=== PATIENT | female | born 1945 | race Caucasian/White ===

== ENCOUNTER 2020-03-05 11:44 | Outpatient (CLI) | payer MEDICARE, SELFPAY ==
--- NOTE | ~2020-03-05 | MMUS_ITS ---
EXAMINATION: MM diagnostic eda BI w tanja, US breast BI limited HISTORY: Follow-up bilateral breast masses TECHNIQUE: Additional 3-D tomosynthesis images of the breasts were performed and synthetic 2-D images were generated. CAD analysis was submitted and interpreted. High resolution bilateral breast ultraso und was performed. COMPARISON: Comparison to multiple prior studies sequentially, with oldest reviewed study dated 09/2014. FINDINGS: MAMMOGRAPHIC FINDINGS: Breast composed of scattered areas of fibroglandular density. There are no suspicious masses, calcifi cations or architectural distortion in either breast to suggest malignancy. ULTRASOUND: Right breast ultrasound: At 6:00 near the nipple there is a 3 mm cyst. Left breast ultrasound: At 1:00 near the nipple there is a 2 mm cyst. 3:00, 3 cm from the nipple, there is a hypoechoic mass which is slightly irregular, likely due to its superficial location. No significant internal vascular ity. This mass measures 4 x 4 x 3 mm. IMPRESSION: 1. Probable benign left breast mass at 3:00, 3 cm from the nipple. 2. Recommend 6 month follow-up left breast ultrasound BI-RADS category 3, probably benign findings. Reviewed, dictated and finalized at location A. IMPRESSION: 1. Probable benign left breast mass at 3:00, 3 cm from the nipple. 2. Recommend 6 month follow-up left breast ultrasound BI-RADS category 3, probably benign findings.
== END 2020-03-05 11:45 | disposition home or self-care (01) ==
PROVIDERS: PCP Family Medicine; Visit Provider Family Medicine
DX: R92.8 Other abnormal and inconclusive findings on diagnostic imaging of breast (principal)
CPT/HCPCS: 76642; 77062; 77066; G0279

== ENCOUNTER 2020-06-25 08:33 | Outpatient (NON) | payer MEDICARE, SELFPAY ==
[2020-06-25 21:43] LABS: SARS-CoV-2 RNA PCR Negative
== END 2020-06-25 08:34 ==
LOC: ANHCOVIDDT 08:35
PROVIDERS: PCP Family Medicine; Visit Provider Family Medicine
DX: R50.9 Fever, unspecified (principal); Z20.828 Contact with and (suspected) exposure to other viral communicable diseases
CPT/HCPCS: 87635; C9803; U0003

== ENCOUNTER 2020-09-10 12:37 | Outpatient (CLI) | payer MEDICARE, SELFPAY ==
--- NOTE | ~2020-09-10 | US_ITS ---
EXAMINATION: US breast LT limited HISTORY: Six-month follow-up for probably benign left breast mass TECHNIQUE: Limited left breast ultrasound is performed. COMPARISON: 03/05/2020, 02/13/2019 FINDINGS: There is a stable 3 mm round, circumscribed, hypoechoic mass with no posterior features or internal vascularity at the 3:00 location 3 cm from the nipple. There has been no suspicious interval change. IMPRESSION: Probably benign left breast mass. Recommend follow-up targeted left breast ultrasound in six months t o document two years of stability. BI-RADS category 3, probably benign findings. Reviewed, dictated and finalized at location A. OLOGIST IMPRESSION: Probably benign left breast mass. Recommend follow-up targeted left breast ultr asound in six months to document two years of stability. BI-RADS category 3, probably benign findings.
== END 2020-09-10 12:38 | disposition home or self-care (01) ==
PROVIDERS: PCP Family Medicine; Visit Provider Family Medicine
DX: R92.8 Other abnormal and inconclusive findings on diagnostic imaging of breast (principal)
CPT/HCPCS: 76642

== ENCOUNTER 2021-03-22 14:06 | Inpatient (IN) | payer MEDICARE, SELFPAY ==
[2021-03-22] VITALS (20 sets, daily range): BP systolic 84–176; BP diastolic 56–124; PULSE 65–140; RESP 18–41; TEMP 36.5–36.7; O2SAT 96–100; BMI 26.2
--- NOTE | ~2021-03-22 | CT_ITS ---
EXAMINATION: CTA chest PE protocol DATE: 03/23/2021 16:00 INDICATION: Shortness of breath TECHNIQUE: Computed tomography angiography (CTA) of the chest was performed with 100 mL Omnipaque-350 intravenous contrast timed to evaluate the pulmonary arteries. Coronal maximum intensity projection 3D-reconstructions were created by the technologist. The dose-length product (DLP) was 212.61 mGy-cm. Automated exposure control and iterative reconstruction technique were employed. COMPARISON: 08/18/2005 FINDINGS: The pulmonary arteries are well-opacified. No pulmonary embolism is identified. There are s cattered nodules in the lungs measuring 2 to 3 mm. Dependent atelectasis is noted in the lower lung z ones. There is no pleural effusion or pneumothorax. Cardiomegaly is noted. No pathologically enlarged thoracic lymph nodes are identified. There is calcified coronary artery atherosclerosis. There is mi ld thoracic spondylosis. IMPRESSION: 1. No pulmonary embolus identified. 2. Scattered 2 to 3 mm nodules, likely infectious or inflammatory. Reviewed, dictated and finalized at location B.
--- NOTE | ~2021-03-22 | XR_ITS ---
XR chest 1V portable DATE: 03/22/2021 14:57 INDICATION: Respiratory failure TECHNIQUE: Portable upright AP chest on 03/22/2021 at 1453 hours COMPARISON: 08/19/2019 PA and lateral chest FINDINGS: Cardiomegaly. There is pulmonary vascular congestion and redistribution. Jabari B-lines con sistent with pulmonary interstitial edema. Mild prominence of the minor fissure consistent with subpl eural edema. There are bilateral perihilar and lower lung zone infiltrates suggesting pulmonary edema . Pneumonia is not excluded. There is minimal if any pleural effusion. No pneumothorax. Diffuse osteopenia. Bilateral chronic rotator cuff atrophy. IMPRESSION: Congestive heart failure and pulmonary edema Reviewed, dictated and finalized at location A.
--- NOTE | ~2021-03-22 | US_ITS ---
EXAMINATION: US venous doppler [facility] EXAM DATE: 03/23/2021 17:39 INDICATION: History of DVT. TECHNIQUE: Multiple grayscale, color flow and Doppler images of the lower extremity deep venous syste ms bilaterally were obtained and reviewed. Comparison is made to prior examination from 01/22/2018. FINDINGS: Right side: The right common femoral, femoral and profunda veins demonstrate normal color flow, respi ratory variation, augmentation and compressibility. Compressibility, color flow confirmed within the right popliteal, posterior tibial, peroneal, and greater saphenous veins. Left side: The left common femoral, femoral and profunda veins demonstrate normal color flow, respira tory variation, augmentation and compressibility. Compressibility, color flow confirmed within the l eft popliteal, posterior tibial, peroneal, and greater saphenous veins. Resolution of previously seen left soleus thrombus. IMPRESSION: 1. No lower extremity deep venous thrombosis bilaterally. Reviewed, dictated and finalized at location A.
[2021-03-22] MEDS: NITROGLYCERIN OINTMENT 1 INCH DOSE TRANSDERM (14:09)
--- NOTE | 2021-03-22 14:14 | ECG_ITS ---
Measurements Intervals [place] Rate: 90 P: 49 VT: 132 QRS: -20 QRSD: 162 T: 136 QT: 442 QTc: 544 Interpretive Statements SINUS RHYTHM POSSIBLE LEFT ATRIAL ENLARGEMENT LEFT BUNDLE BRANCH BLOCK BASELINE ARTIFACT- II, III, AVR, AVF, V2-V6 ABNORMAL ECG Electronically Signed On 03-22-2021 15:18:42 CDT by Tevin Wong D.O.
--- NOTE | 2021-03-22 14:16 | ED.SOB ---
HPI - SOB/Dyspnea General Chief Complaint: Shortness of Breath/Dyspnea Stated Complaint: SOB Time Seen by Provider: 03/22/21 14:13 History of Present Illness HPI Narrative: History limited by medical condition. Sudden onset of shortness of breath this afternoon. Reportedly found to unresponsive with agonal breathing per EMS. Initial EKG at that time read as V-tach. She had electrical cardioversion resulting in sinus tach. On arrival here she denies any pain. She continues to be in respiratory distress on cpap. Related Data Home Medications Medication Instructions Recorded Confirmed atorvastatin 03/22/21 carvedilol 12.5 mg PO BID 03/22/21 levothyroxine 03/22/21 ramipril 2.5 mg PO DAILY 03/22/21 trazodone 03/22/21 warfarin 03/22/21 warfarin 03/22/21 Allergies Allergy/AdvReac Type Severity Reaction Status Date / Time codeine Allergy Unknown Verified 04/03/17 09:43 hydroxyzine Allergy Unknown SEVERE Verified 03/29/17 09:18 HEADACHE lorazepam Allergy Unknown Verified 04/03/17 09:43 NSAIDS (Non-Steroidal Allergy Unknown Verified 04/03/17 09:42 Anti-Inflamma sumatriptan Allergy Unknown FELT Verified 03/29/17 09:18 HORRIBLE tramadol Allergy Unknown Verified 04/03/17 09:42 Review of Systems Review of Systems: ROS unobtainable: Yes unobtainable due to medical condition Constitutional: Constitutional: Denies fever(s) Cardiovascular: Cardiovascular: Denies chest pain PMFSH Past Medical History Medical History Bipolar disorder Surgical History Surgical History History of orthopedic surgery Family History Family History Father Cerebrovascular accident Hypertension Mother Family history of lung disease Family history of diabetes mellitus in first degree relative Family history of coronary artery disease Sibling Family history of diabetes mellitus in first degree relative Other Family history of alcoholism Family history of arthritis Family history of gout Family history of mental disorder Social History Social History Smoking status: Never smoker Alcohol intake: never Gender identity (if verbalized by the patient): Female Exam Const: General: alert Nutritional Appearance: well nourished Other: Severe respiratory distress HENMT: Other: CPAP in place Eyes: Pupils: Equal, round and reactive pupils present Resp: Effort & Inspection: labored and tachypneic Auscultation: rales bilateral Cardio: Rate: tachycardic GI: GI Palp: Yes Soft to palpation and No Tenderness to palpation present (GI) Skin: General skin exam: normal color Neuro: General: moves all extremities and no focal motor deficits Other: responds appropriately Extrem: General: no edema Course Vital Signs Vital signs: Vital Signs Temperature 36.7 C 03/22/21 13:58 Pulse Rate 140 H 03/22/21 13:58 Respiratory Rate 39 H 03/22/21 13:58 Blood Pressure 176/124 H 03/22/21 13:58 Pulse Oximetry 96 03/22/21 13:58 Temperature 36.7 C 03/22/21 13:58 Pulse Rate 75 03/22/21 16:21 Respiratory Rate 25 H 03/22/21 16:21 Blood Pressure 109/80 03/22/21 16:21 Pulse Oximetry 100 03/22/21 16:21 MDM - SOB/Dyspnea MDM Narrative Medical decision making narrative: She appears to have developed acute respiratory failure due to CHF and possibly reported V-tach. Much improved with BIPAP, Nitro, and rate control. Differential Diagnosis Differential diagnosis: Likely congestive heart failure and community acquired pneumonia Medical Records Attestation: I reviewed the patient's medical records. Lab Data Attestation: I reviewed the patient's lab results. Result diagrams: 03/22/21 14:18 03/22/21 14:18 Labs: Lab Results
[2021-03-22] MEDS: dilTIAZem HCl INJ 25 MG/5 ML VIAL 10 MG IV PUSH (14:21)
[2021-03-22] MEDS: ONDANSETRON INJ 4 MG/2 ML VIAL IV PUSH (14:24)
[2021-03-22 14:25] LABS: Basophils Percent Auto 0.3 % (0.2-1.2); Eosinophils Absolute Auto 0.1 K/mm3 (0-0.3); Eosinophils Percent Auto 1.1 % (0-4.4); Hematocrit 46.2 % (37.0-47.0); Hemoglobin 14.5 g/dL (12.0-15.0); Immature Granulocyte Absolute 0.03 K/mm3 (0.00-0.031); Immature Granulocyte Percent A 0.3 % (0-0.5); Lymphocytes Absolute Auto 3.05 K/mm3 (0.9-3.2); Lymphocytes Percent Auto 29.5 % (18.3-44.2); Mean Corpuscular HGB Conc 31.4 g/dl (32-36); Mean Corpuscular Hemoglobin 32.6 pg (26-34); Mean Corpuscular Volume 103.8 fl (80-100); Mean Platelet Volume 9.5 fl (7.4-10.4); Monocytes Absolute Auto 0.8 K/mm3 (0.1-0.6); Monocytes Percent Auto 8.1 % (2.6-8.5); Neutrophils Absolute Auto 6.3 K/mm3 (1.3-6.7); Neutrophils Percent Auto 60.7 % (45.5-73.1); Platelet Count Result 223 k/mm3 (150-375); Red Blood Count 4.45 M/mm3 (4.2-5.4); Red Cell Distribution Width 12.5 % (11.5-14.5); White Blood Count 10.3 K/mm3 (4.5-10.0)
--- NOTE | 2021-03-22 14:28 | ECG_ITS ---
Measurements Intervals [place] Rate: 138 P: 29 RI: 106 QRS: -10 QRSD: 157 T: 129 QT: 310 QTc: 471 Interpretive Statements ATRIAL FLUTTER/TACHYCARDIA WITH RAPID VENTRICULAR RESPONSE LEFT BUNDLE BRANCH BLOCK BASELINE ARTIFACT- II, III, AVF, V1 ABNORMAL ECG Electronically Signed On 03-24-2021 11:40:25 CDT by Tevin Wong D.O.
[2021-03-22 14:31] LABS: Base Excess ABG -5.3 mEq/l (+/-2.0); Fractional Inspired Oxygen 80 %; HCO3 ABG 23.1 mEq/l (22.0-26.0); Modified Allen's Test Pass; Oxyhemoglobin 97.7 % THb (90.0-100.0); PCO2 ABG 56.5 mmHg (35.0-45.0); PO2 ABG 189.1 mmHg (80.0-100.0); PO2 FiO2 Ratio Arterial Blood 2.36 %; Site Drawn RIGHT RADIAL; pH ABG 7.229 (7.350-7.450)
[2021-03-22 14:32] LABS: Device NON-INVASIVE VENT; Non-Invasive Expiratory Pressure 6 CMH2O; Non-Invasive Inspiratory Pressure 12 CMH2O; Non-Invasive Vent Rate 4 /MIN
[2021-03-22 14:34] LABS: INR 1.1; Partial Thromboplastin Time 21.8 SECONDS (22.3-36.8); Prothrombin Time 13.8 Seconds (11.1-14.7)
[2021-03-22 14:35] LABS: Alanine Aminotransferase 33 U/L (4-35); Albumin Level 4.5 g/dL (3.5-5.1); Alkaline Phosphatase 82 U/L (38-126); Anion Gap 12 mmol/L (8-16); Aspartate Amino Transferase 40 U/L (14-36); Bilirubin,Total 0.6 mg/dL (0.2-1.3); Blood Urea Nitrogen 12 mg/dL (7-17); Calcium 9.3 mg/dL (8.4-10.2); Carbon Dioxide 23 mmol/L (22-30); Chloride 103 mmol/L (98-107); Estimated CRCL calculation 34 ml/min; Estimated Glomerular Filt Rate 44; Glucose 262 mg/dL (65-110); Potassium 4.3 mmol/L (3.4-5.0); Sodium 138 mmol/L (137-145)
[2021-03-22] MEDS: FUROSEMIDE INJ 40 MG/4 ML VIAL IV PUSH (14:40)
[2021-03-22 14:49] LABS: NT Pro B Type Natriuretic Pept 3230 pg/mL (5-100); Troponin I 0.048 ng/mL (0.000-0.034)
--- NOTE | 2021-03-22 15:19 | PC.NURSE ---
Nitro paste removed per EDP verbal order due to hypotension
[2021-03-22] MEDS: ACETAMINOPHEN 500 MG TABLET 1000 MG PO (15:29)
[2021-03-22 18:16] LABS: Troponin I 0.306 ng/mL (0.000-0.034)
--- NOTE | 2021-03-22 20:26 | PM.IMHP ---
H&P: HPI History of Present Illness Date/Time: 03/22/21 20:26Thichio is a 75-year-old female patient who has a past medical history of cardiomyopathy with congestive heart failure. The patient had a sudden onset of shortness of breath this afternoon. Patient was reportedly unresponsive with agonal breathing per EMS. Initially the EKG was read as V-tach. The patient had electrical cardioversion resulting in sinus tachycardia. On arrival to the emergency room she did have any complaints of pain she complained of being short of breath. The patient was placed on a CPAP machine. Her chest x-ray was read as congestive heart failure and pulmonary edema. The patient was given nitroglycerin, diltiazem, Zofran, Lasix, Tylenol and Zofran. Arterial blood gases pH 7.2-9 PO2 was 189 and pCO2 was 56.5. Her blood sugar was 262 and her creatinine 1.2. The patient is being admitted to IMU as observation status on the date of service this is 03/22/2021. Chief Complaint: Respiratory distress Review of Systems Review of Systems: All systems reviewed & are unremarkable except as noted in HPI and below Constitutional: Constitutional: Reports as per HPI and Reports no additional constitutional complaints Eyes: Eyes: Reports as per HPI and Reports no additional eye complaints ENT: Reports system reviewed and no additional complaints, except as documented and Reports Normal hearing present Cardiovascular: Cardiovascular: Reports no additional cardiovascular complaints Respiratory: Respiratory: Reports no additional respiratory complaints and Reports no additional respiratory complaints Gastrointestinal: Gastrointestinal: Reports as per HPI and Reports no additional gastrointestinal complaints Musculoskeletal: Musculoskeletal: Reports no additional musculoskeletal complaints Integumentary/Breasts: Skin/Breast: Reports system reviewed and no additional complaints, except as docu and Reports as per HPI Neurologic: Reports system reviewed and no additional complaints, except as documented, Reports as per HPI and Reports Normal hearing present Psychiatric: Psychiatric: Reports no additional psychiatric complaints and Reports as per HPI Endocrine: Endocrine: Reports no additional endocrine complaints Hematologic/Lymphatic: Hematologic/Lymphatic: Reports no additional hematologic/lymphatic complaints Allergic/Immunologic: Allergic/Immunologic: Reports no additional allergic/immunologic complaints [facility] Past Medical History Medical History (Updated 03/22/21 @ 20:49 by Beulah Go NP) Bipolar disorder Cardiomyopathy History of DVT (deep vein thrombosis) Hyperlipidemia Hypertension Hypothyroidism TIA (transient ischemic attack) Surgical History Surgical History (Updated 03/22/21 @ 20:34 by Beulah Go NP) H/O cardiac catheterization History of knee replacement bilaterally History of orthopedic surgery History of partial hysterectomy S/P colon resection S/P rotator cuff repair left shoulder Family History Family History Father Cerebrovascular accident Hypertension Mother Family history of lung disease Family history of diabetes mellitus in first degree relative Family history of coronary artery disease Sibling Family history of diabetes mellitus in first degree relative Other Family history of alcoholism Family history of arthritis Family history of gout Family history of mental disorder Social History Social History (Updated 03/22/21 @ 20:35 by Beulah Go NP) Social History: the patient is . The patient has 1 child. She is retired from the [employer]. The patient is listed as a full code and her child is a durable power health care attorney for healthcare. The patient's lifelong nonsmoker. She does not use any alcohol marijuana or illicit drugs. Smoking status: Never smoker Alcohol intake: never Gender identity (if verbalized by the patient):
[2021-03-22 21:07] LABS: INR 1.1; Prothrombin Time 14.3 Seconds (11.1-14.7)
[2021-03-22 21:27] LABS: Hemoglobin A1C 5.2 % (<5.7)
[2021-03-22] MEDS: ACETAMINOPHEN 325 MG TABLET 650 MG PO (22:13)
[2021-03-22] MEDS: traZODone HCL 50 MG TABLET 150 MG PO (22:14)
[2021-03-22] MEDS: clonazePAM (*CRX) 0.5 MG TABLET 1 MG PO (22:14)
[2021-03-22] MEDS: carvediloL 12.5 MG TABLET PO (22:14)
[2021-03-22] MEDS: WARFARIN (*PBKC) 3 MG TABLET PO (22:14)
[2021-03-22] MEDS: ATORVASTATIN 40 MG TABLET PO (22:14)
[2021-03-22] MEDS: ENOXAPARIN 80 MG/0.8 ML SYRINGE 71 MG SUB-Q (22:15)
[2021-03-22 23:17] LABS: Troponin I 0.223 ng/mL (0.000-0.034)
[2021-03-23] VITALS (17 sets, daily range): BP systolic 102–140; BP diastolic 51–68; PULSE 50–80; RESP 13–18; TEMP 36.2–36.9; O2SAT 93–100
--- NOTE | 2021-03-23 | ECHO_ITS ---
Patient Info Name: Yi Martino Age: 75 years : 1945 Gender: Female Ht: 65 in Wt: 157 lbs BSA: 1.82 m2 HR: 54 bpm BP: 102 / 51 mmHg Technical Quality: Good Exam Date: 03/23/2021 8:28 AM Exam Location: [facility] Patient Status: Inpatient Admit Date: 03/22/2021 Staff Ordering Physician: Beulah Go NP Asphalt Surface Heater Operator: García De La Rosa RDCS, RT Attending Provider: Vinny Santamaria MD Referring Physician: Abbi BARKER; Exam Type: CA echo doppler color flow Study Info Indications I50.9 - Heart failure, unspecified Complete two-dimensional, color flow and Doppler transthoracic echocardiogram is performed. Strain analysis performed. Summary 1. Complete two-dimensional, color flow and Doppler transthoracic echocardiogram is performed. 2. Mild LV enlargement, moderate LVH; severe global LV systolic dysfunction, ejection fraction about 20-25%; grade 1 diastolic dysfunction with elevated filling pressures. Mild left atrial enlargement. Mild mitral annular calcification, [id number] mitral regurgitation. Aortic valve not well visualized, mild aortic stenosis, calculated valve area 1.8 cm2. Mild TR, mild pulmonary hypertension, RVSP 36 mmHg. Left Ventricle Left ventricular chamber dimension is mildly enlarged. Left ventricular systolic function is severely reduced, estimated at 20-25%. There is moderately increased left ventricular wall thickness. The left ventricular diastolic function is grade I diastolic dysfunction. E/e' 19.0 is elevated. Right Ventricle Right ventricular chamber dimension is normal. Right ventricular systolic function is normal. Left Atria Left atrial chamber dimension is mildly enlarged. Right Atria Right atrial chamber dimension is normal. Aortic Valve The aortic valve is not well visualized. There is mild aortic valve stenosis with a peak velocity of 150 cm/s, mean gradient of 4 mmHg, and aortic valve area of 1.8 cm2. Pulmonic Valve The pulmonic valve is not well visualized. Mitral Valve The mitral valve has normal leaflets. There is mild to moderate mitral valve regurgitation. The mitral valve annulus is mildly calcified. Tricuspid Valve The tricuspid valve leaflets are normal. There is mild tricuspid valve regurgitation. Mild pulmonary hypertension, estimated pulmonary arterial systolic pressure is 36 mmHg. Pericardium/Pleural The pericardium appears epicardial fat pad. Inferior Vena Cava Dilated inferior vena cava with <50% collapse upon inspiration consistent with elevated right atrial pressure, 10 mmHg. Left Ventricular Outflow Tract Name Value Normal LVOT 2D LVOT Diameter 2.0 cm LVOT Doppler LVOT Peak Gradient 3 mmHg LVOT Mean Gradient 2 mmHg LVOT VTI 18 cm LVOT VTI/AV VTI Ratio 0.6 LVOT Stroke Volume 58 ml LVOT CO 3.4 l/min LVOT CI 1.9 l/min/m2 Mitral Valve
[2021-03-23 04:29] LABS: Basophils Percent Auto 0.1 % (0.2-1.2); Eosinophils Absolute Auto 0.1 K/mm3 (0-0.3); Eosinophils Percent Auto 1.1 % (0-4.4); Hematocrit 38.8 % (37.0-47.0); Hemoglobin 12.7 g/dL (12.0-15.0); Immature Granulocyte Absolute 0.01 K/mm3 (0.00-0.031); Immature Granulocyte Percent A 0.1 % (0-0.5); Lymphocytes Percent Auto 34.2 % (18.3-44.2); Mean Corpuscular HGB Conc 32.7 g/dl (32-36); Mean Corpuscular Hemoglobin 33.2 pg (26-34); Mean Corpuscular Volume 101.3 fl (80-100); Mean Platelet Volume 9.2 fl (7.4-10.4); Monocytes Absolute Auto 0.9 K/mm3 (0.1-0.6); Monocytes Percent Auto 11.6 % (2.6-8.5); Neutrophils Absolute Auto 3.9 K/mm3 (1.3-6.7); Neutrophils Percent Auto 52.9 % (45.5-73.1); Platelet Count Result 174 k/mm3 (150-375); Red Blood Count 3.83 M/mm3 (4.2-5.4); Red Cell Distribution Width 12.6 % (11.5-14.5); White Blood Count 7.3 K/mm3 (4.5-10.0)
[2021-03-23 04:40] LABS: Alanine Aminotransferase 28 U/L (4-35); Albumin Level 3.7 g/dL (3.5-5.1); Alkaline Phosphatase 60 U/L (38-126); Anion Gap 8 mmol/L (8-16); Aspartate Amino Transferase 29 U/L (14-36); Bilirubin,Total 0.6 mg/dL (0.2-1.3); Blood Urea Nitrogen 14 mg/dL (7-17); Calcium 9.2 mg/dL (8.4-10.2); Carbon Dioxide 30 mmol/L (22-30); Chloride 100 mmol/L (98-107); Estimated CRCL calculation 33 ml/min; Estimated Glomerular Filt Rate 44; Glucose 90 mg/dL (65-110); Lactate Dehydrogenase 333 U/L (313-618); Potassium 3.5 mmol/L (3.4-5.0); Sodium 138 mmol/L (137-145)
[2021-03-23 04:41] LABS: Lactic Acid Reflex 0.8 mmol/L (0.7-2.1)
[2021-03-23 04:55] LABS: INR 1.2; Prothrombin Time 15.3 Seconds (11.1-14.7)
[2021-03-23] MEDS: LEVOTHYROXINE SODIUM 112 MCG TABLET PO (06:42)
[2021-03-23] MEDS: FUROSEMIDE INJ 40 MG/4 ML VIAL IV PUSH (09:48)
[2021-03-23] MEDS: clonazePAM (*CRX) 0.5 MG TABLET 1 MG PO ×2 (09:48→20:48)
[2021-03-23] MEDS: carvediloL 12.5 MG TABLET PO ×2 (09:48→20:49)
[2021-03-23] MEDS: ENOXAPARIN 80 MG/0.8 ML SYRINGE 71 MG SUB-Q ×2 (14:38→20:44)
[2021-03-23] MEDS: ACETAMINOPHEN 325 MG TABLET 650 MG PO (14:38)
--- NOTE | 2021-03-23 14:49 | PM.IMPN ---
Progress Note: A&P Assessment and Plan (1) Cardiac arrest: Code(s): I46.9 - Cardiac arrest, cause unspecified Status: Acute Assessment and Plan: Patient states she has been having episodes of SOB but felt related to the weather/humidity. On the day of admission, patient developed pre-syncope symptoms, diaphoresis and SOB. She tried to call EMS but that is the last she remembers. She awoke lying on her bed. Her son called EMS at 1319 and they arrived at 1328. Patietn was unresponsive with agonal respirations and cyanotic. No pulse and monitor showing VTach. She underwent cardioversion with 200J. She became alert and responsive and GCS improved from 6 to 11. Given this history, her LBBB and that she has NICMP, suspect she did have a malignant rhythm resulting in her symptoms. Echo showing EF 20-25%, Grade I diastolic dysfunction. Cardiology consulted. Probably would benefit from implantable defibrillator. Continue telemetry. CTA negative for PE. (2) Elevated troponin: Code(s): R77.8 - Other specified abnormalities of plasma proteins Status: Acute Assessment and Plan: Patient's troponin was elevated and peaked at 0.306. No complaints of chest pain. She is known to have clean coronaries by [facility]. Elevated Trop related to the VTach and shock. Check for PE. Continue Lovenox (3) Acute respiratory failure with hypoxia and hypercapnia: Code(s): J96.01 - Acute respiratory failure with hypoxia; J96.02 - Acute respiratory failure with hypercapnia Status: Acute Assessment and Plan: Patietn with SOB but felt related to the VTach. ABG on admission 7./189 NIV. CXR showing CHF and pulmonary edema. Improved. Will wean off BiPAP. (4) CHF (congestive heart failure): Qualifiers: Heart failure chronicity: acute on chronic Heart failure type: combined systolic and diastolic Qualified Code(s): I50.43 - Acute on chronic combined systolic (congestive) and diastolic (congestive) heart failure Code(s): I50.9 - Heart failure, unspecified Status: Acute Assessment and Plan: CXR showing CHF and pulmonary edema. BNP 3230. Unclear if she was in CHF resulting in the respiratory failure and extremis or if the VTach caused the pulmonary edema. Lasix IV started and lung exam improved. Continue to monitor. (5) Hypertension: Qualifiers: Hypertension type: primary hypertension Qualified Code(s): I10 - Essential (primary) hypertension Code(s): I10 - Essential (primary) hypertension Status: Chronic Assessment and Plan: BP 176/124 on admission related to the recent VTach and shock. BP did drop to 84/64 but since, BP has been stable. Ramipril and Coreg have been resumed. Monitor closely (6) Bipolar disorder: Code(s): F31.9 - Bipolar disorder, unspecified Status: Chronic Assessment and Plan: Mood stable. Continue with home Viibryd and clonazepam (7) Hypothyroidism: Qualifiers: Hypothyroidism type: acquired Qualified Code(s): E03.9 - Hypothyroidism, unspecified Code(s): E03.9 - Hypothyroidism, unspecified Status: Chronic Assessment and Plan: TSH normal. Continue with levothyroxine (8) Hyperlipidemia: Code(s): E78.5 - Hyperlipidemia, unspecified Status: Chronic Assessment and Plan: LFTs okay. Continue with atorvastatin (9) Elevated blood sugar: Code(s): R73.9 - Hyperglycemia, unspecified Status: Acute Assessment and Plan: Glucose 212 felt related to the VTach arrest. A1c 5.2. (10) Cardiomyopathy: Code(s): I42.9 - Cardiomyopathy, unspecified Status: Chronic Assessment and Plan: As above. Cardiology has been consulted. (11) History of DVT (deep vein thrombosis): Code(s): Z86.718 - Personal history of other venous thrombosis and embolism Status: Inactive Assessment and Plan
--- NOTE | 2021-03-23 15:06 | PM.CNCAR ---
Assessment and Plan Assessment and plan (1) Cardiac arrest: Code(s): I46.9 - Cardiac arrest, cause unspecified Status: Acute Assessment and Plan: status post cardiac arrest by EMS description ventricular tachycardia with responsiveness promptly status post defibrillation and return of sinus tachycardia. I do not have documented rhythm strip confirmation of ventricular tachycardia nor associated heart rate yet her response to defibrillation and her severe LV dysfunction by echo EF 20-25% strongly corroborates ventricular arrhythmia. Therefore, given severe LV dysfunction consistent with known nonischemic cardiomyopathy and aborted sudden cardiac event presumably secondary to ventricular tachycardia I feel patient will be best served with ICD implantation. Discussed options and anticipated transfer to outside hospital such as [facility] with electrophysiology which would be my preference as she declines transferred to [facility]. We discussed alternatives such as life vest with outpatient referral for ICD, however, I recommend she transfer on an inpatient basis. I would hold warfarin in anticipation for this with continuation of subcutaneous enoxaparin as bridging 1 milligram/kilogram subcutaneous q.12 hours. Pt is in agreement with plan of care. Magnesium 2.0, potassium 4.3 presentation, 3.5 today. Supplement to keep potassium around 4.0. TSH within normal limits. Continue BB, BARBARA-I. If recurrent ventricular arrhythmia, Amiodarone. Discuss with Dr. Ceja as this is his personal patient plan of care. (2) Cardiomyopathy: Code(s): I42.9 - Cardiomyopathy, unspecified Status: Chronic Assessment and Plan: Continue carvedilol 12.5 mg twice daily, Ramipril 2.5 mg daily. Pt was on Lasix 40mg po daily per office note 02/2020. (3) Elevated troponin: Code(s): R77.8 - Other specified abnormalities of plasma proteins Status: Acute Assessment and Plan: Type 2 infarction, normal coronary anatomy by left heart catheterization 2018. Troponin elevation secondary to presumed VT arrest, defibrillation and respiratory distress at presentation Not acute coronary syndrome. Patient hypertensive post defibrillation. (4) Left bundle branch block: Code(s): I44.7 - Left bundle-branch block, unspecified Status: Acute Assessment and Plan: Chronic LBBB, wide QRS. may consider biventricular ICD. (5) Acute respiratory failure with hypoxia and hypercapnia: Code(s): J96.01 - Acute respiratory failure with hypoxia; J96.02 - Acute respiratory failure with hypercapnia Status: Acute Assessment and Plan: CPAP support as warranted. Managed by primary service. Clinically, she does not appear to be in acute decompensated heart failure and I suspect will be able to wean BiPAP fairly promptly. Continue close observation. May transition back to po LAsix in AM depending upon clinical status. (6) Subtherapeutic international normalized ratio (INR): Code(s): R79.1 - Abnormal coagulation profile Status: Acute Assessment and Plan: Subtherapeutic INR 1.2 at presentation, history of DVT. Evaluation for pulmonary embolism with CT angiogram of the chest pending. Although less likely to cause VT arrest prudent to exclude pulmonary embolism. (7) Hypertension: Qualifiers: Hypertension type: primary hypertension Qualified Code(s): I10 - Essential (primary) hypertension Code(s): I10 - Essential (primary) hypertension Status: Chronic Assessment and Plan: Elevated presentation, currently reasonable control overall. Continue medical therapy. (8) Hyperlipidemia: Code(s): E78.5 - Hyperlipidemia, unspecified Status: Chronic Assessment and Plan: Remains on atorvastatin 40 mg at bedtime. History of Present Illness History of Present Illness Consult date/time: date of service:
[2021-03-23] MEDS: POTASSIUM CHLORIDE 20 MEQ TABLET 40 MEQ PO (17:40)
--- NOTE | 2021-03-23 18:30 | PHAR ---
The patient's home meds of Vraylar (cariprazine) 3mg and Viibryd (vilazodone) 20mg (peach tab) have been verified.
[2021-03-23] MEDS: ATORVASTATIN 40 MG TABLET PO (20:48)
[2021-03-23] MEDS: traZODone HCL 50 MG TABLET 150 MG PO (20:48)
[2021-03-23] MEDS: FAMOTIDINE 20 MG TABLET PO (22:43)
[2021-03-24] VITALS (14 sets, daily range): BP systolic 122–131; BP diastolic 45–65; PULSE 51–78; RESP 18–19; TEMP 36.8–37.1; O2SAT 93–100
[2021-03-24 04:51] LABS: Hematocrit 41.3 % (37.0-47.0); Mean Corpuscular HGB Conc 31.5 g/dl (32-36); Mean Corpuscular Hemoglobin 32.3 pg (26-34); Mean Corpuscular Volume 102.5 fl (80-100); Mean Platelet Volume 9.3 fl (7.4-10.4); Platelet Count Result 174 k/mm3 (150-375); Red Blood Count 4.03 M/mm3 (4.2-5.4); Red Cell Distribution Width 12.5 % (11.5-14.5); White Blood Count 7.5 K/mm3 (4.5-10.0)
[2021-03-24 05:03] LABS: INR 1.3; Prothrombin Time 16.1 Seconds (11.1-14.7)
[2021-03-24 05:06] LABS: Albumin Level 3.9 g/dL (3.5-5.1); Anion Gap 4 mmol/L (8-16); Blood Urea Nitrogen 15 mg/dL (7-17); Calcium 9.4 mg/dL (8.4-10.2); Carbon Dioxide 30 mmol/L (22-30); Chloride 105 mmol/L (98-107); Estimated CRCL calculation 35 ml/min; Estimated Glomerular Filt Rate 48; Glucose 92 mg/dL (65-110); Phosphorus 3.6 mg/dL (2.5-4.5); Potassium 4.4 mmol/L (3.4-5.0); Sodium 139 mmol/L (137-145)
[2021-03-24] MEDS: LEVOTHYROXINE SODIUM 112 MCG TABLET PO (06:10)
[2021-03-24] MEDS: carvediloL 12.5 MG TABLET PO ×2 (08:27→20:35)
[2021-03-24] MEDS: clonazePAM (*CRX) 0.5 MG TABLET 1 MG PO ×2 (08:28→20:29)
[2021-03-24] MEDS: ENOXAPARIN 80 MG/0.8 ML SYRINGE 71 MG SUB-Q ×2 (08:29→20:30)
[2021-03-24] MEDS: FUROSEMIDE INJ 40 MG/4 ML VIAL IV PUSH (08:30)
--- NOTE | 2021-03-24 13:28 | PM.PNCARD ---
Progress Note: A&P Assessment and Plan (1) Cardiac arrest: Code(s): I46.9 - Cardiac arrest, cause unspecified Status: Acute Assessment and Plan: status post cardiac arrest by EMS description ventricular tachycardia with responsiveness promptly status post defibrillation and return of sinus tachycardia. I do not have documented rhythm strip confirmation of ventricular tachycardia nor associated heart rate yet her response to defibrillation and her severe LV dysfunction by echo EF 20-25% strongly corroborates ventricular arrhythmia. Therefore, given severe LV dysfunction consistent with known nonischemic cardiomyopathy and aborted sudden cardiac event presumably secondary to ventricular tachycardia I feel patient will be best served with ICD implantation. Discussed options and anticipated transfer to outside hospital such as [facility] with electrophysiology which would be my preference as she declines transferred to [facility]. We discussed alternatives such as life vest with outpatient referral for ICD, however, I recommend she transfer on an inpatient basis. I would hold warfarin in anticipation for this with continuation of subcutaneous enoxaparin as bridging 1 milligram/kilogram subcutaneous q.12 hours. Pt is in agreement with plan of care. Discussed plan of care with patient again today. She continues to be in agreement with transfer to [facility] for EP service/ICD implantation. However, she is concerned she will not have anyone to bring her home from the hospital as the only person available to pick her up is going out of town. She is going to check with another family member for a ride. In the meantime, will send order for LifeVest in case we pursue outpatient EP referral Continue BB, BARBARA-I. If recurrent ventricular arrhythmia, Amiodarone. Monitor electrolytes, daily BMP, magnesium Discuss with Dr. Ceja as this is his personal patient plan of care. (2) Cardiomyopathy: Code(s): I42.9 - Cardiomyopathy, unspecified Status: Chronic Assessment and Plan: Continue carvedilol 12.5 mg twice daily, Ramipril 2.5 mg daily. Pt was on Lasix 40mg po daily per office note 02/2020. (3) Elevated troponin: Code(s): R77.8 - Other specified abnormalities of plasma proteins Status: Acute Assessment and Plan: Type 2 infarction, normal coronary anatomy by left heart catheterization 2017. Troponin elevation secondary to presumed VT arrest, defibrillation and respiratory distress at presentation Not acute coronary syndrome. Patient hypertensive post defibrillation. (4) Left bundle branch block: Code(s): I44.7 - Left bundle-branch block, unspecified Status: Acute Assessment and Plan: Chronic LBBB, wide QRS. may consider biventricular ICD. (5) Acute respiratory failure with hypoxia and hypercapnia: Code(s): J96.01 - Acute respiratory failure with hypoxia; J96.02 - Acute respiratory failure with hypercapnia Status: Acute Assessment and Plan: CPAP support as warranted. Managed by primary service. Clinically, she does not appear to be in acute decompensated heart failure and I suspect will be able to wean BiPAP fairly promptly. Continue close observation. May transition back to po LAsix in AM depending upon clinical status. (6) Subtherapeutic international normalized ratio (INR): Code(s): R79.1 - Abnormal coagulation profile Status: Acute Assessment and Plan: Subtherapeutic INR 1.2 at presentation, history of DVT. Evaluation for pulmonary embolism with CT angiogram of the chest pending. Although less likely to cause VT arrest prudent to exclude pulmonary embolism. (7) Hypertension: Qualifiers: Hypertension type: primary hypertension Qualified Code(s): I10 - Essential (primary) hypertension Code(s): I10 - Essential (primary) hypertension Status: Chronic Assessment and Plan:
--- NOTE | 2021-03-24 16:18 | PM.IMPN ---
Progress Note: A&P Assessment and Plan (1) Cardiac arrest: Code(s): I46.9 - Cardiac arrest, cause unspecified Status: Acute Assessment and Plan: Patient states she has been having episodes of SOB but felt related to the weather/humidity. On the day of admission, patient developed pre-syncope symptoms, diaphoresis and SOB. She tried to call EMS but that is the last she remembers. She awoke lying on her bed. Her son called EMS at 1319 and they arrived at 1328. Patient was unresponsive with agonal respirations and cyanotic. No pulse and monitor showing VTach. She underwent cardioversion with 200J. She became alert and responsive and GCS improved from 6 to 11. Given this history, her LBBB and that she has NICMP, suspect she did have a malignant rhythm resulting in her symptoms. Echo showing EF 20-25%, Grade I diastolic dysfunction. Cardiology consulted and plan for implantable defibrillator. Continue telemetry. (2) Acute respiratory failure with hypoxia and hypercapnia: Code(s): J96.01 - Acute respiratory failure with hypoxia; J96.02 - Acute respiratory failure with hypercapnia Status: Acute Assessment and Plan: Patient with resp failure felt related to the VTach. ABG on admission 7.23/56/189 NIV. CXR showing CHF and pulmonary edema. Improved. Able to wean off BiPAP. (3) Elevated troponin: Code(s): R77.8 - Other specified abnormalities of plasma proteins Status: Acute Assessment and Plan: Patient's troponin was elevated and peaked at 0.306. No complaints of chest pain. She is known to have clean coronaries by [facility]. Elevated Trop related to the VTach and shock c/w nonischemic myocardial injury. CTA negative for PE. LE venous doppler negative for DVT. Continue Lovenox. (4) CHF (congestive heart failure): Qualifiers: Heart failure chronicity: acute on chronic Heart failure type: combined systolic and diastolic Qualified Code(s): I50.43 - Acute on chronic combined systolic (congestive) and diastolic (congestive) heart failure Code(s): I50.9 - Heart failure, unspecified Status: Acute Assessment and Plan: CXR showing CHF and pulmonary edema. BNP 3230. Unclear if she was in CHF resulting in the respiratory failure and extremis or if the VTach caused the pulmonary edema. Lasix IV started with clinical improvement. Continue to monitor. (5) Hypertension: Qualifiers: Hypertension type: primary hypertension Qualified Code(s): I10 - Essential (primary) hypertension Code(s): I10 - Essential (primary) hypertension Status: Chronic Assessment and Plan: BP 176/124 on admission related to the recent VTach and shock. BP did drop to 84/64 but since, BP has been stable. Continue Ramipril and Coreg. Monitor closely (6) Bipolar disorder: Code(s): F31.9 - Bipolar disorder, unspecified Status: Chronic Assessment and Plan: Mood stable. Continue with home Viibryd and clonazepam (7) Hypothyroidism: Qualifiers: Hypothyroidism type: acquired Qualified Code(s): E03.9 - Hypothyroidism, unspecified Code(s): E03.9 - Hypothyroidism, unspecified Status: Chronic Assessment and Plan: TSH normal. Continue with levothyroxine (8) Hyperlipidemia: Code(s): E78.5 - Hyperlipidemia, unspecified Status: Chronic Assessment and Plan: LFTs okay. Continue with atorvastatin (9) Elevated blood sugar: Code(s): R73.9 - Hyperglycemia, unspecified Status: Acute Assessment and Plan: Glucose 212 felt related to the VTach arrest. A1c 5.2. (10) History of DVT (deep vein thrombosis): Code(s): Z86.718 - Personal history of other venous thrombosis and embolism Status: Inactive Assessment and Plan: She patient has a hx of DVT and also with CMP. INR is subtherapeutic therefore patient being bridged with subcu Lovenox. Coumadi
[2021-03-24] MEDS: traZODone HCL 50 MG TABLET 150 MG PO (20:29)
[2021-03-24] MEDS: ATORVASTATIN 40 MG TABLET PO (20:30)
[2021-03-25] VITALS (8 sets, daily range): BP systolic 126–128; BP diastolic 57–68; PULSE 49–68; RESP 17–20; TEMP 36.4–36.9; O2SAT 94–99
[2021-03-25] MEDS: ACETAMINOPHEN 325 MG TABLET 650 MG PO (01:32)
[2021-03-25 05:47] LABS: Anion Gap 9 mmol/L (8-16); Blood Urea Nitrogen 18 mg/dL (7-17); Calcium 9.6 mg/dL (8.4-10.2); Carbon Dioxide 31 mmol/L (22-30); Chloride 97 mmol/L (98-107); Estimated CRCL calculation 33 ml/min; Estimated Glomerular Filt Rate 44; Glucose 94 mg/dL (65-110); Phosphorus 4.4 mg/dL (2.5-4.5); Potassium 3.6 mmol/L (3.4-5.0); Sodium 137 mmol/L (137-145)
[2021-03-25] MEDS: LEVOTHYROXINE SODIUM 112 MCG TABLET PO (05:49)
[2021-03-25] MEDS: ENOXAPARIN 80 MG/0.8 ML SYRINGE 71 MG SUB-Q (08:36)
[2021-03-25] MEDS: FUROSEMIDE INJ 40 MG/4 ML VIAL IV PUSH (08:36)
[2021-03-25] MEDS: carvediloL 12.5 MG TABLET PO (08:37)
[2021-03-25] MEDS: clonazePAM (*CRX) 0.5 MG TABLET 1 MG PO (08:40)
--- NOTE | 2021-03-25 08:46 | P.CDI_ITS ---
CDI Query Clarification Request -Troponin levels 0.048, 0.306, 0.223 -Type 2 infarction, Troponin elevation secondary to presumed VT arrest, defibrillation and respiratory distress at presentation Not acute coronary syndrome and patient denied chest pain.documented by cardiology -You have documented, elevated troponin and Patient's troponin was elevated and peaked at 0.306. No complaints of chest pain. She is known to have clean coronaries by [facility]. Elevated Trop related to the VTach and shock. Please clarify diagnosis: * Type 2 infarction * Non-ischemic myocardial injury * Unable to determine <Paris Garcia RN - Last Filed: 03/25/21 08:52>
--- NOTE | 2021-03-25 08:56 | PM.PNCARD ---
Progress Note: A&P Assessment and Plan (1) Cardiac arrest: Code(s): I46.9 - Cardiac arrest, cause unspecified Status: Acute Assessment and Plan: Status post cardiac arrest by EMS description ventricular tachycardia with responsiveness promptly status post defibrillation and return of sinus tachycardia. I do not have documented rhythm strip confirmation of ventricular tachycardia nor associated heart rate yet her response to defibrillation and her severe LV dysfunction by echo EF 20-25% strongly corroborates ventricular arrhythmia. Therefore, given severe LV dysfunction consistent with known nonischemic cardiomyopathy and aborted sudden cardiac event presumably secondary to ventricular tachycardia I feel patient will be best served with ICD implantation. She has been fitted for LifeVest and referral to EP at [facility] has been sent. Discussed plan with patient again this morning. Answered all questions to patient's satisfaction No further ventricular arrhythmias noted on telemetry. Continue BB, BARBARA-I. KCL 20 mEq x1 for K+ 3.6. Goal to keep K+ close to 4.0. BMP, magnesium Monday (2) Cardiomyopathy: Code(s): I42.9 - Cardiomyopathy, unspecified Status: Chronic Assessment and Plan: Continue carvedilol 12.5 mg twice daily, Ramipril 2.5 mg daily. Pt was on Lasix 40mg po daily per office note 02/2020. (3) Elevated troponin: Code(s): R77.8 - Other specified abnormalities of plasma proteins Status: Acute Assessment and Plan: Type 2 infarction, normal coronary anatomy by left heart catheterization 2017. Troponin elevation secondary to presumed VT arrest, defibrillation and respiratory distress at presentation Not acute coronary syndrome. Patient hypertensive post defibrillation. (4) Left bundle branch block: Code(s): I44.7 - Left bundle-branch block, unspecified Status: Acute Assessment and Plan: Chronic LBBB, wide QRS. may consider biventricular ICD - OP referral to EP has been placed. (5) Acute respiratory failure with hypoxia and hypercapnia: Code(s): J96.01 - Acute respiratory failure with hypoxia; J96.02 - Acute respiratory failure with hypercapnia Status: Acute Assessment and Plan: CPAP support as warranted. Managed by primary service. Clinically, she does not appear to be in acute decompensated heart failure and I suspect will be able to wean BiPAP fairly promptly. Continue close observation. Shifted to oral lasix (6) Subtherapeutic international normalized ratio (INR): Code(s): R79.1 - Abnormal coagulation profile Status: Acute Assessment and Plan: Subtherapeutic INR 1.2 at presentation, history of DVT. CT negative for PE. Warfarin should be resumed upon discharge. INR Monday. (7) Hypertension: Qualifiers: Hypertension type: primary hypertension Qualified Code(s): I10 - Essential (primary) hypertension Code(s): I10 - Essential (primary) hypertension Status: Chronic Assessment and Plan: At goal. (8) Hyperlipidemia: Code(s): E78.5 - Hyperlipidemia, unspecified Status: Chronic Assessment and Plan: Remains on atorvastatin 40 mg at bedtime. Subjective Date/time seen: 03/25/21 08:56 Cardiology follow-up for CHF, VT arrest Date of service 03/25/2021: She is feeling well today. She says that she is tired although she slept well last night. She denies any palpitations, chest pain, shortness of breath. She has been fitted for her life vest and is currently wearing it. Plan is for discharge home today with outpatient referral to electrophysiology at [facility]. Review of Systems Review of Systems: All systems reviewed & are unremarkable except as noted in HPI and below Constitutional: Constitutional: Reports as per HPI, Reports no additional constitutional complaints, Reports fatigue and Reports headache(s) Eyes: Eyes: Reports
--- NOTE | 2021-03-25 10:43 | PM.DS ---
DS: Admitting Diagnosis Admitting Diagnosis Admitting Diagnosis: VTach Arrest DS: Discharge Diagnosis Discharge Diagnosis (1) Cardiac arrest: Code(s): I46.9 - Cardiac arrest, cause unspecified Status: Acute Assessment and Plan: Patient states she has been having episodes of SOB that she felt related to the weather/humidity. On the day of admission, patient developed pre-syncope symptoms, diaphoresis and SOB. She tried to call EMS but that is the last she remembers. She awoke lying on her bed. Her son called EMS at 1319 and they arrived at 1328. Patient was unresponsive with agonal respirations and cyanotic. No pulse and monitor showing VTach. She underwent cardioversion with 200J. She became alert and responsive and GCS improved from 6 to 11. Given this history, her LBBB and that she has NICMP, suspect she did have a malignant rhythm resulting in her symptoms. Echo showing EF 20-25%, Grade I diastolic dysfunction. No further episodes by tele. Cardiology consulted with plan for her to be evaluated for an implantable defibrillator. Home with [facility] today with EP evaluation within the week. (2) Elevated troponin: Code(s): R77.8 - Other specified abnormalities of plasma proteins Status: Acute Assessment and Plan: Patient's troponin was elevated and peaked at 0.306. No complaints of chest pain. She is known to have clean coronaries by [facility]. CTA negative for PE. LE venous doppler negative for DVT. Elevated Trop related to the VTach and shock c/w nonischemic myocardial injury. (3) Acute respiratory failure with hypoxia and hypercapnia: Code(s): J96.01 - Acute respiratory failure with hypoxia; J96.02 - Acute respiratory failure with hypercapnia Status: Acute Assessment and Plan: Patient with resp failure felt related to the VTach. ABG on admission 7./189 NIV. CXR showing CHF and pulmonary edema. Improved with lasix. Able to wean off BiPAP to O2 nasal cannula and ultmately to room air. (4) CHF (congestive heart failure): Qualifiers: Heart failure chronicity: acute on chronic Heart failure type: combined systolic and diastolic Qualified Code(s): I50.43 - Acute on chronic combined systolic (congestive) and diastolic (congestive) heart failure Code(s): I50.9 - Heart failure, unspecified Status: Acute Assessment and Plan: CXR showing CHF and pulmonary edema. BNP 3230. Unclear if she was in CHF resulting in the respiratory failure and extremis or if the VTach caused the pulmonary edema. Lasix IV started with clinical improvement. (5) Hypertension: Qualifiers: Hypertension type: primary hypertension Qualified Code(s): I10 - Essential (primary) hypertension Code(s): I10 - Essential (primary) hypertension Status: Chronic Assessment and Plan: BP 176/124 on admission related to the recent VTach and shock. BP did drop to 84/64 but since, BP has been stable. We continued Ramipril and Coreg. (6) Bipolar disorder: Code(s): F31.9 - Bipolar disorder, unspecified Status: Chronic Assessment and Plan: Mood remianed stable. We continued with home Viibryd and clonazepam (7) Hypothyroidism: Qualifiers: Hypothyroidism type: acquired Qualified Code(s): E03.9 - Hypothyroidism, unspecified Code(s): E03.9 - Hypothyroidism, unspecified Status: Chronic Assessment and Plan: TSH normal. We continued with levothyroxine (8) Hyperlipidemia: Code(s): E78.5 - Hyperlipidemia, unspecified Status: Chronic Assessment and Plan: LFTs okay. We continued with atorvastatin (9) Elevated blood sugar: Code(s): R73.9 - Hyperglycemia, unspecified Status: Acute Assessment and Plan: Glucose 212 felt related to the VTach arrest. A1c 5.2. (10) Cardiomyopathy: Code(s): I42.9 - Cardiomyopathy, unspecified Status:
== END 2021-03-25 12:05 | disposition home or self-care (01) | DRG 308 ==
LOC: ANHED 16:48 → ANHIMU 22:30
PROVIDERS: Nurse Practitioner; Admitting Provider Internal Medicine; Emergency Provider Emergency Medicine; PCP Family Medicine; Visit Provider Internal Medicine
DX: I47.2 Ventricular tachycardia (principal); J96.01 Acute respiratory failure with hypoxia; J96.02 Acute respiratory failure with hypercapnia; I50.43 Acute on chronic combined systolic (congestive) and diastolic (congestive) heart failure; I42.8 Other cardiomyopathies; I51.89 Other ill-defined heart diseases; I44.7 Left bundle-branch block, unspecified; R73.9 Hyperglycemia, unspecified; I11.0 Hypertensive heart disease with heart failure; F31.9 Bipolar disorder, unspecified; E03.9 Hypothyroidism, unspecified; R79.1 Abnormal coagulation profile; E78.5 Hyperlipidemia, unspecified; Z96.653 Presence of artificial knee joint, bilateral; Z86.718 Personal history of other venous thrombosis and embolism; Z86.73 Personal history of transient ischemic attack (TIA), and cerebral infarction without residual deficits; Z90.711 Acquired absence of uterus with remaining cervical stump
CPT/HCPCS: 36415; 36600; 71045; 71275; 80053; 80069; 82805; 83036; 83605; 83615; 83735; 83880; 84443; 84484; 85025; 85027; 85610; 85730; 93005; 93306; 93970; 94002; 94003; 94660; 96374; 96375; 99285; A9270; J1650; J1940; J2405; Q9967

== ENCOUNTER 2021-06-17 10:29 | Outpatient (CLI) | payer MEDICARE, SELFPAY ==
--- NOTE | ~2021-06-17 | DEXA_ITS ---
Bone Density Report Name: Yi Martino Age: 75 Sex: Female Ethnicity: White Date of : 1945 Indication: osteopenia; height loss; hysterectomy; post menopausal Referring Provider: KYLE, JULIANNE Gonsales Study: Bone densitometry was performed. Exam Date: June 17, 2021 Accession number: [id number] Bone Density: Region BMD T-score Z-score Classification AP Spine (L1-L4) 1.038 -0.1 2.3 Normal Femoral Neck (Left) 0.576 -2.5 -0.4 Osteoporosis Total Hip (Left) 0.668 -2.2 -0.4 Osteopenia Total Hip Bilateral Avg 0.653 -2.4 -0.6 Osteopenia Femoral Neck (Right) 0.564 -2.6 -0.5 Osteoporosis Total Hip (Right) 0.637 -2.5 -0.7 Osteoporosis World Health Organization criteria for BMD impression classify patients as: Normal (T-score at or above -1.0), Osteopenia (T-score between -1.0 and -2.5), or Osteoporosis (T-score at or below -2.5). 10-year Fracture Risk: FRAX not reported because: Some T-score for Spine Total or Hip Total or Femoral Neck at or below -2.5 Previous Exams: Region Exam Age BMD T-score BMD Change BMD Change Date g/cm2 vs Baseline vs Previous AP Spine(L1-L4) 06/17/2021 75 1.038 -0.1 0.027(2.7%)* 0.027(2.7%)* 03/22/2016 70 1.011 -0.3 Total Hip(Left) 06/17/2021 75 0.668 -2.2 -0.069(-9.4%)* -0.024(-3.5%) 01/24/2019 73 0.692 -2.1 -0.045(-6.1%)* -0.045(-6.1%)* 03/22/2016 70 0.737 -1.7 Total Hip(Right) 06/17/2021 75 0.637 -2.5 -0.052(-7.5%)* -0.053(-7.7%)* 01/24/2019 73 0.690 -2.1 0.001(0.1%) 0.001(0.1%) 03/22/2016 70 0.689 -2.1 *Denotes significance at 95% confidence level, LSC for AP Spine = 0.022 g/cm2, LSC for Total Hip = 0.027 g/cm2 Clinical Information Provided by Patient: Has used the following medications: Calcium Has the following medical conditions: Hysterectomy Patient maximum height was 66 Menopause Age: 50 No regular weight bearing exercise Does not regularly consume dairy products Drinks caffeinated beverages Onset of menses at age 16 Number of children 1 Impression: The patient has osteoporosis, based on the Right Femoral Neck T-score. The BMD for the Total Hip(Right) decreased, changing by -7.7% since the last DXA exam. Discussion: INCREASED RISK OF FRACTURE. BONE DENSITY IS UNDESIRABLY LOW AT ONE OR MORE SKELETAL SITES, CONSISTENT WITH POSTMENOPAUSAL OSTEOPOROSIS. This patient's lowest T-score meets the World Health Organization's (WHO) criteria for osteoporosis at one or more sites (T-sc
--- NOTE | ~2021-06-17 | MM_ITS ---
EXAMINATION: MM screening [facility] BI w tanja HISTORY: Screening TECHNIQUE: Craniocaudal and mediolateral oblique 3-D tomosynthesis images were obtained and synthetic 2-D images were generated. CAD analysis was submitted and interpreted. COMPARISON: Comparison to multiple prior studies sequentially, with oldest reviewed study dated 09/2014. BREAST PARENCHYMAL COMPOSITION: Breast composed of scattered areas of fibroglandular density. FINDINGS: There is no evidence of suspicious mass, calcification, or architectural distortion to sugg est malignancy in either breast. There has been no suspicious interval change. IMPRESSION: 1. No mammographic evidence of malignancy. 2. Recommend routine screening mammography in one year. BI-RADS Category 1: Negative Reviewed, dictated and finalized at location A.
== END 2021-06-17 10:30 | disposition home or self-care (01) ==
LOC: ANHIMG 10:35
PROVIDERS: PCP Family Medicine; Visit Provider Family Medicine
DX: Z12.31 Encounter for screening mammogram for malignant neoplasm of breast (principal); M85.89 Other specified disorders of bone density and structure, multiple sites; M81.0 Age-related osteoporosis without current pathological fracture
CPT/HCPCS: 77063; 77067; 77080

== ENCOUNTER 2021-07-21 13:30 | Outpatient (RCR) | payer MEDICARE, SELFPAY ==
[2021-07-02 11:45] VITALS: PULSE 70
--- NOTE | 2021-07-26 11:51 | PCCPR ---
Early theresa Chan spoke with our java programmer analyst today states there is too much stress at home to continue rehab. Discharged as requested. Benefits of program reinforced.
== END 2021-07-26 11:52 | disposition home or self-care (01) ==
LOC: ANHCPREHAB 13:30
PROVIDERS: PCP Family Medicine; Visit Provider Specialist
DX: I50.89 Other heart failure (principal)
CPT/HCPCS: 93798

== ENCOUNTER 2022-10-31 14:01 | Outpatient (CLI) | payer MEDICARE, SELFPAY ==
--- NOTE | ~2022-10-31 | CT_ITS ---
CT of the Abdomen and Pelvis: Indication: Fecal incontinence Technique: 2.5 mm axial scans were obtained through the abdomen and pelvis following intravenous adm inistration of 100 cc of Omnipaque 350. Dose reduction technique was used on this scan by utilizing a utomated exposure control and iterative reconstruction technique. The dose-length product (DLP) was 6 66.67 mGy-cm. COMPARISON: 10/29/2014 Findings: Scans through the lung bases are unremarkable. Small hiatal hernia noted. The liver, spleen, gallbladder, and adrenal glands are within normal limits. There is a 1.1 cm hypode nse, noncystic mass in the left kidney (axial image 34), indeterminate. Large right renal cyst presen t. Marked fatty atrophy of the pancreatic head and neck is present. No evidence of aortic aneurysm. No lymphadenopathy. No bowel obstruction or bowel wall thickening. Sigmoid diverticulosis noted. No acute inflammatory pr ocess evident.. Images through the pelvis were performed. Urinary bladder unremarkable. Patient is post hysterectomy. No adnexal mass seen. No ascites. Impression: 1.1 cm hypodense, noncystic mass in the left kidney is indeterminate. Small renal cell carcinoma is n ot excluded. Pre and postcontrast MR recommended to assess for solid lesion. Small hiatal hernia. Marked fatty atrophy/infiltration of pancreatic head and neck, similar to prior exam. Reviewed, dictated and finalized at location . [facility] Impression: 1.1 cm hypodense, noncystic mass in the left kidney is indeterminate. Small laura al cell carcinoma is not excluded. Pre and postcontrast MR recommended to asses s for solid lesion. Small hiatal hernia. Marked fatty atrophy/infiltration of pancreatic head and neck, similar to prior exam.
[2022-10-31 14:26] LABS: Estimated Glomerular Filt Rate 48
== END 2022-10-31 14:02 ==
LOC: MICIMG 14:03
PROVIDERS: PCP Family Medicine; Visit Provider Family Medicine
DX: R15.9 Full incontinence of feces (principal); K44.9 Diaphragmatic hernia without obstruction or gangrene; N28.89 Other specified disorders of kidney and ureter; K86.89 Other specified diseases of pancreas
CPT/HCPCS: 74177; Q9967

== ENCOUNTER 2023-05-25 12:38 | Outpatient (CLI) | payer MEDICARE, SELFPAY ==
--- NOTE | 2023-05-26 07:18 | WPDPFTINT ---
PFT Procedure Performed PFT Procedure Performed Plethysmography (Lung Vol) Diffusing Cap (DLCO) Flow Vol Loop Spirometry w/o Bronchodil PFT Interpretation This is a pulmonary function test with spirometry, plethysmography and diffusing capacity. The test was performed and results interpreted in accordance with the 2019 and 2005 ATS/ERS Task Force guidelines respectively using the Global Lung Function Initiative-2012 reference equations. Patient demonstrated good effort and cooperation. Reproducibility criteria were met. The quality of the spirometry maneuver was Grade A. Findings: Spirometry: There is decreased maximal expiratory airflow at low lung volumes. The contour the inspiratory flow tracing is normal. The FVC is 2.22 L, 82% predicted. The FEV1 is 1.52 L, 73% predicted. The FEV1: FVC ratio 68%. Plethysmography: The total lung capacity is 5.26 L, 101% predicted. The functional residual capacity is 3.47 L, 116% predicted. The residual volume is 3.04 L, 128% predicted. Diffusing capacity: The diffusing capacity unadjusted for hemoglobin and carboxyhemoglobin is 10.9, 54% predicted. The diffusing capacity adjusted for alveolar volume is 3.05, 74% predicted. Impression: The spirometry is normal without evidence of an obstructive abnormality. The lung volumes are normal. The diffusing capacity unadjusted for hemoglobin and carboxyhemoglobin is moderately decreased and normalizes when adjusted for alveolar volume. Impression: There is a moderately severe restrictive ventilatory abnormality. The spirometry is normal without evidence of an obstructive abnormality. The diffusing capacity unadjusted for hemoglobin and carboxyhemoglobin is moderately decreased and normalizes when adjusted for alveolar volume. There are no prior studies for comparison
== END 2023-05-25 12:39 | disposition home or self-care (01) ==
PROVIDERS: PCP Family Medicine; Visit Provider Nurse Practitioner Adult Health
DX: Z79.899 Other long term (current) drug therapy (principal); R94.2 Abnormal results of pulmonary function studies
CPT/HCPCS: 94375; 94726; 94729

== ENCOUNTER 2023-12-08 13:58 | Emergency (ER) | payer MEDICARE, SELFPAY ==
--- NOTE | ~2023-12-08 | CT_ITS ---
EXAMINATION: CTA brain carotid DATE: 12/08/2023 18:27 INDICATION: Dizziness x3 weeks, numbness L mouth and hand TECHNIQUE: Computed tomographic angiography (CTA) of the head was performed without and with 100 mL O mnipaque-350 intravenous contrast. CTA of the neck was performed with intravenous contrast. Automated exposure control and iterative reconstruction technique were employed. The dose-length product was 1 514.99 mGy-cm. Maximum intensity projection and volume rendered 3D-reconstructions were created by rona monroe technologist on a separate workstation. COMPARISON: CT brain 01/16/2018. FINDINGS: CT BRAIN: No acute large vessel infarct, intracranial hemorrhage, mass, or hydrocephalus. Moderate atrophy and chronic white matter change. Atherosclerotic intracranial calcification. CTA HEAD: No large vessel occlusion, aneurysm, high flow vascular malformation, nidus or extravasation. Symmetr ic parenchymal enhancement. Patent cerebral veins. CTA NECK: Aortic arch and proximal great vessels: Normal arch anatomy. Minimal atherosclerotic calcification.. Right common carotid, carotid bifurcation, and internal carotid artery: Mild calcified plaque at the bifurcation.There is 0% stenosis of the proximal right internal carotid artery relative to normal dis jose artery lumen diameter (NASCET criteria). Left common carotid, carotid bifurcation, and internal carotid artery: Mild calcified and noncalcifie d plaque at the bifurcation.There is 7% stenosis of the proximal left internal carotid artery relativ e to normal distal artery lumen diameter (NASCET criteria). Vertebral arteries: No significant plaque or stenosis. Other findings: Biapical pleural scarring. Multiple sub-6 mm solid-appearing pulmonary nodules. 6 mm groundglass nodule in the right upper lobe (image 10/201). IMPRESSION: No large vessel intracranial occlusion, high-grade intracranial stenosis, or aneurysm. No carotid or vertebral artery occlusion, dissection, or significant stenosis. Multiple pulmonary nodules including sub-6 mm solid-appearing nodules and a 6 cm groundglass nodule i n the right upper lobe. Consider low-dose noncontrast CT of the chest in 3-6 months to evaluate persi stence of the groundglass nodule. Reviewed, dictated and finalized at location K. IMPRESSION: No large vessel intracranial occlusion, high-grade intracranial stenosis, or an eurysm. No carotid or vertebral artery occlusion, dissection, or significant stenosis. Multiple pulmonary nodules including sub-6 mm solid-appearing nodules and a 6 c m groundglass nodule in the right upper lobe. Consider low-dose noncontrast CT of the chest in 3-6 months to evaluate persistence of the groundglass nodule.
--- NOTE | ~2023-12-08 | XR_ITS ---
EXAMINATION: XR chest 1V portable DATE: 12/08/2023 17:08 INDICATION: Left neck mass TECHNIQUE: frontal view of the chest was obtained. COMPARISON: None FINDINGS: The lungs are clear with no focal airspace opacities, pulmonary edema, pleural effusion or pneumothor ax. The cardiomediastinal silhouette is normal. Three lead pacemaker/AICD seen with leads projecting over the expected locations of the right atrial appendage, apex of the right ventricle and overlying the left ventricle likely having traversed the coronary sinus. Likely prior distal left clavicle rese ction. IMPRESSION: 1. No acute cardiopulmonary disease. Reviewed, dictated and finalized at location A.
[2023-12-08 14:00] VITALS: BP 168/94; PULSE 68; RESP 18; TEMP 36.6; O2SAT 99
--- NOTE | 2023-12-08 14:16 | ED.GENADULT ---
HPI - General Adult General Chief complaint: Unspecified Stated complaint: LOPEZ, eye hurts, knot on neck and knee, nausea Time Seen by Provider: 12/08/23 14:17 Focused HPI: Yi is a 78-year-old female patient presenting to the ER today complaints of headache,eye hurt, knot on her neck and knee, and nausea times. She reports. History of TIA, hypertension, DVT, bipolar disorder, hyperlipidemia, and hypothyroid GENERAL: Well-appearing, well-nourished, and in no acute distress. HEAD: Normocephalic, atraumatic. CHEST: Clear to auscultation. No respiratory distress. HEART: Regular rate and rhythm. NEURO: Alert and oriented x3. Patient screened in triage and initial orders placed. Additional care and disposition to be based upon diagnostic testing and treatment. Related Data Home Medications Medication Instructions Recorded Confirmed cariprazine 3 mg capsule (Vraylar) 3 mg PO HS 03/22/21 08/22/22 carvedilol 12.5 mg tablet 12.5 mg PO Q12H 03/22/21 08/22/22 clonazepam 1 mg tablet 1 mg PO BID 03/22/21 08/22/22 levothyroxine 112 mcg tablet 112 mcg PO DAILY 03/22/21 08/22/22 (Euthyrox) trazodone 150 mg tablet 150 mg PO HS 03/22/21 08/22/22 ondansetron 8 mg disintegrating 8 mg PO Q8H PRN Nausea 07/02/21 08/22/22 tablet warfarin 4 mg tablet 4 mg PO DAILY 07/02/21 08/22/22 alendronate 70 mg tablet 70 mg PO WEEKLY 08/22/22 08/22/22 cyclobenzaprine 10 mg tablet 10 mg PO TID 08/22/22 08/22/22 mecobalamin (vitamin B12) 10,000 mcg IM 08/22/22 08/22/22 mcg solution for injection omeprazole 40 mg capsule,delayed 40 mg PO DAILY 08/22/22 08/22/22 release sacubitril 49 mg-valsartan 51 mg 1 tablet PO BID 08/22/22 08/22/22 tablet (Entresto) spironolactone 25 mg tablet 25 mg PO DAILY 08/22/22 08/22/22 venlafaxine 37.5 mg 37.5 mg PO DAILY 08/22/22 08/22/22 capsule,extended release 24 hr (Effexor XR) Allergies Allergy/AdvReac Type Severity Reaction Status Date / Time codeine Allergy Unknown Unknown Verified 08/22/22 13:19 lorazepam Allergy Unknown Unknown Verified 08/22/22 13:19 NSAIDS (Non-Steroidal Allergy Unknown Nausea Verified 08/22/22 13:19 Anti-Inflamma sumatriptan Allergy Unknown FELT Verified 08/22/22 13:19 HORRIBLE tramadol Allergy Unknown Unknown Verified 08/22/22 13:19 [facility] Past Medical History Medical History (Updated 08/24/22 @ 13:35 by HAWK Swan) Bipolar disorder Cardiomyopathy Diarrhea Encounter for screening colonoscopy History of DVT (deep vein thrombosis) Hyperlipidemia Hypertension Hypothyroidism TIA (transient ischemic attack) Surgical History Surgical History H/O cardiac catheterization History of knee replacement bilaterally History of orthopedic surgery History of partial hysterectomy S/P colon resection S/P rotator cuff repair left shoulder Family History Family History Father Hypertension Cerebrovascular accident Mother Family history of diabetes mellitus in first degree relative Family history of lung disease Family history of coronary artery disease Sibling Family history of diabetes mellitus in first degree relative Cardiomyopathy Son Family history of mental disorder Other Family history of alcoholism Family history of arthritis Family history of gout Social History Social History Social History: the patient is . The patient has 1 child. She is retired from the [employer]. The patient is listed as a full code and her child is a durable power credit assistant for healthcare. The patient's lifelong nonsmoker. She does not use any alcohol marijuana or illicit drugs. Smoking status: Never smoker Alcohol intake: never Substance use: never Gender identity (if verbalized by the patient): Female Spiritual care concerns: No Course Vital Signs Vital signs: Vital
--- NOTE | 2023-12-08 14:58 | PC.NURSE ---
pt states they had left hand tingling this morning briefly that has now resolved.
--- NOTE | 2023-12-08 17:23 | ED.GENADULT ---
HPI - General Adult General Chief complaint: Unspecified Stated complaint: LOPEZ, Lump on neck Time Seen by Provider: 12/08/23 14:17 History of Present Illness HPI narrative: This is a 78-year-old female presenting ED with a chief complaint of headache, lump on her neck, and tingling of her left mouth/left fingertips. Shes says she woke up this morning with symptoms @ 0600. patient denies fever chills nausea vomiting diarrheachest pain difficulty breathing, abdominal pain or weakness. Related Data Home Medications Medication Instructions Recorded Confirmed cariprazine 3 mg capsule (Vraylar) 3 mg PO HS 03/22/21 08/22/22 carvedilol 12.5 mg tablet 12.5 mg PO Q12H 03/22/21 08/22/22 clonazepam 1 mg tablet 1 mg PO BID 03/22/21 08/22/22 levothyroxine 112 mcg tablet 112 mcg PO DAILY 03/22/21 08/22/22 (Euthyrox) trazodone 150 mg tablet 150 mg PO HS 03/22/21 08/22/22 ondansetron 8 mg disintegrating 8 mg PO Q8H PRN Nausea 07/02/21 08/22/22 tablet warfarin 4 mg tablet 4 mg PO DAILY 07/02/21 08/22/22 alendronate 70 mg tablet 70 mg PO WEEKLY 08/22/22 08/22/22 cyclobenzaprine 10 mg tablet 10 mg PO TID 08/22/22 08/22/22 mecobalamin (vitamin B12) 10,000 mcg IM 08/22/22 08/22/22 mcg solution for injection omeprazole 40 mg capsule,delayed 40 mg PO DAILY 08/22/22 08/22/22 release sacubitril 49 mg-valsartan 51 mg 1 tablet PO BID 08/22/22 08/22/22 tablet (Entresto) spironolactone 25 mg tablet 25 mg PO DAILY 08/22/22 08/22/22 venlafaxine 37.5 mg 37.5 mg PO DAILY 08/22/22 08/22/22 capsule,extended release 24 hr (Effexor XR) Allergies Allergy/AdvReac Type Severity Reaction Status Date / Time codeine Allergy Unknown Unknown Verified 08/22/22 13:19 lorazepam Allergy Unknown Unknown Verified 08/22/22 13:19 NSAIDS (Non-Steroidal Allergy Unknown Nausea Verified 08/22/22 13:19 Anti-Inflamma sumatriptan Allergy Unknown FELT Verified 08/22/22 13:19 HORRIBLE tramadol Allergy Unknown Unknown Verified 08/22/22 13:19 [facility] Past Medical History Medical History Bipolar disorder Cardiomyopathy Diarrhea Encounter for screening colonoscopy History of DVT (deep vein thrombosis) Hyperlipidemia Hypertension Hypothyroidism TIA (transient ischemic attack) Surgical History Surgical History H/O cardiac catheterization History of knee replacement bilaterally History of orthopedic surgery History of partial hysterectomy S/P colon resection S/P rotator cuff repair left shoulder Family History Family History Father Hypertension Cerebrovascular accident Mother Family history of diabetes mellitus in first degree relative Family history of lung disease Family history of coronary artery disease Sibling Family history of diabetes mellitus in first degree relative Cardiomyopathy Son Family history of mental disorder Other Family history of alcoholism Family history of arthritis Family history of gout Social History Social History Social History: the patient is . The patient has 1 child. She is retired from the [employer]. The patient is listed as a full code and her child is a durable power line crewman for healthcare. The patient's lifelong nonsmoker. She does not use any alcohol marijuana or illicit drugs. Smoking status: Never smoker Alcohol intake: never Substance use: never Gender identity (if verbalized by the patient): Female Spiritual care concerns: No Exam Narrative: APPEARANCE: No apparent distress. Head: atraumatic. EYES: EOMI, NOSE: Atraumatic NECK: Trachea midline, Patient has a mild supraclavicular fat pads bilaterally. RESPIRATORY: No increased rate of breathing CTAB CARDIOVASCULAR: RRR, ABDOMINAL: Non-distended MUSCULOSKELETAl: No obvious deformities
[2023-12-08 17:38] LABS: Basophils Percent Auto 0.3 % (0.2-1.2); Eosinophils Absolute Auto 0.1 K/mm3 (0-0.3); Eosinophils Percent Auto 1.3 % (0-4.4); Hematocrit 40.5 % (37.0-47.0); Hemoglobin 12.9 g/dL (12.0-15.0); Immature Granulocyte Absolute 0.02 K/mm3 (0.00-0.031); Immature Granulocyte Percent A 0.3 % (0-0.5); Lymphocytes Absolute Auto 1.75 K/mm3 (0.9-3.2); Lymphocytes Percent Auto 25.7 % (18.3-44.2); Mean Corpuscular HGB Conc 31.9 g/dl (32-36); Mean Corpuscular Hemoglobin 32.8 pg (26-34); Mean Corpuscular Volume 103.1 fl (80-100); Mean Platelet Volume 9.1 fl (7.4-10.4); Monocytes Absolute Auto 0.7 K/mm3 (0.1-0.6); Monocytes Percent Auto 10.3 % (2.6-8.5); Neutrophils Absolute Auto 4.2 K/mm3 (1.3-6.7); Neutrophils Percent Auto 62.1 % (45.5-73.1); Platelet Count Result 218 k/mm3 (150-375); Red Blood Count 3.93 M/mm3 (4.2-5.4); Red Cell Distribution Width 13.3 % (11.5-14.5); White Blood Count 6.8 K/mm3 (4.5-10.0)
--- NOTE | 2023-12-08 17:47 | ECG_ITS ---
Measurements Intervals [place] Rate: 63 P: 49 AL: 146 QRS: -14 QRSD: 145 T: 89 QT: 471 Avg RR: 947 QTc: 478 QTcB: 484 QTcF: 479 Interpretive Statements ELECTRONIC VENTRICULAR PACEMAKER ABNORMAL RHYTHM ECG SEE SCANNED COPY FOR SIGNATURE MTDD
[2023-12-08 17:49] LABS: Alanine Aminotransferase 13 U/L (6-35); Albumin Level 4.5 g/dL (3.5-5.1); Alkaline Phosphatase 54 U/L (38-126); Anion Gap 5 mmol/L (4-12); Aspartate Amino Transferase 18 U/L (14-36); Bilirubin,Total 0.5 mg/dL (0.2-1.3); Blood Urea Nitrogen 11 mg/dL (7-17); Calcium 9.3 mg/dL (8.4-10.2); Carbon Dioxide 26 mmol/L (22-30); Chloride 107 mmol/L (98-107); Estimated CRCL calculation 36 ml/min; Estimated Glomerular Filt Rate 43; Glucose 100 mg/dL (65-110); Potassium 4.1 mmol/L (3.4-5.0); Sodium 138 mmol/L (137-145)
[2023-12-08] MEDS: ACETAMINOPHEN 500 MG TABLET 1000 MG PO (17:51)
[2023-12-08] MEDS: ONDANSETRON INJ 4 MG/2 ML VIAL IV PUSH (17:52)
[2023-12-08 17:53] LABS: INR 2.3; Prothrombin Time 27.5 Seconds (11.1-14.7)
[2023-12-08 17:56] VITALS: BP 182/92; PULSE 65; RESP 18; O2SAT 98
[2023-12-08 18:21] LABS: Influenza A QL RT-PCR Negative (Negative); Influenza B QL RT-PCR Negative (Negative); RSV RNA, RT-PCR Negative (Negative); SARS-CoV-2 RNA PCR Negative (Negative)
[2023-12-08 18:24] VITALS: BP 167/98; PULSE 71; RESP 18; O2SAT 96
[2023-12-08 20:20] VITALS: BP 183/91; PULSE 60; RESP 17; TEMP 36.9; O2SAT 97
== END 2023-12-08 20:20 | disposition home or self-care (01) ==
PROVIDERS: Emergency Provider Emergency Medicine; PCP Internal Medicine
DX: R20.2 Paresthesia of skin (principal); F31.9 Bipolar disorder, unspecified; Z86.718 Personal history of other venous thrombosis and embolism; Z79.01 Long term (current) use of anticoagulants; E78.5 Hyperlipidemia, unspecified; I10 Essential (primary) hypertension; E03.9 Hypothyroidism, unspecified; Z86.73 Personal history of transient ischemic attack (TIA), and cerebral infarction without residual deficits; Z96.653 Presence of artificial knee joint, bilateral; Z20.822 Contact with and (suspected) exposure to COVID-19
CPT/HCPCS: 36415; 70496; 70498; 71045; 80053; 85025; 85610; 85730; 87637; 93005; 96374; 99284; A9270; J2405; Q9967

== ENCOUNTER 2024-01-02 11:18 | Observation (INO) | payer MEDICARE, SELFPAY ==
[2024-01-02] VITALS (17 sets, daily range): BP systolic 128–147; BP diastolic 59–78; PULSE 61–94; RESP 18–31; TEMP 35.9–36.7; O2SAT 90–100; BMI 30.3
--- NOTE | ~2024-01-02 | XR_ITS ---
EXAMINATION: XR chest 1V portable DATE: 01/02/2024 11:56 INDICATION: Shortness of breath. TECHNIQUE: A single frontal view of the chest was obtained. COMPARISON: Chest single view 12/08/2023 FINDINGS: There is a diffuse interstitial pattern in the lungs, consistent with mild pulmonary edema. No pleural effusion or pneumothorax. The heart size is normal. There is a left chest pacer/defibrill ator with leads in right atrium, right ventricle, and coronary sinus. IMPRESSION: 1. Mild pulmonary edema. Reviewed, dictated and finalized at location A. IMPRESSION: 1. Mild pulmonary edema.
[2024-01-02 11:34] LABS: Alveolar/Arterial O2 Gradient 587.1 mmHg; Base Excess ABG -3.2 mEq/l (+/-2.0); Carboxyhemoglobin 0.5 % THb (0-2.0); Fractional Inspired Oxygen 100 %; HCO3 ABG 24.3 mEq/l (22.0-26.0); Methemoglobin ABG 0.3 %THb (0-1.5); Oxygen Content ABG 17.4 %vol (16.0-22.0); Oxygen Saturation ABG 92.3 % (95.0-100.0); Oxyhemoglobin 90.8 % THb (90.0-100.0); PCO2 ABG 53.7 mmHg (35.0-45.0); PO2 ABG 72.2 mmHg (80.0-100.0); PO2 FiO2 Ratio Arterial Blood 0.72 %; Reduced Hemoglobin 8.4 %THb (0-5.0); Total Hemoglobin 13.6 g/dL (12.0-18.0)
--- NOTE | 2024-01-02 11:34 | ECG_ITS ---
SEE SCANNED COPY FOR CONFIRMED REPORT. MTDD
[2024-01-02 11:35] LABS: Device NON-REBREATHER MASK; Modified Allen's Test Pass; Site Drawn LEFT RADIAL; pH ABG 7.273 (7.350-7.450)
[2024-01-02 12:00] LABS: Basophils Absolute Auto 0.1 K/mm3 (0.0-0.1); Basophils Percent Auto 0.4 % (0.2-1.2); Eosinophils Percent Auto 0.2 % (0-4.4); Hematocrit 41.2 % (37.0-47.0); Immature Granulocyte Absolute 0.07 K/mm3 (0.00-0.031); Immature Granulocyte Percent A 0.4 % (0-0.5); Lymphocytes Absolute Auto 1.02 K/mm3 (0.9-3.2); Lymphocytes Percent Auto 6.2 % (18.3-44.2); Mean Corpuscular HGB Conc 31.6 g/dl (32-36); Mean Corpuscular Hemoglobin 33.1 pg (26-34); Mean Corpuscular Volume 104.8 fl (80-100); Mean Platelet Volume 9.4 fl (7.4-10.4); Monocytes Absolute Auto 0.8 K/mm3 (0.1-0.6); Monocytes Percent Auto 5.1 % (2.6-8.5); Neutrophils Absolute Auto 14.4 K/mm3 (1.3-6.7); Neutrophils Percent Auto 87.7 % (45.5-73.1); Platelet Count Result 202 k/mm3 (150-375); Red Blood Count 3.93 M/mm3 (4.2-5.4); Red Cell Distribution Width 13.3 % (11.5-14.5); White Blood Count 16.5 K/mm3 (4.5-10.0)
[2024-01-02 12:11] LABS: Lactic Acid Reflex 3.3 mmol/L (0.7-2.0)
[2024-01-02 12:14] LABS: Alanine Aminotransferase 16 U/L (6-35); Albumin Level 4.5 g/dL (3.5-5.1); Alkaline Phosphatase 49 U/L (38-126); Anion Gap 10 mmol/L (4-12); Aspartate Amino Transferase 28 U/L (14-36); Bilirubin,Total 0.7 mg/dL (0.2-1.3); Blood Urea Nitrogen 15 mg/dL (7-17); Calcium 8.8 mg/dL (8.4-10.2); Carbon Dioxide 25 mmol/L (22-30); Chloride 106 mmol/L (98-107); Estimated CRCL calculation 41 ml/min; Estimated Glomerular Filt Rate 48; Glucose 218 mg/dL (65-110); INR 2.6; Partial Thromboplastin Time 28.3 Seconds (22.3-36.8); Potassium 3.6 mmol/L (3.4-5.0); Prothrombin Time 29.6 Seconds (11.1-14.7); Sodium 141 mmol/L (137-145)
--- NOTE | 2024-01-02 12:22 | ED.GENADULT ---
HPI - General Adult General Chief complaint: Shortness of Breath/Dyspnea Stated complaint: resp. distress Time Seen by Provider: 01/02/24 12:03 History of Present Illness HPI narrative: 70-year-old female history of CHF presenting emergency department for evaluation of worsening shortness of breath that started this morning. patient states that she felt fine yesterday but when she woke up this morning everything fell apart . Patient arrived by EMS on 15 L by non-rebreather and was transitioned to BiPAP due to her increased work of breathing. Patient did feel improved on the BiPAP. Patient denies any chest pain but does report increased shortness of breath. Patient states she has had some increased lower extremity swelling over the last few days. Related Data Home Medications Medication Instructions Recorded Confirmed carvedilol 12.5 mg tablet 12.5 mg PO Q12H 03/22/21 01/02/24 trazodone 150 mg tablet 150 mg PO HS 03/22/21 01/02/24 venlafaxine 37.5 mg 37.5 mg PO DAILY 08/22/22 01/02/24 capsule,extended release 24 hr (Effexor XR) rosuvastatin 40 mg tablet 40 mg PO DAILY 12/27/23 01/02/24 Vitamin D3 50,000 units PO DAILY 01/02/24 01/02/24 amiodarone 200 mg tablet 400 mg PO DAILY 01/02/24 01/02/24 cariprazine 1.5 mg capsule 1.5 mg PO DAILY 01/02/24 01/02/24 (Vraylar) clonazepam 0.5 mg tablet 0.5 mg PO TID 01/02/24 01/02/24 levothyroxine 150 mcg tablet 150 mcg PO DAILY 01/02/24 01/02/24 ropinirole 0.5 mg tablet 0.5 mg PO QHS 01/02/24 01/02/24 warfarin 3 mg tablet 3 mg PO DAILY 01/02/24 01/02/24 Allergies Allergy/AdvReac Type Severity Reaction Status Date / Time codeine Allergy Unknown Unknown Verified 01/02/24 11:39 lorazepam Allergy Unknown Unknown Verified 01/02/24 11:39 NSAIDS (Non-Steroidal Allergy Unknown Nausea Verified 01/02/24 11:39 Anti-Inflamma sumatriptan Allergy Unknown FELT Verified 01/02/24 11:39 HORRIBLE tramadol Allergy Unknown Unknown Verified 01/02/24 11:39 Review of Systems Review of Systems: All systems reviewed & are unremarkable except as noted in HPI and below PMFSH Past Medical History Medical History Bipolar disorder Cardiomyopathy Chronic anticoagulation Chronic kidney disease Deep venous thrombosis Depression with anxiety Gastroesophageal reflux disease Heart failure with reduced ejection fraction EF was 20 to 25% in March 2021. Hyperlipidemia Hypertension Hypothyroidism Left bundle branch block Transient ischemic attack Surgical History Surgical History History of bilateral knee arthroplasty History of bladder suspension procedure History of cardiac catheterization History of colon resection History of orthopedic surgery History of partial hysterectomy History of repair of left rotator cuff History of tonsillectomy Family History Family History Father Hypertension Cerebrovascular accident Mother Family history of diabetes mellitus in first degree relative Family history of lung disease Family history of coronary artery disease Sibling Family history of diabetes mellitus in first degree relative Cardiomyopathy Son Family history of mental disorder Other Family history of alcoholism Family history of arthritis Family history of gout Social History Social History (Updated 01/02/24 @ 21:13 by Ana Rosa Srivastava PA-C) Social History: Surrogate medical decision maker: Man Linton, sibling. Code status: Full code. Smoking status: Never smoker Alcohol intake: never Substance use: never Substance use type: does not use Do You Feel Safe in your Home?: Yes Lack of Transportation: No Lack of Food: Never True Current Housing: I Have Housing Concerned About Future Housing: No Difficulty Paying Gas/Electric Bills: No Difficulty Paying for Meds: No Cu
[2024-01-02 12:26] LABS: Alveolar/Arterial O2 Gradient 286.9 mmHg; Base Excess ABG -0.3 mEq/l (+/-2.0); Carboxyhemoglobin 0.7 % THb (0-2.0); Fractional Inspired Oxygen 60 %; Methemoglobin ABG 0.3 %THb (0-1.5); Oxygen Content ABG 17.7 %vol (16.0-22.0); Oxygen Saturation ABG 96.1 % (95.0-100.0); Oxyhemoglobin 94.5 % THb (90.0-100.0); PCO2 ABG 48.9 mmHg (35.0-45.0); PO2 ABG 87.1 mmHg (80.0-100.0); PO2 FiO2 Ratio Arterial Blood 1.45 %; Reduced Hemoglobin 4.5 %THb (0-5.0); Total Hemoglobin 13.3 g/dL (12.0-18.0); pH ABG 7.343 (7.350-7.450)
[2024-01-02 12:27] LABS: Device NON-INVASIVE VENT; Site Drawn LEFT BRACHIAL
[2024-01-02 12:27] LABS: NT Pro B Type Natriuretic Pept 3660 pg/mL (19.9-100); Troponin I 0.059 ng/mL (0.000-0.034)
[2024-01-02 12:28] LABS: Non-Invasive Expiratory Pressure 7 CMH2O; Non-Invasive Inspiratory Pressure 14 CMH2O; Non-Invasive Vent Rate 20 /MIN
[2024-01-02 12:37] LABS: Influenza A QL RT-PCR Negative (Negative); Influenza B QL RT-PCR Negative (Negative); RSV RNA, RT-PCR Negative (Negative); SARS-CoV-2 RNA PCR Negative (Negative)
[2024-01-02] MEDS: FUROSEMIDE INJ 40 MG/4 ML VIAL IV PUSH ×2 (12:40→20:01)
--- NOTE | 2024-01-02 13:40 | PM.IMHP ---
H&P: HPI History of Present Illness Date/Time: 01/02/24 14:30 Chief Complaint: Shortness of breath. Narrative: This is a 78-year-old female with heart failure with reduced ejection fraction, nonischemic cardiomyopathy status post ICD insertion, deep venous thrombosis on anticoagulation, chronic kidney disease, hypothyroidism, gastroesophageal reflux disease, depression, anxiety, and other comorbidities who presented to the emergency department via EMS for evaluation of shortness of breath. She was in her usual state of health when she went to bed last night and shortly after waking this morning she developed pretty sudden-onset shortness of breath which quickly progressed to respiratory distress. With further questioning she does report increasing swelling in her legs the last few days. She has an occasional dry cough which is unchanged. She did not try using nebulizers at home. She denies fever, chills, sweats, chest pain, palpitations, pleuritic pain, paroxysmal nocturnal dyspnea, orthopnea, nausea, vomiting, and calf pain. In the ED: She arrived to ER on a non-rebreather mask with an SpO2 of 95%. She was in respiratory distress with an initial blood gas showing a pH of 7.273, pCO2 73.7, and bicarb 24.3. She was placed on BiPAP with improvement her work of breathing and her blood gas labs were significant for WBC of 16.5, hemoglobin 13.0, MCV 104.3 INR 2.6, creatinine 1.10, lactic acid 3.3, glucose 218, proBNP 3660, troponin 0.059. She tested negative for influenza, RSV, and COVID. Chest x-ray showed mild pulmonary edema. She received 40 mg IV furosemide and is being admitted to the IMU in this setting for further treatment. Review of Systems Review of Systems: 12 systems were reviewed and are negative except for as per HPI. [facility] Past Medical History Medical History Bipolar disorder Cardiomyopathy Chronic anticoagulation Chronic kidney disease Deep venous thrombosis Depression with anxiety Gastroesophageal reflux disease Heart failure with reduced ejection fraction EF was 20 to 25% in March 2021. Hyperlipidemia Hypertension Hypothyroidism Left bundle branch block Transient ischemic attack Surgical History Surgical History History of bilateral knee arthroplasty History of bladder suspension procedure History of cardiac catheterization History of colon resection History of orthopedic surgery History of partial hysterectomy History of repair of left rotator cuff History of tonsillectomy Family History Family History Father Hypertension Cerebrovascular accident Mother Family history of diabetes mellitus in first degree relative Family history of lung disease Family history of coronary artery disease Sibling Family history of diabetes mellitus in first degree relative Cardiomyopathy Son Family history of mental disorder Other Family history of alcoholism Family history of arthritis Family history of gout Social History Social History (Updated 01/02/24 @ 21:13 by Ana Rosa Srivastava PA-C) Social History: Surrogate medical decision maker: Man Linton, bill. Code status: Full code. Smoking status: Never smoker Alcohol intake: never Substance use: never Substance use type: does not use Do You Feel Safe in your Home?: Yes Lack of Transportation: No Lack of Food: Never True Current Housing: I Have Housing Concerned About Future Housing: No Difficulty Paying Gas/Electric Bills: No Difficulty Paying for Meds: No Currently Unemployed: No Education: High School Diploma/GED Difficulty w/ Childcare or Family Care: No Living arrangements: with roommate(s) Additional living arrangements comments: . Has 1 child. Additional occupation/education comments: Retired from the [employer]. Spiritual care con
--- NOTE | 2024-01-02 14:04 | PC.NURSE ---
Report attempt. No answer. Unable to give report.
--- NOTE | 2024-01-02 14:05 | PC.NURSE ---
Report given to CLARITZA Guevara. All questions and concerns answered. RN accepts patient.
[2024-01-02 14:58] LABS: Reflex Lactic Acid Yes or No Add Lactic
--- NOTE | 2024-01-02 15:16 | ADMGEN ---
This patient, Yi Martino, was admitted to IMU Room 214-01. Patient/family oriented to hospital policies and general routines including ID bracelet, bed and alarms, visiting hours, pain management, procedures, bathroom and other care routines, personal items, smoking policy, room service/diet, and visiting hours. Information on how to activate the Rapid Response Team has been discussed. Patient/Family are encouraged to report perceived risks to care and to ask questions if they do not understand what they are told or what they should do.
[2024-01-02] MEDS: ACETAMINOPHEN 325 MG TABLET 650 MG PO (15:49)
[2024-01-02 16:11] LABS: Lactic Acid 1.5 mmol/L (0.7-2.0)
[2024-01-02 16:33] LABS: Procalcitonin 0.6 ng/mL
[2024-01-02] MEDS: carvediloL 12.5 MG TABLET PO (22:04)
[2024-01-02] MEDS: traZODone HCL 50 MG TABLET 150 MG PO (22:04)
[2024-01-02] MEDS: WARFARIN (*PBKC) 3 MG TABLET PO (22:05)
[2024-01-02] MEDS: clonazePAM (*CRX) 0.5 MG TABLET PO (22:05)
--- NOTE | 2024-01-02 22:19 | PHAR ---
Cariprazine [Vraylar] 1.5 mg Capsule- VERIFIED IN PHARMACY AND SENT BACK TO IMU FOR PT USE. (PHYSICIAN SAMPLE PACK) ONLY #2 REMAINING. Give on dose now per hospitalist.
[2024-01-02 22:22] LABS: Troponin I 0.118 ng/mL (0.000-0.034)
[2024-01-03] VITALS (16 sets, daily range): BP systolic 125–148; BP diastolic 44–67; PULSE 60–68; RESP 18–24; TEMP 36.3–36.6; O2SAT 92–99
[2024-01-03 04:17] LABS: Hematocrit 35.4 % (37.0-47.0); Hemoglobin 11.2 g/dL (12.0-15.0); Mean Corpuscular HGB Conc 31.6 g/dl (32-36); Mean Corpuscular Hemoglobin 32.9 pg (26-34); Mean Corpuscular Volume 104.1 fl (80-100); Mean Platelet Volume 9.1 fl (7.4-10.4); Platelet Count Result 175 k/mm3 (150-375); Red Cell Distribution Width 13.5 % (11.5-14.5); White Blood Count 7.9 K/mm3 (4.5-10.0)
[2024-01-03 04:27] LABS: Anion Gap 6 mmol/L (4-12); Blood Urea Nitrogen 15 mg/dL (7-17); Calcium 8.6 mg/dL (8.4-10.2); Carbon Dioxide 31 mmol/L (22-30); Chloride 104 mmol/L (98-107); Estimated CRCL calculation 34 ml/min; Estimated Glomerular Filt Rate 40; Glucose 100 mg/dL (65-110); Magnesium 2.1 mg/dL (1.6-2.3); Potassium 3.3 mmol/L (3.4-5.0); Sodium 141 mmol/L (137-145)
[2024-01-03 07:15] LABS: Alveolar/Arterial O2 Gradient 43.5 mmHg; Base Excess ABG 7.9 mEq/l (+/-2.0); Carboxyhemoglobin 0.3 % THb (0-2.0); Fractional Inspired Oxygen 25 %; Methemoglobin ABG 0.1 %THb (0-1.5); Oxygen Content ABG 15.7 %vol (16.0-22.0); Oxygen Saturation ABG 95.8 % (95.0-100.0); Oxyhemoglobin 94.3 % THb (90.0-100.0); PCO2 ABG 48.3 mmHg (35.0-45.0); PO2 ABG 77.4 mmHg (80.0-100.0); Reduced Hemoglobin 5.3 %THb (0-5.0); Total Hemoglobin 11.8 g/dL (12.0-18.0); pH ABG 7.452 (7.350-7.450)
[2024-01-03 07:16] LABS: Device NON-INVASIVE VENT; Non-Invasive Inspiratory Pressure 14 CMH2O; Non-Invasive Vent Rate 20 /MIN; Site Drawn LEFT BRACHIAL
[2024-01-03 07:17] LABS: Non-Invasive Expiratory Pressure 7 CMH2O
[2024-01-03] MEDS: AMIODARONE HCL 200 MG TABLET 400 MG PO (07:17)
[2024-01-03] MEDS: LEVOTHYROXINE SODIUM 150 MCG TABLET PO (07:18)
[2024-01-03] MEDS: VENLAFAXINE HCL XR 37.5 MG CAP PO (07:19)
[2024-01-03] MEDS: carvediloL 12.5 MG TABLET PO (08:51)
[2024-01-03] MEDS: clonazePAM (*CRX) 0.5 MG TABLET PO ×2 (08:51→14:00)
[2024-01-03] MEDS: FUROSEMIDE INJ 40 MG/4 ML VIAL IV PUSH (08:52)
[2024-01-03] MEDS: ROSUVASTATIN 10 MG TABLET 40 MG PO (08:52)
[2024-01-03] MEDS: POTASSIUM CHLORIDE 20 MEQ ER TABLET PO ×2 (08:52→11:50)
[2024-01-03 14:06] LABS: Anion Gap 3 mmol/L (4-12); Blood Urea Nitrogen 15 mg/dL (7-17); Calcium 8.5 mg/dL (8.4-10.2); Carbon Dioxide 35 mmol/L (22-30); Chloride 102 mmol/L (98-107); Estimated CRCL calculation 37 ml/min; Estimated Glomerular Filt Rate 43; Glucose 130 mg/dL (65-110); Magnesium 2.1 mg/dL (1.6-2.3); Potassium 3.5 mmol/L (3.4-5.0); Sodium 140 mmol/L (137-145)
[2024-01-03 14:19] LABS: Troponin I 0.051 ng/mL (0.000-0.034)
--- NOTE | 2024-01-03 14:43 | PM.DS ---
DS: Admitting Diagnosis Discharge Date January 03, 2024 Admitting Diagnosis Acutely decompensated heart failure DS: Discharge Diagnosis Discharge Diagnosis (1) Heart failure with reduced ejection fraction: Code(s): I50.20 - Unspecified systolic (congestive) heart failure Status: Acute DS: Summary Hospital Course Hospital Course: This is a 78-year-old female with a history of heart failure reduced ejection fraction, nonischemic cardiomyopathy status post ICD insertion, venous thrombosis on anticoagulation, chronic kidney disease, hypothyroidism, GERD, depression, anxiety and other comorbidities who presented with rapidly progressive worsening shortness of breath. She reports she has not been taking her diuretic as she went on a road trip and did not want to frequently to urinate. On arrival to the ER she was on a non-rebreather mask. Initial blood gas showing hypercapnia and after BiPAP use this was improved. After 1 day she is on room air and breathing at her normal. She has been heavily counseled on the importance of taking her medications as prescribed. She preferred to have any medication adjustments done with her PCP to which she was advised to see within 1 week. All of her questions were answered to satisfaction. The patient is stable for discharge to home on January 03, 2024. The patient was full code during her admission. Time Spent with Patient Time attestation: Total time spent providing and/or coordinating discharge services: Exam Const: General: cooperative and no acute distress Resp: Effort & Inspection: normal respiratory effort Auscultation: clear to auscultation bilaterally Cardio: Rate: regular rate Rhythm: regular rhythm Heart sounds: S1 normal heart sound present and S2 normal heart sound present GI: GI Palp: No abdominal tenderness Auscultation: normal bowel sounds DS: Data Data Completed and Pending Labs on day of discharge: Labs from last 24 hours 01/03/24 01/03/24 01/03/24 13:45 06:59 04:02 WBC 7.9 RBC 3.40 L Hgb 11.2 L Hct 35.4 L MCV 104.1 H MCH 32.9 MCHC 31.6 L RDW 13.5 Plt Count 175 MPV 9.1 Puncture Site Left brachial ABG pH 7.452 H ABG pCO2 48.3 H ABG pO2 77.4 L ABG PO2/FiO2 Ratio 3.10 ABG HCO3 33.0 H ABG O2 Saturation 95.8 ABG O2 Content 15.7 L ABG Base Excess 7.9 A-a Gradient 43.5 Oxyhemoglobin 94.3 Carboxyhemoglobin 0.3 Methemoglobin 0.1 Reduced Hemoglobin 5.3 H Total Hemoglobin 11.8 L O2 Delivery Device Non-invasive vent O2 Liters/Min Not Reportable Vent Rate 20 FiO2 25 Expiratory Pressure 7 Inspiratory Pressure 14 Sodium 140 141 Potassium 3.5 3.3 L Chloride 102 104 Carbon Dioxide 35 H 31 H Anion Gap 3 L 6 BUN 15 15 Creatinine 1.20 H 1.30 H Estim Creat Clear Calc 37 34 Estimated GFR 43 L 40 L Glucose 130 H 100 Lactic Acid Calcium 8.5 8.6 Magnesium 2.1 2.1 Troponin I 0.051 H* C-Reactive Protein Procalcitonin 01/02/24 01/02/24 21:40 15:35 WBC RBC Hgb Hct MCV MCH MCHC RDW Plt Count MPV Puncture Site ABG pH ABG pCO2 ABG pO2 ABG PO2/FiO2 Ratio ABG HCO3 ABG O2 Saturation ABG O2 Content ABG Base Excess A-a Gradient Oxyhemoglobin Carboxyhemoglobin Methemoglobin Reduced Hemoglobin Total Hemoglobin O2 Delivery Device O2 Liters/Min Vent Rate FiO2 Expiratory Pressure Inspiratory Pressure Sodium Potassium Chloride Carbon Dioxide Anion Gap BUN Creatinine Estim Creat Clear Calc Estimated GFR Glucose Lactic Acid 1.5 Calcium Magnesium Troponin I 0.118 H* C-Reactive Protein 1.0 Procalcitonin 0.6 Discharge Plan Discharge Attending physician on discharge: Opal Saravia Discharging Clinician: Opal Saravia Patient Disposition: Home, Self-Care Activity: may shower Diet: heart h
== END 2024-01-03 15:51 | disposition home or self-care (01) ==
LOC: ANHED 13:27 → ANHIMU 16:02
PROVIDERS: Physician Assistant; Student in an Organized Health Care Education/Training Program; Admitting Provider Family Medicine; Emergency Provider Emergency Medicine; PCP Internal Medicine; Visit Provider General Practice
DX: I50.20 Unspecified systolic (congestive) heart failure (principal); J96.01 Acute respiratory failure with hypoxia; J96.02 Acute respiratory failure with hypercapnia; N18.9 Chronic kidney disease, unspecified; R77.8 Other specified abnormalities of plasma proteins; R79.89 Other specified abnormal findings of blood chemistry; Z79.01 Long term (current) use of anticoagulants; F41.8 Other specified anxiety disorders; E78.5 Hyperlipidemia, unspecified; K21.9 Gastro-esophageal reflux disease without esophagitis; E03.9 Hypothyroidism, unspecified; I13.0 Hypertensive heart and chronic kidney disease with heart failure and stage 1 through stage 4 chronic kidney disease, or unspecified chronic kidney disease; Z86.73 Personal history of transient ischemic attack (TIA), and cerebral infarction without residual deficits; Z96.653 Presence of artificial knee joint, bilateral; Z20.822 Contact with and (suspected) exposure to COVID-19
CPT/HCPCS: 36415; 36600; 71045; 80048; 80053; 82375; 82805; 83050; 83605; 83735; 83880; 84145; 84484; 85025; 85027; 85610; 85730; 86140; 87040; 87637; 93005; 96374; 96376; 99285; A9270; G0378; J1940

== ENCOUNTER 2024-01-10 00:57 | Day surgery (SDC) | payer MEDICARE, SELFPAY ==
[2023-12-27 09:38] VITALS: BMI 29.9
[2024-01-10 12:59] VITALS: BP 152/73; PULSE 65; RESP 19; TEMP 36.6; O2SAT 96
--- NOTE | 2024-01-10 13:13 | WPDANESEPPF ---
Anes - Initial Pre Proc Eval Procedure: Operation Date: 01/10/24 14:00 Proposed Procedures p Esophagogastroduodenoscopy - Cameron Loco MD Date/Time: 01/10/24 13:13 Surgeon: Cameron Loco MD Pre Op Diagnosis: Nausea, Dysphagia Patient Data Age: 78 Gender: F Height: 1.63 m Weight: 78.8 kg Last Vital Signs Temp 97.9 F 01/10/24 12:59 Pulse 65 01/10/24 12:59 Resp 19 01/10/24 12:59 BP 152/73 H 01/10/24 12:59 Pulse Ox 96 01/10/24 12:59 O2 Del Method Room Air 01/10/24 12:59 Allergies Allergy/AdvReac Type Severity Reaction Status Date / Time codeine Allergy Unknown Unknown Verified 01/10/24 12:57 lorazepam Allergy Unknown Unknown Verified 01/10/24 12:57 tramadol Allergy Unknown Unknown Verified 01/10/24 12:57 NSAIDS (Non-Steroidal AdvReac Unknown Nausea Verified 01/10/24 12:57 Anti-Inflamma sumatriptan AdvReac Unknown FELT Verified 01/10/24 12:57 HORRIBLE Home Medications Medication Instructions Recorded Confirmed Type carvedilol 12.5 mg tablet 12.5 mg PO Q12H 03/22/21 01/02/24 History trazodone 150 mg tablet 150 mg PO HS 03/22/21 01/02/24 History furosemide 40 mg tablet 40 mg PO DAILY #30 tabs 03/25/21 01/02/24 Rx venlafaxine 37.5 mg 37.5 mg PO DAILY 08/22/22 01/02/24 History capsule,extended release 24 hr (Effexor XR) ondansetron 4 mg disintegrating 4 mg PO Q8H PRN nausea and 12/08/23 01/02/24 Rx tablet vomiting #14 tabs rosuvastatin 40 mg tablet 40 mg PO DAILY 12/27/23 01/02/24 History Vitamin D3 50,000 units PO DAILY 01/02/24 01/02/24 History amiodarone 200 mg tablet 400 mg PO DAILY 01/02/24 01/02/24 History cariprazine 1.5 mg capsule 1.5 mg PO DAILY 01/02/24 01/02/24 History (Vraylar) clonazepam 0.5 mg tablet 0.5 mg PO TID 01/02/24 01/02/24 History levothyroxine 150 mcg tablet 150 mcg PO DAILY 01/02/24 01/02/24 History ropinirole 0.5 mg tablet 0.5 mg PO QHS 01/02/24 01/02/24 History warfarin 3 mg tablet 3 mg PO DAILY 01/02/24 01/02/24 History Patient hx anesthesia problems: none Family hx anesthesia problems: none Results Review: All pre-operative results and documents have been reviewed as part of the pre-operative evaluation. [facility] Past Medical History Medical History Bipolar disorder Cardiomyopathy Chronic anticoagulation Chronic kidney disease Deep venous thrombosis Depression with anxiety Gastroesophageal reflux disease Heart failure with reduced ejection fraction EF was 20 to 25% in March 2021. Hyperlipidemia Hypertension Hypothyroidism Left bundle branch block Transient ischemic attack Surgical History Surgical History History of bilateral knee arthroplasty History of bladder suspension procedure History of cardiac catheterization History of colon resection History of orthopedic surgery History of partial hysterectomy History of repair of left rotator cuff History of tonsillectomy Family History Family History Father Hypertension Cerebrovascular accident Mother Family history of diabetes mellitus in first degree relative Family history of lung disease Family history of coronary artery disease Sibling Family history of diabetes mellitus in first degree relative Cardiomyopathy Son Family history of mental disorder Other Family history of alcoholism Family history of arthritis Family history of gout Social History Social History (Updated 01/02/24 @ 21:13 by Ana Rosa Srivastava PA-C) Social History: Surrogate medical decision maker: Man Linton, sibling. Code status: Full code. Smoking status: Never smoker Alcohol intake: never Substance use: never Substance use type: does not use Do You Feel Safe in your Home?: Yes Lack of Transportation: No Lack of Food: Never True Current Housing: [facility]
[2024-01-10] MEDS: LACTATED RINGERS 1,000 ML 150 ML IV CONT (13:14)
--- NOTE | 2024-01-10 14:01 | WPDHPUPDATE1 ---
History and Physical Update Update Date/Time: 01/10/24 14:01 History and Physical has been reviewed, including an updated exam of the patient. There are NO changes in the patient's condition. Risks, benefits, and alternatives have been discussed and questions answered. Patient agrees to proceed with procedure.
[2024-01-10 14:22] VITALS: BP 151/71; PULSE 60; RESP 21; O2SAT 93
[2024-01-10 14:32] VITALS: BP 155/78; PULSE 61; RESP 16; O2SAT 96
[2024-01-10 14:42] VITALS: BP 156/83; PULSE 60; RESP 19; O2SAT 98
== END 2024-01-10 14:47 | disposition home or self-care (01) ==
PROVIDERS: PCP Internal Medicine; Visit Provider Internal Medicine Gastroenterology
PROC: 0DJ08ZZ Inspection of Upper Intestinal Tract, Via Natural or Artificial Opening Endoscopic (ICD-10-PCS; CPT 43235; principal; 2024-01-10 14:00)
DX: K44.9 Diaphragmatic hernia without obstruction or gangrene (principal); K29.50 Unspecified chronic gastritis without bleeding; I42.9 Cardiomyopathy, unspecified; I13.0 Hypertensive heart and chronic kidney disease with heart failure and stage 1 through stage 4 chronic kidney disease, or unspecified chronic kidney disease; I50.9 Heart failure, unspecified; N18.9 Chronic kidney disease, unspecified; E78.5 Hyperlipidemia, unspecified; E03.9 Hypothyroidism, unspecified; F31.9 Bipolar disorder, unspecified; F41.8 Other specified anxiety disorders; Z86.73 Personal history of transient ischemic attack (TIA), and cerebral infarction without residual deficits; Z86.718 Personal history of other venous thrombosis and embolism; Z79.01 Long term (current) use of anticoagulants; Z90.49 Acquired absence of other specified parts of digestive tract; Z95.810 Presence of automatic (implantable) cardiac defibrillator
CPT/HCPCS: 43239; 88305; J2405; J2704; J3010; J7120

== ENCOUNTER 2024-09-16 13:56 | Outpatient (CLI) | payer MEDICARE, SELFPAY ==
--- NOTE | ~2024-09-16 | XR_ITS ---
XR hip RT 2V w AP pelvis Ordering provider: Masoud Reddy, History: . Pain in rt hip, NKI X AUGUST 2024 . Comparison: None. FINDINGS: BONES: No acute fracture or dislocation. HIP JOINT SPACES: Mild to moderate osteoarthritic changes. SACROILIAC JOINT SPACES/LUMBAR SPINE: The sacroiliac joint spaces are normal. Mild degenerative butt es of the visualized lower lumbar spine. PUBIC SYMPHYSIS: Normal. SOFT TISSUES: Normal. IMPRESSION: No acute osseous abnormality pelvis and right hip. Reviewed, dictated and finalized at location A. ANALYSIS TECHNICIAN
[2024-09-16 15:45] LABS: Basophils Absolute Auto 0.1 K/mm3 (0.0-0.1); Basophils Percent Auto 0.7 % (0.2-1.2); Eosinophils Absolute Auto 0.1 K/mm3 (0-0.3); Eosinophils Percent Auto 1.3 % (0-4.4); Hematocrit 41.4 % (37.0-47.0); Hemoglobin 13.1 g/dL (12.0-15.0); Immature Granulocyte Absolute 0.06 K/mm3 (0.00-0.031); Immature Granulocyte Percent A 0.7 % (0-0.5); Lymphocytes Absolute Auto 2.14 K/mm3 (0.9-3.2); Lymphocytes Percent Auto 26.1 % (18.3-44.2); Mean Corpuscular HGB Conc 31.6 g/dl (32-36); Mean Corpuscular Hemoglobin 33.3 pg (26-34); Mean Corpuscular Volume 105.3 fl (80-100); Mean Platelet Volume 9.3 fl (7.4-10.4); Monocytes Absolute Auto 0.8 K/mm3 (0.1-0.6); Monocytes Percent Auto 9.5 % (2.6-8.5); Neutrophils Percent Auto 61.7 % (45.5-73.1); Platelet Count Result 212 k/mm3 (150-375); Red Blood Count 3.93 M/mm3 (4.2-5.4); White Blood Count 8.2 K/mm3 (4.5-10.0)
[2024-09-16 16:04] LABS: Alanine Aminotransferase 40 U/L (6-35); Albumin Level 4.5 g/dL (3.5-5.1); Alkaline Phosphatase 57 U/L (38-126); Anion Gap 6 mmol/L (4-12); Aspartate Amino Transferase 33 U/L (14-36); Bilirubin,Total 0.4 mg/dL (0.2-1.3); Blood Urea Nitrogen 27 mg/dL (7-17); Calcium 9.6 mg/dL (8.4-10.2); Carbon Dioxide 30 mmol/L (22-30); Chloride 99 mmol/L (98-107); Cholesterol 161 mg/dL (0-200); Estimated Glomerular Filt Rate 33; Glucose 93 mg/dL (65-110); HDL Direct 55 mg/dL; Potassium 5.4 mmol/L (3.4-5.0); Sodium 135 mmol/L (137-145); Triglycerides 231 mg/dL (<150)
[2024-09-16 16:15] LABS: LDL Cholesterol Direct 56 mg/dL
[2024-09-16 16:34] LABS: Thyroid Stimulating Hormone Reflex 0.595 uIU/mL (0.465-4.68)
[2024-09-16 17:01] LABS: Macrocytosis 1+ (NORMAL); Platelet Estimate Adequate (Adequate); Schistocytes None Seen
[2024-09-16 17:06] LABS: Folic Acid 6.9 ng/mL (2.76->20)
== END 2024-09-16 13:57 | disposition home or self-care (01) ==
PROVIDERS: PCP Internal Medicine; Visit Provider Internal Medicine
DX: E03.9 Hypothyroidism, unspecified (principal); I10 Essential (primary) hypertension; R79.89 Other specified abnormal findings of blood chemistry; M25.551 Pain in right hip
CPT/HCPCS: 36415; 73502; 80053; 80061; 82607; 82746; 84443; 85025

== ENCOUNTER 2024-11-08 12:27 | Outpatient (CLI) | payer MEDICARE, SELFPAY ==
--- OUTSIDE RECORDS SUMMARY | 2024-11-08 12:48 | XMS_ITS | Encounter Summary ---
Author Organization [facility] Healthcare Address [address] [place] [address] Care Team Providers Care Svp Research & Ebusiness Operations Name Role Phone Bandar Gaffney MD Unavailable [phone] Dillan Reddy MD Primary Care Provide r Reason for Visit * Reason Onset Date Comments samples 10/23/2024 Encounter Details Date Type Department Care Team (Late st Contact Info) Description 10/23/2024 Telephone [facility] Medical [facility] Cardiology [address] [facility] [address] [facility] [address] [place] [address] Samy Ceja MD [address] [place] [address] samples Social History Tobacco Use Types Packs/Day Years Used Date Smoking Tobacco: Never Smokeless Tobacco: Never Alcohol Use Standard Drinks/Week Comments No 0 (1 standard drink = 0.6 oz pur e alcohol) Social Connection and Isolat ion Panel [NHANES] Answer Date Recorded In a typical week, how many times do you talk on the phone with family, friends, or neighbors? More than three times a week 04/13/2021 How often do you get togethe r with friends or relatives? More than three times a week 04/13/2021 How often do you attend chur ch or judaism services? Never 04/13/2021 Do you belong to any clubs o r organizations such as buddhism groups, unions, fraternal or athletic groups, or school groups? No 04/13/2021 How often do you attend meet ings of the clubs or organizations you belong to? Never 04/13/2021 Are you , , di vorced, , never , or living with a partner? 04/13/2021 AUDIT-C Answer Date Recorded Q1: How often do you have a drink containing alc ohol? Never 04/12/2021 Average Number of Drinks Not on file 021 Frequency of Binge Drinking Not on file 05/2021 Overall Financial Resource Strain (CARDIA) Answe r Date Recorded How hard is it for you to pa y for the very basics like food, housing, medical care, and heating? Not hard at all 04/13/2021 PRAPARE - Transportation Answer Date Re corded In the past 12 months, has l ack of transportation kept you from medical appointments or from getting medications? No 04/04 In the past 12 months, has l ack of transportation kept you from meetings, work, or from getting things needed for daily living? No 04/13/2021 Personal Safety Answer Date Recorded Have you ever been in or are you currently in a harmful physical or emotional relationship or is someone making you feel afraid or unsafe? Denies 03/22/2023 Comments Unknown Sex and Gender Information Value Date Recorded Sex Assigned at Not on file Legal Sex Female 2:33 AM NETWORK SERVICES PROJECT MANAGER Gender Identity Not on file Sexual Orientation Not on file documented as of this encounter Miscellaneous Notes * Telephone Encounter - Kayla Aguilera MA - 10/23/2024 2:33 PM CST Pt aware we have samples ready for pharmacy picking tech at [address] [employer] SERVICES PROJECT MANAGER * Telephone Encounter - Freya Asencio - 10/23/2024 1:35 PM CST Patient requesting samples of sacubitriL-valsartan (Entresto) 24-26 mg. Contact [phone] [employer] SERVICES PROJECT MANAGER documented in this encounter Plan of Treatment Not on file documented as of this encounter Visit Diagnoses Not on filedocumented in this encounter Care Teams Svp Research & Ebusiness Operations Relationship Specialty Start Date End Date Dillan Reddy MD [address] [address] PCP - General Internal Medicine 11/09/23 Bandar Gaffney MD Consulting Physician Cardiology 04/13/21 documented as of this encounter
--- OUTSIDE RECORDS SUMMARY | 2024-11-08 12:48 | XMS_ITS | Clinical Summary ---
Author Organization [facility] Address [address] [place] [address] Phone Care Team Providers Care Survey Research Associate Name Role Phone Lana Tovar MD Primary Care Provider + Allergies Active Allergy Reactions Criticality Noted Date Comments Lorazepam Other (see Comments) 01/13/2017 EMOTIONAL Nsaids Other (see Comments) 01/13/2017 STOMACH UPSET Other Rash 01/13/2017 A MEDICINE FOR BIPOLAR DISORDER Tramadol Nausea,Vomiting 01/13/2017 Medications polyethylene glycol (MIRALAX) Powder Mix the entire bottle with 64 oz of a clear liquid. Use as directed by the office for colonoscopy prep. 255 g 0 7 Active carvedilol (COREG) 12.5 MG Tablet Take 12.5 mg by mouth 2 times daily. 7 Active clonazePAM (KLONOPIN) 1 MG Tablet Take 1.5 mg by mouth nightly. 7 Active desoximetasone (TOPICORT) 0.25 % Cream 7 Active enalapril (VASOTEC) 5 MG Tablet Take 5 mg by mouth daily. 7 Active furosemide (LASIX) 40 MG Tablet Take 40 mg by mouth daily. 7 Active HYDROcodone-antonette taminophen (NORCO) 5-325 MG Tablet 7 Active levothyroxine (SYNTHROID) 125 MCG Tablet Take 125 mcg by mouth daily. 7 Active mirtazapine (REMERON) 15 MG Tablet 7 Active simvastatin (ZOCOR) 20 MG Tablet Take 20 mg by mouth nightly. 7 Active traZODone (DESYREL) 150 MG Tablet Take 150 mg by mouth nightly. 7 Active Potassium Chloride Mae CR (K-DUR PO) Take 20 mEq by mouth 2 times daily. 2 TABS Active Cariprazine HCl (VRAYLAR) 3 MG Capsule Take 1 Cap by mouth nightly. BIPOLAR Active other by Other route once a week. 1000MG SQ ON Monday Active raNITIdine (ZANTAC) 150 MG Tablet Take 150 mg by mouth 2 times daily as needed for Heartburn. Active ondansetron (ZOFRAN) 8 MG Tablet Take 8 mg by mouth every 8 hours as needed for Nausea. Active Cholecalciferol (VITAMIN D PO) Take 1 Tab by mouth daily. Active VITAMIN E BLEND PO Take 1 Tab by mouth daily. Active Calcium Citrate-Vitamin D (CALCIUM + D PO) Take 1 Tab by mouth daily. 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 Not on file Not on nithya e Last Filed Vital Signs Vital Sign Reading Time Taken Comments Blood Pressure 127/53 01/18/2017 8:32 AM CDT Pulse - - Temperature 36 C (96.8 F) 01/18/2017 8:32 AM CDT Respiratory Rate 17 01/18/2017 8:32 AM CDT Oxygen Saturation 99% 01/18/2017 8:32 AM CDT Inhaled Oxygen Concentration - - Weight 75.8 kg (167 lb) 01/13/2017 3:00 PM CDT Height 165.1 cm (5' 5 ) 01/13/2017 3:00 PM CDT Body Mass Index 27.79 01/13/2017 3:00 PM CDT Plan of Treatment Health Maintenance Due Date Last Done Comments DEXA Bone Density 1945 Hepatitis C Virus (HCV) Screening 1945 TdaP Immunization 1945 Respiratory Syncytial Virus (RSV) Immunization (Adult) (1 - 1-dose 75+ series) 2020 Influenza Immunization (#1) 2024 092 10/2021, 06/12/2021, 05/12/2020, Additional history exists SARS-COV-2 Immunization ( season) 2024 05/26/2022, 02/22/2022, 06/30/2021, Additional history exists Colonoscopy High Risk Discontinued 01/18/2017 Colonoscopy Discontinued 01/18/2017 Colorectal Cancer Screening Discontinued Zoster Immunization Completed 05/01/2018, 8 Pneumococcal Immunization (50+ years) Completed 05/15/2018, 04/06/2016 Pneumococcal Immunization Combined Discontinued 05/15/2018, 04/06/2016 Cologuard Discontinued Hepatitis B Immunization Aged Out No longer eligible based on patient's age to complete this topic Immunochemical Fecal Occult Blood Discontinued Meningococcal Immunization (ACWY) Aged Out No longer eligible based on patient's age to complete this topic Rotavirus Immunization Aged Out No lo nger eligible based on patient's age to complete this topic Insurance MEDICARE C [facility] Care Teams Survey Research Associate Relationship Specialty Start Date End Date Lana Tovar MD [address] [place] [id number] PCP - General Family Medicine 12/23/16
--- OUTSIDE RECORDS SUMMARY | 2024-11-08 12:48 | XMS_ITS | Referral Summary ---
Author Organization [place] [address] [place] [address] Care Team Providers Care Marine Animal Trainer Name Role Phone Bandar Gaffney MD Unavailable [phone] Dillan Reddy MD Primary Care Provide r Encounters Date Type Department Care Team Description 10/23/2024 Telephone [facility] Cardiology [address] [place] [address] [address] [place] [phone] Samy Ceja MD [facility] 10/17/2024 Telephone [place] [address] [place] [phone] Samy Ceja MD 10/07/2024 7:00 AM CLOTH MEASURER Ancillary Procedure [facility] Cardiology [address] [place] [address] [place] [phone] Dilated cardiomyopathy (HCC) (Primary Dx); ICD (implantable cardioverter-defibrill ator), biventricular, in situ; VT (ventricular tachycardia) (HCC) 10/07/2024 Telephone [facility] Cardiology [address] [place] [address] [place] [phone] Samy Ceja MD Med Refill 10/02/2024 Telephone [facility] Cardiology [address] [place] [address] [place] [phone] Samy Ceja MD 09/17/2024 10:15 AM CLOTH MEASURER Office Visit [facility] Cardiology [address] [place] [address] Samy Ceja MD Dilated cardiomyopathy (HCC) (Primary Dx); VT (ventricular tachycardia) (HCC); ICD (implantable cardioverter-defibrill ator), biventricular, in situ from Last 3 Months Allergies Active Allergy Reactions Criticality Noted Date Comments Amoxicillin Diarrhea Low 08/10/2023 Codeine Vomiting,Nausea only Low Hydroxyzine Lorazepam Other (See comments) Low 01/13/2017 EMOTIONAL Naproxen Nsaids (Non-Steroidal Anti-Inflammatory Drug) Rash,Other (See comments) Medium Reaction: Other Other Rash Medium 01/13/2017 A MEDICINE FOR BIPOLAR DISORDER Sumatriptan Unknown Tolmetin Other (See comments) Low 01/13/2017 STOMACH UPSET Tramadol Nausea Only,Nausea only Low 01/13/2017 Medications traZODone (DESYREL) 150 mg tablet take 1 tablet (150MG) by oral route every day at bedtime 0 02/09/20 13 Active ondansetron ODT (ZOFRAN-ODT) 8 mg disintegrating tablet take 1 tablet (8MG) by oral route every 8 hours 0 02/09/20 13 Active clonazePAM (KlonoPIN) 1 mg tablet Take 0.5 tablets (0.5 mg total) by mouth 3 (three) times a day Active levothyroxine sodium (LEVOTHYROXINE ORAL) Take 150 mcg by mouth nightly Active acetaminophen (TYLENOL) 325 mg tablet Take 2 tablets (650 mg total) by mouth every 6 (six) hours as needed for pain 04/13/20 21 Active famotidine (PEPCID) 20 mg tablet Take 1 tablet (20 mg total) by mouth 2 (two) times a day Active warfarin (COUMADIN) 2 mg tablet Take 1 tablet (2 mg total) by mouth daily Take as directed per After Visit Summary. 30 tablet 03/26/20 23 Active spironolactone (ALDACTONE) 25 mg tablet Take 1 tablet by mouth once daily 90 tablet 2 05/07/20 24 Active sacubitriL-valsart an (Entresto) 24-26 mg tabletIndications: chronic heart failure Take 1 tablet by mouth 2 (two) times a day 180 tablet 3 06/07/20 24 Active Additional Information Patient taking differently:1 tablet oralDaily, Indications: chronic heart failure, Reported on 09/17/2024 amiodarone (PACERONE) 200 mg tablet Take 1 tablet (200 mg total) by mouth daily 60 tablet 3 10/02/19 25 025 Active carvediloL (COREG) 25 mg tablet Take 1 tablet (25 mg total) by mouth daily 90 tablet 3 10/07/19 25 Active Active Problems Problem Noted Date Diagnosed Date ICD (implantable cardioverter-defibrillator) dis charge 03/23/2023 ICD (implantable cardioverte r-defibrillator), biventricular, in situ 04/13/2021 Overview (04/21/2023): Dodge DDD Otis BI-V ICD imp on 04/12/21 for DCM, VT, Afib. Yeimy. Nora. Jose De Jesus remote. Bluetooth [employer] Component Advisory--risk for loss of bluetooth communication, higher current consumption, and reduced device longevity. VT (ventricular tachycardia) 04/12/2021 Other abnormal cytological findings on specimens from anus 04/09/2021 Allergic rhinitis 04/09/2021 Chronic pharyngitis 04/09/2021 Cobalamin deficiency 04/09/2021 Conjunctivitis 04/09/2021 Derangement of knee 04/09/2021 Osteoarthritis of knee 04/09/2021 Diarrhea 04/09/2021 Disorder of bursae of shoulder region 04/09/2021 Dizziness 04/09/2021 Fatigue 04/09/2021 Gastroesophageal reflux disease 04/09/2021 Hallucinations 04/09/2021 Abdominal pain 04/09/2021 Dysuria 04/09/2021 Hand joint pain 04/09/2021 Hip pain 04/09/2021 Knee pain 04/09/2021 Hypothyroidism 04/09/2021 Macrocytic anemia 04/09/2021 Muscle pain 04/09/2021 Noncompliance with treatment 04/09/2021 Pain in limb 04/09/2021 Neck pain 04/09/2021 Pain in elbow 04/09/2021 Osteopenia 04/09/2021 Vitamin D deficiency 04/09/2021 Upper respiratory infection 04/09/2021 Somatization disorder 04/09/2021 Serum creatinine raised 04/09/2021 Recurrent urinary tract infection 04/09/2021 Dilated cardiomyopathy 11/01/2017 Diplopia 11/06/2013 Immunizations Immunization Administration Dates Next Due Influenza, Quadrivalent, Hig h Dose, Preservative Free, Intrr 05/12/2020 Influenza, Quadrivalent, Spl it, Intramuscular 06/04/2019,05/15/2018 Influenza, Trivalent, High D ose, Split, Preservative Free, Intramuscular 05/30/2019,05/01/2018,06/08/2017,05/01 Influenza, Trivalent, IM (MDV) 05/28/2014 Influenza, Trivalent, Preser vative Free, Intramuscular 05/25/2015 Moderna SARS-CoV-2 Monovalen t Vaccination (12+ YRS) 11/18/2020,10/21/2020 Pneumococcal Conjugate PCV 13 05/15/2018 Pneumococcal Polysaccharide PPV23 04/06/2016 ZOSTER Recombinant 05/01/2018,01/04/2018 Social History Tobacco Use Types Packs/Day Years Used Date Smoking Tobacco: Never Smokeless Tobacco: Never Tobacco Cessation:Counseling Given: Not Answered Alcohol Use Standard Drinks/Week Comments No 0 [...] week 04/13/2021 How often do you attend [facility] health system or gnosticism services? Never 04/13/2021 Do you belong to any clubs o r organizations such as mandaeism groups, unions, fraternal or athletic groups, or [...] on file Legal Sex Female 2:33 AM CLOTH MEASURER Gender Identity Not on file Sexual Orientation Not on file Last Filed Vital Signs Vital Sign Reading Time Taken Comments Blood Pressure 90/60 09/17/2024 10:09 AM CLOTH MEASURER Pulse 68 09/17/2024 10:09 AM CLOTH MEASURER Temperature 36.6 C (97.9 F) 03/26/2023 8:20 AM CDT Respiratory Rate 16 03/26/2023 8:20 AM CDT Oxygen Saturation 97% 09/17/2024 10:09 AM CLOTH MEASURER Inhaled Oxygen Concentration - - Weight 81.3 kg (179 lb 3.2 oz) 09/17/2024 10:09 AM CLOTH MEASURER Height 162.6 cm (5' 4 ) 09/17/2024 10:09 AM CLOTH MEASURER Body Mass Index 30.76 09/17/2024 10:09 AM CLOTH MEASURER Plan of Treatment Not on file Medical Devices Implanted Type Area Barmaid Device Identifier Shelf Expiration Date Model / Serial / Lot Dodge Vascular [id number] Defib Cardiac [id number] Otis Hf Df4 Is-4 Is-1 [facility] - [id number] - [id number] Implanted:Qty: 1 on 04/12/2021 by Bandar Gaffney MD at [facility] ICD Dodge Vascular [id number] 02/01/2023 C [id number] / [id number] / [employer] 7120q/65 Durata 7fr 65cm 2 Coil Df-4 True Bipolar Active Fixation - [id number] - [id number] Implanted:Qty: 1 on 04/12/2021 by Bandar Gaffney MD at [facility] Lead [employer] [id number] 02/01/2022 7120Q/65 / [id number] / [employer] 2088tc/52 Tendril Sts 6fr 52cm Is-1 Connector Active Fixation Bipolar Soft - [id number] - [id number] Implanted:Qty: 1 on 04/12/2021 by Bandar Gaffney MD at [facility] Lead [employer] [id number] 03/03/2024 2088TC/52 / [id number] / [employer] 1458q/86 Quartet 5fr [id number] 4 Electrode Is-4 Connector Steerable Tip - [id number] - [id number] Implanted:Qty: 1 on 04/12/2021 by Bandar Gaffney MD at [facility] Lead [employer] [id number] 02/02/2024 1458Q/86 / [id number] / Procedures Procedure Name Priority Date/Time Associated Diagnosis Comments DEVICE CHECK - REMOTE Routine 10/08/2024 4:30 PM CLOTH MEASURER Dilated cardiomyopathy (HCC) ICD (implantable cardioverter-defibrill ator), biventricular, in situ VT (ventricular tachycardia) (HCC) from Last 3 Months Results * DEVICE CHECK - REMOTE (10/08/2024 4:30 PM CLOTH MEASURER) Anatomical Region Laterality Modality Other Narrative 11/05/2024 10:29 AM CLOTH MEASURER Dodge DDD Otis BI-V ICD imp on 04/12/21 for DCM, VT, Afib. Yeimy. Radha Dela Cruz remote. Bluetooth [employer] Component Advisory--risk for loss of bluetooth communication, higher current consumption, and reduced device longevity. Routine DDD ICD Remote. Transmission attached. Battery status 59%, 4.4 years remaining battery life to LEANDRA. Stable Charge time and Shock impedance. Stable lead impedances, pacing, and sensing threshold. Presenting rhythm: -AP/BP AP-72 %, Bi-V P-98 %. (0) AT/AF episodes noted. (0) Ventricular tachy arrhythmias detected. Medication: Warfarin, amiodarone 200 mg, carvedilol 25 mg, Entresto Follow up: Office Pacemaker/ICD scheduled 02/19/25 Jose De Jesus remote 7 months Chadd Martínez RN Samy Ceja MD [facility] PROC EDURES Final Result from Last 3 Months Insurance MEDICARE SOLUTIONS [place] [address] MEDICARE SOLUTIONS Advance Directives For more information, please contact: [phone] * Full Code (Latest Code Status on File) Date Activated Date Inactivated Comments 03/23/2023 7:04 AM 03/26/2023 7:27 PM Care Teams Marine Animal Trainer Relationship Specialty Start Date End Date Dillan Reddy MD [address] [address] PCP - General Internal Medicine 11/09/23 Bandar Gaffney MD Consulting Physician Cardiology 04/13/21
--- OUTSIDE RECORDS SUMMARY | 2024-11-08 12:48 | XMS_ITS | Clinical Summary ---
Author Organization [facility] [place] [address] Address [address] [place] [address] Care Team Providers Care Sharepoint Architect Name Role Phone Bandar Gaffney MD Unavailable [phone] Dillan Reddy MD Primary Care Provide r Allergies Active Allergy Reactions Criticality Noted Date [...] in situ 04/13/2021 Overview (04/21/2023): Dodge DDD [place] BI-V ICD imp on 04/12/21 for DCM, VT, Afib. Yeimy. Nora. Jose De Jesus [facility]. Bluetooth Circuit Component Advisory--risk for loss of [...] infection 04/09/2021 Dilated cardiomyopathy 11/01/2017 Diplopia 11/06/2013 Encounters Date Type Department Care Team Description 10/23/2024 Telephone [facility] Cardiology [address] [place] [address] [place] [phone] Samy Ceja MD [facility] 10/17/2024 Telephone [place] [address] [place] [phone] Samy Ceja MD 10/07/2024 7:00 AM SEWING MACHINE ATTACHMENT TESTER Ancillary Procedure [facility] Cardiology [address] [place] [address] [place] [phone] Dilated cardiomyopathy (HCC) (Primary Dx); ICD (implantable cardioverter-defibrill ator), biventricular, in situ; VT (ventricular tachycardia) (HCC) 10/07/2024 Telephone [facility] Cardiology [address] [place] [address] [place] [phone] Samy Ceja MD Med Refill 10/02/[address] [phone] Samy Ceja MD 09/17/2024 10:15 AM SEWING MACHINE ATTACHMENT TESTER Office Visit [facility] Cardiology [address] [place] [address] [place] [phone] Samy Ceja MD Dilated cardiomyopathy (HCC) (Primary Dx); VT (ventricular tachycardia) (HCC); ICD (implantable cardioverter-defibrill ator), biventricular, in situ from Last 3 Months Immunizations Immunization Administration Dates Next Due Influenza, Quadrivalent, Hig h Dose, Preservative Free, Intrr 05/12/2020 Influenza, Quadrivalent, Spl it, Intramuscular 06/04/2019,05/15/2018 Influenza, Trivalent, High D ose, Split, Preservative Free, Intramuscular 05/30/2019,05/01/2018,06/08/2017,05/01 Influenza, Trivalent, IM (MDV) 05/28/2014 Influenza, Trivalent, Preser vative Free, Intramuscular 05/25/2015 Moderna SARS-CoV-2 Monovalen t Vaccination (12+ YRS) 11/18/2020,10/21/2020 Pneumococcal Conjugate PCV 13 05/15/2018 Pneumococcal Polysaccharide PPV23 04/06/2016 ZOSTER Recombinant 05/01/2018,01/04/2018 Surgical History Surgery Date Site/Laterality Comments ROTATOR CUFF REPAIR Left Rotator Cuff Repair TOTAL KNEE ARTHROPLASTY Left Total Knee Replacement OTHER SURGICAL HISTORY Hysterectomy partial Medical History Medical History Date Comments Hypothyroidism Hypothyroidism Hx Other Medical Cardiomyopathy - NICM Osteoarthritis Osteoarthritis Hx Other Medical Bipolar Disorde r CHF (congestive heart failure) (HCC) Hypertension Family History Medical History Relation Name Comments Heart failure Mother 2 Congestive Hea rt Failure; Relation Name Status Comments Mother 1 Alive Mother 2 Social History Tobacco Use Types Packs/Day Years [...] 04/13/2021 How often do you attend [employer] or hoahaoism services? Never 04/13/2021 Do you belong to any clubs o r organizations such as hoahaoism groups, unions, fraternal or athletic groups, or [...] on file Legal Sex Female 2:33 AM SEWING MACHINE ATTACHMENT TESTER Gender Identity Not on file Sexual Orientation Not on file Obstetrics History Last Filed Vital Signs Vital Sign Reading Time Taken Comments Blood Pressure 90/60 09/17/2024 10:09 AM SEWING MACHINE ATTACHMENT TESTER Pulse 68 09/17/2024 10:09 AM SEWING MACHINE ATTACHMENT TESTER Temperature 36.6 C (97.9 F) 03/26/2023 8:20 AM CDT Respiratory Rate 16 03/26/2023 8:20 AM CDT Oxygen Saturation 97% 09/17/2024 10:09 AM SEWING MACHINE ATTACHMENT TESTER Inhaled Oxygen Concentration - - Weight 81.3 kg (179 lb 3.2 oz) 09/17/2024 10:09 AM SEWING MACHINE ATTACHMENT TESTER Height 162.6 cm (5' 4 ) 09/17/2024 10:09 AM SEWING MACHINE ATTACHMENT TESTER Body Mass Index 30.76 09/17/2024 10:09 AM SEWING MACHINE ATTACHMENT TESTER Plan of Treatment Health Maintenance Due Date Last Done Comments Depression Screening 1945 Hepatitis C Screening 1945 Osteoporosis Screening-Bone Density Scan 1945 DTaP/Tdap/Td Vaccine (1 - Tdap) 1956 Hepatitis B Screening 12/02/1963 Well Visit 65+ 2010 Fall Risk Assessment 03/26/2024 03/26/2023 Covid-19 Vaccine (5 - 2023-2 5 season) 2024 02/22/2022, 06/30/2021, 11/18/2020, Additional history exists Influenza Vaccine (#1) 2024 , 06/04/2019, 05/30/2019, Additional history exists Zoster Vaccine Completed 05/01/2018, 01/04/2018 Pneumococcal vaccine 65+ Completed 05/15/2018, 11/2015 Medical Devices Implanted Type Area Relief Master Device Identifier Shelf Expiration Date Model / Serial / Lot Dodge Vascular [id number] Defib Cardiac [id number] [place] Hf Df4 Is-4 Is-1 [facility] - [id number] - [id number] Implanted:Qty: 1 on 04/12/2021 by Bandar Gaffney MD at [facility] ICD Dodge Vascular [id number] 02/01/2023 C [id number] / [id number] / [employer] 7120q/65 Durata 7fr 65cm 2 Coil Df-4 True Bipolar Active Fixation - [id number] - [id number] Implanted:Qty: 1 on 04/12/2021 by Bandar Gaffney MD at [facility] Lead [employer] [id number] 02/01/2022 7120Q/65 / [id number] / [employer] 2088tc/52 Tendril Sts 6fr 52cm Is-1 Connector Active Fixation Bipolar Soft - [id number] - [id number] Implanted:Qty: 1 on 04/12/2021 by Bandar Gaffney MD at [facility] Lead [employer] [id number] 03/03/2024 2088TC/52 / [id number] / [employer] 1458q/86 Quartet 5fr [id number] Electrode Is-4 Connector Steerable Tip - [id number] - [id number] Implanted:Qty: 1 on 04/12/2021 by Bandar Gaffney MD at [facility] Lead [employer] [id number] 02/02/2024 1458Q/86 / [id number] / Procedures Procedure Name Priority Date/Time Associated Diagnosis Comments DEVICE CHECK - REMOTE Routine 10/08/2024 4:30 PM SEWING MACHINE ATTACHMENT TESTER Dilated cardiomyopathy (HCC) ICD (implantable cardioverter-defibrill ator), biventricular, in situ VT (ventricular tachycardia) (HCC) from Last 3 Months Results * DEVICE CHECK - REMOTE (10/08/2024 4:30 PM SEWING MACHINE ATTACHMENT TESTER) Anatomical Region Laterality Modality Other Narrative 11/05/2024 10:29 AM SEWING MACHINE ATTACHMENT TESTER Dodge DDD [place] BI-V ICD imp on 04/12/21 for DCM, [...] Final Result from Last [address] [place] [address] MEDICARE SOLUTIONS [facility] [place] [id number] MEDICARE SOLUTIONS Advance Directives For more information, please contact: [phone] * Full Code (Latest Code Status on File) Date Activated Date Inactivated Comments 03/23/2023 7:04 AM 03/26/2023 7:27 PM Care Teams Sharepoint Architect Relationship Specialty Start Date End Date Dillan Reddy MD [address] [address] PCP - General Internal Medicine 11/09/23 Bandar Gaffney MD Consulting Physician Cardiology 04/13/21
--- OUTSIDE RECORDS SUMMARY | 2024-11-08 12:49 | XMS_ITS ---
Author Organization [facility] [employer] Address [address] [facility] [address] [place] [address] Care Team Providers Care District Customs Director Name Role Phone Maureen URBINA, Masoud Primary Care Provider Un available Patric Amaya Unavailable [phone] REASON FOR VISIT Refill Medications Medication SIG (Take, Route, Fr equency, Duration) Notes Start Date End Date Status traZODone HCl 150 MG 1.5 tablet at bedti me Oral Once a day for 30 days 09/13/2024 Active clonazePAM 0.5 MG 1 tablet Oral three times a day for 30 days 09/13/2024 Active Social History Sex Assigned At : Social History Observation Description Sex Assigned At Female Encounters Encounter Location Date Provider Diagnosis [facility] [address] [facility] [address] [facility] [address] [place] [address] 09/13/2024 Patric Amaya Generalized anxiety disorder F41.1 and Primary insomnia F51.01 Assessments Encounter Date Diagnosis (ICD Code) Assessment Notes Treatment Notes Treatment Clinical Notes Section Notes 09/13/2024 Generalized anxiety disorder (ICD-10 - F41.1) 09/13/2024 Primary insomnia (ICD-10 - F51.01) Plan Of Treatment Medication Medication Name Sig Start Date Stop Date Notes traZODone HCl 150 MG 1.5 tablet at bedti me Oral Once a day for 30 days 09/13/2024 clonazePAM 0.5 MG 1 tablet Oral three times a day for 30 days 09/13/2024 Next Appt Details Provider Name:Patric Amaya , 11/14/2024 01:30:00 PM, [address], [facility] [address], [place], [address], Provider Name:Patric Amaya , 12/12/2024 01:00:00 PM, [address], [facility] [address], [place], [address], Progress Notes * JAILENE CHOPRA KDOB:[birth year] (78 yo F)Acc No.[id number]:09/13/2024 Patient: JAILENE BELTRAN :1945 A ge:78 Y S ex:Female Address:[address] [place] [address] , [facility] [address] * Refills Start clonazePAM Tablet, 0.5 MG, Oral, 90 Tablet, 1 tablet, three times a day, 30 days, Refills=0 Start traZODone HCl Tablet, 150 MG, Oral, 45 Tablet, 1.5 tablet at bedtime, Once a day, 30 days, Refills=0 Subjective: * Chief Complaints: * R efill * Medical History: * Surgical History: * Hospitalization/Major Diagno stic Procedure: * Medications: Objective: * Vitals: * Physical Examination: Assessment: * Assessment: 1. G eneralized anxiety disorder - F41.1 (Primary) 2 . P rimary insomnia - F51.01 Plan: * Treatment: 2. P rimary insomnia Start traZODone HCl Tablet, 150 MG, 1.5 tablet at bedtime, Oral, Once a day, 30 days, 45 Tablet, Refills 0. * Procedure Codes: * true * Date: Generated for [place] donnelly/Danny/eTransmitting on: 0 11/08/2024 12:48 PM SOLAR DESIGNER/INSTALLER
--- OUTSIDE RECORDS SUMMARY | 2024-11-08 12:49 | XMS_ITS | Encounter Summary ---
Author Organization [facility] Address [address] [facility] [address] [place] [address] Care Team Providers Care Paint Preparer Name Role Phone Lana Tovar MD Primary Care Provider + Lana Tovar MD Primary Care Provider + Bandar Gaffney MD Unavailable [phone] Dillan Reddy MD Primary Care Provide r Encounter Details Date Type Department Care Team (Late st Contact Info) Description 2016 Orders Only [facility] ProviderSaurabh MD [address] [place] [address] Social History Tobacco Use Types Packs/Day Years Used Date Smoking Tobacco: Never Alcohol Use Standard Drinks/Week Comments No 0 (1 standard drink = 0.6 oz pur e alcohol) Comments Unknown Sex and Gender Information Value Date Recorded Sex Assigned at Not on file Legal Sex Female 2:33 AM CARBON SETTER Gender Identity Not on file Sexual Orientation Not on file documented as of this encounter Plan of Treatment Not on file documented as of this encounter Procedures Procedure Name Priority Date/Time Associated Diagnosis Comments CARDIOLOGY REPORT 2016 documented in this encounter Results * CARDIOLOGY REPORT (2016) Anatomical Region Laterality Modality Other Narrative 2016 Ordered by an unspecified provider. Historical Provider [facility] Final Result documented in this encounter Visit Diagnoses Not on filedocumented in this encounter Care Teams Paint Preparer Relationship Specialty Start Date End Date Lana Tovar MD PCP - General 12/02/16 11/08/23 Lana Tovar MD PCP - General 02/11/13 12/01/16 Dillan Reddy MD [address] [address] PCP - General Internal Medicine 11/09/23 Bandar Gaffney MD Consulting Physician Cardiology 04/13/21 documented as of this encounter
--- OUTSIDE RECORDS SUMMARY | 2024-11-08 12:49 | XMS_ITS ---
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 Name Role Phone Maureen URBINA, Masoud Primary Care Provider Un available Jose Luis Patric Unavailable [phone] Allergies Allergen (clinical drug ingredient) Drug/Non Drug Allergy documented on EMR Reaction Allergy Type Onset Date Status Non-steroidal anti-inflammatory agent (FN) NSAIDS (NON-STEROIDAL ANTI-INFLAMMATORY DRUG) (uncoded) Unknown Allergy 01/12/2024 Active lorazepam Ativan Unknown Drug Allergy 01/12/2024 Active Lactose Unknown Drug Allergy 01/12/2024 Active lamotrigine LaMICtal Unknown Drug Allergy 01/12/2024 Acti ve Vicodin Unknown Drug Allergy 01/12/2024 Active tramadol Tramadol Unknown Drug Allergy 01/12/2024 Active REASON FOR VISIT Follow up, phq less than 5, MIPS BP NORMAL, Functional status reviewed, MIPS Slums testing Medications Medication SIG (Take, Route, Frequency, Duration) Notes Start Date End Date Status traZODone HCl 150 MG 1.5 tablet at bedti me Oral Once a day for 30 days 09/13/2024 Active clonazePAM 0.5 MG 1 tablet Oral three times a day for 30 days 09/13/2024 Active clonazePAM 0.5 MG 1 tablet Oral three times a day for 30 days 09/19/2024 Active Donepezil HCl 10 MG TAKE 1 TABLET BY JEREMIAS TH EVERY DAY AT BEDTIME FOR 30 DAYS for 30 Active clonazePAM 0.5 MG 1 tablet Oral three times a day for 30 days 08/16/2024 Active Carvedilol 25 MG TAKE 1/2 (ONE-HALF) TABLET BY MOUTH TWICE DAILY WITH MEALS Oral for 30 Days Active Cyanocobalamin 1000 MCG/ML INJECT 1ML INTRAMUSCULARLY ONCE EVERY MONTH Injection for 90 Days Active rOPINIRole HCl 0.5 MG TAKE 1 TABLET BY M OUTH ONCE DAILY AT BEDTIME FOR 90 DAYS for 90 Active Warfarin Sodium 3 MG Oral 01/12/2024 Active Spironolactone 25 MG Oral for 30 Days Active Donepezil HCl 10 MG 1 tablet at bedtime Orally Once a day for 30 days Active Vraylar 1.5 MG 1 capsule at bedtime Oral Once a day for 30 days Samples Active Venlafaxine HCl ER 37.5 MG 1 capsule with food Orally Once a day for 30 days Active traZODone HCl 150 MG 1.5 tablet at bedti me Oral Once a day for 30 days Active Social History Sex Assigned At : Social History Observation Description Sex Assigned At Female Vital Signs Blood pressure systolic 139 mm Hg 09/19/19 25 Blood pressure diastolic 81 mm Hg 025 Heart Rate 82 /min 09/19/2024 Height 65.00 in 09/19/2024 Weight 178 lbs 09/19/2024 BMI 29.62 kg/m2 09/19/2024 Height-cm 165.10 cm 09/19/2024 Weight-kg 80.74 kg 09/19/2024 Encounters Encounter Location Date Provider Diagnosis [facility] [employer] [facility] [address] [place] [id number] 09/19/2024 Patric De Jesus Bipolar disorder, current episode depressed, mild F31.31 ; Cardiomyopathy, unspecified I42.9 ; Primary insomnia F51.01 ; Alzheimer's disease with late onset G30.1 ; CAMDEN (generalized anxiety disorder) F41.1 ; Hyperlipidemia E78.5 ; Left bundle branch block (LBBB) I44.7 and Hypothyroidism E03.9 Assessments Encounter Date Diagnosis (ICD Code) Assessment Notes Treatment Notes Treatment Clinical Notes Section Notes 09/19/2024 Bipolar disorder, current episode depressed, mild (ICD-10 - F31.31) Bipolar Disorder: Care Instructions material was published Sciatica Pain - Assessment: Patient reports increased pain in the leg, starting from the hip and going to the ankle. The pain has been managed with a recent injection and a steroid pack prescribed by Doctor B. Patient mentions using a heating pad at home for relief. - Plan: - Complete the steroid pack as prescribed. - Report any changes in pain levels. - Contact Doctor B if pain persists or worsens for further evaluation and management. Dental Issues - Assessment: Patient mentioned the cost of dental work but did not report any current dental problems. - Plan: No intervention needed at this time. Shortness of Breath - Assessment: Dr. Ceja increased the dose of Entresto to 2 tablets per day due to a weak heart. - Plan: - Continue taking the increased dose of Entresto as prescribed. - Report any changes in shortness of breath or other symptoms. Bipolar Depression - Assessment: Patient is currently stable on venlafaxine 37.5 mg daily. Patient reports not feeling depressed. - Plan: - Continue current medication regimen. - Monitor mood and report any changes. Insomnia - Assessment: Patient is taking trazodone 50 mg, 1.5 tablets at night for sleep. Patient mentions cat waking them up early, causing some sleep disturbances. - Plan: - Continue current medication regimen. - Monitor sleep quality and report any changes. Memory Issues - Assessment: Patient is taking donepezil 10 mg at night for memory. - Plan: - Continue current medication regimen. - Monitor memory and report any changes. Anxiety - Assessment: Patient is taking clonazepam 0.5 mg, one tablet during the day and two tablets at night. - Plan: - Continue current medication regimen. - Monitor anxiety levels and report any changes. Follow-up - Plan: - Attend scheduled 3-month follow-up appointment. - Encourage the patient to report any changes in symptoms or concerns during this time. 09/19/2024 Cardiomyopathy, unspecified (ICD-10 - I42.9) Sciatica Pain - Assessment: Patient reports increased pain in the leg, starting from the hip and going to the ankle. The pain has been managed with a recent injection and a steroid pack prescribed by Doctor B. Patient mentions using a heating pad at home for relief. - Plan: - Complete the steroid pack as prescribed. - Report any changes in pain levels. - Contact Doctor B if pain persists or worsens for further evaluation and management. Dental Issues - Assessment: Patient mentioned the cost of dental work but did not report any current dental problems. - Plan: No intervention needed at this time. Shortness of Breath - Assessment: Dr. Ceja increased the dose of Entresto to 2 tablets per day due to a weak heart. - Plan: - Continue taking the increased dose of Entresto as prescribed. - Report any changes in shortness of breath or other symptoms. Bipolar Depression - Assessment: Patient is currently stable on venlafaxine 37.5 mg daily. Patient reports not feeling depressed. - Plan: - Continue current medication regimen. - Monitor mood and report any changes. Insomnia - Assessment: Patient is taking trazodone 50 mg, 1.5 tablets at night for sleep. Patient mentions cat waking them up early, causing some sleep disturbances. - Plan: - Continue current medication regimen. - Monitor sleep quality and report any changes. Memory Issues - Assessment: Patient is taking donepezil 10 mg at night for memory. - Plan: - Continue current medication regimen. - Monitor memory and report any changes. Anxiety - Assessment: Patient is taking clonazepam 0.5 mg, one tablet during the day and two tablets at night. - Plan: - Continue current medication regimen. - Monitor anxiety levels and report any changes. Follow-up - Plan: - Attend scheduled 3-month follow-up appointment. - Encourage the patient to report any changes in symptoms or concerns during this time. 09/19/2024 Primary insomnia (ICD-10 - F51.01) Sciatica Pain - Assessment: Patient reports increased pain in the leg, starting from the hip and going to the ankle. The pain has been managed with a recent injection and a steroid pack prescribed by Doctor B. Patient mentions using a heating pad at home for relief. - Plan: - Complete the steroid pack as prescribed. - Report any changes in pain levels. - Contact Doctor B if pain persists or worsens for further evaluation and management. Dental Issues - Assessment: Patient mentioned the cost of dental work but did not report any current dental problems. - Plan: No intervention needed at this time. Shortness of Breath - Assessment: Dr. Ceja increased the dose of Entresto to 2 tablets per day due to a weak heart. - Plan: - Continue taking the increased dose of Entresto as prescribed. - Report any changes in shortness of breath or other symptoms. Bipolar Depression - Assessment: Patient is currently stable on venlafaxine 37.5 mg daily. Patient reports not feeling depressed. - Plan: - Continue current medication regimen. - Monitor mood and report any changes. Insomnia - Assessment: Patient is taking trazodone 50 mg, 1.5 tablets at night for sleep. Patient mentions cat waking them up early, causing some sleep disturbances. - Plan: - Continue current medication regimen. - Monitor sleep quality and report any changes. Memory Issues - Assessment: Patient is taking donepezil 10 mg at night for memory. - Plan: - Continue current medication regimen. - Monitor memory and report any changes. Anxiety - Assessment: Patient is taking clonazepam 0.5 mg, one tablet during the day and two tablets at night. - Plan: - Continue current medication regimen. - Monitor anxiety levels and report any changes. Follow-up - Plan: - Attend scheduled 3-month follow-up appointment. - Encourage the patient to report any changes in symptoms or concerns during this time. 09/19/2024 Alzheimer's disease with late onset (ICD-10 - G30.1) Sciatica Pain - Assessment: Patient reports increased pain in the leg, starting from the hip and going to the ankle. The pain has been managed with a recent injection and a steroid pack prescribed by Doctor B. Patient mentions using a heating pad at home for relief. - Plan: - Complete the steroid pack as prescribed. - Report any changes in pain levels. - Contact Doctor B if pain persists or worsens for further evaluation and management. Dental Issues - Assessment: Patient mentioned the cost of dental work but did not report any current dental problems. - Plan: No intervention needed at this time. Shortness of Breath - Assessment: Dr. Ceja increased the dose of Entresto to 2 tablets per day due to a weak heart. - Plan: - Continue taking the increased dose of Entresto as prescribed. - Report any changes in shortness of breath or other symptoms. Bipolar Depression - Assessment: Patient is currently stable on venlafaxine 37.5 mg daily. Patient reports not feeling depressed. - Plan: - Continue current medication regimen. - Monitor mood and report any changes. Insomnia - Assessment: Patient is taking trazodone 50 mg, 1.5 tablets at night for sleep. Patient mentions cat waking them up early, causing some sleep disturbances. - Plan: - Continue current medication regimen. - Monitor sleep quality and report any changes. Memory Issues - Assessment: Patient is taking donepezil 10 mg at night for memory. - Plan: - Continue current medication regimen. - Monitor memory and report any changes. Anxiety - Assessment: Patient is taking clonazepam 0.5 mg, one tablet during the day and two tablets at night. - Plan: - Continue current medication regimen. - Monitor anxiety levels and report any changes. Follow-up - Plan: - Attend scheduled 3-month follow-up appointment. - Encourage the patient to report any changes in symptoms or concerns during this time. 09/19/2024 CAMDEN (generalized anxiety disorder) (ICD-10 - F41.1) Sciatica Pain - Assessment: Patient reports increased pain in the leg, starting from the hip and going to the ankle. The pain has been managed with a recent injection and a steroid pack prescribed by Doctor B. Patient mentions using a heating pad at home for relief. - Plan: - Complete the steroid pack as prescribed. - Report any changes in pain levels. - Contact Doctor B if pain persists or worsens for further evaluation and management. Dental Issues - Assessment: Patient mentioned the cost of dental work but did not report any current dental problems. - Plan: No intervention needed at this time. Shortness of Breath - Assessment: Dr. Ceja increased the dose of Entresto to 2 tablets per day due to a weak heart. - Plan: - Continue taking the increased dose of Entresto as prescribed. - Report any changes in shortness of breath or other symptoms. Bipolar Depression - Assessment: Patient is currently stable on venlafaxine 37.5 mg daily. Patient reports not feeling depressed. - Plan: - Continue current medication regimen. - Monitor mood and report any changes. Insomnia - Assessment: Patient is taking trazodone 50 mg, 1.5 tablets at night for sleep. Patient mentions cat waking them up early, causing some sleep disturbances. - Plan: - Continue current medication regimen. - Monitor sleep quality and report any changes. Memory Issues - Assessment: Patient is taking donepezil 10 mg at night for memory. - Plan: - Continue current medication regimen. - Monitor memory and report any changes. Anxiety - Assessment: Patient is taking clonazepam 0.5 mg, one tablet during the day and two tablets at night. - Plan: - Continue current medication regimen. - Monitor anxiety levels and report any changes. Follow-up - Plan: - Attend scheduled 3-month follow-up appointment. - Encourage the patient to report any changes in symptoms or concerns during this time. 09/19/2024 Hyperlipidemia (ICD-10 - E78.5) Sciatica Pain - Assessment: Patient reports increased pain in the leg, starting from the hip and going to the ankle. The pain has been managed with a recent injection and a steroid pack prescribed by Doctor B. Patient mentions using a heating pad at home for relief. - Plan: - Complete the steroid pack as prescribed. - Report any changes in pain levels. - Contact Doctor B if pain persists or worsens for further evaluation and management. Dental Issues - Assessment: Patient mentioned the cost of dental work but did not report any current dental problems. - Plan: No intervention needed at this time. Shortness of Breath - Assessment: Dr. Ceja increased the dose of Entresto to 2 tablets per day due to a weak heart. - Plan: - Continue taking the increased dose of Entresto as prescribed. - Report any changes in shortness of breath or other symptoms. Bipolar Depression - Assessment: Patient is currently stable on venlafaxine 37.5 mg daily. Patient reports not feeling depressed. - Plan: - Continue current medication regimen. - Monitor mood and report any changes. Insomnia - Assessment: Patient is taking trazodone 50 mg, 1.5 tablets at night for sleep. Patient mentions cat waking them up early, causing some sleep disturbances. - Plan: - Continue current medication regimen. - Monitor sleep quality and report any changes. Memory Issues - Assessment: Patient is taking donepezil 10 mg at night for memory. - Plan: - Continue current medication regimen. - Monitor memory and report any changes. Anxiety - Assessment: Patient is taking clonazepam 0.5 mg, one tablet during the day and two tablets at night. - Plan: - Continue current medication regimen. - Monitor anxiety levels and report any changes. Follow-up - Plan: - Attend scheduled 3-month follow-up appointment. - Encourage the patient to report any changes in symptoms or concerns during this time. 09/19/2024 Left bundle branch block (LBBB) (ICD-10 - I44.7) Sciatica Pain - Assessment: Patient reports increased pain in the leg, starting from the hip and going to the ankle. The pain has been managed with a recent injection and a steroid pack prescribed by Doctor B. Patient mentions using a heating pad at home for relief. - Plan: - Complete the steroid pack as prescribed. - Report any changes in pain levels. - Contact Doctor B if pain persists or worsens for further evaluation and management. Dental Issues - Assessment: Patient mentioned the cost of dental work but did not report any current dental problems. - Plan: No intervention needed at this time. Shortness of Breath - Assessment: Dr. Ceja increased the dose of Entresto to 2 tablets per day due to a weak heart. - Plan: - Continue taking the increased dose of Entresto as prescribed. - Report any changes in shortness of breath or other symptoms. Bipolar Depression - Assessment: Patient is currently stable on venlafaxine 37.5 mg daily. Patient reports not feeling depressed. - Plan: - Continue current medication regimen. - Monitor mood and report any changes. Insomnia - Assessment: Patient is taking trazodone 50 mg, 1.5 tablets at night for sleep. Patient mentions cat waking them up early, causing some sleep disturbances. - Plan: - Continue current medication regimen. - Monitor sleep quality and report any changes. Memory Issues - Assessment: Patient is taking donepezil 10 mg at night for memory. - Plan: - Continue current medication regimen. - Monitor memory and report any changes. Anxiety - Assessment: Patient is taking clonazepam 0.5 mg, one tablet during the day and two tablets at night. - Plan: - Continue current medication regimen. - Monitor anxiety levels and report any changes. Follow-up - Plan: - Attend scheduled 3-month follow-up appointment. - Encourage the patient to report any changes in symptoms or concerns during this time. 09/19/2024 Hypothyroidism (ICD-10 - E03.9) Sciatica Pain - Assessment: Patient reports increased pain in the leg, starting from the hip and going to the ankle. The pain has been managed with a recent injection and a steroid pack prescribed by Doctor B. Patient mentions using a heating pad at home for relief. - Plan: - Complete the steroid pack as prescribed. - Report any changes in pain levels. - Contact Doctor B if pain persists or worsens for further evaluation and management. Dental Issues - Assessment: Patient mentioned the cost of dental work but did not report any current dental problems. - Plan: No intervention needed at this time. Shortness of Breath - Assessment: Dr. Ceja increased the dose of Entresto to 2 tablets per day due to a weak heart. - Plan: - Continue taking the increased dose of Entresto as prescribed. - Report any changes in shortness of breath or other symptoms. Bipolar Depression - Assessment: Patient is currently stable on venlafaxine 37.5 mg daily. Patient reports not feeling depressed. - Plan: - Continue current medication regimen. - Monitor mood and report any changes. Insomnia - Assessment: Patient is taking trazodone 50 mg, 1.5 tablets at night for sleep. Patient mentions cat waking them up early, causing some sleep disturbances. - Plan: - Continue current medication regimen. - Monitor sleep quality and report any changes. Memory Issues - Assessment: Patient is taking donepezil 10 mg at night for memory. - Plan: - Continue current medication regimen. - Monitor memory and report any changes. Anxiety - Assessment: Patient is taking clonazepam 0.5 mg, one tablet during the day and two tablets at night. - Plan: - Continue current medication regimen. - Monitor anxiety levels and report any changes. Follow-up - Plan: - Attend scheduled 3-month follow-up appointment. - Encourage the patient to report any changes in symptoms or concerns during this time. 09/19/2024 Other referral to the local chapter or national office of the Alzheimer's Association ( ; http://www.alz. org), the Alzheimer's Disease Education and Referral Center (ADEAR) ( ; http://www.jorge. nih.gov/Alzheim ers/), Sciatica Pain - Assessment: Patient reports increased pain in the leg, starting from the hip and going to the ankle. The pain has been managed with a recent injection and a steroid pack prescribed by Doctor B. Patient mentions using a heating pad at home for relief. - Plan: - Complete the steroid pack as prescribed. - Report any changes in pain levels. - Contact Doctor B if pain persists or worsens for further evaluation and management. Dental Issues - Assessment: Patient mentioned the cost of dental work but did not report any current dental problems. - Plan: No intervention needed at this time. Shortness of Breath - Assessment: Dr. Ceja increased the dose of Entresto to 2 tablets per day due to a weak heart. - Plan: - Continue taking the increased dose of Entresto as prescribed. - Report any changes in shortness of breath or other symptoms. Bipolar Depression - Assessment: Patient is currently stable on venlafaxine 37.5 mg daily. Patient reports not feeling depressed. - Plan: - Continue current medication regimen. - Monitor mood and report any changes. Insomnia - Assessment: Patient is taking trazodone 50 mg, 1.5 tablets at night for sleep. Patient mentions cat waking them up early, causing some sleep disturbances. - Plan: - Continue current medication regimen. - Monitor sleep quality and report any changes. Memory Issues - Assessment: Patient is taking donepezil 10 mg at night for memory. - Plan: - Continue current medication regimen. - Monitor memory and report any changes. Anxiety - Assessment: Patient is taking clonazepam 0.5 mg, one tablet during the day and two tablets at night. - Plan: - Continue current medication regimen. - Monitor anxiety levels and report any changes. Follow-up - Plan: - Attend scheduled 3-month follow-up appointment. - Encourage the patient to report any changes in symptoms or concerns during this time. Plan Of Treatment Medication Medication Name Sig Start Date Stop Date Notes clonazePAM 0.5 MG 1 tablet Oral three times a day for 30 days 09/19/2024 Donepezil HCl 10 MG 1 tablet at bedtime Orally Once a day for 30 days Vraylar 1.5 MG 1 capsule at bedtime Oral Once a day for 30 days Samples Venlafaxine HCl ER 37.5 MG 1 capsule wit h food Orally Once a day for 30 days traZODone HCl 150 MG 1.5 tablet at bedti me Oral Once a day for 30 days Treatment Notes Assessment Notes Bipolar disorder, current ep isode depressed, mild Bipolar Disorder: Care Instructions material was published Other referral to the local chapter or national office of the Alzheimer's Association ( ; http://www.alz.org), the Alzheimer's Disease Education and Referral Center (ADEAR) ( ; http://www.jorge.nih.gov/Alzheimers/), Next Appt Details Follow Up: 4 Weeks, Reason: Provider Name:Patric De Jesus , 11/14/2024 01:30:00 PM, [address], [place] [address], [place], [address], Provider Name:Patric De Jesus , 12/12/2024 01:00:00 PM, [address], [address], [place], [address], Progress Notes * JAILENE CHOPRA KDOB:[birth year] (78 yo F)Acc No.[id number]:09/19/2024 Patient: JAILENE BELTRAN Provider: Beck DE JESUS MD :1945 A ge:78 Y S ex:Female Date:09/19/2024 Address:[address] [place] [address] , [id number] Pcp:Masoud Reddy MD Subjective: * Chief Complaints: * F ollow upPhq less than 5MIPS BP NORMALFunctional status reviewedMIPS Slums testing * HPI: D epression Screening: The note is transcribed using speech recognition software. It is a reflection of a visit with the patient. It might have some inaccuracy, including medication names and transcribing errors, though efforts have been made to correct them. Chief Complaint: Sciatica pain The patient presents with sciatica pain, starting from her hip and extending to her ankle. She recently received an injection providing relief for 3-6 hours, followed by a steroid pack prescribed by Dr. Mcclelland. The patient is currently on day 3 of the steroid treatment. She reports ongoing pain, stating It's hurting today. It's been alright but today it's hurting. The patient intends to use a heating pad at home for relief. Medical History: - Bipolar depression - Heart condition (weak heart) - Sciatica - Memory issues - History of shortness of breath Current and Past Medications and Supplements: - Entresto (increased to 2 a day) - Venlafaxine 37.5mg - Trazodone 50mg (1.5 tablets) - Donepezil 10mg at night - Clonazepam 0.5mg (1 during the day, 2 at night) - Steroid pack (currently on day 3) Social History: - Living situation: Lives with Jerardo, who provides care and support - Social support: Jerardo helps with feeding and care, but has a short temper - Pets: Has a cat named Jelani Review of Systems: - Musculoskeletal: Pain in hip, leg, and ankle; sciatica pain - Cardiovascular: Previous shortness of breath (resolved) - Psychiatric: No depression; no anxiety - Sleep: Some difficulty falling back asleep after waking early, often due to cat waking her at 6 AM Additional Notes: The patient mentions Dr. Ceja recently increased her Entresto dosage to twice daily, citing a very weak heart as the reason for her persistent shortness of breath complaints throughout the year. The patient reports no current depression or anxiety but mentions some interpersonal issues with Jerardo, who provides care for her but has a short temper. She states that Jerardo is generally good to her, feeding her and helping out, despite occasional outbursts. CAMDEN-7 (2018 Edition) F eeling nervous, anxious, or on edge?More than half the days, N ot being able to stop or control worrying N ot at all, W orrying too much about different things N ot at all, T rouble relaxing N ot at all, Being so restless that it is hard to sit still N ot at all, B ecoming easily annoyed or irritable S everal days, F eeling afraid as if something awful might happen N ot at all, Total CAMDEN-7 Score 3 , I f you checked any problems, how difficult have they made it for you to do your work, take care of things at home, or get along with other people? S omewhat difficult, I nterpretation of Total ( 0 to 4) No Anxiety. D epression screening: PHQ-9 L ittle interest or pleasure in doing things N ot at all, F eeling down, depressed, or hopeless N ot at all, T rouble falling or staying asleep, or sleeping too much N ot at all, F eeling tired or having little energy S everal days, P oor appetite or overeating S everal days, F eeling bad about yourself or that you are a failure, or have let yourself or your family down N ot at all, T rouble concentrating on things, such as reading the newspaper or watching television N ot at all, M oving or speaking so slowly that other people could have noticed; or the opposite, being so fidgety or restless that you have been moving around a lot more than usual N ot at all, T houghts that you would be better off or of hurting yourself in some way N ot at all, T otal Score 2 , Interpretation M inimal Depression. I ntervention D epression Screening Findings?Negative, S uicide Risk Assessment Performed . * ROS: P erformance Met: N ormal blood pressure reading documented, follow-up not required ( [id number]). * Medical History: * Surgical History: * Hospitalization/Major Diagno stic Procedure: * Social History: M igrated Social History: M igrated Social History: Alcohol Intake: None 08/16/2018,Tobacco Years: Never smoker 08/16/2018,Smoking Status: 0 08/11/2023. * Medications: T akingCyanocobalamin 1000 MCG/ML Solution INJECT 1ML INTRAMUSCULARLY ONCE EVERY MONTH Injection Carvedilol 25 MG Tablet TAKE 1/2 (ONE-HALF) TABLET BY MOUTH TWICE DAILY WITH MEALS Oral Spironolactone 25 MG Tablet Oral Warfarin Sodium 3 MG Tablet Oral rOPINIRole HCl 0.5 MG Tablet TAKE 1 TABLET BY MOUTH ONCE DAILY AT BEDTIME FOR 90 DAYS clonazePAM 0.5 MG Tablet 1 tablet Oral three times a day traZODone HCl 150 MG Tablet 1.5 tablet at bedtime Oral Once a day Venlafaxine HCl ER 37.5 MG Capsule Extended Release 24 Hour 1 capsule with food Orally Once a day Vraylar 1.5 mg Capsule Oral , Notes to Pharmacist: SamplesclonazePAM 0.5 MG Tablet 1 tablet Oral three times a day Donepezil HCl 10 MG Tablet TAKE 1 TABLET BY MOUTH EVERY DAY AT BEDTIME FOR 30 DAYS clonazePAM 0.5 MG Tablet 1 tablet Oral three times a day traZODone HCl 150 MG Tablet 1.5 tablet at bedtime Oral Once a day Medication List reviewed and reconciled with the patientTaking Cyanocobalamin 1000 MCG/ML Solution INJECT 1ML INTRAMUSCULARLY ONCE EVERY MONTH Injection Taking Carvedilol 25 MG Tablet TAKE 1/2 (ONE-HALF) TABLET BY MOUTH TWICE DAILY WITH MEALS Oral Taking Spironolactone 25 MG Tablet Oral Taking Warfarin Sodium 3 MG Tablet Oral Taking rOPINIRole HCl 0.5 MG Tablet TAKE 1 TABLET BY MOUTH ONCE DAILY AT BEDTIME FOR 90 DAYS Taking clonazePAM 0.5 MG Tablet 1 tablet Oral three times a day Taking traZODone HCl 150 MG Tablet 1.5 tablet at bedtime Oral Once a day Taking Venlafaxine HCl ER 37.5 MG Capsule Extended Release 24 Hour 1 capsule with food Orally Once a day Taking Vraylar 1.5 mg Capsule Oral , Notes to Pharmacist: SamplesTaking clonazePAM 0.5 MG Tablet 1 tablet Oral three times a day Taking Donepezil HCl 10 MG Tablet TAKE 1 TABLET BY MOUTH EVERY DAY AT BEDTIME FOR 30 DAYS Taking clonazePAM 0.5 MG Tablet 1 tablet Oral three times a day Taking traZODone HCl 150 MG Tablet 1.5 tablet at bedtime Oral Once a day Medication List reviewed and reconciled with the patient * Allergies: N SAIDS (NON-STEROIDAL ANTI-INFLAMMATORY DRUG): Allergy - Onset Date 01/12/2024tivan: Allergy - Onset Date 01/12/2024Lactose: Allergy - Onset Date 01/12/2024LaMICtal: Allergy - Onset Date 01/12/2024Vicodin: Allergy - Onset Date 01/12/2024Tramadol: Allergy - Onset Date 01/12/2024no[Allergies Verified] Objective: * Vitals: B P:139/81mm Hg, HR:82/min, Wt:178lbs, Wt-k.74 kg, Ht: 65.00 in, Ht-cm: 165.10 cm, BMI:29.62Index, Body Surface Area: 1.92. * Examination: F unctional Assessment: Vela Index of ADL S core: 6 1 point for independence, 0 for help. Physical Functioning P ersonal hygiene: including combing hair, brushing teeth, shaving, applying makeup, washing/drying face and hands (exclude baths and showers) I ndependentBathing: how client takes full-body bath/shower or sponge bath (exclude washing of back and hair). Includes how each part of body is bathed: arms, upper and lower legs, chest, abdomen, perineal area. (code for most dependent episode in last 7 days) I ndependentDressing upper body: how client dresses and undresses (street clothes, underwear) above the waist, includes prostheses, orthotics, fasteners, pullovers, etc. I ndependentEating - Including taking in food by any method, including tube feedings I ndependentToilet use: including using the toilet room or commode, bedpan, urinal, transferring on/off toilet, cleaning self after toilet use or incontinent episode, changing pad, managing any special devices required (ostomy or catheter), and adjusting clothes. I ndependentTransfer: including moving to and between surfaces--to/from bed, chair, wheelchair, standing position (excludes to/from bath/toilet) I ndependentContinence: I ndependent (1). 1 point for independence, 0 for help. P sychiatry: Dementia S afety concern screening for dangerousness to self and environment risks provided: Y esWhat action was taken to mitigate the risk? E ducation providedTopics discussed for environmental risks: H ome safety risks that could arise from cooking or smoking, Access to firearms or other weapons, Access to potentially dangerous chemicals and other materialsTopics discussed for dangerousness to self: M edication misuse, Financial mismanagementSafety concern mitigation recommendation provided: N ot requiredScreening Result: N egativeCaregiver education and support provided Y es. N eurology: Cognition Assessment Tools Used T otal score SLUMS 06/2024. G eneral Examination: M ental Status Examination: Patient is alert and oriented. No signs of depression or anxiety reported. Experiences difficulty recalling specific terms but is able to engage in conversation and express her needs clearly. Patient reports no trouble sleeping or changes in appetite, except for being woken up by her cat. Vital Signs: review the notes for vitals Physical Examination: Patient reports pain radiating from hip to ankle, consistent with sciatica. No physical aggression or agitation observed during the interaction. Patient mentions shortness of breath as a symptom related to a cardiac condition. Patient describes the pain as severe, stating I hurt so bad and It hurts. Diagnostic Test Results and Labs: Chest x-ray and unspecified additional test previously performed showed normal results (specific dates N/A). Patient is currently on the third day of a steroid treatment regimen prescribed by another physician for pain management (specific start date N/A). Patient reports receiving a vitamin B injection recently. Patient mentions having an injection that helped for 3-6 hours. Assessment: * Assessment: 1. B ipolar disorder, current episode depressed, mild - F31.31 (Primary) 2 .?Cardiomyopathy, unspecified - I42.9 3 . P rimary insomnia - F51.01 4 . A lzheimer's disease with late onset - G30.1 5 . G AD (generalized anxiety disorder) - F41.1 6 . H yperlipidemia - E78.5 7 . L eft bundle branch block (LBBB) - I44.7 8 . H ypothyroidism - E03.9 ? Sciatica Pain - Assessment: Patient reports increased pain in the leg, starting from the hip and going to the ankle. The pain has been managed with a recent injection and a steroid pack prescribed by Doctor B. Patient mentions using a heating pad at home for relief. - Plan: - Complete the steroid pack as prescribed. - Report any changes in pain levels. - Contact Doctor B if pain persists or worsens for further evaluation and management. Dental Issues - Assessment: Patient mentioned the cost of dental work but did not report any current dental problems. - Plan: No intervention needed at this time. Shortness of Breath - Assessment: Dr. Ceja increased the dose of Entresto to 2 tablets per day due to a weak heart. - Plan: - Continue taking the increased dose of Entresto as prescribed. - Report any changes in shortness of breath or other symptoms. Bipolar Depression - Assessment: Patient is currently stable on venlafaxine 37.5 mg daily. Patient reports not feeling depressed. - Plan: - Continue current medication regimen. - Monitor mood and report any changes. Insomnia - Assessment: Patient is taking trazodone 50 mg, 1.5 tablets at night for sleep. Patient mentions cat waking them up early, causing some sleep disturbances. - Plan: - Continue current medication regimen. - Monitor sleep quality and report any changes. Memory Issues - Assessment: Patient is taking donepezil 10 mg at night for memory. - Plan: - Continue current medication regimen. - Monitor memory and report any changes. Anxiety - Assessment: Patient is taking clonazepam 0.5 mg, one tablet during the day and two tablets at night. - Plan: - Continue current medication regimen. - Monitor anxiety levels and report any changes. Follow-up - Plan: - Attend scheduled 3-month follow-up appointment. - Encourage the patient to report any changes in symptoms or concerns during this time. Plan: * Treatment: 2. P rimary insomnia Refill traZODone HCl Tablet, 150 MG, 1.5 tablet at bedtime, Oral, Once a day, 30 days, 45 Tablet, Refills 1. 3. A lzheimer's disease with late onset Start Donepezil HCl Tablet, 10 MG, 1 tablet at bedtime, Orally, Once a day, 30 days, 30 Tablet, Refills 0. 4. G AD (generalized anxiety disorder) Refill clonazePAM Tablet, 0.5 MG, 1 tablet, Oral, three times a day, 30 days, 90 Tablet, Refills 0.? 5. O thers Notes: referral to the [facility] of the Alzheimer's Association ( ;http://www.alz.org), the [facility]'sDisease Education [facility] Referral [facility] ([facility]) ( ;http://www.jorge.nih.gov/Alz lupillo/), * Procedure Codes: 9 6127 BEHAV ASSMT W/SCORE & DOCD/STAND [id number] NORMAL BP READING DOC F/U NOT RQR * Follow Up: 4 Weeks * Billing Information: * Visit Code: 97279 OFFICE OUTPATIENT VISIT 25 MINUTES DETAILED HISTORY AND EXAM/MODERATE MEDICAL DECISION MAKING. * Procedure Codes: 09237 BEHAV ASSMT W/SCORE & DOCD/STAND INSTRUMENT. G8783 NORMAL BP READING DOC F/U NOT RQR. * DULER Sign off status: Completed true * Provider: Beck DE JESUS MD Date: 0 09/19/2024 Generated for [place] donnelly/Danny/Dannasmitting on: 0 11/08/2024 12:49 PM SCHEDULER History and Physical Notes * HPI (History of Present Illness) Category Sub-Category Detail Notes Category Not es Depression screening PHQ-9 Little inte rest or pleasure in doing things: Not at all Feeling down, depressed, or hopeless: No t at all Trouble falling or staying asleep, or sl eeping too much: Not at all Feeling tired or having little energy: S everal days Poor appetite or overeating: Several day s Feeling bad about yourself o r that you are a failure, or have let yourself or your family down: Not at all Trouble concentrating on thi ngs, such as reading the newspaper or watching television: Not at all Moving or speaking so slowly that other people could have noticed; or the opposite, being so fidgety or restless that you have been moving around a lot more than usual: Not at all Thoughts that you would be b robert off or of hurting yourself in some way: Not at all Total Score: 2 Interpretation: Minimal Depression Intervention Depression Screening Findings: N egative Suicide Risk Assessment Performed: ____ Depression Screening CAMDEN-7 (2018 Edition) Feelin g nervous, anxious, or on edge: More than half the days Not being able to stop or control worryi ng: Not at all Worrying too much about different things : Not at all Trouble relaxing: Not at all Being so restless that it is hard to sit still: Not at all Becoming easily annoyed or irritable: days Feeling afraid as if something awful alexsander ht happen: Not at all Total CAMDEN-7 Score: 3 If you checked any problems, how difficult have they made it for you to do your work, take care of things at home, or get along with other people?: Somewhat difficult Interpretation of Total: (0 to 4) No Anx iety Examination Category Sub-Category Detail Notes Category Not es Neurology Cognition Assessment Tools Used Total score SLUMS: 06/2024 Psychiatry Dementia Safety concern s creening for dangerousness to self and environment risks provided:: Yes What action was taken to mitigate the risk?: Education provided Topics discussed for environmental risks:: Home safety risks that could arise from cooking or smoking, Access to firearms or other weapons, Access to potentially dangerous chemicals and other materials Topics discussed for dangerousness to self:: Medication misuse, Financial mismanagement Safety concern mitigation recommendation provided:: Not required Screening Result:: Negative Caregiver education and support provided : Yes General Examination Mental Status Examination: Patient is alert and oriented. No signs of depression or anxiety reported. Experiences difficulty recalling specific terms but is able to engage in conversation and express her needs clearly. Patient reports no trouble sleeping or changes in appetite, except for being woken up by her cat. Vital Signs: review the notes for vitals Physical Examination: Patient reports pain radiating from hip to ankle, consistent with sciatica. No physical aggression or agitation observed during the interaction. Patient mentions shortness of breath as a symptom related to a cardiac condition. Patient describes the pain as severe, stating I hurt so bad and It hurts. Diagnostic Test Results and Labs: Chest x-ray and unspecified additional test previously performed showed normal results (specific dates N/A). Patient is currently on the third day of a steroid treatment regimen prescribed by another physician for pain management (specific start date N/A). Patient reports receiving a vitamin B injection recently. Patient mentions having an injection that helped for 3-6 hours. Functional Assessment Vela Index of ADL Score:: 6 1 point for independence, 0 for help 1 point for independence, 0 for help Physical Functioning Personal hygiene: i ncluding combing hair, brushing teeth, shaving, applying makeup, washing/drying face and hands (exclude baths and showers): Independent Bathing: how client takes fu ll-body bath/shower or sponge bath (exclude washing of back and hair). Includes how each part of body is bathed: arms, upper and lower legs, chest, abdomen, perineal area. (code for most dependent episode in last 7 days): Independent Dressing upper body: how cli ent dresses and undresses (street clothes, underwear) above the waist, includes prostheses, orthotics, fasteners, pullovers, etc.: Independent Eating - Including taking in food by any method, including tube feedings: Independent Toilet use: including using the toilet room or commode, bedpan, urinal, transferring on/off toilet, cleaning self after toilet use or incontinent episode, changing pad, managing any special devices required (ostomy or catheter), and adjusting clothes.: Independent Transfer: including moving t o and between surfaces--to/from bed, chair, wheelchair, standing position (excludes to/from bath/toilet): Independent Continence:: Independent (1)
--- OUTSIDE RECORDS SUMMARY | 2024-11-08 12:49 | XMS_ITS ---
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 Name Role Phone Maureen URBINA, Masoud Primary Care Provider Un available Patric De Jesus Unavailable [phone] Allergies Allergen (clinical drug ingredient) Drug/Non Drug [...] Drug Allergy 01/12/2024 Active REASON FOR VISIT f/u, Depression screening negative, advance care planning, Functional status reviewed Medications Medication SIG (Take, Route, Frequency, Duration) Notes Start Date End Date Status Venlafaxine HCl ER 37.5 MG 1 capsule with food Orally Once a day for 30 days Active Vraylar 1.5 MG 1 capsule at bedtime Oral every other day for 30 days Samples Active Donepezil HCl 10 MG 1 tablet at bedtime Orally Once a day for 30 days Active Amiodarone HCl 200 MG Oral for 60 Days Active clonazePAM 0.5 MG 1 tablet Oral three times a day for 30 days 10/17/2024 Active traZODone HCl 150 MG 1.5 tablet at bedti me Oral Once a day for 30 days Active Famotidine 20 MG TAKE 1 TABLET BY JEREMIAS TH TWICE DAILY NEEDED Oral for 90 Days Active Warfarin Sodium 3 MG Oral 01/12/2024 Active rOPINIRole HCl 0.5 MG TAKE 1 TABLET BY M OUTH ONCE DAILY AT BEDTIME FOR 90 DAYS for 90 Active clonazePAM 0.5 MG 1 tablet Oral three times a day for 30 days 09/13/2024 Active traZODone HCl 150 MG 1.5 tablet at bedti me Oral Once a day for 30 days 09/13/2024 Active Cyanocobalamin 1000 MCG/ML INJECT 1ML INTRAMUSCULARLY ONCE EVERY MONTH Injection for 90 Days Active Carvedilol 25 MG TAKE 1/2 (ONE-HALF) TABLET BY MOUTH TWICE DAILY WITH MEALS Oral for 30 Days Active Spironolactone 25 MG Oral for 30 Days Active Social History Tobacco Use: Social History Observation Description Date Details (start date - stop date) Never Smoker NA - NA Sex Assigned At : Social History Observation Description Sex Assigned At Female Tobacco Control (Standard) Question Answer Notes Tobacco use: Nonsmoker Vital Signs Blood pressure systolic 131 mm Hg 10/17/19 25 Blood pressure diastolic 81 mm Hg 025 Heart Rate 84 /min 10/17/2024 Height 65.00 in 10/17/2024 Weight 176 lbs 10/17/2024 BMI 29.28 kg/m2 10/17/2024 Height-cm 165.10 cm 10/17/2024 Weight-kg 79.83 kg 10/17/2024 Encounters Encounter Location Date Provider Diagnosis [facility] [address] [place] [id number] 10/17/2024 Patric De Jesus Bipolar disorder, current episode depressed, mild F31.31 ; Primary insomnia F51.01 ; Alzheimer's disease with late onset G30.1 ; CAMDEN (generalized anxiety disorder) F41.1 ; Hyperlipidemia E78.5 and Hypothyroidism E03.9 Assessments Encounter Date Diagnosis (ICD Code) Assessment Notes Treatment Notes Treatment Clinical Notes Section Notes 10/17/2024 Bipolar disorder, current episode depressed, mild (ICD-10 - F31.31) Bipolar Disorder: Care Instructions material was published 10/17/2024 Primary insomnia (ICD-10 - F51.01) 10/17/2024 Alzheimer's disease with late onset (ICD-10 - G30.1) 10/17/2024 CAMDEN (generalized anxiety disorder) (ICD-10 - F41.1) 10/17/2024 Hyperlipidemia (ICD-10 - E78.5) 10/17/2024 Hypothyroidism (ICD-10 - E03.9) 10/17/2024 Other referral to the local chapter or national office of the Alzheimer's Association ( ; http://www.alz. org), the Alzheimer's Disease Education and Referral Center (ADEAR) ( ; http://www.jorge. nih.gov/Alzheim ers/), Anxiety - Assessment: Patient reports increased anxiety with elevated heart rate (84, usually 65). - Plan: - Continue current medications. - Monitor for changes in anxiety levels. Kidney Function - Assessment: Patient has a history of hospitalization due to Furosemide (Lasix) issue. Upcoming appointment with binder layer on the . - Plan: - Monitor serum creatinine levels and kidney function. - Encourage patient to adhere to a kidney-friendly diet. - Address patient's confusion about kidney function and upcoming tests. Memory Issues - Assessment: Patient reports occasional memory lapses and using incorrect words. - Plan: - No changes in medication at this time. - Encourage patient to engage in cognitive exercises and seek support from family members. Dental Health - Assessment: Patient recently had a dental procedure with ongoing swelling and bone fragments. - Plan: - Follow up with dentist to address these issues. Financial Stress - Assessment: Patient reports pressure from family member for money and food. Power of energy attorney is with brother Mauricio Pacheco. - Plan: - Encourage patient to discuss financial concerns with power of energy attorney and establish boundaries with family members. Bipolar Depression - Assessment: Patient is currently taking venlafaxine 37.5 mg for bipolar depression. Reports not feeling emotions strongly. - Plan: - Adjust Vraylar dosage to one tablet every other day to assess impact on emotional experience. Medication Adjustments - Assessment: Various medication changes needed. - Plan: - Reduce Clonazepam to 0.5 mg three times a day due to fall risk; plan to taper to twice a day. - Adjust Vraylar dosage as mentioned above. - Continue Trazodone 150 mg for sleep; monitor for side effects and effectiveness. - Send prescription for Seroquel as discussed during the visit. Follow-up - Plan: - Schedule a follow-up appointment in 4-6 weeks to assess the patient's response to medication adjustments and overall well-being. - Encourage the patient to contact the office if any concerns or side effects arise before the next appointment. Plan Of Treatment Medication Medication Name Sig Start Date Stop Date Notes Venlafaxine HCl ER 37.5 MG 1 capsule wit h food Orally Once a day for 30 days Vraylar 1.5 MG 1 capsule at bedtime Oral every other day for 30 days Samples Donepezil HCl 10 MG 1 tablet at bedtime Orally Once a day for 30 days clonazePAM 0.5 MG 1 tablet Oral three times a day for 30 days 10/17/2024 traZODone HCl 150 MG 1.5 tablet at bedti me Oral Once a day for 30 days Treatment Notes Assessment Notes Bipolar disorder, current ep isode depressed, mild Bipolar Disorder: Care Instructions material was published Other referral to the local chapter or national office of the Alzheimer's Association ( ; http://www.alz.org), the Alzheimer's Disease Education and Referral Center (ADEKS) ( ; http://www.jorge.nih.gov/Alzheimers/), Next Appt Details Follow Up: 4 Weeks, Reason: Provider Name:Patric De Jesus , 11/14/2024 01:30:00 PM, [address] [facility], [address], [phone], Provider Name:Patric De Jesus , 12/12/2024 01:00:00 PM, [address], [address], [phone], Progress Notes * JAILENE CHOPRA KDOB:[birth year] (78 yo F)Acc No.[id number]:10/17/2024 Patient: Stas DELCIDJAILENE Provider: Beck DE JESUS MD :1945 A ge:78 Y S ex:Female Date:10/17/2024 Address:[address] [place] [address] , [id number] Pcp:Masoud Reddy MD Subjective: * Chief Complaints: * F /uDepression screening negativeAdvance care planningFunctional status reviewed * HPI: D epression Screening: The note is transcribed using speech recognition software. It is a reflection of a visit with the patient. It might have some inaccuracy, including medication names and transcribing errors, though efforts have been made to correct them. Chief Complaint: Sudden onset of nervousness and anxiety Patient reports experiencing sudden onset of nervousness and anxiety despite sleeping well and waking up fine, which confuses her. She notes her mood is stable, but her heart rate was elevated at 84 today, compared to her usual 65. She denies any cardiac pain and states her heart is fine. The patient is unsure of the cause of her anxiety. Recent Medical Issues: The patient recently had all her teeth pulled and is experiencing swelling and bone fragments. She also mentions a history of kidney issues, including improper drainage, which led to a recent hospitalization due to a problem with her furosemide (Lasix) medication. Her serum creatinine is elevated, and she has been advised to monitor her diet. Mental Health: The patient expresses concern about not having strong feelings despite loving her family and pets. She plans to go to [place], which she finds relaxing. Patient reports memory issues, occasionally using incorrect words. Medication Management: The patient is currently taking: - Venlafaxine 37.5 mg for bipolar depression - Vraylar, which has been adjusted to every other day to see if it helps with emotional response - Clonazepam, recently reduced to 0.5 mg due to fall risk concerns The patient notes she is not experiencing strong emotions with her current medication regimen. CAMDEN-7 (2018 Edition) F eeling nervous, anxious, or on edge S everal days N ot being able to stop or control worrying?Not at all W orrying too much about different things N ot at all T rouble relaxing N ot at all B eing so restless that it is hard to sit still N ot at all B ecoming easily annoyed or irritable N ot at all F eeling afraid as if something awful might happen N ot at all T otal CAMDEN-7 Score 1 I f you checked any problems, how difficult have they made it for you to do your work, take care of things at home, or get along with other people? S omewhat difficult I nterpretation of Total ( 0 to 4) No Anxiety D epression screening: PHQ-9 L ittle interest or pleasure in doing things?Not at all F eeling down, depressed, or hopeless N ot at all T rouble falling or staying asleep, or sleeping too much N ot at all F eeling tired or having little energy S everal days P oor appetite or overeating N ot at all F eeling bad about yourself or that you are a failure, or have let yourself or your family down N ot at all T rouble concentrating on things, such as reading the newspaper or watching television N ot at all M oving or speaking so slowly that other people could have noticed; or the opposite, being so fidgety or restless that you have been moving around a lot more than usual N ot at all T houghts that you would be better off or of hurting yourself in some way N ot at all T otal Score 1 I nterpretation M inimal Depression Intervention D epression Screening Findings N egative S uicide Risk Assessment Performed 0 10/17/2024 * ROS: P erformance Met: N ormal blood pressure reading documented, follow-up not required ( G8783). * Medical History: * Surgical History: * Hospitalization/Major Diagno stic Procedure: * Social History: T obacco Use: T obacco Control (Standard) T obacco use: N onsmoker M igrated Social History: M igrated Social History: Alcohol Intake: None 08/16/2018,Tobacco Years: Never smoker 08/16/2018,Smoking Status: 0 08/11/2023. M iscellaneous: A dvance Care Planning A re you your own decision-maker Y es D o you have Power of Digital Marketing Specialist for Health or Medical? N o * Medications: T akingVenlafaxine HCl ER 37.5 MG Capsule Extended Release 24 Hour 1 capsule with food Orally Once a day Vraylar 1.5 MG Capsule 1 capsule at bedtime Oral Once a day , Notes to Pharmacist: SamplesDonepezil HCl 10 MG Tablet 1 tablet at bedtime Orally Once a day Cyanocobalamin 1000 MCG/ML Solution INJECT 1ML INTRAMUSCULARLY [...] tablet at bedtime Oral Once a day Famotidine 20 MG Tablet TAKE 1 TABLET BY MOUTH TWICE DAILY NEEDED Oral Amiodarone HCl 200 MG Tablet Oral Taking Venlafaxine HCl ER 37.5 MG Capsule Extended Release 24 Hour 1 capsule with food Orally Once a day Taking Vraylar 1.5 MG Capsule 1 capsule at bedtime Oral Once a day , Notes to Pharmacist: SamplesTaking Donepezil HCl 10 MG Tablet 1 tablet at bedtime Orally Once a day Taking Cyanocobalamin 1000 MCG/ML Solution INJECT 1ML INTRAMUSCULARLY [...] at bedtime Oral Once a day Taking Famotidine 20 MG Tablet TAKE 1 TABLET BY MOUTH TWICE DAILY NEEDED Oral Taking Amiodarone HCl 200 MG Tablet Oral DiscontinuedclonazePAM 0.5 MG Tablet 1 tablet Oral three times a day traZODone HCl 150 MG Tablet 1.5 tablet at bedtime Oral Once a day clonazePAM 0.5 MG Tablet 1 tablet Oral three times a day Donepezil HCl 10 MG Tablet TAKE 1 TABLET BY MOUTH EVERY DAY AT BEDTIME FOR 30 DAYS Medication List reviewed and reconciled with the patientDiscontinued clonazePAM 0.5 MG Tablet 1 tablet Oral three times a day Discontinued traZODone HCl 150 MG Tablet 1.5 tablet at bedtime Oral Once a day Discontinued clonazePAM 0.5 MG Tablet 1 tablet Oral three times a day Discontinued Donepezil HCl 10 MG Tablet TAKE 1 TABLET BY MOUTH EVERY DAY AT BEDTIME FOR 30 DAYS Medication List reviewed and reconciled with the patient * Allergies: N SAIDS (NON-STEROIDAL ANTI-INFLAMMATORY DRUG): Allergy - Onset Date 01/12/2024tivan: Allergy - Onset Date 01/12/2024Lactose: Allergy - Onset Date 01/12/2024LaMICtal: Allergy - Onset Date 01/12/2024Vicodin: Allergy - Onset Date 01/12/2024Tramadol: Allergy - Onset Date 01/12/2024no[Allergies Verified] Objective: * Vitals: B P:131/81mm Hg, HR:84/min, Wt:176lbs, Wt-k.83 kg, Ht: 65.00 in, Ht-cm: 165.10 cm, BMI:29.28Index, Body Surface Area: 1.91. * Examination: N eurology: Cognition Assessment Tools Used T otal score SLUMS 2 7 06/2024 F unctional Assessment: Vela Index of ADL S core: 6 1 point for independence, 0 for help Physical Functioning P ersonal hygiene: including combing hair, brushing teeth, shaving, applying makeup, washing/drying face and hands (exclude baths and showers)?Independent B athing: how client takes full-body bath/shower or sponge bath (exclude washing of back and hair). Includes how each part of body is bathed: arms, upper and lower legs, chest, abdomen, perineal area. (code for most dependent episode in last 7 days) I ndependent D ressing upper body: how client dresses and undresses (street clothes, underwear) above the waist, includes prostheses, orthotics, fasteners, pullovers, etc. I ndependent E ating - Including taking in food by any method, including tube feedings I ndependent T oilet use: including using the toilet room or commode, bedpan, urinal, transferring on/off toilet, cleaning self after toilet use or incontinent episode, changing pad, managing any special devices required (ostomy or catheter), and adjusting clothes. I ndependent T ransfer: including moving to and between surfaces--to/from bed, chair, wheelchair, standing position (excludes to/from bath/toilet) I ndependent C ontinence: I ndependent (1) 1 point for independence, 0 for help. P sychiatry: Dementia S afety concern screening for dangerousness to self and environment risks provided: [place] Mercedes eurological: Dementia C aregiver education and support provided Houston Lewis eneral Examination: M ental Status Examination: Patient reports high anxiety levels with no identifiable trigger. Mood described as fine. Experiencing memory issues, occasionally using incorrect words. Emotional response appears blunted, as patient reports not feeling emotions strongly. Vital Signs: Heart rate documented at 84 bpm, noted increase from usual rate of 65 bpm. Physical Examination: No cardiac pain reported. Recent dental procedure with all teeth pulled, experiencing swelling and bone fragments. Diagnostic Test Results and Labs: Serum creatinine levels reported as elevated, specific values and dates not documented. No other lab results or diagnostic tests mentioned. Medication trials and adjustments: Patient is on furosemide, Vraylar, venlafaxine, clonazepam, trazodone, and Seroquel. Assessment: * Assessment: 1. B ipolar disorder, current episode depressed, mild - F31.31 (Primary) 2 .?Primary insomnia - F51.01 3 . A lzheimer's disease with late onset - G30.1? 4. G AD (generalized anxiety disorder) - F41.1 5 . H yperlipidemia - E78.5 6 . H ypothyroidism - E03.9 Plan: * Treatment: 2. P rimary insomnia Refill traZODone HCl Tablet, 150 MG, 1.5 tablet at bedtime, Oral, Once a day, 30 days, 45 Tablet, Refills 0. 3. A lzheimer's disease with late onset Start Donepezil HCl Tablet, 10 MG, 1 tablet at bedtime, Orally, Once a day, 30 days, 30 Tablet, Refills 0. 4. G AD (generalized anxiety disorder) Refill clonazePAM Tablet, 0.5 MG, 1 tablet, Oral, three times a day, 30 days, 90 Tablet, Refills 0.? 5. O thers Notes: referral to the local [facility] ornational office of the Alzheimer's Association ( ;http://www.alz.org), the [facility] Education and Referral Center (ADEKS) ( ;http://www.jorge.nih.gov/Alzhe brittaers/), Clinical Notes: Anxiety - Assessment: Patient reports increased anxiety with elevated heart rate (84, usually 65). - Plan: - Continue current medications. - Monitor for changes in anxiety levels. Kidney Function - Assessment: Patient has a history of hospitalization due to Furosemide (Lasix) issue. Upcoming appointment with binder layer on the . - Plan: - Monitor serum creatinine levels and kidney function. - Encourage patient to adhere to a kidney-friendly diet. - Address patient's confusion about kidney function and upcoming tests. Memory Issues - Assessment: Patient reports occasional memory lapses and using incorrect words. - Plan: - No changes in medication at this time. - Encourage patient to engage in cognitive exercises and seek support from family members. Dental Health - Assessment: Patient recently had a dental procedure with ongoing swelling and bone fragments. - Plan: - Follow up with dentist to address these issues. Financial Stress - Assessment: Patient reports pressure from family member for money and food. Power of energy attorney is with brother Mauricio Pacheco. - Plan: - Encourage patient to discuss financial concerns with power of energy attorney and establish boundaries with family members. Bipolar Depression - Assessment: Patient is currently taking venlafaxine 37.5 mg for bipolar depression. Reports not feeling emotions strongly. - Plan: - Adjust Vraylar dosage to one tablet every other day to assess impact on emotional experience. Medication Adjustments - Assessment: Various medication changes needed. - Plan: - Reduce Clonazepam to 0.5 mg three times a day due to fall risk; plan to taper to twice a day. - Adjust Vraylar dosage as mentioned above. - Continue Trazodone 150 mg for sleep; monitor for side effects and effectiveness. - Send prescription for Seroquel as discussed during the visit. Follow-up - Plan: - Schedule a follow-up appointment in 4-6 weeks to assess the patient's response to medication adjustments and overall well-being. - Encourage the patient to contact the office if any concerns or side effects arise before the next appointment. * Procedure Codes: 9 6127 BEHAV ASSMT W/SCORE & DOCD/STAND [id number] NORMAL BP READING DOC F/U NOT [id number] Funct status past 12 [id number] VISIT COMPLEXITY INHERENT TO ONGOING CARE RELATED TO A PATIENT'S SINGLE, SERIOUS CONDITION OR A COMPLEX [id number] ASSESSMENT OF AND CARE PLANNING FOR A PATIENT WITH COGNITIVE [id number] MOST RECENT SYSTOLIC BP < 140MM [id number] MOST RECENT DIASTOLIC BP < 90MM HG * Preventive Medicine: Counseling: A dvance Care Planning Date of last Advance Care Planning:?10/17/2024 ____ MIPS * Follow Up: 4 Weeks * Billing Information: * Visit Code: 12865 OFFICE OUTPATIENT VISIT 25 MINUTES DETAILED HISTORY AND EXAM/MODERATE MEDICAL DECISION MAKING. * Procedure Codes: 63932 BEHAV ASSMT W/SCORE & DOCD/STAND INSTRUMENT. G8783 NORMAL BP READING DOC F/U NOT RQR. G9916 Funct status past 12 months. G2211 VISIT COMPLEXITY INHERENT TO ONGOING CARE RELATED TO A PATIENT'S SINGLE, SERIOUS CONDITION OR A COMPLEX CONDITION. 77207 ASSESSMENT OF AND CARE PLANNING FOR A PATIENT WITH COGNITIVE IMPAIRMENT. G8752 MOST RECENT SYSTOLIC BP < 140MM HG. G8754 MOST RECENT DIASTOLIC BP < 90MM HG. * SAFETY MANAGER Sign off status: Completed true * Provider: Beck DE JESUS MD Date: 0 10/17/2024 Generated for [place] donnelly/Danny/Carolinaransmitting on: 0 11/08/2024 12:48 PM FOOD SAFETY MANAGER History and Physical Notes * HPI (History [...] S everal days Poor appetite or overeating: Not at all Feeling bad about yourself o r that [...] some way: Not at all Total Score: 1 Interpretation: Minimal Depression Intervention Depression Screening Findings: N egative Suicide Risk Assessment Performed: 10/17 Depression Screening CAMDEN-7 (2018 Edition) Feelin g nervous, anxious, or on edge: Several days Not being able to stop or control worryi ng: Not at all Worrying too much about different things : Not at all Trouble relaxing: Not at all Being so restless that it is hard to sit still: Not at all Becoming easily annoyed or irritable: No t at all Feeling afraid as if something awful alexsander ht happen: Not at all Total CAMDEN-7 Score: 1 If you checked any problems, how difficult have they made it for you to do your work, take care of things at home, or get along with other people?: Somewhat difficult Interpretation of Total: (0 to 4) No Anx iety Examination Category Sub-Category Detail Notes Category Notes Neurology Cognition Assessment Tools Used Total score SLUMS: 27 06/2024 Psychiatry Dementia Safety concern screening for dangerousness to self and environment risks provided:: Yes General Examination Mental Status Examination: Patient reports high anxiety levels with no identifiable trigger. Mood described as fine. Experiencing memory issues, occasionally using incorrect words. Emotional response appears blunted, as patient reports not feeling emotions strongly. Vital Signs: Heart rate documented at 84 bpm, noted increase from usual rate of 65 bpm. Physical Examination: No cardiac pain reported. Recent dental procedure with all teeth pulled, experiencing swelling and bone fragments. Diagnostic Test Results and Labs: Serum creatinine levels reported as elevated, specific values and dates not documented. No other lab results or diagnostic tests mentioned. Medication trials and adjustments: Patient is on furosemide, Vraylar, venlafaxine, clonazepam, trazodone, and Seroquel. Neurological Dementia Caregiver educat ion and support provided: Yes Functional Assessment Vela Index of ADL Score:: [...]
--- OUTSIDE RECORDS SUMMARY | 2024-11-08 12:49 | XMS_ITS | Clinical Summary ---
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 Name Role Phone Unavailable Primary Care Provider Unavailabl e Social History Tobacco Use Types Packs/Day Years Used Date Smoking Tobacco: Never Assessed Comments Unknown Sex and Gender Information Value Date Recorded Sex Assigned at Not on file Legal Sex Female 4:35 PM CDT Gender Identity Not on file Sexual Orientation Not on file Plan of Treatment Health Maintenance Due Date Last Done Comments Hepatitis C 12/02/1963 DTaP, Tdap and Td Vaccines ( 1 - Tdap) 1964 Zoster Vaccines (1 of 2) 12/02/1995 Dexa Scan (General) 2010 Pneumococcal Vaccine: 65+ Ye ars (1 of 1 - PCV) 2010 RSV Immunization or 60+ Years (1 - 1-dose 75+ series) 2020 COVID-19 Vaccine ( - 2023-2 5 season) 2024 Influenza Adult (#1) 2024 Meningococcal B Vaccine Aged Out No l onger eligible based on patient's age to complete this topic Meningococcal Vaccine Aged Out No graciela yovana eligible based on patient's age to complete this topic RSV Immunizations Under 20 Months Aged Out No longer eligible based on patient's age to complete this topic Advance Directives Documents on File Type Date Recorded 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
== END 2024-11-08 12:28 | disposition home or self-care (01) ==
PROVIDERS: PCP Internal Medicine; Visit Provider Internal Medicine Pulmonary Disease
DX: R05.9 Cough, unspecified (principal); T78.40XA Allergy, unspecified, initial encounter; D89.9 Disorder involving the immune mechanism, unspecified
CPT/HCPCS: 94060; 94726; 94729

== ENCOUNTER 2025-02-17 14:03 | Outpatient (CLI) | payer MEDICARE, SELFPAY ==
--- OUTSIDE RECORDS SUMMARY | 2025-02-17 15:14 | XMS_ITS | Clinical Summary ---
Author Organization [facility] Address [address] [place] [address] Phone Care Team Providers Care Employment Program Representative Name Role Phone Lana Tovar MD Primary [...] 3:00 PM CDT Height 165.1 cm (5' 5) 01/13/2017 3:00 PM CDT Body Mass Index 27.79 01/13/2017 3:00 PM CDT Plan of Treatment Health Maintenance Due Date Last Done Comments DEXA Bone Density 1945 Hepatitis C Virus (HCV) Screening 1945 TdaP Immunization 1945 Respiratory Syncytial Virus (RSV) Immunization (Adult) (1 - 1-dose 75+ series) 2020 SARS-COV-2 Immunization (2023- season) 2024 05/26/2022, 02/22/2022, 06/30/2021, Additional history exists Influenza Immunization (Season Ended) 2025 05/26/2022, 06/12/2021, 05/12/2020, Additional history exists Colonoscopy Discontinued 01/18/2017 Colorectal Cancer Screening Discontinued Zoster Immunization Completed 05/01/2018, 8 Pneumococcal Immunization (50+ years) Completed 05/15/2018, 04/06/2016 Pneumococcal Immunization Combined Discontinued 05/15/2018, 04/06/2016 Cologuard Discontinued Hepatitis B Immunization Aged Out No longer eligible based on patient's age to complete this topic Human Papillomavirus (HPV) Immunization Aged Out No longer eligible based on patient's age to complete this topic Immunochemical Fecal Occult Blood Discontinued Meningococcal Immunization (ACWY) Aged Out No longer eligible based on patient's age to complete this topic Rotavirus Immunization Aged Out No lo nger eligible based on patient's age to complete this topic Insurance MEDICARE C [facility] Care Teams Employment Program Representative Relationship Specialty Start Date End Date Lana Tovar MD [address] [place] [id number] PCP - General Family Medicine 12/23/16
--- OUTSIDE RECORDS SUMMARY | 2025-02-17 15:14 | XMS_ITS | Encounter Summary ---
Author Organization [facility] Address [address] [facility] [address] [place] [id number] Care Team Providers Care Ged Tutor Name Role Phone Lana Tovar MD Primary Care Provider + Lana Tovar MD Primary Care Provider + Bandar Gaffney MD Unavailable [phone] Dillan Reddy MD Primary Care Provide r Encounter Details Date Type Department Care Team (Late st Contact Info) Description 2016 Orders Only [facility] ProviderSaurabh MD [address] [place] [id number] Social History Tobacco Use Types Packs/Day Years Used Date Smoking Tobacco: Never Alcohol Use Standard Drinks/Week Comments No 0 (1 standard drink = 0.6 oz pur e alcohol) Comments Unknown Sex and Gender Information Value Date Recorded Sex Assigned at Not on file Legal Sex Female 2:33 AM [employer] Gender Identity Not on file Sexual Orientation [...] on filedocumented in this encounter Care Teams Ged Tutor Relationship Specialty Start Date End Date Lana Tovar MD PCP - General 12/02/16 11/08/23 Lana Tovar MD PCP - General 02/11/13 12/01/16 Dillan Reddy MD [id number] [address] PCP - General Internal Medicine 11/09/23 Bandar Gaffney MD Consulting Physician Cardiology 04/13/21 documented as of this encounter
--- OUTSIDE RECORDS SUMMARY | 2025-02-17 15:14 | XMS_ITS | Patient Health Record ---
Author Organization [facility] Address [address] [place] [address] Care Team Providers Care Explosive Man Name Role Phone Maureen URBINA, Masoud Primary Care Provider Un available Patric Amaya Unavailable [phone] Allergies Allergen (clinical drug ingredient) Drug/Non Drug [...] tramadol Tramadol Unknown Drug Allergy 01/12/2024 Active Reason For Referral No Information Medications Medication SIG (Take, Route, Frequency, Duration) Notes Start Date End Date Status Donepezil HCl 10 MG 1 tablet at bedtime Orally Once a day for 90 days Last Ordered: 11/14/2024 Active Furosemide 40 MG TAKE 1 TABLET BY JEREMIAS TH THREE TIMES A WEEK Oral for 84 Days Active Venlafaxine HCl ER 37.5 MG 1 capsule with food Orally Once a day for 90 days Last Ordered: 11/14/2024 Active Spironolactone 25 MG Oral for 30 Days Active traZODone HCl 150 MG 1.5 tablet at bedti me Oral Once a day for 90 days Last Ordered: 11/14/2024 Active Carvedilol 25 MG TAKE 1/2 (ONE-HALF) TABLET BY MOUTH TWICE DAILY WITH MEALS Oral for 30 Days Active clonazePAM 0.5 MG 1 tablet Oral three times a day for 30 days 02/13/2025 Active Cyanocobalamin 1000 MCG/ML INJECT 1ML INTRAMUSCULARLY ONCE EVERY MONTH Injection for 90 Days Active Ondansetron HCl 4 MG TAKE 1 TABLET BY [facility] TWICE DAILY NEEDED Oral for 5 Days Active Vraylar 1.5 MG 1 capsule at bedtime Oral every other day for 30 days Samples Active Amiodarone HCl 200 MG Oral for 60 Days Active Famotidine 20 MG TAKE 1 TABLET BY JEREMIAS TWICE DAILY NEEDED Oral for 90 Days Active traZODone HCl 150 MG 1.5 tablet at bedti nv Oral Once a day for 30 days 09/13/2024 Active rOPINIRole HCl 0.5 MG TAKE 1 TABLET BY [facility] ONCE DAILY AT BEDTIME FOR 90 DAYS for 90 Active Warfarin Sodium 3 MG Oral 01/12/2024 Active Immunizations Vaccine Route Administration Date Status Comme nts Influenza virus vaccine, quadrivalent (IIV4), split virus, 0.25 mL dosage Unknown 05/25/2015 Administered Influenza virus vaccine, quadrivalent (IIV4), split virus, 0.25 mL dosage Unknown 05/15/2018 Administered Influenza virus vaccine, quadrivalent (IIV4), split virus, 0.25 mL dosage Unknown 05/30/2019 Administered Influenza virus vaccine, quadrivalent (IIV4), split virus, 0.25 mL dosage Unknown 06/04/2019 Administered Influenza, high dose seasonal Unknown 05/01/2016 Admini stered Influenza, high dose seasonal Unknown 06/08/2017 Admini stered Influenza, high dose seasonal Unknown 05/30/2019 Admini stered Influenza, high-dose seasona l, quadrivalent, preservative free >65 yrs Unknown 05/12/2020 Administered Influenza, seasonal, injecta ble, preservative free, 3 yrs and above Unknown 05/28/2014 Administered Moderna Covid-19 Vaccine 1st dose Unknown 10/21/2020 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 Moderna Covid-19 Vaccine 1st dose Unknown 11/18/2020 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 Moderna Covid-19 Vaccine 1st dose Unknown 06/30/2021 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 Moderna Covid-19 Vaccine 1st dose Unknown 02/22/2022 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 RuffaloCODY Covid-19 Vac cine 2nd dose Unknown 05/26/2022 Administered Pneumococcal conjugate PCV 13 Unknown 05/15/2018 Admini stered Pneumococcal polysaccharide PPV23 Unknown 04/06/2016 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 Zoster Unknown 01/04/2018 Administered Social History Tobacco Use: Social History Observation Description Date Details (start date - stop date) Never Smoker NA - NA Sex Assigned At : Social History Observation Description Sex Assigned At Female Tobacco Control (Standard) Question Answer Notes Tobacco use: Nonsmoker AUDIT-C (Standard) Question Answer Notes Did you have a drink containing alcohol in the p ast year? No Points 0 Interpretation Negative Section Notes: Diet: Avoids Red Meat Due To Nausea Living situation: Has A Caregiver Who Assists With Household Tasks Problems Problem Type SNOMED Code ICD Code Onset Dates Problem Status W/U Status Risk Notes Problem Bipolar affective disorder, currently depressed, mild (476144005) Bipolar disorder, current episode depressed, mild (F31.31) Active confirmed Problem Generalized anxiety disorder (76418521) Generalized anxiety disorder (F41.1) Active confirmed Problem Primary insomnia (8861806) Primary insomnia (F51.01) Active confirmed Problem 72734141 Alzheimer's disease with late onset (G30.1) Active confirmed Problem Cardiomyopathy (22301811) Cardiomyopathy, unspecified (I42.9) Active confirmed Problem Generalized anxiety disorder (79996578) [place] (generalized anxiety disorder) (F41.1) Active confirmed Problem Hyperlipidemia (08916949) Hyperlipidemia (E78.5) 03/22/20 21 Active confirmed Problem Hypothyroidism (77433544) Hypothyroidism (E03.9) 03/22/20 21 Active confirmed Problem Cardiomyopathy (23828427) Cardiomyopathy (I42.9) 03/22/20 21 Active confirmed Problem Left bundle branch block (93822342) Left bundle branch block (LBBB) (I44.7) 03/23/20 21 Active confirmed Problem Ventricular tachycardia (disorder) (95464853) VT (ventricular tachycardia) (I47.20) 04/12/20 21 Active confirmed Problem Automatic implantable cardiac defibrillator in situ (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) ICD (implantable cardioverter-defi brillator), biventricular, in situ (Z95.810) 04/21/20 23 Active confirmed Vital Signs Heart Rate 69 /min 02/13/2025 Height-cm 165.10 cm 02/13/2025 Blood pressure diastolic 83 mm Hg 02/13/2025 Weight-kg 81.65 kg 02/13/2025 Height 65.00 in 02/13/2025 Blood pressure systolic 140 mm Hg 02/13/2025 Weight 180, 180.0 lbs 02/13/2025 BMI 29.95 kg/m2 02/13/2025 Encounters Encounter Location Date Provider Diagnosis [facility] [employer] [address] [address] 03/13/2024 Patric Jose Luis Bipolar disorder, current episode depressed, mild F31.31 ; Cardiomyopathy, unspecified I42.9 and Primary insomnia F51.01 [facility] [employer] [address] 04/12/2024 Patric Jose Luis Bipolar disorder, current episode depressed, mild F31.31 ; Cardiomyopathy, unspecified I42.9 ; Primary insomnia F51.01 ; Alzheimer's disease with late onset G30.1 and CAM[place] (generalized anxiety disorder) F41.1 [facility] [employer] [address] 05/13/2024 Patric Jose Luis Bipolar disorder, current episode depressed, mild F31.31 ; Cardiomyopathy, unspecified I42.9 ; Primary insomnia F51.01 ; Alzheimer's disease with late onset G30.1 and [place] (generalized anxiety disorder) F41.1 [facility] [employer] [address] 06/14/2024 Patric Jose Luis Bipolar disorder, current episode depressed, mild F31.31 ; Cardiomyopathy, unspecified I42.9 ; Primary insomnia F51.01 ; Alzheimer's disease with late onset G30.1 ; CAMDEN (generalized anxiety disorder) F41.1 ; Hyperlipidemia E78.5 ; Left bundle branch block (LBBB) I44.7 and Hypothyroidism E03.9 [facility] [employer] [place] [place] [id number] [facility] [address] [address] 07/15/2024 Patric Jose Luis Bipolar disorder, current episode depressed, mild F31.31 ; Cardiomyopathy, unspecified I42.9 ; Primary insomnia F51.01 ; Alzheimer's disease with late onset G30.1 ; CAMDEN (generalized anxiety disorder) F41.1 ; Hyperlipidemia E78.5 ; Left bundle branch block (LBBB) I44.7 and Hypothyroidism E03.9 [facility] [employer] [address] [facility] [address] [place] [address] 09/19/2024 Patricyashira Contrerasam Bipolar disorder, current episode depressed, mild F31.31 ; Cardiomyopathy, unspecified I42.9 ; Primary insomnia F51.01 ; Alzheimer's disease with late onset G30.1 ; CAMDEN (generalized anxiety disorder) F41.1 ; Hyperlipidemia E78.5 ; Left bundle branch block (LBBB) I44.7 and Hypothyroidism E03.9 [facility] [employer] [address] [facility] [address] [place] [address] 10/17/2024 Patric Jose Luis Bipolar disorder, current episode depressed, mild F31.31 ; Primary insomnia F51.01 ; Alzheimer's disease with late onset G30.1 ; CAMDEN (generalized anxiety disorder) F41.1 ; Hyperlipidemia E78.5 and Hypothyroidism E03.9 [facility] [employer] [address] [address] 11/14/2024 Patric Jose Luis Encounter for screen ing for depression Z13.31 ; Encounter for screening for cardiovascular disorders Z13.6 ; Bipolar disorder, current episode depressed, mild F31.31 ; Primary insomnia F51.01 ; Alzheimer's disease with late onset G30.1 ; CAMDEN (generalized anxiety disorder) F41.1 ; Hyperlipidemia E78.5 and Hypothyroidism E03.9 [facility] [employer] [address] [facility] [address] [place] [address] 12/12/2024 Patric Jose Luis Encounter for screen ing for cardiovascular disorders Z13.6 ; Encounter for screening for depression Z13.31 ; Bipolar disorder, current episode depressed, mild F31.31 ; Primary insomnia F51.01 ; Alzheimer's disease with late onset G30.1 ; CAM[place] (generalized anxiety disorder) F41.1 ; Hyperlipidemia E78.5 and Hypothyroidism E03.9 [facility] [employer] [address] [facility] [address] [place] [address] 01/09/2025 Patric Jose Luis Bipolar disorder, current episode depressed, mild F31.31 ; Primary insomnia F51.01 ; Alzheimer's disease with late onset G30.1 ; CAM[place] (generalized anxiety disorder) F41.1 ; Negative depression screening Z13.31 and Encounter for screening for cardiovascular disorders Z13.6 [facility] [address] [place] [address] 02/13/2025 Patric Jose Luis Bipolar disorder, current episode depressed, mild F31.31 ; Primary insomnia F51.01 ; Alzheimer's disease with late onset G30.1 ; Dietary counseling and surveillance Z71.3 ; CAMDNE (generalized anxiety disorder) F41.1 ; Encounter for screening for cardiovascular disorders Z13.6 and Encounter for screening for depression Z13.31 [place] [address] [facility] [address] [place] [address] 03/04/2024 Patric Jose Luis Generalized anxiety disorder F41.1 [place] [id number] [facility] [address] [place] [address] 03/05/2024 Patric Jose Luis [place] [address] [address] 08/16/2024 Patric Jose Luis Generalized anxiety disorder F41.1 [place] [address] [facility] [address] [place] [address] 09/13/2024 Patric Jose Luis Generalized anxiety disorder F41.1 and Primary insomnia F51.01 [place] [address] [address] 11/26/2024 Patric Jose Luis Assessments Encounter Date Diagnosis (ICD Code) Assessment Notes Treatment Notes Treatment Clinical Notes Section Notes 03/04/2024 Generalized anxiety disorder (ICD-10 - F41.1) 08/16/2024 Generalized anxiety disorder (ICD-10 - F41.1) 09/13/2024 Generalized anxiety disorder (ICD-10 - F41.1) 09/13/2024 Primary insomnia (ICD-10 - F51.01) 09/19/2024 Bipolar disorder, current episode depressed, mild (ICD-10 - F31.31) Bipolar Disorder: Care Instructions material was published Sciatica Pain - Assessment: Patient reports increased pain in the leg, starting from the hip and going to the ankle. The pain has been managed with a recent injection and a steroid pack prescribed by Doctor Stas. Patient mentions using a heating pad at [...] in symptoms or concerns during this time. 07/15/2024 Bipolar disorder, current episode depressed, mild (ICD-10 - F31.31) Bipolar Disorder: Care Instructions material was published Shortness of Breath - Assessment: The patient reports experiencing shortness of breath. The etiology is unclear, and it could be related to heart, lung, or kidney issues. Further evaluation is needed to determine the cause and appropriate treatment. The patient mentions that others have suggested an inhaler, but this may not be appropriate depending on the underlying cause. - Plan: - Order a chest X-ray to assess for any lung abnormalities or fluid accumulation. - Obtain an echocardiogram to evaluate the patient's ejection fraction and heart function. Patient reports an ejection fraction of 65, which should be confirmed. - Consider referral to a transit clerk or system auditor for further evaluation and management. Bipolar Disorder - Assessment: The patient's bipolar disorder appears to be stable on the current medication regimen, including Vraylar 1.5. - Plan: - Continue the current medication regimen. - Provide additional samples of Vraylar 1.5 if available, as requested by the patient. - Schedule a follow-up appointment in one month to monitor the patient's mental health status. Memory Impairment - Assessment: The patient reports poor memory and is currently on donepezil for memory enhancement. - Plan: - Optimize donepezil dosage to 10 mg daily. - Monitor the patient's memory function during follow-up appointments. - Consider referral to a neurologist if memory issues persist or worsen. Social Situation - Assessment: The patient reports being on speaking terms with her son and having a better home situation. She mentions buying her son a turkey for Thanksgiving and preferring phone conversations over in-person visits. - Plan: - Encourage the patient to maintain open communication with her family members. - Offer support and resources as needed for any social or emotional concerns. Insurance and Healthcare Access - Assessment: The patient has [employer] insurance and is concerned about potential changes in network coverage, specifically mentioning [place] potentially going out of network. - Plan: - Advise the patient to contact her insurance company for updates on network coverage and any potential changes. - Assist the patient in finding alternative healthcare providers if necessary. General Health and Well-being - Assessment: The patient reports not feeling well overall and mentions difficulty walking without a cart. - Plan: - Encourage the patient to maintain a healthy lifestyle, including a balanced diet, regular exercise, and adequate sleep. - Monitor the patient's overall health during follow-up appointments and address any new concerns as they arise. - Consider evaluating the patient's mobility issues and recommending appropriate assistive devices or physical therapy if needed. 03/13/2024 Bipolar disorder, current episode depressed, mild (ICD-10 - F31.31) Bipolar Disorder: Care Instructions material was published Shortness of Breath and Anxiety - Assessment: The patient reports experiencing shortness of breath and increased anxiety without any identifiable triggers. The patient is currently on clonazepam 0.5 mg three times a day for anxiety management. - Plan: - Continue clonazepam 0.5 mg three times a day - Monitor the patient's anxiety levels and shortness of breath during follow-up visits - Encourage the patient to report any worsening of symptoms or new triggers Mood Instability - Assessment: The patient describes episodes of unprovoked anger lasting for two days. - Plan: - Monitor the patient's mood during follow-up visits - Encourage the patient to report any new episodes of mood instability or potential triggers - Consider adjusting the patient's medication regimen if mood instability persists or worsens Medication Refill Issues - Assessment: The patient has experienced difficulty obtaining a sufficient supply of clonazepam from their preferred pharmacy ([facility]) and has had to use an alternative pharmacy ([facility]) to obtain the medication. - Plan: - Send prescriptions for clonazepam 0.5 mg three times a day, trazodone 150 mg, and venlafaxine 37.5 mg to [facility] in [place] - Instruct the patient to inform the clinic if they continue to experience difficulties obtaining their medications - Coordinate with the patient's preferred pharmacy to ensure a consistent supply of medications Concern for Family Member's Health - Assessment: The patient expresses concern about a family member (Madhu) who has COPD and continues to smoke cigarettes but refuses to seek medical attention. - Plan: - Provide the patient with resources and information on COPD and smoking cessation to share with their family member - Encourage the patient to discuss their concerns with Madhu and suggest seeking medical attention - Offer support and guidance to the patient in navigating this challenging situation Insurance and Financial Concerns - Assessment: The patient is exploring alternative insurance options due to increasing premiums. - Plan: - Encourage the patient to continue researching and comparing insurance options to find the best coverage for their needs - Offer assistance in navigating insurance-related issues if needed Follow-up - Plan: - Schedule a follow-up appointment in one month to monitor the patient's anxiety, shortness of breath, mood instability, and medication refill issues - Encourage the patient to contact the clinic if they experience any worsening of symptoms or new concerns before their next appointment 04/12/2024 Bipolar disorder, current episode depressed, mild (ICD-10 - F31.31) Bipolar Disorder: Care Instructions material was published Schizoaffective Disorder, Bipolar Type (in remission) - Assessment: Patient continues to take Vraylar for mood stabilization and prevention of psychotic symptoms. Patient reports Vraylar works better than other medications. - Plan: Continue Vraylar and monitor for any signs of relapse or worsening of symptoms. Anxiety - Assessment: Patient is taking clonazepam 0.5 mg three times a day for anxiety management. - Plan: Continue clonazepam 0.5 mg three times a day for anxiety management. Assess the effectiveness of the medication and adjust the dosage if necessary. Encourage the patient to engage in relaxation techniques and coping strategies. Depression - Assessment: Patient is taking venlafaxine 37.5 mg for depression and anxiety management. Patient reports not feeling depressed currently. - Plan: Continue venlafaxine 37.5 mg for depression and anxiety management. Monitor the patient's mood and adjust the dosage if necessary. Encourage the patient to engage in activities that promote mental well-being. Primary Insomnia - Assessment: Patient is taking trazodone 150 mg, one and a half tablets for sleep management. Patient reports staying in bed all day on a recent Monday. - Plan: Continue trazodone 150 mg, one and a half tablets for sleep management. Assess the effectiveness of the medication and adjust the dosage if necessary. Encourage the patient to practice good sleep hygiene and establish a regular sleep schedule. Memory Concerns - Assessment: Patient has requested memory pills and reports previous memory pills made her feel tired. - Plan: Discuss the patient's request for memory pills and weigh the benefits and side effects. Consider alternative options for cognitive enhancement if appropriate. Encourage the patient to engage in activities that promote cognitive health. Dental Health - Assessment: Patient has a scheduled teeth extraction in June. - Plan: Encourage the patient to follow through with the scheduled teeth extraction in June. Provide support and resources for managing dental anxiety if needed. Cardiovascular Health - Assessment: Patient is taking Entresto for heart management and reports low blood pressure, which is good. - Plan: Continue Entresto for heart management. Monitor blood pressure and adjust medication if necessary. Encourage the patient to maintain a heart-healthy lifestyle, including regular exercise and a balanced diet. Relationship Issues - Assessment: Patient expresses feeling trapped and lacking freedom due to car ownership and driving restrictions imposed by partner. - Plan: Encourage the patient to discuss her concerns with her partner and seek resolution. Consider referral to couples therapy or support groups if appropriate. Monitor the patient's emotional well-being and provide support as needed. 04/12/2024 Cardiomyopathy, unspecified (ICD-10 - I42.9) Schizoaffective Disorder, Bipolar Type (in remission) - Assessment: Patient continues to take Vraylar for mood stabilization and prevention of psychotic symptoms. Patient reports Vraylar works better than other medications. - Plan: Continue Vraylar and monitor for any signs of relapse or worsening of symptoms. Anxiety - Assessment: Patient is taking clonazepam 0.5 mg three times a day for anxiety management. - Plan: Continue clonazepam 0.5 mg three times a day for anxiety management. Assess the effectiveness of the medication and adjust the dosage if necessary. Encourage the patient to engage in relaxation techniques and coping strategies. Depression - Assessment: Patient is taking venlafaxine 37.5 mg for depression and anxiety management. Patient reports not feeling depressed currently. - Plan: Continue venlafaxine 37.5 mg for depression and anxiety management. Monitor the patient's mood and adjust the dosage if necessary. Encourage the patient to engage in activities that promote mental well-being. Primary Insomnia - Assessment: Patient is taking trazodone 150 mg, one and a half tablets for sleep management. Patient reports staying in bed all day on a recent Monday. - Plan: Continue trazodone 150 mg, one and a half tablets for sleep management. Assess the effectiveness of the medication and adjust the dosage if necessary. Encourage the patient to practice good sleep hygiene and establish a regular sleep schedule. Memory Concerns - Assessment: Patient has requested memory pills and reports previous memory pills made her feel tired. - Plan: Discuss the patient's request for memory pills and weigh the benefits and side effects. Consider alternative options for cognitive enhancement if appropriate. Encourage the patient to engage in activities that promote cognitive health. Dental Health - Assessment: Patient has a scheduled teeth extraction in June. - Plan: Encourage the patient to follow through with the scheduled teeth extraction in June. Provide support and resources for managing dental anxiety if needed. Cardiovascular Health - Assessment: Patient is taking Entresto for heart management and reports low blood pressure, which is good. - Plan: Continue Entresto for heart management. Monitor blood pressure and adjust medication if necessary. Encourage the patient to maintain a heart-healthy lifestyle, including regular exercise and a balanced diet. Relationship Issues - Assessment: Patient expresses feeling trapped and lacking freedom due to car ownership and driving restrictions imposed by partner. - Plan: Encourage the patient to discuss her concerns with her partner and seek resolution. Consider referral to couples therapy or support groups if appropriate. Monitor the patient's emotional well-being and provide support as needed. 05/13/2024 Bipolar disorder, current episode depressed, mild (ICD-10 - F31.31) Bipolar Disorder: Care Instructions material was published Mood and Depression - Assessment: Patient reports feeling fine overall in terms of mood and depression. Patient states: I'm doing fine mentally. - Plan: Continue current medications for bipolar disorder: venlafaxine 37.5 mg and clonazepam 0.5 mg three times a day. Follow up in one month. Shortness of Breath - Assessment: Patient reports increasing shortness of breath, but no clear cause identified. Recent CT chest was negative, and ejection fraction has improved from 25% to 31%. Patient mentions previous hospitalization for fluid overload due to not taking Lasix. - Plan: Encourage patient to follow up with transit clerk and primary care physician for further evaluation of shortness of breath, including potential fluid overload and pulmonary edema. Continue monitoring symptoms. Memory Impairment - Assessment: Patient is currently on donepezil for memory impairment. - Plan: Continue donepezil and monitor for any changes in memory function. Follow up in one month. Insomnia - Assessment: Patient is currently on trazodone 1.5 tablets for insomnia. - Plan: Continue trazodone as prescribed and monitor sleep quality. Follow up in one month. Anxiety - Assessment: Patient is currently on alprazolam 1.5 mg for anxiety. - Plan: Continue alprazolam as prescribed and monitor anxiety levels. Follow up in one month. Fall Risk - Assessment: Patient reports poor balance and a recent near-fall incident. Patient states: I don't have good balance at all. Because I guess I was getting dressed and I went backwards and Jerardo caught me. - Plan: Encourage patient to discuss fall risk and potential interventions with primary care physician. Monitor for any further falls or balance issues. Follow-up - Plan: Schedule a follow-up appointment in one month to monitor patient's progress and reassess medications as needed. Patient expresses desire to continue regular appointments: Yeah, I want to see your smiling face. 06/14/2024 Bipolar disorder, current episode depressed, mild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 provider. 01/09/2025 Other Medication Management and Access - Assessment: Patient reports discontinuation of Entresto due to loss of sample access and high [id number]-[id number] costs (approximately $600/month). This has led to worsening shortness of breath. Patient mentions issues with diuretics, stating Lasix was ineffective, and spironolactone or Bumex did not produce adequate diuresis. Concerns about medication adherence due to financial constraints and forgetfulness, as evidenced by missed blood work. - Plan: - Evaluate alternative medication options for cardiac management that are more affordable for the patient. - Consider reassessing diuretic regimen to address reported ineffectiveness. - Encourage patient to complete pending blood work and CAT scan. - Discuss potential eligibility for patient assistance programs or reduced-cost medications. - Follow up with transit clerk (Dr. Rodriguez) regarding medication changes and current cardiac status. Shortness of Breath - Assessment: Patient reports increased shortness of breath, likely related to the discontinuation of Entresto and ineffective diuretic therapy. Recent addition of albuterol appears to provide some symptomatic relief. - Plan: - Continue albuterol as needed for symptomatic relief of shortness of breath. - Monitor effectiveness of albuterol and adjust as necessary. - Encourage patient to report any worsening of symptoms. Dermatological Issues - Assessment: Patient reports recurrent rash between thighs, previously managed with 2.5% hydrocortisone. Current 1% hydrocortisone prescription is reported as ineffective. - Plan: - Consider increasing hydrocortisone strength to 2.5% as previously effective. - Educate patient on proper application and use of topical corticosteroids. - Follow up on effectiveness of treatment at next visit. Care Coordination and Home Support - Assessment: Patient reports lack of caregiver support for the past 3 months, with a pending evaluation for potential 12 hours/week of care. This gap in support may be impacting medication adherence and overall health management. - Plan: - Follow up on results of home care evaluation. - Assess impact of lack of caregiver support on medication adherence and daily functioning. - Consider referral to social and political studies professor for additional support if needed. Mood and Anxiety - Assessment: Patient denies current symptoms of depression or anxiety. No reported changes in sleep or appetite. Denies suicidal ideation. Recent discontinuation of Trazodone and Vraylar without apparent negative impact on mood or behavior. - Plan: - Continue to monitor mood and anxiety symptoms at follow-up appointments. - Maintain current psychiatric medication regimen. - Encourage patient to report any changes in mood or anxiety levels. 02/13/2025 Other Patient has a history of long-term use of psychotropic medications. Patient has discontinued Vraylar and other medications. - Monitor for changes in symptoms without psychotropic medications. - Assess progress in one month. Plan Of Treatment Next Appt Details Provider Name:Patric Amaya , 03/13/2025 01:15:00 PM, [address], [facility] [address], [place], [address], Insurance Providers Payer Name Payer Address Payer Phone Subscriber Number Group Number Insured Name Patient Relationship to Insured Coverage Start Date Coverage End Date [employer] Medicare Replacement/ Advantage - Ppo [address] [address] [place] [address] [id number] JAILENE MARTINO Self - patient is the insured Medical (General) History Medical History History ICD Code Problems: Abdominal pain Allergic rhinitis Bipolar affective disorder, current epis ode depression Cardiomyopathy Chronic pharyngitis Chronic urinary tract infection Cobalamin deficiency Conjunctivitis Derangement of knee Diarrhea Dietary management surveillance Dilated cardiomyopathy Disorder of bursa of shoulder region Dizziness Dysuria Fatigue Gastroesophageal reflux disease Generalized anxiety disorder Hallucinations Hand joint pain Hip pain Hyperkeratotic eczema of palms Hypothyroidism Implantation of joint prosthesis Knee pain Long-term current use of anticoagulant Macrocytic anemia Mild neurocognitive disorder Muscle pain Neck pain Noncompliance with treatment Osteoarthritis of knee Osteopenia Pain in elbow Pain in limb Primary insomnia Procedure on joint Recurrent urinary tract infection Restless legs Serum creatinine above reference range Serum creatinine outside reference range Somatization disorder Specialized medical examination Upper respiratory infection Vitamin B deficiency Vitamin D deficiency , Surgical History Surgery Date(Month/Year) Implantation of cardiac defibrillator libby cook ([id number]) 04/12/2021
--- OUTSIDE RECORDS SUMMARY | 2025-02-17 15:14 | XMS_ITS | Encounter Summary ---
Author Organization [facility] Healthcare Address [address] [place] [address] Care Team Providers Care English Division Chair Name Role Phone Bandar Gaffney MD Unavailable [phone] Dillan Reddy MD Primary Care Provide r Encounter Details Date Type Department Care Team (Late st Contact Info) Description 12/04/2024 Telephone [facility] Medical Group Cardiology [address] [facility] 162 [facility] [address] [place] [phone] Samy Ceja MD [address] [facility] [address] [place] [address] Social History Tobacco Use Types Packs/Day Years [...] often do you attend chur ch or restorationist services? 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
--- OUTSIDE RECORDS SUMMARY | 2025-02-17 15:14 | XMS_ITS | Clinical Summary ---
Author Organization [facility] Address [address] [place] [address] Care Team Providers Care Admissions Assistant Name Role Phone Unavailable Primary Care Provider [...] Td Vaccines ( 1 - Tdap) 1964 Pneumococcal Vaccine: 50+ Ye ars (1 of 1 - PCV) 12/02/1995 Zoster Vaccines (1 of 2) 12/02/1995 Dexa Scan (General) 2010 RSV Immunization or 60+ Years (1 - 1-dose 75+ series) 2020 COVID-19 Vaccine ( - 2023-2 5 season) 2024 Meningococcal B Vaccine Aged Out No l onger eligible based on patient's age to complete this topic Meningococcal Vaccine Aged Out No graciela yovana eligible based on patient's age to complete this topic RSV Immunizations Under 20 Months Aged Out No longer eligible based on patient's age to complete this topic Advance Directives Documents on File Type Date Recorded 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
--- OUTSIDE RECORDS SUMMARY | 2025-02-17 15:14 | XMS_ITS | Referral Summary ---
Author Organization [place] [address] [address] [place] [phone] Care Team Providers Care Stab Setter And Driller Name Role Phone Bandar Gaffney MD Unavailable [phone] Dillan Reddy MD Primary Care Provide r Encounters Date Type Department Care Team Description 02/10/2025 Telephone [facility] Medical Group Cardiology [address] [place] [address] [address] [place] [phone] Samy Ceja MD 01/13/2025 Telephone [facility] Medical [facility] Cardiology [address] [place] [address] [address] [place] [address] Samy Ceja MD 01/06/2025 10:00 AM CDT Office Visit [facility] Medical Group Cardiology at [address] [place] [phone] Samy Ceja MD Dilated cardiomyopathy (HCC) (Primary Dx) 01/02/2025 Telephone [facility] Medical [facility] Cardiology [address] [place] [address] [address] [place] [address] Samy Ceja MD 01/01/2025 Telephone [facility] Cardiology [address] [place] [address] [address] [place] [address] Samy Ceja MD 12/04/2024 Telephone [facility] Cardiology [address] [place] [address] [address] [place] [address] Samy Ceja MD from Last 3 Months Allergies Active Allergy [...] After Visit Summary. 30 tablet 03/26/20 23 026 Active amiodarone (PACERONE) 200 mg tablet Take 1 tablet (200 mg total) by mouth daily 60 tablet 3 10/02/19 25 025 Active carvediloL (COREG) 25 mg tablet Take 1 tablet (25 mg total) by mouth daily 90 tablet 3 10/07/19 25 Active furosemide (LASIX) 40 mg tablet Take 1 tablet (40 mg total) by mouth 3 (three) times a week 60 tablet 2 01/07/20 25 Active losartan (COZAAR) 50 mg tablet Take 1 tablet (50 mg total) by mouth daily 90 tablet 2 01/07/20 25 026 Active spironolactone (ALDACTONE) 25 mg tablet Take 1 tablet by mouth once daily 90 tablet 3 02/11/20 25 Active spironolactone (ALDACTONE) 25 mg tablet Take 1 tablet by mouth once daily 90 tablet 2 05/07/20 24 025 Discontinued Active Problems Problem Noted Date Diagnosed Date ICD (implantable cardioverter-defibrillator) dis charge 03/23/2023 ICD (implantable cardioverte r-defibrillator), biventricular, in situ 04/13/2021 Overview (04/21/2023): Dodge DDD [place] BI-V ICD imp on 04/12/21 for DCM, [...] often do you attend chur ch or sikh services? 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 Gender Identity Not on file Sexual Orientation Not on file Last Filed Vital Signs Vital Sign Reading Time Taken Comments Blood Pressure 112/72 01/06/2025 9:56 AM CDT Pulse 60 01/06/2025 9:56 AM CDT Temperature 36.6 C (97.9 F) 03/26/2023 8:20 AM CDT Respiratory Rate 16 03/26/2023 8:20 AM CDT Oxygen Saturation 92% 01/06/2025 9:56 AM CDT Inhaled Oxygen Concentration - - Weight 84.4 kg (186 lb) 01/06/2025 9:56 AM CDT Height 162.6 cm (5' 4) 01/06/2025 9:56 AM CDT Body Mass Index 31.93 01/06/2025 9:56 AM CDT Plan of Treatment Not on file Medical Devices Implanted Type Area Salesperson Recreational Vehicles Device Identifier Shelf Expiration Date Model / Serial / Lot Dodge Vascular [id number] Defib Cardiac [id number] [place] Hf Df4 Is-4 Is-1 [facility] - [id number] - [id number] Implanted:Qty: 1 on 04/12/2021 by Bandar Gaffney MD at [facility] ICD [employer] V[employer] [id number] 02/01/2023 C [id number] / [id number] / [employer] 7120q/65 Durata 7fr 65cm 2 Coil Df-4 True Bipolar Active Fixation - [id number] - [id number] Implanted:Qty: 1 on 04/12/2021 by Bandar Gaffney MD at [facility] Lead [employer] [id number] 02/01/2022 7120Q/65 / [id number] / [employer] 2088tc/52 Tendril Sts 6fr 52cm Is-1 Connector Active Fixation Bipolar Soft - [id number] - [id number] Implanted:Qty: 1 on 04/12/2021 by Bandar Gaffney MD at [facility] Lead [employer] [id number] 03/03/2024 2088TC/52 / [id number] / [employer] 1458q/86 Quartet 5fr [id number] 4 Electrode Is-4 Connector Steerable Tip - [id number] - [id number] Implanted:Qty: 1 on 04/12/2021 by Bandar Gaffney MD at [facility] Lead [employer] [id number] 02/02/2024 1458Q/86 / [id number] / Insurance [place] [address] [facility] MEDIC[facility] ADVANTAGE Member Subscriber Plan / Payer (Ef fective 2016-Present) Name:YI MARTINO Relation to Subscriber:Self Name:Yi Martino Payer ID:[id number] (NAIC) Type:UHC MEDICARE Address: [place] [id number] UHC MEDICARE ADVANTAGE Advance Directives For more information, please contact: [phone] * Full Code (Latest Code Status on File) Date Activated Date Inactivated Comments 03/23/2023 7:04 AM 03/26/2023 7:27 PM Care Teams Stab Setter And Driller Relationship Specialty Start Date End Date Dillan Reddy MD [address] [facility] [address] [place] [address] PCP - General Internal Medicine 11/09/23 Bandar Gaffney MD Consulting Physician Cardiology 04/13/21
--- OUTSIDE RECORDS SUMMARY | 2025-02-17 15:14 | XMS_ITS | Clinical Summary ---
Author Organization [facility] [address] Address [address] [place] [address] Care Team Providers Care Hazardous Substances Engineer Name Role Phone Bandar Gaffney MD Unavailable [phone] Dillan Reddy MD Primary Care Provide r [...] in situ 04/13/2021 Overview (04/21/2023): Dodge DDD [place] BI-V ICD imp on 04/12/21 for DCM, [...] Type Department Care Team Description 02/10/2025 Telephone [facility] Medical [facility] Cardiology [address] [place] [address] [address] [place] [phone] Samy Ceja MD 01/13/2025 Telephone [facility] Cardiology [address] [place] [address] [address] [place] [phone] Samy Ceja MD 01/06/2025 10:00 AM CDT Office Visit [facility] Cardiology at [address] [place] [address] Samy Ceja MD Dilated cardiomyopathy (HCC) (Primary Dx) 01/02/2025 Telephone [facility] Cardiology [address] [place] [address] [address] [place] [address] Samy Ceja MD 01/01/2025 Telephone [facility] Cardiology [address] [facility] [address] [place] [phone] Samy Ceja MD 12/04/2024 Telephone [facility] Cardiology [address] [place] [address] [address] [place] [phone] Samy Ceja MD from Last 3 Months Immunizations Immunization Administration [...] often do you attend chur ch or restoration services? 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 Gender Identity Not on file Sexual Orientation [...] 01/06/2025 9:56 AM CDT Plan of Treatment Health Maintenance Due Date Last Done Comments Depression Screening 1945 Hepatitis C Screening 1945 Osteoporosis Screening-Bone Density Scan 1945 DTaP/Tdap/Td Vaccine (1 - Tdap) 1956 Hepatitis B Screening 12/02/1963 Well Visit 65+ 2010 Fall Risk Assessment 03/26/2024 03/26/2023 Covid-19 Vaccine (2023-10 5 season) 2024 05/26/2022, 02/22/2022, 06/30/2021, Additional history exists Influenza Vaccine (Season Ended) 2025 05/12/2020, 06/04/2019, 05/30/2019, Additional history exists Zoster Vaccine Completed 05/01/2018, 01/04/2018 Pneumococcal vaccine 65+ Completed 05/15/2018, 11/2015 Medical Devices Implanted Type Area Conference Assistant Device Identifier Shelf Expiration Date Model / Serial / Lot Dodge Vascular [id number] Defib Cardiac [id number] [place] Hf Df4 Is-4 Is-1 Cnctr - [id number] - [id number] Implanted:Qty: 1 on 04/12/2021 by Bandar Gaffney MD at [facility] ICD [employer] V[employer] [id number] 02/01/2023 C [id number] / [id number] / [employer] 7120q/65 Durata 7fr 65cm 2 Coil Df-4 True Bipolar Active Fixation - [id number] - [id number] Implanted:Qty: 1 on 04/12/2021 by Bandar Gaffney MD at [facility] Lead [employer] [id number] 02/01/2022 7120Q/65 / [id number] / [employer] 2088tc/52 Tendril Sts 6fr 52cm Is-1 Connector Active Fixation Bipolar Soft - [id number] - [id number] Implanted:Qty: 1 on 04/12/2021 by Bandar Gaffney MD at [facility] Lead [employer] [id number] 03/03/2024 2088TC/52 / [id number] / [employer] 1458q/86 Quartet 5fr [id number] 4 Electrode Is-4 Connector Steerable Tip - [id number] - [id number] Implanted:Qty: 1 on 04/12/2021 by Bandar Gaffney MD at [facility] Lead [facility] [id number] 02/02/2024 1458Q/86 / [id number] / Insurance [facility] MEDIC[facility] ADVANTAGE [facility] [place] Address: [address] [address] [place] [address] [facility] MEDIC[facility] AD[facility]ANTAGE [facility] [place] [facility] Address: [address] [address] [place] [address] UHC MEDICARE ADVANTAGE Advance Directives For more information, please contact: [phone] * Full Code (Latest Code Status on File) Date Activated Date Inactivated Comments 03/23/2023 7:04 AM 03/26/2023 7:27 PM Care Teams Hazardous Substances Engineer Relationship Specialty Start Date End Date Dillan Reddy MD [address] [address] PCP - General Internal Medicine 11/09/23 Bandar Gaffney MD Consulting Physician Cardiology 04/13/21
--- OUTSIDE RECORDS SUMMARY | 2025-02-17 15:15 | XMS_ITS | Data Portability ---
Author Organization [place] [facility], Main Office Address [address] [place] [address] Care Team Providers Care Automotive Airconditioning Mechanic Name Role Phone ELIAZARMANDYROQUE Primary Care Provider [phone] LANA TOVAR Referring Provider PEDRO AMAYA Psychiatrist LORETA HAQUE Sulfuric Acid Plant Supervisor JENNIFFER ROJAS Steel Chipper EVON CEJA Cardiac Surgeon Assessment Encounter Date Assessment Date Assessment LastModified by Organization Details LastModified Time 09/16/2024 09/16/2024 01/02/2024: ER labs WBC 16.5H Cr 1.10, Gluc 218 Trop 0.059H Xr chest mild pulm edema 06/12/2024: TG 192 K 3.4, gluc 62, BUN 22, Cr 1.83, GFR 27, AST 63 MCV 105.0 45 minutes spent with the patient and her CG Pippa, chart updated and referrals provided courtney Not available 09/16/2024 14:18:54 10/14/2024 10/14/2024 01/02/2024: ER labs WBC 16.5H Cr 1.10, Gluc 218 Trop 0.059H Xr chest mild pulm edema 06/12/2024: TG 192 K 3.4, gluc 62, BUN 22, Cr 1.83, GFR 27, AST 63 MCV 105.0 09/16/2024: K 5,4, BUN 27, Cr 1.51, GFR 33, ALT 40 TG 231 MCV 105 courtney Not available 10/14/2024 16:11:30 11/18/2024 11/18/2024 01/02/2024: ER labs WBC 16.5H Cr 1.10, Gluc 218 Trop 0.059H Xr chest mild pulm edema 06/12/2024: TG 192 K 3.4, gluc 62, BUN 22, Cr 1.83, GFR 27, AST 63 MCV 105.0 09/16/2024: K 5,4, BUN 27, Cr 1.51, GFR 33, ALT 40 TG 231 MCV 105 [email or web address] Not available 11/18/2024 11:37:17 01/01/2025 01/01/2025 Assessment: Never smoker (2nd hand smoking) Mild COPD Plan: The following were reviewed and explained to the patient: Chest CT 03/23/21 no P.E., up to [address] 12/13/23 up to 6 mm RUL nodules and GGO Chest CT 04/22/24 no nodules [place] PFT 05/25/23 decreased FEV1/FVC, FEV1 1.52 L (73%), TLC 5.26 L (101%), RV 3.04 L (128%), DLCO 54%, DLCO/VA 74% Oneill PFT 11/08/24 decreased FEV1/FVC, FEV1 1.28 L (73%), TLC 4.91 L (107%), RV 3.08 L (138%), DLCO 46%, DLCO/VA 84% Cough/Dyspnea workup will be done as follows: Respiratory allergen panel for [facility] Serum IgE Serum total IgG, IgG1, IgG2, IgG3, IgG4 Nbfpk-2-gsrrqlikro n phenotype and level TB stimulated gamma interferon B-type natriuretic peptide (BNP) Eosinophil count Advised to continue not to smoke. Start albuterol HFA 1 puff every 4 hours as needed. The patient does not know how to accurately administer the inhaler. Today, the patient was shown how to take this medication. The proper technique for delivering this medication was instructed. The patient expressed a clear understanding and demonstrated back how to use this medication. Without the proper technique, the patient will not reap the benefits of the treatment as the contents of the inhaler will not reach the lower airways as intended to be. Adherence to therapy is advocated. Nonadherence may lead to treatment failure, further progression of the condition, and other complications. Hospitals admissions are often the result of individuals not taking prescription medications accurately. Alternatively, greater adherence to medication regimens have shown to lower rates of hospitalization and decrease total medical costs in patients with chronic medical conditions. Advocated influenza vaccination annually and pneumonia vaccination NAIN. Advocated weight loss through diet and exercise. Patient's ideal body weight according to height and gender is up to 140 lbs. Encouraged patient to adjust caloric intake to maintain/achieve ideal body weight, emphasizing on fruits, vegetables, whole grains, and fat-free or low-fat products. These include lean meats, poultry, fish, beans, eggs, and nuts and foods that are low in saturated fats, trans-fats, cholesterol, salt (sodium), and glycemic index. Stressed the importance of regular exercise up to the patient's capacity limits. In this case, we recommend 20 min daily walking, 2 days a week of resistance training. Patient to monitor BP daily and bring records to PCP for further management. Follow-up: 3 weeks [email or web address] Not available 01/01/2025 15:13:24 01/13/2025 01/13/2025 01/02/2024: ER labs WBC 16.5H Cr 1.10, Gluc 218 Trop 0.059H Xr chest mild pulm edema 06/12/2024: TG 192 K 3.4, gluc 62, BUN 22, Cr 1.83, GFR 27, AST 63 MCV 105.0 09/16/2024: K 5,4, BUN 27, Cr 1.51, GFR 33, ALT 40 TG 231 MCV 105 Not available 01/13/2025 16:18:49 Plan of Treatment Reminders Order Date Submit Date Provider Last Modified By Organization Details Last Modified Time Details Appointments Any 15 2024 01:15P Isabel [email or web address] MD Not available Not available Not available Lab CMP, serum or plasma 2024 025 [email or web address] [facility] (Lab), [address] [place], [address], 01/13/2025 15:45:34 lipid panel, serum 2024 025 [email or web address] [facility] (Lab), [address] [place], [address], 01/13/2025 15:45:35 CBC w/ auto diff [address] [place] [address] (Lab), [address] [place], [address], 01/13/2025 15:45:35 TSH, serum or plasma [address] [place] [address] (Lab), [address] [place], [address], 01/13/2025 15:45:36 T4, free, serum [address] [place] [address] (Lab), [address] [place], [address], 01/13/2025 15:45:36 vitamin B12 + folate, serum or blood [address] [place] [address] (Lab), [address] [place], [address], 01/13/2025 15:45:36 alpha-1-a ntitrypsi n (aat) phenotype , serum [address] [place] [address] - Outpatient Lab, [address] [place], [address], 01/01/2025 15:18:12 BNP (B-type natriuret ic peptide), serum or plasma [address] [place] [address] - Outpatient Lab, [address] [place], [address], 01/01/2025 15:18:12 ige, total, serum [address] [place] [address] Outpatient Lab, [address] [place], [address], 01/01/2025 15:18:12 tb (M tuberculo sis), ifn-gamma giovanni, blood [address] - Outpatient Lab, [address] [place], [address], 01/01/2025 15:18:11 eosinophi l count, manual, blood (OBS) [address] Outpatient Lab, [address] [place], [address], 01/01/2025 15:18:[address] s 1+2+3+4, serum [address] Outpatient Lab, [address] [place], [address], 01/01/2025 15:18:11 respirato ry allergen panel - [facility] b [address] Outpatient Lab, [address] [place], [address], 01/01/2025 15:18:11 CMP, serum or plasma 2024 025 [facility] (Lab), [address] [place], [address], 11/18/2024 12:40:38 lipid panel, serum 2024 025 [facility] (Lab), [address] [place], [address], 11/18/2024 12:40:38 CBC w/ auto diff 2024 025 [facility] (Lab), [address] [place], [address], 11/18/2024 12:40:38 TSH, serum or plasma 2024 025 [facility] (Lab), [address] [place], [address], 11/18/2024 12:40:38 T4, free, serum 2024 025 [facility] (Lab), [address] [place], [address], 11/18/2024 12:40:38 vitamin B12 + folate, serum or blood 2024 025 [facility] (Lab), [address] [place], [address], 11/18/2024 12:40:38 potassium , serum 2024 025 [facility], [address], [place], [address], 11/13/2024 10:56:50 CMP, serum or plasma [address] (Lab), [address] [place], [address], 10/16/2024 10:04:23 lipid panel, serum [address] (Lab), [address] [place], [address], 10/16/2024 10:04:23 CBC w/ auto diff [address] (Lab), [address] [place], [address], 10/16/2024 10:04:24 TSH, serum or plasma [address] (Lab), [address] [place], [address], 10/16/2024 10:04:24 T4, free, serum [address] (Lab), [address] [place], [address], 10/16/2024 10:04:24 vitamin B12 + folate, serum or blood 2024 025 [email or web address] (Lab), [address] [place], [address], 10/16/2024 10:04:24 CMP, serum or plasma 2024 025 [facility] (Lab), [address] [place], [address], 09/16/2024 23:49:33 lipid panel, serum 2024 025 [facility] (Lab), [address] [place], [address], 09/16/2024 23:49:33 CBC w/ auto diff 2024 025 [facility] (Lab), [address] [place], [address], 09/17/2024 02:21:46 TSH, serum or plasma [address] (Lab), [address] [place], [address], 09/16/2024 14:41:19 T4, free, serum [address] (Lab), [address] [place], [address], 09/16/2024 14:41:19 vitamin B12 + folate, serum or blood [address] (Lab), [address] [place], [address], 09/16/2024 14:41:19 Referral gynecolog ist referral - Please call patient to schedule an appointme nt. Thank you. 2024 025 BROWN Conway MD, [address] [facility] [address], [place], [address], 01/16/2025 12:47:49 pulmonolo gist referral - Please call patient to schedule an appointme nt. Thank you. 2024 025 hrushingWallace Haque MD, [address], [place], [address], 01/20/2025 08:59:55 gynecolog ist referral - Please call patient to schedule an appointme nt. Thank you. 2024 025 BROWN Conway MD, [address] [facility] [address], [place], [address], 11/27/2024 10:40:36 gastroent erologist referral - Please call patient to schedule an appointme nt. Thank you. 2024 025 MARION De La Cruz MD, [address], [place], [address], 11/27/2024 10:46:48 nephrolog ist referral - Please call patient to schedule an appointme nt. Thank you. 2024 025 BROWN Causey MD, [address], [place], [address], 11/27/2024 11:40:35 pulmonolo gist referral - Please call patient to schedule an appointme nt. Thank you. 2024 025 hrushingWallace Haque MD, [address] [place], [address], 11/27/2024 10:17:15 gynecolog ist referral - Please call patient to schedule an appointme nt. Thank you. 2024 025 rupal Conway MD, [address], [place], [address], 02/10/2025 12:40:57 nephrolog ist referral - Please call patient to schedule an appointme nt. Thank you. 2024 025 rupal Causey MD, [address], [place], [address], 02/10/2025 12:40:58 pulmonolo gist referral - Please call patient to schedule an appointme nt. Thank you. 2024 025 rupal Haque MD, [address] [place], [address], 02/10/2025 12:40:57 gynecolog ist referral - Please call patient to schedule an appointme nt. Thank you. 2024 025 [email or web address] Johanne Conway MD, [address], [place], [address], 11/12/2024 10:36:12 orthopedi c surgeon referral - Please call patient to schedule an appointme nt. Thank you. 2024 025 [email or web address] Enrique Prince, [address], [place], [address], 11/12/2024 10:35:31 cardiolog ist referral 2024 025 [email or web address] Evon Ceja MD, [address], [place], [address], 09/17/2024 15:56:35 pulmonolo gist referral 2024 025 trever Haque MD, [address] [place], [address], 09/17/2024 15:56:35 Procedures None recorded. Surgeries None recorded. Imaging MAMMO, screening , bilateral - Please call patient to schedule. 2024 025 [facility] (Imaging), [address] [facility] [address], [place], [address], 01/13/2025 16:58:44 XR, hip + pelvis, unilatera l, 2 or 3 view 2024 025 [facility] (Imaging), [address], [place], [address], 09/16/2024 17:41:12 Medication Orders nystatin- triamcino lone 100,000 unit/g-0. 1 % topical cream 2024 025 [facility] [place], [address], 01/13/2025 15:43:11 albuterol sulfate HFA 90 mcg/actua tion aerosol inhaler 2024 025 [facility], [address] [place], [address], 01/01/2025 15:14:27 amoxicill in 500 mg capsule [address] [facility] [address], [address] [place], [address], 12/27/2024 14:45:13 warfarin 1 mg tablet [address] [facility] [address], [address] [place], [address], 12/02/2024 09:18:18 warfarin 3 mg tablet [address] [facility] [address], [address] [place], [address], 12/02/2024 09:18:18 Medrol ([place]) 4 mg tablets in a dose pack 2024 025 [email or web address] [facility], [address] [place], [address], 10/14/2024 15:18:56 Patient TargetsNo targets recorded. Patient InstructionsNo instructions recorded. Reason for Referral Aviation Project Engineer Referral for Gy necologic examination Please call patient to schedule an appointment. Thank you. Referring Physician: Roque Reddy Internal Medicine, Encounter Date: 09/16/2024 Sulfuric Acid Plant Supervisor Referral for M ultiple nodules of lung Referring Physician: Roque Reddy Internal Medicine, Encounter Date: 09/16/2024 Liquified Natural Gas Technician Referral for No nischemic congestive cardiomyopathy Referring Physician: Roque Reddy Internal Medicine, Encounter Date: 09/16/2024 Orthopedic Surgeon Referral for Pain of right hip joint Please call patient to schedule an appointment. Thank you. Referring Physician: Roque Reddy Internal Medicine, Encounter Date: 09/16/2024 Aviation Project Engineer Referral for Gy necologic examination Please call patient to schedule an appointment. Thank you. Referring Physician: Roque Reddy Internal Medicine, Encounter Date: 10/14/2024 Sulfuric Acid Plant Supervisor Referral for M ultiple nodules of lung Please call patient to schedule an appointment. Thank you. Referring Physician: Roque Reddy Internal Medicine, Encounter Date: 10/14/2024 Media Production Manager Referral for Ch ronic kidney disease Please call patient to schedule an appointment. Thank you. Referring Physician: Roque Reddy Internal Medicine, Encounter Date: 10/14/2024 Aviation Project Engineer Referral for Gy necologic examination Please call patient to schedule an appointment. Thank you. Referring Physician: Roque Reddy Internal Medicine, Encounter Date: 11/18/2024 Sulfuric Acid Plant Supervisor Referral for M ultiple nodules of lung Please call patient to schedule an appointment. Thank you. Referring Physician: Roque Reddy Internal Medicine, Encounter Date: 11/18/2024 Media Production Manager Referral for Ch ronic kidney disease Please call patient to schedule an appointment. Thank you. Referring Physician: Roque Reddy Internal Medicine, Encounter Date: 11/18/2024 Steel Chipper Referral for Nausea Please call patient to schedule an appointment. Thank you. Referring Physician: Roque Reddy Internal Medicine, Encounter Date: 11/18/2024 Aviation Project Engineer Referral for Gy necologic examination Please call patient to schedule an appointment. Thank you. Referring Physician: Roque Reddy Internal Medicine, Encounter Date: 01/13/2025 Sulfuric Acid Plant Supervisor Referral for M ultiple nodules of lung Please call patient to schedule an appointment. Thank you. Referring Physician: Roque Reddy Internal Medicine, Encounter Date: 01/13/2025 Results Created Date Observation Date Name Description Value Unit Range Abnormal Flag Note LastModifiedBy Organization Detail LastModifiedTime 01/17/20 25 01/16/2025 PT/IN R PT 80.3 Not Available [facility] Internal Med [facility] [address] [facility] [address], [place], [address], 01/16/2025 14:26:29 01/17/20 25 01/16/2025 PT/IN R INR 6.7 Not Available [facility] Internal Med [facility] [address], [place], [address], 01/16/2025 14:26:29 09/16/19 25 09/16/2024 XR, hip + pelvi s, unila teral , 2 or 3 view No observ ation record ed. [facility] [address], [place], [address], 09/16/2024 17:41:12 11/28/19 25 11/08/2024 compl ete PFT w/ [facility] hodil ator norberto metry * No observ ation record ed. [address] (Pulmonary) [address], [place], [address], 12/08/2024 15:13:19 Result Notes None recorded. Problems Name Problem SNOMED Code Status Onset Date Resolution Date Notes Provider Name and Address Organization Details Recorded Time Gastroesop hageal reflux disease 802061039 Active Not Available [facility] 09:29:51 Vitamin D deficiency 72064387 Active Not Available [facility] 3 09:29:52 Hypothyroi dism 85336097 Active Not Available [facility] 3 09:29:52 Osteoporos is 87795214 Active 2020 DEXA Not Available [facility] 3 09:29:53 Long-term current use of anticoagul ant 042040406 Active 2020 Not Available [facility] 3 09:29:53 Essential hypertensi on 21964469 Active 2022 Lana Tovar MD [address], [place], [address] , [facility] 3 15:26:22 Moderate recurrent major depression 27523431 Active 2023 Roque holden MD [address], [place], [address] , [facility] 4 12:14:22 Nonischemi c congestive cardiomyop athy 409157490677 Active 2023 Roque holden MD [address], [place], [address] , [facility] 4 12:15:17 Hiatal hernia 60228510 Active 2023 Roque holden MD [address], [place], [address] , [facility] 4 14:48:45 Hyperlipid emia 51254350 Active 2023 Rula Recio MA null, [place] [facility] 4 12:42:42 Liver enzymes level above reference range 522204165 Active 2023 Rula Recio MA null, [place] [facility] 4 12:08:58 Atrial fibrillati on 10556135 Active 2023 Rula Recio MA null, [place] [facility] 4 10:50:09 Chronic kidney disease 907220274 Active 2024 Roque holden MD [address], [place], [address] , [facility] 5 15:42:06 Mild chronic obstructiv e pulmonary disease 708854114 Active 2024 Loreta Haque MD [address], [place], [address] , [facility] 5 15:13:17 Dental caries 58478454 Active 2024 Roque holden MD [address], [place], [address] , [facility] 5 12:23:26 Multiple nodules of lung 430537463 Active 2024 Roque holden MD [address], [place], [address] , [facility] 5 14:34:08 Nausea 670446457 Active 2024 PEREZ Hills null, [place] [facility] 5 12:11:14 Eruption 559531773 Active 2024 Roque holden MD [address], [place], [address] , [facility] 5 15:41:40 Notes:Medical History: Cereb ral atrophy Depression/Anxiety Rhinitis with postnasal drip Mild COPD Hypothyroidism Mixed hyperlipidemia Hypertension with mild LVH Severe LVE Mild LAE CHF 32% Atrial fibrillation Hiatal hernia with HUGO Sigmoid diverticulosis Bilateral renal cysts CKD RLS Vit B12 deficiency Vit D deficiency Femoral osteoporosis Thoracic spondylosis Lumbar DDD Lumbar levoscoliosis Procedure History: T&A 1954 OFELIA 1977 Left knee replacement 2007 Right knee replacement 2012 Exploratory laparotomy for SBO 2014 AICD placement 2021 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 Procedures Surgical History Date Name Laterality Status Provider Name and Address Organization Details Recorded Time 04/17/20 Chronic care management services completed Jaclyn Huizar [place] [email or web address] [facility] 06/03/2024 19:11:19 02/26/20 Chronic care management services completed Ara Ozuna [facility] 02/26/2024 14:23:59 01/16/20 Chronic care management services completed Ara Ozuna RN [facility] 01/16/2024 18:07:23 12/06/19 Medicare Wellness CPT Code, subsequent completed PEREZ [place] [email or web address] [facility] 12/06/2023 14:03:15 04/10/20 Transitional_Care _Management completed THI Gatica [address], [address], [employer] [facility] 04/11/2023 08:40:38 Rotator cuff surgery completed Lorraine Morris MA [facility] 01/08/2024 11:34:43 operation on intestine completed Lorraine Morris MA [facility] [employer] 01/08/2024 11:35:04 Tonsillectomy completed Lorraine Morris MA [facility] 01/08/2024 11:35:14 Tubal Ligation completed Lorraine Morris MA [facility] 01/08/2024 11:37:01 Imaging Results None recorded. Procedure Notes None recorded. Medical Equipment None Reported. Allergies Allergen ID Allergen Name Allergen Category Reaction Reaction Severity Criticality Documentation Date Start Date Code Code System Note Provider Name and Address Organization Details Recorded Time 59811 tramadol medicatio n Not available Not available Not available 11/02/2022 36812 RxNorm Vomit ing Not Available [facility] 3 09:34:02 27383 Non-stero idal anti-infl ammatory agent (product) medicatio n hives moderate Not available 11/02/2022 58434 005 SNOMED Also CKD Not Available [facility] 3 09:34:02 23256 Lamictal medicatio n rash Not available Not available 11/02/2022 75240 2 RxNorm Not Available [facility] 3 09:34:02 99746 codeine medicatio n nausea Not available Not available 11/18/2022 2670 RxNorm MIKE Linder [address] [facility], [facility] [address], [place], [address] , [facility] 3 10:59:48 Medications Name Sig Start Date Stop Date Status Note LastModified by Organization Details LastModified Time losartan 50 mg tablet TAKE 1 TABLET BY MOUTH ONCE DAILY active Not Available Not Available No t Available quetiapin e 25 mg tablet 05/07 completed Not Available Not Available Not Available cyclobenz aprine 10 mg tablet Take 1 tablet 3 times a day by oral route as needed. 09/16 completed Not Available Not Available Not Available amoxicill in 500 mg capsule Take 1 capsule 3 times a day by oral route for 7 days. 12/27 completed Not Available Not Available Not Available furosemid e 40 mg tablet TAKE 1 TABLET BY MOUTH THREE TIMES A WEEK active Not Available Not Available No t Available atorvasta tin 40 mg tablet TAKE 1 TABLET BY MOUTH ONCE DAILY AT BEDTIME 11/05 completed Not Available Not Available Not Available buspirone 5 mg tablet active Not Available Not Available Not Available carvedilo l 25 mg tablet TAKE 1 TABLET BY MOUTH ONCE DAILY active Not Available Not Available No t Available nystatin 100,000 unit/mL oral suspensio n 05/07 completed Not Available Not Available Not Available venlafaxi ne ER 37.5 mg capsule,e xtended release 24 hr TAKE 1 CAPSULE BY MOUTH ONCE DAILY WITH FOOD active Not Available Not Available No t Available prednison e 10 mg tablet 09/06 completed Not Available Not Available Not Available venlafaxi ne ER 75 mg capsule,e xtended release 24 hr 11/05 completed Not Available Not Available Not Available nitrofura ntoin macrocrys jose 50 mg capsule 03/16 completed Not Available Not Available Not Available doxycycli ne hyclate 100 mg capsule TAKE 1 CAPSULE BY MOUTH TWICE DAILY FOR 7 DAYS 11/05 completed Not Available Not Available Not Available carvedilo l 12.5 mg tablet TAKE 1 TABLET BY MOUTH TWICE DAILY WITH FOOD 02/17 completed Not Available Not Available Not Available ropinirol e 1 mg tablet 03/22 completed Not Available Not Available Not Available desoximet asone 0.25 % topical cream APPLY A THIN LAYER TO THE AFFECTED AREA(S) BY TOPICAL ROUTE 2 TIMES PER DAY ; RUB IN GENTLY AND COMPLETE LY 02/11 completed Not Available Not Available Not Available donepezil 5 mg tablet TAKE 1 TABLET BY MOUTH AT BEDTIME ONCE DAILY 09/16 completed Not Available Not Available Not Available quetiapin e 300 mg tablet 03/16 completed Not Available Not Available Not Available enalapril maleate 10 mg tablet 02/11 completed Not Available Not Available Not Available clindamyc in HCl 300 mg capsule TAKE 1 CAPSULE BY MOUTH 4 TIMES DAILY FOR 10 DAYS 01/05 completed Not Available Not Available Not Available BD Insulin Syringe 1 mL 25 x 1 USE TO INJECT B12 DIRECTED 02/17 completed Not Available Not Available Not Available enalapril maleate 5 mg tablet 1 po bid 02/11 completed Not Available Not Available Not Available azithromy brennon 250 mg tablet TAKE 2 TABLETS (500 MG) BY ORAL ROUTE ONCE DAILY FOR 1 DAY THEN 1 TABLET (250 MG) BY ORAL ROUTE ONCE DAILY FOR 4 DAYS active Not Available Not Available No t Available Retin-A 0.025 % topical cream APPLY TO THE AFFECTED AREA(S) BY TOPICAL ROUTE ONCE DAILY AT BEDTIME active Not Available Not Available No t Available alprazola m 1 mg tablet active Not Available Not Available Not Available Lidocaine Viscous 2 % mucosal solution 03/22 completed Not Available Not Available Not Available ofloxacin 0.3 % eye drops INSTILL 1 DROP INTO AFFECTED EYE(S) BY OPHTHALM IC ROUTE 4 TIMES PER DAY x 7 days active Not Available Not Available No t Available amiodaron e 200 mg tablet TAKE 1 TABLET BY MOUTH ONCE DAILY active Not Available Not Available No t Available benzonata te 200 mg capsule TAKE 1 CAPSULE BY MOUTH THREE TIMES DAILY NEEDED FOR COUGH 11/05 completed Not Available Not Available Not Available hydrocodo ne 5 mg-acetam inophen 325 mg tablet TAKE 1 TABLET BY MOUTH EVERY 4 TO 6 HOURS NEEDED FOR PAIN active Not Available Not Available No t Available prochlorp erazine maleate 5 mg tablet active Not Available Not Available No t Available ondansetr on HCl 8 mg tablet TAKE ONE TABLET BY MOUTH EVERY 8 HOURS NEEDED 05/12 completed Not Available Not Available Not Available donepezil 10 mg tablet TAKE 1 TABLET BY MOUTH ONCE DAILY AT BEDTIME active Not Available Not Available No t Available ondansetr on HCl 4 mg tablet TAKE 1 TABLET BY MOUTH TWICE DAILY NEEDED 12/27 completed Not Available Not Available Not Available prednison e 20 mg tablet TAKE 2 TABLETS BY MOUTH ONCE DAILY FOR 5 DAYS 11/05 completed Not Available Not Available Not Available alendrona te 70 mg tablet TAKE 1 TABLET BY MOUTH WEEKLY 01/13 completed Not Available Not Available Not Available clonazepa m 0.5 mg tablet TAKE 1 TABLET BY MOUTH THREE TIMES DAILY active Not Available Not Available No t Available sertralin e 100 mg tablet 2 tabs po qday 03/16 completed Not Available Not Available Not Available quetiapin e 200 mg tablet 05/07 completed Not Available Not Available Not Available olanzapin e 5 mg tablet active Not Available Not Available Not Available clonazepa m 1 mg tablet TAKE 1 TABLET BY MOUTH TWICE DAILY 11/05 completed Not Available Not Available Not Available methylpre dnisolone 4 mg tablet 09/06 completed Not Available Not Available Not Available Diflucan 150 mg tablet take one tab by mouth for one day. 12/27 completed Not Available Not Available Not Available penicilli n V potassium 500 mg tablet 01/05 completed Not Available Not Available Not Available Nexium 40 mg capsule,d elayed release active Not Available Not Available Not Available meclizine 12.5 mg tablet TAKE 2 TABLETS BY MOUTH TWICE DAILY NEEDED 11/05 completed Not Available Not Available Not Available ciproflox acin 250 mg tablet TAKE 1 TABLET BY MOUTH EVERY 12 HOURS FOR 7 DAYS active Not Available Not Available No t Available ciproflox acin 500 mg tablet TAKE 1 TABLET BY MOUTH TWICE DAILY FOR 7 DAYS 12/27 completed Not Available Not Available Not Available Tamiflu 75 mg capsule Take 1 capsule twice a day by oral route for 5 days. 03/16 completed Not Available Not Available Not Available folic acid 400 mcg tablet Take 1 tablet every day by oral route. 11/05 completed Not Available Not Available Not Available sulfameth oxazole 800 mg-trimet hoprim 160 mg tablet TAKE 1 TABLET BY MOUTH TWICE DAILY FOR 10 DAYS 01/05 completed Not Available Not Available Not Available olanzapin e 2.5 mg tablet active Not Available Not Available Not Available omeprazol e 40 mg capsule,d elayed release Take 1 capsule every day by oral route. 11/05 completed Not Available Not Available Not Available tramadol 50 mg tablet active Not Available Not Available Not Available spironola ctone 25 mg tablet TAKE 1 TABLET BY MOUTH ONCE DAILY active Not Available Not Available No t Available amoxicill in 500 mg tablet Take 1 tablet every 12 hours by oral route for 10 days. 01/05 completed Not Available Not Available Not Available ondansetr on 8 mg disintegr ating tablet DISSOLVE 1 TABLET IN MOUTH TWICE DAILY NEEDED 12/27 completed Not Available Not Available Not Available warfarin 4 mg tablet TAKE 1 TABLET BY MOUTH DAILY DIRECTED active Not Available Not Available No t Available lamotrigi ne 25 mg tablet active Not Available Not Available Not Available warfarin 3 mg tablet TAKE 1 TABLET BY MOUTH ONCE DAILY IN THE EVENING active Not Available Not Available No t Available oxycodone -acetamin ophen 5 mg-325 mg tablet active Not Available Not Available Not Available amoxicill in 875 mg tablet TAKE 1 TABLET BY MOUTH EVERY 12 HOURS FOR 7 DAYS active Not Available Not Available No t Available potassium chloride ER 20 mEq tablet,ex tended release(p art/cryst ) 2 tabs po bid 12/26 completed Not Available Not Available Not Available famotidin e 20 mg tablet TAKE 1 TABLET BY MOUTH TWICE DAILY NEEDED active Not Available Not Available No t Available Euthyrox 125 mcg tablet Take 1 tablet every day by oral route. 04/26 completed Not Available Not Available Not Available triamcino lone acetonide 0.1 % dental paste APPLY THIN LAYER ON AFFECTED AREA(S) ONCE DAILY AT BEDTIME active Not Available Not Available No t Available Euthyrox 112 mcg tablet TAKE 1 TABLET BY MOUTH ONCE DAILY 04/26 completed Not Available Not Available Not Available hydrocort isone 1 % topical cream APPLY A THIN LAYER TO THE AFFECTED AREA(S) BY TOPICAL ROUTE 2 TIMES PER DAYDO NOT PUT IN VAGINA 12/27 completed Not Available Not Available Not Available hydrocodo ne 7.5 mg-acetam inophen 325 mg tablet Take 1 tablet every 6 hours by oral route as needed. 02/11 completed Not Available Not Available Not Available cephalexi n 500 mg capsule 09/06 completed Not Available Not Available Not Available pantopraz ole 40 mg tablet,de layed release 05/07 completed Not Available Not Available Not Available simvastat in 20 mg tablet 1 po qhs 03/03 completed Not Available Not Available Not Available erythromy brennon 5 mg/gram (0.5 %) eye ointment active Not Available Not Available Not Available cyanocoba lenora (vit B-12) 1,000 mcg/mL injection solution INJECT 1 ML INTRAMUS CULARLY ONCE EVERY MONTH active Not Available Not Available No t Available mirtazapi ne 30 mg tablet active Not Available Not Available Not Available trazodone 150 mg tablet TAKE 1 & 1/2 (ONE & ONE-HALF ) TABLETS BY MOUTH ONCE DAILY AT BEDTIME active Not Available Not Available No t Available nitrofura ntoin macrocrys jose 100 mg capsule Take 1 capsule twice a day by oral route for 10 days. active Not Available Not Available No t Available triamcino lone acetonide 0.1 % topical ointment APPLY A THIN LAYER OF OINTMENT TOPICALL Y TO AFFECTED AREA TWICE DAILY NEEDED 02/17 completed Not Available Not Available Not Available ropinirol e 0.5 mg tablet TAKE 1 TABLET BY MOUTH ONCE DAILY AT BEDTIME FOR 90 DAYS active Not Available Not Available No t Available ranitidin e 150 mg tablet Take 1 tablet twice a day by oral route. 02/11 completed Not Available Not Available Not Available buspirone 10 mg tablet 05/07 completed Not Available Not Available Not Available ramipril 2.5 mg capsule TAKE 1 CAPSULE BY MOUTH ONCE DAILY 09/[address] stop this med Not Available Not Available Not Available lisinopri l 10 mg tablet 1 po qday 03/16 completed Not Available Not Available Not Available warfarin 2 mg tablet TAKE 1 TABLET BY MOUTH TWICE DAILY, FOR ON MONDAY AND 10/14 completed Not Available Not Available Not Available warfarin 5 mg tablet Take one tablet daily 04/24 completed Not Available Not Available Not Available levothyro xine 150 mcg tablet TAKE 1 TABLET BY MOUTH ONCE DAILY active Not Available Not Available No t Available nystatin- triamcino lone 100,000 unit/g-0. 1 % topical cream APPLY TO THE AFFECTED AREA TWICE DAILY. ONCE IN THE MORNING AND ONCE IN THE EVENING active Not Available Not Available No t Available omeprazol e 20 mg capsule,d elayed release 05/07 completed Not Available Not Available Not Available cephalexi n 500 mg tablet Take 1 tablet twice a day by oral route for 7 days. 09/06 completed Not Available Not Available Not Available monteluka st 10 mg tablet 02/11 completed Not Available Not Available Not Available hydroxyzi ne HCl 25 mg tablet 02/11 completed Not Available Not Available Not Available hydrocodo ne 5 mg-acetam inophen 500 mg tablet active Not Available Not Available Not Available digoxin 125 mcg (0.125 mg) tablet 05/07 completed Not Available Not Available Not Available mirtazapi ne 15 mg tablet 03/22 completed Not Available Not Available Not Available gabapenti n 100 mg capsule 11/18 completed Not Available Not Available Not Available Aspir-81 mg tablet,de layed release Take 1 tablet every day by oral route. 02/01 completed Not Available Not Available Not Available warfarin 1 mg tablet TAKE 1 TABLET BY MOUTH ONCE DAILY ON Monday AND SUNDAYS active Not Available Not Available No t Available polyethyl nata glycol 3350 17 gram/dose oral powder 03/22 completed Not Available Not Available Not Available methylpre dnisolone 4 mg tablets in a dose pack TAKE BY MOUTH DIRECTED ON INSIDE OF PACKAGE 10/14 completed Not Available Not Available Not Available albuterol sulfate HFA 90 mcg/actua tion aerosol inhaler INHALE 1 PUFF BY MOUTH EVERY 4 HOURS NEEDED active Not Available Not Available No t Available hydroxyzi ne HCl 10 mg tablet TAKE 1 TABLET BY MOUTH TWICE DAILY NEEDED 11/05 completed Not Available Not Available Not Available brompheni ramine-ps eudoephed rine-DM 2 mg-30 mg-10 mg/5 mL oral syrup Take 10 mL every 4 hours by oral route as needed for 5 days. 12/26 completed Not Available Not Available Not Available ondansetr on 4 mg disintegr ating tablet DISSOLVE 2 TABLETS IN MOUTH TWICE DAILY FOR 7 DAYS active Not Available Not Available No t Available fluticaso ne propionat e 50 mcg/actua tion nasal spray,kamari pension [place] 1 spray every day by intranas al route for 30 days. 11/05 completed Not Available Not Available Not Available doxycycli ne hyclate 100 mg tablet Take 1 tablet twice a day by oral route for 7 days. active Not Available Not Available No t Available amoxicill in 875 mg-potass ium clavulana te 125 mg tablet TAKE 1 TABLET BY MOUTH EVERY 12 HOURS FOR 7 DAYS 09/16 completed Not Available Not Available Not Available buspirone 15 mg tablet 1 po tid 03/16 completed Not Available Not Available Not Available neomycin 3.5 mg/g-poly myxin B 10,000 unit/g-de xameth 0.1 % eye oint active Not Available Not Available Not Available Pneumovax -23 25 mcg/0.5 mL injection syringe 09/06 completed Not Available Not Available Not Available escitalop marion 10 mg tablet 02/11 completed Not Available Not Available Not Available escitalop marion 20 mg tablet 07/17 completed Not Available Not Available Not Available Restasis 0.05 % eye drops in a dropperet te 03/22 completed Not Available Not Available Not Available aripipraz ole 5 mg tablet TAKE 1 TABLET BY MOUTH ONCE DAILY IN THE EVENING FOR 90 DAYS 11/05 completed Not Available Not Available Not Available rosuvasta tin 40 mg tablet TAKE 1 TABLET BY MOUTH ONCE DAILY active Not Available Not Available No t Available memantine 10 mg tablet TAKE 1 TABLET BY MOUTH TWICE DAILY 11/05 completed pt stopped on her own Not Available Not Available Not Available memantine 5 mg tablet TAKE 1 TABLET BY MOUTH TWICE DAILY 11/05 completed pt stopped on her own Not Available Not Available Not Available escitalop marion 5 mg tablet 02/11 completed Not Available Not Available Not Available Tuberculi n Syringe 1 mL 25 gauge x 1 USE WITH B12 INJECTIO NS DIRECTED 02/17 completed Not Available Not Available Not Available mirtazapi ne 7.5 mg tablet TAKE 1 TABLET BY MOUTH ONCE DAILY AT BEDTIME FOR 30 DAYS 11/05 completed Not Available Not Available Not Available nitrofura ntoin monohydra te/macroc rystals 100 mg capsule Take 1 capsule every 12 hours by oral route for 7 days. 11/18 completed Not Available Not Available Not Available duloxetin e 60 mg capsule,d elayed release 03/22 completed Not Available Not Available Not Available chlorhexi dine gluconate 0.12 % mouthwash RINSE MOUTH FOR 30 SECONDS WITH 15 ML AND THEN EXPECTOR ATE TWICE DAILY FOR 1 WEEK. DO NOT SWALLOW 11/05 completed Not Available Not Available Not Available Tylenol Extra Strength 07/11 completed Not Available Not Available Not Available cholecalc iferol (vitamin D3) 1,250 mcg (50,000 unit) capsule Take 1 capsule by mouth once a week 09/16 completed Not Available Not Available Not Available Seroquel XR 200 mg tablet,ex tended release active Not Available Not Available Not Available Seroquel XR 150 mg tablet,ex tended release active Not Available Not Available Not Available Prevnar 13 (PF) 0.5 mL intramusc ular syringe 09/06 completed Not Available Not Available Not Available Latuda 40 mg tablet Take 1 tablet every day by oral route. 03/22 completed Not Available Not Available Not Available Viibryd 20 mg tablet Take 1 tablet every day by oral route. 05/12 completed Not Available Not Available Not Available Xarelto 10 mg tablet TK ONE T PO D FOR 7 DAYS active Not Available Not Available No t Available lurasidon e 20 mg tablet 11/05 completed Not Available Not Available Not Available Neupro 1 mg/24 hour transderm al 24 hour patch active Not Available Not Available Not Available Fluzone High-Dose (PF) 180 mcg/0.5 mL intramusc ular syringe active Not Available Not Available Not Available potassium chloride ER 20 mEq tablet,ex tended release Take 2 tablets every day by oral route for 5 days. 01/13 completed Not Available Not Available Not Available Fluvirin 2126-2392 45 mcg (15 mcg x 3)/0.5 mL intramusc ular suspensio n INJECT 0.5 ML INTRAMUS CULARLY DIRECTED . active Not Available Not Available No t Available Anti-Diar rheal 07/11 completed Not Available Not Available Not Available Afluria 8255-3739 (PF) 45 mcg (15 mcg x 3)/0.5 mL IM syringe active Not Available Not Available Not Available Entresto 49 mg-51 mg tablet Take 1 tablet twice a day by oral route for 90 days. 06/12 completed Not Available Not Available Not Available Entresto 24 mg-26 mg tablet Take 1 tablet twice a day by oral route. 01/[address] Cary lujan 06/07/20 Not Available Not Available Not Available Vraylar 1.5 mg capsule Take 1 capsule every day by oral route. active Not Available Not Available No t Available Fluzone High-Dose 4950-6591 (PF) 180 mcg/0.5 mL intramusc ular syringe 09/06 completed Not Available Not Available Not Available Fluzone High-Dose 6709-4708 (PF) 180 mcg/0.5 mL intramusc ular syringe 05/12 completed Not Available Not Available Not Available Shingrix (PF) 50 mcg/0.5 mL intramusc ular suspensio n, kit 05/12 completed Not Available Not Available Not Available Fluzone High-Dose 2086-7015 (PF) 180 mcg/0.5 mL intramusc ular syringe 05/12 completed Not Available Not Available Not Available Fluzone High-Dose (PF) 180 mcg/0.5 mL intramusc ular syringe active Not Available Not Available Not Available Fluzone High-Dose Quad (PF) 240 mcg/0.7 mL IM syringe ADM 0.7ML IM UTD active Not Available Not Available No t Available Vitals Date Recorded Body height Body mass index (BMI) Body weight Body temperature Heart rate Systolic blood pressure Diastolic blood pressure Provider Name and Address Organization Details Last Updated DateTime 5 167.64 cm 29.1 kg/m2 12175.6 3 g 97.2 [degF] 72 /min 114 mm[Hg] 68 mm[Hg] PEREZ Hills [facility] 14:12:09 Date Recorded Body height Body weight Body temperature Heart rate Oxygen saturation Oxygen saturation in Arterial blood by Pulse oximetry Systolic blood pressure Diastolic blood pressure Provider Name and Address Organization Details Last Updated DateTime 5 167.64 cm 15919.6 3 g 97.8 [degF] 64 /min 97 % 97 % 122 mm[Hg] 82 mm[Hg] Yana Kelley [facility] [employer] 5 15:22:27 Date Recorded Body height Body mass index (BMI) Body weight Body temperature Heart rate Systolic blood pressure Diastolic blood pressure Provider Name and Address Organization Details Last Updated DateTime 5 167.64 cm 29.5 kg/m2 39597.4 g 98.3 [degF] 72 /min 132 mm[Hg] 80 mm[Hg] Susana Kaylan Zurdo [facility] [employer] [facility] 5 10:50:14 Date Recorded Heart rate Oxygen saturation Oxygen saturation in Arterial blood by Pulse oximetry Heart rate Respiratory rate Provider Name and Address Organization Details Last Updated DateTime 5 91 /min 97 % 97 % 91 /min 15 /min Loreta Haque MD [address] [place] [address], [id number], [place] [email or web address] [facility] [employer] 5 15:15:58 Date Recorded Body height Body mass index (BMI) Body weight Body temperature Systolic blood pressure Diastolic blood pressure Provider Name and Address Organization Details Last Updated DateTime 5 167.64 cm 28.7 kg/m2 41415.4 4 g 98.3 [degF] 124 mm[Hg] 76 mm[Hg] Lauryn Raines MA [facility] [employer] 5 14:56:19 Date Recorded Body height Body mass index (BMI) Body weight Body temperature Heart rate Oxygen saturation Oxygen saturation in Arterial blood by Pulse oximetry Systolic blood pressure Diastolic blood pressure Provider Name and Address Organization Details Last Updated DateTime 5 167.64 cm 28.6 kg/m2 44883.8 5 g 98.5 [degF] 68 /min 97 % 97 % 154 mm[Hg] 84 mm[Hg] Lorraine Morris MA [place] [facility] [employer] 14:50:37 Social History Question Answer Notes LastModified by Organization Details LastModified Time Tobacco Smoking Status Never Smoker Not Available [facility] 11/02/2022 09:26:39 Do You Have An Advance Directive? Yes Information not available 04/17/2024 Are You Blind Or Do You Have Difficulty Seeing? No [email or web address] Information not available 12/06/2023 Is Blood Transfusion Acceptable In An Emergency? Yes [email or web address] Information not available 01/16/2024 What Is Your Level Of Caffeine Consumption? Heavy 3 Coca Cola's Per Day [email or web address] Information not available 01/16/2024 In The 14 Days Before Symptom Onset, Have You Had Close Contact With A Laboratory-confi rmed COVID-19 While That Case Was Ill? No [id number] Information not available 11/02/2022 In The 14 Days Before Symptom Onset, Have You Had Close Contact With A Person Who Is Under Investigation For COVID-19 While That Person Was Ill? No [id number] Information not available 11/02/2022 Are You Deaf Or Do You Have Serious Difficulty Hearing? No Information not available 11/06/2023 What Type Of Diet Are You Following? REGULAR [id number] Information not available 11/02/2022 What Is The Highest Grade Or Level Of School You Have Completed Or The Highest Degree You Have Received? [id number] Information not available 11/02/2022 Do You Have An Electrostatic Air Filter? No Information not available 01/01/2025 Have There Been Any Changes To Your Family Or Social Situation? Yes Lives With Roomate [email or web address] Information not available 01/16/2024 What Is The Fluoride Status Of Your Home? Unknown Information not available 11/06/2023 Are There Any Guns Present In Your Home? No [id number] Information not available 11/02/2022 Do You Have A Humidifier? No Information not available 01/01/2025 Do You Use Insect Repellent Routinely? No [id number] Information not available 11/02/2022 Where Do You Live? SingleLevelHouse [email or web address] Information not available 12/06/2023 Are You Able To Care For Yourself? No [email or web address] Information not available 12/06/2023 Are You Blind Or Do Yo Have Difficulty Seeing? No [email or web address] Information not available 12/06/2023 Are You Deaf Or Do You Have Serious Difficulty Hearing? No [email or web address] Information not available 12/06/2023 Live Alone Of With Others? With Others [email or web address] Information not available 12/06/2023 Do You Have A Medical Power Of Physician Neonatology? Yes Brother-Jone Moore [email or web address] Information not available 01/16/2024 Do You Have Moisture Problems In Your Home? No Information not available 01/01/2025 What Was The Date Of Your Most Recent Tobacco Screening? 01/13/2025 [email or web address] Information not available 01/13/2025 How Many Children Do You Have? 1 [email or web address] Information not available 01/16/2024 Do You Have Any Pets? Yes 2 Cats [email or web address] Information not available 01/16/2024 What Is Your Relationship Status? [id number] Information not available 11/02/2022 Do You Use Your Seat Belt Or Car Seat Routinely? Yes [id number] Information not available 11/02/2022 Are You Sexually Active? No [email or web address] Information not available 01/16/2024 Do You Have Smoke And Carbon Monoxide Detectors In Your Home? Yes [id number] Information not available 11/02/2022 Are You Passively Exposed To Smoke? Yes Information not available 11/06/2023 Are There Any Smokers In Your House? Yes Information not available 11/06/2023 Do You Participate In Social Media? No [id number] [id number] Information not available 11/02/2022 Do You Use Sunscreen Routinely? No [id number] [id number] Information not available 11/02/2022 Has Tobacco Cessation Counseling Been Provided? No N/a Information not available 11/06/2023 Have You Recently Traveled Abroad? No [id number] Information not available 11/02/2022 Do You Have Difficulty Walking Or Climbing Stairs? Yes Uses A Walker [email or web address] Information not available 01/16/2024 Are You Currently In School? No [id number] Information not available 11/02/2022 Do You Have Any Dietary Restrictions? No [id number] [id number] Information not available 11/02/2022 Sex: Unknown Functional Status Question Answer Note LastModified by Organizat ion Details LastModified Time Do you use any illicit or recreational drugs? No [id number] Information not available 11/02/2022 Do you or have you ever used any other forms of tobacco or nicotine? No [id number] Information not available 11/02/2022 What is your level of alcohol consumption? None [id number] Information not available 11/02/2022 Are you currently employed? No [email or web address] Information not available 01/16/2024 Have you been exposed to chemicals or toxins? not that aware of Information not available 01/01/2025 Do you have transportation difficulties? No [email or web address] Information not available 12/06/2023 Are you able to walk? YESASSIST wheeled walker Information not available 11/06/2023 Do you have difficulty doing errands alone? Yes [email or web address] Information not available 12/06/2023 Are you able to care for yourself? No has caregiver that comes 9 hours/week [email or web address] Information not available 01/16/2024 Do you have difficulty dressing or bathing? No Information not available 11/06/2023 What is your exercise level? Occasional started doing exercises in chair 1 week ago & walks around house [email or web address] Information not available 01/16/2024 Mental Status Question Answer Note LastModified by Organizat ion Details LastModified Time Do you feel stressed (tense, restless, nervous, or anxious, or unable to sleep at night)? [id number] pt's s.o has chronic health problems and is reluctant to going to get care. This is making pt nervous. [email or web address] Information not available 02/26/2024 Do you have difficulty concentrating, remembering or making decisions? No [email or web address] Information not available 01/16/2024 Family History Relationship Description Onset Age of this Age Resolved Age Notes LastModified by Organization Details LastModified Time Mother Diabetes mellitus [id number] Not available 11/02/2022 09:27:03 Mother Heart disease [id number] Not available 11/02/2022 09:27:03 Father Hypertensive disorder [id number] Not available 11/02/2022 09:27:03 Father Cerebrovascu lar accident [email or web address] Not available 16:07:31 Paternal Uncle Heart disease [email or web address] Not available 2023 16:07:52 Brother Heart disease [email or web address] Not available 2023 16:07:56 Maternal Aunt Malignant neoplasm of lung [email or web address] Not available 2023 16:08:20 Son Bipolar disorder [email or web address] Not available 2023 16:08:56 Medical History Condition Response ARTHRITIS Y ADDICTION CONCERNS N BLINDNESS N BLADDER PROBLEMS N APPENDICITIS N CHICKENPOX Y ALLERGIES/HAYFEVER N BACK INJECTIONS N BAD TEETH Y HISTORY OF DRUG ABUSE N GI Y BLOOD DISEASES N BLOOD CLOTS N EDEMA Y AUTISM SPECTRUM DISORDER (ASD) N EAR OR HEARING PROBLEMS N ASTHMA N Abdominal Pain N ALZHEIMER'S DISEASE N DEPRESSION (INCLUDING POST ) Y BOWEL PROBLEMS Y BACK / NECK PROBLEMS N HAVE YOU BEEN HOSPITALIZED OR SEEN IN [facility] IN THE PAST YEAR ? Y Brain Problems N ARTERIAL INSUFFICIENCY N ATHEROSCLEROSIS N HEADACHES/MIGRAINES Y BREAST PROBLEMS N AIDS/HIV N CARDIAC ARRHYTHMIA Y CANCER: SPECIFY N ANXIETY DISORDER Y BLOOD TRANSFUSION Y ANEMIA/BLOOD DISORDER Y ATRIAL FIBRILLATION Y ANEURYSM N AUTOIMMUNE DISEASE N Do you have Advance directive? N Gynecological History Statement/Question Response How many live births 1 If Post Menopausal, Age at Menopause Date of Last Colonoscopy Date of Last Mammogram Date of LMP Sexually Active? N Date of Last Pap Current Control Method Tubal Ligat ion Obstetrics History GPAL:G 1 P 1 0 0 1 Type Value Multiple Births 0 Full Term 1 Induced 0 Spontaneous 0 Premature 0 Living 1 Ectopics 0 Total 1 Immunizations Vaccine Type Date Status Note Provider Will monroe and Address Organization Details Recorded Time Influenza, split virus, quadrivalent, preservative 8 completed [place] [facility] [place] [employer] 02/28/2023 16:18:39 Influenza, split virus, quadrivalent, preservative 9 completed Jaclynher Huizar [facility] 02/28/2023 16:18:39 zoster recombinant 8 completed [facility] 02/28/2023 16:18:39 Influenza, high-dose, quadrivalent, PF 0 completed [facility] 02/28/2023 16:18:39 Influenza, high-dose, quadrivalent, PF 2 completed [facility] 02/28/2023 16:18:39 Influenza, high-dose, quadrivalent, PF 1 completed [facility] 02/28/2023 16:18:39 COVID-19, mRNA, LNP-S, PF, 100 mcg/0.5mL dose or 50 mcg/0.25mL dose 1 completed Jaclyn Bhupendra [facility] 02/28/2023 16:18:39 COVID-19, mRNA, LNP-S, PF, 100 mcg/0.5mL dose or 50 mcg/0.25mL dose 1 completed [facility] 02/28/2023 16:18:39 COVID-19, mRNA, LNP-S, PF, 100 mcg/0.5mL dose or 50 mcg/0.25mL dose 2 completed Jaclyn Bhupendra [facility] 02/28/2023 16:18:39 COVID-19, mRNA, LNP-S, PF, 100 mcg/0.5mL dose or 50 mcg/0.25mL dose 1 completed [facility] 02/28/2023 16:18:39 COVID-19, mRNA, LNP-S, bivalent, PF, 30 mcg/0.3 mL dose 2 completed [facility] 02/28/2023 16:18:39 pneumococcal polysaccharide PPV23 6 completed [facility] 02/28/2023 16:18:39 Pneumococcal conjugate PCV 13 8 completed [place] [facility] 02/28/2023 16:18:39 Influenza, high-dose, trivalent, PF 6 completed [facility] [facility] 02/28/2023 16:18:39 Influenza, high-dose, trivalent, PF 9 completed [facility] [place] [facility] 02/28/2023 16:18:39 Influenza, high-dose, trivalent, PF 7 completed [facility] 02/28/2023 16:18:39 Influenza, split virus, trivalent, preservative 4 completed [facility] 02/28/2023 16:18:39 Influenza, split virus, trivalent, PF 5 completed [facility] 02/28/2023 16:18:39 Influenza, high-dose, quadrivalent, PF 3 completed [facility] Kimbrough [facility] 09/16/2024 14:07:35 COVID-19, mRNA, LNP-S, PF, 50 mcg/0.5 mL 4 completed Susana Kimbrough RMA null, [facility] 09/16/2024 14:07:35 COVID-19, mRNA, LNP-S, PF, 50 mcg/0.5 mL 3 completed Susana Kimbrough RMA null, [facility] 09/16/2024 14:07:35 Influenza, high-dose, trivalent, PF 4 completed [facility] 09/16/2024 14:07:35 Past Encounters Encounter ID Performer Location Encounter Start Date Encounter Closed Date Diagnosis/Indication Diagnosis SNOMED-CT Code Diagnosis ICD10 Code Diagnosis Note [id number] Lana Tovar MD [facility] Primary [facility] [place] [address] [place] [address] 01/11/2021 00:00:00 01/20/2021 09:33:59 [id number] Lana Tovar MD [facility] Primary [facility] [place] [address] [place] [address] 01/26/2021 00:00:00 01/26/2021 10:59:18 [id number] Lana Tovar MD [facility] Primary [facility] [place] [address] [place] [address] 02/10/2021 00:00:00 03/03/2021 09:55:56 [id number] Lana Tovar MD [facility] Primary Care [place] [address] [place] [address] 02/17/2021 00:00:00 02/17/2021 13:19:19 [id number] Lana Tovar MD [facility] Primary Care [place] [address] [place] [address] 02/24/2021 00:00:00 03/02/2021 13:52:08 [id number] Lana Tovar MD [facility] Primary Care [place] [address] [place] [address] 04/20/2021 00:00:00 05/03/2021 19:35:15 [id number] Lana Tovar MD [facility] Primary Care [place] [address] [place] [address] 05/06/2021 00:00:00 05/06/2021 21:08:51 [id number] Lana Tovar MD [facility] Primary Care [place] [address] [place] [address] 06/09/2021 00:00:00 06/09/2021 10:51:15 [id number] Lana Tovar MD [facility] Primary Care [place] [address] [place] [address] 09/29/2021 00:00:00 09/29/2021 13:17:41 [id number] Lana Tovar MD [facility] Primary Care [place] [address] [place] [address] 01/05/2022 00:00:00 01/28/2022 13:08:49 [id number] Lana Tovar MD [facility] Primary Care [place] [address] [place] [address] 01/19/2022 00:00:00 02/01/2022 08:13:46 [id number] Lana Tovar MD [facility] Primary Care [place] [address] [place] [address] 02/02/2022 00:00:00 03/01/2022 14:05:51 [id number] [facility] [place] [address] [facility] [address] [place] [address] 02/14/2022 00:00:00 02/15/2022 11:15:58 [id number] Lana Tovar MD [facility] Primary Care [place] [address] [place] [address] 03/15/2022 00:00:00 04/01/2022 13:22:41 [id number] Lana Tovar MD [facility] Primary Care [place] [address] [place] [address] 04/25/2022 00:00:00 04/25/2022 09:40:17 [id number] MIKE Linder [facility] Primary Care [place] [address] [place] [address] 05/30/2022 00:00:00 05/30/2022 12:27:10 [id number] Lana Tovar MD [facility] Primary Care [place] [address] [place] [address] 08/10/2022 00:00:00 09/01/2022 11:27:36 [id number] MIKE Linder [facility] Primary Care [address] [place] [address] 11/18/2022 10:40:48 11/18/2022 11:55:25 Cough 80704111 R05.9 Pt. very congested with a wheezing cough. Covid negative.A dvised to take medication s as directed. Can continue otc medication s as needed.If no improvemen t over next 1-2 weeks will evaluate with CXR. [id number] MIKE Linder [facility] Primary Care [address] [place] [address] 12/28/2022 11:41:11 12/28/2022 12:36:50 Long-term current use of anticoagulant 497461025 Z79.01 Currently on Warfarin 3mg daily. Bilateral cramp of muscle of lower limbs [id number] 8145871 R25.2 She states she has had symptoms for the last 1-2 weeks. No swelling/r edness. No pain during visit.Most likely benign muscle cramps.Esa l check labs today. Hypothyroidism 62277333 E03.9 Vitamin D deficiency 347 96240 E55.9 Renal mass 776741550 N28 .89 MRI scheduled for February. Cobalamin deficiency 190 527228 E53.8 [id number] Lana Tovar MD [facility] Primary Care [address] [place] [address] 02/20/2023 15:13:05 02/20/2023 15:49:01 Essential hypertension 19871223 I10 Long-term current use of anticoagulant 846640081 Z79.01 Vitamin D deficiency 347 64317 E55.9 Hypothyroidism 49398113 E03.9 Cobalamin deficiency 190 349186 E53.8 [id number] Lana Tovar MD [facility] Primary Care [address] [place] [address] 02/23/2023 15:44:37 02/23/2023 16:52:15 Long-term current use of anticoagulant 128869208 Z79.01 [id number] Lana Tovar MD [facility] Primary Care [facility] [address] [facility] [address] [place] [address] 03/28/2023 15:59:26 03/28/2023 16:16:31 [id number] JUAN LUIS [facility] [address] [facility] [address] [place] [address] 04/10/2023 16:00:52 04/10/2023 17:07:19 Dizziness 485395826 R42 Has been an issue as long as she has been taking the carvedilol (not as prescribed )Will give trial meclizine Malaise and fatigue 2717 63585 R53.81 Pt was taking carvedilol 25mg BID when she was supposed to be taking 12.5mg BIDNotes no swelling in her ankles-BP seems to be stable currentlyW ill hold off on starting lasix at this time.Educa misti to take 1/2 tab of carvedilol in the morning and 1/2 tab in the evening [id number] Roque holden MD [facility] Internal Med [facility] [address] [facility] [place] [address] 11/06/2023 11:49:23 11/06/2023 12:47:14 Screening - NAD 974037812 Z13.9 C-scope: Get this if not done, denies any complaints , states that she does not want any more tests, understand s the risks for CRC Mammogram: Get thisDEXA: On alendronat e, get thisWWE: Get this done Get yearly fluGet tdap if not doneUTD on PCVGet shingrixGe t RSV vaccineGet COVID 19 vaccine and its boosters RTC in 3 months, do labs, ER if worse, she did verbalize her understand ing of the above Essential hypertension 51068804 I10 On coreg 12.5mg bidOn entresto 49-51mg bidOn spironolac tone 25mg daily Hypothyroidism 45216925 E03.9 On levothyrox ine 150mcgs dailyGet labs Persistent insomnia 1919 00148 G47.[address] traz[address]oneG iven [address] Dr Amaya Moderate r ecurrent major depression 80057859 F33.1 On clonazepam 0.5mg tidOn venlafaxin e ER 37.5mg dailyOn vralar 1.5m daily Nonischemi c congestive cardiomyopathy 5609894359 [address] Ceja cardiology , last OV 08/10/2023 , f/u in 3 monthsS/p life vest /p ICD in [place] BapStarted on entresto, amiodarone On amiodarone 200mg 2 tabs daily, should be taking 200mg daily as per Dr Ceja cardiologi st note 08/10/2023 , MA did call Dr Ceja' s office and confirmed she should be on one tablet, this was conveyed to Jessica coreg 12.5mg bidOn entresto 49-51mg bidOn spironolac tone 25mg dailyOn coumadin 1mg dailly, INR is 1.0 11/06/2023 , will increase the coumadin to 2mg daily and RTC in one week for INr Screening mammography 24 618272 Z12.31 Screening for osteoporosis 009200727 Z13.820 Gynecologi c examination 36608578 Z01.419 Serum betty min B12 below reference range 767427192 R79.89 On b12, get labs [id number] Roque holden MD [facility] Internal Med [place] [address] [facility] , [place] [address] 12/06/2023 13:58:41 12/06/2023 14:47:31 Adult health examination 277354422 Z00.00 Screening for disorder 095108063 Z13.9 Anticoagulant therapy 18 4135068 Z79.01 Screening - NAD 94310881 3 Z13.9 C-scope: Get this if not done, denies any complaints , states that she does not want any more tests, understand s the risks for CRC Mammogram: Get thisDEXA: On alendronat e, get thisWWE: Get this done Get yearly fluGet tdap if not doneUTD on PCVGet shingrixGe t RSV vaccineGet COVID 19 vaccine and its boosters RTC in 1 months, do labs, ER if worse, she did verbalize her understand ing of the above Essential hypertension 27311889 I10 On amiodarone 200mg dailyOn coreg 12.5mg bidOn entresto 49-51mg bidOn spironolac tone 25mg daily Hypothyroidism 67277136 E03.9 On levothyrox ine 150mcgs dailyGet labs Persistent insomnia 1919 46707 G47.09 On trazodoneG iven by Dr Amaya Moderate r ecurrent major depression 56229348 F33.1 On clonazepam 0.5mg tidOn venlafaxin e ER 37.5mg dailyOn vralar 1.5m daily Nonischemi c congestive cardiomyopathy 4031972776 [address] Ceja cardiology , last OV 08/10/2023 , f/u in 3 monthsS/p life vest /p ICD in [place] BapStarted on entresto, amiodarone On amiodarone 200mg 2 tabs daily, should be taking 200mg daily as per Dr Ceja cardiologi st note 08/10/2023 , MA did call Dr Ceja' s office and confirmed she should be on one tablet, this was conveyed to Jessica coreg 12.5mg bidOn entresto 49-51mg bidOn spironolac tone 25mg dailyOn coumadin 1mg dailly, INR is 1.0 11/06/2023 , will increase the coumadin to 2mg daily and RTC in one week for INr Screening mammography 24 102677 Z12.31 Screening for osteoporosis 708810844 Z13.820 Gynecologi c examination 54557391 Z01.419 Serum betty min B12 below reference range 597860950 R79.89 On b12, get labs Abdominal pain 43568036 R10.[address] abd donePrior hx of surgery to the abdomen, she is not very sure why she had to have surgeryMay need to see GI [id number] Roque holden MD [facility] Internal [facility] [place] [facility] [address] , [place] [address] 12/13/2023 14:10:26 12/13/2023 15:22:58 Screening - NAD 509565389 Z13.9 C-scope: Get this if not done, denies any complaints , states that she does not want any more tests, understand s the risks for CRC Mammogram: 12/13/2023 : NegDEXA: 12/13/2023 : OP: On alendronat e, get thisWWE: Get this done Get yearly fluGet tdap if not doneUTD on PCVGet shingrixGe t RSV vaccineGet COVID 19 vaccine and its boosters RTC in 1 month, do labs, ER if worse, she and Pippa did verbalize her understand ing of the above Essential hypertension 16516197 I10 On amiodarone 200mg dailyOn coreg 12.5mg bidOn entresto 49-51mg bid, renewed 12/13/2023 On spironolac tone 25mg daily Hypothyroidism 28223034 E03.9 On levothyrox ine 150mcgs dailyGet labs Persistent insomnia 1919 54774 G47.09 On trazodoneG iven by Dr Amaya Moderate r ecurrent major depression 18031973 F33.1 On clonazepam 0.5mg tidOn venlafaxin e ER 37.5mg dailyOn vralar 1.5m daily Nonischemi c congestive cardiomyopathy 1735607426 [address] Ceja cardiology , last OV 08/10/2023 , f/u in 3 monthsS/p life vest 1S/p ICD in [place] BapStarted on entresto, amiodarone On amiodarone 200mg 2 tabs daily, should be taking 200mg daily as per Dr Ceja cardiologi st note 08/10/2023 , MA did call Dr Ceja' s office and confirmed she should be on one tablet, this was conveyed to Jessica coreg 12.5mg bidOn entresto 49-51mg bidOn spironolac tone 25mg dailyOn coumadin Gynecologi c examination 50292420 Z01.419 Serum betty min B12 below reference range 429052567 R79.89 On b12, get labs Abdominal pain 46212320 R10.[address] abd donePrior hx of surgery to the abdomen, she is not very sure why she had to have surgeryMay need to see GI CT A/P: 12/13/2023 : Hiatal hernia, needs to see GI Hiatal hernia 69797589 K 44.9 CT A/P: 12/13/2023 : Hiatal hernia, needs to see GI Dizziness 372066699 R42 [facility] ERXR Chest 12/08/2023 S/p CTA 12/08/2023 Lung nodules noted Multiple n odules of lung 310139031 R91.8 CTA 12[facility] [facility] [facility] [address] [facility] and see pulmonary Mass of neck 659535083 R 22.1 Fullness noted in the yordy supraclavi cular areaS/P CTA done 12/08/2023 Get US neck and she now will see Dr Gannon her cardiologi st [id number] Roque holden MD [facility] Internal Med [place] [address] [facility] [place] [address] 01/08/2024 11:22:08 01/08/2024 12:06:29 Screening - NAD 902033298 Z13.9 C-scope: Get this if not done, denies any complaints , states that she does not want any more tests, understand s the risks for CRCDid see GI Dr Fairchild 12/18/2023 , no need for C-scope till her 10 year helena, needs to do EGD Mammogram: 12/13/2023 : NegDEXA: 12/13/2023 : OP: On alendronat e, knows how to take this medicineWW E: Get this done Get yearly fluGet tdap if not doneUTD on PCVGet shingrixGe t RSV vaccineGet COVID 19 vaccine and its boosters RTC in 1 month, do labs, ER if worse, she and Claudette did verbalize her understand ing of the above Essential hypertension 44538908 I10 On amiodarone 200mg dailyOn coreg 12.5mg bid, advised to not take the 25mg 1/2 tab bid dose 01/08/2024 On entresto 49-51mg bid, renewed 12/13/2023 On spironolac tone 25mg daily Hypothyroidism 97478902 E03.9 On levothyrox ine 150mcgs dailyGet labs Persistent insomnia 1919 12884 G47.09 On trazodoneG iven by Dr Jose Luis Moderate r ecurrent major depression 19758240 F33.1 On clonazepam 0.5mg tidOn venlafaxin e ER 37.5mg dailyOn vralar 1.5m dailySees Dr Amaya, not suicidal or homicidal Nonischemi c congestive cardiomyopathy 8505905158 [address] Ceja cardiology , last OV 08/10/2023 , f/u in 3 monthsS/p life vest /p ICD in [place] BapStarted on entresto, amiodarone On amiodarone 200mg 2 tabs daily, should be taking 200mg daily as per Dr Ceja cardiologi st note 08/10/2023 , MA did call Dr Ceja' s office and confirmed she should be on one tablet, this was conveyed to Jessica coreg 12.5mg bidOn entresto 49-51mg bidOn spironolac tone 25mg dailyOn coumadin D/c from [facility] 01/03/2024 for SOB, acute respirator y failure with hypercapni a, d/t not taking her diuretic as she was gone on a road trip, d/c as next day was on RA, did see cardiology 01/02/[address] note her BNP was 3660, Rx with IV lasixShe does need 24 hour care or more nursing care, she is here with her CG Claudette Gynecologi c examination 46337678 Z01.419 Serum betty min B12 below reference range 209206360 R79.89 On b12, get labs Abdominal pain 66358435 R10.[address] abd donePrior hx of surgery to the abdomen, she is not very sure why she had to have surgeryMay need to see GI CT A/P: 12/13/2023 : Hiatal hernia, needs to see Timothy Fairchild GI: To get EGD, take PPI an dfamotidin e, take OTC [id number] mg PRN for bloating, may need a course of xifaxan Hiatal hernia 46768177 K 44.9 CT A/P: 12/13/2023 : Hiatal hernia, needs to see GIToday 01/08/2024 , states that she is to get the EGD this Monday Dizziness 075269433 R42 [facility] ERXR Chest 12/08/2023 S/p CTA 12/08/2023 Lung nodules noted Multiple n odules of lung 517567340 R91.8 CTA 12/08/2023 at [facility] get CT chest and see pulmonary Mass of neck 737271626 R 22.1 Fullness noted in the yordy supraclavi cular areaS/P CTA done 12/08/2023 Get US neck and she now will see Dr Gannon her cardiologi st [id number] Roque holden MD [facility] Internal Med [place] [address] [place] [address] [place] [address] 01/16/2024 17:11:21 05/09/2024 11:39:35 Nonischemic congestive cardiomyopathy 2734149948 04 I42.0 Moderate r ecurrent major depression 91873694 F33.1 Osteoarthr itis of knee 614021314 M17.9 [id number] Roque holden MD [facility] Internal Med [address] [place] [address] 02/26/2024 13:42:40 05/22/2024 11:15:01 Nonischemic congestive cardiomyopathy 7466533436 04 I42.0 Essential hypertension 17784154 I10 [id number] Loreta Haque MD [facility] Pulmonolo gy [address] [place] [address] 03/20/2024 15:22:21 03/21/2024 08:27:20 Dyspnea on exertion 52673869 R06.09 R05.9 T78.40XA D89.9 Multiple n odules of lung 347725766 R91.8 [id number] Roque holden MD [facility] Internal [facility] [address] [place] [address] [place] [address] 04/17/2024 18:28:30 06/03/2024 19:29:01 Dyspnea on exertion 58247752 R06.09 R05.9 T78.40XA D89.9 Moderate r ecurrent major depression 82641857 F33.1 Essential hypertension 97144299 I10 [id number] Roque holden MD [facility] Internal Med [place] [address] [facility] [place] [address] 06/12/2024 14:13:38 06/12/2024 15:19:26 Screening - NAD 533400171 Z13.9 C-scope: Get this if not done, denies any complaints , states that she does not want any more tests, understand s the risks for CRCDid see GI Dr Fairchild 12/18/2023 , no need for C-scope till her 10 year markEGD 01/10/[address] Fairchild Mammogram: 12/13/2023 : Neg DEXA: 12/13/2023 : OP: On alendronat e, knows how to take this medicine WWE: Get this done Get yearly fluGet tdap if not doneUTD on PCVGet shingrixGe t RSV vaccineGet COVID 19 vaccine and its boosters RTC in 3 months, do labs, ER if worse, she and Claudette did verbalize her understand ing of the above Essential hypertension 10747239 I10 On amiodarone 200mg dailyOn coreg 25mg bid, advised to not take the 25mg 1/2 tab bid dose 01/08/2024 On entresto 49-51mg bid, now should be on 24/[address] Ceja 06/07/2024 On spironolac tone 25mg daily Hypothyroidism 65864696 E03.9 On levothyrox ine 150mcgs daily,misael wedGet labs Persistent insomnia 1919 44060 G47.09 On trazodoneG iven by Dr Amaya Moderate r ecurrent major depression 08482728 F33.1 On clonazepam 0.5mg tidOn venlafaxin e ER 37.5mg dailyOn vraylar 1.5m dailySees Dr Amaya, not suicidal or homicidal Nonischemi c congestive cardiomyopathy 8405172982 [address] Ceja cardiology , last OV 08/10/2023 , f/u in 3 monthsS/p life vest /p ICD in [place] BapStarted on entresto, amiodarone On amiodarone 200mg 2 tabs daily, should be taking 200mg daily as per Dr Ceja cardiologi st note 08/10/2023 , MA did call Dr Ceja' s office and confirmed she should be on one tablet, this was conveyed to Jessica coreg 12.5mg bidOn entresto 49-51mg bidOn spironolac tone 25mg dailyOn coumadin D/c from [facility] 01/03/2024 for SOB, acute respirator y failure with hypercapni a, d/t not taking her diuretic as she was gone on a road trip, d/c as next day was on RA, did see cardiology 01/02/[address] note her BNP was 3660, Rx with IV lasixShe does need 24 hour care or more nursing care, she is here with her CG Claudette OV 06/12/2024 :Hx of ventricula r tachycardi a, on coumadin as per cardiology noteINR: 8.0Advised to not take coumadin and repeat the INR on MondayDr Ceja 06/07/2024 cardiology , entresto decreased, f/u in 3 months Gynecologi c examination 90216296 Z01.419 Serum betty min B12 below reference range 722397028 R79.89 On b12, get labs Abdominal pain 15118448 R10.[address] abd donePrior hx of surgery to the abdomen, she is not very sure why she had to have surgeryMay need to see GI CT A/P: 12/13/2023 : Hiatal hernia, needs to see Timothy Fairchild GI: To get EGD, take PPI an dfamotidin e, take OTC [id number] mg PRN for bloating, may need a course of xifaxan EGD 01/10/2024 : Dr Fairchild Hiatal hernia 06941665 K 44.9 CT A/P: 12/13/2023 : Hiatal hernia, needs to see GI S/p EGD 01/10/2024 Dizziness 301461700 R42 [facility] ERXR Chest 12/08/2023 S/p CTA 12/08/2023 Lung nodules noted Multiple n odules of lung 827433976 R91.8 CTA 12/08[facility] 04/22/[facility] : NegDr Shabnam 03/20/2024 Mass of neck 131525334 R 22.1 Fullness noted in the yordy supraclavi cular areaS/P CTA done 12/08/2023 Get US neck and she now will see Dr Gannon her cardiologi st US neck 04/22/2024 : Benign Dental caries 46114127 K 02.9 Dental caries noted on the upper teethDo not take the fosamax 2 weeks prior to dental procedures !Get on augmentin as per requestRef er to dental surgeon as per her requestWil l have to discuss with her cardiologi st regarding use of coumadin [id number] Roque holden MD [facility] [address] [facility] [address] [place] [address] 09/16/2024 13:57:07 09/16/2024 14:42:29 Screening - NAD [id number] Z13.9 C-scope: Get this if not done, denies any complaints , states that she does not want any more tests, understand s the risks for CRCDid see GI Dr Fairchild 12/18/2023 , no need for C-scope till her 10 year markEGD 01/10/[address] Fairchild Mammogram: 12/13/2023 : Neg DEXA: 12/13/2023 : OP: On alendronat e, knows how to take this medicine WWE: Get this done Get yearly fluGet tdap if not doneUTD on PCVGet shingrixGe t RSV vaccineGet COVID 19 vaccine and its boosters RTC in 23 months, do labs, ER if worse, she and Pippa did verbalize her understand ing of the above Essential hypertension 56894254 I10 On amiodarone 200mg dailyOn coreg 25mg bid 1/[address] Elana porras entresto 49-51mg bid, now should be on 24/ bid as per Dr Ceja 06/07/2024 On spironolac tone 25mg dailyOn K Hypothyroidism 51085839 E03.9 On levothyrox ine 150mcgs daily,misael wedGet labs Persistent insomnia 1919 48982 G47.09 On trazodone 150mg 1.[address] Jose Luis Moderate r ecurrent major depression 90126306 F33.1 On clonazepam 0.5mg tidOn venlafaxin e ER 37.5mg dailyOn vraylar 1.5m dailySees Dr Amaya, not suicidal or homicidal Nonischemi c congestive cardiomyopathy [id number] [address] Ceja cardiology , last OV 08/10/2023 , f/u in 3 monthsS/p life vest /p ICD in [place] BapStarted on entresto, amiodarone On amiodarone 200mg 2 tabs daily, should be taking 200mg daily as per Dr Ceja cardiologi st note 08/10/2023 , MA did call Dr Ceja' s office and confirmed she should be on one tablet, this was conveyed to Jessica coreg 12.5mg bidOn entresto 49-51mg bidOn spironolac tone 25mg dailyOn coumadin D/c from [facility] 01/03/2024 for SOB, acute respirator y failure with hypercapni a, d/t not taking her diuretic as she was gone on a road trip, d/c as next day was on RA, did see cardiology 01/02/[address] note her BNP was 3660, Rx with IV lasixShe does need 24 hour care or more nursing care, she is here with her CG Claudette OV 06/12/2024 :Hx of ventricula r tachycardi a, on coumadin as per cardiology noteINR: 8.0Advised to not take coumadin and repeat the INR on MondayDr Ceja 06/07/2024 cardiology , entresto decreased, f/u in 3 months OV 09/16/2024 :Needs to keep apt with her cardiologi st Gynecologi c examination 88983065 Z01.419 Serum betty min B12 below reference range 257232686 R79.89 On b12, get labs Abdominal pain 28263003 R10.[address] abd donePrior hx of surgery to the abdomen, she is not very sure why she had to have surgeryMay need to see GI CT A/P: 12/13/2023 : Hiatal hernia, needs to see Timothy Fairchild GI: To get EGD, take PPI an dfamotidin e, take OTC [id number] mg PRN for bloating, may need a course of xifaxan EGD 01/10/2024 : Dr Fairchild Hiatal hernia 17980498 K 44.9 CT A/P: 12/13/2023 : Hiatal hernia, needs to see GI S/p EGD 01/10/2024 Dizziness 581031828 R42 [facility] ERXR Chest 12/08/2023 S/p CTA 12/08/2023 Lung nodules noted Multiple n odules of lung 177725518 R91.8 CTA 12[facility]08[facility] 04/[facility] : NegDr Haque 03/20/2024 Mass of neck 172315630 R 22.1 Fullness noted in the yordy supraclavi cular areaS/P CTA done 12/08/2023 Get US neck and she now will see Dr Gannon her cardiologi st US neck 04/22/2024 : Benign Dental caries 21952328 K 02.9 Dental caries noted on the upper teethDo not take the fosamax 2 weeks prior to dental procedures !Get on augmentin as per requestRef er to dental surgeon as per her requestWil l have to discuss with her cardiologi st regarding use of coumadin OV 09/16/2024 : Now states that she has 'pulled out all' the teeth, does well Pain of ri ght hip joint [id number] 43521 M25.551 S/p fallSeen in the UC, treated with gabapentin and flexerill, not taking at this timeGet on MDP, get Xrays and refer to Dr Prince as she does not want to be treated in [facility] Tear of skin 267686920 T 14.8XXA L forearmHea ling, no bleeding noted, no swelling or redness, advised to keep area clean and dry [id number] Roque holden MD [facility] [address] [facility] [address] [place] [address] 10/14/2024 14:46:11 10/14/2024 16:10:33 Screening - NAD 205321385 Z13.9 C-scope: Get this if not done, denies any complaints , states that she does not want any more tests, understand s the risks for CRCDid see GI Dr Fairchild 12/18/2023 , no need for C-scope till her 10 year markEGD 01/10/[address] Fairchild Mammogram: 12/13/2023 : Neg DEXA: 12/13/2023 : OP: On alendronat e, knows how to take this medicine WWE: Get this done Get yearly fluGet tdap if not doneUTD on PCVGet shingrixGe t RSV vaccineGet COVID 19 vaccine and its boosters RTC in 23 months, do labs, ER if worse, she and Pippa did verbalize her understand ing of the above Essential hypertension 73176537 I10 On amiodarone 200mg dailyOn coreg 25mg daily Dr Huitron n entresto 49-51mg bid, now should be on bid as per Dr Ceja 06/07/2024 On spironolac tone 25mg dailyOn KSees Dr Gannon Hypothyroidism 64408123 E03.9 On levothyrox ine 150mcgs daily,misael wedGet labs Persistent insomnia 1919 52529 G47.09 On trazodone 150mg 1.[address] Amaya Moderate r ecurrent major depression 28732580 F33.1 On clonazepam 0.5mg tidOn venlafaxin e ER 37.5mg dailyOn vraylar 1.5m dailySees Dr Amaya, not suicidal or homicidal Nonischemi c congestive cardiomyopathy 8447492179 [address] Ceja cardiology , last OV 08/10/2023 , f/u in 3 monthsS/p life vest /p ICD in [place] BapStarted on entresto, amiodarone On amiodarone 200mg 2 tabs daily, should be taking 200mg daily as per Dr Ceja cardiologi st note 08/10/2023 , MA did call Dr Ceja' s office and confirmed she should be on one tablet, this was conveyed to Jessica coreg 12.5mg bidOn entresto 49-51mg bidOn spironolac tone 25mg dailyOn coumadin D/c from [facility] 01/03/2024 for SOB, acute respirator y failure with hypercapni a, d/t not taking her diuretic as she was gone on a road trip, d/c as next day was on RA, did see cardiology 01/02/[address] note her BNP was 3660, Rx with IV lasixShe does need 24 hour care or more nursing care, she is here with her CG Claudette OV 06/12/2024 :Hx of ventricula r tachycardi a, on coumadin as per cardiology noteINR: 8.0Advised to not take coumadin and repeat the INR on MondayDr Ceja 06/07/2024 cardiology , entresto decreased, f/u in 3 months OV 09/16/2024 :Needs to keep apt with her cardiologi st OV 10/14/2024 :Dr Ceja 09/17/2024 , f/u in 6 months Gynecologi c examination 58941113 Z01.419 Serum betty min B12 below reference range 322389868 R79.89 On b12, get labs Abdominal pain 37031816 R10.[address] abd donePrior hx of surgery to the abdomen, she is not very sure why she had to have surgeryMay need to see GI CT A/P: 12/13/2023 : Hiatal hernia, needs to see Timothy Fairchild GI: To get EGD, take PPI an dfamotidin e, take OTC [id number] mg PRN for bloating, may need a course of xifaxan EGD 01/10/2024 : Dr Fairchild Hiatal hernia 36241133 K 44.9 CT A/P: 12/13/2023 : Hiatal hernia, needs to see GI S/p EGD 01/10/2024 Dizziness 409659394 R42 [facility] ERXR Chest 12/08/2023 S/p CTA 12/08/2023 Lung nodules noted Multiple n odules of lung 493386944 R91.8 CTA 12[facility] 04/[facility] : Law Haque 03/20/2024 Mass of neck 509091180 R 22.1 Fullness noted in the yordy supraclavi cular areaS/P CTA done 12/08/2023 Get US neck and she now will see Dr Gannon her cardiologi st US neck 04/22/2024 : Benign Dental caries 43372057 K 02.9 Dental caries noted on the upper teethDo not take the fosamax 2 weeks prior to dental procedures !Get on augmentin as per requestRef er to dental surgeon as per her requestEsa blanc have to discuss with her cardiologi st regarding use of coumadin OV 09/16/2024 : Now states that she has 'pulled out all' the teeth, does well Pain of ri ght hip joint 2793007621 71594 M25.551 S/p fallSeen in the UC, treated with gabapentin and flexerill, not taking at this timeGet on MDP, get Xrays and refer to Dr Prince as she does not want to be treated in [facility] OV 10/14/2024 :Xr hip: 09/16/2024 : Neg Tear of skin 145326392 T 14.8XXA L forearmHea ling, no bleeding noted, no swelling or redness, advised to keep area clean and dry Chronic ki dney disease 988136217 N18.9 Get a referral to nephrology Hyperkalemia 77724054 E8 7.5 Repeat the K [id number] Roque holden MD [facility] [address] [facility] [address] [place] [address] 11/18/2024 10:13:18 11/18/2024 12:24:26 Screening - NAD 456075100 Z13.9 C-scope: Get this if not done, denies any complaints , states that she does not want any more tests, understand s the risks for CRCDid see GI Dr Fairchild 12/18/2023 , no need for C-scope till her 10 year markEGD 01/10/[address] Fairchild Mammogram: 12/13/2023 : Neg DEXA: 12/13/2023 : OP: On alendronat e, knows how to take this medicine WWE: Get this done Get yearly fluGet tdap if not doneUTD on PCVGet shingrixGe t RSV vaccineGet COVID 19 vaccine and its boosters RTC in 23 months, do labs, ER if worse, she and Pippa did verbalize her understand ing of the above Essential hypertension 62192022 I10 On amiodarone 200mg daily, understand s the side effects for this medication , including thyroid abnormalit iesOn coreg 25mg daily Dr Huitron n entresto 49-51mg bid, now should be on 24/ bid as per Dr Ceja 06/07/2024 On spironolac tone 25mg dailyOn KSees Dr Gannon Hypothyroidism 87351395 E03.9 On levothyrox ine 150mcgs daily,misael wedGet labs Persistent insomnia 1919 87240 G47.09 On trazodone 150mg 1.[address] Amaya Moderate r ecurrent major depression 91610054 F33.1 On clonazepam 0.5mg tidOn venlafaxin e ER 37.5mg dailyOn vraylar 1.5m dailySees Dr Amaya, not suicidal or homicidal Nonischemi c congestive cardiomyopathy 1694889858 [address] Ceja cardiology , last OV 08/10/2023 , f/u in 3 monthsS/p life vest /p ICD in [place] BapStarted on entresto, amiodarone On amiodarone 200mg 2 tabs daily, should be taking 200mg daily as per Dr Ceja cardiologi st note 08/10/2023 , MA did call Dr Ceja' s office and confirmed she should be on one tablet, this was conveyed to Jessica coreg 12.5mg bidOn entresto 49-51mg bidOn spironolac tone 25mg dailyOn coumadin D/c from [facility] 01/03/2024 for SOB, acute respirator y failure with hypercapni a, d/t not taking her diuretic as she was gone on a road trip, d/c as next day was on RA, did see cardiology 01/02/[address] note her BNP was 3660, Rx with IV lasixShe does need 24 hour care or more nursing care, she is here with her CG Claudette OV 06/12/2024 :Hx of ventricula r tachycardi a, on coumadin as per cardiology noteINR: 8.0Advised to not take coumadin and repeat the INR on MondayDr eCja 06/07/2024 cardiology , entresto decreased, f/u in 3 months OV 09/16/2024 :Needs to keep apt with her cardiologi st OV 10/14/2024 :Dr Ceja 09/17/2024 , f/u in 6 months OV 11/18/2024 : Sees her cardiologi st Dr GannonG et INR, [facility] she will come in tomorrow to [facility] in [place] Gynecologi c examination 35285372 Z01.419 Serum betty min B12 below reference range 203966572 R79.89 On b12, get labs Abdominal pain 83291392 R10.[address] abd donePrior hx of surgery to the abdomen, she is not very sure why she had to have surgeryMay need to see GI CT A/P: 12/13/2023 : Hiatal hernia, needs to see Timothy Fairchild GI: To get EGD, take PPI an dfamotidin e, take OTC [id number] mg PRN for bloating, may need a course of xifaxan EGD 01/10/2024 : Dr Fairchild Hiatal hernia 68609266 K 44.9 CT A/P: 12/13/2023 : Hiatal hernia, needs to see GI S/p EGD 01/10/2024 Dizziness 800727146 R42 [facility] ERXR Chest 12/08/2023 S/p CTA 12/08/2023 Lung nodules noted Multiple n odules of lung 478883479 R91.8 CTA 12/08[facility]2023 [facility] 04/22/[facility] : NegDr Shabnam 03/20/2024 Mass of neck 479344933 R 22.1 Fullness noted in the yordy supraclavi cular areaS/P CTA done 12/08/2023 Get US neck and she now will see Dr Gannon her cardiologi st US neck 04/22/2024 : Benign Dental caries 59448804 K 02.9 Dental caries noted on the upper teethDo not take the fosamax 2 weeks prior to dental procedures !Get on augmentin as per requestRef er to dental surgeon as per her requestWil l have to discuss with her cardiologi st regarding use of coumadin OV 09/16/2024 : Now states that she has 'pulled out all' the teeth, does well Pain of ri ght hip joint 4790510714 55512 M25.551 S/p fallSeen in the UC, treated with gabapentin and flexerill, not taking at this timeGet on MDP, get Xrays and refer to Dr Prince as she does not want to be treated in [facility] OV 10/14/2024 :Xr hip: 09/16/2024 : Neg Tear of skin 915001663 T 14.8XXA L forearmHea ling, no bleeding noted, no swelling or redness, advised to keep area clean and dry Chronic ki dney disease 874178780 N18.9 Get a referral to nephrology Hyperkalemia 78454113 E8 7.5 Repeat the CMP Nausea 183885283 R11.0 Is on chronic use of zofran, advised that there are severe side effects of such daily uses of this medication , including but not limited to [facility] complaints Explained to her and her son Pippa that she should also discuss with her psychiatri st if the medication s for her psychiatry conditions can cause nausea for eg Vaniar advised NOT to stop any medication s till she discusses this with her psychiatri Jorge Alexx states that her mother 'likes to doctor herself'Sh e should see her GI, s/p EGD done already, GI referral provided to her today 11/18/2024 Acute urin sherrill tract infection 469963550 N39.0 Unable to provide any urine for UAStart on amoxicilli n 500mg po tidNotify if not better Atrial fibrillation 4943 6004 I48.91 [id number] Loreta Haque MD [facility] [address] [place] [address] 01/01/2025 14:42:18 01/03/2025 12:15:30 Dyspnea on exertion 62076977 R06.09 R05.9 T78.40XA D89.9 Mild chron ic obstructive pulmonary disease 869327964 J44.9 [id number] Roque holden MD [facility] [address] [place] [address] 01/13/2025 14:26:53 01/13/2025 16:02:13 Screening - NAD 161295933 Z13.9 C-scope: Get this if not done, denies any complaints , states that she does not want any more tests, understand s the risks for CRCDid see GI Dr Fairchild 12/18/2023 , no need for C-scope till her 10 year markEGD 01/10/[address] Fairchild Mammogram: 12/13/2023 : Neg DEXA: 12/13/2023 : OP: On alendronat e, knows how to take this medicine WWE: Get this done Get yearly fluGet tdap if not doneUTD on PCVGet shingrixGe t RSV vaccineGet COVID 19 vaccine and its boosters RTC in 3 months, do labs, ER if worse, she and Marlene her CG did verbalize her understand ing of the above 45 minutes spent with her and her daughterDi scussed her anxiety and SOB, also to see her cardiology , told to come to [facility] for her INR Essential hypertension 50433905 I10 On amiodarone 200mg daily, understand s the side effects for this medication , including thyroid abnormalit iesOn coreg 25mg daily Dr Huitron n entresto bid as per Dr Ceja 06/07/2024 On lasixOn spironolac tone 25mg dailyOn KSees Dr Gannon as per her history 01/13/2025 , she does have an apt in 02/2025 Hypothyroidism 79136219 E03.9 On levothyrox ine 150mcgs daily,misael wedGet labs Persistent insomnia 1919 65445 G47.09 On trazodone 150mg 1.[address] Amaya Moderate r ecurrent major depression 06703748 F33.1 On clonazepam 0.5mg tidOn venlafaxin e ER 37.5mg dailyOn vraylar 1.5m dailySees Dr Aamya, not suicidal or homicidal Nonischemi c congestive cardiomyopathy 4502478175 [address] Ceja cardiology , last OV 08/10/2023 , f/u in 3 monthsS/p life vest 1S/p ICD in [place] BapStarted on entresto, amiodarone On amiodarone 200mg 2 tabs daily, should be taking 200mg daily as per Dr Ceja cardiologi st note 08/10/2023 , MA did call Dr Ceja' s office and confirmed she should be on one tablet, this was conveyed to Jessica coreg 12.5mg bidOn entresto 49-51mg bidOn spironolac tone 25mg dailyOn coumadin D/c from [facility] 01/03/2024 for SOB, acute respirator y failure with hypercapni a, d/t not taking her diuretic as she was gone on a road trip, d/c as next day was on RA, did see cardiology 01/02/[address] note her BNP was 3660, Rx with IV lasixShe does need 24 hour care or more nursing care, she is here with her CG Claudette OV 06/12/2024 :Hx of ventricula r tachycardi a, on coumadin as per cardiology noteINR: 8.0Advised to not take coumadin and repeat the INR on MondayDr Ceja 06/07/2024 cardiology , entresto decreased, f/u in 3 months OV 09/16/2024 :Needs to keep apt with her cardiologi st OV 10/14/2024 :Dr Ceja 09/17/2024 , f/u in 6 months OV 11/18/2024 : Sees her cardiologi st Dr Jackson et INR, since the INR machine not in [facility] office she will come in tomorrow to [facility] in [place] OV 01/13/2025 : Get INR as scheduled, will come to [facility] on 01/15/2025 Gynecologi c examination 56837724 Z01.419 Serum betty min B12 below reference range 282168785 R79.89 On b12, get labs Abdominal pain 36086173 R10.[address] abd donePrior hx of surgery to the abdomen, she is not very sure why she had to have surgeryMay need to see GI CT A/P: 12/13/2023 : Hiatal hernia, needs to see Timothy Fairchild GI: To get EGD, take PPI an dfamotidin e, take OTC [id number] mg PRN for bloating, may need a course of xifaxan EGD 01/10/2024 : Dr Fairchild Hiatal hernia 00462882 K 44.9 CT A/P: 12/13/2023 : Hiatal hernia, needs to see GI S/p EGD 01/10/2024 Dizziness 481660008 R42 [facility] ERXR Chest 12/08/2023 S/p CTA 12/08/2023 Lung nodules noted Multiple n odules of lung 405296485 R91.8 CTA 12[facility] 04/[facility] : Law Haque 03/20/2024 Dr Haque 01/22/2025 next apt On albuterolS ee Dr Haque Mass of neck 153822519 R 22.1 Fullness noted in the yordy supraclavi cular areaS/P CTA done 12/08/2023 Get US neck and she now will see Dr Gannon her cardiologi st US neck 04/22/2024 : Benign Dental caries 42977617 K 02.9 Dental caries noted on the upper teethDo not take the fosamax 2 weeks prior to dental procedures !Get on augmentin as per requestRef er to dental surgeon as per her requestWil l have to discuss with her cardiologi st regarding use of coumadin OV 09/16/2024 : Now states that she has 'pulled out all' the teeth, does well Pain of ri ght hip joint 3934437773 91218 M25.551 S/p fallSeen in the UC, treated with gabapentin and flexerill, not taking at this timeGet on MDP, get Xrays and refer to Dr Prince as she does not want to be treated in [facility] OV 10/14/2024 :Xr hip: 09/16/2024 : Neg Tear of skin 876550605 T 14.8XXA L forearmHea ling, no bleeding noted, no swelling or redness, advised to keep area clean and dry Chronic ki dney disease 604506540 N18.[address] Dela Cruz has given her the zofran Hyperkalemia 74344050 E8 7.5 Repeat the CMP Nausea 783768861 R11.0 Is on chronic use of zofran, advised that there are severe side effects of such daily uses of this medication , including but not limited to CVS complaints Explained to her and her son Pippa that she should also discuss with her psychiatri st if the medication s for her psychiatry conditions can cause nausea for eg Tez advised NOT to stop any medication s till she discusses this with her psychiatri stRande states that her mother 'likes to doctor herself'Sh e should see her GI, s/p EGD done already, GI referral provided to her today 11/18/2024 OV 01/13/2025 : Is NOT wanting to see GI Screening mammography 24 069299 Z12.31 Eruption 750941405 R21 Red itchy rash in the groinNot examined, will start on trim-nysta tin crean Goals Section Goal Description Progress Status Start Date LastModified by Organization Details LastModified Time Activiti es of Daily Living Performs activities of daily living independently or with minimal assistance sustaining active 2023 Ara Ozuna RN Information not available 04/17/2024 22:43:58 Weight Leona ferguson Exhibits stable weight with normal fluctuation sustaining active 2023 Ara Ozuna RN Information not available 04/17/2024 22:44:15 Blood Pressure Maintains blood pressure goal as defined by care team Progressing active 2023 Ara Ozuna RN Information not available 02/26/2024 18:03:32 Health Concerns Section Related Observation LastModified by Organization Detai ls LastModified Time None Recorded Concern Status LastModified by Organization Details LastModified Time Osteoarthritis of knee Active Ara Ozuna RN Not Lizabeth ilable 01/16/2024 22:19:09 Nonischemic congestive cardiomyopathy Active Ara Ozuna RN Not Available 01/16/2024 22:1 9:34 Moderate recurrent major depression Active Ara Ozuna RN Not Available 01/16/2024 22: 18:57 Advance Directives Directive Y: Payers Insurance Date Sequence Insurance Name Policy Number Policy Briceno Covered Member ID Briceno Member ID Guarantor Name 02/07/2025 1 [facility] - MEDICARE COMPLETE - CHOICE PLAN 2 (MEDICARE REPLACEMENT REGIONAL PPO) [id number] Yi Martino [id number] Yi Martino Notes Date Note Type Note Provider Name and Address Organization Details Recorded Time 09/16/2024 text/html OV 11/06/2023: H ere to establish care Past Hx:HTNCardiomyopathyIns omniaDepressionHypothyr oidism Here to discuss above and get labs, she does feel well, she is wanting to discuss her medications especially her coumadin OV 12/06/2023: Here for f/u apt and to get her INR, she has noted some abd discomfort since about 3-4 days, no N/V or diarrhea, no constipation, no blood in the stool or urine, she would like to get this 'checked out' she has not yet done her labs, order was provided last OV OV 12/13/2023: Here as she has noted lumps in her neck, she was seen in the UC and did have a CT chest and now is concerned about these lesions, she denies any pain OV 06/12/2024: Here for her f/u apt, she is doing well, she just did the labs prior to her apt, she is here also to get a referral to a dentist OV 09/16/2024: Here for her f/u apt, she is doing well today Roque Reddy MD [address] [place] [address], [address], [place], [address], [place] [employer] 09/27/2024 15:31:44 10/14/2024 text/html OV 11/06/2023: H ere to establish care Past Hx:HTNCardiomyopathyIns omniaDepressionHypothyr oidism Here to discuss above and get labs, she does feel well, she is wanting to discuss her medications especially her coumadin OV 12/06/2023: Here for f/u apt and to get her INR, she has noted some abd discomfort since about 3-4 days, no N/V or diarrhea, no constipation, no blood in the stool or urine, she would like to get this 'checked out' she has not yet done her labs, order was provided last OV OV 12/13/2023: Here as she has noted lumps in her neck, she was seen in the UC and did have a CT chest and now is concerned about these lesions, she denies any pain OV 06/12/2024: Here for her f/u apt, she is doing well, she just did the labs prior to her apt, she is here also to get a referral to a dentist OV 09/16/2024: Here for her f/u apt, she is doing well today OV 10/14/2024: Here for her f/u apt, she is c/o some unsteadiness when she walks, feels that this could be vertigo, but these symptoms have resolved now, she did do the labs Roque Reddy MD [address], [address], [place], [address], StartDate Labs 10/14/2024 16:12:07 11/18/2024 text/html OV 11/06/2023: H ere to establish carePast Hx:HTNCardiomyopathyIns omniaDepressionHypothyr oidism Here to discuss above and get labs, she does feel well, she is wanting to discuss her medications especially her coumadin OV 12/06/2023: Here for f/u apt and to get her INR, she has noted some abd discomfort since about 3-4 days, no N/V or diarrhea, no constipation, no blood in the stool or urine, she would like to get this 'checked out' she has not yet done her labs, order was provided last OV OV 12/13/2023: Here as she has noted lumps in her neck, she was seen in the UC and did have a CT chest and now is concerned about these lesions, she denies any pain OV 06/12/2024: Here for her f/u apt, she is doing well, she just did the labs prior to her apt, she is here also to get a referral to a dentist OV 09/16/2024: Here for her f/u apt, she is doing well today OV 10/14/2024: Here for her f/u apt, she is c/o some unsteadiness when she walks, feels that this could be vertigo, but these symptoms have resolved now, she did do the labs OV 11/18/2024: Here as she feels that she may have a UTI, c/o burning with urination, no blood in urine or stool, no LBP, no fevers or chillsAlso wants to discuss her use of Zofran, states that she needs to take '30 tablets' a month Roque Reddy MD [address], [address], [place], [address], [facility] 11/20/2024 17:02:33 01/01/2025 text/html Primary care/Ref erring provider: Roque Reddy MD; Evon Ceja MD Patient is here to go over her COPD management. Initial development of shortness of breath: uration of shortness of breath: 4 yearsCondition of shortness of breath: stableTiming of shortness of breath: noneFrequency: up to 2 times a dayLimits activities: yesAggravating factors: walking from bathroom to bedroom, changing clothesAlleviating factors: rest Modified Medical [employer] (mMRC) Dyspnea Scale - Grade 2Grade 0 I only get breathless with strenuous exercise .Grade 1 I get short of breath when hurrying on the level or walking up a slight hill .Grade 2 I walk slower than people of the same age on the level because of breathlessness or have to stop for breath when walking at my own pace on the level .Grade 3 I stop for breath after walking about 100 yards or after a few minutes on the level .Grade 4 I am too breathless to leave the house or I am breathless when dressing . Treatment history: Other symptoms:Drooling: noDysarthria: noNeck pain: noOdynophagia: noDysphagia: noWeak mastication: noFacial weakness: noNasal speech: noProtruding tongue: noProductive cough: clear bubblyWheezing: noChest tightness: yesOrthopnea: noFrequent throat clearing or swallowing: noPalpitations: noHeartburn: yesEdema: no Environmental exposures:Nicotine smoke: noPaint: noDye: noDust mites: yesMold: noDamp basement: noWood burning stove: noAnimal dander: 2 catsCockroaches: noPollen: yesArsenic: noAsbestos: noBeryllium: noCadmium: noChromium: noCoal smoke: noDiesel fumes: noNickel: noSilica: noSoot: no EPWORTH SLEEPINESS SCALE (ESS) CHANCE OF DOZING SCORE0 = would never doze1 = slight chance of dozing2 = moderate chance of dozing3 = high chance of dozing SITUATION AND CHANCE OF DOZINGSitting and reading - 0Watching television - 0Sitting inactive in a public place (e.g. a theater or meeting) - 0As a passenger in a car for an hour without a break - 0Lying down to rest in the afternoon when circumstances permit - 1Sitting and talking to someone - 0Sitting quietly after lunch without alcohol - 0In a car, while stopped for a few minutes in the traffic - 0TOTAL SCORE 1Subjectively, patient has a slight chance of dozing. Loreta Haque MD [address] [facility], [address], [place], [address], [place] [facility] [employer] 01/01/2025 15:24:31 01/13/2025 text/html OV 11/06/2023: H ere to establish carePast Hx:HTNCardiomyopathyIns omniaDepressionHypothyr oidism Here to discuss above and get labs, she does feel well, she is wanting to discuss her medications especially her coumadin OV 12/06/2023: Here for f/u apt and to get her INR, she has noted some abd discomfort since about 3-4 days, no N/V or diarrhea, no constipation, no blood in the stool or urine, she would like to get this 'checked out' she has not yet done her labs, order was provided last OV OV 12/13/2023: Here as she has noted lumps in her neck, she was seen in the UC and did have a CT chest and now is concerned about these lesions, she denies any pain OV 06/12/2024: Here for her f/u apt, she is doing well, she just did the labs prior to her apt, she is here also to get a referral to a dentist OV 09/16/2024: Here for her f/u apt, she is doing well today OV 10/14/2024: Here for her f/u apt, she is c/o some unsteadiness when she walks, feels that this could be vertigo, but these symptoms have resolved now, she did do the labs OV 11/18/2024: Here as she feels that she may have a UTI, c/o burning with urination, no blood in urine or stool, no LBP, no fevers or chillsAlso wants to discuss her use of Zofran, states that she needs to take '30 tablets' a month OV 01/13/2025: Here for her f/u apt, she is doing well today, she is here with her CGStates that she was SOB and anxiety she has seen Dr Amaya and also has seen Dr Haque and is on albuterol Roque Reddy MD [address] [place] [address], [address], [place], [address], [place] [facility] 01/14/2025 19:24:11 OBGyn Episode No OBEpisode recorded.
[2025-02-17 15:34] LABS: NT Pro B Type Natriuretic Pept 3210 pg/mL (19.9-100)
[2025-02-17 15:37] LABS: Absolute Eosinophil Count 0.1 K/mm3 (0.0-0.3)
[2025-02-19 16:33] LABS: Immunoglobulin E 256 kU/L (<OR=114); NIL 0.02 IU/mL; Quantiferon TB Plus, 1T NEGATIVE (NEGATIVE); TB1-NIL <0.00 IU/mL; TB2-NIL <0.00 IU/mL
[2025-02-20 05:14] LABS: Alpha-1-Antitrypsin, QN 176 mg/dL (83-199)
[2025-02-20 16:09] LABS: Alternaria alternata IgE <0.10 kU/L; Alternaria alternata IgE Class 0; Aspergillus fumigatus IgE 0.38 kU/L; Bermuda Grass (G2) IgE <0.10 kU/L; Bermuda Grass (G2) IgE Class 0; Cat Dander IgE 2.36 kU/L; Cat Dander IgE Class 2; Cladosporium herbarum IgE <0.10 kU/L; Cladosporium herbarum IgE Clas 0; Cockroach IgE <0.10 kU/L; Cockroach IgE Clas 0; Common Ragweed IgE Class 0; Cottonwood IgE <0.10 kU/L; Dermatophagoides Farinae Class 0; Dermatophagoides Pterony Class 0; Dermatophagoides Pteronyssinus <0.10 kU/L; Dog Dander IgE 0.24 kU/L; Elm (T8) IgE <0.10 kU/L; Elm (T8) IgE Class 0; Hickory/Pecan IgE <0.10 kU/L; Hickory/Pecan IgE Class 0; Immunoglobulin E 217 kU/L (<OR=114); Maple Box Elder IgE Class 0; Mountain Cedar IgE <0.10 kU/L; Mountain Cedar IgE Class 0; Mouse Urine Proteins IgE <0.10 kU/L; Mouse Urine Proteins IgE Class 0; Oak IgE <0.10 kU/L; Peniciliium notatum class 0; Penicillium notatum (M1) IgE <0.10 kU/L; Rough Marsh <0.10 kU/L; Rough Marsh Elder Class 0; Rough Pigweed (W14) IgE <0.10 kU/L; Rough Pigweed (W14) IgE Class 0; Russian Thistle <0.10 kU/L; Sycamore IgE <0.10 kU/L; Sycamore IgE Class 0; Timothy Grass IgE <0.10 kU/L; Timothy Grass IgE Class 0; Walnut Tree IgE <0.10 kU/L; Walnut Tree IgE Class 0; White Ash IgE Class 0; White Mulberry IgE <0.10 kU/L; White Mulberry IgE Class 0
[2025-02-21 10:19] LABS: Immunoglobulin G, Serum 1298 mg/dL (600-1540); Immunoglobulin G1 958 mg/dL (382-929); Immunoglobulin G2 99 mg/dL (241-700); Immunoglobulin G3 22 mg/dL (22-178); Immunoglobulin G4 20.1 mg/dL (4.0-86.0)
== END 2025-02-17 14:04 | disposition home or self-care (01) ==
PROVIDERS: PCP Internal Medicine; Visit Provider Internal Medicine Pulmonary Disease
DX: R06.09 Other forms of dyspnea (principal); R05.9 Cough, unspecified; T78.40XA Allergy, unspecified, initial encounter; D89.9 Disorder involving the immune mechanism, unspecified
CPT/HCPCS: 36415; 82103; 82784; 82785; 82787; 83880; 85048; 86003; 86480

== ENCOUNTER 2025-02-18 12:03 | Outpatient (CLI) | payer MEDICARE, SELFPAY ==
--- NOTE | ~2025-02-18 | US_ITS ---
EXAM: RENAL ULTRASOUND HISTORY: N18.32 - Chronic kidney disease, stage 3b COMPARISON: None. Reference is made to a CT examination of the abdomen and pelvis dated 10/31/2022 FINDINGS: RIGHT KIDNEY: 11.6 x 6.3 x 5.7 cm. The parenchyma of the right kidney is increased in echogenicity. The cortex is thin. No hydronephrosis or bulky renal calculi. A single rounded anechoic avascular focus is identified within the interpolar region of the right kid bo measuring 8.2 x 8.0 x 7.0 cm. This is unchanged from 2022 CT examination. LEFT KIDNEY: 10.4 x 4.6 x 4.5 cm No hydronephrosis or renal calculi. The parenchyma of the left kidney is increased in echogenicity. The cortex is thin. BLADDER: Minimally distended, and otherwise unremarkable. IMPRESSION: No hydronephrosis or renal calculi. Findings suggesting medical renal disease. Simple cyst within the right kidney, unchanged when compared with CT examination dated 10/31/2022. Reviewed, dictated and finalized at location A. IMPRESSION: No hydronephrosis or renal calculi. Findings suggesting medical renal disease. Simple cyst within the right kidney, unchanged when compared with CT examinatio n dated 10/31/2022.
--- OUTSIDE RECORDS SUMMARY | 2025-02-18 12:47 | XMS_ITS | Patient Health Record ---
Author Organization [facility] Address [address] [place] [address] Care Team Providers Care Director Of Media Name Role Phone Maureen URBINA, Masoud Primary Care Provider Un available Patric Amaya Unavailable [phone] Allergies Allergen (clinical drug ingredient) Drug/Non Drug [...] 4 MG TAKE 1 TABLET BY [facility] TWICE DAILY NEEDED Oral for 5 Days Active Vraylar 1.5 MG 1 capsule at bedtime Oral every other day for 30 days Samples Active Amiodarone HCl 200 MG Oral for 60 Days Active Famotidine 20 MG TAKE 1 TABLET BY JER[facility] TWICE DAILY NEEDED Oral for 90 Days Active traZODone HCl 150 MG 1.5 tablet at bedti oh Oral Once a day for 30 days 09/13/2024 Active rOPINIRole HCl 0.5 MG TAKE 1 TABLET BY [facility] ONCE DAILY AT BEDTIME FOR 90 DAYS [...] Vaccine 1st dose Unknown 02/22/2022 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 appiris Covid-19 Vac cine 2nd dose Unknown 05/26/2022 [...] Problem Bipolar affective disorder, currently depressed, mild (874024033) Bipolar disorder, current episode depressed, mild (F31.31) Active confirmed Problem Generalized anxiety disorder (15980713) Generalized anxiety disorder (F41.1) Active confirmed Problem Primary insomnia (3364315) Primary insomnia (F51.01) Active confirmed Problem 01254783 Alzheimer's disease with late onset (G30.1) Active confirmed Problem Cardiomyopathy (32162122) Cardiomyopathy, unspecified (I42.9) Active confirmed Problem Generalized anxiety disorder (12815532) CAM[place] (generalized anxiety disorder) (F41.1) Active confirmed Problem Hyperlipidemia (86117266) Hyperlipidemia (E78.5) 03/22/20 21 Active confirmed Problem Hypothyroidism (63572650) Hypothyroidism (E03.9) 03/22/20 21 Active confirmed Problem Cardiomyopathy (44254603) Cardiomyopathy (I42.9) 03/22/20 21 Active confirmed Problem Left bundle branch block (14806504) Left bundle branch block (LBBB) (I44.7) 03/23/20 21 Active confirmed Problem Ventricular tachycardia (disorder) (52600307) VT (ventricular tachycardia) (I47.20) 04/12/20 21 Active confirmed Problem Automatic implantable cardiac defibrillator in situ (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) ICD (implantable cardioverter-defi brillator), biventricular, in situ (Z95.810) 04/21/20 23 Active confirmed Vital Signs Heart Rate 69 /min 02/13/2025 Height-cm 165.10 cm 02/13/2025 Blood pressure diastolic 83 mm Hg 02/13/2025 Weight-kg 81.65 kg 02/13/2025 Height 65.00 in 02/13/2025 Blood pressure systolic 140 mm Hg 02/13/2025 Weight 180, 180.0 lbs 02/13/2025 BMI 29.95 kg/m2 02/13/2025 Encounters Encounter Location Date Provider Diagnosis [facility] [employer] [address] [address] 03/13/2024 Patric Jose Luis Bipolar disorder, current episode depressed, mild F31.31 ; Cardiomyopathy, unspecified I42.9 and Primary insomnia F51.01 [facility] [employer] [address] 04/12/2024 Patric Jose Luis Bipolar disorder, current episode depressed, mild F31.31 ; Cardiomyopathy, unspecified I42.9 ; Primary insomnia F51.01 ; Alzheimer's disease with late onset G30.1 and CAMDEN (generalized anxiety disorder) F41.1 [facility] [employer] [address] 05/13/2024 Patric Jose Luis Bipolar disorder, current episode depressed, mild F31.31 ; Cardiomyopathy, unspecified I42.9 ; Primary insomnia F51.01 ; Alzheimer's disease with late onset G30.1 and CAMDEN (generalized anxiety disorder) F41.1 [facility] [employer] [address] 06/14/2024 Patric Jose Luis Bipolar disorder, current episode depressed, mild F31.31 ; Cardiomyopathy, unspecified I42.9 ; Primary insomnia F51.01 ; Alzheimer's disease with late onset G30.1 ; CAMDEN (generalized anxiety disorder) F41.1 ; Hyperlipidemia E78.5 ; Left bundle branch block (LBBB) I44.7 and Hypothyroidism E03.9 [facility] [place] [id number] [facility] [address] [address] 07/15/2024 Patric Jose Luis Bipolar disorder, current episode depressed, mild F31.31 ; Cardiomyopathy, unspecified I42.9 ; Primary insomnia F51.01 ; Alzheimer's disease with late onset G30.1 ; CAMDEN (generalized anxiety disorder) F41.1 ; Hyperlipidemia E78.5 ; Left bundle branch block (LBBB) I44.7 and Hypothyroidism E03.9 [facility] [employer] [address] [facility] [address] [place] [address] 09/19/2024 Patricyashira Contrerasam Bipolar disorder, current episode depressed, mild F31.31 ; Cardiomyopathy, unspecified I42.9 ; Primary insomnia F51.01 ; Alzheimer's disease with late onset G30.1 ; CAMDEN (generalized anxiety disorder) F41.1 ; Hyperlipidemia E78.5 ; Left bundle branch block (LBBB) I44.7 and Hypothyroidism E03.9 [facility] [employer] [address] [facility] [address] [place] [address] 10/17/2024 Patric Jose Luis Bipolar disorder, current episode depressed, mild F31.31 ; Primary insomnia F51.01 ; Alzheimer's disease with late onset G30.1 ; CAMDEN (generalized anxiety disorder) F41.1 ; Hyperlipidemia E78.5 and Hypothyroidism E03.9 [facility] [employer] [address] [address] 11/14/2024 Patric Jose Luis Encounter for screen ing for depression Z13.31 ; Encounter for screening for cardiovascular disorders Z13.6 ; Bipolar disorder, current episode depressed, mild F31.31 ; Primary insomnia F51.01 ; Alzheimer's disease with late onset G30.1 ; CAMDEN (generalized anxiety disorder) F41.1 ; Hyperlipidemia E78.5 and Hypothyroidism E03.9 [facility] [employer] [address] [facility] [address] [place] [address] 12/12/2024 Patric Jose Luis Encounter for screen ing for cardiovascular disorders Z13.6 ; Encounter for screening for depression Z13.31 ; Bipolar disorder, current episode depressed, mild F31.31 ; Primary insomnia F51.01 ; Alzheimer's disease with late onset G30.1 ; CAMDEN (generalized anxiety disorder) F41.1 ; Hyperlipidemia E78.5 and Hypothyroidism E03.9 [facility] [employer] [address] [facility] [address] [place] [address] 01/09/2025 Patric Jose Luis Bipolar disorder, current episode depressed, mild F31.31 ; Primary insomnia F51.01 ; Alzheimer's disease with late onset G30.1 ; CAMDEN (generalized anxiety disorder) F41.1 ; Negative depression screening Z13.31 and Encounter for screening for cardiovascular disorders Z13.6 [facility] [address] [place] [address] 02/13/2025 Patric Jose Luis Bipolar disorder, current episode depressed, mild F31.31 ; Primary insomnia F51.01 ; Alzheimer's disease with late onset G30.1 ; Dietary counseling and surveillance Z71.3 ; CAMDEN (generalized anxiety disorder) F41.1 ; Encounter for screening for cardiovascular disorders Z13.6 and Encounter for screening for depression Z13.31 [place] [address] [facility] [address] [place] [address] 03/04/2024 Patric Jose Luis Generalized anxiety disorder F41.1 [place] [address] [facility] [address] [place] [address] 03/05/2024 Patric Jose Luis [place] [address] [address] 08/16/2024 Patric Jose Luis Generalized anxiety disorder F41.1 [place] [address] [facility] [address] [place] [address] 09/13/2024 Patric Jose Luis Generalized anxiety disorder F41.1 and Primary insomnia F51.01 [place] [address] [address] 11/26/2024 Patric Jose Luis Assessments Encounter Date [...] be confirmed. - Consider referral to a tire design engineer or meat cooler for further evaluation and management. Bipolar Disorder [...] Healthcare Access - Assessment: The patient has [employer] insurance and is concerned about potential changes in network coverage, specifically mentioning [place] potentially going out of network. - Plan: [...] supply of clonazepam from their preferred pharmacy ([email or web address]) and has had to use an alternative pharmacy ([facility]) to obtain the medication. - Plan: - Send prescriptions for clonazepam 0.5 mg three times a day, trazodone 150 mg, and venlafaxine 37.5 mg to [facility] in [place] - Instruct the patient to inform the [...] Plan: Encourage patient to follow up with tire design engineer and primary care physician for further evaluation [...] Support - Assessment: Patient is working with [employer] for Medicaid application, despite concerns about eligibility. [...] Plan: Encourage patient to follow up with tire design engineer and primary care physician for further evaluation [...] supply of clonazepam from their preferred pharmacy ([email or web address]) and has had to use an alternative pharmacy ([facility]) to obtain the medication. - Plan: - Send prescriptions for clonazepam 0.5 mg three times a day, trazodone 150 mg, and venlafaxine 37.5 mg to [facility] in [place] - Instruct the patient to inform the [...] Support - Assessment: Patient is working with [employer] for Medicaid application, despite concerns about eligibility. [...] be confirmed. - Consider referral to a tire design engineer or meat cooler for further evaluation and management. Bipolar Disorder [...] Healthcare Access - Assessment: The patient has [employer] insurance and is concerned about potential changes in network coverage, specifically mentioning [place] potentially going out of network. - Plan: [...] be confirmed. - Consider referral to a tire design engineer or meat cooler for further evaluation and management. Bipolar Disorder [...] Healthcare Access - Assessment: The patient has [employer] insurance and is concerned about potential changes in network coverage, specifically mentioning [place] potentially going out of network. - Plan: [...] supply of clonazepam from their preferred pharmacy ([email or web address]) and has had to use an alternative pharmacy ([facility]) to obtain the medication. - Plan: - Send prescriptions for clonazepam 0.5 mg three times a day, trazodone 150 mg, and venlafaxine 37.5 mg to [facility] in [place] - Instruct the patient to inform the [...] Support - Assessment: Patient is working with [employer] for Medicaid application, despite concerns about eligibility. [...] Plan: Encourage patient to follow up with tire design engineer and primary care physician for further evaluation [...] Plan: Encourage patient to follow up with tire design engineer and primary care physician for further evaluation [...] Support - Assessment: Patient is working with [employer] for Medicaid application, despite concerns about eligibility. [...] be confirmed. - Consider referral to a tire design engineer or meat cooler for further evaluation and management. Bipolar Disorder [...] Healthcare Access - Assessment: The patient has [employer] insurance and is concerned about potential changes in network coverage, specifically mentioning [place] potentially going out of network. - Plan: [...] be confirmed. - Consider referral to a tire design engineer or meat cooler for further evaluation and management. Bipolar Disorder [...] Healthcare Access - Assessment: The patient has [employer] insurance and is concerned about potential changes in network coverage, specifically mentioning [place] potentially going out of network. - Plan: [...] Support - Assessment: Patient is working with [employer] for Medicaid application, despite concerns about eligibility. [...] Plan: Encourage patient to follow up with tire design engineer and primary care physician for further evaluation [...] Support - Assessment: Patient is working with [employer] for Medicaid application, despite concerns about eligibility. [...] be confirmed. - Consider referral to a tire design engineer or meat cooler for further evaluation and management. Bipolar Disorder [...] Healthcare Access - Assessment: The patient has [employer] insurance and is concerned about potential changes in network coverage, specifically mentioning [place] potentially going out of network. - Plan: [...] Support - Assessment: Patient is working with [employer] for Medicaid application, despite concerns about eligibility. [...] be confirmed. - Consider referral to a tire design engineer or meat cooler for further evaluation and management. Bipolar Disorder [...] Healthcare Access - Assessment: The patient has [employer] insurance and is concerned about potential changes in network coverage, specifically mentioning [place] potentially going out of network. - Plan: [...] be confirmed. - Consider referral to a tire design engineer or meat cooler for further evaluation and management. Bipolar Disorder [...] Healthcare Access - Assessment: The patient has [employer] insurance and is concerned about potential changes in network coverage, specifically mentioning [place] potentially going out of network. - Plan: [...] Support - Assessment: Patient is working with [employer] for Medicaid application, despite concerns about eligibility. [...] or national office of the Alzheimer's Association (5-981-996-39 00; http://www.al z.org), the Alzheimer's Disease Education and Referral Center (ADEAR) (6-215-989-43 80; http://www.ni a.nih.gov/Alz heimers/), Mood and Depression [...] Plan: Encourage patient to follow up with tire design engineer and primary care physician for further evaluation [...] or national office of the Alzheimer's Association (3-578-024-39 00; http://www.al z.org), the Alzheimer's Disease Education and Referral Center (ADEAR) (4-566-138-43 80; http://www.ni a.nih.gov/Alz heimers/), Sciatica Pain - [...] or national office of the Alzheimer's Association (2-622-429-39 00; http://www.al z.org), the Alzheimer's Disease Education and Referral Center (ADEAR) (0-240-768-43 80; http://www.ni a.nih.gov/Alz heimers/), Anxiety - Assessment: Patient reports increased anxiety with elevated heart rate (84, usually 65). - Plan: - Continue current medications. - Monitor for changes in anxiety levels. Kidney Function - Assessment: Patient has a history of hospitalization due to Furosemide (Lasix) issue. Upcoming appointment with waiter/waitress dining car on the . - Plan: - Monitor [...] member for money and food. Power of transactional attorney is with brother Mauricio Pacheco. - Plan: - Encourage patient to discuss financial concerns with power of transactional attorney and establish boundaries with family members. [...] cardiac device monitoring - Follow up with tire design engineer as scheduled in February Gambling Urges Assessment: [...] without a caregiver for 2 months. A home furnishings sales representative from an aging services organization has contacted [employer] to address this issue. Plan: - Follow up on the status of caregiver assignment through [employer] Disclaimer: This note has been transcribed using speech recognition software and serves as a reflection of the patient's visit. While efforts have been made to ensure accuracy, there may be errors, including special services director inaccuracies and misspellings of medication names. This document should not be considered a verbatim record, and any discrepancies should be verified with the provider. 01/09/2025 Other Medication Management and Access - Assessment: Patient reports discontinuation of Entresto due to loss of sample access and high [id number] costs (approximately $600/month). This has led to [...] or reduced-cost medications. - Follow up with tire design engineer (Dr. Rodriguez) regarding medication changes and current [...] daily functioning. - Consider referral to social insurance specialist for additional support if needed. Mood and [...] 03/13/2025 01:15:00 PM, [address], [facility] [address], [place], [address], Insurance Providers Payer Name Payer Address Payer Phone Subscriber Number Group Number Insured Name Patient Relationship to Insured Coverage Start Date Coverage End Date [employer] Medicare Replacement/ Advantage - Ppo [address] [address] [place] [address] [id number] JAILENE MARTINO Self - patient is the [...] Date(Month/Year) Implantation of cardiac defibrillator libby cook ([id number]) 04/12/2021
--- OUTSIDE RECORDS SUMMARY | 2025-02-18 12:48 | XMS_ITS | Referral Summary ---
Author Organization [place] [address] [address] [place] [address] Care Team Providers Care Bottom Scrubber Name Role Phone Bandar Gaffney MD Unavailable [phone] Dillan Reddy MD Primary Care Provide r Encounters Date Type Department Care Team Description 02/10/2025 Telephone [facility] Cardiology [address] [place] [address] [address] [place] [phone] Samy Ceja MD 01/13/2025 Telephone [facility] Medical [facility] Cardiology [address] [place] [address] [address] [place] [address] Samy Ceja MD 01/06/2025 10:00 AM CDT Office Visit [facility] Medical [facility] Cardiology at [address] [place] [phone] Samy Ceja MD Dilated cardiomyopathy (HCC) (Primary Dx) 01/02/2025 Telephone [facility] Medical [facility] Cardiology [address] [place] [address] [address] [place] [address] Samy Ceja MD 01/01/2025 Telephone [facility] Cardiology [address] [place] [address] [address] [place] [address] Samy Ceja MD 12/04/2024 Telephone [facility] Cardiology [address] [place] [address] [address] [place] [address] Samy Ceja MD from Last [...] in situ 04/13/2021 Overview (04/21/2023): Dodge DDD [place] BI-V ICD imp on 04/12/21 for DCM, [...] often do you attend chur ch or mormonism services? 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 ICD Dodge Vascular [id number] 02/01/2023 C [id number] / [id number] / [employer] 7120q/65 Durata 7fr 65cm 2 Coil Df-4 True Bipolar Active Fixation - [id number] - [id number] Implanted:Qty: 1 on 04/12/2021 by Bandar Gaffney MD at [facility] Lead [employer] [id number] 02/01/2022 7120Q/65 / [id number] / [employer] 2088tc/52 Tendril Sts 6fr 52cm Is-1 Connector Active Fixation Bipolar Soft - [id number] - [id number] Implanted:Qty: 1 on 04/12/2021 by Bandar Gaffney MD at [facility] Lead [employer] [id number] 03/03/2024 2088TC/52 / [id number] / [employer] 1458q/86 Quartet 5fr [id number] 4 Electrode Is-4 Connector Steerable Tip - [id number] - [id number] Implanted:Qty: 1 on 04/12/2021 by Bandar Gaffney MD at [facility] Lead [employer] [id number] 02/02/2024 1458Q/86 / [id number] / Insurance UHC MEDICARE ADVANTAGE [facility] MEDICARE ADVANTAGE Member Subscriber Plan / Payer (Ef fective 2016-Present) Name:YI MARTINO Relation to Subscriber:Self Name:Yi Martino Payer ID:[id number] (NAIC) Type:UHC MEDICARE Address: [place] [id number] UHC MEDICARE ADVANTAGE Advance Directives For more information, please contact: [phone] * Full Code (Latest Code Status on File) Date Activated Date Inactivated Comments 03/23/2023 7:04 AM 03/26/2023 7:27 PM Care Teams Bottom Scrubber Relationship Specialty Start Date End Date Dillan Reddy MD [address] [facility] [address] [place] [address] PCP - General Internal Medicine 11/09/23 Bandar Gaffney MD Consulting Physician Cardiology 04/13/21
--- OUTSIDE RECORDS SUMMARY | 2025-02-18 12:48 | XMS_ITS | Clinical Summary ---
Author Organization [facility] [address] [place] [address] Care Team Providers Care Silk Printer Name Role Phone Bandar Gaffney MD Unavailable [phone] Dillan Reddy MD Primary Care Provide r [...] in situ 04/13/2021 Overview (04/21/2023): Dodge DDD [place] BI-V ICD imp on 04/12/21 for DCM, [...] Type Department Care Team Description 02/10/[address] [facility] Medical [facility] Cardiology [address] [place] [address] [address] [place] [phone] Samy Ceja MD 01/13/2025 Telephone [facility] Cardiology [address] [place] [address] [address] [place] [phone] Samy Ceja MD 01/06/2025 10:00 AM CDT Office Visit [facility] Cardiology at [address] [place] [address] Samy Ceja MD Dilated cardiomyopathy (HCC) (Primary Dx) 01/02/2025 Telephone [facility] Cardiology [address] [place] [address] [address] [place] [phone] Samy Ceja MD 01/01/2025 Telephone [facility] Cardiology [address] [facility] [address] [place] [phone] Samy Ceja MD 12/04/2024 Telephone [facility] Cardiology [address] [place] [address] [address] [place] [phone] Samy Ceja MD from Last 3 Months [...] often do you attend chur ch or taoist services? 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 Gender Identity Not on file Sexual Orientation [...] 05/15/2018, 11/2015 Medical Devices Implanted Type Area Director Translational Device Identifier Shelf Expiration Date Model / Serial / Lot Dodge Vascular [id number] Defib Cardiac [id number] [place] Hf Df4 Is-4 Is-1 [facility] - [id number] - [id number] Implanted:Qty: 1 on 04/12/2021 by Bandar Gaffney MD at [facility] ICD Dodge Vascular [id number] 02/01/2023 C [id number] / [id number] / [employer] 7120q/65 Durata 7fr 65cm 2 Coil Df-4 True Bipolar Active Fixation - [id number] - [id number] Implanted:Qty: 1 on 04/12/2021 by Bandar Gaffney MD at [facility] Lead [employer] [id number] 02/01/2022 7120Q/65 / [id number] / [employer] 2088tc/52 Tendril Sts 6fr 52cm Is-1 Connector Active Fixation Bipolar Soft - [id number] - [id number] Implanted:Qty: 1 on 04/12/2021 by Bandar Gaffney MD at [facility] Lead [employer] [id number] 03/03/2024 2088TC/52 / [id number] / [employer] 1458q/86 Quartet 5fr [id number] 4 Electrode Is-4 Connector Steerable Tip - [id number] - [id number] Implanted:Qty: 1 on 04/12/2021 by Bandar Gaffney MD at [facility] Lead [facility] [id number] 02/02/2024 1458Q/86 / [id number] / Insurance [facility] MEDIC[facility] ADVANTAGE [facility] Address: [address] [address] [place] [address] [facility] MEDICARE ADVANTAGE [facility] Address: [address] [address] [place] [address] UHC MEDICARE ADVANTAGE Advance Directives For more information, please contact: [phone] * Full Code (Latest Code Status on File) Date Activated Date Inactivated Comments 03/23/2023 7:04 AM 03/26/2023 7:27 PM Care Teams Silk Printer Relationship Specialty Start Date End Date Dillan Reddy MD [address] [address] PCP - General Internal Medicine 11/09/23 Bandar Gaffney MD Consulting Physician Cardiology 04/13/21
--- OUTSIDE RECORDS SUMMARY | 2025-02-18 12:48 | XMS_ITS | Encounter Summary ---
Author Organization [facility] Address [address] [facility] [address] [place] [address] Care Team Providers Care Hardness Tester Name Role Phone Lana Tovar MD Primary Care Provider + Lana Tovar MD Primary Care Provider + Bandar Gaffney MD Unavailable [phone] Dillan Reddy MD Primary Care Provide r Encounter Details Date Type Department Care Team (Late st Contact Info) Description 2016 Orders Only [facility] ProviderSaurabh MD [address] [place] [address] Social History Tobacco Use Types Packs/Day Years Used Date Smoking Tobacco: Never Alcohol Use Standard Drinks/Week Comments No 0 (1 standard drink = 0.6 oz pur e alcohol) Comments Unknown Sex and Gender Information Value Date Recorded Sex Assigned at Not on file 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
--- OUTSIDE RECORDS SUMMARY | 2025-02-18 12:48 | XMS_ITS | Clinical Summary ---
Author Organization [facility] Address [address] [place] [address] Phone Care Team Providers Care Laryngologist Name Role Phone Lana Tovar MD Primary [...] to complete this topic Insurance MEDICARE C [facility] Care Teams Laryngologist Relationship Specialty Start Date End Date Lana Tovar MD [address] [place] [address] PCP - General Family Medicine 12/23/16
--- OUTSIDE RECORDS SUMMARY | 2025-02-18 12:48 | XMS_ITS | Encounter Summary ---
Author Organization [facility] Address [address] [place] [address] Care Team Providers Care Incinerator Operator Name Role Phone Bandar Gaffney MD Unavailable [phone] Dillan Reddy MD Primary Care Provide r Encounter Details Date Type Department Care Team (Late st Contact Info) Description 12/04/2024 Telephone [facility] Medical Group Cardiology [address] [facility] 162 [facility] 102 [place] [phone] Samy Ceja MD [address] [facility] [address] [place] [address] Social History Tobacco Use Types [...] often do you attend chur ch or sabianist services? 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
== END 2025-02-18 12:04 | disposition home or self-care (01) ==
PROVIDERS: PCP Internal Medicine; Visit Provider Internal Medicine Nephrology
DX: N18.32 Chronic kidney disease, stage 3b (principal); N28.1 Cyst of kidney, acquired; I42.9 Cardiomyopathy, unspecified
CPT/HCPCS: 76775

== ENCOUNTER 2025-02-20 11:52 | Outpatient (CLI) | payer MEDICARE, SELFPAY ==
--- OUTSIDE RECORDS SUMMARY | 2025-02-20 12:34 | XMS_ITS | Clinical Summary ---
Author Organization [facility] Address [address] [place] [address] Care Team Providers Care Machine Stonecutter Name Role Phone Unavailable Primary Care Provider [...] Documents on File Type Date Recorded Patient Clinical Research Management Associate Expl anation Advance Directives and Living Will 01/14/2016 12:00 AM ADVANCED DIRECTIVES
--- OUTSIDE RECORDS SUMMARY | 2025-02-20 12:34 | XMS_ITS | Encounter Summary ---
Author Organization [facility] Address [address] [place] [address] Care Team Providers Care Corporate General Manager Name Role Phone Bandar Gaffney MD Unavailable [phone] Dillan Reddy MD Primary Care Provide r Reason for Visit * Cardiology (Routine) - Closed Specialty Diagnoses / Procedures Referred By Contac t Referred To Contact Diagnoses Dilated cardiomyopathy (HCC) VT (ventricular tachycardia) (HCC) ICD (implantable cardioverter-defibrillator), biventricular, in situ Paroxysmal atrial fibrillation (HCC) Procedures DEVICE CHECK - IN OFFICE Samy Ceja MD [address] [place] [address] Phone: tel: fax: [facility] Medical Group Referral ID Status Reason Start Date Expiration Date Visits Re quested Visits Authorized [id number] Closed 12/20/2023 01/18/2025 1 1 Encounter Details Date Type Department Care Team (Latest Contact Info) Description 02/19/2025 1:30 PM CDT Ancillary Procedure [facility] Medical [facility] Cardiology [address] [place] [address] Dilated cardiomyopathy (HCC); VT (ventricular tachycardia) (HCC); ICD (implantable cardioverter-defibrill ator), biventricular, in situ; Paroxysmal atrial fibrillation (HCC) Social History Tobacco Use Types Packs/Day Years [...] often do you attend chur ch or denominational services? Never 04/13/2021 Do you belong to any clubs o r organizations such as yazidism groups, unions, fraSponduu or athletic groups, or school groups? 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 Gender Identity Not on file Sexual Orientation Not on file documented as of this encounter Plan of Treatment Pending Results Name Type Priority Associated Diagnoses Date /Time DEVICE CHECK - IN OFFICE Cardiac Services Routine Dilated cardiomyopathy (HCC) VT (ventricular tachycardia) (HCC) ICD (implantable cardioverter-defibrillat or), biventricular, in situ Paroxysmal atrial fibrillation (HCC) 02/19/2025 1:25 PM CDT documented as of this encounter Visit Diagnoses Diagnosis Dilated cardiomyopathy (HCC) Other primary cardiomyopathies VT (ventricular tachycardia) (HCC) Paroxysmal ventricular tachycardia ICD (implantable cardioverter-defibrillator), biventricular, in situ Paroxysmal atrial fibrillation (HCC) Atrial fibrillation documented in this encounter Care Teams Corporate General Manager Relationship Specialty Start Date End Date Dillan Reddy MD [address] [address] PCP - General Internal Medicine 11/09/23 Bandar Gaffney MD Consulting Physician Cardiology 04/13/21 documented as of this encounter
--- OUTSIDE RECORDS SUMMARY | 2025-02-20 12:34 | XMS_ITS | Data Portability ---
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 Name Role Phone ELIAZARMANDYROQUE Primary Care Provider LANA TOVAR Referring Provider PEDRO AMAYA Psychiatrist LORETA HAQUE Energy Operations Vice President JENNIFFER ROJAS Industrial Training Specialist [phone] EVON CEJA Cardiac Surgeon Assessment Encounter Date [...] and GGO Chest CT 04/22/24 no nodules [place] PFT 05/25/23 decreased FEV1/FVC, FEV1 1.52 L (73%), TLC 5.26 L (101%), RV 3.04 L (128%), DLCO 54%, DLCO/VA 74% [place] PFT 11/08/24 decreased FEV1/FVC, FEV1 1.28 L (73%), TLC 4.91 L (107%), RV 3.08 L (138%), DLCO 46%, DLCO/VA 84% Cough/Dyspnea workup will be done as follows: Respiratory allergen panel for [facility] Serum IgE Serum total IgG, IgG1, IgG2, IgG3, IgG4 Isvog-6-drhhazfcux n phenotype and level TB stimulated gamma [...] Lab CMP, serum or plasma 2024 025 [email or web address] [facility] (Lab), [address] [place], [address], 01/13/2025 15:45:34 lipid panel, serum 2024 025 [email or web address] [facility] (Lab), [address] [place], [address], 01/13/2025 15:45:35 CBC w/ auto diff [address] [place] [address] (Lab), [address] [place], [address], 01/13/2025 15:45:35 TSH, serum or plasma [address] [place] [address] (Lab), [address] [place], [address], 01/13/2025 15:45:36 T4, free, serum [address] [place] [address] (Lab), [address] [place], [address], 01/13/2025 15:45:36 vitamin B12 + folate, serum or blood [address] [place] [address] (Lab), [address] [place], [address], 01/13/2025 15:45:36 alpha-1-a ntitrypsi n (aat) phenotype , serum [address] [place] [address] - Outpatient Lab, [address] [place], [address], 01/01/2025 15:18:12 BNP (B-type natriuret ic peptide), serum or plasma [address] [place] [address] - Outpatient Lab, [address] [place], [address], 01/01/2025 15:18:12 ige, total, serum [address] [place] [address] Outpatient Lab, [address] [place], [address], 01/01/2025 15:18:12 tb (M tuberculo sis), ifn-gamma giovanni, blood [address] - Outpatient Lab, [address] [place], [address], 01/01/2025 15:18:11 eosinophi l count, manual, blood (OBS) [address] Outpatient Lab, [address] [place], [address], 01/01/2025 15:18:11 [address] s 1+2+3+4, serum [address] Outpatient Lab, [address] [place], [address], 01/01/2025 15:18:11 respirato ry allergen panel - [facility] b [address] Outpatient Lab, [address] [place], [address], 01/01/2025 15:18:11 CMP, serum or plasma 2024 025 [facility] (Lab), [address] [place], [address], 11/18/2024 12:40:38 lipid panel, serum 2024 025 [facility] (Lab), [address] [place], [address], 11/18/2024 12:40:38 CBC w/ auto diff 2024 025 [facility] (Lab), [address] [place], [address], 11/18/2024 12:40:38 TSH, serum or plasma 2024 025 [facility] (Lab), [address] [place], [address], 11/18/2024 12:40:38 T4, free, serum 2024 025 [facility] (Lab), [address] [place], [address], 11/18/2024 12:40:38 vitamin B12 + folate, serum or blood 2024 025 [facility] (Lab), [address] [place], [address], 11/18/2024 12:40:38 potassium , serum 2024 025 [email or web address] [facility], [address], [place], [address], 11/13/2024 10:56:50 CMP, serum or plasma [address] (Lab), [address] [place], [address], 10/16/2024 10:04:23 lipid panel, serum [address] (Lab), [address] [place], [address], 10/16/2024 10:04:23 CBC w/ auto diff [address] (Lab), [address] [place], [address], 10/16/2024 10:04:24 TSH, serum or plasma [address] (Lab), [address] [place], [address], 10/16/2024 10:04:24 T4, free, serum [address] (Lab), [address] [place], [address], 10/16/2024 10:04:24 vitamin B12 + folate, serum or blood 2024 025 [email or web address] (Lab), [address] [place], [address], 10/16/2024 10:04:24 CMP, serum or plasma 2024 025 [facility] (Lab), [address] [place], [address], 09/16/2024 23:49:33 lipid panel, serum 2024 025 [facility] (Lab), [address] [place], [address], 09/16/2024 23:49:33 CBC w/ auto diff 2024 025 [facility] (Lab), [address] [place], [address], 09/17/2024 02:21:46 TSH, serum or plasma [address] (Lab), [address] [place], [address], 09/16/2024 14:41:19 T4, free, serum [address] (Lab), [address] [place], [address], 09/16/2024 14:41:19 vitamin B12 + folate, serum or blood [address] (Lab), [address] [place], [address], 09/16/2024 14:41:19 Referral gynecolog ist referral - Please call patient to schedule an appointme nt. Thank you. 2024 025 BROWN Conway MD, [address] [facility] [address], [place], [address], 01/16/2025 12:47:49 pulmonolo gist referral - Please call patient to schedule an appointme nt. Thank you. 2024 025 hrushingWallace Haque MD, [address], [place], [address], 01/20/2025 08:59:55 gynecolog ist referral - Please call patient to schedule an appointme nt. Thank you. 2024 025 BROWN Conway MD, [address] [facility] [address], [place], [address], 11/27/2024 10:40:36 gastroent erologist referral - Please call patient to schedule an appointme nt. Thank you. 2024 025 MARION De La Cruz MD, [address], [address], [place], [address], 11/27/2024 10:46:48 nephrolog ist referral - Please call patient to schedule an appointme nt. Thank you. 2024 025 BROWN Causey MD, [address], [address], [place], [address], 11/27/2024 11:40:35 pulmonolo gist referral - Please call patient to schedule an appointme nt. Thank you. 2024 025 hrushingWallace Haque MD, [address] [place], [address], 11/27/2024 10:17:15 gynecolog ist referral - Please call patient to schedule an appointme nt. Thank you. 2024 025 rupal Conway MD, [address], [place], [address], 02/10/2025 12:40:57 nephrolog ist referral - Please call patient to schedule an appointme nt. Thank you. 2024 025 rupal Causey MD, [address], [address], [place], [address], 02/10/2025 12:40:58 pulmonolo gist referral - Please call patient to schedule an appointme nt. Thank you. 2024 025 rupal Haque MD, [address] [place], [address], 02/10/2025 12:40:57 gynecolog ist referral - Please call patient to schedule an appointme nt. Thank you. 2024 025 [email or web address] Johanne Conway MD, [address], [place], [address], 11/12/2024 10:36:12 orthopedi c surgeon referral - Please call patient to schedule an appointme nt. Thank you. 2024 025 [email or web address] Enrique Prince, [address], [place], [address], 11/12/2024 10:35:31 cardiolog ist referral 2024 025 [email or web address] Evon Ceja MD, [address], [address], [place], [address], 09/17/2024 15:56:35 pulmonolo gist referral 2024 025 trever Haque MD, [address] [place], [address], 09/17/2024 15:56:35 Procedures None recorded. Surgeries None recorded. Imaging MAMMO, screening , bilateral - Please call patient to schedule. 2024 025 [facility] (Imaging), [address] [facility] [address], [place], [address], 01/13/2025 16:58:44 XR, hip + pelvis, unilatera l, 2 or 3 view 2024 025 [place] [facility] (Imaging), [address], [place], [address], 09/16/2024 17:41:12 Medication Orders nystatin- triamcino lone 100,000 unit/g-0. 1 % topical cream 2024 025 [facility] [place], [address], 01/13/2025 15:43:11 albuterol sulfate HFA 90 mcg/actua tion aerosol inhaler 2024 025 [facility] [address], [address] [place], [address], 01/01/2025 15:14:27 amoxicill in 500 mg capsule [address] [facility] [address] [place], [address], 12/27/2024 14:45:13 warfarin 1 mg tablet [address] [facility] [address] [place], [address], 12/02/2024 09:18:18 warfarin 3 mg tablet [address] [facility] [address], [address] [place], [address], 12/02/2024 09:18:18 Medrol ([place]) 4 mg tablets in a dose pack 2024 025 [email or web address] [facility] [address], [address] [place], [address], 10/14/2024 15:18:56 Patient TargetsNo targets recorded. Patient InstructionsNo instructions recorded. Reason for Referral News Commentator Referral for Gy necologic examination Please call patient to schedule an appointment. Thank you. Referring Physician: Roque Reddy Internal Medicine, Encounter Date: 09/16/2024 Energy Operations Vice President Referral for M ultiple nodules of lung Referring Physician: Roque Reddy Internal Medicine, Encounter Date: 09/16/2024 Manager Pharmacy Referral for No nischemic congestive cardiomyopathy Referring Physician: Roque Reddy Internal Medicine, Encounter Date: 09/16/2024 Orthopedic Surgeon Referral for Pain of right hip joint Please call patient to schedule an appointment. Thank you. Referring Physician: Roque Reddy Internal Medicine, Encounter Date: 09/16/2024 News Commentator Referral for Gy necologic examination Please call patient to schedule an appointment. Thank you. Referring Physician: Roque Reddy Internal Medicine, Encounter Date: 10/14/2024 Energy Operations Vice President Referral for M ultiple nodules of lung Please call patient to schedule an appointment. Thank you. Referring Physician: Roque Reddy Internal Medicine, Encounter Date: 10/14/2024 Grocery Clerk Marking Referral for Ch ronic kidney disease Please call patient to schedule an appointment. Thank you. Referring Physician: Roque Reddy Internal Medicine, Encounter Date: 10/14/2024 News Commentator Referral for Gy necologic examination Please call patient to schedule an appointment. Thank you. Referring Physician: Roque Reddy Internal Medicine, Encounter Date: 11/18/2024 Energy Operations Vice President Referral for M ultiple nodules of lung Please call patient to schedule an appointment. Thank you. Referring Physician: Roque Reddy Internal Medicine, Encounter Date: 11/18/2024 Grocery Clerk Marking Referral for Ch ronic kidney disease Please call patient to schedule an appointment. Thank you. Referring Physician: Roque Reddy Internal Medicine, Encounter Date: 11/18/2024 Industrial Training Specialist Referral for Nausea Please call patient to schedule an appointment. Thank you. Referring Physician: Roque Reddy Internal Medicine, Encounter Date: 11/18/2024 News Commentator Referral for Gy necologic examination Please call patient to schedule an appointment. Thank you. Referring Physician: Roque Reddy Internal Medicine, Encounter Date: 01/13/2025 Energy Operations Vice President Referral for M ultiple nodules of lung Please call patient to schedule an appointment. Thank you. Referring Physician: Roque Reddy Internal Medicine, Encounter Date: 01/13/2025 Results Created Date Observation Date Name Description Value Unit Range Abnormal Flag Note LastModifiedBy Organization Detail LastModifiedTime 01/17/20 25 01/16/2025 PT/IN R PT 80.3 Not Available [facility] Internal Med [facility] [address] [facility] [address], [place], [address], 01/16/2025 14:26:29 01/17/20 25 01/16/2025 PT/IN R INR 6.7 Not Available [facility] Internal Med [facility] [address], [place], [address], 01/16/2025 14:26:29 09/16/19 25 09/16/2024 XR, hip + pelvi s, unila teral , 2 or 3 view No observ ation record ed. [facility] [facility] [address], [place], [address], 09/16/2024 17:41:12 11/28/19 25 11/08/2024 compl ete PFT w/ post cox north hodil ator norberto metry * No observ ation record ed. [address] (Pulmonary) [address], [place], [address], 12/08/2024 15:13:19 02/19/20 25 02/18/2025 imagi ng/di cecelia tic resul t No observ ation record ed. [facility] [address] [facility] [address], [place], [address], 02/18/2025 19:39:24 Result Notes None recorded. Problems Name Problem SNOMED Code Status Onset Date Resolution Date Notes Provider Name and Address Organization Details Recorded Time Gastroesop hageal reflux disease 403422235 Active Not Available [facility] 3 09:29:51 Vitamin D deficiency 94405600 Active Not Available [facility] 3 09:29:52 Hypothyroi dism 34572154 Active Not Available [facility] 3 09:29:52 Osteoporos is 73399732 Active 2020 DEXA 1 Not Available [facility] 3 09:29:53 Long-term current use of anticoagul ant 804712408 Active 2020 Not Available [facility] 3 09:29:53 Essential hypertensi on 68988783 Active 2022 Lana Tovar MD [address] [facility], [place], [address] , [facility] 3 15:26:22 Moderate recurrent major depression 28838944 Active 2023 Roque holden MD [address] [facility], [place], [address] , [facility] 4 12:14:22 Nonischemi c congestive cardiomyop athy 642790866014 Active 2023 Roque holden MD [address], [address], [place], [address] , [facility] 4 12:15:17 Hiatal hernia 44854467 Active 2023 Roque holden MD [address], [address], [place], [address] , [place] [facility] 4 14:48:45 Hyperlipid emia 06739057 Active 2023 Rula Recio MA null, [place] [facility] 4 12:42:42 Liver enzymes level above reference range 704791673 Active 2023 Rula Recio MA null, [place] [facility] 4 12:08:58 Atrial fibrillati on 30537731 Active 2023 Rula Recio MA null, [place] [facility] 4 10:50:09 Chronic kidney disease 263131320 Active 2024 Roque holden MD [address], [address], [place], [address] , [facility] - [facility] 5 15:42:06 Mild chronic obstructiv e pulmonary disease 616061213 Active 2024 Loreta Haque MD [address], [address], [place], [address] , [facility] - [facility] 5 15:13:17 Dental caries 75344393 Active 2024 Roque holden MD [address], [address], [place], [address] , [facility] - [facility] 5 12:23:26 Multiple nodules of lung 038379039 Active 2024 Roque holden MD [address], [address], [place], [address] , [facility] - [facility] 5 14:34:08 Nausea 557390784 Active 2024 P[place]Z [place] null, [place] [facility] 5 12:11:14 Eruption 930310072 Active 2024 Roque holden MD [address], [address], [place], [address] , [facility] [employer] [facility] 15:41:40 Notes:Medical History: Cereb ral atrophy Depression/Anxiety [...] knee replacement 2012 Exploratory laparotomy for SBO 2013 AICD placement 2021 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 Procedures Surgical History Date Name Laterality Status Provider Name and Address Organization Details Recorded Time 04/17/20 Chronic care management services completed Jaclyn Huizar [place] [employer] [facility] [address] 06/03/2024 19:11:19 02/26/20 Chronic care management services completed Ara Ozuna RN [facility] [employer] [facility] 02/26/2024 14:23:59 01/16/20 Chronic care management services completed Ara Ozuna RN [facility] [employer] [facility] 01/16/2024 18:07:23 12/06/19 Medicare Wellness CPT Code, subsequent completed PEREZ Hills [employer] [facility] [employer] [facility] 12/06/2023 14:03:15 04/10/20 Transitional_Care _Management completed THI Gatica [address], [address], [place], [address], [employer] [facility] [employer] [facility] 04/11/2023 08:40:38 Rotator cuff surgery completed Lorraine Morris MA [facility] [employer] [facility] 01/08/2024 11:34:43 operation on intestine completed Lorraine Morris MA [facility] [employer] [facility] 01/08/2024 11:35:04 Tonsillectomy completed Lorraine Morris MA [facility] [employer] [facility] 01/08/2024 11:35:14 Tubal Ligation completed Lorraine Morris MA [facility] [employer] [facility] 01/08/2024 11:37:01 Imaging Results None recorded. Procedure Notes None recorded. Medical Equipment None Reported. Allergies Allergen ID Allergen Name Allergen Category Reaction Reaction Severity Criticality Documentation Date Start Date Code Code System Note Provider Name and Address Organization Details Recorded Time 58490 tramadol medicatio n Not available Not available Not available 11/02/2022 60114 RxNorm Vomit ing Not Available [facility] 3 09:34:02 62210 Non-stero idal anti-infl ammatory agent (product) medicatio n hives moderate Not available 11/02/2022 00139 005 SNOMED Also CKD Not Available [facility] 3 09:34:02 34380 Lamictal medicatio n rash Not available Not available 11/02/2022 18468 2 RxNorm Not Available [facility] 3 09:34:02 44219 codeine medicatio n nausea Not available Not available 11/18/2022 2670 RxNorm MIKE Linder [address] [facility], [facility] [address], [place], [address] , [facility] [email or web address] 3 10:59:48 Medications Name Sig Start Date [...] e 50 mcg/actua tion nasal spray,kamari pension [place] 1 spray every day by intranas al [...] Not Available Not Available Not Available Fluvirin 45 mcg (15 mcg x 3)/0.5 mL intramusc ular suspensio n INJECT 0.5 ML INTRAMUS CULARLY DIRECTED . active Not Available Not Available No t Available Anti-Diar rheal 07/11 completed Not Available Not Available Not Available Afluria (PF) 45 mcg (15 mcg x 3)/0.5 mL IM syringe active Not Available Not Available Not Available Entresto 49 mg-51 mg tablet Take 1 tablet twice a day by oral route for 90 days. 06/12 completed Not Available Not Available Not Available Entresto 24 mg-26 mg tablet Take 1 tablet twice a day by oral route. 01/[address] Cary lujan 06/07/20 24 Not Available Not Available Not Available Vraylar 1.5 mg capsule Take 1 capsule every day by oral route. active Not Available Not Available No t Available Fluzone High-Dose 0805-1690 (PF) 180 mcg/0.5 mL intramusc ular syringe [...] Updated DateTime 5 167.64 cm 29.1 kg/m2 08648.6 3 g 97.2 [degF] 72 /min 114 mm[Hg] 68 mm[Hg] Susana Kimbrough [place] [employer] [facility] Door 6 5 14:12:09 Date Recorded Body height Body weight Body temperature Heart rate Oxygen saturation Oxygen saturation in Arterial blood by Pulse oximetry Systolic blood pressure Diastolic blood pressure Provider Name and Address Organization Details Last Updated DateTime 5 167.64 cm 82245.6 3 g 97.8 [degF] 64 /min 97 % 97 % 122 mm[Hg] 82 mm[Hg] Yana Kelley MA [place] [employer] [facility] [address] 5 15:22:27 Date Recorded Body height Body mass index (BMI) Body weight Body temperature Heart rate Systolic blood pressure Diastolic blood pressure Provider Name and Address Organization Details Last Updated DateTime 5 167.64 cm 29.5 kg/m2 96737.4 g 98.3 [degF] 72 /min 132 mm[Hg] 80 mm[Hg] P[place]Z [place] [employer] [facility] [employer] [facility] 5 10:50:14 Date Recorded Heart rate Oxygen saturation Oxygen saturation in Arterial blood by Pulse oximetry Heart rate Respiratory rate Provider Name and Address Organization Details Last Updated DateTime 5 91 /min 97 % 97 % 91 /min 15 /min Loreta Haque MD [address] [place] [address], [place] [address], [place], [address], [employer] [facility] [address] 5 15:15:58 Date Recorded Body height Body mass index (BMI) Body weight Body temperature Systolic blood pressure Diastolic blood pressure Provider Name and Address Organization Details Last Updated DateTime 5 167.64 cm 28.7 kg/m2 75232.4 4 g 98.3 [degF] 124 mm[Hg] 76 mm[Hg] Lauryn Raines MA [employer] [facility] [address] 5 14:56:19 Date Recorded Body height Body mass index (BMI) Body weight Body temperature Heart rate Oxygen saturation Oxygen saturation in Arterial blood by Pulse oximetry Systolic blood pressure Diastolic blood pressure Provider Name and Address Organization Details Last Updated DateTime 5 167.64 cm 28.6 kg/m2 14407.8 5 g 98.5 [degF] 68 /min 97 % 97 % 154 mm[Hg] 84 mm[Hg] Lorraine Morris [place] [facility] [employer] 5 14:50:37 Social History Question Answer Notes LastModified by Organization Details LastModified Time Tobacco Smoking Status Never Smoker Not Available [facility] 11/02/2022 09:26:39 Do You Have An Advance Directive? Yes [email or web address] Information not available 04/17/2024 Are You Blind Or Do You Have Difficulty Seeing? No [email or web address] Information not available 12/06/2023 Is Blood Transfusion Acceptable In An Emergency? Yes Information not available 01/16/2024 What Is Your Level Of Caffeine Consumption? Heavy 3 Coca Cola's Per Day [email or web address] Information not available 01/16/2024 In The 14 Days Before Symptom Onset, Have You Had Close Contact With A Laboratory-confi rmed COVID-19 While That Case Was Ill? No [id number] Information not available 11/02/2022 In The 14 Days Before Symptom Onset, Have You Had Close Contact With A Person Who Is Under Investigation For COVID-19 While That Person Was Ill? No [email or web address] [id number] Information not available 11/02/2022 Are You Deaf Or Do You Have Serious Difficulty Hearing? No Information not available 11/06/2023 What Type Of Diet Are You Following? REGULAR [id number] Information not available 11/02/2022 What Is The Highest Grade Or Level Of School You Have Completed Or The Highest Degree You Have Received? [id number] MIGRATION.030 [id number] Information not available 11/02/2022 Do You Have An Electrostatic Air Filter? No Information not available 01/01/2025 Have There Been Any Changes To Your Family Or Social Situation? Yes Lives With Roomate [email or web address] Information not available 01/16/2024 What Is The Fluoride Status Of Your Home? Unknown Information not available 11/06/2023 Are There Any Guns Present In Your Home? No [id number] [id number] Information not available 11/02/2022 Do You Have A Humidifier? No Information not available 01/01/2025 Do You Use Insect Repellent Routinely? No [id number] [id number] Information not available 11/02/2022 Where Do You Live? SingleLevelHouse [email or web address] Information not available 12/06/2023 Are You Able To Care For Yourself? No [email or web address] Information not available 12/06/2023 Are You Blind Or Do Yo Have Difficulty Seeing? No [email or web address] Information not available 12/06/2023 Are You Deaf Or Do You Have Serious Difficulty Hearing? No [email or web address] Information not available 12/06/2023 Live Alone Of With Others? With Others Information not available 12/06/2023 Do You Have A Medical Power Of Lpc? Yes Brother-Jone Moore [email or web address] Information not available 01/16/2024 Do You Have Moisture Problems In Your Home? No Information not available 01/01/2025 What Was The Date Of Your Most Recent Tobacco Screening? 01/13/2025 [email or web address] Information not available 01/13/2025 How Many Children Do You Have? 1 [email or web address] Information not available 01/16/2024 Do You Have Any Pets? Yes 2 Cats [email or web address] Information not available 01/16/2024 What Is Your Relationship Status? [id number].[id number] [id number] Information not available 11/02/2022 Do You Use Your Seat Belt Or Car Seat Routinely? Yes [id number].0301 [id number] Information not available 11/02/2022 Are You Sexually Active? No [email or web address] Information not available 01/16/2024 Do You Have Smoke And Carbon Monoxide Detectors In Your Home? Yes [id number] [id number] Information not available 11/02/2022 Are You Passively Exposed To Smoke? Yes Information not available 11/06/2023 Are There Any Smokers In Your House? Yes Information not available 11/06/2023 Do You Participate In Social Media? No MIGRATION.0301 [id number] Information not available 11/02/2022 Do You Use Sunscreen Routinely? No MIGRATION.0301 [id number] Information not available 11/02/2022 Has Tobacco Cessation Counseling Been Provided? No N/a Information not available 11/06/2023 Have You Recently Traveled Abroad? No MIGRATION.0301 [id number] Information not available 11/02/2022 Do You Have Difficulty Walking Or Climbing Stairs? Yes Uses A Walker [email or web address] Information not available 01/16/2024 Are You Currently In School? No MIGRATION.0301 [id number] Information not available 11/02/2022 Do You Have Any Dietary Restrictions? No MIGRATION.0301 [id number] Information not available 11/02/2022 Sex: Unknown Functional Status Question Answer Note LastModified by [employer] ion Details LastModified Time Do you use any illicit or recreational drugs? No MIGRATION.15491 [id number] Information not available 11/02/2022 Do you or have you ever used any other forms of tobacco or nicotine? No MIGRATION.90118 [id number] Information not available 11/02/2022 What is your level of alcohol consumption? None MIGRATION.67182 [id number] Information not available 11/02/2022 Are you currently employed? No [email or web address] Information not available 01/16/2024 Have you been exposed to chemicals or toxins? not that aware of Information not available 01/01/2025 Do you have transportation difficulties? No [email or web address] Information not available 12/06/2023 Are you able to walk? YESASSIST wheeled walker Information not available 11/06/2023 Do you have difficulty doing errands alone? Yes [email or web address] Information not available 12/06/2023 Are you able to care for yourself? No has caregiver that comes 9 hours/week [email or web address] Information not available 01/16/2024 Do you have difficulty dressing or bathing? No Information not available 11/06/2023 What is your exercise level? Occasional started doing exercises in chair 1 week ago & walks around house [email or web address] Information not available 01/16/2024 Mental Status Question Answer Note LastModified by Organiz[employer] ion Details LastModified Time Do you feel stressed (tense, restless, nervous, or anxious, or unable to sleep at night)? [id number] pt's s.o has chronic health problems and is reluctant to going to get care. This is making pt nervous. [email or web address] Information not available 02/26/2024 Do you have difficulty concentrating, remembering or making decisions? No [email or web address] Information not available 01/16/2024 Family History Relationship Description Onset Age of this Age Resolved Age Notes LastModified by Organization Details LastModified Time Mother Diabetes mellitus MIGRATION.858 [id number] Not available 11/02/2022 09:27:03 Mother Heart disease MIGRATION.972 [id number] Not available 11/02/2022 09:27:03 Father Hypertensive disorder MIGRATION.257 [id number] Not available 11/02/2022 09:27:03 Father Cerebrovascu lar [...] HAVE YOU BEEN HOSPITALIZED OR SEEN IN [facility] IN THE PAST YEAR ? Y Brain [...] Immunizations Vaccine Type Date Status Note Provider Nam e and Address Organization Details Recorded Time Influenza, split virus, quadrivalent, preservative 8 completed Jaclynher Huizar [facility] 02/28/2023 16:18:39 Influenza, split virus, quadrivalent, preservative 9 [facility]23 16:18:39 zoster recombinant 8 completed Jaclyn Bhupendra [facility] 02/28/2023 16:18:39 Influenza, high-dose, quadrivalent, PF 0 completed [facility] 02/28/2023 16:18:39 Influenza, high-dose, quadrivalent, PF 2 completed Jaclyn [place] [facility] 02/28/2023 16:18:39 Influenza, high-dose, quadrivalent, PF 1 completed Jaclyn Bhupendra [facility] 02/28/2023 16:18:39 COVID-19, mRNA, LNP-S, PF, 100 mcg/0.5mL dose or 50 mcg/0.25mL dose 1 completed Jaclyn Bhupendra [facility] 02/28/2023 16:18:39 COVID-19, mRNA, LNP-S, PF, 100 mcg/0.5mL dose or 50 mcg/0.25mL dose 1 completed Jaclyn [place] [facility] 02/28/2023 16:18:39 COVID-19, mRNA, LNP-S, PF, 100 mcg/0.5mL dose or 50 mcg/0.25mL dose 2 completed [facility]28/[facility]23 16:18:39 COVID-19, mRNA, LNP-S, PF, 100 mcg/0.5mL dose or 50 mcg/0.25mL dose 1 completed Jaclyn Bhupendra [facility] 02/28/2023 16:18:39 COVID-19, mRNA, LNP-S, bivalent, PF, 30 mcg/0.3 mL dose 2 completed Jaclynher Huizar [facility] 02/28/2023 16:18:39 pneumococcal polysaccharide PPV23 6 completed Jaclynher Huizar [facility] 02/28/2023 16:18:39 Pneumococcal conjugate PCV 13 8 completed Jaclyn Bhupendra [facility] 02/28/2023 16:18:39 Influenza, high-dose, trivalent, PF 6 completed Jaclynher Huizar [facility] 02/28/2023 16:18:39 Influenza, high-dose, trivalent, PF 9 completed Jaclynher Huizar [facility] 02/28/2023 16:18:39 Influenza, high-dose, trivalent, PF 7 completed Jaclynher Huizar [facility] 02/28/2023 16:18:39 Influenza, split virus, trivalent, preservative 4 completed Jaclynher Huizar [facility] 02/28/2023 16:18:39 Influenza, split virus, trivalent, PF 5 completed Jaclynher Huizar [facility] 02/28/2023 16:18:39 Influenza, high-dose, quadrivalent, PF 3 completed [place] [facility] 14:07:35 COVID-19, mRNA, LNP-S, PF, 50 mcg/0.5 mL 4 completed Susana Kimbrough RMA [facility] 09/16/2024 14:07:35 COVID-19, mRNA, LNP-S, PF, 50 mcg/0.5 mL 3 completed Susana Kimbrough RMA [facility] 09/16/2024 14:07:35 Influenza, high-dose, trivalent, PF 4 completed Susana Kimbrough, [facility], [facility] [employer] [facility] 09/16/2024 14:07:35 Past Encounters Encounter ID Performer Location Encounter Start Date Encounter Closed Date Diagnosis/Indication Diagnosis SNOMED-CT Code Diagnosis ICD10 Code Diagnosis Note [id number] Lana Tovar MD [facility] Primary [facility] [place] [address] [place] [address] 01/11/2021 00:00:00 01/20/2021 09:33:59 [id number] Lana Tovar MD [facility] Primary [facility] [place] [address] [place] [address] 01/26/2021 00:00:00 01/26/2021 10:59:18 [id number] Lana Tovar MD [facility] Primary [facility] [place] [address] [place] [address] 02/10/2021 00:00:00 03/03/2021 09:55:56 [id number] Lana Tovar MD [facility] Primary [facility] [place] [address] [place] [address] 02/17/2021 00:00:00 02/17/2021 13:19:19 [id number] Lana Tovar MD [facility] Primary [facility] [place] [address] [place] [address] 02/24/2021 00:00:00 03/02/2021 13:52:08 [id number] Lana Tovar MD [facility] Primary [facility] [place] [address] [place] [address] 04/20/2021 00:00:00 05/03/2021 19:35:15 [id number] Lana Tovar MD [facility] Primary [facility] [place] [address] [place] [address] 05/06/2021 00:00:00 05/06/2021 21:08:51 [id number] Lana Tovar MD [facility] [place] [address] [place] [address] 06/09/2021 00:00:00 06/09/2021 10:51:15 [id number] Lana Tovar MD [facility] [place] [address] [place] [address] 09/29/2021 00:00:00 09/29/2021 13:17:41 [id number] Lana Tovar MD [facility] [place] [address] [place] [address] 01/05/2022 00:00:00 01/28/2022 13:08:49 [id number] Lana Tovar MD [facility] [place] [address] [place] [address] 01/19/2022 00:00:00 02/01/2022 08:13:46 [id number] Lana Tovar MD [facility] [place] [address] [place] [address] 02/02/2022 00:00:00 03/01/2022 14:05:51 [id number] [facility] José Powers [address] [facility] [address] [place] [address] 02/14/2022 00:00:00 02/15/2022 11:15:58 [id number] Lana Tovar MD [facility] [place] [address] [place] [address] 03/15/2022 00:00:00 04/01/2022 13:22:41 [id number] Lana Tovar MD [facility] [place] [address] [place] [address] 04/25/2022 00:00:00 04/25/2022 09:40:17 [id number] MIKE iLnder [address] [place] [address] 05/30/2022 00:00:00 05/30/2022 12:27:10 [id number] Lana Tovar MD [address] [place] [address] 08/10/2022 00:00:00 09/01/2022 11:27:36 [id number] MIKE Lidner [address] [place] [address] 11/18/2022 10:40:48 11/18/2022 11:55:25 Cough 71532271 R05.9 Pt. very congested with a wheezing cough. Covid negative.A dvised to take medication s as directed. Can continue otc medication s as needed.If no improvemen t over next 1-2 weeks will evaluate with CXR. [id number] MIKE Linder [address] [place] [address] 12/28/2022 11:41:11 12/28/2022 12:36:50 Long-term current use of anticoagulant 725174828 Z79.01 Currently on Warfarin 3mg daily. Bilateral cramp of muscle of lower limbs [id number] 8041813 R25.2 She states she has had symptoms for the last 1-2 weeks. No swelling/r edness. No pain during visit.Most likely benign muscle cramps.Esa l check labs today. Hypothyroidism 62094925 E03.9 Vitamin D deficiency 347 50379 E55.9 Renal mass 954537336 N28 .89 MRI scheduled for February. Cobalamin deficiency 190 726279 E53.8 [id number] Lana Tovar MD [address] [place] [address] 02/20/2023 15:13:05 02/20/2023 15:49:01 Essential hypertension 77133133 I10 Long-term current use of anticoagulant 688257950 Z79.01 Vitamin D deficiency 347 38302 E55.9 Hypothyroidism 54675250 E03.9 Cobalamin deficiency 190 294165 E53.8 [id number] Lana Tovar MD [facility] Primary Care [facility] [address] [facility] [address] [place] [address] 02/23/2023 15:44:37 02/23/2023 16:52:15 Long-term current use of anticoagulant 152584315 Z79.01 [id number] Lana Tovar MD [facility] Care [facility] [address] [facility] [address] [place] [address] 03/28/2023 15:59:26 03/28/2023 16:16:31 [id number] JUAN LUIS G[facility]P-Najma [address] [place] [address] 04/10/2023 16:00:52 04/10/2023 17:07:19 Dizziness 428751756 R42 Has been an issue as long as she has been taking the carvedilol (not as prescribed )Will give trial meclizine Malaise and fatigue 2717 87781 R53.81 Pt was taking carvedilol 25mg BID when she was supposed to be taking 12.5mg BIDNotes no swelling in her ankles-BP seems to be stable currentlyW ill hold off on starting lasix at this time.Educa misti to take 1/2 tab of carvedilol in the morning and 1/2 tab in the evening [id number] Roque holden MD [facility] Internal Med Yanni pretty [address] [facility] [place] [address] 11/06/2023 11:49:23 11/06/2023 12:47:14 Screening - NAD 294673080 Z13.9 C-scope: Get this if not done, [...] understand ing of the above Essential hypertension 32576651 I10 On coreg 12.5mg bidOn entresto 49-51mg bidOn spironolac tone 25mg daily Hypothyroidism 95911710 E03.9 On levothyrox ine 150mcgs dailyGet labs Persistent insomnia 1919 86322 G47.[address] Amaya Moderate r ecurrent major depression 11463373 F33.1 On clonazepam 0.5mg tidOn venlafaxin e ER 37.5mg dailyOn vralar 1.5m daily Nonischemi c congestive cardiomyopathy 8582490951 [address] Ceja cardiology [...] one week for INr Screening mammography 24 742280 Z12.31 Screening for osteoporosis 929817852 Z13.820 Gynecologi c examination 19592352 Z01.419 Serum betty min B12 below reference range 453568303 R79.89 On b12, get labs [id number] Roque holden MD [facility] Internal Med Yanni sanchez [address] [facility] y , [place] [address] 12/06/2023 13:58:41 12/06/2023 14:47:31 Adult health examination 230150719 Z00.00 Screening for disorder 918635974 Z13.9 Anticoagulant therapy 18 8652709 Z79.01 Screening - NAD 46919381 3 Z13.9 C-scope: Get this if not [...] understand ing of the above Essential hypertension 98523952 I10 On amiodarone 200mg dailyOn coreg 12.5mg bidOn entresto 49-51mg bidOn spironolac tone 25mg daily Hypothyroidism 40575312 E03.9 On levothyrox ine 150mcgs dailyGet labs Persistent insomnia 1919 50562 G47.09 On trazodoneG iven by Dr Jose Luis Bae r ecurrent major depression 80466822 F33.1 On clonazepam 0.5mg tidOn venlafaxin e ER 37.5mg dailyOn vralar 1.5m daily Nonischemi c congestive cardiomyopathy 4737692654 [address] Ceja cardiology , last OV 08/10/2023 , f/u in 3 monthsS/p life vest 2021S/p ICD in [place] BapStarted on entresto, amiodarone [...] one week for INr Screening mammography 24 354321 Z12.31 Screening for osteoporosis 294722547 Z13.820 Gynecologi c examination 29522513 Z01.419 Serum betty min B12 below reference range 192917909 R79.89 On b12, get labs Abdominal pain 07246197 R10.[address] abd donePrior hx of surgery to the abdomen, she is not very sure why she had to have surgeryMay need to see GI [id number] Murtuza Bahrainwal a, MD [facility] Internal Med Y[place] sanchez [address] [facility] [address] , [place] [address] 12/13/2023 14:10:26 12/13/2023 15:22:58 Screening - NAD 383558318 Z13.9 C-scope: Get this if not done, [...] understand ing of the above Essential hypertension 84938109 I10 On amiodarone 200mg dailyOn coreg 12.5mg bidOn entresto 49-51mg bid, renewed 12/13/2023 On spironolac tone 25mg daily Hypothyroidism 16059407 E03.9 On levothyrox ine 150mcgs dailyGet labs Persistent insomnia 1919 23104 G47.09 On trazodoneG iven by Dr Amaya Moderate r ecurrent major depression 51626523 F33.1 On clonazepam 0.5mg tidOn venlafaxin e ER 37.5mg dailyOn vralar 1.5m daily Nonischemi c congestive cardiomyopathy 4690816891 [address] Ceja cardiology [...] tone 25mg dailyOn coumadin Gynecologi c examination 62597330 Z01.419 Serum betty min B12 below reference range 431525216 R79.89 On b12, get labs Abdominal pain 43593205 R10.[address] abd donePrior hx of surgery to the abdomen, she is not very sure why she had to have surgeryMay need to see GI CT A/P: 12/13/2023 : Hiatal hernia, needs to see GI Hiatal hernia 94342059 K 44.9 CT A/P: 12/13/2023 : Hiatal hernia, needs to see GI Dizziness 377237654 R42 [place] ERXR Chest 12/08/2023 S/p CTA 12/08/2023 Lung nodules noted Multiple n odules of lung 169483382 R91.8 CTA 12/08/2023 at [facility] get CT chest and see pulmonary Mass of neck 407848847 R 22.1 Fullness noted in the yordy supraclavi cular areaS/P CTA done 12/08/2023 Get US neck and she now will see Dr Gannon her cardiologi st [id number] Roque holden MD [facility] Internal Med Yanni sanchez [address] [facility] [place] [address] 01/08/2024 11:22:08 01/08/2024 12:06:29 Screening - NAD 008373062 Z13.9 C-scope: Get this if not done, [...] understand ing of the above Essential hypertension 96440162 I10 On amiodarone 200mg dailyOn coreg 12.5mg bid, advised to not take the 25mg 1/2 tab bid dose 01/08/2024 On entresto 49-51mg bid, renewed 12/13/2023 On spironolac tone 25mg daily Hypothyroidism 07056944 E03.9 On levothyrox ine 150mcgs dailyGet labs Persistent insomnia 1919 60896 G47.09 On trazodoneG iven by Dr Amaya Moderate r ecurrent major depression 20391596 F33.1 On clonazepam 0.5mg tidOn venlafaxin e ER 37.5mg dailyOn vralar 1.5m dailySees Dr Amaya, not suicidal or homicidal Nonischemi c congestive cardiomyopathy 0331276933 [address] Ceja cardiology [...] spironolac tone 25mg dailyOn coumadin D/c from [facility] 01/03/2024 for SOB, acute respirator y failure [...] with her CG Claudette Gynecologi c examination 14204228 Z01.419 Serum betty min B12 below reference range 413502800 R79.89 On b12, get labs Abdominal pain 04612653 R10.[address] abd donePrior hx of surgery to the abdomen, she is not very sure why she had to have surgeryMay need to see GI CT A/P: 12/13/2023 : Hiatal hernia, needs to see Timothy Fairchild GI: To get EGD, take PPI an dfamotidin e, take OTC mg PRN for bloating, may need a course of xifaxan Hiatal hernia 33800239 K 44.9 CT A/P: 12/13/2023 : Hiatal hernia, needs to see GIToday 01/08/2024 , states that she is to get the EGD this Monday Dizziness 753611343 R42 [place] ERXR Chest 12/08/2023 S/p CTA 12/08/2023 Lung nodules noted Multiple n odules of lung 917908333 R91.8 CT[facility] and see pulmonary Mass of neck 072455796 R 22.1 Fullness noted in the yordy supraclavi cular areaS/P CTA done 12/08/2023 Get US neck and she now will see Dr Gannon her cardiologi [id number] Roque holden MD [facility] Internal Med [place] [address] [place] [address] 01/16/2024 17:11:21 05/09/2024 11:39:35 Nonischemic congestive cardiomyopathy 1299971138 04 I42.0 Moderate r ecurrent major depression 65729813 F33.1 Osteoarthr itis of knee 069935918 M17.9 [id number] Roque holden MD [facility] Internal Med [address] [place] [address] 02/26/2024 13:42:40 05/22/2024 11:15:01 Nonischemic congestive cardiomyopathy 5765434736 04 I42.0 Essential hypertension 22658944 I10 [id number] Loreta Haque MD [facility] Pulmonolo gy [place] [address] [place] [address], [facility] [address] [place] [address] 03/20/2024 15:22:21 03/21/2024 08:27:20 Dyspnea on exertion 44564193 R06.09 R05.9 T78.40XA D89.9 Multiple n odules of lung 374025192 R91.8 [id number] Roque holden MD [facility] Internal Med [address] [place] [address] 04/17/2024 18:28:30 06/03/2024 19:29:01 Dyspnea on exertion 76055961 R06.09 R05.9 T78.40XA D89.9 Moderate r ecurrent major depression 88489201 F33.1 Essential hypertension 56964580 I10 [id number] Roque holden MD [facility] Internal Med [place] sanchez [address] [facility] [place] [address] 06/12/2024 14:13:38 06/12/2024 15:19:26 Screening - NAD 894316087 Z13.9 C-scope: Get this if not done, [...] understand ing of the above Essential hypertension 25150267 I10 On amiodarone 200mg dailyOn coreg 25mg bid, advised to not take the 25mg 1/2 tab bid dose 01/08/2024 On entresto 49-51mg bid, now should be on 24/[address] Ceja 06/07/2024 On spironolac tone 25mg daily Hypothyroidism 63320773 E03.9 On levothyrox ine 150mcgs daily,misael wedGet labs Persistent insomnia 1919 38982 G47.09 On trazodoneG iven by Dr Amaya Moderate r ecurrent major depression 27998095 F33.1 On clonazepam 0.5mg tidOn venlafaxin e ER 37.5mg dailyOn vraylar 1.5m dailySees Dr Jose Luis, not suicidal or homicidal Nonischemi c congestive cardiomyopathy 8883819985 [address] Ceja cardiology [...] spironolac tone 25mg dailyOn coumadin D/c from [facility] 01/03/2024 for SOB, acute respirator y failure [...] f/u in 3 months Gynecologi c examination 54785588 Z01.419 Serum betty min B12 below reference range 053102587 R79.89 On b12, get labs Abdominal pain 56993344 R10.[address] abd donePrior hx of surgery to the abdomen, she is not very sure why she had to have surgeryMay need to see GI CT A/P: 12/13/2023 : Hiatal hernia, needs to see Timothy Fairchild GI: To get EGD, take PPI an dfamotidin e, take OTC [id number] mg PRN for bloating, may need a course of xifaxan EGD 01/10/2024 : Dr Fairchild Hiatal hernia 69326126 K 44.9 CT A/P: 12/13/2023 : Hiatal hernia, needs to see GI S/p EGD 01/10/2024 Dizziness 923055122 R42 [place] ERXR Chest 12/08/2023 S/p CTA 12/08/2023 Lung nodules noted Multiple n odules of lung 153096791 R91.8 [facility] Law Haque 03/20/2024 Mass of neck 448640803 R 22.1 Fullness noted in the yordy supraclavi cular areaS/P CTA done 12/08/2023 Get US neck and she now will see Dr Gannon her cardiologi st US neck 04/22/2024 : Benign Dental caries 58480119 K 02.9 Dental caries noted on the upper teethDo not take the fosamax 2 weeks prior to dental procedures !Get on augmentin as per requestRef er to dental surgeon as per her requestWil l have to discuss with her cardiologi st regarding use of coumadin [id number] Roque holden MD [facility] Primary Care [address] [place] [address] 09/16/2024 13:57:07 09/16/2024 14:42:29 Screening - NAD 615813560 Z13.9 C-scope: Get this if not done, [...] understand ing of the above Essential hypertension 17507430 I10 On amiodarone 200mg dailyOn coreg 25mg bid 1/[address] Huitron n entresto 49-51mg bid, now should be on bid as per Dr Ceja 06/07/2024 On spironolac tone 25mg dailyOn K Hypothyroidism 88876329 E03.9 On levothyrox ine 150mcgs daily,imsael wedGet labs Persistent insomnia 1919 71658 G47.09 On trazodone 150mg 1.[address] Amaya Moderate r ecurrent major depression 81779563 F33.1 On clonazepam 0.5mg tidOn venlafaxin e ER 37.5mg dailyOn vraylar 1.5m dailySees Dr Amaya, not suicidal or homicidal Nonischemi c congestive cardiomyopathy 1904859304 [address] Ceja cardiology [...] spironolac tone 25mg dailyOn coumadin D/c from [facility] 01/03/2024 for SOB, acute respirator y failure [...] with her cardiologi st Gynecologi c examination 70835691 Z01.419 Serum betty min B12 below reference range 309743799 R79.89 On b12, get labs Abdominal pain 74812712 R10.[address] abd donePrior hx of surgery to the abdomen, she is not very sure why she had to have surgeryMay need to see GI CT A/P: 12/13/2023 : Hiatal hernia, needs to see Timothy Fairchild GI: To get EGD, take PPI an dfamotidin e, take OTC [id number] mg PRN for bloating, may need a course of xifaxan EGD 01/10/2024 : Dr Fairchild Hiatal hernia 99729843 K 44.9 CT A/P: 12/13/2023 : Hiatal hernia, needs to see GI S/p EGD 01/10/2024 Dizziness 189483203 R42 [place] ERXR Chest 12/08/2023 S/p CTA 12/08/2023 Lung nodules noted Multiple n odules of lung 189437997 R91.8 CT[facility] NegDr Shabnam 03/20/2024 Mass of neck 690547132 R 22.1 Fullness noted in the yordy supraclavi cular areaS/P CTA done 12/08/2023 Get US neck and she now will see Dr Gannon her cardiologi st US neck 04/22/2024 : Benign Dental caries 50515172 K 02.9 Dental caries noted on the [...] well Pain of ri ght hip joint 9891188379 22518 M25.551 S/p fallSeen in the UC, treated with gabapentin and flexerill, not taking at this timeGet on MDP, get Xrays and refer to Dr Prince as she does not want to be treated in [facility] Tear of skin 199072209 T 14.8XXA L forearmHea ling, no bleeding noted, no swelling or redness, advised to keep area clean and dry [id number] Roque holden MD [facility] Primary [facility] [address] [facility] [address] [place] [address] 10/14/2024 14:46:11 10/14/2024 16:10:33 Screening - NAD 500825979 Z13.9 C-scope: Get this if not done, [...] understand ing of the above Essential hypertension 76134708 I10 On amiodarone 200mg dailyOn coreg 25mg daily Dr Huitron n entresto 49-51mg bid, now should be on 24/ bid as per Dr Ceja 06/07/2024 On spironolac tone 25mg dailyOn KSees Dr Gannon Hypothyroidism 61249543 E03.9 On levothyrox ine 150mcgs daily,misael wedGet labs Persistent insomnia 1919 21651 G47.09 On trazodone 150mg 1.[address] Amaya Moderate r ecurrent major depression 75241968 F33.1 On clonazepam 0.5mg tidOn venlafaxin e ER 37.5mg dailyOn vraylar 1.5m dailySees Dr Amaya, not suicidal or homicidal Nonischemi c congestive cardiomyopathy [id number] [address] Ceja cardiology [...] spironolac tone 25mg dailyOn coumadin D/c from [facility] 01/03/2024 for SOB, acute respirator y failure [...] f/u in 6 months Gynecologi c examination [id number] Z01.419 Serum betty min B12 below reference range 004883774 R79.89 On b12, get labs Abdominal pain 02557077 R10.[address] abd donePrior hx of surgery to the abdomen, she is not very sure why she had to have surgeryMay need to see GI CT A/P: 12/13/2023 : Hiatal hernia, needs to see Timothy Fairchild GI: To get EGD, take PPI an dfamotidin e, take OTC [id number] mg PRN for bloating, may need a course of xifaxan EGD 01/10/2024 : Dr Fairchild Hiatal hernia 79683076 K 44.9 CT A/P: 12/13/2023 : Hiatal hernia, needs to see GI S/p EGD 01/10/2024 Dizziness [id number] R42 [place] [facility] Chest 12/08/2023 S/p CTA 12/08/2023 Lung nodules noted Multiple n odules of lung 573642029 R91.8 [place] : Law Haque 03/20/2024 Mass of neck 254891825 R 22.1 Fullness noted in the yordy supraclavi cular areaS/P CTA done 12/08/2023 Get US neck and she now will see Dr Gannon her cardiologi st US neck 04/22/2024 : Benign Dental caries 53085783 K 02.9 Dental caries noted on the [...] well Pain of ri ght hip joint 3727688608 50272 M25.551 S/p fallSeen in the UC, treated with gabapentin and flexerill, not taking at this timeGet on MDP, get Xrays and refer to Dr Prince as she does not want to be treated in [facility] OV 10/14/2024 :Xr hip: 09/16/2024 : Neg Tear of skin 449208883 T 14.8XXA L forearmHea ling, no bleeding noted, no swelling or redness, advised to keep area clean and dry Chronic ki dney disease 010538601 N18.9 Get a referral to nephrology Hyperkalemia 51208580 E8 7.5 Repeat the K [id number] Roque holden MD [facility] [address] [place] [address] 11/18/2024 10:13:18 11/18/2024 12:24:26 Screening - NAD 036962100 Z13.9 C-scope: Get this if not done, denies any complaints , states that she does not want any more tests, understand s the risks for CRCDid see GI Dr Fairchild 12/18/2023 , no need for C-scope till her 10 year markEGD 01/10/2024 MALGORZATA Fairchild Mammogram: 12/13/2023 : Neg DEXA: 12/13/2023 : OP: On alendronat e, knows how to take this medicine WWE: Get this done Get yearly fluGet tdap if not doneUTD on PCVGet shingrixGe t RSV vaccineGet COVID 19 vaccine and its boosters RTC in 23 months, do labs, ER if worse, she and Pippa did verbalize her understand ing of the above Essential hypertension 67975616 I10 On amiodarone 200mg daily, understand s the side effects for this medication , including thyroid abnormalit iesOn coreg 25mg daily Dr Huitron n entresto 49-51mg bid, now should be on [address] Ceja 06/07/2024 On spironolac tone 25mg dailyOn KSees Dr Gannon Hypothyroidism 20724781 E03.9 On levothyrox ine 150mcgs daily,misael wedGet labs Persistent insomnia 1919 08249 G47.09 On trazodone 150mg 1.[address] Amaya Moderate r ecurrent major depression 05843559 F33.1 On clonazepam 0.5mg tidOn venlafaxin e ER 37.5mg dailyOn vraylar 1.5m dailySees Dr Amaya, not suicidal or homicidal Nonischemi c congestive cardiomyopathy [id number] [address] Ceja cardiology [...] spironolac tone 25mg dailyOn coumadin D/c from [facility] 01/03/2024 for SOB, acute respirator y failure [...] INR, since [facility] she will come in tomorrow to [facility] in [place] Gynecologi c examination 92834436 Z01.419 Serum betty min B12 below reference range 589095091 R79.89 On b12, get labs Abdominal pain 35792871 R10.[address] abd donePrior hx of surgery to the abdomen, she is not very sure why she had to have surgeryMay need to see GI CT A/P: 12/13/2023 : Hiatal hernia, needs to see Timothy Fairchild GI: To get EGD, take PPI an dfamotidin e, take OTC dwichvs959 mg PRN for bloating, may need a course of xifaxan EGD 01/10/2024 : Dr Fairchild Hiatal hernia 12119820 K 44.9 CT A/P: 12/13/2023 : Hiatal hernia, needs to see GI S/p EGD 01/10/2024 Dizziness [id number] R42 [place] ER[facility] Chest 12/08/2023 S/p CTA 12/08/2023 Lung nodules noted Multiple n odules of lung 957298122 R91.8 CT[place]23 [place] 04/22/[facility] : NegDr Shabnam 03/20/2024 Mass of neck 642536708 R 22.1 Fullness noted in the yordy supraclavi cular areaS/P CTA done 12/08/2023 Get US neck and she now will see Dr Gannon her cardiologi st US neck 04/22/2024 : Benign Dental caries 77066232 K 02.9 Dental caries noted on the upper teethDo not take the fosamax 2 weeks prior to dental procedures !Get on augmentin as per requestRef er to dental surgeon as per her requestEsa blacn have to discuss with her cardiologi st regarding use of coumadin OV 09/16/2024 : Now states that she has 'pulled out all' the teeth, does well Pain of ri ght hip joint 4523604583 64795 M25.551 S/p fallSeen in the UC, treated with gabapentin and flexerill, not taking at this timeGet on MDP, get Xrays and refer to Dr Prince as she does not want to be treated in [facility] OV 10/14/2024 :Xr hip: 09/16/2024 : Neg Tear of skin 969558450 T 14.8XXA L forearmHea ling, no bleeding noted, no swelling or redness, advised to keep area clean and dry Chronic ki dney disease 640562915 N18.9 Get a referral to nephrology Hyperkalemia 13722854 E8 7.5 Repeat the CMP Nausea 893746212 R11.0 Is on chronic use of zofran, [...] till she discusses this with her psychiatri Rashida states that her mother 'likes to doctor herself'Sh e should see her GI, s/p EGD done already, GI referral provided to her today 11/18/2024 Acute urin sherrill tract infection 488752830 N39.0 Unable to provide any urine for UAStart on amoxicilli n 500mg po tidNotify if not better Atrial fibrillation 4943 6004 I48.91 [id number] Loreta Haque MD [facility] [address], [address] [address] 01/01/2025 14:42:18 01/03/2025 12:15:30 Dyspnea on exertion 43993534 R06.09 R05.9 T78.40XA D89.9 Mild chron ic obstructive pulmonary disease 671509275 J44.9 [id number] Roque holden MD [facility] Kelsey sanchez [address] [facility] [address] [place] [address] 01/13/2025 14:26:53 01/13/2025 16:02:13 Screening - NAD 234147790 Z13.9 C-scope: Get this if not done, [...] her cardiology , told to come to [facility] for her INR Essential hypertension 30723315 I10 On amiodarone 200mg daily, understand s the side effects for this medication , including thyroid abnormalit iesOn coreg 25mg daily Dr Huitron n entresto bid as per Dr Ceja 06/07/2024 On lasixOn spironolac tone 25mg dailyOn KSees Dr Gannon as per her history 01/13/2025 , she does have an apt in 02/2025 Hypothyroidism 81935321 E03.9 On levothyrox ine 150mcgs daily,misael wedGet labs Persistent insomnia 1919 54743 G47.09 On trazodone 150mg 1.[address] Amaya Moderate r ecurrent major depression 18247155 F33.1 On clonazepam 0.5mg tidOn venlafaxin e ER 37.5mg dailyOn vraylar 1.5m dailySees Dr Amaya, not suicidal or homicidal Nonischemi c congestive cardiomyopathy 3450831647 [address] Ceja cardiology , last OV 08/10/2023 , f/u in 3 monthsS/p life vest /p ICD in [place] BapStarted on entresto, amiodarone On amiodarone 200mg 2 tabs daily, should be taking 200mg daily as per Dr Ceaj cardiologi st note 08/10/2023 , MA did call Dr Ceja' s office and confirmed she should be on one tablet, this was conveyed to Jessica coreg 12.5mg bidOn entresto 49-51mg bidOn spironolac tone 25mg dailyOn coumadin D/c from [facility] 01/03/2024 for SOB, acute respirator y failure [...] INR, since the INR machine not in [facility] office she will come in tomorrow to [facility] in [place] OV 01/13/2025 : Get INR as scheduled, will come to [facility] on 01/15/2025 Gynecologi c examination 43897918 Z01.419 Serum betty min B12 below reference range 673423513 R79.89 On b12, get labs Abdominal pain 44490939 R10.[address] abd donePrior hx of surgery to the abdomen, she is not very sure why she had to have surgeryMay need to see GI CT A/P: 12/13/2023 : Hiatal hernia, needs to see Timothy Fairchild GI: To get EGD, take PPI an dfamotidin e, take OTC mg PRN for bloating, may need a course of xifaxan EGD 01/10/2024 : Dr Fairchild Hiatal hernia 60133093 K 44.9 CT A/P: 12/13/2023 : Hiatal hernia, needs to see GI S/p EGD 01/10/2024 Dizziness 378779572 R42 [place] ER[facility] Chest 12/08/2023 S/p CTA 12/08/2023 Lung nodules noted Multiple n odules of lung 247311076 R91.8 CT[place] [place] 04/22/[facility] : Law Haque 03/20/2024 Dr Haque 01/22/2025 next apt On albuterolS ee Dr Haque Mass of neck 974837988 R 22.1 Fullness noted in the yordy supraclavi cular areaS/P CTA done 12/08/2023 Get US neck and she now will see Dr Gannon her cardiologi st US neck 04/22/2024 : Benign Dental caries 96133149 K 02.9 Dental caries noted on the upper teethDo not take the fosamax 2 weeks prior to dental procedures !Get on augmentin as per requestRef er to dental surgeon as per her requestEsa l have to discuss with her cardiologi st regarding use of coumadin OV 09/16/2024 : Now states that she has 'pulled out all' the teeth, does well Pain of ri ght hip joint 3772728950 41544 M25.551 S/p fallSeen in the UC, treated with gabapentin and flexerill, not taking at this timeGet on MDP, get Xrays and refer to Dr Prince as she does not want to be treated in [facility] OV 10/14/2024 :Xr hip: 09/16/2024 : Neg Tear of skin 267961704 T 14.8XXA L forearmHea ling, no bleeding noted, no swelling or redness, advised to keep area clean and dry Chronic ki dney disease 732469907 N18.[address] Dela Cruz has given her the zofran Hyperkalemia 21515232 E8 7.5 Repeat the CMP Nausea 898173166 R11.0 Is on chronic use of zofran, [...] till she discusses this with her psychiatri Rashida states that her mother 'likes to doctor herself'Sh e should see her GI, s/p EGD done already, GI referral provided to her today 11/18/2024 OV 01/13/2025 : Is NOT wanting to see GI Screening mammography 24 810522 Z12.31 Eruption 970928690 R21 Red itchy rash in the groinNot [...] Briceno Member ID Guarantor Name 02/07/2025 1 [facility] - MEDICARE COMPLETE - CHOICE PLAN 2 (MEDICARE REPLACEMENT REGIONAL PPO) [id number] Yi Martino [id number] Yi Martino Notes Date Note Type Note [...] is doing well today Roque Reddy MD [address] [facility], [facility] [address], [place], [address], [facility] [employer] 09/27/2024 15:31:44 10/14/2024 text/html OV 11/06/2023: H [...] do the labs Roque Reddy MD [address] [facility], [address], [place], [address], [facility] 10/14/2024 16:12:07 11/18/2024 text/html OV 11/06/2023: H [...] tablets' a month Roque Reddy MD [address] [facility], [facility] [address], [place], [address], [facility] 11/20/2024 17:02:33 01/01/2025 text/html Primary care/Ref erring [...] changing clothesAlleviating factors: rest Modified [employer] [place] ([facility]) Dyspnea Scale - Grade 2Grade 0 [...] slight chance of dozing. Loreta Haque MD [address] [place] [address], [facility] [address], [place], [address], [facility] [email or web address] 01/01/2025 15:24:31 01/13/2025 text/html OV 11/06/2023: H [...] and is on albuterol Roque Reddy MD [address] [place] [address], [facility] [address], [place], [address], [facility] [employer] 01/14/2025 19:24:11 OBGyn Episode No OBEpisode recorded.
--- OUTSIDE RECORDS SUMMARY | 2025-02-20 12:34 | XMS_ITS | Clinical Summary ---
Author Organization [facility] Address [address] [address] Phone Care Team Providers Care Big Data Analytics Lead Name Role Phone Lana Tovar MD Primary [...] to complete this topic Insurance MEDICARE C [facility] Care Teams Big Data Analytics Lead Relationship Specialty Start Date End Date Lana Tovar MD [address] [place] [address] PCP - General Family Medicine 12/23/16
--- OUTSIDE RECORDS SUMMARY | 2025-02-20 12:34 | XMS_ITS | Encounter Summary ---
Author Organization [facility] Healthcare Address [address] [place] [address] Care Team Providers Care Cementing Machine Operator Name Role Phone Bandar Gaffney MD Unavailable [phone] Dillan Reddy MD Primary Care Provide r Encounter Details Date Type Department Care Team (Late st Contact Info) Description 12/04/[address] [facility] Medical Group Cardiology [address] [facility] [address] [facility] [address] [place] [phone] Samy Ceja MD [address] [facility] [address] [place] [address] Social History Tobacco Use Types [...] often do you attend chur ch or taoism services? 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
--- OUTSIDE RECORDS SUMMARY | 2025-02-20 12:34 | XMS_ITS | Referral Summary ---
Author Organization [place] [address] [place] [address] Care Team Providers Care Education Rep Name Role Phone Bandar Gaffney MD Unavailable [phone] Dillan Reddy MD Primary Care Provide r Encounters Date Type Department Care Team Description 02/19/2025 1:30 PM CDT Ancillary Procedure [facility] Medical [facility] Cardiology [address] [place] [address] [address] [place] [phone] Dilated cardiomyopathy (HCC); VT (ventricular tachycardia) (HCC); ICD (implantable cardioverter-defibrill ator), biventricular, in situ; Paroxysmal atrial fibrillation (HCC) 02/10/2025 Telephone [facility] Cardiology [address] [place] [address] [place] [phone] Samy Ceja MD 01/13/2025 Telephone [facility] Cardiology [address] [place] [address] [address] [place] [address] Samy Ceja MD 01/06/2025 10:00 AM CDT Office Visit [facility] Medical Group Cardiology at [address] [place] [address] Samy Ceja MD Dilated cardiomyopathy (HCC) (Primary Dx) 01/02/2025 Telephone [facility] Cardiology [address] [place] [address] [address] [place] [address] Samy Ceja MD 01/01/2025 Telephone [facility] Medical Group Cardiology [address] [place] [address] Samy Ceja MD 12/04/2024 Telephone [facility] Medical Group Cardiology [address] [place] [address] Samy Ceja MD from Last [...] in situ 04/13/2021 Overview (04/21/2023): Dodge DDD [place] BI-V ICD imp on 04/12/21 for DCM, VT, Afib. Yeimy. Nora. [place] remote. 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 Gender Identity Not on file Sexual Orientation [...] on file Medical Devices Implanted Type Area Business Division Chair Device Identifier Shelf Expiration Date Model / Serial / Lot Dodge Vascular [id number] Defib Cardiac [id number] [place] Hf Df4 Is-4 Is-1 [facility] - [id number] - [id number] Implanted:Qty: 1 on 04/12/2021 by Bandar Gaffney MD at [facility] ICD Dodge Vascular [id number] 02/01/2023 C [id number] / [id number] / [employer] 7120q/65 Durata 7fr 65cm 2 Coil Df-4 True Bipolar Active Fixation - [id number] - [id number] Implanted:Qty: 1 on 04/12/2021 by Bandar Gaffney MD at [facility] Lead [employer] [id number] 02/01/2022 7120Q/65 / [id number] / [employer] 2088tc/52 Tendril Sts 6fr 52cm Is-1 Connector Active Fixation Bipolar Soft - [id number] - [id number] Implanted:Qty: 1 on 04/12/2021 by Bandar Gaffney MD at [facility] Lead [employer] [id number] 03/03/2024 2088TC/52 / [id number] / [employer] 1458q/86 Quartet 5fr [id number] 4 Electrode Is-4 Connector Steerable Tip - [id number] - [id number] Implanted:Qty: 1 on 04/12/2021 by Bandar Gaffney MD at [facility] Lead [employer] [id number] 02/02/2024 1458Q/86 / [id number] / Insurance [facility] MEDICARE ADVANTAGE UHC MEDICARE ADVANTAGE UHC MEDICARE ADVANTAGE Advance Directives For more information, please contact: [phone] * Full Code (Latest Code Status on File) Date Activated Date Inactivated Comments 03/23/2023 7:04 AM 03/26/2023 7:27 PM Care Teams Education Rep Relationship Specialty Start Date End Date Dillan Reddy MD [address] [place] [address] PCP - General Internal Medicine 11/09/23 Bandar Gaffney MD Consulting Physician Cardiology 04/13/21
--- OUTSIDE RECORDS SUMMARY | 2025-02-20 12:34 | XMS_ITS | Clinical Summary ---
Author Organization [facility] [place] [facility] [address] Address [address] [place] [address] Care Team Providers Care Emergency Response Technician Name Role Phone Badnar Gaffney MD Unavailable [phone] Dillan Reddy MD Primary Care Provide r [...] in situ 04/13/2021 Overview (04/21/2023): Dodge DDD [place] BI-V ICD imp on 04/12/21 for DCM, [...] Description 02/19/2025 1:30 PM CDT Ancillary Procedure [facility] Cardiology [address] [place] [address] [place] [address] Dilated cardiomyopathy (HCC); VT (ventricular tachycardia) (HCC); ICD (implantable cardioverter-defibrill ator), biventricular, in situ; Paroxysmal atrial fibrillation (HCC) 02/10/2025 Telephone [facility] Cardiology [address] [place] [address] [place] [address] Samy Ceja MD 01/13/2025 Telephone [facility] Cardiology [address] [place] [address] [place] [address] Samy Ceja MD 01/06/2025 10:00 AM CDT Office Visit [facility] Medical Group Cardiology at [address] [place] [phone] Samy Ceja MD Dilated cardiomyopathy (HCC) (Primary Dx) 01/02/2025 Telephone [facility] Cardiology [address] [place] [address] [place] [address] Samy Ceja MD 01/01/2025 Telephone [facility] Medical Group Cardiology [address] [place] [phone] Samy Ceja MD 12/04/2024 Telephone [facility] Medical Group Cardiology [address] [place] [phone] Samy Ceja MD from Last 3 Months [...] any clubs o r organizations such as scientologist groups, unions, fraternal or athletic groups, or [...] on file 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 Gender Identity Not on file Sexual Orientation [...] Fall Risk Assessment 03/26/2024 03/26/2023 Covid-19 Vaccine (2023-2 5 season) 2024 05/26/2022, 02/22/2022, 06/30/2021, Additional history exists Zoster Vaccine Completed 05/01/2018, 01/04/2018 Pneumococcal vaccine 65+ Completed 05/15/2018, 11/2015 Influenza Vaccine Completed 05/22/2024, , 06/04/2019, Additional history exists Medical Devices Implanted Type Area Pantry Goods Maker Device Identifier Shelf Expiration Date Model / Serial / Lot Dodge Vascular [id number] Defib Cardiac [id number] [place] Hf Df4 Is-4 Is-1 Cn[facility] - [id number] - [id number] Implanted:Qty: 1 on 04/12/2021 by Bandar Gaffney MD at [facility] ICD [employer] V[employer] [id number] 02/01/2023 C [id number] / [id number] / [employer] 7120q/65 Durata 7fr 65cm 2 Coil Df-4 True Bipolar Active Fixation - [id number] - [id number] Implanted:Qty: 1 on 04/12/2021 by Bandar Gaffney MD at [facility] Lead [employer] [id number] 02/01/2022 7120Q/65 / [id number] / [employer] 8tc/52 Tendril Sts 6fr 52cm Is-1 Connector Active Fixation Bipolar Soft - [id number] - [id number] Implanted:Qty: 1 on 04/12/2021 by Bandar Gaffney MD at [facility] Lead [employer] [id number] 03/03/2024 2088TC/52 / [id number] / [employer] 1458q/86 Quartet 5fr [id number] 4 Electrode Is-4 Connector Steerable Tip - [id number] - [id number] Implanted:Qty: 1 on 04/12/2021 by Bandar Gaffney MD at [facility] Lead [employer] [id number] 02/02/2024 1458Q/86 / [id number] / Insurance UHC MEDICARE ADVANTAGE UHC MEDICARE ADVANTAGE [facility] [place] [address] Advance Directives For more information, please contact: [phone] * Full Code (Latest Code Status on File) Date Activated Date Inactivated Comments 03/23/2023 7:04 AM 03/26/2023 7:27 PM Care Teams Emergency Response Technician Relationship Specialty Start Date End Date Dillan Reddy MD [address] [address] PCP - General Internal Medicine 11/09/23 Bandar Gaffney MD Consulting Physician Cardiology 04/13/21
--- OUTSIDE RECORDS SUMMARY | 2025-02-20 12:34 | XMS_ITS | Patient Health Record ---
Author Organization [facility] As [facility] Address [address] [place] [address] Care Team Providers Care Nursing Associate Name Role Phone Maureen URBINA, Masoud Primary Care Provider Un available Patric Amaya Unavailable [phone] Allergies Allergen (clinical drug ingredient) Drug/Non Drug [...] 4 MG TAKE 1 TABLET BY [facility] TWICE DAILY NEEDED Oral for 5 Days Active Vraylar 1.5 MG 1 capsule at bedtime Oral every other day for 30 days Samples Active Amiodarone HCl 200 MG Oral for 60 Days Active Famotidine 20 MG TAKE 1 TABLET BY [facility] TWICE DAILY NEEDED Oral for 90 Days Active traZODone HCl 150 MG 1.5 tablet at bedti vt Oral Once a day for 30 days 09/13/2024 Active rOPINIRole HCl 0.5 MG TAKE 1 TABLET BY [facility] ONCE DAILY AT BEDTIME FOR [...] Vaccine 1st dose Unknown 02/22/2022 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 [email or web address] Covid-19 Vac cine 2nd dose Unknown 05/26/2022 [...] Problem Bipolar affective disorder, currently depressed, mild (727241412) Bipolar disorder, current episode depressed, mild (F31.31) Active confirmed Problem Generalized anxiety disorder (92471819) Generalized anxiety disorder (F41.1) Active confirmed Problem Primary insomnia (2055830) Primary insomnia (F51.01) Active confirmed Problem 10683524 Alzheimer's disease with late onset (G30.1) Active confirmed Problem Cardiomyopathy (26294192) Cardiomyopathy, unspecified (I42.9) Active confirmed Problem Generalized anxiety disorder (94110845) CAMDEN (generalized anxiety disorder) (F41.1) Active confirmed Problem Hyperlipidemia (18486387) Hyperlipidemia (E78.5) 03/22/20 21 Active confirmed Problem Hypothyroidism (91316823) Hypothyroidism (E03.9) 03/22/20 21 Active confirmed Problem Cardiomyopathy (84073245) Cardiomyopathy (I42.9) 03/22/20 21 Active confirmed Problem Left bundle branch block (65368849) Left bundle branch block (LBBB) (I44.7) 03/23/20 21 Active confirmed Problem Ventricular tachycardia (disorder) (70694630) VT (ventricular tachycardia) (I47.20) 04/12/20 21 Active confirmed Problem Automatic implantable cardiac defibrillator in situ (112087065) ICD (implantable cardioverter-defi brillator), biventricular, in situ (Z95.810) 04/21/20 23 Active confirmed Vital Signs Heart Rate 69 /min 02/13/2025 Height-cm 165.10 cm 02/13/2025 Blood pressure diastolic 83 mm Hg 02/13/2025 Weight-kg 81.65 kg 02/13/2025 Height 65.00 in 02/13/2025 Blood pressure systolic 140 mm Hg 02/13/2025 Weight 180, 180.0 lbs 02/13/2025 BMI 29.95 kg/m2 02/13/2025 Encounters Encounter Location Date Provider Diagnosis [facility] [employer] [address] [address] 03/13/2024 Patric Jose Luis Bipolar disorder, current episode depressed, mild F31.31 ; Cardiomyopathy, unspecified I42.9 and Primary insomnia F51.01 [facility] [employer] [address] 04/12/2024 Patric Jose Luis Bipolar disorder, current episode depressed, mild F31.31 ; Cardiomyopathy, unspecified I42.9 ; Primary insomnia F51.01 ; Alzheimer's disease with late onset G30.1 and CAMDEN (generalized anxiety disorder) F41.1 [facility] [employer] [address] 05/13/2024 Patric Jose Luis Bipolar disorder, current episode depressed, mild F31.31 ; Cardiomyopathy, unspecified I42.9 ; Primary insomnia F51.01 ; Alzheimer's disease with late onset G30.1 and CAMDEN (generalized anxiety disorder) F41.1 [facility] [employer] [address] 06/14/2024 Patric Jose Luis Bipolar disorder, current episode depressed, mild F31.31 ; Cardiomyopathy, unspecified I42.9 ; Primary insomnia F51.01 ; Alzheimer's disease with late onset G30.1 ; CAMDEN (generalized anxiety disorder) F41.1 ; Hyperlipidemia E78.5 ; Left bundle branch block (LBBB) I44.7 and Hypothyroidism E03.9 [facility] [place] [address] [facility] [address] [address] 07/15/2024 Patric Jose Luis Bipolar disorder, current episode depressed, mild F31.31 ; Cardiomyopathy, unspecified I42.9 ; Primary insomnia F51.01 ; Alzheimer's disease with late onset G30.1 ; CAMDEN (generalized anxiety disorder) F41.1 ; Hyperlipidemia E78.5 ; Left bundle branch block (LBBB) I44.7 and Hypothyroidism E03.9 [facility] [facility] [address] [facility] [address] [place] [address] 09/19/2024 Patricyashira Contrerasam Bipolar disorder, current episode depressed, mild F31.31 ; Cardiomyopathy, unspecified I42.9 ; Primary insomnia F51.01 ; Alzheimer's disease with late onset G30.1 ; CAMDEN (generalized anxiety disorder) F41.1 ; Hyperlipidemia E78.5 ; Left bundle branch block (LBBB) I44.7 and Hypothyroidism E03.9 [facility] [address] [facility] [address] [place] [address] 10/17/2024 Patric Jose Luis Bipolar disorder, current episode depressed, mild F31.31 ; Primary insomnia F51.01 ; Alzheimer's disease with late onset G30.1 ; CAMDEN (generalized anxiety disorder) F41.1 ; Hyperlipidemia E78.5 and Hypothyroidism E03.9 [facility] [address] [address] 11/14/2024 Patric Jose Luis Encounter for screen ing for depression Z13.31 ; Encounter for screening for cardiovascular disorders Z13.6 ; Bipolar disorder, current episode depressed, mild F31.31 ; Primary insomnia F51.01 ; Alzheimer's disease with late onset G30.1 ; CAMDEN (generalized anxiety disorder) F41.1 ; Hyperlipidemia E78.5 and Hypothyroidism E03.9 [facility] [facility] [address] [facility] [address] [place] [address] 12/12/2024 Patric Jose Luis Encounter for screen ing for cardiovascular disorders Z13.6 ; Encounter for screening for depression Z13.31 ; Bipolar disorder, current episode depressed, mild F31.31 ; Primary insomnia F51.01 ; Alzheimer's disease with late onset G30.1 ; CAMDEN (generalized anxiety disorder) F41.1 ; Hyperlipidemia E78.5 and Hypothyroidism E03.9 [facility] [employer] [address] [facility] [address] [place] [address] 01/09/2025 Patric Jose Luis Bipolar disorder, current episode depressed, mild F31.31 ; Primary insomnia F51.01 ; Alzheimer's disease with late onset G30.1 ; CAMDEN (generalized anxiety disorder) F41.1 ; Negative depression screening Z13.31 and Encounter for screening for cardiovascular disorders Z13.6 [facility] [address] [place] [address] 02/13/2025 Patric Jose Luis Bipolar disorder, current episode depressed, mild F31.31 ; Primary insomnia F51.01 ; Alzheimer's disease with late onset G30.1 ; Dietary counseling and surveillance Z71.3 ; CAMDEN (generalized anxiety disorder) F41.1 ; Encounter for screening for cardiovascular disorders Z13.6 and Encounter for screening for depression Z13.31 [facility] [place] [address] [facility] [address] [place] [address] 03/04/2024 Patric Jose Luis Generalized anxiety disorder F41.1 [place] [address] [facility] [address] [place] [address] 03/05/2024 Patric Jose Luis [place] [address] [address] 08/16/2024 Patric Jose Luis Generalized anxiety disorder F41.1 [place] [address] [facility] [address] [place] [address] 09/13/2024 Patric Jose Luis Generalized anxiety disorder F41.1 and Primary insomnia F51.01 [place] [address] [address] 11/26/2024 Patric Jose Luis Assessments Encounter Date Diagnosis (ICD Code) Assessment Notes Treatment Notes Treatment Clinical Notes Section Notes 03/04/2024 Generalized anxiety disorder (ICD-10 - F41.1) 09/13/2024 Generalized anxiety disorder (ICD-10 - F41.1) 08/16/2024 [...] symptoms or concerns during this time. 03/13/2024 Bipolar disorder, current episode depressed, mild [...] supply of clonazepam from their preferred pharmacy ([facility]) and has had to use an alternative pharmacy ([facility]) to obtain the medication. - Plan: - Send prescriptions for clonazepam 0.5 mg three times a day, trazodone 150 mg, and venlafaxine 37.5 mg to [facility] in [place] - Instruct the patient to inform the [...] emotional well-being and provide support as needed. 10/17/2024 Bipolar disorder, current episode depressed, mild (ICD-10 - F31.31) Bipolar Disorder: Care Instructions material was published 10/17/2024 Primary insomnia (ICD-10 - F51.01) 04/12/2024 Cardiomyopathy, unspecified (ICD-10 - I42.9) Schizoaffective [...] emotional well-being and provide support as needed. 11/14/2024 Encounter for screening for depression (ICD-10 - Z13.31) 12/12/2024 Encounter for screening for cardiovascular disorders (ICD-10 - Z13.6) 01/09/2025 Bipolar disorder, current episode depressed, mild (ICD-10 - F31.31) 02/13/2025 Bipolar disorder, current episode depressed, mild (ICD-10 - F31.31) 02/13/2025 Primary insomnia (ICD-10 - F51.01) 06/14/2024 Bipolar disorder, current episode depressed, mild [...] Support - Assessment: Patient is working with [employer] for Medicaid application, despite concerns about eligibility. [...] progress and address any new concerns. 05/13/2024 Bipolar disorder, current episode depressed, mild [...] Plan: Encourage patient to follow up with paint preparer and primary care physician for further evaluation [...] I want to see your smiling face. 07/15/2024 Bipolar disorder, current episode depressed, mild [...] be confirmed. - Consider referral to a paint preparer or painter assistant for further evaluation and management. Bipolar Disorder [...] Healthcare Access - Assessment: The patient has [email or web address] insurance and is concerned about potential changes in network coverage, specifically mentioning [place] potentially going out of network. - Plan: [...] assistive devices or physical therapy if needed. 05/13/2024 Cardiomyopathy, unspecified (ICD-10 - I42.9) Mood [...] Plan: Encourage patient to follow up with paint preparer and primary care physician for further evaluation [...] want to see your smiling face. 06/14/2024 Cardiomyopathy, unspecified (ICD-10 - I42.9) Legal [...] is a decline in cognitive abilities. Tremors (pill-rolling/laimn h-counting) - Assessment: Suspected side effect from [...] Support - Assessment: Patient is working with [employer] for Medicaid application, despite concerns about eligibility. [...] be confirmed. - Consider referral to a paint preparer or painter assistant for further evaluation and management. Bipolar Disorder [...] Healthcare Access - Assessment: The patient has [email or web address] insurance and is concerned about potential changes in network coverage, specifically mentioning [place] potentially going out of network. - Plan: [...] devices or physical therapy if needed. 02/13/2025 Alzheimer's disease with late onset (ICD-10 [...] disease with late onset (ICD-10 - G30.1) 04/12/2024 Primary insomnia (ICD-10 - F51.01) Schizoaffective [...] supply of clonazepam from their preferred pharmacy ([facility]) and has had to use an alternative pharmacy ([facility]) to obtain the medication. - Plan: - Send prescriptions for clonazepam 0.5 mg three times a day, trazodone 150 mg, and venlafaxine 37.5 mg to [facility] in [place] - Instruct the patient to inform the [...] or new concerns before their next appointment 09/19/2024 Cardiomyopathy, unspecified (ICD-10 - I42.9) Sciatica [...] supply of clonazepam from their preferred pharmacy ([facility]) and has had to use an alternative pharmacy ([facility]) to obtain the medication. - Plan: - Send prescriptions for clonazepam 0.5 mg three times a day, trazodone 150 mg, and venlafaxine 37.5 mg to [facility] in [place] - Instruct the patient to inform the [...] emotional well-being and provide support as needed. 10/17/2024 CAMDEN (generalized anxiety disorder) (ICD-10 - F41.1) 11/14/2024 Bipolar disorder, current episode depressed, mild (ICD-10 - F31.31) Bipolar Disorder: Care Instructions material was published 12/12/2024 Bipolar disorder, current episode depressed, mild (ICD-10 - F31.31) 01/09/2025 Alzheimer's disease with late onset (ICD-10 - G30.1) 02/13/2025 Dietary counseling and surveillance (ICD-10 - Z71.3) 06/14/2024 Primary insomnia (ICD-10 - F51.01) Legal [...] Support - Assessment: Patient is working with [employer] for Medicaid application, despite concerns about eligibility. [...] Plan: Encourage patient to follow up with paint preparer and primary care physician for further evaluation [...] I want to see your smiling face. 07/15/2024 Primary insomnia (ICD-10 - F51.01) Shortness [...] be confirmed. - Consider referral to a paint preparer or painter assistant for further evaluation and management. Bipolar Disorder [...] Healthcare Access - Assessment: The patient has [email or web address] insurance and is concerned about potential changes in network coverage, specifically mentioning [place] potentially going out of network. - Plan: [...] devices or physical therapy if needed. 07/15/2024 Alzheimer's disease with late onset (ICD-10 [...] be confirmed. - Consider referral to a paint preparer or painter assistant for further evaluation and management. Bipolar Disorder [...] Healthcare Access - Assessment: The patient has [email or web address] insurance and is concerned about potential changes in network coverage, specifically mentioning [place] potentially going out of network. - Plan: [...] assistive devices or physical therapy if needed. 05/13/2024 Alzheimer's disease with late onset (ICD-10 [...] Plan: Encourage patient to follow up with paint preparer and primary care physician for further evaluation [...] want to see your smiling face. 06/14/2024 Alzheimer's disease with late onset (ICD-10 [...] Support - Assessment: Patient is working with [employer] for Medicaid application, despite concerns about eligibility. [...] monitor progress and address any new concerns. 02/13/2025 CAMDEN (generalized anxiety disorder) (ICD-10 - [...] clonazepam. - Assess progress in one month. 01/09/2025 CAMDEN (generalized anxiety disorder) (ICD-10 - F41.1) 12/12/2024 Primary insomnia (ICD-10 - F51.01) 11/14/2024 Primary insomnia (ICD-10 - F51.01) 04/12/2024 CAMDEN (generalized anxiety disorder) (ICD-10 - [...] emotional well-being and provide support as needed. 10/17/2024 Hyperlipidemia (ICD-10 - E78.5) 09/19/2024 Alzheimer's disease with late onset (ICD-10 [...] symptoms or concerns during this time. 10/17/2024 Hypothyroidism (ICD-10 - E03.9) 11/14/2024 Alzheimer's disease with late onset (ICD-10 - G30.1) 12/12/2024 Alzheimer's disease with late onset (ICD-10 - G30.1) 01/09/2025 Negative depression screening (ICD-10 - Z13.31) 02/13/2025 Encounter for screening for cardiovascular disorders (ICD-10 - Z13.6) 07/15/2024 CAMDEN (generalized anxiety disorder) (ICD-10 - [...] be confirmed. - Consider referral to a paint preparer or painter assistant for further evaluation and management. Bipolar Disorder [...] Healthcare Access - Assessment: The patient has [email or web address] insurance and is concerned about potential changes in network coverage, specifically mentioning [place] potentially going out of network. - Plan: [...] assistive devices or physical therapy if needed. 05/13/2024 CAMDEN (generalized anxiety disorder) (ICD-10 - [...] Plan: Encourage patient to follow up with paint preparer and primary care physician for further evaluation [...] want to see your smiling face. 06/14/2024 CAMDEN (generalized anxiety disorder) (ICD-10 - [...] Support - Assessment: Patient is working with [employer] for Medicaid application, despite concerns about eligibility. [...] monitor progress and address any new concerns. 06/14/2024 Hyperlipidemia (ICD-10 - E78.5) Legal Issues [...] Support - Assessment: Patient is working with [employer] services for Medicaid application, despite concerns about eligibility. [...] be confirmed. - Consider referral to a paint preparer or painter assistant for further evaluation and management. Bipolar Disorder [...] Healthcare Access - Assessment: The patient has [email or web address] insurance and is concerned about potential changes in network coverage, specifically mentioning [place] potentially going out of network. - Plan: [...] for screening for depression (ICD-10 - Z13.31) 01/09/2025 Encounter for screening for cardiovascular disorders [...] symptoms or concerns during this time. 11/14/2024 Hyperlipidemia (ICD-10 - E78.5) 09/19/2024 Left [...] this time. 12/12/2024 Hyperlipidemia (ICD-10 - E78.5) 07/15/2024 Left bundle branch block (LBBB) (ICD-10 [...] be confirmed. - Consider referral to a paint preparer or painter assistant for further evaluation and management. Bipolar Disorder [...] Healthcare Access - Assessment: The patient has [email or web address] insurance and is concerned about potential changes in network coverage, specifically mentioning [place] potentially going out of network. - Plan: [...] devices or physical therapy if needed. 06/14/2024 Left bundle branch block (LBBB) (ICD-10 [...] Support - Assessment: Patient is working with [employer] for Medicaid application, despite concerns about eligibility. [...] progress and address any new concerns. 07/15/2024 Hypothyroidism (ICD-10 - E03.9) Shortness of [...] be confirmed. - Consider referral to a paint preparer or painter assistant for further evaluation and management. Bipolar Disorder [...] Healthcare Access - Assessment: The patient has [email or web address] insurance and is concerned about potential changes in network coverage, specifically mentioning [place] potentially going out of network. - Plan: [...] Support - Assessment: Patient is working with [employer] for Medicaid application, despite concerns about eligibility. [...] monitor progress and address any new concerns. 12/12/2024 Hypothyroidism (ICD-10 - E03.9) 11/14/2024 Hypothyroidism [...] symptoms or concerns during this time. 05/13/2024 Other referral to the local chapter or national office of the Alzheimer's Association (6-624-826-39 00; http://www.al z.org), the Alzheimer's Disease Education and Referral Center (ADEAR) (8-169-607-43 80; http://www.ni a.nih.gov/Alz heimers/), Mood and Depression [...] Plan: Encourage patient to follow up with paint preparer and primary care physician for further evaluation [...] or national office of the Alzheimer's Association (3-801-033-39 00; http://www.al z.org), the Alzheimer's Disease Education and Referral Center (ADEAR) (0-064-995-43 80; http://www.ni a.nih.gov/Alz heimers/), Sciatica Pain - [...] or national office of the Alzheimer's Association (6-961-093-39 00; http://www.al z.org), the Alzheimer's Disease Education and Referral Center (ADEAR) (; http://www.ni a.nih.gov/Alz heimers/), Anxiety - Assessment: Patient reports increased anxiety with elevated heart rate (84, usually 65). - Plan: - Continue current medications. - Monitor for changes in anxiety levels. Kidney Function - Assessment: Patient has a history of hospitalization due to Furosemide (Lasix) issue. Upcoming appointment with child and adolescent psychologist on the . - Plan: - Monitor [...] member for money and food. Power of district attorney is with brother Mauricio Pacheco. - Plan: - Encourage patient to discuss financial concerns with power of district attorney and establish boundaries with family members. [...] cardiac device monitoring - Follow up with paint preparer as scheduled in February [employer] Assessment: [...] without a caregiver for 2 months. A district representative from an aging services organization has contacted [employer] to address this issue. Plan: - Follow up on the status of caregiver assignment through [employer] Disclaimer: This note has been transcribed using speech recognition software and serves as a reflection of the patient's visit. While efforts have been made to ensure accuracy, there may be errors, including quarry boss inaccuracies and misspellings of medication names. This document should not be considered a verbatim record, and any discrepancies should be verified with the provider. 01/09/2025 Other Medication Management and Access - Assessment: Patient reports discontinuation of Entresto due to loss of sample access and high [id number] costs (approximately $600/month). This has led to [...] or reduced-cost medications. - Follow up with paint preparer (Dr. Rodriguez) regarding medication changes and current [...] and daily functioning. - Consider referral to licensed master social worker for additional support if needed. Mood and [...] 03/13/2025 01:15:00 PM, [address], [facility] [address], [place], [address], Insurance Providers Payer Name Payer Address Payer Phone Subscriber Number Group Number Insured Name Patient Relationship to Insured Coverage Start Date Coverage End Date [employer] Medicare Replacement/ Advantage - Ppo [address] [address] [place] [address] [id number] JAILENE MARTINO Self - patient is the [...] Date(Month/Year) Implantation of cardiac defibrillator libby cook ([id number]) 04/12/2021
--- OUTSIDE RECORDS SUMMARY | 2025-02-20 12:34 | XMS_ITS | Encounter Summary ---
Author Organization [facility] Address [address] [facility] [address] [place] [address] Care Team Providers Care Ball Thread Machine Tender Name Role Phone Lana Tovar MD Primary Care Provider + Lana Tovar MD Primary Care Provider + Bandar Gaffney MD Unavailable [phone] Dillan Reddy MD Primary Care Provide r Encounter Details Date Type Department Care Team (Late st Contact Info) Description 2016 Orders Only [facility] ProviderSaurabh MD [address] [place] [address] Social History Tobacco Use Types Packs/Day Years Used Date Smoking Tobacco: Never Alcohol Use Standard Drinks/Week Comments No 0 (1 standard drink = 0.6 oz pur e alcohol) Comments Unknown Sex and Gender Information Value Date Recorded Sex Assigned at Not on file Legal Sex 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
--- OUTSIDE RECORDS SUMMARY | 2025-02-20 12:34 | XMS_ITS | Encounter Summary ---
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 Ceja, Your last ov notes states She can not afford Entresto at all and she took her last dose last night. We will therefore transition her to losartan as an alternative. [facility] * Telephone Encounter - Erica Lopez MA - 02/10/2025 1:09 PM CDT Spoke with patient. Patient found her paperwork for patient assistance for Entresto. Patient will complete her portion and bring to office. Will await paperwork from patient. * Telephone Encounter - Allison Ojeda - 02/10/2025 10:56 AM CDT Pt requesting a call back to discuss if we have the paperwork for assistance with sacubitriL-valsartan (Entresto) 24-26 mg please advise thank you Contact: documented in this encounter Plan of Treatment Not on file documented as of this encounter Visit Diagnoses Not on filedocumented in this encounter Care Teams Assistant Controller Relationship Specialty Start Date End Date Dillan Reddy MD [address] [address] PCP - General Internal Medicine 11/09/23 Bandar Gaffney MD Consulting Physician Cardiology 04/13/21 documented as of this encounter
[2025-02-20 13:06] LABS: Albumin Level 4.2 g/dL (3.5-5.1); Anion Gap 8 mmol/L (4-12); Blood Urea Nitrogen 11 mg/dL (7-17); Calcium 9.1 mg/dL (8.4-10.2); Carbon Dioxide 27 mmol/L (22-30); Chloride 106 mmol/L (98-107); Estimated Glomerular Filt Rate 41; Glucose 113 mg/dL (65-110); Phosphorus 3.6 mg/dL (2.5-4.5); Potassium 4.2 mmol/L (3.4-5.0); Sodium 141 mmol/L (137-145)
[2025-02-20 13:15] LABS: Complement C3 102 mg/dL (88-165)
[2025-02-20 13:16] LABS: Creatinine Urine 171.4 mg/dL; Total Protein Urine Random 18 mg/dL; Ur Ttl Prot Creatinine Ratio 0.11 mg/mg (0-0.20)
[2025-02-22 01:48] LABS: Creatinine, Random Urine 170 mg/dL (20-275); Total Prot/Creat ratio mg/mg 0.194 (0.024-0.184); Total Protein/Creatinine Ratio 194 mg/g creat (24-184)
[2025-02-22 13:04] LABS: ANCA Screen NEGATIVE (NEGATIVE)
[2025-02-25 08:49] LABS: Abnormal Protein Band 1 0.9 g/dL (NONE DETECTED); Albumin 3.8 g/dL (3.8-4.8); Alpha 1 Globulin 0.4 g/dL (0.2-0.3); Alpha 2 Globulin 0.9 g/dL (0.5-0.9); Beta 1 Globulin 0.5 g/dL (0.4-0.6); Gamma Globulin 1.3 g/dL (0.8-1.7)
[2025-02-27 14:14] LABS: DNA (ds) Antibody. <1 IU/mL
[2025-03-04 08:49] LABS: Abnormal Protein Band 1 3 mg/dL (NONE DETECTED)
== END 2025-02-20 11:53 | disposition home or self-care (01) ==
PROVIDERS: PCP Internal Medicine; Visit Provider Internal Medicine Nephrology
DX: N18.32 Chronic kidney disease, stage 3b (principal); I42.9 Cardiomyopathy, unspecified
CPT/HCPCS: 36415; 80069; 82570; 83520; 84155; 84156; 84165; 84166; 86036; 86038; 86039; 86160; 86225

== ENCOUNTER 2025-03-24 21:30 | Inpatient (IN) | payer MEDICARE, SELFPAY ==
[2025-03-24] VITALS (8 sets, daily range): BP systolic 139–190; BP diastolic 78–124; PULSE 88–113; RESP 18–30; TEMP 37.5; O2SAT 93–97
--- NOTE | ~2025-03-24 | XR_ITS ---
CHEST RADIOGRAPH CLINICAL HISTORY: Cough . COMPARISON: 03/24/2025 TECHNIQUE: Single portable view of the chest. FINDINGS The left mid lung is partially obscured due to pacemaker/AICD generator. Wires project over the right atrium, coronary sinus and right ventricle. The remainder of the cardiomediastinal silhouette is otherwise unremarkable. Increased interstitial markings are identified bilaterally, findings suggesting mild pulmonary vascul ar congestion. The remainder of the lungs are otherwise clear. IMPRESSION: Mild pulmonary vascular congestion, without focal infiltrate or effusion. Reviewed, dictated and finalized at location A.
--- NOTE | ~2025-03-24 | XR_ITS ---
EXAMINATION: XR chest 1V portable Exam Date/Time: 03/24/2025 22:25 CDT HISTORY: SOB, DIFFICULTY SWALLOWING Comparison: 01/02/2024; [facility]PA 03/23/2021. RESULT: Lines, tubes, and devices: Left chest pacer/AICD, with intact leads. Lungs and pleura: Patchy groundglass opacity over the right upper lung. Mild diffuse reticulonodular opacities. Cardiomediastinal silhouette: Stable. Other: No acute osseous or upper abdominal finding. IMPRESSION: Patchy right upper lung groundglass opacities and mild diffuse reticulonodular opacities, may represe nt infection overlying chronic respiratory bronchiolitis or senescent/interstitial change. Reviewed, dictated and finalized at location K. IMPRESSION: Patchy right upper lung groundglass opacities and mild diffuse reticulonodular opacities, may represent infection overlying chronic respiratory bronchiolitis or senescent/interstitial change.
--- NOTE | ~2025-03-24 | CT_ITS ---
EXAM: CT brain wo con - 03/25/2025 14:00 CDT History: 79 years old Female with fall COMPARISON: 12/08/23 PROCEDURE: CT of the head without contrast. Axial, sagittal and coronal reformatted planes were rigoberto luated. Automatic exposure control was used for this study. FINDINGS: BRAIN PARENCHYMA: No acute hemorrhage. No mass effect or herniation. Pratt-white matter differentiatio n is maintained. Mild to moderate chronic volume loss. Scattered hypodensities in subcortical and per iventricular white matter, likely representing chronic microvascular ischemic changes in this age michelle up. Atherosclerotic calcification of the intracranial vessels is noted. VENTRICLES/ EXTRA-AXIAL SPACES: No hydrocephalus or extra-axial fluid collection. EXTRACRANIAL STRUCTURES: No calvarial fracture. IMPRESSION: No evidence for acute intracranial hemorrhage or calvarial fracture. Reviewed, dictated and finalized at location A.
--- NOTE | 2025-03-24 21:34 | ECG_ITS ---
Test Date: 2025-03-24 21:57:25 Measurements Intervals [place] Rate: 106 P: 49 MS: 151 QRS: -21 QRSD: 166 T: 112 QT: 386 QTc: 514 Interpretive Statements ELECTRONIC VENTRICULAR PACEMAKER ABNORMAL RHYTHM ECG No previous ECG available for comparison Electronically Signed On 03-25-2025 16:38:53 CDT by Humza Ward M.D.
[2025-03-24 21:52] LABS: Hematocrit 41.1 % (37.0-47.0); Hemoglobin 12.7 g/dL (12.0-15.0); Immature Granulocyte Percent A 0.4 % (0-0.5); Lymphocytes Absolute Auto 2.97 K/mm3 (0.9-3.2); Mean Corpuscular HGB Conc 30.9 g/dl (32-36); Mean Corpuscular Hemoglobin 32.0 pg (26-34); Mean Corpuscular Volume 103.5 fl (80-100); Nucleated Red Blood Cells Absolute Auto 0.000 K/mm3 (0.0-0.012); Nucleated Red Blood Cells Perc 0.0 % (0.0-0.2); Platelet Count Result 249 k/mm3 (150-375); Red Blood Count 3.97 M/mm3 (4.2-5.4); White Blood Count 12.3 K/mm3 (4.5-10.0)
--- OUTSIDE RECORDS SUMMARY | 2025-03-24 22:05 | XMS_ITS | Referral Summary ---
Author Organization [place] [address] [address] [place] [phone] Care Team Providers Care Administrative Manager Name Role Phone Bandar Gaffney MD Unavailable [phone] Dillan Reddy MD Primary Care Provide r Encounters Date Type Department Care Team Description 02/19/2025 1:30 PM CDT Ancillary Procedure [facility] Cardiology [address] [place] [address] [address] [place] [phone] Dilated cardiomyopathy (HCC); VT (ventricular tachycardia) (HCC); ICD (implantable cardioverter-defibrill ator), biventricular, in situ; Paroxysmal atrial fibrillation (HCC) 02/10/2025 Telephone [facility] Cardiology [address] [place] [address] [place] [phone] Samy Ceja MD 01/13/2025 Telephone [facility] Cardiology [address] [place] [address] [address] [place] [address] Samy Ceja MD 01/06/2025 10:00 AM CDT Office Visit [facility] Medical Group Cardiology at [address] [place] [address] Samy Ceja MD Dilated cardiomyopathy (HCC) (Primary Dx) 01/02/2025 Telephone [facility] Cardiology [address] [place] [address] [address] [place] [phone] Samy Ceja MD 01/01/2025 Telephone [facility] Cardiology [address] [place] [address] Samy Ceja MD from Last [...] oral route every day at bedtime 0 3 Active ondansetron ODT (ZOFRAN-ODT) 8 mg disintegrating tablet take 1 tablet (8MG) by oral route every 8 hours 0 3 Active clonazePAM (KlonoPIN) 1 mg tablet Take 0.5 tablets (0.5 mg total) by mouth 3 (three) times a day Active levothyroxine sodium (LEVOTHYROXINE ORAL) Take 150 mcg by mouth nightly Active acetaminophen (TYLENOL) 325 mg tablet Take 2 tablets (650 mg total) by mouth every 6 (six) hours as needed for pain 1 Active famotidine (PEPCID) 20 mg tablet Take 1 tablet (20 mg total) by mouth 2 (two) times a day Active warfarin (COUMADIN) 2 mg tablet Take 1 tablet (2 mg total) by mouth daily Take as directed per After Visit Summary. 30 tablet 3 01/07/20 26 Active amiodarone (PACERONE) 200 mg tablet Take 1 tablet (200 mg total) by mouth daily 60 tablet 3 5 03/31/20 25 Active carvediloL (COREG) 25 mg tablet Take 1 tablet (25 mg total) by mouth daily 90 tablet 3 5 Active furosemide (LASIX) 40 mg tablet Take 1 tablet (40 mg total) by mouth 3 (three) times a week 60 tablet 2 5 Active losartan (COZAAR) 50 mg tablet Take 1 tablet (50 mg total) by mouth daily 90 tablet 2 5 01/07/20 26 Active spironolactone (ALDACTONE) 25 mg tablet Take 1 tablet by mouth once daily 90 tablet 3 5 Active sacubitriL-valsarta n (ENTRESTO) 24-26 mg tabletIndications:c hronic heart failure Take 1 tablet by mouth 2 (two) times a day 180 tablet 3 5 Active Active Problems Problem Noted Date Diagnosed Date ICD (implantable cardioverter-defibrillator) dis charge 03/23/2023 ICD (implantable cardioverte r-defibrillator), biventricular, in situ 04/13/2021 Overview (04/21/2023): Dodge DDD Wanette BI-V ICD imp on 04/12/21 for DCM, VT, Afib. Yeimy. Nora. [facility]. Bluetooth [employer] Component Advisory--risk for loss of [...] often do you attend chur ch or roman catholic services? 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 Gender Identity Not on file Sexual Orientation [...] on file Medical Devices Implanted Type Area Custody Assistant Device Identifier Shelf Expiration Date Model / Serial / Lot Dodge Vascular [id number] Defib Cardiac [id number] Wanette Hf Df4 Is-4 Is-1 [facility] - [id number] - [id number] Implanted:Qty: 1 on 04/12/2021 by Bandar Gaffney MD at [facility] ICD [employer] Vascular [id number] 02/01/2023 C [id number] / [id number] / [employer] 7120q/65 Durata 7fr 65cm 2 Coil Df-4 True Bipolar Active Fixation - [id number] - [id number] Implanted:Qty: 1 on 04/12/2021 by Bandar Gaffney MD at [facility] Lead [employer] [id number] 02/01/2022 7120Q/65 / [id number] / [employer] 2088tc/52 Tendril Sts 6fr 52cm Is-1 Connector Active Fixation Bipolar Soft - [id number] - [id number] Implanted:Qty: 1 on 04/12/2021 by Bandar Gaffney MD at [facility] Lead [employer] [id number] 03/03/2024 2088TC/52 / [id number] / [employer] 1458q/86 Quartet 5fr [id number] Electrode Is-4 Connector Steerable Tip - [id number] - [id number] Implanted:Qty: 1 on 04/12/2021 by Bandar Gaffney MD at [facility] Lead [employer] [id number] 02/02/2024 1458Q/86 / [id number] / Procedures Procedure Name Priority Date/Time Associated Diagnosis Comments DEVICE CHECK - IN OFFICE Routine 02/19/2025 1:25 PM CDT Dilated cardiomyopathy (HCC) VT (ventricular tachycardia) (HCC) ICD (implantable cardioverter-defibrill ator), biventricular, in situ Paroxysmal atrial fibrillation (HCC) from Last 3 Months Results * DEVICE CHECK - IN OFFICE (02/19/2025 1:25 PM CDT) Anatomical Region Laterality Modality Other Narrative 02/25/2025 12:51 PM CDT Dodge DDD Wanette BI-V ICD imp on 04/12/21 for DCM, VT, Afib. EP-Yeimy. Angélica-Marcial. [place] remote. [employer] Advisory. Supervising MD: Dr Carranza. Office interrogation of DDD BIV ICD demonstrated appropriate device function. Left pectoral incision well healed without redness, drainage, or edema noted. Battery function-Ok, 4.0 years remaining battery longevity to LEANDRA. Charge time-8.6 seconds. Appropriate lead measurements noted-see report for results. Presenting rhythm- BIV Paced. Underlying rhythm-SB/SR 56-60 bpm. AP-74%, BIVP-98%. No Atrial episodes recorded. No Ventricular tachy arrhythmias recorded. Medications; Coumadin, Pacerone, Entresto, Coreg. No programming changes made to device settings. See scanned report. Office device f/u 05/27/2026. Jose De Jesus remote f/u 05/27/2025. Dulce Gutierrez RN Samy Ceja MD [facility] PROC EDURES Final Result from Last 3 Months Insurance UHC MEDICARE ADVANTAGE UHC MEDICARE ADVANTAGE [facility] MEDIC[facility] ADVANTAGE Advance Directives For more information, please contact: [phone] * Full Code (Latest Code Status on File) Date Activated Date Inactivated Comments 03/23/2023 7:04 AM 03/26/2023 7:27 PM Care Teams Administrative Manager Relationship Specialty Start Date End Date Dillan Reddy MD [address] [address] PCP - General Internal Medicine 11/09/23 Bandar Gaffeny MD Consulting Physician Cardiology 04/13/21
--- OUTSIDE RECORDS SUMMARY | 2025-03-24 22:05 | XMS_ITS | Patient Health Record ---
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 Name Role Phone Maureen URBINA, Masoud Primary Care Provider Un available Patric Amaya Unavailable [phone] Allergies Allergen (clinical drug ingredient) Drug/Non Drug [...] Duration) Notes Start Date End Date Status Vraylar 1.5 MG 1 capsule at bedtime Oral every other day; Duration: 30 days Samples Active Famotidine 20 MG TAKE 1 TABLET BY JEREMIAS TH TWICE DAILY NEEDED Oral; Duration: 90 Days Active Amiodarone HCl 200 MG Oral; Duration: 60 Days Active rOPINIRole HCl 0.5 MG TAKE 1 TABLET BY M OUTH ONCE DAILY AT BEDTIME FOR 90 DAYS; Duration: 90 Active traZODone HCl 150 MG 1.5 tablet at bedti me Oral Once a day; Duration: 30 days 09/13/2024 Active Spironolactone 25 MG Oral; Duration: 30 Days Active Warfarin Sodium 3 MG Oral 01/12/2024 Active Venlafaxine HCl ER 37.5 MG 1 capsule with food Orally Once a day; Duration: 90 days Last Ordered: 11/14/2024 Active Cyanocobalamin 1000 MCG/ML INJECT 1ML INTRAMUSCULARLY ONCE EVERY MONTH Injection; Duration: 90 Days Active Carvedilol 25 MG TAKE 1/2 (ONE-HALF) TABLET BY MOUTH TWICE DAILY WITH MEALS Oral; Duration: 30 Days Active clonazePAM 0.5 MG 1 tablet Oral three times a day; Duration: 30 days 03/12/2025 Active Ondansetron HCl 4 MG TAKE 1 TABLET BY [facility] TWICE DAILY NEEDED Oral; Duration: 5 Days Active traZODone HCl 150 MG 1.5 tablet at bedti sd Oral Once a day; Duration: 90 days Last Ordered: 11/14/2024 Active Furosemide 40 MG TAKE 1 TABLET BY [facility] THREE TIMES A WEEK Oral; Duration: 84 Days Active Immunizations Vaccine Route Administration Date Status [...] Vaccine 1st dose Unknown 02/22/2022 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 [employer] Covid-19 Vac cine 2nd dose Unknown 05/26/2022 [...] A Caregiver Who Assists With Household Tasks Diet: Avoids Red Meat Due To Nausea Living situation: Has A Caregiver Who Assists With Household Tasks Problems Problem Type SNOMED Code ICD Code Onset Dates Problem Status W/U Status Risk Notes Problem Bipolar affective disorder, currently depressed, mild (554222673) Bipolar disorder, current episode depressed, mild (F31.31) Active confirmed Problem Generalized anxiety disorder (07277668) Generalized anxiety disorder (F41.1) Active confirmed Problem Primary insomnia (8310684) Primary insomnia (F51.01) Active confirmed Problem Alzheimer's disease with late onset (331052894) Alzheimer's disease with late onset (G30.1) Active confirmed Problem Cardiomyopathy (81875675) Cardiomyopathy, unspecified (I42.9) Active confirmed Problem Heart failure (82681054) Heart failure, unspecified (I50.9) Active confirmed Problem Generalized anxiety disorder (87553932) CAMDEN (generalized anxiety disorder) (F41.1) Active confirmed Problem Hyperlipidemia (09343940) Hyperlipidemia (E78.5) 03/22/20 21 Active confirmed Problem Hypothyroidism (50148368) Hypothyroidism (E03.9) 03/22/20 21 Active confirmed Problem Cardiomyopathy (55071553) Cardiomyopathy (I42.9) 03/22/20 21 Active confirmed Problem Left bundle branch block (05353227) Left bundle branch block (LBBB) (I44.7) 03/23/20 21 Active confirmed Problem Ventricular tachycardia (disorder) (17273619) VT (ventricular tachycardia) (I47.20) 04/12/20 21 Active confirmed Problem Automatic implantable cardiac defibrillator in situ (783561962) ICD (implantable cardioverter-defi brillator), biventricular, in situ (Z95.810) 04/21/20 23 Active confirmed Vital Signs Heart Rate 62 /min 03/12/2025 Height-cm 165.10 cm 03/12/2025 Blood pressure diastolic 75 mm Hg 03/12/2025 Weight-kg 81.65 kg 02/13/2025 Height 65.00 in 03/12/2025 Blood pressure systolic 131 mm Hg 03/12/2025 Weight 180, 180.0 lbs 02/13/2025 BMI 29.95 kg/m2 02/13/2025 Encounters Encounter Location Date Provider Diagnosis [facility] [place] [address] [address] 04/12/2024 Patric Jose Luis Bipolar disorder, current episode depressed, mild F31.31 ; Cardiomyopathy, unspecified I42.9 ; Primary insomnia F51.01 ; Alzheimer's disease with late onset G30.1 and CAMDEN (generalized anxiety disorder) F41.1 [facility] [place] [address] [address] 05/13/2024 Patric Jose Luis Bipolar disorder, current episode depressed, mild F31.31 ; Cardiomyopathy, unspecified I42.9 ; Primary insomnia F51.01 ; Alzheimer's disease with late onset G30.1 and CAMDEN (generalized anxiety disorder) F41.1 [facility] [place] [address] [address] 06/14/2024 Patric Jose Luis Bipolar disorder, current episode depressed, mild F31.31 ; Cardiomyopathy, unspecified I42.9 ; Primary insomnia F51.01 ; Alzheimer's disease with late onset G30.1 ; CAMDEN (generalized anxiety disorder) F41.1 ; Hyperlipidemia E78.5 ; Left bundle branch block (LBBB) I44.7 and Hypothyroidism E03.9 [facility] [place] [id number] [facility] [address] [address] 07/15/2024 Patric Jose Luis Bipolar disorder, current episode depressed, mild F31.31 ; Cardiomyopathy, unspecified I42.9 ; Primary insomnia F51.01 ; Alzheimer's disease with late onset G30.1 ; CAMDEN (generalized anxiety disorder) F41.1 ; Hyperlipidemia E78.5 ; Left bundle branch block (LBBB) I44.7 and Hypothyroidism E03.9 [facility] [place] [address] [facility] [address] [place] [address] 09/19/2024 Patric Jose Luis Bipolar disorder, current episode depressed, mild F31.31 ; Cardiomyopathy, unspecified I42.9 ; Primary insomnia F51.01 ; Alzheimer's disease with late onset G30.1 ; CAMDEN (generalized anxiety disorder) F41.1 ; Hyperlipidemia E78.5 ; Left bundle branch block (LBBB) I44.7 and Hypothyroidism E03.9 [facility] [address] [facility] [address] [place] [address] 10/17/2024 Patric Jose Luis Bipolar disorder, current episode depressed, mild F31.31 ; Primary insomnia F51.01 ; Alzheimer's disease with late onset G30.1 ; CAMDEN (generalized anxiety disorder) F41.1 ; Hyperlipidemia E78.5 and Hypothyroidism E03.9 [facility] [address] [address] 11/14/2024 Patric Jose Luis Encounter for screen ing for depression Z13.31 ; Encounter for screening for cardiovascular disorders Z13.6 ; Bipolar disorder, current episode depressed, mild F31.31 ; Primary insomnia F51.01 ; Alzheimer's disease with late onset G30.1 ; CAMDEN (generalized anxiety disorder) F41.1 ; Hyperlipidemia E78.5 and Hypothyroidism E03.9 [facility] [place] [address] [facility] [address] [place] [address] 12/12/2024 Patric Jose Luis Encounter for screen ing for cardiovascular disorders Z13.6 ; Encounter for screening for depression Z13.31 ; Bipolar disorder, current episode depressed, mild F31.31 ; Primary insomnia F51.01 ; Alzheimer's disease with late onset G30.1 ; CAMDEN (generalized anxiety disorder) F41.1 ; Hyperlipidemia E78.5 and Hypothyroidism E03.9 [facility] [place] [address] [address] 01/09/2025 Patric Jose Luis Bipolar disorder, current episode depressed, mild F31.31 ; Primary insomnia F51.01 ; Alzheimer's disease with late onset G30.1 ; CAMDEN (generalized anxiety disorder) F41.1 ; Negative depression screening Z13.31 and Encounter for screening for cardiovascular disorders Z13.6 [facility] [place] [address] [facility] [address] [place] [address] 02/13/2025 Patric Jose Luis Bipolar disorder, current episode depressed, mild F31.31 ; Primary insomnia F51.01 ; Alzheimer's disease with late onset G30.1 ; Dietary counseling and surveillance Z71.3 ; CAMDEN (generalized anxiety disorder) F41.1 ; Encounter for screening for cardiovascular disorders Z13.6 and Encounter for screening for depression Z13.31 [facility] [place] [address] [facility] [address] [place] [address] 03/12/2025 Patric Jose Luis Bipolar disorder, current episode depressed, mild F31.31 ; Primary insomnia F51.01 ; Alzheimer's disease with late onset G30.1 ; CAMDEN (generalized anxiety disorder) F41.1 and Heart failure, unspecified I50.9 [facility] [place] [address] [address] 08/16/2024 Patric Jose Luis Generalized anxiety disorder F41.1 [facility] [place] [address] [address] 09/13/2024 Patric Jose Luis Generalized anxiety disorder F41.1 and Primary insomnia F51.01 [facility] [address] [address] 11/26/2024 Patric Jose Luis Assessments Encounter Date [...] be confirmed. - Consider referral to a candy counter clerk or plain clothes police officer for further evaluation and management. Bipolar Disorder [...] Healthcare Access - Assessment: The patient has [employer] insurance and is concerned about potential changes in network coverage, specifically mentioning [employer] potentially going out of network. - Plan: [...] assistive devices or physical therapy if needed. 04/12/2024 Bipolar disorder, current episode depressed, mild [...] well-being and provide support as needed. 06/14/2024 Bipolar disorder, current episode depressed, mild [...] progress and address any new concerns. 02/13/2025 Bipolar disorder, current episode depressed, mild (ICD-10 - F31.31) 02/13/2025 Primary insomnia (ICD-10 - F51.01) 01/09/2025 Bipolar disorder, current episode depressed, mild (ICD-10 - F31.31) 12/12/2024 Encounter for screening for cardiovascular disorders (ICD-10 - Z13.6) 11/14/2024 Encounter for screening for depression (ICD-10 - Z13.31) 10/17/2024 Bipolar disorder, current episode depressed, mild (ICD-10 - F31.31) Bipolar Disorder: Care Instructions material was published 10/17/2024 Primary insomnia (ICD-10 - F51.01) 05/13/2024 Bipolar disorder, current episode depressed, mild [...] Plan: Encourage patient to follow up with candy counter clerk and primary care physician for further [...] I want to see your smiling face. 03/12/2025 Bipolar disorder, current episode depressed, mild (ICD-10 - F31.31) 03/12/2025 Primary insomnia (ICD-10 - F51.01) 03/12/2025 Alzheimer's disease with late onset (ICD-10 - G30.1) Patient reports difficulty with memory and cognition. Patient is planning to see an eye doctor due to vision concerns. - Continue current medication regimen including Donepezil. - Assess progress in one month. Patient reports feeling less sharp than usual. Considers reducing Donapazole to address fatigue. - Consider reducing Donapazole to address fatigue. - Monitor memory issues and adjust treatment as needed. 10/17/2024 Alzheimer's disease with late onset (ICD-10 - G30.1) 12/12/2024 Encounter for screening for depression (ICD-10 - Z13.31) 01/09/2025 Primary insomnia (ICD-10 - F51.01) 02/13/2025 Alzheimer's disease with late onset (ICD-10 - G30.1) CancelRx Response got Denied on 2025-03-20 14:14:48 for 'Donepezil HCl 10 MG Tablet'Pharmacy Notes: Prescription not found. Contact Pharmacy by other means Patient reports difficulty with memory and cognition. Patient is planning to see an eye doctor due to vision concerns. - Continue current medication regimen including Donepezil. - Assess progress in one month. 06/14/2024 Cardiomyopathy, unspecified (ICD-10 - I42.9) Legal [...] Support - Assessment: Patient is working with [employer] for Medicaid application, despite concerns about eligibility. [...] monitor progress and address any new concerns. 04/12/2024 Primary insomnia (ICD-10 - F51.01) Schizoaffective [...] emotional well-being and provide support as needed. 09/19/2024 Cardiomyopathy, unspecified (ICD-10 - I42.9) Sciatica [...] symptoms or concerns during this time. 07/15/2024 Cardiomyopathy, unspecified (ICD-10 - I42.9) Shortness [...] be confirmed. - Consider referral to a candy counter clerk or plain clothes police officer for further evaluation and management. Bipolar Disorder [...] Healthcare Access - Assessment: The patient has [employer] insurance and is concerned about potential changes in network coverage, specifically mentioning [employer] potentially going out of network. - Plan: [...] devices or physical therapy if needed. 11/14/2024 Encounter for screening for cardiovascular disorders (ICD-10 - Z13.6) 05/13/2024 Cardiomyopathy, unspecified (ICD-10 - I42.9) Mood [...] Plan: Encourage patient to follow up with candy counter clerk and primary care physician for further [...] want to see your smiling face. 09/19/2024 Primary insomnia (ICD-10 - F51.01) Sciatica [...] symptoms or concerns during this time. 07/15/2024 Primary insomnia (ICD-10 - F51.01) Shortness [...] be confirmed. - Consider referral to a candy counter clerk or plain clothes police officer for further evaluation and management. Bipolar Disorder [...] Healthcare Access - Assessment: The patient has [employer] insurance and is concerned about potential changes in network coverage, specifically mentioning [employer] potentially going out of network. - Plan: [...] assistive devices or physical therapy if needed. 04/12/2024 Alzheimer's disease with late onset (ICD-10 [...] Support - Assessment: Patient is working with [employer] for Medicaid application, despite concerns about eligibility. [...] progress and address any new concerns. 02/13/2025 Dietary counseling and surveillance (ICD-10 - Z71.3) 03/12/2025 CAMDEN (generalized anxiety disorder) (ICD-10 - F41.1) [...] - Assess progress in one month. 01/09/2025 Alzheimer's disease with late onset (ICD-10 - G30.1) 12/12/2024 Bipolar disorder, current episode depressed, mild (ICD-10 - F31.31) 10/17/2024 CAMDEN (generalized anxiety disorder) (ICD-10 - F41.1) 05/13/2024 Primary insomnia (ICD-10 - F51.01) Mood [...] Plan: Encourage patient to follow up with candy counter clerk and primary care physician for further [...] I want to see your smiling face. 11/14/2024 Bipolar disorder, current episode depressed, mild (ICD-10 - F31.31) Bipolar Disorder: Care Instructions material was published 11/14/2024 Primary insomnia (ICD-10 - F51.01) 05/13/2024 Alzheimer's disease with late onset (ICD-10 [...] Plan: Encourage patient to follow up with candy counter clerk and primary care physician for further [...] want to see your smiling face. 10/17/2024 Hyperlipidemia (ICD-10 - E78.5) 12/12/2024 Primary insomnia (ICD-10 - F51.01) 01/09/2025 CAMDEN (generalized anxiety disorder) (ICD-10 - F41.1) 02/13/2025 CAMDEN (generalized anxiety disorder) (ICD-10 - [...] clonazepam. - Assess progress in one month. 06/14/2024 Alzheimer's disease with late onset (ICD-10 [...] Support - Assessment: Patient is working with [employer] for Medicaid application, despite concerns about eligibility. [...] monitor progress and address any new concerns. 04/12/2024 CAMDEN (generalized anxiety disorder) (ICD-10 - [...] emotional well-being and provide support as needed. 07/15/2024 Alzheimer's disease with late onset [...] be confirmed. - Consider referral to a candy counter clerk or plain clothes police officer for further evaluation and management. Bipolar Disorder [...] Healthcare Access - Assessment: The patient has [employer] insurance and is concerned about potential changes in network coverage, specifically mentioning [employer] potentially going out of network. - Plan: [...] devices or physical therapy if needed. 09/19/2024 Alzheimer's disease with late onset (ICD-10 [...] in symptoms or concerns during this time. 03/12/2025 Heart failure, unspecified (ICD-10 - I50.9) Patient reports shortness of breath related to congestive heart failure. Recent check-up indicated heart condition was fine. Patient remains worried about health. - Monitor symptoms of shortness of breath. - Consider medication adjustments if symptoms persist. 07/15/2024 CAMDEN (generalized anxiety disorder) (ICD-10 - [...] be confirmed. - Consider referral to a candy counter clerk or plain clothes police officer for further evaluation and management. Bipolar Disorder [...] Healthcare Access - Assessment: The patient has [employer] insurance and is concerned about potential changes in network coverage, specifically mentioning [employer] potentially going out of network. - Plan: [...] devices or physical therapy if needed. 09/19/2024 CAMDEN (generalized anxiety disorder) (ICD-10 - [...] symptoms or concerns during this time. 06/14/2024 CAMDEN (generalized anxiety disorder) (ICD-10 - [...] Support - Assessment: Patient is working with [employer] for Medicaid application, despite concerns about eligibility. [...] progress and address any new concerns. 02/13/2025 Encounter for screening for cardiovascular disorders (ICD-10 - Z13.6) 01/09/2025 Negative depression screening (ICD-10 - Z13.31) 12/12/2024 Alzheimer's disease with late onset (ICD-10 - G30.1) 10/17/2024 Hypothyroidism (ICD-10 - E03.9) 11/14/2024 Alzheimer's disease with late onset (ICD-10 - G30.1) 05/13/2024 CAMDEN (generalized anxiety disorder) (ICD-10 - [...] Plan: Encourage patient to follow up with candy counter clerk and primary care physician for further [...] I want to see your smiling face. 12/12/2024 CAMDEN (generalized anxiety disorder) (ICD-10 - F41.1) 11/14/2024 CAMDEN (generalized anxiety disorder) (ICD-10 - F41.1) 01/09/2025 Encounter for screening for cardiovascular disorders (ICD-10 - Z13.6) 02/13/2025 Encounter for screening for depression (ICD-10 - Z13.31) 06/14/2024 Hyperlipidemia (ICD-10 - E78.5) Legal Issues [...] Support - Assessment: Patient is working with [employer] for Medicaid application, despite concerns about eligibility. [...] progress and address any new concerns. 09/19/2024 Hyperlipidemia (ICD-10 - E78.5) Sciatica Pain [...] symptoms or concerns during this time. 07/15/2024 Hyperlipidemia (ICD-10 - E78.5) Shortness of [...] be confirmed. - Consider referral to a candy counter clerk or plain clothes police officer for further evaluation and management. Bipolar Disorder [...] Healthcare Access - Assessment: The patient has [employer] insurance and is concerned about potential changes in network coverage, specifically mentioning [employer] potentially going out of network. - Plan: [...] devices or physical therapy if needed. 07/15/2024 Left bundle branch block (LBBB) (ICD-10 [...] be confirmed. - Consider referral to a candy counter clerk or plain clothes police officer for further evaluation and management. Bipolar Disorder [...] Healthcare Access - Assessment: The patient has [employer] insurance and is concerned about potential changes in network coverage, specifically mentioning [employer] potentially going out of network. - Plan: [...] devices or physical therapy if needed. 09/19/2024 Left bundle branch block (LBBB) (ICD-10 [...] symptoms or concerns during this time. 06/14/2024 Left bundle branch block (LBBB) (ICD-10 [...] Support - Assessment: Patient is working with [employer] for Medicaid application, despite concerns about eligibility. [...] monitor progress and address any new concerns. 11/14/2024 Hyperlipidemia (ICD-10 - E78.5) 12/12/2024 Hyperlipidemia (ICD-10 - E78.5) 12/12/2024 Hypothyroidism (ICD-10 - E03.9) 11/14/2024 Hypothyroidism (ICD-10 - E03.9) 06/14/2024 Hypothyroidism (ICD-10 - E03.9) Legal Issues [...] Support - Assessment: Patient is working with [employer] for Medicaid application, despite concerns about eligibility. [...] progress and address any new concerns. 09/19/2024 Hypothyroidism (ICD-10 - E03.9) Sciatica Pain [...] be confirmed. - Consider referral to a candy counter clerk or plain clothes police officer for further evaluation and management. Bipolar Disorder [...] Healthcare Access - Assessment: The patient has [employer] insurance and is concerned about potential changes in network coverage, specifically mentioning [employer] potentially going out of network. - Plan: [...] devices or physical therapy if needed. 05/13/2024 Other referral to the local chapter or national office of the Alzheimer's Association ( ; http://www.alz. org), the Alzheimer's Disease Education and Referral Center (ADEAR) ( ; http://www.jorge. nih.gov/Alzheim ers/), Mood and Depression - Assessment: Patient reports [...] Plan: Encourage patient to follow up with candy counter clerk and primary care physician for further [...] to Furosemide (Lasix) issue. Upcoming appointment with guide foreign tour on the . - Plan: - Monitor [...] member for money and food. Power of employee benefits attorney is with brother Mauricio Pacheco. - Plan: - Encourage patient to discuss financial concerns with power of employee benefits attorney and establish boundaries with family members. [...] cardiac device monitoring - Follow up with candy counter clerk as scheduled in February [employer] [...] without a caregiver for 2 months. A wire rope sales representative from an aging services organization has contacted [employer] to address this issue. Plan: - Follow up on the status of caregiver assignment through [employer] Disclaimer: This note has been transcribed using speech recognition software and serves as a reflection of the patient's visit. While efforts have been made to ensure accuracy, there may be errors, including stock order lister inaccuracies and misspellings of medication names. This document should not be considered a verbatim record, and any discrepancies should be verified with the provider. 01/09/2025 Other Medication Management and Access - Assessment: Patient reports discontinuation of Entresto due to loss of sample access and high [id number] costs (approximately $600/month). This has led to [...] or reduced-cost medications. - Follow up with candy counter clerk (Dr. Rodriguez) regarding medication changes and [...] and daily functioning. - Consider referral to medical social consultant for additional support if needed. Mood and [...] medications. - Assess progress in one month. 03/12/2025 Other Gait, Strength, and Balance Training ExercisesThis handout provides simple exercises to improve your gait, strength, and balance. Theseexercises can help prevent falls, improve mobility, and enhance overall function. Perform them in asafe space, use support if needed, and stop if you feel pain or dizziness.1. Gait Training Exercises- Walk in a straight line for 10-20 feet, heel-to-toe.- Step over small objects (cones or rolled towels).- Practice walking sideways and backwards.- Use a treadmill if available, under supervision.2. Balance Exercises- Stand on one foot for 10-30 seconds; switch legs.- Walk heel-to-toe in a straight line.- Use a balance board or cushion to challenge stability.- Practice rising from a chair without using your hands.3. Strength Training Exercises- [id number]: rise from a chair repeatedly.- Wall push-ups: stand at arm's length from a wall and push.- Step-ups on a low step or stairs.- Leg lifts while seated or lying down.Consult your primary care provider (PCP) before starting these exercises, especially if you havemedical conditions or difficulty performing them Patient reports dry mouth, bothersome. Patient drinks to alleviate dry mouth. - Consider hydration strategies to alleviate dry mouth. Patient reports dry eyes, bothersome. - Consider eye drops or other treatments for dry eyes. Plan Of Treatment Next Appt Details Provider Name:Patric Amaya , 04/09/2025 01:00:00 PM, [address], [facility] [address], [place], [address], Provider Name:Patric Amaya , 05/14/2025 01:15:00 PM, [address], [facility] [address], [place], [address], Provider Name:Patric Amaya , 06/11/2025 01:00:00 PM, [address], [facility] [address], [place], [address], Provider Name:Patric Amaya , 07/09/2025 01:00:00 PM, [address], [address], [address], Insurance Providers Payer Name Payer Address Payer Phone Subscriber Number Group Number Insured Name Patient Relationship to Insured Coverage Start Date Coverage End Date [facility] Medicare Replacement/ Advantage - Ppo [address] [address] [place] [address] [id number] JAILENE MARTINO Self - patient is the [...] Date(Month/Year) Implantation of cardiac defibrillator libby cook ([id number]) 04/12/2021
--- OUTSIDE RECORDS SUMMARY | 2025-03-24 22:05 | XMS_ITS | Encounter Summary ---
Author Organization [facility] Address [address] [facility] [address] [place] [address] Care Team Providers Care Risk Tech Name Role Phone Lana Tovar MD Primary Care Provider + Lana Tovar MD Primary Care Provider + Bandar Gaffney MD Unavailable [phone] Dillan Reddy MD Primary Care Provide r Encounter Details Date Type Department Care Team (Late st Contact Info) Description 2016 Orders Only [facility] ProviderSaurabh MD [address] [place] [address] Social History Tobacco Use Types Packs/Day Years Used Date Smoking Tobacco: Never Alcohol Use Standard Drinks/Week Comments No 0 (1 standard drink = 0.6 oz pur e alcohol) Comments Unknown Sex and Gender Information Value Date Recorded Sex Assigned at Not on file 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
--- OUTSIDE RECORDS SUMMARY | 2025-03-24 22:05 | XMS_ITS | Clinical Summary ---
Author Organization [facility] Address [address] [place] [address] Phone Care Team Providers Care Sort Line Worker Name Role Phone Lana Tovar MD Primary [...] 02/22/2022, 06/30/2021, Additional history exists Influenza Immunization (#1) 2025 0910/2021, 06/12/2021, 05/12/2020, Additional history exists Colonoscopy Discontinued [...] to complete this topic Insurance MEDICARE [facility] Care Teams Sort Line Worker Relationship Specialty Start Date End Date Lana Tovar MD [address] [place] [address] PCP - General Family Medicine 12/23/16
--- OUTSIDE RECORDS SUMMARY | 2025-03-24 22:05 | XMS_ITS | Clinical Summary ---
Author Organization [facility] Address [address] [place] [address] Care Team Providers Care Foam Charger Name Role Phone Unavailable Primary Care Provider [...] Documents on File Type Date Recorded Patient Egg Sorter Expl anation Advance Directives and Living Will 01/14/2016 12:00 AM ADVANCED DIRECTIVES
--- OUTSIDE RECORDS SUMMARY | 2025-03-24 22:05 | XMS_ITS | Encounter Summary ---
Author Organization [facility] Healthcare Address [address] [place] [address] Care Team Providers Care Forest Practices Field Coordinator Name Role Phone Bandar Gaffney MD Unavailable [phone] Dillan Reddy MD Primary Care Provide r Encounter Details Date Type Department Care Team (Late st Contact Info) Description 12/04/2024 Telephone [facility] Cardiology [address] [facility] [address] [facility] [address] [place] [phone] Samy Ceja MD [address] [facility] [address] [place] [address] Social History Tobacco Use Types [...] often do you attend chur ch or uatsdin services? 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
--- OUTSIDE RECORDS SUMMARY | 2025-03-24 22:05 | XMS_ITS | Clinical Summary ---
Author Organization [facility] [address] Address [address] [place] [address] Care Team Providers Care Comparison Shopper Name Role Phone Bandar Gaffney MD Unavailable [phone] Dillan Reddy MD Primary Care Provide r [...] in situ 04/13/2021 Overview (04/21/2023): Dodge DDD Dryden BI-V ICD imp on 04/12/21 for DCM, [place], Afib. Yeimy. Nora. Jose De Jesus formerly [facility], [facility]. Bluetooth Circuit Component Advisory--risk for loss of [...] Description 02/19/2025 1:30 PM CDT Ancillary Procedure [facility] [address] [place] [address] [place] [phone] Dilated cardiomyopathy (HCC); VT (ventricular tachycardia) (HCC); ICD (implantable cardioverter-defibrill ator), biventricular, in situ; Paroxysmal atrial fibrillation (HCC) 02/10/2025 Telephone [facility] [address] [place] [address] [place] [phone] Samy Ceja MD 01/13/2025 Telephone [facility] [address] [place] [address] [address] [place] [address] Samy Ceja MD 01/06/2025 10:00 AM CDT Office Visit [facility] at [address] [place] [phone] Samy Ceja MD Dilated cardiomyopathy (HCC) (Primary Dx) 01/02/2025 Telephone [facility] [address] [place] [address] [address] [place] [phone] Samy Ceja MD 01/01/2025 Telephone [facility] Cardiology [address] [place] [address] Samy Ceja MD from Last [...] 04/13/2021 How often do you attend chur [employer] or faith services? 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 Gender Identity Not on file Sexual [...] Fall Risk Assessment 03/26/2024 03/26/2023 Covid-19 Vaccine (6 - 2023-2 5 season) 2024 05/26/2022, 02/22/2022, 06/30/2021, Additional history exists Influenza Vaccine (#1) 2025 , 05/12/2020, 06/04/2019, Additional history exists Zoster Vaccine Completed 05/01/2018, 01/04/2018 Pneumococcal vaccine 65+ Completed 05/15/2018, 11/2015 Medical Devices Implanted Type Area Chemical Equipment Repairer Device Identifier Shelf Expiration Date Model / Serial / Lot Dodge Vascular [id number] Defib Cardiac [id number] Dryden Hf Df4 Is-4 Is-1 Cnctr - [id number] - [id number] Implanted:Qty: 1 on 04/12/2021 by Bandar Gaffney MD at [facility] ICD Dodge Vascular [id number] 02/01/2023 C [id number] / [id number] / [employer] 7120q/65 Durata 7fr 65cm 2 Coil Df-4 True Bipolar Active Fixation - [id number] - [id number] Implanted:Qty: 1 on 04/12/2021 by Bandar Gaffney MD at [facility] Lead [employer] [id number] 02/01/2022 7120Q/65 / [id number] / [employer] 2088tc/52 Tendril Sts 6fr 52cm Is-1 Connector Active Fixation Bipolar Soft - [id number] - [id number] Implanted:Qty: 1 on 04/12/2021 by Bandar Gaffney MD at [facility] Lead [employer] [id number] 03/03/2024 2088TC/52 / [id number] / [employer] 1458q/86 Quartet 5fr [id number] 4 Electrode Is-4 Connector Steerable Tip - [id number] - [id number] Implanted:Qty: 1 on 04/12/2021 by Bandar Gaffney MD at [facility] Lead [employer] [id number] 02/02/2024 1458Q/86 / [id number] / Procedures Procedure Name Priority Date/Time Associated [...] Narrative 02/25/2025 12:51 PM CDT Dodge DDD Dryden BI-V ICD imp on 04/12/21 for DCM, [place], Afib. EP-Yeimy. Card-Marcial. [place] remote. Bluetooth Circuit Component Advisory. Supervising MD: [...] Last 3 Months Insurance [employer] MEDIC[facility] Address: [address] [address] [place] [id number] [employer] MEDICARE [facility] Address: [address] [address] [place] [address] [employer] MED[employer] [facility] Address: [address] [address] [place] [address] Advance Directives For more information, please contact: [phone] * Full Code (Latest Code Status on File) Date Activated Date Inactivated Comments 03/23/2023 7:04 AM 03/26/2023 7:27 PM Care Teams Comparison Shopper Relationship Specialty Start Date End Date Dillan Reddy MD [address] [address] PCP - General Internal Medicine 11/09/23 Bandar Gaffney MD Consulting Physician Cardiology 04/13/21
[2025-03-24 22:06] LABS: INR 4.0; Partial Thromboplastin Time 22.2 Seconds (22.3-36.8); Prothrombin Time 36.9 Seconds (11.1-14.7)
--- OUTSIDE RECORDS SUMMARY | 2025-03-24 22:06 | XMS_ITS | Encounter Summary ---
Author Organization [facility] Healthcare Address [address] [place] [address] Care Team Providers Care Quality Assistant Name Role Phone Lana Tovar MD Primary Care Provider + Bandar Gaffney MD Unavailable [phone] Dillan Reddy MD Primary Care Provide r Encounter Details Date Type Department Care Team (Late st Contact Info) Description 03/26/2018 Orders Only [facility] Health Information Management [address] [place] [address] Scanning, Provider Social History Tobacco Use Types Packs/Day Years Used Date Smoking Tobacco: Never Smokeless Tobacco: Never Alcohol Use Standard Drinks/Week Comments No 0 (1 standard drink = 0.6 oz pur e alcohol) Comments Unknown Sex and Gender Information Value Date Recorded Sex Assigned at Not on file 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 Gender Identity Not on file Sexual Orientation Not on file documented as of this encounter Plan of Treatment Not on file documented as of this encounter Procedures Procedure Name Priority Date/Time Associated Diagnosis Comments SCAN - LABS 03/26/2018 documented in this encounter Results * SCAN - LABS (03/26/2018) us Provider Scanning Final Result documented in this encounter Visit Diagnoses Not on filedocumented in this encounter Care Teams Quality Assistant Relationship Specialty Start Date End Date Lana Tovar MD PCP - General 3/31/17 3/6/24 Dillan Reddy MD [address] [address] PCP - General Internal Medicine 11/09/23 Bandar Gaffney MD Consulting Physician Cardiology 04/13/21 documented as of this encounter
--- OUTSIDE RECORDS SUMMARY | 2025-03-24 22:06 | XMS_ITS | Data Portability ---
Author Organization MD - S [facility], Main Office Address [address] [place] [address] Care Team Providers Care Welfare Supervisor Name Role Phone ELIAZARMANDYJUNIORLayneGARLAND Primary Care Provider LANA TOVAR Referring Provider PEDRO AMAYA Psychiatrist LORETA HAQUE Hand Embroiderer JENNIFFER ROJAS Guide [employer] [phone] EVON CEJA Cardiac Surgeon [phone] Assessment Encounter Date Assessment Date Assessment LastModified by Organization Details LastModified Time 10/14/2024 10/14/2024 01/02/2024: ER labs WBC 16.5H Cr 1.10, Gluc 218 Trop 0.059H Xr chest mild pulm edema 06/12/2024: TG 192 K 3.4, gluc 62, BUN 22, Cr 1.83, GFR 27, AST 63 MCV 105.0 09/16/2024: K 5,4, BUN 27, Cr 1.51, GFR 33, ALT 40 TG 231 MCV 105 Not available 10/14/2024 16:11:30 11/18/2024 11/18/2024 01/02/2024: ER labs WBC 16.5H Cr 1.10, Gluc 218 Trop 0.059H Xr chest mild pulm edema 06/12/2024: TG 192 K 3.4, gluc 62, BUN 22, Cr 1.83, GFR 27, AST 63 MCV 105.0 09/16/2024: K 5,4, BUN 27, Cr 1.51, GFR 33, ALT 40 TG 231 MCV 105 Not available 11/18/2024 11:37:17 01/01/2025 01/01/2025 Assessment: Never smoker (2nd hand smoking) Mild COPD Plan: The following were reviewed and explained to the patient: Chest CT 03/23/21 no P.E., up to [address] 12/13/23 up to 6 mm RUL nodules and GGO Chest CT 04/22/24 no nodules Babcock PFT 05/25/23 decreased FEV1/FVC, FEV1 1.52 L (73%), TLC 5.26 L (101%), RV 3.04 L (128%), DLCO 54%, DLCO/VA 74% Babcock PFT 11/08/24 decreased FEV1/FVC, FEV1 1.28 L (73%), TLC 4.91 L (107%), RV 3.08 L (138%), DLCO 46%, DLCO/VA 84% Cough/Dyspnea workup will be done as follows: Respiratory allergen panel for [facility] Serum IgE Serum total IgG, IgG1, IgG2, IgG3, IgG4 Kxoeh-2-gdeddupqws n phenotype and level TB stimulated gamma [...] PCP for further management. Follow-up: 3 weeks Not available 01/01/2025 15:13:24 01/13/2025 01/13/2025 01/02/2024: ER labs WBC 16.5H Cr 1.10, Gluc 218 Trop 0.059H Xr chest mild pulm edema 06/12/2024: TG 192 K 3.4, gluc 62, BUN 22, Cr 1.83, GFR 27, AST 63 MCV 105.0 09/16/2024: K 5,4, BUN 27, Cr 1.51, GFR 33, ALT 40 TG 231 MCV 105 Not available 01/13/2025 16:18:49 03/13/2025 03/13/2025 Assessment: Never smoker (2nd hand smoking) Mild COPD Multiple environmental allergies IgE 217 kU/L (+) Aspergillus fumigatus IgE Low IgG2 Elevated proBNP CHF EF 32% Atrial fibrillation Plan: The following were reviewed and explained to the patient: Chest CT 03/23/21 no P.E., up to [address] 12/13/23 up to 6 mm RUL nodules and GGO Chest CT 04/22/24 no nodules Babcock PFT 05/25/23 decreased FEV1/FVC, FEV1 1.52 L (73%), TLC 5.26 L (101%), RV 3.04 L (128%), DLCO 54%, DLCO/VA 74% Babcock PFT 11/08/24 decreased FEV1/FVC, FEV1 1.28 L (73%), TLC 4.91 L (107%), RV 3.08 L (138%), DLCO 46%, DLCO/VA 84% Lab data 02/17/25 multiple environmental allergies, high IgE, (+) Aspergillus fumigatus IgE, low IgG2, elevated proBNP Patient may need gammaglobulin infusions during times of infection. Advised to continue not to smoke. Continue albuterol HFA 1 puff every 4 hours [...] records to PCP for further management. Follow-up: 1 year, March 2026 Not available 03/13/2025 15:20:22 Plan of Treatment Reminders Order Date Submit Date Provider Last Modified By Organization Details Last Modified Time Details Appointments Medicare Wellness 2024 01:15P Isabel santoyo MD Not available Not available Not available Any 2025 02:00P Isabel Haque MD Not available Not available Not available Lab CMP, serum or plasma 2024 025 [email or web address] [facility] (Lab), [address] [place], [address], 01/13/2025 15:45:34 lipid panel, serum 2024 025 [email or web address] [facility] (Lab), [address] [place], [address], 01/13/2025 15:45:35 CBC w/ auto diff [address] (Lab), [address] [place], [address], 01/13/2025 15:45:35 TSH, serum or plasma [address] (Lab), [address] [place], [address], 01/13/2025 15:45:36 T4, free, serum [address] [place] [address] (Lab), [address] [place], [address], 01/13/2025 15:45:36 vitamin B12 + folate, serum or blood [address] [place] [address] (Lab), [address] [place], [address], 01/13/2025 15:45:36 alpha-1-a ntitrypsi n (aat) phenotype , serum [address] - Outpatient Lab, [address] [place], [address], 01/01/2025 15:18:12 BNP (B-type natriuret ic peptide), serum or plasma [address] - Outpatient Lab, [address] [place], [address], 01/01/2025 15:18:12 ige, total, serum [address] [place] [address] - Outpatient Lab, [address] [place], [address], 01/01/2025 15:18:12 tb (M tuberculo sis), ifn-gamma giovanni, blood 2024 025 [facility] Outpatient Lab, [address] [place], [address], 02/21/2025 08:41:01 eosinophi l count, manual, blood (OBS) 2024 025 [facility] Outpatient Lab, [address] [place], [address], 02/21/2025 08:41:[address] 1+2+3+4, serum [address] Outpatient Lab, [address] [place], [address], 01/01/2025 15:18:11 respirato ry allergen panel - [facility] b 2024 025 [facility] Outpatient Lab, [address] [place], [address], 02/21/2025 08:39:13 CMP, serum or plasma 2024 025 [facility] (Lab), [address] [place], [address], 02/20/2025 16:21:31 lipid panel, serum 2024 025 [facility] (Lab), [address] [place], [address], 11/18/2024 12:40:38 CBC w/ auto diff 2024 025 [facility] (Lab), [address] [place], [address], 11/18/2024 12:40:38 TSH, serum or plasma 2024 025 [facility] (Lab), [address] [place], [address], 11/18/2024 12:40:38 T4, free, serum 2024 025 [facility] (Lab), [address] [place], [address], 11/18/2024 12:40:38 vitamin B12 + folate, serum or blood 2024 025 [facility] (Lab), [address] [place], [address], 11/18/2024 12:40:38 potassium , serum 2024 025 [email or web address] [facility], [address], [place], [address], 11/13/2024 10:56:50 CMP, serum or plasma [address] (Lab), [address] [place], [address], 10/16/2024 10:04:23 lipid panel, serum [address] (Lab), [address] [place], [address], 10/16/2024 10:04:23 CBC w/ auto diff [address] (Lab), [address] [place], [address], 10/16/2024 10:04:24 TSH, serum or plasma [address] (Lab), [address] [place], [address], 10/16/2024 10:04:24 T4, free, serum [email or web address] (Lab), [address] [place], [address], 10/16/2024 10:04:24 vitamin B12 + folate, serum or blood [email or web address] (Lab), [address] [place], [address], 10/16/2024 10:04:24 Referral gynecolog ist referral - Please call patient to schedule an appointme nt. Thank you. 2024 025 BROWN Conway MD, [address], [place], [address], 01/16/2025 12:47:49 pulmonolo gist referral - Please call patient to schedule an appointme nt. Thank you. 2024 025 hrushingWallace Haque MD, [address] [place], [address], 01/20/2025 08:59:55 gynecolog ist referral - Please call patient to schedule an appointme nt. Thank you. 2024 025 rupal Conway MD, [address], [place], [address], 02/25/2025 09:35:08 gastroent erologist referral - Please call patient to schedule an appointme nt. Thank you. 2024 025 rupal De La Cruz MD, [address], [place], [address], 02/25/2025 09:35:09 nephrolog ist referral - Please call patient to schedule an appointme nt. Thank you. 2024 025 rupal Causey MD, [address], [address], [place], [address], 02/25/2025 09:35:09 pulmonolo gist referral - Please call patient to schedule an appointme nt. Thank you. 2024 025 rupal Haque MD, [address] [place], [address], 02/25/2025 09:34:59 gynecolog ist referral - Please call patient to schedule an appointme nt. Thank you. 2024 025 rupal Conway MD, [address], [place], [address], 02/10/2025 12:40:57 nephrolog ist referral - Please call patient to schedule an appointme nt. Thank you. 2024 025 rupal Causey MD, [address], [place], [address], 02/10/2025 12:40:58 pulmonolo gist referral - Please call patient to schedule an appointme nt. Thank you. 2024 025 rupal Haque MD, [address] [place], [address], 02/10/2025 12:40:57 Procedures None recorded. Surgeries None recorded. Imaging MAMMO, screening , bilateral - Please call patient to schedule. 2024 025 [facility] (Imaging), [address], [place], [address], 01/13/2025 16:58:44 Medication Orders albuterol sulfate HFA 90 mcg/actua tion aerosol inhaler 2024 025 [facility], [address], [place], [address], 03/13/2025 15:20:32 nystatin- triamcino lone 100,000 unit/g-0. 1 % topical cream 2024 025 [facility], [address] [place], [address], 01/13/2025 15:43:11 albuterol sulfate HFA 90 mcg/actua tion aerosol inhaler 2024 025 [facility] [address], [address] [place], [address], 01/01/2025 15:14:27 amoxicill in 500 mg capsule [address] [facility], [address] [place], [address], 12/27/2024 14:45:13 warfarin 1 mg tablet [address], [address] [place], [address], 12/02/2024 09:18:18 warfarin 3 mg tablet [address], [address] [place], [address], 12/02/2024 09:18:18 Patient TargetsNo targets recorded. Patient InstructionsNo instructions recorded. Reason for Referral [employer] Referral for Gy necologic examination Please call patient to schedule an appointment. Thank you. Referring Physician: Masoud Reddy, Internal Medicine, Encounter Date: 10/14/2024 Hand Embroiderer Referral for M ultiple nodules of lung Please call patient to schedule an appointment. Thank you. Referring Physician: Masoud Reddy, Internal Medicine, Encounter Date: 10/14/2024 Ink Printer Referral for Ch ronic kidney disease Please call patient to schedule an appointment. Thank you. Referring Physician: Masoud Reddy Internal Medicine, Encounter Date: 10/14/2024 [employer] Referral for Gy necologic examination Please call patient to schedule an appointment. Thank you. Referring Physician: Masoud Reddy Internal Medicine, Encounter Date: 11/18/2024 Hand Embroiderer Referral for M ultiple nodules of lung Please call patient to schedule an appointment. Thank you. Referring Physician: Masoud Reddy Internal Medicine, Encounter Date: 11/18/2024 Ink Printer Referral for Ch ronic kidney disease Please call patient to schedule an appointment. Thank you. Referring Physician: Masoud Reddy, Internal Medicine, Encounter Date: 11/18/2024 Guide Foreign Tour Referral for Nausea Please call patient to schedule an appointment. Thank you. Referring Physician: Masoud Reddy, Internal Medicine, Encounter Date: 11/18/2024 [employer] Referral for Gy necologic examination Please call patient to schedule an appointment. Thank you. Referring Physician: Masoud Reddy Internal Medicine, Encounter Date: 01/13/2025 Hand Embroiderer Referral for M ultiple nodules of lung Please call patient to schedule an appointment. Thank you. Referring Physician: Masoud Reddy Internal Medicine, Encounter Date: 01/13/2025 Results Created Date Observation Date Name Description Value Unit Range Abnormal Flag Note LastModifiedBy Organization Detail LastModifiedTime 01/17/20 25 01/16/2025 PT/IN R PT 80.3 Not Available [facility] Internal Med [facility] [address] [facility] [address], [place], [address], 01/16/2025 14:26:29 01/17/20 25 01/16/2025 PT/IN R INR 6.7 Not Available [facility] Internal Med [facility] [address] [facility] [address], [place], [address], 01/16/2025 14:26:29 09/16/19 25 09/16/2024 XR, hip + pelvi s, unila teral , 2 or 3 view No observ ation record ed. [facility] [address] [facility] [address], [place], [address], 09/16/2024 17:41:12 11/28/19 25 11/08/2024 compl ete PFT w/ post [facility] hodil ator norberto metry * No observ ation record ed. [address] (Pulmonary) [address] [facility] [address], [place], [address], 12/08/2024 15:13:19 02/19/20 25 02/18/2025 imagi ng/di agnos tic resul t No observ ation record ed. [facility] [address] [facility] [address], [place], [address], 02/18/2025 19:39:24 Result Notes None recorded. Problems Name Problem SNOMED Code Status Onset Date Resolution Date Notes Provider Name and Address Organization Details Recorded Time Gastroesoph ageal reflux disease 895067407 Active Loreta Haque MD [address] [address], [place], [address], [employer] 5 08:34:21 Vitamin D deficiency 85326474 Active Loreta Haque MD [address] [address], [place], [address], [employer] 5 08:33:45 Hypothyroid ism 18740923 Active Loreta Haque MD [address] [address], [place], [address], [employer] 5 08:34:16 Long-term current use of anticoagula nt 283405833 Active 2020 Loreta Haque MD [address], [place], [address], [employer] 5 08:34:04 Osteoporosi s 08973860 Active 2020 DEXA Loreta Haque MD [address], [place], [address], [employer] 5 08:33:47 Essential hypertensio n 23554907 Active 2022 Loreta Haque MD [address], [place], [address], [employer] - [facility] 5 08:34:24 Moderate recurrent major depression 83000466 Active 2023 Loreta Haque MD [address], [place], [address], [facility] [facility] 5 08:33:58 Nonischemic congestive cardiomyopa thy 620610546271 Active 2023 Loreta Haque MD [address], [place], [address], [employer] - [facility] [facility] 5 08:33:55 Hiatal hernia 40722687 Active 2023 Loreta Haque MD [address], [place], [address], [employer] [facility] [employer] [facility] 5 08:34:19 Hyperlipide tay 43895817 Active 2023 Loreta Haque MD [address], [place], [address], [employer]ement [facility] [employer] [facility] 5 08:34:18 Atrial fibrillatio n 17345734 Active 2023 Loreta Haque MD [address], [place], [address], [employer] [facility] [employer] [facility] 5 08:34:34 Chronic kidney disease 393137040 Active 2024 Loreta Haque MD [address], [place], [address], [employer] - [facility] 5 08:34:30 Mild chronic obstructive pulmonary disease 501735683 Active 2024 Loreta Haque MD [address], [place], [address], [facility] [employer] [facility] 5 08:34:01 Notes:Medical History: Cereb ral atrophy Depression/Anxiety Rhinitis to multiple environmental allergens with postnasal drip (+) Aspergillus fumigatus IgE IgE 217 kU/L Hypogammaglobulinemia (IgG2) AAT PiMM 176 mg% Mild COPD Hypothyroidism Mixed hyperlipidemia Hypertension with mild LVH Severe LVE Mild LAE Elevated proBNP CHF EF 32% Atrial fibrillation Hiatal hernia with HUGO Sigmoid diverticulosis Bilateral renal cysts CKD RLS Vit B12 deficiency Vit D deficiency Femoral osteoporosis Thoracic spondylosis Lumbar DDD Lumbar levoscoliosis Procedure History: T&A 1954 OFELIA 1976 Left knee replacement 2007 Right knee replacement 2012 Exploratory laparotomy for SBO 2014 AICD placement 2021 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 Procedures Surgical History Date Name Laterality Status Provider Name and Address Organization Details Recorded Time 04/17/20 Chronic care management services completed Jaclyn Huizar [facility] 06/03/2024 19:11:19 02/26/20 Chronic care management services completed Ara Ozuna RN [facility] 02/26/2024 14:23:59 01/16/20 Chronic care management services completed Ara Ozuna RN [facility] 01/16/2024 18:07:23 12/06/19 24 Medicare Wellness CPT Code, subsequent completed PEREZ Hills [facility] 12/06/2023 14:03:15 04/10/20 Transitional_Care _Management completed THI Gatica [address], [address], [facility] 04/11/2023 08:40:38 Rotator cuff surgery completed Lorraine Morris MA [facility] 01/08/2024 11:34:43 operation on intestine completed Lorraine Morris MA [facility] 01/08/2024 11:35:04 Tonsillectomy completed Lorraine Morris MA [facility] 01/08/2024 11:35:14 Tubal Ligation completed Lorraine Morris MA [facility] 01/08/2024 11:37:01 Imaging Results None recorded. Procedure Notes None recorded. Medical Equipment None Reported. Allergies Allergen ID Allergen Name Allergen Category Reaction Reaction Severity Criticality Documentation Date Start Date Code Code System Note Provider Name and Address Organization Details Recorded Time 91645 tramadol medicatio n Not available Not available Not available 11/02/2022 52650 RxNorm Vomit ing Not Available [facility] 3 09:34:02 30112 Non-stero idal anti-infl ammatory agent (product) medicatio n hives moderate Not available 11/02/2022 57196 005 SNOMED Also CKD Not Available [facility] 3 09:34:02 52501 Lamictal medicatio n rash Not available Not available 11/02/2022 31985 2 RxNorm Not Available [facility] 3 09:34:02 57093 codeine medicatio n nausea Not available Not available 11/18/2022 2670 RxNorm MIKE Linder [address] [facility], [facility] [address], [place], [address] , [facility] [employer] 3 10:59:48 Medications Name Sig Start Date [...] Available ofloxacin 0.3 % eye drops INSTILL ONE DROP INTO THE SURGICAL EYE THREE TIMES DAILY. TO START TWO DAYS BEFORE SURGERY AND CONTINUE FOR ONE WEEK AFTER active Not Available Not Available No t [...] 1 TABLET BY MOUTH THREE TIMES DAILY FOR 30 DAYS active Not Available Not Available No [...] Not Available Not Available No t Available ketorolac 0.5 % eye drops INSTILL ONE DROP INTO THE SURGICAL EYE THREE TIMES DAILY. TO START TWO DAYS BEFORE SURGERY AND CONTINUE FOR TWO WEEKS AFTER active Not Available Not Available No t [...] Not Available Not Available No t Available prednisol one acetate 1 % eye drops,kamari pension INSTILL ONE DROP INTO THE SURGICAL EYE THREE TIMES DAILY. TO START AFTER SURGERY AND CONTINUE FOR THREE WEEKS active Not Available Not Available No t [...] 1 ML INTRAMUS CULARLY ONCE EVERY MONTH 2024 active Not Available Not Available Not Avai lable mirtazapi ne 30 mg tablet active Not [...] sulfate HFA 90 mcg/actua tion aerosol inhaler Inhale 1 puff every 4 hours by inhalati on route as needed. 2024 active Not Available Not Available Not Avai lable hydroxyzi ne HCl 10 mg tablet TAKE [...] e 50 mcg/actua tion nasal spray,kamari pension [place] 1 spray every day by intranas al [...] Not Available Not Available Not Available Fluvirin 6922-2342 45 mcg (15 mcg x 3)/0.5 mL [...] Not Available No t Available Fluzone High-Dose 8529-2716 (PF) 180 mcg/0.5 mL intramusc ular syringe 09/06 completed Not Available Not Available Not Available Fluzone High-Dose 6248-5979 (PF) 180 mcg/0.5 mL intramusc ular syringe 05/12 completed Not Available Not Available Not Available Shingrix (PF) 50 mcg/0.5 mL intramusc ular suspensio n, kit 05/12 completed Not Available Not Available Not Available Fluzone High-Dose (PF) 180 mcg/0.5 mL intramusc ular syringe 05/12 completed Not Available Not Available Not Available Fluzone High-Dose 2018- (PF) 180 mcg/0.5 mL intramusc ular syringe active Not Available Not Available Not Available Fluzone High-Dose Quad (PF) 240 mcg/0.7 mL IM syringe ADM 0.7ML IM UTD active Not Available Not Available No t Available Vitals Date Recorded Body height Body weight Body temperature Heart rate Oxygen saturation Oxygen saturation in Arterial blood by Pulse oximetry Systolic And Diastolic Provider Name and Address Organization Details Last Updated DateTime 5 167.64 cm 01170.6 3 g 97.8 [degF] 64 /min 97 % 97 % 122/82 mm[Hg] Yana Kelley MA MD [employer] [facility] [employer] 5 15:22:27 Date Recorded Body height Body mass index (BMI) Body weight Body temperature Heart rate Systolic And Diastolic Provider Name and Address Organization Details Last Updated DateTime 5 167.64 cm 29.5 kg/m2 32195.4 g 98.3 [degF] 72 /min 132/80 mm[Hg] PEREZ Hills MD [employer] [facility] [employer] 5 10:50:14 Date Recorded Heart rate Oxygen saturation Oxygen saturation in Arterial blood by Pulse oximetry Heart rate Respiratory rate Provider Name and Address Organization Details Last Updated DateTime 5 91 /min 97 % 97 % 91 /min 15 /min Loreta Haque MD [address] [place] [address], [facility] [address], [place], [address], [email or web address] 5 15:15:58 Date Recorded Body height Body mass index (BMI) Body weight Body temperature Systolic And Diastolic Provider Name and Address Organization Details Last Updated DateTime 01/01/2025 167.64 cm 28.7 kg/m2 52213.4 4 g 98.3 [degF] 124/76 mm[Hg] Lauryn Raines MA [employer] [facility] [employer] 5 14:56:19 Date Recorded Body height Body mass index (BMI) Body weight Body temperature Heart rate Oxygen saturation Oxygen saturation in Arterial blood by Pulse oximetry Systolic And Diastolic Provider Name and Address Organization Details Last Updated DateTime 5 167.64 cm 28.6 kg/m2 08520.8 5 g 98.5 [degF] 68 /min 97 % 97 % 154/84 mm[Hg] Lorraine Morris MA MD [employer] [facility] [employer] 14:50:37 Date Recorded Heart rate Respiratory rate Provider N kaleigh and Address Organization Details Last Updated DateTime 03/13/2025 61 /min 14 /min Loreta Haque MD [address] [facility], [facility] [address], [place], [address], [facility] [employer] 03/13/2025 15:08:35 Date Recorded Body height Body mass index (BMI) Body weight Body temperature Heart rate Oxygen saturation Oxygen saturation in Arterial blood by Pulse oximetry Systolic And Diastolic Provider Name and Address Organization Details Last Updated DateTime 167.64 cm 28.7 kg/m2 06214.4 4 g 98.9 [degF] 61 /min 96 % 96 % 126/84 mm[Hg] Lauryn Raines MA [facility] [employer] 14:56:32 Social History Question Answer Notes LastModified by Organization Details LastModified Time Tobacco Smoking Status Never Smoker Not Available [employer] 11/02/2022 09:26:39 Do You Have An Advance Directive? Yes [email or web address] Information not available 04/17/2024 Are You Blind Or Do You Have Difficulty Seeing? No [email or web address] Information not available 12/06/2023 Is Blood Transfusion Acceptable In An Emergency? Yes Information not available 01/16/2024 What Is Your Level Of Caffeine Consumption? Heavy 3 Coca Cola's Per Day Information not available 01/16/2024 In The 14 Days Before Symptom Onset, Have You Had Close Contact With A Laboratory-confi rmed COVID-19 While That Case Was Ill? No [id number] Information not available 11/02/2022 In The 14 Days Before Symptom Onset, Have You Had Close Contact With A Person Who Is Under Investigation For COVID-19 While That Person Was Ill? No [id number] Information not available 11/02/2022 Are You Deaf Or Do You Have Serious Difficulty Hearing? No Information not available 11/06/2023 What Type Of Diet Are You Following? REGULAR [id number] Information not available 11/02/2022 What Is The Highest Grade Or Level Of School You Have Completed Or The Highest Degree You Have Received? [id number] MIGRATION.030 [id number] Information not available 11/02/2022 Do You Have An Electrostatic Air Filter? No Information not available 01/01/2025 Have There Been Any Changes To Your Family Or Social Situation? Yes Lives With Roomate [email or web address] Information not available 01/16/2024 What Is The Fluoride Status Of Your Home? Unknown Information not available 11/06/2023 Are There Any Guns Present In Your Home? No MIGRATION.030 [id number] Information not available 11/02/2022 Do You Have A Humidifier? No Information not available 01/01/2025 Do You Use Insect Repellent Routinely? No MIGRATION.030 [id number] Information not available 11/02/2022 Where Do You Live? SingleLevelHouse Information not available 12/06/2023 Are You Able To Care For Yourself? No [email or web address] Information not available 12/06/2023 Are You Blind Or Do Yo Have Difficulty Seeing? No [email or web address] Information not available 12/06/2023 Are You Deaf Or Do You Have Serious Difficulty Hearing? No [email or web address] Information not available 12/06/2023 Live Alone Of With Others? With Others [email or web address] Information not available 12/06/2023 Do You Have A Medical Power Of Timber Inspector? Yes Brother-Jone Moore [email or web address] Information not available 01/16/2024 Do You Have Moisture Problems In Your Home? No Information not available 01/01/2025 What Was The Date Of Your Most Recent Tobacco Screening? 03/13/2025 Information not available 03/13/2025 How Many Children Do You Have? 1 [email or web address] Information not available 01/16/2024 Do You Have Any Pets? Yes 2 Cats [email or web address] Information not available 01/16/2024 What Is Your Relationship Status? MIGRATION.0301 [id number] Information not available 11/02/2022 Do You Use Your Seat Belt Or Car Seat Routinely? Yes MIGRATION.0301 [id number] Information not available 11/02/2022 Are You Sexually Active? No [email or web address] Information not available 01/16/2024 Do You Have Smoke And Carbon Monoxide Detectors In Your Home? Yes MIGRATION.0301 [id number] Information not available 11/02/2022 Are You Passively Exposed To Smoke? Yes Information not available 11/06/2023 Are There Any Smokers In Your House? Yes Information not available 11/06/2023 Do You Participate In Social Media? No MIGRATION.0301 [id number] Information not available 11/02/2022 Do You Use Sunscreen Routinely? No MIGRATION.0301 [id number] Information not available 11/02/2022 Has Tobacco Cessation Counseling Been Provided? No N/a Information not available 11/06/2023 Have You Recently Traveled Abroad? No MIGRATION.0301 [id number] Information not available 11/02/2022 Do You Have Difficulty Walking Or Climbing Stairs? Yes Uses A Walker [email or web address] Information not available 01/16/2024 Are You Currently In School? No MIGRATION.0301 [id number] Information not available 11/02/2022 Do You Have Any Dietary Restrictions? No MIGRATION.0301 [id number] Information not available 11/02/2022 Sex: Unknown Functional Status Question Answer Note LastModified by Organizat ion Details LastModified Time Do you use any illicit or recreational drugs? No MIGRATION.11847 [id number] Information not available 11/02/2022 Do you or have you ever used any other forms of tobacco or nicotine? No MIGRATION.84312 93645 Information not available 11/02/2022 What is your level of alcohol consumption? None MIGRATION.55268 59142 Information not available 11/02/2022 Are you currently employed? No [email or web address] Information not available 01/16/2024 Have you been exposed to chemicals or toxins? not that aware of Information not available 01/01/2025 Do you have transportation difficulties? No Information not available 12/06/2023 Are you able to walk? YESASSIST wheeled walker Information not available 11/06/2023 Do you have difficulty doing errands alone? Yes [email or web address] Information not available 12/06/2023 Are you able to care for yourself? No has caregiver that comes 9 hours/week [email or web address] Information not available 01/16/2024 Do you have difficulty dressing or bathing? No Information not available 11/06/2023 What is your exercise level? Occasional started doing exercises in chair 1 week ago & walks around house [email or web address] Information not available 01/16/2024 Mental Status Question Answer Note LastModified by Organizat ion Details LastModified Time Do you feel stressed (tense, restless, nervous, or anxious, or unable to sleep at night)? [id number] pt's s.o has chronic health problems and is reluctant to going to get care. This is making pt nervous. [email or web address] Information not available 02/26/2024 Do you have difficulty concentrating, remembering or making decisions? No [email or web address] Information not available 01/16/2024 Family History Relationship Description Onset Age of this Age Resolved Age Notes LastModified by Organization Details LastModified Time Mother Diabetes mellitus MIGRATION.869 [id number] Not available 11/02/2022 09:27:03 Mother Heart disease MIGRATION.675 [id number] Not available 11/02/2022 09:27:03 Father Hypertensive disorder MIGRATION.410 [id number] Not available 11/02/2022 09:27:03 Father Cerebrovascu lar [...] BLADDER PROBLEMS N APPENDICITIS N CHICKENPOX Y BAD TEETH Y BACK INJECTIONS N ALLERGIES/HAYFEVER N HISTORY OF DRUG ABUSE N GI Y BLOOD DISEASES N AUTISM SPECTRUM DISORDER (ASD) N EDEMA Y BLOOD CLOTS N EAR OR HEARING PROBLEMS N ASTHMA N Abdominal Pain N ALZHEIMER'S DISEASE N DEPRESSION (INCLUDING POST ) Y BOWEL PROBLEMS Y BACK / NECK PROBLEMS N HAVE YOU BEEN HOSPITALIZED OR SEEN IN [facility] IN THE PAST YEAR ? Y Brain Problems N ARTERIAL INSUFFICIENCY N ATHEROSCLEROSIS N HEADACHES/MIGRAINES Y BREAST PROBLEMS N AIDS/HIV N CARDIAC ARRHYTHMIA Y CANCER: SPECIFY N ANXIETY DISORDER Y BLOOD TRANSFUSION Y ANEMIA/BLOOD DISORDER Y ANEURYSM N ATRIAL FIBRILLATION Y AUTOIMMUNE DISEASE N Do you have Advance [...] virus, quadrivalent, preservative 8 completed [email or web address] 02/28/2023 16:18:39 Influenza, split virus, quadrivalent, preservative 9 completed Jaclynher [facility]izar [email or web address] 02/28/2023 16:18:39 zoster recombinant 8 completed Jaclyn Bhupendra [email or web address] 02/28/2023 16:18:39 Influenza, high-dose, quadrivalent, PF 0 completed Jaclyn [place] [email or web address] 02/28/2023 16:18:39 Influenza, high-dose, quadrivalent, PF 2 completed Jaclyn [place] [email or web address] 02/28/2023 16:18:39 Influenza, high-dose, quadrivalent, PF 1 completed Jaclyn Bhupendra [email or web address] 02/28/2023 16:18:39 COVID-19, mRNA, LNP-S, PF, 100 mcg/0.5mL dose or 50 mcg/0.25mL dose 1 completed Jaclynher Ruiziner [email or web address] 02/28/2023 16:18:39 COVID-19, mRNA, LNP-S, PF, 100 mcg/0.5mL dose or 50 mcg/0.25mL dose 1 completed Jaclyn [facility] 02/28/2023 16:18:39 COVID-19, mRNA, LNP-S, PF, 100 mcg/0.5mL dose or 50 mcg/0.25mL dose 2 completed [facility] 02/28/2023 16:18:39 COVID-19, mRNA, LNP-S, PF, 100 mcg/0.5mL dose or 50 mcg/0.25mL dose 1 completed [facility] 02/28/2023 16:18:39 COVID-19, mRNA, LNP-S, bivalent, PF, 30 mcg/0.3 mL dose 2 completed [facility] 02/28/2023 16:18:39 pneumococcal polysaccharide PPV23 6 completed [facility] 02/28/2023 16:18:39 Pneumococcal conjugate PCV 13 8 completed [facility] 02/28/2023 16:18:39 Influenza, high-dose, trivalent, PF 6 completed [facility] 02/28/2023 16:18:39 Influenza, high-dose, trivalent, PF 9 completed [facility] 02/28/2023 16:18:39 Influenza, high-dose, trivalent, PF 7 completed [facility] 02/28/2023 16:18:39 Influenza, split virus, trivalent, preservative 4 completed [facility] 02/28/2023 16:18:39 Influenza, split virus, trivalent, PF 5 completed [facility] 02/28/2023 16:18:39 Influenza, high-dose, quadrivalent, PF 3 completed Susana Kimbrough RMA null, MD - S [facility] 09/16/2024 14:07:35 COVID-19, mRNA, LNP-S, PF, 50 mcg/0.5 mL 4 completed Susana Kimbrough, RMA null, MD - S [facility] 09/16/2024 14:07:35 COVID-19, mRNA, LNP-S, PF, 50 mcg/0.5 mL 3 completed Susana Kimbrough RMA null, [facility] 09/16/2024 14:07:35 Influenza, high-dose, trivalent, PF 4 completed Susana Kimbrough RMA null, [facility] 09/16/2024 14:07:35 Past Encounters Encounter ID Performer Location Encounter Start Date Encounter Closed Date Diagnosis/Indication Diagnosis SNOMED-CT Code Diagnosis ICD10 Code Diagnosis Note [id number] Lana Tovar MD [facility] [place] [address] [facility] [address] [place] [address] 01/11/2021 00:00:00 01/20/2021 09:33:59 [id number] Lana Tovar MD [facility] [place] [address] [facility] [address] [place] [address] 01/26/2021 00:00:00 01/26/2021 10:59:18 [id number] Lana Tovar MD [facility] [place] [address] [facility] [address] [place] [address] 02/10/2021 00:00:00 03/03/2021 09:55:56 [id number] Lana Tovar MD [facility] [place] [address] [facility] [address] [place] [address] 02/17/2021 00:00:00 02/17/2021 13:19:19 [id number] [facility] [place] [address] [facility] [address] [place] [address] 02/24/2021 00:00:00 03/02/2021 13:52:08 [id number] Lana Tovar MD [facility] [place] [address] [place] [address] 04/20/2021 00:00:00 05/03/2021 19:35:15 [id number] Lana Tovar MD [facility] [place] [address] [place] [address] 05/06/2021 00:00:00 05/06/2021 21:08:51 [id number] Lana Tovar MD [facility] [place] [address] [place] [address] 06/09/2021 00:00:00 06/09/2021 10:51:15 [id number] Lana Tovar MD [facility] [place] [address] [place] [address] 09/29/2021 00:00:00 09/29/2021 13:17:41 [id number] Lana Tovar MD [facility] [place] [address] [place] [address] 01/05/2022 00:00:00 01/28/2022 13:08:49 [id number] Lana Tovar MD [facility] [place] [address] [place] [address] [address] [place] [address] 01/19/2022 00:00:00 02/01/2022 08:13:46 [id number] Lana Tovar MD [facility] [place] [address] [facility] [address] [place] [address] 02/02/2022 00:00:00 03/01/2022 14:05:51 [id number] [facility] José Powers [address] [facility] [address] [place] [address] 02/14/2022 00:00:00 02/15/2022 11:15:58 [id number] Lana Tovar MD [facility] [place] [address] [place] [address] 03/15/2022 00:00:00 04/01/2022 13:22:41 [id number] Lana Tovar MD [facility] [place] [address] [place] [address] 04/25/2022 00:00:00 04/25/2022 09:40:17 [id number] MIKE Linder [facility] [place] [address] [facility] [address] [place] [address] 05/30/2022 00:00:00 05/30/2022 12:27:10 [id number] Lana Tovar MD [facility] [place] [address] [facility] [address] [place] [address] 08/10/2022 00:00:00 09/01/2022 11:27:36 [id number] MIKE Linder [facility] [place] [address] [facility] [address] [place] [address] 11/18/2022 10:40:48 11/18/2022 11:55:25 Cough 48322606 R05.9 Pt. very congested with a wheezing cough. Covid negative.A dvised to take medication s as directed. Can continue otc medication s as needed.If no improvemen t over next 1-2 weeks will evaluate with CXR. [id number] MIKE Linder [facility] [place] [address] [facility] [address] [place] [address] 12/28/2022 11:41:11 12/28/2022 12:36:50 Long-term current use of anticoagulant 289426517 Z79.01 Currently on Warfarin 3mg daily. Bilateral cramp of muscle of lower limbs [id number] 0105784 R25.2 She states she has had symptoms for the last 1-2 weeks. No swelling/r edness. No pain during visit.Most likely benign muscle cramps.Esa l check labs today. Hypothyroidism 34125441 E03.9 Vitamin D deficiency 347 57976 E55.9 Renal mass 023486564 N28 .89 MRI scheduled for February. Cobalamin deficiency 190 259496 E53.8 [id number] Lana Tovar MD [facility] Primary Care [address] [place] [address] 02/20/2023 15:13:05 02/20/2023 15:49:01 Essential hypertension 02638149 I10 Long-term current use of anticoagulant 558014244 Z79.01 Vitamin D deficiency 347 67411 E55.9 Hypothyroidism 74174029 E03.9 Cobalamin deficiency 190 343573 E53.8 [id number] Lana Tovar MD [facility] Primary Care [address] [address] 02/23/2023 15:44:37 02/23/2023 16:52:15 Long-term current use of anticoagulant 126036401 Z79.01 [id number] Lana Tovar MD [facility] Primary Care [address] [address] 03/28/2023 15:59:26 03/28/2023 16:16:31 [id number] THI Gatica [facility] [address] [address] 04/10/2023 16:00:52 04/10/2023 17:07:19 Dizziness 883617991 R42 Has been an issue as long as she has been taking the carvedilol (not as prescribed )Will give trial meclizine Malaise and fatigue 2717 09808 R53.81 Pt was taking carvedilol 25mg BID when she was supposed to be taking 12.5mg BIDNotes no swelling in her ankles-BP seems to be stable currentlyW ill hold off on starting lasix at this time.Educa misti to take 1/2 tab of carvedilol in the morning and 1/2 tab in the evening [id number] Masoud holden MD [facility] Internal Med [facility] [address] [facility] [place] [address] 11/06/2023 11:49:23 11/06/2023 12:47:14 Screening - NAD 932879480 Z13.9 C-scope: Get this if not done, [...] understand ing of the above Essential hypertension 74524435 I10 On coreg 12.5mg bidOn entresto 49-51mg bidOn spironolac tone 25mg daily Hypothyroidism 35056700 E03.9 On levothyrox ine 150mcgs dailyGet labs Persistent insomnia 1919 50765 G47.[address] Amaya Moderate r ecurrent major depression 19282088 F33.1 On clonazepam 0.5mg tidOn venlafaxin e ER 37.5mg dailyOn vralar 1.5m daily Nonischemi c congestive cardiomyopathy 9248132352 [address] Ceja cardiology [...] one week for INr Screening mammography 24 806105 Z12.31 Screening for osteoporosis 900094344 Z13.820 Gynecologi c examination 10661867 Z01.419 Serum betty min B12 below reference range 209216945 R79.89 On b12, get labs [id number] Masoud holden MD [facility] Internal [facility] Yanni sanchez [address] [facility] [place] [address] 12/06/2023 13:58:41 12/06/2023 14:47:31 Adult health examination 746657521 Z00.00 Screening for disorder 161084703 Z13.9 Anticoagulant therapy 18 2022283 Z79.01 Screening - NAD 63882998 3 Z13.9 C-scope: Get this if not [...] understand ing of the above Essential hypertension 82286145 I10 On amiodarone 200mg dailyOn coreg 12.5mg bidOn entresto 49-51mg bidOn spironolac tone 25mg daily Hypothyroidism 01638748 E03.9 On levothyrox ine 150mcgs dailyGet labs Persistent insomnia 1919 49794 G47.09 On trazodoneG iven by Dr Amaya Moderate r ecurrent major depression 69377953 F33.1 On clonazepam 0.5mg tidOn venlafaxin e ER 37.5mg dailyOn vralar 1.5m daily Nonischemi c congestive cardiomyopathy 2240744504 [address] Ceja cardiology [...] bidOn spironolac tone 25mg dailyOn coumadin 1mg kala, INR is 1.0 11/06/2023 , will increase the coumadin to 2mg daily and RTC in one week for INr Screening mammography 24 077264 Z12.31 Screening for osteoporosis 676781215 Z13.820 Gynecologi c examination 81217676 Z01.419 Serum betty min B12 below reference range 219363388 R79.89 On b12, get labs Abdominal pain 09783381 R10.[address] abd donePrior hx of surgery to the abdomen, she is not very sure why she had to have surgeryMay need to see GI [id number] Masoud holden MD [facility] Internal Med Y[place] sanchez [address] [facility] y , [place] [address] 12/13/2023 14:10:26 12/13/2023 15:22:58 Screening - NAD 001839211 Z13.9 C-scope: Get this if not done, [...] understand ing of the above Essential hypertension 79282334 I10 On amiodarone 200mg dailyOn coreg 12.5mg bidOn entresto 49-51mg bid, renewed 12/13/2023 On spironolac tone 25mg daily Hypothyroidism 61265712 E03.9 On levothyrox ine 150mcgs dailyGet labs Persistent insomnia 1919 91405 G47.09 On trazodoneG iven by Dr Jose Luis Bae r ecurrent major depression 43142182 F33.1 On clonazepam 0.5mg tidOn venlafaxin e ER 37.5mg dailyOn vralar 1.5m daily Nonischemi c congestive cardiomyopathy 2534335919 [address] Ceja cardiology [...] tone 25mg dailyOn coumadin Gynecologi c examination 07782179 Z01.419 Serum betty min B12 below reference range 206643525 R79.89 On b12, get labs Abdominal pain 29090651 R10.[address] abd donePrior hx of surgery to the abdomen, she is not very sure why she had to have surgeryMay need to see GI CT A/P: 12/13/2023 : Hiatal hernia, needs to see GI Hiatal hernia 08499253 K 44.9 CT A/P: 12/13/2023 : Hiatal hernia, needs to see GI Dizziness 879765515 R42 [facility]XR Chest 12/08/2023 S/p CTA 12/08/2023 Lung nodules noted Multiple n odules of lung 979292651 R91.8 CTA 12/08/[address] [facility] chest and see pulmonary Mass of neck 719019492 R 22.1 Fullness noted in the yordy supraclavi cular areaS/P CTA done 12/08/2023 Get US neck and she now will see Dr Gannon her cardiologi st [id number] Masoud holden MD [facility] Internal Med Yanni sanchez [address] [facility] [place] [address] 01/08/2024 11:22:08 01/08/2024 12:06:29 Screening - NAD 455198033 Z13.9 C-scope: Get this if not done, [...] understand ing of the above Essential hypertension 23821327 I10 On amiodarone 200mg dailyOn coreg 12.5mg bid, advised to not take the 25mg 1/2 tab bid dose 01/08/2024 On entresto 49-51mg bid, renewed 12/13/2023 On spironolac tone 25mg daily Hypothyroidism 97821154 E03.9 On levothyrox ine 150mcgs dailyGet labs Persistent insomnia 1919 98270 G47.09 On trazodoneG iven by Dr Amaya Moderate r ecurrent major depression 84617123 F33.1 On clonazepam 0.5mg tidOn venlafaxin e ER 37.5mg dailyOn vralar 1.5m dailySees Dr Amaya, not suicidal or homicidal Nonischemi c congestive cardiomyopathy 0031917513 [address] Ceja cardiology [...] spironolac tone 25mg dailyOn coumadin D/c from [facility] 01/03/2024 for SOB, acute respirator y [...] with her CG Claudette Gynecologi c examination 37039770 Z01.419 Serum betty min B12 below reference range 674560205 R79.89 On b12, get labs Abdominal pain 72100560 R10.[address] abd donePrior hx of surgery to the abdomen, she is not very sure why she had to have surgeryMay need to see GI CT A/P: 12/13/2023 : Hiatal hernia, needs to see Timothy [facility] GI: To get EGD, take PPI an dfamotidin e, take OTC [id number] mg PRN for bloating, may need a course of xifaxan Hiatal hernia 55106110 K 44.9 CT A/P: 12/13/2023 : Hiatal hernia, needs to see GIToday 01/08/2024 , states that she is to get the EGD this Monday Dizziness 785197091 R42 [facility] ERXR Chest 12/08/2023 S/p CTA 12/08/2023 Lung nodules noted Multiple n odules of lung 069140894 R91.8 CTA 12/08/[address] chest and see pulmonary Mass of neck 239178252 R 22.1 Fullness noted in the yordy supraclavi cular areaS/P CTA done 12/08/2023 Get US neck and she now will see Dr Gannon her cardiologi st [id number] Masoud holden MD [facility] Internal Med [place] [address] [place] [address] [place] [address] 01/16/2024 17:11:21 05/09/2024 11:39:35 Nonischemic congestive cardiomyopathy 0423122237 04 I42.0 Moderate r ecurrent major depression 62268485 F33.1 Osteoarthr itis of knee 193425388 M17.9 [id number] Masoud holden MD [facility] [address] [place] [address] [place] [address] 02/26/2024 13:42:40 05/22/2024 11:15:01 Nonischemic congestive cardiomyopathy 9865365481 04 I42.0 Essential hypertension 94244503 I10 [id number] Loreta Haque MD [facility] Pulmonolo gy [place] [address] [facility] [address] [place] [address] 03/20/2024 15:22:21 03/21/2024 08:27:20 Dyspnea on exertion 49116165 R06.09 R05.9 T78.40XA D89.9 Multiple n odules of lung 808143877 R91.8 [id number] Masoud holden MD [facility] Internal Med [facility] [address] [facility] [place] [address] 04/17/2024 18:28:30 06/03/2024 19:29:01 Dyspnea on exertion 42421482 R06.09 R05.9 T78.40XA D89.9 Moderate r ecurrent major depression 60020477 F33.1 Essential hypertension 23730396 I10 [id number] Masoud holden MD [facility] Internal Med [address] [place] [address] 06/12/2024 14:13:38 06/12/2024 15:19:26 Screening - NAD 151156916 Z13.9 C-scope: Get this if not done, [...] understand ing of the above Essential hypertension 38495476 I10 On amiodarone 200mg dailyOn coreg 25mg bid, advised to not take the 25mg 1/2 tab bid dose 01/08/2024 On entresto 49-51mg bid, now should be on / bid as per Dr Ceja 06/07/2024 On spironolac tone 25mg daily Hypothyroidism 52137732 E03.9 On levothyrox ine 150mcgs daily,misael wedGet labs Persistent insomnia 1919 26752 G47.09 On trazodoneG iven by Dr Amaya Moderate r ecurrent major depression 15883618 F33.1 On clonazepam 0.5mg tidOn venlafaxin e ER 37.5mg dailyOn vraylar 1.5m dailySees Dr Amaya, not suicidal or homicidal Nonischemi c congestive cardiomyopathy 2504520667 [address] Ceja cardiology [...] spironolac tone 25mg dailyOn coumadin D/c from [facility] 01/03/2024 for SOB, acute respirator y [...] f/u in 3 months Gynecologi c examination 11008080 Z01.419 Serum betty min B12 below reference range 854698044 R79.89 On b12, get labs Abdominal pain 79133397 R10.[address] abd donePrior hx of surgery to the abdomen, she is not very sure why she had to have surgeryMay need to see GI CT A/P: 12/13/2023 : Hiatal hernia, needs to see Timothy [facility]child GI: To get EGD, take PPI an dfamotidin e, take OTC [id number] mg PRN for bloating, may need a course of xifaxan EGD 01/10/2024 : Dr Fairchild Hiatal hernia 39677277 K 44.9 CT A/P: 12/13/2023 : Hiatal hernia, needs to see GI S/p EGD 01/10/2024 Dizziness 233548428 R42 [facility] ERXR Chest 12/08/2023 S/p CTA 12/08/2023 Lung nodules noted Multiple n odules of lung 579538518 R91.8 CTA 12[facility] : Law [facility]que 03/20/2024 Mass of neck 240928709 R 22.1 Fullness noted in the yordy supraclavi cular areaS/P CTA done 12/08/2023 Get US neck and she now will see Dr Gannon her cardiologi st US neck 04/22/2024 : Benign Dental caries 15350262 K 02.9 Dental caries noted on the upper teethDo not take the fosamax 2 weeks prior to dental procedures !Get on augmentin as per requestRef er to dental surgeon as per her requestWil l have to discuss with her cardiologi st regarding use of coumadin [id number] Masoud holden MD [facility] Primary Care [address] [place] [address] 09/16/2024 13:57:07 09/16/2024 14:42:29 Screening - NAD 915112356 Z13.9 C-scope: Get this if not done, [...] understand ing of the above Essential hypertension 04165664 I10 On amiodarone 200mg dailyOn coreg 25mg bid 1/[address] Huitron n entresto 49-51mg bid, now should be on [address] Ceja 06/07/2024 On spironolac tone 25mg dailyOn K Hypothyroidism 58436278 E03.9 On levothyrox ine 150mcgs daily,misael wedGet labs Persistent insomnia 1919 43355 G47.09 On trazodone 150mg 1.[address] Amaya Moderate r ecurrent major depression 63042680 F33.1 On clonazepam 0.5mg tidOn venlafaxin e ER 37.5mg dailyOn vraylar 1.5m dailySees Dr Amaya, not suicidal or homicidal Nonischemi c congestive cardiomyopathy 0211395315 [address] Ceja cardiology [...] spironolac tone 25mg dailyOn coumadin D/c from [facility] 01/03/2024 for SOB, acute respirator y [...] with her cardiologi st Gynecologi c examination 82553455 Z01.419 Serum betty min B12 below reference range 766579485 R79.89 On b12, get labs Abdominal pain 96179995 R10.[address] abd donePrior hx of [...] EGD 01/10/2024 : Dr Fairchild Hiatal hernia 65765460 K 44.9 CT A/P: 12/13/2023 : Hiatal hernia, needs to see GI S/p EGD 01/10/2024 Dizziness 090516448 R42 [facility] ERXR Chest 12/08/2023 S/p CTA 12/08/2023 Lung nodules noted Multiple n odules of lung 944248087 R91.8 CTA 12/08/2023 [facility] 04/22/[facility]24 : Law Haque 03/20/2024 Mass of neck 036101670 R 22.1 Fullness noted in the yordy supraclavi cular areaS/P CTA done 12/08/2023 Get US neck and she now will see Dr Gannon her cardiologi st US neck 04/22/2024 : Benign Dental caries 35861198 K 02.9 Dental caries noted on the [...] well Pain of ri ght hip joint 9189473590 16246 M25.551 S/p fallSeen in the UC, treated with gabapentin and flexerill, not taking at this timeGet on MDP, get Xrays and refer to Dr Prince as she does not want to be treated in [facility] Tear of skin 514709129 T 14.8XXA L forearmHea ling, no bleeding noted, no swelling or redness, advised to keep area clean and dry [id number] Masoud holden MD [facility] [address] [facility] [place] [address] 10/14/2024 14:46:11 10/14/2024 16:10:33 Screening - NAD 255711388 Z13.9 C-scope: Get this if not done, [...] understand ing of the above Essential hypertension 38958101 I10 On amiodarone 200mg dailyOn coreg 25mg daily Dr Huitron n entresto 49-51mg bid, now should be on 24/[address] Ceja 06/07/2024 On spironolac tone 25mg dailyOn KSees Dr Gannon Hypothyroidism 87560247 E03.9 On levothyrox ine 150mcgs daily,misael wedGet labs Persistent insomnia 1919 56797 G47.09 On trazodone 150mg 1.[address] Jose Luis Bae r ecurrent major depression 95590808 F33.1 On clonazepam 0.5mg tidOn venlafaxin e ER 37.5mg dailyOn vraylar 1.5m dailySees Dr Amaya, not suicidal or homicidal Nonischemi c congestive cardiomyopathy 2669168051 [address] Ceja cardiology [...] spironolac tone 25mg dailyOn coumadin D/c from [facility] 01/03/2024 for SOB, acute respirator y [...] f/u in 6 months Gynecologi c examination 69576581 Z01.419 Serum betty min B12 below reference range 304545711 R79.89 On b12, get labs Abdominal pain 93449058 R10.[address] abd donePrior hx of surgery to the abdomen, she is not very sure why she had to have surgeryMay need to see GI CT A/P: 12/13/2023 : Hiatal hernia, needs to see Timothy Fairchild GI: To get EGD, take PPI an dfamotidin e, take OTC [id number] mg PRN for bloating, may need a course of xifaxan EGD 01/10/2024 : Dr Fairchild Hiatal hernia 74469554 K 44.9 CT A/P: 12/13/2023 : Hiatal hernia, needs to see GI S/p EGD 01/10/2024 Dizziness 980597004 R42 [facility] ERXR Chest 12/08/2023 S/p CTA 12/08/2023 Lung nodules noted Multiple n odules of lung 776394865 R91.8 CTA 12/08/2023 [facility] 04/22/2024 : NegDr Haque 03/20/2024 Mass of neck 307756487 R 22.1 Fullness noted in the yordy supraclavi cular areaS/P CTA done 12/08/2023 Get US neck and she now will see Dr Gannon her cardiologi st US neck 04/22/2024 : Benign Dental caries 43959801 K 02.9 Dental caries noted on the [...] well Pain of ri ght hip joint 8223935402 97574 M25.551 S/p fallSeen in the UC, treated with gabapentin and flexerill, not taking at this timeGet on MDP, get Xrays and refer to Dr Prince as she does not want to be treated in [facility] OV 10/14/2024 :Xr hip: 09/16/2024 : Neg Tear of skin 108068853 T 14.8XXA L forearmHea ling, no bleeding noted, no swelling or redness, advised to keep area clean and dry Chronic ki dney disease 553965964 N18.9 Get a referral to nephrology Hyperkalemia 65737241 E8 7.5 Repeat the K [id number] Masoud holden MD [facility] [address] [place] [address] 11/18/2024 10:13:18 11/18/2024 12:24:26 Screening - NAD 053860089 Z13.9 C-scope: Get this if not done, [...] understand ing of the above Essential hypertension 27779135 I10 On amiodarone 200mg daily, understand s the side effects for this medication , including thyroid abnormalit iesOn coreg 25mg daily Dr Huitron n entresto 49-51mg bid, now should be on bid as per Dr Ceja 06/07/2024 On spironolac tone 25mg dailyOn KSees Dr Gannon Hypothyroidism 99033940 E03.9 On levothyrox ine 150mcgs daily,misael wedGet labs Persistent insomnia 1919 33631 G47.09 On trazodone 150mg 1.[address] Amaya Moderate r ecurrent major depression 10158488 F33.1 On clonazepam 0.5mg tidOn venlafaxin e ER 37.5mg dailyOn vraylar 1.5m dailySees Dr Amaya, not suicidal or homicidal Nonischemi c congestive cardiomyopathy 1868140514 [address] Ceja cardiology [...] spironolac tone 25mg dailyOn coumadin D/c from [facility] 01/03/2024 for SOB, acute respirator y [...] INR, since the INR machine not in [facility] office she will come in tomorrow to [facility] in [place] Gynecologi c examination 42243176 Z01.419 Serum betty min B12 below reference range 781235203 R79.89 On b12, get labs Abdominal pain 08195986 R10.[address] abd donePrior hx of surgery to the abdomen, she is not very sure why she had to have surgeryMay need to see GI CT A/P: 12/13/2023 : Hiatal hernia, needs to see Timothy Fairchild GI: To get EGD, take PPI an dfamotidin e, take OTC [id number] mg PRN for bloating, may need a course of xifaxan EGD 01/10/2024 : Dr Fairchild Hiatal hernia 56692227 K 44.9 CT A/P: 12/13/2023 : Hiatal hernia, needs to see GI S/p EGD 01/10/2024 Dizziness 533725146 R42 [facility] ERXR Chest 12/08/2023 S/p CTA 12/08/2023 Lung nodules noted Multiple n odules of lung 685024724 R91.8 CTA 12/08[facility] 04/22/2024 : Neg Haque 03/20/2024 Mass of neck 600323560 R 22.1 Fullness noted in the yordy supraclavi cular areaS/P CTA done 12/08/2023 Get US neck and she now will see Dr Gannon her cardiologi st US neck 04/22/2024 : Benign Dental caries 24240857 K 02.9 Dental caries noted on the [...] well Pain of ri ght hip joint 2288027666 15283 M25.551 S/p fallSeen in the UC, treated with gabapentin and flexerill, not taking at this timeGet on MDP, get Xrays and refer to Dr Prince as she does not want to be treated in [facility] OV 10/14/2024 :Xr hip: 09/16/2024 : Neg Tear of skin 479498439 T 14.8XXA L forearmHea ling, no bleeding noted, no swelling or redness, advised to keep area clean and dry Chronic ki dney disease 873219558 N18.9 Get a referral to nephrology Hyperkalemia 84116213 E8 7.5 Repeat the CMP Nausea 229363551 R11.0 Is on chronic use of zofran, [...] today 11/18/2024 Acute urin sherrill tract infection 086813694 N39.0 Unable to provide any urine for UAStart on amoxicilli n 500mg po tidNotify if not better Atrial fibrillation 4943 6004 I48.91 [id number] Loreta Haque MD [facility] Pulmonolo gy [place] [address] [facility] [address] [place] [address] 01/01/2025 14:42:18 01/03/2025 12:15:30 Dyspnea on exertion 07268483 R06.09 R05.9 T78.40XA D89.9 Mild chron ic obstructive pulmonary disease 722151277 J44.9 [id number] Masoud holden MD [facility] [address] [place] [address] 01/13/2025 14:26:53 01/13/2025 16:02:13 Screening - NAD 820365888 Z13.9 C-scope: Get this if not done, [...] her cardiology , told to come to [facility] for her INR Essential hypertension 25672547 I10 On amiodarone 200mg daily, understand s the side effects for this medication , including thyroid abnormalit iesOn coreg 25mg daily Dr Elana porras entresto bid as per Dr Ceja 06/07/2024 On lasixOn spironolac tone 25mg dailyOn KSees Dr Gannon as per her history 01/13/2025 , she does have an apt in 02/2025 Hypothyroidism 35141367 E03.9 On levothyrox ine 150mcgs daily,misael wedGet labs Persistent insomnia 1919 33757 G47.09 On trazodone 150mg 1.[address] Amaya Moderate r ecurrent major depression 11845839 F33.1 On clonazepam 0.5mg tidOn venlafaxin e ER 37.5mg dailyOn vraylar 1.5m dailySees Dr Amaya, not suicidal or homicidal Nonischemi c congestive cardiomyopathy 4149461496 [address] Ceja cardiology [...] spironolac tone 25mg dailyOn coumadin D/c from [facility] 01/03/2024 for SOB, acute respirator y [...] INR, since the INR machine not in [facility] office she will come in tomorrow to [facility] in [place] OV 01/13/2025 : Get INR as scheduled, will come to [facility] on 01/15/2025 Gynecologi c examination 85828001 Z01.419 Serum betty min B12 below reference range 445821147 R79.89 On b12, get labs Abdominal pain 95302818 R10.[address] abd donePrior hx of surgery to the abdomen, she is not very sure why she had to have surgeryMay need to see GI CT A/P: 12/13/2023 : Hiatal hernia, needs to see Timothy Fairchild GI: To get EGD, take PPI an dfamotidin e, take OTC [id number] mg PRN for bloating, may need a course of xifaxan EGD 01/10/2024 : Dr Fairchild Hiatal hernia 84352541 K 44.9 CT A/P: 12/13/2023 : Hiatal hernia, needs to see GI S/p EGD 01/10/2024 Dizziness 017798686 R42 [facility] ERXR Chest 12/08/2023 S/p CTA 12/08/2023 Lung nodules noted Multiple n odules of lung 493064922 R91.8 CTA 12/08/2023 [facility] 04/22/2024 : Law Haque 03/20/2024 Dr Haque 01/22/2025 next apt On albuterolS ee Dr Haque Mass of neck 849655700 R 22.1 Fullness noted in the yordy supraclavi cular areaS/P CTA done 12/08/2023 Get US neck and she now will see Dr Gannon her cardiologi st US neck 04/22/2024 : Benign Dental caries 00967654 K 02.9 Dental caries noted on the upper teethDo not take the fosamax 2 weeks prior to dental procedures !Get on augmentin as per requestRef er to dental surgeon as per her requestLuizal l have to discuss with her cardiologi st regarding use of coumadin OV 09/16/2024 : Now states that she has 'pulled out all' the teeth, does well Pain of ri ght hip joint 2365633846 04693 M25.551 S/p fallSeen in the UC, treated with gabapentin and flexerill, not taking at this timeGet on MDP, get Xrays and refer to Dr Prince as she does not want to be treated in [facility] OV 10/14/2024 :Xr hip: 09/16/2024 : Neg Tear of skin 187094362 T 14.8XXA L forearmHea ling, no bleeding noted, no swelling or redness, advised to keep area clean and dry Chronic ki dney disease 889422369 N18.[address] Dela Cruz has given her the zofran Hyperkalemia 21328960 E8 7.5 Repeat the CMP Nausea 144367269 R11.0 Is on chronic use of zofran, [...] she discusses this with her psychiatri Jorge Afer states that her mother 'likes to doctor herself'Sh e should see her GI, s/p EGD done already, GI referral provided to her today 11/18/2024 OV 01/13/2025 : Is NOT wanting to see GI Screening mammography 24 235168 Z12.31 Eruption 516025109 R21 Red itchy rash in the groinNot examined, will start on trim-nysta tin crean [id number] Loreta Haque MD [facility] Pulmonolo gy [address] [address] 03/13/2025 14:23:19 03/13/2025 16:02:09 Mild chronic obstructive pulmonary disease 082988655 J44.9 Goals Section Goal Description Progress Status Start [...] Member ID [id number] Member ID Guarantor Name 03/13/2025 [address] [facility] - MEDICARE COMPLETE - CHOICE PLAN 2 (MEDICARE REPLACEMENT REGIONAL PPO) [id number] Yi Martino [id number] Yi Martino Notes Date Note Type Note Provider Name and Address Organization Details Recorded Time 10/14/2024 text/html OV 11/06/2023: H ere to [...] resolved now, she did do the labs Masoud Reddy MD [address], [place], [address], [employer] 10/14/2024 16:12:07 11/18/2024 text/html OV 11/06/2023: H [...] needs to take '30 tablets' a month Masoud Reddy MD [address], [place], [address], [email or web address] 11/20/2024 17:02:33 01/01/2025 text/html Primary care/Ref erring provider: Masoud Reddy MD; Evon Ceja MD Patient is here to go over her COPD management. Initial development of shortness of breath: uration of shortness of breath: 4 yearsCondition of shortness of breath: stableTiming of shortness of breath: noneFrequency: up to 2 times a dayLimits activities: yesAggravating factors: walking from bathroom to bedroom, changing clothesAlleviating factors: rest Modified [employer] [place] (mMRC) Dyspnea Scale - Grade 2Grade 0 [...] chance of dozing. Loreta Haque MD [address], [place], [address], [place] [facility] 01/01/2025 15:24:31 01/13/2025 text/html OV 11/06/2023: H [...] seen Dr Haque and is on albuterol Masoud Reddy MD [address] [facility] [facility] [address], [place], [address], [place] [facility] 01/14/2025 19:24:11 03/13/2025 text/html Primary care/Ref erring provider: Masoud Reddy MD; Evon Ceja MD Patient is here to go over her COPD management. Initial development of shortness of breath: uration of shortness of breath: 4 yearsCondition of shortness of breath: stableTiming of shortness of breath: noneFrequency: up to 2 times a dayLimits activities: yesAggravating factors: walking from bathroom to bedroom, changing clothesAlleviating factors: rest Modified [employer] [place] (mMRC) Dyspnea Scale - Grade 2Grade 0 [...] am breathless when dressing . Treatment history: Albuterol HFA as needed since 2013, once a week Other symptoms:Drooling: noDysarthria: noNeck pain: noOdynophagia: noDysphagia: [...] AND CHANCE OF DOZINGSitting and reading - 1Watching television - 1Sitting inactive in a public place (e.g. a theater or meeting) - 1As a passenger in a car for an hour without a break - 1Lying down to rest in the afternoon when circumstances permit - 1Sitting and talking to someone - 1Sitting quietly after lunch without alcohol - 1In a car, while stopped for a few minutes in the traffic - 1TOTAL SCORE 8Subjectively, patient has a slight chance of dozing. Loreta Haque MD [address] [place] [address], [place] [address], [place], [address], [place] [facility] 03/13/2025 15:21:35 OBGyn Episode No OBEpisode recorded.
--- OUTSIDE RECORDS SUMMARY | 2025-03-24 22:06 | XMS_ITS | Encounter Summary ---
Author Organization [facility] Healthcare Address [address] [place] [address] Care Team Providers Care Tnt Line Supervisor Name Role Phone Lana Tovar MD Primary Care Provider + Bandar Gaffney MD Unavailable [phone] Dillan Reddy MD Primary Care Provide r Encounter Details Date Type Department Care Team (Late st Contact Info) Description 01/17/2018 Orders Only [facility] Health Information Management [address] [place] [address] Scanning, Provider Social History Tobacco Use Types Packs/Day Years Used Date Smoking Tobacco: Never Alcohol Use Standard Drinks/Week Comments No 0 (1 standard drink = 0.6 oz pur e alcohol) Comments Unknown Sex and Gender Information Value Date Recorded Sex Assigned at Not on file Legal Sex 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 Gender Identity Not on file Sexual Orientation Not on file documented as of this encounter Plan of Treatment Not on file documented as of this encounter Procedures Procedure Name Priority Date/Time Associated Diagnosis Comments CARDIOLOGY DOCUMENT SCAN 01/17/2018 documented in this encounter Results * Cardiology Document Scan (01/17/2018) Anatomical Region Laterality Modality Other us Provider Scanning CV CARDIAC SERVICES PROCEDURES Final Result documented in this encounter Visit Diagnoses Not on filedocumented in this encounter Care Teams Tnt Line Supervisor Relationship Specialty Start Date End Date Lana Tovar MD PCP - General 12/02/16 11/08/23 Dillan Reddy MD [facility] [address] [address] PCP - General Internal Medicine 11/09/23 Bandar Gaffney MD Consulting Physician Cardiology 04/13/21 documented as of this encounter
[2025-03-24] MEDS: FUROSEMIDE INJ 40 MG/4 ML VIAL IV PUSH (22:10)
--- NOTE | 2025-03-24 22:14 | ED_ITS ---
HPI - SOB/Dyspnea General Chief Complaint: Shortness of Breath/Dyspnea <Rocio Saurez PA-C - Last Filed: 03/25/25 02:30> Stated Complaint: DIFFICULTY IN SWALLOWING SINCE <Rocio Suarez PA-C - Last Filed: 03/25/25 02:30> Time Seen by Provider: 03/24/25 21:57 <Rocio Suarez PA-C - Last Filed: 03/25/25 02:30> Source: patient <HILARY Kirby Last Filed: 03/25/25 02:30> Mode of arrival: EMS <HILARY Kirby Last Filed: 03/25/25 02:30> Limitations: dementia <HILARY Kirby Last Filed: 03/25/25 02:30> History of Present Illness HPI Narrative: This is a 79 year old female that presents to the ER for shortness of breath. Acutely worsening tonight. Reports history of CHF. She has not been taking her Lasix. Reports she feels like she is having difficulty swallowing. < Rocio Suarez PA-C - Last Filed: 03/25/25 02:30> Related Data Home Medications: Home Medications ?Medication ?Instructions ?Recorded ?Confirmed ?Last Taken ?Type trazodone 150 mg tablet 150 mg PO HS 03/22/21 03/25/25 01/01/24 History venlafaxine 37.5 mg 37.5 mg PO DAILY 08/22/22 03/25/25 01/01/24 History capsule,extended release 24 hr (Effexor XR) rosuvastatin 40 mg tablet 40 mg PO DAILY 12/27/23 03/25/25 01/01/24 History amiodarone 200 mg tablet 400 mg PO DAILY 01/02/24 03/25/25 01/01/24 History clonazepam 0.5 mg tablet 0.5 mg PO TID 01/02/24 03/25/25 Unknown History levothyroxine 150 mcg tablet 150 mcg PO DAILY 01/02/24 03/25/25 01/01/24 History warfarin 3 mg tablet 3 mg PO DAILY 01/02/24 03/25/25 01/01/24 History carvedilol 12.5 mg tablet 25 mg PO DAILY 12/24/24 03/25/25 Unknown History albuterol sulfate 90 mcg/actuation 1 puff inhalation Q4H PRN 03/25/25 03/25/25 Unknown History aerosol inhaler shortness of breath or wheezing cyanocobalamin (vitamin B-12) 1,000 mcg subcut MONTHLY 03/25/25 03/25/25 Unknown History 1,000 mcg/mL injection solution donepezil 10 mg tablet 10 mg PO HS 03/25/25 03/25/25 Unknown History famotidine 20 mg tablet 20 mg PO Q12H PRN reflux 03/25/25 03/25/25 Unknown History furosemide 40 mg tablet 40 mg PO 3XW 03/25/25 03/25/25 Unknown History losartan 50 mg tablet 50 mg PO DAILY 03/25/25 03/25/25 Unknown History ondansetron 4 mg disintegrating 8 mg PO Q12H PRN nausea and 03/25/25 03/25/25 Unknown History tablet vomiting ondansetron 4 mg disintegrating 8 mg PO Q12H PRN nausea and 03/25/25 03/25/25 Unknown History tablet vomiting spironolactone 25 mg tablet 25 mg PO DAILY 03/25/25 03/25/25 Unknown History <Rocio Suarez PA-C - Last Filed: 03/25/25 02:30> Allergies/Adverse Reactions: Allergies Allergy/AdvReac Type Severity Reaction Status Date / Time codeine Allergy Unknown Unknown Verified 03/20/25 07:54 lorazepam Allergy Unknown Unknown Verified 03/20/25 07:54 tramadol Allergy Unknown Unknown Verified 03/20/25 07:54 NSAIDS (Non-Steroidal AdvReac Unknown Nausea Verified 03/20/25 07:54 Anti-Inflamma sumatriptan AdvReac Unknown FELT Verified 03/20/25 07:54 HORRIBLE <Rocio Suarez PA-C - Last Filed: 03/25/25 02:30> Review of Systems 2 Review of Systems: All systems reviewed & are unremarkable except as noted in HPI and below <Rocio Suarez PA-C - Last Filed: 03/25/25 02:30> PMFSH Past Medical History Medical History: Medical History Chronic anticoagulation Transient ischemic attack Gastroesophageal reflux disease Chronic kidney disease Depression with anxiety Deep venous thrombosis Heart failure with reduced ejection fraction EF was 20 to 25% in March 2021. Left bundle branch block Hyperlipidemia Hypertension Hypothyroidism Cardiomyopathy Bipolar disorder <Rocio Suarez PA-C - Last Filed: 03/25/25 02:30> Surgical History Surgical History: Surgical History History of colon resection History of bilateral knee arthroplasty History of repair of left rotator cuff History of bladder suspension procedure History of tonsillectomy History of cardiac catheterization History of partial hysterectomy History of orthopedic surgery <Rocio Suarez PA-C - Last Filed: 03/25/25 02:30> Family History Family History: Family History Father Hypertension Cerebrovascular accident Mother Family history of diabetes mellitus in first degree relative Family history of lung disease Family history of coronary artery disease Sibling Family history of diabetes mellitus in first degree relative Cardiomyopathy Son Family history of mental disorder Other Family history of alcoholism Family history of arthritis Family history of gout <Rocio Suarez PA-C - Last Filed: 03/25/25 02:30> Social History Social History: Social History Social History: Surrogate medical decision maker: Man Linton, sibling. Code status: Full code. Smoking status: Never smoker Alcohol intake: never Substance use: never Substance use type: does not use Do You Feel Safe in your Home?: Yes Lack of Transportation: No Lack of Food: Never True Current Housing: I Have Housing Concerned About Future Housing: No Difficulty Paying Gas/Electric Bills: No Difficulty Paying for Meds: No Currently Unemployed: No Education: High School Diploma/GED Difficulty w/ Childcare or Family Care: No Living arrangements: with roommate(s) Additional living arrangements comments: . Has 1 child. Additional occupation/education comments: Retired from the [employer]. Spiritual care concerns: No <Rocio Suarez PA-C - Last Filed: 03/25/25 02:30> Exam 2 Narrative: GENERAL: Elderly, well-nourished HEAD: Normocephalic, atraumatic. EYES: EOMI. ENT: Nares clear, no rhinorrhea or epistaxis. Mucous membranes moist. Oropharynx without tonsillar hypertrophy exudate or other lesions. NECK: Supple. No adenopathy or masses. CHEST: Tachypneic with rales present bilaterally in the lower lobes. No wheezes or rhonchi HEART: Regular rate and rhythm. No murmur heard. Normal peripheral pulses. EXTREMITIES: Normal range of motion. No edema. SKIN: Warm, dry, no rash. NEURO: No focal deficits. Alert and oriented x3. PSYCH: Normal mood and affect <Rocio Suarez PA-C - Last Filed: 03/25/25 02:30> Course [employer]FILL GRADER/PA Physician Supervision This visit was performed by both a physician and an APC. I performed all aspects of the MDM as documented. <Yusuf Alba MD - Last Filed: 03/25/25 05:13> Consultations Consultation #1: spoke with hospitalist about patient and workup who accepts admission < Rocio Suarez PA-C - Last Filed: 03/25/25 02:30> Date: 03/25/25 <Rocio Suarez PA-C - Last Filed: 03/25/25 02:30> Vital Signs Vital signs: Vital Signs Pulse Rate 113 H 03/24/25 21:45 Respiratory Rate 24 H 03/24/25 21:45 Blood Pressure 184/102 H 03/24/25 21:45 Pulse Oximetry 94 03/24/25 21:45 Temperature 37.0 C 03/25/25 02:49 Pulse Rate 72 03/25/25 02:49 Respiratory Rate 16 03/25/25 02:49 Blood Pressure 109/59 L 03/25/25 02:49 Pulse Oximetry 98 03/25/25 02:49 Oxygen Delivery Room Air 03/24/25 21:48 <Rocio Suarez PA-C - Last Filed: 03/25/25 02:30> Vital Signs Pulse Rate 113 H 03/24/25 21:45 Respiratory Rate 24 H 03/24/25 21:45 Blood Pressure 184/102 H 03/24/25 21:45 Pulse Oximetry 94 03/24/25 21:45 Temperature 37.0 C 03/25/25 02:49 Pulse Rate 72 03/25/25 02:49 Respiratory Rate 16 03/25/25 02:49 Blood Pressure 109/59 L 03/25/25 02:49 Pulse Oximetry 98 03/25/25 02:49 Oxygen Delivery Room Air 03/24/25 21:48 <Yusuf Alba MD - Last Filed: 03/25/25 05:13> MDM - SOB/Dyspnea MDM Narrative Medical decision making narrative: This is a 79 year old female that presents to the ER for dyspnea. Tachycardic, tachypneic upon arrival. Fluid overloaded. Given a dose of Lasix with much improvement. Oxygen saturation 90% on room air, placed on 2L NC. CBC with leukocytosis to 12.3. Metabolic panel with kidney function appears to be around her baseline. BNP is 5070. Baseline troponin is not elevated. Chest x- ray shows patchy opacities in the right upper lobe and mild diffuse reticulonodular opacities, may represent infection overlying chronic respiratory bronchiolitis or senescent/interstitial change. Blood cultures drawn, patient started on IV antibiotics. Will be admitted for further management <Rocio Suarez PA-C - Last Filed: 03/25/25 02:30> Differential Diagnosis Differential diagnosis: Likely acute exacerbation of chronic obstructive airways disease, congestive heart failure, community acquired pneumonia and asthma with exacerbation <Rocio Suarez PA-C - Last Filed: 03/25/25 02:30> Lab Data Attestation: I reviewed the patient's lab results. <Rocio Suarez PA-C - Last Filed: 03/25/25 02:30> Result diagrams: 03/24/25 21:42 03/24/25 21:42 <Rocio Suarez PA-C - Last Filed: 03/25/25 02:30> Labs: Lab Results 03/24/25 03/24/25 Range/Units 21:42 22:09 WBC 12.3 H (4.5-10.0) K/mm3 RBC 3.97 L (4.2-5.4) M/mm3 Hgb 12.7 (12.0-15.0) g/dL Hct 41.1 (37.0-47.0) % MCV 103.5 H (80-100) fl MCH 32.0 (26-34) pg MCHC 30.9 L (32-36) g/dl RDW 14.0 (11.5-14.5) % Plt Count 249 (150-375) k/mm3 MPV 9.9 (7.4-10.4) fl Immature Gran % (Auto) 0.4 (0-0.5) % Neut % (Auto) 61.6 (45.5-73.1) % Lymph % (Auto) 24.1 (18.3-44.2) % Collier % (Auto) 10.9 H (2.6-8.5) % Eos % (Auto) 2.5 (0-4.4) % Baso % (Auto) 0.5 (0.2-1.2) % Lymph # (Auto) 2.97 (0.9-3.2) K/mm3 Collier # (Auto) 1.3 H (0.1-0.6) K/mm3 Eos # (Auto) 0.3 (0-0.3) K/mm3 Baso # (Auto) 0.1 (0.0-0.1) K/mm3 Abs Immat Gran (auto) 0.05 H (0.00-0.031) K/mm3 Absolute Neuts (auto) 7.6 H (1.3-6.7) K/mm3 Absolute Nucleated RBC 0.000 (0.0-0.012) K/mm3 Nucleated RBC % 0.0 (0.0-0.2) % PT 36.9 H (11.1-14.7) Seconds INR 4.0 APTT 22.2 L (22.3-36.8) Seconds Methemoglobin 0.2 (0-1.5) %THb Sodium 134 L (137-145) mmol/L Potassium 4.3 (3.4-5.0) mmol/L Chloride 103 (98-107) mmol/L Carbon Dioxide 22 (22-30) mmol/L Anion Gap 9 (4-12) mmol/L BUN 11 (7-17) mg/dL Creatinine 1.25 H (0.7-1.0) mg/dL Estim Creat Clear Calc 34 ml/min Estimated GFR 41 L (59 - ) Glucose 141 H (65-110) mg/dL Calcium 9.0 (8.4-10.2) mg/dL Total Bilirubin 0.7 (0.2-1.3) mg/dL AST 42 H (14-36) U/L ALT 16 (6-35) U/L Alkaline Phosphatase 55 (38-126) U/L Troponin I 0.022 (0.000-0.034) ng/mL NT-Pro-B Natriuret Pep 5070 H (19.9-100) pg/mL Total Protein 8.4 H (6.3-8.2) g/dL Albumin 4.4 (3.5-5.1) g/dL <Rocio Suarez PA-C - Last Filed: 03/25/25 02:30> Lab Results 03/24/25 03/24/25 Range/Units 21:42 22:09 WBC 12.3 H (4.5-10.0) K/mm3 RBC 3.97 L (4.2-5.4) M/mm3 Hgb 12.7 (12.0-15.0) g/dL Hct 41.1 (37.0-47.0) % MCV 103.5 H (80-100) fl MCH 32.0 (26-34) pg MCHC 30.9 L (32-36) g/dl RDW 14.0 (11.5-14.5) % Plt Count 249 (150-375) k/mm3 MPV 9.9 (7.4-10.4) fl Immature Gran % (Auto) 0.4 (0-0.5) % Neut % (Auto) 61.6 (45.5-73.1) % Lymph % (Auto) 24.1 (18.3-44.2) % Collier % (Auto) 10.9 H (2.6-8.5) % Eos % (Auto) 2.5 (0-4.4) % Baso % (Auto) 0.5 (0.2-1.2) % Lymph # (Auto) 2.97 (0.9-3.2) K/mm3 Collier # (Auto) 1.3 H (0.1-0.6) K/mm3 Eos # (Auto) 0.3 (0-0.3) K/mm3 Baso # (Auto) 0.1 (0.0-0.1) K/mm3 Abs Immat Gran (auto) 0.05 H (0.00-0.031) K/mm3 Absolute Neuts (auto) 7.6 H (1.3-6.7) K/mm3 Absolute Nucleated RBC 0.000 (0.0-0.012) K/mm3 Nucleated RBC % 0.0 (0.0-0.2) % PT 36.9 H (11.1-14.7) Seconds INR 4.0 APTT 22.2 L (22.3-36.8) Seconds Methemoglobin 0.2 (0-1.5) %THb Sodium 134 L (137-145) mmol/L Potassium 4.3 (3.4-5.0) mmol/L Chloride 103 (98-107) mmol/L Carbon Dioxide 22 (22-30) mmol/L Anion Gap 9 (4-12) mmol/L BUN 11 (7-17) mg/dL Creatinine 1.25 H (0.7-1.0) mg/dL Estim Creat Clear Calc 34 ml/min Estimated GFR 41 L (59 - ) Glucose 141 H (65-110) mg/dL Calcium 9.0 (8.4-10.2) mg/dL Total Bilirubin 0.7 (0.2-1.3) mg/dL AST 42 H (14-36) U/L ALT 16 (6-35) U/L Alkaline Phosphatase 55 (38-126) U/L Troponin I 0.022 (0.000-0.034) ng/mL NT-Pro-B Natriuret Pep 5070 H (19.9-100) pg/mL Total Protein 8.4 H (6.3-8.2) g/dL Albumin 4.4 (3.5-5.1) g/dL <Yusuf Alba MD - Last Filed: 03/25/25 05:13> ABG Data ABG results: 03/24/25 22:09 Puncture Site Left brachial ABG pH 7.409 ABG pCO2 40.8 ABG pO2 55.7 L ABG PO2/FiO2 Ratio 2.65 ABG HCO3 25.2 ABG O2 Saturation 89.3 L ABG O2 Content 16.7 ABG Base Excess 0.5 A-a Gradient 45.2 Oxyhemoglobin 87.9 L Carboxyhemoglobin 1.0 Reduced Hemoglobin 10.9 H Total Hemoglobin 13.5 O2 Delivery Device Room air O2 Liters/Min Not Reportable FiO2 21 <Rocio Suarez PA-C - Last Filed: 03/25/25 02:30> 03/24/25 22:09 Puncture Site Left brachial ABG pH 7.409 ABG pCO2 40.8 ABG pO2 55.7 L ABG PO2/FiO2 Ratio 2.65 ABG HCO3 25.2 ABG O2 Saturation 89.3 L ABG O2 Content 16.7 ABG Base Excess 0.5 A-a Gradient 45.2 Oxyhemoglobin 87.9 L Carboxyhemoglobin 1.0 Reduced Hemoglobin 10.9 H Total Hemoglobin 13.5 O2 Delivery Device Room air O2 Liters/Min Not Reportable FiO2 21 <Yusuf Alba MD - Last Filed: 03/25/25 05:13> Imaging Data Radiologist's impression: ITS Impressions Chest X-Ray 03/24/25 22:35 IMPRESSION: Patchy right upper lung groundglass opacities and mild diffuse reticulonodular opacities, may represent infection overlying chronic respiratory bronchiolitis or senescent/interstitial change. <Rocio Suarez PA-C - Last Filed: 03/25/25 02:30> Critical Care Time Critical Care Time Critical Care Time: Yes <Rocio Suarez PA-C - Last Filed: 03/25/25 02:30> Total Critical Care Time: 35 <Rocio Suarez PA-C - Last Filed: 03/25/25 02:30> Discharge Plan Discharge Clinical Impression: Acute hypoxemic respiratory failure CHF exacerbation Qualifiers: Heart failure type: unspecified Qualified Code(s): I50.9 - Heart failure, unspecified Community acquired pneumonia Qualifiers: Laterality: right Lung location: upper lobe of lung Qualified Code(s): J18.9 - Pneumonia, unspecified organism <Rocio Suarez PA-C - Last Filed: 03/25/25 02:30> Patient Disposition: Still a Patient <Rocio Suarez PA-C - Last Filed: 03/25/25 02:30> Condition: Improved <Rocio Suarez PA-C - Last Filed: 03/25/25 02:30>
[2025-03-24 22:16] LABS: Alanine Aminotransferase 16 U/L (6-35); Albumin Level 4.4 g/dL (3.5-5.1); Alkaline Phosphatase 55 U/L (38-126); Anion Gap 9 mmol/L (4-12); Aspartate Amino Transferase 42 U/L (14-36); Bilirubin,Total 0.7 mg/dL (0.2-1.3); Blood Urea Nitrogen 11 mg/dL (7-17); Calcium 9.0 mg/dL (8.4-10.2); Carbon Dioxide 22 mmol/L (22-30); Chloride 103 mmol/L (98-107); Estimated CRCL calculation 34 ml/min; Estimated Glomerular Filt Rate 41; Glucose 141 mg/dL (65-110); Potassium 4.3 mmol/L (3.4-5.0); Sodium 134 mmol/L (137-145); Total Protein 8.4 g/dL (6.3-8.2)
[2025-03-24 22:22] LABS: Alveolar/Arterial O2 Gradient 45.2 mmHg; Carboxyhemoglobin 1.0 % THb (0-2.0); Fractional Inspired Oxygen 21 %; HCO3 ABG 25.2 mEq/l (22.0-26.0); Methemoglobin ABG 0.2 %THb (0-1.5); Oxygen Content ABG 16.7 %vol (16.0-22.0); Oxygen Saturation ABG 89.3 % (95.0-100.0); PCO2 ABG 40.8 mmHg (35.0-45.0); PO2 ABG 55.7 mmHg (80.0-100.0); PO2 FiO2 Ratio Arterial Blood 2.65 %; Reduced Hemoglobin 10.9 %THb (0-5.0)
[2025-03-24 22:23] LABS: Modified Allen's Test Pass; Site Drawn LEFT BRACHIAL
[2025-03-24 22:26] LABS: NT Pro B Type Natriuretic Pept 5070 pg/mL (19.9-100); Troponin I 0.022 ng/mL (0.000-0.034)
[2025-03-24] MEDS: FAMOTIDINE 20 MG/2 ML VIAL IV PUSH (22:47)
[2025-03-24] MEDS: ONDANSETRON INJ 4 MG/2 ML VIAL IV PUSH (22:47)
[2025-03-25] VITALS (15 sets, daily range): BP systolic 103–166; BP diastolic 43–98; PULSE 60–92; RESP 14–23; TEMP 36.2–37.1; O2SAT 94–100; BMI 28.7
--- NOTE | 2025-03-25 | ECHO_ITS ---
Patient Info Name: Yi Martino Age: 79 years : 1945 Gender: Female Ht: 65 in Wt: 172 lbs BSA: 1.91 m2 HR: 64 bpm BP: 150 / 70 mmHg Technical Quality: Good Exam Date: 03/25/2025 8:24 AM Patient Status: I Admit Date: 03/25/2025 Exam Type: CA echo doppler color flow Complete two-dimensional, color flow and Doppler transthoracic echocardiogram is performed. Staff Referring Physician: [facility] Physician: Lorena Bermudez Attending Provider: Henny Fox DO Summary 1. Left ventricular chamber dimension is mildly enlarged. 2. There is mildly increased left ventricular wall thickness. 3. Left ventricular systolic function is mildly reduced, estimated at 45-50. Mild global hypokinesis with more pronounced hypokinesis of the basal villa. 4. The left ventricular diastolic function is grade I diastolic dysfunction. 5. Right ventricular chamber dimension is normal. 6. Right ventricular systolic function is normal. 7. Left atrial chamber dimension is mildly enlarged. 8. There is mild aortic valve regurgitation. 9. There is at least moderate mitral valve regurgitation, which may be underestimated due to eccentricity of the jet. 10. There is mild tricuspid valve regurgitation. Left Ventricle Left ventricular chamber dimension is mildly enlarged. There is mildly increased left ventricular wall thickness. Left ventricular systolic function is mildly reduced, estimated at 45-50. Mild global hypokinesis with more pronounced hypokinesis of the basal villa. The left ventricular diastolic function is grade I diastolic dysfunction. Right Ventricle Linear artifact in right ventricle suggestive of catheter(s), pacemaker lead(s), or ICD lead(s). Right ventricular chamber dimension is normal. Right ventricular systolic function is normal. Left Atria Left atrial chamber dimension is mildly enlarged. Right Atria Linear artifact in the right atrium suggestive of catheter(s), pacemaker lead(s), or ICD lead(s). Right atrial chamber dimension is normal. Atrial Septum Intact interatrial septum visualized by color flow imaging. Aortic Valve The aortic valve is probable trileaflet. There is no aortic valve stenosis. There is mild aortic valve regurgitation. Pulmonic Valve The pulmonic valve is not well visualized. There is no pulmonic regurgitation. Mitral Valve There is at least moderate mitral valve regurgitation, which may be underestimated due to eccentricity of the jet. Tricuspid Valve There is mild tricuspid valve regurgitation. Pericardium/Pleural There is no pericardial effusion. Inferior Vena Cava Normal inferior vena cava with >50% collapse upon inspiration consistent with normal right atrial pressure, 3 mmHg. Aorta The aortic root size at the sinus of Valsalva is normal. Left Ventricular Outflow Tract Name Value Normal LVOT 2D LVOT Diameter 2.0 cm LVOT Doppler LVOT Peak Velocity 146 cm/s LVOT Peak Gradient 9 mmHg LVOT Mean Gradient 4 mmHg LVOT VTI 24 cm LVOT VTI/AV VTI Ratio 0.8 LVOT Stroke Volume 76 ml LVOT CO 4.8 l/min LVOT CI 2.5 l/min/m2 Pulmonic Valve Name Value Normal PV Doppler PV Peak Velocity 120 cm/s PV Peak Gradient 6 mmHg Mitral Valve Name Value Normal MV Doppler MV Peak Gradient 5 mmHg MV Mean Gradient 1 mmHg MV Area (Cont Eq VTI) 2.2 cm2 MV Regurgitation Doppler MR Peak Gradient 106 mmHg MV Diastolic Function MV E Peak Velocity 90 cm/s MV A Peak Velocity 86 cm/s MV E/A 1.1 MV Decel Time (PW) 297 ms MV Annular TDI MV E/e' (Septal) 16.0 MV E/e' (Lateral) 15.7 MV E/e' (Average) 15.9 Tricuspid Valve Name Value Normal TV Regurgitation Doppler TR Peak Velocity 283 cm/s TR Peak Gradient 29 mmHg Estimated PAP/RSVP RA Pressure 3 mmHg <=5 PA Systolic Pressure 35 mmHg <36 RV Systolic Pressure 35 mmHg <36 TV Annular TDI TV Lateral [place]' Velocity 11.2 cm/s >=9.5 Aortic Valve Name Value Normal AV Doppler AV Peak Velocity 163 cm/s AV Peak Gradient 11 mmHg AV Mean Gradient 5 mmHg AV VTI 31 cm AV Area (Cont Eq VTI) 2.5 cm2 >=3.0 AV Area (Cont Eq Joshua) 2.9 cm2 AV DI (Joshua) 0.89 AV Regurgitation 2D LVOT Area 3.2 cm2 Ventricles Name Value Normal LV Dimensions 2D/MM IVS Diastolic Thickness (2D) 1.1 cm 0.6-1.0 LVID Diastole (2D) 5.5 cm 3.8-5.2 LVIW Diastolic Thickness (2D) 1.1 cm 0.6-0.9 LVID Systole (2D) 5.0 cm 2.2-3.5 LVOT Diameter 2.0 cm LV Mass (2D Cubed) 239.78 g 67.00-162.00 LV Mass Index (2D Cubed) 125 g/m2 43-95 Relative Wall Thickness (2D) 0.40 <=0.42 LV Fractional Shortening/Ejection Fraction 2D/MM LV Fractional Shortening (2D) 10 % 27-45 LV EF (2D Teichholz) 21 % LV Diastolic Volume (4C MOD) 94 ml LV EF (4C MOD) 48 % LV Diastolic Volume (2C MOD) 102 ml LV EF (2C MOD) 52 % LV Diastolic Volume (BP MOD) 98 ml 46-106 LV Diastolic Volume Index (BP MOD) 51 ml/m2 29-61 LV Systolic Volume (BP MOD) 50 ml 14-42 LV Systolic Volume Index (BP MOD) 26 ml/m2 8-24 LV EF (BP MOD) 50 % 54-74 LV Diastolic Length (4C) 8.9 cm LV Systolic Length (4C) 7.1 cm LV Stroke Volume (4C MOD) 45 ml Atria Name Value Normal LA Dimensions LA Volume (4C A-L) 47 ml LA Volume (BP A-L) 54 ml RA Dimensions RA Systolic Major [place] Length (4C) 3.9 cm 2.2-2.8 RA Area (4C) 11.3 cm2 <=18.0 Report Signatures
[2025-03-25] MEDS: cefTRIAXone 1 GM in SODIUM CHLORIDE 0.9% IV 50 ML 100 ML IVPB (01:31)
[2025-03-25] MEDS: DOXYCYCLINE IV 100 MG in SODIUM CHLORIDE 0.9% IV 100 ML IVPB ×2 (01:50→13:41)
[2025-03-25 02:34] LABS: Influenza A QL RT-PCR Negative (Negative); Influenza B QL RT-PCR Negative (Negative); RSV RNA, RT-PCR Negative (Negative); SARS-CoV-2 RNA PCR Negative (Negative)
[2025-03-25] MEDS: ACETAMINOPHEN 325 MG TABLET 650 MG PO (06:01)
[2025-03-25] MEDS: LEVOTHYROXINE SODIUM 150 MCG TABLET PO (06:02)
[2025-03-25 06:14] LABS: INR 4.8; Prothrombin Time 42.6 Seconds (11.1-14.7)
--- NOTE | 2025-03-25 06:53 | P.HP_ITS ---
H&P: HPI History of Present Illness Date/Time: 03/25/25 06:53 Chief Complaint: Shortness of breath Narrative: Yi Martino is a 79-year-old female with a past medical history of HFrEF, HTN, hyperlipidemia, hypothyroidism, CKD, GERD who presented to the hospital with shortness of breath for the past week. Patient has not been taking her furosemide because she's lazy.She is presenting from home in which she lives with her friend. She states that she has been having difficulties ambulating on her own given the worsening shortness of breath. He denies any chest pain, nausea/vomiting, abdominal pain, urinary/bowel changes, or extremity swelling. Does not know when her last echocardiogram was obtained. The denies any recent travel, palpitations, pleuritic pain, paroxysmal nocturnal dyspnea, orthopnea, fevers, chills, or known sick contacts. In ED: 184/102, 24 RR, 94% on room air, 113 HR WBC 12.3, H&H WNL, platelets 249, LFTs unremarkable, glucose 141, BNP 5070 Viral panel negative EKG: Electronic ventricular pacemaker ABG: PH 7.409, CO2 40.8, O2 55.7, O2 saturation 89.3%, oxyhemoglobin 87.9 CXR: Patchy right upper lung ground-glass opacities with mild diffuse reticulonodular opacities, may represent infection overlying chronic respiratory bronchiolitis or senescent/interstitial change Review of Systems Review of Systems: All systems reviewed & are unremarkable except as noted in HPI and below PMFSH Past Medical History Medical History (Updated 03/25/25 @ 07:07 by Morris Israel PA-C) Chronic anticoagulation Transient ischemic attack Gastroesophageal reflux disease Chronic kidney disease Depression with anxiety Deep venous thrombosis Heart failure with reduced ejection fraction EF was 20 to 25% in March 2021. Left bundle branch block Hyperlipidemia Hypertension Hypothyroidism Cardiomyopathy Bipolar disorder Surgical History Surgical History History of colon resection History of bilateral knee arthroplasty History of repair of left rotator cuff History of bladder suspension procedure History of tonsillectomy History of cardiac catheterization History of partial hysterectomy History of orthopedic surgery Family History Family History Father Hypertension Cerebrovascular accident Mother Family history of diabetes mellitus in first degree relative Family history of lung disease Family history of coronary artery disease Sibling Family history of diabetes mellitus in first degree relative Cardiomyopathy Son Family history of mental disorder Other Family history of alcoholism Family history of arthritis Family history of gout Social History Social History Social History: Surrogate medical decision maker: Man Linton, sibling. Code status: Full code. Smoking status: Never smoker Alcohol intake: never Substance use: never Substance use type: does not use Do You Feel Safe in your Home?: Yes Lack of Transportation: No Lack of Food: Never True Current Housing: I Have Housing Concerned About Future Housing: No Difficulty Paying Gas/Electric Bills: No Difficulty Paying for Meds: No Currently Unemployed: No Education: High School Diploma/GED Difficulty w/ Childcare or Family Care: No Living arrangements: with roommate(s) Additional living arrangements comments: . Has 1 child. Additional occupation/education comments: Retired from the [employer] Spiritual care concerns: No Meds Home Medications and Allergies Home Medications ?Medication ?Instructions ?Recorded ?Confirmed ?Type trazodone 150 mg tablet 150 mg PO HS 03/22/21 03/25/25 History venlafaxine 37.5 mg 37.5 mg PO DAILY 08/22/22 03/25/25 History capsule,extended release 24 hr (Effexor XR) rosuvastatin 40 mg tablet 40 mg PO DAILY 12/27/23 03/25/25 History amiodarone 200 mg tablet 400 mg PO DAILY 01/02/24 03/25/25 History clonazepam 0.5 mg tablet 0.5 mg PO TID 01/02/24 03/25/25 History levothyroxine 150 mcg tablet 150 mcg PO DAILY 01/02/24 03/25/25 History warfarin 3 mg tablet 3 mg PO DAILY 01/02/24 03/25/25 History carvedilol 12.5 mg tablet 25 mg PO DAILY 12/24/24 03/25/25 History albuterol sulfate 90 mcg/actuation 1 puff inhalation Q4H PRN 03/25/25 03/25/25 History aerosol inhaler shortness of breath or wheezing cyanocobalamin (vitamin B-12) 1,000 mcg subcut MONTHLY 03/25/25 03/25/25 History 1,000 mcg/mL injection solution donepezil 10 mg tablet 10 mg PO HS 03/25/25 03/25/25 History famotidine 20 mg tablet 20 mg PO Q12H PRN reflux 03/25/25 03/25/25 History furosemide 40 mg tablet 40 mg PO 3XW 03/25/25 03/25/25 History losartan 50 mg tablet 50 mg PO DAILY 03/25/25 03/25/25 History ondansetron 4 mg disintegrating 8 mg PO Q12H PRN nausea and 03/25/25 03/25/25 History tablet vomiting ondansetron 4 mg disintegrating 8 mg PO Q12H PRN nausea and 03/25/25 03/25/25 History tablet vomiting spironolactone 25 mg tablet 25 mg PO DAILY 03/25/25 03/25/25 History Allergies Allergy/AdvReac Type Severity Reaction Status Date / Time codeine Allergy Unknown Unknown Verified 03/20/25 07:54 lorazepam Allergy Unknown Unknown Verified 03/20/25 07:54 tramadol Allergy Unknown Unknown Verified 03/20/25 07:54 NSAIDS (Non-Steroidal AdvReac Unknown Nausea Verified 03/20/25 07:54 Anti-Inflamma sumatriptan AdvReac Unknown FELT Verified 03/20/25 07:54 HORRIBLE Vital Signs Vital Signs - 24 hr 03/24/25 21:45 03/24/25 21:48 03/24/25 21:48 Temperature 99.5 F Pulse Rate 113 H 111 H Respiratory Rate 24 H 20 Blood Pressure 184/102 H 190/124 H Pulse Oximetry 94 96 Oxygen Delivery Room Air Room Air 03/24/25 22:00 03/24/25 22:15 03/24/25 22:30 Temperature Pulse Rate 110 H 106 H 102 H Respiratory Rate 18 30 H 28 H Blood Pressure 176/94 H 178/91 H 154/92 H Pulse Oximetry 93 95 95 Oxygen Delivery 03/24/25 22:45 03/24/25 23:00 03/24/25 23:30 Temperature Pulse Rate 97 92 88 Respiratory Rate 24 H 23 H 28 H Blood Pressure 154/85 H 156/78 H 139/92 H Pulse Oximetry 93 97 93 Oxygen Delivery 03/25/25 00:00 03/25/25 00:30 03/25/25 01:30 Temperature Pulse Rate 83 80 80 Respiratory Rate 19 20 20 Blood Pressure 166/68 H 135/79 137/98 H Pulse Oximetry 94 98 98 Oxygen Delivery 03/25/25 02:08 03/25/25 02:12 03/25/25 02:14 Temperature Pulse Rate 92 70 70 Respiratory Rate 23 H 18 20 Blood Pressure 156/78 H 152/62 H Pulse Oximetry 97 99 98 Oxygen Delivery 03/25/25 02:49 03/25/25 04:00 03/25/25 04:00 Temperature 98.6 F 98.1 F Pulse Rate 72 64 63 Respiratory Rate 16 16 Blood Pressure 109/59 L 150/70 H Pulse Oximetry 98 96 Oxygen Delivery Exam Narrative: Gen - well appearing female in no acute respiratory distress who is nontoxic- appearing lying semi recumbent in bed HEENT - normocephalic. Atraumatic. Pupils equal round and reactive. Extraocular motions intact. Nares patent. Moist mucous membranes. Oropharynx clear Neck - neck was supple. No dominant adenopathy, thyromegaly or masses. Chest - lungs are clear to auscultation bilaterally. No wheezes or crackles. CV - heart was regular rate and rhythm. S1-S2. No murmurs gallops or rubs. Abd - abdomen was soft. Nontender. Nondistended. Positive bowel sounds. No organomegaly or masses. Ext - no clubbing, cyanosis or edema. 2+ DP pulses bilaterally. Neuro - patient is alert and oriented x4. Strength is 5/5 in both upper and lower extremities. Cranial nerves 2-12 are intact. Speech is clear. Psych - normal mood and affect. Patient is pleasant and cooperative. Skin - warm and dry. No rashes noted. H&P: Results Labs Labs: Short CBC 03/24/25 Range/Units 21:42 WBC 12.3 H (4.5-10.0) K/mm3 Hgb 12.7 (12.0-15.0) g/dL Hct 41.1 (37.0-47.0) % Plt Count 249 (150-375) k/mm3 BMP 03/24/25 21:42 Sodium 134 L Potassium 4.3 Chloride 103 Carbon Dioxide 22 BUN 11 Creatinine 1.25 H Glucose 141 H Calcium 9.0 Cardiac Enzymes 03/24/25 Range/Units 21:42 Troponin I 0.022 (0.000-0.034) ng/mL Liver Function 03/24/25 Range/Units 21:42 Total Bilirubin 0.7 (0.2-1.3) mg/dL AST 42 H (14-36) U/L ALT 16 (6-35) U/L Alkaline Phosphatase 55 (38-126) U/L Albumin 4.4 (3.5-5.1) g/dL Assessment and Plan Assessment and plan (1) Pneumonia: Code(s): J18.9 - Pneumonia, unspecified organism Status: Acute Assessment and Plan: * CXR: Patchy right upper lung groundglass opacities and mild diffuse reticulonodular opacities, may represent infection overlying chronic respiratory bronchiolitis or senescent/interstitial change. * started on CAP tx: azithromycin & ceftriaxone * Viral PCR: negative for Flu/COVID/RSV * Consider ordering legionella, mycoplasma and pneumococcal - pending * no supplemental O2 requirement * supportive treatment * trend labs * Monitor vital signs, I&Os, neuro status and patient is a fall risk * Follow WBC, serum electrolytes, temperature curves and cultures * Send sputum cultures * Gentle IV fluid resuscitation (2) CHF exacerbation: Qualifiers: Heart failure type: unspecified Qualified Code(s): I50.9 - Heart failure, unspecified Code(s): I50.9 - Heart failure, unspecified Status: Acute Assessment and Plan: * Patient reports that she has not been taking her at-home CHF medication * Symptoms: SOB * Current medications: Furosemide 40mg * BNP: 5070 * EKG: Electronic ventricular pacemaker * Chest XR: Patchy right upper lung groundglass opacities and mild diffuse reticulonodular opacities, may represent infection overlying chronic respiratory bronchiolitis or senescent/interstitial change. * Echo:pending * Monitor vital signs, I&Os, BUN/creatinine, daily weights, neuro status and patient is a fall risk * Monitor serum electrolytes, Keep serum Potassium>4 and serum Magnesium>2 and CBC (3) Acute hypoxemic respiratory failure: Code(s): J96.01 - Acute respiratory failure with hypoxia Status: Acute Assessment and Plan: * Symptoms: Shortness of breath * SpO2: 96% on room air * Suspected cause: CHF exacerbation, Infectious? * ABG: PH 7.0, CO2 40 a, PO2 557, O2 saturation 89.3%, oxyhemoglobin 87.9 % * EKG: Electronic ventricular paced * Chest XR: Patchy right upper lung groundglass opacities and mild diffuse reticulonodular opacities, may represent infection overlying chronic respiratory bronchiolitis or senescent/interstitial change. * Likely secondary to underlying pneumonia and CHF exacerbation due to medical noncompliance (4) Chronic kidney disease: Code(s): N18.9 - Chronic kidney disease, unspecified Status: Acute Assessment and Plan: * Creatinine: 1.25, GFR: 41, BUN:11 (Baseline Cr appears to be around 1.1-1.2) * Trend renal function * Trend electrolytes, correct as needed (5) Dysphagia: Code(s): R13.10 - Dysphagia, unspecified Status: Acute Assessment and Plan: * Speech eval * Reports history of allergies, states that she took a clear to last night and does not have any presenting symptoms at this time * Oropharynx clear, no evidence angioedema * Claritin 5 mg p.o. daily (6) Hypertension: Qualifiers: Hypertension type: primary hypertension Qualified Code(s): I10 - Essential (primary) hypertension Code(s): I10 - Essential (primary) hypertension Status: Chronic Assessment and Plan: * Patient's blood pressure was reviewed on 03/25 * Blood pressure remains well controlled. * Will continue current medications. (7) Hyperlipidemia: Code(s): E78.5 - Hyperlipidemia, unspecified Status: Chronic Assessment and Plan: * Continue rosuvastatin 40 mg p.o. (8) Hypothyroidism: Qualifiers: Hypothyroidism type: acquired Qualified Code(s): E03.9 - Hypothyroidism, unspecified Code(s): E03.9 - Hypothyroidism, unspecified Status: Chronic Assessment and Plan: * Continue levothyroxine 150mcg Quality VTE Prophylaxis VTE prophylaxis: pharmacologic ordered
[2025-03-25 07:35] LABS: Hematocrit 35.7 % (37.0-47.0); Hemoglobin 11.1 g/dL (12.0-15.0); Immature Granulocyte Percent A 0.1 % (0-0.5); Lymphocytes Absolute Auto 1.91 K/mm3 (0.9-3.2); Mean Corpuscular HGB Conc 31.1 g/dl (32-36); Mean Corpuscular Hemoglobin 31.5 pg (26-34); Mean Corpuscular Volume 101.4 fl (80-100); Nucleated Red Blood Cells Absolute Auto 0.000 K/mm3 (0.0-0.012); Nucleated Red Blood Cells Perc 0.0 % (0.0-0.2); Platelet Count Result 211 k/mm3 (150-375); Red Blood Count 3.52 M/mm3 (4.2-5.4); White Blood Count 7.0 K/mm3 (4.5-10.0)
[2025-03-25 07:50] LABS: Alanine Aminotransferase 13 U/L (6-35); Albumin Level 3.7 g/dL (3.5-5.1); Alkaline Phosphatase 52 U/L (38-126); Anion Gap 7 mmol/L (4-12); Aspartate Amino Transferase 28 U/L (14-36); Bilirubin,Total 0.4 mg/dL (0.2-1.3); Blood Urea Nitrogen 11 mg/dL (7-17); Calcium 8.5 mg/dL (8.4-10.2); Carbon Dioxide 30 mmol/L (22-30); Chloride 100 mmol/L (98-107); Estimated CRCL calculation 34 ml/min; Estimated Glomerular Filt Rate 41; Glucose 99 mg/dL (65-110); Potassium 3.4 mmol/L (3.4-5.0); Sodium 137 mmol/L (137-145); Total Protein 7.1 g/dL (6.3-8.2)
[2025-03-25] MEDS: ROSUVASTATIN 20 MG TABLET 40 MG PO (09:20)
[2025-03-25] MEDS: FAMOTIDINE 20 MG TABLET PO ×2 (09:20→22:45)
[2025-03-25] MEDS: AMIODARONE HCL 200 MG TABLET 400 MG PO (09:20)
[2025-03-25] MEDS: clonazePAM (*CRX) 0.5 MG TABLET PO ×3 (09:20→17:15)
[2025-03-25] MEDS: VENLAFAXINE HCL XR 37.5 MG CAP PO (09:20)
[2025-03-25] MEDS: SPIRONOLACTONE 25 MG TABLET PO (09:20)
--- NOTE | 2025-03-25 11:18 | PCSTNOTE ---
Attempted to complete bedside swallow evaluation on this date. Patient unable to follow directions to complete evaluation.
--- NOTE | 2025-03-25 11:36 | PCSTNOTE ---
Please refer to the Bedside Swallow Evaluation in the EMR. Please note, silent aspiration cannot be ruled out at bedside.
[2025-03-25] MEDS: ENOXAPARIN 40 MG/0.4 ML SYRINGE SUB-Q (13:41)
[2025-03-25] MEDS: DONEPEZIL HCL 10 MG TABLET PO (22:45)
[2025-03-26] VITALS (15 sets, daily range): BP systolic 83–161; BP diastolic 47–79; PULSE 60–88; RESP 14–20; TEMP 36.6–36.8; O2SAT 90–100
[2025-03-26] MEDS: cefTRIAXone 1 GM in SODIUM CHLORIDE 0.9% IV 50 ML 100 ML IVPB (01:50)
[2025-03-26] MEDS: DOXYCYCLINE IV 100 MG in SODIUM CHLORIDE 0.9% IV 100 ML IVPB ×2 (02:20→13:29)
[2025-03-26 05:09] LABS: Hematocrit 36.8 % (37.0-47.0); Hemoglobin 11.4 g/dL (12.0-15.0); Immature Granulocyte Percent A 0.3 % (0-0.5); Lymphocytes Absolute Auto 1.35 K/mm3 (0.9-3.2); Mean Corpuscular HGB Conc 31.0 g/dl (32-36); Mean Corpuscular Hemoglobin 31.7 pg (26-34); Mean Corpuscular Volume 102.2 fl (80-100); Nucleated Red Blood Cells Absolute Auto 0.000 K/mm3 (0.0-0.012); Nucleated Red Blood Cells Perc 0.0 % (0.0-0.2); Platelet Count Result 198 k/mm3 (150-375); Red Blood Count 3.60 M/mm3 (4.2-5.4); White Blood Count 7.2 K/mm3 (4.5-10.0)
[2025-03-26] MEDS: ACETAMINOPHEN 325 MG TABLET 650 MG PO ×3 (05:17→17:58)
[2025-03-26 05:36] LABS: Alanine Aminotransferase 13 U/L (6-35); Albumin Level 3.7 g/dL (3.5-5.1); Alkaline Phosphatase 54 U/L (38-126); Anion Gap 8 mmol/L (4-12); Aspartate Amino Transferase 28 U/L (14-36); Bilirubin,Total 0.3 mg/dL (0.2-1.3); Blood Urea Nitrogen 18 mg/dL (7-17); Calcium 8.5 mg/dL (8.4-10.2); Carbon Dioxide 26 mmol/L (22-30); Chloride 102 mmol/L (98-107); Estimated CRCL calculation 31 ml/min; Estimated Glomerular Filt Rate 38; Glucose 112 mg/dL (65-110); Potassium 3.5 mmol/L (3.4-5.0); Sodium 136 mmol/L (137-145); Total Protein 6.9 g/dL (6.3-8.2)
[2025-03-26 05:38] LABS: INR 3.6; Prothrombin Time 34.1 Seconds (11.1-14.7)
[2025-03-26 05:40] LABS: NT Pro B Type Natriuretic Pept 2790 pg/mL (19.9-100)
[2025-03-26] MEDS: LEVOTHYROXINE SODIUM 150 MCG TABLET PO (06:30)
[2025-03-26 08:08] LABS: Magnesium 2.1 mg/dL (1.6-2.3)
[2025-03-26] MEDS: VENLAFAXINE HCL XR 37.5 MG CAP PO (09:32)
[2025-03-26] MEDS: LORATADINE 5 MG TABLET PO (09:32)
[2025-03-26] MEDS: clonazePAM (*CRX) 0.5 MG TABLET PO ×3 (09:33→16:58)
[2025-03-26] MEDS: AMIODARONE HCL 200 MG TABLET 400 MG PO (09:33)
[2025-03-26] MEDS: ROSUVASTATIN 20 MG TABLET 40 MG PO (09:34)
[2025-03-26] MEDS: ENOXAPARIN 40 MG/0.4 ML SYRINGE SUB-Q (09:35)
[2025-03-26] MEDS: FAMOTIDINE 20 MG TABLET PO ×2 (09:35→20:08)
--- NOTE | 2025-03-26 10:39 | P.PNIM_ITS ---
Progress Note: A&P Assessment and Plan (1) Pneumonia: Code(s): J18.9 - Pneumonia, unspecified organism Status: Acute Assessment and Plan: * CXR: Patchy right upper lung groundglass opacities and mild diffuse reticulonodular opacities, may represent infection overlying chronic respiratory bronchiolitis or senescent/interstitial change. * started on CAP tx: ceftriaxone * Viral PCR: negative for Flu/COVID/RSV * Consider ordering legionella, mycoplasma and pneumococcal - pending * Supplemental O2 requirement 2 liters with Sa02 95%. * supportive treatment * trend labs * Monitor vital signs, I&Os, neuro status and patient is a fall risk * Follow WBC, serum electrolytes, temperature curves and cultures * Send sputum cultures * Guaifenesin 600 mg PO q 12. * PT/OT. (2) CHF exacerbation: Qualifiers: Heart failure type: unspecified Qualified Code(s): I50.9 - Heart failure, unspecified Code(s): I50.9 - Heart failure, unspecified Status: Acute Assessment and Plan: * Patient reports that she has not been taking her at-home CHF medication * Symptoms: SOB * Current medications: Furosemide 40mg * BNP: 5070>2790. * EKG: Electronic ventricular pacemaker * Chest XR: Patchy right upper lung groundglass opacities and mild diffuse reticulonodular opacities, may represent infection overlying chronic respiratory bronchiolitis or senescent/interstitial change. * Echo:pending * Monitor vital signs, I&Os, BUN/creatinine, daily weights, neuro status and patient is a fall risk * Monitor serum electrolytes, Keep serum Potassium>4 and serum Magnesium>2 and CBC (3) Acute hypoxemic respiratory failure: Code(s): J96.01 - Acute respiratory failure with hypoxia Status: Acute Assessment and Plan: * 02@2L nasal cannula with Sa02 95%. * Suspected cause: CHF exacerbation, Infectious? * ABG: PH 7.0, CO2 40 a, PO2 557, O2 saturation 89.3%, oxyhemoglobin 87.9 % * EKG: Electronic ventricular paced * Chest XR: Patchy right upper lung groundglass opacities and mild diffuse reticulonodular opacities, may represent infection overlying chronic respiratory bronchiolitis or senescent/interstitial change. * Likely secondary to underlying pneumonia and CHF exacerbation due to medical noncompliance (4) Chronic kidney disease: Code(s): N18.9 - Chronic kidney disease, unspecified Status: Acute Assessment and Plan: * Creatinine: 1.36, GFR: 38, BUN:18 (Baseline Cr appears to be around 1.1-1.2) * Trend renal function * Trend electrolytes, correct as needed (5) Dysphagia: Code(s): R13.10 - Dysphagia, unspecified Status: Acute Assessment and Plan: * Speech eval * Reports history of allergies, states that she took a clear to last night and does not have any presenting symptoms at this time * Oropharynx clear, no evidence angioedema * Claritin 5 mg p.o. daily (6) Hypertension: Qualifiers: Hypertension type: primary hypertension Qualified Code(s): I10 - Essential (primary) hypertension Code(s): I10 - Essential (primary) hypertension Status: Chronic Assessment and Plan: * Blood pressure 121/64. * Carvedilol 25 mg PO daily, Losartan 50 mg PO daily, and Spironolactone 25 mg PO daily. (7) Hyperlipidemia: Code(s): E78.5 - Hyperlipidemia, unspecified Status: Chronic Assessment and Plan: * Rosuvastatin 40 mg PO daily. (8) Hypothyroidism: Qualifiers: Hypothyroidism type: acquired Qualified Code(s): E03.9 - Hypothyroidism, unspecified Code(s): E03.9 - Hypothyroidism, unspecified Status: Chronic Assessment and Plan: * Levothyroxine 150 mcg PO daily. Subjective Date/time seen: 03/26/25 10:39 Interval history: Patient sitting up in bed. Patient reports that she had episode in the bathroom where she could not move. Blood pressure was 83/47. Patient when back in bed was 161/79. Later blood pressure 113/64. Per nursing patient with poor intake yesterday. Patient reports that she started feeling weak the day she came to the hospital. Patient denies chest pain, palpitations, headache, dizziness, nausea, or vomiting. Patient agreeable to increase oral intake and try Ensure drinks. Review of Systems Review of Systems: All systems reviewed & are unremarkable except as noted in HPI and below Exam Const: General: comfortable and no acute distress Eyes: Sclera: sclerae normal Resp: Effort & Inspection: normal respiratory effort Auscultation: clear to auscultation bilaterally Cardio: Rate: regular rate Rhythm: regular rhythm GI: GI Palp: Yes Soft to palpation Auscultation: normal bowel sounds Skin: General skin exam: rashes and/or lesions noted Neuro: General: gait normal Speech: normal speech Extrem: General: no pedal edema Psych: Mental Status: mental status grossly normal Affect: normal affect Objective Data Vital Signs Vital Signs: Vital Signs - 24 hr 03/25/25 12:00 03/25/25 12:00 03/25/25 16:00 Temperature 98.7 F 98.6 F Pulse Rate 60 60 63 Respiratory Rate 14 14 Blood Pressure 103/54 L 123/54 L Pulse Oximetry 100 99 Oxygen Delivery Oxygen Flow Rate 03/25/25 16:00 03/25/25 20:00 03/25/25 20:00 Temperature 97.2 F L Pulse Rate 61 60 60 Respiratory Rate 20 18 Blood Pressure 123/54 L Pulse Oximetry 100 99 Oxygen Delivery Nasal Cannula Oxygen Flow Rate 2 03/25/25 20:00 03/25/25 22:58 03/26/25 00:00 Temperature 97.8 F Pulse Rate 60 60 60 Respiratory Rate 16 Blood Pressure 120/43 L Pulse Oximetry 100 Oxygen Delivery Oxygen Flow Rate 03/26/25 04:00 03/26/25 07:56 03/26/25 08:00 Temperature 98.2 F Pulse Rate 66 60 61 Respiratory Rate 18 Blood Pressure 118/47 L Pulse Oximetry 99 Oxygen Delivery Oxygen Flow Rate 03/26/25 09:30 03/26/25 09:33 03/26/25 09:35 Temperature Pulse Rate 74 74 Respiratory Rate Blood Pressure Pulse Oximetry 93 Oxygen Delivery Nasal Cannula Oxygen Flow Rate 3 03/26/25 09:37 03/26/25 09:53 Temperature Pulse Rate 88 84 Respiratory Rate 20 Blood Pressure 83/47 L 161/79 H Pulse Oximetry 90 94 Oxygen Delivery Oxygen Flow Rate Intake/Output Intake/Output: Intake & Output 03/23/25 03/24/25 03/25/25 03/26/25 23:59 23:59 23:59 23:59 Intake Total 2370 300 Output Total 940 400 Balance 1430 -100 Meds/Results Medications: Active Medications Generic Name Dose Route Start Last Admin Trade Name Freq PRN Reason Stop Dose Admin Acetaminophen 650 mg 03/25/25 04:48 03/26/25 09:35 Acetaminophen 325 Mg Tablet PO 650 mg Q4H PRN Administration Mild Pain (1-3) fever or sleep Amiodarone HCl 400 mg 03/25/25 08:00 03/26/25 09:33 Amiodarone Hcl 200 Mg Tablet PO 400 mg DAILY@0800 STAN Administration Carvedilol 25 mg 03/25/25 09:00 03/26/25 09:35 Carvedilol 25 Mg Tablet PO 25 mg DAILY STAN Administration Clonazepam 0.5 mg 03/25/25 09:00 03/26/25 09:33 Clonazepam (*Crx) 0.5 Mg Tablet PO 0.5 mg TID STAN Administration Donepezil HCl 10 mg 03/25/25 21:00 03/25/25 22:45 Donepezil Hcl 10 Mg Tablet PO 10 mg HS STAN Administration Enoxaparin Sodium 40 mg 03/26/25 09:00 03/26/25 09:35 Enoxaparin 40 Mg/0.4 Ml Syringe SUB-Q 40 mg DAILY STAN Administration Famotidine 20 mg 03/25/25 09:00 03/26/25 09:35 Famotidine 20 Mg Tablet PO 20 mg Q12HR STAN Administration Ceftriaxone Sodium 1 gm/ 50 mls @ 100 mls/hr 03/26/25 01:30 03/26/25 01:50 Sodium Chloride IVPB 100 mls/hr Q24H STAN Administration Doxycycline Hyclate 100 mg/ 100 mls @ 100 mls/hr 03/25/25 14:00 03/26/25 03:20 Sodium Chloride IVPB Infused Q12H STAN Infusion Levothyroxine Sodium 150 mcg 03/25/25 06:30 03/26/25 06:30 Levothyroxine Sodium 150 Mcg Tablet PO 150 mcg DAILY@0630 STAN Administration Loratadine 5 mg 03/25/25 09:00 03/26/25 09:32 Loratadine 5 Mg Tablet PO 5 mg QAM STAN Administration Losartan Potassium 50 mg 03/25/25 09:00 03/26/25 09:49 Losartan Potassium 50 Mg Tablet PO Not Given DAILY STAN Perflutren Lipid Microsphere 0 ml 03/25/25 07:09 Perflutren Lipid Microspheres 1.5 Ml Vial Diluted To 10 Ml Total Volume IV PUSH 03/28/25 07:09 ONCE PRN adequate visualization Protocol Rosuvastatin Calcium 40 mg 03/25/25 09:00 03/26/25 09:34 Rosuvastatin 20 Mg Tablet PO 40 mg DAILY [facility] Administration Spironolactone 25 mg 03/25/25 09:00 03/26/25 09:49 Spironolactone 25 Mg Tablet PO Not Given DAILY [facility] Trazodone HCl 150 mg 03/25/25 21:00 03/25/25 22:45 Trazodone Hcl 50 Mg Tablet PO 150 mg HS [facility] Administration Venlafaxine HCl 37.5 mg 03/25/25 08:00 03/26/25 09:32 Venlafaxine Hcl Xr 37.5 Mg Cap PO 37.5 mg DAILY@0800 [facility] Administration Warfarin Sodium 3 mg 03/25/25 17:00 Warfarin (*Pbkc) 3 Mg Tablet PO DAILY@1700 [facility] Radiology Results: ITS Impressions Chest X-Ray 03/24/25 22:35 IMPRESSION: Patchy right upper lung groundglass opacities and mild diffuse reticulonodular opacities, may represent infection overlying chronic respiratory bronchiolitis or senescent/interstitial change. Head CT 03/25/25 14:37 IMPRESSION: No evidence for acute intracranial hemorrhage or calvarial fracture. Labs Labs: Laboratory Results - last 24 hr 03/26/25 03/26/25 04:56 09:57 WBC 7.2 RBC 3.60 L Hgb 11.4 L Hct 36.8 L MCV 102.2 H MCH 31.7 MCHC 31.0 L RDW 13.9 Plt Count 198 MPV 9.3 Immature Gran % (Auto) 0.3 Neut % (Auto) 67.2 Lymph % (Auto) 18.9 [place] % (Auto) 10.5 H Eos % (Auto) 2.7 Baso % (Auto) 0.4 Lymph # (Auto) 1.35 [place] # (Auto) 0.8 H Eos # (Auto) 0.2 Baso # (Auto) 0.0 Abs Immat Gran (auto) 0.02 Absolute Neuts (auto) 4.8 Absolute Nucleated RBC 0.000 Nucleated RBC % 0.0 PT 34.1 H INR 3.6 Sodium 136 L Potassium 3.5 Chloride 102 Carbon Dioxide 26 Anion Gap 8 BUN 18 H Creatinine 1.36 H Estim Creat Clear Calc 31 Estimated GFR 38 L Glucose 112 H POC Capillary Glucose 130 H Calcium 8.5 Magnesium 2.1 Total Bilirubin 0.3 AST 28 ALT 13 Alkaline Phosphatase 54 NT-Pro-B Natriuret Pep 2790 H Total Protein 6.9 Albumin 3.7 Quality VTE Prophylaxis VTE prophylaxis: pharmacologic ordered
[2025-03-26] MEDS: PROCHLORPERAZINE EDISYLATE 10 MG/2 ML VIAL IV PUSH ×2 (13:29→20:10)
[2025-03-26] MEDS: guaiFENesin 12 HR 600 MG TABCR PO ×2 (13:29→20:07)
[2025-03-26] MEDS: DONEPEZIL HCL 10 MG TABLET PO (20:09)
[2025-03-27] VITALS (13 sets, daily range): BP systolic 99–150; BP diastolic 34–65; PULSE 60–73; RESP 14–18; TEMP 36.2–36.7; O2SAT 93–98
[2025-03-27] MEDS: cefTRIAXone 1 GM in SODIUM CHLORIDE 0.9% IV 50 ML 100 ML IVPB (01:18)
[2025-03-27] MEDS: DOXYCYCLINE IV 100 MG in SODIUM CHLORIDE 0.9% IV 100 ML IVPB ×2 (01:18→13:54)
[2025-03-27] MEDS: ACETAMINOPHEN 325 MG TABLET 650 MG PO ×2 (01:58→20:32)
[2025-03-27 05:44] LABS: Hematocrit 36.0 % (37.0-47.0); Hemoglobin 11.1 g/dL (12.0-15.0); Immature Granulocyte Percent A 0.2 % (0-0.5); Lymphocytes Absolute Auto 1.81 K/mm3 (0.9-3.2); Mean Corpuscular HGB Conc 30.8 g/dl (32-36); Mean Corpuscular Hemoglobin 31.8 pg (26-34); Mean Corpuscular Volume 103.2 fl (80-100); Nucleated Red Blood Cells Absolute Auto 0.000 K/mm3 (0.0-0.012); Nucleated Red Blood Cells Perc 0.0 % (0.0-0.2); Platelet Count Result 203 k/mm3 (150-375); Red Blood Count 3.49 M/mm3 (4.2-5.4); White Blood Count 6.3 K/mm3 (4.5-10.0)
[2025-03-27 05:56] LABS: INR 2.7; Prothrombin Time 27.9 Seconds (11.1-14.7)
[2025-03-27 06:06] LABS: Alanine Aminotransferase 13 U/L (6-35); Albumin Level 3.5 g/dL (3.5-5.1); Alkaline Phosphatase 49 U/L (38-126); Anion Gap 4 mmol/L (4-12); Aspartate Amino Transferase 25 U/L (14-36); Bilirubin,Total 0.2 mg/dL (0.2-1.3); Blood Urea Nitrogen 17 mg/dL (7-17); Calcium 8.6 mg/dL (8.4-10.2); Carbon Dioxide 30 mmol/L (22-30); Chloride 103 mmol/L (98-107); Estimated CRCL calculation 37 ml/min; Estimated Glomerular Filt Rate 47; Glucose 85 mg/dL (65-110); Magnesium 2.2 mg/dL (1.6-2.3); Potassium 3.6 mmol/L (3.4-5.0); Sodium 137 mmol/L (137-145); Total Protein 6.8 g/dL (6.3-8.2)
[2025-03-27 06:10] LABS: NT Pro B Type Natriuretic Pept 1390 pg/mL (19.9-100)
[2025-03-27] MEDS: LEVOTHYROXINE SODIUM 150 MCG TABLET PO (06:19)
--- NOTE | 2025-03-27 08:34 | P.CDI_ITS ---
CDI Query Clarification Request Please specify type of heart failure if known. * Systolic * Diastolic * Combined Systolic and Diastolic * Unknown The medical chart reflects the following: (2) CHF exacerbation: Qualifiers: Heart failure type: unspecified Qualified Code(s): I50.9 - Heart failure, unspecified Code(s): I50.9 - Heart failure, unspecified Status: Acute Assessment and Plan: * Patient reports that she has not been taking her at-home CHF medication * Symptoms: SOB * Current medications: Furosemide 40mg * BNP: 5070>2790. * EKG: Electronic ventricular pacemaker * Chest XR: Patchy right upper lung groundglass opacities and mild diffuse reticulonodular opacities, may represent infection overlying chronic respiratory bronchiolitis or senescent/interstitial change. * Echo:pending * Monitor vital signs, I&Os, BUN/creatinine, daily weights, neuro status and patient is a fall risk * Monitor serum electrolytes, Keep serum Potassium>4 and serum Magnesium>2 and CBC Summary 1. Left ventricular chamber dimension is mildly enlarged. 2. There is mildly increased left ventricular wall thickness. 3. Left ventricular systolic function is mildly reduced, estimated at 45-50. Mild global hypokinesis with more pronounced hypokinesis of the basal [place]. 4. The left ventricular diastolic function is grade I diastolic dysfunction. 5. Right ventricular chamber dimension is normal. 6. Right ventricular systolic function is normal. 7. Left atrial chamber dimension is mildly enlarged. 8. There is mild aortic valve regurgitation. 9. There is at least moderate mitral valve regurgitation, which may be underestimated due to eccentricity of the jet. 10. There is mild tricuspid valve regurgitation. <Allison Lawrence RN - Last Filed: 03/27/25 08:36> Provider Comments Combined systolic-diastolic <Vinny Santamaria MD - Last Filed: 03/28/25 07:18>
[2025-03-27] MEDS: ENOXAPARIN 40 MG/0.4 ML SYRINGE SUB-Q (09:17)
[2025-03-27] MEDS: PROCHLORPERAZINE EDISYLATE 10 MG/2 ML VIAL IV PUSH ×2 (09:17→17:57)
[2025-03-27] MEDS: FAMOTIDINE 20 MG TABLET PO ×2 (09:18→20:32)
[2025-03-27] MEDS: VENLAFAXINE HCL XR 37.5 MG CAP PO (09:18)
[2025-03-27] MEDS: AMIODARONE HCL 200 MG TABLET 400 MG PO (09:18)
[2025-03-27] MEDS: clonazePAM (*CRX) 0.5 MG TABLET PO ×3 (09:18→17:53)
[2025-03-27] MEDS: ROSUVASTATIN 20 MG TABLET 40 MG PO (09:18)
[2025-03-27] MEDS: LOSARTAN POTASSIUM 50 MG TABLET PO (09:18)
[2025-03-27] MEDS: guaiFENesin 12 HR 600 MG TABCR PO ×2 (09:19→20:32)
[2025-03-27] MEDS: SPIRONOLACTONE 25 MG TABLET PO (09:19)
[2025-03-27] MEDS: LORATADINE 5 MG TABLET PO (09:19)
--- NOTE | 2025-03-27 09:58 | P.PNIM_ITS ---
Progress Note: A&P Assessment and Plan (1) Pneumonia: Code(s): J18.9 - Pneumonia, unspecified organism Status: Acute Assessment and Plan: * CXR: Patchy right upper lung groundglass opacities and mild diffuse reticulonodular opacities, may represent infection overlying chronic respiratory bronchiolitis or senescent/interstitial change. * started on CAP tx: ceftriaxone and doxycycline * Viral PCR: negative for Flu/COVID/RSV * legionella, mycoplasma and pneumococcal - pending * Supplemental O2 requirement 2 liters with Sa02 95%. * supportive treatment * Guaifenesin 600 mg PO q 12. * PT/OT. (2) CHF exacerbation: Qualifiers: Heart failure type: unspecified Qualified Code(s): I50.9 - Heart failure, unspecified Code(s): I50.9 - Heart failure, unspecified Status: Acute Assessment and Plan: * Patient reports that she has not been taking her at-home CHF medication * Symptoms: SOB * Current medications: Furosemide 40mg * BNP: 5070>2790. * EKG: Electronic ventricular pacemaker * Chest XR: Patchy right upper lung groundglass opacities and mild diffuse reticulonodular opacities, may represent infection overlying chronic respiratory bronchiolitis or senescent/interstitial change. * Echo: EF 45-50% mild global hypokinesis with more pronounced hypokinesis of the basal villa grade 1 diastolic dysfunction. Moderate mitral valve regurgitation mild tricuspid valve regurgitation. Previous echo from 2020 reviewed which showed ejection fraction 20-25%. (3) Acute hypoxemic respiratory failure: Code(s): J96.01 - Acute respiratory failure with hypoxia Status: Acute Assessment and Plan: * 02@2L nasal cannula with Sa02 95%. * Suspected cause: CHF exacerbation, Infectious? * ABG: PH 7.0, CO2 40 a, PO2 557, O2 saturation 89.3%, oxyhemoglobin 87.9 % * EKG: Electronic ventricular paced * Chest XR: Patchy right upper lung groundglass opacities and mild diffuse reticulonodular opacities, may represent infection overlying chronic respiratory bronchiolitis or senescent/interstitial change. * Likely secondary to underlying pneumonia and CHF exacerbation due to medical noncompliance (4) Chronic kidney disease: Code(s): N18.9 - Chronic kidney disease, unspecified Status: Acute Assessment and Plan: * Creatinine: 1.36, GFR: 38, BUN:18 (Baseline Cr appears to be around 1.1-1.2) * Trend renal function * Trend electrolytes, correct as needed (5) Dysphagia: Code(s): R13.10 - Dysphagia, unspecified Status: Acute Assessment and Plan: * Speech eval * Reports history of allergies, states that she took a clear to last night and does not have any presenting symptoms at this time * Oropharynx clear, no evidence angioedema * Claritin 5 mg p.o. daily (6) Hypertension: Qualifiers: Hypertension type: primary hypertension Qualified Code(s): I10 - Essential (primary) hypertension Code(s): I10 - Essential (primary) hypertension Status: Chronic Assessment and Plan: * Carvedilol 25 mg PO daily, Losartan 50 mg PO daily, and Spironolactone 25 mg PO daily. (7) Hyperlipidemia: Code(s): E78.5 - Hyperlipidemia, unspecified Status: Chronic Assessment and Plan: * Rosuvastatin 40 mg PO daily. (8) Hypothyroidism: Qualifiers: Hypothyroidism type: acquired Qualified Code(s): E03.9 - Hy pothyroidism, unspecified Code(s): E03.9 - Hypothyroidism, unspecified Status: Chronic Assessment and Plan: * Levothyroxine 150 mcg PO daily. Subjective Date/time seen: 03/27/25 09:58 Interval history: Reports some nausea. No new complaints. Feeling better. Has not gotten up yet. She wants to do that. No abdominal pain nausea vomiting. No cough or shortness of breath. Review of Systems Review of Systems: All systems reviewed & are unremarkable except as noted in HPI and below Exam Narrative: Gen - well appearing female in no acute respiratory distress who is nontoxic- appearing lying semi recumbent in bed HEENT - normocephalic. Atraumatic. Pupils equal round and reactive. Extraocular motions intact. Neck - neck was supple. No dominant adenopathy, thyromegaly or masses. Chest - lungs are clear to auscultation bilaterally. No wheezes or crackles. CV - heart was regular rate and rhythm. S1-S2. No murmurs gallops or rubs. Abd - abdomen was soft. Nontender. Nondistended. Positive bowel sounds. No organomegaly or masses. Ext - no clubbing, cyanosis or edema. 2+ DP pulses bilaterally. Neuro - patient is alert and oriented x4. Strength is 5/5 in both upper and lower extremities. Cranial nerves 2-12 are intact. Speech is clear. Psych - normal mood and affect. Patient is pleasant and cooperative. Skin - warm and dry. No rashes noted. Objective Data Vital Signs Vital Signs: Vital Signs - 24 hr 03/26/25 12:00 03/26/25 12:53 03/26/25 14:36 Temperature 97.8 F Pulse Rate 60 60 Respiratory Rate 18 Blood Pressure 113/64 Pulse Oximetry 95 99 Oxygen Delivery Nasal Cannula Oxygen Flow Rate 2 03/26/25 16:00 03/26/25 20:00 03/26/25 20:00 Temperature Pulse Rate 60 60 Respiratory Rate Blood Pressure Pulse Oximetry 99 Oxygen Delivery Nasal Cannula Oxygen Flow Rate 1 03/26/25 22:34 03/27/25 00:00 03/27/25 00:00 Temperature 98.0 F 97.8 F Pulse Rate 60 71 60 Respiratory Rate 14 16 Blood Pressure 110/50 L 149/58 H Pulse Oximetry 100 98 Oxygen Delivery Oxygen Flow Rate 03/27/25 04:00 03/27/25 07:07 03/27/25 09:18 Temperature 98.0 F Pulse Rate 60 65 65 Respiratory Rate 16 Blood Pressure 144/54 H Pulse Oximetry 97 Oxygen Delivery Oxygen Flow Rate 03/27/25 09:18 Temperature Pulse Rate 65 Respiratory Rate Blood Pressure Pulse Oximetry Oxygen Delivery Oxygen Flow Rate Intake/Output Intake/Output: Intake & Output 03/24/25 03/25/25 03/26/25 03/27/25 23:59 23:59 23:59 23:59 Intake Total 2370 1150 700 Output Total 745 945 6871 Balance 1430 550 -601 Meds/Results Medications: Active Medications Generic Name Dose Route Start Last Admin Trade Name Freq PRN Reason Stop Dose Admin Acetaminophen 650 mg 03/25/25 04:48 03/27/25 01:58 Acetaminophen 325 Mg Tablet PO 650 mg Q4H PRN Administration Mild Pain (1-3) fever or sleep Amiodarone HCl 400 mg 03/25/25 08:00 03/27/25 09:18 Amiodarone Hcl 200 Mg Tablet PO 400 mg DAILY@0800 [facility] Administration Carvedilol 25 mg 03/25/25 09:00 03/27/25 09:18 Carvedilol 25 Mg Tablet PO 25 mg DAILY [facility] Administration Clonazepam 0.5 mg 03/25/25 09:00 03/27/25 09:18 Clonazepam (*Crx) 0.5 Mg Tablet PO 0.5 mg TID [facility] Administration Donepezil HCl 10 mg 03/25/25 21:00 03/26/25 20:09 Donepezil Hcl 10 Mg Tablet PO 10 mg HS [facility] Administration Enoxaparin Sodium 40 mg 03/26/25 09:00 03/27/25 09:17 Enoxaparin 40 Mg/0.4 Ml Syringe SUB-Q 40 mg DAILY [facility] Administration Famotidine 20 mg 03/25/25 09:00 03/27/25 09:18 Famotidine 20 Mg Tablet PO 20 mg Q12HR [facility] Administration Guaifenesin 600 mg 03/26/25 10:45 03/27/25 09:19 Guaifenesin 12 Hr 600 Mg Tabcr PO 04/02/25 10:44 600 mg Q12HR [facility] Administration Ceftriaxone Sodium 1 gm/ 50 mls @ 100 mls/hr 03/26/25 01:30 03/27/25 01:48 Sodium Chloride IVPB Infused Q24H [facility] Infusion Doxycycline Hyclate 100 mg/ 100 mls @ 100 mls/hr 03/25/25 14:00 03/27/25 02:18 Sodium Chloride IVPB Infused Q12H [facility] Infusion Levothyroxine Sodium 150 mcg 03/25/25 06:30 03/27/25 06:19 Levothyroxine Sodium 150 Mcg Tablet PO 150 mcg DAILY@0630 [facility] Administration Loratadine 5 mg 03/25/25 09:00 03/27/25 09:19 Loratadine 5 Mg Tablet PO 5 mg QAM [facility] Administration Losartan Potassium 50 mg 03/25/25 09:00 03/27/25 09:18 Losartan Potassium 50 Mg Tablet PO 50 mg DAILY [facility] Administration Perflutren Lipid Microsphere 0 ml 03/25/25 07:09 Perflutren Lipid Microspheres 1.5 Ml Vial Diluted To 10 Ml Total Volume IV PUSH 03/28/25 07:09 ONCE PRN adequate visualization Protocol Prochlorperazine Edisylate 10 mg 03/26/25 13:02 03/27/25 09:17 Prochlorperazine Edisylate 10 Mg/2 Ml Vial IV PUSH 10 mg Q6H PRN Administration Nausea And Vomiting Rosuvastatin Calcium 40 mg 03/25/25 09:00 03/27/25 09:18 Rosuvastatin 20 Mg Tablet PO 40 mg DAILY [facility] Administration Spironolactone 25 mg 03/25/25 09:00 03/27/25 09:19 Spironolactone 25 Mg Tablet PO 25 mg DAILY [facility] Administration Trazodone HCl 150 mg 03/25/25 21:00 03/26/25 20:08 Trazodone Hcl 50 Mg Tablet PO 150 mg HS [facility] Administration Venlafaxine HCl 37.5 mg 03/25/25 08:00 03/27/25 09:18 Venlafaxine Hcl Xr 37.5 Mg Cap PO 37.5 mg DAILY@0800 [facility] Administration Warfarin Sodium 3 mg 03/25/25 17:00 Warfarin (*Pbkc) 3 Mg Tablet PO DAILY@1700 [facility] Radiology Results: ITS Impressions Chest X-Ray 03/24/25 22:35 IMPRESSION: Patchy right upper lung groundglass opacities and mild diffuse reticulonodular opacities, may represent infection overlying chronic respiratory bronchiolitis or senescent/interstitial change. Head CT 03/25/25 14:37 IMPRESSION: No evidence for acute intracranial hemorrhage or calvarial fracture. Labs Labs: Laboratory Results - last 24 hr 03/26/25 03/27/25 09:57 05:21 WBC 6.3 RBC 3.49 L Hgb 11.1 L Hct 36.0 L MCV 103.2 H MCH 31.8 MCHC 30.8 L RDW 14.0 Plt Count 203 MPV 9.6 Immature Gran % (Auto) 0.2 Neut % (Auto) 54.4 Lymph % (Auto) 28.7 [place] % (Auto) 11.9 H Eos % (Auto) 4.3 Baso % (Auto) 0.5 Lymph # (Auto) 1.81 [place] # (Auto) 0.8 H Eos # (Auto) 0.3 Baso # (Auto) 0.0 Abs Immat Gran (auto) 0.01 Absolute Neuts (auto) 3.4 Absolute Nucleated RBC 0.000 Nucleated RBC % 0.0 PT 27.9 H INR 2.7 Sodium 137 Potassium 3.6 Chloride 103 Carbon Dioxide 30 Anion Gap 4 BUN 17 Creatinine 1.12 H Estim Creat Clear Calc 37 Estimated GFR 47 L Glucose 85 POC Capillary Glucose 130 H Calcium 8.6 Magnesium 2.2 Total Bilirubin 0.2 AST 25 ALT 13 Alkaline Phosphatase 49 NT-Pro-B Natriuret Pep 1390 H Total Protein 6.8 Albumin 3.5
[2025-03-27] MEDS: WARFARIN (*PBKC) 3 MG TABLET PO (17:53)
[2025-03-27] MEDS: DONEPEZIL HCL 10 MG TABLET PO (20:32)
[2025-03-28] VITALS (17 sets, daily range): BP systolic 120–169; BP diastolic 54–79; PULSE 65–96; RESP 16–20; TEMP 36.4–37.2; O2SAT 92–98
[2025-03-28] MEDS: DOXYCYCLINE IV 100 MG in SODIUM CHLORIDE 0.9% IV 100 ML IVPB (00:29)
[2025-03-28] MEDS: cefTRIAXone 1 GM in SODIUM CHLORIDE 0.9% IV 50 ML 100 ML IVPB ×2 (00:31→00:41)
[2025-03-28] MEDS: PROCHLORPERAZINE EDISYLATE 10 MG/2 ML VIAL IV PUSH ×3 (02:32→17:11)
[2025-03-28 05:00] LABS: Hematocrit 33.7 % (37.0-47.0); Hemoglobin 10.5 g/dL (12.0-15.0); Immature Granulocyte Percent A 0.3 % (0-0.5); Lymphocytes Absolute Auto 1.55 K/mm3 (0.9-3.2); Mean Corpuscular HGB Conc 31.2 g/dl (32-36); Mean Corpuscular Hemoglobin 31.8 pg (26-34); Mean Corpuscular Volume 102.1 fl (80-100); Nucleated Red Blood Cells Absolute Auto 0.000 K/mm3 (0.0-0.012); Nucleated Red Blood Cells Perc 0.0 % (0.0-0.2); Platelet Count Result 212 k/mm3 (150-375); Red Blood Count 3.30 M/mm3 (4.2-5.4); White Blood Count 6.7 K/mm3 (4.5-10.0)
[2025-03-28 05:16] LABS: INR 2.3; Prothrombin Time 24.2 Seconds (11.1-14.7)
[2025-03-28 05:25] LABS: Alanine Aminotransferase 13 U/L (6-35); Albumin Level 3.3 g/dL (3.5-5.1); Alkaline Phosphatase 52 U/L (38-126); Anion Gap 5 mmol/L (4-12); Aspartate Amino Transferase 25 U/L (14-36); Bilirubin,Total 0.4 mg/dL (0.2-1.3); Blood Urea Nitrogen 15 mg/dL (7-17); Calcium 8.6 mg/dL (8.4-10.2); Carbon Dioxide 28 mmol/L (22-30); Chloride 107 mmol/L (98-107); Estimated CRCL calculation 36 ml/min; Estimated Glomerular Filt Rate 45; Glucose 87 mg/dL (65-110); Magnesium 2.1 mg/dL (1.6-2.3); Potassium 3.6 mmol/L (3.4-5.0); Sodium 140 mmol/L (137-145); Total Protein 6.3 g/dL (6.3-8.2)
[2025-03-28 05:48] LABS: NT Pro B Type Natriuretic Pept 3810 pg/mL (19.9-100)
--- NOTE | 2025-03-28 10:00 | P.PNIM_ITS ---
Progress Note: A&P Assessment and Plan (1) Pneumonia: Code(s): J18.9 - Pneumonia, unspecified organism Status: Acute Assessment and Plan: * CXR: Patchy right upper lung groundglass opacities and mild diffuse reticulonodular opacities, may represent infection overlying chronic respiratory bronchiolitis or senescent/interstitial change. * started on CAP tx: ceftriaxone and doxycycline * Viral PCR: negative for Flu/COVID/RSV * legionella, mycoplasma and pneumococcal - pending * Supplemental O2 requirement 2 liters with Sa02 95%. * supportive treatment * Guaifenesin 600 mg PO q 12. PT/OT. Add DuoNeb check procalcitonin (2) CHF exacerbation: Qualifiers: Heart failure type: unspecified Qualified Code(s): I50.9 - Heart failure, unspecified Code(s): I50.9 - Heart failure, unspecified Status: Acute Assessment and Plan: * Patient reports that she has not been taking her at-home CHF medication * Symptoms: SOB * Current medications: Furosemide 40mg which is on hold. Due to orthostatic hypotension * BNP: 5070>2790. * EKG: Electronic ventricular pacemaker * Chest XR: Patchy right upper lung groundglass opacities and mild diffuse reticulonodular opacities, may represent infection overlying chronic respiratory bronchiolitis or senescent/interstitial change. * Echo: EF 45-50% mild global hypokinesis with more pronounced hypokinesis of the basal villa grade 1 diastolic dysfunction. Moderate mitral valve regurgitation mild tricuspid valve regurgitation. Previous echo from 2020 reviewed which showed ejection fraction 20-25%. (3) Acute hypoxemic respiratory failure: Code(s): J96.01 - Acute respiratory failure with hypoxia Status: Acute Assessment and Plan: * 02@2L nasal cannula with Sa02 95%. * Suspected cause: CHF exacerbation, Infectious? * ABG: PH 7.0, CO2 40 a, PO2 557, O2 saturation 89.3%, oxyhemoglobin 87.9 % * EKG: Electronic ventricular paced * Chest XR: Patchy right upper lung groundglass opacities and mild diffuse reticulonodular opacities, may represent infection overlying chronic respiratory bronchiolitis or senescent/interstitial change. * Likely secondary to underlying pneumonia and CHF exacerbation due to medical noncompliance (4) Chronic kidney disease: Code(s): N18.9 - Chronic kidney disease, unspecified Status: Acute Assessment and Plan: * Creatinine: 1.36, GFR: 38, BUN:18 (Baseline Cr appears to be around 1.1-1.2) * Trend renal function * Trend electrolytes, correct as needed (5) Dysphagia: Code(s): R13.10 - Dysphagia, unspecified Status: Acute Assessment and Plan: * Speech eval * Reports history of allergies, states that she took a clear to last night and does not have any presenting symptoms at this time * Oropharynx clear, no evidence angioedema * Claritin 5 mg p.o. daily (6) Hypertension: Qualifiers: Hypertension type: primary hypertension Qualified Code(s): I10 - Essential (primary) hypertension Code(s): I10 - Essential (primary) hypertension Status: Chronic Assessment and Plan: * Carvedilol 25 mg PO daily, Losartan 50 mg PO daily, and Spironolactone 25 mg PO daily. (7) Hyperlipidemia: Code(s): E78.5 - Hyperlipidemia, unspecified Status: Chronic Assessment and Plan: * Rosuvastatin 40 mg PO daily. (8) Hypothyroidism: Qualifiers: Hypothyroidism type: acquired Qualified Code(s): E03.9 - Hypothyroidism, unspecified Code(s): E03.9 - Hypothyroidism, unspecified Status: Chronic Assessment and Plan: * Levothyroxine 150 mcg PO daily. Plan DVT prophylaxis on warfarin. Subjective Date/time seen: 03/28/25 10:00 Interval history: Patient reported to be orthostatic positive. This still feels dizzy on and off. Has been spitting up phlegm Review of Systems Review of Systems: All systems reviewed & are unremarkable except as noted in HPI and below Exam Narrative: Gen - well appearing female in no acute respiratory distress who is nontoxic- appearing lying semi recumbent in bed HEENT - normocephalic. Atraumatic. Pupils equal round and reactive. Extraocular motions intact. Neck - neck was supple. No dominant adenopathy, thyromegaly or masses. Chest - lungs are clear to auscultation bilaterally. No wheezes or crackles. CV - heart was regular rate and rhythm. S1-S2. No murmurs gallops or rubs. Abd - abdomen was soft. Nontender. Nondistended. Positive bowel sounds. No organomegaly or masses. Ext - no clubbing, cyanosis or edema. 2+ DP pulses bilaterally. Neuro - patient is alert and oriented x4. Strength is 5/5 in both upper and lower extremities. Cranial nerves 2-12 are intact. Speech is clear. Psych - normal mood and affect. Patient is pleasant and cooperative. Skin - warm and dry. No rashes noted. Objective Data Vital Signs Vital Signs: Vital Signs - 24 hr 03/27/25 10:28 03/27/25 10:32 03/27/25 10:37 Temperature 97.2 F L Pulse Rate 63 63 67 Respiratory Rate 18 Blood Pressure 122/58 L 116/62 99/34 L Pulse Oximetry 93 96 94 Oxygen Delivery 03/27/25 12:00 03/27/25 13:10 03/27/25 15:23 Temperature 97.6 F Pulse Rate 60 63 Respiratory Rate 16 Blood Pressure 150/65 H Pulse Oximetry 98 Oxygen Delivery Room Air 03/27/25 20:00 03/27/25 20:00 03/27/25 20:00 Temperature Pulse Rate 63 60 Respiratory Rate 16 Blood Pressure Pulse Oximetry 98 98 Oxygen Delivery Room Air Room Air 03/27/25 21:07 03/28/25 00:00 03/28/25 01:56 Temperature 97.6 F 98.0 F Pulse Rate 73 75 75 Respiratory Rate 14 16 Blood Pressure 133/58 L 135/54 L Pulse Oximetry 94 94 Oxygen Delivery 03/28/25 04:00 03/28/25 07:00 Temperature 97.6 F Pulse Rate 65 72 Respiratory Rate 16 Blood Pressure 132/60 Pulse Oximetry 98 Oxygen Delivery Intake/Output Intake/Output: Intake & Output 03/25/25 03/26/25 03/27/25 03/28/25 23:59 23:59 23:59 23:59 Intake Total 2370 1150 1460 466.7 Output Total 622 857 8429 Balance 1430 550 -41 466.7 Meds/Results Medications: Active Medications Generic Name Dose Route Start Last Admin Trade Name Freq PRN Reason Stop Dose Admin Acetaminophen 650 mg 03/25/25 04:48 03/27/25 20:32 Acetaminophen 325 Mg Tablet PO 650 mg Q4H PRN Administration Mild Pain (1-3) fever or sleep Amiodarone HCl 400 mg 03/25/25 08:00 03/27/25 09:18 Amiodarone Hcl 200 Mg Tablet PO 400 mg DAILY@0800 [facility] Administration Carvedilol 25 mg 03/25/25 09:00 03/27/25 09:18 Carvedilol 25 Mg Tablet PO 25 mg DAILY [facility] Administration Clonazepam 0.5 mg 03/25/25 09:00 03/27/25 17:53 Clonazepam (*Crx) 0.5 Mg Tablet PO 0.5 mg TID [facility] Administration Donepezil HCl 10 mg 03/25/25 21:00 03/27/25 20:32 Donepezil Hcl 10 Mg Tablet PO 10 mg HS [facility] Administration Doxycycline Hyclate 100 mg 03/28/25 11:00 Doxycycline Hyclate 100 Mg Tablet PO BID@1000,2200 [facility] Famotidine 20 mg 03/25/25 09:00 03/27/25 20:32 Famotidine 20 Mg Tablet PO 20 mg Q12HR [facility] Administration Guaifenesin 600 mg 03/26/25 10:45 03/27/25 20:32 Guaifenesin 12 Hr 600 Mg Tabcr PO 04/02/25 10:44 600 mg Q12HR [facility] Administration Ceftriaxone Sodium 1 gm/ 50 mls @ 100 mls/hr 03/26/25 01:30 03/28/25 01:11 Sodium Chloride IVPB Infused Q24H [facility] Infusion Levothyroxine Sodium 150 mcg 03/25/25 06:30 03/28/25 06:47 Levothyroxine Sodium 150 Mcg Tablet PO Not Given DAILY@0630 [facility] Loratadine 5 mg 03/25/25 09:00 03/27/25 09:19 Loratadine 5 Mg Tablet PO 5 mg QAM [facility] Administration Losartan Potassium 50 mg 03/25/25 09:00 03/27/25 09:18 Losartan Potassium 50 Mg Tablet PO 50 mg DAILY [facility] Administration Prochlorperazine Edisylate 10 mg 03/26/25 13:02 03/28/25 09:34 Prochlorperazine Edisylate 10 Mg/2 Ml Vial IV PUSH 10 mg Q6H PRN Administration Nausea And Vomiting Rosuvastatin Calcium 40 mg 03/25/25 09:00 03/27/25 09:18 Rosuvastatin 20 Mg Tablet PO 40 mg DAILY [facility] Administration Spironolactone 25 mg 03/25/25 09:00 03/28/25 09:08 Spironolactone 25 Mg Tablet PO Not Given DAILY [facility] Trazodone HCl 150 mg 03/25/25 21:00 03/27/25 20:32 Trazodone Hcl 50 Mg Tablet PO 150 mg HS [facility] Administration Venlafaxine HCl 37.5 mg 03/25/25 08:00 03/27/25 09:18 Venlafaxine Hcl Xr 37.5 Mg Cap PO 37.5 mg DAILY@0800 [facility] Administration Warfarin Sodium 3 mg 03/25/25 17:00 03/27/25 17:53 Warfarin (*Pbkc) 3 Mg Tablet PO 3 mg DAILY@1700 [facility] Administration Radiology Results: ITS Impressions Chest X-Ray 03/24/25 22:35 IMPRESSION: Patchy right upper lung groundglass opacities and mild diffuse reticulonodular opacities, may represent infection overlying chronic respiratory bronchiolitis or senescent/interstitial change. Head CT 03/25/25 14:37 IMPRESSION: No evidence for acute intracranial hemorrhage or calvarial fracture. Labs Labs: Laboratory Results - last 24 hr 03/28/25 04:44 WBC 6.7 RBC 3.30 L Hgb 10.5 L Hct 33.7 L MCV 102.1 H MCH 31.8 MCHC 31.2 L RDW 14.1 Plt Count 212 MPV 9.2 Immature Gran % (Auto) 0.3 Neut % (Auto) 60.8 Lymph % (Auto) 23.2 [place] % (Auto) 11.7 H Eos % (Auto) 3.4 Baso % (Auto) 0.6 Lymph # (Auto) 1.55 [place] # (Auto) 0.8 H Eos # (Auto) 0.2 Baso # (Auto) 0.0 Abs Immat Gran (auto) 0.02 Absolute Neuts (auto) 4.1 Absolute Nucleated RBC 0.000 Nucleated RBC % 0.0 PT 24.2 H INR 2.3 Sodium 140 Potassium 3.6 Chloride 107 Carbon Dioxide 28 Anion Gap 5 BUN 15 Creatinine 1.16 H Estim Creat Clear Calc 36 Estimated GFR 45 L Glucose 87 Calcium 8.6 Magnesium 2.1 Total Bilirubin 0.4 AST 25 ALT 13 Alkaline Phosphatase 52 NT-Pro-B Natriuret Pep 3810 H Total Protein 6.3 Albumin 3.3 L
[2025-03-28] MEDS: LOSARTAN POTASSIUM 50 MG TABLET PO (10:12)
[2025-03-28] MEDS: LORATADINE 5 MG TABLET PO (10:12)
[2025-03-28] MEDS: FAMOTIDINE 20 MG TABLET PO ×2 (10:12→20:40)
[2025-03-28] MEDS: DOXYCYCLINE HYCLATE 100 MG TABLET PO ×2 (10:12→20:40)
[2025-03-28] MEDS: ROSUVASTATIN 20 MG TABLET 40 MG PO (10:13)
[2025-03-28] MEDS: guaiFENesin 12 HR 600 MG TABCR PO ×2 (10:13→20:39)
[2025-03-28] MEDS: clonazePAM (*CRX) 0.5 MG TABLET PO ×3 (10:13→20:42)
[2025-03-28] MEDS: AMIODARONE HCL 200 MG TABLET 400 MG PO (10:13)
[2025-03-28] MEDS: VENLAFAXINE HCL XR 37.5 MG CAP PO (10:13)
[2025-03-28] MEDS: IPRATROPIUM 0.5 MG/ALBUTEROL SULFATE 2.5 MG AMPUL.NEB 3 ML INHALATION ×2 (15:30→21:26)
[2025-03-28 16:18] LABS: Procalcitonin 0.1 ng/mL
[2025-03-28] MEDS: WARFARIN (*PBKC) 3 MG TABLET PO (17:11)
[2025-03-28] MEDS: ONDANSETRON INJ 4 MG/2 ML VIAL IV PUSH (20:36)
[2025-03-28] MEDS: DONEPEZIL HCL 10 MG TABLET PO (20:39)
[2025-03-29] VITALS (19 sets, daily range): BP systolic 124–168; BP diastolic 47–92; PULSE 60–102; RESP 14–20; TEMP 36.7–37.1; O2SAT 92–96
[2025-03-29] MEDS: IPRATROPIUM 0.5 MG/ALBUTEROL SULFATE 2.5 MG AMPUL.NEB 3 ML INHALATION ×4 (02:30→20:23)
[2025-03-29 05:30] LABS: Hematocrit 37.0 % (37.0-47.0); Hemoglobin 11.3 g/dL (12.0-15.0); Immature Granulocyte Percent A 0.2 % (0-0.5); Lymphocytes Absolute Auto 1.72 K/mm3 (0.9-3.2); Mean Corpuscular HGB Conc 30.5 g/dl (32-36); Mean Corpuscular Hemoglobin 31.4 pg (26-34); Mean Corpuscular Volume 102.8 fl (80-100); Nucleated Red Blood Cells Absolute Auto 0.000 K/mm3 (0.0-0.012); Nucleated Red Blood Cells Perc 0.0 % (0.0-0.2); Platelet Count Result 219 k/mm3 (150-375); Red Blood Count 3.60 M/mm3 (4.2-5.4); White Blood Count 6.6 K/mm3 (4.5-10.0)
[2025-03-29 05:40] LABS: INR 2.3; Prothrombin Time 24.8 Seconds (11.1-14.7)
[2025-03-29 05:50] LABS: Alanine Aminotransferase 15 U/L (6-35); Albumin Level 3.5 g/dL (3.5-5.1); Alkaline Phosphatase 54 U/L (38-126); Anion Gap 2 mmol/L (4-12); Aspartate Amino Transferase 26 U/L (14-36); Bilirubin,Total 0.4 mg/dL (0.2-1.3); Blood Urea Nitrogen 15 mg/dL (7-17); Calcium 8.8 mg/dL (8.4-10.2); Carbon Dioxide 28 mmol/L (22-30); Chloride 104 mmol/L (98-107); Estimated CRCL calculation 37 ml/min; Estimated Glomerular Filt Rate 47; Glucose 92 mg/dL (65-110); Magnesium 2.2 mg/dL (1.6-2.3); Potassium 3.9 mmol/L (3.4-5.0); Sodium 134 mmol/L (137-145); Total Protein 6.7 g/dL (6.3-8.2)
[2025-03-29 05:54] LABS: NT Pro B Type Natriuretic Pept 5980 pg/mL (19.9-100)
[2025-03-29] MEDS: PROCHLORPERAZINE EDISYLATE 10 MG/2 ML VIAL IV PUSH ×2 (08:04→18:56)
[2025-03-29] MEDS: FAMOTIDINE 20 MG TABLET PO ×2 (08:11→21:35)
[2025-03-29] MEDS: VENLAFAXINE HCL XR 37.5 MG CAP PO (08:11)
[2025-03-29] MEDS: AMIODARONE HCL 200 MG TABLET 400 MG PO (08:11)
[2025-03-29] MEDS: LOSARTAN POTASSIUM 50 MG TABLET PO (08:12)
[2025-03-29] MEDS: LORATADINE 5 MG TABLET PO (08:12)
[2025-03-29] MEDS: ROSUVASTATIN 20 MG TABLET 40 MG PO (08:12)
[2025-03-29] MEDS: clonazePAM (*CRX) 0.5 MG TABLET PO ×3 (08:12→21:37)
[2025-03-29] MEDS: guaiFENesin 12 HR 600 MG TABCR PO ×2 (08:12→21:34)
[2025-03-29] MEDS: DOXYCYCLINE HYCLATE 100 MG TABLET PO ×2 (10:28→21:35)
[2025-03-29] MEDS: ACETAMINOPHEN 325 MG TABLET 650 MG PO (11:02)
--- NOTE | 2025-03-29 12:11 | P.PNIM_ITS ---
Progress Note: A&P Assessment and Plan (1) Pneumonia: Code(s): J18.9 - Pneumonia, unspecified organism Status: Acute Assessment and Plan: * CXR: Patchy right upper lung groundglass opacities and mild diffuse reticulonodular opacities, may represent infection overlying chronic respiratory bronchiolitis or senescent/interstitial change. * started on CAP tx: ceftriaxone and doxycycline * Viral PCR: negative for Flu/COVID/RSV * legionella, mycoplasma and pneumococcal - pending * Supplemental O2 requirement 2 liters with Sa02 95%. * supportive treatment * Guaifenesin 600 mg PO q 12. PT/OT. added duoneb procalcitonin 0.1 (2) CHF exacerbation: Qualifiers: Heart failure type: unspecified Qualified Code(s): I50.9 - Heart failure, unspecified Code(s): I50.9 - Heart failure, unspecified Status: Acute Assessment and Plan: * Patient reports that she has not been taking her at-home CHF medication * Symptoms: SOB * Current medications: Furosemide 40mg which is on hold. Due to orthostatic hypotension * BNP: 5070>2790. * EKG: Electronic ventricular pacemaker * Chest XR: Patchy right upper lung groundglass opacities and mild diffuse reticulonodular opacities, may represent infection overlying chronic respiratory bronchiolitis or senescent/interstitial change. * Echo: EF 45-50% mild global hypokinesis with more pronounced hypokinesis of the basal villa grade 1 diastolic dysfunction. Moderate mitral valve regurgitation mild tricuspid valve regurgitation. Previous echo from 2020 reviewed which showed ejection fraction 20-25%. * bnp worsening. wll add back spironolactone and eventually lasix (3) Acute hypoxemic respiratory failure: Code(s): J96.01 - Acute respiratory failure with hypoxia Status: Acute Assessment and Plan: * 02@2L nasal cannula with Sa02 95%. * Suspected cause: CHF exacerbation, Infectious? * ABG: PH 7.0, CO2 40 a, PO2 557, O2 saturation 89.3%, oxyhemoglobin 87.9 % * EKG: Electronic ventricular paced * Chest XR: Patchy right upper lung groundglass opacities and mild diffuse reticulonodular opacities, may represent infection overlying chronic respiratory bronchiolitis or senescent/interstitial change. * Likely secondary to underlying pneumonia and CHF exacerbation due to medical noncompliance (4) Chronic kidney disease: Code(s): N18.9 - Chronic kidney disease, unspecified Status: Acute Assessment and Plan: * Creatinine: 1.36, GFR: 38, BUN:18 (Baseline Cr appears to be around 1.1-1.2) * Trend renal function * Trend electrolytes, correct as needed (5) Dysphagia: Code(s): R13.10 - Dysphagia, unspecified Status: Acute Assessment and Plan: * Speech eval * Reports history of allergies, states that she took a clear to last night and does not have any presenting symptoms at this time * Oropharynx clear, no evidence angioedema * Claritin 5 mg p.o. daily (6) Hypertension: Qualifiers: Hypertension type: primary hypertension Qualified Code(s): I10 - Essential (primary) hypertension Code(s): I10 - Essential (primary) hypertension Status: Chronic Assessment and Plan: * Carvedilol 25 mg PO daily, Losartan 50 mg PO daily, and Spironolactone 25 mg PO daily. (7) Hyperlipidemia: Code(s): E78.5 - Hyperlipidemia, unspecified Status: Chronic Assessment and Plan: * Rosuvastatin 40 mg PO daily. (8) Hypothyroidism: Qualifiers: Hypothyroidism type: acquired Qualified Code(s): E03.9 - Hypothyroidism, unspecified Code(s): E03.9 - Hypothyroidism, unspecified Status: Chronic Assessment and Plan: * Levothyroxine 150 mcg PO daily. Plan DVT prophylaxis on warfarin. Subjective Date/time seen: 03/29/25 12:11 Interval history: feeling better. no nasuea, vomiting. cough is imrpoving. Review of Systems Review of Systems: All systems reviewed & are unremarkable except as noted in HPI and below Exam Narrative: Gen - well appearing female in no acute respiratory distress who is nontoxic- appearing lying semi recumbent in bed HEENT - normocephalic. Atraumatic. Pupils equal round and reactive. Extraocular motions intact. Neck - neck was supple. No dominant adenopathy, thyromegaly or masses. Chest - lungs are clear to auscultation bilaterally. No wheezes or crackles. CV - heart was regular rate and rhythm. S1-S2. No murmurs gallops or rubs. Abd - abdomen was soft. Nontender. Nondistended. Positive bowel sounds. No organomegaly or masses. Ext - no clubbing, cyanosis or edema. 2+ DP pulses bilaterally. Neuro - patient is alert and oriented x4. Strength is 5/5 in both upper and lower extremities. Cranial nerves 2-12 are intact. Speech is clear. Psych - normal mood and affect. Patient is pleasant and cooperative. Skin - warm and dry. No rashes noted. Objective Data Vital Signs Vital Signs: Vital Signs - 24 hr 03/28/25 13:50 03/28/25 13:50 03/28/25 13:50 Temperature Pulse Rate Respiratory Rate Blood Pressure 161/70 H 146/77 H 120/66 Pulse Oximetry Oxygen Delivery Fraction of Inspired Oxygen 03/28/25 15:30 03/28/25 15:50 03/28/25 16:00 Temperature Pulse Rate 75 78 78 Respiratory Rate 20 20 Blood Pressure Pulse Oximetry Oxygen Delivery Fraction of Inspired Oxygen 03/28/25 16:00 03/28/25 20:00 03/28/25 20:00 Temperature Pulse Rate 65 74 Respiratory Rate Blood Pressure 169/68 H 156/74 H Pulse Oximetry 97 Oxygen Delivery Fraction of Inspired Oxygen 03/28/25 20:00 03/28/25 20:00 03/28/25 21:26 Temperature 99.0 F Pulse Rate 79 71 Respiratory Rate 20 18 Blood Pressure 158/70 H 169/78 H Pulse Oximetry 94 Oxygen Delivery Fraction of Inspired Oxygen 03/28/25 21:28 03/28/25 21:32 03/29/25 00:00 Temperature Pulse Rate 71 72 64 Respiratory Rate 18 Blood Pressure Pulse Oximetry 93 Oxygen Delivery Room Air Fraction of Inspired Oxygen 03/29/25 00:00 03/29/25 02:30 03/29/25 02:37 Temperature 98.7 F Pulse Rate 61 69 74 Respiratory Rate 20 18 18 Blood Pressure 144/50 H Pulse Oximetry 94 Oxygen Delivery Fraction of Inspired Oxygen 03/29/25 04:00 03/29/25 04:00 03/29/25 08:00 Temperature 98.8 F Pulse Rate 62 62 88 Respiratory Rate 16 Blood Pressure 129/47 L 168/72 H Pulse Oximetry 92 92 Oxygen Delivery Fraction of Inspired Oxygen 03/29/25 08:05 03/29/25 08:09 03/29/25 08:10 Temperature 98.6 F Pulse Rate 96 91 102 H Respiratory Rate 16 Blood Pressure 167/82 H 161/92 H 134/61 Pulse Oximetry 93 94 94 Oxygen Delivery Fraction of Inspired Oxygen 03/29/25 08:11 03/29/25 08:11 03/29/25 08:12 Temperature Pulse Rate 91 91 64 Respiratory Rate 18 Blood Pressure Pulse Oximetry 96 Oxygen Delivery Room Air Fraction of Inspired Oxygen 03/29/25 08:12 03/29/25 09:30 03/29/25 09:34 Temperature Pulse Rate 64 64 64 Respiratory Rate 18 18 Blood Pressure Pulse Oximetry 96 Oxygen Delivery Room Air Fraction of Inspired Oxygen Intake/Output Intake/Output: Intake & Output 03/26/25 03/27/25 03/28/25 03/29/25 23:59 23:59 23:59 23:59 Intake Total 1150 1460 1246.7 150 Output Total 600 1501 200 Balance 550 -41 1046.7 150 Meds/Results Medications: Active Medications Generic Name Dose Route Start Last Admin Trade Name Freq PRN Reason Stop Dose Admin Acetaminophen 650 mg 03/25/25 04:48 03/29/25 11:02 Acetaminophen 325 Mg Tablet PO 650 mg Q4H PRN Administration Mild Pain (1-3) fever or sleep Albuterol/Ipratropium 3 ml 03/28/25 14:00 03/29/25 09:30 Ipratropium 0.5 Mg/Albuterol Sulfate 2.5 Mg Ampul.Neb 3 Ml INHALATION 3 ml Q6HRT STAN Administration Amiodarone HCl 400 mg 03/25/25 08:00 03/29/25 08:11 Amiodarone Hcl 200 Mg Tablet PO 400 mg DAILY@0800 STAN Administration Carvedilol 25 mg 03/25/25 09:00 03/29/25 08:11 Carvedilol 25 Mg Tablet PO 25 mg DAILY STAN Administration Clonazepam 0.5 mg 03/25/25 09:00 03/29/25 08:12 Clonazepam (*Crx) 0.5 Mg Tablet PO 0.5 mg TID STAN Administration Donepezil HCl 10 mg 03/25/25 21:00 03/28/25 20:39 Donepezil Hcl 10 Mg Tablet PO 10 mg HS STAN Administration Doxycycline Hyclate 100 mg 03/28/25 11:00 03/29/25 10:28 Doxycycline Hyclate 100 Mg Tablet PO 100 mg BID@1000,2200 STAN Administration Famotidine 20 mg 03/25/25 09:00 03/29/25 08:11 Famotidine 20 Mg Tablet PO 20 mg Q12HR STAN Administration Guaifenesin 600 mg 03/26/25 10:45 03/29/25 08:12 Guaifenesin 12 Hr 600 Mg Tabcr PO 04/02/25 10:44 600 mg Q12HR STAN Administration Ceftriaxone Sodium 1 gm/ 50 mls @ 100 mls/hr 03/26/25 01:30 03/28/25 01:11 Sodium Chloride IVPB Infused Q24H STAN Infusion Levothyroxine Sodium 150 mcg 03/25/25 06:30 03/29/25 05:27 Levothyroxine Sodium 150 Mcg Tablet PO Not Given DAILY@0630 [facility] Loratadine 5 mg 03/25/25 09:00 03/29/25 08:12 Loratadine 5 Mg Tablet PO 5 mg QAM [facility] Administration Losartan Potassium 50 mg 03/25/25 09:00 03/29/25 08:12 Losartan Potassium 50 Mg Tablet PO 50 mg DAILY [facility] Administration Prochlorperazine Edisylate 10 mg 03/26/25 13:02 03/29/25 08:04 Prochlorperazine Edisylate 10 Mg/2 Ml Vial IV PUSH 10 mg Q6H PRN Administration Nausea And Vomiting Rosuvastatin Calcium 40 mg 03/25/25 09:00 03/29/25 08:12 Rosuvastatin 20 Mg Tablet PO 40 mg DAILY [facility] Administration Spironolactone 25 mg 03/25/25 09:00 03/28/25 09:08 Spironolactone 25 Mg Tablet PO Not Given DAILY [facility] Trazodone HCl 150 mg 03/25/25 21:00 03/28/25 20:39 Trazodone Hcl 50 Mg Tablet PO 150 mg HS STAN Administration Venlafaxine HCl 37.5 mg 03/25/25 08:00 03/29/25 08:11 Venlafaxine Hcl Xr 37.5 Mg Cap PO 37.5 mg DAILY@0800 [facility] Administration Warfarin Sodium 3 mg 03/25/25 17:00 03/28/25 17:11 Warfarin (*Pbkc) 3 Mg Tablet PO 3 mg DAILY@1700 [facility] Administration Radiology Results: ITS Impressions Head CT 03/25/25 14:37 IMPRESSION: No evidence for acute intracranial hemorrhage or calvarial fracture. Chest X-Ray 03/28/25 15:01 IMPRESSION: Mild pulmonary vascular congestion, without focal infiltrate or effusion. Labs Labs: Laboratory Results - last 24 hr 03/28/25 03/29/25 04:44 05:08 WBC 6.6 RBC 3.60 L Hgb 11.3 L Hct 37.0 MCV 102.8 H MCH 31.4 MCHC 30.5 L RDW 14.1 Plt Count 219 MPV 9.2 Immature Gran % (Auto) 0.2 Neut % (Auto) 57.6 Lymph % (Auto) 26.2 [place] % (Auto) 12.3 H Eos % (Auto) 2.9 Baso % (Auto) 0.8 Lymph # (Auto) 1.72 [place] # (Auto) 0.8 H Eos # (Auto) 0.2 Baso # (Auto) 0.1 Abs Immat Gran (auto) 0.01 Absolute Neuts (auto) 3.8 Absolute Nucleated RBC 0.000 Nucleated RBC % 0.0 PT 24.8 H INR 2.3 Sodium 134 L Potassium 3.9 Chloride 104 Carbon Dioxide 28 Anion Gap 2 L BUN 15 Creatinine 1.12 H Estim Creat Clear Calc 37 Estimated GFR 47 L Glucose 92 Calcium 8.8 Magnesium 2.2 Total Bilirubin 0.4 AST 26 ALT 15 Alkaline Phosphatase 54 NT-Pro-B Natriuret Pep 5980 H Total Protein 6.7 Albumin 3.5 Procalcitonin 0.1
[2025-03-29] MEDS: WARFARIN (*PBKC) 3 MG TABLET PO (17:07)
[2025-03-29] MEDS: DONEPEZIL HCL 10 MG TABLET PO (21:35)
[2025-03-30] VITALS (20 sets, daily range): BP systolic 129–164; BP diastolic 47–76; PULSE 60–87; RESP 14–20; TEMP 36.4–36.8; O2SAT 90–96
[2025-03-30] MEDS: cefTRIAXone 1 GM in SODIUM CHLORIDE 0.9% IV 50 ML 100 ML IVPB (00:52)
[2025-03-30] MEDS: IPRATROPIUM 0.5 MG/ALBUTEROL SULFATE 2.5 MG AMPUL.NEB 3 ML INHALATION ×4 (01:31→21:15)
[2025-03-30 05:18] LABS: Hematocrit 38.8 % (37.0-47.0); Hemoglobin 11.5 g/dL (12.0-15.0); Immature Granulocyte Percent A 0.1 % (0-0.5); Lymphocytes Absolute Auto 2.02 K/mm3 (0.9-3.2); Mean Corpuscular HGB Conc 29.6 g/dl (32-36); Mean Corpuscular Hemoglobin 32.2 pg (26-34); Mean Corpuscular Volume 108.7 fl (80-100); Nucleated Red Blood Cells Absolute Auto 0.000 K/mm3 (0.0-0.012); Nucleated Red Blood Cells Perc 0.0 % (0.0-0.2); Platelet Count Result 236 k/mm3 (150-375); Red Blood Count 3.57 M/mm3 (4.2-5.4); White Blood Count 6.8 K/mm3 (4.5-10.0)
[2025-03-30] MEDS: ACETAMINOPHEN 325 MG TABLET 650 MG PO ×4 (05:29→21:02)
[2025-03-30] MEDS: LEVOTHYROXINE SODIUM 150 MCG TABLET PO (05:30)
[2025-03-30 05:32] LABS: INR 4.9; Prothrombin Time 43.0 Seconds (11.1-14.7)
[2025-03-30 06:14] LABS: Alanine Aminotransferase 16 U/L (6-35); Albumin Level 3.4 g/dL (3.5-5.1); Alkaline Phosphatase 58 U/L (38-126); Anion Gap 8 mmol/L (4-12); Aspartate Amino Transferase 26 U/L (14-36); Bilirubin,Total 0.3 mg/dL (0.2-1.3); Blood Urea Nitrogen 17 mg/dL (7-17); Calcium 9.1 mg/dL (8.4-10.2); Carbon Dioxide 21 mmol/L (22-30); Chloride 108 mmol/L (98-107); Estimated CRCL calculation 36 ml/min; Estimated Glomerular Filt Rate 44; Glucose 115 mg/dL (65-110); Magnesium 2.0 mg/dL (1.6-2.3); Potassium 3.8 mmol/L (3.4-5.0); Sodium 137 mmol/L (137-145); Total Protein 6.4 g/dL (6.3-8.2)
[2025-03-30] MEDS: guaiFENesin 12 HR 600 MG TABCR PO ×2 (09:03→21:02)
[2025-03-30] MEDS: AMIODARONE HCL 200 MG TABLET 400 MG PO (09:04)
[2025-03-30] MEDS: ROSUVASTATIN 20 MG TABLET 40 MG PO (09:04)
[2025-03-30] MEDS: SPIRONOLACTONE 25 MG TABLET PO (09:04)
[2025-03-30] MEDS: LOSARTAN POTASSIUM 50 MG TABLET PO (09:04)
[2025-03-30] MEDS: FAMOTIDINE 20 MG TABLET PO ×2 (09:04→21:00)
[2025-03-30] MEDS: clonazePAM (*CRX) 0.5 MG TABLET PO ×3 (09:04→21:00)
[2025-03-30] MEDS: LORATADINE 5 MG TABLET PO (09:04)
[2025-03-30] MEDS: VENLAFAXINE HCL XR 37.5 MG CAP PO (09:05)
[2025-03-30] MEDS: DOXYCYCLINE HYCLATE 100 MG TABLET PO ×2 (09:13→21:01)
--- NOTE | 2025-03-30 10:10 | P.PNIM_ITS ---
Progress Note: A&P Assessment and Plan (1) Pneumonia: Code(s): J18.9 - Pneumonia, unspecified organism Status: Acute Assessment and Plan: * CXR: Patchy right upper lung groundglass opacities and mild diffuse reticulonodular opacities, may represent infection overlying chronic respiratory bronchiolitis or senescent/interstitial change. * started on CAP tx: ceftriaxone and doxycycline * Viral PCR: negative for Flu/COVID/RSV * legionella, mycoplasma and pneumococcal - pending * Supplemental O2 requirement 2 liters with Sa02 95%. * supportive treatment * Guaifenesin 600 mg PO q 12. PT/OT. added duoneb procalcitonin 0.1 (2) CHF exacerbation: Qualifiers: Heart failure type: unspecified Qualified Code(s): I50.9 - Heart failure, unspecified Code(s): I50.9 - Heart failure, unspecified Status: Acute Assessment and Plan: * Patient reports that she has not been taking her at-home CHF medication * Symptoms: SOB * Current medications: Furosemide 40mg which is on hold. Due to orthostatic hypotension * BNP: 5070>2790. * EKG: Electronic ventricular pacemaker * Chest XR: Patchy right upper lung groundglass opacities and mild diffuse reticulonodular opacities, may represent infection overlying chronic respiratory bronchiolitis or senescent/interstitial change. * Echo: EF 45-50% mild global hypokinesis with more pronounced hypokinesis of the basal villa grade 1 diastolic dysfunction. Moderate mitral valve regurgitation mild tricuspid valve regurgitation. Previous echo from 2020 reviewed which showed ejection fraction 20-25%. * bnp worsening. Added spironolactone and eventually lasix (3) Acute hypoxemic respiratory failure: Code(s): J96.01 - Acute respiratory failure with hypoxia Status: Acute Assessment and Plan: * 02@2L nasal cannula with Sa02 95%. * Suspected cause: CHF exacerbation, Infectious? * ABG: PH 7.0, CO2 40 a, PO2 557, O2 saturation 89.3%, oxyhemoglobin 87.9 % * EKG: Electronic ventricular paced * Chest XR: Patchy right upper lung groundglass opacities and mild diffuse reticulonodular opacities, may represent infection overlying chronic respiratory bronchiolitis or senescent/interstitial change. * Likely secondary to underlying pneumonia and CHF exacerbation due to medical noncompliance (4) Chronic kidney disease: Code(s): N18.9 - Chronic kidney disease, unspecified Status: Acute Assessment and Plan: * Creatinine: 1.36, GFR: 38, BUN:18 (Baseline Cr appears to be around 1.1-1.2) * Trend renal function * Trend electrolytes, correct as needed (5) Dysphagia: Code(s): R13.10 - Dysphagia, unspecified Status: Acute Assessment and Plan: * Speech eval * Reports history of allergies, states that she took a clear to last night and does not have any presenting symptoms at this time * Oropharynx clear, no evidence angioedema * Claritin 5 mg p.o. daily (6) Hypertension: Qualifiers: Hypertension type: primary hypertension Qualified Code(s): I10 - Essential (primary) hypertension Code(s): I10 - Essential (primary) hypertension Status: Chronic Assessment and Plan: * Carvedilol 25 mg PO daily, Losartan 50 mg PO daily, and Spironolactone 25 mg PO daily. (7) Hyperlipidemia: Code(s): E78.5 - Hyperlipidemia, unspecified Status: Chronic Assessment and Plan: * Rosuvastatin 40 mg PO daily. (8) Hypothyroidism: Qualifiers: Hypothyroidism type: acquired Qualified Code(s): E03.9 - Hypothyroidism, unspecified Code(s): E03.9 - Hypothyroidism, unspecified Status: Chronic Assessment and Plan: * Levothyroxine 150 mcg PO daily. Plan DVT prophylaxis on warfarin. INR supratherapeutic. Hold Coumadin today. Subjective Date/time seen: 03/30/25 10:10 Interval history: No overnight events. No new complaints. No more nausea. INR trend reviewed. Review of Systems Review of Systems: All systems reviewed & are unremarkable except as noted in HPI and below Exam Narrative: Gen - well appearing female in no acute respiratory distress who is nontoxic- appearing lying semi recumbent in bed HEENT - normocephalic. Atraumatic. Pupils equal round and reactive. Extraocular motions intact. Neck - neck was supple. No dominant adenopathy, thyromegaly or masses. Chest - lungs are clear to auscultation bilaterally. No wheezes or crackles. CV - heart was regular rate and rhythm. S1-S2. No murmurs gallops or rubs. Abd - abdomen was soft. Nontender. Nondistended. Positive bowel sounds. No organomegaly or masses. Ext - no clubbing, cyanosis or edema. 2+ DP pulses bilaterally. Neuro - patient is alert and oriented x4. Strength is 5/5 in both upper and lower extremities. Cranial nerves 2-12 are intact. Speech is clear. Psych - normal mood and affect. Patient is pleasant and cooperative. Skin - warm and dry. No rashes noted. Objective Data Vital Signs Vital Signs: Vital Signs - 24 hr 03/29/25 12:00 03/29/25 12:00 03/29/25 16:00 Temperature Pulse Rate 60 60 60 Respiratory Rate 14 Blood Pressure 135/64 124/61 Pulse Oximetry 92 93 Oxygen Delivery 03/29/25 16:00 03/29/25 16:05 03/29/25 20:00 Temperature Pulse Rate 60 60 Respiratory Rate 16 Blood Pressure 141/65 H Pulse Oximetry Oxygen Delivery 03/29/25 20:00 03/29/25 20:00 03/29/25 20:00 Temperature 98.0 F Pulse Rate 73 Respiratory Rate 16 Blood Pressure 147/72 H 154/69 H Pulse Oximetry 96 Oxygen Delivery Room Air 03/29/25 20:00 03/29/25 20:23 03/29/25 20:26 Temperature Pulse Rate 64 60 Respiratory Rate 16 Blood Pressure Pulse Oximetry 96 Oxygen Delivery Room Air 03/29/25 20:34 03/30/25 00:00 03/30/25 00:00 Temperature 97.8 F Pulse Rate 60 60 60 Respiratory Rate 16 16 Blood Pressure 131/47 L Pulse Oximetry 93 Oxygen Delivery 03/30/25 01:34 03/30/25 01:40 03/30/25 04:00 Temperature 97.6 F Pulse Rate 60 60 87 Respiratory Rate 16 16 20 Blood Pressure 156/70 H Pulse Oximetry 94 Oxygen Delivery 03/30/25 04:00 03/30/25 07:51 03/30/25 07:51 Temperature Pulse Rate 63 69 Respiratory Rate 16 Blood Pressure Pulse Oximetry 96 Oxygen Delivery Room Air 03/30/25 07:56 03/30/25 08:00 03/30/25 09:03 Temperature Pulse Rate 60 64 64 Respiratory Rate 16 18 Blood Pressure 135/49 L Pulse Oximetry 93 Oxygen Delivery 03/30/25 09:04 Temperature Pulse Rate 64 Respiratory Rate Blood Pressure Pulse Oximetry Oxygen Delivery Intake/Output Intake/Output: Intake & Output 03/27/25 03/28/25 03/29/25 03/30/25 23:59 23:59 23:59 23:59 Intake Total 1460 1246.7 730 490 Output Total 1501 200 Balance -41 1046.7 730 490 Meds/Results Medications: Active Medications Generic Name Dose Route Start Last Admin Trade Name Tcq PRN Reason Stop Dose Admin Acetaminophen 650 mg 03/25/25 04:48 03/30/25 05:29 Acetaminophen 325 Mg Tablet PO 650 mg Q4H PRN Administration Mild Pain (1-3) fever or sleep Albuterol/Ipratropium 3 ml 03/28/25 14:00 03/30/25 07:50 Ipratropium 0.5 Mg/Albuterol Sulfate 2.5 Mg Ampul.Neb 3 Ml INHALATION 3 ml Q6HRT STAN Administration Amiodarone HCl 400 mg 03/25/25 08:00 03/30/25 09:04 Amiodarone Hcl 200 Mg Tablet PO 400 mg DAILY@0800 STAN Administration Carvedilol 25 mg 03/25/25 09:00 03/30/25 09:03 Carvedilol 25 Mg Tablet PO 25 mg DAILY STAN Administration Clonazepam 0.5 mg 03/25/25 09:00 03/30/25 09:04 Clonazepam (*Crx) 0.5 Mg Tablet PO 0.5 mg TID STAN Administration Donepezil HCl 10 mg 03/25/25 21:00 03/29/25 21:35 Donepezil Hcl 10 Mg Tablet PO 10 mg HS STAN Administration Doxycycline Hyclate 100 mg 03/28/25 11:00 03/30/25 09:13 Doxycycline Hyclate 100 Mg Tablet PO 100 mg BID@1000,2200 STAN Administration Famotidine 20 mg 03/25/25 09:00 03/30/25 09:04 Famotidine 20 Mg Tablet PO 20 mg Q12HR STAN Administration Guaifenesin 600 mg 03/26/25 10:45 03/30/25 09:03 Guaifenesin 12 Hr 600 Mg Tabcr PO 04/02/25 10:44 600 mg Q12HR STAN Administration Ceftriaxone Sodium 1 gm/ 50 mls @ 100 mls/hr 03/26/25 01:30 03/30/25 00:52 Sodium Chloride IVPB 100 mls/hr Q24H STAN Administration Levothyroxine Sodium 150 mcg 03/25/25 06:30 03/30/25 05:30 Levothyroxine Sodium 150 Mcg Tablet PO 150 mcg DAILY@0630 STAN Administration Loratadine 5 mg 03/25/25 09:00 03/30/25 09:04 Loratadine 5 Mg Tablet PO 5 mg QAM STAN Administration Losartan Potassium 50 mg 03/25/25 09:00 03/30/25 09:04 Losartan Potassium 50 Mg Tablet PO 50 mg DAILY STAN Administration Prochlorperazine Edisylate 10 mg 03/26/25 13:02 03/29/25 18:56 Prochlorperazine Edisylate 10 Mg/2 Ml Vial IV PUSH 10 mg Q6H PRN Administration Nausea And Vomiting Rosuvastatin Calcium 40 mg 03/25/25 09:00 03/30/25 09:04 Rosuvastatin 20 Mg Tablet PO 40 mg DAILY STAN Administration Spironolactone 25 mg 03/25/25 09:00 03/30/25 09:04 Spironolactone 25 Mg Tablet PO 25 mg DAILY STAN Administration Trazodone HCl 150 mg 03/25/25 21:00 03/29/25 21:35 Trazodone Hcl 50 Mg Tablet PO 150 mg HS STAN Administration Venlafaxine HCl 37.5 mg 03/25/25 08:00 03/30/25 09:05 Venlafaxine Hcl Xr 37.5 Mg Cap PO 37.5 mg DAILY@0800 [facility] Administration Warfarin Sodium 3 mg 03/25/25 17:00 03/29/25 17:07 Warfarin (*Pbkc) 3 Mg Tablet PO 3 mg DAILY@1700 STAN Administration Radiology Results: ITS Impressions Head CT 03/25/25 14:37 IMPRESSION: No evidence for acute intracranial hemorrhage or calvarial fracture. Chest X-Ray 03/28/25 15:01 IMPRESSION: Mild pulmonary vascular congestion, without focal infiltrate or effusion. Labs Labs: Laboratory Results - last 24 hr 03/30/25 05:12 WBC 6.8 RBC 3.57 L Hgb 11.5 L Hct 38.8 MCV 108.7 H D MCH 32.2 MCHC 29.6 L RDW 14.3 Plt Count 236 MPV 9.3 Immature Gran % (Auto) 0.1 Neut % (Auto) 51.1 Lymph % (Auto) 29.9 [place] % (Auto) 13.3 H Eos % (Auto) 5.0 H Baso % (Auto) 0.6 Lymph # (Auto) 2.02 [place] # (Auto) 0.9 H Eos # (Auto) 0.3 Baso # (Auto) 0.0 Abs Immat Gran (auto) 0.01 Absolute Neuts (auto) 3.4 Absolute Nucleated RBC 0.000 Nucleated RBC % 0.0 PT 43.0 H D INR 4.9 Sodium 137 Potassium 3.8 Chloride 108 H Carbon Dioxide 21 L Anion Gap 8 BUN 17 Creatinine 1.18 H Estim Creat Clear Calc 36 Estimated GFR 44 L Glucose 115 H Calcium 9.1 Magnesium 2.0 Total Bilirubin 0.3 AST 26 ALT 16 Alkaline Phosphatase 58 Total Protein 6.4 Albumin 3.4 L
[2025-03-30] MEDS: PROCHLORPERAZINE EDISYLATE 10 MG/2 ML VIAL IV PUSH (10:34)
[2025-03-30] MEDS: CEFDINIR 300 MG CAPSULE PO (21:00)
[2025-03-30] MEDS: DONEPEZIL HCL 10 MG TABLET PO (21:00)
[2025-03-31] VITALS (12 sets, daily range): BP systolic 132–161; BP diastolic 64–74; PULSE 58–95; RESP 16–20; TEMP 36.7–36.8; O2SAT 93–97
[2025-03-31] MEDS: IPRATROPIUM 0.5 MG/ALBUTEROL SULFATE 2.5 MG AMPUL.NEB 3 ML INHALATION ×2 (01:34→07:56)
[2025-03-31 05:22] LABS: Hematocrit 35.7 % (37.0-47.0); Hemoglobin 10.7 g/dL (12.0-15.0); Immature Granulocyte Percent A 0.3 % (0-0.5); Lymphocytes Absolute Auto 2.00 K/mm3 (0.9-3.2); Mean Corpuscular HGB Conc 30.0 g/dl (32-36); Mean Corpuscular Hemoglobin 31.7 pg (26-34); Mean Corpuscular Volume 105.6 fl (80-100); Nucleated Red Blood Cells Absolute Auto 0.000 K/mm3 (0.0-0.012); Nucleated Red Blood Cells Perc 0.0 % (0.0-0.2); Platelet Count Result 212 k/mm3 (150-375); Red Blood Count 3.38 M/mm3 (4.2-5.4); White Blood Count 6.1 K/mm3 (4.5-10.0)
[2025-03-31 05:24] LABS: INR 3.0; Prothrombin Time 29.6 Seconds (11.1-14.7)
[2025-03-31] MEDS: clonazePAM (*CRX) 0.5 MG TABLET PO (05:35)
[2025-03-31] MEDS: LEVOTHYROXINE SODIUM 150 MCG TABLET PO (05:35)
[2025-03-31 05:37] LABS: Alanine Aminotransferase 17 U/L (6-35); Albumin Level 3.3 g/dL (3.5-5.1); Alkaline Phosphatase 53 U/L (38-126); Anion Gap 6 mmol/L (4-12); Aspartate Amino Transferase 27 U/L (14-36); Bilirubin,Total 0.3 mg/dL (0.2-1.3); Blood Urea Nitrogen 17 mg/dL (7-17); Calcium 8.9 mg/dL (8.4-10.2); Carbon Dioxide 24 mmol/L (22-30); Chloride 108 mmol/L (98-107); Estimated CRCL calculation 37 ml/min; Estimated Glomerular Filt Rate 46; Glucose 90 mg/dL (65-110); Magnesium 2.1 mg/dL (1.6-2.3); Potassium 3.6 mmol/L (3.4-5.0); Sodium 138 mmol/L (137-145); Total Protein 6.5 g/dL (6.3-8.2)
[2025-03-31] MEDS: AMIODARONE HCL 200 MG TABLET 400 MG PO (08:39)
[2025-03-31] MEDS: FAMOTIDINE 20 MG TABLET PO (08:39)
[2025-03-31] MEDS: ROSUVASTATIN 20 MG TABLET 40 MG PO (08:39)
[2025-03-31] MEDS: SPIRONOLACTONE 25 MG TABLET PO (08:39)
[2025-03-31] MEDS: CEFDINIR 300 MG CAPSULE PO (08:39)
[2025-03-31] MEDS: PROCHLORPERAZINE EDISYLATE 10 MG/2 ML VIAL IV PUSH (08:39)
[2025-03-31] MEDS: guaiFENesin 12 HR 600 MG TABCR PO (08:39)
[2025-03-31] MEDS: VENLAFAXINE HCL XR 37.5 MG CAP PO (08:39)
[2025-03-31] MEDS: LORATADINE 5 MG TABLET PO (08:40)
[2025-03-31] MEDS: LOSARTAN POTASSIUM 50 MG TABLET PO (08:40)
[2025-03-31] MEDS: ACETAMINOPHEN 325 MG TABLET 650 MG PO (09:15)
[2025-03-31] MEDS: DOXYCYCLINE HYCLATE 100 MG TABLET PO (09:15)
--- NOTE | 2025-03-31 11:47 | P.DS_ITS ---
DS: Admitting Diagnosis Discharge Date 03/31/2025 Admitting Diagnosis shortness of breath DS: Discharge Diagnosis Discharge Diagnosis (1) Pneumonia: Code(s): J18.9 - Pneumonia, unspecified organism Status: Acute (2) CHF exacerbation: Qualifiers: Heart failure type: unspecified Qualified Code(s): I50.9 - Heart failure, unspecified Code(s): I50.9 - Heart failure, unspecified Status: Acute (3) Acute hypoxemic respiratory failure: Code(s): J96.01 - Acute respiratory failure with hypoxia Status: Acute (4) Chronic kidney disease: Code(s): N18.9 - Chronic kidney disease, unspecified Status: Acute (5) Dysphagia: Code(s): R13.10 - Dysphagia, unspecified Status: Acute (6) Hypertension: Qualifiers: Hypertension type: primary hypertension Qualified Code(s): I10 - Essential (primary) hypertension Code(s): I10 - Essential (primary) hypertension Status: Chronic (7) Hyperlipidemia: Code(s): E78.5 - Hyperlipidemia, unspecified Status: Chronic (8) Hypothyroidism: Qualifiers: Hypothyroidism type: acquired Qualified Code(s): E03.9 - Hypothyroidism, unspecified Code(s): E03.9 - Hypothyroidism, unspecified Status: Chronic DS: Summary Hospital Course Hospital Course: # Pneumonia: * CXR: Patchy right upper lung groundglass opacities and mild diffuse reticulonodular opacities, may represent infection overlying chronic respiratory bronchiolitis or senescent/interstitial change. * started on CAP tx: ceftriaxone and doxycycline * Viral PCR: negative for Flu/COVID/RSV * legionella, mycoplasma and pneumococcal - pending * Supplemental O2 requirement 2 liters with Sa02 95%. * supportive treatment * Guaifenesin 600 mg PO q 12.PT/OT. added duoneb procalcitonin 0.1 finished antibiotics course throughout the hospital stay. # CHF exacerbation: * Patient reports that she has not been taking her at-home CHF medication * Symptoms: SOB * Current medications: Furosemide 40mg which is on hold. Due to orthostatic hypotension * BNP: 5070>2790. * EKG: Electronic ventricular pacemaker * Chest XR: Patchy right upper lung groundglass opacities and mild diffuse reticulonodular opacities, may represent infection overlying chronic respiratory bronchiolitis or senescent/interstitial change. * Echo: EF 45-50% mild global hypokinesis with more pronounced hypokinesis of the basal villa grade 1 diastolic dysfunction. Moderate mitral valve regurgitation mild tricuspid valve regurgitation. Previous echo from 2020 reviewed which showed ejection fraction 20-25%. * bnp worsening. Added spironolactone andResume Lasix at discharge # Acute hypoxemic respiratory failure: * 02@2L nasal cannula with Sa02 95%. * Suspected cause: CHF exacerbation, Infectious? * ABG: PH 7.0, CO2 40 a, PO2 557, O2 saturation 89.3%, oxyhemoglobin 87.9 % * EKG: Electronic ventricular paced * Chest XR: Patchy right upper lung groundglass opacities and mild diffuse reticulonodular opacities, may represent infection overlying chronic respiratory bronchiolitis or senescent/interstitial change. * Likely secondary to underlying pneumonia and CHF exacerbation due to medical noncompliance # Chronic kidney disease: * Creatinine: 1.36, GFR: 38, BUN:18 (Baseline Cr appears to be around 1.1-1.2) * Trend renal function * Trend electrolytes, correct as needed # Dysphagia: * Speech eval * Reports history of allergies, states that she took a clear to last night and does not have any presenting symptoms at this time * Oropharynx clear, no evidence angioedema * Claritin 5 mg p.o. daily # Hypertension: * Carvedilol 25 mg PO daily, Losartan 50 mg PO daily, and Spironolactone 25 mg PO daily. # Hyperlipidemia: * Rosuvastatin 40 mg PO daily. # Hypothyroidism: * Levothyroxine 150 mcg PO daily. # DVT prophylaxis on warfarin. INR supratherapeutic. held coumadin. adjust dose to 2 mg daily for discharge. fu with pcp regarding inr managmenet Time Spent with Patient Time attestation: Total time spent providing and/or coordinating discharge services: 40 minutes Exam Narrative: Gen - well appearing female in no acute respiratory distress who is nontoxic- appearing lying semi recumbent in bed HEENT - normocephalic. Atraumatic. Pupils equal round and reactive. Extraocular motions intact. Neck - neck was supple. No dominant adenopathy, thyromegaly or masses. Chest - lungs are clear to auscultation bilaterally. No wheezes or crackles. CV - heart was regular rate and rhythm. S1-S2. No murmurs gallops or rubs. Abd - abdomen was soft. Nontender. Nondistended. Positive bowel sounds. No organomegaly or masses. Ext - no clubbing, cyanosis or edema. 2+ DP pulses bilaterally. Neuro - patient is alert and oriented x4. Strength is 5/5 in both upper and lower extremities. Cranial nerves 2-12 are intact. Speech is clear. Psych - normal mood and affect. Patient is pleasant and cooperative. Skin - warm and dry. No rashes noted. DS: Data Data Completed and Pending Labs on day of discharge: Labs from last 24 hours 03/31/25 04:50 WBC 6.1 RBC 3.38 L Hgb 10.7 L Hct 35.7 L MCV 105.6 H MCH 31.7 MCHC 30.0 L RDW 14.4 Plt Count 212 MPV 9.2 Immature Gran % (Auto) 0.3 Neut % (Auto) 49.2 Lymph % (Auto) 32.6 [place] % (Auto) 12.1 H Eos % (Auto) 5.1 H Baso % (Auto) 0.7 Lymph # (Auto) 2.00 [place] # (Auto) 0.7 H Eos # (Auto) 0.3 Baso # (Auto) 0.0 Abs Immat Gran (auto) 0.02 Absolute Neuts (auto) 3.0 Absolute Nucleated RBC 0.000 Nucleated RBC % 0.0 PT 29.6 H D INR 3.0 Sodium 138 Potassium 3.6 Chloride 108 H Carbon Dioxide 24 Anion Gap 6 BUN 17 Creatinine 1.13 H Estim Creat Clear Calc 37 Estimated GFR 46 L Glucose 90 Calcium 8.9 Magnesium 2.1 Total Bilirubin 0.3 AST 27 ALT 17 Alkaline Phosphatase 53 Total Protein 6.5 Albumin 3.3 L Preliminary micro results at discharge 03/29/25 09:05 Sputum Culture - Preliminary Sputum 03/25/25 01:23 Blood Culture - Preliminary Blood 03/25/25 01:23 Blood Culture - Preliminary Blood Imaging Radiologist's impression: ITS Impressions Chest X-Ray 03/24/25 22:35 IMPRESSION: Patchy right upper lung groundglass opacities and mild diffuse reticulonodular opacities, may represent infection overlying chronic respiratory bronchiolitis or senescent/interstitial change. Head CT 03/25/25 14:37 IMPRESSION: No evidence for acute intracranial hemorrhage or calvarial fracture. Chest X-Ray 03/28/25 15:01 IMPRESSION: Mild pulmonary vascular congestion, without focal infiltrate or effusion. Discharge Plan Discharge Attending physician on discharge: Vinny Santamaria Consulting providers: Morris Israel Discharging Clinician: Vinny Santamaria Anticipated Discharge Date/Time: 03/31/25 11:50 Patient Disposition: Home with Home Health Service Activity: as tolerated Diet: heart healthy Discharge Instructions: warfarin dose lowered to 2 mg daily. INR in 3 days. fu with PCP with regards to dosing of warfarin. Patient Instructions: Antibiotic Form, Warfarin (By mouth), Heart Failure (GEN) Patient Language: [place]an Stand Alone Forms: General Discharge Information Follow-up/Referrals: Maureen,MD Masoud [Primary Care Provider] - 1 Week Discharge Medications: New guaifenesin [Mucus Relief ER] 600 mg Tablet Extended Release 12hr 600 mg PO Q12HR Qty: 20 0RF Continued venlafaxine [Effexor XR] 37.5 mg capsule,extended release 24hr 37.5 mg PO DAILY trazodone 150 mg tablet 150 mg PO HS carvedilol 12.5 mg tablet 25 mg PO DAILY rosuvastatin 40 mg tablet 40 mg PO DAILY levothyroxine 150 mcg Tablet 150 mcg PO DAILY amiodarone 200 mg tablet 400 mg PO DAILY clonazepam 0.5 mg tablet 0.5 mg PO TID famotidine 20 mg tablet 20 mg PO Q12H PRN (Reason: reflux) losartan 50 mg tablet 50 mg PO DAILY spironolactone 25 mg tablet 25 mg PO DAILY albuterol sulfate 90 mcg/actuation HFA aerosol inhaler 1 puff INHALATION Q4H PRN (Reason: shortness of breath or wheezing) cyanocobalamin (vitamin B-12) 1,000 mcg/mL solution 1,000 mcg subcut MONTHLY donepezil 10 mg tablet 10 mg PO HS furosemide 40 mg tablet 40 mg PO 3XW Rx Instructions: -- ondansetron 4 mg tablet,disintegrating 8 mg PO Q12H PRN (Reason: nausea and vomiting) Changed warfarin 3 mg tablet 2 mg PO DAILY Qty: 30 0RF Discontinued ondansetron 4 mg tablet,disintegrating 8 mg PO Q12H PRN (Reason: nausea and vomiting) Other Ambulatory Orders: Prothrombin Time INR (Routine) Timeframe: 3 Days Location: Determined by Patient Ordered By: Vinny Santamaria Date of admission: 03/26/25 09:28 Primary Care Provider: Maureen,Masoud Admitting Provider: Henny Fox Attending physician on admission: Henny Fox Condition: Improved
== END 2025-03-31 12:52 | disposition home health service (06) | DRG 193 ==
LOC: ANHED 03-25 01:29 → ANH2MED 03-25 01:36
PROVIDERS: Physician Assistant; Student in an Organized Health Care Education/Training Program; Admitting Provider Internal Medicine; Emergency Provider Physician Assistant; PCP Internal Medicine; Visit Provider Internal Medicine
DX: J18.9 Pneumonia, unspecified organism (principal); I50.43 Acute on chronic combined systolic (congestive) and diastolic (congestive) heart failure; J96.01 Acute respiratory failure with hypoxia; I13.0 Hypertensive heart and chronic kidney disease with heart failure and stage 1 through stage 4 chronic kidney disease, or unspecified chronic kidney disease; Z91.148 Patient's other noncompliance with medication regimen for other reason; N18.9 Chronic kidney disease, unspecified; R13.10 Dysphagia, unspecified; E78.5 Hyperlipidemia, unspecified; E03.9 Hypothyroidism, unspecified; F31.9 Bipolar disorder, unspecified; F41.8 Other specified anxiety disorders; Z96.653 Presence of artificial knee joint, bilateral; Z86.73 Personal history of transient ischemic attack (TIA), and cerebral infarction without residual deficits; Z86.718 Personal history of other venous thrombosis and embolism; Z90.711 Acquired absence of uterus with remaining cervical stump
CPT/HCPCS: 36415; 36600; 70450; 71045; 80053; 82375; 82805; 82948; 83050; 83735; 83880; 84145; 84484; 85018; 85025; 85610; 85730; 87040; 87070; 87205; 87449; 87637; 87899; 92526; 92610; 93005; 93306; 94640; 96365; 96366; 96367; 96372; 96375; 97110; 97161; 97166; 97530; 97535; 99285; A9270; G0378; J0696; J0780; J1650; J1938; J2405

== ENCOUNTER 2025-04-10 13:24 | Outpatient (NON) | payer MEDICARE, SELFPAY ==
--- OUTSIDE RECORDS SUMMARY | 2025-04-10 13:28 | XMS_ITS | Clinical Summary ---
Author Organization [facility] Address [address] [place] [address] Phone Care Team Providers Care Personnel Administrator Name Role Phone Lana Tovar MD Primary [...] to complete this topic Insurance MEDICARE C [facility] Care Teams Personnel Administrator Relationship Specialty Start Date End Date Lana Tovar MD [address] [place] [id number] PCP - General Family Medicine 12/23/16
--- OUTSIDE RECORDS SUMMARY | 2025-04-10 13:28 | XMS_ITS | Clinical Summary ---
Author Organization [facility] [address] Address [address] [place] [address] Care Team Providers Care Heat Treating Furnace Tender Name Role Phone Bandar Gaffney MD Unavailable [phone] Dillan Reddy MD Primary Care Provide r [...] by mouth daily 60 tablet 3 5 Active carvediloL (COREG) 25 mg tablet Take [...] in situ 04/13/2021 Overview (04/21/2023): Dodge DDD [place] BI-V ICD imp on 04/12/21 for DCM, [...] Description 02/19/2025 1:30 PM CDT Ancillary Procedure [facility] [address] [facility] [address] [place] [phone] Dilated cardiomyopathy (HCC); VT (ventricular tachycardia) (HCC); ICD (implantable cardioverter-defibrill ator), biventricular, in situ; Paroxysmal atrial fibrillation (HCC) 02/10/[address] [place] [phone] Samy Ceja MD 01/13/2025 Telephone [facility] [address] [place] [phone] Samy Ceja MD from Last 3 Months Immunizations Immunization Administration Dates Next Due Influenza, Quadrivalent, Hig h Dose, Preservative Free, Intrr 05/12/2020 Influenza, Quadrivalent, Spl it, Intramuscular 06/04/2019,05/15/2018 Influenza, Trivalent, High D ose, Split, Preservative Free, Intramuscular 05/30/2019,05/01/2018,06/08/2017,08/28 /2016 Influenza, Trivalent, IM (MDV) 05/28/2014 Influenza, Trivalent, [...] often do you attend chur ch or pentecostal services? 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 [employer] Gender Identity Not on file Sexual Orientation [...] 05/15/2018, 11/2015 Medical Devices Implanted Type Area Computer Operations Supervisor Device Identifier Shelf Expiration Date Model / Serial / Lot Dodge Vascular [id number] Defib Cardiac [id number] [place] Hf Df4 Is-4 Is-1 Cnctr - [id number] - [id number] Implanted:Qty: 1 on 04/12/2021 by Bandar Gaffney MD at [facility] ICD [employer] [id number] 02/01/2023 C [id number] / [id number] / [employer] 7120q/65 Durata 7fr 65cm 2 Coil Df-4 True Bipolar Active Fixation - [id number] - [id number] Implanted:Qty: 1 on 04/12/2021 by Bandar Gaffney MD at [facility] Lead [employer] [id number] 02/01/2022 7120Q/65 / [id number] / [employer] 2088tc/52 Tendril Sts 6fr 52cm Is-1 Connector Active Fixation Bipolar Soft - [id number] - [id number] Implanted:Qty: 1 on 04/12/2021 by Bandar Gaffney MD at [facility] Lead [employer] [id number] 03/03/2024 2088TC/52 / [id number] / [employer] 1458q/86 Quartet 5fr [id number] 4 Electrode Is-4 Connector Steerable Tip - [id number] - [id number] Implanted:Qty: 1 on 04/12/2021 by Bandar Gaffney MD at [facility] Lead [employer] [id number] 02/02/2024 1458Q/86 / [id number] / Procedures Procedure Name Priority Date/Time Associated [...] Narrative 02/25/2025 12:51 PM CDT Dodge DDD [place] BI-V ICD imp on 04/12/21 for DCM, VT, Afib. EP-Yeimy. Card-Marcial. Jose De Jesus remote. Bluetooth [employer] Component Advisory. Supervising MD: [...] See scanned report. Office device f/u 05/27/2026. [place] remote f/u 05/27/2025. Dulce Gutierrez, RN Samy Ceja MD [facility] PROC EDURES Final Result from Last 3 Months Insurance [employer] MEDICARE ADVANTAGE [place] [id number] Advance Directives For more information, please contact: [phone] * Full Code (Latest Code Status on File) Date Activated Date Inactivated Comments 03/23/2023 7:04 AM 03/26/2023 7:27 PM Care Teams Heat Treating Furnace Tender Relationship Specialty Start Date End Date Dillan Reddy MD [address] [place] [address] PCP - General Internal Medicine 11/09/23 Bandar Gaffney MD Consulting Physician Cardiology 04/13/21
--- OUTSIDE RECORDS SUMMARY | 2025-04-10 13:28 | XMS_ITS | Patient Health Record ---
Author Organization [facility] As [employer] [facility] Address [address] [facility] [address] [place] [address] Care Team Providers Care Assembler Fishing Floats Name Role Phone Maureen URBINA, Masoud Primary Care Provider Un available Patric Amaya Unavailable [phone] Allergies Allergen (clinical drug ingredient) Drug/Non Drug [...] Duration) Notes Start Date End Date Status Spironolactone 25 MG Oral; Duration: 30 Days Active Warfarin Sodium 3 MG Oral 01/12/2024 Active Carvedilol 25 MG TAKE 1/2 (ONE-HALF) TABLET BY MOUTH TWICE DAILY WITH MEALS Oral; Duration: 30 Days Active Famotidine 20 MG TAKE 1 TABLET BY JEREMIAS TWICE DAILY NEEDED Oral; Duration: 90 Days Active clonazePAM 0.5 MG 1 tablet Oral three times a day; Duration: 30 days 04/09/2025 Active Amiodarone HCl 200 MG Oral; Duration: 60 Days Active rOPINIRole HCl 0.5 MG TAKE 1 TABLET BY OUT ONCE DAILY AT BEDTIME FOR 90 DAYS; Duration: 90 Active traZODone HCl 150 MG 1.5 tablet at bedti me Oral Once a day; Duration: 30 days 09/13/2024 Active Furosemide 40 MG TAKE 1 TABLET BY [facility] THREE TIMES A WEEK Oral; Duration: 84 Days Active Cyanocobalamin 1000 MCG/ML INJECT 1ML INTRAMUSCULARLY ONCE EVERY MONTH Injection; Duration: 90 Days Active traZODone HCl 150 MG 1.5 tablet at bedti me Oral Once a day; Duration: 90 days Active Vraylar 1.5 MG 1 capsule at bedtime Oral every other day; Duration: 30 days Samples Active Venlafaxine HCl ER 37.5 MG 1 capsule with food Orally Once a day; Duration: 90 days Active Ondansetron HCl 4 MG TAKE 1 TABLET BY [facility] TWICE DAILY NEEDED Oral; Duration: 5 Days Active Donepezil HCl 10 MG 1 tablet at bedtime Oral Once a day; Duration: 90 days Active Immunizations Vaccine Route Administration Date Status [...] Vaccine 1st dose Unknown 02/22/2022 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 Wingu Covid-19 Vac cine 2nd dose Unknown 05/26/2022 [...] A Caregiver Who Assists With Household Tasks Living situation: Lives Alone, Receives Visits From Senior Services Problems Problem Type SNOMED Code ICD Code Onset Dates Problem Status W/U Status Risk Notes Problem Bipolar affective disorder, currently depressed, mild (088325967) Bipolar disorder, current episode depressed, mild (F31.31) Active confirmed Problem Generalized anxiety disorder (37788967) Generalized anxiety disorder (F41.1) Active confirmed Problem Primary insomnia (0389326) Primary insomnia (F51.01) Active confirmed Problem Alzheimer's disease with late onset (380500677) Alzheimer's disease with late onset (G30.1) Active confirmed Problem Cardiomyopathy (57112141) Cardiomyopathy, unspecified (I42.9) Active confirmed Problem Heart failure (68930932) Heart failure, unspecified (I50.9) Active confirmed Problem Recurrent falls (866629614) Repeated falls (R29.6) Active confirmed Problem Generalized anxiety disorder (02202102) [place] (generalized anxiety disorder) (F41.1) Active confirmed Problem Hyperlipidemia (03649682) Hyperlipidemia (E78.5) 03/22/20 21 Active confirmed Problem Hypothyroidism (26809126) Hypothyroidism (E03.9) 03/22/20 Active confirmed Problem Cardiomyopathy (89961281) Cardiomyopathy (I42.9) 03/22/20 21 Active confirmed Problem Left bundle branch block (06140426) Left bundle branch block (LBBB) (I44.7) 03/23/20 Active confirmed Problem Ventricular tachycardia (disorder) (28157577) VT (ventricular tachycardia) (I47.20) 04/12/20 21 Active confirmed Problem Automatic implantable cardiac defibrillator in situ (929159609) ICD (implantable cardioverter-defi brillator), biventricular, in situ (Z95.810) 04/21/20 23 Active confirmed Vital Signs Heart Rate 62 /min 03/12/2025 Height-cm 165.10 cm 04/09/2025 Blood pressure diastolic 75 mm Hg 04/09/2025 Weight-kg 81.65 kg 02/13/2025 Height 65.00 in 04/09/2025 Blood pressure systolic 130 mm Hg 04/09/2025 Weight 180, 180.0 lbs 02/13/2025 BMI 29.95 kg/m2 02/13/2025 Encounters Encounter Location Date Provider Diagnosis [facility] [employer] [address] [address] 04/12/2024 Patric Jose Luis Bipolar disorder, current episode depressed, mild F31.31 ; Cardiomyopathy, unspecified I42.9 ; Primary insomnia F51.01 ; Alzheimer's disease with late onset G30.1 and CAM[place] (generalized anxiety disorder) F41.1 [facility] [employer] [address] [address] 05/13/2024 Patric Jose Luis Bipolar disorder, current episode depressed, mild F31.31 ; Cardiomyopathy, unspecified I42.9 ; Primary insomnia F51.01 ; Alzheimer's disease with late onset G30.1 and CAM[place] (generalized anxiety disorder) F41.1 [facility] [employer] [address] [address] 06/14/2024 Patric Jose Luis Bipolar disorder, current episode depressed, mild F31.31 ; Cardiomyopathy, unspecified I42.9 ; Primary insomnia F51.01 ; Alzheimer's disease with late onset G30.1 ; CAMDEN (generalized anxiety disorder) F41.1 ; Hyperlipidemia E78.5 ; Left bundle branch block (LBBB) I44.7 and Hypothyroidism E03.9 [facility] [employer] [place] [address] [facility] [address] [address] 07/15/2024 Patric Jose Luis Bipolar disorder, current episode depressed, mild F31.31 ; Cardiomyopathy, unspecified I42.9 ; Primary insomnia F51.01 ; Alzheimer's disease with late onset G30.1 ; CAMDEN (generalized anxiety disorder) F41.1 ; Hyperlipidemia E78.5 ; Left bundle branch block (LBBB) I44.7 and Hypothyroidism E03.[address] [address] 09/19/2024 Patric Jose Luis Bipolar disorder, current episode depressed, mild F31.31 ; Cardiomyopathy, unspecified I42.9 ; Primary insomnia F51.01 ; Alzheimer's disease with late onset G30.1 ; CAMDEN (generalized anxiety disorder) F41.1 ; Hyperlipidemia E78.5 ; Left bundle branch block (LBBB) I44.7 and Hypothyroidism E03.[address] [address] 10/17/2024 Patric Jose Luis Bipolar disorder, current episode depressed, mild F31.31 ; Primary insomnia F51.01 ; Alzheimer's disease with late onset G30.1 ; CAMDEN (generalized anxiety disorder) F41.1 ; Hyperlipidemia E78.5 and Hypothyroidism E03.9 [facility] [employer] [address] [address] 11/14/2024 Patric Jose Luis Encounter for screen ing for depression Z13.31 ; Encounter for screening for cardiovascular disorders Z13.6 ; Bipolar disorder, current episode depressed, mild F31.31 ; Primary insomnia F51.01 ; Alzheimer's disease with late onset G30.1 ; CAMDEN (generalized anxiety disorder) F41.1 ; Hyperlipidemia E78.5 and Hypothyroidism E03.9 [facility] [employer] [address] [address] 12/12/2024 Patric Jose Luis Encounter for screen ing for cardiovascular disorders Z13.6 ; Encounter for screening for depression Z13.31 ; Bipolar disorder, current episode depressed, mild F31.31 ; Primary insomnia F51.01 ; Alzheimer's disease with late onset G30.1 ; CAMDEN (generalized anxiety disorder) F41.1 ; Hyperlipidemia E78.5 and Hypothyroidism E03.9 [facility] [employer] [address] [address] 01/09/2025 Patric Jose Luis Bipolar disorder, current episode depressed, mild F31.31 ; Primary insomnia F51.01 ; Alzheimer's disease with late onset G30.1 ; CAMDEN (generalized anxiety disorder) F41.1 ; Negative depression screening Z13.31 and Encounter for screening for cardiovascular disorders Z13.6 [place] [address] [facility] [address] [place] [address] 02/13/2025 Patric Jose Luis Bipolar disorder, current episode depressed, mild F31.31 ; Primary insomnia F51.01 ; Alzheimer's disease with late onset G30.1 ; Dietary counseling and surveillance Z71.3 ; CAM[place] (generalized anxiety disorder) F41.1 ; Encounter for screening for cardiovascular disorders Z13.6 and Encounter for screening for depression Z13.31 [place] [address] [facility] [address] [place] [address] 03/12/2025 Patric Jose Luis Bipolar disorder, current episode depressed, mild F31.31 ; Primary insomnia F51.01 ; Alzheimer's disease with late onset G30.1 ; CAM[place] (generalized anxiety disorder) F41.1 and Heart failure, unspecified I50.9 [place] [address] [facility] [address] [place] [address] 04/09/2025 Patric Jose Luis Bipolar disorder, current episode depressed, mild F31.31 ; Primary insomnia F51.01 ; Alzheimer's disease with late onset G30.1 ; CAM[place] (generalized anxiety disorder) F41.1 and Repeated falls R29.6 [facility] [place] [address] [facility] [address] [place] [address] 08/16/2024 Patric Jose Luis Generalized anxiety disorder F41.1 [place] [address] [facility] [address] [place] [address] 09/13/2024 Patric Jose Luis Generalized anxiety disorder F41.1 and Primary insomnia F51.[address] [facility] [address] [place] [address] 11/26/2024 Patric Jose Luis [place] [address] [facility] [address] [place] [address] 03/28/2025 Patric Jose Luis Assessments Encounter Date Diagnosis (ICD Code) Assessment Notes Treatment Notes Treatment Clinical Notes Section Notes 08/16/2024 Generalized anxiety disorder (ICD-10 - F41.1) [...] be confirmed. - Consider referral to a shot tube machine tender or ceramic painter for further evaluation and management. Bipolar Disorder [...] Healthcare Access - Assessment: The patient has [employer] insurance and is concerned about potential changes in network coverage, specifically mentioning [place] potentially going out of network. - Plan: [...] Plan: Encourage patient to follow up with shot tube machine tender and primary care physician for further evaluation [...] Support - Assessment: Patient is working with [employer] for Medicaid application, despite concerns about eligibility. [...] F31.31) 02/13/2025 Primary insomnia (ICD-10 - F51.01) 03/12/2025 Bipolar disorder, current episode depressed, mild (ICD-10 - F31.31) 03/12/2025 Primary insomnia (ICD-10 - F51.01) 04/09/2025 Bipolar disorder, current episode depressed, mild (ICD-10 - F31.31) History of bipolar disorder with current episode described as depressed, mild. Patient denied current depression or anxiety. Medication regimen reviewed and adjusted. - Continue venlafaxine and clonazepam. - Discontinue Vraylar. 04/09/2025 Primary insomnia (ICD-10 - F51.01) Patient reports generally adequate sleep, with occasional nighttime awakenings to use the bathroom. No acute sleep disturbances reported. - Continue current sleep hygiene and medication regimen. 04/09/2025 Alzheimer's disease with late onset (ICD-10 - [...] memory issues and adjust treatment as needed. 03/12/2025 Alzheimer's disease with late onset (ICD-10 [...] memory issues and adjust treatment as needed. 02/13/2025 Alzheimer's disease with late onset [...] Plan: Encourage patient to follow up with shot tube machine tender and primary care physician for further evaluation [...] well-being and provide support as needed. 06/14/2024 Cardiomyopathy, unspecified (ICD-10 - I42.9) Legal [...] Support - Assessment: Patient is working with [employer] for Medicaid application, despite concerns about eligibility. [...] be confirmed. - Consider referral to a shot tube machine tender or ceramic painter for further evaluation and management. Bipolar Disorder [...] Healthcare Access - Assessment: The patient has [employer] insurance and is concerned about potential changes in network coverage, specifically mentioning [place] potentially going out of network. - Plan: [...] be confirmed. - Consider referral to a shot tube machine tender or ceramic painter for further evaluation and management. Bipolar Disorder [...] Healthcare Access - Assessment: The patient has [employer] insurance and is concerned about potential changes in network coverage, specifically mentioning [place] potentially going out of network. - Plan: [...] in symptoms or concerns during this time. 04/12/2024 Alzheimer's disease with late onset (ICD-10 [...] Support - Assessment: Patient is working with [employer] for Medicaid application, despite concerns about eligibility. [...] Plan: Encourage patient to follow up with shot tube machine tender and primary care physician for further evaluation [...] clonazepam. - Assess progress in one month. 04/09/2025 [place] (generalized anxiety disorder) (ICD-10 - F41.1) [...] clonazepam. - Assess progress in one month. 04/09/2025 Repeated falls (ICD-10 - R29.6) Recent fall after getting up too quickly, resulting in a gash on the forehead and a bruise on the hand. Hospital admission followed the fall. Patient expresses frustration with the disruption to her routine. - Advised continued self-care and monitoring for any new symptoms. 02/13/2025 CAM[place] (generalized anxiety disorder) (ICD-10 - [...] clonazepam. - Assess progress in one month. 03/12/2025 Heart failure, unspecified (ICD-10 - I50.9) Patient reports shortness of breath related to congestive heart failure. Recent check-up indicated heart condition was fine. Patient remains worried about health. - Monitor symptoms of shortness of breath. - Consider medication adjustments if symptoms persist. 12/12/2024 Primary insomnia (ICD-10 - F51.01) 01/09/2025 [...] Plan: Encourage patient to follow up with shot tube machine tender and primary care physician for further evaluation [...] Support - Assessment: Patient is working with [employer] for Medicaid application, despite concerns about eligibility. [...] be confirmed. - Consider referral to a shot tube machine tender or ceramic painter for further evaluation and management. Bipolar Disorder [...] Healthcare Access - Assessment: The patient has [employer] insurance and is concerned about potential changes in network coverage, specifically mentioning [place] potentially going out of network. - Plan: [...] be confirmed. - Consider referral to a shot tube machine tender or ceramic painter for further evaluation and management. Bipolar Disorder [...] Healthcare Access - Assessment: The patient has [employer] insurance and is concerned about potential changes in network coverage, specifically mentioning [place] potentially going out of network. - Plan: [...] Support - Assessment: Patient is working with [employer] for Medicaid application, despite concerns about [...] Plan: Encourage patient to follow up with shot tube machine tender and primary care physician for further evaluation [...] Support - Assessment: Patient is working with [employer] for Medicaid application, despite concerns about eligibility. [...] be confirmed. - Consider referral to a shot tube machine tender or ceramic painter for further evaluation and management. Bipolar Disorder [...] Healthcare Access - Assessment: The patient has [employer] insurance and is concerned about potential changes in network coverage, specifically mentioning [place] potentially going out of network. - Plan: [...] Support - Assessment: Patient is working with [employer] for Medicaid application, despite concerns about eligibility. [...] be confirmed. - Consider referral to a shot tube machine tender or ceramic painter for further evaluation and management. Bipolar Disorder [...] Healthcare Access - Assessment: The patient has [employer] insurance and is concerned about potential changes in network coverage, specifically mentioning [place] potentially going out of network. - Plan: [...] be confirmed. - Consider referral to a shot tube machine tender or ceramic painter for further evaluation and management. Bipolar Disorder [...] Healthcare Access - Assessment: The patient has [employer] insurance and is concerned about potential changes in network coverage, specifically mentioning [place] potentially going out of network. - Plan: [...] Support - Assessment: Patient is working with [employer] for Medicaid application, despite concerns about [...] office of the Alzheimer's Association ( ; http://www.alz.o rg), the Alzheimer's Disease Education and Referral Center (ADEAR) ( ; http://www.jorge.n ih.gov/Alzheimer s/), Mood and Depression - Assessment: Patient reports [...] Plan: Encourage patient to follow up with shot tube machine tender and primary care physician for further evaluation [...] office of the Alzheimer's Association ( ; http://www.alz.o rg), the Alzheimer's Disease Education and Referral Center (ADEAR) ( ; http://www.jorge.n ih.gov/Alzheimer s/), Sciatica Pain - Assessment: Patient reports increased [...] office of the Alzheimer's Association ( ; http://www.alz.o rg), the Alzheimer's Disease Education and Referral Center (ADEAR) ( ; http://www.jorge.n ih.gov/Alzheimer s/), Anxiety - Assessment: Patient reports increased anxiety with elevated heart rate (84, usually 65). - Plan: - Continue current medications. - Monitor for changes in anxiety levels. Kidney Function - Assessment: Patient has a history of hospitalization due to Furosemide (Lasix) issue. Upcoming appointment with on site property manager on the . - Plan: - [...] member for money and food. Power of estate attorney is with brother Mauricio Pacheco. - Plan: - Encourage patient to discuss financial concerns with power of estate attorney and establish boundaries with family members. [...] cardiac device monitoring - Follow up with shot tube machine tender as scheduled in February Gambling Urges Assessment: [...] without a caregiver for 2 months. A automobile rental representative from an aging services organization has contacted [employer] [facility] [employer] to address this issue. Plan: - Follow up on the status of caregiver assignment through [employer] [facility] Disclaimer: This note has been transcribed using speech recognition software and serves as a reflection of the patient's visit. While efforts have been made to ensure accuracy, there may be errors, including drawing hand inaccuracies and misspellings of medication names. This document should not be considered a verbatim record, and any discrepancies should be verified with the provider. 01/09/2025 Other Medication Management and Access - Assessment: Patient reports discontinuation of Entresto due to loss of sample access and high clz-lw-bcswjo costs (approximately $600/month). This has led to [...] or reduced-cost medications. - Follow up with shot tube machine tender (Dr. Rodriguez) regarding medication changes and current [...] daily functioning. - Consider referral to social worker clinical for additional support if needed. Mood and [...] without using your hands.3. Strength Training Exercises- [id number]: rise from a chair repeatedly.- Wall push-ups: [...] drops or other treatments for dry eyes. 04/09/2025 Other Developed pneumonia during recent hospitalization following a fall. No current symptoms of pneumonia reported. - No new interventions required at this time. Plan Of Treatment Next Appt Details Provider Name:Patric Amaya , 05/01/2025 01:30:00 PM, [address], [address], [address], Provider Name:Patric Amaya , 06/11/2025 01:00:00 PM, [facility], [address], [address], Provider Name:Patric Amaya , 07/09/2025 01:00:00 PM, [facility], [address], [address], Insurance Providers Payer Name Payer Address Payer Phone Subscriber Number Group Number Insured Name Patient Relationship to Insured Coverage Start Date Coverage End Date [facility] Medicare Replacement/ Advantage - Ppo [address] [address] [place] [address] [id number] JAILENE MARTINO Self - patient is the [...] Vitamin B deficiency Vitamin D deficiency , Bipolar disorder, current episode depres sed, mild Insomnia History of pneumonia Surgical History Surgery Date(Month/Year) Implantation of cardiac defibrillator libby cook ([id number]) 04/12/2021 Hospitalization History Reason Date(Month/Year) Fall and pneumonia, a week ago monday
--- OUTSIDE RECORDS SUMMARY | 2025-04-10 13:28 | XMS_ITS | Encounter Summary ---
Author Organization [facility] Healthcare Address [address] [place] [address] Care Team Providers Care Rug Cleaner Hand Name Role Phone Bandar Gaffney MD Unavailable [phone] Dillan Reddy MD Primary Care Provide r Encounter Details Date Type Department Care Team (Late st Contact Info) Description 12/04/[address] [facility] Medical Group Cardiology [address] [facility] [address] [facility] [address] [place] [id number] Samy Ceja MD [address] [facility] [address] [place] [address] Social History Tobacco Use Types [...] often do you attend chur ch or mu-ism services? 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
--- OUTSIDE RECORDS SUMMARY | 2025-04-10 13:28 | XMS_ITS | Clinical Summary ---
Author Organization [facility] Address [address] [place] [address] Care Team Providers Care Timber Grader Name Role Phone Unavailable Primary Care Provider [...] Documents on File Type Date Recorded Patient Shotblaster Expl anation Advance Directives and Living Will 01/14/2016 12:00 AM ADVANCED DIRECTIVES
--- OUTSIDE RECORDS SUMMARY | 2025-04-10 13:28 | XMS_ITS | Encounter Summary ---
Author Organization [facility] Address [address] [facility] [address] [place] [address] Care Team Providers Care Pizza Delivery Driver Name Role Phone Lana Tovar MD Primary Care Provider + Lana Tovar MD Primary Care Provider + Bandar Gaffney MD Unavailable [phone] Dillan Reddy MD Primary Care Provide r Encounter Details Date Type Department Care Team (Late st Contact Info) Description 2016 Orders Only [facility] ProviderSaurabh MD [address] [place] [address] Social History Tobacco Use Types Packs/Day Years Used Date Smoking Tobacco: Never Alcohol Use Standard Drinks/Week Comments No 0 (1 standard drink = 0.6 oz pur e alcohol) Comments Unknown Sex and Gender Information Value Date Recorded Sex Assigned at Not on file Legal Sex Female 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
--- OUTSIDE RECORDS SUMMARY | 2025-04-10 13:29 | XMS_ITS | Encounter Summary ---
Author Organization [facility] Healthcare Address [address] [place] [address] Care Team Providers Care Training Program Manager Name Role Phone Lana Tovar MD Primary Care Provider + Bandar Gaffney MD Unavailable [phone] Dillan Reddy MD Primary Care Provide r Encounter Details Date Type Department Care Team (Late st Contact Info) Description 03/26/2018 Orders Only [facility] Health Information Management [address] [place] [id number] Scanning, Provider Social History Tobacco Use Types Packs/Day Years Used Date Smoking Tobacco: Never Smokeless Tobacco: Never Alcohol Use Standard Drinks/Week Comments No 0 (1 standard drink = 0.6 oz pur e alcohol) Comments Unknown Sex and Gender Information Value Date Recorded Sex Assigned at Not on file Legal Sex Female 2:33 AM 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
--- OUTSIDE RECORDS SUMMARY | 2025-04-10 13:29 | XMS_ITS | Encounter Summary ---
Author Organization [facility] Healthcare Address [address] [place] [address] Care Team Providers Care Health Worker Name Role Phone Lana Tovar MD Primary Care Provider + Bandar Gaffney MD Unavailable [phone] Dillan Reddy MD Primary Care Provide r Encounter Details Date Type Department Care Team (Late st Contact Info) Description 01/17/2018 Orders Only [facility] Health Information Management [address] [place] [id number] Scanning, Provider Social History Tobacco Use Types Packs/Day Years Used Date Smoking Tobacco: Never Alcohol Use Standard Drinks/Week Comments No 0 (1 standard drink = 0.6 oz pur e alcohol) Comments Unknown Sex and Gender Information Value Date Recorded Sex Assigned at Not on file 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
--- OUTSIDE RECORDS SUMMARY | 2025-04-10 13:29 | XMS_ITS ---
Author Organization [facility] Address [address] [place] [address] Care Team Providers Care Advertising Copywriter Name Role Phone Maureen URBINA, Masoud Primary Care Provider Un available Patric De Jesus Unavailable [phone] Allergies Allergen (clinical drug ingredient) Drug/Non Drug [...] Drug Allergy 01/12/2024 Active REASON FOR VISIT 1 month f/u Medications Medication SIG (Take, Route, Frequency, Duration) Notes Start Date End Date Status Furosemide 40 MG TAKE 1 TABLET BY JEREMIAS TH THREE TIMES A WEEK Oral; Duration: 84 Days Active Vraylar 1.5 MG 1 capsule at bedtime Oral every other day; Duration: 30 days Samples Active Venlafaxine HCl ER 37.5 MG 1 capsule with food Orally Once a day; Duration: 90 days Active Ondansetron HCl 4 MG TAKE 1 TABLET BY [facility] TWICE DAILY NEEDED Oral; Duration: 5 Days Active Donepezil HCl 10 MG 1 tablet at bedtime Oral Once a day; Duration: 90 days Active Famotidine 20 MG TAKE 1 TABLET BY JEREMIAS TWICE DAILY NEEDED Oral; Duration: 90 Days Active clonazePAM 0.5 MG 1 tablet Oral three times a day; Duration: 30 days 04/09/2025 Active Amiodarone HCl 200 MG Oral; Duration: 60 Days Active traZODone HCl 150 MG 1.5 tablet at bedti me Oral Once a day; Duration: 30 days 09/13/2024 Active traZODone HCl 150 MG 1.5 tablet at bedti me Oral Once a day; Duration: 90 days Active Spironolactone 25 MG Oral; Duration: 30 Days Active Warfarin Sodium 3 MG Oral 01/12/2024 Active Carvedilol 25 MG TAKE 1/2 (ONE-HALF) TABLET BY MOUTH TWICE DAILY WITH MEALS Oral; Duration: 30 Days Active rOPINIRole HCl 0.5 MG TAKE 1 TABLET BY M OUTH ONCE DAILY AT BEDTIME FOR 90 DAYS; Duration: 90 Active Cyanocobalamin 1000 MCG/ML INJECT 1ML INTRAMUSCULARLY ONCE EVERY MONTH Injection; Duration: 90 Days Active Social History Tobacco Use: Social [...] Problem Status W/U Status Risk Notes Problem Repeated falls (R29.6) Active confirmed Vital Signs Blood pressure systolic 130 mm Hg 04/09/20 25 Blood pressure diastolic 75 mm Hg 025 Height 65.00 in 04/09/2025 Height-cm 165.10 cm 04/09/2025 Encounters Encounter Location Date Provider Diagnosis [facility] [address] [facility] [address] [place] [address] 04/09/2025 Patric De Jesus Bipolar disorder, current episode depressed, mild F31.31 ; Primary insomnia F51.01 ; Alzheimer's disease with late onset G30.1 ; CAMDEN (generalized anxiety disorder) F41.1 and Repeated falls R29.6 Assessments Encounter Date Diagnosis (ICD Code) Assessment Notes Treatment Notes Treatment Clinical Notes Section Notes 04/09/2025 Bipolar disorder, current episode depressed, mild [...] memory issues and adjust treatment as needed. 04/09/2025 CAMDEN (generalized anxiety disorder) (ICD-10 - [...] self-care and monitoring for any new symptoms. 04/09/2025 Other Developed pneumonia during recent hospitalization following a fall. No current symptoms of pneumonia reported. - No new interventions required at this time. Plan Of Treatment Medication Medication Name Sig Start Date Stop Date Notes Venlafaxine HCl ER 37.5 MG 1 capsule wit h food Orally Once a day; Duration: 90 days Donepezil HCl 10 MG 1 tablet at bedtime Oral Once a day; Duration: 90 days clonazePAM 0.5 MG 1 tablet Oral three times a day; Duration: 30 days 04/09/2025 traZODone HCl 150 MG 1.5 tablet at bedti me Oral Once a day; Duration: 90 days Treatment Notes Assessment Notes Other Developed pneumonia during recent hospitalization following a fall. No current symptoms of pneumonia reported. - No new interventions required at this time. Next Appt Details Follow Up: 4 Weeks, 4 weeks, Reason: Follow Up Provider Name:Patric De Jesus , 05/01/2025 01:30:00 PM, [address], [place] [address], [place], [address], Provider Name:Patric De Jesus , 06/11/2025 01:00:00 PM, [facility], [place] [address], [place], [address], Provider Name:Patric De Jesus , 07/09/2025 01:00:00 PM, [facility] [address], [place] [address], [place], [address], Progress Notes * YI MARTINO KDOB:[birth year] (79 yo F)Acc No.[id number]:04/09/2025 Patient: YI BELTRAN Provider: S MJ DE JESUS MD :1945 A ge:79 Y S ex:Female Date:04/09/2025 Address:[address] [place], [place] [id number] Pcp:Masoud Reddy MD Subjective: * Chief Complaints: * 1 month f/u * HPI: H istory of Presenting Problem: Denies : Anxiety. Denies : Depression. advance care planning discuss Depression screening done Yi Martino, a 79-year-old female, presented for a chronic condition follow-up focused on her recent fall, medication management, and ongoing health concerns. She lives alone and receives support from senior services, but recent events have disrupted her routine. She described falling after getting up too quickly, which resulted in a gash on her forehead and a bruise on her hand. Following the fall, she was taken by ambulance to the hospital, where she was admitted and subsequently developed pneumonia. These events have left her frustrated, as they have complicated her daily life and recovery. She has been using cold packs to manage the pain and bruising in her hand. In discussing her sleep and mood, she reported that her sleep is generally adequate, aside from needing to get up at night to use the bathroom. She denied experiencing current depression or anxiety, though she acknowledged a history of these issues. She reflected on her age and the long-standing relationship with her provider, adding context to her overall health journey. Regarding medication management, she admitted to occasionally forgetting to take her medications, including missing her doses today. She discussed her current regimen, noting that she has stopped Vraylar and continues to take Trazodone, venlafaxine, and clonazepam. Her hand pain and bruising persist, which she attributes to her recent hospitalization. She continues to use cold packs as a strategy for relief. F unctional Status: Functional Status Assessment D ate of last completed Functional Status Assessment: 0 04/09/2025 F all Risk Assessment: O ne fall with injury in the past year P reno of Care: D ocumented T ype of fall plan of care: B alance, strength and gait training or instruction provided D epression screening: PHQ-9 L ittle interest [...] Intervention D epression Screening Findings N egative F ollow-Up for Depression P sychiatric follow-up S uicide Risk Assessment Performed - -date D epression Screening: CAMDEN-7 (2018 Edition) F eeling nervous, anxious, or on edge N ot at all N ot being able to stop or [...] ot at all T otal CAMDEN-7 Score 0 I f you checked any problems, how difficult have they made it for you to do your work, take care of things at home, or get along with other people? N ot difficult at all I nterpretation of Total ( 0 to 4) No Anxiety * Medical History: * Surgical History: I mplantation of cardiac defibrillator lead ([id number]) 04/12/2021 * Hospitalization/Major Diagno stic Procedure: F all and pneumonia, a week ago monday * Social History: T obacco Use: T obacco Control (Standard) T obacco use: N onsmoker M igrated Social History: M igrated Social History: Alcohol Intake: None 08/16/2018,Tobacco Years: Never smoker 08/16/2018,Smoking Status: 0 08/11/2023. D rug/Alcohol: A ELISEO-C (Standard) D id you have a drink containing alcohol in the past year? N o P oints 0 I nterpretation N egative M iscellaneous: A dvance Care Planning A re you your own decision-maker Yes , Do you have Power of Design Engineering Intern for Health or Medical? No. D iet: Avoids Red Meat Due To Nausea Living situation: Has A Caregiver Who Assists With Household Tasks Living situation: Lives Alone, Receives Visits From Senior Services. * Medications: T akingclonazePAM 0.5 MG Tablet 1 tablet Oral three times a day traZODone HCl 150 MG Tablet 1.5 tablet at bedtime Oral Once a day , Notes to Pharmacist: Last Ordered: 11/14/2024Venlafaxine HCl ER 37.5 MG Capsule Extended Release 24 Hour 1 capsule with food Orally Once a day , Notes to Pharmacist: Last Ordered: 11/14/2024yanocobalamin 1000 MCG/ML Solution INJECT 1ML INTRAMUSCULARLY ONCE EVERY MONTH Injection Carvedilol 25 MG Tablet TAKE 1/2 (ONE-HALF) TABLET BY MOUTH TWICE DAILY WITH MEALS Oral Spironolactone 25 MG Tablet Oral Warfarin Sodium 3 MG Tablet Oral rOPINIRole HCl 0.5 MG Tablet TAKE 1 TABLET BY MOUTH ONCE DAILY AT BEDTIME FOR 90 DAYS traZODone HCl 150 MG Tablet 1.5 tablet at bedtime Oral Once a day Famotidine 20 MG Tablet TAKE 1 TABLET BY MOUTH TWICE DAILY NEEDED Oral Amiodarone HCl 200 MG Tablet Oral Vraylar 1.5 MG Capsule 1 capsule at bedtime Oral every other day , Notes to Pharmacist: SamplesOndansetron HCl 4 MG Tablet TAKE 1 TABLET BY MOUTH TWICE DAILY NEEDED Oral Furosemide 40 MG Tablet TAKE 1 TABLET BY MOUTH THREE TIMES A WEEK Oral Donepezil HCl 10 MG Tablet TAKE 1 TABLET BY MOUTH ONCE DAILY AT BEDTIME Medication List reviewed and reconciled with the patientTaking clonazePAM 0.5 MG Tablet 1 tablet Oral three times a day Taking traZODone HCl 150 MG Tablet 1.5 tablet at bedtime Oral Once a day , Notes to Pharmacist: Last Ordered: 11/14/2024Taking Venlafaxine HCl ER 37.5 MG Capsule Extended Release 24 Hour 1 capsule with food Orally Once a day , Notes to Pharmacist: Last Ordered: 11/14/2024Taking Cyanocobalamin 1000 MCG/ML Solution INJECT 1ML INTRAMUSCULARLY ONCE EVERY MONTH Injection Taking Carvedilol 25 MG Tablet TAKE 1/2 (ONE-HALF) TABLET BY MOUTH TWICE DAILY WITH MEALS Oral Taking Spironolactone 25 MG Tablet Oral Taking Warfarin Sodium 3 MG Tablet Oral Taking rOPINIRole HCl 0.5 MG Tablet TAKE 1 TABLET BY MOUTH ONCE DAILY AT BEDTIME FOR 90 DAYS Taking traZODone HCl 150 MG Tablet 1.5 tablet at bedtime Oral Once a day Taking Famotidine 20 MG Tablet TAKE 1 TABLET BY MOUTH TWICE DAILY NEEDED Oral Taking Amiodarone HCl 200 MG Tablet Oral Taking Vraylar 1.5 MG Capsule 1 capsule at bedtime Oral every other day , Notes to Pharmacist: SamplesTaking Ondansetron HCl 4 MG Tablet TAKE 1 TABLET BY MOUTH TWICE DAILY NEEDED Oral Taking Furosemide 40 MG Tablet TAKE 1 TABLET BY MOUTH THREE TIMES A WEEK Oral Taking Donepezil HCl 10 MG Tablet TAKE 1 TABLET BY MOUTH ONCE DAILY AT BEDTIME Medication List reviewed and reconciled with the patient * Allergies: N SAIDS (NON-STEROIDAL ANTI-INFLAMMATORY DRUG): Allergy - Onset Date 01/12/2024tivan: Allergy - Onset Date 01/12/2024Lactose: Allergy - Onset Date 01/12/2024LaMICtal: Allergy - Onset Date 01/12/2024Vicodin: Allergy - Onset Date 01/12/2024Tramadol: Allergy - Onset Date 01/12/2024no[Allergies Verified] Objective: * Vitals: B P:130/75mm Hg, Ht: 65.00 in, Ht-cm: 165.10 cm. * Examination: G eneral Examination: M ental Status Examination The patient presented with an unsteady gait, requiring the use of a walker for ambulation. Her behavior was notable for occasional anxiety, as she reported experiencing anxiety once in a while, like today. The patient's mood was described as having one of them days, suggesting some distress or discomfort. Cognitively, she demonstrated intact recent memory, recalling her admission date and timeline accurately. The patient's thought process appeared generally linear and goal-directed, as evidenced by her ability to engage in coherent dialogue and provide relevant responses to questions. Her insight appeared fair, as she acknowledged forgetting to take her medications and recognized the need to take them. Judgment seemed somewhat impaired, as evidenced by her failure to take prescribed medications as scheduled. Assessment: * Assessment: 1. B ipolar disorder, current episode depressed, mild - F31.31 (Primary) 2 .?Primary insomnia - F51.01 3 . A lzheimer's disease with late onset - G30.1? 4. G AD (generalized anxiety disorder) - F41.1 5 . R epeated falls - R29.6 Plan: * Treatment: 2. P rimary insomnia Refill traZODone HCl Tablet, 150 MG, 1.5 tablet at bedtime, Oral, Once a day, 90 days, 135 Tablet, Refills 0. Clinical Notes: Patient reports generally adequate sleep, with occasional nighttime awakenings to use the bathroom. No acute sleep disturbances reported. - Continue current sleep hygiene and medication regimen. 3. A lzheimer's disease with late onset Refill Donepezil HCl Tablet, 10 MG, 1 tablet at bedtime, Oral, Once a day, 90 days, 90 Tablet, Refills 0. Clinical Notes: Patient reports difficulty with memory and cognition. Patient is planning to see an eye doctor due to vision concerns. - Continue current medication regimen including Donepezil. - Assess progress in one month. Patient reports feeling less sharp than usual. Considers reducing Donapazole to address fatigue. - Consider reducing Donapazole to address fatigue. - Monitor memory issues and adjust treatment as needed. 4. G AD (generalized anxiety disorder) Refill clonazePAM Tablet, 0.5 MG, 1 tablet, Oral, three times a day, 30 days, 90 Tablet, Refills 0.? Clinical Notes: Patient reports waking up nervous at night. Patient uses clonazepam to manage anxiety symptoms. Patient expresses desire to avoid additional medications. - Continue current medication regimen including clonazepam. - Assess progress in one month. Patient reports difficulty sleeping and feeling nervous. Patient uses clonazepam to manage insomnia symptoms. - Continue current medication regimen including clonazepam. - Assess progress in one month. 5. R epeated falls Clinical Notes: Recent fall after getting up too quickly, resulting in a gash on the forehead and a bruise on the hand. Hospital admission followed the fall. Patient expresses frustration with the disruption to her routine. - Advised continued self-care and monitoring for any new symptoms. 6. O thers Notes: Developed pneumonia during recent hospitalization following a fall. No current symptoms of pneumonia reported. - No new interventions required at this time. * Procedure Codes: 1 036F TOBACCO NON-PNRG32130 BEHAV ASSMT W/SCORE & DOCD/STAND INSTRUMENT * Preventive Medicine: Counseling: A dvance Care Planning Date of last Advance Care Planning:?____ MIPS Type of advance care directives: D iscussed with patient , does not have AD Screenings: D epression screening Have you had a recent depression screening? Y es * Follow Up: 4 Weeks, 4 weeks (Reason: Follow Up) * Billing Information: * Visit Code: 01247 OFFICE OUTPATIENT VISIT 25 MINUTES DETAILED HISTORY AND EXAM/MODERATE MEDICAL DECISION MAKING. * Procedure Codes: 1036F TOBACCO NON-USER. 02910 BEHAV ASSMT W/SCORE & DOCD/STAND INSTRUMENT. * Sign off status: Completed true * Provider: Beck DE JESUS MD Date: 0 04/09/2025 Generated for [place] donnelly/Danny/eTrobersmitting on: 0 04/10/2025 01:28 PM CDT History and Physical Notes * HPI (History of Present Illness) Category Sub-Category Detail Notes Category Not es History of Presenting Problem Anxiety advance care planning discuss Depression screening done Yi Martino, a 79-year-old female, presented for a chronic condition follow-up focused on her recent fall, medication management, and ongoing health concerns. She lives alone and receives support from senior services, but recent events have disrupted her routine. She described falling after getting up too quickly, which resulted in a gash on her forehead and a bruise on her hand. Following the fall, she was taken by ambulance to the hospital, where she was admitted and subsequently developed pneumonia. These events have left her frustrated, as they have complicated her daily life and recovery. She has been using cold packs to manage the pain and bruising in her hand. In discussing her sleep and mood, she reported that her sleep is generally adequate, aside from needing to get up at night to use the bathroom. She denied experiencing current depression or anxiety, though she acknowledged a history of these issues. She reflected on her age and the long-standing relationship with her provider, adding context to her overall health journey. Regarding medication management, she admitted to occasionally forgetting to take her medications, including missing her doses today. She discussed her current regimen, noting that she has stopped Vraylar and continues to take Trazodone, venlafaxine, and clonazepam. Her hand pain and bruising persist, which she attributes to her recent hospitalization. She continues to use cold packs as a strategy for relief. Depression Depression screening PHQ-9 Little inte rest or [...] Depression Intervention Depression Screening Findings: N egative Follow-Up for Depression: Psychiatric fo llow-up Suicide Risk Assessment Performed: --joel e Functional Status Functional Status Assessment D ate of last completed Functional Status Assessment:: 04/09/2025 Fall Risk Assessment:: One fall with inj ury in the past year Plan of Care:: Documented Type of fall plan of care:: Balance, strength and gait training or instruction provided Depression Screening CAMDEN-7 (2018 Edition) Feelin g nervous, anxious, or on edge: Not at all Not being able to stop or control [...] happen: Not at all Total CAMDEN-7 Score: 0 If you checked any problems, how difficult have they made it for you to do your work, take care of things at home, or get along with other people?: Not difficult at all Interpretation of Total: (0 to 4) No Anx iety Examination Category Sub-Category Detail Notes Category Not es General Examination Mental Status Examination The patient presented with an unsteady gait, requiring the use of a walker for ambulation. Her behavior was notable for occasional anxiety, as she reported experiencing anxiety once in a while, like today. The patient's mood was described as having one of them days, suggesting some distress or discomfort. Cognitively, she demonstrated intact recent memory, recalling her admission date and timeline accurately. The patient's thought process appeared generally linear and goal-directed, as evidenced by her ability to engage in coherent dialogue and provide relevant responses to questions. Her insight appeared fair, as she acknowledged forgetting to take her medications and recognized the need to take them. Judgment seemed somewhat impaired, as evidenced by her failure to take prescribed medications as scheduled.
[2025-04-10 14:34] LABS: INR 4.1; Prothrombin Time 38.1 Seconds (11.1-14.7)
== END 2025-04-10 13:25 | disposition home or self-care (01) ==
PROVIDERS: PCP Internal Medicine; Visit Provider Internal Medicine
DX: J18.9 Pneumonia, unspecified organism (principal); I50.9 Heart failure, unspecified
CPT/HCPCS: 36415; 85610

== ENCOUNTER 2025-04-11 12:49 | Emergency (ER) | payer MEDICARE, SELFPAY ==
--- NOTE | ~2025-04-11 | XR_ITS ---
AP lateral views of the left hip Clinical history: Pain Findings: No acute fracture or dislocation is seen. Osseous alignment is anatomic. Left hip joint jennifer ears intact. Soft tissues are unremarkable. Impression: No significant abnormality is seen. Reviewed, dictated and finalized at location . Impression: No significant abnormality is seen.
[2025-04-11 13:03] VITALS: BP 145/80; PULSE 75; RESP 16; TEMP 37.7; O2SAT 96
--- NOTE | 2025-04-11 13:07 | ED_ITS ---
HPI - Extremity Injury (Lower) General Chief Complaint: Extremity Injury, Lower Stated Complaint: L Hip Pain Time Seen by Provider: 04/11/25 12:51 Source: patient Mode of arrival: ambulatory Limitations: no limitations History of Present Illness HPI Narrative: Rocio is a 79-year-old female patient presenting to the clinic today with complaints of left hip pain status post fall on Monday. She reports pain is to the left posterior hip. She got her walker caught up in her bedroom and this caused her to fall. States she fell down directly onto her hip. Denies hitting her head, neck pain, or any loss of consciousness. Denies any other injuries from the fall. Using a wheeled walker. Related Data Home Medications ?Medication ?Instructions ?Recorded ?Confirmed ?Last Taken ?Type trazodone 150 mg tablet 150 mg PO HS 03/22/21 03/25/25 01/01/24 History venlafaxine 37.5 mg 37.5 mg PO DAILY 08/22/22 03/25/25 01/01/24 History capsule,extended release 24 hr (Effexor XR) rosuvastatin 40 mg tablet 40 mg PO DAILY 12/27/23 03/25/25 01/01/24 History amiodarone 200 mg tablet 400 mg PO DAILY 01/02/24 03/25/25 01/01/24 History clonazepam 0.5 mg tablet 0.5 mg PO TID 01/02/24 03/25/25 Unknown History levothyroxine 150 mcg tablet 150 mcg PO DAILY 01/02/24 03/25/25 01/01/24 History carvedilol 12.5 mg tablet 25 mg PO DAILY 12/24/24 03/25/25 Unknown History albuterol sulfate 90 mcg/actuation 1 puff inhalation Q4H PRN 03/25/25 03/25/25 Unknown History aerosol inhaler shortness of breath or wheezing cyanocobalamin (vitamin B-12) 1,000 mcg subcut MONTHLY 03/25/25 03/25/25 Unknown History 1,000 mcg/mL injection solution donepezil 10 mg tablet 10 mg PO HS 03/25/25 03/25/25 Unknown History famotidine 20 mg tablet 20 mg PO Q12H PRN reflux 03/25/25 03/25/25 Unknown History furosemide 40 mg tablet 40 mg PO 3XW 03/25/25 03/25/25 Unknown History losartan 50 mg tablet 50 mg PO DAILY 03/25/25 03/25/25 Unknown History ondansetron 4 mg disintegrating 8 mg PO Q12H PRN nausea and 03/25/25 03/25/25 Unknown History tablet vomiting spironolactone 25 mg tablet 25 mg PO DAILY 03/25/25 03/25/25 Unknown History Allergies Allergy/AdvReac Type Severity Reaction Status Date / Time codeine Allergy Unknown Unknown Verified 04/11/25 13:09 hydroxyzine Allergy Unknown Unknown Verified 04/11/25 13:09 lorazepam Allergy Unknown Unknown Verified 04/11/25 13:09 tramadol Allergy Unknown Unknown Verified 04/11/25 13:09 NSAIDS (Non-Steroidal AdvReac Unknown Nausea Verified 04/11/25 13:09 Anti-Inflamma sumatriptan AdvReac Unknown FELT Verified 04/11/25 13:09 HORRIBLE Review of Systems Review of Systems: Pertinent positives per HPI. Patient denies any fever, chills, rash, headache, visual changes, dizziness, cough, runny nose, sore throat, shortness of breath, chest pain, palpitations, nausea, vomiting, diarrhea, constipation, abdominal pain, or any urinary issues. [facility] Past Medical History Medical History (Updated 04/11/25 @ 13:38 by Neto Tovar APRN) Chronic anticoagulation Transient ischemic attack Gastroesophageal reflux disease Chronic kidney disease Depression with anxiety Deep venous thrombosis Heart failure with reduced ejection fraction EF was 20 to 25% in March 2021. Left bundle branch block Hyperlipidemia Hypertension Hypothyroidism Cardiomyopathy Bipolar disorder Surgical History Surgical History History of colon resection History of bilateral knee arthroplasty History of repair of left rotator cuff History of bladder suspension procedure History of tonsillectomy History of cardiac catheterization History of partial hysterectomy History of orthopedic surgery Family History Family History Father Hypertension Cerebrovascular accident Mother Family history of diabetes mellitus in first degree relative Family history of lung disease Family history of coronary artery disease Sibling Family history of diabetes mellitus in first degree relative Cardiomyopathy Son Family history of mental disorder Other Family history of alcoholism Family history of arthritis Family history of gout Social History Social History (Reviewed 04/11/25 @ 13:58 by BIANCA Benjamin Social History: Surrogate medical decision maker: Man Linton, bill. Code status: Full code. Smoking status: Never smoker Alcohol intake: never Substance use: never Substance use type: does not use Do You Feel Safe in your Home?: Yes Lack of Transportation: No Lack of Food: Never True Current Housing: I Have Housing Concerned About Future Housing: No Difficulty Paying Gas/Electric Bills: No Difficulty Paying for Meds: No Currently Unemployed: No Education: High School Diploma/GED Difficulty w/ Childcare or Family Care: No Living arrangements: with roommate(s) Additional living arrangements comments: . Has 1 child. Additional occupation/education comments: Retired from the [employer]. Spiritual care concerns: No Comments At the time of my signature, I reviewed and agree with the nursing past medical, surgical, social, and family history. There is no relevant family history pertinent to the patient complaint. Exam Narrative: General: Well-developed, well nourished, in no apparent distress Head: Normocephalic, atraumatic. Cardio: Regular rate and rhythm, s1 and s2 normal, no murmur appreciated. Resp: Clear to auscultation bilaterally, no rhonchi, rales, wheezing or rubs. Musculoskeletal: No deformity, no bruising or swelling noted, tender to palpation over the posterior left hip, grossly normal range of motion, muscle strength strong and equal, peripheral pulse strong, 2+ bilateral edema in lower extremities, no cyanosis, walking with a wheeled walker. Course Course Emergency Course: Portions of this record may have been created with voice recognition software. Level of Care: Express Care Visit Vital Signs Vital signs: Vital Signs Temperature 37.7 C H 04/11/25 13:03 Pulse Rate 75 04/11/25 13:03 Respiratory Rate 16 04/11/25 13:03 Blood Pressure 145/80 H 04/11/25 13:03 Pulse Oximetry 96 04/11/25 13:03 Temperature 37.7 C H 04/11/25 13:03 Pulse Rate 75 04/11/25 13:03 Respiratory Rate 16 04/11/25 13:03 Blood Pressure 145/80 H 04/11/25 13:03 Pulse Oximetry 96 04/11/25 13:03 Vital signs reviewed MDM - Extremity Injury (Lower) MDM Narrative Medical decision making narrative: At the time of visit patient is resting comfortably on the exam table. Patient appears to be nontoxic. complaints of left hip pain status post fall on Monday. She reports pain is to the left posterior hip. She got her walker caught up in her bedroom and this caused her to fall. States she fell down directly onto her hip. Denies hitting her head, neck pain, or any loss of consciousness. Denies any other injuries from the fall. Using a wheeled walker. On exam there is no bruising or swelling noted, ears to palpation over the left posterior hip. No cervical, thoracic, or lumbar spine pain with palpation, X-ray of the left hip was ordered. Diagnostics: Left hip x-ray performed and was negative in the clinic today. Plan: I suspect patient has left hip contusion. Supportive measures were discussed with the patient and they voiced understanding discharge instructions and agrees to treatment plan. Return precautions reviewed Differential Diagnosis Differential diagnosis: Likely fracture of hip and other (Hip contusion, soft tissue injury,) Imaging Data Radiologist's impression: ITS Impressions Hip X-Ray 04/11/25 13:32 Impression: No significant abnormality is seen. Discharge Plan Discharge Clinical Impression: Contusion of hip Qualifiers: Encounter type: initial encounter Laterality: left Qualified Code(s): S70.02XA - Contusion of left hip, initial encounter Fall Qualifiers: Encounter type: initial encounter Qualified Code(s): W19.XXXA - Unspecified fall, initial encounter Patient Disposition: Home Condition: Stable Instructions: Fall Prevention for Older Adults (ED), Contusion in Adults (ED) Additional Instructions: Left hip x-rays negative for any sign of fracture or malalignment. May take two extra-strength Tylenol (1000mg) every 8 hours as needed for pain May use heat or ice to the affected area May use blue emu, lidocaine patches, or asper cream to affected area- do not apply heat or ice directly over cream- can cause burn. Follow up with your PCP in 3-5 days if symptom persist. Patient Language: Chinese Prescriptions: No Action venlafaxine [Effexor XR] 37.5 mg capsule,extended release 24hr 37.5 mg PO DAILY trazodone 150 mg tablet 150 mg PO HS carvedilol 12.5 mg tablet 25 mg PO DAILY rosuvastatin 40 mg tablet 40 mg PO DAILY levothyroxine 150 mcg Tablet 150 mcg PO DAILY amiodarone 200 mg tablet 400 mg PO DAILY clonazepam 0.5 mg tablet 0.5 mg PO TID famotidine 20 mg tablet 20 mg PO Q12H PRN (Reason: reflux) losartan 50 mg tablet 50 mg PO DAILY spironolactone 25 mg tablet 25 mg PO DAILY albuterol sulfate 90 mcg/actuation HFA aerosol inhaler 1 puff INHALATION Q4H PRN (Reason: shortness of breath or wheezing) cyanocobalamin (vitamin B-12) 1,000 mcg/mL solution 1,000 mcg subcut MONTHLY donepezil 10 mg tablet 10 mg PO HS furosemide 40 mg tablet 40 mg PO 3XW Rx Instructions: -- ondansetron 4 mg tablet,disintegrating 8 mg PO Q12H PRN (Reason: nausea and vomiting) guaifenesin [Mucus Relief ER] 600 mg Tablet Extended Release 12hr 600 mg PO Q12HR Qty: 20 0RF warfarin 3 mg tablet 2 mg PO DAILY Qty: 30 0RF Follow-up/Referrals: PHYSICIAN,CYLINDER INSPECTOR [Primary Care Provider] - Time of Disposition: 13:38 Quality NIHSS Nursing Documentation ED NIHSS nursing documentation: reviewed/agree
== END 2025-04-11 13:40 | disposition home or self-care (01) ==
PROVIDERS: Emergency Provider Nurse Practitioner Family
DX: S70.02XA Contusion of left hip, initial encounter (principal); W18.00XA Striking against unspecified object with subsequent fall, initial encounter; I13.0 Hypertensive heart and chronic kidney disease with heart failure and stage 1 through stage 4 chronic kidney disease, or unspecified chronic kidney disease; N18.9 Chronic kidney disease, unspecified; I50.9 Heart failure, unspecified; K21.9 Gastro-esophageal reflux disease without esophagitis; Z86.73 Personal history of transient ischemic attack (TIA), and cerebral infarction without residual deficits; Z86.718 Personal history of other venous thrombosis and embolism; E78.5 Hyperlipidemia, unspecified; E03.9 Hypothyroidism, unspecified; I42.9 Cardiomyopathy, unspecified; F41.8 Other specified anxiety disorders; Z96.653 Presence of artificial knee joint, bilateral
CPT/HCPCS: 73502; 99213; G0463

== ENCOUNTER 2025-04-17 12:37 | Outpatient (CLI) | payer MEDICARE, SELFPAY ==
--- OUTSIDE RECORDS SUMMARY | 2025-04-17 12:40 | XMS_ITS | Clinical Summary ---
Author Organization [facility] Address [address] [place] [address] Phone Care Team Providers Care Clinical Exercise Specialist Name Role Phone Lana Tovar MD Primary [...] to complete this topic Insurance MEDICARE C [facility] Care Teams Clinical Exercise Specialist Relationship Specialty Start Date End Date Lana Tovar MD [address] [place] [id number] PCP - General Family Medicine 12/23/16
--- OUTSIDE RECORDS SUMMARY | 2025-04-17 12:40 | XMS_ITS | Encounter Summary ---
Author Organization [facility] Healthcare Address [address] [place] [address] Care Team Providers Care Grease Packer Name Role Phone Lana Tovar MD Primary Care Provider + Bandar Gaffney MD Unavailable [phone] Dillan Reddy MD Primary Care Provide r Encounter Details Date Type Department Care Team (Late st Contact Info) Description 03/26/2018 Orders Only [facility] Health Information Management [address] [place] [address] Scanning, Provider Social History Tobacco Use Types Packs/Day Years Used Date Smoking Tobacco: Never Smokeless Tobacco: Never Alcohol Use Standard Drinks/Week Comments No 0 (1 standard drink = 0.6 oz pur e alcohol) Comments Unknown Sex and Gender Information Value Date Recorded Sex Assigned at Not on file 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
--- OUTSIDE RECORDS SUMMARY | 2025-04-17 12:40 | XMS_ITS | Clinical Summary ---
Author Organization [facility] [address] Address [address] [place] [address] Care Team Providers Care Garnett Machine Operator Helper Name Role Phone Bandar Gaffney MD Unavailable [phone] Dillan Reddy MD Primary Care Provide r [...] in situ 04/13/2021 Overview (04/21/2023): Dodge DDD [place] BI-V ICD imp on 04/12/21 for DCM, [...] Description 02/19/2025 1:30 PM CDT Ancillary Procedure [facility] [address] [place] [phone] Dilated cardiomyopathy (HCC); VT (ventricular tachycardia) (HCC); ICD (implantable cardioverter-defibrill ator), biventricular, in situ; Paroxysmal atrial fibrillation (HCC) 02/10/2025 Telephone [facility] [address] [place] [phone] Samy Ceja MD from Last 3 [...] oz pur e alcohol) Social Connection and Isolation Panel Answer Date Recorded In a typical week, how many times do you talk on the phone with family, friends, or neighbors? More than three times a week 04/13/2021 How often do you get togethe r with friends or relatives? More than three times a week 04/13/2021 How often do you attend chur ch or episcopal services? 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 Gender Identity Not on file Sexual Orientation [...] 05/15/2018, 11/2015 Medical Devices Implanted Type Area Coordinator Cardiopulmonary Services Device Identifier Shelf Expiration Date Model / Serial / Lot Dodge Vascular [id number] Defib Cardiac [id number] [place] Hf Df4 Is-4 Is-1 Cnctr - [id number] - [id number] Implanted:Qty: 1 on 04/12/2021 by Bandar Gaffney MD at [facility] ICD [employer] Vascular [id number] 02/01/2023 C [id number] / [id number] / [employer] 7120q/65 Durata 7fr 65cm 2 Coil Df-4 True Bipolar Active Fixation - [id number] - [id number] Implanted:Qty: 1 on 04/12/2021 by Bandar Gaffney MD at [facility] Lead [employer] [id number] 02/01/2022 7120Q/65 / [id number] / [employer] 2088tc/52 Tendril Sts 6fr 52cm Is-1 Connector Active Fixation Bipolar Soft - [id number] - [id number] Implanted:Qty: 1 on 04/12/2021 by Bandar Gaffney MD at [facility] Lead [employer] [id number] 03/03/2024 2088TC/52 / [id number] / [employer] 1458q/86 Quartet 5fr 30mea37ta 4 Electrode Is-4 Connector Steerable Tip - [id number] - [id number] Implanted:Qty: 1 on 04/12/2021 by Bandar Gaffney MD at [facility] Lead [employer] [id number] 02/02/2024 1458Q/86 / [id number] / Procedures Procedure Name Priority Date/Time Associated [...] Narrative 02/25/2025 12:51 PM CDT Dodge DDD [place] BI-V ICD imp on 04/12/21 for DCM, [...] See scanned report. Office device f/u 05/27/2026. [place] remote f/u 05/27/2025. Dulce Gutierrez, CLARITZA Samy Ceja MD [facility] CARDIAC SERVICES PROC EDURES Final Result from Last [address] [place] [address] [facility] MEDICARE ADVANTAGE [facility] [place] [address] [facility] MEDICARE ADVANTAGE Member Subscriber Plan / Payer ( fective 2016-Present) Name:YI MARTINO Relation to Subscriber:Self Name:Yi Martino Payer ID:[id number] (NAIC) Type:[facility] MEDICARE Address: [place] [id number] [place] [phone] Advance Directives For more information, please contact: [phone] * Full Code (Latest Code Status on File) Date Activated Date Inactivated Comments 03/23/2023 7:04 AM 03/26/2023 7:27 PM Care Teams Garnett Machine Operator Helper Relationship Specialty Start Date End Date Dillan Reddy MD [address] [facility] [address] [place] [address] PCP - General Internal Medicine 11/09/23 Bandar Gaffney MD Consulting Physician Cardiology 04/13/21
--- OUTSIDE RECORDS SUMMARY | 2025-04-17 12:40 | XMS_ITS | Encounter Summary ---
Author Organization [facility] Healthcare Address [address] [place] [address] Care Team Providers Care Airline Lounge Receptionist Name Role Phone Lana Tovar MD Primary Care Provider + Bandar Gaffney MD Unavailable [phone] Dillan Reddy MD Primary Care Provide r Encounter Details Date Type Department Care Team (Late st Contact Info) Description 01/17/2018 Orders Only [facility] Health Information Management [address] [place] [address] Scanning, Provider Social History Tobacco Use Types Packs/Day Years Used Date Smoking Tobacco: Never Alcohol Use Standard Drinks/Week Comments No 0 (1 standard drink = 0.6 oz pur e alcohol) Comments Unknown Sex and Gender Information Value Date Recorded Sex Assigned at Not on file 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
--- OUTSIDE RECORDS SUMMARY | 2025-04-17 12:40 | XMS_ITS | Encounter Summary ---
Author Organization [facility] Healthcare Address [address] [place] [address] Care Team Providers Care Janitorial Cleaner Name Role Phone Bandar Gaffney MD Unavailable Dillan Reddy MD Primary Care Provide r Encounter Details Date Type Department Care Team (Late st Contact Info) Description 12/04/[address] [facility] Group Cardiology [address] [facility] [address] [facility] [address] [place] [phone] Samy Ceja MD [address] [facility] [address] [place] [address] Social History Tobacco Use Types [...] often do you attend chur ch or tenriism services? 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
--- OUTSIDE RECORDS SUMMARY | 2025-04-17 12:40 | XMS_ITS | Encounter Summary ---
Author Organization [facility] Address [address] [facility] [address] [place] [address] Care Team Providers Care Sanforizer Name Role Phone Lana Tovar MD Primary Care Provider + Lana Tovar MD Primary Care Provider + Bandar Gaffney MD Unavailable Dillan Reddy MD Primary Care Provide r Encounter Details Date Type Department Care Team (Late st Contact Info) Description 2016 Orders Only [facility] ProviderSaurabh MD [address] [place] [address] Social History Tobacco Use Types Packs/Day Years Used Date Smoking Tobacco: Never Alcohol Use Standard Drinks/Week Comments No 0 (1 standard drink = 0.6 oz pur e alcohol) Comments Unknown Sex and Gender Information Value Date Recorded Sex Assigned at Not on file 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
--- OUTSIDE RECORDS SUMMARY | 2025-04-17 12:40 | XMS_ITS | Clinical Summary ---
Author Organization [facility] Address [address] [place] [address] Care Team Providers Care Manuscripts Curator Name Role Phone Unavailable Primary Care Provider [...] Documents on File Type Date Recorded Patient Auto Body Worker Expl anation Advance Directives and Living Will 01/14/2016 12:00 AM ADVANCED DIRECTIVES
[2025-04-17 13:39] LABS: INR 4.1; Prothrombin Time 38.4 Seconds (11.1-14.7)
== END 2025-04-17 12:38 | disposition home or self-care (01) ==
PROVIDERS: Visit Provider Internal Medicine
DX: Z79.01 Long term (current) use of anticoagulants (principal)
CPT/HCPCS: 36415; 85610

== ENCOUNTER 2025-04-18 13:13 | Outpatient (CLI) | payer MEDICARE, SELFPAY ==
--- OUTSIDE RECORDS SUMMARY | 2025-04-18 13:21 | XMS_ITS | Patient Health Record ---
Author Organization [facility] As [employer] [facility] Address [address] [facility] [address] [place] [address] Care Team Providers Care Geoscience Technician Name Role Phone Maureen URBINA, Masoud Primary Care Provider Un available Patric Amaya Unavailable [phone] Allergies Allergen (clinical drug ingredient) Drug/Non Drug [...] Furosemide 40 MG TAKE 1 TABLET BY [facility] THREE TIMES A WEEK Oral; Duration: 84 [...] HCl 4 MG TAKE 1 TABLET BY [facility] TWICE DAILY NEEDED Oral; Duration: 5 [...] Vaccine 1st dose Unknown 02/22/2022 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 [employer] Covid-19 Vac cine 2nd dose Unknown 05/26/2022 [...] Problem Bipolar affective disorder, currently depressed, mild (341038709) Bipolar disorder, current episode depressed, mild (F31.31) Active confirmed Problem Generalized anxiety disorder (82868539) Generalized anxiety disorder (F41.1) Active confirmed Problem Primary insomnia (4214455) Primary insomnia (F51.01) Active confirmed Problem Alzheimer's disease with late onset (828373939) Alzheimer's disease with late onset (G30.1) Active confirmed Problem Cardiomyopathy (45869970) Cardiomyopathy, unspecified (I42.9) Active confirmed Problem Heart failure (33436212) Heart failure, unspecified (I50.9) Active confirmed Problem Recurrent falls (903339435) Repeated falls (R29.6) Active confirmed Problem Generalized anxiety disorder (62745302) CAMDEN (generalized anxiety disorder) (F41.1) Active confirmed Problem Hyperlipidemia (55544715) Hyperlipidemia (E78.5) 03/22/20 21 Active confirmed Problem Hypothyroidism (59856923) Hypothyroidism (E03.9) 03/22/20 Active confirmed Problem Cardiomyopathy (35375942) Cardiomyopathy (I42.9) 03/22/20 21 Active confirmed Problem Left bundle branch block (27319240) Left bundle branch block (LBBB) (I44.7) 03/23/20 Active confirmed Problem Ventricular tachycardia (disorder) (36128096) VT (ventricular tachycardia) (I47.20) 04/12/20 21 Active confirmed Problem Automatic implantable cardiac defibrillator in situ (706240845) ICD (implantable cardioverter-defi brillator), biventricular, in situ (Z95.810) 04/21/20 23 Active confirmed Vital Signs Heart Rate 62 /min 03/12/2025 Height-cm 165.10 cm 04/09/2025 Blood pressure diastolic 75 mm Hg 04/09/2025 Weight-kg 81.65 kg 02/13/2025 Height 65.00 in 04/09/2025 Blood pressure systolic 130 mm Hg 04/09/2025 Weight 180, 180.0 lbs 02/13/2025 BMI 29.95 kg/m2 02/13/2025 Encounters Encounter Location Date Provider Diagnosis [facility] [employer] [address] [address] 05/13/2024 Patric Amaya Bipolar disorder, current episode depressed, mild F31.31 ; Cardiomyopathy, unspecified I42.9 ; Primary insomnia F51.01 ; Alzheimer's disease with late onset G30.1 and CAMDEN (generalized anxiety disorder) F41.1 [facility] [employer] [address] 06/14/2024 Patric Jose Luis Bipolar disorder, current episode depressed, mild F31.31 ; Cardiomyopathy, unspecified I42.9 ; Primary insomnia F51.01 ; Alzheimer's disease with late onset G30.1 ; CAMDEN (generalized anxiety disorder) F41.1 ; Hyperlipidemia E78.5 ; Left bundle branch block (LBBB) I44.7 and Hypothyroidism E03.9 [facility] [employer] [address] 07/15/2024 Patric Jose Luis Bipolar disorder, current episode depressed, mild F31.31 ; Cardiomyopathy, unspecified I42.9 ; Primary insomnia F51.01 ; Alzheimer's disease with late onset G30.1 ; CAMDEN (generalized anxiety disorder) F41.1 ; Hyperlipidemia E78.5 ; Left bundle branch block (LBBB) I44.7 and Hypothyroidism E03.9 [facility] [employer] [place] [id number] [facility] [address] [address] 09/19/2024 Patric Jose Luis Bipolar disorder, current episode depressed, mild F31.31 ; Cardiomyopathy, unspecified I42.9 ; Primary insomnia F51.01 ; Alzheimer's disease with late onset G30.1 ; CAMDEN (generalized anxiety disorder) F41.1 ; Hyperlipidemia E78.5 ; Left bundle branch block (LBBB) I44.7 and Hypothyroidism E03.9 [facility] [employer] [address] [facility] [address] [place] [address] 10/17/2024 Patric Jose Luis Bipolar disorder, current episode depressed, mild F31.31 ; Primary insomnia F51.01 ; Alzheimer's disease with late onset G30.1 ; CAMDEN (generalized anxiety disorder) F41.1 ; Hyperlipidemia E78.5 and Hypothyroidism E03.9 [facility] [address] [facility] [address] [place] [address] 11/14/2024 Patric Jose Luis Encounter for screen ing for depression Z13.31 ; Encounter for screening for cardiovascular disorders Z13.6 ; Bipolar disorder, current episode depressed, mild F31.31 ; Primary insomnia F51.01 ; Alzheimer's disease with late onset G30.1 ; CAMDEN (generalized anxiety disorder) F41.1 ; Hyperlipidemia E78.5 and Hypothyroidism E03.9 [facility] [employer] [address] [facility] [address] [place] [address] 12/12/2024 Patric Jose Luis Encounter for screen ing for cardiovascular disorders Z13.6 ; Encounter for screening for depression Z13.31 ; Bipolar disorder, current episode depressed, mild F31.31 ; Primary insomnia F51.01 ; Alzheimer's disease with late onset G30.1 ; CAMDEN (generalized anxiety disorder) F41.1 ; Hyperlipidemia E78.5 and Hypothyroidism E03.9 [facility] [employer] [address] [facility] [address] [place] [address] 01/09/2025 Patric Jose Luis Bipolar disorder, current episode depressed, mild F31.31 ; Primary insomnia F51.01 ; Alzheimer's disease with late onset G30.1 ; CAMDEN (generalized anxiety disorder) F41.1 ; Negative depression screening Z13.31 and Encounter for screening for cardiovascular disorders Z13.6 [facility] [employer] [address] [facility] [address] [place] [address] 02/13/2025 Patric Jose Luis Bipolar disorder, current episode depressed, mild F31.31 ; Primary insomnia F51.01 ; Alzheimer's disease with late onset G30.1 ; Dietary counseling and surveillance Z71.3 ; CAMDEN (generalized anxiety disorder) F41.1 ; Encounter for screening for cardiovascular disorders Z13.6 and Encounter for screening for depression Z13.[address] [facility] [address] [place] [address] 03/12/2025 Patric Jose Luis Bipolar disorder, current episode depressed, mild F31.31 ; Primary insomnia F51.01 ; Alzheimer's disease with late onset G30.1 ; CAMDEN (generalized anxiety disorder) F41.1 and Heart failure, unspecified I50.[address] [address] 04/09/2025 Patric Jose Luis Bipolar disorder, current episode depressed, mild F31.31 ; Primary insomnia F51.01 ; Alzheimer's disease with late onset G30.1 ; CAMDEN (generalized anxiety disorder) F41.1 and Repeated falls R29.[address] [address] 08/16/2024 Patric Jose Luis Generalized anxiety disorder F41.[address] [address] 09/13/2024 Patric Jose Luis Generalized anxiety disorder F41.1 and Primary insomnia F51.[address] [address] 11/26/2024 Patric Jose Luis [address] [address] 03/28/2025 Patric Jose Luis Assessments Encounter Date [...] symptoms or concerns during this time. 06/14/2024 Bipolar disorder, current episode depressed, mild [...] Support - Assessment: Patient is working with [employer] for Medicaid application, despite concerns about eligibility. [...] Plan: Encourage patient to follow up with motel manager and primary care physician for further evaluation [...] be confirmed. - Consider referral to a motel manager or manager critical care unit for further evaluation and management. Bipolar Disorder [...] Healthcare Access - Assessment: The patient has M-DISC insurance and is concerned about potential changes in network coverage, specifically mentioning [employer] potentially going out of network. - Plan: [...] assistive devices or physical therapy if needed. 01/09/2025 Bipolar disorder, current episode depressed, mild [...] Continue current sleep hygiene and medication regimen. 12/12/2024 Encounter for screening for cardiovascular disorders (ICD-10 - Z13.6) 11/14/2024 Encounter for screening for depression (ICD-10 - Z13.31) 10/17/2024 Bipolar disorder, current episode depressed, mild (ICD-10 - F31.31) Bipolar Disorder: Care Instructions material was published 10/17/2024 Primary insomnia (ICD-10 - F51.01) 11/14/2024 Encounter for screening for cardiovascular disorders (ICD-10 - Z13.6) 10/17/2024 Alzheimer's disease with late onset (ICD-10 - G30.1) 12/12/2024 Encounter for screening for depression (ICD-10 - Z13.31) 04/09/2025 Alzheimer's disease with late onset (ICD-10 [...] month. 01/09/2025 Primary insomnia (ICD-10 - F51.01) 05/13/2024 Cardiomyopathy, unspecified (ICD-10 - I42.9) Mood [...] Plan: Encourage patient to follow up with motel manager and primary care physician for further evaluation [...] be confirmed. - Consider referral to a motel manager or manager critical care unit for further evaluation and management. Bipolar Disorder [...] Healthcare Access - Assessment: The patient has M-DISC insurance and is concerned about potential changes in network coverage, specifically mentioning [employer] potentially going out of network. - Plan: [...] devices or physical therapy if needed. 09/19/2024 Cardiomyopathy, unspecified (ICD-10 - I42.9) [...] symptoms or concerns during this time. 06/14/2024 Primary insomnia (ICD-10 - F51.01) Legal [...] Support - Assessment: Patient is working with [employer] for Medicaid application, despite concerns about eligibility. [...] Plan: Encourage patient to follow up with motel manager and primary care physician for further evaluation [...] I want to see your smiling face. 01/09/2025 Alzheimer's disease with late onset (ICD-10 - G30.1) 07/15/2024 Primary insomnia (ICD-10 - F51.01) Shortness [...] be confirmed. - Consider referral to a motel manager or manager critical care unit for further evaluation and management. Bipolar Disorder [...] Healthcare Access - Assessment: The patient has M-DISC insurance and is concerned about potential changes in network coverage, specifically mentioning [employer] potentially going out of network. - Plan: [...] devices or physical therapy if needed. 02/13/2025 Dietary counseling and surveillance (ICD-10 - Z71.3) 04/09/2025 CAMDEN (generalized anxiety disorder) (ICD-10 - [...] - Assess progress in one month. 12/12/2024 Bipolar disorder, current episode depressed, mild (ICD-10 - F31.31) 10/17/2024 CAMDEN (generalized anxiety disorder) (ICD-10 - F41.1) 03/12/2025 CAMDEN (generalized anxiety disorder) (ICD-10 - [...] clonazepam. - Assess progress in one month. 11/14/2024 Bipolar disorder, current episode depressed, mild (ICD-10 - F31.31) Bipolar Disorder: Care Instructions material was published 11/14/2024 Primary insomnia (ICD-10 - F51.01) 02/13/2025 CAMDEN (generalized anxiety disorder) (ICD-10 - [...] clonazepam. - Assess progress in one month. 10/17/2024 Hyperlipidemia (ICD-10 - E78.5) 12/12/2024 Primary insomnia (ICD-10 - F51.01) 03/12/2025 Heart failure, unspecified (ICD-10 - I50.9) Patient reports shortness of breath related to congestive heart failure. Recent check-up indicated heart condition was fine. Patient remains worried about health. - Monitor symptoms of shortness of breath. - Consider medication adjustments if symptoms persist. 04/09/2025 Repeated falls (ICD-10 - R29.6) Recent fall after getting up too quickly, resulting in a gash on the forehead and a bruise on the hand. Hospital admission followed the fall. Patient expresses frustration with the disruption to her routine. - Advised continued self-care and monitoring for any new symptoms. 01/09/2025 CAMDEN (generalized anxiety disorder) (ICD-10 - F41.1) 07/15/2024 Alzheimer's disease with late onset (ICD-10 [...] be confirmed. - Consider referral to a motel manager or manager critical care unit for further evaluation and management. Bipolar Disorder [...] Healthcare Access - Assessment: The patient has M-DISC insurance and is concerned about potential changes in network coverage, specifically mentioning [employer] potentially going out of network. - Plan: [...] Plan: Encourage patient to follow up with motel manager and primary care physician for further evaluation [...] Support - Assessment: Patient is working with [employer] for Medicaid application, despite concerns about eligibility. [...] symptoms or concerns during this time. 07/15/2024 CAMDEN (generalized anxiety disorder) (ICD-10 - [...] be confirmed. - Consider referral to a motel manager or manager critical care unit for further evaluation and management. Bipolar Disorder [...] Healthcare Access - Assessment: The patient has M-DISC insurance and is concerned about potential changes in network coverage, specifically mentioning [employer] potentially going out of network. - Plan: [...] Plan: Encourage patient to follow up with motel manager and primary care physician for further evaluation [...] Support - Assessment: Patient is working with [employer] for Medicaid application, despite concerns about [...] monitor progress and address any new concerns. 01/09/2025 Negative depression screening (ICD-10 - Z13.31) 02/13/2025 Encounter for screening for cardiovascular disorders (ICD-10 - Z13.6) 12/12/2024 Alzheimer's disease with late onset (ICD-10 - G30.1) 10/17/2024 Hypothyroidism (ICD-10 - E03.9) 11/14/2024 Alzheimer's disease with late onset (ICD-10 - G30.1) 11/14/2024 CAMDEN (generalized anxiety disorder) (ICD-10 - F41.1) 12/12/2024 CAMDEN (generalized anxiety disorder) (ICD-10 - F41.1) 02/13/2025 Encounter for screening for depression (ICD-10 - Z13.31) 01/09/2025 Encounter for screening for cardiovascular disorders (ICD-10 - Z13.6) 06/14/2024 Hyperlipidemia (ICD-10 - E78.5) Legal Issues [...] Support - Assessment: Patient is working with [employer] for Medicaid application, despite concerns about eligibility. [...] be confirmed. - Consider referral to a motel manager or manager critical care unit for further evaluation and management. Bipolar Disorder [...] Healthcare Access - Assessment: The patient has M-DIS[employer] insurance and is concerned about potential changes in network coverage, specifically mentioning [employer] potentially going out of network. - Plan: [...] devices or physical therapy if needed. 09/19/2024 Hyperlipidemia (ICD-10 - E78.5) Sciatica Pain [...] Support - Assessment: Patient is working with [employer] for Medicaid application, despite concerns about eligibility. [...] be confirmed. - Consider referral to a motel manager or manager critical care unit for further evaluation and management. Bipolar Disorder [...] Healthcare Access - Assessment: The patient has M-DISC insurance and is concerned about potential changes in network coverage, specifically mentioning [employer] potentially going out of network. - Plan: [...] this time. 12/12/2024 Hyperlipidemia (ICD-10 - E78.5) 11/14/2024 Hyperlipidemia (ICD-10 - E78.5) 11/14/2024 Hypothyroidism (ICD-10 - E03.9) 12/12/2024 Hypothyroidism (ICD-10 - E03.9) 07/15/2024 Hypothyroidism (ICD-10 - E03.9) Shortness of [...] be confirmed. - Consider referral to a motel manager or manager critical care unit for further evaluation and management. Bipolar Disorder [...] Healthcare Access - Assessment: The patient has M-DISC insurance and is concerned about potential changes in network coverage, specifically mentioning [employer] potentially going out of network. - Plan: [...] devices or physical therapy if needed. 09/19/2024 Hypothyroidism (ICD-10 - E03.9) Sciatica Pain [...] symptoms or concerns during this time. 06/14/2024 Hypothyroidism (ICD-10 - E03.9) Legal Issues [...] Support - Assessment: Patient is working with [employer] for Medicaid application, despite concerns about eligibility. [...] Plan: Encourage patient to follow up with motel manager and primary care physician for further evaluation [...] to Furosemide (Lasix) issue. Upcoming appointment with manager it security on the . - Plan: - Monitor [...] member for money and food. Power of bankruptcy attorney is with brother Mauricio Pacheco. - Plan: - Encourage patient to discuss financial concerns with power of bankruptcy attorney and establish boundaries with family members. [...] cardiac device monitoring - Follow up with motel manager as scheduled in February [employer] Assessment: [...] without a caregiver for 2 months. A sales representative cash registers from an aging services organization has contacted [employer] to address this issue. Plan: - Follow up on the status of caregiver assignment through [employer] Disclaimer: This note has been transcribed using speech recognition software and serves as a reflection of the patient's visit. While efforts have been made to ensure accuracy, there may be errors, including intern inaccuracies and misspellings of medication names. This document should not be considered a verbatim record, and any discrepancies should be verified with the provider. 01/09/2025 Other Medication Management and Access - Assessment: Patient reports discontinuation of Entresto due to loss of sample access and high otc-jm-yaaxfz costs (approximately $600/month). This has led to [...] or reduced-cost medications. - Follow up with motel manager (Dr. Rodriguez) regarding medication changes and current [...] daily functioning. - Consider referral to social professionals for additional support if needed. Mood and [...] without using your hands.3. Strength Training Exercises- Uon-te-lugzh: rise from a chair repeatedly.- Wall push-ups: [...] Of Treatment Next Appt Details Provider Name:Patric Marley Jose Luis , 05/01/2025 01:30:00 PM, [address] [facility], [address], [address], Provider Name:Patric Amaya , 06/11/2025 01:00:00 PM, [address], [address], [address], Provider Name:Patric Amaya , 07/09/2025 01:00:00 PM, [address], [address], [address], Insurance Providers Payer Name Payer Address Payer Phone Subscriber Number Group Number Insured Name Patient Relationship to Insured Coverage Start Date Coverage End Date [employer] Medicare Replacement/ Advantage - Ppo [address] [address] [place] [address] [id number] JAILENE MARTINO Self - patient is the [...] Date(Month/Year) Implantation of cardiac defibrillator libby cook ([id number]) 04/12/2021 Hospitalization History Reason Date(Month/Year) Fall and pneumonia, a week ago monday
--- OUTSIDE RECORDS SUMMARY | 2025-04-18 13:22 | XMS_ITS | Clinical Summary ---
Author Organization [facility] Address [address] [place] [address] Care Team Providers Care Supervisor Word Processing Name Role Phone Unavailable Primary Care Provider [...] Documents on File Type Date Recorded Patient Public Health Representative Expl anation Advance Directives and Living Will 01/14/2016 12:00 AM ADVANCED DIRECTIVES
--- OUTSIDE RECORDS SUMMARY | 2025-04-18 13:22 | XMS_ITS | Clinical Summary ---
Author Organization [facility] [address] Address [address] [place] [address] Care Team Providers Care Welder Fitter Arc Name Role Phone Bandar Gaffney MD Unavailable [phone] Dillan Reddy MD Primary Care Provide r [...] in situ 04/13/2021 Overview (04/21/2023): Dodge DDD [place] BI-V ICD imp on 04/12/21 for DCM, [...] 02/19/2025 1:30 PM CDT Ancillary Procedure [facility] [address] [place] [phone] Dilated cardiomyopathy (HCC); VT (ventricular tachycardia) (HCC); ICD (implantable cardioverter-defibrill ator), biventricular, in situ; Paroxysmal atrial fibrillation (HCC) 02/10/2025 Telephone [facility] [address] [place] [address] Samy Ceja MD from Last 3 [...] often do you attend chur ch or pentecostalism services? 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 Gender Identity Not on file Sexual Orientation [...] 05/15/2018, 11/2015 Medical Devices Implanted Type Area Traveling Freight Agent Device Identifier Shelf Expiration Date Model / Serial / Lot Dodge Vascular [id number] Defib Cardiac [id number] [place] Hf Df4 Is-4 Is-1 Cnctr - [id number] - [id number] Implanted:Qty: 1 on 04/12/2021 by Bandar Gaffney MD at [facility] ICD [employer] Vascular [id number] 02/01/2023 C [id number] / [id number] / [employer] 7120q/65 Durata 7fr 65cm 2 Coil Df-4 True Bipolar Active Fixation - [id number] - [id number] Implanted:Qty: 1 on 04/12/2021 by Bandar Gaffney MD at [facility] Lead [employer] [id number] 02/01/2022 7120Q/65 / [id number] / [employer] 2088tc/52 Tendril Sts 6fr 52cm Is-1 Connector Active Fixation Bipolar Soft - [id number] - [id number] Implanted:Qty: 1 on 04/12/2021 by Bandar Gaffney MD at [facility] Lead [employer] [id number] 03/03/2024 2088TC/52 / [id number] / [employer] 1458q/86 Quartet 5fr [id number] 4 Electrode Is-4 Connector Steerable Tip - [id number] - [id number] Implanted:Qty: 1 on 04/12/2021 by Bandar Gaffney MD at [facility] Lead [employer] [id number] 02/02/2024 1458Q/86 / [id number] / Procedures Procedure Name Priority Date/Time Associated [...] Narrative 02/25/2025 12:51 PM CDT Dodge DDD [place] BI-V ICD imp on 04/12/21 for DCM, [...] See scanned report. Office device f/u 05/27/2026. Joaquin remote f/u 05/27/2025. Dulce Gutierrez, CLARITZA Samy Ceja MD [facility] PROC EDURES Final Result from Last [address] [place] [address] [place] [phone] [facility] MEDICARE ADVANTAGE [facility] Address: [facility] [id number] [place] [phone] [facility] MEDICARE ADVANTAGE [facility] Address: [facility] [address] [place] [address] [facility] MEDICARE ADVANTAGE [facility] Address: [place] [id number] [place] [id number] Advance Directives For more information, please contact: [phone] * Full Code (Latest Code Status on File) Date Activated Date Inactivated Comments 03/23/2023 7:04 AM 03/26/2023 7:27 PM Care Teams Welder Fitter Arc Relationship Specialty Start Date End Date Dillan Reddy MD [address] [facility] [address] [place] [address] PCP - General Internal Medicine 11/09/23 Bandar Gaffney MD Consulting Physician Cardiology 04/13/21
--- OUTSIDE RECORDS SUMMARY | 2025-04-18 13:22 | XMS_ITS | Encounter Summary ---
Author Organization [facility] Healthcare Address [address] [place] [address] Care Team Providers Care Needle Loom Weaver Name Role Phone Lana Tovar MD Primary Care Provider + Bandar Gaffney MD Unavailable [phone] Dillan Reddy MD Primary Care Provide r Encounter Details Date Type Department Care Team (Late st Contact Info) Description 03/26/2018 Orders Only [facility] [place] Management [address] [place] [id number] Scanning, Provider Social History Tobacco Use Types Packs/Day Years Used Date Smoking Tobacco: Never Smokeless Tobacco: Never Alcohol Use Standard Drinks/Week Comments No 0 (1 standard drink = 0.6 oz pur e alcohol) Comments Unknown Sex and Gender Information Value Date Recorded Sex Assigned at Not on file 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
--- OUTSIDE RECORDS SUMMARY | 2025-04-18 13:22 | XMS_ITS | Clinical Summary ---
Author Organization [facility] Address [address] [place] [address] Phone Care Team Providers Care Meatcutter Name Role Phone Lana Tovar MD Primary [...] to complete this topic Insurance MEDICARE C [facility] Care Teams Meatcutter Relationship Specialty Start Date End Date Lana Tovar MD [address] [place] [id number] PCP - General Family Medicine 12/23/16
--- OUTSIDE RECORDS SUMMARY | 2025-04-18 13:22 | XMS_ITS | Encounter Summary ---
Author Organization [facility] Healthcare Address [address] [place] [address] Care Team Providers Care Social Media Assistant Name Role Phone Lana Tovar MD Primary Care Provider + Bandar Gaffney MD Unavailable [phone] Dillan Reddy MD Primary Care Provide r Encounter Details Date Type Department Care Team (Late st Contact Info) Description 01/17/2018 Orders Only [facility] [place] Health Information Management [address] [place] [id number] Scanning, Provider Social History Tobacco Use Types Packs/Day Years Used Date Smoking Tobacco: Never Alcohol Use Standard Drinks/Week Comments No 0 (1 standard drink = 0.6 oz pur e alcohol) Comments Unknown Sex and Gender Information Value Date Recorded Sex Assigned at Not on file 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
--- OUTSIDE RECORDS SUMMARY | 2025-04-18 13:22 | XMS_ITS | Encounter Summary ---
Author Organization [facility] Healthcare Address [address] [place] [address] Care Team Providers Care It Intern Name Role Phone Bandar Gaffney MD Unavailable [phone] Dillan Reddy MD Primary Care Provide r Encounter Details Date Type Department Care Team (Late st Contact Info) Description 12/04/[address] [facility] Medical Group Cardiology [address] [facility] 162 [facility] [address] [place] [address] Samy Ceja MD [address] [facility] [address] [place] [address] Social History Tobacco Use Types [...] often do you attend chur ch or religion services? 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
--- OUTSIDE RECORDS SUMMARY | 2025-04-18 13:22 | XMS_ITS | Encounter Summary ---
Author Organization [facility] Address [address] [facility] [address] [place] [address] Care Team Providers Care Impregnating Helper Name Role Phone Lana Tovar MD Primary Care Provider + Lana Tovar MD Primary Care Provider + Bandar Gaffney MD Unavailable [phone] Dillan Reddy MD Primary Care Provide r Encounter Details Date Type Department Care Team (Late st Contact Info) Description 2016 Orders Only [facility] ProviderSaurabh MD [address] [place] [address] Social History Tobacco Use Types Packs/Day Years Used Date Smoking Tobacco: Never Alcohol Use Standard Drinks/Week Comments No 0 (1 standard drink = 0.6 oz pur e alcohol) Comments Unknown Sex and Gender Information Value Date Recorded Sex Assigned at Not on file 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
[2025-04-18 14:50] LABS: INR 2.9; Prothrombin Time 29.9 Seconds (11.1-14.7)
== END 2025-04-18 13:14 | disposition home or self-care (01) ==
LOC: ANHLAB 13:18
PROVIDERS: PCP Internal Medicine; Visit Provider Internal Medicine
DX: J18.9 Pneumonia, unspecified organism (principal); I13.0 Hypertensive heart and chronic kidney disease with heart failure and stage 1 through stage 4 chronic kidney disease, or unspecified chronic kidney disease; I50.9 Heart failure, unspecified; J96.01 Acute respiratory failure with hypoxia; N18.9 Chronic kidney disease, unspecified; Z51.81 Encounter for therapeutic drug level monitoring; I42.9 Cardiomyopathy, unspecified; F41.8 Other specified anxiety disorders; F31.9 Bipolar disorder, unspecified; E78.5 Hyperlipidemia, unspecified; E03.9 Hypothyroidism, unspecified; K21.9 Gastro-esophageal reflux disease without esophagitis; Z86.73 Personal history of transient ischemic attack (TIA), and cerebral infarction without residual deficits; Z86.718 Personal history of other venous thrombosis and embolism; Z96.653 Presence of artificial knee joint, bilateral; Z79.01 Long term (current) use of anticoagulants
CPT/HCPCS: 36415; 85610

== ENCOUNTER 2025-04-21 14:35 | Inpatient (IN) | payer MEDICARE, SELFPAY ==
--- NOTE | ~2025-04-21 | CT_ITS ---
EXAMINATION: CT lumbar spine wo con DATE: 04/21/2025 16:54 CDT INDICATION: Low back pain. Fall TECHNIQUE: Computed tomography (CT) of the lumbar spine was performed without intravenous contrast. T he dose-length product was 681.00 mGy-cm. COMPARISON: None FINDINGS: Bones appear osteopenic. Moderate levoconvex curvature of the lumbar spine. No compression fracture i n the lumbar spine. Severe intervertebral joint space narrowing at the L1-L2, L2-L3, L3-L4 and L4-L5 levels. Moderate jamey nt space narrowing at the L5-S1 level. Moderate degenerative change in the lumbar facet joints. Evaluation of the spinal canal contents and bilateral neural foramen is limited due to CT technique. Small hiatal hernia. Partially visualized possible 5.9 cm right renal cyst. A renal ultrasound is rec ommended. Multilevel moderate degenerative change in the lumbar spine. Nondisplaced fractures of indeterminate age of the left lateral transverse processes of L1, L2 and L3. IMPRESSION: 1. No compression fracture in the lumbar spine. 2. Multilevel degenerative change in the lumbar spine as detailed above. 3. Partially visualized possible 5.8 cm right renal cyst. A renal ultrasound is recommended. 4. Small hiatal hernia. 5. Nondisplaced fractures of indeterminate age of the left lateral transverse processes of L1, L2 and L3. If symptoms persist, consider an MRI of the lumbar spine for further assessment. Reviewed, dictated and finalized at location A. IMPRESSION: 1. No compression fracture in the lumbar spine. 2. Multilevel degenerative change in the lumbar spine as detailed above. 3. Partially visualized possible 5.8 cm right renal cyst. A renal ultrasound is recommended. 4. Small hiatal hernia. 5. Nondisplaced fractures of indeterminate age of the left lateral transverse p rocesses of L1, L2 and L3. If symptoms persist, consider an MRI of the lumbar spine for further assessment .
--- NOTE | ~2025-04-21 | XR_ITS ---
EXAMINATION: XR chest 2V 04/21/2025 16:36 INDICATION: Dizziness. Fall COMPARISON: 03/28/2025 FINDINGS: Cardiomediastinal silhouette is enlarged. Left-sided generator with leads. No pneumothorax. No pleural effusion. No focal pulmonary consolidation. IMPRESSION: 1: NO ACUTE CARDIOPULMONARY DISEASE. Reviewed, dictated and finalized at location A.
--- NOTE | ~2025-04-21 | CT_ITS ---
EXAMINATION: CT brain wo con DATE: 04/21/2025 16:37 INDICATION: Dizziness TECHNIQUE: Computed tomography (CT) of the head was performed without intravenous contrast. The dose- length product was 681.00 mGy-cm. COMPARISON: 03/25/2025 FINDINGS: No acute intracranial hemorrhage.No midline shift. There are several low density regions scattered throughout the periventricular and deep white matter which are favored to represent chronic ischemic white matter change. Cerebral atrophy appropriate for the patient's age. There is a small low-density region in the right occipital lobe. Differential includes artifact versu s an area of ischemia of indeterminate age. If of concern, consider a brain MRI for further assessmen t The study is slightly limited due to motion artifact. IMPRESSION: 1. The study is slightly limited due to motion artifact. 2. There is a small low-density region in the right occipital lobe. Differential includes artifact ve rsus an area of ischemia of indeterminate age. If of concern, consider a brain MRI for further assess ment 3. No acute intracranial hemorrhage. 4. Probable chronic ischemic white matter change. 5. Cerebral atrophy appropriate for the patient's age. Reviewed, dictated and finalized at location A. IMPRESSION: 1. The study is slightly limited due to motion artifact. 2. There is a small low-density region in the right occipital lobe. Differentia l includes artifact versus an area of ischemia of indeterminate age. If of conc erika, consider a brain MRI for further assessment 3. No acute intracranial hemorrhage. 4. Probable chronic ischemic white matter change. 5. Cerebral atrophy appropriate for the patient's age.
--- NOTE | ~2025-04-21 | CT_ITS ---
EXAMINATION: CT hip LT wo con DATE: 04/24/2025 09:04 INDICATION: Left hip pain post fall TECHNIQUE: High resolution computed tomography (CT) of the left hip was performed without intravenous contrast. Additional sagittal and coronal reconstructions were performed. Automated exposure control and iterative reconstruction technique were employed. The dose-length product was 263.52 mGy-cm. COMPARISON: Left hip radiographs dated and CT abdomen and pelvis dated 08/30/2023 FINDINGS: Bone alignment is normal. No fracture. Mild osteoarthritis at the left hip without evident joint effusion. Likely chronic tears of the left gluteus minimus and anterior left gluteus medius tendons given the chronic severe fatty atrophy of the gluteus minimus and anterior gluteus medius muscle bellies. Alternatively this could be related to changes of chronic denervation. Multiple diverticula along the visualized sigmoid colon without adjacent inflammatory change to suggest diverticulitis. The uterus is not identified and has likely been surgically resected. Visualized bladder is otherwise unremarkable. No pathologically enlarged left pelvic or inguinal lymphadenopathy. There is calcification of a few of the left inguinal lymph nodes suggesting sequela of old granulomatous disease. No free fluid in the visualized pelvis or other abnormal fluid collections. IMPRESSION: 1. Mild left hip osteoarthritis. No acute osseous abnormality or joint effusion. 2. Chronic severe fatty atrophy of the left gluteus and minimus and anterior left gluteus medius muscles likely related to chronic tears of the more distal tendons with differential including sequela chronic denervation change. 3. Prominent sigmoid diverticulosis. Reviewed, dictated and finalized at location A. IMPRESSION: 1. Mild left hip osteoarthritis. No acute osseous abnormality or joint effusion . 2. Chronic severe fatty atrophy of the left gluteus and minimus and anterior le ft gluteus medius muscles likely related to chronic tears of the more distal te ndons with differential including sequela chronic denervation change. 3. Prominent sigmoid diverticulosis.
[2025-04-21 14:48] VITALS: BP 125/63; PULSE 58; RESP 18; TEMP 36.3; O2SAT 99
--- OUTSIDE RECORDS SUMMARY | 2025-04-21 15:38 | XMS_ITS | Encounter Summary ---
Author Organization [facility] Healthcare Address [address] [place] [address] Care Team Providers Care Human Relations Professor Name Role Phone Bandar Gaffney MD Unavailable [phone] Dillan Reddy MD Primary Care Provide r Encounter Details Date Type Department Care Team (Late st Contact Info) Description 12/04/2024 Telephone [facility] Cardiology [address] [facility] 162 [facility] [address] [place] [address] Samy Ceja MD [address] [facility] [address] [place] [address] Social History Tobacco Use Types [...] any clubs o r organizations such as worship groups, unions, fraternal or athletic groups, or [...] on file 

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
--- OUTSIDE RECORDS SUMMARY | 2025-04-21 15:38 | XMS_ITS | Clinical Summary ---
Author Organization [facility] [address] Address [address] [place] [address] Care Team Providers Care Streetcar Operator Name Role Phone Bandar Gaffney MD Unavailable [phone] Dillan Reddy MD Primary Care Provide r [...] in situ 04/13/2021 Overview (04/21/2023): Dodge DDD Stanfield BI-V ICD imp on 04/12/21 for DCM, [...] Description 02/19/2025 1:30 PM CDT Ancillary Procedure [facility] [address] [place] [id number] Dilated cardiomyopathy (HCC); VT (ventricular tachycardia) (HCC); ICD (implantable cardioverter-defibrill ator), biventricular, in situ; Paroxysmal atrial fibrillation (HCC) 02/10/2025 Telephone [facility] [address] [place] [phone] Samy Ceja MD from Last 3 [...] often do you attend chur ch or scientologist services? Never 04/13/2021 Do you belong to any clubs o r organizations such as amish groups, unions, fraternal or athletic groups, or [...] on file Legal Sex Female 2:33 AM OFFICE COORDINATOR Gender Identity Not on file Sexual [...] 05/15/2018, 11/2015 Medical Devices Implanted Type Area Vp Talent Management Device Identifier Shelf Expiration Date Model / Serial / Lot [employer] Vascular [id number] Defib Cardiac [id number] Stanfield Hf Df4 Is-4 Is-1 Cnctr - [id number] - [id number] Implanted:Qty: 1 on 04/12/2021 by Bandar Gaffney MD at [facility] ICD [employer] [id number] 02/01/2023 C [id number] / [id number] / [employer] 7120q/65 Durata 7fr 65cm 2 Coil Df-4 True Bipolar Active Fixation - [id number] - [id number] Implanted:Qty: 1 on 04/12/2021 by Bandar Gaffney MD at [facility] Lead [employer] [id number] 02/01/2022 7120Q/65 / [id number] / [employer] 2088tc/52 Tendril Sts 6fr 52cm Is-1 Connector Active Fixation Bipolar Soft - [id number] - [id number] Implanted:Qty: 1 on 04/12/2021 by Bandar Gaffney MD at [facility] Lead [employer] [id number] 03/03/2024 2088TC/52 / [id number] / [employer] 1458q/86 Quartet 5fr 51tbz57ze 4 Electrode Is-4 Connector Steerable Tip - [id number] - [id number] Implanted:Qty: 1 on 04/12/2021 by Bandar Gaffney MD at [facility] Lead [employer] [id number] 02/02/2024 1458Q/86 / [id number] / Procedures Procedure Name Priority Date/Time Associated [...] Narrative 02/25/2025 12:51 PM CDT [employer] DDD Stanfield BI-V ICD imp on 04/12/21 for DCM, [...] See scanned report. Office device f/u 05/27/2026. [place] remote f/u 05/27/2025. Dulce Gutierrez, CLARITZA Samy Ceja MD [facility] PROC EDURES Final Result from Last [address] [place] [address] [facility] MEDIC[facility] ADVANTAGE [facility] Address: [facility] [id number] [place] [phone] [facility] MEDICARE ADVANTAGE [facility] Address: [facility] [address] [place] [address] [facility] MEDICARE ADVANTAGE [facility] Address: [place] [id number] [place] [id number] Advance Directives For more information, please contact: [phone] * Full Code (Latest Code Status on File) Date Activated Date Inactivated Comments 03/23/2023 7:04 AM 03/26/2023 7:27 PM Care Teams Streetcar Operator Relationship Specialty Start Date End Date Dillan Reddy MD [address] [facility] [address] [place] [address] PCP - General Internal Medicine 11/09/23 Bandar Gaffney MD Consulting Physician Cardiology 04/13/21
--- OUTSIDE RECORDS SUMMARY | 2025-04-21 15:38 | XMS_ITS | Encounter Summary ---
Author Organization [facility] Address [address] [facility] [address] [place] [address] Care Team Providers Care Director Of Enterprise Architecture Name Role Phone Lana Tovar MD Primary Care Provider + Lana Tovar MD Primary Care Provider + Bandar Gaffney MD Unavailable [phone] Dillan Reddy MD Primary Care Provide r Encounter Details Date Type Department Care Team (Late st Contact Info) Description 2016 Orders Only [facility] ProviderSaurabh MD [address] [place] [address] Social History Tobacco Use Types Packs/Day Years Used Date Smoking Tobacco: Never Alcohol Use Standard Drinks/Week Comments No 0 (1 standard drink = 0.6 oz pur e alcohol) Comments Unknown Sex and Gender Information Value Date Recorded Sex Assigned at Not on file Legal Sex Female 2:33 AM ADMINISTRATIVE VOLUNTEER Gender Identity Not on file Sexual Orientation [...] on filedocumented in this encounter Care Teams Director Of Enterprise Architecture Relationship Specialty Start Date End Date Lana Tovar MD PCP - General 12/02/16 11/08/23 Lana Tovar MD PCP - General 02/11/13 12/01/16 Dillan Reddy MD [address] [address] PCP - General Internal Medicine 11/09/23 Bandar Gaffney MD Consulting Physician Cardiology 04/13/21 documented as of this encounter
--- OUTSIDE RECORDS SUMMARY | 2025-04-21 15:38 | XMS_ITS | Clinical Summary ---
Author Organization [facility] Address [address] [place] [address] Phone Care Team Providers Care Copy Director Name Role Phone Lana Tovar MD Primary [...] Due Date Last Done Comments Hepatitis C Virus (HCV) Screening 1945 TdaP Immunization 1945 Respiratory Syncytial Virus (RSV) Immunization (Adult) (1 - 1-dose 75+ series) 2020 SARS-COV-2 Immunization (2023- season) 2024 05/26/2022, 02/22/2022, 06/30/2021, Additional history exists Influenza Immunization (#1) 05/05/202505/06, 06/12/2021, 05/12/2020, Additional history exists Colonoscopy Discontinued [...] to complete this topic Insurance MEDICARE C [facility] Care Teams Copy Director Relationship Specialty Start Date End Date Lana Tovar MD [address] [place] [address] PCP - General Family Medicine 12/23/16
--- OUTSIDE RECORDS SUMMARY | 2025-04-21 15:39 | XMS_ITS | Encounter Summary ---
Author Organization [facility] Healthcare Address [address] [place] [address] Care Team Providers Care Mate Relief Name Role Phone Lana Tovar MD Primary Care Provider + Bandar Gaffney MD Unavailable [phone] Dillan Reddy MD Primary Care Provide r Encounter Details Date Type Department Care Team (Late st Contact Info) Description 01/17/2018 Orders Only [facility] Health Information Management [address] [place] [address] Scanning, Provider Social History Tobacco Use Types Packs/Day Years Used Date Smoking Tobacco: Never Alcohol Use Standard Drinks/Week Comments No 0 (1 standard drink = 0.6 oz pur e alcohol) Comments Unknown Sex and Gender Information Value Date Recorded Sex Assigned at Not on file 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
--- OUTSIDE RECORDS SUMMARY | 2025-04-21 15:39 | XMS_ITS | Clinical Summary ---
Author Organization [facility] Address [address] [place] [address] Care Team Providers Care Cigarette Lighter Repairer Name Role Phone Unavailable Primary Care Provider [...] Documents on File Type Date Recorded Patient Pricing Strategist Expl anation Advance Directives and Living Will 01/14/2016 12:00 AM ADVANCED DIRECTIVES
--- OUTSIDE RECORDS SUMMARY | 2025-04-21 15:39 | XMS_ITS | Encounter Summary ---
Author Organization [facility] Healthcare Address [address] [place] [address] Care Team Providers Care Sand Analyst Name Role Phone Lana Tovar MD Primary Care Provider + Bandar Gaffney MD Unavailable [phone] Dillan Reddy MD Primary Care Provide r Encounter Details Date Type Department Care Team (Late st Contact Info) Description 03/26/2018 Orders Only [facility] Health Information Management [address] [place] [address] Scanning, Provider Social History Tobacco Use Types Packs/Day Years Used Date Smoking Tobacco: Never Smokeless Tobacco: Never Alcohol Use Standard Drinks/Week Comments No 0 (1 standard drink = 0.6 oz pur e alcohol) Comments Unknown Sex and Gender Information Value Date Recorded Sex Assigned at Not on file 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
--- NOTE | 2025-04-21 16:04 | ECG_ITS ---
Test Date: 2025-04-21 17:10:07 Measurements Intervals Pax Rate: 60 P: 213 ND: 112 QRS: -46 QRSD: 154 T: 71 QT: 499 QTc: 499 Interpretive Statements ELECTRONIC ATRIAL PACEMAKER ELECTRONIC VENTRICULAR PACEMAKER BASELINE ARTIFACT- I, II, III, AVR, AVL, AVF, V1-V6 NO FURTHER INTERPRETATION IS POSSIBLE ATYPICAL ECG Compared to ECG 03/24/2025 21:57:25 HEART RATE HAS DECREASED Electronically Signed On 04-21-2025 19:37:46 CDT by Tevin Wong D.O.
--- NOTE | 2025-04-21 16:06 | ED.DIZZY ---
HPI - Dizziness General Chief Complaint: Dizziness <Rocio Suarez PA-C - Last Filed: 04/22/25 10:07> Stated Complaint: dizzy <Rocio Suarez PA-C - Last Filed: 04/22/25 10:07> Time Seen by Provider: 04/21/25 16:06 <Rocio Suarez PA-C - Last Filed: 04/22/25 10:07> Focused HPI: This is a 79 year old female that presents to the ER for lightheadedness. Ongoing over the last 2 weeks. Reports she sustained a ground level fall and injured her low back. She has been having ongoing lightheadedness. Was sent by her PCP for further evaluation. She does believe she hit her head. She did not lose consciousness. GENERAL: Well-appearing, well-nourished, and in no acute distress. HEAD: Normocephalic, atraumatic. CHEST: Clear to auscultation. ?No respiratory distress. HEART: Regular rate and rhythm.? NEURO: ?Alert and oriented x3. Patient screened in triage and initial orders placed.? ?Additional care and disposition to be based upon?diagnostic testing and treatment. <Rocio Suarez PA-C - Last Filed: 04/22/25 10:07> History of Present Illness HPI Narrative: I agree with the above HPI <James Plata MD - Last Filed: 04/21/25 22:35> Related Data Home Medications: Home Medications ?Medication ?Instructions ?Recorded ?Confirmed ?Last Taken ?Type trazodone 150 mg tablet 150 mg PO HS 03/22/21 04/22/25 04/21/25 History venlafaxine 37.5 mg 37.5 mg PO DAILY 08/22/22 04/22/25 04/21/25 History capsule,extended release 24 hr (Effexor XR) rosuvastatin 40 mg tablet 40 mg PO DAILY 12/27/23 04/22/25 04/21/25 History amiodarone 200 mg tablet 400 mg PO DAILY 01/02/24 04/22/25 04/21/25 History clonazepam 0.5 mg tablet 0.5 mg PO TID 01/02/24 04/22/25 04/21/25 History levothyroxine 150 mcg tablet 150 mcg PO DAILY 01/02/24 04/22/25 04/21/25 History carvedilol 12.5 mg tablet 25 mg PO DAILY 12/24/24 04/22/25 04/21/25 History cyanocobalamin (vitamin B-12) 1,000 mcg subcut MONTHLY 03/25/25 04/22/25 04/21/25 History 1,000 mcg/mL injection solution donepezil 10 mg tablet 10 mg PO HS 03/25/25 04/22/25 04/21/25 History famotidine 20 mg tablet 20 mg PO Q12H PRN reflux 03/25/25 04/22/25 04/21/25 History furosemide 40 mg tablet 40 mg PO 3XW 03/25/25 04/22/25 04/21/25 History losartan 50 mg tablet 50 mg PO DAILY 03/25/25 04/22/25 04/21/25 History ondansetron 4 mg disintegrating 8 mg PO Q12H PRN nausea and 03/25/25 04/22/25 04/21/25 History tablet vomiting spironolactone 25 mg tablet 25 mg PO DAILY 03/25/25 04/22/25 04/21/25 History methylprednisolone 4 mg tablets in 4 mg PO DAILY 04/22/25 04/22/25 04/21/25 History a dose pack <Rocio Suarez PA-C - Last Filed: 04/22/25 10:07> Allergies/Adverse Reactions: Allergies Allergy/AdvReac Type Severity Reaction Status Date / Time codeine Allergy Unknown Unknown Verified 04/11/25 13:09 hydroxyzine Allergy Unknown Unknown Verified 04/11/25 13:09 lorazepam Allergy Unknown Unknown Verified 04/11/25 13:09 tramadol Allergy Unknown Unknown Verified 04/11/25 13:09 NSAIDS (Non-Steroidal AdvReac Unknown Nausea Verified 04/11/25 13:09 Anti-Inflamma sumatriptan AdvReac Unknown FELT Verified 04/11/25 13:09 HORRIBLE <Rocio Suarez PA-C - Last Filed: 04/22/25 10:07> Review of Systems Review of Systems: All systems reviewed & are unremarkable except as noted in HPI and below <James Plata MD - Last Filed: 04/21/25 22:35> PMFSH Past Medical History Medical History: Medical History (Updated 04/22/25 @ 10:07 by Rocio Suarez PA-C) Chronic anticoagulation Transient ischemic attack Gastroesophageal reflux disease Chronic kidney disease Depression with anxiety Deep venous thrombosis Heart failure with reduced ejection fraction EF was 20 to 25% in March 2021. Left bundle branch block Hyperlipidemia Hypertension Hypothyroidism Cardiomyopathy Bipolar disorder <Rocio Suarez PA-C - Last Filed: 04/22/25 10:07> Surgical History Surgical History: Surgical History History of colon resection History of bilateral knee arthroplasty History of repair of left rotator cuff History of bladder suspension procedure History of tonsillectomy History of cardiac catheterization History of partial hysterectomy History of orthopedic surgery <Rocio Suarez PA-C - Last Filed: 04/22/25 10:07> Family History Family History: Family History Father Hypertension Cerebrovascular accident Mother Family history of diabetes mellitus in first degree relative Family history of lung disease Family history of coronary artery disease Sibling Family history of diabetes mellitus in first degree relative Cardiomyopathy Son Family history of mental disorder Other Family history of alcoholism Family history of arthritis Family history of gout <Rocio Suarez PA-C - Last Filed: 04/22/25 10:07> Social History Social History: Social History Social History: Surrogate medical decision maker: Man Linton, sibling. Code status: Full code. Smoking status: Never smoker Second hand tobacco smoke exposure: No Alcohol intake: never Substance use: never Substance use type: does not use Do You Feel Safe in your Home?: Yes Lack of Transportation: No Lack of Food: Never True Current Housing: I Have Housing Concerned About Future Housing: No Difficulty Paying Gas/Electric Bills: No Difficulty Paying for Meds: No Currently Unemployed: No Education: High School Diploma/GED Difficulty w/ Childcare or Family Care: No Living arrangements: with roommate(s) Additional living arrangements comments: . Has 1 child. Additional occupation/education comments: Retired from the [employer]. Spiritual care concerns: No <Rocio Suarez PA-C - Last Filed: 04/22/25 10:07> Exam Narrative: APPEARANCE: Well appearing, no pain, no distress, well-nourished. HEAD: normocephalic, atraumatic. EYES: PERRLA/EOMI, conjunctivae clear. NOSE: Normal no drainage EARS:TMS clear with good light reflex. THROAT: Pharynx clear, no exudate. NECK: Supple. No adenopathy, no masses. RESPIRATORY: Airway patent, respirations nonlabored. Clear to auscultation bilaterally, no rales, rhonchi, wheezing. CARDIOVASCULAR: Regular rate and rhythm without murmurs rubs or gallops. ABDOMINAL: Soft, nontender, nondistended, normal bowel sounds MUSCULOSKELETAL: Moves all extremities. Strength/ROM intact, No edema, No calf tenderness. NEURO: Alert. Cranial nerves II through XII intact. Good gait. Good coordination SKIN: Warm, dry. Normal Color <James Plata MD - Last Filed: 04/21/25 22:35> Course Vital Signs Vital signs: Vital Signs Temperature 97.4 F L 04/21/25 14:48 Pulse Rate 58 L 04/21/25 14:48 Respiratory Rate 18 04/21/25 14:48 Blood Pressure 125/63 04/21/25 14:48 Pulse Oximetry 99 04/21/25 14:48 Oxygen Delivery Room Air 04/21/25 14:48 Temperature 97.6 F 04/22/25 06:00 Pulse Rate 60 04/22/25 08:50 Respiratory Rate 16 04/22/25 06:00 Blood Pressure 116/49 L 04/22/25 06:00 Pulse Oximetry 98 04/22/25 06:00 Oxygen Delivery Room Air 04/21/25 23:30 <Rocio Suarez PA-C - Last Filed: 04/22/25 10:07> Vital Signs Temperature 97.4 F L 04/21/25 14:48 Pulse Rate 58 L 04/21/25 14:48 Respiratory Rate 18 04/21/25 14:48 Blood Pressure 125/63 04/21/25 14:48 Pulse Oximetry 99 04/21/25 14:48 Oxygen Delivery Room Air 04/21/25 14:48 Temperature 97.6 F 04/22/25 06:00 Pulse Rate 60 04/22/25 08:50 Respiratory Rate 16 08/19/25 06:00 Blood Pressure 116/49 L 04/22/25 06:00 Pulse Oximetry 98 04/22/25 06:00 Oxygen Delivery Room Air 04/21/25 23:30 <James Plata MD - Last Filed: 04/21/25 22:35> MDM - Dizziness MDM Narrative Medical decision making narrative: 79-year-old female presents emergency department for evaluation for persistent dizziness and lower back pain. Patient is currently afebrile but does have a leukocytosis of 10.4 hemoglobin of 12.9. Patient is a creatinine of 1.19. Fractures of indeterminate age an L1-2 on 3. Patient does still have persistent dizziness with movement. Head CT was concerning for ischemic infarct. Radiology did recommend MRI. Patient is asymptomatic at rest, patient was treated with p.o. meclizine. Family updated the results of the workup and plan for admission. All questions concerns were addressed. <James Plata MD - Last Filed: 04/21/25 22:35> Differential Diagnosis Differential diagnosis: Likely benign paroxysmal positional vertigo, orthostatic hypotension, vertebral basilar insufficiency, cerebrovascular accident, acute vestibular neuronitis, transient cerebral ischemia and other <James Plata MD - Last Filed: 04/21/25 22:35> Lab Data Attestation: I reviewed the patient's lab results. <James Plata MD - Last Filed: 04/21/25 22:35> Result diagrams: 04/22/25 05:51 04/22/25 05:51 <Rocio Suarez PA-C - Last Filed: 04/22/25 10:07> Labs: Lab Results 04/21/25 Range/Units 17:17 WBC 10.4 H (4.5-10.0) K/mm3 RBC 4.09 L (4.2-5.4) M/mm3 Hgb 12.9 (12.0-15.0) g/dL Hct 41.9 (37.0-47.0) % MCV 102.4 H (80-100) fl MCH 31.5 (26-34) pg MCHC 30.8 L (32-36) g/dl RDW 14.6 H (11.5-14.5) % Plt Count 280 (150-375) k/mm3 MPV 9.5 (7.4-10.4) fl Immature Gran % (Auto) 0.6 H (0-0.5) % Neut % (Auto) 77.0 H (45.5-73.1) % Lymph % (Auto) 13.6 L (18.3-44.2) % [place] % (Auto) 8.2 (2.6-8.5) % Eos % (Auto) 0.2 (0-4.4) % Baso % (Auto) 0.4 (0.2-1.2) % Lymph # (Auto) 1.42 (0.9-3.2) K/mm3 [place] # (Auto) 0.9 H (0.1-0.6) K/mm3 Eos # (Auto) 0.0 (0-0.3) K/mm3 Baso # (Auto) 0.0 (0.0-0.1) K/mm3 Abs Immat Gran (auto) 0.06 H (0.00-0.031) K/mm3 Absolute Neuts (auto) 8.0 H (1.3-6.7) K/mm3 Absolute Nucleated RBC 0.000 (0.0-0.012) K/mm3 Nucleated RBC % 0.0 (0.0-0.2) % Sodium 135 L (137-145) mmol/L Potassium 4.8 (3.4-5.0) mmol/L Chloride 100 (98-107) mmol/L Carbon Dioxide 29 (22-30) mmol/L Anion Gap 6 (4-12) mmol/L BUN 25 H (7-17) mg/dL Creatinine 1.19 H (0.7-1.0) mg/dL Estim Creat Clear Calc 35 ml/min Estimated GFR 44 L (59 - ) Glucose 114 H (65-110) mg/dL Calcium 9.2 (8.4-10.2) mg/dL Total Bilirubin 0.4 (0.2-1.3) mg/dL AST 53 H (14-36) U/L ALT 57 H (6-35) U/L Alkaline Phosphatase 56 (38-126) U/L Total Protein 8.0 (6.3-8.2) g/dL Albumin 4.1 (3.5-5.1) g/dL <Rocio Suarez PA-C - Last Filed: 04/22/25 10:07> Lab Results 04/21/25 Range/Units 17:17 WBC 10.4 H (4.5-10.0) K/mm3 RBC 4.09 L (4.2-5.4) M/mm3 Hgb 12.9 (12.0-15.0) g/dL Hct 41.9 (37.0-47.0) % MCV 102.4 H (80-100) fl MCH 31.5 (26-34) pg MCHC 30.8 L (32-36) g/dl RDW 14.6 H (11.5-14.5) % Plt Count 280 (150-375) k/mm3 MPV 9.5 (7.4-10.4) fl Immature Gran % (Auto) 0.6 H (0-0.5) % Neut % (Auto) 77.0 H (45.5-73.1) % Lymph % (Auto) 13.6 L (18.3-44.2) % [place] % (Auto) 8.2 (2.6-8.5) % Eos % (Auto) 0.2 (0-4.4) % Baso % (Auto) 0.4 (0.2-1.2) % Lymph # (Auto) 1.42 (0.9-3.2) K/mm3 [place] # (Auto) 0.9 H (0.1-0.6) K/mm3 Eos # (Auto) 0.0 (0-0.3) K/mm3 Baso # (Auto) 0.0 (0.0-0.1) K/mm3 Abs Immat Gran (auto) 0.06 H (0.00-0.031) K/mm3 Absolute Neuts (auto) 8.0 H (1.3-6.7) K/mm3 Absolute Nucleated RBC 0.000 (0.0-0.012) K/mm3 Nucleated RBC % 0.0 (0.0-0.2) % Sodium 135 L (137-145) mmol/L Potassium 4.8 (3.4-5.0) mmol/L Chloride 100 (98-107) mmol/L Carbon Dioxide 29 (22-30) mmol/L Anion Gap 6 (4-12) mmol/L BUN 25 H (7-17) mg/dL Creatinine 1.19 H (0.7-1.0) mg/dL Estim Creat Clear Calc 35 ml/min Estimated GFR 44 L (59 - ) Glucose 114 H (65-110) mg/dL Calcium 9.2 (8.4-10.2) mg/dL Total Bilirubin 0.4 (0.2-1.3) mg/dL AST 53 H (14-36) U/L ALT 57 H (6-35) U/L Alkaline Phosphatase 56 (38-126) U/L Total Protein 8.0 (6.3-8.2) g/dL Albumin 4.1 (3.5-5.1) g/dL <James Plata MD - Last Filed: 04/21/25 22:35> Imaging Data Radiologist's impression: Impressions Chest X-Ray 04/21/25 16:39 IMPRESSION: 1: NO ACUTE CARDIOPULMONARY DISEASE. Head CT 04/21/25 16:40 IMPRESSION: 1. The study is slightly limited due to motion artifact. 2. There is a small low-density region in the right occipital lobe. Differential includes artifact versus an area of ischemia of indeterminate age. If of concern, consider a brain MRI for further assessment 3. No acute intracranial hemorrhage. 4. Probable chronic ischemic white matter change. 5. Cerebral atrophy appropriate for the patient's age. Lumbar Spine CT 04/21/25 16:53 IMPRESSION: 1. No compression fracture in the lumbar spine. 2. Multilevel degenerative change in the lumbar spine as detailed above. 3. Partially visualized possible 5.8 cm right renal cyst. A renal ultrasound is recommended. 4. Small hiatal hernia. 5. Nondisplaced fractures of indeterminate age of the left lateral transverse processes of L1, L2 and L3. If symptoms persist, consider an MRI of the lumbar spine for further assessment. <James Plata MD - Last Filed: 04/21/25 22:35> Critical Care Time Critical Care Time Critical Care Time: No <Rocio Suarez PA-C - Last Filed: 04/22/25 10:07> Discharge Plan Discharge Clinical Impression: Dizziness CVA (cerebrovascular accident) Qualifiers: CVA mechanism: unspecified Qualified Code(s): I63.9 - Cerebral infarction, unspecified <Rocio Suarez PA-C - Last Filed: 04/22/25 10:07> Patient Disposition: Still a Patient <Rocio Suarez PA-C - Last Filed: 04/22/25 10:07> Condition: Serious <Rocio Suarez PA-C - Last Filed: 04/22/25 10:07>
[2025-04-21 16:52] VITALS: BP 132/69; PULSE 60; RESP 19; TEMP 36.6; O2SAT 99
[2025-04-21 17:32] LABS: Hematocrit 41.9 % (37.0-47.0); Hemoglobin 12.9 g/dL (12.0-15.0); Immature Granulocyte Percent A 0.6 % (0-0.5); Lymphocytes Absolute Auto 1.42 K/mm3 (0.9-3.2); Mean Corpuscular HGB Conc 30.8 g/dl (32-36); Mean Corpuscular Hemoglobin 31.5 pg (26-34); Mean Corpuscular Volume 102.4 fl (80-100); Nucleated Red Blood Cells Absolute Auto 0.000 K/mm3 (0.0-0.012); Nucleated Red Blood Cells Perc 0.0 % (0.0-0.2); Platelet Count Result 280 k/mm3 (150-375); Red Blood Count 4.09 M/mm3 (4.2-5.4); White Blood Count 10.4 K/mm3 (4.5-10.0)
[2025-04-21 17:34] LABS: Alanine Aminotransferase 57 U/L (6-35); Albumin Level 4.1 g/dL (3.5-5.1); Alkaline Phosphatase 56 U/L (38-126); Anion Gap 6 mmol/L (4-12); Aspartate Amino Transferase 53 U/L (14-36); Bilirubin,Total 0.4 mg/dL (0.2-1.3); Blood Urea Nitrogen 25 mg/dL (7-17); Calcium 9.2 mg/dL (8.4-10.2); Carbon Dioxide 29 mmol/L (22-30); Chloride 100 mmol/L (98-107); Estimated CRCL calculation 35 ml/min; Estimated Glomerular Filt Rate 44; Glucose 114 mg/dL (65-110); Potassium 4.8 mmol/L (3.4-5.0); Sodium 135 mmol/L (137-145); Total Protein 8.0 g/dL (6.3-8.2)
--- OUTSIDE RECORDS SUMMARY | 2025-04-21 20:30 | XMS_ITS | Clinical Summary ---
Author Organization [facility] Address [address] [place] [address] Phone Care Team Providers Care Pecan Gatherer Name Role Phone Lana Tovar MD Primary [...] to complete this topic Insurance MEDICARE C [facility] Care Teams Pecan Gatherer Relationship Specialty Start Date End Date Lana Tovar MD [address] [place] [id number] PCP - General Family Medicine 12/23/16
--- OUTSIDE RECORDS SUMMARY | 2025-04-21 20:30 | XMS_ITS | Clinical Summary ---
Author Organization [facility] [address] Address [address] [place] [address] Care Team Providers Care Shoe Salesperson Name Role Phone Bandra Gaffney MD Unavailable [phone] Dillan Reddy MD Primary Care Provide r [...] in situ 04/13/2021 Overview (04/21/2023): Dodge DDD [place] BI-V ICD imp on 04/12/21 for DCM, [...] Health Cardiology [address] [place] [phone] Dilated cardiomyopathy (HCC); VT (ventricular tachycardia) (HCC); ICD (implantable cardioverter-defibrill ator), biventricular, in situ; Paroxysmal atrial fibrillation (HCC) 02/10/2025 Telephone [facility] [address] [place] [phone] Samy Ceja MD from Last 3 [...] often do you attend chur ch or amish services? 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 Gender Identity Not on file Sexual Orientation [...] 05/15/2018, 11/2015 Medical Devices Implanted Type Area Assistant Attorney General Device Identifier Shelf Expiration Date Model / Serial / Lot Dodge Vascular [id number] Defib Cardiac [id number] [place] Hf Df4 Is-4 Is-1 Cnctr - [id number] - [id number] Implanted:Qty: 1 on 04/12/2021 by Bandar Gaffney MD at [facility] ICD [employer] V[employer] [id number] 02/01/2023 C [id number] / [id number] / [employer] 7120q/65 Durata 7fr 65cm 2 Coil Df-4 True Bipolar Active Fixation - [id number] - [id number] Implanted:Qty: 1 on 04/12/2021 by Bandar Gaffney MD at [facility] Lead [employer] [id number] 02/01/2022 7120Q/65 / [id number] / [employer] 2088tc/52 Tendril Sts 6fr 52cm Is-1 Connector Active Fixation Bipolar Soft - [id number] - [id number] Implanted:Qty: 1 on 04/12/2021 by Bandar Gaffney MD at [facility] Lead [employer] [id number] 03/03/2024 2088TC/52 / [id number] / [employer] 1458q/86 Quartet 5fr [id number] Electrode Is-4 Connector Steerable Tip - [id number] - [id number] Implanted:Qty: 1 on 04/12/2021 by Bandar Gaffney MD at [facility] Lead [employer] [id number] 02/02/2024 1458Q/86 / [id number] / Procedures Procedure Name Priority Date/Time Associated [...] Narrative 02/25/2025 12:51 PM CDT Dodge DDD [place] BI-V ICD imp on 04/12/21 for DCM, [...] See scanned report. Office device f/u 05/27/2026. [place] remote f/u 05/27/2025. Dulce Gutierrez, CLARITZA Samy Ceja MD [facility] PROC EDURES Final Result from Last [address] [place] [address] [facility] MEDICARE ADVANTAGE [facility] MEDIC[facility] Address[facility] [id number] [place] [phone] [facility] MEDICARE ADVANTAGE [facility] Address: [facility] [address] [place] [address] [facility] MEDICARE ADVANTAGE [facility] Address: [place] [id number] [place] [id number] Advance Directives For more information, please contact: [phone] * Full Code (Latest Code Status on File) Date Activated Date Inactivated Comments 03/23/2023 7:04 AM 03/26/2023 7:27 PM Care Teams Shoe Salesperson Relationship Specialty Start Date End Date Dillan Reddy MD [address] [facility] [address] [place] [address] PCP - General Internal Medicine 11/09/23 Bandar Gaffney MD Consulting Physician Cardiology 04/13/21
--- OUTSIDE RECORDS SUMMARY | 2025-04-21 20:30 | XMS_ITS | Encounter Summary ---
Author Organization [facility] Healthcare Address [address] [place] [address] Care Team Providers Care Washer Engineer Name Role Phone Lana Tovar MD Primary Care Provider + Bandar Gaffney MD Unavailable [phone] Dillan Reddy MD Primary Care Provide r Encounter Details Date Type Department Care Team (Late st Contact Info) Description 01/17/2018 [place] Only [facility] [place] [address] [place] [id number] Scanning, Provider Social History Tobacco Use Types Packs/Day Years Used Date Smoking Tobacco: Never Alcohol Use Standard Drinks/Week Comments No 0 (1 standard drink = 0.6 oz pur e alcohol) Comments Unknown Sex and Gender Information Value Date Recorded Sex Assigned at Not on file 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
--- OUTSIDE RECORDS SUMMARY | 2025-04-21 20:30 | XMS_ITS | Encounter Summary ---
Author Organization [facility] Address [address] [facility] [address] [place] [address] Care Team Providers Care Ext Js Developer Name Role Phone Lana Tovar MD Primary Care Provider + Lana Tovar MD Primary Care Provider + Bandar Gaffney MD Unavailable [phone] Dillan Reddy MD Primary Care Provide r Encounter Details Date Type Department Care Team (Late st Contact Info) Description 2016 Orders Only [facility] ProviderSaurabh MD [address] [place] [id number] Social History Tobacco Use Types Packs/Day Years Used Date Smoking Tobacco: Never Alcohol Use Standard Drinks/Week Comments No 0 (1 standard drink = 0.6 oz pur e alcohol) Comments Unknown Sex and Gender Information Value Date Recorded Sex Assigned at Not on file 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
--- OUTSIDE RECORDS SUMMARY | 2025-04-21 20:30 | XMS_ITS | Encounter Summary ---
Author Organization [facility] Healthcare Address [address] [place] [address] Care Team Providers Care Magazine Worker Name Role Phone Lana Tovar MD Primary Care Provider + Bandar Gaffney MD Unavailable [phone] Dillan Reddy MD Primary Care Provide r Encounter Details Date Type Department Care Team (Late st Contact Info) Description 03/26/2018 Orders Only [facility] Health Information Management [address] [place] [id number] Scanning, Provider Social History Tobacco Use Types Packs/Day Years Used Date Smoking Tobacco: Never Smokeless Tobacco: Never Alcohol Use Standard Drinks/Week Comments No 0 (1 standard drink = 0.6 oz pur e alcohol) Comments Unknown Sex and Gender Information Value Date Recorded Sex Assigned at Not on file 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
--- OUTSIDE RECORDS SUMMARY | 2025-04-21 20:30 | XMS_ITS | Encounter Summary ---
Author Organization [facility] Healthcare Address [address] [place] [address] Care Team Providers Care Clinical Psychologist Name Role Phone Bandar Gaffney MD Unavailable [phone] Dillan Reddy MD Primary Care Provide r Encounter Details Date Type Department Care Team (Late st Contact Info) Description 12/04/[address] 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
--- OUTSIDE RECORDS SUMMARY | 2025-04-21 20:30 | XMS_ITS | Clinical Summary ---
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
[2025-04-21] MEDS: MECLIZINE HCL 25 MG TABLET PO (21:24)
[2025-04-21 22:44] VITALS: BP 119/65; PULSE 66; RESP 18; O2SAT 98
[2025-04-21 23:29] VITALS: BMI 28.2
[2025-04-21 23:30] VITALS: O2SAT 98
[2025-04-22] VITALS (14 sets, daily range): BP systolic 105–152; BP diastolic 49–82; PULSE 60–63; RESP 16–18; TEMP 36.1–36.8; O2SAT 96–98
--- NOTE | 2025-04-22 | ECHO_ITS ---
Patient Info Name: Yi Martino Age: 79 years : 1945 Gender: Female Ht: 65 in Wt: 169 lbs BSA: 1.89 m2 HR: 65 bpm BP: 119 / 65 mmHg Technical Quality: Good Exam Date: 04/22/2025 9:51 AM Patient Status: I Admit Date: 04/21/2025 Exam Type: CA echo doppler w bubble study Complete two-dimensional, color flow and Doppler transthoracic echocardiogram is performed with agitated saline. Staff Referring Physician: James Plata Lasting Room Supervisor: Lona Villeda Attending Provider: Henny Fox DO Contrast/Agitated Saline Contrast/Ag. Saline: Agitated Saline Amount: 12.00 ml Existing IV Access: Yes IV Access Condition: patent with no signs of infiltration Summary 1. Left ventricular chamber dimension is mildly enlarged. 2. Left ventricular systolic function is normal, estimated at 45-50. basal inferolateral and mid inferior hypokinesis. 3. There is mildly increased left ventricular wall thickness. 4. The left ventricular diastolic function is grade II diastolic dysfunction. 5. Linear artifact in right ventricle suggestive of catheter(s), pacemaker lead(s), or ICD lead(s). 6. Left atrial chamber dimension is mildly enlarged. 7. Intact interatrial septum visualized by agitated saline imaging. 8. There is mild aortic valve sclerosis. 9. There is mild aortic valve regurgitation. 10. There is severe mitral valve regurgitation. 11. There is mild mitral valve calcification. 12. There is mild tricuspid valve regurgitation. 13. No pulmonary hypertension, estimated pulmonary arterial systolic pressure is 35 mmHg. Left Ventricle Left ventricular chamber dimension is mildly enlarged. Left ventricular systolic function is normal, estimated at 45-50. basal inferolateral and mid inferior hypokinesis. There is mildly increased left ventricular wall thickness. Left ventricular septal wall motion is normal. The left ventricular diastolic function is grade II diastolic dysfunction. Right Ventricle Right ventricular chamber dimension is normal. Right ventricular systolic function is normal. Linear artifact in right ventricle suggestive of catheter(s), pacemaker lead(s), or ICD lead(s). Left Atria Left atrial chamber dimension is mildly enlarged. Right Atria Right atrial chamber dimension is normal. Atrial Septum Intact interatrial septum visualized by agitated saline imaging. Aortic Valve The aortic valve is trileaflet. There is mild aortic valve sclerosis. There is no aortic valve stenosis. There is mild aortic valve regurgitation. Pulmonic Valve The pulmonic valve is normal. There is no pulmonic valve stenosis. There is no pulmonic regurgitation. Mitral Valve The mitral valve has normal leaflets. There is no mitral valve stenosis. There is severe mitral valve regurgitation. There is mild mitral valve calcification. Tricuspid Valve The tricuspid valve leaflets are normal. There is no significant tricuspid valve stenosis. There is mild tricuspid valve regurgitation. No pulmonary hypertension, estimated pulmonary arterial systolic pressure is 35 mmHg. Pericardium/Pleural The pericardium appears normal. There is no pericardial effusion. Inferior Vena Cava Normal inferior vena cava with >50% collapse upon inspiration consistent with normal right atrial pressure, 5 mmHg. Aorta The aortic root size at the sinus of Valsalva is normal. The prox ascending aorta size is normal. Left Ventricular Outflow Tract Name Value Normal LVOT 2D LVOT Diameter 2.0 cm LVOT Doppler LVOT Peak Velocity 84 cm/s LVOT Peak Gradient 3 mmHg LVOT Mean Gradient 2 mmHg LVOT VTI 19 cm LVOT VTI/AV VTI Ratio 0.6 LVOT Stroke Volume 58 ml LVOT CO 11.3 l/min LVOT CI 5.9 l/min/m2 Pulmonic Valve Name Value Normal PV Doppler PV Peak Velocity 82 cm/s PV Peak Gradient 3 mmHg Mitral Valve Name Value Normal MV Diastolic Function MV E Peak Velocity 108 cm/s MV A Peak Velocity 85 cm/s MV E/A 1.3 MV Decel Time (PW) 176 ms MV Annular TDI MV E/e' (Septal) 15.1 MV E/e' (Lateral) 14.9 MV E/e' (Average) 15.0 Tricuspid Valve Name Value Normal TV Regurgitation Doppler TR Peak Velocity 274 cm/s TR Peak Gradient 28 mmHg Estimated PAP/RSVP RA Pressure 5 mmHg <=5 PA Systolic Pressure 35 mmHg <36 RV Systolic Pressure 35 mmHg <36 TV Annular TDI TV Lateral [place]' Velocity 11.7 cm/s >=9.5 Aorta Name Value Normal Ascending Aorta Ao Root Diameter (MM) 3.0 cm Ao Root Diam Index (MM) 1.6 cm/m2 Aortic Valve Name Value Normal AV Doppler AV Peak Velocity 148 cm/s AV Peak Gradient 9 mmHg AV Mean Gradient 5 mmHg AV VTI 29 cm AV Area (Cont Eq VTI) 2.0 cm2 >=3.0 AV Area (Cont Eq Joshua) 1.7 cm2 AV DI (Joshua) 0.56 AV Regurgitation 2D LVOT Area 3.0 cm2 Ventricles Name Value Normal LV Dimensions 2D/MM IVS Diastolic Thickness (2D) 1.0 cm 0.6-1.0 LVID Diastole (2D) 6.3 cm 3.8-5.2 LVIW Diastolic Thickness (2D) 0.9 cm 0.6-0.9 LVID Systole (2D) 5.8 cm 2.2-3.5 LVOT Diameter 2.0 cm LV Mass (2D Cubed) 259.66 g 67.00-162.00 LV Mass Index (2D Cubed) 137 g/m2 43-95 Relative Wall Thickness (2D) 0.29 <=0.42 LV Fractional Shortening/Ejection Fraction 2D/MM LV Fractional Shortening (2D) 9 % 27-45 LV EF (2D Teichholz) 19 % LV Diastolic Volume (4C MOD) 155 ml LV EF (4C MOD) 39 % LV Diastolic Volume (2C MOD) 161 ml LV EF (2C MOD) 50 % LV Diastolic Volume (BP MOD) 167 ml 46-106 LV Diastolic Volume Index (BP MOD) 88 ml/m2 29-61 LV Systolic Volume (BP MOD) 91 ml 14-42 LV Systolic Volume Index (BP MOD) 48 ml/m2 8-24 LV EF (BP MOD) 45 % 54-74 LV Diastolic Length (4C) 7.9 cm LV Systolic Length (4C) 6.5 cm LV Stroke Volume (4C MOD) 61 ml Atria Name Value Normal LA Dimensions LA Dimension (MM) 4.6 cm 2.7-3.8 LA Volume (4C A-L) 53 ml LA Volume (BP A-L) 75 ml RA Dimensions RA Systolic Major [place] Length (4C) 4.7 cm 2.2-2.8 RA Area (4C) 16.1 cm2 <=18.0 Wall Motion Scoring Report Signatures Amended by Gerry Ricci MD on 04/22/2025 07:46 PM Amended by Gerry Ricci MD on 04/22/2025 07:45 PM
[2025-04-22] MEDS: LEVOTHYROXINE SODIUM 150 MCG TABLET PO (05:32)
--- NOTE | 2025-04-22 05:39 | ADMGEN ---
This patient, Yi Martino, was admitted to [facility] Surg Room 321-02. Patient/family oriented to hospital policies and general routines including ID bracelet, bed and alarms, visiting hours, pain management, procedures, bathroom and other care routines, personal items, smoking policy, room service/diet, and visiting hours. Information on how to activate the Rapid Response Team has been discussed. Patient/Family are encouraged to report perceived risks to care and to ask questions if they do not understand what they are told or what they should do.
[2025-04-22 06:16] LABS: Hematocrit 38.2 % (37.0-47.0); Hemoglobin 11.5 g/dL (12.0-15.0); Mean Corpuscular HGB Conc 30.1 g/dl (32-36); Mean Corpuscular Hemoglobin 31.4 pg (26-34); Mean Corpuscular Volume 104.4 fl (80-100); Platelet Count Result 225 k/mm3 (150-375); Red Blood Count 3.66 M/mm3 (4.2-5.4); White Blood Count 6.7 K/mm3 (4.5-10.0)
[2025-04-22 06:35] LABS: INR 2.8; Prothrombin Time 28.7 Seconds (11.1-14.7)
[2025-04-22 06:47] LABS: Alanine Aminotransferase 45 U/L (6-35); Albumin Level 3.5 g/dL (3.5-5.1); Alkaline Phosphatase 54 U/L (38-126); Anion Gap 5 mmol/L (4-12); Aspartate Amino Transferase 40 U/L (14-36); Bilirubin,Total 0.3 mg/dL (0.2-1.3); Blood Urea Nitrogen 21 mg/dL (7-17); Calcium 8.7 mg/dL (8.4-10.2); Carbon Dioxide 29 mmol/L (22-30); Chloride 103 mmol/L (98-107); Estimated CRCL calculation 37 ml/min; Estimated Glomerular Filt Rate 47; Glucose 97 mg/dL (65-110); Potassium 4.4 mmol/L (3.4-5.0); Sodium 137 mmol/L (137-145); Total Protein 6.7 g/dL (6.3-8.2)
--- NOTE | 2025-04-22 07:01 | PHAR ---
VERIFIED ZYRTEC 10MG LIQUID GELS 1 CAP PO DAILY AND SENT BACK TO FLOOR.
--- NOTE | 2025-04-22 07:47 | PC.NURSE ---
Michel from pharmacy called to verify patient's Carvedilol 12.5 mg is BID instead of once daily. Report given to CLARITZA Santos to call pharmacy pt picks up medications to verify med/ time per day.
--- NOTE | 2025-04-22 08:06 | PM.IMHP ---
H&P: HPI History of Present Illness Date/Time: 04/22/25 08:06 Chief Complaint: Dizziness Narrative: This is a 79-year-old female who presents to the ED with lightheadedness ongoing on and off for the past 2 weeks. She also sustained a ground level fall and injured her back a week ago. She went to see PCP for evaluation. She was sent to the ER for further evaluation. She reports she is not dizzy currently. In the ED evaluation her vitals were stable. Laboratory workup revealed WBC of 10.4 hemoglobin 12.9 platelet count 280. Chem panel showed sodium of 135 potassium 4.8 chloride 100 bicarbonate 29 BUN 25 creatinine 1.19 blood glucose of 114. LFTs showed AST of 53 ALT 57 alk phosphatase and total bilirubin was normal. Chest x-ray showed no acute cardiopulmonary disease. CT head showed small low-density region in the right occipital lobe. Differential includes artifact versus an area of ischemia of indeterminate age. Consider brain MRI. No acute intracranial hemorrhage. Probable chronic ischemic white matter change. Cerebral atrophy appropriate for the patient's age. Lumbar spine CT was also performed which showed no compression fracture of the lumbar spine. Multilevel degenerative change in the lumbar spine with partially visualized possible 5.8 cm right renal cyst. Renal ultrasound is recommended small hiatal hernia nondisplaced fracture the indeterminate age of the left lateral transverse process of L1-L2 L3. She is admitted in the setting for further treatment. Review of Systems Review of Systems: - CONSTITUTIONAL: Denies weight loss, fever and chills. - HEENT: Denies changes in vision and hearing - RESPIRATORY: Denies SOB and cough. - CV: Denies palpitations and CP. - GI: Denies abdominal pain, nausea, vomiting and diarrhea. - : Denies dysuria and urinary frequency. - MSK: Denies myalgia and joint pain. - SKIN: Denies rash and pruritus. - NEUROLOGICAL: Denies headache and syncope. Reports dizziness - PSYCHIATRIC: Denies recent changes in mood. Denies anxiety and depression. [facility] Past Medical History Medical History (Updated 04/21/25 @ 21:03 by James Plata MD) Chronic anticoagulation Transient ischemic attack Gastroesophageal reflux disease Chronic kidney disease Depression with anxiety Deep venous thrombosis Heart failure with reduced ejection fraction EF was 20 to 25% in March 2021. Left bundle branch block Hyperlipidemia Hypertension Hypothyroidism Cardiomyopathy Bipolar disorder Surgical History Surgical History History of colon resection History of bilateral knee arthroplasty History of repair of left rotator cuff History of bladder suspension procedure History of tonsillectomy History of cardiac catheterization History of partial hysterectomy History of orthopedic surgery Family History Family History Father Hypertension Cerebrovascular accident Mother Family history of diabetes mellitus in first degree relative Family history of lung disease Family history of coronary artery disease Sibling Family history of diabetes mellitus in first degree relative Cardiomyopathy Son Family history of mental disorder Other Family history of alcoholism Family history of arthritis Family history of gout Social History Social History Social History: Surrogate medical decision maker: Man Linton, bill. Code status: Full code. Smoking status: Never smoker Second hand tobacco smoke exposure: No Alcohol intake: never Substance use: never Substance use type: does not use Do You Feel Safe in your Home?: Yes Lack of Transportation: No Lack of Food: Never True Current Housing: I Have Housing Concerned About Future Housing: No Difficulty Paying Gas/Electric Bills: No Difficulty Paying for Meds: No Currently Unemployed: No Education: High School Diploma/GED Difficulty w/ Childcare or Family Care: No Living arrangements: with roommate(s) Additional living arrangements comments: . Has 1 child. Additional occupation/education comments: Retired from the [employer]. Spiritual care concerns: No Meds Home Medications and Allergies Home Medications ?Medication ?Instructions ?Recorded ?Confirmed ?Type trazodone 150 mg tablet 150 mg PO HS 03/22/21 04/22/25 History venlafaxine 37.5 mg 37.5 mg PO DAILY 08/22/22 04/22/25 History capsule,extended release 24 hr (Effexor XR) rosuvastatin 40 mg tablet 40 mg PO DAILY 12/27/23 04/22/25 History amiodarone 200 mg tablet 400 mg PO DAILY 01/02/24 04/22/25 History clonazepam 0.5 mg tablet 0.5 mg PO TID 01/02/24 04/22/25 History levothyroxine 150 mcg tablet 150 mcg PO DAILY 01/02/24 04/22/25 History carvedilol 12.5 mg tablet 25 mg PO DAILY 12/24/24 04/22/25 History cyanocobalamin (vitamin B-12) 1,000 mcg subcut MONTHLY 03/25/25 04/22/25 History 1,000 mcg/mL injection solution donepezil 10 mg tablet 10 mg PO HS 03/25/25 04/22/25 History famotidine 20 mg tablet 20 mg PO Q12H PRN reflux 03/25/25 04/22/25 History furosemide 40 mg tablet 40 mg PO 3XW 03/25/25 04/22/25 History losartan 50 mg tablet 50 mg PO DAILY 03/25/25 04/22/25 History ondansetron 4 mg disintegrating 8 mg PO Q12H PRN nausea and 03/25/25 04/22/25 History tablet vomiting spironolactone 25 mg tablet 25 mg PO DAILY 03/25/25 04/22/25 History guaifenesin 600 mg tablet, 600 mg PO Q12HR #20 tabs 03/31/25 04/22/25 Rx extended release 12 hr (Mucus Relief ER) warfarin 3 mg tablet 2 mg (0.6667 x 3 mg) PO DAILY #30 03/31/25 04/22/25 Rx tabs methylprednisolone 4 mg tablets in 4 mg PO DAILY 04/22/25 04/22/25 History a dose pack Allergies Allergy/AdvReac Type Severity Reaction Status Date / Time codeine Allergy Unknown Unknown Verified 04/11/25 13:09 hydroxyzine Allergy Unknown Unknown Verified 04/11/25 13:09 lorazepam Allergy Unknown Unknown Verified 04/11/25 13:09 tramadol Allergy Unknown Unknown Verified 04/11/25 13:09 NSAIDS (Non-Steroidal AdvReac Unknown Nausea Verified 04/11/25 13:09 Anti-Inflamma sumatriptan AdvReac Unknown FELT Verified 04/11/25 13:09 HORRIBLE Vital Signs Vital Signs - 24 hr 04/21/25 14:48 04/21/25 16:52 04/21/25 22:44 Temperature 97.4 F L 97.9 F Pulse Rate 58 L 60 66 Respiratory Rate 18 19 18 Blood Pressure 125/63 132/69 119/65 Pulse Oximetry 99 99 98 Oxygen Delivery Room Air 04/21/25 23:30 04/22/25 00:02 04/22/25 04:04 Temperature Pulse Rate 60 60 Respiratory Rate Blood Pressure Pulse Oximetry 98 Oxygen Delivery Room Air 04/22/25 06:00 Temperature 97.6 F Pulse Rate 60 Respiratory Rate 16 Blood Pressure 116/49 L Pulse Oximetry 98 Oxygen Delivery Exam Narrative: APPEARANCE: Well appearing, no pain, no distress, well-nourished. HEAD: normocephalic, atraumatic. EYES: PERRLA/EOMI, conjunctivae clear. NOSE: Normal no drainage NECK: Supple. No adenopathy, no masses. RESPIRATORY: Airway patent, respirations nonlabored. Clear to auscultation bilaterally, no rales, rhonchi, wheezing. CARDIOVASCULAR: Regular rate and rhythm without murmurs rubs or gallops. ABDOMINAL: Soft, nontender, nondistended, normal bowel sounds MUSCULOSKELETAL: Moves all extremities. Strength/ROM intact, No edema, No calf tenderness. NEURO: Alert. Cranial nerves II through XII intact. No focal deficits SKIN: Warm, dry. Normal Color H&P: Results Labs Labs: Short CBC 04/21/25 04/22/25 Range/Units 17:17 05:51 WBC 10.4 H 6.7 (4.5-10.0) K/mm3 Hgb 12.9 11.5 L (12.0-15.0) g/dL Hct 41.9 38.2 (37.0-47.0) % Plt Count 280 225 (150-375) k/mm3 [facility] 04/21/25 04/22/25 17:17 05:51 Sodium 135 L 137 Potassium 4.8 4.4 Chloride 100 103 Carbon Dioxide 29 29 BUN 25 H 21 H Creatinine 1.19 H 1.12 H Glucose 114 H 97 Calcium 9.2 8.7 Liver Function 04/21/25 04/22/25 Range/Units 17:17 05:51 Total Bilirubin 0.4 0.3 (0.2-1.3) mg/dL AST 53 H 40 H (14-36) U/L ALT 57 H 45 H (6-35) U/L Alkaline Phosphatase 56 54 (38-126) U/L Albumin 4.1 3.5 (3.5-5.1) g/dL Assessment and Plan Assessment and plan (1) Hypertension: Qualifiers: Hypertension type: primary hypertension Qualified Code(s): I10 - Essential (primary) hypertension Code(s): I10 - Essential (primary) hypertension Status: Chronic (2) CHF (congestive heart failure): Qualifiers: Heart failure chronicity: acute on chronic Heart failure type: combined systolic and diastolic Qualified Code(s): I50.43 - Acute on chronic combined systolic (congestive) and diastolic (congestive) heart failure Code(s): I50.9 - Heart failure, unspecified Status: Acute (3) Hyperlipidemia: Code(s): E78.5 - Hyperlipidemia, unspecified Status: Chronic (4) Chronic anticoagulation: Code(s): 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.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 Status: Acute (5) Hypothyroidism: Qualifiers: Hypothyroidism type: acquired Qualified Code(s): E03.9 - Hypothyroidism, unspecified Code(s): E03.9 - Hypothyroidism, unspecified Status: Chronic (6) Gastroesophageal reflux disease: Code(s): K21.9 - Gastro-esophageal reflux disease without esophagitis Status: Acute (7) Stage 3b chronic kidney disease: Code(s): N18.32 - Chronic kidney disease, stage 3b Status: Acute (8) CVA (cerebrovascular accident): Code(s): I63.9 - Cerebral infarction, unspecified Status: Acute (9) Dizziness: Code(s): R42 - Dizziness and giddiness Status: Acute Plan This is a 79-year-old female who presents to the ED with lightheadedness ongoing on and off for the past 2 weeks. She also sustained a ground level fall and injured her back a week ago. She went to see PCP for evaluation. She was sent to the ER for further evaluation. She reports she is not dizzy currently. In the ED evaluation her vitals were stable. Laboratory workup revealed WBC of 10.4 hemoglobin 12.9 platelet count 280. Chem panel showed sodium of 135 potassium 4.8 chloride 100 bicarbonate 29 BUN 25 creatinine 1.19 blood glucose of 114. LFTs showed AST of 53 ALT 57 alk phosphatase and total bilirubin was normal. Chest x-ray showed no acute cardiopulmonary disease. CT head showed small low-density region in the right occipital lobe. Differential includes artifact versus an area of ischemia of indeterminate age. Consider brain MRI. No acute intracranial hemorrhage. Probable chronic ischemic white matter change. Cerebral atrophy appropriate for the patient's age. Lumbar spine CT was also performed which showed no compression fracture of the lumbar spine. Multilevel degenerative change in the lumbar spine with partially visualized possible 5.8 cm right renal cyst. Renal ultrasound is recommended small hiatal hernia nondisplaced fracture the indeterminate age of the left lateral transverse process of L1-L2 L3. She is admitted in the setting for further treatment. Dizziness persistent over past [address] head with small low-density region in the right occipital lobe. Brain MRI recommended however patient has a pacemaker and 1 be able to do a bit brain MRI. Neurology to consult. Will check orthostatic blood pressure. 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 Previous echo from 2020 with ejection fraction 20-25% CKD stage 3 baseline creatinine around 1.1-1.2 Dysphagia Hypertension Hyperlipidemia Hypothyroidism GERD History of cardiac arrest with ventricular tachycardia Status post pacemaker and ICD implantation DVT prophylaxis on warfarin with therapeutic INR. Hospitalist MIPS Advance Care Plan I have confirmed that the patient's Advanced Care Plan is present, code status is documented, or surrogate decision maker is listed in patient medical record.: Yes Medication Reconciliation I have utilized all available resources to obtain, update and review the patients current medications (includes all prescriptions, OTC, herbals, cannabis, and nutritional supplements).: Yes
[2025-04-22] MEDS: LOSARTAN POTASSIUM 50 MG TABLET PO (08:50)
[2025-04-22] MEDS: AMIODARONE HCL 200 MG TABLET 400 MG PO (08:50)
[2025-04-22] MEDS: clonazePAM (*CRX) 0.5 MG TABLET PO ×3 (08:50→17:06)
[2025-04-22] MEDS: guaiFENesin 12 HR 600 MG TABCR PO ×2 (08:51→20:30)
[2025-04-22] MEDS: VENLAFAXINE HCL XR 37.5 MG CAP PO (08:51)
[2025-04-22] MEDS: CETIRIZINE 1 EACH PO (08:51)
[2025-04-22] MEDS: ROSUVASTATIN 20 MG TABLET 40 MG PO (08:51)
--- NOTE | 2025-04-22 11:49 | WPDNEURCNPN ---
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 Dizziness 2. History of recent fall resulting in the blunt trauma to the lower back number 3. Chronic anticoagulation therapy 4. Anxiety with depression 5. Bipolar illness number 6. Elevated MCV with the possibility of B12 versus folate deficient. 6. Osteoarthritic spine for [address] scan MRI is warranted 8. Possible neuropathy for which patient will benefit from the outpatient nerve conduction study. Consult date: 04/22/25 HPI: Yi Martino is a 79 year old female Admitted to the hospital through the emergency room for the complaint of lightheadedness of 2 weeks duration with subsequent ground level fall injuring her lower back, there is history of head trauma but no loss of consciousness. Patient has been taking multiple medications including trazodone 150mg at night, venlafaxine 37.5mg daily, clonazepam 0.5mg 3 times a day, carvedilol 25mg daily, furosemide 40mg 3 times a week, losartan 50mg daily, spironolactone 25mg daily, in addition to methylprednisolone 4mg p.o. daily, she does have other medications as well. She is reportedly allergic to multiple medications as outlined. In the past she has ongoing history of chronic anticoagulation therapy, TIA, chronic renal disease, anxiety with depression, cardiomyopathy, and bipolar disorder. She is never a smoker, never alcohol intaker, and on initial exam in the emergency room her neuro exam was grossly nonfocal, vital signs were normal, CBC was normal, BMP was normal, master scan was with elevated AST and ALT, CT of the head low density in the right occipital region with chronic ischemic changes and cerebral atrophy, Review of Systems Review of Systems: All systems reviewed & are unremarkable except as noted in HPI and below [facility] Past Medical History Medical History (Updated 04/22/25 @ 14:46 by Rivas Mast MD) Chronic anticoagulation Transient ischemic attack Gastroesophageal reflux disease Chronic kidney disease Depression with anxiety Deep venous thrombosis Heart failure with reduced ejection fraction EF was 20 to 25% in March 2021. Left bundle branch block Hyperlipidemia Hypertension Hypothyroidism Cardiomyopathy Bipolar disorder Surgical History Surgical History History of colon resection History of bilateral knee arthroplasty History of repair of left rotator cuff History of bladder suspension procedure History of tonsillectomy History of cardiac catheterization History of partial hysterectomy History of orthopedic surgery Family History Family History Father Hypertension Cerebrovascular accident Mother Family history of diabetes mellitus in first degree relative Family history of lung disease Family history of coronary artery disease Sibling Family history of diabetes mellitus in first degree relative Cardiomyopathy Son Family history of mental disorder Other Family history of alcoholism Family history of arthritis Family history of gout Social History Social History Social History: Surrogate medical decision maker: Man Linton, sibling. Code status: Full code. Smoking status: Never smoker Second hand tobacco smoke exposure: No Alcohol intake: never Substance use: never Substance use type: does not use Do You Feel Safe in your Home?: Yes Lack of Transportation: No Lack of Food: Never True Current Housing: I Have Housing Concerned About Future Housing: No Difficulty Paying Gas/Electric Bills: No Difficulty Paying for Meds: No Currently Unemployed: No Education: High School Diploma/GED Difficulty w/ Childcare or Family Care: No Living arrangements: with roommate(s) Additional living arrangements comments: . Has 1 child. Additional occupation/education comments: Retired from the [employer]. Spiritual care concerns: No Meds Home Medications and Allergies Home Medications ?Medication ?Instructions ?Recorded ?Confirmed ?Type trazodone 150 mg tablet 150 mg PO HS 03/22/21 04/22/25 History venlafaxine 37.5 mg 37.5 mg PO DAILY 08/22/22 04/22/25 History capsule,extended release 24 hr (Effexor XR) rosuvastatin 40 mg tablet 40 mg PO DAILY 12/27/23 04/22/25 History amiodarone 200 mg tablet 400 mg PO DAILY 01/02/24 04/22/25 History clonazepam 0.5 mg tablet 0.5 mg PO TID 01/02/24 04/22/25 History levothyroxine 150 mcg tablet 150 mcg PO DAILY 01/02/24 04/22/25 History carvedilol 12.5 mg tablet 25 mg PO DAILY 12/24/24 04/22/25 History cyanocobalamin (vitamin B-12) 1,000 mcg subcut MONTHLY 03/25/25 04/22/25 History 1,000 mcg/mL injection solution donepezil 10 mg tablet 10 mg PO HS 03/25/25 04/22/25 History famotidine 20 mg tablet 20 mg PO Q12H PRN reflux 03/25/25 04/22/25 History furosemide 40 mg tablet 40 mg PO 3XW 03/25/25 04/22/25 History losartan 50 mg tablet 50 mg PO DAILY 03/25/25 04/22/25 History ondansetron 4 mg disintegrating 8 mg PO Q12H PRN nausea and 03/25/25 04/22/25 History tablet vomiting spironolactone 25 mg tablet 25 mg PO DAILY 03/25/25 04/22/25 History guaifenesin 600 mg tablet, 600 mg PO Q12HR #20 tabs 03/31/25 04/22/25 Rx extended release 12 hr (Mucus Relief ER) warfarin 3 mg tablet 2 mg (0.6667 x 3 mg) PO DAILY #30 03/31/25 04/22/25 Rx tabs methylprednisolone 4 mg tablets in 4 mg PO DAILY 04/22/25 04/22/25 History a dose pack Allergies Allergy/AdvReac Type Severity Reaction Status Date / Time codeine Allergy Unknown Unknown Verified 04/11/25 13:09 hydroxyzine Allergy Unknown Unknown Verified 04/11/25 13:09 lorazepam Allergy Unknown Unknown Verified 04/11/25 13:09 tramadol Allergy Unknown Unknown Verified 04/11/25 13:09 NSAIDS (Non-Steroidal AdvReac Unknown Nausea Verified 04/11/25 13:09 Anti-Inflamma sumatriptan AdvReac Unknown FELT Verified 04/11/25 13:09 HORRIBLE Vital Signs Vital Signs - 24 hr 04/21/25 14:48 04/21/25 16:52 04/21/25 22:44 Temperature 36.3 C L 36.6 C Pulse Rate 58 L 60 66 Respiratory Rate 18 19 18 Blood Pressure 125/63 132/69 119/65 Pulse Oximetry 99 99 98 Oxygen Delivery Room Air 04/21/25 23:30 04/22/25 00:02 04/22/25 04:04 Temperature Pulse Rate 60 60 Respiratory Rate Blood Pressure Pulse Oximetry 98 Oxygen Delivery Room Air 04/22/25 06:00 04/22/25 08:50 Temperature 36.4 C Pulse Rate 60 60 Respiratory Rate 16 Blood Pressure 116/49 L Pulse Oximetry 98 Oxygen Delivery Exam Narrative: Exam today revealed her to be awake alert cooperative in no obvious acute distress lying in supine position in the bed and extremely receptive to the simple conversation, head normocephalic with no cranial bruit, ear nose throat examination normal, neck supple with no cervical bruit no thyromegaly no lymphadenopathy, heart regular with no murmur, lungs clear to auscultation, abdomen is soft nontender with normal bowel sounds, neurologically she is awake alert aware of being in the hospital speech not dysphasic not dysarthric not dysphonic pupils round regular quinones of vision full with no nystagmus facial sensation intact face symmetrical tongue midline uvula midline motor examination revealed her to have normal strength and tone in upper and lower extremities she was noted to have the uncontrollable movements of the upper extremities during the entire examination and occasional facial movements. Results Labs 04/22/25 05:51 04/22/25 05:51 Labs: Short CBC 04/21/25 04/22/25 Range/Units 17:17 05:51 WBC 10.4 H 6.7 (4.5-10.0) K/mm3 Hgb 12.9 11.5 L (12.0-15.0) g/dL Hct 41.9 38.2 (37.0-47.0) % Plt Count 280 225 (150-375) k/mm3 BMP 04/21/25 04/22/25 17:17 05:51 Sodium 135 L 137 Potassium 4.8 4.4 Chloride 100 103 Carbon Dioxide 29 29 BUN 25 H 21 H Creatinine 1.19 H 1.12 H Glucose 114 H 97 Calcium 9.2 8.7 Liver Function 04/21/25 04/22/25 Range/Units 17:17 05:51 Total Bilirubin 0.4 0.3 (0.2-1.3) mg/dL AST 53 H 40 H (14-36) U/L ALT 57 H 45 H (6-35) U/L Alkaline Phosphatase 56 54 (38-126) U/L Albumin 4.1 3.5 (3.5-5.1) g/dL
[2025-04-22] MEDS: WARFARIN (*PBKC) 2 MG TABLET PO (17:05)
[2025-04-22] MEDS: DONEPEZIL HCL 10 MG TABLET PO (20:28)
[2025-04-22] MEDS: ACETAMINOPHEN 325 MG TABLET 650 MG PO (23:26)
[2025-04-23] VITALS (13 sets, daily range): BP systolic 115–124; BP diastolic 54–68; PULSE 60–68; RESP 17–20; TEMP 36.1–36.7; O2SAT 94–98
[2025-04-23] MEDS: LEVOTHYROXINE SODIUM 150 MCG TABLET PO (05:20)
[2025-04-23 06:01] LABS: Hematocrit 37.4 % (37.0-47.0); Hemoglobin 11.4 g/dL (12.0-15.0); Immature Granulocyte Percent A 0.3 % (0-0.5); Lymphocytes Absolute Auto 2.59 K/mm3 (0.9-3.2); Mean Corpuscular HGB Conc 30.5 g/dl (32-36); Mean Corpuscular Hemoglobin 31.5 pg (26-34); Mean Corpuscular Volume 103.3 fl (80-100); Nucleated Red Blood Cells Absolute Auto 0.000 K/mm3 (0.0-0.012); Nucleated Red Blood Cells Perc 0.0 % (0.0-0.2); Platelet Count Result 229 k/mm3 (150-375); Red Blood Count 3.62 M/mm3 (4.2-5.4); White Blood Count 6.8 K/mm3 (4.5-10.0)
[2025-04-23 06:15] LABS: INR 2.7; Prothrombin Time 27.8 Seconds (11.1-14.7)
[2025-04-23 06:51] LABS: Alanine Aminotransferase 40 U/L (6-35); Albumin Level 3.1 g/dL (3.5-5.1); Alkaline Phosphatase 53 U/L (38-126); Anion Gap 2 mmol/L (4-12); Aspartate Amino Transferase 40 U/L (14-36); Bilirubin,Total 0.3 mg/dL (0.2-1.3); Blood Urea Nitrogen 20 mg/dL (7-17); Calcium 8.5 mg/dL (8.4-10.2); Carbon Dioxide 30 mmol/L (22-30); Chloride 104 mmol/L (98-107); Estimated CRCL calculation 35 ml/min; Estimated Glomerular Filt Rate 43; Glucose 87 mg/dL (65-110); Magnesium 2.3 mg/dL (1.6-2.3); Potassium 4.3 mmol/L (3.4-5.0); Sodium 136 mmol/L (137-145); Total Protein 6.1 g/dL (6.3-8.2)
[2025-04-23] MEDS: guaiFENesin 12 HR 600 MG TABCR PO ×2 (09:08→21:36)
[2025-04-23] MEDS: ROSUVASTATIN 20 MG TABLET 40 MG PO (09:08)
[2025-04-23] MEDS: LOSARTAN POTASSIUM 50 MG TABLET PO (09:08)
[2025-04-23] MEDS: clonazePAM (*CRX) 0.5 MG TABLET PO ×3 (09:08→16:30)
[2025-04-23] MEDS: VENLAFAXINE HCL XR 37.5 MG CAP PO (09:08)
[2025-04-23] MEDS: AMIODARONE HCL 200 MG TABLET 400 MG PO (09:08)
[2025-04-23] MEDS: CETIRIZINE 1 EACH PO (09:30)
[2025-04-23] MEDS: ACETAMINOPHEN 325 MG TABLET 650 MG PO (12:21)
--- NOTE | 2025-04-23 14:42 | P.PNIM_ITS ---
Progress Note: A&P Assessment and Plan (1) Hypertension: Qualifiers: Hypertension type: primary hypertension Qualified Code(s): I10 - Essential (primary) hypertension Code(s): I10 - Essential (primary) hypertension Status: Chronic (2) CHF (congestive heart failure): Qualifiers: Heart failure chronicity: acute on chronic Heart failure type: combined systolic and diastolic Qualified Code(s): I50.43 - Acute on chronic combined systolic (congestive) and diastolic (congestive) heart failure Code(s): I50.9 - Heart failure, unspecified Status: Acute (3) Hyperlipidemia: Code(s): E78.5 - Hyperlipidemia, unspecified Status: Chronic (4) Chronic anticoagulation: Code(s): Z79.01 - terminal operator (current) use of anticoagulants Status: Acute (5) Hypothyroidism: Qualifiers: Hypothyroidism type: acquired Qualified Code(s): E03.9 - Hypothyroidism, unspecified Code(s): E03.9 - Hypothyroidism, unspecified Status: Chronic (6) Gastroesophageal reflux disease: Code(s): K21.9 - Gastro-esophageal reflux disease without esophagitis Status: Acute (7) Stage 3b chronic kidney disease: Code(s): N18.32 - Chronic kidney disease, stage 3b Status: Acute (8) CVA (cerebrovascular accident): Qualifiers: CVA mechanism: unspecified Qualified Code(s): I63.9 - Cerebral infarction, unspecified Code(s): I63.9 - Cerebral infarction, unspecified Status: Acute (9) Dizziness: Code(s): R42 - Dizziness and giddiness Status: Acute Plan Dizziness persistent over past [address] head with small low-density region in the right occipital lobe. however patient has a pacemaker not able to get brain MRI. Neurology team on board. Orthostatic blood pressure pending May need heart monitor at time of discharge. NCV as outpatient Lumbar x-ray Nondisplaced fractures of indeterminate age of the left lateral transverse processes of L1, L2 and L3. 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 Previous echo from 2020 with ejection fraction 20-25% CKD stage 3 baseline creatinine around 1.1-1.2 Dysphagia Hypertension Hyperlipidemia Hypothyroidism GERD History of cardiac arrest with ventricular tachycardia Status post pacemaker and ICD implantation DVT prophylaxis on warfarin with therapeutic INR. Subjective Date/time seen: 04/23/25 14:42 Interval history: per HPI: This is a 79-year-old female who presents to the ED with lightheadedness ongoing on and off for the past 2 weeks. She also sustained a ground level fall and injured her back a week ago. She went to see PCP for evaluation. She was sent to the ER for further evaluation. She reports she is not dizzy currently. In the ED evaluation her vitals were stable. Laboratory workup revealed WBC of 10.4 hemoglobin 12.9 platelet count 280. Chem panel showed sodium of 135 potassium 4.8 chloride 100 bicarbonate 29 BUN 25 creatinine 1.19 blood glucose of 114. LFTs showed AST of 53 ALT 57 alk phosphatase and total bilirubin was normal. Chest x-ray showed no acute cardiopulmonary disease. CT head showed small low-density region in the right occipital lobe. Differential includes artifact versus an area of ischemia of indeterminate age. Consider brain MRI. No acute intracranial hemorrhage. Probable chronic ischemic white matter change. Cerebral atrophy appropriate for the patient's age. Lumbar spine CT was also performed which showed no compression fracture of the lumbar spine. Multilevel degenerative change in the lumbar spine with partially visualized possible 5.8 cm right renal cyst. Renal ultrasound is recommended small hiatal hernia nondisplaced fracture the indeterminate age of the left lateral transverse process of L1-L2 L3. She is admitted in the setting for further treatment. 04/23/25 Patient was examined today. Has intermittent dizziness. CT head showed :There is a small low-density region in the right occipital lobe. Differential includes artifact versus an area of ischemia of indeterminate age. If of concern, consider a brain MRI for further assessment Cannot get MRI because of AICD. Creatinine 1.21 Lumbar x-ray Nondisplaced fractures of indeterminate age of the left lateral transverse processes of L1, L2 and L3. With follow-up PT and OT recommendations Orthostatic blood pressure pending May need heart monitor at time of discharge. NCV as outpatient Review of Systems Review of Systems: - CONSTITUTIONAL: Denies weight loss, fe bipin and chills. - HEENT: Denies changes in vision and he aring - RESPIRATORY: Denies SOB and cough. - CV: Denies palpitations and CP. - GI: Denies abdominal pain, nausea, vom iting and diarrhea. - : Denies dysuria and urinary frequen cy. - MSK: Denies myalgia and joint pain. - SKIN: Denies rash and pruritus. - NEUROLOGICAL: Denies headache and sync ope. Reports dizziness - PSYCHIATRIC: Denies recent changes in mood. Denies anxiety and depression. Exam Narrative: APPEARANCE: Well appearing, no pain, no distress, well-nourished. HEAD: normocephalic, atraumatic. EYES: PERRLA/EOMI, conjunctivae clear. NOSE: Normal no drainage NECK: Supple. No adenopathy, no masses. RESPIRATORY: Airway patent, respirations nonlabored. Clear to auscultation bilaterally, no rales, rhonchi, wheezing. CARDIOVASCULAR: Regular rate and rhythm without murmurs rubs or gallops. ABDOMINAL: Soft, nontender, nondistended, normal bowel sounds MUSCULOSKELETAL: Moves all extremities. Strength/ROM intact, No edema, No calf tenderness. NEURO: Alert. Cranial nerves II through XII intact. No focal deficits SKIN: Warm, dry. Normal Color Objective Data Vital Signs Vital Signs: Vital Signs - 24 hr 04/22/25 16:00 04/22/25 20:00 04/22/25 20:04 Temperature Pulse Rate 61 60 63 Respiratory Rate Blood Pressure Pulse Oximetry Oxygen Delivery 04/22/25 20:30 04/22/25 22:00 04/23/25 00:00 Temperature 98.2 F Pulse Rate 61 63 60 Respiratory Rate 18 Blood Pressure 136/56 L Pulse Oximetry 96 Oxygen Delivery 04/23/25 04:00 04/23/25 05:31 04/23/25 08:42 Temperature 97.0 F L Pulse Rate 61 60 Respiratory Rate 17 Blood Pressure 115/54 L Pulse Oximetry 94 96 Oxygen Delivery Room Air 04/23/25 09:08 04/23/25 12:11 Temperature Pulse Rate 68 Respiratory Rate Blood Pressure Pulse Oximetry Oxygen Delivery Room Air Intake/Output Intake/Output: Intake & Output 04/20/25 04/21/25 04/22/25 04/23/25 23:59 23:59 23:59 23:59 Intake Total 1080 150 Balance 1080 150 Meds/Results Medications: Active Medications Generic Name Dose Route Start Last Admin Trade Name Freq PRN Reason Stop Dose Admin Acetaminophen 650 mg 04/22/25 23:03 04/23/25 12:21 Acetaminophen 325 Mg Tablet PO 650 mg Q6H PRN Administration Mild Pain (1-3) or Fever Al Hydrox/Mg Hydrox/Simethicone 30 ml 04/22/25 02:02 Mag Hydrox/Al Hydrox/Simeth 30 Ml Udc PO Q6H PRN Indigestion Amiodarone HCl 400 mg 04/22/25 08:00 04/23/25 09:08 Amiodarone Hcl 200 Mg Tablet PO 400 mg DAILY@0800 STAN Administration Carvedilol 25 mg 04/22/25 21:00 04/22/25 20:30 Carvedilol 12.5 Mg Tablet PO 25 mg HS STAN Administration Clonazepam 0.5 mg 04/22/25 09:00 04/23/25 12:23 Clonazepam (*Crx) 0.5 Mg Tablet PO 0.5 mg TID STAN Administration Docusate Sodium 100 mg 04/22/25 02:02 Docusate Sodium 100 Mg Capsule PO Q12H PRN Constipation Donepezil HCl 10 mg 04/22/25 21:00 04/22/25 20:28 Donepezil Hcl 10 Mg Tablet PO 10 mg HS STAN Administration Famotidine 20 mg 04/22/25 01:44 Famotidine 20 Mg Tablet PO Q12H PRN reflux Guaifenesin 600 mg 04/22/25 09:00 04/23/25 09:08 Guaifenesin 12 Hr 600 Mg Tabcr PO 600 mg Q12HR STAN Administration Levothyroxine Sodium 150 mcg 04/22/25 06:30 04/23/25 05:20 Levothyroxine Sodium 150 Mcg Tablet PO 150 mcg DAILY@0630 STAN Administration Losartan Potassium 50 mg 04/22/25 09:00 04/23/25 09:08 Losartan Potassium 50 Mg Tablet PO 50 mg DAILY STAN Administration Home Zyrtec ( 1 each 04/22/25 09:00 04/22/25 08:51 Cetirizine) 10mg PO 05/22/25 08:59 1 each Liquid Gel Cap DAILY STAN Administration Perflutren Lipid Microsphere 0 ml 04/21/25 21:32 Perflutren Lipid Microspheres 1.5 Ml Vial Diluted To 10 Ml Total Volume IV PUSH 04/24/25 21:34 ONCE PRN adequate visualization Protocol Rosuvastatin Calcium 40 mg 04/22/25 09:00 04/23/25 09:08 Rosuvastatin 20 Mg Tablet PO 40 mg DAILY STAN Administration Trazodone HCl 150 mg 04/22/25 01:50 04/22/25 20:29 Trazodone Hcl 50 Mg Tablet PO 150 mg HS STAN Administration Venlafaxine HCl 37.5 mg 04/22/25 09:00 04/23/25 09:08 Venlafaxine Hcl Xr 37.5 Mg Cap PO 37.5 mg DAILY STAN Administration Warfarin Sodium 2 mg 04/22/25 17:00 04/22/25 17:05 Warfarin (*Pbkc) 2 Mg Tablet PO 2 mg DAILY@1700 STAN Administration Radiology Results: ITS Impressions Chest X-Ray 04/21/25 16:39 IMPRESSION: 1: NO ACUTE CARDIOPULMONARY DISEASE. Head CT 04/21/25 16:40 IMPRESSION: 1. The study is slightly limited due to motion artifact. 2. There is a small low-density region in the right occipital lobe. Differential includes artifact versus an area of ischemia of indeterminate age. If of concern, consider a brain MRI for further assessment 3. No acute intracranial hemorrhage. 4. Probable chronic ischemic white matter change. 5. Cerebral atrophy appropriate for the patient's age. Lumbar Spine CT 04/21/25 16:53 IMPRESSION: 1. No compression fracture in the lumbar spine. 2. Multilevel degenerative change in the lumbar spine as detailed above. 3. Partially visualized possible 5.8 cm right renal cyst. A renal ultrasound is recommended. 4. Small hiatal hernia. 5. Nondisplaced fractures of indeterminate age of the left lateral transverse processes of L1, L2 and L3. If symptoms persist, consider an MRI of the lumbar spine for further assessment. Labs Labs: Laboratory Results - last 24 hr 04/23/25 05:44 WBC 6.8 RBC 3.62 L Hgb 11.4 L Hct 37.4 MCV 103.3 H MCH 31.5 MCHC 30.5 L RDW 14.7 H Plt Count 229 MPV 9.8 Immature Gran % (Auto) 0.3 Neut % (Auto) 46.4 Lymph % (Auto) 38.3 [place] % (Auto) 11.7 H Eos % (Auto) 2.7 Baso % (Auto) 0.6 Lymph # (Auto) 2.59 [place] # (Auto) 0.8 H Eos # (Auto) 0.2 Baso # (Auto) 0.0 Abs Immat Gran (auto) 0.02 Absolute Neuts (auto) 3.1 Absolute Nucleated RBC 0.000 Nucleated RBC % 0.0 PT 27.8 H INR 2.7 Sodium 136 L Potassium 4.3 Chloride 104 Carbon Dioxide 30 Anion Gap 2 L BUN 20 H Creatinine 1.21 H Estim Creat Clear Calc 35 Estimated GFR 43 L Glucose 87 Calcium 8.5 Magnesium 2.3 Total Bilirubin 0.3 AST 40 H ALT 40 H Alkaline Phosphatase 53 Total Protein 6.1 L Albumin 3.1 L
[2025-04-23] MEDS: FAMOTIDINE 20 MG TABLET PO (16:30)
[2025-04-23] MEDS: WARFARIN (*PBKC) 2 MG TABLET PO (16:30)
[2025-04-23] MEDS: LIDOCAINE 5% PATCH 1 PATCH TRANSDERM (16:31)
[2025-04-23] MEDS: HYDROcodone/acetaminophen (*CRX) 5-325 MG TABLET 1 TAB PO (21:35)
[2025-04-23] MEDS: DONEPEZIL HCL 10 MG TABLET PO (21:36)
[2025-04-24] VITALS (13 sets, daily range): BP systolic 98–125; BP diastolic 42–68; PULSE 60–86; RESP 18–20; TEMP 36.4–36.7; O2SAT 92–96
[2025-04-24] MEDS: HYDROcodone/acetaminophen (*CRX) 5-325 MG TABLET 1 TAB PO ×2 (04:35→16:42)
[2025-04-24] MEDS: LEVOTHYROXINE SODIUM 150 MCG TABLET PO (06:07)
[2025-04-24 06:09] LABS: Hematocrit 39.1 % (37.0-47.0); Hemoglobin 11.6 g/dL (12.0-15.0); Mean Corpuscular HGB Conc 29.7 g/dl (32-36); Mean Corpuscular Hemoglobin 31.4 pg (26-34); Mean Corpuscular Volume 106.0 fl (80-100); Platelet Count Result 211 k/mm3 (150-375); Red Blood Count 3.69 M/mm3 (4.2-5.4); White Blood Count 8.5 K/mm3 (4.5-10.0)
[2025-04-24 06:18] LABS: INR 2.7; Prothrombin Time 28.0 Seconds (11.1-14.7)
[2025-04-24 06:28] LABS: Anion Gap 4 mmol/L (4-12); Blood Urea Nitrogen 19 mg/dL (7-17); Calcium 8.6 mg/dL (8.4-10.2); Carbon Dioxide 26 mmol/L (22-30); Chloride 104 mmol/L (98-107); Estimated CRCL calculation 35 ml/min; Estimated Glomerular Filt Rate 44; Glucose 90 mg/dL (65-110); Potassium 4.1 mmol/L (3.4-5.0); Sodium 134 mmol/L (137-145)
[2025-04-24] MEDS: VENLAFAXINE HCL XR 37.5 MG CAP PO (09:21)
[2025-04-24] MEDS: guaiFENesin 12 HR 600 MG TABCR PO ×2 (09:21→20:38)
[2025-04-24] MEDS: ROSUVASTATIN 20 MG TABLET 40 MG PO (09:21)
[2025-04-24] MEDS: AMIODARONE HCL 200 MG TABLET 400 MG PO (09:21)
[2025-04-24] MEDS: clonazePAM (*CRX) 0.5 MG TABLET PO ×3 (09:22→16:43)
[2025-04-24] MEDS: CETIRIZINE 1 EACH PO (09:22)
[2025-04-24] MEDS: LIDOCAINE 5% PATCH 1 PATCH TRANSDERM (09:22)
--- NOTE | 2025-04-24 12:41 | P.PNNEUR_ITS ---
Progress Note: A&P Assessment and Plan (1) Dizziness: Code(s): R42 - Dizziness and giddiness Status: Acute (2) Chronic anticoagulation: Code(s): Z79.01 - correction (current) use of anticoagulants Status: Acute (3) Bipolar disorder: Code(s): F31.9 - Bipolar disorder, unspecified Status: Chronic (4) Stage 3b chronic kidney disease: Code(s): N18.32 - Chronic kidney disease, stage 3b Status: Acute (5) Macrocytosis without anemia: Code(s): D75.89 - Other specified diseases of blood and blood-forming organs Status: Acute Plan the patient may have some degree of postural hypertension with a blood pressure particular systolic 1 dropping down 98 I will suggest to check her blood pressur e twice a day and if there is a consistent drop in the pressure which is otherwise unexplained it may require treatment. Initially you may consider holding off some of the drugs such as trazodone and clonazepam. IV fluids can be given if necessary however this to you. Finally if the postural hypertension and symptoms there off persist a low-dose midodrine can be utilized. I shall be glad to discuss this further with the hospitalist group. Subjective Date/time seen: 04/24/25 12:41 Interval history: The patient is 79-year-old presented to the hospital with complaints of dizziness and fall. CT scan of brain shows some hypodensity in the right occipital area in addition his also generalized atrophy and some old infarcts noted on both hemispheres. Patient has a pacemaker and hence he is not able to undergo an MRI of the brain. There is history of cardiac arrest in the past also. She carries diagnosis of bipolar disorder and has tardive dyskinesia. Nursing staff noted that she has postural hypotension her blood pressure systolic dropped from 125 / 68 in sitting position to 98/[address] angiogram of the head and neck did not show any significant large vessel occlusion in December 08, 2023 study. The patient is on clonazepam and warf yosef and Aricept. She is also on amiodarone and hydrocodone and losartan. She is also on Crestor 40 mg a day and trazodone 150 mg bedtime. He is also on Effexor 37.5 mg a day. Review of Systems Review of Systems: All systems reviewed & are unremarkable except as noted in HPI and below Exam Narrative: Fully conscious alert. Patient appears to have flat affect. Notice any significant involuntary movements at this time. Examination of cranial nerves in your testing intact. Motor system normal power and tone in both upper lower limbs. Objective Data Vital Signs Vital Signs: Vital Signs - 24 hr 04/23/25 14:00 04/23/25 16:00 04/23/25 19:55 Temperature 97.8 F Pulse Rate 60 60 62 Respiratory Rate 18 Blood Pressure 124/68 Pulse Oximetry 95 Oxygen Delivery Fraction of Inspired Oxygen 04/23/25 21:35 04/23/25 21:37 04/23/25 21:50 Temperature 98.1 F Pulse Rate 62 64 60 Respiratory Rate 20 18 Blood Pressure 118/58 L Pulse Oximetry 95 98 Oxygen Delivery Room Air Fraction of Inspired Oxygen 04/24/25 00:01 04/24/25 01:28 04/24/25 04:00 Temperature Pulse Rate 60 86 74 Respiratory Rate Blood Pressure Pulse Oximetry Oxygen Delivery Fraction of Inspired Oxygen 04/24/25 06:00 04/24/25 08:00 04/24/25 09:21 Temperature 97.6 F Pulse Rate 60 60 60 Respiratory Rate 18 Blood Pressure 111/42 L Pulse Oximetry 92 Oxygen Delivery Fraction of Inspired Oxygen 04/24/25 09:30 04/24/25 09:30 Temperature Pulse Rate 60 61 Respiratory Rate Blood Pressure 125/68 98/62 L Pulse Oximetry Oxygen Delivery Fraction of Inspired Oxygen Intake/Output Intake/Output: Intake & Output 04/21/25 04/22/25 04/23/25 04/24/25 23:59 23:59 23:59 23:59 Intake Total 1080 390 0 Output Total 700 Balance 1080 390 -700 Meds/Results Medications: Active Medications Generic Name Dose Route Start Last Admin Trade Name Freq PRN Reason Stop Dose Admin Acetaminophen 650 mg 04/22/25 23:03 04/23/25 12:21 Acetaminophen 325 Mg Tablet PO 650 mg Q6H PRN Administration Mild Pain (1-3) or Fever Hydrocodone Bitart/Acetaminophen 1 tab 04/23/25 16:18 04/24/25 04:35 Hydrocodone/Acetaminophen (*Crx) 5-325 Mg Tablet PO 1 tab Q6H PRN Administration Pain Rated 4-10 Al Hydrox/Mg Hydrox/Simethicone 30 ml 04/22/25 02:02 Mag Hydrox/Al Hydrox/Simeth 30 Ml Udc PO Q6H PRN Indigestion Amiodarone HCl 400 mg 04/22/25 08:00 04/24/25 09:21 Amiodarone Hcl 200 Mg Tablet PO 400 mg DAILY@0800 STAN Administration Carvedilol 25 mg 04/22/25 21:00 04/23/25 21:35 Carvedilol 12.5 Mg Tablet PO 25 mg HS STAN Administration Clonazepam 0.5 mg 04/22/25 09:00 04/24/25 12:17 Clonazepam (*Crx) 0.5 Mg Tablet PO 0.5 mg TID STAN Administration Docusate Sodium 100 mg 04/22/25 02:02 Docusate Sodium 100 Mg Capsule PO Q12H PRN Constipation Donepezil HCl 10 mg 04/22/25 21:00 04/23/25 21:36 Donepezil Hcl 10 Mg Tablet PO 10 mg HS STAN Administration Famotidine 20 mg 04/22/25 01:44 04/23/25 16:30 Famotidine 20 Mg Tablet PO 20 mg Q12H PRN Administration reflux Guaifenesin 600 mg 04/22/25 09:00 04/24/25 09:21 Guaifenesin 12 Hr 600 Mg Tabcr PO 600 mg Q12HR STAN Administration Levothyroxine Sodium 150 mcg 04/22/25 06:30 04/24/25 06:07 Levothyroxine Sodium 150 Mcg Tablet PO 150 mcg DAILY@0630 STAN Administration Lidocaine 1 patch 04/23/25 15:55 04/24/25 09:22 Lidocaine 5% Patch TRANSDERM 1 patch DAILY STAN Administration Losartan Potassium 50 mg 04/22/25 09:00 04/24/25 09:22 Losartan Potassium 50 Mg Tablet PO Not Given DAILY [facility] Home Zyrtec ( 1 each 04/22/25 09:00 04/24/25 09:22 Cetirizine) 10mg PO 05/22/25 08:59 1 each Liquid Gel Cap DAILY STAN Administration Ondansetron HCl 4 mg 04/23/25 18:21 Ondansetron Inj 4 Mg/2 Ml Vial IV PUSH Q6H PRN Nausea And Vomiting Perflutren Lipid Microsphere 0 ml 04/21/25 21:32 Perflutren Lipid Microspheres 1.5 Ml Vial Diluted To 10 Ml Total Volume IV PUSH 04/24/25 21:34 ONCE PRN adequate visualization Protocol Rosuvastatin Calcium 40 mg 04/22/25 09:00 04/24/25 09:21 Rosuvastatin 20 Mg Tablet PO 40 mg DAILY STAN Administration Trazodone HCl 150 mg 04/22/25 01:50 04/23/25 21:36 Trazodone Hcl 50 Mg Tablet PO 150 mg HS STAN Administration Venlafaxine HCl 37.5 mg 04/22/25 09:00 04/24/25 09:21 Venlafaxine Hcl Xr 37.5 Mg Cap PO 37.5 mg DAILY STAN Administration Warfarin Sodium 2 mg 04/22/25 17:00 04/23/25 16:30 Warfarin (*Pbkc) 2 Mg Tablet PO 2 mg DAILY@1700 STAN Administration Radiology Results: ITS Impressions Chest X-Ray 04/21/25 16:39 IMPRESSION: 1: NO ACUTE CARDIOPULMONARY DISEASE. Head CT 04/21/25 16:40 IMPRESSION: 1. The study is slightly limited due to motion artifact. 2. There is a small low-density region in the right occipital lobe. Differential includes artifact versus an area of ischemia of indeterminate age. If of concern, consider a brain MRI for further assessment 3. No acute intracranial hemorrhage. 4. Probable chronic ischemic white matter change. 5. Cerebral atrophy appropriate for the patient's age. Lumbar Spine CT 04/21/25 16:53 IMPRESSION: 1. No compression fracture in the lumbar spine. 2. Multilevel degenerative change in the lumbar spine as detailed above. 3. Partially visualized possible 5.8 cm right renal cyst. A renal ultrasound is recommended. 4. Small hiatal hernia. 5. Nondisplaced fractures of indeterminate age of the left lateral transverse processes of L1, L2 and L3. If symptoms persist, consider an MRI of the lumbar spine for further assessment. Hip CT 04/24/25 09:13 IMPRESSION: 1. Mild left hip osteoarthritis. No acute osseous abnormality or joint effusion. 2. Chronic severe fatty atrophy of the left gluteus and minimus and anterior left gluteus medius muscles likely related to chronic tears of the more distal tendons with differential including sequela chronic denervation change. 3. Prominent sigmoid diverticulosis. Labs Labs: Laboratory Results - last 24 hr 04/24/25 05:40 WBC 8.5 RBC 3.69 L Hgb 11.6 L Hct 39.1 MCV 106.0 H MCH 31.4 MCHC 29.7 L RDW 14.6 H Plt Count 211 MPV 9.7 PT 28.0 H INR 2.7 Sodium 134 L Potassium 4.1 Chloride 104 Carbon Dioxide 26 Anion Gap 4 BUN 19 H Creatinine 1.18 H Estim Creat Clear Calc 35 Estimated GFR 44 L Glucose 90 Calcium 8.6
--- NOTE | 2025-04-24 13:43 | P.PNIM_ITS ---
Progress Note: A&P Assessment and Plan (1) Hypertension: Qualifiers: Hypertension type: primary hypertension Qualified Code(s): I10 - Essential (primary) hypertension Code(s): I10 - Essential (primary) hypertension Status: Chronic (2) CHF (congestive heart failure): Qualifiers: Heart failure chronicity: acute on chronic Heart failure type: combined systolic and diastolic Qualified Code(s): I50.43 - Acute on chronic combined systolic (congestive) and diastolic (congestive) heart failure Code(s): I50.9 - Heart failure, unspecified Status: Acute (3) Hyperlipidemia: Code(s): E78.5 - Hyperlipidemia, unspecified Status: Chronic (4) Chronic anticoagulation: Code(s): Z79.01 - continuous churn buttermaker (current) use of anticoagulants Status: Acute (5) Hypothyroidism: Qualifiers: Hypothyroidism type: acquired Qualified Code(s): E03.9 - Hypothyroidism, unspecified Code(s): E03.9 - Hypothyroidism, unspecified Status: Chronic (6) Gastroesophageal reflux disease: Code(s): K21.9 - Gastro-esophageal reflux disease without esophagitis Status: Acute (7) Stage 3b chronic kidney disease: Code(s): N18.32 - Chronic kidney disease, stage 3b Status: Acute (8) CVA (cerebrovascular accident): Qualifiers: CVA mechanism: unspecified Qualified Code(s): I63.9 - Cerebral infarction, unspecified Code(s): I63.9 - Cerebral infarction, unspecified Status: Acute (9) Dizziness: Code(s): R42 - Dizziness and giddiness Status: Acute Plan Patient was examined today. Has intermittent dizziness. seen by neurologist suspect orthostatic hypotension, may be related to her psych medications trazodone and clonazepam, possibly hypovolemia, may however patient has mild systolic dysfuction with EF of 45-50, and grede II diastolic dysfunction, needs to close monitoring, patient had Ct scan of the hip which showed Chronic severe fatty atrophy of the left gluteus and minimus and anterior left gluteus medius muscles likely related to chronic tears of the more distal tendons with differential including sequela chronic denervation change. will have PT/OT evaluate the patient. CT head showed :There is a small low-density region in the right occipital lobe. Differential includes artifact versus an area of ischemia of indeterminate age. If of concern, consider a brain MRI for further assessmenthowever patient has a pacemaker not able to get brain MRI. Dizziness persistent over past [address] head with small low-density region in the right occipital lobe. however patient has a pacemaker not able to get brain MRI. Neurology team on board. Orthostatic blood pressure pending May need heart monitor at time of discharge. NCV as outpatient Lumbar x-ray Nondisplaced fractures of indeterminate age of the left lateral transverse processes of L1, L2 and L3. 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 Previous echo from 2020 with ejection fraction 20-25% CKD stage 3 baseline creatinine around 1.1-1.2 Dysphagia Hypertension Hyperlipidemia Hypothyroidism GERD History of cardiac arrest with ventricular tachycardia Status post pacemaker and ICD implantation DVT prophylaxis on warfarin with therapeutic INR. Subjective Date/time seen: 04/24/25 13:43 Interval history: per HPI: This is a 79-year-old female who presents to the ED with lightheadedness ongoing on and off for the past 2 weeks. She also sustained a ground level fall and injured her back a week ago. She went to see PCP for evaluation. She was sent to the ER for further evaluation. She reports she is not dizzy currently. In the ED evaluation her vitals were stable. Laboratory workup revealed WBC of 10.4 hemoglobin 12.9 platelet count 280. Chem panel showed sodium of 135 potassium 4.8 chloride 100 bicarbonate 29 BUN 25 creatinine 1.19 blood glucose of 114. LFTs showed AST of 53 ALT 57 alk phosphatase and total bilirubin was normal. Chest x-ray showed no acute cardiopulmonary disease. CT head showed small low-density region in the right occipital lobe. Differential includes artifact versus an area of ischemia of indeterminate age. Consider brain MRI. No acute intracranial hemorrhage. Probable chronic ischemic white matter change. Cerebral atrophy appropriate for the patient's age. Lumbar spine CT was also performed which showed no compression fracture of the lumbar spine. Multilevel degenerative change in the lumbar spine with partially visualized possible 5.8 cm right renal cyst. Renal ultrasound is recommended small hiatal hernia nondisplaced fracture the indeterminate age of the left lateral transverse process of L1-L2 L3. She is admitted in the setting for further treatment. 04/24/25 Patient was examined today. Has intermittent dizziness. seen by neurologist suspect orthostatic hypotension, may be related to her psych medications trazodone and clonazepam, possibly hypovolemia, may however patient has mild systolic dysfuction with EF of 45-50, and grede II diastolic dysfunction, needs to close monitoring, patient had Ct scan of the hip which showed Chronic severe fatty atrophy of the left gluteus and minimus and anterior left gluteus medius muscles likely related to chronic tears of the more distal tendons with differential including sequela chronic denervation change. will have PT/OT evaluate the patient. CT head showed :There is a small low-density region in the right occipital lobe. Differential includes artifact versus an area of ischemia of indeterminate age. If of concern, consider a brain MRI for further assessment however patient has a pacemaker not able to get brain MRI. Creatinine 1.21 Lumbar x-ray Nondisplaced fractures of indeterminate age of the left lateral transverse processes of L1, L2 and L3. With follow-up PT and OT recommendations Orthostatic blood pressure pending May need heart monitor at time of discharge. NCV as outpatient Review of Systems Review of Systems: - CONSTITUTIONAL: Denies weight loss, fe bipin and chills. - HEENT: Denies changes in vision and he aring - RESPIRATORY: Denies SOB and cough. - CV: Denies palpitations and CP. - GI: Denies abdominal pain, nausea, vom iting and diarrhea. - : Denies dysuria and urinary frequen cy. - MSK: Denies myalgia and joint pain. - SKIN: Denies rash and pruritus. - NEUROLOGICAL: Denies headache and sync ope. Reports dizziness - PSYCHIATRIC: Denies recent changes in mood. Denies anxiety and depression. Exam Narrative: Elderly frail Patient is comfortable, NAD HEENT: eyes are clear and none icteric LUNGS:CTA HEART: RR S1S2 ABD: BS+, Soft and nontender Lower extremities: no edema SKIN: nonjaundiced Neuro: grossly intact. Objective Data Vital Signs Vital Signs: Vital Signs - 24 hr 04/23/25 14:00 04/23/25 16:00 04/23/25 19:55 Temperature 36.6 C Pulse Rate 60 60 62 Respiratory Rate 18 Blood Pressure 124/68 Pulse Oximetry 95 Oxygen Delivery Fraction of Inspired Oxygen 04/23/25 21:35 04/23/25 21:37 04/23/25 21:50 Temperature 36.7 C Pulse Rate 62 64 60 Respiratory Rate 20 18 Blood Pressure 118/58 L Pulse Oximetry 95 98 Oxygen Delivery Room Air Fraction of Inspired Oxygen 21 04/24/25 00:01 04/24/25 01:28 04/24/25 04:00 Temperature Pulse Rate 60 86 74 Respiratory Rate Blood Pressure Pulse Oximetry Oxygen Delivery Fraction of Inspired Oxygen 04/24/25 06:00 04/24/25 08:00 04/24/25 09:21 Temperature 36.4 C Pulse Rate 60 60 60 Respiratory Rate 18 Blood Pressure 111/42 L Pulse Oximetry 92 Oxygen Delivery Fraction of Inspired Oxygen 04/24/25 09:30 04/24/25 09:30 Temperature Pulse Rate 60 61 Respiratory Rate Blood Pressure 125/68 98/62 L Pulse Oximetry Oxygen Delivery Fraction of Inspired Oxygen Intake/Output Intake/Output: Intake & Output 04/21/25 04/22/25 04/23/25 04/24/25 23:59 23:59 23:59 23:59 Intake Total 1080 390 0 Output Total 700 Balance 1080 390 -700 Meds/Results Medications: Active Medications Generic Name Dose Route Start Last Admin Trade Name Freq PRN Reason Stop Dose Admin Acetaminophen 650 mg 04/22/25 23:03 04/23/25 12:21 Acetaminophen 325 Mg Tablet PO 650 mg Q6H PRN Administration Mild Pain (1-3) or Fever Hydrocodone Bitart/Acetaminophen 1 tab 04/23/25 16:18 04/24/25 04:35 Hydrocodone/Acetaminophen (*Crx) 5-325 Mg Tablet PO 1 tab Q6H PRN Administration Pain Rated 4-10 Al Hydrox/Mg Hydrox/Simethicone 30 ml 04/22/25 02:02 Mag Hydrox/Al Hydrox/Simeth 30 Ml Udc PO Q6H PRN Indigestion Amiodarone HCl 400 mg 04/22/25 08:00 04/24/25 09:21 Amiodarone Hcl 200 Mg Tablet PO 400 mg DAILY@0800 STAN Administration Carvedilol 25 mg 04/22/25 21:00 04/23/25 21:35 Carvedilol 12.5 Mg Tablet PO 25 mg HS STAN Administration Clonazepam 0.5 mg 04/22/25 09:00 04/24/25 12:17 Clonazepam (*Crx) 0.5 Mg Tablet PO 0.5 mg TID STAN Administration Docusate Sodium 100 mg 04/22/25 02:02 Docusate Sodium 100 Mg Capsule PO Q12H PRN Constipation Donepezil HCl 10 mg 04/22/25 21:00 04/23/25 21:36 Donepezil Hcl 10 Mg Tablet PO 10 mg HS STAN Administration Famotidine 20 mg 04/22/25 01:44 04/23/25 16:30 Famotidine 20 Mg Tablet PO 20 mg Q12H PRN Administration reflux Guaifenesin 600 mg 04/22/25 09:00 04/24/25 09:21 Guaifenesin 12 Hr 600 Mg Tabcr PO 600 mg Q12HR STAN Administration Levothyroxine Sodium 150 mcg 04/22/25 06:30 04/24/25 06:07 Levothyroxine Sodium 150 Mcg Tablet PO 150 mcg DAILY@0630 STAN Administration Lidocaine 1 patch 04/23/25 15:55 04/24/25 09:22 Lidocaine 5% Patch TRANSDERM 1 patch DAILY STAN Administration Losartan Potassium 50 mg 04/22/25 09:00 04/24/25 09:22 Losartan Potassium 50 Mg Tablet PO Not Given DAILY STAN Home Zyrtec ( 1 each 04/22/25 09:00 04/24/25 09:22 Cetirizine) 10mg PO 05/22/25 08:59 1 each Liquid Gel Cap DAILY STAN Administration Ondansetron HCl 4 mg 04/23/25 18:21 Ondansetron Inj 4 Mg/2 Ml Vial IV PUSH Q6H PRN Nausea And Vomiting Perflutren Lipid Microsphere 0 ml 04/21/25 21:32 Perflutren Lipid Microspheres 1.5 Ml Vial Diluted To 10 Ml Total Volume IV PUSH 04/24/25 21:34 ONCE PRN adequate visualization Protocol Rosuvastatin Calcium 40 mg 04/22/25 09:00 04/24/25 09:21 Rosuvastatin 20 Mg Tablet PO 40 mg DAILY STAN Administration Trazodone HCl 150 mg 04/22/25 01:50 04/23/25 21:36 Trazodone Hcl 50 Mg Tablet PO 150 mg HS SATN Administration Venlafaxine HCl 37.5 mg 04/22/25 09:00 04/24/25 09:21 Venlafaxine Hcl Xr 37.5 Mg Cap PO 37.5 mg DAILY STAN Administration Warfarin Sodium 2 mg 04/22/25 17:00 04/23/25 16:30 Warfarin (*Pbkc) 2 Mg Tablet PO 2 mg DAILY@1700 STAN Administration Radiology Results: ITS Impressions Chest X-Ray 04/21/25 16:39 IMPRESSION: 1: NO ACUTE CARDIOPULMONARY DISEASE. Head CT 04/21/25 16:40 IMPRESSION: 1. The study is slightly limited due to motion artifact. 2. There is a small low-density region in the right occipital lobe. Differential includes artifact versus an area of ischemia of indeterminate age. If of concern, consider a brain MRI for further assessment 3. No acute intracranial hemorrhage. 4. Probable chronic ischemic white matter change. 5. Cerebral atrophy appropriate for the patient's age. Lumbar Spine CT 04/21/25 16:53 IMPRESSION: 1. No compression fracture in the lumbar spine. 2. Multilevel degenerative change in the lumbar spine as detailed above. 3. Partially visualized possible 5.8 cm right renal cyst. A renal ultrasound is recommended. 4. Small hiatal hernia. 5. Nondisplaced fractures of indeterminate age of the left lateral transverse processes of L1, L2 and L3. If symptoms persist, consider an MRI of the lumbar spine for further assessment. Hip CT 04/24/25 09:13 IMPRESSION: 1. Mild left hip osteoarthritis. No acute osseous abnormality or joint effusion. 2. Chronic severe fatty atrophy of the left gluteus and minimus and anterior left gluteus medius muscles likely related to chronic tears of the more distal tendons with differential including sequela chronic denervation change. 3. Prominent sigmoid diverticulosis. Labs Labs: Laboratory Results - last 24 hr 04/24/25 05:40 WBC 8.5 RBC 3.69 L Hgb 11.6 L Hct 39.1 MCV 106.0 H MCH 31.4 MCHC 29.7 L RDW 14.6 H Plt Count 211 MPV 9.7 PT 28.0 H INR 2.7 Sodium 134 L Potassium 4.1 Chloride 104 Carbon Dioxide 26 Anion Gap 4 BUN 19 H Creatinine 1.18 H Estim Creat Clear Calc 35 Estimated GFR 44 L Glucose 90 Calcium 8.6
[2025-04-24] MEDS: WARFARIN (*PBKC) 2 MG TABLET PO (16:43)
[2025-04-24] MEDS: DONEPEZIL HCL 10 MG TABLET PO (20:38)
[2025-04-25] VITALS (10 sets, daily range): BP systolic 93–127; BP diastolic 48–71; PULSE 55–70; RESP 16–20; TEMP 36.4–36.6; O2SAT 94–100
[2025-04-25] MEDS: LEVOTHYROXINE SODIUM 150 MCG TABLET PO (05:38)
[2025-04-25 06:19] LABS: Hematocrit 38.9 % (37.0-47.0); Hemoglobin 11.7 g/dL (12.0-15.0); Mean Corpuscular HGB Conc 30.1 g/dl (32-36); Mean Corpuscular Hemoglobin 31.6 pg (26-34); Mean Corpuscular Volume 105.1 fl (80-100); Platelet Count Result 209 k/mm3 (150-375); Red Blood Count 3.70 M/mm3 (4.2-5.4); White Blood Count 8.5 K/mm3 (4.5-10.0)
[2025-04-25 06:28] LABS: INR 2.8; Prothrombin Time 28.4 Seconds (11.1-14.7)
[2025-04-25 06:40] LABS: Anion Gap 4 mmol/L (4-12); Blood Urea Nitrogen 19 mg/dL (7-17); Calcium 8.6 mg/dL (8.4-10.2); Carbon Dioxide 25 mmol/L (22-30); Chloride 105 mmol/L (98-107); Estimated CRCL calculation 35 ml/min; Estimated Glomerular Filt Rate 44; Glucose 101 mg/dL (65-110); Potassium 4.4 mmol/L (3.4-5.0); Sodium 134 mmol/L (137-145)
[2025-04-25] MEDS: VENLAFAXINE HCL XR 37.5 MG CAP PO (09:36)
[2025-04-25] MEDS: AMIODARONE HCL 200 MG TABLET 400 MG PO (09:36)
[2025-04-25] MEDS: guaiFENesin 12 HR 600 MG TABCR PO (09:36)
[2025-04-25] MEDS: clonazePAM (*CRX) 0.5 MG TABLET PO (09:36)
[2025-04-25] MEDS: LIDOCAINE 5% PATCH 1 PATCH TRANSDERM (09:39)
[2025-04-25] MEDS: CETIRIZINE 1 EACH PO (09:40)
[2025-04-25] MEDS: ROSUVASTATIN 20 MG TABLET 40 MG PO (09:42)
--- NOTE | 2025-04-25 14:32 | PM.DS ---
DS: Admitting Diagnosis Discharge Date 04/25/25 Admitting Diagnosis dizziness DS: Discharge Diagnosis Discharge Diagnosis (1) Hypertension: Qualifiers: Hypertension type: primary hypertension Qualified Code(s): I10 - Essential (primary) hypertension Code(s): I10 - Essential (primary) hypertension Status: Chronic (2) CHF (congestive heart failure): Qualifiers: Heart failure chronicity: acute on chronic Heart failure type: combined systolic and diastolic Qualified Code(s): I50.43 - Acute on chronic combined systolic (congestive) and diastolic (congestive) heart failure Code(s): I50.9 - Heart failure, unspecified Status: Acute (3) Hyperlipidemia: Code(s): E78.5 - Hyperlipidemia, unspecified Status: Chronic (4) Chronic anticoagulation: Code(s): Z79.01 - skilled nursing (current) use of anticoagulants Status: Acute (5) Hypothyroidism: Qualifiers: Hypothyroidism type: acquired Qualified Code(s): E03.9 - Hypothyroidism, unspecified Code(s): E03.9 - Hypothyroidism, unspecified Status: Chronic (6) Gastroesophageal reflux disease: Code(s): K21.9 - Gastro-esophageal reflux disease without esophagitis Status: Acute (7) Stage 3b chronic kidney disease: Code(s): N18.32 - Chronic kidney disease, stage 3b Status: Acute (8) CVA (cerebrovascular accident): Qualifiers: CVA mechanism: unspecified Qualified Code(s): I63.9 - Cerebral infarction, unspecified Code(s): I63.9 - Cerebral infarction, unspecified Status: Acute (9) Dizziness: Code(s): R42 - Dizziness and giddiness Status: Acute Plan Patient was examined today. Has intermittent dizziness. seen by neurologist suspect orthostatic hypotension, may be related to her psych medications trazodone and clonazepam, possibly hypovolemia, may however patient has mild systolic dysfuction with EF of 45-50, and grede II diastolic dysfunction, needs to close monitoring, patient had Ct scan of the hip which showed Chronic severe fatty atrophy of the left gluteus and minimus and anterior left gluteus medius muscles likely related to chronic tears of the more distal tendons with differential including sequela chronic denervation change. t. CT head showed :There is a small low-density region in the right occipital lobe. Differential includes artifact versus an area of ischemia of indeterminate age. If of concern, consider a brain MRI for further assessmenthowever patient has a pacemaker not able to get brain MRI. Dizziness persistent over past [address] head with small low-density region in the right occipital lobe. however patient has a pacemaker not able to get brain MRI. Neurology team on board. Orthostatic blood pressure positive will hold losartan heart monitor at time of discharge. NCV as outpatient Lumbar x-ray Nondisplaced fractures of indeterminate age of the left lateral transverse processes of L1, L2 and L3. 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 Previous echo from 2020 with ejection fraction 20-25% CKD stage 3 baseline creatinine around 1.1-1.2 Dysphagia Hypertension Hyperlipidemia Hypothyroidism GERD History of cardiac arrest with ventricular tachycardia Status post pacemaker and ICD implantation DVT prophylaxis on warfarin with therapeutic INR. DS: Summary Hospital Course Hospital Course: per HPI: This is a 79-year-old female who presents to the ED with lightheadedness ongoing on and off for the past 2 weeks. She also sustained a ground level fall and injured her back a week ago. She went to see PCP for evaluation. She was sent to the ER for further evaluation. She reports she is not dizzy currently. In the ED evaluation her vitals were stable. Laboratory workup revealed WBC of 10.4 hemoglobin 12.9 platelet count 280. Chem panel showed sodium of 135 potassium 4.8 chloride 100 bicarbonate 29 BUN 25 creatinine 1.19 blood glucose of 114. LFTs showed AST of 53 ALT 57 alk phosphatase and total bilirubin was normal. Chest x-ray showed no acute cardiopulmonary disease. CT head showed small low-density region in the right occipital lobe. Differential includes artifact versus an area of ischemia of indeterminate age. Consider brain MRI. No acute intracranial hemorrhage. Probable chronic ischemic white matter change. Cerebral atrophy appropriate for the patient's age. Lumbar spine CT was also performed which showed no compression fracture of the lumbar spine. Multilevel degenerative change in the lumbar spine with partially visualized possible 5.8 cm right renal cyst. Renal ultrasound is recommended small hiatal hernia nondisplaced fracture the indeterminate age of the left lateral transverse process of L1-L2 L3. She is admitted in the setting for further treatment. 04/23/25 Patient was examined today. Has intermittent dizziness. CT head showed :There is a small low-density region in the right occipital lobe. Differential includes artifact versus an area of ischemia of indeterminate age. If of concern, consider a brain MRI for further assessment Cannot get MRI because of AICD. Creatinine 1.21 Lumbar x-ray Nondisplaced fractures of indeterminate age of the left lateral transverse processes of L1, L2 and L3. With follow-up PT and OT recommendations Orthostatic blood pressure positive heart monitor at time of discharge. [facility] as outpatient 04/25/25 Patient was seen and examined at bedside,she is feeling better, denies any chest pain, SOb, abd pain, N/V. no acute event over night. BP stable. will hold losartan. will discharge on heart monitor Status at Discharge Overall status at discharge: patient is progressing back to baseline Time Spent with Patient Time attestation: Total time spent providing and/or coordinating discharge services: Time spent: Greater than 30 minutes Exam Narrative: Elderly frail Patient is comfortable, NAD HEENT: eyes are clear and none icteric LUNGS:CTA HEART: RR S1S2 ABD: BS+, Soft and nontender Lower extremities: no edema SKIN: nonjaundiced Neuro: grossly intact. DS: Data Data Completed and Pending Labs on day of discharge: Labs from last 24 hours 04/25/25 05:47 WBC 8.5 RBC 3.70 L Hgb 11.7 L Hct 38.9 MCV 105.1 H MCH 31.6 MCHC 30.1 L RDW 14.5 Plt Count 209 MPV 9.8 PT 28.4 H INR 2.8 Sodium 134 L Potassium 4.4 Chloride 105 Carbon Dioxide 25 Anion Gap 4 BUN 19 H Creatinine 1.19 H Estim Creat Clear Calc 35 Estimated GFR 44 L Glucose 101 Calcium 8.6 Discharge Plan Discharge Attending physician on discharge: Abilio Monsalve Consulting providers: Abilio Monsalve; Rivas Mast Discharging Clinician: Abilio Monsalve Anticipated Discharge Date/Time: 04/25/25 14:31 Patient Disposition: Home with Home Health Service Activity: as tolerated Diet: heart healthy Discharge Instructions: Care Coordination: [facility] will resume home health 04/28/25 [facility] Nursing stafff to fax discharge instructions to [facility]TT please check your blood pressure and heart rate regularly and report to PCP hold of [facility] an for now. can resume if your blood pressure running high. follow with neurology clinic as outpatient. follow with NCV test as outpatient Patient Instructions: Antibiotic Form, Heart Failure (GEN), Ischemic Stroke (GEN), Dizziness (GEN), Warfarin Toxicity (GEN) Patient Language: Belarusian Stand Alone Forms: General Discharge Information Follow-up/Referrals: Maureen,MD Masoud [Primary Care Provider, Unknown] - 1 Week Rivas Mast MD [Physician, Neurology] - Call for Appointment Discharge Medications: Continued venlafaxine [Effexor XR] 37.5 mg capsule,extended release 24hr 37.5 mg PO DAILY trazodone 150 mg tablet 150 mg PO HS carvedilol 12.5 mg tablet 25 mg PO DAILY rosuvastatin 40 mg tablet 40 mg PO DAILY levothyroxine 150 mcg Tablet 150 mcg PO DAILY amiodarone 200 mg tablet 400 mg PO DAILY clonazepam 0.5 mg tablet 0.5 mg PO TID famotidine 20 mg tablet 20 mg PO Q12H PRN (Reason: reflux) spironolactone 25 mg tablet 25 mg PO DAILY cyanocobalamin (vitamin B-12) 1,000 mcg/mL solution 1,000 mcg subcut MONTHLY donepezil 10 mg tablet 10 mg PO HS furosemide 40 mg tablet 40 mg PO 3XW Rx Instructions: -- ondansetron 4 mg tablet,disintegrating 8 mg PO Q12H PRN (Reason: nausea and vomiting) guaifenesin [Mucus Relief ER] 600 mg Tablet Extended Release 12hr 600 mg PO Q12HR Qty: 20 0RF warfarin 3 mg tablet 2 mg PO DAILY Qty: 30 0RF Discontinued methylprednisolone 4 mg tablets,dose pack 4 mg PO DAILY losartan 50 mg tablet 50 mg PO DAILY Other Ambulatory Orders: CA cardiac event monitor (Routine) Timeframe: 4 Weeks Location: Determined by Patient Ordered By: Abilio Monsalve Date of admission: 04/21/25 21:33 Primary Care Provider: MaureenMasoud Admitting Provider: Henny Fox Attending physician on admission: Henny Fox Condition: Serious
--- NOTE | 2025-04-28 07:18 | P.CDI_ITS ---
CDI Query Clarification Request Please clarify type and acuity of heart failure if known. * Acute * Chronic * Acute on Chronic * Unknown * Systolic * Diastolic * Combined Systolic and Diastolic * Unknown Plan list chronic combined CHF,while listed in acute on chronic. No BNP noted, no lasix given. 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 Previous echo from 2020 with ejection fraction 20-25% CKD stage 3 baseline creatinine around 1.1-1.2 Dysphagia Hypertension Hyperlipidemia <Allison Lawrence RN - Last Filed: 04/28/25 07:27> Clarified Diagnosis Clarified Diagnosis: chronic systolic and diastolic CHF <Abilio Monsalve MD - Last Filed: 05/11/25 22:01>
== END 2025-04-25 17:55 | disposition home health service (06) | DRG 312 ==
LOC: ANHED 20:48 → ANH3MEDSUR 22:35
PROVIDERS: Internal Medicine; Physician Assistant; Admitting Provider Internal Medicine; Emergency Provider Emergency Medicine; PCP Internal Medicine; Visit Provider Internal Medicine
DX: I95.2 Hypotension due to drugs (principal); I13.0 Hypertensive heart and chronic kidney disease with heart failure and stage 1 through stage 4 chronic kidney disease, or unspecified chronic kidney disease; I42.9 Cardiomyopathy, unspecified; I50.42 Chronic combined systolic (congestive) and diastolic (congestive) heart failure; T43.215A Adverse effect of selective serotonin and norepinephrine reuptake inhibitors, initial encounter; T42.4X5A Adverse effect of benzodiazepines, initial encounter; N18.32 Chronic kidney disease, stage 3b; K21.9 Gastro-esophageal reflux disease without esophagitis; E03.9 Hypothyroidism, unspecified; E78.5 Hyperlipidemia, unspecified; R42 Dizziness and giddiness; F31.9 Bipolar disorder, unspecified; F41.8 Other specified anxiety disorders; M47.9 Spondylosis, unspecified; R13.10 Dysphagia, unspecified; Z96.653 Presence of artificial knee joint, bilateral; Z87.01 Personal history of pneumonia (recurrent); Z79.01 Long term (current) use of anticoagulants; Z86.73 Personal history of transient ischemic attack (TIA), and cerebral infarction without residual deficits; Z86.718 Personal history of other venous thrombosis and embolism; Z90.711 Acquired absence of uterus with remaining cervical stump
CPT/HCPCS: 36415; 70450; 71046; 72131; 73700; 80048; 80053; 83735; 85025; 85027; 85610; 93005; 93306; 96374; 96375; 97110; 97162; 97165; 97530; 97535; 99285; A9270

== ENCOUNTER 2025-05-07 12:26 | Emergency (ER) | payer MEDICARE, SELFPAY ==
--- OUTSIDE RECORDS SUMMARY | 2025-05-01 08:30 | XMS_ITS ---
Author Organization [facility] [employer] [facility] Address [facility]5 [facility] [address] [address] Care Team Providers Care Lens Mounter Name Role Phone Maureen URBINA, [facility] Primary Care Provider Un available Patric De Jesus Unavailable [phone] REASON FOR VISIT 3 week follow up Social History Sex Assigned At : Social History Observation Description Sex Assigned At Female Encounters Encounter Location Date Provider Diagnosis [facility] [id number] [facility] [address] [address] 05/01/2025 Patric De Jesus Plan Of Treatment Next Appt Details Provider Name:Patric De Jesus , 05/12/2025 01:00:00 PM, [address] [facility], [address], [address], Provider Name:Patric De Jesus , 06/11/2025 01:00:00 PM, [address], [address], Provider Name:Patric De Jesus , 07/09/2025 01:00:00 PM, [address] [place] [address], [address], Progress Notes * JAILENE CHOPRA KDOB:[birth year] (79 yo F)Acc No.[id number]:05/01/2025 Patient: JAILENE BELTRAN Provider: Beck DE JESUS MD :1945 A ge:79 Y S ex:Female Date:05/01/2025 Address:[address] [place] [address] , [facility] Pcp:Masoud Reddy MD [...] Status:confirmed R29.6 Repeated falls Modified On:04/09/2025 Status:confirmed Billing Information: * Procedure Codes: * Electronic signature of Blanca De Jesus MD on 05/07/2025 at 01:56 PM CDT Sign off status: Pending * Provider: Beck DE JESUS MD Date: 0 05/01/2025 Generated for [place] donnelly/Danny/Nila on: 0 05/07/2025 01:56 PM CDT
--- NOTE | ~2025-05-07 | CT_ITS ---
EXAMINATION: CT abdomen pelvis w con DATE: 05/07/2025 16:38 INDICATION: Lower abdominal pain TECHNIQUE: Computed tomography (CT) of the abdomen and pelvis was performed with 100 cc Omnipaque 350 intravenous contrast. The dose-length product was 840.95 mGy-cm. Automated exposure control and iterative reconstruction technique were employed. COMPARISON: CT dated 10/31/2022. FINDINGS: Lung bases are unremarkable. Borderline heart size. There is a hiatal hernia. There is atrophy of the pancreatic head. The liver, spleen, adrenal glands and left kidney are unremarkable. There is large right renal cyst unchanged. Bladder is decompressed. No ureteral stones or hydronephrosis. Colonic diverticulosis without diverticulitis. No abnormal pelvic masses or fluid collections. Severe lumbar spondylosis. Chronic atrophy of the left gluteal muscles. There is scoliosis. IMPRESSION: 1. No acute abdominal abnormality. Reviewed, dictated and finalized at location O.
--- NOTE | ~2025-05-07 | CT_ITS ---
EXAMINATION: CT brain wo con DATE: 05/07/2025 15:29 INDICATION: Weakness. Falls. TECHNIQUE: Computed tomography (CT) of the head was performed without intravenous contrast. The dose-length product was 605.33 mGy-cm. Automated exposure control and iterative reconstruction technique were employed. COMPARISON: CT dated 04/21/2025 FINDINGS: Generalized atrophy. There are scattered moderate periventricular and subcortical white matter changes, most likely related to small vessel ischemic disease (microangiopathy). No ventriculomegaly or midline shift. No acute infarction, hemorrhage, mass or mass effect. There is intracranial ath erosclerosis. Paranasal sinuses and mastoids are pneumatized. No depressed skull fractures. IMPRESSION: 1. No acute intracranial abnormality. Reviewed, dictated and finalized at location O.
--- NOTE | ~2025-05-07 | XR_ITS ---
EXAM/ PROCEDURE: XR hip LT min 2V - 05/07/2025 13:10 CDT HISTORY: 79 years old Female with GLF COMPARISON: None available TECHNIQUE: Three view(s) FINDINGS/ IMPRESSION: There are no fractures or dislocations.Joint space narrowing, subchondral sclerosis, subchondral cyst formation and osteophyte formation, compatible with mild osteoarthritis. Reviewed, dictated and finalized at location N.
[2025-05-07 12:29] VITALS: BP 141/72; PULSE 65; RESP 25; O2SAT 98
[2025-05-07 12:35] VITALS: RESP 18; O2SAT 96
[2025-05-07 13:01] LABS: Hematocrit 37.2 % (37.0-47.0); Hemoglobin 11.1 g/dL (12.0-15.0); Immature Granulocyte Percent A 0.2 % (0-0.5); Lymphocytes Absolute Auto 0.96 K/mm3 (0.9-3.2); Mean Corpuscular HGB Conc 29.8 g/dl (32-36); Mean Corpuscular Hemoglobin 31.1 pg (26-34); Mean Corpuscular Volume 104.2 fl (80-100); Nucleated Red Blood Cells Absolute Auto 0.000 K/mm3 (0.0-0.012); Nucleated Red Blood Cells Perc 0.0 % (0.0-0.2); Platelet Count Result 201 k/mm3 (150-375); Red Blood Count 3.57 M/mm3 (4.2-5.4); White Blood Count 5.4 K/mm3 (4.5-10.0)
[2025-05-07 13:19] LABS: Alanine Aminotransferase 28 U/L (6-35); Albumin Level 3.8 g/dL (3.5-5.1); Alkaline Phosphatase 73 U/L (38-126); Anion Gap 9 mmol/L (4-12); Aspartate Amino Transferase 38 U/L (14-36); Bilirubin,Total 0.3 mg/dL (0.2-1.3); Blood Urea Nitrogen 12 mg/dL (7-17); Calcium 9.0 mg/dL (8.4-10.2); Carbon Dioxide 27 mmol/L (22-30); Chloride 104 mmol/L (98-107); Estimated CRCL calculation 31 ml/min; Estimated Glomerular Filt Rate 38; Glucose 116 mg/dL (65-110); Potassium 4.3 mmol/L (3.4-5.0); Sodium 140 mmol/L (137-145); Total Protein 7.4 g/dL (6.3-8.2)
[2025-05-07 13:21] LABS: Macrocytosis 1+ (NORMAL); Schistocytes None Seen
[2025-05-07 13:22] LABS: Ovalocytes Occasional
--- OUTSIDE RECORDS SUMMARY | 2025-05-07 13:56 | XMS_ITS | Patient Health Record ---
Author Organization [facility] [employer] [facility] Address [address] [facility] [address] [place] [address] Care Team Providers Care Nurse Tech Name Role Phone Maureen URBINA, Masoud Primary Care Provider Un available Patric Amaya Unavailable [phone] Allergies Allergen (clinical drug ingredient) Drug/Non Drug [...] Date End Date Status Spironolactone 25 MG Tablet Oral; Duration: 30 Days Acti ve Warfarin Sodium 3 MG Tablet Oral 01/12/2024 Active Carvedilol 25 MG Tablet TAKE 1/2 (ONE-LOPEZ LF) TABLET BY MOUTH TWICE DAILY WITH MEALS Oral; Duration: 30 Days Active Famotidine 20 MG Tablet TAKE 1 TABLET BY MOUTH TWICE DAILY NEEDED Oral; Duration: 90 Days Active clonazePAM 0.5 MG Tablet 1 tablet Oral t hree times a day; Duration: 30 days 04/09/2025 Active Amiodarone HCl 200 MG Tablet Oral; Duration: 60 Days Acti ve rOPINIRole HCl 0.5 MG Tablet TAKE 1 TABLET BY MOUTH ONCE DAILY AT BEDTIME FOR 90 DAYS; Duration: 90 Active traZODone HCl 150 MG Tablet 1.5 tablet at bedtime Oral Once a day; Duration: 30 days 09/13/2024 Active Furosemide 40 MG Tablet TAKE 1 TABLET BY MOUTH THREE TIMES A WEEK Oral; Duration: 84 Days Active Cyanocobalamin 1000 MCG/ML Solution INJECT 1ML INTRAMUSCULARLY ONCE EVERY MONTH Injection; Duration: 90 Days Active traZODone HCl 150 MG Tablet 1.5 tablet at bedtime Oral Once a day; Duration: 90 days Active Vraylar 1.5 MG Capsule 1 capsule at bedt raquel Oral every other day; Duration: 30 days Samples Active Venlafaxine HCl ER 37.5 MG Capsule Extended Release 24 Hour 1 capsule with food Orally Once a day; Duration: 90 days Active Ondansetron HCl 4 MG Tablet TAKE 1 TABLET BY MOUTH TWICE DAILY NEEDED Oral; Duration: 5 Days Active Donepezil HCl 10 MG Tablet 1 tablet at bedtime Oral Once a [...] Vaccine 1st dose Unknown 02/22/2022 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 Pfizer Biontech Covid-19 Vac cine 2nd dose Unknown 05/26/2022 Administered Pneumococcal conjugate PCV 13 Unknown 05/15/2018 Admini stered Pneumococcal polysaccharide PPV23 Unknown 04/06/2016 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 Zoster Unknown 01/04/2018 Administered Social History Tobacco Use: Social History Observation Description Date Details (start date - stop date) Never Smoker NA - NA Sex Assigned At : Social History Observation Description Sex Assigned At Female Social History Drug/Alcohol: Social Info Question Answer Notes AUDIT-C (Standard) Did you have a drink containing alcohol in the past year? No Points 0 Interpretation Negative Tobacco Use: Social Info Question Answer Notes Tobacco Control (Standard) Tobacco use: Nonsmoker Additional Details Category Social Info Options Details Migrated Social History Migrated Social History Alcohol Intake: None 08/16/2018,Tobacco Years: Never smoker 08/16/2018,Smoking Status: 0 08/11/2023 Section Notes: Diet: Avoids Red Meat Due [...] Problem Bipolar affective disorder, currently depressed, mild (773926525) Bipolar disorder, current episode depressed, mild (F31.31) Active confirmed Problem Generalized anxiety disorder (87633666) Generalized anxiety disorder (F41.1) Active confirmed Problem Primary insomnia (1354971) Primary insomnia (F51.01) Active confirmed Problem Alzheimer's disease with late onset (003656164) Alzheimer's disease with late onset (G30.1) Active confirmed Problem Cardiomyopathy (81014739) Cardiomyopathy, unspecified (I42.9) Active confirmed Problem Heart failure (91882793) Heart failure, unspecified (I50.9) Active confirmed Problem Recurrent falls (724358111) Repeated falls (R29.6) Active confirmed Problem Generalized anxiety disorder (96665759) [place] (generalized anxiety disorder) (F41.1) Active confirmed Problem Hyperlipidemia (38710926) Hyperlipidemia (E78.5) 03/22/20 Active confirmed Problem Hypothyroidism (07747862) Hypothyroidism (E03.9) 03/22/20 21 Active confirmed Problem Cardiomyopathy (80247368) Cardiomyopathy (I42.9) 03/22/20 21 Active confirmed Problem Left bundle branch block (80504956) Left bundle branch block (LBBB) (I44.7) 03/23/20 21 Active confirmed Problem Ventricular tachycardia (disorder) (77360275) VT (ventricular tachycardia) (I47.20) 04/12/20 21 Active confirmed Problem Automatic implantable cardiac defibrillator in situ (553606021) ICD (implantable cardioverter-defi brillator), biventricular, in situ (Z95.810) 04/21/20 23 Active confirmed Vital Signs Heart Rate 62 /min 03/12/2025 Height-cm 165.10 cm 04/09/2025 Blood pressure diastolic 75 mm Hg 04/09/2025 Weight-kg 81.65 kg 02/13/2025 Height 65.00 in 04/09/2025 Blood pressure systolic 130 mm Hg 04/09/2025 Weight 180, 180.0 lbs 02/13/2025 BMI 29.95 kg/m2 02/13/2025 Encounters Encounter Location Date Provider Diagnosis [facility] [employer] [place] [address] [facility] [address] [facility] [address] [place] [address] 05/13/2024 Patric Jose Luis Bipolar disorder, current episode depressed, mild F31.31 ; Cardiomyopathy, unspecified I42.9 ; Primary insomnia F51.01 ; Alzheimer's disease with late onset G30.1 and CAM[place] (generalized anxiety disorder) F41.1 [facility] [place] [address] [facility] [address] [facility] [address] [place] [address] 06/14/2024 Patric Jose Luis Bipolar disorder, current episode depressed, mild F31.31 ; Cardiomyopathy, unspecified I42.9 ; Primary insomnia F51.01 ; Alzheimer's disease with late onset G30.1 ; CAM[place] (generalized anxiety disorder) F41.1 ; Hyperlipidemia E78.5 ; Left bundle branch block (LBBB) I44.7 and Hypothyroidism E03.9 [facility] [address] [facility] [address] [facility] [address] [place] [address] 07/15/2024 Patric Jose Luis Bipolar disorder, current episode depressed, mild F31.31 ; Cardiomyopathy, unspecified I42.9 ; Primary insomnia F51.01 ; Alzheimer's disease with late onset G30.1 ; CAMDEN (generalized anxiety disorder) F41.1 ; Hyperlipidemia E78.5 ; Left bundle branch block (LBBB) I44.7 and Hypothyroidism E03.[address] [address] 09/19/2024 Patric Jose Luis Bipolar disorder, current episode depressed, mild F31.31 ; Cardiomyopathy, unspecified I42.9 ; Primary insomnia F51.01 ; Alzheimer's disease with late onset G30.1 ; CAM[place] (generalized anxiety disorder) F41.1 ; Hyperlipidemia E78.5 ; Left bundle branch block (LBBB) I44.7 and Hypothyroidism E03.[address] [address] 10/17/2024 Patric Jose Luis Bipolar disorder, current episode depressed, mild F31.31 ; Primary insomnia F51.01 ; Alzheimer's disease with late onset G30.1 ; CAM[place] (generalized anxiety disorder) F41.1 ; Hyperlipidemia E78.5 and Hypothyroidism E03.[address] [address] 11/14/2024 Patric Jose Luis Encounter for screen ing for depression Z13.31 ; Encounter for screening for cardiovascular disorders Z13.6 ; Bipolar disorder, current episode depressed, mild F31.31 ; Primary insomnia F51.01 ; Alzheimer's disease with late onset G30.1 ; CAMDEN (generalized anxiety disorder) F41.1 ; Hyperlipidemia E78.5 and Hypothyroidism E03.9 [facility] [address] [address] 12/12/2024 Patric Jose Luis Encounter for screen ing for cardiovascular disorders Z13.6 ; Encounter for screening for depression Z13.31 ; Bipolar disorder, current episode depressed, mild F31.31 ; Primary insomnia F51.01 ; Alzheimer's disease with late onset G30.1 ; CAM[place] (generalized anxiety disorder) F41.1 ; Hyperlipidemia E78.5 and Hypothyroidism E03.[address] [facility] [address] [place] [address] 01/09/2025 Patric Jose Luis Bipolar disorder, current episode depressed, mild F31.31 ; Primary insomnia F51.01 ; Alzheimer's disease with late onset G30.1 ; CAMDEN (generalized anxiety disorder) F41.1 ; Negative depression screening Z13.31 and Encounter for screening for cardiovascular disorders Z13.[address] [facility] [address] [place] [address] 02/13/2025 Patric Jose Luis Bipolar disorder, current episode depressed, mild F31.31 ; Primary insomnia F51.01 ; Alzheimer's disease with late onset G30.1 ; Dietary counseling and surveillance Z71.3 ; CAMDEN (generalized anxiety disorder) F41.1 ; Encounter for screening for cardiovascular disorders Z13.6 and Encounter for screening for depression Z13.[address] [facility] [address] [place] [address] 03/12/2025 Patric Jose Luis Bipolar disorder, current episode depressed, mild F31.31 ; Primary insomnia F51.01 ; Alzheimer's disease with late onset G30.1 ; CAM[place] (generalized anxiety disorder) F41.1 and Heart failure, unspecified I50.[address] [facility] [address] [place] [address] 04/09/2025 Patric Jose Luis Bipolar disorder, current episode depressed, mild F31.31 ; Primary insomnia F51.01 ; Alzheimer's disease with late onset G30.1 ; [place] (generalized anxiety disorder) F41.1 and Repeated falls R29.[address] [facility] [address] [place] [address] 08/16/2024 Patric Jose Luis Generalized anxiety disorder F41.[address] [facility] [address] [place] [address] 09/13/2024 Patric Jose Luis Generalized anxiety disorder F41.1 and Primary insomnia F51.[address] [facility] [address] [place] [address] 11/26/2024 Patric Jose Luis [address] [facility] [address] [place] [address] 03/28/2025 Patric Jose Luis Assessments Encounter Date [...] be confirmed. - Consider referral to a liquid yeast supervisor or security program manager for further evaluation and management. Bipolar Disorder [...] Healthcare Access - Assessment: The patient has [employer] insurance and is concerned about potential changes in network coverage, specifically mentioning [place] potentially going out of network. - Plan: [...] devices or physical therapy if needed. 05/13/2024 Bipolar disorder, current episode depressed, [...] Plan: Encourage patient to follow up with liquid yeast supervisor and primary care physician for further evaluation [...] Support - Assessment: Patient is working with [employer] for Medicaid application, despite concerns about [...] Plan: Encourage patient to follow up with liquid yeast supervisor and primary care physician for further evaluation [...] Support - Assessment: Patient is working with [employer] for Medicaid application, despite concerns about [...] be confirmed. - Consider referral to a liquid yeast supervisor or security program manager for further evaluation and management. Bipolar Disorder [...] Healthcare Access - Assessment: The patient has [employer] insurance and is concerned about potential changes in network coverage, specifically mentioning [place] potentially going out of network. - Plan: [...] be confirmed. - Consider referral to a liquid yeast supervisor or security program manager for further evaluation and management. Bipolar Disorder [...] Healthcare Access - Assessment: The patient has [employer] insurance and is concerned about potential changes in network coverage, specifically mentioning [place] potentially going out of network. - Plan: [...] Support - Assessment: Patient is working with [employer] for Medicaid application, despite concerns about eligibility. [...] Plan: Encourage patient to follow up with liquid yeast supervisor and primary care physician for further evaluation [...] Plan: Encourage patient to follow up with liquid yeast supervisor and primary care physician for further evaluation [...] Support - Assessment: Patient is working with [employer] for Medicaid application, despite concerns about eligibility. [...] be confirmed. - Consider referral to a liquid yeast supervisor or security program manager for further evaluation and management. Bipolar Disorder [...] Healthcare Access - Assessment: The patient has [employer] insurance and is concerned about potential changes in network coverage, specifically mentioning [place] potentially going out of network. - Plan: [...] be confirmed. - Consider referral to a liquid yeast supervisor or security program manager for further evaluation and management. Bipolar Disorder [...] Healthcare Access - Assessment: The patient has [employer] insurance and is concerned about potential changes in network coverage, specifically mentioning [place] potentially going out of network. - Plan: [...] Support - Assessment: Patient is working with [employer] for Medicaid application, despite concerns about eligibility. [...] Plan: Encourage patient to follow up with liquid yeast supervisor and primary care physician for further evaluation [...] and Cardiomyopathy - Assessment: Patient saw Dr. Gregroy, who confirmed the patient's heart is weak. [...] Support - Assessment: Patient is working with [employer] for Medicaid application, despite concerns about eligibility. [...] be confirmed. - Consider referral to a liquid yeast supervisor or security program manager for further evaluation and management. Bipolar Disorder [...] Healthcare Access - Assessment: The patient has [employer] insurance and is concerned about potential changes in network coverage, specifically mentioning [place] potentially going out of network. - Plan: [...] Support - Assessment: Patient is working with [employer] for Medicaid application, despite concerns about eligibility. [...] be confirmed. - Consider referral to a liquid yeast supervisor or security program manager for further evaluation and management. Bipolar Disorder [...] Healthcare Access - Assessment: The patient has [employer] insurance and is concerned about potential changes in network coverage, specifically mentioning [place] potentially going out of network. - Plan: [...] be confirmed. - Consider referral to a liquid yeast supervisor or security program manager for further evaluation and management. Bipolar Disorder [...] Healthcare Access - Assessment: The patient has [employer] insurance and is concerned about potential changes in network coverage, specifically mentioning [place] potentially going out of network. - Plan: [...] Support - Assessment: Patient is working with [employer] for Medicaid application, despite concerns about eligibility. [...] Plan: Encourage patient to follow up with liquid yeast supervisor and primary care physician for further evaluation [...] and Referral Center (ADEAR) ( ; http://www.jorge.n .gov/Alzheimer s/), Sciatica Pain - Assessment: Patient reports [...] and Referral Center (ADEAR) ( ; http://www.jorge.n .gov/Alzheimer s/), Anxiety - Assessment: Patient reports increased anxiety with elevated heart rate (84, usually 65). - Plan: - Continue current medications. - Monitor for changes in anxiety levels. Kidney Function - Assessment: Patient has a history of hospitalization due to Furosemide (Lasix) issue. Upcoming appointment with machine setter supervisor on the . - Plan: - Monitor [...] member for money and food. Power of communication equipment repairer is with brother Mauricio Pacheco. - Plan: - Encourage patient to discuss financial concerns with power of communication equipment repairer and establish boundaries with family members. Bipolar [...] cardiac device monitoring - Follow up with liquid yeast supervisor as scheduled in February Gambling Urges Assessment: [...] without a caregiver for 2 months. A lead customer service representative from an aging services organization has contacted [employer] to address this issue. Plan: - Follow up on the status of caregiver assignment through [employer] Disclaimer: This note has been transcribed using speech recognition software and serves as a reflection of the patient's visit. While efforts have been made to ensure accuracy, there may be errors, including profile stitching machine operator inaccuracies and misspellings of medication names. This document should not be considered a verbatim record, and any discrepancies should be verified with the provider. 01/09/2025 Other Medication Management and Access - Assessment: Patient reports discontinuation of Entresto due to loss of sample access and high ziq-cy-hxaoem costs (approximately $600/month). This has led to [...] or reduced-cost medications. - Follow up with liquid yeast supervisor (Dr. Rodriguez) regarding medication changes and current [...] and daily functioning. - Consider referral to nursing home social worker for additional support if needed. [...] without using your hands.3. Strength Training Exercises- Hgi-rm-kwxdz: rise from a chair repeatedly.- Wall push-ups: [...] Next Appt Details Provider Name:Patric Amaya , 05/12/2025 01:00:00 PM, [address], [address], [address], Provider Name:Patric Amaya , 06/11/2025 01:00:00 PM, [address], [facility] [address], [place], [address], Provider Name:Patric Amaya , 07/09/2025 01:00:00 PM, [address], [facility] [address], [place], [address], Insurance Providers Payer Name Payer Address Payer Phone Subscriber Number Group Number Insured Name Patient Relationship to Insured Coverage Start Date Coverage End Date [facility] Medicare Replacement/ Advantage - Ppo [address] [address] [place] [address] [id number] [employer] Self - patient is the insured Medical [...] Date(Month/Year) Implantation of cardiac defibrillator libby cook ([id number]) 04/12/2021 Hospitalization History Reason Date(Month/Year) Fall and pneumonia, a week ago monday
--- OUTSIDE RECORDS SUMMARY | 2025-05-07 13:56 | XMS_ITS | Encounter Summary ---
Author Organization [facility] [employer] Address [address] [facility] [address] [place] [address] Care Team Providers Care Commercial Loan Processor Name Role Phone Lana Tovar MD Primary Care Provider + Lana Tovar MD Primary Care Provider + Bandar Gaffney MD Unavailable [phone] Dillan Reddy MD Primary Care Provide r Encounter Details Date Type Department Care Team (Late st Contact Info) Description 2016 Orders Only [facility] ProviderSaurabh MD [address] [place] [address] Social History Tobacco Use Types Packs/Day Years Used Date Smoking Tobacco: Never Alcohol Use Standard Drinks/Week Comments No 0 (1 standard drink = 0.6 oz pur e alcohol) Comments Unknown Sex and Gender Information Value Date Recorded Sex Assigned at Not on file 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
--- OUTSIDE RECORDS SUMMARY | 2025-05-07 13:56 | XMS_ITS | Encounter Summary ---
Author Organization [facility] Healthcare Address [address] [place] [address] Care Team Providers Care Burn Center Nurse Name Role Phone Bandar Gaffney MD Unavailable [phone] Dillan Reddy MD Primary Care Provide r Encounter Details Date Type Department Care Team (Late st Contact Info) Description 12/04/2024 Telephone [facility] Group Cardiology [address] [facility] [address] [place] [address] Samy Ceja MD [address] [facility] [address] [place] [address] Social History Tobacco Use Types [...] often do you attend chur ch or confucianism services? 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
--- OUTSIDE RECORDS SUMMARY | 2025-05-07 13:56 | XMS_ITS | Clinical Summary ---
Author Organization [facility] Address [address] [place] [address] Care Team Providers Care Icu Registered Nurse Name Role Phone Unavailable Primary Care Provider [...] COVID-19 Vaccine ( - 2023-2 5 season) 2025 Meningococcal B Vaccine Aged Out No l onger eligible based on patient's age to complete this topic Meningococcal Vaccine Aged Out No graciela yovana eligible based on patient's age to complete this topic RSV Immunizations Under 20 Months Aged Out No longer eligible based on patient's age to complete this topic Advance Directives Documents on File Type Date Recorded Patient Aquaculture Worker Expl anation Advance Directives and Living Will 01/14/2016 12:00 AM [employer] DIRECTIVES
--- OUTSIDE RECORDS SUMMARY | 2025-05-07 13:56 | XMS_ITS | Encounter Summary ---
Author Organization [facility] Healthcare Address [address] [place] [address] Care Team Providers Care Sales Agent Trading Stamps Name Role Phone Lana Tovar MD Primary Care Provider + Bandar Gaffney MD Unavailable [phone] Dillan Reddy MD Primary Care Provide r Encounter Details Date Type Department Care Team (Late st Contact Info) Description 01/17/2018 Orders Only [facility] Health Information Management [address] [place] [address] Scanning, Provider Social History Tobacco Use Types Packs/Day Years Used Date Smoking Tobacco: Never Alcohol Use Standard Drinks/Week Comments No 0 (1 standard drink = 0.6 oz pur e alcohol) Comments Unknown Sex and Gender Information Value Date Recorded Sex Assigned at Not on file 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
--- OUTSIDE RECORDS SUMMARY | 2025-05-07 13:56 | XMS_ITS | Encounter Summary ---
Author Organization [facility] Healthcare Address [address] [place] [address] Care Team Providers Care Metal Forger'S Assistant Name Role Phone Lana Tovar MD Primary Care Provider + Bandar Gaffney MD Unavailable [phone] Dillan Reddy MD Primary Care Provide r Encounter Details Date Type Department Care Team (Late st Contact Info) Description 03/26/2018 Orders Only [facility] Health Information Management [address] [place] [address] Scanning, Provider Social History Tobacco Use Types Packs/Day Years Used Date Smoking Tobacco: Never Smokeless Tobacco: Never Alcohol Use Standard Drinks/Week Comments No 0 (1 standard drink = 0.6 oz pur e alcohol) Comments Unknown Sex and Gender Information Value Date Recorded Sex Assigned at Not on file 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
--- OUTSIDE RECORDS SUMMARY | 2025-05-07 13:56 | XMS_ITS | Clinical Summary ---
Author Organization [facility] Address [address] [place] [address] Phone Care Team Providers Care Well Cleaner Name Role Phone Lana Tovar MD Primary [...] 1-dose 75+ series) 2020 Influenza Immunization (#1) 2025 092 10/2021, 06/12/2021, 05/12/2020, Additional history exists SARS-COV-2 Immunization ( season) 2025 05/26/2022, 02/22/2022, 06/30/2021, Additional history exists Colonoscopy Discontinued 01/18/2017 Colorectal [...] to complete this topic Insurance MEDICARE C [facility] Care Teams Well Cleaner Relationship Specialty Start Date End Date Lana Tovar MD [address] [place] [id number] PCP - General Family Medicine 12/23/16
--- OUTSIDE RECORDS SUMMARY | 2025-05-07 13:56 | XMS_ITS | Clinical Summary ---
Author Organization [facility] [address] Address [address] [place] [address] Care Team Providers Care Software Test Technician Name Role Phone Bandar Gaffney MD Unavailable [phone] Dillan Reddy MD Primary Care Provide r [...] in situ 04/13/2021 Overview (04/21/2023): Dodge DDD Tynan BI-V ICD imp on 04/12/21 for DCM, [...] Description 02/19/2025 1:30 PM CDT Ancillary Procedure [facility] [address] [place] [phone] Dilated cardiomyopathy (HCC); VT (ventricular tachycardia) (HCC); ICD (implantable cardioverter-defibrill ator), biventricular, in situ; Paroxysmal atrial fibrillation (HCC) 02/10/2025 Telephone [facility] [address] [place] [phone] Samy Ceja MD from Last 3 [...] often do you attend chur ch or orthodox services? 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 [employer]IF[employer] Gender Identity Not on file Sexual Orientation [...] Fall Risk Assessment 03/26/2024 03/26/2023 Covid-19 Vaccine ( - 2024-2 6 season) 2025 05/26/2022, 02/22/2022, 06/30/2021, Additional history exists Influenza Vaccine (#1) 2025 , 05/12/2020, 06/04/2019, Additional history exists Zoster Vaccine Completed 05/01/2018, 01/04/2018 Pneumococcal vaccine 65+ Completed 05/15/2018, 11/2015 Medical Devices Implanted Type Area Customs Entry Writer Device Identifier Shelf Expiration Date Model / Serial / Lot Dodge Vascular [id number] Defib Cardiac [id number] Tynan Hf Df4 Is-4 Is-1 Cnctr - [id number] - [id number] Implanted:Qty: 1 on 04/12/2021 by Bandar Gaffney MD at [facility] ICD [employer] V[employer] [id number] 02/01/2023 C [id number] / [id number] / [employer] 7120q/65 Durata 7fr 65cm 2 Coil Df-4 True Bipolar Active Fixation - [id number] - [id number] Implanted:Qty: 1 on 04/12/2021 by Bandar Gaffney MD at [facility] Lead [employer] [id number] 02/01/2022 7120Q/65 / [id number] / [employer] 2088tc/52 Tendril Sts 6fr 52cm Is-1 Connector Active Fixation Bipolar Soft - [id number] - [id number] Implanted:Qty: 1 on 04/12/2021 by Bandar Gaffney MD at [facility] Lead [employer] [id number] 03/03/2024 2088TC/52 / [id number] / [employer] 1458q/86 Quartet 5fr [id number] 4 Electrode Is-4 Connector Steerable Tip - [id number] - [id number] Implanted:Qty: 1 on 04/12/2021 by Bandar Gaffney MD at [facility] Lead [employer] [id number] 02/02/2024 1458Q/86 / [id number] / Procedures Procedure Name Priority Date/Time Associated [...] Narrative 02/25/2025 12:51 PM CDT Dodge DDD Tynan BI-V ICD imp on 04/12/21 for DCM, [...] See scanned report. Office device f/u 05/27/2026. Nocona remote f/u 05/27/2025. Dulce Gutierrez, CLARITZA Samy Ceja MD [facility] PROC EDURES Final Result from Last [address] [place] [address] [place] [phone] [facility] Address: [facility] [id number] [place] [phone] [facility] MEDIC[facility] Address: [facility] [address] [place] [address] [facility] MEDICARE [facility]AGE [facility] Address: [place] [id number] [place] [id number] Advance Directives For more information, please contact: [phone] * Full Code (Latest Code Status on File) Date Activated Date Inactivated Comments 03/23/2023 7:04 AM 03/26/2023 7:27 PM Care Teams Software Test Technician Relationship Specialty Start Date End Date Dillan Reddy MD [address] [facility] [address] [place] [address] PCP - General Internal Medicine 11/09/23 Bandar Gaffney MD Consulting Physician Cardiology 04/13/21
--- NOTE | 2025-05-07 14:17 | ECG_ITS ---
Test Date: 2025-05-07 14:49:32 Measurements Intervals [place] Rate: 60 P: 249 MS: 123 QRS: 248 QRSD: 162 T: 81 QT: 516 QTc: 516 Interpretive Statements ELECTRONIC ATRIAL PACEMAKER ELECTRONIC VENTRICULAR PACEMAKER ATYPICAL ECG Compared to ECG 04/21/2025 17:10:07 No significant changes Electronically Signed On 05-07-2025 15:44:12 CDT by Leroy Seo M.D.
[2025-05-07] MEDS: LACTATED RINGERS 300 ML 999 ML IV CONT (15:07)
[2025-05-07] MEDS: LACTATED RINGERS 1,000 ML 999 ML IV CONT ×2 (15:07)
[2025-05-07 15:10] LABS: Fractional Inspired Oxygen 21 %; HCO3 VBG 24.5 mEq/l (24.0-30.0); PCO2 VBG 37.9 mmHg (42.0-48.0); PO2 VBG 45.8 mmHg (35.0-45.0)
[2025-05-07 15:11] LABS: pH VBG 7.429 (7.300-7.400)
[2025-05-07 15:22] LABS: Influenza A QL RT-PCR Negative (Negative); Influenza B QL RT-PCR Negative (Negative); RSV RNA, RT-PCR Negative (Negative); SARS-CoV-2 RNA PCR Negative (Negative)
--- NOTE | 2025-05-07 15:25 | PC.NURSE ---
Pt to CT at this time.
--- NOTE | 2025-05-07 15:26 | PCRCNOTE ---
VBG results obtained after the 30 minute helena due to VBG unable to be drawn by nurse. Assistance needed then collected. Results entered.
--- NOTE | 2025-05-07 15:38 | ED.GENADULT ---
HPI - General Adult General Chief complaint: Recheck/Abnormal Lab/Rx Stated complaint: abd pain with bradycardia Time Seen by Provider: 05/07/25 12:27 History of Present Illness HPI narrative: This is a 79-year-old female presenting ED with chief complaint of weakness. Patient says she has had UTI symptoms intermittently for the last week. She also has lower abdominal pain. She denies fevers chills chest pain difficulty breathing neck pain headache nausea vomiting or diarrhea. Patient was sent in from her primary care physician for bradycardia and hypotension although she is not bradycardic and her blood pressure is normal in our emergency department. She had gone to the primary care physician because she had a fall earlier. She did not strike her head but she is on blood thinners. Patient is a poor historian. Related Data Home Medications ?Medication ?Instructions ?Recorded ?Confirmed ?Last Taken ?Type trazodone 150 mg tablet 150 mg PO HS 03/22/21 04/22/25 04/21/25 History venlafaxine 37.5 mg 37.5 mg PO DAILY 08/22/22 04/22/25 04/21/25 History capsule,extended release 24 hr (Effexor XR) rosuvastatin 40 mg tablet 40 mg PO DAILY 12/27/23 04/22/25 04/21/25 History amiodarone 200 mg tablet 400 mg PO DAILY 01/02/24 04/22/25 04/21/25 History clonazepam 0.5 mg tablet 0.5 mg PO TID 01/02/24 04/22/25 04/21/25 History levothyroxine 150 mcg tablet 150 mcg PO DAILY 01/02/24 04/22/25 04/21/25 History carvedilol 12.5 mg tablet 25 mg PO DAILY 12/24/24 04/22/25 04/21/25 History cyanocobalamin (vitamin B-12) 1,000 mcg subcut MONTHLY 03/25/25 04/22/25 04/21/25 History 1,000 mcg/mL injection solution donepezil 10 mg tablet 10 mg PO HS 03/25/25 04/22/25 04/21/25 History famotidine 20 mg tablet 20 mg PO Q12H PRN reflux 03/25/25 04/22/25 04/21/25 History furosemide 40 mg tablet 40 mg PO 3XW 03/25/25 04/22/25 04/21/25 History ondansetron 4 mg disintegrating 8 mg PO Q12H PRN nausea and 03/25/25 04/22/25 04/21/25 History tablet vomiting spironolactone 25 mg tablet 25 mg PO DAILY 03/25/25 04/22/25 04/21/25 History Allergies Allergy/AdvReac Type Severity Reaction Status Date / Time codeine Allergy Unknown Unknown Verified 05/07/25 12:34 hydroxyzine Allergy Unknown Unknown Verified 05/07/25 12:34 lorazepam Allergy Unknown Unknown Verified 05/07/25 12:34 tramadol Allergy Unknown Unknown Verified 05/07/25 12:34 NSAIDS (Non-Steroidal AdvReac Unknown Nausea Verified 05/07/25 12:34 Anti-Inflamma sumatriptan AdvReac Unknown FELT Verified 05/07/25 12:34 HORRIBLE PMFSH Past Medical History Medical History Chronic anticoagulation Transient ischemic attack Gastroesophageal reflux disease Chronic kidney disease Depression with anxiety Deep venous thrombosis Heart failure with reduced ejection fraction EF was 20 to 25% in March 2021. Left bundle branch block Hyperlipidemia Hypertension Hypothyroidism Cardiomyopathy Bipolar disorder Surgical History Surgical History History of colon resection History of bilateral knee arthroplasty History of repair of left rotator cuff History of bladder suspension procedure History of tonsillectomy History of cardiac catheterization History of partial hysterectomy History of orthopedic surgery Family History Family History Father Hypertension Cerebrovascular accident Mother Family history of diabetes mellitus in first degree relative Family history of lung disease Family history of coronary artery disease Sibling Family history of diabetes mellitus in first degree relative Cardiomyopathy Son Family history of mental disorder Other Family history of alcoholism Family history of arthritis Family history of gout Social History Social History Social History: Surrogate medical decision maker: Man Linton, sibling. Code status: Full code. Smoking status: Never smoker Second hand tobacco smoke exposure: No Alcohol intake: never Substance use: never Substance use type: does not use Do You Feel Safe in your Home?: Yes Lack of Transportation: No Lack of Food: Never True Current Housing: I Have Housing Concerned About Future Housing: No Difficulty Paying Gas/Electric Bills: No Difficulty Paying for Meds: No Currently Unemployed: No Education: High School Diploma/GED Difficulty w/ Childcare or Family Care: No Living arrangements: with roommate(s) Additional living arrangements comments: . Has 1 child. Additional occupation/education comments: Retired from the [employer]. Spiritual care concerns: No Exam Narrative: APPEARANCE: No apparent distress. Head: atraumatic. EYES: EOMI, NOSE: Atraumatic NECK: Trachea midline RESPIRATORY: No increased rate of breathing CTAB CARDIOVASCULAR: RRR, No peripheral edema ABDOMINAL: Lower abdominal tenderness without guarding or rebound, no CVA tenderness MUSCULOSKELETAL: No obvious deformities NEURO: Alert. Moving 4/4 extremities SKIN:: Warm, dry. Normal color PSYCHIATRIC: Normal affect Course Vital Signs Vital signs: Vital Signs Pulse Rate 65 05/07/25 12:29 Respiratory Rate 25 H 05/07/25 12:29 Blood Pressure 141/72 H 05/07/25 12:29 Pulse Oximetry 98 05/07/25 12:29 Oxygen Delivery Room Air 05/07/25 12:29 Pulse Rate 65 05/07/25 12:29 Respiratory Rate 18 05/07/25 12:35 Blood Pressure 141/72 H 05/07/25 12:29 Pulse Oximetry 96 05/07/25 12:35 Oxygen Delivery Room Air 05/07/25 12:29 Medical Decision Making MDM Narrative Medical decision making narrative: -Course: 79-year-old female sent from her primary physician office for bradycardia hypotension. On arrival her heart rate was 65 and her blood pressure was 160/80. Patient is poor historian and does not know anything about a low heart rate or blood pressure. She has says that she has felt weak and had UTI symptoms. Her urine is indicative of infection. Her white count is normal, no CVA tenderness and her vital signs are stable without fever. Labs without abnormality. CT abdomen pelvis unremarkable. Patient received a dose of ceftriaxone. We then ambulated around the emergency department she was able to walk with a walker with a steady gait. Discussed admission versus discharge the patient would prefer to be sent home. She will be discharged with return precautions. -DDX includes but is not limited to: UTI sepsis pneumonia dehydration intracranial hemorrhage Vital Signs Vital Signs: Vital Signs Pulse Rate 65 05/07/25 12:29 Respiratory Rate 25 H 05/07/25 12:29 Blood Pressure 141/72 H 05/07/25 12:29 Pulse Oximetry 98 05/07/25 12:29 Oxygen Delivery Room Air 05/07/25 12:29 Pulse Rate 65 05/07/25 12:29 Respiratory Rate 18 05/07/25 12:35 Blood Pressure 141/72 H 05/07/25 12:29 Pulse Oximetry 96 05/07/25 12:35 Oxygen Delivery Room Air 05/07/25 12:29 Lab Data 05/07/25 12:38 05/07/25 12:38 Labs: Lab Results 05/07/25 05/07/25 05/07/25 Range/Units 12:38 14:40 15:23 WBC 5.4 (4.5-10.0) K/mm3 RBC 3.57 L (4.2-5.4) M/mm3 Hgb 11.1 L (12.0-15.0) g/dL Hct 37.2 (37.0-47.0) % MCV 104.2 H (80-100) fl MCH 31.1 (26-34) pg MCHC 29.8 L (32-36) g/dl RDW 14.3 (11.5-14.5) % Plt Count 201 (150-375) k/mm3 MPV 9.8 (7.4-10.4) fl Immature Gran % (Auto) 0.2 (0-0.5) % Neut % (Auto) 64.5 (45.5-73.1) % Lymph % (Auto) 17.9 L (18.3-44.2) % Jenkins % (Auto) 10.8 H (2.6-8.5) % Eos % (Auto) 6.2 H (0-4.4) % Baso % (Auto) 0.4 (0.2-1.2) % Lymph # (Auto) 0.96 (0.9-3.2) K/mm3 Jenkins # (Auto) 0.6 (0.1-0.6) K/mm3 Eos # (Auto) 0.3 (0-0.3) K/mm3 Baso # (Auto) 0.0 (0.0-0.1) K/mm3 Abs Immat Gran (auto) 0.01 (0.00-0.031) K/mm3 Absolute Neuts (auto) 3.5 (1.3-6.7) K/mm3 Absolute Nucleated RBC 0.000 (0.0-0.012) K/mm3 Band Neutrophils % Not Reportable Nucleated RBC % 0.0 (0.0-0.2) % Platelet Estimate Adequate (Adequate) Macrocytosis 1+ (NORMAL) Ovalocytes Occasional Schistocytes None seen Sodium 140 (137-145) mmol/L Potassium 4.3 (3.4-5.0) mmol/L Chloride 104 (98-107) mmol/L Carbon Dioxide 27 (22-30) mmol/L Anion Gap 9 (4-12) mmol/L BUN 12 D (7-17) mg/dL Creatinine 1.33 H (0.7-1.0) mg/dL Estim Creat Clear Calc 31 ml/min Estimated GFR 38 L (59 - ) Glucose 116 H (65-110) mg/dL POC Capillary Glucose (65-105) mg/dl Lactic Acid 0.8 (0.7-2.0) mmol/L Calcium 9.0 (8.4-10.2) mg/dL Total Bilirubin 0.3 (0.2-1.3) mg/dL AST 38 H (14-36) U/L ALT 28 (6-35) U/L Alkaline Phosphatase 73 (38-126) U/L Total Protein 7.4 (6.3-8.2) g/dL Albumin 3.8 (3.5-5.1) g/dL Urine Color (Yellow) Urine Appearance (Clear) Urine pH (5.0-9.0) Ur Specific [place] (1.001-1.035) Urine Protein (Negative) mg/dL Urine Glucose (UA) (Negative) mg/dL Urine Ketones (Negative) mg/dL Ur Blood (Man) (Negative) Urine Nitrate (Negative) Urine Bilirubin (Negative) Urine Urobilinogen (<2.0) mg/dL Leukocyte Esterase Rfl (Negative) MERVAT/UL Urine RBC (0-2) /hpf Urine WBC (0-3) /hpf Ur Squamous Epith Cells (Few) /hpf Urine Bacteria /hpf Urine Casts Hyaline Casts (None) /lpf Influenza A (RT-PCR) Negative (Negative) Influenza B (RT-PCR) Negative (Negative) RSV (RT-PCR) Negative (Negative) SARS-CoV-2 RNA (RT-PCR) Negative (Negative) 05/07/25 05/07/25 Range/Units 16:21 16:23 WBC (4.5-10.0) K/mm3 RBC (4.2-5.4) M/mm3 Hgb (12.0-15.0) g/dL Hct (37.0-47.0) % MCV (80-100) fl MCH (26-34) pg MCHC (32-36) g/dl RDW (11.5-14.5) % Plt Count (150-375) k/mm3 MPV (7.4-10.4) fl Immature Gran % (Auto) (0-0.5) % Neut % (Auto) (45.5-73.1) % Lymph % (Auto) (18.3-44.2) % Jenkins % (Auto) (2.6-8.5) % Eos % (Auto) (0-4.4) % Baso % (Auto) (0.2-1.2) % Lymph # (Auto) (0.9-3.2) K/mm3 Jenkins # (Auto) (0.1-0.6) K/mm3 Eos # (Auto) (0-0.3) K/mm3 Baso # (Auto) (0.0-0.1) K/mm3 Abs Immat Gran (auto) (0.00-0.031) K/mm3 Absolute Neuts (auto) (1.3-6.7) K/mm3 Absolute Nucleated RBC (0.0-0.012) K/mm3 Band Neutrophils % Nucleated RBC % (0.0-0.2) % Platelet Estimate (Adequate) Macrocytosis (NORMAL) Ovalocytes Schistocytes Sodium (137-145) mmol/L Potassium (3.4-5.0) mmol/L Chloride (98-107) mmol/L Carbon Dioxide (22-30) mmol/L Anion Gap (4-12) mmol/L BUN (7-17) mg/dL Creatinine (0.7-1.0) mg/dL Estim Creat Clear Calc ml/min Estimated GFR (59 - ) Glucose (65-110) mg/dL POC Capillary Glucose 77 (65-105) mg/dl Lactic Acid (0.7-2.0) mmol/L Calcium (8.4-10.2) mg/dL Total Bilirubin (0.2-1.3) mg/dL AST (14-36) U/L ALT (6-35) U/L Alkaline Phosphatase (38-126) U/L Total Protein (6.3-8.2) g/dL Albumin (3.5-5.1) g/dL Urine Color Yellow (Yellow) Urine Appearance Cloudy H (Clear) Urine pH 5.5 (5.0-9.0) Ur Specific [place] 1.024 (1.001-1.035) Urine Protein 1+ H (Negative) mg/dL Urine Glucose (UA) Negative (Negative) mg/dL Urine Ketones Trace H (Negative) mg/dL Ur Blood (Man) Trace (Negative) Urine Nitrate Positive H (Negative) Urine Bilirubin Negative (Negative) Urine Urobilinogen 0.2 (<2.0) mg/dL Leukocyte Esterase Rfl 2+ H (Negative) MERVAT/UL Urine RBC 0-2 (0-2) /hpf Urine WBC 21-50 H (0-3) /hpf Ur Squamous Epith Cells Occasional (Few) /hpf Urine Bacteria 4+ H /hpf Urine Casts 3-5 Hyaline Casts Present (None) /lpf Influenza A (RT-PCR) (Negative) Influenza B (RT-PCR) (Negative) RSV (RT-PCR) (Negative) SARS-CoV-2 RNA (RT-PCR) (Negative) ABG Data ABG results: 05/07/25 15:06 VBG pH 7.429 H* VBG pCO2 37.9 L VBG pO2 45.8 H VBG HCO3 24.5 O2 Delivery Device Room air O2 Liters/Min Not Reportable FiO2 21 Discharge Plan Discharge Clinical Impression: Acute UTI Patient Disposition: Home Condition: Stable Instructions: Antibiotic Form, Dysuria (ED) Additional Instructions: You were seen emergency department for a UTI. Please take the antibiotics as instructed. Please follow-up with your primary care physician in 2-3 days for re-evaluation. If you feel you are getting worse, you develop fevers severe abdominal pain or worsening weakness please return to the ED immediately for re-evaluation. Patient Language: Nicaraguan Prescriptions: New cefdinir 300 mg capsule 300 mg PO Q12H 5 Days Qty: 10 0RF No Action venlafaxine [Effexor XR] 37.5 mg capsule,extended release 24hr 37.5 mg PO DAILY trazodone 150 mg tablet 150 mg PO HS carvedilol 12.5 mg tablet 25 mg PO DAILY rosuvastatin 40 mg tablet 40 mg PO DAILY levothyroxine 150 mcg Tablet 150 mcg PO DAILY amiodarone 200 mg tablet 400 mg PO DAILY clonazepam 0.5 mg tablet 0.5 mg PO TID famotidine 20 mg tablet 20 mg PO Q12H PRN (Reason: reflux) spironolactone 25 mg tablet 25 mg PO DAILY cyanocobalamin (vitamin B-12) 1,000 mcg/mL solution 1,000 mcg subcut MONTHLY donepezil 10 mg tablet 10 mg PO HS furosemide 40 mg tablet 40 mg PO 3XW Rx Instructions: -- ondansetron 4 mg tablet,disintegrating 8 mg PO Q12H PRN (Reason: nausea and vomiting) guaifenesin [Mucus Relief ER] 600 mg Tablet Extended Release 12hr 600 mg PO Q12HR Qty: 20 0RF warfarin 3 mg tablet 2 mg PO DAILY Qty: 30 0RF Follow-up/Referrals: Maureen,MD Masoud [Primary Care Provider, Unknown] - 3 Days
[2025-05-07 16:54] LABS: Add Urine Microscopic? YES; Appearance Urine Cloudy (Clear); Glucose Urine UA Negative (Negative); Leukocyte Esterase Ur 2+ LEU/UL (Negative); Nitrate Urine Positive (Negative); Specific Grav Ur 1.024 (1.001-1.035)
[2025-05-07] MEDS: cefTRIAXone 1 GM in SODIUM CHLORIDE 0.9% IV 50 ML 100 ML IVPB (18:00)
== END 2025-05-07 19:20 | disposition home or self-care (01) ==
PROVIDERS: Emergency Provider Emergency Medicine; PCP Internal Medicine
DX: N39.0 Urinary tract infection, site not specified (principal); Z20.822 Contact with and (suspected) exposure to COVID-19; I13.0 Hypertensive heart and chronic kidney disease with heart failure and stage 1 through stage 4 chronic kidney disease, or unspecified chronic kidney disease; N18.30 Chronic kidney disease, stage 3 unspecified; I50.9 Heart failure, unspecified; I42.9 Cardiomyopathy, unspecified; E78.5 Hyperlipidemia, unspecified; E03.9 Hypothyroidism, unspecified; K21.9 Gastro-esophageal reflux disease without esophagitis; F31.9 Bipolar disorder, unspecified; Z95.0 Presence of cardiac pacemaker; Z96.653 Presence of artificial knee joint, bilateral; Z86.718 Personal history of other venous thrombosis and embolism; Z86.73 Personal history of transient ischemic attack (TIA), and cerebral infarction without residual deficits; Z90.49 Acquired absence of other specified parts of digestive tract; Z90.711 Acquired absence of uterus with remaining cervical stump; Z79.01 Long term (current) use of anticoagulants; Z79.899 Other long term (current) drug therapy
CPT/HCPCS: 36415; 70450; 73502; 74177; 80053; 81001; 82803; 82948; 83605; 85025; 87077; 87086; 87186; 87637; 93005; 96361; 96365; 96366; 99284; J0696; J7120; Q9967

== ENCOUNTER 2025-05-12 13:48 | Outpatient (CLI) | payer MEDICARE, SELFPAY ==
--- OUTSIDE RECORDS SUMMARY | 2025-05-01 08:30 | XMS_ITS ---
Author Organization [facility] [employer] [facility] Address [employer]5 [facility] [address] [address] Care Team Providers Care Accounting Intern Name Role Phone Maureen URBINA, [facility] Primary Care Provider Un available Patric De Jesus Unavailable [phone] REASON FOR VISIT 3 week follow up Social History Sex Assigned At : Social History Observation Description Sex Assigned At Female Encounters Encounter Location Date Provider Diagnosis [facility] [place] [place] [address] [facility] [address] [address] 05/01/2025 Patric De Jesus Plan Of Treatment Next Appt Details Provider Name:Patric De Jesus , 06/09/2025 02:30:00 PM, [employer] [place] [address], [address], [address], Provider Name:Patric De Jesus , 06/11/2025 01:00:00 PM, [address], [address], Provider Name:Patric De Jesus , 07/09/2025 01:00:00 PM, [address] [place] [address], [address], Progress Notes * JAILENE CHOPRA KDOB:[birth year] (79 yo F)Acc No.[id number]:05/01/2025 Patient: JAILENE BELTRAN Provider: Beck DE JESUS MD :1945 A ge:79 Y S ex:Female Date:05/01/2025 Address:[address] [place] [address] , [facility] Pcp:Masoud Reddy MD Subjective: * Chief Complaints: [...] signature of Blanca De Jesus MD on 05/12/2025 at 01:53 PM CDT Sign off status: Pending * Provider: Beck DE JESUS MD Date: 0 05/01/2025 Generated for [place] donnelly/Danny/Nila on: 0 05/12/2025 01:53 PM CDT
--- OUTSIDE RECORDS SUMMARY | 2025-05-12 13:53 | XMS_ITS | Clinical Summary ---
Author Organization [facility] Address [address] [place] [address] Phone Care Team Providers Care Delivery Of Shopping News Name Role Phone Lana Tovar MD Primary [...] to complete this topic Insurance MEDICARE C [facility] Care Teams Delivery Of Shopping News Relationship Specialty Start Date End Date Lana Tovar MD [address] [place] [id number] PCP - General Family Medicine 12/23/16
--- OUTSIDE RECORDS SUMMARY | 2025-05-12 13:53 | XMS_ITS | Clinical Summary ---
Author Organization [facility] [address] Address [address] [place] [address] Care Team Providers Care Title One Kindergarten Teacher Name Role Phone Bandar Gaffney MD Unavailable [phone] Dillan Reddy MD Primary Care Provide r [...] in situ 04/13/2021 Overview (04/21/2023): Dodge DDD [place] BI-V ICD imp on 04/12/21 for DCM, [...] Description 02/19/2025 1:30 PM CDT Ancillary Procedure [facility] [address] [place] [phone] Dilated cardiomyopathy (HCC); VT (ventricular tachycardia) (HCC); ICD (implantable cardioverter-defibrill ator), biventricular, in situ; Paroxysmal atrial fibrillation (HCC) 02/10/2025 Telephone [facility] [address] [place] [phone] Samy Ceja MD from Last 3 [...] often do you attend chur ch or synagogue services? 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 Gender Identity Not on file Sexual [...] 05/15/2018, 11/2015 Medical Devices Implanted Type Area Heating Unit Installer Device Identifier Shelf Expiration Date Model / Serial / Lot Dodge Vascular [id number] Defib Cardiac [id number] [place] Hf Df4 Is-4 Is-1 Cnctr - [id number] - [id number] Implanted:Qty: 1 on 04/12/2021 by Bandar Gaffney MD at [facility] ICD Dodge Vascular [id number] 02/01/2023 C [id number] / [id number] / [employer] 7120q/65 Durata 7fr 65cm 2 Coil Df-4 True Bipolar Active Fixation - [id number] - [id number] Implanted:Qty: 1 on 04/12/2021 by Bandar Gaffney MD at [facility] Lead [employer] [id number] 02/01/2022 7120Q/65 / [id number] / [employer] 2088tc/52 Tendril Sts 6fr 52cm Is-1 Connector Active Fixation Bipolar Soft - [id number] - [id number] Implanted:Qty: 1 on 04/12/2021 by Bandar Gaffney MD at [facility] Lead [employer] [id number] 03/03/2024 2088TC/52 / [id number] / [employer] 1458q/86 Quartet 5fr [id number] Electrode Is-4 Connector Steerable Tip - [id number] - [id number] Implanted:Qty: 1 on 04/12/2021 by Bandar Gaffney MD at [facility] Lead [employer] [id number] 02/02/2024 1458Q/86 / [id number] / Procedures Procedure Name Priority Date/Time Associated [...] Narrative 02/25/2025 12:51 PM CDT Dodge DDD [place] BI-V ICD imp on 04/12/21 for DCM, [...] See scanned report. Office device f/u 05/27/2026. Hewitt remote f/u 05/27/2025. Dulce Gutierrez, CLARITZA Samy Ceja MD [facility] C[facility] PROC EDURES Final Result from Last [address] [place] [address] [place] [address] [facility] MEDICARE ADVANTAGE [facility] MED[facility] Address: [facility] [id number] [place] [phone] [facility] MEDICARE ADVANTAGE [facility] MEDICARE Address: [facility] [address] [place] [address] [facility] MEDICARE ADVANTAGE [facility] MEDICARE Address: [place] [id number] [place] [phone] Advance Directives For more information, please contact: [phone] * Full Code (Latest Code Status on File) Date Activated Date Inactivated Comments 03/23/2023 7:04 AM 03/26/2023 7:27 PM Care Teams Title One Kindergarten Teacher Relationship Specialty Start Date End Date Dillan Reddy MD [address] [facility] [address] [place] [address] PCP - General Internal Medicine 11/09/23 Bandar Gaffney MD Consulting Physician Cardiology 04/13/21
--- OUTSIDE RECORDS SUMMARY | 2025-05-12 13:53 | XMS_ITS | Patient Health Record ---
Author Organization [facility] [employer] [facility] Address [address] [facility] [address] [place] [address] Care Team Providers Care Second Time Worker Name Role Phone Maureen URBINA, Masoud Primary Care Provider Un available Patric Amaya Unavailable [phone] Allergies Allergen (clinical drug ingredient) Drug/Non Drug [...] Problem Bipolar affective disorder, currently depressed, mild (367070479) Bipolar disorder, current episode depressed, mild (F31.31) Active confirmed Problem Generalized anxiety disorder (21430367) Generalized anxiety disorder (F41.1) Active confirmed Problem Primary insomnia (5905424) Primary insomnia (F51.01) Active confirmed Problem Alzheimer's disease with late onset (412622015) Alzheimer's disease with late onset (G30.1) Active confirmed Problem Cardiomyopathy (08649959) Cardiomyopathy, unspecified (I42.9) Active confirmed Problem Heart failure (81242559) Heart failure, unspecified (I50.9) Active confirmed Problem Recurrent falls (104792930) Repeated falls (R29.6) Active confirmed Problem Generalized anxiety disorder (38234394) CAM[place] (generalized anxiety disorder) (F41.1) Active confirmed Problem Hyperlipidemia (74387027) Hyperlipidemia (E78.5) 03/22/20 Active confirmed Problem Hypothyroidism (04415726) Hypothyroidism (E03.9) 03/22/20 21 Active confirmed Problem Cardiomyopathy (66776715) Cardiomyopathy (I42.9) 03/22/20 21 Active confirmed Problem Left bundle branch block (05309622) Left bundle branch block (LBBB) (I44.7) 03/23/20 21 Active confirmed Problem Ventricular tachycardia (disorder) (22459671) VT (ventricular tachycardia) (I47.20) 04/12/20 21 Active confirmed Problem Automatic implantable cardiac defibrillator in situ (005649336) ICD (implantable cardioverter-defi brillator), biventricular, in situ (Z95.810) 04/21/20 23 Active confirmed Vital Signs Heart Rate 62 /min 03/12/2025 Height-cm 165.10 cm 04/09/2025 Blood pressure diastolic 75 mm Hg 04/09/2025 Weight-kg 81.65 kg 02/13/2025 Height 65.00 in 04/09/2025 Blood pressure systolic 130 mm Hg 04/09/2025 Weight 180, 180.0 lbs 02/13/2025 BMI 29.95 kg/m2 02/13/2025 Encounters Encounter Location Date Provider Diagnosis [facility] [address] [place] [id number] [facility] [address] [facility] [address] [place] [address] 05/13/2024 Patric Jose Luis Bipolar disorder, current episode depressed, mild F31.31 ; Cardiomyopathy, unspecified I42.9 ; Primary insomnia F51.01 ; Alzheimer's disease with late onset G30.1 and CAMDEN (generalized anxiety disorder) F41.1 [facility] [employer] [facility] [place] [address] [facility] 162 [facility] [address] [place] [address] 06/14/2024 Patric Jose Luis Bipolar disorder, current episode depressed, mild F31.31 ; Cardiomyopathy, unspecified I42.9 ; Primary insomnia F51.01 ; Alzheimer's disease with late onset G30.1 ; CAMDEN (generalized anxiety disorder) F41.1 ; Hyperlipidemia E78.5 ; Left bundle branch block (LBBB) I44.7 and Hypothyroidism E03.9 [facility] [employer] [facility] [address] [facility] 162 [facility] [address] [place] [address] 07/15/2024 Patric Jose Luis Bipolar disorder, current episode depressed, mild F31.31 ; Cardiomyopathy, unspecified I42.9 ; Primary insomnia F51.01 ; Alzheimer's disease with late onset G30.1 ; CAMDEN (generalized anxiety disorder) F41.1 ; Hyperlipidemia E78.5 ; Left bundle branch block (LBBB) I44.7 and Hypothyroidism E03.[address] [address] 09/19/2024 Patric Jose Luis Bipolar disorder, current episode depressed, mild F31.31 ; Cardiomyopathy, unspecified I42.9 ; Primary insomnia F51.01 ; Alzheimer's disease with late onset G30.1 ; CAMDEN (generalized anxiety disorder) F41.1 ; Hyperlipidemia E78.5 ; Left bundle branch block (LBBB) I44.7 and Hypothyroidism E03.[address] [address] 10/17/2024 Patric Jose Luis Bipolar disorder, current episode depressed, mild F31.31 ; Primary insomnia F51.01 ; Alzheimer's disease with late onset G30.1 ; CAMDEN (generalized anxiety disorder) F41.1 ; Hyperlipidemia E78.5 and Hypothyroidism E03.[address] [address] 11/14/2024 Patric Jose Luis Encounter for screen ing for depression Z13.31 ; Encounter for screening for cardiovascular disorders Z13.6 ; Bipolar disorder, current episode depressed, mild F31.31 ; Primary insomnia F51.01 ; Alzheimer's disease with late onset G30.1 ; CAMDEN (generalized anxiety disorder) F41.1 ; Hyperlipidemia E78.5 and Hypothyroidism E03.9 [facility] [employer] [address] 12/12/2024 Patric Jose Luis Encounter for screen ing for cardiovascular disorders Z13.6 ; Encounter for screening for depression Z13.31 ; Bipolar disorder, current episode depressed, mild F31.31 ; Primary insomnia F51.01 ; Alzheimer's disease with late onset G30.1 ; CAMDEN (generalized anxiety disorder) F41.1 ; Hyperlipidemia E78.5 and Hypothyroidism E03.[address] [facility] [address] [place] [address] 01/09/2025 Patric Jose Luis Bipolar disorder, current episode depressed, mild F31.31 ; Primary insomnia F51.01 ; Alzheimer's disease with late onset G30.1 ; CAMDEN (generalized anxiety disorder) F41.1 ; Negative depression screening Z13.31 and Encounter for screening for cardiovascular disorders Z13.[address] [facility] [address] [place] [address] 02/13/2025 Patric Jose Luis Bipolar disorder, current episode depressed, mild F31.31 ; Primary insomnia F51.01 ; Alzheimer's disease with late onset G30.1 ; Dietary counseling and surveillance Z71.3 ; CAMDEN (generalized anxiety disorder) F41.1 ; Encounter for screening for cardiovascular disorders Z13.6 and Encounter for screening for depression Z13.[address] [facility] [address] [place] [address] 03/12/2025 Patric Jose Luis Bipolar disorder, current episode depressed, mild F31.31 ; Primary insomnia F51.01 ; Alzheimer's disease with late onset G30.1 ; CAMDEN (generalized anxiety disorder) F41.1 and Heart failure, unspecified I50.[address] [facility] [address] [place] [address] 04/09/2025 Patric Jose Luis Bipolar disorder, current episode depressed, mild F31.31 ; Primary insomnia F51.01 ; Alzheimer's disease with late onset G30.1 ; CAMDEN (generalized anxiety disorder) F41.1 and Repeated falls R29.[address] [facility] [address] [place] [address] 08/16/2024 Patric Jose Luis Generalized anxiety disorder F41.[address] [facility] [address] [place] [address] 09/13/2024 Patric Jose Luis Generalized anxiety disorder F41.1 and Primary insomnia F51.[address] [facility] [address] [place] [address] 11/26/2024 Patric Jose Luis [address] [facility] [address] [place] [address] 03/28/2025 Patric Jose Luis Assessments Encounter Date [...] be confirmed. - Consider referral to a teaching assistant or swim coach for further evaluation and management. Bipolar Disorder [...] Healthcare Access - Assessment: The patient has [employer] insurance and is concerned about potential changes in network coverage, specifically mentioning [place] potentially going out of network. - Plan: [...] Plan: Encourage patient to follow up with teaching assistant and primary care physician for further evaluation [...] Support - Assessment: Patient is working with [employer] for Medicaid application, despite concerns about [...] Plan: Encourage patient to follow up with teaching assistant and primary care physician for further evaluation [...] Support - Assessment: Patient is working with [employer] for Medicaid application, despite concerns about [...] be confirmed. - Consider referral to a teaching assistant or swim coach for further evaluation and management. Bipolar Disorder [...] Healthcare Access - Assessment: The patient has [employer] insurance and is concerned about potential changes in network coverage, specifically mentioning [place] potentially going out of network. - Plan: [...] be confirmed. - Consider referral to a teaching assistant or swim coach for further evaluation and management. Bipolar Disorder [...] Healthcare Access - Assessment: The patient has [employer] insurance and is concerned about potential changes in network coverage, specifically mentioning [place] potentially going out of network. - Plan: [...] Support - Assessment: Patient is working with [employer] for Medicaid application, despite concerns about eligibility. [...] Plan: Encourage patient to follow up with teaching assistant and primary care physician for further evaluation [...] Plan: Encourage patient to follow up with teaching assistant and primary care physician for further evaluation [...] Support - Assessment: Patient is working with [employer] for Medicaid application, despite concerns about eligibility. [...] be confirmed. - Consider referral to a teaching assistant or swim coach for further evaluation and management. Bipolar Disorder [...] Healthcare Access - Assessment: The patient has [employer] insurance and is concerned about potential changes in network coverage, specifically mentioning [place] potentially going out of network. - Plan: [...] be confirmed. - Consider referral to a teaching assistant or swim coach for further evaluation and management. Bipolar Disorder [...] Healthcare Access - Assessment: The patient has [employer] insurance and is concerned about potential changes in network coverage, specifically mentioning [place] potentially going out of network. - Plan: [...] Support - Assessment: Patient is working with [employer] for Medicaid application, despite concerns about eligibility. [...] Plan: Encourage patient to follow up with teaching assistant and primary care physician for further evaluation [...] Support - Assessment: Patient is working with [employer] for Medicaid application, despite concerns about eligibility. [...] be confirmed. - Consider referral to a teaching assistant or swim coach for further evaluation and management. Bipolar Disorder [...] Healthcare Access - Assessment: The patient has [employer] insurance and is concerned about potential changes in network coverage, specifically mentioning [place] potentially going out of network. - Plan: [...] Support - Assessment: Patient is working with [employer] for Medicaid application, despite concerns about eligibility. [...] be confirmed. - Consider referral to a teaching assistant or swim coach for further evaluation and management. Bipolar Disorder [...] Healthcare Access - Assessment: The patient has [employer] insurance and is concerned about potential changes in network coverage, specifically mentioning [place] potentially going out of network. - Plan: [...] be confirmed. - Consider referral to a teaching assistant or swim coach for further evaluation and management. Bipolar Disorder [...] Healthcare Access - Assessment: The patient has [employer] insurance and is concerned about potential changes in network coverage, specifically mentioning [place] potentially going out of network. - Plan: [...] and Cardiomyopathy - Assessment: Patient saw Dr. rGegory, who confirmed the patient's heart is weak. [...] Support - Assessment: Patient is working with [employer] for Medicaid application, despite concerns about eligibility. [...] Plan: Encourage patient to follow up with teaching assistant and primary care physician for further evaluation [...] to Furosemide (Lasix) issue. Upcoming appointment with jet blade polisher on the . - Plan: - Monitor [...] member for money and food. Power of title attorney is with brother Mauricio Pacheco. - Plan: - Encourage patient to discuss financial concerns with power of title attorney and establish boundaries with family members. [...] cardiac device monitoring - Follow up with teaching assistant as scheduled in February Gambling Urges Assessment: [...] without a caregiver for 2 months. A marketing representative from an aging services organization has contacted [employer] to address this issue. Plan: - Follow up on the status of caregiver assignment through [employer] Disclaimer: This note has been transcribed using speech recognition software and serves as a reflection of the patient's visit. While efforts have been made to ensure accuracy, there may be errors, including microbiology lab technician inaccuracies and misspellings of medication names. This document should not be considered a verbatim record, and any discrepancies should be verified with the provider. 01/09/2025 Other Medication Management and Access - Assessment: Patient reports discontinuation of Entresto due to loss of sample access and high spt-dd-rhszre costs (approximately $600/month). This has led to [...] or reduced-cost medications. - Follow up with teaching assistant (Dr. Rodriguez) regarding medication changes and current [...] daily functioning. - Consider referral to social media project manager for additional support if needed. Mood and [...] without using your hands.3. Strength Training Exercises- Lsc-rq-nidnj: rise from a chair repeatedly.- Wall push-ups: [...] Provider Name:Patric Amaya , 05/12/2025 01:00:00 PM, [address], [address], [address], Provider Name:Patric Amaya , 06/11/2025 01:00:00 PM, [address], [facility] [address], [place], [address], Provider Name:Patric Amaya , 07/09/2025 01:00:00 PM, [address], [facility] [address], [place], [id number], Insurance Providers Payer Name Payer Address Payer Phone Subscriber Number Group Number Insured Name Patient Relationship to Insured Coverage Start Date Coverage End Date [facility] Medicare Replacement/ Advantage - Ppo [address] [address] [place] [address] [id number] NAV JAILENE Self - patient is the [...] Date(Month/Year) Implantation of cardiac defibrillator libby cook ([id number]) 04/12/2021 Hospitalization History Reason Date(Month/Year) Fall and pneumonia, a week ago monday
--- OUTSIDE RECORDS SUMMARY | 2025-05-12 13:54 | XMS_ITS | Clinical Summary ---
Author Organization [facility] Address [address] [place] [address] Care Team Providers Care Area Representative Name Role Phone Unavailable Primary Care Provider [...] Documents on File Type Date Recorded Patient Tube Sizer Operator Expl anation Advance Directives and Living Will 01/14/2016 12:00 AM ADVANCED DIRECTIVES
--- OUTSIDE RECORDS SUMMARY | 2025-05-12 13:54 | XMS_ITS | Encounter Summary ---
Author Organization [facility] Address [address] [facility] [address] [place] [address] Care Team Providers Care Dewer Name Role Phone Lana Tovar MD Primary Care Provider + Lana Tovar MD Primary Care Provider + Bandar Gaffney MD Unavailable [phone] Dillan Reddy MD Primary Care Provide r Encounter Details Date Type Department Care Team (Late st Contact Info) Description 2016 Orders Only [facility] ProviderSaurabh MD [address] [place] [address] Social History Tobacco Use Types Packs/Day Years Used Date Smoking Tobacco: Never Alcohol Use Standard Drinks/Week Comments No 0 (1 standard drink = 0.6 oz pur e alcohol) Comments Unknown Sex and Gender Information Value Date Recorded Sex Assigned at Not on file 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
--- OUTSIDE RECORDS SUMMARY | 2025-05-12 13:54 | XMS_ITS | Encounter Summary ---
Author Organization [facility] Healthcare Address [address] [place] [address] Care Team Providers Care Whitewater Rafting Guide Name Role Phone Lana Tovar MD Primary Care Provider + Bandar Gaffney MD Unavailable [phone] Dillan Reddy MD Primary Care Provide r Encounter Details Date Type Department Care Team (Late st Contact Info) Description 03/26/2018 Orders Only [facility] Information Management [address] [place] [address] Scanning, Provider Social History Tobacco Use Types Packs/Day Years Used Date Smoking Tobacco: Never Smokeless Tobacco: Never Alcohol Use Standard Drinks/Week Comments No 0 (1 standard drink = 0.6 oz pur e alcohol) Comments Unknown Sex and Gender Information Value Date Recorded Sex Assigned at Not on file 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
--- OUTSIDE RECORDS SUMMARY | 2025-05-12 13:54 | XMS_ITS | Encounter Summary ---
Author Organization [facility] Healthcare Address [address] [place] [address] Care Team Providers Care Forging Machine Operator Name Role Phone Bandar Gaffney MD Unavailable [phone] Dillan Reddy MD Primary Care Provide r Encounter Details Date Type Department Care Team (Late st Contact Info) Description 12/04/2024 Telephone [facility] Cardiology [address] [facility] 162 [facility] [address] [place] [address] Samy Ceja MD [address] [facility] [address] [place] [address] Social History Tobacco Use Types [...] on file 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
--- OUTSIDE RECORDS SUMMARY | 2025-05-12 13:54 | XMS_ITS | Encounter Summary ---
Author Organization [facility] Address [address] [place] [address] Care Team Providers Care Border Machine Operator Name Role Phone Lana Tovar MD Primary Care Provider + Bandar Gaffney MD Unavailable [phone] Dillan Reddy MD Primary Care Provide r Encounter Details Date Type Department Care Team (Late st Contact Info) Description 01/17/[address] 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
[2025-05-12 14:44] LABS: INR 2.0; Prothrombin Time 22.5 Seconds (11.1-14.7)
== END 2025-05-12 13:49 | disposition home or self-care (01) ==
LOC: ANHLAB 13:50
PROVIDERS: PCP Internal Medicine; Visit Provider Internal Medicine
DX: N39.0 Urinary tract infection, site not specified (principal); I10 Essential (primary) hypertension; Z51.81 Encounter for therapeutic drug level monitoring
CPT/HCPCS: 36415; 85610; 87086

== ENCOUNTER 2025-05-20 05:20 | Inpatient (IN) | payer MEDICARE, SELFPAY ==
--- OUTSIDE RECORDS SUMMARY | 2025-05-01 08:30 | XMS_ITS ---
Author Organization [facility] [employer] [facility] Address [facility]5 [facility] [address] [address] Care Team Providers Care Bar Tacker Name Role Phone Maureen URBINA, [facility] Primary Care Provider Un available Patric De Jesus Unavailable [phone] REASON FOR VISIT 3 week follow up Social History Sex Assigned At : Social History Observation Description Sex Assigned At Female Encounters Encounter Location Date Provider Diagnosis [facility] [place] [address] [facility] [address] [address] 05/01/2025 Patric De Jesus Plan Of Treatment Next Appt Details Provider Name:Patric De Jesus , 06/09/2025 02:30:00 PM, [facility] [place] [address], [address], [address], Provider Name:Patric De Jesus , 06/11/2025 01:00:00 PM, [address], [address], Provider Name:Patric De Jesus , 07/09/2025 01:00:00 PM, [address] [place] [address], [address], Progress Notes * JAILENE CHOPRA KDOB:[birth year] (79 yo F)Acc No.[id number]:05/01/2025 Patient: JAILENE BELTRAN Provider: Beck DE JESUS MD :1945 A ge:79 Y S ex:Female Date:05/01/2025 Address:[address] [place] [address] , [facility] Pcp:Masoud Reddy MD Subjective: * Chief Complaints: [...] signature of Blanca De Jesus MD on 05/20/2025 at 05:43 AM CDT Sign off status: Pending * Provider: Beck DE JESUS MD Date: 0 05/01/2025 Generated for [place] donnelly/Danny/Phillipitting on: 05/20/2025 05:43 AM CDT
[2025-05-20] VITALS (18 sets, daily range): BP systolic 119–152; BP diastolic 52–99; PULSE 60–82; RESP 16–30; TEMP 36.6–37.1; O2SAT 91–100; BMI 28.0
--- NOTE | ~2025-05-20 | XR_ITS ---
MODIFIED ESOPHAGRAM HISTORY: Dysphagia. TECHNIQUE: Modified barium esophagram was performed on 05/26/2025. I administered fluoroscopy and performed the exam with speech pathologist. Patient was seated for lateral fluoroscopic imaging for ingestion of thin liquids, pudding, solids and quantified amounts, followed by thin liquids in uncontrolled amounts. This was recorded on tape. A single fluoroscopic spot image was also recorded. The DAP for this procedure was 1.978 Gycm2. The amount of fluoroscopy time used during this procedure was 3.7 minutes. FINDINGS: Oral stage: There is excessive bowel movement which could be related to reported part of dyskinesia. Pharyngeal stage: Reduced laryngeal elevation and tongue base retraction. There is vallecular residue. Laryngeal penetration without aspiration. Cervical/esophageal stage: Adequate function. IMPRESSION: Oropharyngeal dysphagia with laryngeal penetration without aspiration. Please correlate with speech pathologist findings and specific feeding recommendations. Reviewed, dictated and finalized at location A. IMPRESSION: Oropharyngeal dysphagia with laryngeal penetration without aspirati on. Please correlate with speech pathologist findings and specific feeding rec ommendations.
--- NOTE | ~2025-05-20 | XR_ITS ---
MODIFIED ESOPHAGRAM HISTORY: Coughing with liquids TECHNIQUE: Modified barium esophagram was performed on 05/21/2025. I administered fluoroscopy and performed the exam with speech pathologist. Patient was seated for lateral fluoroscopic imaging for ingestion of thin liquids, pudding, solids and quantified amounts, followed by thin liquids in uncontrolled amounts. This was recorded on tape. A single fluoroscopic spot image was also recorded. The DAP for this procedure was 3.5 Gycm2. The amount of fluoroscopy time used during this procedure was 6.2 minutes. FINDINGS: Oral stage: Reduced lingual movement. Pharyngeal stage: Reduced laryngeal elevation and tongue base retraction. There is vallecular and piriform sinus residue. Flash laryngeal penetration without aspiration. There is oropharyngeal dysfunction.. Cervical/esophageal stage: Esophageal/pharyngeal backflow secondary to prominent lower cervical anterior osteophytes. IMPRESSION: Dysphagia with flash laryngeal penetration without aspiration. Please correlate with speech pathologist findings and specific feeding recommendations. Reviewed, dictated and finalized at location A. IMPRESSION: Dysphagia with flash laryngeal penetration without aspiration. Ple ase correlate with speech pathologist findings and specific feeding recommendat ions.
--- NOTE | ~2025-05-20 | XR_ITS ---
EXAMINATION: XR fl Dobhoff insert/rad w img DATE: 05/26/2025 11:29 INDICATION: Nasoenteric feeding tube required for feeding TECHNIQUE: A Dobbhoff type feeding tube was advanced into the duodenum utilizing intermittent fluoroscopy. Final image demonstrates the feeding tube in position with the weighted tip at the expected location of the ligament of Treitz. The tube was flushed with 10 mL sterile saline and fixed to the nares with adhesive tape. A single fluoroscopic image was recorded. The amount of fluoroscopy time used during this procedure was 2.9 minutes. 2 images were recorded. Total DAP was 16.077 Gycm^2. There were no immediate complications. FINDINGS/IMPRESSION: Successful fluoroscopy-guided Dobbhoff feeding tube placement with distal tip in the fourth portion of the duodenum. Reviewed, dictated and finalized at location A.
--- NOTE | ~2025-05-20 | XR_ITS ---
EXAMINATION: XR chest 1V portable 05/26/2025 21:59 INDICATION: Shortness of breath PROCEDURE: AP portable chest COMPARISON: Comparison to multiple prior studies sequentially, with oldest reviewed study dated 04/21/2025. FINDINGS: There is developing right upper lobe infiltrates. The cardiomediastinal silhouette is within normal limits. There are no pleural effusions. There is no pneumothorax suspected. Pacemaker leads are stable. No significant effusion or pneumothorax. Feeding tube in the stomach. Tip in the SVC. IMPRESSION: 1: Developing right upper lobe infiltrates, suspicious for pneumonia.. Reviewed, dictated and finalized at location O.
--- NOTE | ~2025-05-20 | XR_ITS ---
Examination: XR chest 2V Clinical History: shortness of breath Comparison: Shortness of breath Technique: PA and Lateral Findings: Left ICD. Heart size mildly enlarged. Small patchy airspace disease left lower lobe. No acute bony abnormality. Osteopenia. IMPRESSION: 1. Small airspace disease left lower lobe. Reviewed, dictated and finalized at location R.
--- NOTE | 2025-05-20 05:25 | ECG_ITS ---
Test Date: 2025-05-20 05:27:42 Measurements Intervals [place] Rate: 71 P: 53 VA: 150 QRS: -9 QRSD: 173 T: 105 QT: 378 QTc: 412 Interpretive Statements ELECTRONIC ATRIAL AND VENTRICULAR PACEMAKER ATYPICAL ECG Compared to ECG 05/07/2025 14:49:32 Atrial-paced complex(es) or rhythm no longer present Electronically Signed On 05-20-2025 08:09:34 CDT by Leroy Seo M.D.
--- NOTE | 2025-05-20 05:30 | ED.SOB ---
HPI - SOB/Dyspnea General Chief Complaint: Shortness of Breath/Dyspnea Stated Complaint: sob Time Seen by Provider: 05/20/25 05:24 Source: patient and EMS Mode of arrival: EMS Limitations: no limitations History of Present Illness HPI Narrative: This is a 79-year-old female with history of CHF, COPD, CKD, CVA, hyperlipidemia, hypertension who presents the ED for shortness of breath. Patient states that for the past 4 hours she has been having worsening shortness of breath. She states this is usually happens when she has a CHF exacerbation. She took 40 mg of Lasix prior to calling EMS. EN route, EMS gave a DuoNeb with improvement of her symptoms. Patient reports that her shortness of breath has improved. She has had some flu-like symptoms. She has had a cough productive of clear sputum. Denies fevers, chest pain, nausea vomiting, diarrhea constipation, abdominal pain. Related Data Home Medications ?Medication ?Instructions ?Recorded ?Confirmed ?Last Taken ?Type trazodone 150 mg tablet 150 mg PO HS 03/22/21 04/22/25 04/21/25 History venlafaxine 37.5 mg 37.5 mg PO DAILY 08/22/22 04/22/25 04/21/25 History capsule,extended release 24 hr (Effexor XR) rosuvastatin 40 mg tablet 40 mg PO DAILY 12/27/23 04/22/25 04/21/25 History amiodarone 200 mg tablet 400 mg PO DAILY 01/02/24 04/22/25 04/21/25 History clonazepam 0.5 mg tablet 0.5 mg PO TID 01/02/24 04/22/25 04/21/25 History levothyroxine 150 mcg tablet 150 mcg PO DAILY 01/02/24 04/22/25 04/21/25 History carvedilol 12.5 mg tablet 25 mg PO DAILY 12/24/24 04/22/25 04/21/25 History cyanocobalamin (vitamin B-12) 1,000 mcg subcut MONTHLY 03/25/25 04/22/25 04/21/25 History 1,000 mcg/mL injection solution donepezil 10 mg tablet 10 mg PO HS 03/25/25 04/22/25 04/21/25 History famotidine 20 mg tablet 20 mg PO Q12H PRN reflux 03/25/25 04/22/25 04/21/25 History furosemide 40 mg tablet 40 mg PO 3XW 03/25/25 04/22/25 04/21/25 History ondansetron 4 mg disintegrating 8 mg PO Q12H PRN nausea and 03/25/25 04/22/25 04/21/25 History tablet vomiting spironolactone 25 mg tablet 25 mg PO DAILY 03/25/25 04/22/25 04/21/25 History Allergies Allergy/AdvReac Type Severity Reaction Status Date / Time codeine Allergy Unknown Unknown Verified 05/07/25 12:34 hydroxyzine Allergy Unknown Unknown Verified 05/07/25 12:34 lorazepam Allergy Unknown Unknown Verified 05/07/25 12:34 tramadol Allergy Unknown Unknown Verified 05/07/25 12:34 NSAIDS (Non-Steroidal AdvReac Unknown Nausea Verified 05/07/25 12:34 Anti-Inflamma sumatriptan AdvReac Unknown FELT Verified 05/07/25 12:34 HORRIBLE Review of Systems Review of Systems: Gen.: Denies fevers or chills Eyes: Denies eye pain or visual change ENT: Denies congestion Respiratory: As per HPI CV: Denies chest pain or palpitations GI: Denies abdominal pain nausea, emesis or diarrhea denies burning, urgency, frequency or hematuria Musculoskeletal: Denies back pain or muscle pain Neuro: Denies numbness, tingling, weakness or focal weakness Skin: Denies rash Except as documented, all other systems reviewed and negative PMFSH Past Medical History Medical History Chronic anticoagulation Transient ischemic attack Gastroesophageal reflux disease Chronic kidney disease Depression with anxiety Deep venous thrombosis Heart failure with reduced ejection fraction EF was 20 to 25% in March 2021. Left bundle branch block Hyperlipidemia Hypertension Hypothyroidism Cardiomyopathy Bipolar disorder Surgical History Surgical History History of colon resection History of bilateral knee arthroplasty History of repair of left rotator cuff History of bladder suspension procedure History of tonsillectomy History of cardiac catheterization History of partial hysterectomy History of orthopedic surgery Family History Family History Father Hypertension Cerebrovascular accident Mother Family history of diabetes mellitus in first degree relative Family history of lung disease Family history of coronary artery disease Sibling Family history of diabetes mellitus in first degree relative Cardiomyopathy Son Family history of mental disorder Other Family history of alcoholism Family history of arthritis Family history of gout Social History Social History Social History: Surrogate medical decision maker: Man Linton, sibling. Code status: Full code. Smoking status: Never smoker Second hand tobacco smoke exposure: No Alcohol intake: never Substance use: never Substance use type: does not use Do You Feel Safe in your Home?: Yes Lack of Transportation: No Lack of Food: Never True Current Housing: I Have Housing Concerned About Future Housing: No Difficulty Paying Gas/Electric Bills: No Difficulty Paying for Meds: No Currently Unemployed: No Education: High School Diploma/GED Difficulty w/ Childcare or Family Care: No Living arrangements: with roommate(s) Additional living arrangements comments: . Has 1 child. Additional occupation/education comments: Retired from the [employer]. Spiritual care concerns: No Exam Narrative: APPEARANCE: No acute distress, nontoxic, resting in bed EYES: EOMI HEENT: Normocephalic, atraumatic, OMM RESPIRATORY: Tachypneic, on a non-rebreather/DuoNeb diminished breath sounds throughout with faint expiratory wheeze CARDIOVASCULAR: Regular rate and rhythm without murmurs rubs or gallops. ABDOMINAL: Soft, nontender, nondistended, no rebound or guarding MUSCULOSKELETAl: Moves all extremities. No clubbing, cyanosis or edema. NEURO: Awake and alert. Following commands, speech normal, no focal deficits SKIN:: Warm, dry. No rashes lesions or abrasions PSYCHIATRIC: Normal affect/mood, Course Vital Signs Vital signs: Vital Signs Temperature 98.7 F 05/20/25 05:19 Pulse Rate 82 05/20/25 05:19 Respiratory Rate 30 H 05/20/25 05:19 Blood Pressure 152/99 H 05/20/25 05:19 Pulse Oximetry 100 05/20/25 05:19 Oxygen Delivery Simple Face Mask 05/20/25 05:19 Oxygen Flow Rate 10 05/20/25 05:19 Temperature 98.7 F 05/20/25 05:19 Pulse Rate 70 05/20/25 07:20 Respiratory Rate 20 05/20/25 07:20 Blood Pressure 132/65 05/20/25 07:20 Pulse Oximetry 94 05/20/25 07:20 Oxygen Delivery Simple Face Mask 05/20/25 05:19 Oxygen Flow Rate 10 05/20/25 05:19 MDM - SOB/Dyspnea MDM Narrative Medical decision making narrative: 79-year-old female who presents to the ED for shortness of breath. On initial evaluation, patient was mildly tachypneic, afebrile, hemodynamically stable. She was given 1 DuoNeb by EMS. She had diminished breath sounds throughout with faint end-expiratory wheeze. Patient was given additional DuoNeb and 60 mg prednisone. On re-evaluation, she did have improvement of her breath sounds. Chest x-ray did reveal a left-sided pneumonia. Patient was given Rocephin/doxycycline. ABG did show hypoxemia but suspect this was a mixed sample. She had a leukocytosis at 16.6. CMP was without significant abnormalities. BNP elevated at greater than 7000. Troponin elevated at 0.05. Patient will require admission given these findings. Discussed case hospitalist admit the patient. Patient was agreeable to this plan. Differential Diagnosis Differential diagnosis: Likely acute exacerbation of chronic obstructive airways disease, congestive heart failure, community acquired pneumonia and other (ACS) Medical Records Attestation: I reviewed the patient's medical records. Lab Data Attestation: I reviewed the patient's lab results. 05/20/25 06:22 05/20/25 06:22 Labs: Lab Results 05/20/25 Range/Units 06:22 WBC 16.6 H (4.5-10.0) K/mm3 RBC 4.06 L (4.2-5.4) M/mm3 Hgb 12.9 (12.0-15.0) g/dL Hct 42.2 (37.0-47.0) % MCV 103.9 H (80-100) fl MCH 31.8 (26-34) pg MCHC 30.6 L (32-36) g/dl RDW 14.3 (11.5-14.5) % Plt Count 262 (150-375) k/mm3 MPV 9.0 (7.4-10.4) fl Immature Gran % (Auto) 0.6 H (0-0.5) % Neut % (Auto) 86.6 H (45.5-73.1) % Lymph % (Auto) 6.3 L (18.3-44.2) % [place] % (Auto) 6.2 (2.6-8.5) % Eos % (Auto) 0.1 (0-4.4) % Baso % (Auto) 0.2 (0.2-1.2) % Lymph # (Auto) 1.05 (0.9-3.2) K/mm3 [place] # (Auto) 1.0 H (0.1-0.6) K/mm3 Eos # (Auto) 0.0 (0-0.3) K/mm3 Baso # (Auto) 0.0 (0.0-0.1) K/mm3 Abs Immat Gran (auto) 0.10 H (0.00-0.031) K/mm3 Absolute Neuts (auto) 14.3 H (1.3-6.7) K/mm3 Absolute Nucleated RBC 0.000 (0.0-0.012) K/mm3 Nucleated RBC % 0.0 (0.0-0.2) % Sodium 138 (137-145) mmol/L Potassium 4.3 (3.4-5.0) mmol/L Chloride 103 (98-107) mmol/L Carbon Dioxide 26 (22-30) mmol/L Anion Gap 9 (4-12) mmol/L BUN 12 (7-17) mg/dL Creatinine 1.03 H (0.7-1.0) mg/dL Estim Creat Clear Calc 35 ml/min Estimated GFR 52 L (59 - ) Glucose 125 H (65-110) mg/dL Calcium 8.6 (8.4-10.2) mg/dL Total Bilirubin 0.5 (0.2-1.3) mg/dL AST 31 (14-36) U/L ALT 22 (6-35) U/L Alkaline Phosphatase 84 (38-126) U/L Troponin I 0.050 H* (0.000-0.034) ng/mL NT-Pro-B Natriuret Pep 7270 H (19.9-100) pg/mL Total Protein 8.1 (6.3-8.2) g/dL Albumin 4.0 (3.5-5.1) g/dL ABG Data ABG results: 05/20/25 05:43 Puncture Site Right radial ABG pH 7.402 ABG pCO2 43.3 ABG pO2 45.5 L* ABG PO2/FiO2 Ratio 2.17 ABG HCO3 26.3 H ABG O2 Saturation 81.5 L* ABG O2 Content 15.2 L ABG Base Excess 1.3 A-a Gradient 52.4 Oxyhemoglobin 81.0 L* Total Hemoglobin 13.4 O2 Delivery Device Room air O2 Liters/Min Not Reportable FiO2 21 Imaging Data Attestation: I personally reviewed and interpreted this imaging study as follows: (I reviewed the radiologist's interpretation) Radiologist's impression: Impressions Chest X-Ray 05/20/25 06:00 IMPRESSION: 1. Small airspace disease left lower lobe. ECG Data EKG #1: ECG completion date: 05/20/25 ECG completion time: 05:27 Interpretation: Electronic atrial and ventricular pacemaker, [facility]-elevation Discharge Plan Discharge Clinical Impression: COPD exacerbation, Acute non-ST elevation myocardial infarction (NSTEMI) Acute exacerbation of CHF (congestive heart failure) Qualifiers: Heart failure type: unspecified Qualified Code(s): I50.9 - Heart failure, unspecified CAP (community acquired pneumonia) Qualifiers: Laterality: right Lung location: upper lobe of lung Qualified Code(s): J18.9 - Pneumonia, unspecified organism Patient Disposition: Still a Patient Condition: Stable Patient Language: Nepali Prescriptions: No Action venlafaxine [Effexor XR] 37.5 mg capsule,extended release 24hr 37.5 mg PO DAILY trazodone 150 mg tablet 150 mg PO HS carvedilol 12.5 mg tablet 25 mg PO DAILY rosuvastatin 40 mg tablet 40 mg PO DAILY levothyroxine 150 mcg Tablet 150 mcg PO DAILY amiodarone 200 mg tablet 400 mg PO DAILY clonazepam 0.5 mg tablet 0.5 mg PO TID cefdinir 300 mg capsule 300 mg PO Q12H 5 Days Qty: 10 0RF famotidine 20 mg tablet 20 mg PO Q12H PRN (Reason: reflux) spironolactone 25 mg tablet 25 mg PO DAILY cyanocobalamin (vitamin B-12) 1,000 mcg/mL solution 1,000 mcg subcut MONTHLY donepezil 10 mg tablet 10 mg PO HS furosemide 40 mg tablet 40 mg PO 3XW Rx Instructions: -W-F ondansetron 4 mg tablet,disintegrating 8 mg PO Q12H PRN (Reason: nausea and vomiting) guaifenesin [Mucus Relief ER] 600 mg Tablet Extended Release 12hr 600 mg PO Q12HR Qty: 20 0RF warfarin 3 mg tablet 2 mg PO DAILY Qty: 30 0RF Follow-up/Referrals: Maureen,MD Masoud [Primary Care Provider, Unknown]
--- OUTSIDE RECORDS SUMMARY | 2025-05-20 05:43 | XMS_ITS | Clinical Summary ---
Author Organization [facility] [address] Address [address] [place] [address] Care Team Providers Care Lining Machine Tender Name Role Phone Bandar Gaffney MD Unavailable [phone] Dillan Reddy MD Primary Care Provide r [...] in situ 04/13/2021 Overview (04/21/2023): Dodge DDD [place] BI-V ICD imp on 04/12/21 for DCM, [...] Description 02/19/2025 1:30 PM CDT Ancillary Procedure [facility] Cardiology [address] [place] [address] Dilated cardiomyopathy (HCC); VT (ventricular tachycardia) (HCC); ICD (implantable cardioverter-defibrilla tor), biventricular, in situ; Paroxysmal atrial fibrillation (HCC) from Last 3 Months Immunizations Immunization Administration [...] 04/13/2021 How often do you attend chur or pentecostalism services? 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 Gender Identity Not on file Sexual [...] Risk Assessment 03/26/2024 03/26/2023 Covid-19 Vaccine (6 2024-2 6 season) 2025 05/26/2022, 02/22/2022, 06/30/2021, Additional history exists Influenza Vaccine (#1) 2025 , 05/12/2020, 06/04/2019, Additional history exists Zoster Vaccine Completed 05/01/2018, 01/04/2018 Pneumococcal vaccine 65+ Completed 05/15/2018, 11/2015 Medical Devices Implanted Type Area Tile Roofer Device Identifier Shelf Expiration Date Model / Serial / Lot Dodge Vascular [id number] Defib Cardiac [id number] [place] Hf Df4 Is-4 Is-1 [facility] - [id number] - [id number] Implanted:Qty: 1 on 04/12/2021 by aBndar Gaffney MD at [facility] ICD Dodge Vascular [id number] 02/01/2023 C [id number] / [id number] / [employer] 7120q/65 Durata 7fr 65cm 2 Coil Df-4 True Bipolar Active Fixation - [id number] - [id number] Implanted:Qty: 1 on 04/12/2021 by Bandar Gaffney MD at [facility] Lead [employer] [id number] 02/01/2022 7120Q/65 / [id number] / [employer] 2088tc/52 Tendril Sts 6fr 52cm Is-1 Connector Active Fixation Bipolar Soft - [id number] - [id number] Implanted:Qty: 1 on 04/12/2021 by Bandar Gaffney MD at [facility] Lead [employer] [id number] 03/03/2024 2088TC/52 / [id number] / [employer] 1458q/86 Quartet 5fr [id number] 4 Electrode Is-4 Connector Steerable Tip - [id number] - [id number] Implanted:Qty: 1 on 04/12/2021 by Bandar Gaffney MD at [facility] Lead [employer] [id number] 02/02/2024 1458Q/86 / [id number] / Procedures Procedure Name Priority Date/Time Associated [...] Narrative 02/25/2025 12:51 PM CDT Dodge DDD [place] BI-V ICD imp on 04/12/21 for DCM, VT, Afib. MELANY-Yeimy. Angélica-Marcial. Jose De Jesus remote. Bluetooth Circuit Component [...] See scanned report. Office device f/u 05/27/2026. [place] remote f/u 05/27/2025. Dulce Gutierrez RN Samy Ceja MD [facility] C[facility]IAC SERVICES PROC EDURES Final Result from Last 3 Months Insurance UHC MEDICARE ADVANTAGE UHC MEDICARE ADVANTAGE UHC MEDICARE ADVANTAGE Advance Directives For more information, please contact: [phone] * Full Code (Latest Code Status on File) Date Activated Date Inactivated Comments 03/23/2023 7:04 AM 03/26/2023 7:27 PM Care Teams Lining Machine Tender Relationship Specialty Start Date End Date Dillan Reddy MD [address] [facility] [address] [place] [address] PCP - General Internal Medicine 11/09/23 Bandar Gaffney MD Consulting Physician Cardiology 04/13/21
--- OUTSIDE RECORDS SUMMARY | 2025-05-20 05:43 | XMS_ITS | Encounter Summary ---
Author Organization [facility] Healthcare Address [address] [place] [address] Care Team Providers Care Director Life Name Role Phone Bandar Gaffney MD Unavailable [phone] Dillan Reddy MD Primary Care Provide r Encounter Details Date Type Department Care Team (Late st Contact Info) Description 12/04/[address] 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
--- OUTSIDE RECORDS SUMMARY | 2025-05-20 05:43 | XMS_ITS | Encounter Summary ---
Author Organization [facility] Healthcare Address [address] [place] [address] Care Team Providers Care Pastry Sous Chef Name Role Phone Lana Tovar MD Primary Care Provider + Bandar Gaffney MD Unavailable [phone] Dillan Reddy MD Primary Care Provide r Encounter Details Date Type Department Care Team (Late st Contact Info) Description 01/17/2018 Orders Only [facility] Health Information Management [address] [place] [address] Scanning, Provider Social History Tobacco Use Types Packs/Day Years Used Date Smoking Tobacco: Never Alcohol Use Standard Drinks/Week Comments No 0 (1 standard drink = 0.6 oz pur e alcohol) Comments Unknown Sex and Gender Information Value Date Recorded Sex Assigned at Not on file 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
--- OUTSIDE RECORDS SUMMARY | 2025-05-20 05:43 | XMS_ITS | Clinical Summary ---
Author Organization [facility] Address [address] [place] [address] Phone Care Team Providers Care Internal Communications Intern Name Role Phone Lana Tovar MD Primary [...] MEDICARE C [facility] Care Teams Internal Communications Intern Relationship Specialty Start Date End Date Lana Tovar MD [address] [place] [id number] PCP - General Family Medicine 12/23/16
--- OUTSIDE RECORDS SUMMARY | 2025-05-20 05:43 | XMS_ITS | Encounter Summary ---
Author Organization [facility] Healthcare Address [address] [place] [address] Care Team Providers Care Office Machine Embossograph Operator Name Role Phone Lana Tovar MD Primary Care Provider + Bandar Gaffney MD Unavailable [phone] Dillan Reddy MD Primary Care Provide r Encounter Details Date Type Department Care Team (Late st Contact Info) Description 03/26/[address] 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
--- OUTSIDE RECORDS SUMMARY | 2025-05-20 05:43 | XMS_ITS | Clinical Summary ---
Author Organization [facility] Address [address] [place] [address] Care Team Providers Care Broiler Manager Name Role Phone Unavailable Primary Care Provider [...] Documents on File Type Date Recorded Patient Spray Mixer Expl anation Advance Directives and Living Will 01/14/2016 12:00 AM ADVANCED DIRECTIVES
--- OUTSIDE RECORDS SUMMARY | 2025-05-20 05:43 | XMS_ITS | Encounter Summary ---
Author Organization [facility] Medical Group Address [address] [facility] [address] [place] [address] Care Team Providers Care Industrial Maintenance Millwright Name Role Phone Lana Tovar MD Primary Care Provider + Lana Tovar MD Primary Care Provider + Bandar Gaffney MD Unavailable [phone] Dillan Reddy MD Primary Care Provide r Encounter Details Date Type Department Care Team (Late st Contact Info) Description 2016 Orders Only [facility] ProviderSaurabh MD [address] [place] [address] Social History Tobacco Use Types Packs/Day Years Used Date Smoking Tobacco: Never Alcohol Use Standard Drinks/Week Comments No 0 (1 standard drink = 0.6 oz pur e alcohol) Comments Unknown Sex and Gender Information Value Date Recorded Sex Assigned at Not on file 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
[2025-05-20 05:51] LABS: Alveolar/Arterial O2 Gradient 52.4 mmHg; Fractional Inspired Oxygen 21 %; HCO3 ABG 26.3 mEq/l (22.0-26.0); Oxygen Content ABG 15.2 %vol (16.0-22.0); PCO2 ABG 43.3 mmHg (35.0-45.0); PO2 FiO2 Ratio Arterial Blood 2.17 %
[2025-05-20 06:05] LABS: PO2 ABG 45.5 mmHg (80.0-100.0)
[2025-05-20 06:06] LABS: Oxygen Saturation ABG 81.5 % (95.0-100.0)
[2025-05-20 06:07] LABS: Modified Allen's Test Pass; Site Drawn RIGHT RADIAL
[2025-05-20] MEDS: IPRATROPIUM 0.5 MG/ALBUTEROL SULFATE 2.5 MG AMPUL.NEB 3 ML INHALATION (06:30)
[2025-05-20 06:32] LABS: Hematocrit 42.2 % (37.0-47.0); Hemoglobin 12.9 g/dL (12.0-15.0); Immature Granulocyte Percent A 0.6 % (0-0.5); Lymphocytes Absolute Auto 1.05 K/mm3 (0.9-3.2); Mean Corpuscular HGB Conc 30.6 g/dl (32-36); Mean Corpuscular Hemoglobin 31.8 pg (26-34); Mean Corpuscular Volume 103.9 fl (80-100); Nucleated Red Blood Cells Absolute Auto 0.000 K/mm3 (0.0-0.012); Nucleated Red Blood Cells Perc 0.0 % (0.0-0.2); Platelet Count Result 262 k/mm3 (150-375); Red Blood Count 4.06 M/mm3 (4.2-5.4); White Blood Count 16.6 K/mm3 (4.5-10.0)
[2025-05-20 06:44] LABS: Alanine Aminotransferase 22 U/L (6-35); Albumin Level 4.0 g/dL (3.5-5.1); Alkaline Phosphatase 84 U/L (38-126); Anion Gap 9 mmol/L (4-12); Aspartate Amino Transferase 31 U/L (14-36); Bilirubin,Total 0.5 mg/dL (0.2-1.3); Blood Urea Nitrogen 12 mg/dL (7-17); Calcium 8.6 mg/dL (8.4-10.2); Carbon Dioxide 26 mmol/L (22-30); Chloride 103 mmol/L (98-107); Estimated CRCL calculation 35 ml/min; Estimated Glomerular Filt Rate 52; Glucose 125 mg/dL (65-110); Potassium 4.3 mmol/L (3.4-5.0); Sodium 138 mmol/L (137-145); Total Protein 8.1 g/dL (6.3-8.2)
--- NOTE | 2025-05-20 06:47 | PC.NURSE ---
vascular access at the bedside to attempt to collect blood and blood cultures.
[2025-05-20 06:58] LABS: NT Pro B Type Natriuretic Pept 7270 pg/mL (19.9-100); Troponin I 0.050 ng/mL (0.000-0.034)
[2025-05-20] MEDS: cefTRIAXone 2 GM in SODIUM CHLORIDE 0.9% IV 100 ML 200 ML IVPB (08:32)
--- NOTE | 2025-05-20 09:21 | ECG_ITS ---
Test Date: 2025-05-20 09:26:11 Measurements Intervals [place] Rate: 79 P: 26 [place]: 150 QRS: -40 QRSD: 153 T: 100 QT: 491 QTc: 563 Interpretive Statements ELECTRONIC VENTRICULAR PACEMAKER ABNORMAL RHYTHM ECG Compared to ECG 05/20/2025 05:27:42 No significant changes Electronically Signed On 05-20-2025 09:27:33 CDT by Fred Russell M.D.
--- NOTE | 2025-05-20 09:30 | PC.NURSE ---
Patient abx not given at due time due to several IV infiltrations, hospitalist called to attempt to get PICC line. No answer from hospitalist, waiting for call back
[2025-05-20 09:52] LABS: Troponin I 0.056 ng/mL (0.000-0.034)
--- NOTE | 2025-05-20 10:37 | PC.NURSE ---
hospitalist Dr. Campbell called back and gave verbal order for PICC line due to multiple failed IVs and a difficult blood draw. this RN called vascular access and was told it will be a bit due to orders on the floor and being busy
[2025-05-20] MEDS: LIDOCAINE 1% PF INJ 5 ML VIAL INFILTRATE (11:20)
[2025-05-20] MEDS: DOXYCYCLINE IV 100 MG in SODIUM CHLORIDE 0.9% IV 100 ML IVPB ×2 (12:32→22:30)
--- NOTE | 2025-05-20 12:36 | ECG_ITS ---
Test Date: 2025-05-20 12:56:43 Measurements Intervals [place] Rate: 68 P: 44 [place]: 147 QRS: -26 QRSD: 165 T: 81 QT: 416 QTc: 445 Interpretive Statements ELECTRONIC VENTRICULAR PACEMAKER ATYPICAL ECG Compared to ECG 05/20/2025 09:26:11 No significant changes Electronically Signed On 05-20-2025 17:17:38 CDT by Leroy Seo M.D.
[2025-05-20 13:10] LABS: Troponin I 0.043 ng/mL (0.000-0.034)
--- OUTSIDE RECORDS SUMMARY | 2025-05-20 14:31 | XMS_ITS | Encounter Summary ---
Author Organization [facility] Address [address] [place] [id number] Care Team Providers Care Chainstitch Pants Outseamer Name Role Phone Lana Tovar MD Primary Care Provider + Lana Tovar MD Primary Care Provider + Bandar Gaffney MD Unavailable [phone] Dillan Reddy MD Primary Care Provide r Encounter Details Date Type Department Care Team (Late st Contact Info) Description 2016 Orders Only [facility] ProviderSaurabh MD [address] [place] [id number] Social History Tobacco Use Types Packs/Day Years Used Date Smoking Tobacco: Never Alcohol Use Standard Drinks/Week Comments No 0 (1 standard drink = 0.6 oz pur e alcohol) Comments Unknown Sex and Gender Information Value Date Recorded Sex Assigned at Not on file 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
--- OUTSIDE RECORDS SUMMARY | 2025-05-20 14:31 | XMS_ITS | Clinical Summary ---
Author Organization [facility] Address [address] [place] [address] Phone Care Team Providers Care Veterinarian Helper Name Role Phone Lana Tovar MD [...] to complete this topic Insurance MEDICARE C [facility] Care Teams Veterinarian Helper Relationship Specialty Start Date End Date Lana Tovar MD [address] [place] [phone] PCP - General Family Medicine 12/23/16
--- OUTSIDE RECORDS SUMMARY | 2025-05-20 14:31 | XMS_ITS | Clinical Summary ---
Author Organization [facility] [address] Address [address] [place] [address] Care Team Providers Care Manager Of Revenue Name Role Phone Bandar Gaffney MD Unavailable [phone] Dillan Reddy MD Primary Care Provide r [...] in situ 04/13/2021 Overview (04/21/2023): Dodge DDD [place] BI-V ICD imp on 04/12/21 for DCM, [...] Description 02/19/2025 1:30 PM CDT Ancillary Procedure [facility] Cardiology [address] [place] [address] Dilated cardiomyopathy (HCC); [place] (ventricular [...] How often do you attend chur or cheondoism services? 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 Gender Identity Not on file Sexual [...] 05/15/2018, 11/2015 Medical Devices Implanted Type Area Wire Roller Device Identifier Shelf Expiration Date Model / Serial / Lot Dodge Vascular [id number] Defib Cardiac [id number] [place] Hf Df4 Is-4 Is-1 [facility] - [id number] - [id number] Implanted:Qty: 1 on 04/12/2021 by Bandar Gaffney MD at [facility] ICD Dodge Vascular [id number] 02/01/2023 C [id number] / [id number] / [employer] 7120q/65 Durata 7fr 65cm 2 Coil Df-4 True Bipolar Active Fixation - [id number] - [id number] Implanted:Qty: 1 on 04/12/2021 by Bandar Gaffney MD at [facility] Lead [employer] [id number] 02/01/2022 7120Q/65 / [id number] / [employer] 2088tc/52 Tendril Sts 6fr 52cm Is-1 Connector Active Fixation Bipolar Soft - [id number] - [id number] Implanted:Qty: 1 on 04/12/2021 by Bandar Gaffney MD at [facility] Lead [employer] [id number] 03/03/2024 2088TC/52 / [id number] / [employer] 1458q/86 Quartet 5fr [id number] 4 Electrode Is-4 Connector Steerable Tip - [id number] - [id number] Implanted:Qty: 1 on 04/12/2021 by Bandar Gaffney MD at [facility] Lead [employer] [id number] 02/02/2024 1458Q/86 / [id number] / Procedures Procedure Name Priority Date/Time Associated [...] Narrative 02/25/2025 12:51 PM CDT Dodge DDD [place] BI-V ICD imp on 04/12/21 for DCM, [...] See scanned report. Office device f/u 05/27/2026. Neal remote f/u 05/27/2025. Dulce Gutierrez RN Samy Ceja MD [facility] C[facility] PROC EDURES Final Result from Last 3 Months Insurance UHC MEDICARE ADVANTAGE [facility] MEDICARE Address: [facility] [address] [place] [address] UHC MEDICARE ADVANTAGE UHC MEDICARE ADVANTAGE Advance Directives For more information, please contact: [phone] * Full Code (Latest Code Status on File) Date Activated Date Inactivated Comments 03/23/2023 7:04 AM 03/26/2023 7:27 PM Care Teams Manager Of Revenue Relationship Specialty Start Date End Date Dillan Reddy MD [address] [facility] [address] [place] [address] PCP - General Internal Medicine 11/09/23 Bandar Gaffney MD Consulting Physician Cardiology 04/13/21
--- OUTSIDE RECORDS SUMMARY | 2025-05-20 14:31 | XMS_ITS | Patient Health Record ---
Author Organization [facility] [email or web address] [facility] Address [address] [facility] [address] [place] [address] Care Team Providers Care Underground Bolting Machine Operator Name Role Phone Maureen URBINA, Masoud Primary Care Provider Un available Patric Amaya Unavailable [phone] Allergies Allergen (clinical drug ingredient) Drug/Non Drug [...] End Date Status traZODone HCl 150 MG Tablet 1.5 tablet at bedtime Oral Once a day; Duration: 90 days 05/12/2025 Active Donepezil HCl 10 MG Tablet 1 tablet at bedtime Oral Once a day; Duration: 90 days 05/12/2025 Active Venlafaxine HCl ER 37.5 MG Capsule Extended Release 24 Hour 1 capsule with food Orally Once a day; Duration: 90 days 05/12/2025 Active Amiodarone HCl 200 MG Tablet Oral; Duration: 60 Days Acti ve Famotidine 20 MG Tablet TAKE 1 TABLET BY MOUTH TWICE DAILY NEEDED Oral; Duration: 90 Days Active traZODone HCl 150 MG Tablet 1.5 tablet at bedtime Oral Once a day; Duration: 30 days 09/13/2024 Active rOPINIRole HCl 0.5 MG Tablet TAKE 1 TABLET BY MOUTH ONCE DAILY AT BEDTIME FOR 90 DAYS; Duration: 90 Active Ondansetron HCl 4 MG Tablet TAKE 1 TABLET BY MOUTH TWICE DAILY NEEDED Oral; Duration: 5 Days Active Vraylar 1.5 MG Capsule 1 capsule at bedt raquel Oral every other day; Duration: 30 days Samples Active Furosemide 40 MG Tablet TAKE 1 TABLET BY MOUTH THREE TIMES A WEEK Oral; Duration: 84 Days Active Warfarin Sodium 3 MG Tablet Oral 01/12/2024 Active Spironolactone 25 MG Tablet Oral; Duration: 30 Days Acti ve clonazePAM 0.5 MG Tablet 1 tablet Oral t hree times a day; Duration: 30 days 05/12/2025 Active Carvedilol 25 MG Tablet TAKE 1/2 (ONE-LOPEZ LF) TABLET BY MOUTH TWICE DAILY WITH MEALS Oral; Duration: 30 Days Active Cyanocobalamin 1000 MCG/ML Solution INJECT 1ML INTRAMUSCULARLY ONCE EVERY MONTH Injection; Duration: 90 Days Active Immunizations Vaccine Route Administration Date [...] Lives Alone, Receives Visits From Senior Services Living situation: Relies On [employer] For Care And Transportation Problems Problem Type SNOMED Code ICD Code Onset Dates Problem Status W/U Status Risk Notes Problem Bipolar affective disorder, currently depressed, mild (325701630) Bipolar disorder, current episode depressed, mild (F31.31) Active confirmed Problem Generalized anxiety disorder (33277336) Generalized anxiety disorder (F41.1) Active confirmed Problem Primary insomnia (4197826) Primary insomnia (F51.01) Active confirmed Problem Alzheimer's disease with late onset (252221769) Alzheimer's disease with late onset (G30.1) Active confirmed Problem Cardiomyopathy (84849591) Cardiomyopathy, unspecified (I42.9) Active confirmed Problem Heart failure (69084030) Heart failure, unspecified (I50.9) Active confirmed Problem Cerebral infarction (208928056) Cerebral infarction, unspecified (I63.9) Active confirmed Problem Recurrent falls (628133817) Repeated falls (R29.6) Active confirmed Problem Generalized anxiety disorder (57125962) CAM[place] (generalized anxiety disorder) (F41.1) Active confirmed Problem Hyperlipidemia (03707114) Hyperlipidemia (E78.5) 03/22/20 21 Active confirmed Problem Hypothyroidism (65378778) Hypothyroidism (E03.9) 03/22/20 21 Active confirmed Problem Cardiomyopathy (74749491) Cardiomyopathy (I42.9) 03/22/20 21 Active confirmed Problem Left bundle branch block (58704005) Left bundle branch block (LBBB) (I44.7) 03/23/20 21 Active confirmed Problem Ventricular tachycardia (disorder) (83074420) VT (ventricular tachycardia) (I47.20) 04/12/20 21 Active confirmed Problem Automatic implantable cardiac defibrillator in situ (667289239) ICD (implantable cardioverter-defi brillator), biventricular, in situ (Z95.810) 04/21/20 23 Active confirmed Vital Signs Heart Rate 62 /min 05/12/2025 Height-cm 165.1 cm 05/12/2025 Blood pressure diastolic 74 mm Hg 05/12/2025 Weight-kg 74.84 kg 05/12/2025 Height 65.00 in 05/12/2025 Blood pressure systolic 126 mm Hg 05/12/2025 Weight 165 lbs 05/12/2025 BMI 27.45 kg/m2 05/12/2025 Encounters Encounter Location Date Provider Diagnosis [facility] [employer] [place] [address] [facility] [address] [address] 06/14/2024 Patric Jose Luis Bipolar disorder, current episode depressed, mild F31.31 ; Cardiomyopathy, unspecified I42.9 ; Primary insomnia F51.01 ; Alzheimer's disease with late onset G30.1 ; CAMDEN (generalized anxiety disorder) F41.1 ; Hyperlipidemia E78.5 ; Left bundle branch block (LBBB) I44.7 and Hypothyroidism E03.9 [facility] [place] [id number] [facility] [address] [address] 07/15/2024 Patric Jose Luis Bipolar disorder, current episode depressed, mild F31.31 ; Cardiomyopathy, unspecified I42.9 ; Primary insomnia F51.01 ; Alzheimer's disease with late onset G30.1 ; CAMDEN (generalized anxiety disorder) F41.1 ; Hyperlipidemia E78.5 ; Left bundle branch block (LBBB) I44.7 and Hypothyroidism E03.[address] [address] 09/19/2024 Patric Jose Luis Bipolar disorder, current episode depressed, mild F31.31 ; Cardiomyopathy, unspecified I42.9 ; Primary insomnia F51.01 ; Alzheimer's disease with late onset G30.1 ; CAMDEN (generalized anxiety disorder) F41.1 ; Hyperlipidemia E78.5 ; Left bundle branch block (LBBB) I44.7 and Hypothyroidism E03.[address] [address] 10/17/2024 Patric Jose Luis Bipolar disorder, current episode depressed, mild F31.31 ; Primary insomnia F51.01 ; Alzheimer's disease with late onset G30.1 ; CAMDEN (generalized anxiety disorder) F41.1 ; Hyperlipidemia E78.5 and Hypothyroidism E03.[address] [address] 11/14/2024 Patric Jose Luis Encounter for screen ing for depression Z13.31 ; Encounter for screening for cardiovascular disorders Z13.6 ; Bipolar disorder, current episode depressed, mild F31.31 ; Primary insomnia F51.01 ; Alzheimer's disease with late onset G30.1 ; CAMDEN (generalized anxiety disorder) F41.1 ; Hyperlipidemia E78.5 and Hypothyroidism E03.[address] [address] 12/12/2024 Patric Jose Luis Encounter for screen ing for cardiovascular disorders Z13.6 ; Encounter for screening for depression Z13.31 ; Bipolar disorder, current episode depressed, mild F31.31 ; Primary insomnia F51.01 ; Alzheimer's disease with late onset G30.1 ; CAMDEN (generalized anxiety disorder) F41.1 ; Hyperlipidemia E78.5 and Hypothyroidism E03.[address] [address] 01/09/2025 Patric Jose Luis Bipolar disorder, current episode depressed, mild F31.31 ; Primary insomnia F51.01 ; Alzheimer's disease with late onset G30.1 ; CAMDEN (generalized anxiety disorder) F41.1 ; Negative depression screening Z13.31 and Encounter for screening for cardiovascular disorders Z13.[address] [facility] [address] [place] [address] 02/13/2025 Patric Jose Luis Bipolar disorder, current episode depressed, mild F31.31 ; Primary insomnia F51.01 ; Alzheimer's disease with late onset G30.1 ; Dietary counseling and surveillance Z71.3 ; CAMDEN (generalized anxiety disorder) F41.1 ; Encounter for screening for cardiovascular disorders Z13.6 and Encounter for screening for depression Z13.[address] [address] 03/12/2025 Patric Jose Luis Bipolar disorder, current episode depressed, mild F31.31 ; Primary insomnia F51.01 ; Alzheimer's disease with late onset G30.1 ; CAMDEN (generalized anxiety disorder) F41.1 and Heart failure, unspecified I50.[address] [address] 04/09/2025 Patric Jose Luis Bipolar disorder, current episode depressed, mild F31.31 ; Primary insomnia F51.01 ; Alzheimer's disease with late onset G30.1 ; CAMDEN (generalized anxiety disorder) F41.1 and Repeated falls R29.[address] [address] 05/12/2025 Patric Jose Luis Bipolar disorder, current episode depressed, mild F31.31 ; Primary insomnia F51.01 ; Alzheimer's disease with late onset G30.1 ; CAMDEN (generalized anxiety disorder) F41.1 ; Cerebral infarction, unspecified I63.9 ; Muscle weakness (generalized) M62.81 and Abnormal weight loss R63.[address] [facility] [address] [place] [address] 08/16/2024 Patric Jose Luis Generalized anxiety disorder F41.[address] [address] 09/13/2024 Patric Jose Luis Generalized anxiety disorder F41.1 and Primary insomnia F51.01 [facility] [address] [address] [place] [address] 11/26/2024 Patric Contrerasam [facility] [employer] [address] [place] [address] 03/28/2025 Patric Amaya Assessments Encounter Date Diagnosis (ICD Code) Assessment Notes Treatment Notes Treatment Clinical Notes Section Notes 09/13/2024 Generalized anxiety disorder (ICD-10 - F41.1) 08/16/2024 Generalized anxiety disorder (ICD-10 - F41.1) 10/17/2024 Bipolar disorder, current episode depressed, mild (ICD-10 - F31.31) Bipolar Disorder: Care Instructions material was published 10/17/2024 Primary insomnia (ICD-10 - F51.01) 12/12/2024 Encounter for screening for cardiovascular disorders (ICD-10 - Z13.6) 11/14/2024 Encounter for screening for depression (ICD-10 - Z13.31) 09/13/2024 Primary insomnia (ICD-10 - F51.01) 09/19/2024 [...] be confirmed. - Consider referral to a sales representative printing or director of cardiology for further evaluation and management. Bipolar Disorder [...] Healthcare Access - Assessment: The patient has [employer] insurance and is concerned about potential changes in network coverage, specifically mentioning [employer] potentially going out of network. - Plan: [...] devices or physical therapy if needed. 06/14/2024 Bipolar disorder, current episode depressed, [...] Support - Assessment: Patient is working with [employer] for Medicaid application, despite concerns about eligibility. [...] progress and address any new concerns. 01/09/2025 Bipolar disorder, current episode depressed, mild [...] Continue current sleep hygiene and medication regimen. 05/12/2025 Bipolar disorder, current episode depressed, mild (ICD-10 - F31.31) Continue Venlafaxine HCl ER Capsule Extended Release 24 Hour, 37.5 MG, 1 capsule with food, Orally, Once a day, 90 days, 90 Capsule, Refills 1 Primary insomnia Continue traZODone HCl Tablet, 150 MG, 1.5 tablet at bedtime, Oral, Once a day, 90 days, 135 Tablet, Refills 0 Alzheimer's disease with late onset Continue Donepezil HCl Tablet, 10 MG, 1 tablet at bedtime, Oral, Once a day, 90 days, 90 Tablet, Refills 0 CAM[place] (generalized anxiety disorder) Refill clonazePAM Tablet, 0.5 MG, 1 tablet, Oral, three times a day, 30 days, 90 Tablet, Refills 0 Cerebral infarction, unspecified 05/12/2025 Primary insomnia (ICD-10 - F51.01) 05/12/2025 Alzheimer's disease with late onset (ICD-10 - G30.1) 04/09/2025 Alzheimer's disease with late onset (ICD-10 [...] month. 01/09/2025 Primary insomnia (ICD-10 - F51.01) 06/14/2024 Cardiomyopathy, unspecified (ICD-10 - I42.9) Legal [...] Support - Assessment: Patient is working with [employer] [place] for Medicaid application, despite concerns about eligibility. [...] be confirmed. - Consider referral to a sales representative printing or director of cardiology for further evaluation and management. Bipolar Disorder [...] Healthcare Access - Assessment: The patient has [employer] insurance and is concerned about potential changes in network coverage, specifically mentioning [employer] potentially going out of network. - Plan: [...] this time. 12/12/2024 Encounter for screening for depression (ICD-10 - Z13.31) 10/17/2024 Alzheimer's disease with late onset (ICD-10 - G30.1) 11/14/2024 Encounter for screening for cardiovascular disorders (ICD-10 - Z13.6) 11/14/2024 Bipolar disorder, current episode depressed, mild (ICD-10 - F31.31) Bipolar Disorder: Care Instructions material was published 10/17/2024 CAM[place] (generalized anxiety disorder) (ICD-10 - F41.1) 09/19/2024 Primary insomnia (ICD-10 - F51.01) Sciatica [...] be confirmed. - Consider referral to a sales representative printing or director of cardiology for further evaluation and management. Bipolar Disorder [...] Healthcare Access - Assessment: The patient has [employer] insurance and is concerned about potential changes in network coverage, specifically mentioning [employer] potentially going out of network. - Plan: [...] devices or physical therapy if needed. 06/14/2024 Primary insomnia (ICD-10 - F51.01) [...] Support - Assessment: Patient is working with [employer] for Medicaid application, despite concerns about eligibility. [...] progress and address any new concerns. 01/09/2025 Alzheimer's disease with late onset (ICD-10 [...] clonazepam. - Assess progress in one month. 05/12/2025 CAM[place] (generalized anxiety disorder) (ICD-10 - F41.1) 12/12/2024 Bipolar disorder, current episode depressed, mild (ICD-10 - F31.31) 12/12/2024 Primary insomnia (ICD-10 - F51.01) 05/12/2025 Cerebral infarction, unspecified (ICD-10 - I63.9) Recent stroke confirmed by patient history and multiple hospital admissions. MRI performed, results not communicated to patient. Three hospitalizations , including a four-day stay at [facility]. 02/13/2025 CAMDEN (generalized anxiety disorder) (ICD-10 - [...] (generalized anxiety disorder) (ICD-10 - F41.1) 03/12/2025 Heart failure, unspecified (ICD-10 - I50.9) Patient reports shortness of breath related to congestive heart failure. Recent check-up indicated heart condition was fine. Patient remains worried about health. - Monitor symptoms of shortness of breath. - Consider medication adjustments if symptoms persist. 06/14/2024 Alzheimer's disease with late onset (ICD-10 [...] progress and address any new concerns. 07/15/2024 Alzheimer's disease with late onset (ICD-10 [...] be confirmed. - Consider referral to a sales representative printing or director of cardiology for further evaluation and management. Bipolar Disorder [...] Healthcare Access - Assessment: The patient has [employer] insurance and is concerned about potential changes in network coverage, specifically mentioning [employer] potentially going out of network. - Plan: [...] symptoms or concerns during this time. 10/17/2024 Hyperlipidemia (ICD-10 - E78.5) 11/14/2024 Primary insomnia (ICD-10 - F51.01) 11/14/2024 Alzheimer's disease with late onset (ICD-10 - G30.1) 10/17/2024 Hypothyroidism (ICD-10 - E03.9) 09/19/2024 CAMDEN [...] be confirmed. - Consider referral to a sales representative printing or director of cardiology for further evaluation and management. Bipolar Disorder [...] Healthcare Access - Assessment: The patient has [employer] insurance and is concerned about potential changes in network coverage, specifically mentioning [employer] potentially going out of network. - Plan: [...] Support - Assessment: Patient is working with [employer] for Medicaid application, despite concerns about eligibility. [...] screening for cardiovascular disorders (ICD-10 - Z13.6) 05/12/2025 Muscle weakness (generalized) (ICD-10 - M62.81) Patient reports significant weakness in legs and difficulty walking. Spends most of her time in a wheelchair. 12/12/2024 Alzheimer's disease with late onset (ICD-10 - G30.1) 05/12/2025 Abnormal weight loss (ICD-10 - R63.4) Patient reports significant weight loss and difficulty eating. Expressed frustration about not being able to obtain a scale. 01/09/2025 Encounter for screening for cardiovascular disorders [...] Support - Assessment: Patient is working with [employer] for Medicaid application, despite concerns about eligibility. [...] be confirmed. - Consider referral to a sales representative printing or director of cardiology for further evaluation and management. Bipolar Disorder [...] Healthcare Access - Assessment: The patient has [employer] insurance and is concerned about potential changes in network coverage, specifically mentioning [employer] potentially going out of network. - Plan: [...] symptoms or concerns during this time. 12/12/2024 CAM[place] (generalized anxiety disorder) (ICD-10 - F41.1) 11/14/2024 CAM[place] (generalized anxiety disorder) (ICD-10 - F41.1) 11/14/2024 Hyperlipidemia (ICD-10 - E78.5) 12/12/2024 Hyperlipidemia (ICD-10 - E78.5) 06/14/2024 Left bundle branch block (LBBB) (ICD-10 [...] Support - Assessment: Patient is working with [employer] for Medicaid application, despite concerns about eligibility. [...] be confirmed. - Consider referral to a sales representative printing or director of cardiology for further evaluation and management. Bipolar Disorder [...] Healthcare Access - Assessment: The patient has [employer] insurance and is concerned about potential changes in network coverage, specifically mentioning [employer] potentially going out of network. - Plan: [...] be confirmed. - Consider referral to a sales representative printing or director of cardiology for further evaluation and management. Bipolar Disorder [...] Healthcare Access - Assessment: The patient has [employer] insurance and is concerned about potential changes in network coverage, specifically mentioning [employer] potentially going out of network. - Plan: [...] Support - Assessment: Patient is working with [employer] for Medicaid application, despite concerns about eligibility. [...] E03.9) 11/14/2024 Hypothyroidism (ICD-10 - E03.9) 09/19/2024 Other referral to the local chapter [...] to Furosemide (Lasix) issue. Upcoming appointment with picker/puller on the . - Plan: - Monitor [...] member for money and food. Power of flame hardening machine operator is with brother Mauricio Pacheco. - Plan: - Encourage patient to discuss financial concerns with power of flame hardening machine operator and establish boundaries with family members. Bipolar [...] cardiac device monitoring - Follow up with sales representative printing as scheduled in February Gambling Urges Assessment: [...] without a caregiver for 2 months. A chemical sales representative from an aging services organization has contacted [employer] to address this issue. Plan: - Follow up on the status of caregiver assignment through [employer] Disclaimer: This note has been transcribed using speech recognition software and serves as a reflection of the patient's visit. While efforts have been made to ensure accuracy, there may be errors, including pipe fitter fire sprinkler systems inaccuracies and misspellings of medication names. This document should not be considered a verbatim record, and any discrepancies should be verified with the provider. 01/09/2025 Other Medication Management and Access - Assessment: Patient reports discontinuation of Entresto due to loss of sample access and high icz-pc-hbflbd costs (approximately $600/month). This has led to [...] or reduced-cost medications. - Follow up with sales representative printing (Dr. Rodriguez) regarding medication changes and current [...] and daily functioning. - Consider referral to marriage and family social worker for additional support if needed. [...] without using your hands.3. Strength Training Exercises- Oya-rq-cbfhc: rise from a chair repeatedly.- Wall push-ups: [...] Next Appt Details Provider Name:Patric Amaya , 06/09/2025 02:30:00 PM, [facility], [address], [address], Provider Name:Patric Amaya , 06/11/2025 01:00:00 PM, [address], [address], [address], Provider Name:Patric Marley Jose Luis , 07/09/2025 01:00:00 PM, [address], [facility] [address], [place], [address], Insurance Providers Payer Name Payer Address Payer Phone Subscriber Number Group Number Insured Name Patient Relationship to Insured Coverage Start Date Coverage End Date [facility] Medicare Replacement/ Advantage - Ppo [address] [address] [place] [address] [id number] JAILENE MARTINO Self - patient is the [...] depres sed, mild Insomnia History of pneumonia Stroke Surgical History Surgery Date(Month/Year) Implantation of cardiac defibrillator le joey ([id number]) 04/12/2021 Hospitalization History Reason Date(Month/Year) Fall and pneumonia, a week ago monday Stroke, silvana or, date not specified Stroke, silvana or, four-day admission Stroke, silvana or, two additional admi ssions
--- OUTSIDE RECORDS SUMMARY | 2025-05-20 14:31 | XMS_ITS | Encounter Summary ---
Author Organization [facility] Healthcare Address [address] [place] [address] Care Team Providers Care Body Artist Name Role Phone Bandar Gaffney MD Unavailable [phone] Dillan Reddy MD Primary Care Provide r Encounter Details Date Type Department Care Team (Late st Contact Info) Description 12/04/2024 Telephone [facility] Cardiology [address] [facility] [address] [facility] [address] [place] [address] Samy Ceja MD [address] [facility] [address] [place] [address] Social History Tobacco Use Types [...] often do you attend chur ch or hindu services? 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
--- OUTSIDE RECORDS SUMMARY | 2025-05-20 14:32 | XMS_ITS | Clinical Summary ---
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
--- OUTSIDE RECORDS SUMMARY | 2025-05-20 14:32 | XMS_ITS | Encounter Summary ---
Author Organization [facility] Healthcare Address [address] [place] [address] Care Team Providers Care Truck Engine Assembler Name Role Phone Lana Tovar MD Primary Care Provider + Bandar Gaffney MD Unavailable [phone] Dillan Reddy MD Primary Care Provide r Encounter Details Date Type Department Care Team (Late st Contact Info) Description 03/26/2018 Orders Only [facility] Health Information Management [address] [place] [id number] Scanning, Provider Social History Tobacco Use Types Packs/Day Years Used Date Smoking Tobacco: Never Smokeless Tobacco: Never Alcohol Use Standard Drinks/Week Comments No 0 (1 standard drink = 0.6 oz pur e alcohol) Comments Unknown Sex and Gender Information Value Date Recorded Sex Assigned at Not on file 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
--- OUTSIDE RECORDS SUMMARY | 2025-05-20 14:32 | XMS_ITS | Encounter Summary ---
Author Organization [facility] Healthcare Address [address] [place] [address] Care Team Providers Care Tax Accountant Name Role Phone Lana Tovar MD Primary Care Provider + Bandar Gaffney MD Unavailable [phone] Dillan Reddy MD Primary Care Provide r Encounter Details Date Type Department Care Team (Late st Contact Info) Description 01/17/2018 Orders Only [facility] Management [address] [place] [id number] Scanning, Provider Social History Tobacco Use Types Packs/Day Years Used Date Smoking Tobacco: Never Alcohol Use Standard Drinks/Week Comments No 0 (1 standard drink = 0.6 oz pur e alcohol) Comments Unknown Sex and Gender Information Value Date Recorded Sex Assigned at Not on file 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
--- NOTE | 2025-05-20 16:01 | ADMGEN ---
This patient, Yi Martino, was admitted to IMU Room 212-01 at 1320. Patient/family oriented to hospital policies and general routines including ID bracelet, bed and alarms, visiting hours, pain management, procedures, bathroom and other care routines, personal items, smoking policy, room service/diet, and visiting hours. Information on how to activate the Rapid Response Team has been discussed. Patient/Family are encouraged to report perceived risks to care and to ask questions if they do not understand what they are told or what they should do.
--- NOTE | 2025-05-20 16:02 | PM.IMHP ---
H&P: HPI History of Present Illness Date/Time: 05/20/25 16:02 Chief Complaint: SOB Narrative: 79 yo Female with PMH of CHF s/p Pacemaker and Defibrillator who presented to the ER on account of SOB. Patient noted symptoms started yesterday, endorsed Orthopnea and PND, denies leg swelling, no fever, vomiting, abd pain or diarrhea. ER eval notable for BP 144/55, T 98.2, AK 64, RR 18 and saturating (8% on 2 liters oxygen Review of Systems Review of Systems: All other systems reviewed negative except as noted in HPI above. [facility] Past Medical History Medical History Chronic anticoagulation Transient ischemic attack Gastroesophageal reflux disease Chronic kidney disease Depression with anxiety Deep venous thrombosis Heart failure with reduced ejection fraction EF was 20 to 25% in March 2021. Left bundle branch block Hyperlipidemia Hypertension Hypothyroidism Cardiomyopathy Bipolar disorder Surgical History Surgical History History of colon resection History of bilateral knee arthroplasty History of repair of left rotator cuff History of bladder suspension procedure History of tonsillectomy History of cardiac catheterization History of partial hysterectomy History of orthopedic surgery Family History Family History Father Hypertension Cerebrovascular accident Mother Family history of diabetes mellitus in first degree relative Family history of lung disease Family history of coronary artery disease Sibling Family history of diabetes mellitus in first degree relative Cardiomyopathy Son Family history of mental disorder Other Family history of alcoholism Family history of arthritis Family history of gout Social History Social History Social History: Surrogate medical decision maker: Man Linton, sibling. Code status: Full code. Smoking status: Never smoker Second hand tobacco smoke exposure: No Alcohol intake: never Substance use: never Substance use type: does not use Do You Feel Safe in your Home?: Yes Lack of Transportation: No Lack of Food: Never True Current Housing: I Have Housing Concerned About Future Housing: No Difficulty Paying Gas/Electric Bills: No Difficulty Paying for Meds: No Currently Unemployed: No Education: High School Diploma/GED Difficulty w/ Childcare or Family Care: No Living arrangements: with roommate(s) Additional living arrangements comments: . Has 1 child. Additional occupation/education comments: Retired from the [employer]. Spiritual care concerns: No Meds Home Medications and Allergies Home Medications ?Medication ?Instructions ?Recorded ?Confirmed ?Type trazodone 150 mg tablet 150 mg PO HS 03/22/21 05/20/25 History venlafaxine 37.5 mg 37.5 mg PO DAILY 08/22/22 05/20/25 History capsule,extended release 24 hr (Effexor XR) rosuvastatin 40 mg tablet 40 mg PO DAILY 12/27/23 05/20/25 History amiodarone 200 mg tablet 200 mg PO DAILY 01/02/24 05/20/25 History clonazepam 0.5 mg tablet 0.5 mg PO TID 01/02/24 05/20/25 History levothyroxine 150 mcg tablet 150 mcg PO DAILY 01/02/24 05/20/25 History carvedilol 12.5 mg tablet 25 mg PO DAILY 12/24/24 05/20/25 History cyanocobalamin (vitamin B-12) 1,000 mcg subcut MONTHLY 03/25/25 05/20/25 History 1,000 mcg/mL injection solution donepezil 10 mg tablet 10 mg PO HS 03/25/25 05/20/25 History famotidine 20 mg tablet 20 mg PO Q12H PRN reflux 03/25/25 05/20/25 History furosemide 40 mg tablet 40 mg PO 3XW 03/25/25 05/20/25 History ondansetron 4 mg disintegrating 8 mg PO Q12H PRN nausea and 03/25/25 05/20/25 History tablet vomiting spironolactone 25 mg tablet 25 mg PO DAILY 03/25/25 05/20/25 History warfarin 3 mg tablet 2 mg (0.6667 x 3 mg) PO DAILY #30 03/31/25 05/20/25 Rx tabs acetaminophen 650 mg 650 mg PO Q8H PRN pain 05/20/25 05/20/25 History tablet,extended release (8 Hour Pain Reliever) cetirizine 5 mg tablet 5 mg PO DAILY 05/20/25 05/20/25 History Allergies Allergy/AdvReac Type Severity Reaction Status Date / Time codeine Allergy Unknown Unknown Verified 05/07/25 12:34 hydroxyzine Allergy Unknown Unknown Verified 05/07/25 12:34 lorazepam Allergy Unknown Unknown Verified 05/07/25 12:34 tramadol Allergy Unknown Unknown Verified 05/07/25 12:34 NSAIDS (Non-Steroidal AdvReac Unknown Nausea Verified 05/07/25 12:34 Anti-Inflamma sumatriptan AdvReac Unknown FELT Verified 05/07/25 12:34 HORRIBLE Vital Signs Vital Signs - 24 hr 05/20/25 05:19 05/20/25 05:32 05/20/25 06:30 Temperature 98.7 F Pulse Rate 82 72 79 Respiratory Rate 30 H 20 18 Blood Pressure 152/99 H 119/82 Pulse Oximetry 100 100 Oxygen Delivery Simple Face Mask Oxygen Flow Rate 10 05/20/25 06:31 05/20/25 06:37 05/20/25 07:20 Temperature Pulse Rate 74 68 70 Respiratory Rate 23 H 20 20 Blood Pressure 147/95 H 132/65 Pulse Oximetry 94 Oxygen Delivery Oxygen Flow Rate 05/20/25 07:26 05/20/25 08:35 05/20/25 10:13 Temperature Pulse Rate 71 Respiratory Rate 26 H Blood Pressure 140/95 H Pulse Oximetry 94 91 94 Oxygen Delivery Room Air Nasal Cannula Oxygen Flow Rate 1.5 05/20/25 13:30 05/20/25 14:00 05/20/25 15:55 Temperature 98 F 98.2 F Pulse Rate 75 61 64 Respiratory Rate 24 H 18 Blood Pressure 138/62 144/55 H Pulse Oximetry 95 98 Oxygen Delivery Oxygen Flow Rate Exam Narrative: General: alert and comfortable Eyes: EOMI, PERRLA ENNT External ears normal, Neck is supple, no masses, Respiratory systems: Clear to auscultation Cardiovascular S1, S2, normal rhythm, no murmur, rub, or gallop; no thrill or palpable murmurs on palpation. Gastrointestinal: soft, non-tender, and non-distended abdomen with no masses; BS present Skin: no rash, lesions, ulcerations, subcutaneous nodules or induration Musculoskeletal: no abnormality and no tenderness, normal ROM Neurologic: Alert and oriented x3, non focal Mental Status Exam: normal affect H&P: Results Labs Labs: Short CBC 05/20/25 Range/Units 06:22 WBC 16.6 H (4.5-10.0) K/mm3 Hgb 12.9 (12.0-15.0) g/dL Hct 42.2 (37.0-47.0) % Plt Count 262 (150-375) k/mm3 BMP 05/20/25 06:22 Sodium 138 Potassium 4.3 Chloride 103 Carbon Dioxide 26 BUN 12 Creatinine 1.03 H Glucose 125 H Calcium 8.6 Cardiac Enzymes 05/20/25 05/20/25 05/20/25 Range/Units 06:22 09:15 12:36 Troponin I 0.050 H* 0.056 H* 0.043 H* D (0.000-0.034) ng/mL Liver Function 05/20/25 Range/Units 06:22 Total Bilirubin 0.5 (0.2-1.3) mg/dL AST 31 (14-36) U/L ALT 22 (6-35) U/L Alkaline Phosphatase 84 (38-126) U/L Albumin 4.0 (3.5-5.1) g/dL Assessment and Plan Assessment and plan (1) Acute hypoxemic respiratory failure: Code(s): J96.01 - Acute respiratory failure with hypoxia Status: Acute (2) Pneumonia: Code(s): J18.9 - Pneumonia, unspecified organism Status: Acute Plan Acute hypoxemic respiratory failure On 2 L oxygen Titrate oxygen with clinical course. Pneumonia Chest x-ray showed a left lower lobe infiltrates Blood culture, sputum culture Continue Rocephin and doxycycline CHF exacerbation No pulm edema, on CXR continue home medications HTN titrate home meds with clinical course Hypothyroidism Continue home emds Bipolar disorder continue home meds Afib Warfarin and Amiodarone DVT prophylaxis on Warfarin Full code Full code
[2025-05-20] MEDS: clonazePAM (*CRX) 0.5 MG TABLET PO (17:02)
[2025-05-20] MEDS: AMIODARONE HCL 200 MG TABLET PO (17:02)
[2025-05-20] MEDS: SPIRONOLACTONE 25 MG TABLET PO (17:02)
[2025-05-20] MEDS: CENTRAL LINE FLUSH 10 ML IV PUSH ×2 (17:02→20:31)
[2025-05-20] MEDS: DONEPEZIL HCL 10 MG TABLET PO (20:30)
[2025-05-20 22:04] LABS: MRSA (PCR) NOT DETECTED (NOT DETECTE)
[2025-05-21] VITALS (19 sets, daily range): BP systolic 105–139; BP diastolic 46–62; PULSE 59–63; RESP 14–20; TEMP 36.5–36.9; O2SAT 91–99
[2025-05-21] MEDS: LEVOTHYROXINE SODIUM 150 MCG TABLET PO (05:32)
[2025-05-21] MEDS: CENTRAL LINE FLUSH 10 ML IV PUSH ×3 (05:34→20:32)
[2025-05-21 06:01] LABS: INR 2.8; Prothrombin Time 28.3 Seconds (11.1-14.7)
[2025-05-21] MEDS: clonazePAM (*CRX) 0.5 MG TABLET PO ×3 (08:25→16:59)
[2025-05-21] MEDS: DOXYCYCLINE IV 100 MG in SODIUM CHLORIDE 0.9% IV 100 ML IVPB (08:26)
[2025-05-21] MEDS: cefTRIAXone 2 GM in SODIUM CHLORIDE 0.9% IV 100 ML 200 ML IVPB (08:27)
[2025-05-21] MEDS: FUROSEMIDE 40 MG TABLET PO (08:29)
--- NOTE | 2025-05-21 09:10 | PM.IMPN ---
Progress Note: A&P Assessment and Plan (1) CHF (congestive heart failure): Qualifiers: Heart failure chronicity: acute on chronic Heart failure type: combined systolic and diastolic Qualified Code(s): I50.43 - Acute on chronic combined systolic (congestive) and diastolic (congestive) heart failure Code(s): I50.9 - Heart failure, unspecified Status: Acute (2) Acute non-ST elevation myocardial infarction (NSTEMI): Code(s): I21.4 - Non-ST elevation (NSTEMI) myocardial infarction Status: Acute (3) Chronic kidney disease: Code(s): N18.9 - Chronic kidney disease, unspecified Status: Acute (4) Acute hypoxemic respiratory failure: Code(s): J96.01 - Acute respiratory failure with hypoxia Status: Acute (5) Community acquired pneumonia: Qualifiers: Laterality: right Lung location: upper lobe of lung Qualified Code(s): J18.9 - Pneumonia, unspecified organism Code(s): J18.9 - Pneumonia, unspecified organism Status: Acute Plan 79-year-old female presenting from home with shortness of breath. 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 Ceja), AFib on warfarin. She has had acute onset the shortness of breath. She reports this happens when she has a CHF exacerbation. She took 40 mg of Lasix and call EMS. EMS gave her a DuoNeb with improvement in her symptoms. She has had a cough productive of clear sputum. Saturating low on room air requiring 2 L nasal cannula. Admitted on 05/21/2025 diagnosed with acute hypoxic respiratory failure, community-acquired pneumonia. ----- Acute hypoxic respiratory failure -likely due to pneumonia, placed on 2 L nasal cannula. Deescalate per protocol -check quad viral screen -patient unsure if she has COPD, never a smoker. No wheezing, continue to monitor. Aspiration pneumonia -patient placed on ceftriaxone and azithromycin on admission. As the patient multiple times if she had choked at home, she has a history of dysphagia. She said no, nurse later told me the patient reports she has been choking. She is a poor historian. She has right lower lobe and right middle lobe bronchi. Chest x-ray on admission 05/20/2025 demonstrating small airspace disease of the left lower lobe. -switch antibiotics from ceftriaxone and doxycycline to Unasyn. -no sputum to culture -check Legionella mycoplasma, pneumococcal antigen -speech therapy evaluation for dysphagia -aspiration precautions. Sepsis without shock present on admission -WBC [id number] on admission. Continue to trend. No labs drawn for this morning, stat labs ordered. -follow-up on blood cultures Systolic/diastolic heart failure with pacemaker/defibrillator -she appears euvolemic. Continue AIR TRAFFIC CONTROL EQUIPMENT REPAIRER furosemide Monday. -continue AIR TRAFFIC CONTROL EQUIPMENT REPAIRER spironolactone 25 mg p.o. q.day. -continue AIR TRAFFIC CONTROL EQUIPMENT REPAIRER Coreg 25 mg p.o. daily. -daily weights, intake/output. Elevated troponin -present on admission, peaked. Likely due to hypoxia. No chest pain. Demand ischemia/type 2 GA. AFib on warfarin -currently paced rhythm. -continue telemetry until pneumonia is resolved. INR on admission 2.8. Continue AIR TRAFFIC CONTROL EQUIPMENT REPAIRER Coumadin 2 mg p.o. at 5:00 p.m., daily INR. CKD stage III -her baseline is around 1.1-1.2. Stable, Continue to monitor. She complains of suprapubic pain: Check urinalysis Essential hypertension: At goal, continue to monitor with current regimen Hyperlipidemia: Continue AIR TRAFFIC CONTROL EQUIPMENT REPAIRER rosuvastatin 40 mg p.o. q.day Depression with anxiety: Continue AIR TRAFFIC CONTROL EQUIPMENT REPAIRER venlafaxine, trazodone, Klonopin, donepezil Hypothyroidism: Continue AIR TRAFFIC CONTROL EQUIPMENT REPAIRER levothyroxine 150 mcg p.o. q.day GERD: Continue AIR TRAFFIC CONTROL EQUIPMENT REPAIRER famotidine p.r.n.. ----- Patient lives at home with a friend. Uses a walker at baseline. She wishes to be full code. So PT/OT for weakness. Consult speech therapy for dysphagia and aspiration pneumonia. Saline lock IV. Heart healthy diet. Fall precautions, ambulate with assistance. Transfer to medical floor telemetry. Stable. Subjective Date/time seen: 05/21/25 09:10 Interval history: No major acute overnight events. Patient reports feeling fine but when prompted to provide more detail she says she is still short of breath. She is not a great historian. Feels about 50% better only, cough but no sputum production. Reports pain the suprapubic to left lower quadrant area. Denies pain on urination. Review of Systems Review of Systems: All systems reviewed & are unremarkable except as noted in HPI and below (Subjective) Exam Const: General: comfortable and no acute distress Other: A&O x3 Eyes: Pupils: Equal, round and reactive pupils present Neck: Neck: supple Resp: Effort & Inspection: normal respiratory effort Other: Rhonchi right lower lobe, right middle lobe Cardio: Rate: regular rate Rhythm: regular rhythm Heart sounds: no murmurs GI: Inspection: non-distended GI Palp: Yes Soft to palpation : Other: Suprapubic tenderness, fullness. Neuro: Motor exam (neuro): 5/5 motor strength present throughout Extrem: General: no edema Objective Data Vital Signs Vital Signs: Vital Signs - 24 hr 05/20/25 10:13 05/20/25 13:30 05/20/25 14:00 Temperature 98 F Pulse Rate 75 61 Respiratory Rate 24 H Blood Pressure 138/62 Pulse Oximetry 94 95 Oxygen Delivery Nasal Cannula Oxygen Flow Rate 1.5 Fraction of Inspired Oxygen 05/20/25 15:55 05/20/25 16:00 05/20/25 16:00 Temperature 98.2 F Pulse Rate 64 60 Respiratory Rate 18 Blood Pressure 144/55 H Pulse Oximetry 98 94 Oxygen Delivery Nasal Cannula Oxygen Flow Rate 2 Fraction of Inspired Oxygen 05/20/25 18:00 05/20/25 20:00 05/20/25 20:00 Temperature Pulse Rate 60 60 Respiratory Rate Blood Pressure Pulse Oximetry 95 Oxygen Delivery Nasal Cannula Oxygen Flow Rate 2 Fraction of Inspired Oxygen 05/20/25 20:20 05/20/25 20:33 05/20/25 22:00 Temperature 98.5 F Pulse Rate 60 60 60 Respiratory Rate 20 16 Blood Pressure 133/52 L Pulse Oximetry 95 94 Oxygen Delivery Nasal Cannula Oxygen Flow Rate 2 Fraction of Inspired Oxygen 28 05/21/25 00:00 05/21/25 00:00 05/21/25 00:16 Temperature 98.2 F Pulse Rate 60 61 Respiratory Rate 20 Blood Pressure 122/51 L Pulse Oximetry 93 94 Oxygen Delivery Nasal Cannula Oxygen Flow Rate 2 Fraction of Inspired Oxygen 05/21/25 02:00 05/21/25 04:00 05/21/25 04:00 Temperature Pulse Rate 60 61 Respiratory Rate Blood Pressure Pulse Oximetry 91 Oxygen Delivery Nasal Cannula Oxygen Flow Rate 2 Fraction of Inspired Oxygen 05/21/25 04:11 05/21/25 06:00 05/21/25 07:30 Temperature 98.1 F 98.5 F Pulse Rate 60 60 59 L Respiratory Rate 18 14 Blood Pressure 105/50 L 114/46 L Pulse Oximetry 93 98 Oxygen Delivery Oxygen Flow Rate Fraction of Inspired Oxygen 05/21/25 08:25 Temperature Pulse Rate 61 Respiratory Rate Blood Pressure Pulse Oximetry Oxygen Delivery Oxygen Flow Rate Fraction of Inspired Oxygen Intake/Output Intake/Output: Intake & Output 05/18/25 05/19/25 05/20/25 05/21/25 23:59 23:59 23:59 23:59 Intake Total 540 350 Output Total 900 300 Balance -360 50 Meds/Results Medications: Active Medications Generic Name Dose Route Start Last Admin Trade Name Freq PRN Reason Stop Dose Admin Amiodarone HCl 200 mg 05/20/25 16:05 05/20/25 17:02 Amiodarone Hcl 200 Mg Tablet PO 200 mg DAILY STAN Administration Carvedilol 25 mg 05/20/25 16:05 05/21/25 08:25 Carvedilol 12.5 Mg Tablet PO 25 mg DAILY STAN Administration Clonazepam 0.5 mg 05/20/25 17:00 05/21/25 08:25 Clonazepam (*Crx) 0.5 Mg Tablet PO 0.5 mg TID STAN Administration Donepezil HCl 10 mg 05/20/25 21:00 05/20/25 20:30 Donepezil Hcl 10 Mg Tablet PO 10 mg HS STAN Administration Famotidine 20 mg 05/21/25 09:09 Famotidine 20 Mg Tablet PO Q12H PRN Reflux Furosemide 40 mg 05/21/25 09:00 05/21/25 08:29 Furosemide 40 Mg Tablet PO 40 mg [id number] STAN Administration Ceftriaxone Sodium 2 gm/ 100 mls @ 200 mls/hr 05/21/25 09:00 05/21/25 08:27 Sodium Chloride IVPB 200 mls/hr Q24H STAN Administration Doxycycline Hyclate 100 mg/ 100 mls @ 100 mls/hr 05/20/25 23:00 05/21/25 08:26 Sodium Chloride IVPB 100 mls/hr Q12HR [facility] Administration Levothyroxine Sodium 150 mcg 05/21/25 06:30 05/21/25 05:32 Levothyroxine Sodium 150 Mcg Tablet PO 150 mcg DAILY@0630 [facility] Administration Non-Formulary Medication 5 mg 05/22/25 09:00 Cetirizine PO 06/21/25 08:59 DAILY [facility] Sodium Chloride 10 ml 05/20/25 14:00 05/21/25 05:34 Central Line Flush IV PUSH 10 ml Q8HR STAN Administration Sodium Chloride 10 ml 05/20/25 12:11 Central Line Flush IV PUSH PRN PRN with TPN bag changes Sodium Chloride 20 ml 05/20/25 12:11 Central Line Flush IV PUSH PRN PRN after blood draws Spironolactone 25 mg 05/20/25 16:05 05/20/25 17:02 Spironolactone 25 Mg Tablet PO 25 mg DAILY [facility] Administration Warfarin Sodium 2 mg 05/21/25 17:00 Warfarin (*Pbkc) 2 Mg Tablet PO DAILY@1700 [facility] Radiology Results: ITS Impressions Chest X-Ray 05/20/25 06:00 IMPRESSION: 1. Small airspace disease left lower lobe. Labs Labs: Laboratory Results - last 24 hr 05/20/25 05/20/25 05/20/25 09:15 12:36 16:15 PT INR Troponin I 0.056 H* 0.043 H* D Nasal MRSA (PCR) Not detected 05/21/25 05:27 PT 28.3 H INR 2.8 Troponin I Nasal MRSA (PCR)
[2025-05-21] MEDS: ROSUVASTATIN 20 MG TABLET 40 MG PO (09:37)
[2025-05-21] MEDS: VENLAFAXINE HCL XR 37.5 MG CAP PO (09:38)
[2025-05-21 11:14] LABS: Hematocrit 35.6 % (37.0-47.0); Hemoglobin 10.7 g/dL (12.0-15.0); Immature Granulocyte Percent A 0.6 % (0-0.5); Lymphocytes Absolute Auto 1.56 K/mm3 (0.9-3.2); Mean Corpuscular HGB Conc 30.1 g/dl (32-36); Mean Corpuscular Hemoglobin 30.7 pg (26-34); Mean Corpuscular Volume 102.0 fl (80-100); Nucleated Red Blood Cells Absolute Auto 0.000 K/mm3 (0.0-0.012); Nucleated Red Blood Cells Perc 0.0 % (0.0-0.2); Platelet Count Result 225 k/mm3 (150-375); Red Blood Count 3.49 M/mm3 (4.2-5.4); White Blood Count 10.7 K/mm3 (4.5-10.0)
[2025-05-21 11:31] LABS: Anion Gap 6 mmol/L (4-12); Blood Urea Nitrogen 19 mg/dL (7-17); Calcium 8.3 mg/dL (8.4-10.2); Carbon Dioxide 32 mmol/L (22-30); Chloride 100 mmol/L (98-107); Estimated CRCL calculation 36 ml/min; Estimated Glomerular Filt Rate 53; Glucose 143 mg/dL (65-110); Magnesium 2.0 mg/dL (1.6-2.3); Potassium 3.6 mmol/L (3.4-5.0); Sodium 138 mmol/L (137-145)
[2025-05-21 11:51] LABS: Influenza A QL RT-PCR Negative (Negative); Influenza B QL RT-PCR Negative (Negative); RSV RNA, RT-PCR Negative (Negative); SARS-CoV-2 RNA PCR Negative (Negative)
[2025-05-21] MEDS: AMPICILLIN SODIUM/SULBACTAM 3 GM in SODIUM CHLORIDE 0.9% IV 100 ML 200 ML IVPB ×3 (11:51→23:40)
[2025-05-21] MEDS: AMIODARONE HCL 200 MG TABLET PO (11:52)
[2025-05-21] MEDS: SPIRONOLACTONE 25 MG TABLET PO (11:52)
[2025-05-21 12:26] LABS: Add Urine Microscopic? YES; Appearance Urine Clear (Clear); Glucose Urine UA Negative (Negative); Leukocyte Esterase Ur 1+ LEU/UL (Negative); Need Manual Microscopic Reviewed; Nitrate Urine Negative (Negative); Non Pathogenic Casts 0-2; Specific Grav Ur 1.006 (1.001-1.035)
--- NOTE | 2025-05-21 16:10 | PCSTNOTE ---
Please refer to the Modified Barium Swallow Evaluation in the EMR. The patient is a 79 year old female referred for a MBS study following a BSE with noted throat clearing and repeat swallows with all consistencies presented. The patient was positioned upright and administered the following consistencies: 5cc/thin liquid barium, 5cc mildly thick liquid barium, cup trials thin liquid barium, cup trials mildly thick liquid barium, pudding mixed with barium paste, and fruit cocktail coated with barium paste. Oral Stage: The patient is edentulous but states she eats soft solids at home. Cracker trials were not attempted due to difficulty with oral preparation with soft solids. When presented thin and mildly thick consistencies oral preparation and transit was timely. With pudding and soft solid trials oral preparation of the bolus and transit were delayed with noted tongue pumping. Pharyngeal Stage: When presented 5cc/tsp thin liquid, 5cc/tsp mildly thick liquid, and cup trials thin and mildly thick liquid swallow initiation was timely with mild residual in the valleculae secondary to reduced epiglottic inversion and reduced lingual pressure. Trace/flash laryngeal penetration was viewed with large drinks thin liquid barium secondary to residual remaining within the valleculae from prior swallows and reduced laryngeal elevation. 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 No aspiration or penetration was viewed with both consistencies and compensatory techniques for an effortful swallow and alternating bites and drinks cleared some residual within the valleculae. However, mild to moderate residual would remain without multiple swallows for each bite placing the patient at risk of possible aspiration. Please see Radiologist report regarding backflow noted with pudding and soft solids due to cervical osteophytes. Recommend: 1. Puree Diet / Level 4 2. Thin Liquid / Level 0 3. Alternate bites and drinks 4. Small bites and drinks 5. Repeat swallow each bite and drink 6. Upright all meals and 30 minutes after meals 7. Medication crushed in applesauce 8. Frequent Observation 9. Speech services to address following exercises Eunice, Alexa, Effortful Swallow, Tongue Base Retraction, and CTAR.
--- NOTE | 2025-05-21 16:34 | PC.NURSE ---
On 05/21/25, the student, Aubrie, provided care and completed [facility] documentation on this patient. I have reviewed the student's documentation and agree with the findings.
[2025-05-21] MEDS: WARFARIN (*PBKC) 2 MG TABLET PO (16:59)
[2025-05-21] MEDS: DONEPEZIL HCL 10 MG TABLET PO (20:32)
[2025-05-22] VITALS (14 sets, daily range): BP systolic 131; BP diastolic 60; PULSE 59–91; RESP 16–20; TEMP 36.4–36.7; O2SAT 92–100
[2025-05-22] MEDS: ACETAMINOPHEN 325 MG TABLET 650 MG PO ×2 (00:07→09:21)
[2025-05-22] MEDS: AMPICILLIN SODIUM/SULBACTAM 3 GM in SODIUM CHLORIDE 0.9% IV 100 ML 200 ML IVPB ×4 (05:33→23:25)
[2025-05-22] MEDS: CENTRAL LINE FLUSH 20 ML IV PUSH (05:36)
[2025-05-22] MEDS: CENTRAL LINE FLUSH 10 ML IV PUSH ×3 (05:37→23:25)
[2025-05-22] MEDS: LEVOTHYROXINE SODIUM 150 MCG TABLET PO (05:38)
[2025-05-22 05:48] LABS: Hematocrit 32.9 % (37.0-47.0); Hemoglobin 10.0 g/dL (12.0-15.0); Immature Granulocyte Percent A 0.3 % (0-0.5); Lymphocytes Absolute Auto 1.99 K/mm3 (0.9-3.2); Mean Corpuscular HGB Conc 30.4 g/dl (32-36); Mean Corpuscular Hemoglobin 31.3 pg (26-34); Mean Corpuscular Volume 102.8 fl (80-100); Nucleated Red Blood Cells Absolute Auto 0.000 K/mm3 (0.0-0.012); Nucleated Red Blood Cells Perc 0.0 % (0.0-0.2); Platelet Count Result 206 k/mm3 (150-375); Red Blood Count 3.20 M/mm3 (4.2-5.4); White Blood Count 6.1 K/mm3 (4.5-10.0)
[2025-05-22 06:00] LABS: INR 2.7; Prothrombin Time 28.0 Seconds (11.1-14.7)
[2025-05-22 06:11] LABS: Anion Gap 3 mmol/L (4-12); Blood Urea Nitrogen 19 mg/dL (7-17); Calcium 8.1 mg/dL (8.4-10.2); Carbon Dioxide 34 mmol/L (22-30); Chloride 100 mmol/L (98-107); Estimated CRCL calculation 41 ml/min; Estimated Glomerular Filt Rate 53; Glucose 77 mg/dL (65-110); Magnesium 2.1 mg/dL (1.6-2.3); Potassium 3.1 mmol/L (3.4-5.0); Sodium 137 mmol/L (137-145)
[2025-05-22] MEDS: LORATADINE 10 MG TABLET PO (09:20)
[2025-05-22] MEDS: SPIRONOLACTONE 25 MG TABLET PO (09:20)
[2025-05-22] MEDS: VENLAFAXINE HCL XR 37.5 MG CAP PO (09:20)
[2025-05-22] MEDS: ROSUVASTATIN 20 MG TABLET 40 MG PO (09:20)
[2025-05-22] MEDS: clonazePAM (*CRX) 0.5 MG TABLET PO ×3 (09:20→16:44)
[2025-05-22] MEDS: AMIODARONE HCL 200 MG TABLET PO (09:21)
[2025-05-22] MEDS: POTASSIUM CHLORIDE 20 MEQ ER TABLET 40 MEQ PO (12:19)
--- NOTE | 2025-05-22 15:21 | P.PNIM_ITS ---
Progress Note: A&P Assessment and Plan (1) CHF (congestive heart failure): Qualifiers: Heart failure chronicity: acute on chronic Heart failure type: combined systolic and diastolic Qualified Code(s): I50.43 - Acute on chronic combined systolic (congestive) and diastolic (congestive) heart failure Code(s): I50.9 - Heart failure, unspecified Status: Acute (2) Acute non-ST elevation myocardial infarction (NSTEMI): Code(s): I21.4 - Non-ST elevation (NSTEMI) myocardial infarction Status: Acute (3) Chronic kidney disease: Code(s): N18.9 - Chronic kidney disease, unspecified Status: Acute (4) Acute hypoxemic respiratory failure: Code(s): J96.01 - Acute respiratory failure with hypoxia Status: Acute (5) Community acquired pneumonia: Qualifiers: Laterality: right Lung location: upper lobe of lung Qualified Code(s): J18.9 - Pneumonia, unspecified organism Code(s): J18.9 - Pneumonia, unspecified organism Status: Acute Plan 79-year-old female presenting from home with shortness of breath. She is a fair historian and per chart review has a history of GERD, hypothyroidism, depression with anxiety, bipolar (followed by Dr. 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 Ceja), AFib on warfarin. She has had acute onset the shortness of breath. She reports this happens when she has a CHF exacerbation. She took 40 mg of Lasix and call EMS. EMS gave her a DuoNeb with improvement in her symptoms. She has had a cough productive of clear sputum. Saturating low on room air requiring 2 L nasal cannula. Admitted on 05/21/2025 diagnosed with acute hypoxic respiratory failure, community- acquired pneumonia. ----- Acute hypoxic respiratory failure -likely due to pneumonia, placed on 2 L nasal cannula. Deescalate per protocol -check quad viral screen negative -patient unsure if she has COPD, never a smoker. No wheezing, continue to monitor. -she has been weaned to room air 05/22/2025 Aspiration pneumonia -patient placed on ceftriaxone and azithromycin on admission. Asked the patient multiple times if she had choked at home, she has a history of dysphagia. She said no, nurse later told me the patient reports she has been choking. She is a poor historian. She has right lower lobe and right middle lobe rhonchi. Chest x-ray on admission 05/20/2025 demonstrating small airspace disease of the left lower lobe. -switch antibiotics from ceftriaxone and doxycycline to Unasyn. If continues to be stable, deescalate antibiotics on 05/23/2025 -no sputum to collect -mycoplasma IgM less than 770, strep pneumo and Legionella antigen pending -she has a history of dysphagia which may be related to tardive dyskinesia. She reports her psychiatrist told her this will be the side effect of her antipsychotic medication. She does not want to change at this time. Advised to follow up with Psychiatry on this matter. She also has an appointment with ENT to investigate pooling of mucus drainage. -I reviewed the modified barium swallow on 05/21/2025 and spoke with the speech pathologist. Continue their current recommendations, possible repeat swallow s tudy before discharge. -aspiration precautions. Sepsis without shock present on admission -WBC [id number] on admission. Acute hypoxic respiratory failure, both resolved -follow-up on blood cultures Systolic/diastolic heart failure with pacemaker/defibrillator -she appears euvolemic. Continue [employer]IAISON furosemide Monday. -continue MARK[employer]IAISON spironolactone 25 mg p.o. q.day. -continue MARKET[employer] LIAISON Coreg 25 mg p.o. daily. -daily weights, intake/output. Elevated troponin -present on admission, peaked. Likely due to hypoxia. No chest pain. Demand ischemia/type 2 DE. AFib on warfarin -currently paced rhythm. -continue telemetry until pneumonia is resolved. INR on admission 2.8. Continue MARKETING LIAISON Coumadin 2 mg p.o. at 5:00 p.m., daily INR. CKD stage III -her baseline is around 1.1-1.2. Stable, Continue to monitor. She complains of suprapubic pain/pressure. Urinalysis not indicative of infection. She no longer complains of this. Essential hypertension: At goal, continue to monitor with current regimen Hyperlipidemia: Continue [employer] LIAISON rosuvastatin 40 mg p.o. q.day Depression with anxiety: Continue [employer]IAISON venlafaxine, trazodone, Klonopin, donepezil Hypothyroidism: Continue [employer]IAISON levothyroxine 150 mcg p.o. q.day GERD: Continue [employer]IAISON famotidine p.r.n.. ----- Patient lives at home with a friend. Uses a walker at baseline. She wishes to be full code. Continue PT/OT for weakness. Consult speech therapy for dysphagia and aspiration pneumonia. Saline lock IV. Heart healthy diet. Aspiration precautions Fall precautions, ambulate with assistance. Stable on medical floor. Subjective Date/time seen: 05/22/25 15:21 Interval history: No major acute overnight events. The patient is anxious about swallowing. She does have speech therapy following. She otherwise hurts shortness of breath has improved. She has occasional dry cough Review of Systems Review of Systems: All systems reviewed & are unremarkable except as noted in HPI and below (Subjective) Exam Const: General: comfortable and no acute distress Other: A&O x3 Eyes: Pupils: Equal, round and reactive pupils present Neck: Neck: supple Resp: Effort & Inspection: normal respiratory effort Other: Rhonchi right lower lobe, right middle lobe, improved. Cardio: Rate: regular rate Rhythm: regular rhythm Heart sounds: no murmurs GI: Inspection: non-distended GI Palp: Yes Soft to palpation : Other: Suprapubic tenderness, fullness. Neuro: Motor exam (neuro): 5/5 motor strength present throughout Other: Tardive dyskinesia oral and bilateral hands Extrem: General: no edema Psych: Mental Status: mental status grossly normal Objective Data Vital Signs Vital Signs: Vital Signs - 24 hr 05/21/25 15:45 05/21/25 16:00 05/21/25 20:00 Temperature Pulse Rate 60 Respiratory Rate Blood Pressure Pulse Oximetry 95 Oxygen Delivery Nasal Cannula Nasal Cannula Oxygen Flow Rate 2 2 05/21/25 20:00 05/21/25 20:27 05/21/25 21:20 Temperature 97.7 F Pulse Rate 61 60 61 Respiratory Rate 16 16 Blood Pressure 139/62 Pulse Oximetry 99 95 Oxygen Delivery Nasal Cannula Oxygen Flow Rate 1 05/22/25 00:00 05/22/25 04:00 05/22/25 08:00 Temperature Pulse Rate 61 62 61 Respiratory Rate Blood Pressure Pulse Oximetry Oxygen Delivery Oxygen Flow Rate 05/22/25 09:15 05/22/25 09:20 05/22/25 09:21 Temperature Pulse Rate 60 60 Respiratory Rate Blood Pressure Pulse Oximetry 95 Oxygen Delivery Room Air Oxygen Flow Rate 05/22/25 10:01 05/22/25 10:57 05/22/25 12:00 Temperature Pulse Rate 62 Respiratory Rate Blood Pressure Pulse Oximetry 92 Oxygen Delivery Room Air Room Air Oxygen Flow Rate Intake/Output Intake/Output: Intake & Output 05/19/25 05/20/25 05/21/25 05/22/25 23:59 23:59 23:59 23:59 Intake Total 540 1030 880 Output Total 900 950 325 Balance -360 80 555 Meds/Results Medications: Active Medications Generic Name Dose Route Start Last Admin Trade Name Freq PRN Reason Stop Dose Admin Acetaminophen 650 mg 05/21/25 23:48 05/22/25 09:21 Acetaminophen 325 Mg Tablet PO 650 mg Q8H PRN Administration Mild Pain (1-3) or Fever Amiodarone HCl 200 mg 05/20/25 16:05 05/22/25 09:21 Amiodarone Hcl 200 Mg Tablet PO 200 mg DAILY STAN Administration Artificial Tears 1 drop 05/21/25 14:33 Artificial Tears Ophth Soln 15 Ml Bottle EACH EYE QID PRN Dry Eye(s) Carvedilol 25 mg 05/20/25 16:05 05/22/25 09:20 Carvedilol 12.5 Mg Tablet PO 25 mg DAILY STAN Administration Clonazepam 0.5 mg 05/20/25 17:00 05/22/25 12:19 Clonazepam (*Crx) 0.5 Mg Tablet PO 0.5 mg TID STAN Administration Donepezil HCl 10 mg 05/20/25 21:00 05/21/25 20:32 Donepezil Hcl 10 Mg Tablet PO 10 mg HS STAN Administration Famotidine 20 mg 05/21/25 09:09 Famotidine 20 Mg Tablet PO Q12H PRN Reflux Furosemide 40 mg 05/21/25 09:00 05/21/25 08:29 Furosemide 40 Mg Tablet PO 40 mg MoWeFr@0900 STAN Administration Ampicillin Sodium/Sulbactam 100 mls @ 200 mls/hr 05/21/25 12:00 05/22/25 12:18 Sodium 3 gm/ Sodium Chloride IVPB 200 mls/hr Q6HR STAN Administration Levothyroxine Sodium 150 mcg 05/21/25 06:30 05/22/25 05:38 Levothyroxine Sodium 150 Mcg Tablet PO 150 mcg DAILY@0630 STAN Administration Loratadine 10 mg 05/21/25 09:30 05/22/25 09:20 Loratadine 10 Mg Tablet PO 10 mg QAM STAN Administration Rosuvastatin Calcium 40 mg 05/21/25 09:30 05/22/25 09:20 Rosuvastatin 20 Mg Tablet PO 40 mg DAILY STAN Administration Sodium Chloride 10 ml 05/20/25 14:00 05/22/25 12:19 Central Line Flush IV PUSH 10 ml Q8HR STAN Administration Sodium Chloride 10 ml 05/20/25 12:11 Central Line Flush IV PUSH PRN PRN with TPN bag changes Sodium Chloride 20 ml 05/20/25 12:11 05/22/25 05:36 Central Line Flush IV PUSH 20 ml PRN PRN Administration after blood draws Spironolactone 25 mg 05/20/25 16:05 05/22/25 09:20 Spironolactone 25 Mg Tablet PO 25 mg DAILY STAN Administration Trazodone HCl 150 mg 05/21/25 21:00 05/21/25 20:32 Trazodone Hcl 50 Mg Tablet PO 150 mg HS STAN Administration Venlafaxine HCl 37.5 mg 05/21/25 09:30 05/22/25 09:20 Venlafaxine Hcl Xr 37.5 Mg Cap PO 37.5 mg DAILY STAN Administration Warfarin Sodium 2 mg 05/21/25 17:00 05/21/25 16:59 Warfarin (*Pbkc) 2 Mg Tablet PO 2 mg DAILY@1700 STAN Administration Radiology Results: ITS Impressions Chest X-Ray 05/20/25 06:00 IMPRESSION: 1. Small airspace disease left lower lobe. Modified Barium Swallow 05/21/25 20:52 IMPRESSION: Dysphagia with flash laryngeal penetration without aspiration. Please correlate with speech pathologist findings and specific feeding recommendations. Labs Labs: Laboratory Results - last 24 hr 05/21/25 05/22/25 11:05 05:32 WBC 6.1 RBC 3.20 L Hgb 10.0 L Hct 32.9 L MCV 102.8 H MCH 31.3 MCHC 30.4 L RDW 14.7 H Plt Count 206 MPV 9.2 Immature Gran % (Auto) 0.3 Neut % (Auto) 53.3 Lymph % (Auto) 32.6 [place] % (Auto) 12.5 H Eos % (Auto) 0.8 Baso % (Auto) 0.5 Lymph # (Auto) 1.99 [place] # (Auto) 0.8 H Eos # (Auto) 0.1 Baso # (Auto) 0.0 Abs Immat Gran (auto) 0.02 Absolute Neuts (auto) 3.3 Absolute Nucleated RBC 0.000 Nucleated RBC % 0.0 PT 28.0 H INR 2.7 Sodium 137 Potassium 3.1 L Chloride 100 Carbon Dioxide 34 H Anion Gap 3 L BUN 19 H Creatinine 1.00 Estim Creat Clear Calc 41 Estimated GFR 53 L Glucose 77 Calcium 8.1 L Magnesium 2.1 M.pneumoniae IgM Titer <770
--- NOTE | 2025-05-22 16:12 | PC.NURSE ---
RN called Dr. Monzon about patient's vomiting and requested Zofran. did not answer yet.
[2025-05-22] MEDS: ONDANSETRON INJ 4 MG/2 ML VIAL IV PUSH (16:39)
[2025-05-22] MEDS: WARFARIN (*PBKC) 2 MG TABLET PO (16:44)
[2025-05-22] MEDS: FAMOTIDINE 20 MG TABLET PO (16:45)
--- NOTE | 2025-05-22 16:52 | PC.NURSE ---
RN was notified patient was dry heaving and spitting up rather than vomiting. RN was able to get ahold of MD and get Zofran inj ordered. Patient has continued to dry heave and spit up. RN assessed patient and noticed wheezing and took vitals and found patient now at 87% on RA. RN put patient back on O2 at 2 L and called MD again. MD has put in new orders.
[2025-05-22] MEDS: IPRATROPIUM 0.5 MG/ALBUTEROL SULFATE 2.5 MG AMPUL.NEB 3 ML INHALATION (17:10)
[2025-05-22 19:16] LABS: Anion Gap 3 mmol/L (4-12); Blood Urea Nitrogen 17 mg/dL (7-17); Calcium 8.2 mg/dL (8.4-10.2); Carbon Dioxide 33 mmol/L (22-30); Chloride 103 mmol/L (98-107); Estimated CRCL calculation 42 ml/min; Estimated Glomerular Filt Rate 54; Glucose 85 mg/dL (65-110); Potassium 4.1 mmol/L (3.4-5.0); Sodium 139 mmol/L (137-145)
[2025-05-23] VITALS (9 sets, daily range): BP systolic 136–146; BP diastolic 56–60; PULSE 60–78; RESP 18–20; TEMP 36.4–37.3; O2SAT 96–100
--- NOTE | 2025-05-23 05:00 | ECG_ITS ---
Test Date: 2025-05-23 08:48:49 Measurements Intervals [place] Rate: 67 P: 40 [place]: 149 QRS: -21 QRSD: 164 T: 89 QT: 531 QTc: 562 Interpretive Statements ELECTRONIC VENTRICULAR PACEMAKER ATYPICAL ECG Compared to ECG 05/20/2025 12:56:43 No significant changes Electronically Signed On 05-23-2025 13:02:33 CDT by Leroy Seo M.D.
[2025-05-23] MEDS: AMPICILLIN SODIUM/SULBACTAM 3 GM in SODIUM CHLORIDE 0.9% IV 100 ML 200 ML IVPB ×3 (05:13→17:02)
[2025-05-23] MEDS: CENTRAL LINE FLUSH 10 ML IV PUSH ×3 (05:16→21:30)
[2025-05-23] MEDS: CENTRAL LINE FLUSH 20 ML IV PUSH (05:16)
[2025-05-23 05:22] LABS: Hematocrit 34.5 % (37.0-47.0); Hemoglobin 10.4 g/dL (12.0-15.0); Immature Granulocyte Percent A 0.4 % (0-0.5); Lymphocytes Absolute Auto 1.93 K/mm3 (0.9-3.2); Mean Corpuscular HGB Conc 30.1 g/dl (32-36); Mean Corpuscular Hemoglobin 31.0 pg (26-34); Mean Corpuscular Volume 102.7 fl (80-100); Nucleated Red Blood Cells Absolute Auto 0.000 K/mm3 (0.0-0.012); Nucleated Red Blood Cells Perc 0.0 % (0.0-0.2); Platelet Count Result 213 k/mm3 (150-375); Red Blood Count 3.36 M/mm3 (4.2-5.4); White Blood Count 5.7 K/mm3 (4.5-10.0)
[2025-05-23 05:32] LABS: Anion Gap 4 mmol/L (4-12); Blood Urea Nitrogen 18 mg/dL (7-17); Calcium 8.3 mg/dL (8.4-10.2); Carbon Dioxide 32 mmol/L (22-30); Chloride 105 mmol/L (98-107); Estimated CRCL calculation 40 ml/min; Estimated Glomerular Filt Rate 52; Glucose 93 mg/dL (65-110); Magnesium 2.4 mg/dL (1.6-2.3); Potassium 3.8 mmol/L (3.4-5.0); Sodium 141 mmol/L (137-145)
[2025-05-23 05:34] LABS: INR 2.9; Prothrombin Time 29.3 Seconds (11.1-14.7)
--- NOTE | 2025-05-23 09:27 | PCSTNOTE ---
Treatment held patient up all evening possible aspiration of own secretions due to anxiety and currently NPO
--- NOTE | 2025-05-23 13:47 | PM.IMPN ---
Progress Note: A&P Assessment and Plan (1) CHF (congestive heart failure): Qualifiers: Heart failure chronicity: acute on chronic Heart failure type: combined systolic and diastolic Qualified Code(s): I50.43 - Acute on chronic combined systolic (congestive) and diastolic (congestive) heart failure Code(s): I50.9 - Heart failure, unspecified Status: Acute (2) Acute non-ST elevation myocardial infarction (NSTEMI): Code(s): I21.4 - Non-ST elevation (NSTEMI) myocardial infarction Status: Acute (3) Chronic kidney disease: Code(s): N18.9 - Chronic kidney disease, unspecified Status: Acute (4) Acute hypoxemic respiratory failure: Code(s): J96.01 - Acute respiratory failure with hypoxia Status: Acute (5) Community acquired pneumonia: Qualifiers: Laterality: right Lung location: upper lobe of lung Qualified Code(s): J18.9 - Pneumonia, unspecified organism Code(s): J18.9 - Pneumonia, unspecified organism Status: Acute Plan 79-year-old female presenting from home with shortness of breath. She is a fair historian and per chart review has a history of GERD, hypothyroidism, depression with anxiety, bipolar (followed by Dr. 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 Ceja), AFib on warfarin. She has had acute onset the shortness of breath. She reports this happens when she has a CHF exacerbation. She took 40 mg of Lasix and call EMS. EMS gave her a DuoNeb with improvement in her symptoms. She has had a cough productive of clear sputum. Saturating low on room air requiring 2 L nasal cannula. Admitted on 05/21/2025 diagnosed with acute hypoxic respiratory failure, community-acquired pneumonia. ----- 05/23/2025 update: Patient aspirated again, I spoke with speech therapy, she continues to have secretions, anxiety about swallowing. She is amenable to feeding tube. Consult GI. Aspiration precautions, NPO. No fluids at this time, hold Lasix and spironolactone and monitor I/O, daily weight, volume status and respiratory status. After choking the patient subsequently placed back on oxygen. She is stable, wean as tolerated. Continue to treat for aspiration pneumonia and a probable component of aspiration pneumonitis. Acute hypoxic respiratory failure -likely due to pneumonia, placed on 2 L nasal cannula. Deescalate per protocol -check quad viral screen negative -patient unsure if she has COPD, never a smoker. No wheezing, continue to monitor. -she has been weaned to room air 05/22/2025 Aspiration pneumonia -patient placed on ceftriaxone and azithromycin on admission. Asked the patient multiple times if she had choked at home, she has a history of dysphagia. She said no, nurse later told me the patient reports she has been choking. She is a poor historian. She has right lower lobe and right middle lobe rhonchi. Chest x-ray on admission 05/20/2025 demonstrating small airspace disease of the left lower lobe. -switch antibiotics from ceftriaxone and doxycycline to Unasyn. If continues to be stable, deescalate antibiotics on 05/23/2025 -no sputum to collect -mycoplasma IgM less than 770, strep pneumo and Legionella antigen pending -she has a history of dysphagia which may be related to tardive dyskinesia. She reports her psychiatrist told her this will be the side effect of her antipsychotic medication. She does not want to change at this time. Advised to follow up with Psychiatry on this matter. She also has an appointment with ENT to investigate pooling of mucus drainage. -I reviewed the modified barium swallow on 05/21/2025 and spoke with the speech pathologist. Continue their current recommendations, possible repeat swallow study before discharge. -aspiration precautions. Sepsis without shock present on admission -WBC 19307 on admission. Acute hypoxic respiratory failure, both resolved -follow-up on blood cultures Systolic/diastolic heart failure with pacemaker/defibrillator -she appears euvolemic. Continue APARTMENT LOCATOR furosemide Monday. -continue APARTMENT LOCATOR spironolactone 25 mg p.o. q.day. -continue APARTMENT LOCATOR Coreg 25 mg p.o. daily. -daily weights, intake/output. Elevated troponin -present on admission, peaked. Likely due to hypoxia. No chest pain. Demand ischemia/type 2 [place]. AFib on warfarin -currently paced rhythm. -continue telemetry until pneumonia is resolved. INR on admission 2.8. Continue APARTMENT LOCATOR Coumadin 2 mg p.o. at 5:00 p.m., daily INR. CKD stage III -her baseline is around 1.1-1.2. Stable, Continue to monitor. She complains of suprapubic pain/pressure. Urinalysis not indicative of infection. She no longer complains of this. Essential hypertension: At goal, continue to monitor with current regimen Hyperlipidemia: Continue APARTMENT LOCATOR rosuvastatin 40 mg p.o. q.day Depression with anxiety: Continue APARTMENT LOCATOR venlafaxine, trazodone, Klonopin, donepezil Hypothyroidism: Continue APARTMENT LOCATOR levothyroxine 150 mcg p.o. q.day GERD: Continue APARTMENT LOCATOR famotidine p.r.n.. ----- Patient lives at home with a friend. Uses a walker at baseline. She wishes to be full code. Continue PT/OT for weakness. Consult speech therapy for dysphagia and aspiration pneumonia. Saline lock IV. Heart healthy diet. Aspiration precautions Fall precautions, ambulate with assistance. Stable on medical floor. Time Spent With Patient Time with patient: Greater than 35 minutes Subjective Date/time seen: 05/23/25 13:47 Interval history: She choked on some food. Since then she has been very anxious and does not want to eat. Speech therapy has seen her today as well. She continues to expectorated mucus. Review of Systems Review of Systems: All systems reviewed & are unremarkable except as noted in HPI and below (Subjective) Exam Const: General: comfortable and no acute distress Other: A&O x3 Eyes: Pupils: Equal, round and reactive pupils present Neck: Neck: supple Resp: Effort & Inspection: normal respiratory effort Other: Rhonchi right lower lobe, right middle lobe, improved. Cardio: Rate: regular rate Rhythm: regular rhythm Heart sounds: no murmurs GI: Inspection: non-distended GI Palp: Yes Soft to palpation : Other: Suprapubic tenderness, fullness. Neuro: Motor exam (neuro): 5/5 motor strength present throughout Other: Tardive dyskinesia oral and bilateral hands Extrem: General: no edema Psych: Mental Status: mental status grossly normal Objective Data Vital Signs Vital Signs: Vital Signs - 24 hr 05/22/25 16:00 05/22/25 16:31 05/22/25 17:13 Temperature 98.1 F Pulse Rate 91 62 Respiratory Rate 16 Blood Pressure Pulse Oximetry 95 98 Oxygen Delivery Nasal Cannula Oxygen Flow Rate 2 05/22/25 17:13 05/22/25 17:19 05/22/25 19:37 Temperature 97.6 F Pulse Rate 78 76 59 L Respiratory Rate 20 20 18 Blood Pressure 131/60 Pulse Oximetry 100 Oxygen Delivery Oxygen Flow Rate 05/22/25 20:00 05/23/25 00:00 05/23/25 04:00 Temperature Pulse Rate 60 60 60 Respiratory Rate Blood Pressure Pulse Oximetry Oxygen Delivery Oxygen Flow Rate 05/23/25 04:28 05/23/25 08:00 05/23/25 08:00 Temperature 99.1 F Pulse Rate 67 60 Respiratory Rate 20 Blood Pressure 141/56 H Pulse Oximetry 100 98 Oxygen Delivery Nasal Cannula Oxygen Flow Rate 2 05/23/25 12:00 Temperature Pulse Rate 74 Respiratory Rate Blood Pressure Pulse Oximetry Oxygen Delivery Oxygen Flow Rate Intake/Output Intake/Output: Intake & Output 05/20/25 05/21/25 05/22/25 05/23/25 23:59 23:59 23:59 23:59 Intake Total 540 1030 1180 100 Output Total 900 950 325 Balance -360 80 855 100 Meds/Results Medications: Active Medications Generic Name Dose Route Start Last Admin Trade Name Freq PRN Reason Stop Dose Admin Acetaminophen 650 mg 05/21/25 23:48 05/22/25 09:21 Acetaminophen 325 Mg Tablet PO 650 mg Q8H PRN Administration Mild Pain (1-3) or Fever Albuterol/Ipratropium 3 ml 05/22/25 16:56 05/22/25 17:10 Ipratropium 0.5 Mg/Albuterol Sulfate 2.5 Mg Ampul.Neb 3 Ml INHALATION 3 ml Q6HRT PRN Administration sob/wheezing Amiodarone HCl 200 mg 05/20/25 16:05 05/23/25 07:56 Amiodarone Hcl 200 Mg Tablet PO Not Given DAILY STAN Artificial Tears 1 drop 05/21/25 14:33 Artificial Tears Ophth Soln 15 Ml Bottle EACH EYE QID PRN Dry Eye(s) Carvedilol 25 mg 05/20/25 16:05 05/23/25 07:56 Carvedilol 12.5 Mg Tablet PO Not Given DAILY STAN Clonazepam 0.5 mg 05/20/25 17:00 05/23/25 07:57 Clonazepam (*Crx) 0.5 Mg Tablet PO Not Given TID STAN Donepezil HCl 10 mg 05/20/25 21:00 05/22/25 20:42 Donepezil Hcl 10 Mg Tablet PO Not Given HS STAN Famotidine 20 mg 05/21/25 09:09 05/22/25 16:45 Famotidine 20 Mg Tablet PO 20 mg Q12H PRN Administration Reflux Furosemide 40 mg 05/21/25 09:00 05/21/25 08:29 Furosemide 40 Mg Tablet PO 40 mg On Hold: 05/22/25 16:56 [email or web address] STAN Administration Ampicillin Sodium/Sulbactam 100 mls @ 200 mls/hr 05/21/25 12:00 05/23/25 11:16 Sodium 3 gm/ Sodium Chloride IVPB 200 mls/hr Q6HR STAN Administration Levothyroxine Sodium 150 mcg 05/21/25 06:30 05/23/25 06:15 Levothyroxine Sodium 150 Mcg Tablet PO Not Given DAILY@0630 STAN Loratadine 10 mg 05/21/25 09:30 05/23/25 07:57 Loratadine 10 Mg Tablet PO Not Given QAM STAN Ondansetron HCl 4 mg 05/22/25 16:29 05/22/25 16:39 Ondansetron Inj 4 Mg/2 Ml Vial IV PUSH 4 mg Q6H PRN Administration Nausea And Vomiting Rosuvastatin Calcium 40 mg 05/21/25 09:30 05/23/25 07:57 Rosuvastatin 20 Mg Tablet PO Not Given DAILY STAN Sodium Chloride 10 ml 05/20/25 14:00 05/23/25 05:16 Central Line Flush IV PUSH 10 ml Q8HR STAN Administration Sodium Chloride 10 ml 05/20/25 12:11 Central Line Flush IV PUSH PRN PRN with TPN bag changes Sodium Chloride 20 ml 05/20/25 12:11 05/23/25 05:16 Central Line Flush IV PUSH 20 ml PRN PRN Administration after blood draws Spironolactone 25 mg 05/20/25 16:05 05/23/25 07:57 Spironolactone 25 Mg Tablet PO Not Given On Hold: 05/23/25 13:47 DAILY STAN Trazodone HCl 150 mg 05/21/25 21:00 05/22/25 20:42 Trazodone Hcl 50 Mg Tablet PO Not Given HS [facility] Venlafaxine HCl 37.5 mg 05/21/25 09:30 05/23/25 07:57 Venlafaxine Hcl Xr 37.5 Mg Cap PO Not Given DAILY [facility] Warfarin Sodium 2 mg 05/21/25 17:00 05/22/25 16:44 Warfarin (*Pbkc) 2 Mg Tablet PO 2 mg DAILY@1700 [facility] Administration Radiology Results: ITS Impressions Chest X-Ray 05/20/25 06:00 IMPRESSION: 1. Small airspace disease left lower lobe. Modified Barium Swallow 05/21/25 20:52 IMPRESSION: Dysphagia with flash laryngeal penetration without aspiration. Please correlate with speech pathologist findings and specific feeding recommendations. Labs Labs: Laboratory Results - last 24 hr 05/21/25 05/22/25 05/23/25 11:05 18:58 05:08 WBC 5.7 RBC 3.36 L Hgb 10.4 L Hct 34.5 L MCV 102.7 H MCH 31.0 MCHC 30.1 L RDW 14.8 H Plt Count 213 MPV 9.2 Immature Gran % (Auto) 0.4 Neut % (Auto) 48.4 Lymph % (Auto) 33.9 [place] % (Auto) 14.8 H Eos % (Auto) 1.8 Baso % (Auto) 0.7 Lymph # (Auto) 1.93 [place] # (Auto) 0.8 H Eos # (Auto) 0.1 Baso # (Auto) 0.0 Abs Immat Gran (auto) 0.02 Absolute Neuts (auto) 2.8 Absolute Nucleated RBC 0.000 Nucleated RBC % 0.0 PT 29.3 H INR 2.9 Sodium 139 141 Potassium 4.1 3.8 Chloride 103 105 Carbon Dioxide 33 H 32 H Anion Gap 3 L 4 BUN 17 18 H Creatinine 0.99 1.03 H Estim Creat Clear Calc 42 40 Estimated GFR 54 L 52 L Glucose 85 93 Calcium 8.2 L 8.3 L Magnesium 2.4 H M.pneumoniae IgM Titer <770
[2025-05-24] VITALS (9 sets, daily range): BP systolic 163–171; BP diastolic 58–60; PULSE 60–85; RESP 18–20; TEMP 36.4–36.5; O2SAT 96–100
[2025-05-24] MEDS: AMPICILLIN SODIUM/SULBACTAM 3 GM in SODIUM CHLORIDE 0.9% IV 100 ML 200 ML IVPB ×5 (00:22→23:48)
[2025-05-24] MEDS: CENTRAL LINE FLUSH 20 ML IV PUSH (05:37)
[2025-05-24] MEDS: CENTRAL LINE FLUSH 10 ML IV PUSH ×3 (05:37→22:51)
[2025-05-24 05:46] LABS: Hematocrit 32.7 % (37.0-47.0); Hemoglobin 9.8 g/dL (12.0-15.0); Mean Corpuscular HGB Conc 30.0 g/dl (32-36); Mean Corpuscular Hemoglobin 31.5 pg (26-34); Mean Corpuscular Volume 105.1 fl (80-100); Platelet Count Result 179 k/mm3 (150-375); Red Blood Count 3.11 M/mm3 (4.2-5.4); White Blood Count 5.3 K/mm3 (4.5-10.0)
[2025-05-24 06:04] LABS: Anion Gap 4 mmol/L (4-12); Blood Urea Nitrogen 20 mg/dL (7-17); Calcium 8.2 mg/dL (8.4-10.2); Carbon Dioxide 31 mmol/L (22-30); Chloride 106 mmol/L (98-107); Estimated CRCL calculation 42 ml/min; Estimated Glomerular Filt Rate 55; Glucose 73 mg/dL (65-110); Magnesium 2.4 mg/dL (1.6-2.3); Potassium 4.1 mmol/L (3.4-5.0); Sodium 141 mmol/L (137-145)
[2025-05-24 06:12] LABS: INR 3.0; Prothrombin Time 30.0 Seconds (11.1-14.7)
--- NOTE | 2025-05-24 10:42 | P.PNIM_ITS ---
Progress Note: A&P Assessment and Plan (1) CHF (congestive heart failure): Qualifiers: Heart failure chronicity: acute on chronic Heart failure type: combined systolic and diastolic Qualified Code(s): I50.43 - Acute on chronic combined systolic (congestive) and diastolic (congestive) heart failure Code(s): I50.9 - Heart failure, unspecified Status: Acute (2) Acute non-ST elevation myocardial infarction (NSTEMI): Code(s): I21.4 - Non-ST elevation (NSTEMI) myocardial infarction Status: Acute (3) Chronic kidney disease: Code(s): N18.9 - Chronic kidney disease, unspecified Status: Acute (4) Acute hypoxemic respiratory failure: Code(s): J96.01 - Acute respiratory failure with hypoxia Status: Acute (5) Community acquired pneumonia: Qualifiers: Laterality: right Lung location: upper lobe of lung Qualified Code(s): J18.9 - Pneumonia, unspecified organism Code(s): J18.9 - Pneumonia, unspecified organism Status: Acute (6) Dysphagia: Code(s): R13.10 - Dysphagia, unspecified Status: Acute Plan 79-year-old female presenting from home with shortness of breath. She is a fair historian and per chart review has a history of GERD, hypothyroidism, depression with anxiety, bipolar (followed by Dr. 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 Ceja), AFib on warfarin. She has had acute onset the shortness of breath. She reports this happens when she has a CHF exacerbation. She took 40 mg of Lasix and call EMS. EMS gave her a DuoNeb with improvement in her symptoms. She has had a cough productive of clear sputum. Saturating low on room air requiring 2 L nasal cannula. Admitted on 05/21/2025 diagnosed with acute hypoxic respiratory failure, community- acquired pneumonia. ----- Acute hypoxic respiratory failure -likely due to pneumonia, placed on 2 L nasal cannula on admission, weaned off. Again placed on 2 L nasal cannula 05/22/2025 after she aspirated. Weaned off on 05/24/2025. -check quad viral screen negative -patient unsure if she has COPD, never a smoker. No wheezing, continue to mo nitor. Aspiration pneumonia/pneumonitis -patient placed on ceftriaxone and azithromycin on admission. Asked the patient multiple times if she had choked at home, she has a history of dysphagia. She said no, nurse later told me the patient reports she has been choking. She is a poor historian. She has right lower lobe and right middle lobe rhonchi. Chest x-ray on admission 05/20/2025 demonstrating small airspace disease of the left lower lobe. -switch antibiotics from ceftriaxone and doxycycline to Unasyn. She is back on room air on 05/24/2025, pneumonia is improving however she is at risk for aspiration. Consider deescalation of antibiotics on 05/25/2025 she continue to improve. -no sputum to collect -mycoplasma IgM less than 770, Legionella and Streptococcus pneumoniae antigens negative. -reports her psychiatrist told her this will be the side effect of her antipsychotic medication. She does not want to change at this time. Advised to follow up with Psychiatry on this matter. She also has an appointment with ENT to investigate pooling of mucus drainage. -I reviewed the modified barium swallow on 05/21/2025 and spoke with the speech pathologist. They tried to work with her again on 05/23/2025, suggesting a feeding tube. Asked that they continue to work with her on her dysphagia, GI consultation pending for further evaluation and discussion with the patient. -aspiration precautions. Sepsis without shock present on admission -WBC 91157 on admission with acute hypoxic respiratory failure due to aspiration pneumonia. Leukocytosis resolved, ARF resolved. -blood culture x2 on 05/20/2025, no growth at 48 hours. Systolic/diastolic heart failure with pacemaker/defibrillator -prior to admission she is on spironolactone 25 mg p.o. q.day, furosemide 40 mg p.o. Monday. She is currently NPO due to aspiration, we are holding these, she is euvolemic. Continue to monitor with daily weights and intake/output. Elevated troponin -present on admission, peaked. Likely due to hypoxia. No chest pain. Demand ischemia/type 2 [place]. AFib on warfarin -currently paced rhythm. -continue telemetry until pneumonia is resolved. INR on admission 2.8. Continue PHONE CIRCUIT OPERATOR Coumadin 2 mg p.o. at 5:00 p.m., daily INR. CKD stage III -her baseline is around 1.1-1.2. Stable, Continue to monitor. She complained of suprapubic pain/pressure. Urinalysis not indicative of infection. She no longer complains of this. Essential hypertension: Spironolactone and furosemide are on hold. Continue PHONE CIRCUIT OPERATOR Coreg 25 mg p.o. q.day. monitor. Hyperlipidemia: Continue PHONE CIRCUIT OPERATOR rosuvastatin 40 mg p.o. q.day Depression with anxiety: Continue PHONE CIRCUIT OPERATOR venlafaxine, trazodone, Klonopin, donepezil Hypothyroidism: Continue PHONE CIRCUIT OPERATOR levothyroxine 150 mcg p.o. q.day GERD: Continue PHONE CIRCUIT OPERATOR famotidine p.r.n. adding Protonix IV q.a.m. on 05/24/2025 for ulcer prophylaxis. ----- Patient lives at home with a friend/boyfriend. Uses a walker at baseline. She wishes to be full code. Continue PT/OT for weakness. Consult speech therapy for dysphagia and aspiration pneumonia. GI consultation pending. Saline lock IV. Heart healthy diet. Aspiration precautions Fall precautions, ambulate with assistance. Stable on medical floor. Time Spent With Patient Time with patient: Greater than 35 minutes Subjective Date/time seen: 05/24/25 10:42 Interval history: No major acute overnight events. Patient continues to pool mucous and has a hard time clearing it. She is amenable to feeding tube in discussing this with the it software engineer but at the same time wants to eat. I spoke with the patient's nurse, she patient to see speech therapy again for continued dysphagia therapy. Review of Systems Review of Systems: All systems reviewed & are unremarkable except as noted in HPI and below (Subjective) Exam Const: General: comfortable and no acute distress HENMT: Mouth: Yes moist mucous membranes Eyes: Pupils: Equal, round and reactive pupils present Neck: Neck: supple Resp: Effort & Inspection: normal respiratory effort Other: Right lower lobe right middle lung field rhonchi. No wheezing. No crackles Cardio: Rate: regular rate Rhythm: regular rhythm GI: Inspection: non-distended GI Palp: Yes Soft to palpation Neuro: Motor exam (neuro): 5/5 motor strength present throughout Extrem: General: no edema Other: Dyskinesia of the mouth and hands Objective Data Vital Signs Vital Signs: Vital Signs - 24 hr 05/23/25 12:00 05/23/25 14:00 05/23/25 16:00 Temperature 98.4 F Pulse Rate 74 78 60 Respiratory Rate 19 Blood Pressure 136/60 Pulse Oximetry 96 Oxygen Delivery Oxygen Flow Rate 05/23/25 20:00 05/23/25 20:00 05/23/25 20:48 Temperature 97.6 F Pulse Rate 60 60 Respiratory Rate 18 Blood Pressure 146/59 H Pulse Oximetry 100 100 Oxygen Delivery Nasal Cannula Oxygen Flow Rate 2 05/24/25 00:00 05/24/25 03:50 05/24/25 04:00 Temperature 97.6 F Pulse Rate 60 73 60 Respiratory Rate 20 Blood Pressure 171/58 H Pulse Oximetry 98 Oxygen Delivery Oxygen Flow Rate 05/24/25 08:00 05/24/25 10:38 Temperature Pulse Rate 62 74 Respiratory Rate 20 Blood Pressure Pulse Oximetry 96 Oxygen Delivery Room Air Oxygen Flow Rate Intake/Output Intake/Output: Intake & Output 05/21/25 05/22/25 05/23/25 05/24/25 23:59 23:59 23:59 23:59 Intake Total 1030 1180 300 200 Output Total 950 325 Balance 80 855 300 200 Meds/Results Medications: Active Medications Generic Name Dose Route Start Last Admin Trade Name Freq PRN Reason Stop Dose Admin Acetaminophen 650 mg 05/21/25 23:48 05/22/25 09:21 Acetaminophen 325 Mg Tablet PO 650 mg Q8H PRN Administration Mild Pain (1-3) or Fever Albuterol/Ipratropium 3 ml 05/22/25 16:56 05/22/25 17:10 Ipratropium 0.5 Mg/Albuterol Sulfate 2.5 Mg Ampul.Neb 3 Ml INHALATION 3 ml Q6HRT PRN Administration sob/wheezing Amiodarone HCl 200 mg 05/20/25 16:05 05/24/25 07:45 Amiodarone Hcl 200 Mg Tablet PO Not Given DAILY [facility] Artificial Tears 1 drop 05/21/25 14:33 Artificial Tears Ophth Soln 15 Ml Bottle EACH EYE QID PRN Dry Eye(s) Carvedilol 25 mg 05/20/25 16:05 05/24/25 07:45 Carvedilol 12.5 Mg Tablet PO Not Given DAILY [facility]AN Clonazepam 0.5 mg 05/20/25 17:00 05/24/25 07:46 Clonazepam (*Crx) 0.5 Mg Tablet PO Not Given TID STAN Donepezil HCl 10 mg 05/20/25 21:00 05/24/25 00:21 Donepezil Hcl 10 Mg Tablet PO Not Given HS STAN Famotidine 20 mg 05/21/25 09:09 05/22/25 16:45 Famotidine 20 Mg Tablet PO 20 mg Q12H PRN Administration Reflux Furosemide 40 mg 05/21/25 09:00 05/21/25 08:29 Furosemide 40 Mg Tablet PO 40 mg On Hold: 05/22/25 16:56 [email or web address] [email or web address] Administration Ampicillin Sodium/Sulbactam 100 mls @ 200 mls/hr 05/21/25 12:00 05/24/25 06:07 Sodium 3 gm/ Sodium Chloride IVPB Infused Q6HR STAN Infusion Levothyroxine Sodium 150 mcg 05/21/25 06:30 05/24/25 05:37 Levothyroxine Sodium 150 Mcg Tablet PO Not Given DAILY@0630 [facility] Loratadine 10 mg 05/21/25 09:30 05/24/25 07:46 Loratadine 10 Mg Tablet PO Not Given QAM [facility] Ondansetron HCl 4 mg 05/22/25 16:29 05/22/25 16:39 Ondansetron Inj 4 Mg/2 Ml Vial IV PUSH 4 mg Q6H PRN Administration Nausea And Vomiting Rosuvastatin Calcium 40 mg 05/21/25 09:30 05/24/25 07:46 Rosuvastatin 20 Mg Tablet PO Not Given DAILY STAN Sodium Chloride 10 ml 05/20/25 14:00 05/24/25 05:37 Central Line Flush IV PUSH 10 ml Q8HR STAN Administration Sodium Chloride 10 ml 05/20/25 12:11 Central Line Flush IV PUSH PRN PRN with TPN bag changes Sodium Chloride 20 ml 05/20/25 12:11 05/24/25 05:37 Central Line Flush IV PUSH 20 ml PRN PRN Administration after blood draws Spironolactone 25 mg 05/20/25 16:05 05/23/25 07:57 Spironolactone 25 Mg Tablet PO Not Given On Hold: 05/23/25 13:47 DAILY [facility] Trazodone HCl 150 mg 05/21/25 21:00 05/24/25 00:21 Trazodone Hcl 50 Mg Tablet PO Not Given [facility] Venlafaxine HCl 37.5 mg 05/21/25 09:30 05/24/25 07:46 Venlafaxine Hcl Xr 37.5 Mg Cap PO Not Given DAILY [facility] Warfarin Sodium 2 mg 05/21/25 17:00 05/23/25 14:54 Warfarin (*Pbkc) 2 Mg Tablet PO Not Given DAILY@1700 [facility] Radiology Results: ITS Impressions Chest X-Ray 05/20/25 06:00 IMPRESSION: 1. Small airspace disease left lower lobe. Modified Barium Swallow 05/21/25 20:52 IMPRESSION: Dysphagia with flash laryngeal penetration without aspiration. Please correlate with speech pathologist findings and specific feeding recommendations. Labs Labs: Laboratory Results - last 24 hr 05/24/25 05:35 WBC 5.3 RBC 3.11 L Hgb 9.8 L Hct 32.7 L MCV 105.1 H MCH 31.5 MCHC 30.0 L RDW 14.4 Plt Count 179 MPV 9.3 PT 30.0 H INR 3.0 Sodium 141 Potassium 4.1 Chloride 106 Carbon Dioxide 31 H Anion Gap 4 BUN 20 H Creatinine 0.97 Estim Creat Clear Calc 42 Estimated GFR 55 L Glucose 73 Calcium 8.2 L Magnesium 2.4 H
[2025-05-24] MEDS: PANTOPRAZOLE SODIUM IV 40 MG VIAL IV PUSH (11:51)
--- NOTE | 2025-05-24 13:51 | WPDGICN ---
Assessment and Plan Assessment and plan (1) Dysphagia: Code(s): R13.10 - Dysphagia, unspecified Status: Acute Assessment and Plan: egd 2023 only hiatal hernia she is npo, MBS showed dysphagia but no obvious aspiration but report of choking sensation at bedside we can always repeat EGD probably Monday however need to wait until INR near 1.5 (still high due to coumadin) in the meantime she will need DHT (I was told that radiologist unavailable during weekend) then we can place NGT and start tube feeding I mentioned that ultimate possibility is PEG tube, family and patient will think about it (2) Chronic anticoagulation: Code(s): Z79.01 - FPC (current) use of anticoagulants Status: Acute Assessment and Plan: coumadin on hold, can not do egd yet (3) Acute exacerbation of CHF (congestive heart failure): Code(s): I50.9 - Heart failure, unspecified Status: Acute Assessment and Plan: treated (4) Acute respiratory failure with hypoxia and hypercapnia: Code(s): J96.01 - Acute respiratory failure with hypoxia; J96.02 - Acute respiratory failure with hypercapnia Status: Acute Assessment and Plan: treated (5) Pneumonia: Code(s): J18.9 - Pneumonia, unspecified organism Status: Acute (6) Subtherapeutic international normalized ratio (INR): Code(s): R79.1 - Abnormal coagulation profile Status: Acute GI Consult Note Consult date/time: 05/24/25 13:51 Reason for consult: dysphagia HPI: Yi Martino is a 79 year old female she has history of GERD, hypothyroidism, depression with anxiety, bipolar, tardive dyskinesia, hyperlipidemia, history of TIA, hypertension, dysphagia, CKD stage 3, history of pneumonia, chronic combined diastolic systolic congestive heart failure history of ventricular arrhythmia with EF 20-25%, status post pacemaker/ICD implantation with recovery of EF to 40-45% (followed by Dr. Ceja), AFib on warfarin. She was admitted after choking sensation and possible aspiration when she had chicken at home and also admitted for CHF exacerbation and aspiration pneumonia. She says that had difficulty eating for almost 2 months, choking sensation with food and last EGD only hiatal hernia (indication was nausea). MBS showed dysphagia with flash laryngeal penetration without aspiration. RN noted that she was choking with food and now is npo. Family member at bedside. Review of Systems Constitutional: Constitutional: Denies chills Eyes: Eyes: Denies no additional eye complaints ENT: Reports Normal hearing present Cardiovascular: Cardiovascular: Denies chest pain Respiratory: Respiratory: Reports cough Gastrointestinal: Gastrointestinal: Reports no additional gastrointestinal complaints and Denies abdominal pain Genitourinary: Genitourinary: Denies dysuria Musculoskeletal: Musculoskeletal: Denies neck pain Integumentary/Breasts: Skin/Breast: Denies rash Neurologic: Denies confusion Psychiatric: Psychiatric: Denies behavioral changes [facility] Past Medical History Medical History Chronic anticoagulation Transient ischemic attack Gastroesophageal reflux disease Chronic kidney disease Depression with anxiety Deep venous thrombosis Heart failure with reduced ejection fraction EF was 20 to 25% in March 2021. Left bundle branch block Hyperlipidemia Hypertension Hypothyroidism Cardiomyopathy Bipolar disorder Surgical History Surgical History History of colon resection History of bilateral knee arthroplasty History of repair of left rotator cuff History of bladder suspension procedure History of tonsillectomy History of cardiac catheterization History of partial hysterectomy History of orthopedic surgery Family History Family History Father Hypertension Cerebrovascular accident Mother Family history of diabetes mellitus in first degree relative Family history of lung disease Family history of coronary artery disease Sibling Family history of diabetes mellitus in first degree relative Cardiomyopathy Son Family history of mental disorder Other Family history of alcoholism Family history of arthritis Family history of gout Social History Social History Social History: Surrogate medical decision maker: Man Linton, sibling. Code status: Full code. Smoking status: Never smoker Second hand tobacco smoke exposure: No Alcohol intake: never Substance use: never Substance use type: does not use Do You Feel Safe in your Home?: Yes Lack of Transportation: No Lack of Food: Never True Current Housing: I Have Housing Concerned About Future Housing: No Difficulty Paying Gas/Electric Bills: No Difficulty Paying for Meds: No Currently Unemployed: No Education: High School Diploma/GED Difficulty w/ Childcare or Family Care: No Living arrangements: with roommate(s) Additional living arrangements comments: . Has 1 child. Additional occupation/education comments: Retired from the [employer]. Spiritual care concerns: No Meds Home Medications and Allergies Home Medications ?Medication ?Instructions ?Recorded ?Confirmed ?Type trazodone 150 mg tablet 150 mg PO HS 03/22/21 05/20/25 History venlafaxine 37.5 mg 37.5 mg PO DAILY 08/22/22 05/20/25 History capsule,extended release 24 hr (Effexor XR) rosuvastatin 40 mg tablet 40 mg PO DAILY 12/27/23 05/20/25 History amiodarone 200 mg tablet 200 mg PO DAILY 01/02/24 05/20/25 History clonazepam 0.5 mg tablet 0.5 mg PO TID 01/02/24 05/20/25 History levothyroxine 150 mcg tablet 150 mcg PO DAILY 01/02/24 05/20/25 History carvedilol 12.5 mg tablet 25 mg PO DAILY 12/24/24 05/20/25 History cyanocobalamin (vitamin B-12) 1,000 mcg subcut MONTHLY 03/25/25 05/20/25 History 1,000 mcg/mL injection solution donepezil 10 mg tablet 10 mg PO HS 03/25/25 05/20/25 History famotidine 20 mg tablet 20 mg PO Q12H PRN reflux 03/25/25 05/20/25 History furosemide 40 mg tablet 40 mg PO 3XW 03/25/25 05/20/25 History ondansetron 4 mg disintegrating 8 mg PO Q12H PRN nausea and 03/25/25 05/20/25 History tablet vomiting spironolactone 25 mg tablet 25 mg PO DAILY 03/25/25 05/20/25 History warfarin 3 mg tablet 2 mg (0.6667 x 3 mg) PO DAILY #30 03/31/25 05/20/25 Rx tabs acetaminophen 650 mg 650 mg PO Q8H PRN pain 05/20/25 05/20/25 History tablet,extended release (8 Hour Pain Reliever) cetirizine 5 mg tablet 5 mg PO DAILY 05/20/25 05/20/25 History Allergies Allergy/AdvReac Type Severity Reaction Status Date / Time codeine Allergy Unknown Unknown Verified 05/07/25 12:34 hydroxyzine Allergy Unknown Unknown Verified 05/07/25 12:34 lorazepam Allergy Unknown Unknown Verified 05/07/25 12:34 tramadol Allergy Unknown Unknown Verified 05/07/25 12:34 NSAIDS (Non-Steroidal AdvReac Unknown Nausea Verified 05/07/25 12:34 Anti-Inflamma sumatriptan AdvReac Unknown FELT Verified 05/07/25 12:34 HORRIBLE Vital Signs Vital Signs - 24 hr 05/23/25 14:00 05/23/25 16:00 05/23/25 20:00 Temperature 98.4 F Pulse Rate 78 60 60 Respiratory Rate 19 Blood Pressure 136/60 Pulse Oximetry 96 Oxygen Delivery Oxygen Flow Rate 05/23/25 20:00 05/23/25 20:48 05/24/25 00:00 Temperature 97.6 F Pulse Rate 60 60 Respiratory Rate 18 Blood Pressure 146/59 H Pulse Oximetry 100 100 Oxygen Delivery Nasal Cannula Oxygen Flow Rate 2 05/24/25 03:50 05/24/25 04:00 05/24/25 08:00 Temperature 97.6 F Pulse Rate 73 60 62 Respiratory Rate 20 Blood Pressure 171/58 H Pulse Oximetry 98 Oxygen Delivery Oxygen Flow Rate 05/24/25 08:40 05/24/25 10:38 05/24/25 10:46 Temperature Pulse Rate 74 Respiratory Rate 20 Blood Pressure 170/60 H Pulse Oximetry 96 Oxygen Delivery Room Air Room Air Oxygen Flow Rate 05/24/25 12:00 Temperature Pulse Rate 63 Respiratory Rate Blood Pressure Pulse Oximetry Oxygen Delivery Oxygen Flow Rate Exam Const: General: comfortable and no acute distress HENMT: Mouth: Yes moist mucous membranes Eyes: Sclera: sclerae normal Neck: Neck: supple Resp: Effort & Inspection: normal respiratory effort Other: Right lower lobe right middle lung field rhonchi. No wheezing. No crackles Cardio: Rate: regular rate Rhythm: regular rhythm GI: Inspection: non-distended GI Palp: Yes Soft to palpation and No Tenderness to palpation present (GI) Skin: General skin exam: normal color Neuro: Motor exam (neuro): 5/5 motor strength present throughout Extrem: General: no edema Other: Dyskinesia of the mouth and hands Psych: Mental Status: mental status grossly normal Results Labs 05/24/25 05:35 05/24/25 05:35 Labs: Short CBC 05/24/25 Range/Units 05:35 WBC 5.3 (4.5-10.0) K/mm3 Hgb 9.8 L (12.0-15.0) g/dL Hct 32.7 L (37.0-47.0) % Plt Count 179 (150-375) k/mm3 [facility] 05/24/25 05:35 Sodium 141 Potassium 4.1 Chloride 106 Carbon Dioxide 31 H BUN 20 H Creatinine 0.97 Glucose 73 Calcium 8.2 L
--- NOTE | 2025-05-24 13:54 | PC.NURSE ---
RN was called from x-ray and was told patient cannot get dobhoff tube via x-ray until Monday because of not having a radiologist today.
--- NOTE | 2025-05-24 13:57 | PC.NURSE ---
RN made MD aware of situation with radiology and MD is putting new orders in.
--- NOTE | 2025-05-24 17:46 | PC.NURSE ---
RN attempted NG tube placement. NG tube placed and patient pulled it out immediately before KUB was able to be performed. RN notified MD Saravia and MD Pfeiffer. MD Pfeiffer said to start patient on thickened liquids diet.
[2025-05-25] VITALS (9 sets, daily range): BP systolic 146–160; BP diastolic 56–97; PULSE 60–90; RESP 17–20; TEMP 36.3–36.8; O2SAT 94–97
[2025-05-25] MEDS: ACETAMINOPHEN ELIXIR 325 MG/10.15 ML UDC 650 MG PO (05:07)
[2025-05-25] MEDS: CENTRAL LINE FLUSH 20 ML IV PUSH (05:14)
[2025-05-25 05:54] LABS: INR 3.1; Prothrombin Time 30.5 Seconds (11.1-14.7)
[2025-05-25] MEDS: LEVOTHYROXINE SODIUM 150 MCG TABLET PO (06:01)
[2025-05-25] MEDS: CENTRAL LINE FLUSH 10 ML IV PUSH ×3 (06:02→21:25)
[2025-05-25] MEDS: AMPICILLIN SODIUM/SULBACTAM 3 GM in SODIUM CHLORIDE 0.9% IV 100 ML 200 ML IVPB ×4 (06:02→23:15)
--- NOTE | 2025-05-25 07:24 | P.PNIM_ITS ---
Progress Note: A&P Assessment and Plan (1) CHF (congestive heart failure): Qualifiers: Heart failure chronicity: acute on chronic Heart failure type: combined systolic and diastolic Qualified Code(s): I50.43 - Acute on chronic combined systolic (congestive) and diastolic (congestive) heart failure Code(s): I50.9 - Heart failure, unspecified Status: Acute (2) Acute non-ST elevation myocardial infarction (NSTEMI): Code(s): I21.4 - Non-ST elevation (NSTEMI) myocardial infarction Status: Acute (3) Chronic kidney disease: Code(s): N18.9 - Chronic kidney disease, unspecified Status: Acute (4) Acute hypoxemic respiratory failure: Code(s): J96.01 - Acute respiratory failure with hypoxia Status: Acute (5) Community acquired pneumonia: Qualifiers: Laterality: right Lung location: upper lobe of lung Qualified Code(s): J18.9 - Pneumonia, unspecified organism Code(s): J18.9 - Pneumonia, unspecified organism Status: Acute (6) Dysphagia: Code(s): R13.10 - Dysphagia, unspecified Status: Acute Plan 79-year-old female presenting from home with shortness of breath. She is a fair historian and per chart review has a history of GERD, hypothyroidism, depression with anxiety, bipolar (followed by Dr. 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 Ceja), AFib on warfarin. She has had acute onset the shortness of breath. She reports this happens when she has a CHF exacerbation. She took 40 mg of Lasix and call EMS. EMS gave her a DuoNeb with improvement in her symptoms. She has had a cough productive of clear sputum. Saturating low on room air requiring 2 L nasal cannula. Admitted on 05/21/2025 diagnosed with acute hypoxic respiratory failure, community- acquired pneumonia. ----- Acute hypoxic respiratory failure -likely due to pneumonia, placed on 2 L nasal cannula on admission, weaned off. Again placed on 2 L nasal cannula 05/22/2025 after she aspirated. Weaned off on 05/24/2025. -check quad viral screen negative -patient unsure if she has COPD, never a smoker. No wheezing, continue to mo nitor. Aspiration pneumonia/pneumonitis -patient placed on ceftriaxone and azithromycin on admission. Asked the patient multiple times if she had choked at home, she has a history of dysphagia. She said no, nurse later told me the patient reports she has been choking. She is a poor historian. She has right lower lobe and right middle lobe rhonchi. Chest x-ray on admission 05/20/2025 demonstrating small airspace disease of the left lower lobe. -switch antibiotics from ceftriaxone and doxycycline to Unasyn. She is back on room air on 05/24/2025, pneumonia is improving however she is at risk for aspiration. Consider deescalation of antibiotics on 05/25/2025 she continue to improve. -no sputum to collect -mycoplasma IgM less than 770, Legionella and Streptococcus pneumoniae antigens negative. -reports her psychiatrist told her this will be the side effect of her antipsychotic medication. She does not want to change at this time. Advised to follow up with Psychiatry on this matter. She also has an appointment with ENT to investigate pooling of mucus drainage. -I reviewed the modified barium swallow on 05/21/2025 and spoke with the speech pathologist. They tried to work with her again on 05/23/2025, suggesting a feeding tube. Asked that they continue to work with her on her dysphagia, GI consultation pending for further evaluation and discussion with the patient. -aspiration precautions. -Will deescalate antibiotics on 05/25 as pt continues to improve clinically Dysphagia -GI consulted -NPO -EGD but will need to wait until INR 1.5 (Coumadin held) -Plan for DHT so they can place NGT and start tube feeding -Will likely need PEG eventually Sepsis without shock present on admission -WBC [id number] on admission with acute hypoxic respiratory failure due to aspiration pneumonia. Leukocytosis resolved, ARF resolved. -blood culture x2 on 05/20/2025, no growth at 48 hours. Systolic/diastolic heart failure with pacemaker/defibrillator -prior to admission she is on spironolactone 25 mg p.o. q.day, furosemide 40 mg p.o. Monday. She is currently NPO due to aspiration, we are holding these, she is euvolemic. Continue to monitor with daily weights and intake/output. Elevated troponin -present on admission, peaked. Likely due to hypoxia. No chest pain. Demand ischemia/type 2 DE. AFib on warfarin -currently paced rhythm. -continue telemetry until pneumonia is resolved. INR on admission 2.8. Continue [employer] Coumadin 2 mg p.o. at 5:00 p.m., daily INR. CKD stage III -her baseline is around 1.1-1.2. Stable, Continue to monitor. She complained of suprapubic pain/pressure. Urinalysis not indicative of infection. She no longer complains of this. Essential hypertension: Spironolactone and furosemide are on hold. Continue [employer]ICE Coreg 25 mg p.o. q.day. monitor. Hyperlipidemia: Continue [employer] rosuvastatin 40 mg p.o. q.day Depression with anxiety: Continue [employer] venlafaxine, trazodone, Klonopin, donepezil Hypothyroidism: Continue [employer] levothyroxine 150 mcg p.o. q.day GERD: Continue [employer]ICE famotidine p.r.n. adding Protonix IV q.a.m. on 05/24/2025 for ulcer prophylaxis. ----- Patient lives at home with a friend/boyfriend. Uses a walker at baseline. She wishes to be full code. Continue PT/OT for weakness. Consult speech therapy for dysphagia and aspiration pneumonia. GI consultation pending. Saline lock IV. Heart healthy diet. Aspiration precautions Fall precautions, ambulate with assistance. Stable on medical floor. Subjective Date/time seen: 05/25/25 07:24 Interval history: 79-year-old female presenting from home w/ shortness of breath. Hx of GERD, hypothyroidism, depression w/ anxiety, bipolar (followed by Dr. Esteban), i aotregenic tardive dyskinesia, hyperlipidemia, history of TIA, HTN, dysphagia, CKD stage 3, chronic combined diastolic systolic CHF hx of ventricular arrhythmia with EF 20-25%, s/p pacemaker/ICD implantation with recovery of EF to 40-45% (followed by Dr. Ceja), AFib on warfarin. She has had acute onset SOB. She reports this happens w/ CHF exacerbations. 05/25/2025 Patient sitting comfortably in bed at time of exam. Reports shortness of breath has subsided, denies any CP, abd pain. Still has some nausea. Will deescalate antibiotics for pneumonia given reassuring labs/physical exam findings. GI following regarding dysphagia. Will need DHT so they can place NGT - likely Monday as radiology unavailable on weekends. Review of Systems Review of Systems: All other systems reviewed negative except as noted in HPI above. All systems reviewed & are unremarkable except as noted in HPI and below (Subjective) Exam Narrative: General: alert and comfortable Eyes: EOMI, PERRLA ENNT External ears normal, Neck is supple, no masses, Respiratory systems: Clear to auscultation Cardiovascular S1, S2, normal rhythm, no murmur, rub, or gallop; no thrill or palpable murmurs on palpation. Gastrointestinal: soft, non-tender, and non-distended abdomen with no masses; BS present Skin: no rash, lesions, ulcerations, subcutaneous nodules or induration Musculoskeletal: no abnormality and no tenderness, normal ROM Neurologic: Alert and oriented x3, non focal Mental Status Exam: normal affect Const: General: comfortable and no acute distress Other: A&O x3 HENMT: Mouth: Yes moist mucous membranes Eyes: Pupils: Equal, round and reactive pupils present Neck: Neck: supple Resp: Effort & Inspection: normal respiratory effort Other: Right lower lobe right middle lung field rhonchi. No wheezing. No crackles Cardio: Rate: regular rate Rhythm: regular rhythm Heart sounds: no murmurs GI: Inspection: non-distended : Other: Suprapubic tenderness, fullness. Neuro: Cranial nerves: Yes Equal, round and reactive pupils present Motor exam (neuro): 5/5 motor strength present throughout Other: Tardive dyskinesia oral and bilateral hands Extrem: General: no edema Other: Dyskinesia of the mouth and hands Psych: Mental Status: mental status grossly normal Objective Data Vital Signs Vital Signs: Vital Signs - 24 hr 05/24/25 08:00 05/24/25 08:40 05/24/25 10:38 Temperature Pulse Rate 62 74 Respiratory Rate 20 Blood Pressure Pulse Oximetry 96 Oxygen Delivery Room Air Room Air Fraction of Inspired Oxygen 05/24/25 10:46 05/24/25 12:00 05/24/25 16:00 Temperature 97.7 F Pulse Rate 63 85 Respiratory Rate 18 Blood Pressure 170/60 H 163/58 H Pulse Oximetry 100 Oxygen Delivery Fraction of Inspired Oxygen 05/24/25 16:00 05/24/25 20:00 05/24/25 20:00 Temperature Pulse Rate 68 79 Respiratory Rate Blood Pressure Pulse Oximetry Oxygen Delivery Room Air Fraction of Inspired Oxygen 28 05/25/25 00:00 05/25/25 00:00 05/25/25 04:00 Temperature 98.3 F Pulse Rate 76 76 79 Respiratory Rate 18 Blood Pressure 148/97 H Pulse Oximetry 97 Oxygen Delivery Fraction of Inspired Oxygen 05/25/25 06:48 Temperature 97.9 F Pulse Rate 84 Respiratory Rate 18 Blood Pressure 155/56 H Pulse Oximetry 97 Oxygen Delivery Fraction of Inspired Oxygen Intake/Output Intake/Output: Intake & Output 05/22/25 05/23/25 05/24/25 05/25/25 23:59 23:59 23:59 23:59 Intake Total 1180 300 400 100 Output Total 325 2 Balance 855 300 400 98 Meds/Results Medications: Active Medications Generic Name Dose Route Start Last Admin Trade Name Freq PRN Reason Stop Dose Admin Acetaminophen 650 mg 05/21/25 23:48 05/22/25 09:21 Acetaminophen 325 Mg Tablet PO 650 mg Q8H PRN Administration Mild Pain (1-3) or Fever Albuterol/Ipratropium 3 ml 05/22/25 16:56 05/22/25 17:10 Ipratropium 0.5 Mg/Albuterol Sulfate 2.5 Mg Ampul.Neb 3 Ml INHALATION 3 ml Q6HRT PRN Administration sob/wheezing Amiodarone HCl 200 mg 05/20/25 16:05 05/24/25 07:45 Amiodarone Hcl 200 Mg Tablet PO Not Given DAILY STAN Artificial Tears 1 drop 05/21/25 14:33 Artificial Tears Ophth Soln 15 Ml Bottle EACH EYE QID PRN Dry Eye(s) Carvedilol 25 mg 05/20/25 16:05 05/24/25 07:45 Carvedilol 12.5 Mg Tablet PO Not Given DAILY STAN Clonazepam 0.5 mg 05/20/25 17:00 05/24/25 17:01 Clonazepam (*Crx) 0.5 Mg Tablet PO Not Given TID STAN Donepezil HCl 10 mg 05/20/25 21:00 05/24/25 21:59 Donepezil Hcl 10 Mg Tablet PO Not Given HS STAN Famotidine 20 mg 05/21/25 09:09 05/22/25 16:45 Famotidine 20 Mg Tablet PO 20 mg Q12H PRN Administration Reflux Furosemide 40 mg 05/21/25 09:00 05/21/25 08:29 Furosemide 40 Mg Tablet PO 40 mg On Hold: 05/22/25 16:56 [id number] STAN Administration Hydralazine HCl 5 mg 05/24/25 14:00 05/25/25 06:02 Hydralazine Hcl 20 Mg/Ml Vial IV PUSH 5 mg Q8H STAN Administration Ampicillin Sodium/Sulbactam 100 mls @ 200 mls/hr 05/21/25 12:00 05/25/25 06:02 Sodium 3 gm/ Sodium Chloride IVPB 200 mls/hr Q6HR STAN Administration Levothyroxine Sodium 150 mcg 05/21/25 06:30 05/25/25 06:01 Levothyroxine Sodium 150 Mcg Tablet PO 150 mcg DAILY@0630 STAN Administration Loratadine 10 mg 05/21/25 09:30 05/24/25 07:46 Loratadine 10 Mg Tablet PO Not Given QAM STAN Ondansetron HCl 4 mg 05/22/25 16:29 05/22/25 16:39 Ondansetron Inj 4 Mg/2 Ml Vial IV PUSH 4 mg Q6H PRN Administration Nausea And Vomiting Pantoprazole Sodium 40 mg 05/24/25 10:50 05/24/25 11:51 Pantoprazole Sodium Iv 40 Mg Vial IV PUSH 40 mg QAM STAN Administration Rosuvastatin Calcium 40 mg 05/21/25 09:30 05/24/25 07:46 Rosuvastatin 20 Mg Tablet PO Not Given DAILY STAN Sodium Chloride 10 ml 05/20/25 14:00 05/25/25 06:02 Central Line Flush IV PUSH 10 ml Q8HR STAN Administration Sodium Chloride 10 ml 05/20/25 12:11 Central Line Flush IV PUSH PRN PRN with TPN bag changes Sodium Chloride 20 ml 05/20/25 12:11 05/25/25 05:14 Central Line Flush IV PUSH 20 ml PRN PRN Administration after blood draws Spironolactone 25 mg 05/20/25 16:05 05/23/25 07:57 Spironolactone 25 Mg Tablet PO Not Given On Hold: 05/23/25 13:47 DAILY STAN Trazodone HCl 150 mg 05/21/25 21:00 05/24/25 21:59 Trazodone Hcl 50 Mg Tablet PO Not Given HS COUNTS INCLUDE 234 BEDS AT THE [facility] Venlafaxine HCl 37.5 mg 05/21/25 09:30 05/24/25 07:46 Venlafaxine Hcl Xr 37.5 Mg Cap PO Not Given DAILY COUNTS INCLUDE 234 BEDS AT THE [facility] Warfarin Sodium 2 mg 05/21/25 17:00 05/23/25 14:54 Warfarin (*Pbkc) 2 Mg Tablet PO Not Given On Hold: 05/24/25 13:48 DAILY@1700 COUNTS INCLUDE 234 BEDS AT THE [facility] Radiology Results: ITS Impressions Chest X-Ray 05/20/25 06:00 IMPRESSION: 1. Small airspace disease left lower lobe. Modified Barium Swallow 05/21/25 20:52 IMPRESSION: Dysphagia with flash laryngeal penetration without aspiration. Please correlate with speech pathologist findings and specific feeding recommendations. Labs Labs: Laboratory Results - last 24 hr 05/25/25 05:34 PT 30.5 H INR 3.1
[2025-05-25] MEDS: ONDANSETRON INJ 4 MG/2 ML VIAL IV PUSH ×2 (08:12→14:50)
[2025-05-25] MEDS: VENLAFAXINE HCL XR 37.5 MG CAP PO (09:42)
[2025-05-25] MEDS: clonazePAM (*CRX) 0.5 MG TABLET PO ×3 (09:42→17:00)
[2025-05-25] MEDS: PANTOPRAZOLE SODIUM IV 40 MG VIAL IV PUSH (09:42)
[2025-05-25] MEDS: ROSUVASTATIN 20 MG TABLET 40 MG PO (09:43)
[2025-05-25] MEDS: LORATADINE 10 MG TABLET PO (09:43)
[2025-05-25] MEDS: AMIODARONE HCL 200 MG TABLET PO (09:43)
--- NOTE | 2025-05-25 11:15 | PCOTNOTE ---
Attempted to see pt for OT treatment. Pt is sleeping at therapist arrival however is able to wake up with verbal cue. Pt declined to participate in therapy session due to just now falling asleep since she did not sleep last night. Pt is educated on the importance of increase mobility and/or strengthening including sitting up in chair. Pt continues to decline stating that she has been getting up on the side of the bed to have ice chips and walking to the bathroom with staff. Will continue per poc duration/frequency.
--- NOTE | 2025-05-25 14:40 | WPDGIPROGNO ---
Progress Note: A&P Assessment and Plan (1) Dysphagia: Code(s): R13.10 - Dysphagia, unspecified Status: Acute Assessment and Plan: she did not tolerate enteral feeding with NGT she had EGD 2023 with no major findings, probably problem related to dysmotility/dyskenesia can not repeat EGD just yet, inr 3- coumadin on hold unsure if would need PEG- will ask speech therapisto to reassess (2) Chronic anticoagulation: Code(s): Z79.01 - primary counselor (current) use of anticoagulants Status: Acute Assessment and Plan: coumadin on hold (3) Acute exacerbation of CHF (congestive heart failure): Code(s): I50.9 - Heart failure, unspecified Status: Acute Assessment and Plan: improved (4) Community acquired pneumonia: Qualifiers: Laterality: right Lung location: upper lobe of lung Qualified Code(s): J18.9 - Pneumonia, unspecified organism Code(s): J18.9 - Pneumonia, unspecified organism Status: Acute Subjective Date/time seen: 05/25/25 14:40 Interval history: NGT placed for feeding but she pulled it out she is on thickened liquid diet now Review of Systems Review of Systems: All systems reviewed & are unremarkable except as noted in HPI and below Exam Const: General: comfortable and no acute distress HENMT: Mouth: Yes moist mucous membranes Eyes: Sclera: sclerae normal Neck: Neck: supple Resp: Effort & Inspection: normal respiratory effort Other: Right lower lobe right middle lung field rhonchi. No wheezing. No crackles Cardio: Rate: regular rate Rhythm: regular rhythm GI: Inspection: non-distended GI Palp: Yes Soft to palpation and No Tenderness to palpation present (GI) Skin: General skin exam: normal color Neuro: Motor exam (neuro): 5/5 motor strength present throughout Extrem: General: no edema Other: Dyskinesia of the mouth and hands Psych: Mental Status: mental status grossly normal Objective Data Vital Signs Vital Signs: Vital Signs - 24 hr 05/24/25 16:00 05/24/25 16:00 05/24/25 20:00 Temperature 97.7 F Pulse Rate 85 68 79 Respiratory Rate 18 Blood Pressure 163/58 H Pulse Oximetry 100 Oxygen Delivery Fraction of Inspired Oxygen 05/24/25 20:00 05/25/25 00:00 05/25/25 00:00 Temperature 98.3 F Pulse Rate 76 76 Respiratory Rate 18 Blood Pressure 148/97 H Pulse Oximetry 97 Oxygen Delivery Room Air Fraction of Inspired Oxygen 28 05/25/25 04:00 05/25/25 06:48 05/25/25 08:00 Temperature 97.9 F Pulse Rate 79 84 Respiratory Rate 18 Blood Pressure 155/56 H Pulse Oximetry 97 Oxygen Delivery Room Air Fraction of Inspired Oxygen 05/25/25 08:00 05/25/25 09:43 05/25/25 09:43 Temperature Pulse Rate 83 90 90 Respiratory Rate Blood Pressure Pulse Oximetry Oxygen Delivery Fraction of Inspired Oxygen 05/25/25 12:00 Temperature Pulse Rate 60 Respiratory Rate Blood Pressure Pulse Oximetry Oxygen Delivery Fraction of Inspired Oxygen Intake/Output Intake/Output: Intake & Output 05/22/25 05/23/25 05/24/25 05/25/25 23:59 23:59 23:59 23:59 Intake Total 1180 300 400 300 Output Total 325 2 Balance 855 300 400 298 Meds/Results Medications: Active Medications Generic Name Dose Route Start Last Admin Trade Name Freq PRN Reason Stop Dose Admin Acetaminophen 650 mg 05/21/25 23:48 05/22/25 09:21 Acetaminophen 325 Mg Tablet PO 650 mg Q8H PRN Administration Mild Pain (1-3) or Fever Albuterol/Ipratropium 3 ml 05/22/25 16:56 05/22/25 17:10 Ipratropium 0.5 Mg/Albuterol Sulfate 2.5 Mg Ampul.Neb 3 Ml INHALATION 3 ml Q6HRT PRN Administration sob/wheezing Amiodarone HCl 200 mg 05/20/25 16:05 05/25/25 09:43 Amiodarone Hcl 200 Mg Tablet PO 200 mg DAILY STAN Administration Artificial Tears 1 drop 05/21/25 14:33 Artificial Tears Ophth Soln 15 Ml Bottle EACH EYE QID PRN Dry Eye(s) Carvedilol 25 mg 05/20/25 16:05 05/25/25 09:43 Carvedilol 12.5 Mg Tablet PO 25 mg DAILY STAN Administration Clonazepam 0.5 mg 05/20/25 17:00 05/25/25 13:00 Clonazepam (*Crx) 0.5 Mg Tablet PO 0.5 mg TID STAN Administration Donepezil HCl 10 mg 05/20/25 21:00 05/24/25 21:59 Donepezil Hcl 10 Mg Tablet PO Not Given HS STAN Famotidine 20 mg 05/21/25 09:09 05/22/25 16:45 Famotidine 20 Mg Tablet PO 20 mg Q12H PRN Administration Reflux Furosemide 40 mg 05/21/25 09:00 05/21/25 08:29 Furosemide 40 Mg Tablet PO 40 mg On Hold: 05/22/25 16:56 [email or web address] STAN Administration Hydralazine HCl 5 mg 05/24/25 14:00 05/25/25 13:00 Hydralazine Hcl 20 Mg/Ml Vial IV PUSH 5 mg Q8H STAN Administration Ampicillin Sodium/Sulbactam 100 mls @ 200 mls/hr 05/21/25 12:00 05/25/25 13:00 Sodium 3 gm/ Sodium Chloride IVPB 200 mls/hr Q6HR STAN Administration Levothyroxine Sodium 150 mcg 05/21/25 06:30 05/25/25 06:01 Levothyroxine Sodium 150 Mcg Tablet PO 150 mcg DAILY@0630 STAN Administration Loratadine 10 mg 05/21/25 09:30 05/25/25 09:43 Loratadine 10 Mg Tablet PO 10 mg QAM STAN Administration Ondansetron HCl 4 mg 05/22/25 16:29 05/25/25 08:12 Ondansetron Inj 4 Mg/2 Ml Vial IV PUSH 4 mg Q6H PRN Administration Nausea And Vomiting Pantoprazole Sodium 40 mg 05/24/25 10:50 05/25/25 09:42 Pantoprazole Sodium Iv 40 Mg Vial IV PUSH 40 mg QAM STAN Administration Rosuvastatin Calcium 40 mg 05/21/25 09:30 05/25/25 09:43 Rosuvastatin 20 Mg Tablet PO 40 mg DAILY STAN Administration Sodium Chloride 10 ml 05/20/25 14:00 05/25/25 13:01 Central Line Flush IV PUSH 10 ml Q8HR STAN Administration Sodium Chloride 10 ml 05/20/25 12:11 Central Line Flush IV PUSH PRN PRN with TPN bag changes Sodium Chloride 20 ml 05/20/25 12:11 05/25/25 05:14 Central Line Flush IV PUSH 20 ml PRN PRN Administration after blood draws Spironolactone 25 mg 05/20/25 16:05 05/23/25 07:57 Spironolactone 25 Mg Tablet PO Not Given On Hold: 05/23/25 13:47 DAILY [facility] Trazodone HCl 150 mg 05/21/25 21:00 05/24/25 21:59 Trazodone Hcl 50 Mg Tablet PO Not Given [facility] Venlafaxine HCl 37.5 mg 05/21/25 09:30 05/25/25 09:42 Venlafaxine Hcl Xr 37.5 Mg Cap PO 37.5 mg DAILY [facility] Administration Warfarin Sodium 2 mg 05/21/25 17:00 05/23/25 14:54 Warfarin (*Pbkc) 2 Mg Tablet PO Not Given On Hold: 05/24/25 13:48 DAILY@1700 [facility] Radiology Results: ITS Impressions Chest X-Ray 05/20/25 06:00 IMPRESSION: 1. Small airspace disease left lower lobe. Modified Barium Swallow 05/21/25 20:52 IMPRESSION: Dysphagia with flash laryngeal penetration without aspiration. Please correlate with speech pathologist findings and specific feeding recommendations. Labs Labs: Laboratory Results - last 24 hr 05/25/25 05:34 PT 30.5 H INR 3.1
[2025-05-25] MEDS: DONEPEZIL HCL 10 MG TABLET PO (20:11)
[2025-05-26] VITALS (13 sets, daily range): BP systolic 140–158; BP diastolic 46–64; PULSE 60–82; RESP 16–20; TEMP 36.1–36.8; O2SAT 94–96; BMI 28.0
[2025-05-26] MEDS: AMPICILLIN SODIUM/SULBACTAM 3 GM in SODIUM CHLORIDE 0.9% IV 100 ML 200 ML IVPB (05:07)
[2025-05-26] MEDS: LEVOTHYROXINE SODIUM 150 MCG TABLET PO (05:08)
[2025-05-26] MEDS: CENTRAL LINE FLUSH 10 ML IV PUSH ×3 (05:08→21:26)
[2025-05-26 05:25] LABS: Hematocrit 33.5 % (37.0-47.0); Hemoglobin 10.1 g/dL (12.0-15.0); Immature Granulocyte Percent A 0.4 % (0-0.5); Lymphocytes Absolute Auto 1.96 K/mm3 (0.9-3.2); Mean Corpuscular HGB Conc 30.1 g/dl (32-36); Mean Corpuscular Hemoglobin 30.9 pg (26-34); Mean Corpuscular Volume 102.4 fl (80-100); Nucleated Red Blood Cells Absolute Auto 0.000 K/mm3 (0.0-0.012); Nucleated Red Blood Cells Perc 0.0 % (0.0-0.2); Platelet Count Result 182 k/mm3 (150-375); Red Blood Count 3.27 M/mm3 (4.2-5.4); White Blood Count 7.4 K/mm3 (4.5-10.0)
[2025-05-26 05:36] LABS: INR 3.1; Prothrombin Time 30.7 Seconds (11.1-14.7)
[2025-05-26 05:40] LABS: Alanine Aminotransferase 21 U/L (6-35); Albumin Level 3.3 g/dL (3.5-5.1); Alkaline Phosphatase 54 U/L (38-126); Anion Gap 5 mmol/L (4-12); Aspartate Amino Transferase 39 U/L (14-36); Bilirubin,Total 0.4 mg/dL (0.2-1.3); Blood Urea Nitrogen 19 mg/dL (7-17); Calcium 8.2 mg/dL (8.4-10.2); Carbon Dioxide 27 mmol/L (22-30); Chloride 106 mmol/L (98-107); Estimated CRCL calculation 42 ml/min; Estimated Glomerular Filt Rate 55; Glucose 77 mg/dL (65-110); Potassium 3.5 mmol/L (3.4-5.0); Sodium 138 mmol/L (137-145); Total Protein 6.4 g/dL (6.3-8.2)
--- NOTE | 2025-05-26 08:26 | PM.IMPN ---
Progress Note: A&P Assessment and Plan (1) CHF (congestive heart failure): Qualifiers: Heart failure chronicity: acute on chronic Heart failure type: combined systolic and diastolic Qualified Code(s): I50.43 - Acute on chronic combined systolic (congestive) and diastolic (congestive) heart failure Code(s): I50.9 - Heart failure, unspecified Status: Acute (2) Acute non-ST elevation myocardial infarction (NSTEMI): Code(s): I21.4 - Non-ST elevation (NSTEMI) myocardial infarction Status: Acute (3) Chronic kidney disease: Code(s): N18.9 - Chronic kidney disease, unspecified Status: Acute (4) Acute hypoxemic respiratory failure: Code(s): J96.01 - Acute respiratory failure with hypoxia Status: Acute (5) Community acquired pneumonia: Qualifiers: Laterality: right Lung location: upper lobe of lung Qualified Code(s): J18.9 - Pneumonia, unspecified organism Code(s): J18.9 - Pneumonia, unspecified organism Status: Acute (6) Dysphagia: Code(s): R13.10 - Dysphagia, unspecified Status: Acute Plan 79-year-old female presenting from home with shortness of breath. She is a fair historian and per chart review has a history of GERD, hypothyroidism, depression with anxiety, bipolar (followed by Dr. 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 Ceja), AFib on warfarin. She has had acute onset the shortness of breath. She reports this happens when she has a CHF exacerbation. She took 40 mg of Lasix and call EMS. EMS gave her a DuoNeb with improvement in her symptoms. She has had a cough productive of clear sputum. Saturating low on room air requiring 2 L nasal cannula. Admitted on 05/21/2025 diagnosed with acute hypoxic respiratory failure, community-acquired pneumonia. Acute hypoxic respiratory failure -likely due to pneumonia, placed on 2 L nasal cannula on admission, weaned off. Again placed on 2 L nasal cannula 05/22/2025 after she aspirated. Weaned off on 05/24/2025. -check quad viral screen negative -patient unsure if she has COPD, never a smoker. No wheezing, continue to monitor. --chest xray Aspiration pneumonia/pneumonitis -patient placed on ceftriaxone and azithromycin on admission. Asked the patient multiple times if she had choked at home, she has a history of dysphagia. She said no, nurse later told me the patient reports she has been choking. She is a poor historian. She has right lower lobe and right middle lobe rhonchi. Chest x-ray on admission 05/20/2025 demonstrating small airspace disease of the left lower lobe. -switch antibiotics from ceftriaxone and doxycycline to Unasyn. She is back on room air on 05/24/2025, pneumonia is improving however she is at risk for aspiration. Consider deescalation of antibiotics on 05/25/2025 she continue to improve. -no sputum to collect -mycoplasma IgM less than 770, Legionella and Streptococcus pneumoniae antigens negative. -reports her psychiatrist told her this will be the side effect of her antipsychotic medication. She does not want to change at this time. Advised to follow up with Psychiatry on this matter. She also has an appointment with ENT to investigate pooling of mucus drainage. -I reviewed the modified barium swallow on 05/21/2025 and spoke with the speech pathologist. They tried to work with her again on 05/23/2025, suggesting a feeding tube. Asked that they continue to work with her on her dysphagia, GI consultation pending for further evaluation and discussion with the patient. -aspiration precautions. -Will deescalate antibiotics on 05/25 as pt continues to improve clinically Dysphagia -GI consulted -EGD but will need to wait until INR 1.5 (Coumadin held) Last dose 05/22. May need vitamin K since poor po intake - NGT placed, will start tube feeding -Will likely need PEG eventually Sepsis without shock present on admission -WBC 35705 on admission with acute hypoxic respiratory failure due to aspiration pneumonia. Leukocytosis resolved, ARF resolved. -blood culture x2 on 05/20/2025, no growth at 48 hours. Systolic/diastolic heart failure with pacemaker/defibrillator -prior to admission she is on spironolactone 25 mg p.o. q.day, furosemide 40 mg p.o. Monday. Eating and drinking minimally so holding these, she is euvolemic. Continue to monitor with daily weights and intake/output. Elevated troponin -present on admission, peaked. Likely due to hypoxia. No chest pain. Demand ischemia/type 2 [facility]. AFib on warfarin -currently paced rhythm. -continue telemetry until pneumonia is resolved. INR on admission 2.8. Continue [employer] Coumadin 2 mg p.o. at 5:00 p.m., daily INR. Coumadin on hold for GI procedures CKD stage III -her baseline is around 1.1-1.2. Stable, Continue to monitor. She complained of suprapubic pain/pressure. Urinalysis not indicative of infection. She no longer complains of this. Essential hypertension: Spironolactone and furosemide are on hold. Continue [employer] Coreg 25 mg p.o. q.day. monitor. Hyperlipidemia: Continue [employer] rosuvastatin 40 mg p.o. q.day Depression with anxiety: Continue [employer] venlafaxine, trazodone, Klonopin, donepezil Hypothyroidism: Continue [employer] levothyroxine 150 mcg p.o. q.day GERD: Continue [employer] famotidine p.r.n. adding Protonix IV q.a.m. on 05/24/2025 for ulcer prophylaxis. ----- Patient lives at home with a friend/boyfriend. Uses a walker at baseline. She wishes to be full code. Continue PT/OT for weakness. Consult speech therapy for dysphagia and aspiration pneumonia. GI consultation pending. Saline lock IV. Heart healthy diet. Aspiration precautions Fall precautions, ambulate with assistance. Stable on medical floor. Time Spent With Patient Time: 56 minutes Subjective Date/time seen: 05/26/25 14:59 Interval history: Concern for poor intake. MBS today. Last MBS 05/21 VSS NPO pending swallow eval. Speech recommended minced and moist, think liquids Appetite is a barrier to increased intake Patient reports chronic nausea over a year. Feels her weight was stable until the last 2 months, at which time she noticed decreased appetite. Clothes are looser. Has not noticed stool changes specifically but does note that she had 1 loose stool today. No constipation. No teeth and difficult to eat some foods. Appears tachypneic on exam but denies shortness of breath Review of Systems Review of Systems: All other systems reviewed negative except as noted in HPI above. All systems reviewed & are unremarkable except as noted in HPI and below (Subjective) Exam Narrative: General: alert and comfortable Eyes: EOMI, PERRLA ENNT External ears normal, Neck is supple, no masses, Respiratory systems: Clear to auscultation. Increased work of breathing Cardiovascular S1, S2, normal rhythm, no murmur, rub, or gallop; no thrill or palpable murmurs on palpation. Gastrointestinal: soft, non-tender, and non-distended abdomen with no masses; BS present Skin: no rash, lesions, ulcerations, subcutaneous nodules or induration Musculoskeletal: no abnormality and no tenderness, normal ROM Neurologic: Alert and oriented x3, non focal Mental Status Exam: normal affect Objective Data Vital Signs Vital Signs: Vital Signs - 24 hr 05/25/25 09:43 05/25/25 09:43 05/25/25 12:00 Temperature Pulse Rate 90 90 60 Respiratory Rate Blood Pressure Pulse Oximetry 05/25/25 16:00 05/25/25 16:00 05/25/25 19:45 Temperature 97.7 F 97.4 F L Pulse Rate 61 61 61 Respiratory Rate 17 20 Blood Pressure 146/61 H 160/62 H Pulse Oximetry 94 95 05/25/25 20:00 05/26/25 00:00 05/26/25 04:00 Temperature Pulse Rate 62 60 63 Respiratory Rate Blood Pressure Pulse Oximetry 05/26/25 05:30 Temperature 97 F L Pulse Rate 78 Respiratory Rate 16 Blood Pressure 149/55 H Pulse Oximetry 94 Intake/Output Intake/Output: Intake & Output 05/23/25 05/24/25 05/25/25 05/26/25 23:59 23:59 23:59 23:59 Intake Total 300 400 840 50 Output Total 2 Balance 300 400 838 50 Meds/Results Medications: Active Medications Generic Name Dose Route Start Last Admin Trade Name Freq PRN Reason Stop Dose Admin Acetaminophen 650 mg 05/21/25 23:48 05/22/25 09:21 Acetaminophen 325 Mg Tablet PO 650 mg Q8H PRN Administration Mild Pain (1-3) or Fever Albuterol/Ipratropium 3 ml 05/22/25 16:56 05/22/25 17:10 Ipratropium 0.5 Mg/Albuterol Sulfate 2.5 Mg Ampul.Neb 3 Ml INHALATION 3 ml Q6HRT PRN Administration sob/wheezing Amiodarone HCl 200 mg 05/20/25 16:05 05/25/25 09:43 Amiodarone Hcl 200 Mg Tablet PO 200 mg DAILY STAN Administration Artificial Tears 1 drop 05/21/25 14:33 Artificial Tears Ophth Soln 15 Ml Bottle EACH EYE QID PRN Dry Eye(s) Carvedilol 25 mg 05/20/25 16:05 05/25/25 09:43 Carvedilol 12.5 Mg Tablet PO 25 mg DAILY STAN Administration Clonazepam 0.5 mg 05/20/25 17:00 05/25/25 17:00 Clonazepam (*Crx) 0.5 Mg Tablet PO 0.5 mg TID STAN Administration Donepezil HCl 10 mg 05/20/25 21:00 05/25/25 20:11 Donepezil Hcl 10 Mg Tablet PO 10 mg HS STAN Administration Famotidine 20 mg 05/21/25 09:09 05/22/25 16:45 Famotidine 20 Mg Tablet PO 20 mg Q12H PRN Administration Reflux Furosemide 40 mg 05/21/25 09:00 05/21/25 08:29 Furosemide 40 Mg Tablet PO 40 mg On Hold: 05/22/25 16:56 [email or web address] STAN Administration Hydralazine HCl 5 mg 05/24/25 14:00 05/26/25 05:07 Hydralazine Hcl 20 Mg/Ml Vial IV PUSH 5 mg Q8H STAN Administration Ampicillin Sodium/Sulbactam 100 mls @ 200 mls/hr 05/21/25 12:00 05/26/25 05:07 Sodium 3 gm/ Sodium Chloride IVPB 200 mls/hr Q6HR STAN Administration Levothyroxine Sodium 150 mcg 05/21/25 06:30 05/26/25 05:08 Levothyroxine Sodium 150 Mcg Tablet PO 150 mcg DAILY@0630 STAN Administration Loratadine 10 mg 05/21/25 09:30 05/25/25 09:43 Loratadine 10 Mg Tablet PO 10 mg QAM STAN Administration Ondansetron HCl 4 mg 05/22/25 16:29 05/25/25 14:50 Ondansetron Inj 4 Mg/2 Ml Vial IV PUSH 4 mg Q6H PRN Administration Nausea And Vomiting Pantoprazole Sodium 40 mg 05/24/25 10:50 05/25/25 09:42 Pantoprazole Sodium Iv 40 Mg Vial IV PUSH 40 mg QAM STAN Administration Rosuvastatin Calcium 40 mg 05/21/25 09:30 05/25/25 09:43 Rosuvastatin 20 Mg Tablet PO 40 mg DAILY STAN Administration Sodium Chloride 10 ml 05/20/25 14:00 05/26/25 05:08 Central Line Flush IV PUSH 10 ml Q8HR STAN Administration Sodium Chloride 10 ml 05/20/25 12:11 Central Line Flush IV PUSH PRN PRN with TPN bag changes Sodium Chloride 20 ml 05/20/25 12:11 05/25/25 05:14 Central Line Flush IV PUSH 20 ml PRN PRN Administration after blood draws Spironolactone 25 mg 05/20/25 16:05 05/23/25 07:57 Spironolactone 25 Mg Tablet PO Not Given On Hold: 05/23/25 13:47 DAILY STAN Trazodone HCl 150 mg 05/21/25 21:00 05/25/25 20:11 Trazodone Hcl 50 Mg Tablet PO 150 mg HS STAN Administration Venlafaxine HCl 37.5 mg 05/21/25 09:30 05/25/25 09:42 Venlafaxine Hcl Xr 37.5 Mg Cap PO 37.5 mg DAILY STAN Administration Warfarin Sodium 2 mg 05/21/25 17:00 05/23/25 14:54 Warfarin (*Pbkc) 2 Mg Tablet PO Not Given On Hold: 05/24/25 13:48 DAILY@1700 [facility] Radiology Results: ITS Impressions Chest X-Ray 05/20/25 06:00 IMPRESSION: 1. Small airspace disease left lower lobe. Modified Barium Swallow 05/21/25 20:52 IMPRESSION: Dysphagia with flash laryngeal penetration without aspiration. Please correlate with speech pathologist findings and specific feeding recommendations. Labs Labs: Laboratory Results - last 24 hr 05/26/25 05/26/25 05:13 05:17 WBC 7.4 RBC 3.27 L Hgb 10.1 L Hct 33.5 L MCV 102.4 H MCH 30.9 MCHC 30.1 L RDW 14.9 H Plt Count 182 MPV 9.3 Immature Gran % (Auto) 0.4 Neut % (Auto) 60.6 Lymph % (Auto) 26.6 [place] % (Auto) 10.5 H Eos % (Auto) 1.4 Baso % (Auto) 0.5 Lymph # (Auto) 1.96 [place] # (Auto) 0.8 H Eos # (Auto) 0.1 Baso # (Auto) 0.0 Abs Immat Gran (auto) 0.03 Absolute Neuts (auto) 4.5 Absolute Nucleated RBC 0.000 Nucleated RBC % 0.0 PT 30.7 H INR 3.1 Sodium 138 Potassium 3.5 Chloride 106 Carbon Dioxide 27 Anion Gap 5 BUN 19 H Creatinine 0.98 Estim Creat Clear Calc 42 Estimated GFR 55 L Glucose 77 Calcium 8.2 L Total Bilirubin 0.4 AST 39 H ALT 21 Alkaline Phosphatase 54 Total Protein 6.4 Albumin 3.3 L Quality VTE Prophylaxis VTE prophylaxis: mechanical ordered and pharmacologic ordered Hospitalist MIPS Advance Care Plan I have confirmed that the patient's Advanced Care Plan is present, code status is documented, or surrogate decision maker is listed in patient medical record.: Yes Medication Reconciliation I have utilized all available resources to obtain, update and review the patients current medications (includes all prescriptions, OTC, herbals, cannabis, and nutritional supplements).: Yes
--- NOTE | 2025-05-26 08:49 | PCSTNOTE ---
Please refer to the Bedside Swallow Evaluation in the EMR. Please note, silent aspiration cannot be ruled out at bedside. The patient is a 79 year old female admitted with acute respiratory failure. Orders received from the physician to complete a repeat BSE and r/o aspiration risk. The patient was positioned upright and presented thin liquid barium via tsp and pudding consistency. Due to prior MBS results the patient was provided small bites and drinks via tsp, alternated bites and drinks and allowed a repeat swallow for each bite. The patient naturally utilized a chin tuck posture and performed 3 swallows for each bite. The patient is edentulous and stated only comfortable with smooth puree Oral Stage: Timely oral preparation and transit all consistencies. does take extra time to formulate the liquid bolus and control with swallow. Pharyngeal stage: When presented all consistencies the patient naturally utilized a chin tuck posture, the swallows were slightly delayed with multiple swallows occurring and throat clearing after multiple trials and swallows. These were noted in previous MBS without aspiration viewed. Discussed with patient and brother in length MBS and concerns with adequate intake to meet nutritional needs. Recommend repeat MBS Study
[2025-05-26] MEDS: ROSUVASTATIN 20 MG TABLET 40 MG PO (09:08)
[2025-05-26] MEDS: AMIODARONE HCL 200 MG TABLET PO (09:09)
[2025-05-26] MEDS: PANTOPRAZOLE SODIUM IV 40 MG VIAL IV PUSH (09:09)
[2025-05-26] MEDS: VENLAFAXINE HCL XR 37.5 MG CAP PO (09:09)
[2025-05-26] MEDS: clonazePAM (*CRX) 0.5 MG TABLET PO ×3 (09:09→17:37)
[2025-05-26] MEDS: LORATADINE 10 MG TABLET PO (09:09)
[2025-05-26] MEDS: ONDANSETRON INJ 4 MG/2 ML VIAL IV PUSH (09:53)
--- NOTE | 2025-05-26 11:52 | PCPTNOTE ---
The patient treatment was not able to be completed this morning due to patient out of room for test/procedure. Will plan to continue treatment per plan of care.
--- NOTE | 2025-05-26 13:53 | PCSTNOTE ---
Please refer to the Modified Barium Swallow Evaluation in the EMR. Pt was seen for a repeat MBS; Previous MBS completed on 05/21 revealed reduced tongue base and reduced laryngeal elevation; pt is currently on ST treatment list with focus of treatment on: base of tongue retraction exercises to reduce instances of residue following the swallow; laryngeal elevation and adduction to improve airway closure & residue following the swallow. Over the last week, oral intake has been poor; reportedly, pt is eating only a cup of yogurt per day; pt is edentulous; she stated that she can eat potato chips as she lets the chips melt down in her mouth. Pt reported a dry mouth; pt also conveyed that she does not feel hungry. The pt was seated for a lateral view. She was calm and pleasant as we waited for the radiologist to arrive. She was presented with 5 ml thin liquids, pudding coated with barium paste, a crumbled cracker in a pudding/barium paste mixture, uncontrolled trials of thin liquid via a cup and a straw, and an uncontrolled trial of mildly thick liquids via a cup sip. Excessive oral movement was noted throughout testing, which is consistent with tardive dyskinesia. Piece-meal deglutition was noted with the pudding trial, as was [id number] residue. Pt exhibited increased delay and difficulty with triggering a dry swallow to clear the residual. During the pharyngeal stage, reduced tongue base retraction was exhibited as evidenced by vallecular residue, which was mild to moderate across all consistencies. Again, dry swallows to clear the residual were delayed, but did partially clear the contents. Reduced laryngeal elevation was also exhibited as evidenced by laryngeal penetration (thin liquids) during the swallow but it appeared to clear without any instances of aspiration. Impression: mild dysphagia due to reduced tongue base retraction and reduced laryngeal elevation. Recommendation: level 5 minced and moist and level 0 regular thin liquids; 1:1 supervision with meals; pt may use the chin tuck as it slightly reduced residual; alternate liquids and solids. Encourage pt to dry swallow 2-3 times as well between bites. ST to continue tx.
--- NOTE | 2025-05-26 16:23 | WPDGIPROGNO ---
Progress Note: A&P Assessment and Plan (1) Dysphagia: Code(s): R13.10 - Dysphagia, unspecified Status: Acute Assessment and Plan: today radiologist placed DHT repeat MBS with oral dysphagia but no obvious aspiration plan is to follow speech therapist recommendation, in the meantime use tube feeding by DHT she had EGD 2023 with no major findings, probably problem related to dysmotility/dyskinesia INR still is 3, can not repeat EGD unsure if would need PEG- will wait speech therapist evaluation (2) Chronic anticoagulation: Code(s): Z79.01 - care home (current) use of anticoagulants Status: Acute Assessment and Plan: coumadin on hold but inr still 3 (3) Acute exacerbation of CHF (congestive heart failure): Code(s): I50.9 - Heart failure, unspecified Status: Acute Assessment and Plan: improved (4) Community acquired pneumonia: Qualifiers: Laterality: right Lung location: upper lobe of lung Qualified Code(s): J18.9 - Pneumonia, unspecified organism Code(s): J18.9 - Pneumonia, unspecified organism Status: Acute Subjective Date/time seen: 05/26/25 16:23 Interval history: DHT placed by radiologist, no major changes she is on thickened liquid diet but still poor oral intake Review of Systems Review of Systems: All systems reviewed & are unremarkable except as noted in HPI and below Exam Const: General: comfortable and no acute distress HENMT: Mouth: Yes moist mucous membranes Other: DHT in place Eyes: Sclera: sclerae normal Neck: Neck: supple Resp: Effort & Inspection: normal respiratory effort Cardio: Rate: regular rate Rhythm: regular rhythm GI: Inspection: non-distended GI Palp: Yes Soft to palpation and No Tenderness to palpation present (GI) Skin: General skin exam: normal color Neuro: Motor exam (neuro): 5/5 motor strength present throughout Extrem: General: no edema Other: Dyskinesia of the mouth and hands Psych: Mental Status: mental status grossly normal Objective Data Vital Signs Vital Signs: Vital Signs - 24 hr 05/25/25 19:45 05/25/25 20:00 05/26/25 00:00 Temperature 97.4 F L Pulse Rate 61 62 60 Respiratory Rate 20 Blood Pressure 160/62 H Pulse Oximetry 95 Oxygen Delivery Fraction of Inspired Oxygen 05/26/25 04:00 05/26/25 05:30 05/26/25 09:07 Temperature 97 F L 97.1 F L Pulse Rate 63 78 75 Respiratory Rate 16 16 Blood Pressure 149/55 H 158/62 H Pulse Oximetry 94 95 Oxygen Delivery Fraction of Inspired Oxygen 05/26/25 09:08 05/26/25 09:09 05/26/25 09:09 Temperature Pulse Rate 76 76 76 Respiratory Rate 16 Blood Pressure Pulse Oximetry 95 Oxygen Delivery Room Air Fraction of Inspired Oxygen 28 05/26/25 09:09 05/26/25 12:00 05/26/25 15:13 Temperature 97.9 F Pulse Rate 82 61 60 Respiratory Rate 18 Blood Pressure 150/64 H Pulse Oximetry 96 Oxygen Delivery Fraction of Inspired Oxygen Intake/Output Intake/Output: Intake & Output 05/23/25 05/24/25 05/25/25 05/26/25 23:59 23:59 23:59 23:59 Intake Total 300 400 840 410 Output Total 2 Balance 300 400 838 410 Meds/Results Medications: Active Medications Generic Name Dose Route Start Last Admin Trade Name Freq PRN Reason Stop Dose Admin Acetaminophen 650 mg 05/21/25 23:48 05/22/25 09:21 Acetaminophen 325 Mg Tablet PO 650 mg Q8H PRN Administration Mild Pain (1-3) or Fever Albuterol/Ipratropium 3 ml 05/22/25 16:56 05/22/25 17:10 Ipratropium 0.5 Mg/Albuterol Sulfate 2.5 Mg Ampul.Neb 3 Ml INHALATION 3 ml Q6HRT PRN Administration sob/wheezing Amiodarone HCl 200 mg 05/20/25 16:05 05/26/25 09:09 Amiodarone Hcl 200 Mg Tablet PO 200 mg DAILY STAN Administration Amoxicillin/Clavulanate Potassium 1 tablet 05/26/25 12:00 05/26/25 12:13 Amoxicillin/Clavulanate K 875-125 Mg Tab PO 05/27/25 21:01 1 tablet Q12HR STAN Administration Artificial Tears 1 drop 05/21/25 14:33 Artificial Tears Ophth Soln 15 Ml Bottle EACH EYE QID PRN Dry Eye(s) Carvedilol 25 mg 05/20/25 16:05 05/26/25 09:08 Carvedilol 12.5 Mg Tablet PO 25 mg DAILY STAN Administration Clonazepam 0.5 mg 05/20/25 17:00 05/26/25 12:13 Clonazepam (*Crx) 0.5 Mg Tablet PO 0.5 mg TID STAN Administration Donepezil HCl 10 mg 05/20/25 21:00 05/25/25 20:11 Donepezil Hcl 10 Mg Tablet PO 10 mg HS STAN Administration Famotidine 20 mg 05/21/25 09:09 05/22/25 16:45 Famotidine 20 Mg Tablet PO 20 mg Q12H PRN Administration Reflux Furosemide 40 mg 05/21/25 09:00 05/21/25 08:29 Furosemide 40 Mg Tablet PO 40 mg On Hold: 05/22/25 16:56 [email or web address] STAN Administration Hydralazine HCl 5 mg 05/24/25 14:00 05/26/25 14:00 Hydralazine Hcl 20 Mg/Ml Vial IV PUSH 5 mg Q8H STAN Administration Levothyroxine Sodium 150 mcg 05/21/25 06:30 05/26/25 05:08 Levothyroxine Sodium 150 Mcg Tablet PO 150 mcg DAILY@0630 STAN Administration Loratadine 10 mg 05/21/25 09:30 05/26/25 09:09 Loratadine 10 Mg Tablet PO 10 mg QAM STAN Administration Ondansetron HCl 4 mg 05/22/25 16:29 05/26/25 09:53 Ondansetron Inj 4 Mg/2 Ml Vial IV PUSH 4 mg Q6H PRN Administration Nausea And Vomiting Pantoprazole Sodium 40 mg 05/24/25 10:50 05/26/25 09:09 Pantoprazole Sodium Iv 40 Mg Vial IV PUSH 40 mg QAM STAN Administration Rosuvastatin Calcium 40 mg 05/21/25 09:30 05/26/25 09:08 Rosuvastatin 20 Mg Tablet PO 40 mg DAILY STAN Administration Sodium Chloride 10 ml 05/20/25 14:00 05/26/25 14:01 Central Line Flush IV PUSH 10 ml Q8HR STAN Administration Sodium Chloride 10 ml 05/20/25 12:11 Central Line Flush IV PUSH PRN PRN with TPN bag changes Sodium Chloride 20 ml 05/20/25 12:11 05/25/25 05:14 Central Line Flush IV PUSH 20 ml PRN PRN Administration after blood draws Spironolactone 25 mg 05/20/25 16:05 05/23/25 07:57 Spironolactone 25 Mg Tablet PO Not Given On Hold: 05/23/25 13:47 DAILY STAN Trazodone HCl 150 mg 05/21/25 21:00 05/25/25 20:11 Trazodone Hcl 50 Mg Tablet PO 150 mg HS STAN Administration Venlafaxine HCl 37.5 mg 05/21/25 09:30 05/26/25 09:09 Venlafaxine Hcl Xr 37.5 Mg Cap PO 37.5 mg DAILY STAN Administration Warfarin Sodium 2 mg 05/21/25 17:00 05/23/25 14:54 Warfarin (*Pbkc) 2 Mg Tablet PO Not Given On Hold: 05/24/25 13:48 DAILY@1700 [facility] Radiology Results: ITS Impressions Chest X-Ray 05/20/25 06:00 IMPRESSION: 1. Small airspace disease left lower lobe. Modified Barium Swallow 05/26/25 12:15 IMPRESSION: Oropharyngeal dysphagia with laryngeal penetration without aspiration. Please correlate with speech pathologist findings and specific feeding recommendations. Labs Labs: Laboratory Results - last 24 hr 05/26/25 05/26/25 05:13 05:17 WBC 7.4 RBC 3.27 L Hgb 10.1 L Hct 33.5 L MCV 102.4 H MCH 30.9 MCHC 30.1 L RDW 14.9 H Plt Count 182 MPV 9.3 Immature Gran % (Auto) 0.4 Neut % (Auto) 60.6 Lymph % (Auto) 26.6 [place] % (Auto) 10.5 H Eos % (Auto) 1.4 Baso % (Auto) 0.5 Lymph # (Auto) 1.96 [place] # (Auto) 0.8 H Eos # (Auto) 0.1 Baso # (Auto) 0.0 Abs Immat Gran (auto) 0.03 Absolute Neuts (auto) 4.5 Absolute Nucleated RBC 0.000 Nucleated RBC % 0.0 PT 30.7 H INR 3.1 Sodium 138 Potassium 3.5 Chloride 106 Carbon Dioxide 27 Anion Gap 5 BUN 19 H Creatinine 0.98 Estim Creat Clear Calc 42 Estimated GFR 55 L Glucose 77 Calcium 8.2 L Total Bilirubin 0.4 AST 39 H ALT 21 Alkaline Phosphatase 54 Total Protein 6.4 Albumin 3.3 L
[2025-05-26] MEDS: DONEPEZIL HCL 10 MG TABLET PO (21:22)
[2025-05-27] VITALS (10 sets, daily range): BP systolic 121–144; BP diastolic 45–63; PULSE 59–87; RESP 16–20; TEMP 36.1–36.9; O2SAT 92–97
[2025-05-27] MEDS: ACETAMINOPHEN 325 MG TABLET 650 MG PO ×2 (00:54→10:06)
[2025-05-27] MEDS: CENTRAL LINE FLUSH 10 ML IV PUSH ×3 (05:08→21:20)
[2025-05-27 05:26] LABS: Hematocrit 34.9 % (37.0-47.0); Hemoglobin 10.4 g/dL (12.0-15.0); Immature Granulocyte Percent A 0.3 % (0-0.5); Lymphocytes Absolute Auto 2.21 K/mm3 (0.9-3.2); Mean Corpuscular HGB Conc 29.8 g/dl (32-36); Mean Corpuscular Hemoglobin 31.0 pg (26-34); Mean Corpuscular Volume 103.9 fl (80-100); Nucleated Red Blood Cells Absolute Auto 0.000 K/mm3 (0.0-0.012); Nucleated Red Blood Cells Perc 0.0 % (0.0-0.2); Platelet Count Result 191 k/mm3 (150-375); Red Blood Count 3.36 M/mm3 (4.2-5.4); White Blood Count 7.6 K/mm3 (4.5-10.0)
[2025-05-27] MEDS: LEVOTHYROXINE SODIUM 150 MCG TABLET PO (05:30)
[2025-05-27 05:39] LABS: INR 2.8; Prothrombin Time 28.7 Seconds (11.1-14.7)
[2025-05-27 05:50] LABS: Alanine Aminotransferase 25 U/L (6-35); Albumin Level 3.0 g/dL (3.5-5.1); Alkaline Phosphatase 56 U/L (38-126); Anion Gap 4 mmol/L (4-12); Aspartate Amino Transferase 41 U/L (14-36); Bilirubin,Total 0.2 mg/dL (0.2-1.3); Blood Urea Nitrogen 22 mg/dL (7-17); Calcium 8.2 mg/dL (8.4-10.2); Carbon Dioxide 30 mmol/L (22-30); Chloride 104 mmol/L (98-107); Estimated CRCL calculation 37 ml/min; Estimated Glomerular Filt Rate 47; Glucose 143 mg/dL (65-110); Potassium 3.2 mmol/L (3.4-5.0); Sodium 138 mmol/L (137-145); Total Protein 6.1 g/dL (6.3-8.2)
[2025-05-27 06:42] LABS: Macrocytosis 1+ (NORMAL); Schistocytes None Seen
[2025-05-27] MEDS: PANTOPRAZOLE SODIUM IV 40 MG VIAL IV PUSH (09:57)
[2025-05-27] MEDS: ROSUVASTATIN 20 MG TABLET 40 MG PO (09:58)
[2025-05-27] MEDS: VENLAFAXINE HCL XR 37.5 MG CAP PO (09:58)
[2025-05-27] MEDS: LORATADINE 10 MG TABLET PO (09:58)
[2025-05-27] MEDS: clonazePAM (*CRX) 0.5 MG TABLET PO ×3 (09:58→16:58)
[2025-05-27] MEDS: AMIODARONE HCL 200 MG TABLET PO (09:58)
--- NOTE | 2025-05-27 10:14 | PM.IMPN ---
Progress Note: A&P Assessment and Plan (1) CHF (congestive heart failure): Qualifiers: Heart failure chronicity: acute on chronic Heart failure type: combined systolic and diastolic Qualified Code(s): I50.43 - Acute on chronic combined systolic (congestive) and diastolic (congestive) heart failure Code(s): I50.9 - Heart failure, unspecified Status: Acute (2) Acute non-ST elevation myocardial infarction (NSTEMI): Code(s): I21.4 - Non-ST elevation (NSTEMI) myocardial infarction Status: Acute (3) Chronic kidney disease: Code(s): N18.9 - Chronic kidney disease, unspecified Status: Acute (4) Acute hypoxemic respiratory failure: Code(s): J96.01 - Acute respiratory failure with hypoxia Status: Acute (5) Community acquired pneumonia: Qualifiers: Laterality: right Lung location: upper lobe of lung Qualified Code(s): J18.9 - Pneumonia, unspecified organism Code(s): J18.9 - Pneumonia, unspecified organism Status: Acute (6) Dysphagia: Code(s): R13.10 - Dysphagia, unspecified Status: Acute Plan 79-year-old female presenting from home with shortness of breath. She is a fair historian and per chart review has a history of GERD, hypothyroidism, depression with anxiety, bipolar (followed by Dr. 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 Ceja), AFib on warfarin. She has had acute onset the shortness of breath. She reports this happens when she has a CHF exacerbation. She took 40 mg of Lasix and call EMS. EMS gave her a DuoNeb with improvement in her symptoms. She has had a cough productive of clear sputum. Saturating low on room air requiring 2 L nasal cannula. Admitted on 05/21/2025 diagnosed with acute hypoxic respiratory failure, community-acquired pneumonia. Acute hypoxic respiratory failure -likely due to pneumonia, placed on 2 L nasal cannula on admission, weaned off. Again placed on 2 L nasal cannula 05/22/2025 after she aspirated. Weaned off on 05/24/2025. -check quad viral screen negative -patient unsure if she has COPD, never a smoker. No wheezing, continue to monitor. --chest xray Aspiration pneumonia/pneumonitis -patient placed on ceftriaxone and azithromycin on admission. Asked the patient multiple times if she had choked at home, she has a history of dysphagia. She said no, nurse later told me the patient reports she has been choking. She is a poor historian. She has right lower lobe and right middle lobe rhonchi. Chest x-ray on admission 05/20/2025 demonstrating small airspace disease of the left lower lobe. -switch antibiotics from ceftriaxone and doxycycline to Unasyn. She is back on room air on 05/24/2025, pneumonia is improving however she is at risk for aspiration. Consider deescalation of antibiotics on 05/25/2025 she continue to improve. -no sputum to collect -mycoplasma IgM less than 770, Legionella and Streptococcus pneumoniae antigens negative. -reports her psychiatrist told her this will be the side effect of her antipsychotic medication. She does not want to change at this time. Advised to follow up with Psychiatry on this matter. She also has an appointment with ENT to investigate pooling of mucus drainage. -I reviewed the modified barium swallow on 05/21/2025 and spoke with the speech pathologist. They tried to work with her again on 05/23/2025, suggesting a feeding tube. Asked that they continue to work with her on her dysphagia, GI consultation pending for further evaluation and discussion with the patient. -aspiration precautions. -Will deescalate antibiotics on 05/25 as pt continues to improve clinically Dysphagia -GI consulted -EGD but will need to wait until INR 1.5 (Coumadin held) Last dose 05/22. May need vitamin K since poor po intake - NGT placed, will start tube feeding -Will likely need PEG eventually Sepsis without shock present on admission -WBC 47911 on admission with acute hypoxic respiratory failure due to aspiration pneumonia. Leukocytosis resolved, ARF resolved. -blood culture x2 on 05/20/2025, no growth at 48 hours. Systolic/diastolic heart failure with pacemaker/defibrillator -prior to admission she is on spironolactone 25 mg p.o. q.day, furosemide 40 mg p.o. Monday. Eating and drinking minimally so holding these, she is euvolemic. Continue to monitor with daily weights and intake/output. Elevated troponin -present on admission, peaked. Likely due to hypoxia. No chest pain. Demand ischemia/type 2 [place]. AFib on warfarin -currently paced rhythm. -continue telemetry until pneumonia is resolved. INR on admission 2.8. Continue [employer] Coumadin 2 mg p.o. at 5:00 p.m., daily INR. Coumadin on hold for GI procedures CKD stage III -her baseline is around 1.1-1.2. Stable, Continue to monitor. She complained of suprapubic pain/pressure. Urinalysis not indicative of infection. She no longer complains of this. Essential hypertension: Spironolactone and furosemide are on hold. Continue [employer] Coreg 25 mg p.o. q.day. monitor. Hyperlipidemia: Continue [employer] rosuvastatin 40 mg p.o. q.day Depression with anxiety: Continue [employer] venlafaxine, trazodone, Klonopin, donepezil Hypothyroidism: Continue [employer] levothyroxine 150 mcg p.o. q.day GERD: Continue [employer] famotidine p.r.n. adding Protonix IV q.a.m. on 05/24/2025 for ulcer prophylaxis. ----- Patient lives at home with a friend/boyfriend. Uses a walker at baseline. She wishes to be full code. Continue PT/OT for weakness. Consult speech therapy for dysphagia and aspiration pneumonia. GI consultation pending. Saline lock IV. Heart healthy diet. Aspiration precautions Fall precautions, ambulate with assistance. Stable on medical floor. Subjective Date/time seen: 05/27/25 10:14 Interval history: Tube feeds & monitoring intake. May need a feeding tube. Appetite is a barrier to increased intake. Reports intermittent nausea for about a year. Started reglan TID before meals Speech recommended minced and moist, think liquids Patient reports chronic nausea over a year. Feels her weight was stable until the last 2 months, at which time she noticed decreased appetite. Clothes are looser. Has not noticed stool changes specifically but does note that she had 1 loose stool today. No constipation. No teeth and difficult to eat some foods. Appears tachypneic on exam but denies shortness of breath. Chest x-ray showed developing infiltrates. Just completed augmentin. follow up Review of Systems Review of Systems: All other systems reviewed negative except as noted in HPI above. All systems reviewed & are unremarkable except as noted in HPI and below (Subjective) Exam Narrative: General: alert and comfortable Eyes: EOMI, PERRLA ENNT External ears normal, Neck is supple, no masses, Respiratory systems: Clear to auscultation. Increased work of breathing Cardiovascular S1, S2, normal rhythm, no murmur, rub, or gallop; no thrill or palpable murmurs on palpation. Gastrointestinal: soft, non-tender, and non-distended abdomen with no masses; BS present Skin: no rash, lesions, ulcerations, subcutaneous nodules or induration Musculoskeletal: no abnormality and no tenderness, normal ROM Neurologic: Alert and oriented x3, non focal Mental Status Exam: normal affect Objective Data Vital Signs Vital Signs: Vital Signs - 24 hr 05/26/25 12:00 05/26/25 15:13 05/26/25 16:00 Temperature 97.9 F Pulse Rate 61 60 62 Respiratory Rate 18 Blood Pressure 150/64 H Pulse Oximetry 96 Oxygen Delivery 05/26/25 19:46 05/26/25 20:00 05/26/25 20:00 Temperature 98.3 F Pulse Rate 71 73 Respiratory Rate 20 Blood Pressure 150/49 H Pulse Oximetry 95 Oxygen Delivery Room Air 05/26/25 20:19 05/26/25 23:46 05/27/25 00:00 Temperature 97.8 F Pulse Rate 73 71 Respiratory Rate 20 Blood Pressure 140/46 L Pulse Oximetry 95 94 Oxygen Delivery Room Air 05/27/25 04:00 05/27/25 04:17 05/27/25 09:56 Temperature 97.0 F L 98.4 F Pulse Rate 66 65 87 Respiratory Rate 20 16 Blood Pressure 121/45 L 122/51 L Pulse Oximetry 92 94 Oxygen Delivery 05/27/25 09:58 05/27/25 09:58 Temperature Pulse Rate 87 84 Respiratory Rate Blood Pressure Pulse Oximetry Oxygen Delivery Intake/Output Intake/Output: Intake & Output 05/24/25 05/25/25 05/26/25 05/27/25 23:59 23:59 23:59 23:59 Intake Total 400 840 410 0 Output Total 2 Balance 400 838 410 0 Meds/Results Medications: Active Medications Generic Name Dose Route Start Last Admin Trade Name Freq PRN Reason Stop Dose Admin Acetaminophen 650 mg 05/21/25 23:48 05/27/25 10:06 Acetaminophen 325 Mg Tablet PO 650 mg Q8H PRN Administration Mild Pain (1-3) or Fever Albuterol/Ipratropium 3 ml 05/22/25 16:56 05/22/25 17:10 Ipratropium 0.5 Mg/Albuterol Sulfate 2.5 Mg Ampul.Neb 3 Ml INHALATION 3 ml Q6HRT PRN Administration sob/wheezing Amiodarone HCl 200 mg 05/20/25 16:05 05/27/25 09:58 Amiodarone Hcl 200 Mg Tablet PO 200 mg DAILY STAN Administration Amoxicillin/Clavulanate Potassium 1 tablet 05/26/25 12:00 05/27/25 09:58 Amoxicillin/Clavulanate K 875-125 Mg Tab PO 05/27/25 21:01 1 tablet Q12HR STAN Administration Artificial Tears 1 drop 05/21/25 14:33 Artificial Tears Ophth Soln 15 Ml Bottle EACH EYE QID PRN Dry Eye(s) Carvedilol 25 mg 05/20/25 16:05 05/27/25 09:58 Carvedilol 12.5 Mg Tablet PO 25 mg DAILY STAN Administration Clonazepam 0.5 mg 05/20/25 17:00 05/27/25 09:58 Clonazepam (*Crx) 0.5 Mg Tablet PO 0.5 mg TID STAN Administration Donepezil HCl 10 mg 05/20/25 21:00 05/26/25 21:22 Donepezil Hcl 10 Mg Tablet PO 10 mg HS STAN Administration Famotidine 20 mg 05/21/25 09:09 05/22/25 16:45 Famotidine 20 Mg Tablet PO 20 mg Q12H PRN Administration Reflux Furosemide 40 mg 05/21/25 09:00 05/21/25 08:29 Furosemide 40 Mg Tablet PO 40 mg On Hold: 05/22/25 16:56 [email or web address] STAN Administration Hydralazine HCl 5 mg 05/24/25 14:00 05/27/25 05:30 Hydralazine Hcl 20 Mg/Ml Vial IV PUSH 5 mg Q8H STAN Administration Levothyroxine Sodium 150 mcg 05/21/25 06:30 05/27/25 05:30 Levothyroxine Sodium 150 Mcg Tablet PO 150 mcg DAILY@0630 [facility] Administration Loratadine 10 mg 05/21/25 09:30 05/27/25 09:58 Loratadine 10 Mg Tablet PO 10 mg QAM STAN Administration Ondansetron HCl 4 mg 05/22/25 16:29 05/26/25 09:53 Ondansetron Inj 4 Mg/2 Ml Vial IV PUSH 4 mg Q6H PRN Administration Nausea And Vomiting Pantoprazole Sodium 40 mg 05/24/25 10:50 05/27/25 09:57 Pantoprazole Sodium Iv 40 Mg Vial IV PUSH 40 mg QAM STAN Administration Rosuvastatin Calcium 40 mg 05/21/25 09:30 05/27/25 09:58 Rosuvastatin 20 Mg Tablet PO 40 mg DAILY STAN Administration Sodium Chloride 10 ml 05/20/25 14:00 05/27/25 05:08 Central Line Flush IV PUSH 10 ml Q8HR STAN Administration Sodium Chloride 10 ml 05/20/25 12:11 Central Line Flush IV PUSH PRN PRN with TPN bag changes Sodium Chloride 20 ml 05/20/25 12:11 05/25/25 05:14 Central Line Flush IV PUSH 20 ml PRN PRN Administration after blood draws Spironolactone 25 mg 05/20/25 16:05 05/23/25 07:57 Spironolactone 25 Mg Tablet PO Not Given On Hold: 05/23/25 13:47 DAILY [facility] Trazodone HCl 150 mg 05/21/25 21:00 05/26/25 21:22 Trazodone Hcl 50 Mg Tablet PO 150 mg HS STAN Administration Venlafaxine HCl 37.5 mg 05/21/25 09:30 05/27/25 09:58 Venlafaxine Hcl Xr 37.5 Mg Cap PO 37.5 mg DAILY [facility] Administration Warfarin Sodium 2 mg 05/21/25 17:00 05/23/25 14:54 Warfarin (*Pbkc) 2 Mg Tablet PO Not Given On Hold: 05/24/25 13:48 DAILY@1700 [facility] Radiology Results: ITS Impressions Modified Barium Swallow 05/26/25 12:15 IMPRESSION: Oropharyngeal dysphagia with laryngeal penetration without aspiration. Please correlate with speech pathologist findings and specific feeding recommendations. Chest X-Ray 05/26/25 22:01 IMPRESSION: 1: Developing right upper lobe infiltrates, suspicious for pneumonia.. Labs Labs: Laboratory Results - last 24 hr 05/27/25 05:13 WBC 7.6 RBC 3.36 L Hgb 10.4 L Hct 34.9 L MCV 103.9 H MCH 31.0 MCHC 29.8 L RDW 15.1 H Plt Count 191 MPV 9.3 Immature Gran % (Auto) 0.3 Neut % (Auto) 54.5 Lymph % (Auto) 29.2 [place] % (Auto) 14.0 H Eos % (Auto) 1.5 Baso % (Auto) 0.5 Lymph # (Auto) 2.21 [place] # (Auto) 1.1 H Eos # (Auto) 0.1 Baso # (Auto) 0.0 Abs Immat Gran (auto) 0.02 Absolute Neuts (auto) 4.1 Absolute Nucleated RBC 0.000 Band Neutrophils % Not Reportable Nucleated RBC % 0.0 Platelet Estimate Adequate Macrocytosis 1+ Schistocytes None seen PT 28.7 H INR 2.8 Sodium 138 Potassium 3.2 L Chloride 104 Carbon Dioxide 30 Anion Gap 4 BUN 22 H Creatinine 1.11 H Estim Creat Clear Calc 37 Estimated GFR 47 L Glucose 143 H Calcium 8.2 L Total Bilirubin 0.2 AST 41 H ALT 25 Alkaline Phosphatase 56 Total Protein 6.1 L Albumin 3.0 L Quality VTE Prophylaxis VTE prophylaxis: mechanical ordered and pharmacologic ordered
[2025-05-27] MEDS: ONDANSETRON INJ 4 MG/2 ML VIAL IV PUSH (11:03)
[2025-05-27] MEDS: KCL 40 MEQ/D5/0.9% SOD CHL 1,000 ML 100 ML IV CONT (11:04)
--- NOTE | 2025-05-27 11:04 | PCSTNOTE ---
LEGAL RE[employer] attempted swallowing therapy at 10:45, but patient refused due to nausea. She asked to try again later.
[2025-05-27] MEDS: METOCLOPRAMIDE HCL 5 MG TABLET PO ×3 (11:05→21:15)
--- NOTE | 2025-05-27 11:31 | PCNFU ---
Nutrition Follow-Up Complete: Inadequate Oral Intake as related to CPOD exacerbation as evidenced by poor po intake reported. Goal: Meet estimated nutritional needs. Patient will continue current goal. Pt current nutrition is Minced and Moist, Level 5/Heart Healthy. Nocturnal tube feedings of Jevity 1.5 at 70 ml/hr. Last recorded weight is 76.4 kg Bowel Motility: Last reported BM 05/26 Labs Reviewed: Alb 3.0, Hct 34.9, Hgb 10.4, Glu 143 Meds Noted: Lasix, Reglan, Protonix. Skin: WNL Additional Notes: Spoke with patient and brother today regarding oral intake. She only drank juice for breakfast. She did save her yogurt. Tolerated her tube feeding of Jevity 1.5 at 50 ml/hr with plans for goal rate tonight at 70 ml/hr. Total Nutrition from tube feedin kcal/54 gm protein/638 ml water. Meeting 75% kcal needs and 89% protein needs. Po Intake encouraged. Monitor weight, labs, skin, diet orders, meds every Monday and Monday.
[2025-05-27] MEDS: POTASSIUM CHLORIDE INJ 40 MEQ in SODIUM CHLORIDE 0.9% IV 500 ML 130 MEQ IVPB (13:28)
--- NOTE | 2025-05-27 17:03 | WPDGIPROGNO ---
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 If she is able to get enough nutrition then we do not have to (2) Chronic anticoagulation: Code(s): Z79.01 - custodial (current) use of anticoagulants Status: Acute Assessment and Plan: coumadin on hold but inr still 2.8 (3) Acute exacerbation of CHF (congestive heart failure): Code(s): I50.9 - Heart failure, unspecified Status: Acute Assessment and Plan: improved (4) Community acquired pneumonia: Qualifiers: Laterality: right Lung location: upper lobe of lung Qualified Code(s): J18.9 - Pneumonia, unspecified organism Code(s): J18.9 - Pneumonia, unspecified organism Status: Acute Assessment and Plan: on abx Subjective Date/time seen: 05/27/25 17:03 Interval history: still poor oral intake- Speech recommended minced and moist, thickened liquid DHT in place to be used for extra feeding as needed Review of Systems Review of Systems: All systems reviewed & are unremarkable except as noted in HPI and below Exam Const: General: comfortable and no acute distress HENMT: Mouth: Yes moist mucous membranes Other: DHT in place Eyes: Sclera: sclerae normal Neck: Neck: supple Resp: Effort & Inspection: normal respiratory effort Cardio: Rate: regular rate Rhythm: regular rhythm GI: Inspection: non-distended GI Palp: Yes Soft to palpation and No Tenderness to palpation present (GI) Skin: General skin exam: normal color Neuro: Motor exam (neuro): 5/5 motor strength present throughout Extrem: General: no edema Other: Dyskinesia of the mouth and hands Psych: Mental Status: mental status grossly normal Objective Data Vital Signs Vital Signs: Vital Signs - 24 hr 05/26/25 19:46 05/26/25 20:00 05/26/25 20:00 Temperature 98.3 F Pulse Rate 71 73 Respiratory Rate 20 Blood Pressure 150/49 H Pulse Oximetry 95 Oxygen Delivery Room Air Fraction of Inspired Oxygen 05/26/25 20:19 05/26/25 23:46 05/27/25 00:00 Temperature 97.8 F Pulse Rate 73 71 Respiratory Rate 20 Blood Pressure 140/46 L Pulse Oximetry 95 94 Oxygen Delivery Room Air Fraction of Inspired Oxygen 05/27/25 04:00 05/27/25 04:17 05/27/25 09:56 Temperature 97.0 F L 98.4 F Pulse Rate 66 65 87 Respiratory Rate 20 16 Blood Pressure 121/45 L 122/51 L Pulse Oximetry 92 94 Oxygen Delivery Fraction of Inspired Oxygen 05/27/25 09:58 05/27/25 09:58 05/27/25 09:58 Temperature Pulse Rate 87 84 84 Respiratory Rate 16 Blood Pressure Pulse Oximetry 94 Oxygen Delivery Room Air Fraction of Inspired Oxygen 28 05/27/25 09:58 05/27/25 12:00 05/27/25 14:47 Temperature 97.6 F Pulse Rate 60 60 59 L Respiratory Rate 18 Blood Pressure 139/63 Pulse Oximetry 97 Oxygen Delivery Fraction of Inspired Oxygen 05/27/25 16:00 Temperature Pulse Rate 61 Respiratory Rate Blood Pressure Pulse Oximetry Oxygen Delivery Fraction of Inspired Oxygen Intake/Output Intake/Output: Intake & Output 05/24/25 05/25/25 05/26/25 05/27/25 23:59 23:59 23:59 23:59 Intake Total 400 840 410 0 Output Total 2 Balance 400 838 410 0 Meds/Results Medications: Active Medications Generic Name Dose Route Start Last Admin Trade Name Freq PRN Reason Stop Dose Admin Acetaminophen 650 mg 05/21/25 23:48 05/27/25 10:06 Acetaminophen 325 Mg Tablet PO 650 mg Q8H PRN Administration Mild Pain (1-3) or Fever Albuterol/Ipratropium 3 ml 05/22/25 16:56 05/22/25 17:10 Ipratropium 0.5 Mg/Albuterol Sulfate 2.5 Mg Ampul.Neb 3 Ml INHALATION 3 ml Q6HRT PRN Administration sob/wheezing Amiodarone HCl 200 mg 05/20/25 16:05 05/27/25 09:58 Amiodarone Hcl 200 Mg Tablet PO 200 mg DAILY STAN Administration Amoxicillin/Clavulanate Potassium 1 tablet 05/26/25 12:00 05/27/25 09:58 Amoxicillin/Clavulanate K 875-125 Mg Tab PO 05/27/25 21:01 1 tablet Q12HR STAN Administration Artificial Tears 1 drop 05/21/25 14:33 Artificial Tears Ophth Soln 15 Ml Bottle EACH EYE QID PRN Dry Eye(s) Carvedilol 25 mg 05/20/25 16:05 05/27/25 09:58 Carvedilol 12.5 Mg Tablet PO 25 mg DAILY STAN Administration Clonazepam 0.5 mg 05/20/25 17:00 05/27/25 16:58 Clonazepam (*Crx) 0.5 Mg Tablet PO 0.5 mg TID STAN Administration Donepezil HCl 10 mg 05/20/25 21:00 05/26/25 21:22 Donepezil Hcl 10 Mg Tablet PO 10 mg HS STAN Administration Famotidine 20 mg 05/21/25 09:09 05/22/25 16:45 Famotidine 20 Mg Tablet PO 20 mg Q12H PRN Administration Reflux Furosemide 40 mg 05/21/25 09:00 05/21/25 08:29 Furosemide 40 Mg Tablet PO 40 mg On Hold: 05/22/25 16:56 [email or web address] STAN Administration Hydralazine HCl 12.5 mg 05/27/25 17:00 05/27/25 17:00 Hydralazine 12.5 Mg Tablet PO Not Given TID STAN Levothyroxine Sodium 150 mcg 05/21/25 06:30 05/27/25 05:30 Levothyroxine Sodium 150 Mcg Tablet PO 150 mcg DAILY@0630 STAN Administration Loratadine 10 mg 05/21/25 09:30 05/27/25 09:58 Loratadine 10 Mg Tablet PO 10 mg QAM STAN Administration Metoclopramide HCl 5 mg 05/27/25 11:30 05/27/25 16:58 Metoclopramide Hcl 5 Mg Tablet PO 5 mg ACHS STAN Administration Ondansetron HCl 4 mg 05/22/25 16:29 05/27/25 11:03 Ondansetron Inj 4 Mg/2 Ml Vial IV PUSH 4 mg Q6H PRN Administration Nausea And Vomiting Pantoprazole Sodium 40 mg 05/24/25 10:50 05/27/25 09:57 Pantoprazole Sodium Iv 40 Mg Vial IV PUSH 40 mg QAM STAN Administration Rosuvastatin Calcium 40 mg 05/21/25 09:30 05/27/25 09:58 Rosuvastatin 20 Mg Tablet PO 40 mg DAILY STAN Administration Sodium Chloride 10 ml 05/20/25 14:00 05/27/25 13:09 Central Line Flush IV PUSH 10 ml Q8HR STAN Administration Sodium Chloride 10 ml 05/20/25 12:11 Central Line Flush IV PUSH PRN PRN with TPN bag changes Sodium Chloride 20 ml 05/20/25 12:11 05/25/25 05:14 Central Line Flush IV PUSH 20 ml PRN PRN Administration after blood draws Spironolactone 25 mg 05/20/25 16:05 05/23/25 07:57 Spironolactone 25 Mg Tablet PO Not Given On Hold: 05/23/25 13:47 DAILY STAN Trazodone HCl 150 mg 05/21/25 21:00 05/26/25 21:22 Trazodone Hcl 50 Mg Tablet PO 150 mg HS STAN Administration Venlafaxine HCl 37.5 mg 05/21/25 09:30 05/27/25 09:58 Venlafaxine Hcl Xr 37.5 Mg Cap PO 37.5 mg DAILY STAN Administration Warfarin Sodium 2 mg 05/21/25 17:00 05/23/25 14:54 Warfarin (*Pbkc) 2 Mg Tablet PO Not Given On Hold: 05/24/25 13:48 DAILY@1700 [facility] Radiology Results: ITS Impressions Modified Barium Swallow 05/26/25 12:15 IMPRESSION: Oropharyngeal dysphagia with laryngeal penetration without aspiration. Please correlate with speech pathologist findings and specific feeding recommendations. Chest X-Ray 05/26/25 22:01 IMPRESSION: 1: Developing right upper lobe infiltrates, suspicious for pneumonia.. Labs Labs: Laboratory Results - last 24 hr 05/27/25 05:13 WBC 7.6 RBC 3.36 L Hgb 10.4 L Hct 34.9 L MCV 103.9 H MCH 31.0 MCHC 29.8 L RDW 15.1 H Plt Count 191 MPV 9.3 Immature Gran % (Auto) 0.3 Neut % (Auto) 54.5 Lymph % (Auto) 29.2 [place] % (Auto) 14.0 H Eos % (Auto) 1.5 Baso % (Auto) 0.5 Lymph # (Auto) 2.21 [place] # (Auto) 1.1 H Eos # (Auto) 0.1 Baso # (Auto) 0.0 Abs Immat Gran (auto) 0.02 Absolute Neuts (auto) 4.1 Absolute Nucleated RBC 0.000 Band Neutrophils % Not Reportable Nucleated RBC % 0.0 Platelet Estimate Adequate Macrocytosis 1+ Schistocytes None seen PT 28.7 H INR 2.8 Sodium 138 Potassium 3.2 L Chloride 104 Carbon Dioxide 30 Anion Gap 4 BUN 22 H Creatinine 1.11 H Estim Creat Clear Calc 37 Estimated GFR 47 L Glucose 143 H Calcium 8.2 L Total Bilirubin 0.2 AST 41 H ALT 25 Alkaline Phosphatase 56 Total Protein 6.1 L Albumin 3.0 L
[2025-05-27] MEDS: DONEPEZIL HCL 10 MG TABLET PO (21:14)
[2025-05-28] VITALS (10 sets, daily range): BP systolic 137–150; BP diastolic 60–89; PULSE 61–78; RESP 18–22; TEMP 36.3–36.9; O2SAT 93–95
[2025-05-28] MEDS: METOCLOPRAMIDE HCL 5 MG TABLET PO ×4 (05:33→21:39)
[2025-05-28] MEDS: LEVOTHYROXINE SODIUM 150 MCG TABLET PO (05:33)
[2025-05-28] MEDS: CENTRAL LINE FLUSH 10 ML IV PUSH ×3 (05:34→21:39)
[2025-05-28 05:47] LABS: Hematocrit 35.6 % (37.0-47.0); Hemoglobin 10.6 g/dL (12.0-15.0); Immature Granulocyte Percent A 0.7 % (0-0.5); Lymphocytes Absolute Auto 1.42 K/mm3 (0.9-3.2); Mean Corpuscular HGB Conc 29.8 g/dl (32-36); Mean Corpuscular Hemoglobin 31.2 pg (26-34); Mean Corpuscular Volume 104.7 fl (80-100); Nucleated Red Blood Cells Absolute Auto 0.000 K/mm3 (0.0-0.012); Nucleated Red Blood Cells Perc 0.0 % (0.0-0.2); Platelet Count Result 175 k/mm3 (150-375); Red Blood Count 3.40 M/mm3 (4.2-5.4); White Blood Count 7.7 K/mm3 (4.5-10.0)
[2025-05-28 06:01] LABS: INR 1.5; Prothrombin Time 18.4 Seconds (11.1-14.7)
[2025-05-28 06:11] LABS: Alanine Aminotransferase 27 U/L (6-35); Albumin Level 2.9 g/dL (3.5-5.1); Alkaline Phosphatase 63 U/L (38-126); Anion Gap 2 mmol/L (4-12); Aspartate Amino Transferase 50 U/L (14-36); Bilirubin,Total 0.3 mg/dL (0.2-1.3); Blood Urea Nitrogen 21 mg/dL (7-17); Calcium 7.8 mg/dL (8.4-10.2); Carbon Dioxide 27 mmol/L (22-30); Chloride 108 mmol/L (98-107); Estimated CRCL calculation 42 ml/min; Estimated Glomerular Filt Rate 55; Glucose 142 mg/dL (65-110); Potassium 3.7 mmol/L (3.4-5.0); Sodium 137 mmol/L (137-145); Total Protein 6.1 g/dL (6.3-8.2)
[2025-05-28 07:09] LABS: Burr Cells Occasional; Hypochromasia Occasional; Macrocytosis 1+ (NORMAL); Schistocytes None Seen
[2025-05-28] MEDS: LORATADINE 10 MG TABLET PO (09:17)
[2025-05-28] MEDS: clonazePAM (*CRX) 0.5 MG TABLET PO ×3 (09:17→16:36)
[2025-05-28] MEDS: ROSUVASTATIN 20 MG TABLET 40 MG PO (09:17)
[2025-05-28] MEDS: PANTOPRAZOLE SODIUM IV 40 MG VIAL IV PUSH (09:17)
[2025-05-28] MEDS: hydrALAZINE 12.5 MG TABLET PO ×3 (09:17→16:36)
[2025-05-28] MEDS: VENLAFAXINE HCL XR 37.5 MG CAP PO (09:17)
[2025-05-28] MEDS: AMIODARONE HCL 200 MG TABLET PO (09:17)
--- NOTE | 2025-05-28 09:21 | PM.IMPN ---
Progress Note: A&P Assessment and Plan (1) CHF (congestive heart failure): Qualifiers: Heart failure chronicity: acute on chronic Heart failure type: combined systolic and diastolic Qualified Code(s): I50.43 - Acute on chronic combined systolic (congestive) and diastolic (congestive) heart failure Code(s): I50.9 - Heart failure, unspecified Status: Acute (2) Acute non-ST elevation myocardial infarction (NSTEMI): Code(s): I21.4 - Non-ST elevation (NSTEMI) myocardial infarction Status: Acute (3) Chronic kidney disease: Code(s): N18.9 - Chronic kidney disease, unspecified Status: Acute (4) Acute hypoxemic respiratory failure: Code(s): J96.01 - Acute respiratory failure with hypoxia Status: Acute (5) Community acquired pneumonia: Qualifiers: Laterality: right Lung location: upper lobe of lung Qualified Code(s): J18.9 - Pneumonia, unspecified organism Code(s): J18.9 - Pneumonia, unspecified organism Status: Acute (6) Dysphagia: Code(s): R13.10 - Dysphagia, unspecified Status: Acute Plan 79-year-old female presenting from home with shortness of breath. She is a fair historian and per chart review has a history of GERD, hypothyroidism, depression with anxiety, bipolar (followed by Dr. 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 Ceja), AFib on warfarin. She has had acute onset the shortness of breath. She reports this happens when she has a CHF exacerbation. She took 40 mg of Lasix and call EMS. EMS gave her a DuoNeb with improvement in her symptoms. She has had a cough productive of clear sputum. Saturating low on room air requiring 2 L nasal cannula. Admitted on 05/21/2025 diagnosed with acute hypoxic respiratory failure, community-acquired pneumonia. Acute hypoxic respiratory failure -likely due to pneumonia, placed on 2 L nasal cannula on admission, weaned off. Again placed on 2 L nasal cannula 05/22/2025 after she aspirated. Weaned off on 05/24/2025. -check quad viral screen negative -patient unsure if she has COPD, never a smoker. No wheezing, continue to monitor. --chest xray Aspiration pneumonia/pneumonitis -patient placed on ceftriaxone and azithromycin on admission. Asked the patient multiple times if she had choked at home, she has a history of dysphagia. She said no, nurse later told me the patient reports she has been choking. She is a poor historian. She has right lower lobe and right middle lobe rhonchi. Chest x-ray on admission 05/20/2025 demonstrating small airspace disease of the left lower lobe. -switch antibiotics from ceftriaxone and doxycycline to Unasyn. She is back on room air on 05/24/2025, pneumonia is improving however she is at risk for aspiration. Consider deescalation of antibiotics on 05/25/2025 she continue to improve. -no sputum to collect -mycoplasma IgM less than 770, Legionella and Streptococcus pneumoniae antigens negative. -reports her psychiatrist told her this will be the side effect of her antipsychotic medication. She does not want to change at this time. Advised to follow up with Psychiatry on this matter. She also has an appointment with ENT to investigate pooling of mucus drainage. -I reviewed the modified barium swallow on 05/21/2025 and spoke with the speech pathologist. They tried to work with her again on 05/23/2025, suggesting a feeding tube. Asked that they continue to work with her on her dysphagia, GI consulted as noted -aspiration precautions. --Monitoring off antibiotics Dysphagia -GI consulted -EGD but will need to wait until INR 1.5 (Coumadin held) Last dose 05/22. INR 1.5 today - NGT placed, Tolderating tube feeds overnight at goal -Will likely need PEG eventually: 2 day calorie count. Tube feed decision after that --Added reglan 5 TID before meals --GI consulted Sepsis without shock present on admission -WBC 90812 on admission with acute hypoxic respiratory failure due to aspiration pneumonia. Leukocytosis resolved, ARF resolved. -blood culture x2 on 05/20/2025, no growth at 48 hours. Systolic/diastolic heart failure with pacemaker/defibrillator -prior to admission she is on spironolactone 25 mg p.o. q.day, furosemide 40 mg p.o. Ahmet Wednesday López. Eating and drinking minimally so holding these, she is euvolemic. Continue to monitor with daily weights and intake/output. Elevated troponin -present on admission, peaked. Likely due to hypoxia. No chest pain. Demand ischemia/type 2 AR. AFib on warfarin -currently paced rhythm. -continue telemetry until pneumonia is resolved. INR on admission 2.8, down to 1.5. Continue [employer] SUPER[employer]OR Coumadin 2 mg p.o. at 5:00 p.m., daily INR. Coumadin on hold for GI procedures -Start lovenox for anticoagulation. Hold if plan for feeding tube CKD stage III -her baseline is around 1.1-1.2. Stable, Continue to monitor. She complained of suprapubic pain/pressure. Urinalysis not indicative of infection. She no longer complains of this. Essential hypertension: Spironolactone and furosemide are on hold. Continue [employer] Coreg 25 mg p.o. q.day. monitor. Hyperlipidemia: Continue [employer] rosuvastatin 40 mg p.o. q.day Depression with anxiety: Continue [employer] venlafaxine, trazodone, Klonopin, donepezil Hypothyroidism: Continue [employer] levothyroxine 150 mcg p.o. q.day GERD: Continue [employer] famotidine p.r.n. adding Protonix IV q.a.m. on 05/24/2025 for ulcer prophylaxis. ----- Patient lives at home with a friend/boyfriend. Uses a walker at baseline. She wishes to be full code. Continue PT/OT for weakness. Consult speech therapy for dysphagia and aspiration pneumonia. Saline lock IV. Heart healthy diet. Aspiration precautions Fall precautions, ambulate with assistance. Stable on medical floor. Time Spent With Patient Time: 57 minutes Subjective Date/time seen: 05/28/25 09:21 Interval history: Eating less than 50% but getting tube feeds overnight. Says she doesn't like the food here. Discussed with latex spooler and planning to hold tube feeds and do a 2 day calorie count before deciding if a permanent tube is needed. INR down to 1.5 today Paced rhythm, intermittently less than 60 but has a back up rate and is asymptomatic. Review of Systems Review of Systems: All other systems reviewed negative except as noted in HPI above. All systems reviewed & are unremarkable except as noted in HPI and below (Subjective) Exam Narrative: General: alert and comfortable Eyes: EOMI, PERRLA ENNT External ears normal, Neck is supple, no masses, Respiratory systems: Clear to auscultation. Increased work of breathing Cardiovascular S1, S2, normal rhythm, no murmur, rub, or gallop; no thrill or palpable murmurs on palpation. Gastrointestinal: soft, non-tender, and non-distended abdomen with no masses; BS present Skin: no rash, lesions, ulcerations, subcutaneous nodules or induration Musculoskeletal: no abnormality and no tenderness, normal ROM Neurologic: Alert and oriented x3, non focal Mental Status Exam: normal affect Objective Data Vital Signs Vital Signs: Vital Signs - 24 hr 05/27/25 09:56 05/27/25 09:58 05/27/25 09:58 Temperature 98.4 F Pulse Rate 87 87 84 Respiratory Rate 16 Blood Pressure 122/51 L Pulse Oximetry 94 Oxygen Delivery Fraction of Inspired Oxygen 05/27/25 09:58 05/27/25 09:58 05/27/25 12:00 Temperature Pulse Rate 84 60 60 Respiratory Rate 16 Blood Pressure Pulse Oximetry 94 Oxygen Delivery Room Air Fraction of Inspired Oxygen 28 05/27/25 14:47 05/27/25 16:00 05/27/25 20:00 Temperature 97.6 F Pulse Rate 59 L 61 Respiratory Rate 18 Blood Pressure 139/63 Pulse Oximetry 97 Oxygen Delivery Room Air Fraction of Inspired Oxygen 05/27/25 20:00 05/27/25 21:14 05/28/25 00:00 Temperature 98.5 F Pulse Rate 80 62 62 Respiratory Rate 20 Blood Pressure 144/60 H Pulse Oximetry 95 Oxygen Delivery Fraction of Inspired Oxygen 05/28/25 04:00 05/28/25 04:52 05/28/25 09:16 Temperature 98.1 F 97.5 F L Pulse Rate 72 78 78 Respiratory Rate 22 H 18 Blood Pressure 150/67 H 141/60 H Pulse Oximetry 95 95 Oxygen Delivery Fraction of Inspired Oxygen 05/28/25 09:17 05/28/25 09:18 Temperature Pulse Rate 78 78 Respiratory Rate Blood Pressure Pulse Oximetry Oxygen Delivery Fraction of Inspired Oxygen Intake/Output Intake/Output: Intake & Output 05/25/25 05/26/25 05/27/25 05/28/25 23:59 23:59 23:59 23:59 Intake Total 840 410 100 240 Output Total 2 Balance 838 410 100 240 Meds/Results Medications: Active Medications Generic Name Dose Route Start Last Admin Trade Name Freq PRN Reason Stop Dose Admin Acetaminophen 650 mg 05/21/25 23:48 05/27/25 10:06 Acetaminophen 325 Mg Tablet PO 650 mg Q8H PRN Administration Mild Pain (1-3) or Fever Albuterol/Ipratropium 3 ml 05/22/25 16:56 05/22/25 17:10 Ipratropium 0.5 Mg/Albuterol Sulfate 2.5 Mg Ampul.Neb 3 Ml INHALATION 3 ml Q6HRT PRN Administration sob/wheezing Amiodarone HCl 200 mg 05/20/25 16:05 05/28/25 09:17 Amiodarone Hcl 200 Mg Tablet PO 200 mg DAILY STAN Administration Artificial Tears 1 drop 05/21/25 14:33 Artificial Tears Ophth Soln 15 Ml Bottle EACH EYE QID PRN Dry Eye(s) Carvedilol 25 mg 05/20/25 16:05 05/28/25 09:18 Carvedilol 12.5 Mg Tablet PO Not Given DAILY STAN Clonazepam 0.5 mg 05/20/25 17:00 05/28/25 09:17 Clonazepam (*Crx) 0.5 Mg Tablet PO 0.5 mg TID STAN Administration Donepezil HCl 10 mg 05/20/25 21:00 05/27/25 21:14 Donepezil Hcl 10 Mg Tablet PO 10 mg HS STAN Administration Famotidine 20 mg 05/21/25 09:09 05/22/25 16:45 Famotidine 20 Mg Tablet PO 20 mg Q12H PRN Administration Reflux Furosemide 40 mg 05/21/25 09:00 05/21/25 08:29 Furosemide 40 Mg Tablet PO 40 mg On Hold: 05/22/25 16:56 [email or web address] STAN Administration Hydralazine HCl 12.5 mg 05/27/25 17:00 05/28/25 09:17 Hydralazine 12.5 Mg Tablet PO 12.5 mg TID STAN Administration Levothyroxine Sodium 150 mcg 05/21/25 06:30 05/28/25 05:33 Levothyroxine Sodium 150 Mcg Tablet PO 150 mcg DAILY@0630 STAN Administration Loratadine 10 mg 05/21/25 09:30 05/28/25 09:17 Loratadine 10 Mg Tablet PO 10 mg QAM STAN Administration Metoclopramide HCl 5 mg 05/27/25 11:30 05/28/25 05:33 Metoclopramide Hcl 5 Mg Tablet PO 5 mg ACHS STAN Administration Ondansetron HCl 4 mg 05/22/25 16:29 05/27/25 11:03 Ondansetron Inj 4 Mg/2 Ml Vial IV PUSH 4 mg Q6H PRN Administration Nausea And Vomiting Pantoprazole Sodium 40 mg 05/24/25 10:50 05/28/25 09:17 Pantoprazole Sodium Iv 40 Mg Vial IV PUSH 40 mg QAM STAN Administration Rosuvastatin Calcium 40 mg 05/21/25 09:30 05/28/25 09:17 Rosuvastatin 20 Mg Tablet PO 40 mg DAILY STAN Administration Sodium Chloride 10 ml 05/20/25 14:00 05/28/25 05:34 Central Line Flush IV PUSH 10 ml Q8HR STAN Administration Sodium Chloride 10 ml 05/20/25 12:11 Central Line Flush IV PUSH PRN PRN with TPN bag changes Sodium Chloride 20 ml 05/20/25 12:11 05/25/25 05:14 Central Line Flush IV PUSH 20 ml PRN PRN Administration after blood draws Spironolactone 25 mg 05/20/25 16:05 05/23/25 07:57 Spironolactone 25 Mg Tablet PO Not Given On Hold: 05/23/25 13:47 DAILY STAN Trazodone HCl 150 mg 05/21/25 21:00 05/27/25 21:15 Trazodone Hcl 50 Mg Tablet PO 150 mg HS STAN Administration Venlafaxine HCl 37.5 mg 05/21/25 09:30 05/28/25 09:17 Venlafaxine Hcl Xr 37.5 Mg Cap PO 37.5 mg DAILY STAN Administration Warfarin Sodium 2 mg 05/21/25 17:00 05/23/25 14:54 Warfarin (*Pbkc) 2 Mg Tablet PO Not Given On Hold: 05/24/25 13:48 DAILY@1700 [facility] Radiology Results: ITS Impressions Modified Barium Swallow 05/26/25 12:15 IMPRESSION: Oropharyngeal dysphagia with laryngeal penetration without aspiration. Please correlate with speech pathologist findings and specific feeding recommendations. Chest X-Ray 05/26/25 22:01 IMPRESSION: 1: Developing right upper lobe infiltrates, suspicious for pneumonia.. Labs Labs: Laboratory Results - last 24 hr 05/28/25 05:40 WBC 7.7 RBC 3.40 L Hgb 10.6 L Hct 35.6 L MCV 104.7 H MCH 31.2 MCHC 29.8 L RDW 15.4 H Plt Count 175 MPV 9.5 Immature Gran % (Auto) 0.7 H Neut % (Auto) 67.0 Lymph % (Auto) 18.5 [place] % (Auto) 11.7 H Eos % (Auto) 1.8 Baso % (Auto) 0.3 Lymph # (Auto) 1.42 [place] # (Auto) 0.9 H Eos # (Auto) 0.1 Baso # (Auto) 0.0 Abs Immat Gran (auto) 0.05 H Absolute Neuts (auto) 5.2 Absolute Nucleated RBC 0.000 Band Neutrophils % Not Reportable Nucleated RBC % 0.0 Platelet Estimate Adequate Hypochromasia Occasional Macrocytosis 1+ [place] Cells Occasional Schistocytes None seen PT 18.4 H D INR 1.5 Sodium 137 Potassium 3.7 Chloride 108 H Carbon Dioxide 27 Anion Gap 2 L BUN 21 H Creatinine 0.97 Estim Creat Clear Calc 42 Estimated GFR 55 L Glucose 142 H Calcium 7.8 L Total Bilirubin 0.3 AST 50 H ALT 27 Alkaline Phosphatase 63 Total Protein 6.1 L Albumin 2.9 L Quality VTE Prophylaxis VTE prophylaxis: mechanical ordered and pharmacologic ordered
--- NOTE | 2025-05-28 14:00 | PCDIET ---
Consult for Calorie Count. Spoke with hospitalist and nurse today regarding nutrition recommendations. Will initiate calorie count today. Tube feedings have been discontinued at this time. Will analyze meals for 1-2 days. Following.
[2025-05-28] MEDS: ONDANSETRON INJ 4 MG/2 ML VIAL IV PUSH (17:27)
--- NOTE | 2025-05-28 18:09 | P.PNGI_ITS ---
Progress Note: A&P Assessment and Plan (1) Dysphagia: Code(s): R13.10 - Dysphagia, unspecified Status: Acute Assessment and Plan: DHT is in place to be used if needs extra feeding- still poor oral intake- hayleynavin gigi MBS with oral dysphagia but no obvious aspiration, nursing staff development coordinator left recommendations she had EGD 2023 with no major findings, probably problem related to dysmotility/dyskinesia INR is today is 1.5 I spoke in the phone with her good friend, they all will make a decision if would like to pursue with PEG or just to continue with oral intake however is not adequate will check on patient again tomorrow keep holding coumadin until patient makes final decision (2) Chronic anticoagulation: Code(s): Z79.01 - 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 anticoagulants Status: Acute Assessment and Plan: coumadin on hold (3) Acute exacerbation of CHF (congestive heart failure): Code(s): I50.9 - Heart failure, unspecified Status: Acute Assessment and Plan: improved (4) Community acquired pneumonia: Qualifiers: Laterality: right Lung location: upper lobe of lung Qualified Code(s): J18.9 - Pneumonia, unspecified organism Code(s): J18.9 - Pneumonia, unspecified organism Status: Acute Assessment and Plan: on abx Subjective Date/time seen: 05/28/25 18:09 Interval history: she is eating special diet but still suboptimal intake DHT in place Review of Systems Review of Systems: All systems reviewed & are unremarkable except as noted in HPI and below Exam Const: General: comfortable and no acute distress HENMT: Mouth: Yes moist mucous membranes Other: DHT in place Eyes: Sclera: sclerae normal Neck: Neck: supple Resp: Effort & Inspection: normal respiratory effort Cardio: Rate: regular rate Rhythm: regular rhythm GI: Inspection: non-distended GI Palp: Yes Soft to palpation and No Tenderness to palpation present (GI) Skin: General skin exam: normal color Neuro: Motor exam (neuro): 5/5 motor strength present throughout Extrem: General: no edema Other: Dyskinesia of the mouth and hands Psych: Mental Status: mental status grossly normal Objective Data Vital Signs Vital Signs: Vital Signs - 24 hr 05/27/25 20:00 05/27/25 20:00 05/27/25 21:14 Temperature 98.5 F Pulse Rate 80 62 Respiratory Rate 20 Blood Pressure 144/60 H Pulse Oximetry 95 Oxygen Delivery Room Air Fraction of Inspired Oxygen 05/28/25 00:00 05/28/25 04:00 05/28/25 04:52 Temperature 98.1 F Pulse Rate 62 72 78 Respiratory Rate 22 H Blood Pressure 150/67 H Pulse Oximetry 95 Oxygen Delivery Fraction of Inspired Oxygen 05/28/25 08:00 05/28/25 09:16 05/28/25 09:17 Temperature 97.5 F L Pulse Rate 61 78 78 Respiratory Rate 18 Blood Pressure 141/60 H Pulse Oximetry 95 Oxygen Delivery Fraction of Inspired Oxygen 05/28/25 09:17 05/28/25 09:18 Temperature Pulse Rate 78 78 Respiratory Rate 18 Blood Pressure Pulse Oximetry 95 Oxygen Delivery Room Air Fraction of Inspired Oxygen 28 Intake/Output Intake/Output: Intake & Output 05/25/25 05/26/25 05/27/25 05/28/25 23:59 23:59 23:59 23:59 Intake Total 840 410 100 480 Output Total 2 Balance 838 410 100 480 Meds/Results Medications: Active Medications Generic Name Dose Route Start Last Admin Trade Name Freq PRN Reason Stop Dose Admin Acetaminophen 650 mg 05/21/25 23:48 05/27/25 10:06 Acetaminophen 325 Mg Tablet PO 650 mg Q8H PRN Administration Mild Pain (1-3) or Fever Albuterol/Ipratropium 3 ml 05/22/25 16:56 05/22/25 17:10 Ipratropium 0.5 Mg/Albuterol Sulfate 2.5 Mg Ampul.Neb 3 Ml INHALATION 3 ml Q6HRT PRN Administration sob/wheezing Amiodarone HCl 200 mg 05/20/25 16:05 05/28/25 09:17 Amiodarone Hcl 200 Mg Tablet PO 200 mg DAILY STAN Administration Artificial Tears 1 drop 05/21/25 14:33 Artificial Tears Ophth Soln 15 Ml Bottle EACH EYE QID PRN Dry Eye(s) Carvedilol 25 mg 05/20/25 16:05 05/28/25 09:18 Carvedilol 12.5 Mg Tablet PO Not Given DAILY STAN Clonazepam 0.5 mg 05/20/25 17:00 05/28/25 16:36 Clonazepam (*Crx) 0.5 Mg Tablet PO 0.5 mg TID STAN Administration Donepezil HCl 10 mg 05/20/25 21:00 05/27/25 21:14 Donepezil Hcl 10 Mg Tablet PO 10 mg HS STAN Administration Enoxaparin Sodium 75 mg 05/28/25 21:00 Enoxaparin 80 Mg/0.8 Ml Syringe SUB-Q Q12HR STAN Famotidine 20 mg 05/21/25 09:09 05/22/25 16:45 Famotidine 20 Mg Tablet PO 20 mg Q12H PRN Administration Reflux Furosemide 40 mg 05/21/25 09:00 05/21/25 08:29 Furosemide 40 Mg Tablet PO 40 mg On Hold: 05/22/25 16:56 MoWeFr@0900 STAN Administration Hydralazine HCl 12.5 mg 05/27/25 17:00 05/28/25 16:36 Hydralazine 12.5 Mg Tablet PO 12.5 mg TID STAN Administration Levothyroxine Sodium 150 mcg 05/21/25 06:30 05/28/25 05:33 Levothyroxine Sodium 150 Mcg Tablet PO 150 mcg DAILY@0630 STAN Administration Loratadine 10 mg 05/21/25 09:30 05/28/25 09:17 Loratadine 10 Mg Tablet PO 10 mg QAM STAN Administration Metoclopramide HCl 5 mg 05/27/25 11:30 05/28/25 16:37 Metoclopramide Hcl 5 Mg Tablet PO 5 mg ACHS STAN Administration Ondansetron HCl 4 mg 05/22/25 16:29 05/28/25 17:27 Ondansetron Inj 4 Mg/2 Ml Vial IV PUSH 4 mg Q6H PRN Administration Nausea And Vomiting Pantoprazole Sodium 40 mg 05/24/25 10:50 05/28/25 09:17 Pantoprazole Sodium Iv 40 Mg Vial IV PUSH 40 mg QAM STAN Administration Rosuvastatin Calcium 40 mg 05/21/25 09:30 05/28/25 09:17 Rosuvastatin 20 Mg Tablet PO 40 mg DAILY STAN Administration Sodium Chloride 10 ml 05/20/25 14:00 05/28/25 17:28 Central Line Flush IV PUSH 10 ml Q8HR STAN Administration Sodium Chloride 10 ml 05/20/25 12:11 Central Line Flush IV PUSH PRN PRN with TPN bag changes Sodium Chloride 20 ml 05/20/25 12:11 05/25/25 05:14 Central Line Flush IV PUSH 20 ml PRN PRN Administration after blood draws Spironolactone 25 mg 05/20/25 16:05 05/23/25 07:57 Spironolactone 25 Mg Tablet PO Not Given On Hold: 05/23/25 13:47 DAILY [facility] Trazodone HCl 150 mg 05/21/25 21:00 05/27/25 21:15 Trazodone Hcl 50 Mg Tablet PO 150 mg HS SATN Administration Venlafaxine HCl 37.5 mg 05/21/25 09:30 05/28/25 09:17 Venlafaxine Hcl Xr 37.5 Mg Cap PO 37.5 mg DAILY STAN Administration Warfarin Sodium 2 mg 05/21/25 17:00 05/23/25 14:54 Warfarin (*Pbkc) 2 Mg Tablet PO Not Given On Hold: 05/24/25 13:48 DAILY@1700 [facility] Radiology Results: ITS Impressions Modified Barium Swallow 05/26/25 12:15 IMPRESSION: Oropharyngeal dysphagia with laryngeal penetration without aspiration. Please correlate with speech pathologist findings and specific feeding recommendations. Chest X-Ray 05/26/25 22:01 IMPRESSION: 1: Developing right upper lobe infiltrates, suspicious for pneumonia.. Labs Labs: Laboratory Results - last 24 hr 05/28/25 05:40 WBC 7.7 RBC 3.40 L Hgb 10.6 L Hct 35.6 L MCV 104.7 H MCH 31.2 MCHC 29.8 L RDW 15.4 H Plt Count 175 MPV 9.5 Immature Gran % (Auto) 0.7 H Neut % (Auto) 67.0 Lymph % (Auto) 18.5 [place] % (Auto) 11.7 H Eos % (Auto) 1.8 Baso % (Auto) 0.3 Lymph # (Auto) 1.42 [place] # (Auto) 0.9 H Eos # (Auto) 0.1 Baso # (Auto) 0.0 Abs Immat Gran (auto) 0.05 H Absolute Neuts (auto) 5.2 Absolute Nucleated RBC 0.000 Band Neutrophils % Not Reportable Nucleated RBC % 0.0 Platelet Estimate Adequate Hypochromasia Occasional Macrocytosis 1+ [place] Cells Occasional Schistocytes None seen PT 18.4 H D INR 1.5 Sodium 137 Potassium 3.7 Chloride 108 H Carbon Dioxide 27 Anion Gap 2 L BUN 21 H Creatinine 0.97 Estim Creat Clear Calc 42 Estimated GFR 55 L Glucose 142 H Calcium 7.8 L Total Bilirubin 0.3 AST 50 H ALT 27 Alkaline Phosphatase 63 Total Protein 6.1 L Albumin 2.9 L
[2025-05-28] MEDS: ACETAMINOPHEN 325 MG TABLET 650 MG PO (21:37)
[2025-05-28] MEDS: DONEPEZIL HCL 10 MG TABLET PO (21:37)
[2025-05-29 04:50] VITALS: BP 158/66; PULSE 86; RESP 17; TEMP 36.7; O2SAT 95
[2025-05-29] MEDS: CENTRAL LINE FLUSH 10 ML IV PUSH ×3 (05:38→21:24)
[2025-05-29] MEDS: LEVOTHYROXINE SODIUM 150 MCG TABLET PO (05:38)
[2025-05-29] MEDS: METOCLOPRAMIDE HCL 5 MG TABLET PO ×4 (05:38→21:23)
[2025-05-29 05:47] LABS: Hematocrit 32.3 % (37.0-47.0); Hemoglobin 9.5 g/dL (12.0-15.0); Immature Granulocyte Percent A 0.5 % (0-0.5); Lymphocytes Absolute Auto 1.85 K/mm3 (0.9-3.2); Mean Corpuscular HGB Conc 29.4 g/dl (32-36); Mean Corpuscular Hemoglobin 30.6 pg (26-34); Mean Corpuscular Volume 104.2 fl (80-100); Nucleated Red Blood Cells Absolute Auto 0.000 K/mm3 (0.0-0.012); Nucleated Red Blood Cells Perc 0.0 % (0.0-0.2); Platelet Count Result 157 k/mm3 (150-375); Red Blood Count 3.10 M/mm3 (4.2-5.4); White Blood Count 5.6 K/mm3 (4.5-10.0)
[2025-05-29 06:00] LABS: Alanine Aminotransferase 23 U/L (6-35); Albumin Level 2.9 g/dL (3.5-5.1); Alkaline Phosphatase 56 U/L (38-126); Anion Gap 0 mmol/L (4-12); Aspartate Amino Transferase 29 U/L (14-36); Bilirubin,Total 0.3 mg/dL (0.2-1.3); Blood Urea Nitrogen 14 mg/dL (7-17); Calcium 8.1 mg/dL (8.4-10.2); Carbon Dioxide 29 mmol/L (22-30); Chloride 107 mmol/L (98-107); Estimated CRCL calculation 43 ml/min; Estimated Glomerular Filt Rate 57; Glucose 84 mg/dL (65-110); Potassium 3.7 mmol/L (3.4-5.0); Sodium 136 mmol/L (137-145); Total Protein 5.8 g/dL (6.3-8.2)
[2025-05-29 06:11] LABS: INR 1.3; Prothrombin Time 15.8 Seconds (11.1-14.7)
[2025-05-29 06:17] LABS: Burr Cells Occasional; Hypochromasia Occasional; Ovalocytes Occasional; Polychromasia Occasional; Schistocytes None Seen
[2025-05-29] MEDS: ACETAMINOPHEN 325 MG TABLET 650 MG PO (10:09)
[2025-05-29 10:10] VITALS: PULSE 77
[2025-05-29] MEDS: ROSUVASTATIN 20 MG TABLET 40 MG PO (10:10)
[2025-05-29 10:12] VITALS: PULSE 77
[2025-05-29] MEDS: hydrALAZINE 12.5 MG TABLET PO ×3 (10:12→16:49)
[2025-05-29] MEDS: FAMOTIDINE 20 MG TABLET PO (10:12)
[2025-05-29] MEDS: LORATADINE 10 MG TABLET PO (10:12)
[2025-05-29] MEDS: AMIODARONE HCL 200 MG TABLET PO (10:12)
[2025-05-29] MEDS: VENLAFAXINE HCL XR 37.5 MG CAP PO (10:12)
[2025-05-29] MEDS: clonazePAM (*CRX) 0.5 MG TABLET PO ×3 (10:12→16:49)
[2025-05-29] MEDS: PANTOPRAZOLE SODIUM IV 40 MG VIAL IV PUSH (10:15)
[2025-05-29] MEDS: ENOXAPARIN 80 MG/0.8 ML SYRINGE 75 MG SUB-Q ×2 (10:15→21:23)
[2025-05-29] MEDS: ONDANSETRON INJ 4 MG/2 ML VIAL IV PUSH (11:12)
--- NOTE | 2025-05-29 11:30 | PCPTNOTE ---
Attempted to see patient this morning for PT, however patient refused due to feeling nauseated. PT will continue to follow per plan of care.
--- NOTE | 2025-05-29 15:33 | P.PNIM_ITS ---
Progress Note: A&P Assessment and Plan (1) CHF (congestive heart failure): Qualifiers: Heart failure chronicity: acute on chronic Heart failure type: combined systolic and diastolic Qualified Code(s): I50.43 - Acute on chronic combined systolic (congestive) and diastolic (congestive) heart failure Code(s): I50.9 - Heart failure, unspecified Status: Acute (2) Acute non-ST elevation myocardial infarction (NSTEMI): Code(s): I21.4 - Non-ST elevation (NSTEMI) myocardial infarction Status: Acute (3) Chronic kidney disease: Code(s): N18.9 - Chronic kidney disease, unspecified Status: Acute (4) Acute hypoxemic respiratory failure: Code(s): J96.01 - Acute respiratory failure with hypoxia Status: Acute (5) Community acquired pneumonia: Qualifiers: Laterality: right Lung location: upper lobe of lung Qualified Code(s): J18.9 - Pneumonia, unspecified organism Code(s): J18.9 - Pneumonia, unspecified organism Status: Acute (6) Dysphagia: Code(s): R13.10 - Dysphagia, unspecified Status: Acute Plan 79-year-old female presenting from home with shortness of breath. She is a fair historian and per chart review has a history of GERD, hypothyroidism, depression with anxiety, bipolar (followed by Dr. 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 Ceja), AFib on warfarin. She has had acute onset the shortness of breath. She reports this happens when she has a CHF exacerbation. She took 40 mg of Lasix and call EMS. EMS gave her a DuoNeb with improvement in her symptoms. She has had a cough productive of clear sputum. Saturating low on room air requiring 2 L nasal cannula. Admitted on 05/21/2025 diagnosed with acute hypoxic respiratory failure, community- acquired pneumonia. Acute hypoxic respiratory failure -likely due to pneumonia, placed on 2 L nasal cannula on admission, weaned off. Again placed on 2 L nasal cannula 05/22/2025 after she aspirated. Weaned off on 05/24/2025. -check quad viral screen negative -patient unsure if she has COPD, never a smoker. No wheezing, continue to monitor. 05/26 Chest x ray with developing RUL infiltrates Aspiration pneumonia/pneumonitis Patient placed on ceftriaxone and azithromycin on admission. Asked the patient multiple times if she had choked at home, she has a history of dysphagia. She said no, nurse later told me the patient reports she has been choking. She is a poor historian. She has right lower lobe and right middle lobe rhonchi. Chest x-ray on admission 05/20/2025 demonstrating small airspace disease of the left lower lobe. -switch antibiotics from ceftriaxone and doxycycline to Unasyn. She is back on room air on 05/24/2025, pneumonia is improving however she is at risk for aspiration. Consider deescalation of antibiotics on 05/25/2025 she continue to improve. -no sputum to collect -mycoplasma IgM less than 770, Legionella and Streptococcus pneumoniae antigens negative. Reports her psychiatrist told her this will be the side effect of her antipsychotic medication. She does not want to change at this time. Advised to follow up with Psychiatry on this matter. She also has an appointment with ENT to investigate pooling of mucus drainage. 05/21 Barium swallow: 05/26 Barium swallow: Oropharyngeal dysphagia with laryngeal penetration without aspiration. Please correlate with speech pathologist findings and specific feeding recommendations. PLAN --Speech pathologist recommended minced & moist level 5 --Monitoring off antibiotics Dysphagia Still having nausea -EGD but will need to wait until INR 1.5 (Coumadin held) Last dose 05/22. INR 1.3 today - NGT placed, Tolerating tube feeds overnight at goal -May need PEG eventually: 2 day calorie count. Tube feed decision after that. Patient initially agreeable to have it tomorrow but would like the weekend to consider and try to increase her intake --Added reglan 5 TID before meals --GI consulted Sepsis without shock present on admission -WBC [id number] on admission with acute hypoxic respiratory failure due to aspiration pneumonia. Leukocytosis resolved, ARF resolved. -blood culture x2 on 05/20/2025, no growth at 48 hours. Systolic/diastolic heart failure with pacemaker/defibrillator -prior to admission she is on spironolactone 25 mg p.o. q.day, furosemide 40 mg p.o. Monday. Eating and drinking minimally so holding these, she is euvolemic. Continue to monitor with daily weights and intake/output. Elevated troponin -present on admission, peaked. Likely due to hypoxia. No chest pain. Demand ischemia/type 2 [place]. AFib on warfarin -currently paced rhythm. -continue telemetry until pneumonia is resolved. INR on admission 2.8, down to 1.3. Prior to admission Coumadin 2 mg p.o. at 5:00 p.m., daily INR. Coumadin on hold for GI procedures -Continue therapeutic lovenox for anticoagulation. Hold if plan for feeding tube CKD stage III -her baseline is around 1.1-1.2. Stable, Continue to monitor. She complained of suprapubic pain/pressure. Urinalysis not indicative of infection. She no longer complains of this. Essential hypertension: Spironolactone and furosemide are on hold. Continue home Coreg 25 mg p.o. q.day. monitor. Hyperlipidemia: Continue home rosuvastatin 40 mg p.o. q.day Depression with anxiety: Continue home venlafaxine, trazodone, Klonopin, donepezil Hypothyroidism: Continue home levothyroxine 150 mcg p.o. q.day GERD: Continue home famotidine p.r.n. adding Protonix IV q.a.m. on 05/24/2025 for ulcer prophylaxis. ----- Patient lives at home with a friend/boyfriend. Uses a walker at baseline. She wishes to be full code. Continue PT/OT for weakness. Consult speech therapy for dysphagia and aspiration pneumonia. Saline lock IV. Heart healthy diet. Aspiration precautions Fall precautions, ambulate with assistance. Stable on medical floor. Subjective Date/time seen: 05/29/25 15:33 Interval history: Ate well today. Held feeds overnight for a better assessment Had spoken to GI about a feeding tube tomorrow but changed her mind and wants to wait until Monday INR 1.3. Holding coumadin. Changed to therapeutic lovenox Review of Systems Review of Systems: All other systems reviewed negative except as noted in HPI above. All systems reviewed & are unremarkable except as noted in HPI and below (Subjective) Exam Narrative: General: alert and comfortable Eyes: EOMI, PERRLA ENT: Dobhoff in nare External ears normal, Neck is supple, no masses, Respiratory systems: Clear to auscultation. Increased work of breathing Cardiovascular S1, S2, normal rhythm, no murmur, rub, or gallop; no thrill or palpable murmurs on palpation. Gastrointestinal: soft, non-tender, and non-distended abdomen with no masses; BS present Skin: no rash, lesions, ulcerations, subcutaneous nodules or induration Musculoskeletal: no abnormality and no tenderness, normal ROM Neurologic: Alert and oriented x3, non focal Mental Status Exam: normal affect Objective Data Vital Signs Vital Signs: Vital Signs - 24 hr 05/28/25 19:04 05/28/25 19:57 05/28/25 20:00 Temperature 97.4 F L 98.4 F Pulse Rate 78 77 Respiratory Rate 20 18 Blood Pressure 139/60 137/89 Pulse Oximetry 94 95 Oxygen Delivery Room Air Fraction of Inspired Oxygen 05/28/25 20:41 05/29/25 04:50 05/29/25 10:00 Temperature 98.1 F Pulse Rate 70 86 Respiratory Rate 17 Blood Pressure 158/66 H Pulse Oximetry 93 95 Oxygen Delivery Room Air Room Air Fraction of Inspired Oxygen 21 05/29/25 10:10 05/29/25 10:12 Temperature Pulse Rate 77 77 Respiratory Rate Blood Pressure Pulse Oximetry Oxygen Delivery Fraction of Inspired Oxygen Intake/Output Intake/Output: Intake & Output 05/26/25 05/27/25 05/28/25 05/29/25 23:59 23:59 23:59 23:59 Intake Total 410 100 600 290 Balance 410 100 600 290 Meds/Results Medications: Active Medications Generic Name Dose Route Start Last Admin Trade Name Freq PRN Reason Stop Dose Admin Acetaminophen 650 mg 05/21/25 23:48 05/29/25 10:09 Acetaminophen 325 Mg Tablet PO 650 mg Q8H PRN Administration Mild Pain (1-3) or Fever Albuterol/Ipratropium 3 ml 05/22/25 16:56 05/22/25 17:10 Ipratropium 0.5 Mg/Albuterol Sulfate 2.5 Mg Ampul.Neb 3 Ml INHALATION 3 ml Q6HRT PRN Administration sob/wheezing Amiodarone HCl 200 mg 05/20/25 16:05 05/29/25 10:12 Amiodarone Hcl 200 Mg Tablet PO 200 mg DAILY STAN Administration Artificial Tears 1 drop 05/21/25 14:33 Artificial Tears Ophth Soln 15 Ml Bottle EACH EYE QID PRN Dry Eye(s) Carvedilol 25 mg 05/20/25 16:05 05/29/25 10:10 Carvedilol 12.5 Mg Tablet PO 25 mg DAILY STAN Administration Clonazepam 0.5 mg 05/20/25 17:00 05/29/25 14:00 Clonazepam (*Crx) 0.5 Mg Tablet PO 0.5 mg TID STAN Administration Donepezil HCl 10 mg 05/20/25 21:00 05/28/25 21:37 Donepezil Hcl 10 Mg Tablet PO 10 mg HS STAN Administration Enoxaparin Sodium 75 mg 05/28/25 21:00 05/29/25 10:15 Enoxaparin 80 Mg/0.8 Ml Syringe SUB-Q 75 mg Q12HR STAN Administration Famotidine 20 mg 05/21/25 09:09 05/29/25 10:12 Famotidine 20 Mg Tablet PO 20 mg Q12H PRN Administration Reflux Furosemide 40 mg 05/21/25 09:00 05/21/25 08:29 Furosemide 40 Mg Tablet PO 40 mg On Hold: 05/22/25 16:56 MoWeFr@0900 STAN Administration Hydralazine HCl 12.5 mg 05/27/25 17:00 05/29/25 14:00 Hydralazine 12.5 Mg Tablet PO 12.5 mg TID STAN Administration Levothyroxine Sodium 150 mcg 05/21/25 06:30 05/29/25 05:38 Levothyroxine Sodium 150 Mcg Tablet PO 150 mcg DAILY@0630 STAN Administration Loratadine 10 mg 05/21/25 09:30 05/29/25 10:12 Loratadine 10 Mg Tablet PO 10 mg QAM STAN Administration Metoclopramide HCl 5 mg 05/27/25 11:30 05/29/25 10:23 Metoclopramide Hcl 5 Mg Tablet PO 5 mg ACHS STAN Administration Ondansetron HCl 4 mg 05/22/25 16:29 05/29/25 11:12 Ondansetron Inj 4 Mg/2 Ml Vial IV PUSH 4 mg Q6H PRN Administration Nausea And Vomiting Pantoprazole Sodium 40 mg 05/24/25 10:50 05/29/25 10:15 Pantoprazole Sodium Iv 40 Mg Vial IV PUSH 40 mg QAM STAN Administration Rosuvastatin Calcium 40 mg 05/21/25 09:30 05/29/25 10:10 Rosuvastatin 20 Mg Tablet PO 40 mg DAILY STAN Administration Sodium Chloride 10 ml 05/20/25 14:00 05/29/25 11:14 Central Line Flush IV PUSH 10 ml Q8HR STAN Administration Sodium Chloride 10 ml 05/20/25 12:11 Central Line Flush IV PUSH PRN PRN with TPN bag changes Sodium Chloride 20 ml 05/20/25 12:11 05/25/25 05:14 Central Line Flush IV PUSH 20 ml PRN PRN Administration after blood draws Spironolactone 25 mg 05/20/25 16:05 05/23/25 07:57 Spironolactone 25 Mg Tablet PO Not Given On Hold: 05/23/25 13:47 DAILY STAN Trazodone HCl 150 mg 05/21/25 21:00 05/28/25 21:37 Trazodone Hcl 50 Mg Tablet PO 150 mg HS STAN Administration Venlafaxine HCl 37.5 mg 05/21/25 09:30 05/29/25 10:12 Venlafaxine Hcl Xr 37.5 Mg Cap PO 37.5 mg DAILY STAN Administration Warfarin Sodium 2 mg 05/21/25 17:00 05/23/25 14:54 Warfarin (*Pbkc) 2 Mg Tablet PO Not Given On Hold: 05/24/25 13:48 DAILY@1700 [facility] Radiology Results: ITS Impressions Modified Barium Swallow 05/26/25 12:15 IMPRESSION: Oropharyngeal dysphagia with laryngeal penetration without aspira tion. Please correlate with speech pathologist findings and specific feeding recommendations. Chest X-Ray 05/26/25 22:01 IMPRESSION: 1: Developing right upper lobe infiltrates, suspicious for pneumonia.. Labs Labs: Laboratory Results - last 24 hr 05/29/25 05:38 WBC 5.6 RBC 3.10 L Hgb 9.5 L Hct 32.3 L MCV 104.2 H MCH 30.6 MCHC 29.4 L RDW 15.2 H Plt Count 157 MPV 9.6 Immature Gran % (Auto) 0.5 Neut % (Auto) 48.7 Lymph % (Auto) 33.2 [place] % (Auto) 13.8 H Eos % (Auto) 3.4 Baso % (Auto) 0.4 Lymph # (Auto) 1.85 [place] # (Auto) 0.8 H Eos # (Auto) 0.2 Baso # (Auto) 0.0 Abs Immat Gran (auto) 0.03 Absolute Neuts (auto) 2.7 Absolute Nucleated RBC 0.000 Band Neutrophils % Not Reportable Nucleated RBC % 0.0 Platelet Estimate Adequate Polychromasia Occasional Hypochromasia Occasional Ovalocytes Occasional [place] Cells Occasional Schistocytes None seen PT 15.8 H INR 1.3 Sodium 136 L Potassium 3.7 Chloride 107 Carbon Dioxide 29 Anion Gap 0 L BUN 14 D Creatinine 0.94 Estim Creat Clear Calc 43 Estimated GFR 57 L Glucose 84 Calcium 8.1 L Total Bilirubin 0.3 AST 29 ALT 23 Alkaline Phosphatase 56 Total Protein 5.8 L Albumin 2.9 L Quality VTE Prophylaxis VTE prophylaxis: mechanical ordered and pharmacologic ordered Hospitalist MIPS Advance Care Plan I have confirmed that the patient's Advanced Care Plan is present, code status is documented, or surrogate decision maker is listed in patient medical record.: Yes Medication Reconciliation I have utilized all available resources to obtain, update and review the patients current medications (includes all prescriptions, OTC, herbals, cannabis, and nutritional supplements).: Yes
[2025-05-29 15:42] VITALS: BP 131/50; PULSE 60; RESP 16; TEMP 37.1; O2SAT 97
--- NOTE | 2025-05-29 17:37 | P.PNGI_ITS ---
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 it seems that she has been eating more- special diet to prevent aspiration- she is unsure if would like to have peg placement agree with calorie count, if optimal or patient does not wish to proceed with PEG then she will let us know keep holding coumadin until patient makes final decision (2) Chronic anticoagulation: Code(s): 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 Status: Acute Assessment and Plan: coumadin on hold (3) Acute exacerbation of CHF (congestive heart failure): Code(s): I50.9 - Heart failure, unspecified Status: Acute Assessment and Plan: improved (4) Community acquired pneumonia: Qualifiers: Laterality: right Lung location: upper lobe of lung Qualified Code(s): J18.9 - Pneumonia, unspecified organism Code(s): J18.9 - Pneumonia, unspecified organism Status: Acute Assessment and Plan: on abx Subjective Date/time seen: 05/29/25 17:37 Interval history: she has been eating more- still not ideal she is unsure about peg and would like to think about it Review of Systems Review of Systems: All systems reviewed & are unremarkable except as noted in HPI and below Exam Const: General: comfortable and no acute distress HENMT: Mouth: Yes moist mucous membranes Other: DHT in place Eyes: Sclera: sclerae normal Neck: Neck: supple Resp: Effort & Inspection: normal respiratory effort Cardio: Rate: regular rate Rhythm: regular rhythm GI: Inspection: non-distended GI Palp: Yes Soft to palpation and No Tenderness to palpation present (GI) Skin: General skin exam: normal color Neuro: Motor exam (neuro): 5/5 motor strength present throughout Extrem: General: no edema Other: Dyskinesia of the mouth and hands Psych: Mental Status: mental status grossly normal Objective Data Vital Signs Vital Signs: Vital Signs - 24 hr 05/28/25 19:04 05/28/25 19:57 05/28/25 20:00 Temperature 97.4 F L 98.4 F Pulse Rate 78 77 Respiratory Rate 20 18 Blood Pressure 139/60 137/89 Pulse Oximetry 94 95 Oxygen Delivery Room Air Fraction of Inspired Oxygen 05/28/25 20:41 05/29/25 04:50 05/29/25 10:00 Temperature 98.1 F Pulse Rate 70 86 Respiratory Rate 17 Blood Pressure 158/66 H Pulse Oximetry 93 95 Oxygen Delivery Room Air Room Air Fraction of Inspired Oxygen 21 05/29/25 10:10 05/29/25 10:12 05/29/25 15:42 Temperature 98.8 F Pulse Rate 77 77 60 Respiratory Rate 16 Blood Pressure 131/50 L Pulse Oximetry 97 Oxygen Delivery Fraction of Inspired Oxygen Intake/Output Intake/Output: Intake & Output 05/26/25 05/27/25 05/28/25 05/29/25 23:59 23:59 23:59 23:59 Intake Total 410 100 600 530 Balance 410 100 600 530 Meds/Results Medications: Active Medications Generic Name Dose Route Start Last Admin Trade Name Freq PRN Reason Stop Dose Admin Acetaminophen 650 mg 05/21/25 23:48 05/29/25 10:09 Acetaminophen 325 Mg Tablet PO 650 mg Q8H PRN Administration Mild Pain (1-3) or Fever Albuterol/Ipratropium 3 ml 05/22/25 16:56 05/22/25 17:10 Ipratropium 0.5 Mg/Albuterol Sulfate 2.5 Mg Ampul.Neb 3 Ml INHALATION 3 ml Q6HRT PRN Administration sob/wheezing Amiodarone HCl 200 mg 05/20/25 16:05 05/29/25 10:12 Amiodarone Hcl 200 Mg Tablet PO 200 mg DAILY STAN Administration Artificial Tears 1 drop 05/21/25 14:33 Artificial Tears Ophth Soln 15 Ml Bottle EACH EYE QID PRN Dry Eye(s) Carvedilol 25 mg 05/20/25 16:05 05/29/25 10:10 Carvedilol 12.5 Mg Tablet PO 25 mg DAILY STAN Administration Clonazepam 0.5 mg 05/20/25 17:00 05/29/25 16:49 Clonazepam (*Crx) 0.5 Mg Tablet PO 0.5 mg TID STAN Administration Donepezil HCl 10 mg 05/20/25 21:00 05/28/25 21:37 Donepezil Hcl 10 Mg Tablet PO 10 mg HS STAN Administration Enoxaparin Sodium 75 mg 05/28/25 21:00 05/29/25 10:15 Enoxaparin 80 Mg/0.8 Ml Syringe SUB-Q 75 mg Q12HR STAN Administration Famotidine 20 mg 05/21/25 09:09 05/29/25 10:12 Famotidine 20 Mg Tablet PO 20 mg Q12H PRN Administration Reflux Furosemide 40 mg 05/21/25 09:00 05/21/25 08:29 Furosemide 40 Mg Tablet PO 40 mg On Hold: 05/22/25 16:56 MoWeFr@0900 STAN Administration Hydralazine HCl 12.5 mg 05/27/25 17:00 05/29/25 16:49 Hydralazine 12.5 Mg Tablet PO 12.5 mg TID STAN Administration Levothyroxine Sodium 150 mcg 05/21/25 06:30 05/29/25 05:38 Levothyroxine Sodium 150 Mcg Tablet PO 150 mcg DAILY@0630 STAN Administration Loratadine 10 mg 05/21/25 09:30 05/29/25 10:12 Loratadine 10 Mg Tablet PO 10 mg QAM STAN Administration Metoclopramide HCl 5 mg 05/27/25 11:30 05/29/25 16:49 Metoclopramide Hcl 5 Mg Tablet PO 5 mg ACHS STAN Administration Ondansetron HCl 4 mg 05/22/25 16:29 05/29/25 11:12 Ondansetron Inj 4 Mg/2 Ml Vial IV PUSH 4 mg Q6H PRN Administration Nausea And Vomiting Pantoprazole Sodium 40 mg 05/24/25 10:50 05/29/25 10:15 Pantoprazole Sodium Iv 40 Mg Vial IV PUSH 40 mg QAM STAN Administration Rosuvastatin Calcium 40 mg 05/21/25 09:30 05/29/25 10:10 Rosuvastatin 20 Mg Tablet PO 40 mg DAILY STAN Administration Sodium Chloride 10 ml 05/20/25 14:00 05/29/25 11:14 Central Line Flush IV PUSH 10 ml Q8HR STAN Administration Sodium Chloride 10 ml 05/20/25 12:11 Central Line Flush IV PUSH PRN PRN with TPN bag changes Sodium Chloride 20 ml 05/20/25 12:11 05/25/25 05:14 Central Line Flush IV PUSH 20 ml PRN PRN Administration after blood draws Spironolactone 25 mg 05/20/25 16:05 05/23/25 07:57 Spironolactone 25 Mg Tablet PO Not Given On Hold: 05/23/25 13:47 DAILY STAN Trazodone HCl 150 mg 05/21/25 21:00 05/28/25 21:37 Trazodone Hcl 50 Mg Tablet PO 150 mg HS STAN Administration Venlafaxine HCl 37.5 mg 05/21/25 09:30 05/29/25 10:12 Venlafaxine Hcl Xr 37.5 Mg Cap PO 37.5 mg DAILY STAN Administration Warfarin Sodium 2 mg 05/21/25 17:00 05/23/25 14:54 Warfarin (*Pbkc) 2 Mg Tablet PO Not Given On Hold: 05/24/25 13:48 DAILY@1700 PENDING SALE TO [facility] Radiology Results: ITS Impressions Modified Barium Swallow 05/26/25 12:15 IMPRESSION: Oropharyngeal dysphagia with laryngeal penetration without aspiration. Please correlate with speech pathologist findings and specific feeding recommendations. Chest X-Ray 05/26/25 22:01 IMPRESSION: 1: Developing right upper lobe infiltrates, suspicious for pneumonia.. Labs Labs: Laboratory Results - last 24 hr 05/29/25 05:38 WBC 5.6 RBC 3.10 L Hgb 9.5 L Hct 32.3 L MCV 104.2 H MCH 30.6 MCHC 29.4 L RDW 15.2 H Plt Count 157 MPV 9.6 Immature Gran % (Auto) 0.5 Neut % (Auto) 48.7 Lymph % (Auto) 33.2 [place] % (Auto) 13.8 H Eos % (Auto) 3.4 Baso % (Auto) 0.4 Lymph # (Auto) 1.85 [place] # (Auto) 0.8 H Eos # (Auto) 0.2 Baso # (Auto) 0.0 Abs Immat Gran (auto) 0.03 Absolute Neuts (auto) 2.7 Absolute Nucleated RBC 0.000 Band Neutrophils % Not Reportable Nucleated RBC % 0.0 Platelet Estimate Adequate Polychromasia Occasional Hypochromasia Occasional Ovalocytes Occasional [place] Cells Occasional Schistocytes None seen PT 15.8 H INR 1.3 Sodium 136 L Potassium 3.7 Chloride 107 Carbon Dioxide 29 Anion Gap 0 L BUN 14 D Creatinine 0.94 Estim Creat Clear Calc 43 Estimated GFR 57 L Glucose 84 Calcium 8.1 L Total Bilirubin 0.3 AST 29 ALT 23 Alkaline Phosphatase 56 Total Protein 5.8 L Albumin 2.9 L
[2025-05-29 20:42] VITALS: BP 131/52; PULSE 60; RESP 17; TEMP 36.8; O2SAT 98
[2025-05-29] MEDS: DONEPEZIL HCL 10 MG TABLET PO (21:23)
[2025-05-30 04:52] VITALS: BP 150/62; PULSE 86; RESP 18; TEMP 36.8; O2SAT 95
[2025-05-30 04:58] LABS: Hematocrit 33.8 % (37.0-47.0); Hemoglobin 10.1 g/dL (12.0-15.0); Immature Granulocyte Percent A 0.2 % (0-0.5); Lymphocytes Absolute Auto 2.13 K/mm3 (0.9-3.2); Mean Corpuscular HGB Conc 29.9 g/dl (32-36); Mean Corpuscular Hemoglobin 30.6 pg (26-34); Mean Corpuscular Volume 102.4 fl (80-100); Nucleated Red Blood Cells Absolute Auto 0.000 K/mm3 (0.0-0.012); Nucleated Red Blood Cells Perc 0.0 % (0.0-0.2); Platelet Count Result 160 k/mm3 (150-375); Red Blood Count 3.30 M/mm3 (4.2-5.4); White Blood Count 5.3 K/mm3 (4.5-10.0)
[2025-05-30 05:15] LABS: INR 1.2; Prothrombin Time 15.7 Seconds (11.1-14.7)
[2025-05-30 05:25] LABS: Alanine Aminotransferase 31 U/L (6-35); Albumin Level 3.1 g/dL (3.5-5.1); Alkaline Phosphatase 61 U/L (38-126); Anion Gap 3 mmol/L (4-12); Aspartate Amino Transferase 37 U/L (14-36); Bilirubin,Total 0.4 mg/dL (0.2-1.3); Blood Urea Nitrogen 10 mg/dL (7-17); Calcium 8.4 mg/dL (8.4-10.2); Carbon Dioxide 30 mmol/L (22-30); Chloride 105 mmol/L (98-107); Estimated CRCL calculation 41 ml/min; Estimated Glomerular Filt Rate 55; Glucose 83 mg/dL (65-110); Potassium 3.8 mmol/L (3.4-5.0); Sodium 138 mmol/L (137-145); Total Protein 6.0 g/dL (6.3-8.2)
[2025-05-30] MEDS: METOCLOPRAMIDE HCL 5 MG TABLET PO ×2 (05:41→12:08)
[2025-05-30] MEDS: CENTRAL LINE FLUSH 10 ML IV PUSH ×2 (05:41→12:08)
[2025-05-30] MEDS: LEVOTHYROXINE SODIUM 150 MCG TABLET PO (05:41)
[2025-05-30 08:45] VITALS: BP 156/73; PULSE 81; RESP 16; O2SAT 95
[2025-05-30 08:46] VITALS: PULSE 82
[2025-05-30] MEDS: ACETAMINOPHEN 325 MG TABLET 650 MG PO (08:46)
[2025-05-30 08:47] VITALS: PULSE 82
[2025-05-30] MEDS: VENLAFAXINE HCL XR 37.5 MG CAP PO (08:47)
[2025-05-30] MEDS: LORATADINE 10 MG TABLET PO (08:47)
[2025-05-30] MEDS: hydrALAZINE 12.5 MG TABLET PO ×2 (08:47→12:08)
[2025-05-30] MEDS: ROSUVASTATIN 20 MG TABLET 40 MG PO (08:47)
[2025-05-30] MEDS: FAMOTIDINE 20 MG TABLET PO (08:47)
[2025-05-30] MEDS: clonazePAM (*CRX) 0.5 MG TABLET PO ×2 (08:47→12:08)
[2025-05-30] MEDS: AMIODARONE HCL 200 MG TABLET PO (08:47)
[2025-05-30] MEDS: PANTOPRAZOLE SODIUM IV 40 MG VIAL IV PUSH (08:58)
[2025-05-30] MEDS: ENOXAPARIN 80 MG/0.8 ML SYRINGE 75 MG SUB-Q (10:18)
--- NOTE | 2025-05-30 10:27 | PCDIET ---
Calorie Count. 05/28 Lunch-approx 460 kcal. 05/28 Dinner-approx 50 kcal. 05/29 Breakfast-approx 110 kcal. 05/29 Lunch-approx 410 kcal. 05/29 Dinner-approx 300 kcal. 02/27 Breakfast approx 450 kcals. Spoke with patient today, she is not interested in receiving PEG. From calorie count tickets presented, she is taking in >50% of caloric needs daily. She does state she does not like some of the food items that are available at the hospital which has limited her oral intake. Overall would recommend to continue with current diet orders. Thank you for the consult.
[2025-05-30 13:39] VITALS: BP 115/53; PULSE 60; RESP 16; TEMP 36.6; O2SAT 95
--- NOTE | 2025-05-30 13:59 | P.DS_ITS ---
DS: Admitting Diagnosis Discharge Date 05/30/2025 Admitting Diagnosis acute hypoxemic respiratory failure DS: Discharge Diagnosis Discharge Diagnosis (1) Heart failure with reduced ejection fraction: Code(s): I50.20 - Unspecified systolic (congestive) heart failure Status: Acute (2) Dysphagia: Code(s): R13.10 - Dysphagia, unspecified Status: Acute (3) Acute non-ST elevation myocardial infarction (NSTEMI): Code(s): I21.4 - Non-ST elevation (NSTEMI) myocardial infarction Status: Acute DS: Summary Hospital Course Reason for hospitalization: Copied from [facility] 05/20: 79 yo Female with PMH of CHF s/p Pacemaker and Defibrillator who presented to the ER on account of SOB. Patient noted symptoms started yesterday, endorsed Orthopnea and PND, denies leg swelling, no fever, vomiting, abd pain or diarrhea. ER eval notable for BP 144/55, T 98.2, NC 64, RR 18 and saturating (8% on 2 liters oxygen Hospital Course: 79-year-old female presenting from home with shortness of breath. She had difficulty swallowing, and a feeding tube was placed temporarily while deciding if a permanent tube was going to be needed. She was able to maintain adequate calories by mouth. The dietitian followed during admission. So feeding tube was discontinued prior to discharge. She will follow up with GI She is a fair historian and per chart review has a history of GERD, hypothyroidism, depression with anxiety, bipolar (followed by Dr. Esteban), iaotregenic tardive dyskinesia, hyperlipidemia, history of TIA, hypertension, dysphagia, CKD stage 3, history of pneumonia, chronic combined diastolic systolic congestive heart failure history of ventricular arrhythmia with EF 20- 25%, status post pacemaker/ICD implantation with recovery of EF to 40-45% (followed by Dr. Ceja), AFib on warfarin. She has had acute onset of shortness of breath. She reports this happens when she has a CHF exacerbation. She took 40 mg of Lasix and called EMS. EMS gave her a DuoNeb with improvement in her symptoms. She has had a cough productive of clear sputum. Saturating low on room air requiring 2 L nasal cannula. Admitted on 05/21/2025 diagnosed with acute hypoxic respiratory failure, community-acquired pneumonia. Acute hypoxic respiratory failure -likely due to pneumonia, placed on 2 L nasal cannula on admission, weaned off. Again placed on 2 L nasal cannula 05/22/2025 after she aspirated. Weaned off on 05/24/2025. -check quad viral screen negative -patient unsure if she has COPD, never a smoker. No wheezing . 05/26 Chest x ray with developing RUL infiltrates Aspiration pneumonia/pneumonitis Patient placed on ceftriaxone and azithromycin on admission. Asked the patient multiple times if she had choked at home, she has a history of dysphagia. She said no, nurse later told me the patient reports she has been choking. She is a poor historian. She has right lower lobe and right middle lobe rhonchi. Chest x-ray on admission 05/20/2025 demonstrating small airspace disease of the left lower lobe. Switch antibiotics from ceftriaxone and doxycycline to Unasyn, completed course with Augmentin. She is back on room air on 05/24/2025, pneumonia is improving however she is at risk for aspiration. Mycoplasma IgM less than 770, Legionella and Streptococcus pneumoniae antigens negative. Reports her psychiatrist told her this will be the side effect of her antipsychotic medication. She does not want to change at this time. Advised to follow up with Psychiatry on this matter. She also has an appointment with ENT to investigate pooling of mucus drainage. 05/21 Barium swallow: 05/26 Barium swallow: Oropharyngeal dysphagia with laryngeal penetration without aspiration. Please correlate with speech pathologist findings and specific feeding recommendations. PLAN --Speech pathologist recommended minced & moist level 5 Dysphagia Nausea Still having nausea EGD but will need to wait until INR 1.5 (Coumadin held) Last dose 05/22. Added reglan 5 TID before meals seemed to help nausea INR 1.2 05/30 today May need PEG eventually --GI consulted Sepsis without shock present on admission -WBC [id number] on admission with acute hypoxic respiratory failure due to aspiration pneumonia. Leukocytosis resolved, ARF resolved. -blood culture x2 on 05/20/2025, no growth at 48 hours. Systolic/diastolic heart failure with pacemaker/defibrillator -prior to admission she is on spironolactone 25 mg p.o. q.day, furosemide 40 mg p.o. Monday. Eating and drinking minimally so holding these, she is euvolemic. Continue to monitor with daily weights and intake/output. Elevated troponin -present on admission, peaked. Likely due to hypoxia. No chest pain. Demand ischemia/type 2 [place]. AFib on warfarin -currently paced rhythm. Continued amiodarone -continue telemetry until pneumonia is resolved. INR on admission 2.8, down to 1.3. Prior to admission Coumadin 2 mg p.o. at 5:00 p.m., daily INR. Coumadin on hold for GI procedures -Continue therapeutic lovenox for anticoagulation pending possible feeding tube. Resumed warfarin for discharge CKD stage III -her baseline is around 1.1-1.2. Stable, Continue to monitor. Suprapubic pain/pressure She complained of suprapubic pain/pressure. Urinalysis not indicative of infection. She no longer complains of this. Essential hypertension: Spironolactone and furosemide held, resumed. Continued home Coreg 25 mg p.o. q.day. Added low dose of hydralazine 10mg BID Hyperlipidemia: Continue home rosuvastatin 40 mg p.o. q.day Depression with anxiety: Continue home venlafaxine, trazodone, Klonopin, donepezil Hypothyroidism: Continue home levothyroxine 150 mcg p.o. q.day GERD: Continue home famotidine p.r.n. adding Protonix IV q.a.m. on 05/24/2025 for ulcer prophylaxis. ----- Patient lives at home with a friend/boyfriend. Uses a walker at baseline. She wishes to be full code. Continue PT/OT for weakness. Consult speech therapy for dysphagia and aspiration pneumonia. Saline lock IV. Heart healthy diet. Aspiration precautions Fall precautions, ambulate with assistance. Stable on medical floor. Time Spent with Patient Time attestation: Total time spent providing and/or coordinating discharge services: 58 minutes Exam Narrative: General: alert and comfortable Eyes: EOMI, PERRLA ENT: Dobhoff in nare External ears normal, Neck is supple, no masses, Respiratory systems: Clear to auscultation. Increased work of breathing Cardiovascular S1, S2, normal rhythm, no murmur, rub, or gallop; no thrill or palpable murmurs on palpation. Gastrointestinal: soft, non-tender, and non-distended abdomen with no masses; BS present Skin: no rash, lesions, ulcerations, subcutaneous nodules or induration Musculoskeletal: no abnormality and no tenderness, normal ROM Neurologic: Alert and oriented x3, non focal Mental Status Exam: normal affect DS: Data Data Completed and Pending Labs on day of discharge: Labs from last 24 hours 05/30/25 04:17 WBC 5.3 RBC 3.30 L Hgb 10.1 L Hct 33.8 L MCV 102.4 H MCH 30.6 MCHC 29.9 L RDW 14.9 H Plt Count 160 MPV 10.1 Immature Gran % (Auto) 0.2 Neut % (Auto) 42.0 L Lymph % (Auto) 40.2 [place] % (Auto) 13.8 H Eos % (Auto) 3.2 Baso % (Auto) 0.6 Lymph # (Auto) 2.13 [place] # (Auto) 0.7 H Eos # (Auto) 0.2 Baso # (Auto) 0.0 Abs Immat Gran (auto) 0.01 Absolute Neuts (auto) 2.2 Absolute Nucleated RBC 0.000 Nucleated RBC % 0.0 PT 15.7 H INR 1.2 Sodium 138 Potassium 3.8 Chloride 105 Carbon Dioxide 30 Anion Gap 3 L BUN 10 Creatinine 0.98 Estim Creat Clear Calc 41 Estimated GFR 55 L Glucose 83 Calcium 8.4 Total Bilirubin 0.4 AST 37 H ALT 31 Alkaline Phosphatase 61 Total Protein 6.0 L Albumin 3.1 L Discharge Plan Discharge Attending physician on discharge: Brigitte Colbert Consulting providers: Morris Israel; Cameron Loco; Brigitte Colbert; Leroy Seo; Fred Russell; Em Campbell; Opal Saravia; Sergey Thomas; Enrique Jaimes; Jorge Nelson Discharging Clinician: Brigitte Colbert Anticipated Discharge Date/Time: 05/30/25 13:55 Patient Disposition: Home with Home Health Service Activity: may shower Diet: regular Discharge Instructions: Per Care Coordination: [facility] will start services for PT/OT/ST eval and treat at discharge. [facility] can be contacted at [phone]. Nursing please fax discharge paperwork to [phone]. They will contact patient to schedule appointments. Follow up with your PCP in 1-2 weeks Keep a log of your meals and monitor your weight twice a week. Take to your next appointment with your PCP. You do not have to follow up with GI, but you can follow up as needed if you are losing weight Patient Instructions: Antibiotic Form, Warfarin (By mouth), Heart Failure (GEN) Patient Language: Cuban Stand Alone Forms: General Discharge Information Follow-up/Referrals: Maureen,MD Masoud [Primary Care Provider, Unknown] - 2 Weeks Discharge Medications: New loratadine 10 mg Tablet 10 mg PO QAM Qty: 30 0RF metoclopramide HCl 5 mg Tablet 5 mg PO ACHS Qty: 120 0RF hydralazine 10 mg tablet 10 mg PO BID Qty: 60 0RF Continued venlafaxine [Effexor XR] 37.5 mg capsule,extended release 24hr 37.5 mg PO DAILY trazodone 150 mg tablet 150 mg PO HS carvedilol 12.5 mg tablet 25 mg PO DAILY rosuvastatin 40 mg tablet 40 mg PO DAILY levothyroxine 150 mcg Tablet 150 mcg PO DAILY amiodarone 200 mg tablet 200 mg PO DAILY clonazepam 0.5 mg tablet 0.5 mg PO TID famotidine 20 mg tablet 20 mg PO Q12H PRN (Reason: reflux) spironolactone 25 mg tablet 25 mg PO DAILY cyanocobalamin (vitamin B-12) 1,000 mcg/mL solution 1,000 mcg subcut MONTHLY donepezil 10 mg tablet 10 mg PO HS furosemide 40 mg tablet 40 mg PO 3XW Rx Instructions: -- warfarin 3 mg tablet 2 mg PO DAILY Qty: 30 0RF acetaminophen [8 Hour Pain Reliever] 650 mg tablet extended release 650 mg PO Q8H PRN (Reason: pain) ondansetron 4 mg tablet,disintegrating 8 mg PO Q12H PRN (Reason: nausea and vomiting) Qty: 30 0RF Discontinued cetirizine 5 mg tablet 5 mg PO DAILY Date of admission: 05/20/25 12:56 Primary Care Provider: MaureenMasoud Admitting Provider: Lana Begum Attending physician on admission: Brigitte Colbert Condition: Stable Quality VTE Prophylaxis VTE prophylaxis: pharmacologic ordered Hospitalist MIPS Heart Failure (Exclusion) Patient has history of Heart Transplant or Left Ventricular Assistive Device?: No IF YES, STOP HERE Heart Failure (Qualifier) Patient has current or prior documentation of LVEF less than or equal to 40%, or mod/servere depressed LVSF?: No IF NO, STOP HERE
--- NOTE | 2025-05-30 16:17 | P.PNGI_ITS ---
Progress Note: A&P Assessment and Plan (1) Dysphagia: Code(s): R13.10 - Dysphagia, unspecified Status: Acute Assessment and Plan: better calorie count and she has been eating more no need for PEG ok to resume coumadin primary team is planning to discharge home today (2) Acute exacerbation of CHF (congestive heart failure): Code(s): I50.9 - Heart failure, unspecified Status: Acute Assessment and Plan: improved (3) Community acquired pneumonia: Qualifiers: Laterality: right Lung location: upper lobe of lung Qualified Code(s): J18.9 - Pneumonia, unspecified organism Code(s): J18.9 - Pneumonia, unspecified organism Status: Acute Assessment and Plan: improved after abx Subjective Date/time seen: 05/30/25 16:17 Interval history: she has been eating more therefore did not want to pursue PEG placement and is going home today Review of Systems Review of Systems: All systems reviewed & are unremarkable except as noted in HPI and below Exam Const: General: comfortable and no acute distress HENMT: Mouth: Yes moist mucous membranes Eyes: Sclera: sclerae normal Neck: Neck: supple Resp: Effort & Inspection: normal respiratory effort Cardio: Rate: regular rate Rhythm: regular rhythm GI: Inspection: non-distended GI Palp: Yes Soft to palpation and No Tenderness to palpation present (GI) Skin: General skin exam: normal color Neuro: Motor exam (neuro): 5/5 motor strength present throughout Extrem: General: no edema Other: Dyskinesia of the mouth and hands Psych: Mental Status: mental status grossly normal Objective Data Vital Signs Vital Signs: Vital Signs - 24 hr 05/29/25 20:00 05/29/25 20:42 05/30/25 04:52 Temperature 98.2 F 98.3 F Pulse Rate 60 86 Respiratory Rate 17 18 Blood Pressure 131/52 L 150/62 H Pulse Oximetry 98 95 Oxygen Delivery Room Air 05/30/25 08:45 05/30/25 08:46 05/30/25 08:47 Temperature Pulse Rate 81 82 82 Respiratory Rate 16 Blood Pressure 156/73 H Pulse Oximetry 95 Oxygen Delivery 05/30/25 09:03 05/30/25 13:39 Temperature 97.9 F Pulse Rate 60 Respiratory Rate 16 Blood Pressure 115/53 L Pulse Oximetry 95 Oxygen Delivery Room Air Intake/Output Intake/Output: Intake & Output 05/27/25 05/28/25 05/29/25 05/30/25 23:59 23:59 23:59 23:59 Intake Total 100 600 640 530 Balance 100 600 640 530 Meds/Results Medications: Active Medications Generic Name Dose Route Start Last Admin Trade Name Freq PRN Reason Stop Dose Admin Acetaminophen 650 mg 05/21/25 23:48 05/30/25 08:46 Acetaminophen 325 Mg Tablet PO 650 mg Q8H PRN Administration Mild Pain (1-3) or Fever Albuterol/Ipratropium 3 ml 05/22/25 16:56 05/22/25 17:10 Ipratropium 0.5 Mg/Albuterol Sulfate 2.5 Mg Ampul.Neb 3 Ml INHALATION 3 ml Q6HRT PRN Administration sob/wheezing Amiodarone HCl 200 mg 05/20/25 16:05 05/30/25 08:47 Amiodarone Hcl 200 Mg Tablet PO 200 mg DAILY STAN Administration Artificial Tears 1 drop 05/21/25 14:33 Artificial Tears Ophth Soln 15 Ml Bottle EACH EYE QID PRN Dry Eye(s) Carvedilol 25 mg 05/20/25 16:05 05/30/25 08:46 Carvedilol 12.5 Mg Tablet PO 25 mg DAILY STAN Administration Clonazepam 0.5 mg 05/20/25 17:00 05/30/25 12:08 Clonazepam (*Crx) 0.5 Mg Tablet PO 0.5 mg TID STAN Administration Donepezil HCl 10 mg 05/20/25 21:00 05/29/25 21:23 Donepezil Hcl 10 Mg Tablet PO 10 mg HS STAN Administration Enoxaparin Sodium 75 mg 05/28/25 21:00 05/30/25 10:18 Enoxaparin 80 Mg/0.8 Ml Syringe SUB-Q 75 mg Q12HR STAN Administration Famotidine 20 mg 05/21/25 09:09 05/30/25 08:47 Famotidine 20 Mg Tablet PO 20 mg Q12H PRN Administration Reflux Furosemide 40 mg 05/21/25 09:00 05/21/25 08:29 Furosemide 40 Mg Tablet PO 40 mg On Hold: 05/22/25 16:56 MoWeFr@0900 STAN Administration Hydralazine HCl 12.5 mg 05/27/25 17:00 05/30/25 12:08 Hydralazine 12.5 Mg Tablet PO 12.5 mg TID STAN Administration Levothyroxine Sodium 150 mcg 05/21/25 06:30 05/30/25 05:41 Levothyroxine Sodium 150 Mcg Tablet PO 150 mcg DAILY@0630 STAN Administration Loratadine 10 mg 05/21/25 09:30 05/30/25 08:47 Loratadine 10 Mg Tablet PO 10 mg QAM STAN Administration Metoclopramide HCl 5 mg 05/27/25 11:30 05/30/25 12:08 Metoclopramide Hcl 5 Mg Tablet PO 5 mg ACHS STAN Administration Ondansetron HCl 4 mg 05/22/25 16:29 05/29/25 11:12 Ondansetron Inj 4 Mg/2 Ml Vial IV PUSH 4 mg Q6H PRN Administration Nausea And Vomiting Pantoprazole Sodium 40 mg 05/24/25 10:50 05/30/25 08:58 Pantoprazole Sodium Iv 40 Mg Vial IV PUSH 40 mg QAM STAN Administration Rosuvastatin Calcium 40 mg 05/21/25 09:30 05/30/25 08:47 Rosuvastatin 20 Mg Tablet PO 40 mg DAILY STAN Administration Sodium Chloride 10 ml 05/20/25 14:00 05/30/25 12:08 Central Line Flush IV PUSH 10 ml Q8HR STAN Administration Sodium Chloride 10 ml 05/20/25 12:11 Central Line Flush IV PUSH PRN PRN with TPN bag changes Sodium Chloride 20 ml 05/20/25 12:11 05/25/25 05:14 Central Line Flush IV PUSH 20 ml PRN PRN Administration after blood draws Spironolactone 25 mg 05/20/25 16:05 05/23/25 07:57 Spironolactone 25 Mg Tablet PO Not Given On Hold: 05/23/25 13:47 DAILY STAN Trazodone HCl 150 mg 05/21/25 21:00 05/29/25 21:23 Trazodone Hcl 50 Mg Tablet PO 150 mg HS STAN Administration Venlafaxine HCl 37.5 mg 05/21/25 09:30 05/30/25 08:47 Venlafaxine Hcl Xr 37.5 Mg Cap PO 37.5 mg DAILY STAN Administration Warfarin Sodium 2 mg 05/21/25 17:00 05/23/25 14:54 Warfarin (*Pbkc) 2 Mg Tablet PO Not Given On Hold: 05/24/25 13:48 DAILY@[facility] Radiology Results: ITS Impressions Modified Barium Swallow 05/26/25 12:15 IMPRESSION: Oropharyngeal dysphagia with laryngeal penetration without aspiration. Please correlate with speech pathologist findings and specific feeding recommendations. Chest X-Ray 05/26/25 22:01 IMPRESSION: 1: Developing right upper lobe infiltrates, suspicious for pneumonia.. Labs Labs: Laboratory Results - last 24 hr 05/30/25 04:17 WBC 5.3 RBC 3.30 L Hgb 10.1 L Hct 33.8 L MCV 102.4 H MCH 30.6 MCHC 29.9 L RDW 14.9 H Plt Count 160 MPV 10.1 Immature Gran % (Auto) 0.2 Neut % (Auto) 42.0 L Lymph % (Auto) 40.2 [place] % (Auto) 13.8 H Eos % (Auto) 3.2 Baso % (Auto) 0.6 Lymph # (Auto) 2.13 [place] # (Auto) 0.7 H Eos # (Auto) 0.2 Baso # (Auto) 0.0 Abs Immat Gran (auto) 0.01 Absolute Neuts (auto) 2.2 Absolute Nucleated RBC 0.000 Nucleated RBC % 0.0 PT 15.7 H INR 1.2 Sodium 138 Potassium 3.8 Chloride 105 Carbon Dioxide 30 Anion Gap 3 L BUN 10 Creatinine 0.98 Estim Creat Clear Calc 41 Estimated GFR 55 L Glucose 83 Calcium 8.4 Total Bilirubin 0.4 AST 37 H ALT 31 Alkaline Phosphatase 61 Total Protein 6.0 L Albumin 3.1 L
== END 2025-05-30 16:22 | disposition home health service (06) | DRG 871 ==
LOC: ANHED 07:27 → ANHIMU 12:56 → ANH2MED 05-21 13:25
PROVIDERS: General Practice; Internal Medicine; Physician Assistant; Admitting Provider Family Medicine; Emergency Provider Student in an Organized Health Care Education/Training Program; PCP Internal Medicine; Visit Provider Nurse Practitioner Acute Care
DX: A41.9 Sepsis, unspecified organism (principal); I21.A1 Myocardial infarction type 2; J18.9 Pneumonia, unspecified organism; J96.01 Acute respiratory failure with hypoxia; J69.0 Pneumonitis due to inhalation of food and vomit; J44.0 Chronic obstructive pulmonary disease with (acute) lower respiratory infection; I13.0 Hypertensive heart and chronic kidney disease with heart failure and stage 1 through stage 4 chronic kidney disease, or unspecified chronic kidney disease; I50.42 Chronic combined systolic (congestive) and diastolic (congestive) heart failure; I42.9 Cardiomyopathy, unspecified; N18.30 Chronic kidney disease, stage 3 unspecified; E78.5 Hyperlipidemia, unspecified; E03.9 Hypothyroidism, unspecified; R13.10 Dysphagia, unspecified; K21.9 Gastro-esophageal reflux disease without esophagitis; G24.01 Drug induced subacute dyskinesia; F41.9 Anxiety disorder, unspecified; F31.9 Bipolar disorder, unspecified; Z86.73 Personal history of transient ischemic attack (TIA), and cerebral infarction without residual deficits; Z86.718 Personal history of other venous thrombosis and embolism; Z95.810 Presence of automatic (implantable) cardiac defibrillator
CPT/HCPCS: 36415; 36600; 43752; 71045; 71046; 74230; 80048; 80053; 81001; 82805; 83605; 83735; 83880; 84484; 85018; 85025; 85027; 85610; 86738; 87040; 87449; 87637; 87641; 87899; 92526; 92610; 92611; 93005; 94640; 96365; 96367; 97110; 97116; 97161; 97166; 97530; 97535; 99285; A9270; C1751; J0295; J0360; J0696; J1650; J2003; J2405; J2470; J3480; J7040; J7512

== ENCOUNTER 2025-06-09 13:09 | Outpatient (NON) | payer MEDICARE, SELFPAY ==
--- OUTSIDE RECORDS SUMMARY | 2025-05-01 08:30 | XMS_ITS ---
Author Organization [facility] Address [facility]5 [facility] [address] [address] Care Team Providers Care Communications Scientist Name Role Phone Maureen URBINA, Masoud Primary Care Provider Un available Patric De Jesus Unavailable [phone] REASON FOR VISIT 3 week follow up Social History Sex Assigned At : Social History Observation Description Sex Assigned At Female Encounters Encounter Location Date Provider Diagnosis [facility] [employer] [facility] [address] [address] 05/01/2025 Patric De Jesus Plan Of Treatment Next Appt Details Provider Name:Patric De Jesus , 06/11/2025 01:00:00 PM, [facility] [place] [address], [address], [address], Provider Name:Patric De Jesus , 07/09/2025 01:00:00 PM, [address] [place] [address], [address], Progress Notes * JAILENE CHOPRA KDOB:[birth year] (79 yo F)Acc No.[id number]:05/01/2025 Patient: Stas JAILENE DELCID Provider: Beck DE JESUS MD :1945 A ge:79 Y S ex:Female Date:05/01/2025 Address:[address] [place], [place] [address]AMY GROVES, [facility] Pcp:Masoud Reddy MD Subjective: * Chief Complaints: [...] On:04/09/2025 Status:confirmed I63.9 Cerebral infarction, unspecified Modified On:05/12/2025 Status:confirmed Billing Information: * Procedure Codes: * Electronic signature of Blanca De Jesus MD on 06/09/2025 at 02:15 PM CDT Sign off status: Pending * Provider: Beck DE JESUS MD Date: 0 05/01/2025 Generated for [place] donnelly/Danny/Nila on: 1 02:15 PM CDT
--- OUTSIDE RECORDS SUMMARY | 2025-06-09 14:14 | XMS_ITS | Patient Health Record ---
Author Organization [facility] [address] [facility] Address [address] [facility] [address] [place] [address] Care Team Providers Care Breakfast Server Name Role Phone Maureen URBINA, Masoud Primary Care Provider Un available Patric Amaya Unavailable [phone] Allergies Allergen (clinical drug ingredient) Drug/Non Drug [...] From Senior Services Living situation: Relies On [employer] For Care And Transportation Problems Problem Type SNOMED Code ICD Code Onset Dates Problem Status W/U Status Risk Notes Problem Bipolar affective disorder, currently depressed, mild (588167791) Bipolar disorder, current episode depressed, mild (F31.31) Active confirmed Problem Generalized anxiety disorder (65627247) Generalized anxiety disorder (F41.1) Active confirmed Problem Primary insomnia (2677442) Primary insomnia (F51.01) Active confirmed Problem Alzheimer's disease with late onset (553291054) Alzheimer's disease with late onset (G30.1) Active confirmed Problem Cardiomyopathy (82528137) Cardiomyopathy, unspecified (I42.9) Active confirmed Problem Heart failure (81260044) Heart failure, unspecified (I50.9) Active confirmed Problem Cerebral infarction (866525762) Cerebral infarction, unspecified (I63.9) Active confirmed Problem Recurrent falls (770290434) Repeated falls (R29.6) Active confirmed Problem Generalized anxiety disorder (47481551) CAMDEN (generalized anxiety disorder) (F41.1) Active confirmed Problem Hyperlipidemia (31384874) Hyperlipidemia (E78.5) 03/22/20 21 Active confirmed Problem Hypothyroidism (48880860) Hypothyroidism (E03.9) 03/22/20 21 Active confirmed Problem Cardiomyopathy (68563144) Cardiomyopathy (I42.9) 03/22/20 21 Active confirmed Problem Left bundle branch block (23180666) Left bundle branch block (LBBB) (I44.7) 03/23/20 21 Active confirmed Problem Ventricular tachycardia (disorder) (47903882) VT (ventricular tachycardia) (I47.20) 04/12/20 21 Active confirmed Problem Automatic implantable cardiac defibrillator in situ (481816744) ICD (implantable cardioverter-defi brillator), biventricular, in situ (Z95.810) 04/21/20 23 Active confirmed Vital Signs Heart Rate 62 /min 05/12/2025 Height-cm 165.1 cm 05/12/2025 Blood pressure diastolic 74 mm Hg 05/12/2025 Weight-kg 74.84 kg 05/12/2025 Height 65.00 in 05/12/2025 Blood pressure systolic 126 mm Hg 05/12/2025 Weight 165 lbs 05/12/2025 BMI 27.45 kg/m2 05/12/2025 Encounters Encounter Location Date Provider Diagnosis [facility] [place] [address] [address] [facility] [address] [address] 06/14/2024 Patric Jose Luis Bipolar disorder, current episode depressed, mild F31.31 ; Cardiomyopathy, unspecified I42.9 ; Primary insomnia F51.01 ; Alzheimer's disease with late onset G30.1 ; CAMDEN (generalized anxiety disorder) F41.1 ; Hyperlipidemia E78.5 ; Left bundle branch block (LBBB) I44.[address] [facility] [place] [address] [facility] [address] [address] 07/15/2024 Patric Jose Luis Bipolar disorder, current episode depressed, mild F31.31 ; Cardiomyopathy, unspecified I42.9 ; Primary insomnia F51.01 ; Alzheimer's disease with late onset G30.1 ; CAMDEN (generalized anxiety disorder) F41.1 ; Hyperlipidemia E78.5 ; Left bundle branch block (LBBB) I44.7 and Hypothyroidism E03.[address] [address] 09/19/2024 Patric Jose Luis Bipolar disorder, current episode depressed, mild F31.31 ; Cardiomyopathy, unspecified I42.9 ; Primary insomnia F51.01 ; Alzheimer's disease with late onset G30.1 ; CAMDEN (generalized anxiety disorder) F41.1 ; Hyperlipidemia E78.5 ; Left bundle branch block (LBBB) I44.7 and Hypothyroidism E03.[address] [address] 10/17/2024 Patric Jose Luis Bipolar disorder, current episode depressed, mild F31.31 ; Primary insomnia F51.01 ; Alzheimer's disease with late onset G30.1 ; CAMDEN (generalized anxiety disorder) F41.1 ; Hyperlipidemia E78.5 and Hypothyroidism E03.[address] [address] 11/14/2024 Patric Jose Luis Encounter for screen ing for depression Z13.31 ; Encounter for screening for cardiovascular disorders Z13.6 ; Bipolar disorder, current episode depressed, mild F31.31 ; Primary insomnia F51.01 ; Alzheimer's disease with late onset G30.1 ; CAMDEN (generalized anxiety disorder) F41.1 ; Hyperlipidemia E78.5 and Hypothyroidism E03.[address] [address] 12/12/2024 Patric Jose Luis Encounter for screen ing for cardiovascular disorders Z13.6 ; Encounter for screening for depression Z13.31 ; Bipolar disorder, current episode depressed, mild F31.31 ; Primary insomnia F51.01 ; Alzheimer's disease with late onset G30.1 ; CAMDEN (generalized anxiety disorder) F41.1 ; Hyperlipidemia E78.5 and Hypothyroidism E03.[address] [address] 01/09/2025 Patric Jose Luis Bipolar disorder, current episode depressed, mild F31.31 ; Primary insomnia F51.01 ; Alzheimer's disease with late onset G30.1 ; CAMDEN (generalized anxiety disorder) F41.1 ; Negative depression screening Z13.31 and Encounter for screening for cardiovascular disorders Z13.[address] [facility] [address] [place] [address] 02/13/2025 Patric Jose Luis Bipolar disorder, current episode depressed, mild F31.31 ; Primary insomnia F51.01 ; Alzheimer's disease with late onset G30.1 ; Dietary counseling and surveillance Z71.3 ; CAMDEN (generalized anxiety disorder) F41.1 ; Encounter for screening for cardiovascular disorders Z13.6 and Encounter for screening for depression Z13.[address] [address] 03/12/2025 Patric Jose Luis Bipolar disorder, current episode depressed, mild F31.31 ; Primary insomnia F51.01 ; Alzheimer's disease with late onset G30.1 ; CAMDEN (generalized anxiety disorder) F41.1 and Heart failure, unspecified I50.[address] [address] 04/09/2025 Patric Jose Luis Bipolar disorder, current episode depressed, mild F31.31 ; Primary insomnia F51.01 ; Alzheimer's disease with late onset G30.1 ; CAMDEN (generalized anxiety disorder) F41.1 and Repeated falls R29.[address] [address] 05/12/2025 Patric Jose Luis Bipolar disorder, current episode depressed, mild F31.31 ; Primary insomnia F51.01 ; Alzheimer's disease with late onset G30.1 ; CAMDEN (generalized anxiety disorder) F41.1 ; Cerebral infarction, unspecified I63.9 ; Muscle weakness (generalized) M62.81 and Abnormal weight loss R63.[address] [facility] [address] [place] [address] 08/16/2024 Patric Jose Luis Generalized anxiety disorder F41.[address] [address] 09/13/2024 Patric Jose Luis Generalized anxiety disorder F41.1 and Primary insomnia F51.01 [facility] [address] [address] [place] [address] 11/26/[address] [facility] [address] [address] [place] [address] 03/28/2025 Patric mAaya Assessments Encounter Date Diagnosis (ICD Code) Assessment [...] in symptoms or concerns during this time. 01/09/2025 Bipolar disorder, current episode depressed, mild [...] unspecified 05/12/2025 Primary insomnia (ICD-10 - F51.01) 12/12/2024 Encounter for screening for cardiovascular disorders (ICD-10 - Z13.6) 11/14/2024 Encounter for screening for depression (ICD-10 - Z13.31) 10/17/2024 Bipolar disorder, current episode depressed, mild (ICD-10 - F31.31) Bipolar Disorder: Care Instructions material was published 10/17/2024 Primary insomnia (ICD-10 - F51.01) 07/15/2024 Bipolar disorder, current episode depressed, mild [...] be confirmed. - Consider referral to a public health doctor or fleet sales associate for further evaluation and management. Bipolar Disorder [...] Healthcare Access - Assessment: The patient has [employer] insurance and is concerned about potential changes in network coverage, specifically mentioning [place] potentially going out of network. - Plan: [...] Support - Assessment: Patient is working with [employer] for Medicaid application, despite concerns about eligibility. [...] be confirmed. - Consider referral to a public health doctor or fleet sales associate for further evaluation and management. Bipolar Disorder [...] Healthcare Access - Assessment: The patient has [employer] insurance and is concerned about potential changes in network coverage, specifically mentioning [place] potentially going out of network. - Plan: [...] assistive devices or physical therapy if needed. 10/17/2024 Alzheimer's disease with late onset (ICD-10 - G30.1) 12/12/2024 Encounter for screening for depression (ICD-10 - Z13.31) 11/14/2024 Encounter for screening for cardiovascular disorders (ICD-10 - Z13.6) 05/12/2025 Alzheimer's disease with late onset (ICD-10 [...] month. 01/09/2025 Primary insomnia (ICD-10 - F51.01) 09/19/2024 Cardiomyopathy, unspecified (ICD-10 - I42.9) Sciatica [...] symptoms or concerns during this time. 06/14/2024 Cardiomyopathy, unspecified (ICD-10 - I42.9) Legal [...] Support - Assessment: Patient is working with [employer] services for Medicaid application, despite concerns about [...] progress and address any new concerns. 09/19/2024 Primary insomnia (ICD-10 - F51.01) Sciatica [...] in symptoms or concerns during this time. 01/09/2025 Alzheimer's disease with late onset (ICD-10 [...] current episode depressed, mild (ICD-10 - F31.31) 04/09/2025 CAMDEN (generalized anxiety disorder) (ICD-10 - [...] CAMDEN (generalized anxiety disorder) (ICD-10 - F41.1) 06/14/2024 Primary insomnia (ICD-10 - F51.01) Legal [...] Support - Assessment: Patient is working with [employer] for Medicaid application, despite concerns about eligibility. [...] progress and address any new concerns. 07/15/2024 Primary insomnia (ICD-10 - F51.01) Shortness [...] be confirmed. - Consider referral to a public health doctor or fleet sales associate for further evaluation and management. Bipolar Disorder [...] Healthcare Access - Assessment: The patient has [employer] insurance and is concerned about potential changes in network coverage, specifically mentioning [employer] potentially going out of network. - Plan: [...] be confirmed. - Consider referral to a public health doctor or fleet sales associate for further evaluation and management. Bipolar Disorder [...] Healthcare Access - Assessment: The patient has [employer] insurance and is concerned about potential changes in network coverage, specifically mentioning [place] potentially going out of network. - Plan: [...] devices or physical therapy if needed. 06/14/2024 Alzheimer's disease with late onset [...] Support - Assessment: Patient is working with [employer] services for Medicaid application, despite concerns about [...] progress and address any new concerns. 10/17/2024 Hyperlipidemia (ICD-10 - E78.5) 11/14/2024 Primary insomnia (ICD-10 - F51.01) 12/12/2024 Primary insomnia (ICD-10 - F51.01) 05/12/2025 Cerebral infarction, unspecified (ICD-10 - I63.9) Recent stroke confirmed by patient history and multiple hospital admissions. MRI performed, results not communicated to patient. Three hospitalizations , including a four-day stay at [facility]. 02/13/2025 CAMDEN (generalized anxiety disorder) (ICD-10 - [...] - Consider medication adjustments if symptoms persist. 01/09/2025 CAMDEN (generalized anxiety disorder) (ICD-10 - F41.1) 09/19/2024 Alzheimer's disease with late onset (ICD-10 [...] Support - Assessment: Patient is working with [employer] for Medicaid application, despite concerns about eligibility. [...] progress and address any new concerns. 09/19/2024 CAMDEN (generalized anxiety disorder) (ICD-10 - [...] in symptoms or concerns during this time. 01/09/2025 Negative depression screening (ICD-10 - Z13.31) 02/13/2025 Encounter for screening for cardiovascular disorders (ICD-10 - Z13.6) 05/12/2025 Muscle weakness (generalized) (ICD-10 - M62.81) Patient reports significant weakness in legs and difficulty walking. Spends most of her time in a wheelchair. 12/12/2024 Alzheimer's disease with late onset (ICD-10 - G30.1) 11/14/2024 Alzheimer's disease with late onset (ICD-10 - G30.1) 10/17/2024 Hypothyroidism (ICD-10 - E03.9) 07/15/2024 CAMDEN (generalized anxiety disorder) (ICD-10 - [...] be confirmed. - Consider referral to a public health doctor or fleet sales associate for further evaluation and management. Bipolar Disorder [...] Healthcare Access - Assessment: The patient has [employer] insurance and is concerned about potential changes in network coverage, specifically mentioning [place] potentially going out of network. - Plan: [...] devices or physical therapy if needed. 07/15/2024 Hyperlipidemia (ICD-10 - E78.5) Shortness of [...] be confirmed. - Consider referral to a public health doctor or fleet sales associate for further evaluation and management. Bipolar Disorder [...] Healthcare Access - Assessment: The patient has [employer] insurance and is concerned about potential changes in network coverage, specifically mentioning [place] potentially going out of network. - Plan: [...] devices or physical therapy if needed. 11/14/2024 CAMDEN (generalized anxiety disorder) (ICD-10 - F41.1) 12/12/2024 CAMDEN (generalized anxiety disorder) (ICD-10 - F41.1) 05/12/2025 Abnormal weight loss (ICD-10 - R63.4) Patient reports significant weight loss and difficulty eating. Expressed frustration about not being able to obtain a scale. 02/13/2025 Encounter for screening for depression (ICD-10 - Z13.31) 01/09/2025 Encounter for screening for cardiovascular disorders (ICD-10 - Z13.6) 09/19/2024 Hyperlipidemia (ICD-10 - E78.5) Sciatica Pain [...] Support - Assessment: Patient is working with [employer] services for Medicaid application, despite concerns about [...] be confirmed. - Consider referral to a public health doctor or fleet sales associate for further evaluation and management. Bipolar Disorder [...] Healthcare Access - Assessment: The patient has [employer] insurance and is concerned about potential changes in network coverage, specifically mentioning [place] potentially going out of network. - Plan: [...] Support - Assessment: Patient is working with [employer] for Medicaid application, despite concerns about eligibility. [...] progress and address any new concerns. 09/19/2024 Left bundle branch block (LBBB) (ICD-10 [...] - E78.5) 11/14/2024 Hypothyroidism (ICD-10 - E03.9) 07/15/2024 Hypothyroidism (ICD-10 [...] be confirmed. - Consider referral to a public health doctor or fleet sales associate for further evaluation and management. Bipolar Disorder [...] Healthcare Access - Assessment: The patient has [employer] insurance and is concerned about potential changes in network coverage, specifically mentioning [place] potentially going out of network. - Plan: [...] devices or physical therapy if needed. 12/12/2024 Hypothyroidism (ICD-10 - E03.9) 06/14/2024 Hypothyroidism (ICD-10 [...] to Furosemide (Lasix) issue. Upcoming appointment with edge polisher on the . - Plan: - [...] member for money and food. Power of insurance defense attorney is with brother Mauricio Pacheco. - Plan: - Encourage patient to discuss financial concerns with power of insurance defense attorney and establish boundaries with family members. [...] cardiac device monitoring - Follow up with public health doctor as scheduled in February [employer] Assessment: [...] without a caregiver for 2 months. A medical field representative from an aging services organization has contacted [employer] to address this issue. Plan: - Follow up on the status of caregiver assignment through [employer] Disclaimer: This note has been transcribed using speech recognition software and serves as a reflection of the patient's visit. While efforts have been made to ensure accuracy, there may be errors, including affiliate manager inaccuracies and misspellings of medication names. This document should not be considered a verbatim record, and any discrepancies should be verified with the provider. 01/09/2025 Other Medication Management and Access - Assessment: Patient reports discontinuation of Entresto due to loss of sample access and high uzb-ar-mdyqur costs (approximately $600/month). This has led to [...] or reduced-cost medications. - Follow up with public health doctor (Dr. Rodriguez) regarding medication changes and current [...] and daily functioning. - Consider referral to health and social care teacher for additional support if needed. Mood and [...] without using your hands.3. Strength Training Exercises- Okq-jt-bdhuf: rise from a chair repeatedly.- Wall push-ups: [...] Next Appt Details Provider Name:Patric Amaya , 06/11/2025 01:00:00 PM, [facility], [facility] [address], [address], Provider Name:Patric Amaya , 07/09/2025 01:00:00 PM, [address], [facility] [address], [place], [address], Insurance Providers Payer Name Payer Address Payer Phone Subscriber Number Group Number Insured Name Patient Relationship to Insured Coverage Start Date Coverage End Date [facility] Medicare Replacement/ Advantage - Ppo [address] [address] [place] [address] [id number] JAILENE MARTINO Self - patient is the [...] Date(Month/Year) Implantation of cardiac defibrillator libby cook ([id number]) 04/12/2021 Hospitalization History Reason Date(Month/Year) Fall and pneumonia, a week ago monday Stroke, silvana or, date not specified Stroke, silvana or, four-day admission Stroke, silvana or, two additional admi ssions
--- OUTSIDE RECORDS SUMMARY | 2025-06-09 14:15 | XMS_ITS | Clinical Summary ---
Author Organization [facility] [place] [address] Address [address] [place] [address] Care Team Providers Care Maintenance Aide Name Role Phone Bandar Gaffney MD Unavailable [phone] Dillan Reddy MD Primary Care Provide r [...] Summary. 30 tablet 03/26/20 23 026 Active carvediloL (COREG) 25 mg tablet Take [...] daily 90 tablet 3 02/11/20 25 Active sacubitriL-valsart an (ENTRESTO) 24-26 mg tabletIndications: chronic heart failure Take 1 tablet by mouth 2 (two) times a day 180 tablet 3 02/25/20 25 Active amiodarone (PACERONE) 200 mg tablet Take 1 tablet by mouth once daily 60 tablet 05/26/20 25 Active amiodarone (PACERONE) 200 mg tablet Take 1 tablet (200 mg total) by mouth daily 60 tablet 3 10/02/19 25 025 Discontinued Active Problems Problem Noted Date Diagnosed Date ICD (implantable cardioverter-defibrillator) dis charge 03/23/2023 ICD (implantable cardioverte r-defibrillator), biventricular, in situ 04/13/2021 Overview (04/21/2023): Dodge DDD Mancos BI-V ICD imp on 04/12/21 for DCM, VT, Afib. Yeimy. Nora. Jose De Jesus de la torre. [employer] Advisory--risk for loss of [...] Encounters Date Type Department Care Team Description 06/09/2025 Telephone [facility] Medical [facility] Cardiology [address] [place] [address] LYNN Soto [phone] Samy Ceja MD 05/27/2025 Telephone [facility] Cardiology [address] [place], [place] [address] [phone] Samy Ceja MD from Last 3 Months [...] often do you attend chur ch or church services? 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 Gender Identity Not on file Sexual [...] Assessment 03/26/2024 03/26/2023 Covid-19 Vaccine (6 - 2024-2 6 season) 2025 05/26/2022, 02/22/2022, 06/30/2021, Additional history exists Influenza Vaccine (#1) 2025 , 05/12/2020, 06/04/2019, Additional history exists Zoster Vaccine Completed 05/01/2018, 01/04/2018 Pneumococcal vaccine 65+ Completed 05/15/2018, 11/2015 Medical Devices Implanted Type Area Supervisor Device Identifier Shelf Expiration Date Model / Serial / Lot [employer] V[employer] [id number] Defib Cardiac [id number] Mancos Hf Df4 Is-4 Is-1 Cnctr - [id number] - [id number] Implanted:Qty: 1 on 04/12/2021 by Bandar Gaffney MD at [facility] ICD [employer] [id number] 02/01/2023 C [id number] / [id number] / [employer] 7120q/65 Durata 7fr 65cm 2 Coil Df-4 True Bipolar Active Fixation - [id number] - [id number] Implanted:Qty: 1 on 04/12/2021 by Bandar Gaffney MD at [facility] Lead [employer] [id number] 02/01/2022 7120Q/65 / [id number] / [employer] 2088tc/52 Tendril Sts 6fr 52cm Is-1 Connector Active Fixation Bipolar Soft - [id number] - [id number] Implanted:Qty: 1 on 04/12/2021 by Bandar Gaffney MD at [facility] Lead [employer] [id number] 03/03/2024 2088TC/52 / [id number] / [employer] 1458q/86 Quartet 5fr [id number] Electrode Is-4 Connector Steerable Tip - [id number] - [id number] Implanted:Qty: 1 on 04/12/2021 by Bandar Gaffney MD at [facility] Lead [employer] [id number] 02/02/2024 1458Q/86 / [id number] / Insurance [facility] MEDICARE ADVANTAGE [facility] Address: [address] [address] [place] [address] [address] [facility] [place] [place] [id number] [facility] MEDICARE ADVANTAGE [facility] Address: [address] [place] [address] [facility] Address: [address] [address] [place] [address] Advance Directives For more information, please contact: [phone] * Full Code (Latest Code Status on File) Date Activated Date Inactivated Comments 03/23/2023 7:04 AM 03/26/2023 7:27 PM Care Teams Maintenance Aide Relationship Specialty Start Date End Date Dillan Reddy MD [address] [facility] [address] [place] [address] PCP - General Internal Medicine 11/09/23 Bandar Gaffney MD Consulting Physician Cardiology 04/13/21
--- OUTSIDE RECORDS SUMMARY | 2025-06-09 14:15 | XMS_ITS | Encounter Summary ---
Author Organization [facility] Healthcare Address [address] [place] [address] Care Team Providers Care Cinder Pitman Name Role Phone Bandar Gaffney MD Unavailable [phone] Dillan Reddy MD Primary Care Provide r Encounter Details Date Type Department Care Team (Late st Contact Info) Description 06/09/2025 Telephone [facility] Medical Group Cardiology [address] [place] [phone] Samy Ceja MD [phone] [address] Social History Tobacco Use Types Packs/Day [...] any clubs o r organizations such as orthodox groups, unions, fraternal or athletic groups, [...] on file Legal Sex Female 2:33 AM 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 She informed me that she just got home from the hospital last Monday and she was not sure what to do with the mobile jennifer. I instructed her to have a family member or friend there, using their phone, call [employer] at [phone] for assistance. I asked her to call me back and update me on what they learned from the monitor support department.She verbalized understanding. documented in this encounter Plan of Treatment Not on file documented as of this encounter Visit Diagnoses Not on filedocumented in this encounter Care Teams Cinder Pitman Relationship Specialty Start Date End Date Dillan Reddy MD [address] [address] PCP - General Internal Medicine 11/09/23 Bandar Gaffney MD Consulting Physician Cardiology 04/13/21 documented as of this encounter
--- OUTSIDE RECORDS SUMMARY | 2025-06-09 14:15 | XMS_ITS | Encounter Summary ---
Author Organization [facility] Healthcare Address [address] [place] [address] Care Team Providers Care Etl Architect Name Role Phone Lana Tovar MD Primary Care Provider + Bandar Gaffney MD Unavailable [phone] Dillan Reddy MD Primary Care Provide r Encounter Details Date Type Department Care Team (Late st Contact Info) Description 03/26/2018 Orders Only [facility] [address] [place] [id number] Scanning, Provider Social History Tobacco Use Types Packs/Day Years Used Date Smoking Tobacco: Never Smokeless Tobacco: Never Alcohol Use Standard Drinks/Week Comments No 0 (1 standard drink = 0.6 oz pur e alcohol) Comments Unknown Sex and Gender Information Value Date Recorded Sex Assigned at Not on file Legal Sex Female 2:33 AM HOC[employer] Gender Identity Not on file Sexual Orientation [...] on filedocumented in this encounter Care Teams Etl Architect Relationship Specialty Start Date End Date Lana Tovar MD PCP - General 3/31/17 3/6/24 Dillan Reddy MD [address] [address] PCP - General Internal Medicine 11/09/23 Bandar Gaffney MD Consulting Physician Cardiology 04/13/21 documented as of this encounter
--- OUTSIDE RECORDS SUMMARY | 2025-06-09 14:15 | XMS_ITS | Clinical Summary ---
Author Organization 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
--- OUTSIDE RECORDS SUMMARY | 2025-06-09 14:15 | XMS_ITS | Data Portability ---
Author Organization [place] [facility], Main Office Address [address] [place] [address] Care Team Providers Care Android Architect Name Role Phone ROSEVISHNUROQUE Holden Primary Care Provider LANA TOVAR Referring Provider PEDRO AMAYA Psychiatrist LORETA HAQUE Diving Coach JENNIFFER ROJAS Insole Doubler [phone] EVON CEJA Cardiac Surgeon Assessment Encounter Date Assessment Date Assessment LastModified by Organization Details LastModified Time 01/01/2025 01/01/2025 Assessment: Never smoker (2nd hand smoking) Mild COPD Plan: The following were reviewed and explained to the patient: Chest CT 03/23/21 no P.E., up to [address] 12/13/23 up to 6 mm RUL nodules and GGO Chest CT 04/22/24 no nodules [place] PFT 05/25/23 decreased FEV1/FVC, FEV1 1.52 L (73%), TLC 5.26 L (101%), RV 3.04 L (128%), DLCO 54%, DLCO/VA 74% [place] PFT 11/08/24 decreased FEV1/FVC, FEV1 1.28 L (73%), TLC 4.91 L (107%), RV 3.08 L (138%), DLCO 46%, DLCO/VA 84% Cough/Dyspnea workup will be done as follows: Respiratory allergen panel for [facility] Serum IgE Serum total IgG, IgG1, IgG2, IgG3, IgG4 Aaisl-4-dgdaqknkie n phenotype and level TB stimulated gamma [...] and GGO Chest CT 04/22/24 no nodules [place] PFT 05/25/23 decreased FEV1/FVC, FEV1 1.52 L (73%), TLC 5.26 L (101%), RV 3.04 L (128%), DLCO 54%, DLCO/VA 74% [place] PFT 11/08/24 decreased FEV1/FVC, FEV1 1.28 L [...] year, March 2026 Not available 03/13/2025 15:20:22 04/21/2025 04/21/2025 01/02/2024: ER labs WBC 16.5H Cr 1.10, Gluc 218 Trop 0.059H Xr chest mild pulm edema 06/12/2024: TG 192 K 3.4, gluc 62, BUN 22, Cr 1.83, GFR 27, AST 63 MCV 105.0 09/16/2024: K 5,4, BUN 27, Cr 1.51, GFR 33, ALT 40 TG 231 MCV 105 04/18/2025: INR 2.9, did discuss with the RN courtney Not available 04/21/2025 15:17:49 05/07/2025 05/07/2025 01/02/2024: ER labs WBC 16.5H Cr 1.10, Gluc 218 Trop 0.059H Xr chest mild pulm edema 06/12/2024: TG 192 K 3.4, gluc 62, BUN 22, Cr 1.83, GFR 27, AST 63 MCV 105.0 09/16/2024: K 5,4, BUN 27, Cr 1.51, GFR 33, ALT 40 TG 231 MCV 105 04/18/2025: INR 2.9, did discuss with the HH RN 04/21/2025: [place] [facility] BUN 25, Cr 1.19, GFR 44, AST/ALT 53/57 WBC 10.4, MCV 102.4 I have reconciled the patient's medications post their discharge from inpatient facility. Not available 05/07/2025 12:00:54 Plan of Treatment Reminders Order Date Submit Date Provider Last Modified By Organization Details Last Modified Time Details Appointments Any 15 2024 01:30P Isabel santoyo MD Not available Not available Not available Any 15 2025 02:00P M Loreta Haque MD Not available Not available Not available Lab urinalysi s, dipstick 2024 025 dacia la2 [facility] [address], [place], [address], 05/07/2025 13:29:07 urinalysi s, complete 2024 025 [facility] (Lab), [address], [place], [address], 05/08/2025 00:04:11 culture, urine + sensitivi ty 2024 025 [facility] (Lab), [address], [place], [address], 05/10/2025 11:51:26 INR, blood [address] (Lab), [address], [place], [address], 05/15/2025 16:29:37 CMP, serum or plasma 2024 025 [facility] (Lab), [address] [place], [address], 05/07/2025 17:37:51 lipid panel, serum 2024 025 [facility] (Lab), [address] [place], [address], 05/07/2025 17:37:51 CBC w/ auto diff 2024 025 [facility] (Lab), [address] [place], [address], 05/07/2025 17:37:51 TSH, serum or plasma 2024 025 [facility] (Lab), [address] [place], [address], 05/07/2025 17:37:51 T4, free, serum 2024 025 [facility] (Lab), [address] [place], [address], 05/07/2025 17:37:51 vitamin B12 + folate, serum or blood 2024 025 [facility] (Lab), [address] [place], [address], 05/07/2025 17:37:51 CMP, serum or plasma 2024 025 [facility] (Lab), [address] [place], [address], 05/07/2025 15:59:19 lipid panel, serum [address] (Lab), [address] [place], [address], 04/21/2025 16:58:10 CBC w/ auto diff [address] (Lab), [address] [place], [address], 04/21/2025 16:58:10 TSH, serum or plasma [address] (Lab), [address] [place], [address], 04/21/2025 16:58:11 T4, free, serum [address] (Lab), [address] [place], [address], 04/21/2025 16:58:11 vitamin B12 + folate, serum or blood [address] (Lab), [address] [place], [address], 04/21/2025 16:58:11 CMP, serum or plasma 2024 025 [facility] (Lab), [address] [place], [address], 04/22/2025 01:40:15 lipid panel, serum [address] (Lab), [address] [place], [address], 01/13/2025 15:45:35 CBC w/ auto diff 2024 025 [facility] (Lab), [address] [place], [address], 03/25/2025 02:16:42 TSH, serum or plasma [address] (Lab), [address] [place], [address], 01/13/2025 15:45:36 T4, free, serum [address] [place] [address] (Lab), [address] [place], [address], 01/13/2025 15:45:36 vitamin B12 + folate, serum or blood [address] (Lab), [address] [place], [address], 01/13/2025 15:45:36 alpha-1-a ntitrypsi n (aat) phenotype , serum [address] - Outpatient Lab, [address] [place], [address], 04/03/2025 12:06:48 BNP (B-type natriuret ic peptide), serum or plasma [address] Outpatient Lab, [address] [place], [address], 04/03/2025 12:07:01 ige, total, serum [address] Outpatient Lab, [address] [place], [address], 04/03/2025 12:07:16 tb (M tuberculo sis), ifn-gamma giovanni, blood 2024 025 [facility], [address] [place], [address], 02/21/2025 08:41:01 eosinophi l count, manual, blood (OBS) 2024 025 [facility], [address] [place], [address], 02/21/2025 08:41:31 [address] s 1+2+3+4, serum [address] Outpatient Lab, [address] [place], [address], 04/03/2025 12:07:28 respirato ry allergen panel - [facility] b 2024 025 [facility] Outpatient Lab, [address] [place], [address], 02/21/2025 08:39:13 Referral gynecolog ist referral - Please call patient to schedule an appointme nt. Thank you. 2024 025 BROWN Conway MD, [address], [place], [address], 05/08/2025 11:03:49 nephrolog ist referral - Please call patient to schedule an appointme nt. Thank you. 2024 025 BROWN Causey MD, [address], [place], [address], 05/08/2025 11:22:39 cardiolog ist referral - Please call patient to schedule an appointme nt. Thank you. 2024 025 BROWN Ceja MD, [address], [address], [place], [address], 05/08/2025 11:50:05 nephrolog ist referral - Please call patient to schedule an appointme nt. Thank you. 2024 025 BROWN Causey MD, [address], [address], [place], [address], 04/22/2025 15:04:08 gynecolog ist referral - Please call patient to schedule an appointme nt. Thank you. 2024 025 BROWN Conway MD, [address], [place], [address], 04/22/2025 14:31:01 cardiolog ist referral - Please call patient to schedule an appointme nt. Thank you. 2024 025 BROWN Ceja MD, [address], [address], [place], [address], 04/22/2025 15:49:07 pulmonolo gist referral - Please call patient to schedule an appointme nt. Thank you. 2024 025 [email or web address] Loreta Haque MD, [address] [place], [address], 04/22/2025 14:30:41 gynecolog ist referral - Please call patient to schedule an appointme nt. Thank you. 2024 025 [email or web address] Conway MD, [address], [place], [address], 04/16/2025 08:30:39 pulmonolo gist referral - Please call patient to schedule an appointme nt. Thank you. 2024 025 rupal Haque MD, [address] [place], [address], 04/21/2025 10:20:39 Procedures None recorded. Surgeries None recorded. Imaging MAMMO, screening , bilateral - Please call patient to schedule. [address] (Imaging), [address], [place], [address], 05/07/2025 14:19:18 MAMMO, screening , bilateral - Please call patient to schedule. [address] (Imaging), [facility], [place], [address], 04/21/2025 16:11:26 MAMMO, screening , bilateral - Please call patient to schedule. [address] (Imaging), [address], [place], [address], 04/14/2025 19:25:03 Medication Orders albuterol sulfate HFA 90 mcg/actua tion aerosol inhaler 2024 025 leonel [facility], [address] [place], [address], 04/21/2025 14:37:01 nystatin- triamcino lone 100,000 unit/g-0. 1 % topical cream 2024 025 [facility] [address] [place], [address], 01/13/2025 15:43:11 albuterol sulfate HFA 90 mcg/actua tion aerosol inhaler 2024 025 [email or web address] [facility] [address], [address] [place], [address], 04/21/2025 14:37:01 Patient TargetsNo targets recorded. Patient Instructions Encounter Date Encounter Id Patient Instructions Last Modified By Organization Details Last Modified Time 05/07/2025 [id number] Thank you for your visit to our office today. We would like to request that you reach out to your referring or previous provider and request that they send us a Summary of Care in electronic form, so that we may have it on file in your medical record. At your visit, we had the medical records we needed to provide you with the best possible care; however, for insurance purposes, an electronic Summary of Care is beneficial. Thank you for your assistance in obtaining this information and we look forward to providing continued care to you. Please review your medication list from the Summary of Care for this visit. If there are any differences from what you are currently taking at home, please call us to discuss. [email or web address] Not available 05/07/2025 11:45:17 Homebound Status : Patient has an inability to leave the home without a taxing effort and assistance from another person Required Home Health Services: longterm, physical therapy, occupational therapy Durable Medical Equipment needed: walker Billing Guidelines CPT code 59183- Transitional Care Management services with moderate medical decision complexity (uuvo-ik-xjdg visit within 14 days of discharge). CPT code 40012- Transitional Care Management services with high medical decision complexity (tztt-mp-stcl visit within 7 days of discharge). [email or web address] Not available 05/07/2025 12:16:27 Reason for Referral Project Intern Referral for Gy necologic examination Please call patient to schedule an appointment. Thank you. Referring Physician: Roque Reddy, Internal Medicine, Encounter Date: 01/13/2025 Diving Coach Referral for M ultiple nodules of lung Please call patient to schedule an appointment. Thank you. Referring Physician: Roque Reddy, Internal Medicine, Encounter Date: 01/13/2025 Project Intern Referral for Gy necologic examination Please call patient to schedule an appointment. Thank you. Referring Physician: Roque Reddy Internal Medicine, Encounter Date: 04/21/2025 Diving Coach Referral for M ultiple nodules of lung Please call patient to schedule an appointment. Thank you. Referring Physician: Roque Reddy Internal Medicine, Encounter Date: 04/21/2025 Export Freight Manager Referral for Ch ronic kidney disease Please call patient to schedule an appointment. Thank you. Referring Physician: Roque Reddy Internal Medicine, Encounter Date: 04/21/2025 Usability Engineer Referral for Es sential hypertension Please call patient to schedule an appointment. Thank you. Referring Physician: Roque Reddy Internal Medicine, Encounter Date: 04/21/2025 Project Intern Referral for Gy necologic examination Please call patient to schedule an appointment. Thank you. Referring Physician: Roque Reddy Internal Medicine, Encounter Date: 05/07/2025 Export Freight Manager Referral for Ch ronic kidney disease Please call patient to schedule an appointment. Thank you. Referring Physician: Roque Reddy Internal Medicine, Encounter Date: 05/07/2025 Usability Engineer Referral for Es sential hypertension Please call patient to schedule an appointment. Thank you. Referring Physician: Roque Reddy Internal Medicine, Encounter Date: 05/07/2025 Results Created Date Observation Date Name Description Value Unit Range Abnormal Flag Note LastModifiedBy Organization Detail LastModifiedTime 01/17/2001/16/2025 PT/IN R PT 80.3 Not Available [facility] Internal Med [facility] [address], [place], [address], 01/16/2025 14:26:29 01/17/20 25 01/16/2025 PT/IN R INR 6.7 Not Available [facility] Internal Med [facility] [address], [place], [address], 01/16/2025 14:26:29 02/19/20 25 02/18/2025 imagi ng/di agnos tic resul t No observ ation record ed. [address], [place], [address], 02/18/2025 19:39:24 03/24/20 25 03/24/2025 imagi ng/di agnos tic resul t No observ ation record ed. [address], [place], [address], 03/24/2025 23:46:59 03/25/20 25 03/25/2025 imagi ng/di agnos tic resul t No observ ation record ed. [address] [facility], [place], [address], 03/25/2025 16:04:39 03/25/20 25 03/25/2025 imagi ng/di agnos tic resul t No observ ation record ed. [address], [place], [address], 03/25/2025 16:52:17 03/28/20 25 03/28/2025 imagi ng/di agnos tic resul t No observ ation record ed. [address] [facility], [place], [address], 03/28/2025 16:05:30 04/21/20 25 04/21/2025 imagi ng/di agnos tic resul t No observ ation record ed. [address], [place], [address], 04/21/2025 17:47:43 04/21/20 25 04/21/2025 imagi ng/di agnos tic resul t No observ ation record ed. [address], [place], [address], 04/21/2025 17:51:22 04/21/20 25 04/21/2025 imagi ng/di agnos tic resul t No observ ation record ed. [address] [facility], [place], [address], 04/21/2025 18:04:10 04/22/20 25 04/22/2025 imagi ng/di agnos tic resul t No observ ation record ed. [address] [address], [place], [address], 04/22/2025 20:45:38 04/22/20 25 04/22/2025 imagi ng/di agnos tic resul t No observ ation record ed. [address] [address], [place], [address], 04/22/2025 20:50:16 04/22/20 25 04/22/2025 imagi ng/di agnos tic resul t No observ ation record ed. [address] [address], [place], [address], 04/22/2025 21:00:35 04/24/20 25 04/24/2025 imagi ng/di agnos tic resul t No observ ation record ed. [address] [address], [place], [address], 04/24/2025 10:22:15 05/07/20 25 05/07/2025 XR, hip + pelvi s, unila teral , 2 or 3 view No observ ation record ed. [address] [address], [place], [address], 05/07/2025 14:35:36 05/07/20 25 05/07/2025 imagi ng/di agnos tic resul t No observ ation record ed. [address] [address], [place], [address], 05/07/2025 16:43:13 05/07/20 25 05/07/2025 imagi ng/di agnos tic resul t No observ ation record ed. [address], [place], [address], 05/07/2025 17:50:39 05/20/20 25 05/20/2025 imagi ng/di agnos tic resul t No observ ation record ed. [address], [place], [address], 05/20/2025 07:05:22 05/21/20 25 05/21/2025 imagi ng/di agnos tic resul t No observ ation record ed. [address], [place], [address], 05/21/2025 21:58:15 05/26/20 25 05/26/2025 imagi ng/di agnos tic resul t No observ ation record ed. [address], [place], [address], 05/26/2025 13:21:28 05/26/20 25 05/26/2025 imagi ng/di agnos tic resul t No observ ation record ed. [address], [place], [address], 05/26/2025 13:37:43 05/26/20 25 05/26/2025 imagi ng/di agnos tic resul t No observ ation record ed. [address], [place], [address], 05/26/2025 23:06:53 Result Notes None recorded. Problems Name Problem SNOMED Code Status Onset Date Resolution Date Notes Provider Name and Address Organization Details Recorded Time Gastroesoph ageal reflux disease 499881330 Active Loreta Haque MD [address], [place], [address], [employer] [facility] [employer] 08:34:21 Vitamin D deficiency 18470556 Active Loreta Haque MD [address], [place], [address], [employer] 5 08:33:45 Hypothyroid ism 13302877 Active Loreta Haque MD [address], [place], [address], [employer] [facility] [employer] 5 08:34:16 Long-term current use of anticoagula nt 155031661 Active 2020 Loreta Haque MD [address], [place], [address], [employer] 5 08:34:04 Osteoporosi s 50335017 Active 2020 DEXA Loreta Haque MD [address], [place], [address], [employer] [facility] [employer] 5 08:33:47 Essential hypertensio n 88044328 Active 2022 Loreta Haque MD [address], [place], [address], [employer] 5 08:34:24 Moderate recurrent major depression 86908664 Active 2023 Loreta Haque MD [address], [place], [address], [employer] 5 08:33:58 Nonischemic congestive cardiomyopa thy 562545582511 Active 2023 Loreta Haque MD [address], [place], [address], [employer] 5 08:33:55 Hiatal hernia 71071802 Active 2023 Loreta Haque MD [address], [place], [address], [employer] 5 08:34:19 Hyperlipide tay 50751910 Active 2023 Loreta Haque MD [address], [place], [address], [employer] [facility] [employer] 5 08:34:18 Atrial fibrillatio n 37336161 Active 2023 Loreta Haque MD [address], [place], [address], [place] [facility] 5 08:34:34 Chronic kidney disease 373253183 Active 2024 Loreta Haque MD [address], [place], [address], [place] [facility] 5 08:34:30 Mild chronic obstructive pulmonary disease 154720078 Active 2024 Loreta Haque MD [address], [place], [address], [place] [facility] 5 08:34:01 Nasal sinus problem 716861539 Active 2024 Susana Kimbrough, [facility] null, [place] [facility] 5 15:01:35 Serum vitamin B12 below reference range 322683222 Active 2024 Roque santoyo MD [address], [place], [address], [place] [facility] 5 14:33:29 Persistent insomnia 415974991 Active 2024 Roque santoyo MD [address], [place], [address], [place] [facility] 5 14:33:29 Abdominal pain 64902313 Active 2024 Roque santoyo MD [address], [place], [address], [place] [facility] 5 14:33:29 Mass of neck 896440707 Active 2024 Roque santoyo MD [address], [place], [address], [place] [facility] 5 14:33:29 Dizziness 401757072 Active 2024 Roque santoyo MD [address], [place], [address], [employer] 14:33:29 Multiple nodules of lung 693400145 Active 2024 Roque santoyo MD [address], [place], [address], [employer] [place] [employer] 14:33:29 Dental caries 66392465 Active 2024 Roque santoyo MD [address], [place], [address], [employer] 14:33:30 Pain of right hip joint 4272209640330 02 Active 2024 Roque santoyo MD [address], [place], [address], [employer] 14:33:30 Tear of skin 516188403 Active 2024 Roque santoyo MD [address], [place], [address], [employer] 14:33:30 Hyperkalemi a 03540120 Active 2024 Roque snatoyo MD [address], [place], [address], [employer] 14:33:30 Eruption 301944780 Active 2024 Roque santooy MD [address], [place], [address], [employer] 14:33:30 Nausea 792059886 Active 2024 Roque santoyo MD [address], [place], [address], [employer] 14:33:30 Cerebrovasc ular accident 227129880 Active 2024 PEREZ Hills null, [facility] [employer] [facility] 5 15:42:56 Urinary symptoms 969313943 Active 2024 Lorraine Morris MA null, [facility] [employer] [facility] 5 13:00:14 Posterior rhinorrhea 75490769 Active 2024 PEREZ [place] null, [facility] [employer] [facility] 5 15:00:02 Acute respiratory failure 69568777 Active 2024 PEREZ [place] null, [facility] [employer] [facility] 5 12:29:17 Notes:Medical History: Cereb ral atrophy Depression/Anxiety Rhinitis [...] 2014 AICD placement 2021 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 Procedures Surgical History Date Name Laterality Status Provider Name and Address Organization Details Recorded Time 05/07/20 25 Transitional_Care _Management completed Roque Reddy MD [address] [place] [address], [address], [facility] [employer] [facility] 05/07/2025 12:00:21 04/17/20 24 Chronic care management services completed Jaclyn Huizar [facility] [email or web address] [facility] 06/03/2024 19:11:19 02/26/20 24 Chronic care management services completed Ara Ozuna RN [facility] [employer] [facility] 02/26/2024 14:23:59 01/16/20 24 Chronic care management services completed Ara Ozuna RN [facility] [employer] [facility] 01/16/2024 18:07:23 12/06/19 24 Medicare Wellness CPT Code, subsequent completed PAIGE HillsA [employer] 12/06/2023 14:03:15 04/10/20 23 Transitional_Care _Management completed THI Gatica [address], [facility] [address], [place], [address], [employer] [facility] 04/11/2023 08:40:38 Rotator cuff surgery completed Lorraine Morris MA [employer] [employer] 01/08/2024 11:34:43 operation on intestine completed Lorraine Morris MA [employer] 01/08/2024 11:35:04 Tonsillectomy completed Lorraine Morris MA [employer] [facility] [employer] 01/08/2024 11:35:14 Tubal Ligation completed Lorraine Morris MA [employer] [facility] [employer] 01/08/2024 11:37:01 Imaging Results None recorded. Procedure Notes None recorded. Medical Equipment None Reported. Allergies Allergen ID Allergen Name Allergen Category Reaction Reaction Severity Criticality Documentation Date Start Date Code Code System Note Provider Name and Address Organization Details Recorded Time 00120 tramadol medicatio n Not available Not available Not available 11/02/2022 01732 RxNorm Vomit ing Not Available [facility] 3 09:34:02 40695 Non-stero idal anti-infl ammatory agent (substanc e) medicatio n hives moderate Not available 11/02/2022 28280 5008 SNOMED Also CKD Not Available [facility] 3 09:34:02 94566 Lamictal medicatio n rash Not available Not available 11/02/2022 88450 2 RxNorm Not Available [facility] 3 09:34:02 05576 codeine medicatio n nausea Not available Not available 11/18/2022 2670 RxNorm MIKE Linder [address], [facility] [address], [place], [address], [employer] [facility] [employer] [facility] 3 10:59:48 Medications Name Sig Start Date Stop Date Status Note LastModified by Organization Details LastModified Time losartan 50 mg tablet TAKE 1 TABLET BY MOUTH ONCE DAILY 05/07 completed Not Available Not Available Not Available quetiapin e 25 mg tablet 05/07 [...] SURGERY AND CONTINUE FOR ONE WEEK AFTER 04/21 completed Not Available Not Available Not Available amiodaron e 200 mg tablet TAKE [...] 4 TO 6 HOURS NEEDED FOR PAIN 04/21 completed Not Available Not Available Not Available prochlorp erazine maleate 5 mg tablet [...] SURGERY AND CONTINUE FOR TWO WEEKS AFTER 04/21 completed Not Available Not Available Not Available oxycodone -acetamin ophen 5 mg-325 mg [...] AFTER SURGERY AND CONTINUE FOR THREE WEEKS 04/21 completed Not Available Not Available Not Available Euthyrox 125 mcg tablet Take 1 [...] MOUTH TWICE DAILY, FOR ON MONDAY AND Monday active Not Available Not Available Not Avai lable warfarin 5 mg tablet Take one tablet daily 04/24 completed Not Available Not Available Not Available Unithroid 150 mcg tablet TAKE 1 TABLET BY [...] BY MOUTH DIRECTED ON INSIDE OF PACKAGE 05/07 completed Not Available Not Available Not Available albuterol sulfate HFA 90 mcg/actua tion aerosol inhaler Inhale 1 puff every 4 hours by inhalati on route as needed. 04/21 completed Not Available Not Available Not Available hydroxyzi ne HCl 10 mg tablet [...] on 4 mg disintegr ating tablet DISSOLVE 1 TABLET IN MOUTH TWICE DAILY NEEDED FOR 7 DAYS active Not Available Not Available No t Available cefdinir 300 mg capsule TAKE 1 CAPSULE BY MOUTH EVERY 12 HOURS FOR 5 DAYS active Not Available Not Available No t Available fluticaso ne propionat e 50 mcg/actua tion nasal spray,kamari pension [place] 1 spray every day by intranas al [...] Not Available Not Available Not Available Fluvirin 5391-9281 45 mcg (15 mcg x 3)/0.5 mL intramusc ular suspensio n INJECT 0.5 ML INTRAMUS CULARLY DIRECTED . active Not Available Not Available No t Available Anti-Diar rheal 07/11 completed Not Available Not Available Not Available Afluria 6203-7514 (PF) 45 mcg (15 mcg x 3)/0.5 [...] 1 capsule every day by oral route. 04/21 completed Not Available Not Available Not Available Fluzone High-Dose 1566-3030 (PF) 180 mcg/0.5 mL intramusc ular syringe 09/06 completed Not Available Not Available Not Available Fluzone High-Dose 8710-6787 (PF) 180 mcg/0.5 mL intramusc ular syringe 05/12 completed Not Available Not Available Not Available Shingrix (PF) 50 mcg/0.5 mL intramusc ular suspensio n, kit 05/12 completed Not Available Not Available Not Available Fluzone High-Dose 2168-0034 (PF) 180 mcg/0.5 mL intramusc ular syringe 05/12 completed Not Available Not Available Not Available Fluzone High-Dose (PF) 180 mcg/0.5 mL intramusc ular syringe active Not Available Not Available Not Available Fluzone High-Dose Quad (PF) 240 mcg/0.7 mL IM syringe ADM 0.7ML IM UTD active Not Available Not Available No t Available Vitals Date Recorded Heart rate Oxygen saturation Oxygen saturation in Arterial blood by Pulse oximetry Heart rate Respiratory rate Provider Name and Address Organization Details Last Updated DateTime 5 91 /min 97 % 97 % 91 /min 15 /min Loreta Haque MD [address] [facility], [facility] [address], [place], [address], [place] - [facility] [employer] 5 15:15:58 Date Recorded Body height Body mass index (BMI) Body weight Body temperature Systolic And Diastolic Provider Name and Address Organization Details Last Updated DateTime 01/01/2025 167.64 cm 28.7 kg/m2 41159.4 4 g 98.3 [degF] 124/76 mm[Hg] Lauryn Raines MA [facility] [employer] [facility] 14:56:19 Date Recorded Body height Body mass index (BMI) Body weight Body temperature Heart rate Oxygen saturation Oxygen saturation in Arterial blood by Pulse oximetry Pain severity - 0-10 verbal numeric rating [Score] - Reported Systolic And Diastolic Provider Name and Address Organization Details Last Updated DateTime 5 167.64 cm 28.6 kg/m2 97827.8 5 g 98.5 [degF] 68 /min 97 % 97 % 0 154/84 mm[Hg] Lorraine Morris MA [facility] [employer] [facility] 14:50:37 Date Recorded Heart rate Respiratory rate Provider N kaleigh and Address Organization Details Last Updated DateTime 03/13/2025 61 /min 14 /min Loreta Haque MD [address] [place] [address], [address], [facility] [employer] [facility] 03/13/2025 15:08:35 Date Recorded Body height Body mass index (BMI) Body weight Body temperature Heart rate Oxygen saturation Oxygen saturation in Arterial blood by Pulse oximetry Systolic And Diastolic Provider Name and Address Organization Details Last Updated DateTime 5 167.64 cm 28.7 kg/m2 25478.4 4 g 98.9 [degF] 61 /min 96 % 96 % 126/84 mm[Hg] Lauryn Raines MA [facility] [employer] [facility] 5 14:56:32 Date Recorded Body height Body temperature Heart rate Oxygen saturation Oxygen saturation in Arterial blood by Pulse oximetry Pain severity - 0-10 verbal numeric rating [Score] - Reported Systolic And Diastolic Provider Name and Address Organization Details Last Updated DateTime 5 167.64 cm 98.2 [degF] 60 /min 97 % 97 % 0 104/60 mm[Hg] Lorraine Morris MA [facility] [employer] [facility] 14:35:14 Date Recorded Body height Body temperature Heart rate Oxygen saturation Oxygen saturation in Arterial blood by Pulse oximetry Pain severity - 0-10 verbal numeric rating [Score] - Reported Systolic And Diastolic Provider Name and Address Organization Details Last Updated DateTime 5 167.64 cm 98.7 [degF] 66 /min 92 % 92 % 0 110/64 mm[Hg] LAINE Sosa ID [employer] [facility] 5 11:51:32 Social History Question Answer Notes LastModified by Organization Details LastModified Time Tobacco Smoking Status Never Smoker Not Available [employer] 11/02/2022 09:26:39 Do You Have An Advance Directive? Yes [email or web address] Information not available 04/17/2024 Are You Blind Or Do You Have Difficulty Seeing? No [email or web address] Information not available 12/06/2023 Is Blood Transfusion Acceptable In An Emergency? Yes [email or web address] Information not available 01/16/2024 What Is Your Level Of Caffeine Consumption? Heavy 3 Coca Cola's Per Day [email or web address] Information not available 01/16/2024 In The 14 Days Before Symptom Onset, Have You Had Close Contact With A Laboratory-confi rmed COVID-19 While That Case Was Ill? No MIGRATION.030 [id number] Information not available 11/02/2022 In The 14 Days Before Symptom Onset, Have You Had Close Contact With A Person Who Is Under Investigation For COVID-19 While That Person Was Ill? No MIGRATION.030 [id number] Information not available 11/02/2022 Are You Deaf Or Do You Have Serious Difficulty Hearing? No Information not available 11/06/2023 What Type Of Diet Are You Following? REGULAR MIGRATION.030 [id number] Information not available 11/02/2022 What Is The Highest Grade Or Level Of School You Have Completed Or The Highest Degree You Have Received? [id number] MIGRATION.030 187629 Information not available 11/02/2022 Do You Have An Electrostatic Air Filter? No Information not available 01/01/2025 Have There Been Any Changes To Your Family Or Social Situation? Yes Lives With Roomate [email or web address] Information not available 01/16/2024 What Is The Fluoride Status Of Your Home? Unknown Information not available 11/06/2023 Are There Any Guns Present In Your Home? No MIGRATION.030 [id number] Information not available 11/02/2022 Do You Have A Humidifier? No Information not available 01/01/2025 Do You Use Insect Repellent Routinely? No MIGRATION.0301 [id number] Information not available 11/02/2022 Where Do You Live? SingleLevelHouse [email or web address] Information not available 12/06/2023 Are You Able To Care For Yourself? No Information not available 12/06/2023 Are You Blind Or Do Yo Have Difficulty Seeing? No [email or web address] Information not available 12/06/2023 Are You Deaf Or Do You Have Serious Difficulty Hearing? No [email or web address] Information not available 12/06/2023 Live Alone Of With Others? With Others [email or web address] Information not available 12/06/2023 Do You Have A Medical Power Of Emery Grinder? Yes Brother-Jone Moore [email or web address] Information not available 01/16/2024 Do You Have Moisture Problems In Your Home? No Information not available 01/01/2025 What Was The Date Of Your Most Recent Tobacco Screening? 05/07/2025 [email or web address] Information not available 05/07/2025 How Many Children Do You Have? 1 [email or web address] Information not available 01/16/2024 Do You Have Any Pets? Yes 2 Cats [email or web address] Information not available 01/16/2024 What Is Your Relationship Status? MIGRATION.0301 [id number] Information not available 11/02/2022 Do You Use Your Seat Belt Or Car Seat Routinely? Yes MIGRATION.0301 [id number] Information not available 11/02/2022 Are You Sexually Active? No [email or web address] Information not available 01/16/2024 Do You Have Smoke And Carbon Monoxide Detectors In Your Home? Yes MIGRATION.0301 [id number] Information not available 11/02/2022 Are You Passively Exposed To Smoke? Yes Information not available 11/06/2023 Are There Any Smokers In Your House? Yes Information not available 11/06/2023 Do You Participate In Social Media? No MIGRATION.0301 [id number] Information not available 11/02/2022 Do You Use Sunscreen Routinely? No MIGRATION.0301 [id number] Information not available 11/02/2022 Has Tobacco Cessation Counseling Been Provided? No N/a Information not available 11/06/2023 Have You Recently Traveled Abroad? No MIGRATION.0301 [id number] Information not available 11/02/2022 Do You Have Difficulty Walking Or Climbing Stairs? Yes Uses A Walker [email or web address] Information not available 01/16/2024 Are You Currently In School? No MIGRATION.0301 [id number] Information not available 11/02/2022 Do You Have Any Dietary Restrictions? No MIGRATION.0301 [id number] Information not available 11/02/2022 Sex: Unknown Functional Status Question Answer Note LastModified by Organizat ion Details LastModified Time Do you use any illicit or recreational drugs? No MIGRATION.22174 [id number] Information not available 11/02/2022 Do you or have you ever used any other forms of tobacco or nicotine? No MIGRATION.73075 [id number] Information not available 11/02/2022 What is your level of alcohol consumption? None MIGRATION.81508 [id number] Information not available 11/02/2022 Are you currently employed? No [email or web address] Information not available 01/16/2024 Have you been exposed to chemicals or toxins? not that aware of Information not available 01/01/2025 Do you have transportation difficulties? No [email or web address] Information not available 12/06/2023 Are you able to walk independently without assistance or assistive devices? YESASSIST wheeled walker Information not available 11/06/2023 Do you have difficulty doing errands alone? Yes [email or web address] Information not available 12/06/2023 Are you able to care for yourself independently? No has caregiver that comes 9 hours/week [email or web address] Information not available 01/16/2024 Do you have difficulty dressing, bathing, grooming, or toileting? No Information not available 11/06/2023 What is your exercise level? Occasional started doing exercises in chair 1 week ago & walks around house Information not available 01/16/2024 Mental Status Question Answer Note LastModified by Organizat ion Details LastModified Time Do you feel stressed (tense, restless, nervous, or anxious, or unable to sleep at night)? [id number] pt's s.o has chronic health problems and is reluctant to going to get care. This is making pt nervous. [email or web address] Information not available 02/26/2024 Do you have difficulty concentrating, remembering or making decisions? No Information not available 01/16/2024 Family History Relationship Description Onset Age of this Age Resolved Age Notes LastModified by Organization Details LastModified Time Mother Diabetes mellitus MIGRATION.611 [id number] Not available 11/02/2022 09:27:03 Mother Heart disease MIGRATION.403 [id number] Not available 11/02/2022 09:27:03 Father Hypertensive disorder MIGRATION.029 [id number] Not available 11/02/2022 09:27:03 Father Cerebrovascu lar [...] HAVE YOU BEEN HOSPITALIZED OR SEEN IN [facility] IN THE PAST YEAR ? Y Brain [...] Influenza, split virus, quadrivalent, preservative 8 completed [facility] 02/28/2023 16:18:39 Influenza, split virus, quadrivalent, preservative 9 completed [facility] 02/28/2023 16:18:39 zoster recombinant 8 [facility] 02/28/2023 16:18:39 Influenza, high-dose, quadrivalent, PF 0 completed [facility] 02/28/2023 16:18:39 Influenza, high-dose, quadrivalent, PF 2 completed [facility] 02/28/2023 16:18:39 Influenza, high-dose, quadrivalent, PF [address] [facility] 02/28/2023 16:18:39 COVID-19, mRNA, LNP-S, PF, 100 mcg/0.5mL dose or 50 mcg/0.25mL dose 1 [facility] 02/28/2023 16:18:39 COVID-19, mRNA, LNP-S, PF, 100 mcg/0.5mL dose or 50 mcg/0.25mL dose 1 completed [facility] 02/28/2023 16:18:39 COVID-19, mRNA, LNP-S, PF, 100 mcg/0.5mL dose or 50 mcg/0.25mL dose 2 completed [facility] 02/28/2023 16:18:39 COVID-19, mRNA, LNP-S, PF, 100 mcg/0.5mL dose or 50 mcg/0.25mL dose [address] [facility] 02/28/2023 16:18:39 COVID-19, mRNA, LNP-S, bivalent, PF, 30 mcg/0.3 mL dose 2 completed Jaclynher Huizar null, [facility] 02/28/2023 16:18:39 pneumococcal polysaccharide PPV23 6 completed [facility] 02/28/2023 16:18:39 Pneumococcal conjugate PCV 13 8 completed Jaclynher Hu[facility] 02/28/2023 16:18:39 Influenza, high-dose, trivalent, PF 6 completed [facility] 02/28/2023 16:18:39 Influenza, high-dose, trivalent, PF 9 completed [facility] 02/28/2023 16:18:39 Influenza, high-dose, trivalent, PF 7 completed [facility] 02/28/2023 16:18:39 Influenza, split virus, trivalent, preservative 4 completed [facility] 02/28/2023 16:18:39 Influenza, split virus, trivalent, PF 5 completed [facility] 02/28/2023 16:18:39 Influenza, high-dose, quadrivalent, PF 3 completed Susana Kimbrough RMA null, [facility] 09/16/2024 14:07:35 COVID-19, mRNA, LNP-S, PF, 50 mcg/0.5 mL 4 completed [facility] 14:07:35 COVID-19, mRNA, LNP-S, PF, 50 mcg/0.5 mL 3 completed [facility] 09/16/2024 14:07:35 Influenza, high-dose, trivalent, PF 4 completed Susana Kimbrough, RMA [place], [place] [facility] 09/16/2024 14:07:35 Past Encounters Encounter ID Performer Location Encounter Start Date Encounter Closed Date Diagnosis/Indication Diagnosis SNOMED-CT Code Diagnosis ICD10 Code Diagnosis IMO Codes Diagnosis Note [id number] Lana Tovar MD [facility] Primary [facility] [place] [address] [place] [address] 01/11/2021 00:00:00 01/20/2021 09:33:59 [id number] Lana Tovar MD [facility] Primary [facility] [place] [address] [place] [address] 01/26/2021 00:00:00 01/26/2021 10:59:18 [id number] Lana Tovar MD [facility] Primary [facility] [place] [address] [place] [address] 02/10/2021 00:00:00 03/03/2021 09:55:56 [id number] Lana Tovar MD [facility] Primary [facility] [place] [address] [place] [address] 02/17/2021 00:00:00 02/17/2021 13:19:19 [id number] Lana Tovar MD [facility] Primary [facility] [place] [address] [place] [address] 02/24/2021 00:00:00 03/02/2021 13:52:08 [id number] Lana Tovar MD [facility] Primary [facility] [place] [address] [place] [address] 04/20/2021 00:00:00 05/03/2021 19:35:15 [id number] Lana Tovar MD [facility] Primary [facility] [place] [address] [place] [address] 05/06/2021 00:00:00 05/06/2021 21:08:51 [id number] Lana Tovar MD [facility] Primary [facility] [place] [address] [place] [address] 06/09/2021 00:00:00 06/09/2021 10:51:15 [id number] Lana Tovar MD [facility] Primary [facility] [place] [address] [place] [address] 09/29/2021 00:00:00 09/29/2021 13:17:41 [id number] Lana Tovar MD [facility] Primary [facility] [place] [address] [place] [address] 01/05/2022 00:00:00 01/28/2022 13:08:49 [id number] Lana Tovar MD [facility] Primary [facility] [place] [address] [place] [address] 01/19/2022 00:00:00 02/01/2022 08:13:46 [id number] Lana Tovar MD [facility] Primary [facility] [place] [address] [place] [address] 02/02/2022 00:00:00 03/01/2022 14:05:51 [id number] [facility] [place] [address] [place] [address] 02/14/2022 00:00:00 02/15/2022 11:15:58 [id number] Lana Tovar MD [facility] Primary [facility] [place] [address] [place] [address] 03/15/2022 00:00:00 04/01/2022 13:22:41 [id number] Lana Tovar MD [facility] Primary [facility] [place] [address] [place] [address] 04/25/2022 00:00:00 04/25/2022 09:40:17 [id number] MIKE Linder [facility] [place] [address] [place] [address] 05/30/2022 00:00:00 05/30/2022 12:27:10 [id number] Lana Tovar MD [address] [place] [address] 08/10/2022 00:00:00 09/01/2022 11:27:36 [id number] MIKE Linder [address] [place] [address] 11/18/2022 10:40:48 11/18/2022 11:55:25 Cough 42793588 R05.9 Pt. very congested with a wheezing cough. Covid negative.A dvised to take medication s as directed. Can continue otc medication s as needed.If no improvemen t over next 1-2 weeks will evaluate with CXR. [id number] MIKE Linder [address] [place] [address] 12/28/2022 11:41:11 12/28/2022 12:36:50 Long-term current use of anticoagulant 084653724 Z79.01 Currently on Warfarin 3mg daily. Bilateral cramp of muscle of lower limbs [id number] 4389291 R25.2 She states she has had symptoms for the last 1-2 weeks. No swelling/r edness. No pain during visit.Most likely benign muscle cramps.Esa l check labs today. Hypothyroidism 33243743 E03.9 Vitamin D deficiency 347 13454 E55.9 Renal mass 361450981 N28 .89 MRI scheduled for February. Cobalamin deficiency 190 891524 E53.8 [id number] Lana Tovar MD [facility] [address] [place] [address] 02/20/2023 15:13:05 02/20/2023 15:49:01 Essential hypertension 82046899 I10 Long-term current use of anticoagulant 750530476 Z79.01 Vitamin D deficiency 347 22520 E55.9 Hypothyroidism 38623237 E03.9 Cobalamin deficiency 190 219970 E53.8 [id number] Lana Tovar MD [facility] Primary [place] [address] [facility] [address] [place] [address] 02/23/2023 15:44:37 02/23/2023 16:52:15 Long-term current use of anticoagulant 017906425 Z79.01 [id number] Lana Tovar MD [facility] Primary [place] [address] [facility] [address] [place] [address] 03/28/2023 15:59:26 03/28/2023 16:16:31 [id number] Tom James, [employer] [facility] [address] [facility] [address] [facility] [place] [place] [address] 04/10/2023 16:00:52 04/10/2023 17:07:19 Dizziness 035078115 R42 Has been an issue as long as she has been taking the carvedilol (not as prescribed )Will give trial meclizine Malaise and fatigue 2717 74352 R53.81 Pt was taking carvedilol 25mg BID when she was supposed to be taking 12.5mg BIDNotes no swelling in her ankles-BP seems to be stable currentlyW ill hold off on starting lasix at this time.Educa misti to take 1/2 tab of carvedilol in the morning and 1/2 tab in the evening [id number] Roque holden MD [facility] Internal Med [place] [address] [facility] [place] [address] 11/06/2023 11:49:23 11/06/2023 12:47:14 Screening - NAD 812457116 Z13.9 C-scope: Get this if not done, [...] understand ing of the above Essential hypertension 65391341 I10 On coreg 12.5mg bidOn entresto 49-51mg bidOn spironolac tone 25mg daily Hypothyroidism 79666008 E03.9 On levothyrox ine 150mcgs dailyGet labs Persistent insomnia 1919 98312 G47.09 On traz[address]G iven [address] Dr Jose Luis Bae r ecurrent major depression 46773700 F33.1 On clonazepam 0.5mg tidOn venlafaxin e ER 37.5mg dailyOn vralar 1.5m daily Nonischemi c congestive cardiomyopathy 3240251457 [address] Ceja cardiology [...] one week for INr Screening mammography 24 953660 Z12.31 Screening for osteoporosis 938744476 Z13.820 Gynecologi c examination 74418814 Z01.419 Serum betty min B12 below reference range 060509735 R79.89 On b12, get labs [id number] Roque holden MD [facility] [place] [address] [facility] [place] [address] 12/06/2023 13:58:41 12/06/2023 14:47:31 Adult health examination 685220142 Z00.00 Screening for disorder 554790361 Z13.9 Anticoagulant therapy 18 0982024 Z79.01 Screening - NAD 00137729 3 Z13.9 C-scope: Get this if not [...] understand ing of the above Essential hypertension 51632913 I10 On amiodarone 200mg dailyOn coreg 12.5mg bidOn entresto 49-51mg bidOn spironolac tone 25mg daily Hypothyroidism 56669037 E03.9 On levothyrox ine 150mcgs dailyGet labs Persistent insomnia 1919 78905 G47.09 On trazodoneG iven by Dr Amaya Moderate r ecurrent major depression 42415094 F33.1 On clonazepam 0.5mg tidOn venlafaxin e ER 37.5mg dailyOn vralar 1.5m daily Nonischemi c congestive cardiomyopathy 0941671871 [address] Ceja cardiology [...] one week for INr Screening mammography 24 583735 Z12.31 Screening for osteoporosis 429056071 Z13.820 Gynecologi c examination 67622190 Z01.419 Serum betty min B12 below reference range 844612463 R79.89 On b12, get labs Abdominal pain 12936465 R10.[address] abd donePrior hx of surgery to the abdomen, she is not very sure why she had to have surgeryMay need to see GI [id number] Roque holden MD [facility] Internal [facility] [place] [address] [facility] [place] [address] 12/13/2023 14:10:26 12/13/2023 15:22:58 Screening - NAD 133804770 Z13.9 C-scope: Get this if not done, [...] understand ing of the above Essential hypertension 15554008 I10 On amiodarone 200mg dailyOn coreg 12.5mg bidOn entresto 49-51mg bid, renewed 12/13/2023 On spironolac tone 25mg daily Hypothyroidism 38083811 E03.9 On levothyrox ine 150mcgs dailyGet labs Persistent insomnia 1919 97629 G47.09 On trazodoneG iven by Dr Amaya Moderate r ecurrent major depression 58622431 F33.1 On clonazepam 0.5mg tidOn venlafaxin e ER 37.5mg dailyOn vralar 1.5m daily Nonischemi c congestive cardiomyopathy 1218975836 [address] Ceja cardiology [...] tone 25mg dailyOn coumadin Gynecologi c examination 26894690 Z01.419 Serum betty min B12 below reference range 777070819 R79.89 On b12, get labs Abdominal pain 54606430 R10.[address] abd donePrior hx of surgery to the abdomen, she is not very sure why she had to have surgeryMay need to see GI CT A/P: 12/13/2023 : Hiatal hernia, needs to see GI Hiatal hernia 24302002 K 44.9 CT A/P: 12/13/2023 : Hiatal hernia, needs to see GI Dizziness 797604250 R42 [place] [facility] Chest 12/08/2023 S/p CTA 12/08/2023 Lung nodules noted Multiple n odules of lung 367972055 R91.8 [facility] [place] [facility] pulmonary Mass of neck 355695126 R 22.1 Fullness noted in the yordy supraclavi cular areaS/P CTA done 12/08/2023 Get US neck and she now will see Dr Gannon her cardiologi st [id number] Roque holden MD [facility] Internal [facility] [place] [address] [facility] [place] [address] 01/08/2024 11:22:08 01/08/2024 12:06:29 Screening - NAD 803250201 Z13.9 C-scope: Get this if not done, [...] understand ing of the above Essential hypertension 90065607 I10 On amiodarone 200mg dailyOn coreg 12.5mg bid, advised to not take the 25mg 1/2 tab bid dose 01/08/2024 On entresto 49-51mg bid, renewed 12/13/2023 On spironolac tone 25mg daily Hypothyroidism 40524509 E03.9 On levothyrox ine 150mcgs dailyGet labs Persistent insomnia 1919 42454 G47.09 On trazodoneG iven by Dr Amaya Moderate r ecurrent major depression 62294508 F33.1 On clonazepam 0.5mg tidOn venlafaxin e ER 37.5mg dailyOn vralar 1.5m dailySees Dr Amaya, not suicidal or homicidal Nonischemi c congestive cardiomyopathy 3638654859 [address] Ceja cardiology [...] spironolac tone 25mg dailyOn coumadin D/c from [facility] 01/03/2024 for SOB, acute respirator y [...] with her CG Claudette Gynecologi c examination 56285885 Z01.419 Serum betty min B12 below reference range 541538229 R79.89 On b12, get labs Abdominal pain 43237239 R10.[address] abd donePrior hx of surgery to the abdomen, she is not very sure why she had to have surgeryMay need to see GI CT A/P: 12/13/2023 : Hiatal hernia, needs to see Timothy Fairchild GI: To get EGD, take PPI an dfamotidin e, take OTC [id number] mg PRN for bloating, may need a course of xifaxan Hiatal hernia 17475028 K 44.9 CT A/P: 12/13/2023 : Hiatal hernia, needs to see GIToday 01/08/2024 , states that she is to get the EGD this Monday Dizziness [id number] R42 [place] ERXR Chest 12/08/2023 S/p CTA 12/08/2023 Lung nodules noted Multiple n odules of lung 601068277 R91.8 CT[facility] [place] [facility] and see pulmonary Mass of neck 285086685 R 22.1 Fullness noted in the yordy supraclavi cular areaS/P CTA done 12/08/2023 Get US neck and she now will see Dr Gannon her cardiologi st [id number] Roque holden MD [facility] Internal Med Alber[place] e [address] [place] [address] [place] [address] 01/16/2024 17:11:21 05/09/2024 11:39:35 Nonischemic congestive cardiomyopathy 3006431144 04 I42.0 Moderate r ecurrent major depression 30305019 F33.1 Osteoarthr itis of knee 139625500 M17.9 [id number] Roque holden MD [facility] Internal Med [address] [place] [address] 02/26/2024 13:42:40 05/22/2024 11:15:01 Nonischemic congestive cardiomyopathy 7024330229 04 I42.0 Essential hypertension 91586231 I10 [id number] Loreta Haque MD [facility] Pulmonolo gy [address], [address] [address] 03/20/2024 15:22:21 03/21/2024 08:27:20 Dyspnea on exertion 95013946 R06.09 R05.9 T78.40XA D89.9 Multiple n odules of lung 132930615 R91.8 [id number] Roque holden MD [facility] Internal Med [address] [place] [address] 04/17/2024 18:28:30 06/03/2024 19:29:01 Dyspnea on exertion 05543780 R06.09 R05.9 T78.40XA D89.9 Moderate r ecurrent major depression 41351010 F33.1 Essential hypertension 19849212 I10 [id number] Roque holden MD [facility] Internal Med Yanni golden [address] [facility] , [place] [address] 06/12/2024 14:13:38 06/12/2024 15:19:26 Screening - NAD 058574950 Z13.9 C-scope: Get this if not done, [...] understand ing of the above Essential hypertension 80444086 I10 On amiodarone 200mg dailyOn coreg 25mg bid, advised to not take the 25mg 1/2 tab bid dose 01/08/2024 On entresto 49-51mg bid, now should be on 24/[address] Ceja 06/07/2024 On spironolac tone 25mg daily Hypothyroidism 04743615 E03.9 On levothyrox ine 150mcgs daily,misael wedGet labs Persistent insomnia 1919 22885 G47.09 On trazodoneG iven by Dr Amaya Moderate r ecurrent major depression 45364885 F33.1 On clonazepam 0.5mg tidOn venlafaxin e ER 37.5mg dailyOn vraylar 1.5m dailySees Dr Amaya, not suicidal or homicidal Nonischemi c congestive cardiomyopathy 5689198491 [address] Ceja cardiology [...] spironolac tone 25mg dailyOn coumadin D/c from [facility] 01/03/2024 for SOB, acute respirator y [...] f/u in 3 months Gynecologi c examination 73504254 Z01.419 Serum betty min B12 below reference range 568005221 R79.89 On b12, get labs Abdominal pain 80352854 R10.[address] abd donePrior hx of surgery to the abdomen, she is not very sure why she had to have surgeryMay need to see GI CT A/P: 12/13/2023 : Hiatal hernia, needs to see Timothy Fairchild GI: To get EGD, take PPI an dfamotidin e, take OTC ajzxyym083 mg PRN for bloating, may need a course of xifaxan EGD 01/10/2024 : Dr Fairchild Hiatal hernia 31075945 K 44.9 CT A/P: 12/13/2023 : Hiatal hernia, needs to see GI S/p EGD 01/10/2024 Dizziness 220575691 R42 [place] ERXR Chest 12/08/2023 S/p CTA 12/08/2023 Lung nodules noted Multiple n odules of lung 425218789 R91.8 CT[facility] 12[facility] 04/[facility] : Law Haque 03/20/2024 Mass of neck 054017878 R 22.1 Fullness noted in the yordy supraclavi cular areaS/P CTA done 12/08/2023 Get US neck and she now will see Dr Gannon her cardiologi st US neck 04/22/2024 : Benign Dental caries 35430390 K 02.9 Dental caries noted on the upper teethDo not take the fosamax 2 weeks prior to dental procedures !Get on augmentin as per requestRef er to dental surgeon as per her requestWil l have to discuss with her cardiologi st regarding use of coumadin [id number] Roque holden MD [facility] [address] [place] [address] 09/16/2024 13:57:07 09/16/2024 14:42:29 Screening - NAD 770817002 Z13.9 C-scope: Get this if not done, [...] do labs, ER if worse, she and Randlexx did verbalize her understand ing of the above Essential hypertension 73726795 I10 On amiodarone 200mg dailyOn coreg 25mg bid 1/[address] Elana porras entresto 49-51mg bid, now should be on 24/ bid as per Dr Ceja 06/07/2024 On spironolac tone 25mg dailyOn K Hypothyroidism 50265746 E03.9 On levothyrox ine 150mcgs daily,misael wedGet labs Persistent insomnia 1919 29506 G47.09 On trazodone 150mg 1.[address] Amaya Moderate r ecurrent major depression 79203429 F33.1 On clonazepam 0.5mg tidOn venlafaxin e ER 37.5mg dailyOn vraylar 1.5m dailySees Dr Amaya, not suicidal or homicidal Nonischemi c congestive cardiomyopathy 7099269583 [address] Ceja cardiology [...] spironolac tone 25mg dailyOn coumadin D/c from [facility] 01/03/2024 for SOB, acute respirator y [...] with her cardiologi st Gynecologi c examination 01059247 Z01.419 Serum betty min B12 below reference range 899549805 R79.89 On b12, get labs Abdominal pain 80326960 R10.[address] abd donePrior hx of surgery to the abdomen, she is not very sure why she had to have surgeryMay need to see GI CT A/P: 12/13/2023 : Hiatal hernia, needs to see Timothy Fairchild GI: To get EGD, take PPI an dfamotidin e, take OTC [id number] mg PRN for bloating, may need a course of xifaxan EGD 01/10/2024 : Dr Fairchild Hiatal hernia 23506838 K 44.9 CT A/P: 12/13/2023 : Hiatal hernia, needs to see GI S/p EGD 01/10/2024 Dizziness 023239418 R42 [place] ERXR Chest 12/08/2023 S/p CTA 12/08/2023 Lung nodules noted Multiple n odules of lung 627583454 R91.8 CTA 12[place]08[facility]2023 [facility] [place] 04/22/2024 : Law Haque 03/20/2024 Mass of neck 600530494 R 22.1 Fullness noted in the yordy supraclavi cular areaS/P CTA done 12/08/2023 Get US neck and she now will see Dr Gannon her cardiologi st US neck 04/22/2024 : Benign Dental caries 85190899 K 02.9 Dental caries noted on the [...] well Pain of ri ght hip joint 6134972207 81302 M25.551 S/p fallSeen in the UC, treated with gabapentin and flexerill, not taking at this timeGet on MDP, get Xrays and refer to Dr Prince as she does not want to be treated in [facility] Tear of skin 522004561 T 14.8XXA L forearmHea ling, no bleeding noted, no swelling or redness, advised to keep area clean and dry [id number] Roque holden MD [facility] Primary Care Kelsey golden [address] [facility] [address] [facility] [place] [address] 10/14/2024 14:46:11 10/14/2024 16:10:33 Screening - NAD 345527866 Z13.9 C-scope: Get this if not done, [...] understand ing of the above Essential hypertension 45041826 I10 On amiodarone 200mg dailyOn coreg 25mg daily Dr Huitron n entresto 49-51mg bid, now should be on bid as per Dr Ceja 06/07/2024 On spironolac tone 25mg dailyOn KSees Dr Gannon Hypothyroidism 85703212 E03.9 On levothyrox ine 150mcgs daily,misael wedGet labs Persistent insomnia 1919 72828 G47.09 On trazodone 150mg 1.[address] Amaya Moderate r ecurrent major depression 09560491 F33.1 On clonazepam 0.5mg tidOn venlafaxin e ER 37.5mg dailyOn vraylar 1.5m dailySees Dr Amaya, not suicidal or homicidal Nonischemi c congestive cardiomyopathy 9824675057 [address] Ceja cardiology [...] spironolac tone 25mg dailyOn coumadin D/c from [facility] 01/03/2024 for SOB, acute respirator y [...] f/u in 6 months Gynecologi c examination 55109511 Z01.419 Serum betty min B12 below reference range 984789517 R79.89 On b12, get labs Abdominal pain 89892656 R10.[address] abd donePrior hx of [...] EGD 01/10/2024 : Dr Fairchild Hiatal hernia 38585634 K 44.9 CT A/P: 12/13/2023 : Hiatal hernia, needs to see GI S/p EGD 01/10/2024 Dizziness 865889933 R42 [place] ERXR Chest 12/08/2023 S/p CTA 12/08/2023 Lung nodules noted Multiple n odules of lung 638352895 R91.8 CTA 12/08[facility]2023 [facility] [place] [facility] 04/22/2024 : Law Haque 03/20/2024 Mass of neck 638706399 R 22.1 Fullness noted in the yordy supraclavi cular areaS/P CTA done 12/08/2023 Get US neck and she now will see Dr Gannon her cardiologi st US neck 04/22/2024 : Benign Dental caries 39031316 K 02.9 Dental caries noted on the [...] well Pain of ri ght hip joint 4611031620 22165 M25.551 S/p fallSeen in the UC, treated with gabapentin and flexerill, not taking at this timeGet on MDP, get Xrays and refer to Dr Prince as she does not want to be treated in [facility] OV 10/14/2024 :Xr hip: 09/16/2024 : Neg Tear of skin 492830424 T 14.8XXA L forearmHea ling, no bleeding noted, no swelling or redness, advised to keep area clean and dry Chronic ki dney disease 790130330 N18.9 Get a referral to nephrology Hyperkalemia 69495130 E8 7.5 Repeat the K [id number] Roque holden MD [facility] Primary Care [address] [place] [address] 11/18/2024 10:13:18 11/18/2024 12:24:26 Screening - NAD 129907447 Z13.9 C-scope: Get this if not done, [...] understand ing of the above Essential hypertension 54672293 I10 On amiodarone 200mg daily, understand s the side effects for this medication , including thyroid abnormalit iesOn coreg 25mg daily Dr Elana porras entresto 49-51mg bid, now should be on 24/[address] Ceja 06/07/2024 On spironolac tone 25mg dailyOn KSees Dr Gannon Hypothyroidism 41732049 E03.9 On levothyrox ine 150mcgs daily,misael wedGet labs Persistent insomnia 1919 28511 G47.09 On trazodone 150mg 1.[address] Amaya Moderate r ecurrent major depression 11148896 F33.1 On clonazepam 0.5mg tidOn venlafaxin e ER 37.5mg dailyOn vraylar 1.5m dailySees Dr Amaya, not suicidal or homicidal Nonischemi c congestive cardiomyopathy 7395948410 [address] Ceja cardiology [...] spironolac tone 25mg dailyOn coumadin D/c from [facility] 01/03/2024 for SOB, acute respirator y [...] INR, since the INR machine not in [facility] office she will come in tomorrow to [facility] in [place] Gynecologi c examination 02084658 Z01.419 Serum betty min B12 below reference range 460030295 R79.89 On b12, get labs Abdominal pain 14205183 R10.[address] abd donePrior hx of surgery to the abdomen, she is not very sure why she had to have surgeryMay need to see GI CT A/P: 12/13/2023 : Hiatal hernia, needs to see Timothy Fairchild GI: To get EGD, take PPI an dfamotidin e, take OTC [id number] mg PRN for bloating, may need a course of xifaxan EGD 01/10/2024 : Dr Fairchild Hiatal hernia 61205457 K 44.9 CT A/P: 12/13/2023 : Hiatal hernia, needs to see GI S/p EGD 01/10/2024 Dizziness 411000287 R42 [place] ERXR Chest 12/08/2023 S/p CTA 12/08/2023 Lung nodules noted Multiple n odules of lung 434774040 R91.8 CTA 12/08[facility]2023 [facility] 04/22/2024 : NegDr Haque 03/20/2024 Mass of neck 875982790 R 22.1 Fullness noted in the yordy supraclavi cular areaS/P CTA done 12/08/2023 Get US neck and she now will see Dr Gannon her cardiologi st US neck 04/22/2024 : Benign Dental caries 88117574 K 02.9 Dental caries noted on the [...] well Pain of ri ght hip joint 4820517794 99865 M25.551 S/p fallSeen in the UC, treated with gabapentin and flexerill, not taking at this timeGet on MDP, get Xrays and refer to Dr Prince as she does not want to be treated in [facility] OV 10/14/2024 :Xr hip: 09/16/2024 : Neg Tear of skin 433338081 T 14.8XXA L forearmHea ling, no bleeding noted, no swelling or redness, advised to keep area clean and dry Chronic ki dney disease 671157152 N18.9 Get a referral to nephrology Hyperkalemia 72497090 E8 7.5 Repeat the CMP Nausea 686868357 R11.0 Is on chronic use of zofran, [...] today 11/18/2024 Acute urin sherrill tract infection 848216964 N39.0 Unable to provide any urine for UAStart on amoxicilli n 500mg po tidNotify if not better Atrial fibrillation 4943 6004 I48.91 [id number] Loreta Haque MD [facility] Pulmonolo gy [place] [address] [facility] [address] [place] [address] 01/01/2025 14:42:18 01/03/2025 12:15:30 Dyspnea on exertion 97401447 R06.09 R05.9 T78.40XA D89.9 Mild chron ic obstructive pulmonary disease 352104643 J44.9 [id number] Roque holden MD [facility] [address] [facility] [address] [place] [address] 01/13/2025 14:26:53 01/13/2025 16:02:13 Screening - NAD 783710260 Z13.9 C-scope: Get this if not done, [...] her cardiology , told to come to [facility] for her INR Essential hypertension 77679994 I10 On amiodarone 200mg daily, understand s the side effects for this medication , including thyroid abnormalit iesOn coreg 25mg daily Dr Huitron n entresto bid as per Dr Ceja 06/07/2024 On lasixOn spironolac tone 25mg dailyOn KSees Dr Gannon as per her history 01/13/2025 , she does have an apt in 02/2025 Hypothyroidism 36464082 E03.9 On levothyrox ine 150mcgs daily,misael wedGet labs Persistent insomnia 1919 29748 G47.09 On trazodone 150mg 1.[address] Amaya Moderate r ecurrent major depression 24522144 F33.1 On clonazepam 0.5mg tidOn venlafaxin e ER 37.5mg dailyOn vraylar 1.5m dailySees Dr Amaya, not suicidal or homicidal Nonischemi c congestive cardiomyopathy 1822301182 [address] Ceja cardiology [...] spironolac tone 25mg dailyOn coumadin D/c from [facility] 01/03/2024 for SOB, acute respirator y [...] INR, since the INR machine not in [facility] office she will come in tomorrow to [facility] in [place] OV 01/13/2025 : Get INR as scheduled, will come to [facility] on 01/15/2025 Gynecologi c examination 07736635 Z01.419 Serum betty min B12 below reference range 438150365 R79.89 On b12, get labs Abdominal pain 24371420 R10.[address] abd donePrior hx of surgery to the abdomen, she is not very sure why she had to have surgeryMay need to see GI CT A/P: 12/13/2023 : Hiatal hernia, needs to see Timothy Fairchild GI: To get EGD, take PPI an dfamotidin e, take OTC vowacmp042 mg PRN for bloating, may need a course of xifaxan EGD 01/10/2024 : Dr Fairchild Hiatal hernia 45087810 K 44.9 CT A/P: 12/13/2023 : Hiatal hernia, needs to see GI S/p EGD 01/10/2024 Dizziness 520218916 R42 [place] ERXR Chest 12/08/2023 S/p CTA 12/08/2023 Lung nodules noted Multiple n odules of lung 941036726 R91.8 CTA 12[facility]08[facility]2023 [facility] 04/22/[facility]24 : Law Haque 03/20/2024 Dr Haque 01/22/2025 next apt On albuterolS ee Dr Haque Mass of neck 086892516 R 22.1 Fullness noted in the yordy supraclavi cular areaS/P CTA done 12/08/2023 Get US neck and she now will see Dr Gannon her cardiologi st US neck 04/22/2024 : Benign Dental caries 60803322 K 02.9 Dental caries noted on the [...] well Pain of ri ght hip joint 4177207928 51137 M25.551 S/p fallSeen in the UC, treated with gabapentin and flexerill, not taking at this timeGet on MDP, get Xrays and refer to Dr Prince as she does not want to be treated in [facility] OV 10/14/2024 :Xr hip: 09/16/2024 : Neg Tear of skin 600150283 T 14.8XXA L forearmHea ling, no bleeding noted, no swelling or redness, advised to keep area clean and dry Chronic ki dney disease 349014874 N18.[address] Dela Cruz has given her the zofran Hyperkalemia 65484900 E8 7.5 Repeat the CMP Nausea 016192617 R11.0 Is on chronic use of zofran, [...] wanting to see GI Screening mammography 24 848703 Z12.31 [id number] [facility] 916207166 R21 00439 Red itchy rash in the groinNot examined, will start on trim-nysta tin crean [id number] Loreta Haque MD [facility] Pulmonolo gy [address] [place] [address] 03/13/2025 14:23:19 03/13/2025 16:02:09 Mild chronic obstructive pulmonary disease 130059820 J44.9 [id number] Roque holden MD [facility] [address] [facility] [address] [place] [address] 04/21/2025 14:25:03 04/21/2025 15:19:23 Screening - NAD 984041229 Z13.9 C-scope: Get this if not done, [...] understand ing of the above Essential hypertension 25064294 I10 On amiodarone 200mg daily, understand s the side effects for this medication , including thyroid abnormalit iesOn coreg 25mg daily Dr Elana porras entresto 24/[address] Ceja 06/07/2024 , not taking thisOn losartan 50mg daily as per Dr Elana porras lasixOn spironolac tone 25mg dailyOn K Sees Dr Gannon Hypothyroidism 92317695 E03.9 On Unithroid 150mcgs daily,misael wedGet labs Persistent insomnia 1919 41111 G47.09 On trazodone 150mg 1.[address] Amaya Moderate r ecurrent major depression 22797824 F33.1 On clonazepam 0.5mg tidOn venlafaxin e ER 37.5mg dailyOn vraylar 1.5m dailySees Dr Amaya, not suicidal or homicidal Nonischemi c congestive cardiomyopathy 6722876019 [address] Ceja cardiology [...] spironolac tone 25mg dailyOn coumadin D/c from [facility] 01/03/2024 for SOB, acute respirator y [...] INR, [facility] she will come in tomorrow to [facility] in [place] OV 01/13/2025 : Get INR as scheduled, will come to [facility] on 01/15/2025 OV 04/21/2025 :[facility] d/c 03/31/2025 , treated for CHF as was not taking her medication s as per d/c summary, also treated for pneumoniaN ow has dizziness, will now refer to ER and call placed to ER and case d/w the ER Gynecologi c examination 12558704 Z01.419 Serum betty min B12 below reference range 575665287 R79.89 On b12, get labs Abdominal pain 59288544 R10.[address] abd donePrior hx of surgery to the abdomen, she is not very sure why she had to have surgeryMay need to see GI CT A/P: 12/13/2023 : Hiatal hernia, needs to see Timothy Fairchild GI: To get EGD, take PPI an dfamotidin e, take OTC yqtnsac936 mg PRN for bloating, may need a course of xifaxan EGD 01/10/2024 : Dr Fairchild Hiatal hernia 46193782 K 44.9 CT A/P: 12/13/2023 : Hiatal hernia, needs to see GI S/p EGD 01/10/2024 Dizziness 484221090 R42 [place] ERXR Chest 12/08/2023 S/p CTA 12/08/2023 Lung nodules noted Multiple n odules of lung 765715262 R91.8 CTA 12[place]08[facility]2023 [facility] 04/22/[facility]24 : Law Haque 03/20/2024 Dr Haque 01/22/2025 next apt On albuterolS ee Dr Haque Mass of neck 211972177 R 22.1 Fullness noted in the yordy supraclavi cular areaS/P CTA done 12/08/2023 Get US neck and she now will see Dr Fliessner her cardiologi st US neck 04/22/2024 : Benign Dental caries 54849508 K 02.9 Dental caries noted on the upper teethDo not take the fosamax 2 weeks prior to dental procedures !Get on augmentin as per requestRef er to dental surgeon as per her requestEsa jayashree have to discuss with her cardiologi st regarding use of coumadin OV 09/16/2024 : Now states that she has 'pulled out all' the teeth, does well Pain of ri ght hip joint 1066952344 89713 M25.551 S/p fallSeen in the UC, treated with gabapentin and flexerill, not taking at this timeGet on MDP, get Xrays and refer to Dr Prince as she does not want to be treated in [facility] OV 10/14/2024 :Xr hip: 09/16/2024 : Neg Tear of skin 274927357 T 14.8XXA L forearmHea ling, no bleeding noted, no swelling or redness, advised to keep area clean and dry Chronic ki dney disease 535249234 N18.[address] Dela Cruz has given her the zofran Hyperkalemia 82558417 E8 7.5 Repeat the CMP Nausea 215373546 R11.0 Is on chronic use of zofran, [...] wanting to see GI Screening mammography 24 908684 Z12.31 73791305 Eruption 398666481 R21 83547 Red itchy rash in the groinNot examined, will start on trim-nysta tin crean [id number] Roque holden MD [facility] Primary [facility] Kelsey golden [address] [facility] [address] [place] [address] 05/07/2025 11:39:42 05/07/2025 13:00:48 Screening - NAD 849357556 Z13.9 C-scope: Get this if not done, [...] understand ing of the above Essential hypertension 83461223 I10 On amiodarone 200mg daily, understand s the side effects for this medication , including thyroid abnormalit iesOn coreg 25mg daily Dr Huitron n entresto bid as per Dr Ceja 06/07/2024 , not taking thisOn losartan 50mg daily as per Dr Ceja, [facility] tOn lascheoOn spironolac tone 25mg dailyOn K Sees Dr Gannon Hypothyroidism 52083086 E03.9 On Unithroid 150mcgs daily,misael wedGet labs Persistent insomnia 1919 51454 G47.09 On trazodone 150mg 1.[address] Amaya Moderate r ecurrent major depression 53305679 F33.1 On clonazepam 0.5mg tidOn venlafaxin e ER 37.5mg dailyOn vraylar 1.5m dailySees Dr Amaya, not suicidal or homicidal Nonischemi c congestive cardiomyopathy 0929200843 [address] Ceja cardiology [...] spironolac tone 25mg dailyOn coumadin D/c from [facility] 01/03/2024 for SOB, acute respirator y [...] INR, since the INR machine not in [facility] office she will come in tomorrow to [facility] in [place] OV 01/13/2025 : Get INR as scheduled, will come to [facility] on 01/15/2025 OV 04/21/2025 :[facility] d/c 03/31/2025 , treated for CHF as was not taking her medication s as per d/c summary, also treated for pneumoniaN ow has dizziness, will now refer to ER and call placed to ER and case d/w the ER OV 05/07/2025 :Still has dizziness, needs to see cardiology ! referred again as she was to have a monitorGet HH also as per recommenda tion from hospitalIN R also ordered Gynecologi c examination 34892299 Z01.419 Serum betty min B12 below reference range 388931844 R79.89 On b12, get labs Abdominal pain 43504156 R10.[address] abd donePrior hx of surgery to the abdomen, she is not very sure why she had to have surgeryMay need to see GI CT A/P: 12/13/2023 : Hiatal hernia, needs to see Timothy Fairchild GI: To get EGD, take PPI an dfamotidin e, take OTC anzzfla766 mg PRN for bloating, may need a course of xifaxan EGD 01/10/2024 : Dr Fairchild Hiatal hernia 58582668 K 44.9 CT A/P: 12/13/2023 : Hiatal hernia, needs to see GI S/p EGD 01/10/2024 Dizziness 298883027 R42 [place] ERXR Chest 12/08/2023 S/p CTA 12/08/2023 Lung nodules noted Multiple n odules of lung 027116399 R91.8 CT[place] 12[facility]08[facility]2023 [facility] 04/[facility] : NegDr Shabnam 03/20/2024 Dr Haque 01/22/2025 next aptDr Shabnam 03/13/2025 , next 03/12/[address] Haque Mass of neck 100213413 R 22.1 Fullness noted in the yordy supraclavi cular areaS/P CTA done 12/08/2023 Get US neck and she now will see Dr Gannon her cardiologi st US neck 04/22/2024 : Benign Dental caries [id number] K 02.9 Dental caries noted on the [...] well Pain of ri ght hip joint [id number] M25.551 S/p fallSeen in the UC, treated with gabapentin and flexerill, not taking at this timeGet on MDP, get Xrays and refer to Dr Prince as she does not want to be treated in [facility] OV 10/14/2024 :Xr hip: 09/16/2024 : Neg Tear of skin [id number] T 14.8XXA L forearmHea ling, no bleeding noted, no swelling or redness, advised to keep area clean and dry Chronic ki dney disease [id number] N18.[address] Dela Cruz has given her the zofran Hyperkalemia [id number] E8 7.5 Repeat the CMP Nausea [id number] R11.0 Is on chronic use of zofran, advised that there are severe side effects of such daily uses of this medication , including but not limited to [facility] complaints Explained to her and her son Pippa that she should also discuss with her psychiatri st if the medication s for her psychiatry conditions can cause nausea for eg Byronlen advised NOT to stop any medication s till she discusses this with her psychiatri Rashida states that her mother 'likes to doctor herself'Sh e should see her GI, s/p EGD done already, GI referral provided to her today 11/18/2024 OV 01/13/2025 : Is NOT wanting to see GI OV 05/07/2025 :Still has nauseaUA: Cloudy and orange with Addendum: 05/08/2025 :[facility] 05/07/2025 , d/c with diagnosis of UTI Screening mammography 24 [id number] Z12.31 [id number] Transition of care 74600 [id number] 105 Z75.8 History of cerebrovascular accident [id number] Z86.73 [id number] OV 05/07/2025 :As per D/c summary from [facility] could not get a MRI and as per patient now is to get a MRI at [facility] but this has not yet happened Patient still has dizziness, has also noted falls in her bathroomSh e is hypotensiv e and bradycardi cDid recommend she proceed to the ER todayDid discuss with Pippa her CG and he wanted initially to take her in his car, but patient did decide to call 911, case discussed with the EMTMelissa also placed with the ER MD at [facility], he seemed reluctant to accept this patient stating that 'we do not do MRI with pacemaker and she would need to be transferre d', discussed with the ER MD that it would be his prerogativ e to decide if the patient needs further care in another facility, then the ER MD stated that she should be sent via computational mathematician, explained to him that the CG had initially refused but now will do so Urinary symptoms [id number] R39.9 [id number] Goals Section Goal Description Progress Status Start [...] 9:34 Moderate recurrent major depression Active Ara Ozuan RN Not Available 01/16/2024 22: 18:57 Advance Directives Directive Y: Payers Insurance Date Sequence Insurance Name Policy Number Policy Briceno Covered Member ID Briceno Member ID Guarantor Name 05/27/2025 1 [facility] - MEDICARE COMPLETE - CHOICE PLAN 2 (MEDICARE REPLACEMENT REGIONAL PPO) [id number] Yi Martino [id number] Yi Martino Notes Date Note Type Note Provider Name and Address Organization Details Recorded Time 01/01/2025 text/html Primary care/Referring provider: Roque Reddy MD; Evon Ceja MD Patient is here to go over her COPD management. Initial development of shortness of breath: uration of shortness of breath: 4 yearsCondition of shortness of breath: stableTiming of shortness of breath: noneFrequency: up to 2 times a dayLimits activities: yesAggravating factors: walking from bathroom to bedroom, changing clothesAlleviating factors: rest Modified [employer] (mMRC) Dyspnea Scale - Grade 2Grade 0 [...] slight chance of dozing. Loreta Haque MD [address] [place] [address], [place] [address], [place], [address], [facility] [email or web address] 01/01/2025 15:24:31 01/13/2025 text/html OV 11/06/2023: Here to establish carePast Hx:HTNCardiomyopathyIns omniaDepressionHypothyr oidism Here [...] and is on albuterol Roque Reddy MD [address] [facility], [facility] [address], [place], [address], [place] [facility] [employer] 01/14/2025 19:24:11 03/13/2025 text/html Primary care/Referring provider: Roque Reddy MD; Evon Ceja MD Patient is here to go over her COPD management. Initial development of shortness of breath: uration of shortness of breath: 4 yearsCondition of shortness of breath: stableTiming of shortness of breath: noneFrequency: up to 2 times a dayLimits activities: yesAggravating factors: walking from bathroom to bedroom, changing clothesAlleviating factors: rest Modified [employer] (mMRC) Dyspnea Scale - Grade 2Grade 0 [...] chance of dozing. Loreta Haque MD [address] [facility], [facility] [address], [place], [address], [place] [facility] [employer] 03/13/2025 15:21:35 04/21/2025 text/html OV 11/06/2023: Here to establish carePast Hx:HTNCardiomyopathyIns omniaDepressionHypothyr oidism Here [...] seen Dr Haque and is on albuterol OV 04/21/2025: Here for her f/u apt, she is c/o very severe dizziness, s/p fall and was told she had a contusion, now is doing well, did get her INR reportedAlysa is recently d/c from hospital for CHFShe has also sustained a fall and now notes back pain, was seen in the UC and was told she had a contusion Roque Reddy MD [address] [facility], [address], [place], [address], [facility] [employer] 04/21/2025 16:03:43 05/07/2025 text/html OV 11/06/2023: Here to establish carePast Hx:HTNCardiomyopathyIns omniaDepressionHypothyr oidism Here [...] SOB and anxiety she has seen Dr Amaay and also has seen Dr Haque and is on albuterol OV 04/21/2025: Here for her f/u apt, she is c/o very severe dizziness, s/p fall and was told she had a contusion, now is doing well, did get her INR reportedShlexx is recently d/c from hospital for CHFShlexx has also sustained a fall and now notes back pain, was seen in the and was told she had a contusion OV 05/07/2025:Here for f/u apt, s/p d/c from [facility] 04/25/2025Still has dizziness, states that yesterday when she was in her shower she got dizzy and fell backNow also has noted supra pubic abdominal pain, states that her pain is quite intense, also has nausea but no vomiting, she denies any fevers or chillsStates that she was to see cardiology but has not been contacted by Dr Gannon her electroplater helper, she does state that in the last hospital stay her losartan was d/cShe also states that she did have a heart monitor put in and taken away upon d/c but was not told what her report wasAlysa also was told she may have a stroke but has not been contacted by [facility] for her MRI, as per her d/c note she did have a CT head but now needed a MRI but this could not be done as she has a pacemaker Roque Reddy MD [address], [facility] [address], [place], [address], [place] [facility] 06/01/2025 17:06:40 OBGyn Episode No OBEpisode recorded.
--- OUTSIDE RECORDS SUMMARY | 2025-06-09 14:15 | XMS_ITS | Encounter Summary ---
Author Organization [facility] Healthcare Address [address] [place] [address] Care Team Providers Care Web Content Producer Name Role Phone Bandar Gaffney MD Unavailable [phone] Dillan Reddy MD Primary Care Provide r Encounter Details Date Type Department Care Team (Late st Contact Info) Description 12/04/2024 Telephone [facility] Medical Group Cardiology [address] [facility] [address] [facility] [address] [place] [id number] Samy Ceja MD [address] [facility] [address] [place] [address] Social History Tobacco Use [...] often do you attend chur ch or yarsani services? 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
--- OUTSIDE RECORDS SUMMARY | 2025-06-09 14:15 | XMS_ITS | Encounter Summary ---
Author Organization [facility] Address [address] [facility] [address] [place] [address] Care Team Providers Care Assistant To The Vice President Name Role Phone Lana Tovar MD Primary Care Provider + Lana Tovar MD Primary Care Provider + Bandar Gaffney MD Unavailable [phone] Dillan Reddy MD Primary Care Provide r Encounter Details Date Type Department Care Team (Late st Contact Info) Description 2016 Orders Only [facility] ProviderSaurabh MD [address] [place] [address] Social History Tobacco Use Types Packs/Day Years Used Date Smoking Tobacco: Never Alcohol Use Standard Drinks/Week Comments No 0 (1 standard drink = 0.6 oz pur e alcohol) Comments Unknown Sex and Gender Information Value Date Recorded Sex Assigned at Not on file 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
--- OUTSIDE RECORDS SUMMARY | 2025-06-09 14:15 | XMS_ITS | Encounter Summary ---
Author Organization [facility] Healthcare Address [address] [place] [address] Care Team Providers Care Bi Solutions Architect Name Role Phone Lana Tovar MD Primary Care Provider + Bandar Gaffney MD Unavailable [phone] Dillan Reddy MD Primary Care Provide r Encounter Details Date Type Department Care Team (Late st Contact Info) Description 01/17/2018 Orders Only [facility] Health Information Management [address] [place] [address] Scanning, Provider Social History Tobacco Use Types Packs/Day Years Used Date Smoking Tobacco: Never Alcohol Use Standard Drinks/Week Comments No 0 (1 standard drink = 0.6 oz pur e alcohol) Comments Unknown Sex and Gender Information Value Date Recorded Sex Assigned at Not on file 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
--- OUTSIDE RECORDS SUMMARY | 2025-06-09 14:15 | XMS_ITS | Clinical Summary ---
Author Organization [facility] Address [address] [place] [address] Phone Care Team Providers Care Mental Health Clinician Name Role Phone Lana Tovar MD Primary [...] Virus (HCV) Screening 1945 TdaP Immunization 1945 Medicare Initial AWV [id number] 09/04/2017 Respiratory Syncytial Virus (RSV) Immunization (Adult) (1 - 1-dose 75+ series) 2020 Influenza Immunization (#1) 2025 09/2 10/2021, 06/12/2021, 05/12/2020, Additional history exists SARS-COV-2 Immunization (2024- season) 2025 05/26/2022, 02/22/2022, 06/30/2021, Additional history [...] to complete this topic Insurance MEDICARE C [facility] Care Teams Mental Health Clinician Relationship Specialty Start Date End Date Lana Tovar MD [address] [place] [address] PCP - General Family Medicine 12/23/16
[2025-06-09 14:46] LABS: INR 4.2; Prothrombin Time 38.9 Seconds (11.1-14.7)
== END 2025-06-09 13:10 | disposition home or self-care (01) ==
PROVIDERS: PCP Internal Medicine; Visit Provider Internal Medicine
DX: I50.9 Heart failure, unspecified (principal); I21.4 Non-ST elevation (NSTEMI) myocardial infarction; J18.9 Pneumonia, unspecified organism; J96.01 Acute respiratory failure with hypoxia; N18.9 Chronic kidney disease, unspecified; R13.10 Dysphagia, unspecified
CPT/HCPCS: 36415; 85610

== ENCOUNTER 2025-06-22 13:05 | Inpatient (IN) | payer MEDICARE, SELFPAY ==
--- NOTE | ~2025-06-22 | CT_ITS ---
EXAMINATION: CT brain wo sachi, 06/22/2025 15:00 CDT HISTORY: fall COMPARISON: No comparisons available. Technique: Axial images obtained of the brain without contrast. One or more of the following dose reduction techniques were used: automated exposure control, adjustment of the mA and/or kV according to patient size, use of iterative reconstruction technique. Findings: No acute infarct or parenchymal hemorrhage. No abnormal mass or mass effect. No midline shift. No extra-axial fluid collections. No hydrocephalus. Mastoid air cells unremarkable. Sinuses and orbits unremarkable. No acute fracture. No significant facial or scalp soft tissue swelling evident. No radiopaque foreign body is seen. Impression: 1.No acute intracranial abnormality. Reviewed, dictated and finalized at location P. Impression: 1.No acute intracranial abnormality.
--- NOTE | ~2025-06-22 | XR_ITS ---
EXAMINATION: XR chest 2V, 06/22/2025 14:12 CDT HISTORY: weakness COMPARISON: No comparisons available. Technique: 2 views obtained. Findings: Mild pulmonary venous congestion. No pneumothorax. Mild cardiomegaly. Mediastinal and hilar contours are within normal limits. Bony thorax no acute abnormality. Left pacemaker. Impression: Mild CHF Reviewed, dictated and finalized at location P. Impression: Mild CHF
--- NOTE | ~2025-06-22 | CT_ITS ---
Yi Martino EXAMINATION: CT abdomen pelvis w con COMPARISON: None HISTORY: abd pain, diarrhea, UTI TECHNIQUE: Axial images were obtained through the abdomen, pelvis post administration of IV contrast. Oral contrast was also administered. Coronal reconstruction images were obtained from the axial views. CT scan performed using dose optimization techniques including the following automated exposure control; adjustment of mA and/or kV; use of iterative reconstruction technique. Automatic exposure control was used to reduce radiation dose. Permanent radiation dose record is archived to PACS. FINDINGS: CT abdomen: LUNG BASES: Mild cardiomegaly. LIVER: Mild hepatic steatosis. Portal vein patent. No intrahepatic biliary duct dilatation. SPLEEN: Unremarkable. KIDNEYS: Right Kidney: Right kidney large simple appearing renal cyst 9 x 9 cm. Left Kidney: Left kidney midpole simple cyst 1 x 1 cm. ADRENAL GLANDS: Unremarkable. PANCREAS: Severe pancreatic atrophy. GALLBLADDER/BILIARY: Unremarkable. No biliary dilatation. STOMACH AND ESOPHAGUS: Moderate hiatal hernia. BOWEL/MESENTERY: Moderate diverticulosis, no colitis or diverticulitis. Appendix normal. Mesentery normal. No dilated small bowel loops. ADENOPATHY/RETROPERITONEUM: No lymphadenopathy. AORTA/VASCULATURE: Normal caliber aorta. FREE FLUID OR FREE AIR: No free fluid.. CT pelvis: SOLID ORGANS/REPRODUCTIVE: Post hysterectomy. No adnexal mass. BLADDER: There is circumferential thickening of the bladder with mucosal hyperemia perivesicular stranding. OSSEOUS STRUCTURES: No acute osseous abnormality.No suspicious lesions. OVERLYING SOFT TISSUES: Unremarkable. IMPRESSION: 1. Severe cystitis 2. Severe atrophy of the pancreas, underlying pancreatic lesion is not excluded. Outpatient contrast-enhanced MRI is recommended Reviewed, dictated and finalized at location P. IMPRESSION: 1. Severe cystitis 2. Severe atrophy of the pancreas, underlying pancreatic lesion is not excluded . Outpatient contrast-enhanced MRI is recommended
[2025-06-22 13:22] VITALS: BP 138/68; PULSE 75; RESP 16; TEMP 37.2; O2SAT 92
--- NOTE | 2025-06-22 13:40 | ECG_ITS ---
Test Date: 2025-06-22 13:47:31 Measurements Intervals [place] Rate: 71 P: 55 MT: 164 QRS: -15 QRSD: 153 T: 107 QT: 442 QTc: 482 Interpretive Statements ATRIAL SENSE- ELECTRONIC VENTRICULAR PACEMAKER BASELINE ARTIFACT- II, V1-V2 NO FURTHER INTERPRETATION IS POSSIBLE ATYPICAL ECG Compared to ECG 05/23/2025 08:48:49 No significant changes Electronically Signed On 06-22-2025 14:10:26 CDT by Tevin Wong D.O.
[2025-06-22 14:08] LABS: Hematocrit 37.5 % (37.0-47.0); Hemoglobin 11.4 g/dL (12.0-15.0); Immature Granulocyte Percent A 0.1 % (0-0.5); Lymphocytes Absolute Auto 1.16 K/mm3 (0.9-3.2); Mean Corpuscular HGB Conc 30.4 g/dl (32-36); Mean Corpuscular Hemoglobin 30.6 pg (26-34); Mean Corpuscular Volume 100.8 fl (80-100); Nucleated Red Blood Cells Absolute Auto 0.000 K/mm3 (0.0-0.012); Nucleated Red Blood Cells Perc 0.0 % (0.0-0.2); Platelet Count Result 195 k/mm3 (150-375); Red Blood Count 3.72 M/mm3 (4.2-5.4); White Blood Count 7.3 K/mm3 (4.5-10.0)
[2025-06-22 14:31] LABS: Add Urine Microscopic? YES; Appearance Urine Turbid (Clear); Glucose Urine UA Negative (Negative); Leukocyte Esterase Ur 3+ LEU/UL (Negative); Need Manual Microscopic Reviewed; Nitrate Urine Positive (Negative); Non Pathogenic Casts >20; Specific Grav Ur 1.016 (1.001-1.035)
[2025-06-22 14:35] LABS: Alanine Aminotransferase 31 U/L (6-35); Albumin Level 3.5 g/dL (3.5-5.1); Alkaline Phosphatase 66 U/L (38-126); Anion Gap 7 mmol/L (4-12); Aspartate Amino Transferase 70 U/L (14-36); Bilirubin,Total 0.3 mg/dL (0.2-1.3); Blood Urea Nitrogen 10 mg/dL (7-17); Calcium 8.7 mg/dL (8.4-10.2); Carbon Dioxide 27 mmol/L (22-30); Chloride 104 mmol/L (98-107); Estimated CRCL calculation 31 ml/min; Estimated Glomerular Filt Rate 45; Glucose 110 mg/dL (65-110); Potassium 3.5 mmol/L (3.4-5.0); Sodium 138 mmol/L (137-145); Total Protein 6.8 g/dL (6.3-8.2)
[2025-06-22 14:44] VITALS: BP 154/55; PULSE 63; RESP 17; O2SAT 95
--- NOTE | 2025-06-22 15:06 | ED.WEAKNESS ---
HPI - Weakness General Chief complaint: Fall <Rocio Suarez PA-C - Last Filed: 06/23/25 02:41> Stated complaint: LE weakness, glf last noc <HILARY Kirby Last Filed: 06/23/25 02:41> Time Seen by Provider: 06/22/25 14:09 <HILARY Kirby Last Filed: 06/23/25 02:41> Source: patient <HILARY Kirby Last Filed: 06/23/25 02:41> Mode of arrival: EMS <HILARY Kirby Last Filed: 06/23/25 02:41> Limitations: no limitations <HILARY Kirby Last Filed: 06/23/25 02:41> History of Present Illness HPI Narrative: This is a 79 year old female that presents to the ER for generalized weakness. Reports she was unable to get up off the toilet yesterday, sustained a fall. Reports she does not believe she hit her head. She did not lose consciousness. Reports lower abdominal pain. Reports some diarrhea, but that is fairly chronic for her. Denies fever, chest pain, shortness of breath, focal injuries from the fall. <Rocio Suarez PA-C - Last Filed: 06/23/25 02:41> Related Data Home medications: Home Medications ?Medication ?Instructions ?Recorded ?Confirmed ?Last Taken ?Type trazodone 150 mg tablet 150 mg PO HS 03/22/21 06/22/25 06/21/25 History venlafaxine 37.5 mg 37.5 mg PO DAILY 08/22/22 06/22/25 06/21/25 History capsule,extended release 24 hr (Effexor XR) rosuvastatin 40 mg tablet 40 mg PO DAILY 12/27/23 06/22/25 06/21/25 History amiodarone 200 mg tablet 200 mg PO DAILY 01/02/24 06/22/25 06/21/25 History clonazepam 0.5 mg tablet 0.5 mg PO TID 01/02/24 06/22/25 06/21/25 History levothyroxine 150 mcg tablet 150 mcg PO DAILY 01/02/24 06/22/25 06/21/25 History carvedilol 12.5 mg tablet 25 mg PO DAILY 12/24/24 06/22/25 06/21/25 History cyanocobalamin (vitamin B-12) 1,000 mcg subcut MONTHLY 03/25/25 06/22/25 06/05/25 History 1,000 mcg/mL injection solution donepezil 10 mg tablet 10 mg PO HS 03/25/25 06/22/25 06/21/25 History famotidine 20 mg tablet 20 mg PO Q12H PRN reflux 03/25/25 06/22/25 04/21/25 History furosemide 40 mg tablet 40 mg PO 3XW 03/25/25 06/22/25 06/20/25 History spironolactone 25 mg tablet 25 mg PO DAILY 03/25/25 06/22/25 06/21/25 History acetaminophen 650 mg 650 mg PO Q8H PRN pain 05/20/25 06/22/25 Unknown History tablet,extended release (8 Hour Pain Reliever) <Rocio Suarez PA-C - Last Filed: 06/23/25 02:41> Allergies/Adverse reactions: Allergies Allergy/AdvReac Type Severity Reaction Status Date / Time codeine Allergy Unknown Unknown Verified 06/22/25 18:17 hydroxyzine Allergy Unknown Unknown Verified 06/22/25 18:17 lorazepam Allergy Unknown Unknown Verified 06/22/25 18:17 tramadol Allergy Unknown Unknown Verified 06/22/25 18:17 NSAIDS (Non-Steroidal AdvReac Unknown Nausea Verified 06/22/25 18:17 Anti-Inflamma sumatriptan AdvReac Unknown FELT Verified 06/22/25 18:17 HORRIBLE <Rocio Suarez PA-C - Last Filed: 06/23/25 02:41> Review of Systems Review of Systems: All systems reviewed & are unremarkable except as noted in HPI and below <Rocio Suarez PA-C - Last Filed: 06/23/25 02:41> [facility] Past Medical History Medical History: Medical History Chronic anticoagulation Transient ischemic attack Gastroesophageal reflux disease Chronic kidney disease Depression with anxiety Deep venous thrombosis Heart failure with reduced ejection fraction EF was 20 to 25% in March 2021. Left bundle branch block Hyperlipidemia Hypertension Hypothyroidism Cardiomyopathy Bipolar disorder <Rocio Suarez PA-C - Last Filed: 06/23/25 02:41> Surgical History Surgical History: Surgical History History of colon resection History of bilateral knee arthroplasty History of repair of left rotator cuff History of bladder suspension procedure History of tonsillectomy History of cardiac catheterization History of partial hysterectomy History of orthopedic surgery <Rocio Suarez PA-C - Last Filed: 06/23/25 02:41> Family History Family History: Family History Father Hypertension Cerebrovascular accident Mother Family history of diabetes mellitus in first degree relative Family history of lung disease Family history of coronary artery disease Sibling Family history of diabetes mellitus in first degree relative Cardiomyopathy Son Family history of mental disorder Other Family history of alcoholism Family history of arthritis Family history of gout <HILARY Kirby Last Filed: 06/23/25 02:41> Social History Social History: Social History Social History: Surrogate medical decision maker: Man Linton, sibling. Code status: Full code. Smoking status: Never smoker Second hand tobacco smoke exposure: No Alcohol intake: never Substance use: never Substance use type: does not use Do You Feel Safe in your Home?: Yes Lack of Transportation: No Lack of Food: Never True Current Housing: I Have Housing Concerned About Future Housing: No Difficulty Paying Gas/Electric Bills: No Difficulty Paying for Meds: No Currently Unemployed: No Education: High School Diploma/GED Difficulty w/ Childcare or Family Care: No Living arrangements: with roommate(s) Additional living arrangements comments: . Has 1 child. Additional occupation/education comments: Retired from the [employer]. Spiritual care concerns: No <HILARY Kirby Last Filed: 06/23/25 02:41> Exam Narrative: GENERAL: Elderly, well-nourished, and in no acute distress. HEAD: Normocephalic, atraumatic. EYES: PERRLA and EOMI. ENT: Nares clear, no rhinorrhea or epistaxis. Mucous membranes moist. Oropharynx without tonsillar hypertrophy exudate or other lesions. Bilateral TMs pearly aj non-bulging NECK: Supple. No adenopathy or masses. CHEST: Clear to auscultation. No respiratory distress. No wheezes rales or rhonchi HEART: Regular rate and rhythm. No murmur heard. Normal peripheral pulses. ABDOMEN: Soft, nontender, nondistended, normal active bowel sounds. EXTREMITIES: Normal range of motion. No edema. SKIN: Warm, dry, no rash. NEURO: No focal deficits. Alert and oriented x3. PSYCH: Normal mood and affect <Rocio Suarez PA-C - Last Filed: 06/23/25 02:41> Course ENERGY CONSERVATION TECHNICIAN/PA Physician Supervision This visit was performed by both a physician and an APC. I performed all aspects of the MDM as documented. <James Plata MD - Last Filed: 07/01/25 07:19> Consultations Consultation #1: spoke with hospitalist about patient and workup who accepts admission <Rocio Suarez PA-C - Last Filed: 06/23/25 02:41> Date: 06/22/25 <Rocio Suarez PA-C - Last Filed: 06/23/25 02:41> Vital Signs Vital signs: Vital Signs Temperature 99 F 06/22/25 13:22 Pulse Rate 75 06/22/25 13:22 Respiratory Rate 16 06/22/25 13:22 Blood Pressure 138/68 06/22/25 13:22 Pulse Oximetry 92 06/22/25 13:22 Oxygen Delivery Room Air 06/22/25 13:22 Temperature 98.3 F 06/27/25 06:00 Pulse Rate 60 06/27/25 06:00 Respiratory Rate 14 06/27/25 06:00 Blood Pressure 130/49 L 06/27/25 06:00 Pulse Oximetry 93 06/27/25 06:00 Oxygen Delivery Room Air 06/27/25 08:00 <Rocio Suarez PA-C - Last Filed: 06/23/25 02:41> Vital Signs Temperature 99 F 06/22/25 13:22 Pulse Rate 75 06/22/25 13:22 Respiratory Rate 16 06/22/25 13:22 Blood Pressure 138/68 06/22/25 13:22 Pulse Oximetry 92 06/22/25 13:22 Oxygen Delivery Room Air 06/22/25 13:22 Temperature 98.3 F 06/27/25 06:00 Pulse Rate 60 06/27/25 06:00 Respiratory Rate 14 06/27/25 06:00 Blood Pressure 130/49 L 06/27/25 06:00 Pulse Oximetry 93 06/27/25 06:00 Oxygen Delivery Room Air 06/27/25 08:00 <James Plata MD - Last Filed: 07/01/25 07:19> MDM - Weakness MDM Narrative Medical decision making narrative: Patient presents the emergency department for generalized weakness fall. She is afebrile and nontoxic appearing. Her vitals are stable. Cbc without leukocytosis. Metabolic panel with kidney function that is around baseline. Urine with evidence of infection. This was sent for culture. Patient started on IV antibiotics based on her previous culture. CT brain without acute findings. CT abdomen pelvis shows severe cystitis. Chest x-ray showing mild CHF. Spoke with hospitalist about patient and workup who accepts admission <Rocio Suarez PA-C - Last Filed: 06/23/25 02:41> Patient presents the emergency department for generalized weakness fall. She is afebrile and nontoxic appearing. Her vitals are stable. Cbc without leukocytosis. Metabolic panel with kidney function that is around baseline. Urine with evidence of infection. This was sent for culture. Patient started on IV antibiotics based on her previous culture. CT brain without acute findings. CT abdomen pelvis shows severe cystitis. Chest x-ray showing mild CHF. Spoke with hospitalist about patient and workup who accepts admission This visit was performed by both a physician and an APC. I performed all aspects of the MDM as documented. <James Plata MD - Last Filed: 07/01/25 07:19> Differential Diagnosis Differential diagnosis: Likely anemia, sepsis, dehydration and other (UTI) <Rocio Suarez PA-C - Last Filed: 06/23/25 02:41> Lab Data Attestation: I reviewed the patient's lab results. <Rocio Suarez PA-C - Last Filed: 06/23/25 02:41> Result diagrams: 06/27/25 06:17 06/27/25 06:17 <Rocio Suarez PA-C - Last Filed: 06/23/25 02:41> Labs: Lab Results 06/22/25 06/22/25 06/23/25 Range/Units 13:58 14:11 05:30 WBC 7.3 (4.5-10.0) K/mm3 RBC 3.72 L (4.2-5.4) M/mm3 Hgb 11.4 L (12.0-15.0) g/dL Hct 37.5 (37.0-47.0) % MCV 100.8 H (80-100) fl MCH 30.6 (26-34) pg MCHC 30.4 L (32-36) g/dl RDW 14.6 H (11.5-14.5) % Plt Count 195 (150-375) k/mm3 MPV 9.5 (7.4-10.4) fl Immature Gran % (Auto) 0.1 (0-0.5) % Neut % (Auto) 73.9 H (45.5-73.1) % Lymph % (Auto) 15.8 L (18.3-44.2) % [place] % (Auto) 9.8 H (2.6-8.5) % Eos % (Auto) 0.1 (0-4.4) % Baso % (Auto) 0.3 (0.2-1.2) % Lymph # (Auto) 1.16 (0.9-3.2) K/mm3 [place] # (Auto) 0.7 H (0.1-0.6) K/mm3 Eos # (Auto) 0.0 (0-0.3) K/mm3 Baso # (Auto) 0.0 (0.0-0.1) K/mm3 Abs Immat Gran (auto) 0.01 (0.00-0.031) K/mm3 Absolute Neuts (auto) 5.4 (1.3-6.7) K/mm3 Absolute Nucleated RBC 0.000 (0.0-0.012) K/mm3 Nucleated RBC % 0.0 (0.0-0.2) % PT 29.2 H (11.1-14.7) Seconds INR 2.9 Sodium 138 134 L (137-145) mmol/L Potassium 3.5 3.5 (3.4-5.0) mmol/L Chloride 104 105 (98-107) mmol/L Carbon Dioxide 27 25 (22-30) mmol/L Anion Gap 7 4 (4-12) mmol/L BUN 10 7 (7-17) mg/dL Creatinine 1.17 H 0.98 (0.7-1.0) mg/dL Estim Creat Clear Calc 31 37 ml/min Estimated GFR 45 L 55 L (59 - ) Glucose 110 80 (65-110) mg/dL Calcium 8.7 8.0 L (8.4-10.2) mg/dL Phosphorus 3.0 (2.5-4.5) mg/dL Total Bilirubin 0.3 (0.2-1.3) mg/dL AST 70 H (14-36) U/L ALT 31 (6-35) U/L Alkaline Phosphatase 66 (38-126) U/L NT-Pro-B Natriuret Pep 2590 H 2870 H (19.9-100) pg/mL Total Protein 6.8 (6.3-8.2) g/dL Albumin 3.5 2.9 L (3.5-5.1) g/dL Urine Color Yellow (Yellow) Urine Appearance Turbid H (Clear) Urine pH 5.5 (5.0-9.0) Ur Specific [place] 1.016 (1.001-1.035) Urine Protein 2+ H (Negative) mg/dL Urine Glucose (UA) Negative (Negative) mg/dL Urine Ketones Trace H (Negative) mg/dL Ur Blood (Man) 1+ H (Negative) Urine Nitrate Positive H (Negative) Urine Bilirubin Negative (Negative) Urine Urobilinogen 0.2 (<2.0) mg/dL Add Ur Microanalysis Reviewed Leukocyte Esterase Rfl 3+ H (Negative) MERVAT/UL Urine RBC 0-2 (0-2) /hpf Urine WBC >100 H (0-3) /hpf Ur Squamous Epith Cells None seen (Few) /hpf Urine Bacteria 4+ /hpf Urine Casts >20 <Rocio Suarez PA-C - Last Filed: 06/23/25 02:41> Lab Results 06/22/25 06/22/25 06/23/25 Range/Units 13:58 14:11 05:30 WBC 7.3 (4.5-10.0) K/mm3 RBC 3.72 L (4.2-5.4) M/mm3 Hgb 11.4 L (12.0-15.0) g/dL Hct 37.5 (37.0-47.0) % MCV 100.8 H (80-100) fl MCH 30.6 (26-34) pg MCHC 30.4 L (32-36) g/dl RDW 14.6 H (11.5-14.5) % Plt Count 195 (150-375) k/mm3 MPV 9.5 (7.4-10.4) fl Immature Gran % (Auto) 0.1 (0-0.5) % Neut % (Auto) 73.9 H (45.5-73.1) % Lymph % (Auto) 15.8 L (18.3-44.2) % [place] % (Auto) 9.8 H (2.6-8.5) % Eos % (Auto) 0.1 (0-4.4) % Baso % (Auto) 0.3 (0.2-1.2) % Lymph # (Auto) 1.16 (0.9-3.2) K/mm3 [place] # (Auto) 0.7 H (0.1-0.6) K/mm3 Eos # (Auto) 0.0 (0-0.3) K/mm3 Baso # (Auto) 0.0 (0.0-0.1) K/mm3 Abs Immat Gran (auto) 0.01 (0.00-0.031) K/mm3 Absolute Neuts (auto) 5.4 (1.3-6.7) K/mm3 Absolute Nucleated RBC 0.000 (0.0-0.012) K/mm3 Nucleated RBC % 0.0 (0.0-0.2) % PT 29.2 H (11.1-14.7) Seconds INR 2.9 Sodium 138 134 L (137-145) mmol/L Potassium 3.5 3.5 (3.4-5.0) mmol/L Chloride 104 105 (98-107) mmol/L Carbon Dioxide 27 25 (22-30) mmol/L Anion Gap 7 4 (4-12) mmol/L BUN 10 7 (7-17) mg/dL Creatinine 1.17 H 0.98 (0.7-1.0) mg/dL Estim Creat Clear Calc 31 37 ml/min Estimated GFR 45 L 55 L (59 - ) Glucose 110 80 (65-110) mg/dL Calcium 8.7 8.0 L (8.4-10.2) mg/dL Phosphorus 3.0 (2.5-4.5) mg/dL Total Bilirubin 0.3 (0.2-1.3) mg/dL AST 70 H (14-36) U/L ALT 31 (6-35) U/L Alkaline Phosphatase 66 (38-126) U/L NT-Pro-B Natriuret Pep 2590 H 2870 H (19.9-100) pg/mL Total Protein 6.8 (6.3-8.2) g/dL Albumin 3.5 2.9 L (3.5-5.1) g/dL Urine Color Yellow (Yellow) Urine Appearance Turbid H (Clear) Urine pH 5.5 (5.0-9.0) Ur Specific [place] 1.016 (1.001-1.035) Urine Protein 2+ H (Negative) mg/dL Urine Glucose (UA) Negative (Negative) mg/dL Urine Ketones Trace H (Negative) mg/dL Ur Blood (Man) 1+ H (Negative) Urine Nitrate Positive H (Negative) Urine Bilirubin Negative (Negative) Urine Urobilinogen 0.2 (<2.0) mg/dL Add Ur Microanalysis Reviewed Leukocyte Esterase Rfl 3+ H (Negative) MERVAT/UL Urine RBC 0-2 (0-2) /hpf Urine WBC >100 H (0-3) /hpf Ur Squamous Epith Cells None seen (Few) /hpf Urine Bacteria 4+ /hpf Urine Casts >20 <James Plata MD - Last Filed: 07/01/25 07:19> Imaging Data Radiologist's impression: ITS Impressions Chest X-Ray 06/22/25 14:46 Impression: Mild CHF Head CT 06/22/25 15:31 Impression: 1.No acute intracranial abnormality. Abdomen/Pelvis CT 06/22/25 15:38 IMPRESSION: 1. Severe cystitis 2. Severe atrophy of the pancreas, underlying pancreatic lesion is not excluded. Outpatient contrast-enhanced MRI is recommended <Rocio Suarez PA-C - Last Filed: 06/23/25 02:41> ECG Data EKG #1: ECG completion date: 06/22/25 <Rocio Suarez PA-C - Last Filed: 06/23/25 02:41> EKG Interpretation: normal rate and other (ventricular pacemaker) <Rocio Suarez PA-C - Last Filed: 06/23/25 02:41> Critical Care Time Critical Care Time Critical Care Time: No <HILARY Kirby Last Filed: 06/23/25 02:41> Discharge Plan Discharge Clinical Impression: Acute UTI, Atrophic pancreas <Rocio Suarez PA-C - Last Filed: 06/23/25 02:41> Patient Disposition: Still a Patient <HILARY Kirby Last Filed: 06/23/25 02:41> Condition: Stable <HILARY Kirby Last Filed: 06/23/25 02:41>
[2025-06-22 16:17] LABS: NT Pro B Type Natriuretic Pept 2590 pg/mL (19.9-100)
[2025-06-22] MEDS: levoFLOXacin 750 MG/D5W 150 ML 750 MG/150 ML BAG 100 MG IVPB (16:33)
[2025-06-22 17:36] VITALS: BP 155/71; PULSE 66; RESP 17; O2SAT 95
[2025-06-22 18:02] VITALS: BMI 26.2
--- NOTE | 2025-06-22 18:03 | ADMGEN ---
This patient, Yi Martino, was admitted to [facility] Surg Room 323-01. Patient/family oriented to hospital policies and general routines including ID bracelet, bed and alarms, visiting hours, pain management, procedures, bathroom and other care routines, personal items, smoking policy, room service/diet, and visiting hours. Information on how to activate the Rapid Response Team has been discussed. Patient/Family are encouraged to report perceived risks to care and to ask questions if they do not understand what they are told or what they should do. Report received from CLARITZA Lewis
[2025-06-22 20:25] VITALS: BP 143/52; PULSE 68; RESP 20; TEMP 36.1; O2SAT 97
--- NOTE | 2025-06-23 02:00 | PM.IMHP ---
H&P: HPI History of Present Illness Date/Time: 06/22/251829 Chief Complaint: Generalized weakness and fall Narrative: 79-year-old female with a past medical history of GERD, depression, DVT, AFib on warfarin, bipolar disorder, TD, hypothyroidism, HTN, hyperlipidemia,HFrEF s/p pacemaker presented to the ED on 06/22/2025 with complaints of generalized weakness. Patient reports she was unable to get off the toilet on 06/21 which resulted in a fall. Patient does not believe she hit her head and denies loss of consciousness. Patient states her symptoms of weakness have been present for the past 2 days prior to arrival. She denies fevers, chills, chest pain. She endorses chronic nausea and diarrhea which has been worked up in the past, along with recent weight loss. Patient was admitted from 05/20/2025 to 05/30/2025 with pneumonia and dysphagia. Lab significant for anemia at baseline. Creatinine 1.7. AST 70. BNP 2590. UA with signs of infection wbc's greater than 100, leukocyte esterase 3+, positive nitrate Chest x-ray with left pacemaker and mild CHF Head CT with no acute intracranial abnormality Abdominal pelvic CT showed severe cystitis in severe atrophy of the pancreas Review of Systems Review of Systems: All systems reviewed & are unremarkable except as noted in HPI and below PMFSH Past Medical History Medical History Chronic anticoagulation Transient ischemic attack Gastroesophageal reflux disease Chronic kidney disease Depression with anxiety Deep venous thrombosis Heart failure with reduced ejection fraction EF was 20 to 25% in March 2021. Left bundle branch block Hyperlipidemia Hypertension Hypothyroidism Cardiomyopathy Bipolar disorder Surgical History Surgical History History of colon resection History of bilateral knee arthroplasty History of repair of left rotator cuff History of bladder suspension procedure History of tonsillectomy History of cardiac catheterization History of partial hysterectomy History of orthopedic surgery Family History Family History Father Hypertension Cerebrovascular accident Mother Family history of diabetes mellitus in first degree relative Family history of lung disease Family history of coronary artery disease Sibling Family history of diabetes mellitus in first degree relative Cardiomyopathy Son Family history of mental disorder Other Family history of alcoholism Family history of arthritis Family history of gout Social History Social History Social History: Surrogate medical decision maker: Man Linton, sibling. Code status: Full code. Smoking status: Never smoker Second hand tobacco smoke exposure: No Alcohol intake: never Substance use: never Substance use type: does not use Do You Feel Safe in your Home?: Yes Lack of Transportation: No Lack of Food: Never True Current Housing: I Have Housing Concerned About Future Housing: No Difficulty Paying Gas/Electric Bills: No Difficulty Paying for Meds: No Currently Unemployed: No Education: High School Diploma/GED Difficulty w/ Childcare or Family Care: No Living arrangements: with roommate(s) Additional living arrangements comments: . Has 1 child. Additional occupation/education comments: Retired from the [employer]. Spiritual care concerns: No Meds Home Medications and Allergies Home Medications ?Medication ?Instructions ?Recorded ?Confirmed ?Type trazodone 150 mg tablet 150 mg PO HS 03/22/21 06/22/25 History venlafaxine 37.5 mg 37.5 mg PO DAILY 08/22/22 06/22/25 History capsule,extended release 24 hr (Effexor XR) rosuvastatin 40 mg tablet 40 mg PO DAILY 12/27/23 06/22/25 History amiodarone 200 mg tablet 200 mg PO DAILY 01/02/24 06/22/25 History clonazepam 0.5 mg tablet 0.5 mg PO TID 01/02/24 06/22/25 History levothyroxine 150 mcg tablet 150 mcg PO DAILY 01/02/24 06/22/25 History carvedilol 12.5 mg tablet 25 mg PO DAILY 12/24/24 06/22/25 History cyanocobalamin (vitamin B-12) 1,000 mcg subcut MONTHLY 03/25/25 06/22/25 History 1,000 mcg/mL injection solution donepezil 10 mg tablet 10 mg PO HS 03/25/25 06/22/25 History famotidine 20 mg tablet 20 mg PO Q12H PRN reflux 03/25/25 06/22/25 History furosemide 40 mg tablet 40 mg PO 3XW 03/25/25 06/22/25 History spironolactone 25 mg tablet 25 mg PO DAILY 03/25/25 06/22/25 History warfarin 3 mg tablet 2 mg (0.6667 x 3 mg) PO DAILY #30 03/31/25 06/22/25 Rx tabs acetaminophen 650 mg 650 mg PO Q8H PRN pain 05/20/25 06/22/25 History tablet,extended release (8 Hour Pain Reliever) hydralazine 10 mg tablet 10 mg PO BID #60 tabs 05/30/25 06/22/25 Rx loratadine 10 mg tablet 10 mg PO QAM #30 tabs 05/30/25 06/22/25 Rx metoclopramide HCl 5 mg tablet 5 mg PO ACHS #120 tabs 05/30/25 06/22/25 Rx ondansetron 4 mg disintegrating 8 mg (2 x 4 mg) PO Q12H PRN nausea 05/30/25 06/22/25 Rx tablet and vomiting #30 tabs Allergies Allergy/AdvReac Type Severity Reaction Status Date / Time codeine Allergy Unknown Unknown Verified 06/22/25 18:17 hydroxyzine Allergy Unknown Unknown Verified 06/22/25 18:17 lorazepam Allergy Unknown Unknown Verified 06/22/25 18:17 tramadol Allergy Unknown Unknown Verified 06/22/25 18:17 NSAIDS (Non-Steroidal AdvReac Unknown Nausea Verified 06/22/25 18:17 Anti-Inflamma sumatriptan AdvReac Unknown FELT Verified 06/22/25 18:17 HORRIBLE Vital Signs Vital Signs - 24 hr 06/22/25 13:22 06/22/25 14:44 06/22/25 17:36 Temperature 99 F Pulse Rate 75 63 66 Respiratory Rate 16 17 17 Blood Pressure 138/68 154/55 H 155/71 H Pulse Oximetry 92 95 95 Oxygen Delivery Room Air 06/22/25 20:25 Temperature 96.9 F L Pulse Rate 68 Respiratory Rate 20 Blood Pressure 143/52 H Pulse Oximetry 97 Oxygen Delivery Exam Narrative: GENERAL: Chronically ill-appearing, in no acute distress. HEAD: Normocephalic, atraumatic. EYES: PERRLA. Conjunctivae clear. NOSE: Normal no drainage. THROAT: Pharynx clear, no exudate. NECK: Trachea midline. No adenopathy, no masses. RESPIRATORY: Airway patent, respirations nonlabored. CTA. CARDIOVASCULAR: Regular rate and rhythm . BREASTS: Defer GASTROINTESTINAL: Abdomen is soft and nontender. No organomegaly. Bowel sounds normal in all quadrants. GENITOURINARY: Defer MUSCULOSKELETAL: Moves all extremities. No gross deformities. No calf tenderness. SKIN: Warm, dry, normal color. NEURO: A&O X4. Speech clear. Evidence of TD with lip smacking and tongue movements PSYCHIATRIC: Normal interaction H&P: Results Labs Labs: Short CBC 06/22/25 Range/Units 13:58 WBC 7.3 (4.5-10.0) K/mm3 Hgb 11.4 L (12.0-15.0) g/dL Hct 37.5 (37.0-47.0) % Plt Count 195 (150-375) k/mm3 BMP 06/22/25 13:58 Sodium 138 Potassium 3.5 Chloride 104 Carbon Dioxide 27 BUN 10 Creatinine 1.17 H Glucose 110 Calcium 8.7 Liver Function 06/22/25 Range/Units 13:58 Total Bilirubin 0.3 (0.2-1.3) mg/dL AST 70 H (14-36) U/L ALT 31 (6-35) U/L Alkaline Phosphatase 66 (38-126) U/L Albumin 3.5 (3.5-5.1) g/dL Urine 06/22/25 Range/Units 14:11 Urine Color Yellow (Yellow) Urine Appearance Turbid H (Clear) Urine pH 5.5 (5.0-9.0) Ur Specific [place] 1.016 (1.001-1.035) Urine Protein 2+ H (Negative) mg/dL Urine Glucose (UA) Negative (Negative) mg/dL Assessment and Plan Assessment and plan (1) UTI (urinary tract infection): Qualifiers: Urinary tract infection type: acute cystitis Hematuria presence: without hematuria Qualified Code(s): N30.00 - Acute cystitis without hematuria Code(s): N39.0 - Urinary tract infection, site not specified Status: Acute Assessment and Plan: Patient denies symptoms prior to arrival. Abdomen pelvic CT revealed severe cystitis. UA with signs of infection wbc's greater than 100, leukocyte esterase 3+, positive nitrate -patient started on Levaquin based on most recent urine culture and sensitivity -blood cultures pending (2) CHF (congestive heart failure): Qualifiers: Heart failure type: unspecified Heart failure chronicity: acute on chronic Qualified Code(s): I50.9 - Heart failure, unspecified Code(s): I50.9 - Heart failure, unspecified Status: Acute Assessment and Plan: BNP 2590 on admit. Chest x-ray with mild CHF - BNP - most recent echo 04/22/2025 with EF 45-50 - monitor I&Os and daily weights - trend renal function Plan Diet: Heart healthy diet GI prophylaxis: NA DVT prophylaxis: Warfarin lines/drains: PIV Fluids: NA Code status: Full Quality VTE Prophylaxis VTE prophylaxis: pharmacologic ordered Hospitalist MIPS Advance Care Plan I have confirmed that the patient's Advanced Care Plan is present, code status is documented, or surrogate decision maker is listed in patient medical record.: Yes Medication Reconciliation I have utilized all available resources to obtain, update and review the patients current medications (includes all prescriptions, OTC, herbals, cannabis, and nutritional supplements).: Yes
[2025-06-23] MEDS: ACETAMINOPHEN 325 MG TABLET 650 MG PO ×2 (02:43→09:27)
[2025-06-23 04:57] VITALS: BP 131/54; PULSE 60; RESP 20; TEMP 36.1; O2SAT 93
[2025-06-23 05:57] LABS: Albumin Level 2.9 g/dL (3.5-5.1); Anion Gap 4 mmol/L (4-12); Blood Urea Nitrogen 7 mg/dL (7-17); Calcium 8.0 mg/dL (8.4-10.2); Carbon Dioxide 25 mmol/L (22-30); Chloride 105 mmol/L (98-107); Estimated CRCL calculation 37 ml/min; Estimated Glomerular Filt Rate 55; Glucose 80 mg/dL (65-110); Potassium 3.5 mmol/L (3.4-5.0); Sodium 134 mmol/L (137-145)
[2025-06-23 06:04] LABS: NT Pro B Type Natriuretic Pept 2870 pg/mL (19.9-100)
[2025-06-23 06:05] LABS: INR 2.9; Prothrombin Time 29.2 Seconds (11.1-14.7)
[2025-06-23] MEDS: METOCLOPRAMIDE HCL 5 MG TABLET PO ×4 (06:14→20:25)
[2025-06-23] MEDS: LEVOTHYROXINE SODIUM 150 MCG TABLET PO (06:14)
[2025-06-23 08:00] VITALS: PULSE 59; O2SAT 93
[2025-06-23] MEDS: ROSUVASTATIN 20 MG TABLET 40 MG PO (09:49)
[2025-06-23 09:50] VITALS: PULSE 59
[2025-06-23] MEDS: LORATADINE 10 MG TABLET PO (09:52)
[2025-06-23] MEDS: SPIRONOLACTONE 25 MG TABLET PO (09:52)
[2025-06-23] MEDS: VENLAFAXINE HCL XR 37.5 MG CAP PO (09:52)
[2025-06-23 11:42] VITALS: BMI 25.8
[2025-06-23 13:54] VITALS: BP 121/60; PULSE 60; RESP 18; TEMP 36.7; O2SAT 96
--- NOTE | 2025-06-23 15:48 | PM.IMPN ---
Progress Note: A&P Assessment and Plan (1) UTI (urinary tract infection): Qualifiers: Urinary tract infection type: acute cystitis Hematuria presence: without hematuria Qualified Code(s): N30.00 - Acute cystitis without hematuria Code(s): N39.0 - Urinary tract infection, site not specified Status: Acute Assessment and Plan: Patient denies symptoms prior to arrival. Abdomen pelvic CT revealed severe cystitis. UA with signs of infection wbc's greater than 100, leukocyte esterase 3+, positive nitrate -Continue CEfepime and follow up urine and blood cultures monitor (2) CHF (congestive heart failure): Qualifiers: Heart failure chronicity: acute on chronic Heart failure type: unspecified Qualified Code(s): I50.9 - Heart failure, unspecified Code(s): I50.9 - Heart failure, unspecified Status: Acute Assessment and Plan: BNP 2590 on admit. Chest x-ray with mild CHF - BNP - most recent echo 04/22/2025 with EF 45-50 - monitor I&Os and daily weights Restart home meds - trend renal function Plan Diet: Heart healthy diet DVT prophylaxis: Warfarin Code status: Full Subjective Date/time seen: 06/23/25 15:48 Interval history: Comfortable at bedside noted dysuria prior to admission Review of Systems Review of Systems: All systems reviewed & are unremarkable except as noted in HPI and below Exam Narrative: GENERAL: Chronically ill-appearing, in no acute distress. HEAD: Normocephalic, atraumatic. EYES: PERRLA. Conjunctivae clear. NOSE: Normal no drainage. THROAT: Pharynx clear, no exudate. NECK: Trachea midline. No adenopathy, no masses. RESPIRATORY: Airway patent, respirations nonlabored. CTA. CARDIOVASCULAR: Regular rate and rhythm . BREASTS: Defer GASTROINTESTINAL: Abdomen is soft and nontender. No organomegaly. Bowel sounds normal in all quadrants. GENITOURINARY: Defer MUSCULOSKELETAL: Moves all extremities. No gross deformities. No calf tenderness. SKIN: Warm, dry, normal color. NEURO: A&O X4. Speech clear. Evidence of TD with lip smacking and tongue movements PSYCHIATRIC: Normal interaction Objective Data Vital Signs Vital Signs: Vital Signs - 24 hr 06/22/25 17:36 06/22/25 20:25 06/23/25 04:57 Temperature 96.9 F L 97 F L Pulse Rate 66 68 60 Respiratory Rate 17 20 20 Blood Pressure 155/71 H 143/52 H 131/54 L Pulse Oximetry 95 97 93 Oxygen Delivery 06/23/25 08:00 06/23/25 09:50 06/23/25 12:45 Temperature Pulse Rate 59 L 59 L Respiratory Rate Blood Pressure Pulse Oximetry 93 Oxygen Delivery Room Air Room Air 06/23/25 13:54 Temperature 98.1 F Pulse Rate 60 Respiratory Rate 18 Blood Pressure 121/60 Pulse Oximetry 96 Oxygen Delivery Intake/Output Intake/Output: Intake & Output 06/20/25 06/21/25 06/22/25 06/23/25 23:59 23:59 23:59 23:59 Intake Total 440 Output Total 250 Balance 190 Meds/Results Medications: Active Medications Generic Name Dose Route Start Last Admin Trade Name Freq PRN Reason Stop Dose Admin Acetaminophen 650 mg 06/23/25 02:15 06/23/25 09:27 Acetaminophen 325 Mg Tablet PO 650 mg Q6H PRN Administration Mild Pain (1-3) or Fever Carvedilol 25 mg 06/23/25 09:00 06/23/25 09:50 Carvedilol 12.5 Mg Tablet PO 25 mg DAILY STAN Administration Hydralazine HCl 10 mg 06/23/25 09:00 06/23/25 09:52 Hydralazine 10 Mg Tablet PO 10 mg BID STAN Administration Levofloxacin/Dextrose 750 mg in 150 mls @ 100 mls/hr 06/24/25 16:00 Levaquin 750 Mg/D5w 150 Ml IVPB Q48H STAN Levothyroxine Sodium 150 mcg 06/23/25 06:30 06/23/25 06:14 Levothyroxine Sodium 150 Mcg Tablet PO 150 mcg DAILY@0630 STAN Administration Loratadine 10 mg 06/23/25 09:00 06/23/25 09:52 Loratadine 10 Mg Tablet PO 10 mg QAM STAN Administration Metoclopramide HCl 5 mg 06/22/25 21:00 06/23/25 11:55 Metoclopramide Hcl 5 Mg Tablet PO 5 mg ACHS STAN Administration Ondansetron HCl 8 mg 06/22/25 20:51 Ondansetron Hcl Odt 4 Mg Tablet PO Q12H PRN Nausea And Vomiting Rosuvastatin Calcium 40 mg 06/23/25 09:00 06/23/25 09:49 Rosuvastatin 20 Mg Tablet PO 40 mg DAILY STAN Administration Spironolactone 25 mg 06/23/25 09:00 06/23/25 09:52 Spironolactone 25 Mg Tablet PO 25 mg DAILY STAN Administration Trazodone HCl 150 mg 06/22/25 21:00 06/22/25 22:21 Trazodone Hcl 50 Mg Tablet PO 150 mg HS STAN Administration Venlafaxine HCl 37.5 mg 06/23/25 09:00 06/23/25 09:52 Venlafaxine Hcl Xr 37.5 Mg Cap PO 37.5 mg DAILY STAN Administration Warfarin Sodium 2 mg 06/23/25 17:00 Warfarin (*Pbkc) 2 Mg Tablet PO DAILY@1700 [facility] Radiology Results: ITS Impressions Chest X-Ray 06/22/25 14:46 Impression: Mild CHF Head CT 06/22/25 15:31 Impression: 1.No acute intracranial abnormality. Abdomen/Pelvis CT 06/22/25 15:38 IMPRESSION: 1. Severe cystitis 2. Severe atrophy of the pancreas, underlying pancreatic lesion is not excluded. Outpatient contrast-enhanced MRI is recommended Labs Labs: Laboratory Results - last 24 hr 06/22/25 06/23/25 13:58 05:30 PT 29.2 H INR 2.9 Sodium 134 L Potassium 3.5 Chloride 105 Carbon Dioxide 25 Anion Gap 4 BUN 7 Creatinine 0.98 Estim Creat Clear Calc 37 Estimated GFR 55 L Glucose 80 Calcium 8.0 L Phosphorus 3.0 NT-Pro-B Natriuret Pep 2590 H 2870 H Albumin 2.9 L Quality VTE Prophylaxis VTE prophylaxis: pharmacologic ordered
[2025-06-23] MEDS: WARFARIN (*PBKC) 2 MG TABLET PO (16:59)
[2025-06-23] MEDS: clonazePAM (*CRX) 0.5 MG TABLET PO (17:00)
[2025-06-23] MEDS: CEFEPIME 2 GM in SODIUM CHLORIDE 0.9% IV 50 ML 100 ML IVPB (17:01)
[2025-06-23] MEDS: ARTIFICIAL TEARS OPHTH SOLN 15 ML BOTTLE 1 DROP EACH EYE ×2 (17:01→17:07)
[2025-06-23] MEDS: FUROSEMIDE INJ 40 MG/4 ML VIAL 20 MG IV PUSH (17:05)
[2025-06-23] MEDS: DONEPEZIL HCL 10 MG TABLET PO (20:25)
[2025-06-23 20:33] VITALS: BP 133/60; PULSE 59; RESP 18; TEMP 36.8; O2SAT 95
[2025-06-24 05:09] VITALS: BP 109/49; PULSE 59; RESP 16; TEMP 37; O2SAT 92
[2025-06-24] MEDS: CEFEPIME 2 GM in SODIUM CHLORIDE 0.9% IV 50 ML 100 ML IVPB ×2 (05:46→18:33)
[2025-06-24] MEDS: LEVOTHYROXINE SODIUM 150 MCG TABLET PO (05:47)
[2025-06-24] MEDS: ACETAMINOPHEN 325 MG TABLET 650 MG PO ×3 (05:47→21:49)
[2025-06-24] MEDS: METOCLOPRAMIDE HCL 5 MG TABLET PO ×4 (05:47→20:16)
[2025-06-24 06:52] LABS: Hematocrit 34.9 % (37.0-47.0); Hemoglobin 10.5 g/dL (12.0-15.0); Mean Corpuscular HGB Conc 30.1 g/dl (32-36); Mean Corpuscular Hemoglobin 30.4 pg (26-34); Mean Corpuscular Volume 101.2 fl (80-100); Platelet Count Result 170 k/mm3 (150-375); Red Blood Count 3.45 M/mm3 (4.2-5.4); White Blood Count 5.7 K/mm3 (4.5-10.0)
[2025-06-24 07:04] LABS: INR 3.1; Prothrombin Time 30.5 Seconds (11.1-14.7)
[2025-06-24 07:38] LABS: Anion Gap 4 mmol/L (4-12); Blood Urea Nitrogen 13 mg/dL (7-17); Calcium 8.1 mg/dL (8.4-10.2); Carbon Dioxide 29 mmol/L (22-30); Chloride 102 mmol/L (98-107); Estimated CRCL calculation 32 ml/min; Estimated Glomerular Filt Rate 46; Glucose 89 mg/dL (65-110); Potassium 3.6 mmol/L (3.4-5.0); Sodium 135 mmol/L (137-145)
[2025-06-24 09:26] VITALS: PULSE 61
[2025-06-24] MEDS: AMIODARONE HCL 200 MG TABLET PO (09:26)
[2025-06-24] MEDS: ROSUVASTATIN 20 MG TABLET 40 MG PO (09:26)
[2025-06-24] MEDS: SPIRONOLACTONE 25 MG TABLET PO (09:26)
[2025-06-24] MEDS: clonazePAM (*CRX) 0.5 MG TABLET PO ×3 (09:26→16:38)
[2025-06-24] MEDS: LORATADINE 10 MG TABLET PO (09:26)
[2025-06-24] MEDS: VENLAFAXINE HCL XR 37.5 MG CAP PO (09:26)
[2025-06-24 09:27] VITALS: PULSE 61
--- NOTE | 2025-06-24 11:25 | PM.IMPN ---
Progress Note: A&P Assessment and Plan (1) UTI (urinary tract infection): Qualifiers: Hematuria presence: without hematuria Urinary tract infection type: acute cystitis Qualified Code(s): N30.00 - Acute cystitis without hematuria Code(s): N39.0 - Urinary tract infection, site not specified Status: Acute Assessment and Plan: Patient denies symptoms prior to arrival. Abdomen pelvic CT revealed severe cystitis. UA with signs of infection wbc's greater than 100, leukocyte esterase 3+, positive nitrate -Continue CEfepime and follow up urine and blood cultures monitor (2) CHF (congestive heart failure): Qualifiers: Heart failure chronicity: acute on chronic Heart failure type: unspecified Qualified Code(s): I50.9 - Heart failure, unspecified Code(s): I50.9 - Heart failure, unspecified Status: Acute Assessment and Plan: BNP 2590 on admit. Chest x-ray with mild CHF - BNP - most recent echo 04/22/2025 with EF 45-50 - monitor I&Os and daily weights Restart home meds - trend renal function Plan Diet: Heart healthy diet DVT prophylaxis: Warfarin Code status: Full Subjective Date/time seen: 06/24/25 11:25 Interval history: No acute events overnight. Pending urine culture Review of Systems Review of Systems: All systems reviewed & are unremarkable except as noted in HPI and below Exam Narrative: GENERAL: Chronically ill-appearing, in no acute distress. HEAD: Normocephalic, atraumatic. EYES: PERRLA. Conjunctivae clear. NOSE: Normal no drainage. THROAT: Pharynx clear, no exudate. NECK: Trachea midline. No adenopathy, no masses. RESPIRATORY: Airway patent, respirations nonlabored. CTA. CARDIOVASCULAR: Regular rate and rhythm . BREASTS: Defer GASTROINTESTINAL: Abdomen is soft and nontender. No organomegaly. Bowel sounds normal in all quadrants. GENITOURINARY: Defer MUSCULOSKELETAL: Moves all extremities. No gross deformities. No calf tenderness. SKIN: Warm, dry, normal color. NEURO: A&O X4. Speech clear. Evidence of TD with lip smacking and tongue movements PSYCHIATRIC: Normal interaction Objective Data Vital Signs Vital Signs: Vital Signs - 24 hr 06/23/25 12:45 06/23/25 13:54 06/23/25 20:33 Temperature 98.1 F 98.3 F Pulse Rate 60 59 L Respiratory Rate 18 18 Blood Pressure 121/60 133/60 Pulse Oximetry 96 95 Oxygen Delivery Room Air 06/24/25 05:09 06/24/25 07:30 06/24/25 09:26 Temperature 98.6 F Pulse Rate 59 L 61 Respiratory Rate 16 Blood Pressure 109/49 L Pulse Oximetry 92 Oxygen Delivery Room Air 06/24/25 09:27 06/24/25 10:16 Temperature Pulse Rate 61 Respiratory Rate Blood Pressure Pulse Oximetry Oxygen Delivery Room Air Intake/Output Intake/Output: Intake & Output 06/21/25 06/22/25 06/23/25 06/24/25 23:59 23:59 23:59 23:59 Intake Total 1610 300 Output Total 1250 200 Balance 360 100 Meds/Results Medications: Active Medications Generic Name Dose Route Start Last Admin Trade Name Freq PRN Reason Stop Dose Admin Acetaminophen 650 mg 06/23/25 02:15 06/24/25 05:47 Acetaminophen 325 Mg Tablet PO 650 mg Q6H PRN Administration Mild Pain (1-3) or Fever Amiodarone HCl 200 mg 06/24/25 09:00 06/24/25 09:26 Amiodarone Hcl 200 Mg Tablet PO 200 mg DAILY STAN Administration Artificial Tears 1 drop 06/23/25 16:28 06/23/25 17:07 Artificial Tears Ophth Soln 15 Ml Bottle EACH EYE 1 drop QID PRN Administration Dry Eye(s) Carvedilol 25 mg 06/23/25 09:00 06/24/25 09:27 Carvedilol 12.5 Mg Tablet PO 25 mg DAILY TSAN Administration Clonazepam 0.5 mg 06/23/25 17:00 06/24/25 09:26 Clonazepam (*Crx) 0.5 Mg Tablet PO 0.5 mg TID STAN Administration Donepezil HCl 10 mg 06/23/25 21:00 06/23/25 20:25 Donepezil Hcl 10 Mg Tablet PO 10 mg HS STAN Administration Furosemide 40 mg 06/25/25 09:00 Furosemide 40 Mg Tablet PO MoWeFr@0900 STAN Hydralazine HCl 10 mg 06/23/25 09:00 06/24/25 09:26 Hydralazine 10 Mg Tablet PO 10 mg BID STAN Administration Cefepime HCl 2 gm/ Sodium 50 mls @ 100 mls/hr 10/20/25 18:00 06/24/25 09:41 Chloride IVPB Infused Q12H STAN Infusion Levothyroxine Sodium 150 mcg 06/23/25 06:30 06/24/25 05:47 Levothyroxine Sodium 150 Mcg Tablet PO 150 mcg DAILY@0630 STAN Administration Loratadine 10 mg 06/23/25 09:00 06/24/25 09:26 Loratadine 10 Mg Tablet PO 10 mg QAM STAN Administration Metoclopramide HCl 5 mg 06/22/25 21:00 06/24/25 05:47 Metoclopramide Hcl 5 Mg Tablet PO 5 mg ACHS STAN Administration Ondansetron HCl 8 mg 06/22/25 20:51 Ondansetron Hcl Odt 4 Mg Tablet PO Q12H PRN Nausea And Vomiting Rosuvastatin Calcium 40 mg 06/23/25 09:00 06/24/25 09:26 Rosuvastatin 20 Mg Tablet PO 40 mg DAILY STAN Administration Spironolactone 25 mg 06/23/25 09:00 06/24/25 09:26 Spironolactone 25 Mg Tablet PO 25 mg DAILY STAN Administration Trazodone HCl 150 mg 06/22/25 21:00 06/23/25 20:25 Trazodone Hcl 50 Mg Tablet PO 150 mg HS STAN Administration Venlafaxine HCl 37.5 mg 06/23/25 09:00 06/24/25 09:26 Venlafaxine Hcl Xr 37.5 Mg Cap PO 37.5 mg DAILY STAN Administration Warfarin Sodium 2 mg 06/23/25 17:00 06/23/25 16:59 Warfarin (*Pbkc) 2 Mg Tablet PO 2 mg DAILY@1700 STAN Administration Radiology Results: ITS Impressions Chest X-Ray 06/22/25 14:46 Impression: Mild CHF Head CT 06/22/25 15:31 Impression: 1.No acute intracranial abnormality. Abdomen/Pelvis CT 06/22/25 15:38 IMPRESSION: 1. Severe cystitis 2. Severe atrophy of the pancreas, underlying pancreatic lesion is not excluded. Outpatient contrast-enhanced MRI is recommended Labs Labs: Laboratory Results - last 24 hr 06/24/25 06:09 WBC 5.7 RBC 3.45 L Hgb 10.5 L Hct 34.9 L MCV 101.2 H MCH 30.4 MCHC 30.1 L RDW 14.6 H Plt Count 170 MPV 10.4 PT 30.5 H INR 3.1 Sodium 135 L Potassium 3.6 Chloride 102 Carbon Dioxide 29 Anion Gap 4 BUN 13 D Creatinine 1.14 H Estim Creat Clear Calc 32 Estimated GFR 46 L Glucose 89 Calcium 8.1 L Quality VTE Prophylaxis VTE prophylaxis: pharmacologic ordered Hospitalist MIPS Advance Care Plan I have confirmed that the patient's Advanced Care Plan is present, code status is documented, or surrogate decision maker is listed in patient medical record.: Yes Medication Reconciliation I have utilized all available resources to obtain, update and review the patients current medications (includes all prescriptions, OTC, herbals, cannabis, and nutritional supplements).: Yes
[2025-06-24 14:00] VITALS: BP 106/58; PULSE 60; RESP 18; TEMP 36.4; O2SAT 94
[2025-06-24] MEDS: ARTIFICIAL TEARS OPHTH SOLN 15 ML BOTTLE 1 DROP EACH EYE ×2 (14:38→21:51)
[2025-06-24] MEDS: WARFARIN (*PBKC) 2 MG TABLET PO (16:38)
[2025-06-24 16:43] VITALS: BP 130/63; PULSE 59; RESP 20; TEMP 36.6; O2SAT 96
[2025-06-24] MEDS: DONEPEZIL HCL 10 MG TABLET PO (20:16)
[2025-06-24 20:43] VITALS: BP 121/57; PULSE 59; RESP 14; TEMP 36.6; O2SAT 94
[2025-06-25 04:57] VITALS: BP 140/56; PULSE 60; RESP 14; TEMP 36.8; O2SAT 96
[2025-06-25 06:21] LABS: Hematocrit 37.0 % (37.0-47.0); Hemoglobin 11.0 g/dL (12.0-15.0); Mean Corpuscular HGB Conc 29.7 g/dl (32-36); Mean Corpuscular Hemoglobin 30.7 pg (26-34); Mean Corpuscular Volume 103.4 fl (80-100); Platelet Count Result 171 k/mm3 (150-375); Red Blood Count 3.58 M/mm3 (4.2-5.4); White Blood Count 6.0 K/mm3 (4.5-10.0)
[2025-06-25 06:33] LABS: INR 3.0; Prothrombin Time 30.3 Seconds (11.1-14.7)
[2025-06-25] MEDS: CEFEPIME 2 GM in SODIUM CHLORIDE 0.9% IV 50 ML 100 ML IVPB ×2 (06:37→17:13)
[2025-06-25] MEDS: METOCLOPRAMIDE HCL 5 MG TABLET PO ×4 (06:38→21:00)
[2025-06-25] MEDS: LEVOTHYROXINE SODIUM 150 MCG TABLET PO (06:38)
[2025-06-25 06:51] LABS: Alanine Aminotransferase 20 U/L (6-35); Albumin Level 3.1 g/dL (3.5-5.1); Alkaline Phosphatase 49 U/L (38-126); Anion Gap 6 mmol/L (4-12); Aspartate Amino Transferase 33 U/L (14-36); Bilirubin,Total 0.3 mg/dL (0.2-1.3); Blood Urea Nitrogen 16 mg/dL (7-17); Calcium 8.4 mg/dL (8.4-10.2); Carbon Dioxide 27 mmol/L (22-30); Chloride 102 mmol/L (98-107); Estimated CRCL calculation 34 ml/min; Estimated Glomerular Filt Rate 50; Glucose 86 mg/dL (65-110); Potassium 3.8 mmol/L (3.4-5.0); Sodium 135 mmol/L (137-145); Total Protein 6.1 g/dL (6.3-8.2)
[2025-06-25 08:35] VITALS: PULSE 60
[2025-06-25] MEDS: AMIODARONE HCL 200 MG TABLET PO (08:35)
[2025-06-25] MEDS: VENLAFAXINE HCL XR 37.5 MG CAP PO (08:35)
[2025-06-25] MEDS: LORATADINE 10 MG TABLET PO (08:35)
[2025-06-25] MEDS: SPIRONOLACTONE 25 MG TABLET PO (08:35)
[2025-06-25] MEDS: ROSUVASTATIN 20 MG TABLET 40 MG PO (08:35)
[2025-06-25] MEDS: clonazePAM (*CRX) 0.5 MG TABLET PO ×3 (08:36→17:12)
[2025-06-25] MEDS: FUROSEMIDE 40 MG TABLET PO (08:38)
[2025-06-25 10:34] LABS: IFOB Positive Control Positive; Immunochemical Fecal Occult Bl Positive (N)
[2025-06-25] MEDS: BELLADONNA ALK/PHENOB ELIX 10 ML, MAG HYDROX/ALUMINUM HYD/SIMETH 30 ML, LIDOCAINE 2% VI... PO (11:53)
[2025-06-25 14:00] VITALS: BP 103/47; PULSE 61; RESP 14; TEMP 36.7; O2SAT 96
--- NOTE | 2025-06-25 15:57 | PM.IMPN ---
Progress Note: A&P Assessment and Plan (1) UTI (urinary tract infection): Qualifiers: Urinary tract infection type: acute cystitis Hematuria presence: without hematuria Qualified Code(s): N30.00 - Acute cystitis without hematuria Code(s): N39.0 - Urinary tract infection, site not specified Status: Acute Assessment and Plan: Patient denies symptoms prior to arrival. Abdomen pelvic CT revealed severe cystitis. UA with signs of infection wbc's greater than 100, leukocyte esterase 3+, positive nitrate -Continue CEfepime and follow up urine and blood cultures monitor (2) CHF (congestive heart failure): Qualifiers: Heart failure chronicity: acute on chronic Heart failure type: unspecified Qualified Code(s): I50.9 - Heart failure, unspecified Code(s): I50.9 - Heart failure, unspecified Status: Acute Assessment and Plan: BNP 2590 on admit. Chest x-ray with mild CHF - BNP - most recent echo 04/22/2025 with EF 45-50 - monitor I&Os and daily weights Restart home meds - trend renal function (3) Melena: Code(s): K92.1 - Melena Status: Acute Assessment and Plan: Hgb stable FOBT positive As per patient:Colonoscopy 6 years ago which showed evidence of hemorrhoids If patient has more bloody movement or significant drop in HgB will officially consult GI. Plan Diet: Heart healthy diet DVT prophylaxis: Warfarin Code status: Full Subjective Date/time seen: 06/25/25 15:57 Interval history: The nursing team reports an episode of bloody bowel movement. FOBT was positive. Patient underwent a colonoscopy 6 years ago, and they reported she has evidence of hemorrhoids, but she denies having any bloody bowel movements in past 6 years.Hemoglobulin stable and no evidence of palpitations or dizziness.Discussed with GI on a side note and no acute intervention needed at this time. If patient has more bloody movement or significant drop in HgB will officially consult GI. Review of Systems Review of Systems: All systems reviewed & are unremarkable except as noted in HPI and below Exam Narrative: GENERAL: Chronically ill-appearing, in no acute distress. HEAD: Normocephalic, atraumatic. EYES: PERRLA. Conjunctivae clear. NOSE: Normal no drainage. THROAT: Pharynx clear, no exudate. NECK: Trachea midline. No adenopathy, no masses. RESPIRATORY: Airway patent, respirations nonlabored. CTA. CARDIOVASCULAR: Regular rate and rhythm . BREASTS: Defer GASTROINTESTINAL: Abdomen is soft and nontender. No organomegaly. Bowel sounds normal in all quadrants. GENITOURINARY: Defer MUSCULOSKELETAL: Moves all extremities. No gross deformities. No calf tenderness. SKIN: Warm, dry, normal color. NEURO: A&O X4. Speech clear. Evidence of TD with lip smacking and tongue movements PSYCHIATRIC: Normal interaction Objective Data Vital Signs Vital Signs: Vital Signs - 24 hr 06/24/25 16:43 06/24/25 20:16 06/24/25 20:43 Temperature 97.9 F 97.9 F Pulse Rate 59 L 59 L Respiratory Rate 20 14 Blood Pressure 130/63 121/57 L Pulse Oximetry 96 94 Oxygen Delivery Room Air 06/25/25 04:57 06/25/25 08:00 06/25/25 08:35 Temperature 98.2 F Pulse Rate 60 60 Respiratory Rate 14 Blood Pressure 140/56 L Pulse Oximetry 96 Oxygen Delivery Room Air 06/25/25 08:35 06/25/25 14:00 Temperature 98.1 F Pulse Rate 60 61 Respiratory Rate 14 Blood Pressure 103/47 L Pulse Oximetry 96 Oxygen Delivery Intake/Output Intake/Output: Intake & Output 06/22/25 06/23/25 06/24/25 06/25/25 23:59 23:59 23:59 23:59 Intake Total 1610 1870 120 Output Total 1250 500 600 Balance 360 1370 -480 Meds/Results Medications: Active Medications Generic Name Dose Route Start Last Admin Trade Name Freq PRN Reason Stop Dose Admin Acetaminophen 650 mg 06/23/25 02:15 06/24/25 21:49 Acetaminophen 325 Mg Tablet PO 650 mg Q6H PRN Administration Mild Pain (1-3) or Fever Amiodarone HCl 200 mg 06/24/25 09:00 06/25/25 08:35 Amiodarone Hcl 200 Mg Tablet PO 200 mg DAILY STAN Administration Artificial Tears 1 drop 06/23/25 16:28 06/24/25 21:51 Artificial Tears Ophth Soln 15 Ml Bottle EACH EYE 1 drop QID PRN Administration Dry Eye(s) Carvedilol 25 mg 06/23/25 09:00 06/25/25 08:35 Carvedilol 12.5 Mg Tablet PO 25 mg DAILY STAN Administration Clonazepam 0.5 mg 06/23/25 17:00 06/25/25 12:01 Clonazepam (*Crx) 0.5 Mg Tablet PO 0.5 mg TID STAN Administration Donepezil HCl 10 mg 06/23/25 21:00 06/24/25 20:16 Donepezil Hcl 10 Mg Tablet PO 10 mg HS STAN Administration Furosemide 40 mg 06/25/25 09:00 06/25/25 08:38 Furosemide 40 Mg Tablet PO 40 mg MoWeFr@0900 STAN Administration Hydralazine HCl 10 mg 06/23/25 09:00 06/25/25 08:36 Hydralazine 10 Mg Tablet PO 10 mg BID STAN Administration Cefepime HCl 2 gm/ Sodium 50 mls @ 100 mls/hr 06/23/25 18:00 06/25/25 06:37 Chloride IVPB 100 mls/hr Q12H STAN Administration Levothyroxine Sodium 150 mcg 06/23/25 06:30 06/25/25 06:38 Levothyroxine Sodium 150 Mcg Tablet PO 150 mcg DAILY@0630 STAN Administration Loratadine 10 mg 06/23/25 09:00 06/25/25 08:35 Loratadine 10 Mg Tablet PO 10 mg QAM STAN Administration Metoclopramide HCl 5 mg 06/22/25 21:00 06/25/25 15:49 Metoclopramide Hcl 5 Mg Tablet PO 5 mg ACHS STAN Administration Ondansetron HCl 8 mg 06/22/25 20:51 Ondansetron Hcl Odt 4 Mg Tablet PO Q12H PRN Nausea And Vomiting Rosuvastatin Calcium 40 mg 06/23/25 09:00 06/25/25 08:35 Rosuvastatin 20 Mg Tablet PO 40 mg DAILY STAN Administration Spironolactone 25 mg 06/23/25 09:00 06/25/25 08:35 Spironolactone 25 Mg Tablet PO 25 mg DAILY STAN Administration Trazodone HCl 150 mg 06/22/25 21:00 06/24/25 20:17 Trazodone Hcl 50 Mg Tablet PO 150 mg HS STAN Administration Venlafaxine HCl 37.5 mg 06/23/25 09:00 06/25/25 08:35 Venlafaxine Hcl Xr 37.5 Mg Cap PO 37.5 mg DAILY STAN Administration Warfarin Sodium 2 mg 06/23/25 17:00 06/24/25 16:38 Warfarin (*Pbkc) 2 Mg Tablet PO 2 mg DAILY@1700 STAN Administration Radiology Results: ITS Impressions Chest X-Ray 06/22/25 14:46 Impression: Mild CHF Head CT 06/22/25 15:31 Impression: 1.No acute intracranial abnormality. Abdomen/Pelvis CT 06/22/25 15:38 IMPRESSION: 1. Severe cystitis 2. Severe atrophy of the pancreas, underlying pancreatic lesion is not excluded. Outpatient contrast-enhanced MRI is recommended Labs Labs: Laboratory Results - last 24 hr 06/25/25 06/25/25 06:15 10:12 WBC 6.0 RBC 3.58 L Hgb 11.0 L Hct 37.0 MCV 103.4 H MCH 30.7 MCHC 29.7 L RDW 14.6 H Plt Count 171 MPV 9.8 PT 30.3 H INR 3.0 Sodium 135 L Potassium 3.8 Chloride 102 Carbon Dioxide 27 Anion Gap 6 BUN 16 Creatinine 1.06 H Estim Creat Clear Calc 34 Estimated GFR 50 L Glucose 86 Calcium 8.4 Total Bilirubin 0.3 AST 33 ALT 20 Alkaline Phosphatase 49 Total Protein 6.1 L Albumin 3.1 L Stl Occult Blood (IFOB) Positive H Quality VTE Prophylaxis VTE prophylaxis: pharmacologic ordered Hospitalist [facility] Advance Care Plan I have confirmed that the patient's Advanced Care Plan is present, code status is documented, or surrogate decision maker is listed in patient medical record.: Yes Medication Reconciliation I have utilized all available resources to obtain, update and review the patients current medications (includes all prescriptions, OTC, herbals, cannabis, and nutritional supplements).: Yes
[2025-06-25] MEDS: WARFARIN (*PBKC) 2 MG TABLET PO (17:12)
[2025-06-25] MEDS: DONEPEZIL HCL 10 MG TABLET PO (21:00)
[2025-06-25 21:40] VITALS: BP 117/47; PULSE 59; RESP 14; TEMP 36.4; O2SAT 93
[2025-06-25] MEDS: ACETAMINOPHEN 325 MG TABLET 650 MG PO (22:12)
[2025-06-26 04:30] VITALS: BP 117/48; PULSE 56; RESP 14; TEMP 36.3; O2SAT 94
[2025-06-26] MEDS: CEFEPIME 2 GM in SODIUM CHLORIDE 0.9% IV 50 ML 100 ML IVPB (05:39)
[2025-06-26] MEDS: LEVOTHYROXINE SODIUM 150 MCG TABLET PO (05:49)
[2025-06-26] MEDS: METOCLOPRAMIDE HCL 5 MG TABLET PO ×4 (05:49→21:26)
[2025-06-26 05:58] LABS: Hematocrit 34.1 % (37.0-47.0); Hemoglobin 10.3 g/dL (12.0-15.0); Mean Corpuscular HGB Conc 30.2 g/dl (32-36); Mean Corpuscular Hemoglobin 30.6 pg (26-34); Mean Corpuscular Volume 101.2 fl (80-100); Platelet Count Result 165 k/mm3 (150-375); Red Blood Count 3.37 M/mm3 (4.2-5.4); White Blood Count 4.9 K/mm3 (4.5-10.0)
[2025-06-26 06:16] LABS: Alanine Aminotransferase 23 U/L (6-35); Albumin Level 3.2 g/dL (3.5-5.1); Alkaline Phosphatase 45 U/L (38-126); Anion Gap 4 mmol/L (4-12); Aspartate Amino Transferase 38 U/L (14-36); Bilirubin,Total 0.3 mg/dL (0.2-1.3); Blood Urea Nitrogen 19 mg/dL (7-17); Calcium 8.4 mg/dL (8.4-10.2); Carbon Dioxide 28 mmol/L (22-30); Chloride 101 mmol/L (98-107); Estimated CRCL calculation 32 ml/min; Estimated Glomerular Filt Rate 46; Glucose 81 mg/dL (65-110); Potassium 3.5 mmol/L (3.4-5.0); Sodium 133 mmol/L (137-145); Total Protein 6.1 g/dL (6.3-8.2)
[2025-06-26 06:36] LABS: INR 3.2; Prothrombin Time 32.0 Seconds (11.1-14.7)
[2025-06-26 09:14] VITALS: PULSE 64
[2025-06-26] MEDS: clonazePAM (*CRX) 0.5 MG TABLET PO ×3 (09:14→16:05)
[2025-06-26] MEDS: AMIODARONE HCL 200 MG TABLET PO (09:14)
[2025-06-26 09:16] VITALS: PULSE 64
[2025-06-26] MEDS: VENLAFAXINE HCL XR 37.5 MG CAP PO (09:16)
[2025-06-26] MEDS: LORATADINE 10 MG TABLET PO (09:16)
[2025-06-26] MEDS: ROSUVASTATIN 20 MG TABLET 40 MG PO (09:16)
[2025-06-26] MEDS: SPIRONOLACTONE 25 MG TABLET PO (09:16)
--- NOTE | 2025-06-26 10:51 | PCNFU ---
Nutrition Follow-Up Complete: suboptimal po intake related to appetite and chewing issues as evidenced by pt report and noted no teeth PO intake 50% or greater - Progressing with goal. Continue current goal Goal: Pt current nutrition is Heart healthy, soft & bite size L6. Ensure Plus HP BID (350 kcal, 20 g protein) Nutrition recommendation: No new recommendations. Continue current nutrition care plan and orders Last recorded weight is 69.5 kg. Bowel Motility: +3 BMs 06/25 Labs Reviewed: Hgb 10.3, Hct 34.1, Alb 3.2, Na 133, BUN 19, Cre 1.15 Meds Noted: Reglan, spironolactone, coumadin, Lasix Skin: No skin issues Additional Notes: Appetite and intakes have been improving, 50-100%. Drinking some Ensure. Continue current orders. AGree with orders Monitor intake, wt, labs. Follow up in 3 days.
[2025-06-26 14:00] VITALS: BP 112/55; PULSE 66; RESP 18; TEMP 36.4; O2SAT 94
[2025-06-26] MEDS: ACETAMINOPHEN 325 MG TABLET 650 MG PO (16:04)
[2025-06-26] MEDS: WARFARIN (*PBKC) 2 MG TABLET PO (16:05)
--- NOTE | 2025-06-26 17:16 | PM.IMPN ---
Progress Note: A&P Assessment and Plan (1) UTI (urinary tract infection): Qualifiers: Urinary tract infection type: acute cystitis Hematuria presence: without hematuria Qualified Code(s): N30.00 - Acute cystitis without hematuria Code(s): N39.0 - Urinary tract infection, site not specified Status: Acute Assessment and Plan: Patient denies symptoms prior to arrival. Abdomen pelvic CT revealed severe cystitis. UA with signs of infection wbc's greater than 100, leukocyte esterase 3+, positive nitrate -discontinues cefepime -started on Augmentin (2) CHF (congestive heart failure): Qualifiers: Heart failure chronicity: acute on chronic Heart failure type: unspecified Qualified Code(s): I50.9 - Heart failure, unspecified Code(s): I50.9 - Heart failure, unspecified Status: Acute Assessment and Plan: BNP 2590 on admit. Chest x-ray with mild CHF - BNP - most recent echo 04/22/2025 with EF 45-50 - monitor I&Os and daily weights Restart home meds - trend renal function (3) Melena: Code(s): K92.1 - Melena Status: Acute Assessment and Plan: Hgb stable FOBT positive As per patient:Colonoscopy 6 years ago which showed evidence of hemorrhoids If patient has more bloody movement or significant drop in HgB will officially consult GI. Plan Diet: Heart healthy diet DVT prophylaxis: Warfarin Code status: Full Subjective Date/time seen: 06/26/25 17:16 Interval history: No acute events overnight. Urine culture reviewed. Started on Augmentin. Hemoglobin stable. Possible discharge tomorrow Review of Systems Review of Systems: All systems reviewed & are unremarkable except as noted in HPI and below Exam Narrative: GENERAL: Chronically ill-appearing, in no acute distress. HEAD: Normocephalic, atraumatic. EYES: PERRLA. Conjunctivae clear. NOSE: Normal no drainage. THROAT: Pharynx clear, no exudate. NECK: Trachea midline. No adenopathy, no masses. RESPIRATORY: Airway patent, respirations nonlabored. CTA. CARDIOVASCULAR: Regular rate and rhythm . BREASTS: Defer GASTROINTESTINAL: Abdomen is soft and nontender. No organomegaly. Bowel sounds normal in all quadrants. GENITOURINARY: Defer MUSCULOSKELETAL: Moves all extremities. No gross deformities. No calf tenderness. SKIN: Warm, dry, normal color. NEURO: A&O X4. Speech clear. Evidence of TD with lip smacking and tongue movements PSYCHIATRIC: Normal interaction Objective Data Vital Signs Vital Signs: Vital Signs - 24 hr 06/25/25 21:00 06/25/25 21:40 06/26/25 04:30 Temperature 97.6 F 97.4 F L Pulse Rate 59 L 56 L Respiratory Rate 14 14 Blood Pressure 117/47 L 117/48 L Pulse Oximetry 93 94 Oxygen Delivery Room Air 06/26/25 08:00 06/26/25 09:14 06/26/25 09:16 Temperature Pulse Rate 64 64 Respiratory Rate Blood Pressure Pulse Oximetry Oxygen Delivery Room Air Intake/Output Intake/Output: Intake & Output 06/23/25 06/24/25 06/25/25 06/26/25 23:59 23:59 23:59 23:59 Intake Total 1610 1870 460 580 Output Total 1250 500 600 0 Balance 360 1370 -140 580 Meds/Results Medications: Active Medications Generic Name Dose Route Start Last Admin Trade Name Freq PRN Reason Stop Dose Admin Acetaminophen 650 mg 06/23/25 02:15 06/26/25 16:04 Acetaminophen 325 Mg Tablet PO 650 mg Q6H PRN Administration Mild Pain (1-3) or Fever Amiodarone HCl 200 mg 06/24/25 09:00 06/26/25 09:14 Amiodarone Hcl 200 Mg Tablet PO 200 mg DAILY STAN Administration Amoxicillin/Clavulanate Potassium 1 tablet 06/26/25 13:00 06/26/25 12:05 Amoxicillin/Clavulanate K 875-125 Mg Tab PO 06/30/25 12:59 1 tablet Q12HR STAN Administration Artificial Tears 1 drop 06/23/25 16:28 06/24/25 21:51 Artificial Tears Ophth Soln 15 Ml Bottle EACH EYE 1 drop QID PRN Administration Dry Eye(s) Carvedilol 25 mg 06/23/25 09:00 06/26/25 09:16 Carvedilol 12.5 Mg Tablet PO 25 mg DAILY STAN Administration Clonazepam 0.5 mg 06/23/25 17:00 06/26/25 16:05 Clonazepam (*Crx) 0.5 Mg Tablet PO 0.5 mg TID STAN Administration Donepezil HCl 10 mg 06/23/25 21:00 06/25/25 21:00 Donepezil Hcl 10 Mg Tablet PO 10 mg HS STAN Administration Furosemide 40 mg 06/25/25 09:00 06/25/25 08:38 Furosemide 40 Mg Tablet PO 40 mg MoWeFr@0900 STAN Administration Hydralazine HCl 10 mg 06/23/25 09:00 06/26/25 16:05 Hydralazine 10 Mg Tablet PO 10 mg BID STAN Administration Levothyroxine Sodium 150 mcg 06/23/25 06:30 06/26/25 05:49 Levothyroxine Sodium 150 Mcg Tablet PO 150 mcg DAILY@0630 STAN Administration Loratadine 10 mg 06/23/25 09:00 06/26/25 09:16 Loratadine 10 Mg Tablet PO 10 mg QAM STAN Administration Metoclopramide HCl 5 mg 06/22/25 21:00 06/26/25 16:05 Metoclopramide Hcl 5 Mg Tablet PO 5 mg ACHS STAN Administration Ondansetron HCl 8 mg 06/22/25 20:51 Ondansetron Hcl Odt 4 Mg Tablet PO Q12H PRN Nausea And Vomiting Rosuvastatin Calcium 40 mg 06/23/25 09:00 06/26/25 09:16 Rosuvastatin 20 Mg Tablet PO 40 mg DAILY STAN Administration Spironolactone 25 mg 06/23/25 09:00 06/26/25 09:16 Spironolactone 25 Mg Tablet PO 25 mg DAILY STAN Administration Trazodone HCl 150 mg 06/22/25 21:00 06/25/25 21:03 Trazodone Hcl 50 Mg Tablet PO 150 mg HS STAN Administration Venlafaxine HCl 37.5 mg 06/23/25 09:00 06/26/25 09:16 Venlafaxine Hcl Xr 37.5 Mg Cap PO 37.5 mg DAILY STAN Administration Warfarin Sodium 2 mg 06/23/25 17:00 06/26/25 16:05 Warfarin (*Pbkc) 2 Mg Tablet PO 2 mg DAILY@1700 STAN Administration Radiology Results: ITS Impressions Chest X-Ray 06/22/25 14:46 Impression: Mild CHF Head CT 06/22/25 15:31 Impression: 1.No acute intracranial abnormality. Abdomen/Pelvis CT 06/22/25 15:38 IMPRESSION: 1. Severe cystitis 2. Severe atrophy of the pancreas, underlying pancreatic lesion is not excluded. Outpatient contrast-enhanced MRI is recommended Labs Labs: Laboratory Results - last 24 hr 06/26/25 05:48 WBC 4.9 RBC 3.37 L Hgb 10.3 L Hct 34.1 L MCV 101.2 H MCH 30.6 MCHC 30.2 L RDW 14.8 H Plt Count 165 MPV 9.9 PT 32.0 H INR 3.2 Sodium 133 L Potassium 3.5 Chloride 101 Carbon Dioxide 28 Anion Gap 4 BUN 19 H Creatinine 1.15 H Estim Creat Clear Calc 32 Estimated GFR 46 L Glucose 81 Calcium 8.4 Total Bilirubin 0.3 AST 38 H ALT 23 Alkaline Phosphatase 45 Total Protein 6.1 L Albumin 3.2 L Quality VTE Prophylaxis VTE prophylaxis: pharmacologic ordered Hospitalist [facility] Advance Care Plan I have confirmed that the patient's Advanced Care Plan is present, code status is documented, or surrogate decision maker is listed in patient medical record.: Yes Medication Reconciliation I have utilized all available resources to obtain, update and review the patients current medications (includes all prescriptions, OTC, herbals, cannabis, and nutritional supplements).: Yes
[2025-06-26 20:00] VITALS: PULSE 60; RESP 14; O2SAT 98
[2025-06-26] MEDS: DONEPEZIL HCL 10 MG TABLET PO (21:25)
[2025-06-26 21:42] VITALS: BP 144/57; PULSE 60; RESP 14; TEMP 36.3; O2SAT 98
[2025-06-27 06:00] VITALS: BP 130/49; PULSE 60; RESP 14; TEMP 36.8; O2SAT 93
[2025-06-27] MEDS: METOCLOPRAMIDE HCL 5 MG TABLET PO ×2 (06:26→12:28)
[2025-06-27] MEDS: LEVOTHYROXINE SODIUM 150 MCG TABLET PO (06:26)
[2025-06-27 06:40] LABS: Hematocrit 34.8 % (37.0-47.0); Hemoglobin 10.6 g/dL (12.0-15.0); Mean Corpuscular HGB Conc 30.5 g/dl (32-36); Mean Corpuscular Hemoglobin 30.4 pg (26-34); Mean Corpuscular Volume 99.7 fl (80-100); Platelet Count Result 177 k/mm3 (150-375); Red Blood Count 3.49 M/mm3 (4.2-5.4); White Blood Count 5.3 K/mm3 (4.5-10.0)
[2025-06-27 06:56] LABS: INR 3.2; Prothrombin Time 31.8 Seconds (11.1-14.7)
[2025-06-27 07:26] LABS: Alanine Aminotransferase 25 U/L (6-35); Albumin Level 3.2 g/dL (3.5-5.1); Alkaline Phosphatase 54 U/L (38-126); Anion Gap 5 mmol/L (4-12); Aspartate Amino Transferase 42 U/L (14-36); Bilirubin,Total 0.2 mg/dL (0.2-1.3); Blood Urea Nitrogen 17 mg/dL (7-17); Calcium 8.5 mg/dL (8.4-10.2); Carbon Dioxide 29 mmol/L (22-30); Chloride 102 mmol/L (98-107); Estimated CRCL calculation 32 ml/min; Estimated Glomerular Filt Rate 46; Glucose 78 mg/dL (65-110); Potassium 3.6 mmol/L (3.4-5.0); Sodium 136 mmol/L (137-145); Total Protein 6.1 g/dL (6.3-8.2)
[2025-06-27] MEDS: ROSUVASTATIN 20 MG TABLET 40 MG PO (08:18)
[2025-06-27] MEDS: SPIRONOLACTONE 25 MG TABLET PO (08:19)
[2025-06-27] MEDS: VENLAFAXINE HCL XR 37.5 MG CAP PO (08:19)
[2025-06-27] MEDS: clonazePAM (*CRX) 0.5 MG TABLET PO ×2 (08:19→12:28)
[2025-06-27] MEDS: AMIODARONE HCL 200 MG TABLET PO (08:19)
[2025-06-27] MEDS: LORATADINE 10 MG TABLET PO (08:19)
[2025-06-27] MEDS: FUROSEMIDE 40 MG TABLET PO (08:32)
--- NOTE | 2025-06-27 08:46 | PC.NURSE ---
Patient offered to move from the bed to the chair for breakfast and morning medications. Patient refused. Reinforced education on the importance of an upright position when eating and taking pills, plus the benefits of changing positions. Patient still refused to move to chair. Patient remains in bed at this time.
--- NOTE | 2025-06-27 10:00 | PM.DS ---
DS: Admitting Diagnosis Discharge Date 06/27/2025 Admitting Diagnosis Generalized weakness and fall DS: Discharge Diagnosis Discharge Diagnosis (1) UTI (urinary tract infection): Qualifiers: Hematuria presence: without hematuria Urinary tract infection type: acute cystitis Qualified Code(s): N30.00 - Acute cystitis without hematuria Code(s): N39.0 - Urinary tract infection, site not specified Status: Acute Assessment and Plan: Patient denies symptoms prior to arrival. Abdomen pelvic CT revealed severe cystitis. UA with signs of infection wbc's greater than 100, leukocyte esterase 3+, positive nitrate -discontinues cefepime -started on Augmentin (2) CHF (congestive heart failure): Qualifiers: Heart failure chronicity: acute on chronic Heart failure type: unspecified Qualified Code(s): I50.9 - Heart failure, unspecified Code(s): I50.9 - Heart failure, unspecified Status: Acute Assessment and Plan: BNP 2590 on admit. Chest x-ray with mild CHF - BNP - most recent echo 04/22/2025 with EF 45-50 - monitor I&Os and daily weights Restart home meds - trend renal function (3) Melena: Code(s): K92.1 - Melena Status: Acute Assessment and Plan: Hgb stable FOBT positive As per patient:Colonoscopy 6 years ago which showed evidence of hemorrhoids If patient has more bloody movement or significant drop in HgB will officially consult GI. DS: Summary Hospital Course Hospital Course: 79-year-old female with a past medical history of GERD, depression, DVT, AFib on warfarin, bipolar disorder, TD, hypothyroidism, HTN, hyperlipidemia,HFrEF s/p pacemaker presented to the ED on 06/22/2025 with complaints of generalized weakness. Patient reports she was unable to get off the toilet on 06/21 which resulted in a fall. Patient does not believe she hit her head and denies loss of consciousness. Patient states her symptoms of weakness have been present for the past 2 days prior to arrival. She denies fevers, chills, chest pain. She endorses chronic nausea and diarrhea which has been worked up in the past, along with recent weight loss. Patient was admitted from 05/20/2025 to 05/30/2025 with pneumonia and dysphagia. Lab significant for anemia at baseline. Creatinine 1.7. AST 70. BNP 2590. UA with signs of infection wbc's greater than 100, leukocyte esterase 3+, positive nitrate.Chest x-ray with left pacemaker and mild CHF .Head CT with no acute intracranial abnormality Abdominal pelvic CT showed severe cystitis in severe atrophy of the pancreas. I assumed care on 06/24/2025: Patient was treated for UTI and CHF. On 06/25/2025 The nursing team reports an episode of bloody bowel movement. FOBT was positive. Patient underwent a colonoscopy 6 years ago, and they reported she has evidence of hemorrhoids, but she denies having any bloody bowel movements in past 6 years.Hemoglobulin stable and no evidence of palpitations or dizziness.Discussed with GI on a side note and no acute intervention needed at this time. If patient has more bloody movement or significant drop in HgB will officially consult GI. Currently the hemoglobin is stable. Reviewed urine culture patient started on Augmentin. Advised to follow-up reporting developer as an outpatient and PCP within a week upon discharge On the day of discharge, the patient was seen and examined. Vital signs were stable. Physical exam were stable and labs were reviewed at length. Discharge instructions, medications, and follow-up appointments were discussed with the patient at length and all day questions were answered. ER warnings were given. Status at Discharge Cognitive/behavioral status at discharge: Stable Time Spent with Patient Time attestation: Total time spent providing and/or coordinating discharge services: 45 minutes Exam Narrative: GENERAL: Chronically ill-appearing, in no acute distress. HEAD: Normocephalic, atraumatic. EYES: PERRLA. Conjunctivae clear. NOSE: Normal no drainage. THROAT: Pharynx clear, no exudate. NECK: Trachea midline. No adenopathy, no masses. RESPIRATORY: Airway patent, respirations nonlabored. CTA. CARDIOVASCULAR: Regular rate and rhythm . BREASTS: Defer GASTROINTESTINAL: Abdomen is soft and nontender. No organomegaly. Bowel sounds normal in all quadrants. GENITOURINARY: Defer MUSCULOSKELETAL: Moves all extremities. No gross deformities. No calf tenderness. SKIN: Warm, dry, normal color. NEURO: A&O X4. Speech clear. Evidence of TD with lip smacking and tongue movements PSYCHIATRIC: Normal interaction DS: Data Data Completed and Pending Labs on day of discharge: Labs from last 24 hours 06/27/25 06:17 WBC 5.3 RBC 3.49 L Hgb 10.6 L Hct 34.8 L MCV 99.7 MCH 30.4 MCHC 30.5 L RDW 14.6 H Plt Count 177 MPV 9.8 PT 31.8 H INR 3.2 Sodium 136 L Potassium 3.6 Chloride 102 Carbon Dioxide 29 Anion Gap 5 BUN 17 Creatinine 1.15 H Estim Creat Clear Calc 32 Estimated GFR 46 L Glucose 78 Calcium 8.5 Total Bilirubin 0.2 AST 42 H ALT 25 Alkaline Phosphatase 54 Total Protein 6.1 L Albumin 3.2 L Preliminary micro results at discharge 06/22/25 18:13 Blood Culture - Preliminary Blood Additional Comments Additional comments: ITS Impressions Chest X-Ray 06/22/25 14:46 Impression: Mild CHF Head CT 06/22/25 15:31 Impression: 1.No acute intracranial abnormality. Abdomen/Pelvis CT 06/22/25 15:38 IMPRESSION: 1. Severe cystitis 2. Severe atrophy of the pancreas, underlying pancreatic lesion is not excluded. Outpatient contrast-enhanced MRI is recommended Discharge Plan Discharge Attending physician on discharge: Luis Antonio Pimentel Discharging Clinician: Luis Antonio Pimentel Anticipated Discharge Date/Time: 06/27/25 10:04 Patient Disposition: Home with Home Health Service Activity: as tolerated Diet: as tolerated Discharge Instructions: Per Care Coordination. Patient to resume [facility] services for RN/PT/OT/ST [phone]. RN please fax discharge instructions to: [phone] Please follow-up with reporting developer and PCP Please complete the course of antibiotic Please check your hemoglobulin level with PCP in a week In the event of any concerning symptoms please return to ED Patient Instructions: Antibiotic Form Patient Language: Albanian Stand Alone Forms: General Discharge Information Follow-up/Referrals: Maureen,MD Masoud [Primary Care Provider, Unknown] Referral Note: Patient had an episode of dark brown stool in hospital. hemoglobulin stable at discharge. Please recheck in a week. Pierce Leon MD [Physician, Gastroenterology] Discharge Medications: New amoxicillin-pot clavulanate 875-125 mg tablet 1 tablet PO Q12H Qty: 10 0RF Continued venlafaxine [Effexor XR] 37.5 mg capsule,extended release 24hr 37.5 mg PO DAILY trazodone 150 mg tablet 150 mg PO HS carvedilol 12.5 mg tablet 25 mg PO DAILY rosuvastatin 40 mg tablet 40 mg PO DAILY levothyroxine 150 mcg Tablet 150 mcg PO DAILY amiodarone 200 mg tablet 200 mg PO DAILY clonazepam 0.5 mg tablet 0.5 mg PO TID famotidine 20 mg tablet 20 mg PO Q12H PRN (Reason: reflux) spironolactone 25 mg tablet 25 mg PO DAILY cyanocobalamin (vitamin B-12) 1,000 mcg/mL solution 1,000 mcg subcut MONTHLY donepezil 10 mg tablet 10 mg PO HS furosemide 40 mg tablet 40 mg PO 3XW Patient Comments: taking Monday, Monday, Monday Rx Instructions: -- warfarin 3 mg tablet 2 mg PO DAILY Qty: 30 0RF acetaminophen [8 Hour Pain Reliever] 650 mg tablet extended release 650 mg PO Q8H PRN (Reason: pain) loratadine 10 mg Tablet 10 mg PO QAM Qty: 30 0RF metoclopramide HCl 5 mg Tablet 5 mg PO ACHS Qty: 120 0RF hydralazine 10 mg tablet 10 mg PO BID Qty: 60 0RF ondansetron 4 mg tablet,disintegrating 8 mg PO Q12H PRN (Reason: nausea and vomiting) Qty: 30 0RF Date of admission: 06/23/25 11:47 Primary Care Provider: Maureen,Masoud Admitting Provider: Vinny Santamaria Attending physician on admission: Vinny Santamaria Condition: Stable
== END 2025-06-27 13:10 | disposition home health service (06) | DRG 690 ==
LOC: ANHED 14:25 → ANH3MEDSUR 17:14
PROVIDERS: Nurse Practitioner Adult Health; Student in an Organized Health Care Education/Training Program; Admitting Provider Internal Medicine; Emergency Provider Physician Assistant; PCP Internal Medicine; Visit Provider General Practice
DX: N39.0 Urinary tract infection, site not specified (principal); I13.0 Hypertensive heart and chronic kidney disease with heart failure and stage 1 through stage 4 chronic kidney disease, or unspecified chronic kidney disease; I42.9 Cardiomyopathy, unspecified; K92.1 Melena; I50.9 Heart failure, unspecified; N18.9 Chronic kidney disease, unspecified; K86.89 Other specified diseases of pancreas; K21.9 Gastro-esophageal reflux disease without esophagitis; F41.8 Other specified anxiety disorders; E03.9 Hypothyroidism, unspecified; E78.5 Hyperlipidemia, unspecified; I48.91 Unspecified atrial fibrillation; Z96.653 Presence of artificial knee joint, bilateral; W18.11XA Fall from or off toilet without subsequent striking against object, initial encounter; Z79.01 Long term (current) use of anticoagulants; Z86.73 Personal history of transient ischemic attack (TIA), and cerebral infarction without residual deficits; Z86.718 Personal history of other venous thrombosis and embolism; Z90.711 Acquired absence of uterus with remaining cervical stump; Z95.0 Presence of cardiac pacemaker
CPT/HCPCS: 36415; 70450; 71046; 74177; 80048; 80053; 80069; 81001; 82274; 83880; 85025; 85027; 85610; 87040; 87086; 87186; 93005; 96374; 97110; 97161; 97165; 97530; 97535; 99285; A9270; G0378; J0692; J1938; J1956; Q9967

== ENCOUNTER 2025-07-11 13:09 | Inpatient (IN) | payer MEDICARE, SELFPAY ==
--- OUTSIDE RECORDS SUMMARY | 2025-05-01 07:30 | XMS_ITS ---
Author Organization [facility] [employer] [facility] Address [facility] [address] [address] Care Team Providers Care Community Service Specialist Name Role Phone Maureen URBINA, [facility] Primary Care Provider Un available Patric De Jesus Unavailable [phone] REASON FOR VISIT 3 week follow up Social History Sex Assigned At : Social History Observation Description Sex Assigned At Female Encounters Encounter Location Date Provider Diagnosis [facility] [place] [id number] [facility] [address] [address] 05/01/2025 Patric De Jesus Plan Of Treatment Next Appt Details Provider Name:Patric De Jesus , 08/11/2025 01:30:00 PM, [address] [place] [address], [address], [address], Provider Name:Patric De Jesus , 09/10/2025 01:30:00 PM, [address], [address], Provider Name:Patric De Jesus , 10/15/2025 01:30:00 PM, [address] [place] [address], [address], Progress Notes * JAILENE CHOPRA KDOB:[birth year] (79 yo F)Acc No.[id number]:05/01/2025 Patient: JAILENE BELTRAN Provider: Beck DE JESUS MD :1945 A ge:79 Y S ex:Female Date:05/01/2025 Address:[address] [place] [address] , [facility] Pcp:Masoud Reddy MD Subjective: * Chief Complaints: [...] signature of Blanca De Jesus MD on 07/11/2025 at 01:12 PM SENIOR WEB SERVICES DEVELOPER Sign off status: Pending * Provider: Beck DE JESUS MD Date: 0 05/01/2025 Generated for [place] donnelly/Danny/Phillipitting on: 09/10/2024 01:12 PM SENIOR WEB SERVICES DEVELOPER
[2025-07-11] VITALS (15 sets, daily range): BP systolic 136–175; BP diastolic 62–120; PULSE 62–76; RESP 16–33; TEMP 36.1–36.8; O2SAT 93–98; BMI 25.2
--- NOTE | ~2025-07-11 | XR_ITS ---
EXAMINATION: XR chest 2V, 07/11/2025 14:02 METAL EXTRUSION SUPERVISOR HISTORY: DYSPNEA COMPARISON: No comparisons available. Technique: 2 views obtained. Findings: The lungs are clear, no effusion. No pneumothorax. Heart is normal size. Mediastinal and hilar contours are within normal limits. Bony thorax no acute abnormality. Left pacemaker. Impression: No acute cardiopulmonary abnormality. Reviewed, dictated and finalized at location P. L EXTRUSION SUPERVISOR Impression: No acute cardiopulmonary abnormality.
--- NOTE | 2025-07-11 13:11 | ECG_ITS ---
Test Date: 2025-07-11 13:17:43 Measurements Intervals [place] Rate: 68 P: 58 MN: 159 QRS: -17 QRSD: 158 T: 119 QT: 472 QTc: 502 Interpretive Statements ELECTRONIC VENTRICULAR PACEMAKER Compared to ECG 06/22/2025 13:47:31 No significant changes Electronically Signed On 07-11-2025 15:20:57 [employer] by Vaughn Carranza D.O
--- OUTSIDE RECORDS SUMMARY | 2025-07-11 13:12 | XMS_ITS | Encounter Summary ---
Author Organization [facility] Healthcare Address [address] [place] [address] Care Team Providers Care Pattern Mechanic Name Role Phone Lana Tovar MD Primary Care Provider + Bandar Gaffney MD Unavailable [phone] Dillan Reddy MD Primary Care Provide r Encounter Details Date Type Department Care Team (Late st Contact Info) Description 01/17/2018 Orders Only [facility] [place] [facility] Information Management [address] [place] [id number] Scanning, Provider Social History Tobacco Use Types Packs/Day Years Used Date Smoking Tobacco: Never Alcohol Use Standard Drinks/Week Comments No 0 (1 standard drink = 0.6 oz pur e alcohol) Comments Unknown Sex and Gender Information Value Date Recorded Sex Assigned at Not on file 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 [address] PCP - General Internal Medicine 11/09/23 Bandar Gaffney MD Consulting Physician Cardiology 04/13/21 documented as of this encounter
--- OUTSIDE RECORDS SUMMARY | 2025-07-11 13:12 | XMS_ITS | Encounter Summary ---
Author Organization [facility] Address [address] [facility] [address] [place] [address] Care Team Providers Care Tourist Agent Name Role Phone Lana Tovar MD Primary Care Provider + Lana Tvoar MD Primary Care Provider + Bandar Gaffney MD Unavailable [phone] Dlilan Reddy MD Primary Care Provide r Encounter Details Date Type Department Care Team (Late st Contact Info) Description 2016 Orders Only [facility] ProviderSaurabh MD [address] [place] [address] Social History Tobacco Use Types Packs/Day Years Used Date Smoking Tobacco: Never Alcohol Use Standard Drinks/Week Comments No 0 (1 standard drink = 0.6 oz pur e alcohol) Comments Unknown Sex and Gender Information Value Date Recorded Sex Assigned at Not on file 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
--- OUTSIDE RECORDS SUMMARY | 2025-07-11 13:12 | XMS_ITS | Encounter Summary ---
Author Organization [facility] Healthcare Address [address] [place] [address] Care Team Providers Care Ore Sampler Name Role Phone Lana Tovar MD Primary Care Provider + Bandar Gaffney MD Unavailable [phone] Dillan Reddy MD Primary Care Provide r Encounter Details Date Type Department Care Team (Late st Contact Info) Description 03/26/2018 [place] Only [facility] [place] Information Management [address] [place] [address] Scanning, Provider Social History Tobacco Use Types Packs/Day Years Used Date Smoking Tobacco: Never Smokeless Tobacco: Never Alcohol Use Standard Drinks/Week Comments No 0 (1 standard drink = 0.6 oz pur e alcohol) Comments Unknown Sex and Gender Information Value Date Recorded Sex Assigned at Not on file 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
--- OUTSIDE RECORDS SUMMARY | 2025-07-11 13:12 | XMS_ITS | Encounter Summary ---
Author Organization [facility] Healthcare Address [address] [place] [address] Care Team Providers Care Import/Export Analyst Name Role Phone Bandar Gaffney MD Unavailable [phone] Dillan Reddy MD Primary Care Provide r Encounter Details Date Type Department Care Team (Late st Contact Info) Description 12/04/2024 Telephone [facility] Cardiology [address] [facility] [address] [facility] [address] [place] [phone] Samy Ceja MD [address] [facility] [address] [place] [address] Social History Tobacco Use Types [...] often do you attend chur ch or yazidism services? 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
--- OUTSIDE RECORDS SUMMARY | 2025-07-11 13:12 | XMS_ITS | Clinical Summary ---
Author Organization [facility] [place] [address] Address [address] [place] [address] Care Team Providers Care Superintendent Pressure Name Role Phone Bandar Gaffney MD Unavailable [phone] Dillan Reddy MD Primary Care Provide r [...] Summary. 30 tablet 3 01/07/20 26 Active carvediloL (COREG) 25 mg tablet Take [...] a day 180 tablet 3 5 Active amiodarone (PACERONE) 200 mg tablet Take 1 tablet by mouth once daily 60 tablet 5 Active Active Problems Problem Noted Date Diagnosed Date ICD (implantable cardioverter-defibrillator) dis charge 03/23/2023 ICD (implantable cardioverte r-defibrillator), biventricular, in situ 04/13/2021 Overview (04/21/2023): Dodge DDD Lima BI-V ICD imp on 04/12/21 for DCM, [...] Encounters Date Type Department Care Team Description 07/09/2025 Telephone [facility] Cardiology [address] [place] [address] [place] [phone] Samy Ceja MD 06/12/2025 10:21 AM CDT - 06/12/2025 11:59 PM CDT Hospital Encounter [facility] [address] [place] [phone] Cerebral infarction, unspecified mechanism (HCC) Discharge Disposition: Discharge to home or self care 06/09/2025 7:15 AM CDT Ancillary Procedure [facility] Cardiology [address] [place] [address] [place] [phone] ICD (implantable cardioverter-defibrill ator), biventricular, in situ (Primary Dx); Dilated cardiomyopathy (HCC); VT (ventricular tachycardia); Paroxysmal atrial fibrillation (HCC); ICD (implantable cardioverter-defibrill ator) discharge 06/09/2025 Telephone [facility] Cardiology [address] [place] [address] [place] [phone] Samy Ceja MD 05/27/2025 Telephone [facility] Cardiology [address] [facility] Suite 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 Gender Identity Not on file Sexual Orientation [...] 05/15/2018, 11/2015 Medical Devices Implanted Type Area Charrer Device Identifier Shelf Expiration Date Model / Serial / Lot Dodge Vascular [id number] Defib Cardiac [id number] [id number] Lima Hf Df4 Is-4 Is-1 Cnctr - [id number] - [id number] Implanted:Qty: 1 on 04/12/2021 by Bandar Gaffney MD at [facility] ICD [employer] [id number] 02/01/2023 C [id number] / [id number] / [employer] 7120q/65 Durata 7fr 65cm 2 Coil Df-4 True Bipolar Active Fixation - [id number] - [id number] Implanted:Qty: 1 on 04/12/2021 by Bandar Gaffney MD at [facility] Lead [employer] [id number] 02/01/2022 7120Q/65 / [id number] / [employer] 2088tc/52 Tendril Sts 6fr 52cm Is-1 Connector Active Fixation Bipolar Soft - [id number] - [id number] Implanted:Qty: 1 on 04/12/2021 by Bandar Gaffney MD at [facility] Lead [employer] [id number] 03/03/2024 2088TC/52 / [id number] / [employer] 1458q/86 Quartet 5fr [id number] Electrode Is-4 Connector Steerable Tip - [id number] - [id number] Implanted:Qty: 1 on 04/12/2021 by Bandar Gaffney MD at [facility] Lead [employer] [id number] 02/02/2024 1458Q/86 / [id number] / Procedures Procedure Name Priority Date/Time Associated Diagnosis Comments DEVICE CHECK - REMOTE Routine 06/17/2025 11:29 AM CDT Dilated cardiomyopathy (HCC) VT (ventricular tachycardia) Paroxysmal atrial fibrillation (HCC) MRI SAFETY, TECHNICAL ASSESSMENT, 15 MIN Schedule Routine, Read Routine (OP Routine) 06/12/2025 10:22 AM CDT Cerebral infarction, unspecified mechanism (HCC) from Last 3 Months Results * DEVICE CHECK - REMOTE (06/17/2025 11:29 AM CDT) Anatomical Region Laterality Modality Other Narrative 06/23/2025 7:18 AM CDT Dodge DDD Lima BI-V ICD imp on 04/12/21 for DCM, VT, Afib. Yeimy. Nora. Jose De Jesus remote. Bluetooth [employer] Component Advisory--risk for loss of bluetooth communication, higher current consumption, and reduced device longevity. Routine DDD ICD Remote. Transmission attached. Battery status 51%, 3.8 years remaining battery life to LEANDRA. Stable Charge time and Shock impedance. Stable lead impedances, pacing, and sensing threshold. Presenting rhythm: AP/BP AP-67 %, Bi-V P-98 %. (0) AT/AF episodes noted. (1) Ventricular tachy arrhythmias detected. IEGM demonstrates 6 seconds of NSVT. Medication: Amiodarone 200 mg, carvedilol 25 mg, losartan 50 mg, Entresto 24-26 mg, warfarin Follow up: Office Pacemaker/ICD scheduled 05/27/26 [place] remote 09/09/25 Chadd Martínez RN Samy Ceja MD [facility] PROC EDURES Final Result * MRI Safety, Technical Assessment, 15 min (06/12/2025 10:22 AM CDT) Narrative RISA - 06/12/2025 10:29 AM CDT This study is to document the safety evaluation of the patient's medical implant/foreign body in advance of an MRI procedure. No imaging is acquired using this accession number. Please review the MRI Safety Note in the patient's medical record for additional details regarding the evaluation. us Dillan Reddy MD IMG MRI PROCEDURES Fi nal Result [id number] from Last 3 Months Insurance [place] [address] UHC MEDICARE ADVANTAGE [facility] MEDICARE ADVANTAGE Advance Directives For more information, please contact: [phone] * Full Code (Latest Code Status on File) Date Activated Date Inactivated Comments 03/23/2023 7:04 AM 03/26/2023 7:27 PM Care Teams Superintendent Pressure Relationship Specialty Start Date End Date Dillan Reddy MD [address] [address] PCP - General Internal Medicine 11/09/23 Bandar Gaffney MD Consulting Physician Cardiology 04/13/21
--- OUTSIDE RECORDS SUMMARY | 2025-07-11 13:12 | XMS_ITS | Clinical Summary ---
Author Organization [facility] Address [address] [address] Phone Care Team Providers Care Project Portfolio Analyst Name Role Phone Lana Tovar MD [...] this topic Insurance MEDICARE C [facility] Care Teams Project Portfolio Analyst Relationship Specialty Start Date End Date Lana Tovar MD [address] [place] [phone] PCP - General Family Medicine 12/23/16
--- OUTSIDE RECORDS SUMMARY | 2025-07-11 13:12 | XMS_ITS | Patient Health Record ---
Author Organization [facility] As [employer] [facility] Address [address] [place] [address] Care Team Providers Care Bridges And Buildings Supervisor Name Role Phone Maureen URBINA, Masoud Primary Care Provider Un available Patric Amaya Unavailable [phone] Allergies Allergen (clinical drug ingredient) Drug/Non Drug [...] Duration) Notes Start Date End Date Status clonazePAM 0.5 MG Tablet 1 tablet Oral t hree times a day; Duration: 30 days 07/09/2025 Active traZODone HCl 150 MG Tablet 1.5 tablet at bedtime Oral Once a day; Duration: 90 days 07/09/2025 Active Mirtazapine 15 MG Tablet Disintegrating 1 tablet on the tongue and allow to dissolve at bedtime Orally Once a day; Duration: 30 days 07/09/2025 Active Donepezil HCl 10 MG Tablet 1 tablet at b edtime Oral Once a day; Duration: 90 days 07/09/2025 Active Unithroid 150 MCG Tablet Oral; Duration: 90 Days Active hydrALAZINE HCl 10 MG Tablet TAKE 1 TABLET BY MOUTH TWICE DAILY Oral; Duration: 30 Days Active Metoclopramide HCl 5 MG Tablet TAKE 1 TABLET BY MOUTH 4 TIMES DAILY Oral; Duration: 30 Days Active traZODone HCl 150 MG Tablet Oral; Duration: 30 Days Acti ve Ondansetron 4 MG Tablet Disintegrating Oral; Duration: 7 Days Act agueda Loratadine 10 MG Tablet TAKE 1 TABLET BY MOUTH ONCE DAILY NEEDED Oral; Duration: 90 Days Active Losartan Potassium 50 MG Tablet TAKE 1 TABLET BY MOUTH ONCE DAILY Oral; Duration: 90 Days Active Cyanocobalamin 1000 MCG/ML Solution INJECT 1 ML INTRAMUSCULARLY ONCE EVERY MONTH Injection; Duration: 90 Days Active clonazePAM 0.5 MG Tablet Oral; Duration: 30 Days Active Furosemide 40 MG Tablet Oral; Duration: 84 Days Active Carvedilol 25 MG Tablet Oral; Duration: 90 Days Active Immunizations Vaccine Route [...] Vaccine 1st dose Unknown 02/22/2022 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 Covid-19 Vac cine 2nd dose Unknown 05/26/2022 [...] From Senior Services Living situation: Relies On Adrianna For Care And Transportation Diet: Avoids Red Meat Due To Nausea Living situation: Has A Caregiver Who Assists With Household Tasks Living situation: Lives Alone, Receives Visits From Senior Services Living situation: Relies On Adrianna For Care And Transportation Diet: Avoids Red Meat Due To Nausea Living situation: Has A Caregiver Who Assists With Household Tasks Diet: Avoids Red Meat Due To Nausea Living situation: Has A Caregiver Who Assists With Household Tasks Problems Problem Type SNOMED Code ICD Code Onset Dates Problem Status W/U Status Risk Notes Problem Bipolar affective disorder, currently depressed, mild (001160413) Bipolar disorder, current episode depressed, mild (F31.31) Active confirmed Problem Generalized anxiety disorder (15989296) Generalized anxiety disorder (F41.1) Active confirmed Problem Primary insomnia (5444208) Primary insomnia (F51.01) Active confirmed Problem Alzheimer's disease with late onset (547842328) Alzheimer's disease with late onset (G30.1) Active confirmed Problem Cardiomyopathy (48149025) Cardiomyopathy, unspecified (I42.9) Active confirmed Problem Heart failure (89163624) Heart failure, unspecified (I50.9) Active confirmed Problem Cerebral infarction (758568928) Cerebral infarction, unspecified (I63.9) Active confirmed Problem Recurrent falls (960035443) Repeated falls (R29.6) Active confirmed Problem Generalized anxiety disorder (68507160) [place] (generalized anxiety disorder) (F41.1) Active confirmed Problem Hyperlipidemia (67615178) Hyperlipidemia (E78.5) 03/22/20 21 Active confirmed Problem Hypothyroidism (22673347) Hypothyroidism (E03.9) 03/22/20 21 Active confirmed Problem Cardiomyopathy (80787731) Cardiomyopathy (I42.9) 03/22/20 21 Active confirmed Problem Left bundle branch block (59945776) Left bundle branch block (LBBB) (I44.7) 03/23/20 21 Active confirmed Problem Ventricular tachycardia (disorder) (11608439) VT (ventricular tachycardia) (I47.20) 04/12/20 21 Active confirmed Problem Automatic implantable cardiac defibrillator in situ (307132450) ICD (implantable cardioverter-defi brillator), biventricular, in situ (Z95.810) 04/21/20 23 Active confirmed Vital Signs Heart Rate 76 /min 07/09/2025 Height-cm 165.1 cm 07/09/2025 Blood pressure diastolic 80 mm Hg 07/09/2025 Weight-kg 72.58 kg 07/09/2025 Height 65.00 in 07/09/2025 Blood pressure systolic 122 mm Hg 07/09/2025 Weight 160 lbs 07/09/2025 BMI 26.62 kg/m2 07/09/2025 Encounters Encounter Location Date Provider Diagnosis [facility] [employer] [address] [address] 07/15/2024 Patric Jose Luis Bipolar disorder, current episode depressed, mild F31.31 ; Cardiomyopathy, unspecified I42.9 ; Primary insomnia F51.01 ; Alzheimer's disease with late onset G30.1 ; CAM[place] (generalized anxiety disorder) F41.1 ; Hyperlipidemia E78.5 ; Left bundle branch block (LBBB) I44.7 and Hypothyroidism E03.9 [facility] [employer] [place] [address] [facility] [address] [address] 09/19/2024 Patric Jose Luis Bipolar disorder, current episode depressed, mild F31.31 ; Cardiomyopathy, unspecified I42.9 ; Primary insomnia F51.01 ; Alzheimer's disease with late onset G30.1 ; [place] (generalized anxiety disorder) F41.1 ; Hyperlipidemia E78.5 ; Left bundle branch block (LBBB) I44.7 and Hypothyroidism E03.[address] [address] 10/17/2024 Patric Jose Luis Bipolar disorder, current episode depressed, mild F31.31 ; Primary insomnia F51.01 ; Alzheimer's disease with late onset G30.1 ; CAM[place] (generalized anxiety disorder) F41.1 ; Hyperlipidemia E78.5 and Hypothyroidism E03.[address] [address] 11/14/2024 Patric Jose Luis Encounter for screen ing for depression Z13.31 ; Encounter for screening for cardiovascular disorders Z13.6 ; Bipolar disorder, current episode depressed, mild F31.31 ; Primary insomnia F51.01 ; Alzheimer's disease with late onset G30.1 ; CAMDEN (generalized anxiety disorder) F41.1 ; Hyperlipidemia E78.5 and Hypothyroidism E03.[address] [address] 12/12/2024 Patric Jose Luis Encounter for screen ing for cardiovascular disorders Z13.6 ; Encounter for screening for depression Z13.31 ; Bipolar disorder, current episode depressed, mild F31.31 ; Primary insomnia F51.01 ; Alzheimer's disease with late onset G30.1 ; CAMDEN (generalized anxiety disorder) F41.1 ; Hyperlipidemia E78.5 and Hypothyroidism E03.[address] [address] 01/09/2025 Patric Jose Luis Bipolar disorder, current episode depressed, mild F31.31 ; Primary insomnia F51.01 ; Alzheimer's disease with late onset G30.1 ; CAM[place] (generalized anxiety disorder) F41.1 ; Negative depression screening Z13.31 and Encounter for screening for cardiovascular disorders Z13.[address] [address] 02/13/2025 Patric Jose Luis Bipolar disorder, current episode depressed, mild F31.31 ; Primary insomnia F51.01 ; Alzheimer's disease with late onset G30.1 ; Dietary counseling and surveillance Z71.3 ; CAMDEN (generalized anxiety disorder) F41.1 ; Encounter for screening for cardiovascular disorders Z13.6 and Encounter for screening for depression Z13.[address] [address] 03/12/2025 Patric Jose Luis Bipolar disorder, current episode depressed, mild F31.31 ; Primary insomnia F51.01 ; Alzheimer's disease with late onset G30.1 ; CAM[place] (generalized anxiety disorder) F41.1 and Heart failure, unspecified I50.[address] [facility] [address] [place] [address] 04/09/2025 Patric Jose Luis Bipolar disorder, current episode depressed, mild F31.31 ; Primary insomnia F51.01 ; Alzheimer's disease with late onset G30.1 ; CAMDEN (generalized anxiety disorder) F41.1 and Repeated falls R29.[address] [address] 05/12/2025 Patric Jose Luis Bipolar disorder, current episode depressed, mild F31.31 ; Primary insomnia F51.01 ; Alzheimer's disease with late onset G30.1 ; CAMDEN (generalized anxiety disorder) F41.1 ; Cerebral infarction, unspecified I63.9 ; Muscle weakness (generalized) M62.81 and Abnormal weight loss R63.[address] [address] 06/11/2025 Patric Jose Luis Bipolar disorder, current episode depressed, mild F31.31 ; Primary insomnia F51.01 ; Alzheimer's disease with late onset G30.1 ; CAMDEN (generalized anxiety disorder) F41.1 ; Cerebral infarction, unspecified I63.9 ; Abnormal weight loss R63.4 ; ICD (implantable cardioverter-defibrillat or), biventricular, in situ Z95.810 and Pneumonia, unspecified organism J18.[address] [address] 07/09/2025 Patric Jose Luis Bipolar disorder, current episode depressed, mild F31.31 ; Primary insomnia F51.01 ; Alzheimer's disease with late onset G30.1 ; CAMDEN (generalized anxiety disorder) F41.1 and Urinary tract infection, site not specified N39.0 [facility] [address] [place] [address] 08/16/2024 Patricayshira Amaya Generalized anxiety disorder F41.1 [facility] [address] [place] [address] 09/13/2024 Patric Jose Luis Generalized anxiety disorder F41.1 and Primary insomnia F51.01 [facility] [address] [place] [address] 11/26/2024 Patric Jose Luis [facility] [address] [place] [address] 03/28/2025 Patricyashira Amaya Assessments Encounter Date Diagnosis (ICD Code) [...] be confirmed. - Consider referral to a supervisor garage or automation manager for further evaluation and management. Bipolar [...] mentions buying her son a turkey for [place] and preferring phone conversations over in-person visits. - Plan: - Encourage the patient to maintain open communication with her family members. - Offer support and resources as needed for any social or emotional concerns. Insurance and Healthcare Access - Assessment: The patient has [employer] insurance and is concerned about potential changes in network coverage, specifically mentioning [employer] potentially going out of network. - Plan: [...] devices or physical therapy if needed. 10/17/2024 Bipolar disorder, current episode depressed, [...] unspecified 05/12/2025 Primary insomnia (ICD-10 - F51.01) 06/11/2025 Bipolar disorder, current episode depressed, mild (ICD-10 - F31.31) CancelRx Response got Denied on 2025-07-09 15:31:49 for 'Venlafaxine HCl ER 37.5 MG Capsule Extended Release 24 Hour'Pharmacy Notes: Prescription not found. Contact Pharmacy by other means 06/11/2025 Primary insomnia (ICD-10 - F51.01) 07/09/2025 Bipolar disorder, current episode depressed, mild (ICD-10 - F31.31) Patient reports sleeping fine. Trazodone continued for sleep support. - Continue trazodone 50 mg, one tablet at bedtime. Patient reports poor appetite and difficulty eating. Provider discussed starting mirtazapine to help with appetite and depression. - Start mirtazapine at night. Patient reports poor appetite and difficulty eating. Provider discussed starting mirtazapine to help with appetite and depression. - Start mirtazapine at night. 07/09/2025 Primary insomnia (ICD-10 - F51.01) Patient reports sleeping fine. Trazodone continued for sleep support. - Continue trazodone 50 mg, one tablet at bedtime. 07/09/2025 Alzheimer's disease with late onset (ICD-10 - G30.1) Patient reported memory issues, improved after UTI treatment. Donepezil continued for memory support. - Continue donepezil. 06/11/2025 Alzheimer's disease with late onset (ICD-10 - G30.1) 05/12/2025 Alzheimer's disease with late onset (ICD-10 - G30.1) 11/14/2024 Encounter for screening for cardiovascular disorders (ICD-10 - Z13.6) 04/09/2025 Alzheimer's disease with late onset (ICD-10 [...] with late onset (ICD-10 - G30.1) 07/15/2024 Cardiomyopathy, unspecified (ICD-10 - I42.9) Shortness [...] be confirmed. - Consider referral to a supervisor garage or automation manager for further evaluation and management. Bipolar [...] Healthcare Access - Assessment: The patient has [employer] insurance and is concerned about potential changes in network coverage, specifically mentioning [employer] potentially going out of network. - Plan: [...] symptoms or concerns during this time. 10/17/2024 CAM[place] (generalized anxiety disorder) (ICD-10 - F41.1) 07/15/2024 Primary insomnia (ICD-10 - F51.01) Shortness [...] be confirmed. - Consider referral to a supervisor garage or automation manager for further evaluation and management. Bipolar [...] Healthcare Access - Assessment: The patient has [employer] insurance and is concerned about potential changes in network coverage, specifically mentioning [place] potentially going out of network. - Plan: [...] devices or physical therapy if needed. 11/14/2024 Bipolar disorder, current episode depressed, mild [...] CAMDEN (generalized anxiety disorder) (ICD-10 - F41.1) 06/11/2025 [place] (generalized anxiety disorder) (ICD-10 - F41.1) Patient reports increased anxiety and nervousness. Expressed worry about aging and feeling 'too old.'. 07/09/2025 [place] (generalized anxiety disorder) (ICD-10 - F41.1) Patient reports increased anxiety and nervousness. Expressed worry about aging and feeling 'too old.'. 07/09/2025 Urinary tract infection, site not specified (ICD-10 - N39.0) Recent hospitalization for UTI. Symptoms included weakness and memory impairment. Memory improved after UTI treatment. 06/11/2025 Cerebral infarction, unspecified (ICD-10 - I63.9) 02/13/2025 CAM[place] (generalized anxiety disorder) (ICD-10 - [...] - Assess progress in one month. 05/12/2025 Cerebral infarction, unspecified (ICD-10 - I63.9) Recent stroke confirmed by patient history and multiple hospital admissions. MRI performed, results not communicated to patient. Three hospitalizations , including a four-day stay at [facility]. 03/12/2025 Heart failure, unspecified (ICD-10 - I50.9) [...] F51.01) 11/14/2024 Primary insomnia (ICD-10 - F51.01) 07/15/2024 Alzheimer's disease with late onset (ICD-10 [...] be confirmed. - Consider referral to a supervisor garage or automation manager for further evaluation and management. Bipolar [...] Healthcare Access - Assessment: The patient has [employer] insurance and is concerned about potential changes in network coverage, specifically mentioning [employer] potentially going out of network. - Plan: [...] devices or physical therapy if needed. 10/17/2024 Hyperlipidemia (ICD-10 - E78.5) 09/19/2024 [...] be confirmed. - Consider referral to a supervisor garage or automation manager for further evaluation and management. Bipolar [...] Healthcare Access - Assessment: The patient has [employer] insurance and is concerned about potential changes in network coverage, specifically mentioning [employer] potentially going out of network. - Plan: [...] devices or physical therapy if needed. 10/17/2024 Hypothyroidism (ICD-10 - E03.9) 11/14/2024 Alzheimer's [...] most of her time in a wheelchair. 06/11/2025 Abnormal weight loss (ICD-10 - R63.4) Patient reports losing 20 lbs in one week. recent pneumonia 06/11/2025 ICD (implantable cardioverter-de fibrillator), biventricular, in situ (ICD-10 - Z95.810) Patient's defibrillator fired a couple of days ago. Patient contacted [employer] to reset device. 05/12/2025 Abnormal weight loss (ICD-10 - R63.4) Patient reports significant weight loss and difficulty eating. Expressed frustration about not being able to obtain a scale. 02/13/2025 Encounter for screening for depression (ICD-10 - Z13.31) 01/09/2025 Encounter for screening for cardiovascular disorders (ICD-10 - Z13.6) 12/12/2024 [place] (generalized anxiety disorder) (ICD-10 - F41.1) 11/14/2024 [place] (generalized anxiety disorder) (ICD-10 - F41.1) 07/15/2024 Hyperlipidemia (ICD-10 - E78.5) Shortness of [...] be confirmed. - Consider referral to a supervisor garage or automation manager for further evaluation and management. Bipolar [...] Healthcare Access - Assessment: The patient has [employer] insurance and is concerned about potential changes in network coverage, specifically mentioning [place] potentially going out of network. - Plan: [...] this time. 11/14/2024 Hyperlipidemia (ICD-10 - E78.5) 07/15/2024 Left bundle [...] be confirmed. - Consider referral to a supervisor garage or automation manager for further evaluation and management. Bipolar [...] Healthcare Access - Assessment: The patient has [employer] insurance and is concerned about potential changes in network coverage, specifically mentioning [place] potentially going out of network. - Plan: [...] this time. 12/12/2024 Hyperlipidemia (ICD-10 - E78.5) 06/11/2025 Pneumonia, unspecified organism (ICD-10 - J18.9) 12/12/2024 Hypothyroidism (ICD-10 - E03.9) 11/14/2024 Hypothyroidism (ICD-10 - E03.9) 07/15/2024 Hypothyroidism [...] be confirmed. - Consider referral to a supervisor garage or automation manager for further evaluation and management. Bipolar [...] Healthcare Access - Assessment: The patient has [employer] insurance and is concerned about potential changes in network coverage, specifically mentioning [place] potentially going out of network. - Plan: [...] to Furosemide (Lasix) issue. Upcoming appointment with information specialist on the . - Plan: - Monitor [...] member for money and food. Power of securities attorney is with brother Mauricio Pacheco. - Plan: - Encourage patient to discuss financial concerns with power of securities attorney and establish boundaries with family members. [...] cardiac device monitoring - Follow up with supervisor garage as scheduled in February Gambling Urges Assessment: [...] without a caregiver for 2 months. A regional sales representative from an aging services organization has contacted [employer] to address this issue. Plan: - Follow up on the status of caregiver assignment through [employer] Disclaimer: This note has been transcribed using speech recognition software and serves as a reflection of the patient's visit. While efforts have been made to ensure accuracy, there may be errors, including control panel builder inaccuracies and misspellings of medication names. This document should not be considered a verbatim record, and any discrepancies should be verified with the provider. 01/09/2025 Other Medication Management and Access - Assessment: Patient reports discontinuation of Entresto due to loss of sample access and high rue-oc-lonoom costs (approximately $600/month). This has led to [...] or reduced-cost medications. - Follow up with supervisor garage (Dr. Rodriguez) regarding medication changes and current [...] functioning. - Consider referral to social worker psychiatric for additional support if needed. Mood and [...] without using your hands.3. Strength Training Exercises- Dtk-mo-kymsn: rise from a chair repeatedly.- Wall push-ups: [...] No new interventions required at this time. 06/11/2025 Other Patient reports cloudy urine. Kidney specialist recommended urinalysis. - Ordered urinalysis for evaluation of cloudy urine. 07/09/2025 Other Patient reports ongoing weakness since hospitalization. Reduced activity and mostly staying home. Plan Of Treatment Next Appt Details Provider Name:Patric Amaya , 08/11/2025 01:30:00 PM, [address], [facility] [address], [place], [address], Provider Name:Patric Amaya , 09/10/2025 01:30:00 PM, [address], [place], [address], Provider Name:Patric Amaya , 10/15/2025 01:30:00 PM, [address], [address], [place], [address], Insurance Providers Payer Name Payer Address Payer Phone Subscriber Number Group Number Insured Name Patient Relationship to Insured Coverage Start Date Coverage End Date [employer] Medicare Replacement/ Advantage - P[place] [address] [address] [place] [address] [id number] JAILENE MARTINO Self - patient is the [...] sed, mild Insomnia History of pneumonia Stroke Urinary tract infection, recent hospital ization Surgical History Surgery Date(Month/Year) Implantation of cardiac defibrillator libby cook ([id number]) 04/12/2021 Hospitalization History Reason Date(Month/Year) Fall and pneumonia, a week ago monday Stroke, silvana or, date not specified Stroke, silvana or, four-day admission Stroke, silvana or, two additional admi ssions Pneumonia, [facility] or [facility], date not specified Urinary tract infection, silvana (hospi jose), monday to monday
--- OUTSIDE RECORDS SUMMARY | 2025-07-11 13:12 | XMS_ITS | Encounter Summary ---
Author Organization [facility] Healthcare Address [address] [place] [address] Care Team Providers Care Diesel Engine Ii Pipe Fitter Name Role Phone Bandar Gaffney MD Unavailable Dillan Reddy MD Primary Care Provide r Encounter Details Date Type Department Care Team (Late st Contact Info) Description 07/09/2025 Telephone [facility] Medical Group Cardiology [address] [facility] [address] [address] Samy Ceja MD [address] [facility] [address] [place] [address] Social History Tobacco Use Types [...] any clubs o r organizations such as zoroastrian groups, unions, fraternal or athletic groups, or [...] on file Legal Sex Female 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 She is asking for a 90day supply to be sent to [facility] in [place]. Please advise. Thank you. Contact : [phone] MANAGEMENT OFFICER documented in this encounter Plan of Treatment Not on file documented as of this encounter Visit Diagnoses Not on filedocumented in this encounter Care Teams Diesel Engine Ii Pipe Fitter Relationship Specialty Start Date End Date Dillan Reddy MD [address] [place] [address] PCP - General Internal Medicine 11/09/23 Bandar Gaffney MD Consulting Physician Cardiology 04/13/21 documented as of this encounter
--- OUTSIDE RECORDS SUMMARY | 2025-07-11 13:12 | XMS_ITS | Encounter Summary ---
Author Organization [facility] Healthcare Address [address] [place] [address] Care Team Providers Care Gear Repair Supervisor Name Role Phone Bandar Gaffney MD Unavailable [phone] Dillan Reddy MD Primary Care Provide r Encounter Details Date Type Department Care Team (Late st Contact Info) Description 03/25/2025 Orders Only [facility] Health Information Management [address] [place] [id number] Scanning, Provider Social History Tobacco Use Types [...] often do you attend chur ch or christianity services? 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 Gender Identity Not on file Sexual Orientation Not on file documented as of this encounter Plan of Treatment Not on file documented as of this encounter Procedures Procedure Name Priority Date/Time Associated Diagnosis Comments CARDIOLOGY DOCUMENT SCAN 03/25/2025 documented in this encounter Results * Cardiology Document Scan (03/25/2025) Anatomical Region Laterality Modality Other us Provider Scanning CV CARDIAC SERVICES PROCEDURES Final Result documented in this encounter Visit Diagnoses Not on filedocumented in this encounter Care Teams Gear Repair Supervisor Relationship Specialty Start Date End Date Dillan Reddy MD [address] [address] PCP - General Internal Medicine 11/09/23 Bandar Gaffney MD Consulting Physician Cardiology 04/13/21 documented as of this encounter
[2025-07-11 14:38] LABS: Hematocrit 38.5 % (37.0-47.0); Hemoglobin 12.0 g/dL (12.0-15.0); Immature Granulocyte Percent A 0.1 % (0-0.5); Lymphocytes Absolute Auto 1.79 K/mm3 (0.9-3.2); Mean Corpuscular HGB Conc 31.2 g/dl (32-36); Mean Corpuscular Hemoglobin 30.6 pg (26-34); Mean Corpuscular Volume 98.2 fl (80-100); Nucleated Red Blood Cells Absolute Auto 0.000 K/mm3 (0.0-0.012); Nucleated Red Blood Cells Perc 0.0 % (0.0-0.2); Platelet Count Result 229 k/mm3 (150-375); Red Blood Count 3.92 M/mm3 (4.2-5.4); White Blood Count 7.3 K/mm3 (4.5-10.0)
[2025-07-11 14:52] LABS: INR 2.9; Prothrombin Time 29.8 Seconds (11.1-14.7)
[2025-07-11 14:53] LABS: Partial Thromboplastin Time 31.2 Seconds (22.3-36.8)
[2025-07-11 16:26] LABS: Alanine Aminotransferase 40 U/L (6-35); Albumin Level 3.9 g/dL (3.5-5.1); Alkaline Phosphatase 55 U/L (38-126); Anion Gap 5 mmol/L (4-12); Aspartate Amino Transferase 38 U/L (14-36); Bilirubin,Total 0.4 mg/dL (0.2-1.3); Blood Urea Nitrogen 12 mg/dL (7-17); Calcium 8.8 mg/dL (8.4-10.2); Carbon Dioxide 29 mmol/L (22-30); Chloride 102 mmol/L (98-107); Estimated CRCL calculation 35 ml/min; Estimated Glomerular Filt Rate 51; Glucose 89 mg/dL (65-110); Potassium 3.7 mmol/L (3.4-5.0); Sodium 136 mmol/L (137-145); Total Protein 7.0 g/dL (6.3-8.2)
[2025-07-11 16:33] LABS: NT Pro B Type Natriuretic Pept 1780 pg/mL (19.9-100); Troponin I 0.030 ng/mL (0.000-0.034)
--- NOTE | 2025-07-11 17:15 | ED.SOB ---
HPI - SOB/Dyspnea General Chief Complaint: Shortness of Breath/Dyspnea Stated Complaint: CANT BREATH Time Seen by Provider: 07/11/25 15:07 Source: patient Mode of arrival: ambulatory Limitations: no limitations History of Present Illness HPI Narrative: 79-year-old with a history of CHF, bipolar disorder, anxiety here with the complaints of of bilateral leg swelling unable to walk, constantly drooling since this morning. Patient denies having any chest pain but complains of mild shortness of breath. She also states that she has been taking all her medication including furosemide and she barely urinated today. MD elicited complaint: shortness of breath Pertinent past history: congestive heart failure Onset (ago): day(s) (1) Timing: constant Severity: moderate Exacerbating factors: nothing Relieving factors: nothing Known history of: congestive heart failure Associated symptoms: denies other symptoms Related Data Home Medications ?Medication ?Instructions ?Recorded ?Confirmed ?Last Taken ?Type trazodone 150 mg tablet 150 mg PO HS 03/22/21 06/22/25 06/21/25 History venlafaxine 37.5 mg 37.5 mg PO DAILY 08/22/22 06/22/25 06/21/25 History capsule,extended release 24 hr (Effexor XR) rosuvastatin 40 mg tablet 40 mg PO DAILY 12/27/23 06/22/25 06/21/25 History amiodarone 200 mg tablet 200 mg PO DAILY 01/02/24 06/22/25 06/21/25 History clonazepam 0.5 mg tablet 0.5 mg PO TID 01/02/24 06/22/25 06/21/25 History levothyroxine 150 mcg tablet 150 mcg PO DAILY 01/02/24 06/22/25 06/21/25 History carvedilol 12.5 mg tablet 25 mg PO DAILY 12/24/24 06/22/25 06/21/25 History cyanocobalamin (vitamin B-12) 1,000 mcg subcut MONTHLY 03/25/25 06/22/25 06/05/25 History 1,000 mcg/mL injection solution donepezil 10 mg tablet 10 mg PO HS 03/25/25 06/22/25 06/21/25 History famotidine 20 mg tablet 20 mg PO Q12H PRN reflux 03/25/25 06/22/25 04/21/25 History furosemide 40 mg tablet 40 mg PO 3XW 03/25/25 06/22/25 06/20/25 History spironolactone 25 mg tablet 25 mg PO DAILY 03/25/25 06/22/25 06/21/25 History acetaminophen 650 mg 650 mg PO Q8H PRN pain 05/20/25 06/22/25 Unknown History tablet,extended release (8 Hour Pain Reliever) Allergies Allergy/AdvReac Type Severity Reaction Status Date / Time codeine Allergy Unknown Unknown Verified 06/22/25 18:17 hydroxyzine Allergy Unknown Unknown Verified 06/22/25 18:17 lorazepam Allergy Unknown Unknown Verified 06/22/25 18:17 tramadol Allergy Unknown Unknown Verified 06/22/25 18:17 NSAIDS (Non-Steroidal AdvReac Unknown Nausea Verified 06/22/25 18:17 Anti-Inflamma sumatriptan AdvReac Unknown FELT Verified 06/22/25 18:17 HORRIBLE Review of Systems Review of Systems: All systems reviewed & are unremarkable except as noted in HPI and below Constitutional: Constitutional: Reports no additional constitutional complaints Eyes: Eyes: Reports no additional eye complaints ENT: Reports system reviewed and no additional complaints, except as documented Cardiovascular: Cardiovascular: Reports as per HPI Respiratory: Respiratory: Reports as per HPI Gastrointestinal: Gastrointestinal: Reports no additional gastrointestinal complaints Musculoskeletal: Musculoskeletal: Reports no additional musculoskeletal complaints Integumentary/Breasts: Skin/Breast: Reports system reviewed and no additional complaints, except as docu Neurologic: Reports system reviewed and no additional complaints, except as documented PMFSH Past Medical History Medical History Chronic anticoagulation Transient ischemic attack Gastroesophageal reflux disease Chronic kidney disease Depression with anxiety Deep venous thrombosis Heart failure with reduced ejection fraction EF was 20 to 25% in March 2021. Left bundle branch block Hyperlipidemia Hypertension Hypothyroidism Cardiomyopathy Bipolar disorder Surgical History Surgical History History of colon resection History of bilateral knee arthroplasty History of repair of left rotator cuff History of bladder suspension procedure History of tonsillectomy History of cardiac catheterization History of partial hysterectomy History of orthopedic surgery Family History Family History Father Hypertension Cerebrovascular accident Mother Family history of diabetes mellitus in first degree relative Family history of lung disease Family history of coronary artery disease Sibling Family history of diabetes mellitus in first degree relative Cardiomyopathy Son Family history of mental disorder Other Family history of alcoholism Family history of arthritis Family history of gout Social History Social History Social History: Surrogate medical decision maker: Man Linton, sibling. Code status: Full code. Second hand tobacco smoke exposure: No Alcohol intake: never Substance use: never Substance use type: does not use Do You Feel Safe in your Home?: Yes Lack of Transportation: No Lack of Food: Never True Current Housing: I Have Housing Concerned About Future Housing: No Difficulty Paying Gas/Electric Bills: No Difficulty Paying for Meds: No Currently Unemployed: No Education: High School Diploma/GED Difficulty w/ Childcare or Family Care: No Living arrangements: with roommate(s) Additional living arrangements comments: . Has 1 child. Additional occupation/education comments: Retired from the [employer]. Spiritual care concerns: No Exam Narrative: GENERAL: Well-appearing, well-nourished, and in no acute distress. HEAD: Normocephalic, atraumatic. EYES: PERRLA and EOMI. ENT: Nares clear, no rhinorrhea or epistaxis. Mucous membranes moist. Constantly drooling NECK: Supple. CHEST: Clear to auscultation. No respiratory distress. HEART: Regular rate and rhythm. No murmur heard. Normal peripheral pulses. ABDOMEN: Soft, nontender, nondistended, normal active bowel sounds. EXTREMITIES: Normal range of motion. 2 + edema. SKIN: Warm, dry, no rash. NEURO: No focal deficits. Alert and oriented x3. PSYCH: Normal mood and affect. Course Course Emergency Course: Notified patient about her lab work. She does not feel comfortable going back home. She states that she is unable to walk because of for leg swelling. Vital Signs Vital signs: Vital Signs Pulse Rate 67 07/11/25 13:15 Respiratory Rate 16 07/11/25 13:15 Blood Pressure 136/62 07/11/25 13:15 Pulse Oximetry 96 07/11/25 13:15 Temperature 36.8 C 07/11/25 14:21 Pulse Rate 68 07/11/25 14:31 Respiratory Rate 19 07/11/25 14:31 Blood Pressure 160/84 H 11/07/25 14:31 Pulse Oximetry 94 07/11/25 14:31 Oxygen Delivery Room Air 07/11/25 14:24 MDM - SOB/Dyspnea Differential Diagnosis Differential diagnosis: Likely congestive heart failure Medical Records Attestation: I reviewed the patient's medical records. Lab Data Attestation: I reviewed the patient's lab results. 07/11/25 14:33 07/11/25 15:59 Labs: Lab Results 07/11/25 07/11/25 Range/Units 14:33 15:59 WBC 7.3 (4.5-10.0) K/mm3 RBC 3.92 L (4.2-5.4) M/mm3 Hgb 12.0 (12.0-15.0) g/dL Hct 38.5 (37.0-47.0) % MCV 98.2 (80-100) fl MCH 30.6 (26-34) pg MCHC 31.2 L (32-36) g/dl RDW 14.8 H (11.5-14.5) % Plt Count 229 (150-375) k/mm3 MPV 9.7 (7.4-10.4) fl Immature Gran % (Auto) 0.1 (0-0.5) % Neut % (Auto) 64.9 (45.5-73.1) % Lymph % (Auto) 24.4 (18.3-44.2) % Carroll % (Auto) 10.1 H (2.6-8.5) % Eos % (Auto) 0.1 (0-4.4) % Baso % (Auto) 0.4 (0.2-1.2) % Lymph # (Auto) 1.79 (0.9-3.2) K/mm3 Carroll # (Auto) 0.7 H (0.1-0.6) K/mm3 Eos # (Auto) 0.0 (0-0.3) K/mm3 Baso # (Auto) 0.0 (0.0-0.1) K/mm3 Abs Immat Gran (auto) 0.01 (0.00-0.031) K/mm3 Absolute Neuts (auto) 4.8 (1.3-6.7) K/mm3 Absolute Nucleated RBC 0.000 (0.0-0.012) K/mm3 Nucleated RBC % 0.0 (0.0-0.2) % PT 29.8 H (11.1-14.7) Seconds INR 2.9 APTT 31.2 (22.3-36.8) Seconds Sodium 136 L (137-145) mmol/L Potassium 3.7 (3.4-5.0) mmol/L Chloride 102 (98-107) mmol/L Carbon Dioxide 29 (22-30) mmol/L Anion Gap 5 (4-12) mmol/L BUN 12 D (7-17) mg/dL Creatinine 1.04 H (0.7-1.0) mg/dL Estim Creat Clear Calc 35 ml/min Estimated GFR 51 L (59 - ) Glucose 89 (65-110) mg/dL Calcium 8.8 (8.4-10.2) mg/dL Total Bilirubin 0.4 (0.2-1.3) mg/dL AST 38 H (14-36) U/L ALT 40 H (6-35) U/L Alkaline Phosphatase 55 (38-126) U/L Troponin I 0.030 (0.000-0.034) ng/mL NT-Pro-B Natriuret Pep 1780 H (19.9-100) pg/mL Total Protein 7.0 (6.3-8.2) g/dL Albumin 3.9 (3.5-5.1) g/dL Imaging Data Radiologist's impression: ITS Impressions Chest X-Ray 07/11/25 14:16 Impression: No acute cardiopulmonary abnormality. ECG Data EKG #1: ECG completion date: 07/11/25 ECG completion time: 13:17 EKG Interpretation: normal rate (68) and no ectopy Pacemaker function: normal pacer function Discharge Plan Discharge Clinical Impression: CHF (congestive heart failure) Qualifiers: Heart failure type: unspecified Heart failure chronicity: acute on chronic Qualified Code(s): I50.9 - Heart failure, unspecified Patient Disposition: Still a Patient Condition: Stable Patient Language: Irish Prescriptions: No Action venlafaxine [Effexor XR] 37.5 mg capsule,extended release 24hr 37.5 mg PO DAILY trazodone 150 mg tablet 150 mg PO HS carvedilol 12.5 mg tablet 25 mg PO DAILY rosuvastatin 40 mg tablet 40 mg PO DAILY levothyroxine 150 mcg Tablet 150 mcg PO DAILY amiodarone 200 mg tablet 200 mg PO DAILY clonazepam 0.5 mg tablet 0.5 mg PO TID famotidine 20 mg tablet 20 mg PO Q12H PRN (Reason: reflux) spironolactone 25 mg tablet 25 mg PO DAILY cyanocobalamin (vitamin B-12) 1,000 mcg/mL solution 1,000 mcg subcut MONTHLY donepezil 10 mg tablet 10 mg PO HS furosemide 40 mg tablet 40 mg PO 3XW Patient Comments: taking Monday, Monday, Monday Rx Instructions: -- warfarin 3 mg tablet 2 mg PO DAILY Qty: 30 0RF acetaminophen [8 Hour Pain Reliever] 650 mg tablet extended release 650 mg PO Q8H PRN (Reason: pain) loratadine 10 mg Tablet 10 mg PO QAM Qty: 30 0RF metoclopramide HCl 5 mg Tablet 5 mg PO ACHS Qty: 120 0RF hydralazine 10 mg tablet 10 mg PO BID Qty: 60 0RF ondansetron 4 mg tablet,disintegrating 8 mg PO Q12H PRN (Reason: nausea and vomiting) Qty: 30 0RF amoxicillin-pot clavulanate 875-125 mg tablet 1 tablet PO Q12H Qty: 10 0RF Follow-up/Referrals: Maureen,MD Masoud [Primary Care Provider, Unknown] Time of Disposition: 18:00
[2025-07-11] MEDS: FUROSEMIDE INJ 40 MG/4 ML VIAL IV PUSH (17:49)
--- NOTE | 2025-07-11 17:53 | P.HP_ITS ---
H&P: HPI History of Present Illness Date/Time: 07/11/25 17:53 Chief Complaint: Shortness of breath Narrative: [age]-year-old female with past medical history of pacemaker, CHF, bipolar, anxiety complains of bilateral lower extremity edema and shortness of breath. Patient complains of shortness of breath, increased elevation and bilateral leg swelling unable to walk. Patient denies chest pain, nausea vomiting fever or chills. Patient states that she takes Lasix every other day as prescribed. She states that she has been barely urinating. Sodium of 136, creatinine of 1.04, GFR of 51, BNP of 1780, patient was given Lasix in the emergency room. Echocardiogram from 04/22/2025 shows EF of 45-50%. Patient was given Lasix in the emergency room. Review of Systems Review of Systems: 12 systems were reviewed and are negativ e except for as per HPI. [facility] Past Medical History Medical History Chronic anticoagulation Transient ischemic attack Gastroesophageal reflux disease Chronic kidney disease Depression with anxiety Deep venous thrombosis Heart failure with reduced ejection fraction EF was 20 to 25% in March 2021. Left bundle branch block Hyperlipidemia Hypertension Hypothyroidism Cardiomyopathy Bipolar disorder Surgical History Surgical History History of colon resection History of bilateral knee arthroplasty History of repair of left rotator cuff History of bladder suspension procedure History of tonsillectomy History of cardiac catheterization History of partial hysterectomy History of orthopedic surgery Family History Family History Father Hypertension Cerebrovascular accident Mother Family history of diabetes mellitus in first degree relative Family history of lung disease Family history of coronary artery disease Sibling Family history of diabetes mellitus in first degree relative Cardiomyopathy Son Family history of mental disorder Other Family history of alcoholism Family history of arthritis Family history of gout Social History Social History Social History: Surrogate medical decision maker: Man Francheskajennifer, sibling. Code status: Full code. Second hand tobacco smoke exposure: No Alcohol intake: never Substance use: never Substance use type: does not use Do You Feel Safe in your Home?: Yes Lack of Transportation: No Lack of Food: Never True Current Housing: I Have Housing Concerned About Future Housing: No Difficulty Paying Gas/Electric Bills: No Difficulty Paying for Meds: No Currently Unemployed: No Education: High School Diploma/GED Difficulty w/ Childcare or Family Care: No Living arrangements: with roommate(s) Additional living arrangements comments: . Has 1 child. Additional occupation/education comments: Retired from the [employer]. Spiritual care concerns: No Meds Home Medications and Allergies Home Medications ?Medication ?Instructions ?Recorded ?Confirmed ?Type trazodone 150 mg tablet 150 mg PO HS 03/22/21 History venlafaxine 37.5 mg 37.5 mg PO DAILY 08/22/22 History capsule,extended release 24 hr (Effexor XR) rosuvastatin 40 mg tablet 40 mg PO DAILY 12/27/2303/28 History amiodarone 200 mg tablet 200 mg PO DAILY 01/02/2403/28 History clonazepam 0.5 mg tablet 0.5 mg PO TID 01/02/2407/11 History levothyroxine 150 mcg tablet 150 mcg PO DAILY 01/02/24 07/11/25 History carvedilol 12.5 mg tablet 25 mg PO DAILY 12/24/2403/28 History cyanocobalamin (vitamin B-12) 1,000 mcg subcut MONTHLY 03/25/25 07/11/25 History 1,000 mcg/mL injection solution donepezil 10 mg tablet 10 mg PO HS 03/25/25 5 History furosemide 40 mg tablet 40 mg PO 3XW 03/25/25 History spironolactone 25 mg tablet 25 mg PO DAILY 03/25/25 History acetaminophen 650 mg 650 mg PO Q8H PRN pain 05/2007/11/25 History tablet,extended release (8 Hour Pain Reliever) hydralazine 10 mg tablet 10 mg PO BID #60 tabs 07/11/25 Rx loratadine 10 mg tablet 10 mg PO QAM #30 tabs 07/11/25 Rx metoclopramide HCl 5 mg tablet 5 mg PO ACHS #120 tabs 05/30/25 07/11/25 Rx ondansetron 4 mg disintegrating 8 mg (2 x 4 mg) PO Q12 H PRN nausea 05/30/25 07/11/25 Rx tablet and vomiting #30 tabs losartan 50 mg tablet 50 mg PO DAILY 07/11/2503/28 History mirtazapine 15 mg disintegrating 15 mg PO HS 07/11/25 07/11/25 History tablet Allergies Allergy/AdvReac Type Severity Reaction Status Date / Time codeine Allergy Unknown Unknown Verified 06/22/25 18:17 hydroxyzine Allergy Unknown Unknown Verified 06/22/25 18:17 lorazepam Allergy Unknown Unknown Verified 06/22/25 18:17 tramadol Allergy Unknown Unknown Verified 06/22/25 18:17 NSAIDS (Non-Steroidal AdvReac Unknown Nausea Verified 06/22/25 18:17 Anti-Inflamma sumatriptan AdvReac Unknown FELT Verified 06/22/25 18:17 HORRIBLE Vital Signs Vital Signs - 24 hr 07/11/25 13:15 07/11/25 14:21 07/11/25 14:24 Temperature 98.2 F Pulse Rate 67 68 Respiratory Rate 16 24 H Blood Pressure 136/62 162/77 H Pulse Oximetry 96 96 Oxygen Delivery Room Air Room Air 07/11/25 14:31 07/11/25 15:16 07/11/25 15:31 Temperature Pulse Rate 68 63 62 Respiratory Rate 19 21 H 18 Blood Pressure 160/84 H 171/75 H 175/70 H Pulse Oximetry 94 97 98 Oxygen Delivery 07/11/25 15:46 07/11/25 16:01 07/11/25 16:06 Temperature Pulse Rate 66 72 67 Respiratory Rate 27 H 33 H 33 H Blood Pressure 162/90 H 172/120 H 160/86 H Pulse Oximetry 96 98 96 Oxygen Delivery 07/11/25 16:16 07/11/25 16:31 07/11/25 16:46 Temperature Pulse Rate 66 64 64 Respiratory Rate 29 H 23 H 31 H Blood Pressure 169/71 H 161/76 H 161/75 H Pulse Oximetry 95 95 93 Oxygen Delivery 07/11/25 17:01 07/11/25 17:31 Temperature Pulse Rate 76 73 Respiratory Rate 27 H 24 H Blood Pressure 171/71 H 162/65 H Pulse Oximetry 95 97 Oxygen Delivery Exam Narrative: General: well appearing, appears stated age. HEENT: normocephalic, atraumatic. Mucous membranes moist. EOMI, PERRLA, bilateral sclera anicteric, no conjunctival injection. Neck supple without JVD, lymphadenopathy, or bruit. Respiratory: clear bilaterally. No rales/rhonic/wheezes. Cardiovascular: Regular rate and rhythm, normal S1-S2. No murmurs, rubs, or clicks. PMI is nondisplaced, capillary refill less than 3 second. Abdomen: Soft, round, no pulsatile masses, nondistended and nontender. No rebound, no guarding. Bowel sounds present to all four quadrants. No high pitch or tinkling sounds, resonant to percussion. Extremities: No cyanosis, clubbing, or edema present. Pulses are palpable 2/2. Active ROM to all four extremities. Neuro: Alert and orientated x 4. PERRLA. Cranial nerves 2-12 intact without focal deficit. Skin: Warm, dry, and intact, without rash, erythema, or lesion. Psych: pleasant, cooperative, normal speech, normal affect, no hallucinations, no dysarthia Urine clear yellow H&P: Results Labs Labs: Short CBC 07/11/25 Range/Units 14:33 WBC 7.3 (4.5-10.0) K/mm3 Hgb 12.0 (12.0-15.0) g/dL Hct 38.5 (37.0-47.0) % Plt Count 229 (150-375) k/mm3 BMP 07/11/25 15:59 Sodium 136 L Potassium 3.7 Chloride 102 Carbon Dioxide 29 BUN 12 D Creatinine 1.04 H Glucose 89 Calcium 8.8 Cardiac Enzymes 07/11/25 Range/Units 15:59 Troponin I 0.030 (0.000-0.034) ng/mL Liver Function 07/11/25 Range/Units 15:59 Total Bilirubin 0.4 (0.2-1.3) mg/dL AST 38 H (14-36) U/L ALT 40 H (6-35) U/L Alkaline Phosphatase 55 (38-126) U/L Albumin 3.9 (3.5-5.1) g/dL Assessment and Plan Assessment and plan (1) Heart failure with reduced ejection fraction: Code(s): I50.20 - Unspecified systolic (congestive) heart failure Status: Acute Assessment and Plan: Echo on 04/22/2025 EF 45-50% Patient given Lasix in the ED Cardiology consulted Echo pending Patient was aggressively diuresed in the ED with great urine output, 20 mg of IV Lasix ordered tomorrow, no edema present, patient is no longer drooling (2) Bipolar disorder: Code(s): F31.9 - Bipolar disorder, unspecified Status: Chronic Assessment and Plan: Continue trazodone, venlafaxine and Klonopin (3) Hypertension: Qualifiers: Hypertension type: primary hypertension Qualified Code(s): I10 - Essential (primary) hypertension Code(s): I10 - Essential (primary) hypertension Status: Chronic Assessment and Plan: Hold antihypertensives while aggressively diuresing (4) Chronic kidney disease: Code(s): N18.9 - Chronic kidney disease, unspecified Status: Acute Assessment and Plan: At baseline BMP in the morning (5) Troponin I above reference range: Code(s): R79.89 - Other specified abnormal findings of blood chemistry Status: Acute Assessment and Plan: Likely due from hypoxia due to CHF, denies chest pain Aspirin Trend troponin still flat EKG Quality VTE Prophylaxis VTE prophylaxis: mechanical ordered and pharmacologic ordered Hospitalist MIPS Advance Care Plan I have confirmed that the patient's Advanced Care Plan is present, code status is documented, or surrogate decision maker is listed in patient medical record.: Yes Medication Reconciliation I have utilized all available resources to obtain, update and review the patients current medications (includes all prescriptions, OTC, herbals, cannabis, and nutritional supplements).: Yes
[2025-07-11 21:34] LABS: Troponin I 0.041 ng/mL (0.000-0.034)
--- NOTE | 2025-07-11 21:50 | ECG_ITS ---
Test Date: 2025-07-11 22:12:08 Measurements Intervals [place] Rate: 66 P: 29 DC: 132 QRS: -2 QRSD: 154 T: 93 QT: 493 QTc: 518 Interpretive Statements ELECTRONIC VENTRICULAR PACEMAKER ATYPICAL ECG Compared to ECG 07/11/2025 13:17:43 No significant changes Electronically Signed On 07-12-2025 08:30:49 MILIEU COUNSELOR by Leroy Seo M.D.
[2025-07-11] MEDS: METOCLOPRAMIDE HCL 5 MG TABLET PO (22:21)
[2025-07-11] MEDS: clonazePAM (*CRX) 0.5 MG TABLET PO (22:21)
[2025-07-11] MEDS: DONEPEZIL HCL 10 MG TABLET PO (22:21)
[2025-07-11] MEDS: ASPIRIN 325 MG ENTERIC TABLET PO (22:21)
[2025-07-11] MEDS: MIRTAZAPINE SOLTAB 15 MG TAB.DISPER PO (22:21)
--- NOTE | 2025-07-11 23:36 | ADMGEN ---
This patient, Yi Martino, was admitted to 2 Medical Room 260-. Patient/family oriented to hospital policies and general routines including ID bracelet, bed and alarms, visiting hours, pain management, procedures, bathroom and other care routines, personal items, smoking policy, room service/diet, and visiting hours. Information on how to activate the Rapid Response Team has been discussed. Patient/Family are encouraged to report perceived risks to care and to ask questions if they do not understand what they are told or what they should do.
[2025-07-12] VITALS (13 sets, daily range): BP systolic 111–131; BP diastolic 52–63; PULSE 58–66; RESP 19–20; TEMP 36.1–36.7; O2SAT 93–97
--- NOTE | 2025-07-12 | ECHO_ITS ---
Patient Info Name: Yi Martino Age: 79 years : 1945 Gender: Female Ht: 65 in Wt: 151 lbs BSA: 1.78 m2 HR: 61 bpm BP: 128 / 58 mmHg Heart Rhythm: Sinus Rhythm Technical Quality: Fair Exam Date: 07/12/2025 8:04 AM Patient Status: I Admit Date: 07/13/2025 Exam Type: CA echo limited w contrast Limited two-dimensional transthoracic echocardiogram is performed with contrast. Staff Referring Physician: Bigg Chirinos MD Charge Master Specialist: Caren Mcintosh Attending Provider: Vadim Saavedra Oca Contrast/Agitated Saline Contrast/Ag. Saline: Definity Amount: 2.00 ml Administered By: Caren Mcintosh Existing IV Access: Yes IV Access Condition: patent with no signs of infiltration Summary 1. Left ventricular chamber dimension is mildly enlarged. 2. Left ventricular systolic function is normal, estimated at 60-65. 3. There is mildly increased left ventricular wall thickness. 4. Left atrial chamber dimension is mildly enlarged. Left Ventricle Left ventricular chamber dimension is mildly enlarged. Left ventricular systolic function is normal, estimated at 60-65. There is mildly increased left ventricular wall thickness. Right Ventricle Right ventricular chamber dimension is normal. Right ventricular systolic function is normal. Left Atria Left atrial chamber dimension is mildly enlarged. Right Atria Right atrial chamber dimension is normal. Aortic Valve The aortic valve is not well visualized. There is trace aortic valve regurgitation. Pulmonic Valve The pulmonic valve is not well visualized. Mitral Valve The mitral valve has normal leaflets. There is no mitral valve stenosis. There is mild mitral valve regurgitation. Tricuspid Valve The tricuspid valve leaflets are normal. Pericardium/Pleural The pericardium appears normal. Aorta The aortic root size at the sinus of Valsalva is normal. Left Ventricular Outflow Tract Name Value Normal LVOT 2D LVOT Diameter 2.0 cm Aortic Valve Name Value Normal AV Regurgitation 2D LVOT Area 3.3 cm2 Ventricles Name Value Normal LV Dimensions 2D/MM IVS Diastolic Thickness (2D) 1.0 cm 0.6-1.0 LVID Diastole (2D) 5.2 cm 3.8-5.2 LVIW Diastolic Thickness (2D) 1.0 cm 0.6-0.9 LVID Systole (2D) 3.5 cm 2.2-3.5 LVOT Diameter 2.0 cm LV Mass (2D Cubed) 193.20 g 67.00-162.00 LV Mass Index (2D Cubed) 108 g/m2 43-95 Relative Wall Thickness (2D) 0.37 <=0.42 LV Fractional Shortening/Ejection Fraction 2D/MM LV Fractional Shortening (2D) 32 % 27-45 LV EF (2D Teichholz) 60 % LV Diastolic Volume (4C MOD) 121 ml LV EF (4C MOD) 67 % LV Diastolic Volume (2C MOD) 95 ml LV EF (2C MOD) 68 % LV Diastolic Volume (BP MOD) 109 ml 46-106 LV Diastolic Volume Index (BP MOD) 61 ml/m2 29-61 LV Systolic Volume (BP MOD) 35 ml 14-42 LV Systolic Volume Index (BP MOD) 20 ml/m2 8-24 LV EF (BP MOD) 68 % 54-74 LV Diastolic Length (4C) 8.2 cm LV Systolic Length (4C) 6.0 cm LV Stroke Volume (4C MOD) 81 ml Report Signatures Amended by Mary Olivia on 07/14/2025 11:20 AM Amended by Mary Olivia on 07/14/2025 11:18 AM
[2025-07-12 05:35] LABS: Hematocrit 36.9 % (37.0-47.0); Hemoglobin 11.3 g/dL (12.0-15.0); Immature Granulocyte Percent A 0.2 % (0-0.5); Lymphocytes Absolute Auto 2.48 K/mm3 (0.9-3.2); Mean Corpuscular HGB Conc 30.6 g/dl (32-36); Mean Corpuscular Hemoglobin 30.7 pg (26-34); Mean Corpuscular Volume 100.3 fl (80-100); Nucleated Red Blood Cells Absolute Auto 0.000 K/mm3 (0.0-0.012); Nucleated Red Blood Cells Perc 0.0 % (0.0-0.2); Platelet Count Result 202 k/mm3 (150-375); Red Blood Count 3.68 M/mm3 (4.2-5.4); White Blood Count 5.8 K/mm3 (4.5-10.0)
[2025-07-12 05:59] LABS: Anion Gap 8 mmol/L (4-12); Blood Urea Nitrogen 12 mg/dL (7-17); Calcium 8.4 mg/dL (8.4-10.2); Carbon Dioxide 30 mmol/L (22-30); Chloride 98 mmol/L (98-107); Estimated CRCL calculation 33 ml/min; Estimated Glomerular Filt Rate 48; Glucose 75 mg/dL (65-110); Potassium 3.1 mmol/L (3.4-5.0); Sodium 136 mmol/L (137-145)
[2025-07-12] MEDS: LEVOTHYROXINE SODIUM 150 MCG TABLET PO (05:59)
[2025-07-12] MEDS: METOCLOPRAMIDE HCL 5 MG TABLET PO ×4 (05:59→20:59)
[2025-07-12] MEDS: PERFLUTREN LIPID MICROSPHERES 1.5 ML VIAL DILUTED TO 10 ML TOTAL VOLUME IV PUSH (08:15)
[2025-07-12] MEDS: FUROSEMIDE INJ 40 MG/4 ML VIAL 20 MG IV PUSH (09:20)
[2025-07-12] MEDS: AMIODARONE HCL 200 MG TABLET PO (09:20)
[2025-07-12] MEDS: clonazePAM (*CRX) 0.5 MG TABLET PO ×3 (09:20→18:00)
[2025-07-12] MEDS: LOSARTAN POTASSIUM 50 MG TABLET PO (09:21)
[2025-07-12] MEDS: ACETAMINOPHEN 325 MG TABLET 650 MG PO ×2 (09:21→21:00)
[2025-07-12] MEDS: LORATADINE 10 MG TABLET PO (09:21)
[2025-07-12] MEDS: ROSUVASTATIN 20 MG TABLET 40 MG PO (09:21)
[2025-07-12] MEDS: SPIRONOLACTONE 25 MG TABLET PO (09:30)
[2025-07-12] MEDS: VENLAFAXINE HCL XR 37.5 MG CAP PO (09:36)
--- NOTE | 2025-07-12 09:47 | P.PNIM_ITS ---
Progress Note: A&P Assessment and Plan (1) Combined systolic and diastolic congestive heart failure: Code(s): I50.40 - Unspecified combined systolic (congestive) and diastolic (congestive) heart failure Status: Acute Assessment and Plan: Patient with history of combined systolic and diastolic heart failure previous EF was 20-25 last echo in showed an EF of 45-50%. Patient with extensive cardiac history and previous cardiac arrest. Troponin with mild bump likely ischemic demand type 2. BNP elevated but CXR showing no pulmonary congestion 1+ bilateral lower extremity edema. * Consult to Cardiology for any recommendations to optimize heart failure medications and evaluate troponin * Limited echocardiogram ordered * Resume patient's carvedilol, losartan, and spironolactone * IV Lasix 40 IV push * Strict and I&O's * Daily weight * Heart healthy diet (2) Hypertension: Qualifiers: Hypertension type: primary hypertension Qualified Code(s): I10 - Essential (primary) hypertension Code(s): I10 - Essential (primary) hypertension Status: Chronic Assessment and Plan: * Continued patient's carvedilol, hydralazine, and losartan * Monitor BP per unit protocol (3) Chronic kidney disease: Code(s): N18.9 - Chronic kidney disease, unspecified Status: Acute Assessment and Plan: CKD stage 3, baseline 0.1-1.2. 1.10 POA * Trend renal function during diuresis * Avoid nephrotoxic medications (4) Troponin I above reference range: Code(s): R79.89 - Other specified abnormal findings of blood chemistry Status: Acute Assessment and Plan: Patient had mild bump in troponin 0.041>0.039 trending down likely ischemic demand, Patient denied CP * Cardiology following likely no indication for any ischemic workup * ASA 324 given in ED * resumed her home Coumadin (5) CVA (cerebrovascular accident): Qualifiers: CVA mechanism: unspecified Qualified Code(s): I63.9 - Cerebral infarction, unspecified Code(s): I63.9 - Cerebral infarction, unspecified Status: Acute Assessment and Plan: Patient with previous HX of CVA 04/2025 seen by neurology is scheduled for MRI at [facility] * Resume patient's statin and Coumadin * Patient with pacemaker unable to perform MRI (6) Bipolar disorder: Code(s): F31.9 - Bipolar disorder, unspecified Status: Chronic Assessment and Plan: * Continue trazodone, venlafaxine and Klonopin (7) Chronic anticoagulation: Code(s): 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 * PT/OT for evaluation patient currently lives at with a friend uses a wheeled walker * Patient week and half ago hospitalized with UTI will repeat UA clearance Plan Code status: Full code per patient DVT prophylaxis: Coumadin Stress ulcer prophylaxis: NA PT/OT notes: PT/OT Evaluation Disposition: Patient was admitted to medical unit for further evaluation of generalized weakness continue to CHF exacerbation with a mild bump in troponins. Patient to be evaluated by Cardiology to optimize CHF medication. A PT/OT evaluation and UA are pending for further evaluation weakness patient currently lives at home spilled walker but has been unable to ambulate due to weakness need SNF/rehab at discharge. Time Spent With Patient Time with patient: 25 - 35 minutes Subjective Date/time seen: 07/12/25 09:47 Interval history: Patient is a 79-year-old female admitted for further evaluation treatment of acute on chronic congestive heart failure exacerbation with reduced ejection fraction. Patient reported generalized weakness at home and inability to ambulate due to swelling in her bilateral lower extremity and worsening weakness the last week. Patient was recently hospitalized 2 weeks prior for urinary tract infection CHF exacerbation. 07/12/2025: Patient states she has chronic left-sided weakness previous TIA/CVA has been scheduled for MRI at [facility] due to pacemaker but has been unable to get MRI done. Patient she still bilateral lower extremity in feels if she is able to ambulate on her own. Patient does endorse shortness of breath denies chest pain and generalized weakness. Patient troponin mildly bumped likely ischemic demand. Patient with previous history of CHF however appears she has not been seen by Cardiology, will consult for any recommendations to optimize patient's medications. Review of Systems Review of Systems: 12 systems were reviewed and are negativ e except for as per HPI. All systems reviewed & are unremarkable except as noted in HPI and below Exam Const: General: comfortable and no acute distress Other: Pleasant chronically ill looking female HENMT: Face/Nose/Sinus: Normal nares present Mouth: Yes moist mucous memb ranes Eyes: General: appearance normal, both eyes and all related structures Sclera: sclerae normal Pupils: Equal, round and reactive pupils present Neck: Neck: supple and no JVD Resp: Effort & Inspection: normal respiratory effort Auscultation: crackles bilateral (scant) in the lower lung quinones Cardio: Rate: regular rate Rhythm: regular rhythm Other: Pacemaker present GI: GI Palp: Yes Soft to palpation Auscultation: normal bowel sounds Neuro: Speech: normal speech Motor exam (neuro): Abnormal motor strength present (LLE weak from previous CVA) Extrem: General: edema (scant) bilateral Psych: Mental Status: mental status grossly normal Affect: normal affect Objective Data Vital Signs Vital Signs: Vital Signs - 24 hr 07/11/25 13:15 07/11/25 14:21 07/11/25 14:24 Temperature 98.2 F Pulse Rate 67 68 Respiratory Rate 16 24 H Blood Pressure 136/62 162/77 H Pulse Oximetry 96 96 Oxygen Delivery Room Air Room Air 07/11/25 14:31 07/11/25 15:16 07/11/25 15:31 Temperature Pulse Rate 68 63 62 Respiratory Rate 19 21 H 18 Blood Pressure 160/84 H 171/75 H 175/70 H Pulse Oximetry 94 97 98 Oxygen Delivery 07/11/25 15:46 07/11/25 16:01 07/11/25 16:06 Temperature Pulse Rate 66 72 67 Respiratory Rate 27 H 33 H 33 H Blood Pressure 162/90 H 172/120 H 160/86 H Pulse Oximetry 96 98 96 Oxygen Delivery 07/11/25 16:16 07/11/25 16:31 07/11/25 16:46 Temperature Pulse Rate 66 64 64 Respiratory Rate 29 H 23 H 31 H Blood Pressure 169/71 H 161/76 H 161/75 H Pulse Oximetry 95 95 93 Oxygen Delivery 07/11/25 17:01 07/11/25 17:31 07/11/25 19:05 Temperature Pulse Rate 76 73 67 Respiratory Rate 27 H 24 H 23 H Blood Pressure 171/71 H 162/65 H 151/78 H Pulse Oximetry 95 97 98 Oxygen Delivery 07/11/25 20:00 07/11/25 22:05 07/12/25 00:00 Temperature 97.0 F L 98.0 F Pulse Rate 68 61 Respiratory Rate 18 20 Blood Pressure 163/67 H 128/58 L Pulse Oximetry 96 93 Oxygen Delivery Room Air 07/12/25 00:00 07/12/25 04:00 07/12/25 04:00 Temperature 98.0 F Pulse Rate 60 61 60 Respiratory Rate 20 Blood Pressure 128/58 L Pulse Oximetry 93 Oxygen Delivery 07/12/25 04:47 07/12/25 09:16 07/12/25 09:20 Temperature 98.0 F Pulse Rate 61 66 66 Respiratory Rate 20 Blood Pressure 128/58 L 131/53 L Pulse Oximetry 93 97 Oxygen Delivery 07/12/25 09:20 Temperature Pulse Rate 66 Respiratory Rate Blood Pressure Pulse Oximetry Oxygen Delivery Intake/Output Intake/Output: Intake & Output 07/09/25 07/10/25 07/11/25 07/12/25 23:59 23:59 23:59 23:59 Intake Total 450 Output Total 0 700 Balance 0 -250 Meds/Results Medications: Active Medications Generic Name Dose Route Start Last Admin Trade Name Freq PRN Reason Stop Dose Admin Acetaminophen 650 mg 07/11/25 18:01 07/12/25 09:21 Acetaminophen 325 Mg Tablet PO 650 mg Q4H PRN Administration Mild Pain (1-3) or Fever Amiodarone HCl 200 mg 07/12/25 09:00 07/12/25 09:20 Amiodarone Hcl 200 Mg Tablet PO 200 mg DAILY STAN Administration Carvedilol 25 mg 07/12/25 09:00 07/12/25 09:20 Carvedilol 12.5 Mg Tablet PO 25 mg DAILY STAN Administration Clonazepam 0.5 mg 07/11/25 22:00 07/12/25 09:20 Clonazepam (*Crx) 0.5 Mg Tablet PO 0.5 mg TID STAN Administration Docusate Sodium 100 mg 07/11/25 18:13 Docusate Sodium 100 Mg Capsule PO BID PRN Constipation Donepezil HCl 10 mg 07/11/25 22:00 07/11/25 22:21 Donepezil Hcl 10 Mg Tablet PO 10 mg HS STAN Administration Furosemide 20 mg 07/12/25 09:00 07/12/25 09:20 Furosemide Inj 40 Mg/4 Ml Vial IV PUSH 20 mg DAILY STAN Administration Hydralazine HCl 10 mg 07/12/25 09:00 07/12/25 09:29 Hydralazine 10 Mg Tablet PO 10 mg BID STAN Administration Levothyroxine Sodium 150 mcg 07/12/25 06:30 07/12/25 05:59 Levothyroxine Sodium 150 Mcg Tablet PO 150 mcg DAILY@0630 [facility] Administration Loratadine 10 mg 07/12/25 09:00 07/12/25 09:21 Loratadine 10 Mg Tablet PO 10 mg QAM ST[facility] Administration Losartan Potassium 50 mg 07/12/25 09:00 07/12/25 09:21 Losartan Potassium 50 Mg Tablet PO 50 mg DAILY [facility] Administration Metoclopramide HCl 5 mg 07/11/25 22:05 07/12/25 05:59 Metoclopramide Hcl 5 Mg Tablet PO 5 mg ACHS STAN Administration Mirtazapine 15 mg 07/11/25 22:05 07/11/25 22:21 Mirtazapine Soltab 15 Mg Tab.Disper PO 15 mg HS STAN Administration Perflutren Lipid Microsphere 0 ml 07/12/25 09:46 Perflutren Lipid Microspheres 1.5 Ml Vial Diluted To 10 Ml Total Volume IV PUSH 07/15/25 09:47 ONCE PRN adequate visualization Protocol Rosuvastatin Calcium 40 mg 07/12/25 09:00 07/12/25 09:21 Rosuvastatin 20 Mg Tablet PO 40 mg DAILY STAN Administration Spironolactone 25 mg 07/12/25 09:00 07/12/25 09:30 Spironolactone 25 Mg Tablet PO 25 mg DAILY STAN Administration Trazodone HCl 150 mg 07/11/25 22:05 07/11/25 22:22 Trazodone Hcl 50 Mg Tablet PO 150 mg HS [facility] Administration Venlafaxine HCl 37.5 mg 07/12/25 09:00 07/12/25 09:36 Venlafaxine Hcl Xr 37.5 Mg Cap PO 37.5 mg DAILY STAN Administration Warfarin Sodium 2 mg 07/12/25 17:00 Warfarin (*Pbkc) 2 Mg Tablet PO DAILY@1700 [facility] Radiology Results: ITS Impressions Chest X-Ray 07/11/25 14:16 Impression: No acute cardiopulmonary abnormality. Labs Labs: Laboratory Results - last 24 hr 07/11/25 07/11/25 07/11/25 14:33 15:59 21:04 WBC 7.3 RBC 3.92 L Hgb 12.0 Hct 38.5 MCV 98.2 MCH 30.6 MCHC 31.2 L RDW 14.8 H Plt Count 229 MPV 9.7 Immature Gran % (Auto) 0.1 Neut % (Auto) 64.9 Lymph % (Auto) 24.4 [place] % (Auto) 10.1 H Eos % (Auto) 0.1 Baso % (Auto) 0.4 Lymph # (Auto) 1.79 [place] # (Auto) 0.7 H Eos # (Auto) 0.0 Baso # (Auto) 0.0 Abs Immat Gran (auto) 0.01 Absolute Neuts (auto) 4.8 Absolute Nucleated RBC 0.000 Nucleated RBC % 0.0 PT 29.8 H INR 2.9 APTT 31.2 Sodium 136 L Potassium 3.7 Chloride 102 Carbon Dioxide 29 Anion Gap 5 BUN 12 D Creatinine 1.04 H Estim Creat Clear Calc 35 Estimated GFR 51 L Glucose 89 Calcium 8.8 Total Bilirubin 0.4 AST 38 H ALT 40 H Alkaline Phosphatase 55 Troponin I 0.030 0.041 H* D NT-Pro-B Natriuret Pep 1780 H Total Protein 7.0 Albumin 3.9 07/12/25 04:53 WBC 5.8 RBC 3.68 L Hgb 11.3 L Hct 36.9 L MCV 100.3 H MCH 30.7 MCHC 30.6 L RDW 14.7 H Plt Count 202 MPV 10.0 Immature Gran % (Auto) 0.2 Neut % (Auto) 40.9 L Lymph % (Auto) 43.1 [place] % (Auto) 14.4 H Eos % (Auto) 0.7 Baso % (Auto) 0.7 Lymph # (Auto) 2.48 [place] # (Auto) 0.8 H Eos # (Auto) 0.0 Baso # (Auto) 0.0 Abs Immat Gran (auto) 0.01 Absolute Neuts (auto) 2.4 Absolute Nucleated RBC 0.000 Nucleated RBC % 0.0 PT INR APTT Sodium 136 L Potassium 3.1 L Chloride 98 Carbon Dioxide 30 Anion Gap 8 BUN 12 Creatinine 1.10 H Estim Creat Clear Calc 33 Estimated GFR 48 L Glucose 75 Calcium 8.4 Total Bilirubin AST ALT Alkaline Phosphatase Troponin I NT-Pro-B Natriuret Pep Total Protein Albumin Quality VTE Prophylaxis VTE prophylaxis: mechanical ordered and pharmacologic ordered -Patient's previous records reviewed on admission -ER notes reviewed in detail on admission -discussed all findings and current treatment plan with patient/Family/POA -Consultations reviewed for recommendations -Patient's disposition for safe discharge discussed with shelter case manager -radiology imaging, EKG and test results I have personally reviewed and interpreted unless otherwise specified Dictation performed by [employer] direct speech recognition software, therefore ip counsel variants and typographical errors may occur. Hospitalist MIPS Advance Care Plan I have confirmed that the patient's Advanced Care Plan is present, code status is documented, or surrogate decision maker is listed in patient medical record.: Yes Medication Reconciliation I have utilized all available resources to obtain, update and review the patients current medications (includes all prescriptions, OTC, herbals, cannabis, and nutritional supplements).: Yes The patient is not eligible for med reconciliation; the patient is in a emergent medical situation where delaying treatment would jeopardize the patients health.: No
[2025-07-12 09:48] LABS: Troponin I 0.039 ng/mL (0.000-0.034)
--- NOTE | 2025-07-12 10:32 | IVDEFINITY ---
Prior to administration of IV Definity the patient was educated on the risks and benefits of the imaging enhancing agent including potential adverse side effects. The patient verbalized understanding. Allergies were verified. No exclusion criteria were identified and at least one of the following inclusion criteria were met: 1) physician request, 2) patient technically difficult to image (per the [place] [employer] guidelines of two or more segments not discernable within the apical view), or 3) questionable left ventricular function. ?
[2025-07-12] MEDS: POTASSIUM CHLORIDE 20 MEQ PACKET (FOR LIQUID) 40 MEQ PO (12:17)
[2025-07-12 14:47] LABS: Add Urine Microscopic? YES; Appearance Urine Cloudy (Clear); Glucose Urine UA Negative (Negative); Leukocyte Esterase Ur 3+ LEU/UL (Negative); Nitrate Urine Negative (Negative); Non Pathogenic Casts 0-2; Specific Grav Ur 1.008 (1.001-1.035)
--- NOTE | 2025-07-12 15:24 | PM.CNCAR ---
Assessment and Plan Assessment and plan (1) Acute exacerbation of CHF (congestive heart failure): Code(s): I50.9 - Heart failure, unspecified Status: Acute Assessment and Plan: ACUTE ON CHRONIC SYSTOLIC. LIKELY SECONDARY TO SOME MISSED DOSES OF FUROSEMIDE PER PATIENT. CONTINUE CARVEDILOL, LOSARTAN, SPIRONOLACTONE. UNCERTAIN TO WHY HER CARVEDILOL DOSING IS ON ONCE DAILY. WILL CHANGE IT TO 25 MG P.O. B.I.D.. WILL ALSO ADD JARDIANCE 10 MG DAILY. CONTINUE IV FUROSEMIDE 40 MG DAILY FOR NOW. LIKELY TRANSITIONAL ORAL LASIX TOMORROW. ECHOCARDIOGRAM IS ORDERED AND PENDING. POTASSIUM IS LOW AT 3.3. REPLACE WITH KCL 40 MEQ P.O. X1. FOLLOW ELECTROLYTES (2) Elevated troponin: Code(s): R77.8 - Other specified abnormalities of plasma proteins Status: Acute Assessment and Plan: RELATED TO CHF AND NOT SECONDARY TO ACUTE PLAQUE RUPTURE. NO FURTHER TROPONINS ARE NEEDED TO BE DRAWN A LESSER IS A CHANGE IN SYMPTOMS (3) Cardiomyopathy: Code(s): I42.9 - Cardiomyopathy, unspecified Status: Chronic Assessment and Plan: PREVIOUSLY SEVERE. HISTORY OF CARDIAC ARREST. STATUS POST ICD (4) Hypertension: Qualifiers: Hypertension type: primary hypertension Qualified Code(s): I10 - Essential (primary) hypertension Code(s): I10 - Essential (primary) hypertension Status: Chronic Assessment and Plan: ABOVE GOAL THROUGHOUT MOST OF THE DAY. INCREASING CARVEDILOL TO B.I.D. DOSING. CONTINUE OTHER MEDS (5) Chronic anticoagulation: Code(s): Z79.01 - detention (current) use of anticoagulants Status: Acute Assessment and Plan: NO BLEEDING ISSUES History of Present Illness History of Present Illness Consult date/time: 07/12/25 15:24 Requesting physician: Kayla Lenz, [employer] Consult reason: congestive heart failure Reason For Visit: CHF Narrative: REASON FOR CONSULTATION: CHF, ELEVATED TROPONINS, REDUCED EF DATE OF SERVICE 07/12/2025 REQUESTING PROVIDER: KAYLA LENZ HISTORY: PATIENT IS AN 79-YEAR-OLD FEMALE WITH A KNOWN HISTORY OF CARDIOMYOPATHY. FOLLOWS WITH DR. MORE. SHE PRESENTED TO THE HOSPITAL WITH 3 DAY WORSENING HISTORY OF SHORTNESS OF BREATH. SHE ALSO STATES THAT SHE HAS BEEN MORE EDEMATOUS. SHE THINKS THAT SHE MAY HAVE MISSED SOME DOSES OF LASIX. OTHERWISE SHE DENIES ANY SYNCOPE, PRESYNCOPE, PAROXYSMAL NOCTURNAL DYSPNEA, ORTHOPNEA, PALPITATIONS, CHEST PAIN. SHE HAS BEEN STARTED ON DIURETICS AND HAS ALREADY FEELING BETTER. SHE IS LESS SHORT OF BREATH TODAY. Review of Systems Review of Systems: All systems reviewed & are unremarkable except as noted in HPI and below Constitutional: Constitutional: Denies body ache(s) Eyes: Eyes: Denies blurry vision ENT: Reports Normal hearing present Cardiovascular: Cardiovascular: Denies chest pain and Reports leg edema Respiratory: Respiratory: Denies hemoptysis Gastrointestinal: Gastrointestinal: Denies abdominal pain Genitourinary: Genitourinary: Denies hematuria Musculoskeletal: Musculoskeletal: Denies back pain Integumentary/Breasts: Skin/Breast: Denies dry skin Neurologic: Denies Abnormal speech present Psychiatric: Psychiatric: Denies behavioral changes Endocrine: Endocrine: Denies excessive sweating Hematologic/Lymphatic: Hematologic/Lymphatic: Denies easy bleeding Allergic/Immunologic: Allergic/Immunologic: Denies GI upset with certain foods PMFSH Past Medical History Medical History Chronic anticoagulation Transient ischemic attack Gastroesophageal reflux disease Chronic kidney disease Depression with anxiety Deep venous thrombosis Heart failure with reduced ejection fraction EF was 20 to 25% in March 2021. Left bundle branch block Hyperlipidemia Hypertension Hypothyroidism Cardiomyopathy Bipolar disorder Surgical History Surgical History History of colon resection History of bilateral knee arthroplasty History of repair of left rotator cuff History of bladder suspension procedure History of tonsillectomy History of cardiac catheterization History of partial hysterectomy History of orthopedic surgery Family History Family History Father Hypertension Cerebrovascular accident Mother Family history of diabetes mellitus in first degree relative Family history of lung disease Family history of coronary artery disease Sibling Family history of diabetes mellitus in first degree relative Cardiomyopathy Son Family history of mental disorder Other Family history of alcoholism Family history of arthritis Family history of gout Social History Social History Social History: Surrogate medical decision maker: Man Linton, sibling. Code status: Full code. Smoking status: Never smoker Second hand tobacco smoke exposure: No Alcohol intake: never Substance use: never Substance use type: does not use Do You Feel Safe in your Home?: Yes Lack of Transportation: No Lack of Food: Never True Current Housing: I Have Housing Concerned About Future Housing: No Difficulty Paying Gas/Electric Bills: No Difficulty Paying for Meds: No Currently Unemployed: No Education: Decline to Answer Difficulty w/ Childcare or Family Care: No Living arrangements: with roommate(s) Additional living arrangements comments: . Has 1 child. Additional occupation/education comments: Retired from the [employer]. Spiritual care concerns: No Meds Home Medications and Allergies Home Medications ?Medication ?Instructions ?Recorded ?Confirmed ?Type trazodone 150 mg tablet 150 mg PO HS 03/22/21 07/11/25 History venlafaxine 37.5 mg 37.5 mg PO DAILY 08/22/22 07/11/25 History capsule,extended release 24 hr (Effexor XR) rosuvastatin 40 mg tablet 40 mg PO DAILY 12/27/23 07/11/25 History amiodarone 200 mg tablet 200 mg PO DAILY 01/02/24 07/11/25 History clonazepam 0.5 mg tablet 0.5 mg PO TID 01/02/24 07/11/25 History levothyroxine 150 mcg tablet 150 mcg PO DAILY 01/02/24 07/11/25 History carvedilol 12.5 mg tablet 25 mg PO DAILY 12/24/24 07/11/25 History cyanocobalamin (vitamin B-12) 1,000 mcg subcut MONTHLY 03/25/25 07/11/25 History 1,000 mcg/mL injection solution donepezil 10 mg tablet 10 mg PO HS 03/25/25 07/11/25 History furosemide 40 mg tablet 40 mg PO 3XW 03/25/25 07/11/25 History spironolactone 25 mg tablet 25 mg PO DAILY 03/25/25 07/11/25 History acetaminophen 650 mg 650 mg PO Q8H PRN pain 05/20/25 07/11/25 History tablet,extended release (8 Hour Pain Reliever) hydralazine 10 mg tablet 10 mg PO BID #60 tabs 05/30/25 07/11/25 Rx loratadine 10 mg tablet 10 mg PO QAM #30 tabs 05/30/25 07/11/25 Rx metoclopramide HCl 5 mg tablet 5 mg PO ACHS #120 tabs 05/30/25 07/11/25 Rx ondansetron 4 mg disintegrating 8 mg (2 x 4 mg) PO Q12H PRN nausea 05/30/25 07/11/25 Rx tablet and vomiting #30 tabs losartan 50 mg tablet 50 mg PO DAILY 07/11/25 07/11/25 History mirtazapine 15 mg disintegrating 15 mg PO HS 07/11/25 07/11/25 History tablet warfarin 2 mg tablet 1 mg PO .saturdays and Monday07/11/25 07/11/25 History Allergies Allergy/AdvReac Type Severity Reaction Status Date / Time codeine Allergy Unknown Unknown Verified 06/22/25 18:17 hydroxyzine Allergy Unknown Unknown Verified 06/22/25 18:17 lorazepam Allergy Unknown Unknown Verified 06/22/25 18:17 tramadol Allergy Unknown Unknown Verified 06/22/25 18:17 NSAIDS (Non-Steroidal AdvReac Unknown Nausea Verified 06/22/25 18:17 Anti-Inflamma sumatriptan AdvReac Unknown FELT Verified 06/22/25 18:17 HORRIBLE Vital Signs Vital Signs - 24 hr 07/11/25 15:31 07/11/25 15:46 07/11/25 16:01 Temperature Pulse Rate 62 66 72 Respiratory Rate 18 27 H 33 H Blood Pressure 175/70 H 162/90 H 172/120 H Pulse Oximetry 98 96 98 Oxygen Delivery 07/11/25 16:06 07/11/25 16:16 07/11/25 16:31 Temperature Pulse Rate 67 66 64 Respiratory Rate 33 H 29 H 23 H Blood Pressure 160/86 H 169/71 H 161/76 H Pulse Oximetry 96 95 95 Oxygen Delivery 07/11/25 16:46 07/11/25 17:01 07/11/25 17:31 Temperature Pulse Rate 64 76 73 Respiratory Rate 31 H 27 H 24 H Blood Pressure 161/75 H 171/71 H 162/65 H Pulse Oximetry 93 95 97 Oxygen Delivery 07/11/25 19:05 07/11/25 20:00 07/11/25 22:05 Temperature 36.1 C L Pulse Rate 67 68 Respiratory Rate 23 H 18 Blood Pressure 151/78 H 163/67 H Pulse Oximetry 98 96 Oxygen Delivery Room Air 07/12/25 00:00 07/12/25 00:00 07/12/25 04:00 Temperature 36.7 C 36.7 C Pulse Rate 61 60 61 Respiratory Rate 20 20 Blood Pressure 128/58 L 128/58 L Pulse Oximetry 93 93 Oxygen Delivery 07/12/25 04:00 07/12/25 04:47 07/12/25 08:00 Temperature 36.7 C Pulse Rate 60 61 Respiratory Rate 20 Blood Pressure 128/58 L Pulse Oximetry 93 Oxygen Delivery Room Air 07/12/25 08:00 07/12/25 09:16 07/12/25 09:20 Temperature Pulse Rate 60 66 66 Respiratory Rate Blood Pressure 131/53 L Pulse Oximetry 97 Oxygen Delivery 07/12/25 09:20 07/12/25 11:54 07/12/25 14:32 Temperature Pulse Rate 66 Respiratory Rate Blood Pressure Pulse Oximetry 95 Oxygen Delivery Room Air Room Air 07/12/25 15:08 Temperature 36.3 C L Pulse Rate 58 L Respiratory Rate 19 Blood Pressure 111/60 Pulse Oximetry 96 Oxygen Delivery Exam Narrative: AWAKE ALERT AND ORIENTED APPEARS STATED AGE Const: General: comfortable and no acute distress HENMT: Face/Nose/Sinus: Normal nares present Mouth: Yes moist mucous membranes Eyes: General: appearance normal, both eyes and all related structures Sclera: sclerae normal Neck: Neck: supple and no JVD Chest: Other: NO REPRODUCIBLE CHEST WALL PAIN TO PALPATION Resp: Effort & Inspection: normal respiratory effort Auscultation: clear to auscultation bilaterally Cardio: Rate: regular rate Rhythm: regular rhythm Heart sounds: no murmurs GI: Inspection: non-distended GI Palp: Yes Soft to palpation Auscultation: normal bowel sounds Skin: General skin exam: normal color Neuro: Speech: normal speech Sensory Exam: normal sensation Extrem: General: normal to inspection Psych: Mental Status: mental status grossly normal Affect: normal affect Results Labs and Meds 07/12/25 04:53 07/12/25 04:53 Lab results: Cardiac Enzymes 07/11/25 07/11/25 07/12/25 Range/Units 15:59 21:04 04:53 AST 38 H (14-36) U/L Troponin I 0.030 0.041 H* D 0.039 H* (0.000-0.034) ng/mL CBC 07/12/25 Range/Units 04:53 WBC 5.8 (4.5-10.0) K/mm3 RBC 3.68 L (4.2-5.4) M/mm3 Hgb 11.3 L (12.0-15.0) g/dL Hct 36.9 L (37.0-47.0) % Plt Count 202 (150-375) k/mm3 Lymph # (Auto) 2.48 (0.9-3.2) K/mm3 [place] # (Auto) 0.8 H (0.1-0.6) K/mm3 Eos # (Auto) 0.0 (0-0.3) K/mm3 Baso # (Auto) 0.0 (0.0-0.1) K/mm3 Comprehensive Metabolic Panel 07/11/25 07/12/25 Range/Units 15:59 04:53 Sodium 136 L 136 L (137-145) mmol/L Potassium 3.7 3.1 L (3.4-5.0) mmol/L Chloride 102 98 (98-107) mmol/L Carbon Dioxide 29 30 (22-30) mmol/L BUN 12 D 12 (7-17) mg/dL Creatinine 1.04 H 1.10 H (0.7-1.0) mg/dL Glucose 89 75 (65-110) mg/dL Calcium 8.8 8.4 (8.4-10.2) mg/dL AST 38 H (14-36) U/L ALT 40 H (6-35) U/L Alkaline Phosphatase 55 (38-126) U/L Total Protein 7.0 (6.3-8.2) g/dL Albumin 3.9 (3.5-5.1) g/dL Intake and Output 07/11/25 07/12/25 07/12/25 23:59 07:59 15:59 Intake Total 120 570 Output Total 0 700 300 Balance 0 -580 270 Intake: Oral 120 570 Output: Urine 0 700 Catheter Urine 300 External/Condom 300 EKG PERSONALLY REVIEWED AND INDEPENDENTLY INTERPRETED SHOWING VENTRICULAR PACING
[2025-07-12] MEDS: DONEPEZIL HCL 10 MG TABLET PO (20:59)
[2025-07-12] MEDS: MIRTAZAPINE SOLTAB 15 MG TAB.DISPER PO (21:00)
[2025-07-13] VITALS (11 sets, daily range): BP systolic 100–146; BP diastolic 50–99; PULSE 60–66; RESP 16–20; TEMP 36.2–36.5; O2SAT 91–96
[2025-07-13] MEDS: METOCLOPRAMIDE HCL 5 MG TABLET PO ×4 (05:46→21:10)
[2025-07-13] MEDS: LEVOTHYROXINE SODIUM 150 MCG TABLET PO (05:46)
[2025-07-13 05:51] LABS: INR 2.7; Prothrombin Time 28.3 Seconds (11.1-14.7)
[2025-07-13] MEDS: cefTRIAXone 1 GM in SODIUM CHLORIDE 0.9% IV 50 ML 100 ML IVPB (08:22)
[2025-07-13 08:23] LABS: Hematocrit 37.5 % (37.0-47.0); Hemoglobin 11.3 g/dL (12.0-15.0); Mean Corpuscular HGB Conc 30.1 g/dl (32-36); Mean Corpuscular Hemoglobin 30.5 pg (26-34); Mean Corpuscular Volume 101.1 fl (80-100); Platelet Count Result 197 k/mm3 (150-375); Red Blood Count 3.71 M/mm3 (4.2-5.4); White Blood Count 5.8 K/mm3 (4.5-10.0)
[2025-07-13 08:38] LABS: Alanine Aminotransferase 30 U/L (6-35); Albumin Level 3.4 g/dL (3.5-5.1); Alkaline Phosphatase 44 U/L (38-126); Anion Gap 4 mmol/L (4-12); Aspartate Amino Transferase 37 U/L (14-36); Bilirubin,Total 0.3 mg/dL (0.2-1.3); Blood Urea Nitrogen 26 mg/dL (7-17); Calcium 8.5 mg/dL (8.4-10.2); Carbon Dioxide 32 mmol/L (22-30); Chloride 99 mmol/L (98-107); Estimated CRCL calculation 22 ml/min; Estimated Glomerular Filt Rate 29; Glucose 83 mg/dL (65-110); Magnesium 2.2 mg/dL (1.6-2.3); Potassium 3.8 mmol/L (3.4-5.0); Sodium 135 mmol/L (137-145); Total Protein 6.4 g/dL (6.3-8.2)
[2025-07-13] MEDS: AMIODARONE HCL 200 MG TABLET PO (09:24)
[2025-07-13] MEDS: EMPAGLIFLOZIN 10 MG TABLET PO (09:25)
[2025-07-13] MEDS: clonazePAM (*CRX) 0.5 MG TABLET PO ×3 (09:25→17:38)
[2025-07-13] MEDS: FUROSEMIDE INJ 40 MG/4 ML VIAL IV PUSH (09:25)
[2025-07-13] MEDS: VENLAFAXINE HCL XR 37.5 MG CAP PO (09:26)
[2025-07-13] MEDS: ROSUVASTATIN 20 MG TABLET 40 MG PO (09:26)
[2025-07-13] MEDS: LORATADINE 10 MG TABLET PO (09:26)
[2025-07-13] MEDS: SPIRONOLACTONE 25 MG TABLET PO (09:26)
[2025-07-13] MEDS: LOSARTAN POTASSIUM 50 MG TABLET PO (09:26)
--- NOTE | 2025-07-13 09:51 | P.PNCA_ITS ---
Progress Note: A&P Assessment and Plan (1) Acute exacerbation of CHF (congestive heart failure): Code(s): I50.9 - Heart failure, unspecified Status: Acute Assessment and Plan: ACUTE ON CHRONIC SYSTOLIC. Pre creatinine did jump up today. Will stop her IV furosemide. Will start daily lower dose furosemide starting tomorrow at 10 mg p.o. daily. Continue carvedilol, losartan, spironolactone and carvedilol. (2) Elevated troponin: Code(s): R77.8 - Other specified abnormalities of plasma proteins Status: Acute Assessment and Plan: RELATED TO CHF AND NOT SECONDARY TO ACUTE PLAQUE RUPTURE. NO FURTHER TROPONINS ARE NEEDED TO BE DRAWN A LESSER IS A CHANGE IN SYMPTOMS (3) Cardiomyopathy: Code(s): I42.9 - Cardiomyopathy, unspecified Status: Chronic Assessment and Plan: PREVIOUSLY SEVERE. HISTORY OF CARDIAC ARREST. STATUS POST ICD (4) Hypertension: Qualifiers: Hypertension type: primary hypertension Qualified Code(s): I10 - Essential (primary) hypertension Code(s): I10 - Essential (primary) hypertension Status: Chronic Assessment and Plan: Continue carvedilol and other meds without change (5) Chronic anticoagulation: Code(s): Z79.01 - intermediate (current) use of anticoagulants Status: Acute Assessment and Plan: NO BLEEDING ISSUES. INRs therapeutic Subjective Date/time seen: 07/13/25 09:51 Interval history: Patient is a 79-year-old female admitted for further evaluation treatment of acute on chronic congestive heart failure exacerbation with reduced ejection fraction. Patient reported generalized weakness at home and inability to ambulate due to swelling in her bilateral lower extremity and worsening weakness the last week. Patient was recently hospitalized 2 weeks prior for urinary tract infection CHF exacerbation. Date of service 07/13/2025: Not having any chest pain. Shortness breath is better. No edema Review of Systems Review of Systems: All systems reviewed & are unremarkable except as noted in HPI and below Constitutional: Constitutional: Denies body ache(s) and Denies excessive sweating Eyes: Eyes: Denies blurry vision ENT: Reports Normal hearing present Cardiovascular: Cardiovascular: Denies chest pain and Reports leg edema Respiratory: Respiratory: Denies hemoptysis Gastrointestinal: Gastrointestinal: Denies abdominal pain Genitourinary: Genitourinary: Denies hematuria Musculoskeletal: Musculoskeletal: Denies back pain Integumentary/Breasts: Skin/Breast: Denies dry skin Neurologic: Reports Normal hearing present, Denies Abnormal speech present and Denies behavioral changes Psychiatric: Psychiatric: Denies behavioral changes Endocrine: Endocrine: Denies excessive sweating Hematologic/Lymphatic: Hematologic/Lymphatic: Denies easy bleeding Allergic/Immunologic: Allergic/Immunologic: Denies GI upset with certain foods Exam Narrative: AWAKE ALERT AND ORIENTED APPEARS STATED AGE Const: General: comfortable and no acute distress HENMT: Face/Nose/Sinus: Normal nares present Mouth: Yes moist mucous membranes Eyes: General: appearance normal, both eyes and all related structures Sclera: sclerae normal Neck: Neck: supple and no JVD Chest: Other: NO REPRODUCIBLE CHEST WALL PAIN TO PALPATION Resp: Effort & Inspection: normal respiratory effort Auscultation: clear to auscultation bilaterally Cardio: Rate: regular rate Rhythm: regular rhythm Heart sounds: no murmurs GI: Inspection: non-distended Auscultation: normal bowel sounds Skin: General skin exam: normal color Neuro: Cranial nerves: Yes Normal hearing present Speech: normal speech and No Abnormal speech present Sensory Exam: normal sensation Extrem: General: normal to inspection Psych: Mental Status: mental status grossly normal Affect: normal affect Objective Data Vital Signs Vital Signs: Vital Signs - 24 hr 07/12/25 11:54 07/12/25 12:00 07/12/25 14:32 Temperature Pulse Rate 60 Respiratory Rate Blood Pressure Pulse Oximetry 95 Oxygen Delivery Room Air Room Air 07/12/25 15:08 07/12/25 16:00 07/12/25 17:58 Temperature 36.3 C L Pulse Rate 58 L 60 60 Respiratory Rate 19 Blood Pressure 111/60 129/63 Pulse Oximetry 96 96 Oxygen Delivery 07/12/25 20:00 07/12/25 20:00 07/12/25 20:00 Temperature 36.1 C L Pulse Rate 60 60 Respiratory Rate 20 Blood Pressure 111/52 L Pulse Oximetry 94 94 Oxygen Delivery Room Air 07/12/25 20:59 07/13/25 00:00 07/13/25 00:00 Temperature 36.3 C L Pulse Rate 60 60 60 Respiratory Rate 20 Blood Pressure 116/52 L Pulse Oximetry 94 Oxygen Delivery 07/13/25 04:00 07/13/25 04:00 07/13/25 08:00 Temperature 36.2 C L 36.5 C Pulse Rate 60 60 60 Respiratory Rate 20 16 Blood Pressure 100/50 L 131/99 H Pulse Oximetry 91 93 Oxygen Delivery 07/13/25 09:24 07/13/25 09:25 Temperature Pulse Rate 60 60 Respiratory Rate Blood Pressure Pulse Oximetry Oxygen Delivery Intake/Output Intake/Output: Intake & Output 07/10/25 07/11/25 07/12/25 07/13/25 23:59 23:59 23:59 23:59 Intake Total 930 340 Output Total 0 1000 200 Balance 0 -70 140 Meds/Results Medications: Active Medications Generic Name Dose Route Start Last Admin Trade Name Freq PRN Reason Stop Dose Admin Acetaminophen 650 mg 07/11/25 18:01 07/12/25 21:00 Acetaminophen 325 Mg Tablet PO 650 mg Q4H PRN Administration Mild Pain (1-3) or Fever Amiodarone HCl 200 mg 07/12/25 09:00 07/13/25 09:24 Amiodarone Hcl 200 Mg Tablet PO 200 mg DAILY STAN Administration Carvedilol 25 mg 07/12/25 21:00 07/13/25 09:25 Carvedilol 25 Mg Tablet PO 25 mg Q12HR STAN Administration Clonazepam 0.5 mg 07/11/25 22:00 07/13/25 09:25 Clonazepam (*Crx) 0.5 Mg Tablet PO 0.5 mg TID STAN Administration Docusate Sodium 100 mg 07/11/25 18:13 Docusate Sodium 100 Mg Capsule PO BID PRN Constipation Donepezil HCl 10 mg 07/11/25 22:00 07/12/25 20:59 Donepezil Hcl 10 Mg Tablet PO 10 mg HS STAN Administration Empagliflozin 10 mg 07/13/25 09:00 07/13/25 09:25 Empagliflozin 10 Mg Tablet PO 10 mg DAILY STAN Administration Hydralazine HCl 10 mg 07/12/25 09:00 07/13/25 09:25 Hydralazine 10 Mg Tablet PO 10 mg BID STAN Administration Ceftriaxone Sodium 1 gm/ 50 mls @ 100 mls/hr 07/13/25 08:00 07/13/25 08:22 Sodium Chloride IVPB 100 mls/hr Q24H STAN Administration Levothyroxine Sodium 150 mcg 07/12/25 06:30 07/13/25 05:46 Levothyroxine Sodium 150 Mcg Tablet PO 150 mcg DAILY@0630 [facility] Administration Loratadine 10 mg 07/12/25 09:00 07/13/25 09:26 Loratadine 10 Mg Tablet PO 10 mg QAM STAN Administration Losartan Potassium 50 mg 07/12/25 09:00 07/13/25 09:26 Losartan Potassium 50 Mg Tablet PO 50 mg DAILY STAN Administration Metoclopramide HCl 5 mg 07/11/25 22:05 07/13/25 05:46 Metoclopramide Hcl 5 Mg Tablet PO 5 mg ACHS STAN Administration Mirtazapine 15 mg 07/11/25 22:05 07/12/25 21:00 Mirtazapine Soltab 15 Mg Tab.Disper PO 15 mg HS STAN Administration Rosuvastatin Calcium 40 mg 07/12/25 09:00 07/13/25 09:26 Rosuvastatin 20 Mg Tablet PO 40 mg DAILY STAN Administration Spironolactone 25 mg 07/12/25 09:00 07/13/25 09:26 Spironolactone 25 Mg Tablet PO 25 mg DAILY STAN Administration Trazodone HCl 150 mg 07/11/25 22:05 07/12/25 21:00 Trazodone Hcl 50 Mg Tablet PO 150 mg HS [facility] Administration Venlafaxine HCl 37.5 mg 07/12/25 09:00 07/13/25 09:26 Venlafaxine Hcl Xr 37.5 Mg Cap PO 37.5 mg DAILY STAN Administration Warfarin Sodium 2 mg 07/12/25 17:00 07/12/25 18:20 Warfarin (*Pbkc) 2 Mg Tablet PO Not Given DAILY@1700 [facility] Radiology Results: ITS Impressions Chest X-Ray 07/11/25 14:16 Impression: No acute cardiopulmonary abnormality. Labs Labs: Laboratory Results - last 24 hr 07/12/25 07/13/25 14:30 04:37 WBC 5.8 RBC 3.71 L Hgb 11.3 L Hct 37.5 MCV 101.1 H MCH 30.5 MCHC 30.1 L RDW 14.8 H Plt Count 197 MPV 10.5 H PT 28.3 H INR 2.7 Sodium 135 L Potassium 3.8 Chloride 99 Carbon Dioxide 32 H Anion Gap 4 BUN 26 H D Creatinine 1.72 H Estim Creat Clear Calc 22 Estimated GFR 29 L Glucose 83 Calcium 8.5 Magnesium 2.2 Total Bilirubin 0.3 AST 37 H ALT 30 Alkaline Phosphatase 44 Total Protein 6.4 Albumin 3.4 L Urine Color Yellow Urine Appearance Cloudy H Urine pH 5.5 Ur Specific Chrisman 1.008 Urine Protein Negative Urine Glucose (UA) Negative Urine Ketones Negative Ur Blood (Man) Negative Urine Nitrate Negative Urine Bilirubin Negative Urine Urobilinogen 0.2 Leukocyte Esterase Rfl 3+ H Urine RBC 0-2 Urine WBC >100 H Ur Squamous Epith Cells None seen Urine Bacteria 4+ H Urine Casts 0-2
--- NOTE | 2025-07-13 12:18 | P.PNIM_ITS ---
Progress Note: A&P Assessment and Plan (1) Combined systolic and diastolic congestive heart failure: Code(s): I50.40 - Unspecified combined systolic (congestive) and diastolic (congestive) heart failure Status: Acute Assessment and Plan: Patient with history of combined systolic and diastolic heart failure previous EF was 20-25 last echo in showed an EF of 45-50%. Patient with extensive cardiac history and previous cardiac arrest. Troponin with mild bump likely ischemic demand type 2. BNP elevated but CXR showing no pulmonary congestion 1+ bilateral lower extremity edema. * Consult to Cardiology for any recommendations to optimize heart failure medications and evaluate troponin * Limited echocardiogram ordered * Resume patient's carvedilol, losartan, and spironolactone * IV Lasix 40 stopped Cr. bumped cardiology plans to transition to low-dose p.o. Lasix tomorrow * Strict and I&O's * Daily weight * Heart healthy diet (2) Hypertension: Qualifiers: Hypertension type: primary hypertension Qualified Code(s): I10 - Essential (primary) hypertension Code(s): I10 - Essential (primary) hypertension Status: Chronic Assessment and Plan: * Continued patient's carvedilol, hydralazine, and losartan * Monitor BP per unit protocol (3) Chronic kidney disease: Code(s): N18.9 - Chronic kidney disease, unspecified Status: Acute Assessment and Plan: CKD stage 3, baseline 0.1-1.2. 1.10 POA * Trend renal function during diuresis * Avoid nephrotoxic medications (4) Troponin I above reference range: Code(s): R79.89 - Other specified abnormal findings of blood chemistry Status: Acute Assessment and Plan: Patient had mild bump in troponin 0.041>0.039 trending down likely ischemic demand, Patient denied CP * Cardiology following likely no indication for any ischemic workup * ASA 324 given in ED * resumed her home Coumadin (5) CVA (cerebrovascular accident): Qualifiers: CVA mechanism: unspecified Qualified Code(s): I63.9 - Cerebral infarction, unspecified Code(s): I63.9 - Cerebral infarction, unspecified Status: Acute Assessment and Plan: Patient with previous HX of CVA 04/2025 seen by neurology is scheduled for MRI at [place] * Resume patient's statin and Coumadin * Patient with pacemaker unable to perform MRI (6) Bipolar disorder: Code(s): F31.9 - Bipolar disorder, unspecified Status: Chronic Assessment and Plan: * Continue trazodone, venlafaxine and Klonopin (7) Chronic anticoagulation: Code(s): Z79.01 - FPC (current) use of anticoagulants Status: Acute Assessment and Plan: * Continue Coumadin 2 mg daily * Trend INR daily adjust Coumadin as needed (8) Weakness: Code(s): R53.1 - Weakness Status: Acute Assessment and Plan: Patient presented with generalized weakness reports she felt as though is from her swelling in her legs moving all extremities appropriately with equal strength bilateral. * PT/OT for evaluation patient currently lives at with a friend uses a wheeled walker * Patient week and half ago hospitalized with UTI will repeat UA clearance (9) UTI (urinary tract infection): Qualifiers: Urinary tract infection type: acute cystitis Hematuria presence: without hematuria Qualified Code(s): N30.00 - Acute cystitis without hematuria Code(s): N39.0 - Urinary tract infection, site not specified Status: Acute Assessment and Plan: UA with suspicion of UTI but recently treated for urinary tract infection pansensitive * IV Rocephin pending sensitivities Plan Code status: Full code per patient DVT prophylaxis: Coumadin Stress ulcer prophylaxis: NA PT/OT notes: PT/OT Evaluation Disposition: Patient was admitted to medical unit for further evaluation of generalized weakness continue to CHF exacerbation with a mild bump in troponins. Patient to be evaluated by Cardiology to optimize CHF medication. A PT/OT evaluation and UA are pending for further evaluation weakness patient currently lives at home uses a wheeled walker but has been unable to ambulate due to weakness PT/OT recommending home health. Time Spent With Patient Time with patient: 15 - 25 minutes Subjective Date/time seen: 07/13/25 12:18 Interval history: Patient is a 79-year-old female admitted for further evaluation treatment of acute on chronic congestive heart failure exacerbation with reduced ejection fraction. Patient reported generalized weakness at home and inability to ambulate due to swelling in her bilateral lower extremity and worsening weakness the last week. Patient was recently hospitalized 2 weeks prior for urinary tract infection CHF exacerbation. 07/13/2025: Patient reports feeling mildlly better today but still with weakness. UA potential UTI but just treated no dysuria reported. Patient denied CP or SOB. Review of Systems Review of Systems: 12 systems were reviewed and are negativ e except for as per HPI. All systems reviewed & are unremarkable except as noted in HPI and below Exam Const: General: comfortable and no acute distress Other: Pleasant chronically ill looking female HENMT: Face/Nose/Sinus: Normal nares present Mouth: Yes moist mucous membranes Eyes: General: appearance normal, both eyes and all related structures Sclera: sclerae normal Pupils: Equal, round and reactive pupils present Neck: Neck: supple and no JVD Resp: Effort & Inspection: normal respiratory effort Auscultation: crackles bilateral (scant) in the lower lung quinones Cardio: Rate: regular rate Rhythm: regular rhythm Other: Pacemaker present GI: Auscultation: normal bowel sounds Neuro: Cranial nerves: Yes Equal, round and reactive pupils present Speech: normal speech Motor exam (neuro): Abnormal motor strength present (LLE weak from previous CVA) Extrem: General: edema (scant) bilateral Psych: Mental Status: mental status grossly normal Affect: normal affect Objective Data Vital Signs Vital Signs: Vital Signs - 24 hr 07/12/25 14:32 07/12/25 15:08 07/12/25 16:00 Temperature 97.4 F L Pulse Rate 58 L 60 Respiratory Rate 19 Blood Pressure 111/60 Pulse Oximetry 96 Oxygen Delivery Room Air 07/12/25 17:58 07/12/25 20:00 07/12/25 20:00 Temperature 97 F L Pulse Rate 60 60 60 Respiratory Rate 20 Blood Pressure 129/63 111/52 L Pulse Oximetry 96 94 Oxygen Delivery 07/12/25 20:00 07/12/25 20:59 07/13/25 00:00 Temperature 97.3 F L Pulse Rate 60 60 Respiratory Rate 20 Blood Pressure 116/52 L Pulse Oximetry 94 94 Oxygen Delivery Room Air 07/13/25 00:00 07/13/25 04:00 07/13/25 04:00 Temperature 97.2 F L Pulse Rate 60 60 60 Respiratory Rate 20 Blood Pressure 100/50 L Pulse Oximetry 91 Oxygen Delivery 07/13/25 08:00 07/13/25 09:24 07/13/25 09:25 Temperature 97.7 F Pulse Rate 60 60 60 Respiratory Rate 16 Blood Pressure 131/99 H Pulse Oximetry 93 Oxygen Delivery 07/13/25 12:00 Temperature Pulse Rate 60 Respiratory Rate Blood Pressure 110/52 L Pulse Oximetry 95 Oxygen Delivery Intake/Output Intake/Output: Intake & Output 07/10/25 07/11/25 07/12/25 07/13/25 23:59 23:59 23:59 23:59 Intake Total 930 340 Output Total 0 1000 200 Balance 0 -70 140 Meds/Results Medications: Active Medications Generic Name Dose Route Start Last Admin Trade Name Freq PRN Reason Stop Dose Admin Acetaminophen 650 mg 07/11/25 18:01 07/12/25 21:00 Acetaminophen 325 Mg Tablet PO 650 mg Q4H PRN Administration Mild Pain (1-3) or Fever Amiodarone HCl 200 mg 07/12/25 09:00 07/13/25 09:24 Amiodarone Hcl 200 Mg Tablet PO 200 mg DAILY STAN Administration Carvedilol 25 mg 07/12/25 21:00 07/13/25 09:25 Carvedilol 25 Mg Tablet PO 25 mg Q12HR STAN Administration Clonazepam 0.5 mg 07/11/25 22:00 07/13/25 09:25 Clonazepam (*Crx) 0.5 Mg Tablet PO 0.5 mg TID STAN Administration Docusate Sodium 100 mg 07/11/25 18:13 Docusate Sodium 100 Mg Capsule PO BID PRN Constipation Donepezil HCl 10 mg 07/11/25 22:00 07/12/25 20:59 Donepezil Hcl 10 Mg Tablet PO 10 mg HS STAN Administration Empagliflozin 10 mg 07/13/25 09:00 07/13/25 09:25 Empagliflozin 10 Mg Tablet PO 10 mg DAILY STAN Administration Furosemide 10 mg 07/14/25 09:00 Furosemide 10 Mg Tablet PO DAILY STAN Hydralazine HCl 10 mg 07/12/25 09:00 07/13/25 09:25 Hydralazine 10 Mg Tablet PO 10 mg BID STAN Administration Ceftriaxone Sodium 1 gm/ 50 mls @ 100 mls/hr 07/13/25 08:00 07/13/25 08:22 Sodium Chloride IVPB 100 mls/hr Q24H STAN Administration Levothyroxine Sodium 150 mcg 07/12/25 06:30 07/13/25 05:46 Levothyroxine Sodium 150 Mcg Tablet PO 150 mcg DAILY@0630 STAN Administration Loratadine 10 mg 07/12/25 09:00 07/13/25 09:26 Loratadine 10 Mg Tablet PO 10 mg QAM STAN Administration Losartan Potassium 50 mg 07/12/25 09:00 07/13/25 09:26 Losartan Potassium 50 Mg Tablet PO 50 mg DAILY STAN Administration Metoclopramide HCl 5 mg 07/11/25 22:05 07/13/25 05:46 Metoclopramide Hcl 5 Mg Tablet PO 5 mg ACHS STAN Administration Mirtazapine 15 mg 07/11/25 22:05 07/12/25 21:00 Mirtazapine Soltab 15 Mg Tab.Disper PO 15 mg HS STAN Administration Rosuvastatin Calcium 40 mg 07/12/25 09:00 07/13/25 09:26 Rosuvastatin 20 Mg Tablet PO 40 mg DAILY STAN Administration Spironolactone 25 mg 07/12/25 09:00 07/13/25 09:26 Spironolactone 25 Mg Tablet PO 25 mg DAILY STAN Administration Trazodone HCl 150 mg 07/11/25 22:05 07/12/25 21:00 Trazodone Hcl 50 Mg Tablet PO 150 mg HS STAN Administration Venlafaxine HCl 37.5 mg 07/12/25 09:00 07/13/25 09:26 Venlafaxine Hcl Xr 37.5 Mg Cap PO 37.5 mg DAILY STAN Administration Warfarin Sodium 2 mg 07/12/25 17:00 07/12/25 18:20 Warfarin (*Pbkc) 2 Mg Tablet PO Not Given DAILY@1700 [facility] Radiology Results: ITS Impressions Chest X-Ray 07/11/25 14:16 Impression: No acute cardiopulmonary abnormality. Labs Labs: Laboratory Results - last 24 hr 07/12/25 07/13/25 14:30 04:37 WBC 5.8 RBC 3.71 L Hgb 11.3 L Hct 37.5 MCV 101.1 H MCH 30.5 MCHC 30.1 L RDW 14.8 H Plt Count 197 MPV 10.5 H PT 28.3 H INR 2.7 Sodium 135 L Potassium 3.8 Chloride 99 Carbon Dioxide 32 H Anion Gap 4 BUN 26 H D Creatinine 1.72 H Estim Creat Clear Calc 22 Estimated GFR 29 L Glucose 83 Calcium 8.5 Magnesium 2.2 Total Bilirubin 0.3 AST 37 H ALT 30 Alkaline Phosphatase 44 Total Protein 6.4 Albumin 3.4 L Urine Color Yellow Urine Appearance Cloudy H Urine pH 5.5 Ur Specific [place] 1.008 Urine Protein Negative Urine Glucose (UA) Negative Urine Ketones Negative Ur Blood (Man) Negative Urine Nitrate Negative Urine Bilirubin Negative Urine Urobilinogen 0.2 Leukocyte Esterase Rfl 3+ H Urine RBC 0-2 Urine WBC >100 H Ur Squamous Epith Cells None seen Urine Bacteria 4+ H Urine Casts 0-2 Quality VTE Prophylaxis VTE prophylaxis: mechanical ordered and pharmacologic ordered -Patient's previous records reviewed on admission -ER notes reviewed in detail on admission -discussed all findings and current treatment plan with patient/Family/POA -Consultations reviewed for recommendations -Patient's disposition for safe discharge discussed with case loader operator -radiology imaging, EKG and test results I have personally reviewed and interpreted unless otherwise specified Dictation performed by [employer] direct speech recognition software, therefore automotive brake adjuster variants and typographical errors may occur. Hospitalist [facility] Advance Care Plan I have confirmed that the patient's Advanced Care Plan is present, code status is documented, or surrogate decision maker is listed in patient medical record.: Yes Medication Reconciliation I have utilized all available resources to obtain, update and review the patients current medications (includes all prescriptions, OTC, herbals, cannabis, and nutritional supplements).: Yes The patient is not eligible for med reconciliation; the patient is in a emergent medical situation where delaying treatment would jeopardize the patients health.: No
[2025-07-13] MEDS: WARFARIN (*PBKC) 2 MG TABLET PO (17:38)
[2025-07-13] MEDS: MIRTAZAPINE SOLTAB 15 MG TAB.DISPER PO (21:10)
[2025-07-13] MEDS: DONEPEZIL HCL 10 MG TABLET PO (21:10)
[2025-07-13] MEDS: ACETAMINOPHEN 325 MG TABLET 650 MG PO (22:42)
[2025-07-14] VITALS: BP 100/57; PULSE 60; RESP 18; TEMP 36.3; O2SAT 93
[2025-07-14 04:00] VITALS: BP 124/50; PULSE 60; RESP 18; TEMP 36.5; O2SAT 90
[2025-07-14 05:38] LABS: Hematocrit 37.9 % (37.0-47.0); Hemoglobin 11.8 g/dL (12.0-15.0); Mean Corpuscular HGB Conc 31.1 g/dl (32-36); Mean Corpuscular Hemoglobin 30.9 pg (26-34); Mean Corpuscular Volume 99.2 fl (80-100); Platelet Count Result 199 k/mm3 (150-375); Red Blood Count 3.82 M/mm3 (4.2-5.4); White Blood Count 6.2 K/mm3 (4.5-10.0)
[2025-07-14 05:51] LABS: INR 1.6; Prothrombin Time 18.6 Seconds (11.1-14.7)
[2025-07-14 06:05] LABS: Alanine Aminotransferase 26 U/L (6-35); Albumin Level 3.7 g/dL (3.5-5.1); Alkaline Phosphatase 49 U/L (38-126); Anion Gap 6 mmol/L (4-12); Aspartate Amino Transferase 29 U/L (14-36); Bilirubin,Total 0.4 mg/dL (0.2-1.3); Blood Urea Nitrogen 26 mg/dL (7-17); Calcium 8.5 mg/dL (8.4-10.2); Carbon Dioxide 31 mmol/L (22-30); Chloride 98 mmol/L (98-107); Estimated CRCL calculation 25 ml/min; Estimated Glomerular Filt Rate 35; Glucose 80 mg/dL (65-110); Magnesium 2.1 mg/dL (1.6-2.3); Potassium 4.0 mmol/L (3.4-5.0); Sodium 135 mmol/L (137-145); Total Protein 7.0 g/dL (6.3-8.2)
[2025-07-14] MEDS: LEVOTHYROXINE SODIUM 150 MCG TABLET PO (06:18)
[2025-07-14] MEDS: METOCLOPRAMIDE HCL 5 MG TABLET PO ×2 (06:18→12:47)
[2025-07-14] MEDS: cefTRIAXone 1 GM in SODIUM CHLORIDE 0.9% IV 50 ML 100 ML IVPB (07:59)
[2025-07-14 08:00] VITALS: BP 121/53; PULSE 59; PULSE 64; RESP 16; TEMP 36.4; O2SAT 91
[2025-07-14 08:01] VITALS: PULSE 60
[2025-07-14] MEDS: AMIODARONE HCL 200 MG TABLET PO (08:01)
[2025-07-14 08:02] VITALS: PULSE 60
[2025-07-14] MEDS: clonazePAM (*CRX) 0.5 MG TABLET PO ×2 (08:03→12:47)
[2025-07-14] MEDS: EMPAGLIFLOZIN 10 MG TABLET PO (08:03)
[2025-07-14] MEDS: FUROSEMIDE 10 MG TABLET PO (08:03)
[2025-07-14] MEDS: LORATADINE 10 MG TABLET PO (08:04)
[2025-07-14] MEDS: LOSARTAN POTASSIUM 50 MG TABLET PO (08:05)
[2025-07-14] MEDS: ROSUVASTATIN 20 MG TABLET 40 MG PO (08:05)
[2025-07-14] MEDS: SPIRONOLACTONE 25 MG TABLET PO (08:06)
[2025-07-14] MEDS: VENLAFAXINE HCL XR 37.5 MG CAP PO (08:06)
[2025-07-14] MEDS: ACETAMINOPHEN 325 MG TABLET 650 MG PO (09:43)
--- NOTE | 2025-07-14 11:18 | P.DS_ITS ---
DS: Admitting Diagnosis Discharge Date 07/14/2025 Admitting Diagnosis Acute on chronic diastolic/ UTI/ generalized weakness/ elevated troponins DS: Discharge Diagnosis Discharge Diagnosis (1) Combined systolic and diastolic congestive heart failure: Code(s): I50.40 - Unspecified combined systolic (congestive) and diastolic (congestive) heart failure Status: Acute (2) Hypertension: Qualifiers: Hypertension type: primary hypertension Qualified Code(s): I10 - Essential (primary) hypertension Code(s): I10 - Essential (primary) hypertension Status: Chronic (3) Chronic kidney disease: Code(s): N18.9 - Chronic kidney disease, unspecified Status: Acute (4) Troponin I above reference range: Code(s): R79.89 - Other specified abnormal findings of blood chemistry Status: Acute (5) CVA (cerebrovascular accident): Qualifiers: CVA mechanism: unspecified Qualified Code(s): I63.9 - Cerebral infarction, unspecified Code(s): I63.9 - Cerebral infarction, unspecified Status: Acute (6) Bipolar disorder: Code(s): F31.9 - Bipolar disorder, unspecified Status: Chronic (7) Chronic anticoagulation: Code(s): Z79.01 - assisted (current) use of anticoagulants Status: Acute (8) Weakness: Code(s): R53.1 - Weakness Status: Acute (9) UTI (urinary tract infection): Qualifiers: Hematuria presence: without hematuria Urinary tract infection type: acute cystitis Qualified Code(s): N30.00 - Acute cystitis without hematuria Code(s): N39.0 - Urinary tract infection, site not specified Status: Acute DS: Summary Hospital Course Reason for hospitalization: Acute on chronic diastolic/ UTI/ generalized weakness/ elevated troponi Hospital Course: Admission: 79-year-old female with past medical history of pacemaker, CHF, bipolar, anxiety complains of bilateral lower extremity edema and shortness of breath. Patient complains of shortness of breath, increased elevation and bilateral leg swelling unable to walk. Patient denies chest pain, nausea vomiting fever or chills. Patient states that she takes Lasix every other day as prescribed. She states that she has been barely urinating. In the ED: Sodium of 136, creatinine of 1.04, GFR of 51, BNP of 1780, patient was given Lasix in the emergency room. Echocardiogram from 04/22/2025 shows EF of 45-50%. Patient was given Lasix in the emergency room. Hospital Course: patient was admitted to the medical unit for combined systolic and diastolic heart failure previous EF was 20-25 last echo in showed an EF of 45-50%. Patient with extensive cardiac history and previous cardiac arrest. Troponin with mild bump likely ischemic demand type 2. BNP elevated but CXR showing no pulmonary congestion 1+ bilateral lower extremity edema. patient is started Lasix 40 mg IVP daily consult to cardiology did order a limited echocardiogram in resumed patient's carvedilol, losartan and spironolactone. patient did report she missed a few days of her Lasix and stopped taking it due to urinary frequency which caused her lower extremities to swell and made it difficult for her to ambulate with her walker. patient was found to have some suspicion for urinary tract infection but had just been recently treated 06/2025 for Klebsiella pneumoniae pansensitive UTI. Patient responded to IV duiresis well and edema improved. Was evalauted by cardiology and recommended low dose Lasix at discharge to reduce patient urinary frequency since this is why she stopped taking her lasix. Patient was evaluated by PT/OT and resommended to continue with her home health services with PT/OT. Patient with no complaints and seen prior to discharge in no acute distress. Patient was discharged home with home health acknowledge and agreed with discharge plan. Status at Discharge Functional status at discharge: uses cane/walker Overall status at discharge: patient is back to baseline Time Spent with Patient Time attestation: Total time spent providing and/or coordinating discharge services: Time spent: Greater than 30 minutes Exam Const: General: comfortable and no acute distress Other: Pleasant chronically ill looking female HENMT: Face/Nose/Sinus: Normal nares present Mouth: Yes moist mucous membranes Eyes: General: appearance normal, both eyes and all related structures Sclera: sclerae normal Pupils: Equal, round and reactive pupils present Neck: Neck: supple and no JVD Resp: Effort & Inspection: normal respiratory effort Auscultation: crackles bilateral (scant) in the lower lung quinones Cardio: Rate: regular rate Rhythm: regular rhythm Other: Pacemaker present GI: Auscultation: normal bowel sounds Neuro: Cranial nerves: Yes Equal, round and reactive pupils present Speech: normal speech Motor exam (neuro): Abnormal motor strength present (LLE weak from previous CVA) Extrem: General: edema (scant) bilateral Psych: Mental Status: mental status grossly normal Affect: normal affect DS: Data Data Completed and Pending Labs on day of discharge: Labs from last 24 hours 07/14/25 05:02 WBC 6.2 RBC 3.82 L Hgb 11.8 L Hct 37.9 MCV 99.2 MCH 30.9 MCHC 31.1 L RDW 14.8 H Plt Count 199 MPV 10.2 PT 18.6 H D INR 1.6 Sodium 135 L Potassium 4.0 Chloride 98 Carbon Dioxide 31 H Anion Gap 6 BUN 26 H Creatinine 1.45 H Estim Creat Clear Calc 25 Estimated GFR 35 L Glucose 80 Calcium 8.5 Magnesium 2.1 Total Bilirubin 0.4 AST 29 ALT 26 Alkaline Phosphatase 49 Total Protein 7.0 Albumin 3.7 Imaging Radiologist's impression: Radiology Results: ITS Impressions Chest X-Ray 07/11/25 14:16 Impression: No acute cardiopulmonary abnormality. Discharge Plan Discharge Attending physician on discharge: Isai Velazco Consulting providers: Kayla Lenz; Leroy Seo Discharging Clinician: Kayla Lenz Anticipated Discharge Date/Time: 07/14/25 11:23 Patient Disposition: Home with Home Health Service Activity: may shower and as tolerated Diet: heart healthy and low sodium Discharge Instructions: Care Coordination: Patient to have [facility] for PT/OT eval and treat, and [place] [facility]. Their phone number is [phone], if you have any questions; they will contact you to schedule their visits. RN Please fax discharge instructions to [phone]. 1). Congestive heart failure * Resume your carvedilol, losartan, and spironolactone * transition to low-dose p.o. Lasix has been prescribed * Strict and I&O's * Daily weight * Heart healthy diet 2). UTI * I have prescribed oral Augmentin 3). weakness * continue with physical and occupational therapy home health services How can you care for yourself at home? ? Keep track of any new symptoms or changes in your symptoms. ? Rest until you feel better. ? Be safe with medicines. Take your medicines exactly as prescribed. Call your doctor if you think you are having a problem with your medicine. ? Do not drive after taking a prescription pain medicine. ? Ensure to follow-up with primary care physician as indicated and provide updated medication list provided to you at discharge. When should you call for help? Call 911 anytime you think you may need emergency care. For example, call if: ? You passed out (lost consciousness). Call your doctor now or seek immediate medical care if: ? You have new symptoms like fever, difficulty breathing, Chest pain, vomiting, or rash. ? You have new or different pain. ? You are confused and are having trouble thinking clearly. ? Your symptoms are getting worse. Watch closely for changes in your health, and be sure to contact your doctor if: ? You do not get better as expected. Patient Instructions: Antibiotic Form, Warfarin (By mouth), Heart Failure (DC), Low-Sodium Diet (DC), Urinary Tract Infection in Older Adults (DC) Patient Language: Bangladeshi Stand Alone Forms: General Discharge Information Follow-up/Referrals: Maureen,MD Masoud [Primary Care Provider, Unknown] - Keep Reg. Scheduled Appt. Discharge Medications: New Jardiance 10 mg Tablet 10 mg PO DAILY Qty: 30 0RF furosemide [Lasix] 20 mg tablet 10 mg PO DAILY Qty: 30 0RF amoxicillin-pot clavulanate 875-125 mg tablet 1 tablet PO Q12H Qty: 6 0RF Continued venlafaxine [Effexor XR] 37.5 mg capsule,extended release 24hr 37.5 mg PO DAILY trazodone 150 mg tablet 150 mg PO HS carvedilol 12.5 mg tablet 25 mg PO DAILY rosuvastatin 40 mg tablet 40 mg PO DAILY levothyroxine 150 mcg Tablet 150 mcg PO DAILY amiodarone 200 mg tablet 200 mg PO DAILY clonazepam 0.5 mg tablet 0.5 mg PO TID losartan 50 mg tablet 50 mg PO DAILY mirtazapine 15 mg tablet,disintegrating 15 mg PO HS spironolactone 25 mg tablet 25 mg PO DAILY cyanocobalamin (vitamin B-12) 1,000 mcg/mL solution 1,000 mcg subcut MONTHLY donepezil 10 mg tablet 10 mg PO HS acetaminophen [8 Hour Pain Reliever] 650 mg tablet extended release 650 mg PO Q8H PRN (Reason: pain) loratadine 10 mg Tablet 10 mg PO QAM Qty: 30 0RF metoclopramide HCl 5 mg Tablet 5 mg PO ACHS Qty: 120 0RF hydralazine 10 mg tablet 10 mg PO BID Qty: 60 0RF ondansetron 4 mg tablet,disintegrating 8 mg PO Q12H PRN (Reason: nausea and vomiting) Qty: 30 0RF Changed warfarin 2 mg tablet 2 mg PO DAILY@1700 Qty: 30 0RF Patient Comments: Takes Twice daily on Saturdays and Sundays Discontinued furosemide 40 mg tablet 40 mg PO 3XW Patient Comments: taking Monday, Monday, Monday Rx Instructions: M-W-F Date of admission: 07/13/25 13:37 Primary Care Provider: Maureen,Masoud Admitting Provider: Vadim Pena Oca Attending physician on admission: Vadim Pena Oca Condition: Stable Quality VTE Prophylaxis VTE prophylaxis: mechanical ordered and pharmacologic ordered -Patient's previous records reviewed on admission -ER notes reviewed in detail on admission -discussed all findings and current treatment plan with patient/Family/POA -Consultations reviewed for recommendations -Patient's disposition for safe discharge discussed with hospice case manager -radiology imaging, EKG and test results I have personally reviewed and interpreted unless otherwise specified Dictation performed by [employer] direct speech recognition software, therefore specialty therapist variants and typographical errors may occur. Hospitalist MIPS Heart Failure (Exclusion) Patient has history of Heart Transplant or Left Ventricular Assistive Device?: No IF YES, STOP HERE Heart Failure (Qualifier) Patient has current or prior documentation of LVEF less than or equal to 40%, or mod/servere depressed LVSF?: No IF NO, STOP HERE
[2025-07-14 12:00] VITALS: BP 102/54; PULSE 60; PULSE 61; RESP 18; O2SAT 93
== END 2025-07-14 16:24 | disposition home health service (06) | DRG 291 ==
LOC: ANHED 18:01 → ANH2MED 19:30
PROVIDERS: Nurse Practitioner Family; Nurse Practitioner Gerontology; Admitting Provider Student in an Organized Health Care Education/Training Program; Emergency Provider Family Medicine; PCP Internal Medicine; Visit Provider Internal Medicine
DX: I13.0 Hypertensive heart and chronic kidney disease with heart failure and stage 1 through stage 4 chronic kidney disease, or unspecified chronic kidney disease (principal); I50.43 Acute on chronic combined systolic (congestive) and diastolic (congestive) heart failure; N30.00 Acute cystitis without hematuria; I24.89 Other forms of acute ischemic heart disease; B96.1 Klebsiella pneumoniae [K. pneumoniae] as the cause of diseases classified elsewhere; E78.5 Hyperlipidemia, unspecified; E03.9 Hypothyroidism, unspecified; F41.9 Anxiety disorder, unspecified; F31.9 Bipolar disorder, unspecified; I42.9 Cardiomyopathy, unspecified; K21.9 Gastro-esophageal reflux disease without esophagitis; N18.9 Chronic kidney disease, unspecified; Z79.01 Long term (current) use of anticoagulants; Z86.73 Personal history of transient ischemic attack (TIA), and cerebral infarction without residual deficits; Z86.718 Personal history of other venous thrombosis and embolism; Z96.653 Presence of artificial knee joint, bilateral; Z86.74 Personal history of sudden cardiac arrest; Z95.0 Presence of cardiac pacemaker
CPT/HCPCS: 36415; 71046; 80048; 80053; 81001; 83735; 83880; 84484; 85025; 85027; 85610; 85730; 87086; 87186; 93005; 93308; 96374; 97161; 97165; 99285; A9270; C8924; G0378; J0696; J1938; Q9957

== ENCOUNTER 2025-07-15 17:18 | Observation (INO) | payer MEDICARE, SELFPAY ==
--- OUTSIDE RECORDS SUMMARY | 2025-05-01 07:30 | XMS_ITS ---
Author Organization [facility] [employer] Alert [facility] Address [address] [facility] [address] [address] Care Team Providers Care Labor Relations Officer Name Role Phone Maureen URBINA, [facility] Primary Care Provider Un available Patric De Jesus Unavailable [phone] REASON FOR VISIT 3 week follow up Social History Sex Assigned At : Social History Observation Description Sex Assigned At Female Encounters Encounter Location Date Provider Diagnosis [facility] [place] [address] [facility] [address] [address] 05/01/2025 Patric De Jesus Plan Of Treatment Next Appt Details Provider Name:Patric De Jesus , 08/11/2025 01:30:00 PM, [address] [facility], [address], [address], Provider Name:Patric De Jesus , 09/10/2025 01:30:00 PM, [address], [address], Provider Name:Patric De Jesus , 10/15/2025 01:30:00 PM, [address] [place] [address], [address], Progress Notes * JAILENE CHOPRA KDOB:[birth year] (79 yo F)Acc No.[id number]:05/01/2025 Patient: JAILENE BELTRAN Provider: Beck DE JESUS MD :1945 A ge:79 Y S ex:Female Date:05/01/2025 Address:[address] [place] [address] , [facility] Pcp:Masoud Reddy MD Subjective: * Chief Complaints: * 3 week follow up * Active Problem List E78.5 Hyperlipidemia Onset Date:03/22/2021Modified On:06/14/2024 Status:confirmed E03.9 Hypothyroidism Onset Date:03/22/2021Modified On:06/14/2024 Status:confirmed I42.9 Cardiomyopathy Onset Date:03/22/2021Modified On:06/14/2024 Status:confirmed I44.7 Left bundle branch b lock (LBBB) Onset Date:03/23/2021Modified On:06/14/2024 Status:confirmed I47.20 VT (ventricular tach ycardia) Onset Date:04/12/2021Modified On:06/14/2024 Status:confirmedClinical Status:active Z95.810 ICD (implantable car dioverter-defibrillator), biventricular, in situ Onset Date:04/21/2023Modified On:06/14/2024 Status:confirmedClinical Status:active F31.31 Bipolar disorder, cu rrent episode depressed, mild Modified On:02/12/2024 Status:confirmed I42.9 Cardiomyopathy, unsp ecified Modified On:02/12/2024 Status:confirmed F51.01 Primary insomnia Modified On:02/12/2024 Status:confirmed F41.1 Generalized anxiety disorder Modified On:03/04/2024 Status:confirmed F41.1 [place] (generalized anx iety disorder) Modified On:04/12/2024 Status:confirmed G30.1 Alzheimer's disease with late onset Modified On:04/12/2024 Status:confirmed I50.9 Heart failure, unspe cified Modified On:03/12/2025 Status:confirmed R29.6 Repeated falls Modified On:04/09/2025 Status:confirmed I63.9 Cerebral infarction, unspecified Modified On:05/12/2025W/U Status:confirmed Billing Information: * Procedure Codes: * Electronic signature of Blanca De Jesus MD on 07/15/2025 at 01:05 PM TUBE CARRIER Sign off status: Pending * Provider: Beck DE JESUS MD Date: 0 05/01/2025 Generated for [place] donnelly/Danny/Phillipitting on: 09/14/2024 01:05 PM TUBE CARRIER
--- NOTE | ~2025-07-15 | XR_ITS ---
EXAMINATION: XR chest 1V portable COMPARISON: No comparisons available. HISTORY: weakness FINDINGS: Mild pulmonary venous congestion. No pneumothorax. Mild cardiomegaly. Mediastinal and hilar contours are within normal limits. Bones normal. Miscellaneous: Left pacemaker. Impression: Mild CHF Reviewed, dictated and finalized at location P. ICAL MICROBIOLOGIST Impression: Mild CHF
--- NOTE | ~2025-07-15 | CT_ITS ---
CT brain wo con HISTORY:trauma COMPARISON: None. TECHNIQUE: Axial images were obtained of the head without intravenous contrast. FINDINGS: No acute intracranial hemorrhage, mass effect or midline shift. No extra-axial fluid collections. White matter microangiopathic changes in the periventricular white matter. Generalized atrophy is noted.Visualized paranasal sinuses and mastoid air cells are clear. IMPRESSION: No acute intracranial hemorrhage or extra axial fluid collections. Chronic white matter microangiopathic changes and generalized atrophy. All CT scans at this facility are performed using low dose modulation techniques as appropriate to perform exam including the following: automated exposure control; use of iterative reconstruction technique; adjustment of the mA and/or kV according to patient size (this includes techniques or standardized protocols for targeted exams where dose is matched to indication/reason for exam). Reviewed, dictated and finalized at location S. YSIS EQUIPMENT TECHNICIAN IMPRESSION: No acute intracranial hemorrhage or extra axial fluid collections. Chronic white matter microangiopathic changes and generalized atrophy. All CT scans at this facility are performed using low dose modulation techniqu es as appropriate to perform exam including the following: automated exposure c ontrol; use of iterative reconstruction technique; adjustment of the mA and/or kV according to patient size (this includes techniques or standardized protocol s for targeted exams where dose is matched to indication/reason for exam).
--- NOTE | ~2025-07-15 | CT_ITS ---
CT cervical spine wo con HISTORY: trauma COMPARISON: None TECHNIQUE: Axial images of the cervical spine were obtained. Multiplanar reconstruction in the coronal, sagittal and axial reformats to evaluate for cervical fracture. FINDINGS: The images demonstrate no acute fracture or paravertebral soft tissue swelling. Degenerative changes with disc bulging and uncovertebral hypertrophy likely at C3-C4 noted. The visualized aspect of the upper lungs are clear. IMPRESSION: No acute fracture or subluxation. Degenerative changes with disc bulging and uncovertebral hypertrophy are noted. All CT scans at this facility are performed using low dose modulation techniques as appropriate to perform exam including the following: automated exposure control; adjustment of the mA and/or kV according to patient size (this includes techniques or standardized protocols for targeted exams where does is matched to indication/reason for exam; i.e. extremities or head); use of iterative reconstruction technique). Reviewed, dictated and finalized at location S. ROOM MACHINIST IMPRESSION: No acute fracture or subluxation. Degenerative changes with disc bulging and uncovertebral hypertrophy are noted. All CT scans at this facility are performed using low dose modulation techniqu es as appropriate to perform exam including the following: automated exposure c ontrol; adjustment of the mA and/or kV according to patient size (this includes techniques or standardized protocols for targeted exams where does is matched to indication/reason for exam; i.e. extremities or head); use of iterative shu nstruction technique).
--- NOTE | ~2025-07-15 | CT_ITS ---
CT thoracic spine wo con HISTORY: Trauma2 COMPARISON: None available. TECHNIQUE: Axial 2.5 mm images of the thoracic spine were obtained without intrathecal contrast. Axial 0.625 mm images were utilized to render sagittal and coronal reconstructions. Reconstructed images were rendered to evaluate for spinal subluxation, compression, and facet joint malalignment. FINDINGS: The axial images demonstrate no acute fracture or paravertebral soft tissue swelling. There is no high-grade central or foraminal stenosis. No significant degenerative changes are noted. MULTIPLANAR RECONSTRUCTIONS: Additional sagittal and coronal reformatted images were obtained. The thoracic vertebrae are in alignment. There is no compression fracture, subluxation, or paravertebral soft tissue swelling. The disc spaces are preserved. IMPRESSION: No acute fracture or subluxation. All CT scans at this facility are performed using low dose modulation techniques as appropriate to perform exam including the following: automated exposure control; use of iterative reconstruction technique; adjustment of the mA and/or kV according to patient size (this includes techniques or standardized protocols for targeted exams where dose is matched to indication/reason for exam). Reviewed, dictated and finalized at location S. LANCE RECRUITER IMPRESSION: No acute fracture or subluxation. All CT scans at this facility are performed using low dose modulation techniqu es as appropriate to perform exam including the following: automated exposure c ontrol; use of iterative reconstruction technique; adjustment of the mA and/or kV according to patient size (this includes techniques or standardized protocol s for targeted exams where dose is matched to indication/reason for exam).
--- OUTSIDE RECORDS SUMMARY | 2025-07-15 13:02 | XMS_ITS | Encounter Summary ---
Author Organization [facility] Healthcare Address [address] [place] [address] Care Team Providers Care Relations Manager Name Role Phone Bandar Gaffney MD Unavailable [phone] Dillan Reddy MD Primary Care Provide r Reason for Referral * MRI/CAT/PET Scan (Routine) - Closed Specialty Diagnoses / Procedures Referred By Katherine yu Referred To Contact Radiology Diagnoses Cerebral infarction, unspecified mechanism (HCC) Procedures MRI Brain WO Contrast Dillan Reddy MD [address] [employer] [address] [place] [address] Phone: tel: fax: [place] [id number] [place] [address] Referral ID Status Reason Start Date Expiration Date Visits Re quested Visits Authorized [id number] Closed 05/01/2025 05/31/2026 1 1 Y DUTY PRESS OPERATOR Reason for Visit * MRI/CAT/PET Scan (Routine) - Closed Specialty Diagnoses / Procedures Referred By Katherine yu Referred To Contact Radiology Diagnoses Cerebral infarction, unspecified mechanism (HCC) Procedures MRI Brain WO Contrast Dillan Reddy MD [address] [employer] [address] [place] [address] Phone: tel: fax: [place] [id number] [place] [address] Referral ID Status Reason Start Date Expiration Date Visits Re quested Visits Authorized [id number] Closed 05/01/2025 05/31/2026 1 1 Encounter Details Date Type Department Care Team (Latest Contact Info) Description 07/15/2025 1:02 PM HEAVY DUTY PRESS OPERATOR Hospital Encounter - Imaging [address] [place] [address] Cerebral infarction, unspecified mechanism (HCC) Social History Tobacco Use Types Packs/Day [...] often do you attend chur ch or evangelical services? Never 04/13/2021 Do you belong to [...] on file Legal Sex Female 2:33 AM HEAVY DUTY PRESS OPERATOR Gender Identity Not on file Sexual Orientation Not on file documented as of this encounter Plan of Treatment Not on file documented as of this encounter Procedures Procedure Name Priority Date/Time Associated Diagnosis Comments MRI BRAIN WO CONTRAST Schedule Routine, Read Routine (OP Routine) 07/15/2025 3:57 PM HEAVY DUTY PRESS OPERATOR Cerebral infarction, unspecified mechanism (HCC) documented in this encounter Results * MRI Brain WO Contrast (07/15/2025 3:57 PM HEAVY DUTY PRESS OPERATOR) Anatomical Region Laterality Modality Head and Neck N/A Magnetic Resonan ce 07/15/2025 4:06 PM HEAVY DUTY PRESS OPERATOR Impressions 07/15/2025 4:06 PM HEAVY DUTY PRESS OPERATOR No acute intracranial abnormality. Suggestion of a large arachnoid cyst along the left parietal convexity. Electronically signed by: Alon Vasquez MD Narrative 07/15/2025 4:06 PM HEAVY DUTY PRESS OPERATOR EXAMINATION: Magnetic resonance imaging (MRI) of the brain and brainstem without contrast HISTORY: Cerebral infarction. TECHNIQUE: Multiplanar multi-weighted MRI of the brain and brainstem was performed without intravenous contrast using the general brain protocol. COMPARISON: No priors. FINDINGS: No acute intracranial infarction or hemorrhage. Extensive cerebral and cerebellar volume loss without hydrocephalus. Marked prominence of the subarachnoid space along the left posterior parietal convexity is noted with nulling of signal on T2 FLAIR imaging; on T2 weighted imaging, there is suggestion of a prominent arachnoid cyst measuring approximately 3.8 x 1.7 cm in maximal transaxial dimensions. Periventricular and deep white matter T2 FLAIR hyperintense signal is nonspecific but may reflect underlying chronic small vessel ischemic changes. The scalp and calvarium are normal. The superior sagittal sinus demonstrates normal venous flow. The corpus callosum is normal in shape and signal intensity. The posterior fossa is unremarkable. The pituitary and sella are normal. The brainstem and craniocervical junction are unremarkable. The visualized portions of the orbits are normal. The visualized portions of the mastoids are normal. The visualized portions of the paranasal sinuses are normal. Normal flow voids are demonstrated in the carotid arteries and basilar artery. Procedure Note Alon Vasquez MD - 07/15/2025 EXAMINATION: Magnetic resonance imaging (MRI) of the brain and brainstem without contrast HISTORY: Cerebral infarction. TECHNIQUE: Multiplanar multi-weighted MRI of the brain and brainstem was performed without intravenous contrast using the general brain protocol. COMPARISON: No priors. FINDINGS: No acute intracranial infarction or hemorrhage. Extensive cerebral and cerebellar volume loss without hydrocephalus. Marked prominence of the subarachnoid space along the left posterior parietal convexity is noted with nulling of signal on T2 FLAIR imaging; on T2 weighted imaging, there is suggestion of a prominent arachnoid cyst measuring approximately 3.8 x 1.7 cm in maximal transaxial dimensions. Periventricular and deep white matter T2 FLAIR hyperintense signal is nonspecific but may reflect underlying chronic small vessel ischemic changes. The scalp and calvarium are normal. The superior sagittal sinus demonstrates normal venous flow. The corpus callosum is normal in shape and signal intensity. The posterior fossa is unremarkable. The pituitary and sella are normal. The brainstem and craniocervical junction are unremarkable. The visualized portions of the orbits are normal. The visualized portions of the mastoids are normal. The visualized portions of the paranasal sinuses are normal. Normal flow voids are demonstrated in the carotid arteries and basilar artery. IMPRESSION: No acute intracranial abnormality. Suggestion of a large arachnoid cyst along the left parietal convexity. Electronically signed by: Alon Vasquez MD Dillan Reddy MD IMG MRI PROCEDURES Fi nal Result documented in this encounter Visit Diagnoses Diagnosis Cerebral infarction, unspecified mechanism (HCC) documented in this encounter Care Teams Relations Manager Relationship Specialty Start Date End Date Dillan Reddy MD [address] [address] PCP - General Internal Medicine 11/09/23 Bandar Gaffney MD Consulting Physician Cardiology 04/13/21 documented as of this encounter
--- OUTSIDE RECORDS SUMMARY | 2025-07-15 13:02 | XMS_ITS | Encounter Summary ---
Author Organization [facility] Healthcare Address [address] [place] [address] Care Team Providers Care Seafood Service Team Member Name Role Phone Bandar Gaffney MD Unavailable [phone] Dillan Reddy MD Primary Care Provide r Reason for Referral * MRI/CAT/PET Scan (Routine) - Closed Specialty Diagnoses / Procedures Referred By Katherine yu Referred To Contact Radiology Diagnoses Cerebral infarction, unspecified mechanism (HCC) Procedures MRI Brain WO Contrast Dillan Reddy MD [address] [employer] [address] [place] [address] Phone: tel: fax: [place] [phone] [place] [address] Referral ID Status Reason Start Date Expiration Date Visits Re quested Visits Authorized [id number] Closed 05/01/2025 05/31/2026 1 1 E ARMORER OPERATOR Reason for Visit * MRI/CAT/PET Scan (Routine) - Closed Specialty Diagnoses / Procedures Referred By Katherine yu Referred To Contact Radiology Diagnoses Cerebral infarction, unspecified mechanism (HCC) Procedures MRI Brain WO Contrast Dillan Reddy MD [address] [place] [address] Phone: tel: fax: [place] [phone] [place] [address] Referral ID Status Reason Start Date Expiration Date Visits Re quested Visits Authorized [id number] Closed 05/01/2025 05/31/2026 1 1 Encounter Details Date Type Department Care Team (Latest Contact Info) Description 07/15/2025 1:02 PM CABLE ARMORER OPERATOR Hospital Encounter [facility] - Imaging [address] [place] [address] Cerebral infarction, unspecified mechanism (HCC) [...] any clubs o r organizations such as congregational groups, unions, fraternal or athletic groups, or [...] on file Legal Sex Female 2:33 AM CABLE ARMORER OPERATOR Gender Identity Not on file Sexual Orientation Not on file documented as of this encounter Plan of Treatment Not on file documented as of this encounter Procedures Procedure Name Priority Date/Time Associated Diagnosis Comments MRI BRAIN WO CONTRAST Schedule Routine, Read Routine (OP Routine) 07/15/2025 3:57 PM CABLE ARMORER OPERATOR Cerebral infarction, unspecified mechanism (HCC) documented in this encounter Results * MRI Brain WO Contrast (07/15/2025 3:57 PM CABLE ARMORER OPERATOR) Anatomical Region Laterality Modality Head and Neck N/A Magnetic Resonan ce 07/15/2025 4:06 PM CABLE ARMORER OPERATOR Impressions 07/15/2025 4:06 PM CABLE ARMORER OPERATOR No acute intracranial abnormality. Suggestion of a large arachnoid cyst along the left parietal convexity. Electronically signed by: Alon Vasquez MD Narrative 07/15/2025 4:06 PM CABLE ARMORER OPERATOR EXAMINATION: Magnetic resonance imaging (MRI) of [...] (HCC) documented in this encounter Care Teams Seafood Service Team Member Relationship Specialty Start Date End Date Dillan Reddy MD [address] [address] PCP - General Internal Medicine 11/09/23 Bandar Gaffney MD Consulting Physician Cardiology 04/13/21 documented as of this encounter
--- OUTSIDE RECORDS SUMMARY | 2025-07-15 13:53 | XMS_ITS | Encounter Summary ---
Author Organization [facility] Healthcare Address [address] [place] [address] Care Team Providers Care Yarn Handler Name Role Phone Bandar Gaffney MD Unavailable [phone] Dillan Reddy MD Primary Care Provide r Encounter Details Date Type Department Care Team (Late st Contact Info) Description 07/15/2025 1:53 PM POWERHOUSE MECHANIC SUPERVISOR Hospital Encounter [facility] - Imaging [address] [place] [address] Pacemaker Social History Tobacco Use Types Packs/Day Years [...] often do you attend chur ch or baptist services? Never 04/13/2021 Do you belong to [...] on file Legal Sex Female 2:33 AM POWERHOUSE MECHANIC SUPERVISOR Gender Identity Not on file Sexual Orientation Not on file documented as of this encounter Plan of Treatment Not on file documented as of this encounter Procedures Procedure Name Priority Date/Time Associated Diagnosis Comments XR CHEST PA LATERAL 2 VIEWS Schedule NAIN, Read NAIN (Appt Today, Awaiting Results) 07/15/2025 2:26 PM POWERHOUSE MECHANIC SUPERVISOR Pacemaker documented in this encounter Results * XR Chest PA Lateral 2 Views (07/15/2025 2:26 PM POWERHOUSE MECHANIC SUPERVISOR) Anatomical Region Laterality Modality Body, Chest N/A Computed Radiogr aphy 07/15/2025 3:24 PM POWERHOUSE MECHANIC SUPERVISOR Impressions 07/15/2025 3:24 PM POWERHOUSE MECHANIC SUPERVISOR 1. Biventricular pacing internal cardiac defibrillator which appears to be within expected limits and unchanged in course compared to the previous examination. 2. Otherwise negative chest radiograph without significant interval change. COMMENT: Please see above for additional findings. Electronically signed by: Jass Lopez M.D. Narrative 07/15/2025 3:24 PM POWERHOUSE MECHANIC SUPERVISOR XR CHEST PA LATERAL 2 VIEWS HISTORY: Pre-MRI pacemaker evaluation COMPARISON: None available A chest radiograph in the PA and lateral projections were presented. FINDINGS: A biventricular pacing internal cardiac defibrillator is present entering from the left subclavian approach and follows an expected course. The leads are intact and are unchanged in position compared to the previous examination. No abandoned are present. There is no evidence of pneumothorax. The osseous structures and chest wall are grossly within expected limits. The mediastinum and brenna within expected limits. The cardiac silhouette within normal size limits. The lateral and posterior costophrenic angles are preserved bilaterally. No definite infiltrates, suspicious opacities or abnormal interstitial markings are appreciated. The included portion of the upper abdomen is within expected limits. Procedure Note Jass Lopez MD - 07/15/2025 XR CHEST PA LATERAL 2 VIEWS HISTORY: Pre-MRI pacemaker evaluation COMPARISON: None available A chest radiograph in the PA and lateral projections were presented. FINDINGS: A biventricular pacing internal cardiac defibrillator is present entering from the left subclavian approach and follows an expected course. The leads are intact and are unchanged in position compared to the previous examination. No abandoned are present. There is no evidence of pneumothorax. The osseous structures and chest wall are grossly within expected limits. The mediastinum and brenna within expected limits. The cardiac silhouette within normal size limits. The lateral and posterior costophrenic angles are preserved bilaterally. No definite infiltrates, suspicious opacities or abnormal interstitial markings are appreciated. The included portion of the upper abdomen is within expected limits. IMPRESSION: 1. Biventricular pacing internal cardiac defibrillator which appears to be within expected limits and unchanged in course compared to the previous examination. 2. Otherwise negative chest radiograph without significant interval change. COMMENT: Please see above for additional findings. Electronically signed by: Jass Lopez M.D. Meño Blake MD IMG XR PROCEDURES Fin al Result documented in this encounter Visit Diagnoses Diagnosis Pacemaker Cardiac pacemaker in situ documented in this encounter Care Teams Yarn Handler Relationship Specialty Start Date End Date Dillan Reddy MD [address] [address] PCP - General Internal Medicine 11/09/23 Bandar Gaffney MD Consulting Physician Cardiology 04/13/21 documented as of this encounter
--- OUTSIDE RECORDS SUMMARY | 2025-07-15 13:53 | XMS_ITS | Encounter Summary ---
Author Organization [facility] Healthcare Address [address] [place] [address] Care Team Providers Care Security Compliance Specialist Name Role Phone Bandar Gaffney MD Unavailable [phone] Dillan Reddy MD Primary Care Provide r Encounter Details Date Type Department Care Team (Late st Contact Info) Description 07/15/2025 1:53 PM VEHICLE CALIBRATION ENGINEER Hospital Encounter [facility] - Imaging [address] [place] [address] Pacemaker Social History Tobacco Use [...] often do you attend chur ch or congregation services? Never 04/13/2021 Do you belong to any clubs o r organizations such as taoist groups, unions, fraternal or athletic groups, or [...] on file Legal Sex Female 2:33 AM VEHICLE CALIBRATION ENGINEER Gender Identity Not on file Sexual Orientation Not on file documented as of this encounter Plan of Treatment Not on file documented as of this encounter Procedures Procedure Name Priority Date/Time Associated Diagnosis Comments XR CHEST PA LATERAL 2 VIEWS Schedule NAIN, Read NAIN (Appt Today, Awaiting Results) 07/15/2025 2:26 PM VEHICLE CALIBRATION ENGINEER Pacemaker documented in this encounter Results * XR Chest PA Lateral 2 Views (07/15/2025 2:26 PM VEHICLE CALIBRATION ENGINEER) Anatomical Region Laterality Modality Body, Chest N/A Computed Radiogr aphy 07/15/2025 3:24 PM VEHICLE CALIBRATION ENGINEER Impressions 07/15/2025 3:24 PM VEHICLE CALIBRATION ENGINEER 1. Biventricular pacing internal cardiac defibrillator which appears to be within expected limits and unchanged in course compared to the previous examination. 2. Otherwise negative chest radiograph without significant interval change. COMMENT: Please see above for additional findings. Electronically signed by: Jass Lopez M.D. Narrative 07/15/2025 3:24 PM VEHICLE CALIBRATION ENGINEER XR CHEST PA LATERAL 2 VIEWS HISTORY: [...] situ documented in this encounter Care Teams Security Compliance Specialist Relationship Specialty Start Date End Date Dillan Reddy MD [address] [address] PCP - General Internal Medicine 11/09/23 Bandar Gaffney MD Consulting Physician Cardiology 04/13/21 documented as of this encounter
--- OUTSIDE RECORDS SUMMARY | 2025-07-15 17:21 | XMS_ITS | Encounter Summary ---
Author Organization [facility] Healthcare Address [address] [place] [address] Care Team Providers Care Admissions Rn Name Role Phone Bandar Gaffney MD Unavailable [phone] Dillan Reddy MD Primary Care Provide r Encounter Details Date Type Department Care Team (Late st Contact Info) Description 12/04/2024 Telephone [facility] Medical Group Cardiology [address] [facility] [address] [facility] [address] [place] [address] Samy Ceja MD [address] [facility] [address] [place] [address] Social History Tobacco Use Types [...] often do you attend chur ch or jain services? Never 04/13/2021 Do you belong to any clubs o r organizations such as rastafarian groups, unions, fraternal or athletic groups, or [...] on file Legal Sex Female 2:33 AM CHANGE MANAGEMENT MANAGER Gender Identity Not on file Sexual Orientation Not on file documented as of this encounter Plan of Treatment Not on file documented as of this encounter Visit Diagnoses Not on filedocumented in this encounter Care Teams Admissions Rn Relationship Specialty Start Date End Date Dillan eRddy MD [address] [address] PCP - General Internal Medicine 11/09/23 Bandar Gaffney MD Consulting Physician Cardiology 04/13/21 documented as of this encounter
--- OUTSIDE RECORDS SUMMARY | 2025-07-15 17:21 | XMS_ITS | Clinical Summary ---
Author Organization [facility] [place] [address] Address [address] [place] [address] Care Team Providers Care Mult Au Matic Operator Name Role Phone Bandar Gaffney MD Unavailable [phone] Dillan Reddy MD Primary Care Provide r [...] in situ 04/13/2021 Overview (04/21/2023): Dodge DDD [place] BI-V ICD imp on 04/12/21 for DCM, [...] Encounters Date Type Department Care Team Description 07/15/2025 1:53 PM BLISTER PACK OPERATOR Hospital Encounter [facility] - Imaging [address] [place] [phone] Pacemaker 07/15/2025 1:02 PM BLISTER PACK OPERATOR Hospital Encounter [facility] - Imaging [address] [place] [phone] Cerebral infarction, unspecified mechanism (HCC) 07/09/2025 Telephone [facility] Cardiology [address] [facility] [address] [place] [address] Samy Ceja MD 06/12/2025 10:21 AM CDT - 06/12/2025 11:59 PM CDT Hospital Encounter [facility] - Imaging [address] [place] [phone] Cerebral infarction, unspecified mechanism (HCC) Discharge Disposition: Discharge to home or self care 06/09/2025 7:15 AM CDT Ancillary Procedure [facility] Cardiology [address] [facility] [address] [place] [phone] ICD (implantable cardioverter-defibrill ator), biventricular, in situ (Primary Dx); Dilated cardiomyopathy (HCC); VT (ventricular tachycardia); Paroxysmal atrial fibrillation (HCC); ICD (implantable cardioverter-defibrill ator) discharge 06/09/2025 Telephone [facility] Cardiology [address] [place] [phone] Samy Ceja MD 05/27/2025 Telephone [facility] Cardiology [address] [place] [phone] Samy Ceja MD from Last 3 [...] often do you attend chur ch or oriental orthodox services? Never 04/13/2021 Do you belong to any clubs o r organizations such as muslim groups, unions, fraternal or athletic groups, or [...] on file Legal Sex Female 2:33 AM BLISTER PACK OPERATOR Gender Identity Not on file Sexual Orientation Not on file Last Filed Vital Signs Vital Sign Reading Time Taken Comments Blood Pressure 112/72 01/06/2025 9:56 AM CDT Pulse 60 01/06/2025 9:56 AM CDT Temperature 36.6 C (97.9 F) 03/26/2023 8:20 AM CDT Respiratory Rate 16 03/26/2023 8:20 AM CDT Oxygen Saturation 92% 01/06/2025 9:56 AM CDT Inhaled Oxygen Concentration - - Weight 68 kg (150 lb) 07/15/2025 1:45 PM BLISTER PACK OPERATOR Height 162.6 cm (5' 4) 07/15/2025 1:45 PM BLISTER PACK OPERATOR Body Mass Index 25.75 07/15/2025 1:45 PM BLISTER PACK OPERATOR Plan of Treatment Health Maintenance Due Date Last Done Comments Depression Screening 1945 Hepatitis C Screening 1945 Osteoporosis Screening-Bone Density Scan 1945 DTaP/Tdap/Td Vaccine (1 - Tdap) 1956 Hepatitis B Screening 12/02/1963 Well Visit 65+ 2010 Fall Risk Assessment 03/26/2024 03/26/2023 Covid-19 Vaccine (2024-2 6 season) 2025 05/26/2022, 02/22/2022, 06/30/2021, Additional history exists Influenza Vaccine (#1) 2025 , 05/12/2020, 06/04/2019, Additional history exists Zoster Vaccine Completed 05/01/2018, 01/04/2018 Pneumococcal vaccine 65+ Completed 05/15/2018, 11/2015 Medical Devices Implanted Type Area Manager Psychology Device Identifier Shelf Expiration Date Model / Serial / Lot Dodge Vascular [id number] Defib Cardiac [id number] [id number] [place] Hf Df4 Is-4 Is-1 Cnctr - [id number] - [id number] Implanted:Qty: 1 on 04/12/2021 by Bandar Gaffney MD at [facility] ICD [employer] V[employer] [id number] 02/01/2023 C [id number] / [id number] / [employer] 7120q/65 Durata 7fr 65cm 2 Coil Df-4 True Bipolar Active Fixation - [id number] - [id number] Implanted:Qty: 1 on 04/12/2021 by Bandar Gaffney MD at [facility] Lead [employer] [id number] 02/01/2022 7120Q/65 / [id number] / [employer] 2088tc/52 Tendril Sts 6fr 52cm Is-1 Connector Active Fixation Bipolar Soft - [id number] - [id number] Implanted:Qty: 1 on 04/12/2021 by Bandar Gaffney MD at [facility] Lead [employer] [id number] 03/03/2024 2088TC/52 / [id number] / [employer] 1458q/86 Quartet 5fr [id number] 4 Electrode Is-4 Connector Steerable Tip - [id number] - [id number] Implanted:Qty: 1 on 04/12/2021 by Bandar Gaffney MD at [facility] Lead [employer] [id number] 02/02/2024 1458Q/86 / [id number] / Procedures Procedure Name Priority Date/Time Associated Diagnosis Comments MRI BRAIN WO CONTRAST Schedule Routine, Read Routine (OP Routine) 07/15/2025 3:57 PM BLISTER PACK OPERATOR Cerebral infarction, unspecified mechanism (HCC) XR CHEST PA LATERAL 2 VIEWS Schedule NAIN, Read NAIN (Appt Today, Awaiting Results) 07/15/2025 2:26 PM BLISTER PACK OPERATOR Pacemaker DEVICE CHECK - REMOTE Routine 06/17/2025 11:29 AM CDT Dilated cardiomyopathy (HCC) VT (ventricular tachycardia) Paroxysmal atrial fibrillation (HCC) MRI SAFETY, TECHNICAL ASSESSMENT, 15 MIN Schedule Routine, Read Routine (OP Routine) 06/12/2025 10:22 AM CDT Cerebral infarction, unspecified mechanism (HCC) from Last 3 Months Results * MRI Brain WO Contrast (07/15/2025 3:57 PM BLISTER PACK OPERATOR) Anatomical Region Laterality Modality Head and Neck N/A Magnetic Resonan ce 07/15/2025 4:06 PM BLISTER PACK OPERATOR Impressions 07/15/2025 4:06 PM BLISTER PACK OPERATOR No acute intracranial abnormality. Suggestion of a large arachnoid cyst along the left parietal convexity. Electronically signed by: Alon Vasquez MD Narrative 07/15/2025 4:06 PM BLISTER PACK OPERATOR EXAMINATION: Magnetic resonance imaging (MRI) of [...] MD IMG MRI PROCEDURES Fi nal Result * XR Chest PA Lateral 2 Views (07/15/2025 2:26 PM BLISTER PACK OPERATOR) Anatomical Region Laterality Modality Body, Chest N/A Computed Radiogr aphy 07/15/2025 3:24 PM BLISTER PACK OPERATOR Impressions 07/15/2025 3:24 PM BLISTER PACK OPERATOR 1. Biventricular pacing internal cardiac defibrillator which appears to be within expected limits and unchanged in course compared to the previous examination. 2. Otherwise negative chest radiograph without significant interval change. COMMENT: Please see above for additional findings. Electronically signed by: Jass Lopez M.D. Narrative 07/15/2025 3:24 PM BLISTER PACK OPERATOR XR CHEST PA LATERAL 2 VIEWS HISTORY: [...] MD IMG XR PROCEDURES Fin al Result * DEVICE CHECK - REMOTE (06/17/2025 11:29 AM CDT) Anatomical Region Laterality Modality Other Narrative 06/23/2025 7:18 AM CDT Dodge DDD [place] BI-V ICD imp on 04/12/21 for DCM, VT, Afib. Yeimy. Nora. Omega remote. Bluetooth [employer] Advisory--risk for loss [...] warfarin Follow up: Office Pacemaker/ICD scheduled 05/27/26 Omega remote 09/09/25 Chadd Martínez, LCARITZA Samy Ceja MD [facility] PROC EDURES Final Result * MRI Safety, Technical Assessment, 15 min (06/12/2025 10:22 AM CDT) Narrative RAD_PACS_[facility] - 06/12/2025 10:29 AM CDT This study [...] [facility] Address: [address] [address] [place] [address] [employer]HC MEDICARE ADVANTAGE [facility] Address: [address] [address] [place] [address] [facility] MEDICARE ADVANTAGE [facility] Address: [facility] [address] [place] [address] Advance Directives For more information, please contact: [phone] * Full Code (Latest Code Status on File) Date Activated Date Inactivated Comments 03/23/2023 7:04 AM 03/26/2023 7:27 PM Care Teams Mult Au Matic Operator Relationship Specialty Start Date End Date Dillan Reddy MD [address] [address] PCP - General Internal Medicine 11/09/23 Bandar Gaffney MD Consulting Physician Cardiology 04/13/21
--- OUTSIDE RECORDS SUMMARY | 2025-07-15 17:21 | XMS_ITS | Encounter Summary ---
Author Organization [facility] Healthcare Address [address] [place] [address] Care Team Providers Care Clinical Allergist Name Role Phone Lana Tovar MD Primary Care Provider + Bandar Gaffney MD Unavailable [phone] Dillan Reddy MD Primary Care Provide r Encounter Details Date Type Department Care Team (Late st Contact Info) Description 03/26/2018 Orders Only [facility] Health Information Management [address] [place] [id number] Scanning, Provider Social History Tobacco Use Types Packs/Day Years Used Date Smoking Tobacco: Never Smokeless Tobacco: Never Alcohol Use Standard Drinks/Week Comments No 0 (1 standard drink = 0.6 oz pur e alcohol) Comments Unknown Sex and Gender Information Value Date Recorded Sex Assigned at Not on file 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
--- OUTSIDE RECORDS SUMMARY | 2025-07-15 17:21 | XMS_ITS | Encounter Summary ---
Author Organization [facility] Address [address] [facility] [address] [place] [address] Care Team Providers Care Shade Cloth Finisher Name Role Phone Lana Tovar MD Primary Care Provider + Lana Tovar MD Primary Care Provider + Bandar Gaffney MD Unavailable [phone] Dillan Reddy MD Primary Care Provide r Encounter Details Date Type Department Care Team (Late st Contact Info) Description 2016 Orders Only [facility] ProviderSaurabh MD [address] [place] [address] Social History Tobacco Use Types Packs/Day Years Used Date Smoking Tobacco: Never Alcohol Use Standard Drinks/Week Comments No 0 (1 standard drink = 0.6 oz pur e alcohol) Comments Unknown Sex and Gender Information Value Date Recorded Sex Assigned at Not on file 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
--- OUTSIDE RECORDS SUMMARY | 2025-07-15 17:21 | XMS_ITS | Patient Health Record ---
Author Organization [facility] [employer] [facility] Address [address] [place] [address] Care Team Providers Care Service Associate Name Role Phone Maureen URBINA, Masoud Primary Care Provider Un available Patric Amaya Unavailable [phone] Allergies Allergen (clinical drug ingredient) Drug/Non Drug [...] Vaccine 1st dose Unknown 02/22/2022 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 [employer] Covid-19 Vac cine 2nd dose Unknown 05/26/2022 [...] Relies On Adrianna For Care And Transportation Problems Problem Type SNOMED Code ICD Code Onset Dates Problem Status W/U Status Risk Notes Problem Bipolar affective disorder, currently depressed, mild (197468212) Bipolar disorder, current episode depressed, mild (F31.31) Active confirmed Problem Generalized anxiety disorder (84600932) Generalized anxiety disorder (F41.1) Active confirmed Problem Primary insomnia (4686305) Primary insomnia (F51.01) Active confirmed Problem Alzheimer's disease with late onset (361528067) Alzheimer's disease with late onset (G30.1) Active confirmed Problem Cardiomyopathy (60869811) Cardiomyopathy, unspecified (I42.9) Active confirmed Problem Heart failure (81044770) Heart failure, unspecified (I50.9) Active confirmed Problem Cerebral infarction (918013205) Cerebral infarction, unspecified (I63.9) Active confirmed Problem Recurrent falls (668009540) Repeated falls (R29.6) Active confirmed Problem Generalized anxiety disorder (85206936) CAM[place] (generalized anxiety disorder) (F41.1) Active confirmed Problem Hyperlipidemia (50817069) Hyperlipidemia (E78.5) 03/22/20 21 Active confirmed Problem Hypothyroidism (10374111) Hypothyroidism (E03.9) 03/22/20 21 Active confirmed Problem Cardiomyopathy (02915195) Cardiomyopathy (I42.9) 03/22/20 21 Active confirmed Problem Left bundle branch block (31491967) Left bundle branch block (LBBB) (I44.7) 03/23/20 21 Active confirmed Problem Ventricular tachycardia (disorder) (81202674) VT (ventricular tachycardia) (I47.20) 04/12/20 21 Active confirmed Problem Automatic implantable cardiac defibrillator in situ (674363800) ICD (implantable cardioverter-defi brillator), biventricular, in situ (Z95.810) 04/21/20 23 Active confirmed Vital Signs Heart Rate 76 /min 07/09/2025 Height-cm 165.1 cm 07/09/2025 Blood pressure diastolic 80 mm Hg 07/09/2025 Weight-kg 72.58 kg 07/09/2025 Height 65.00 in 07/09/2025 Blood pressure systolic 122 mm Hg 07/09/2025 Weight 160 lbs 07/09/2025 BMI 26.62 kg/m2 07/09/2025 Encounters Encounter Location Date Provider Diagnosis [facility] [employer] [address] [address] 07/15/2024 Patric Jose Luis Bipolar disorder, current episode depressed, mild F31.31 ; Cardiomyopathy, unspecified I42.9 ; Primary insomnia F51.01 ; Alzheimer's disease with late onset G30.1 ; CAMDEN (generalized anxiety disorder) F41.1 ; Hyperlipidemia E78.5 ; Left bundle branch block (LBBB) I44.7 and Hypothyroidism E03.9 [facility] [employer] [place] [address] [facility] [address] [address] 09/19/2024 Patric Jose Luis Bipolar disorder, current episode depressed, mild F31.31 ; Cardiomyopathy, unspecified I42.9 ; Primary insomnia F51.01 ; Alzheimer's disease with late onset G30.1 ; CAMDEN (generalized anxiety disorder) F41.1 ; Hyperlipidemia E78.5 ; Left bundle branch block (LBBB) I44.7 and Hypothyroidism E03.[address] [address] 10/17/2024 Patric Jose Luis Bipolar disorder, current episode depressed, mild F31.31 ; Primary insomnia F51.01 ; Alzheimer's disease with late onset G30.1 ; CAMDEN (generalized anxiety disorder) F41.1 ; Hyperlipidemia E78.5 and Hypothyroidism E03.[address] [address] 11/14/2024 Patric Jose Luis Encounter for screen ing for depression Z13.31 ; Encounter for screening for cardiovascular disorders Z13.6 ; Bipolar disorder, current episode depressed, mild F31.31 ; Primary insomnia F51.01 ; Alzheimer's disease with late onset G30.1 ; CAMDEN (generalized anxiety disorder) F41.1 ; Hyperlipidemia E78.5 and Hypothyroidism E03.[address] [address] 12/12/2024 Patric Jose Luis Encounter for screen ing for cardiovascular disorders Z13.6 ; Encounter for screening for depression Z13.31 ; Bipolar disorder, current episode depressed, mild F31.31 ; Primary insomnia F51.01 ; Alzheimer's disease with late onset G30.1 ; CAMDEN (generalized anxiety disorder) F41.1 ; Hyperlipidemia E78.5 and Hypothyroidism E03.[address] [address] 01/09/2025 Patric Jose Luis Bipolar disorder, current episode depressed, mild F31.31 ; Primary insomnia F51.01 ; Alzheimer's disease with late onset G30.1 ; CAMDEN (generalized anxiety disorder) F41.1 ; Negative depression screening Z13.31 and Encounter for screening for cardiovascular disorders Z13.[address] [address] 02/13/2025 Patric Jose Luis Bipolar disorder, current episode depressed, mild F31.31 ; Primary insomnia F51.01 ; Alzheimer's disease with late onset G30.1 ; Dietary counseling and surveillance Z71.3 ; CAMDEN (generalized anxiety disorder) F41.1 ; Encounter for screening for cardiovascular disorders Z13.6 and Encounter for screening for depression Z13.[address] [address] 03/12/2025 Patric Jose Luis Bipolar disorder, current episode depressed, mild F31.31 ; Primary insomnia F51.01 ; Alzheimer's disease with late onset G30.1 ; CAMDEN (generalized anxiety disorder) F41.1 and Heart failure, unspecified I50.[address] 162 [facility] [address] [place] [address] 04/09/2025 Patric Jose Luis Bipolar disorder, current episode depressed, mild F31.31 ; Primary insomnia F51.01 ; Alzheimer's disease with late onset G30.1 ; CAMDEN (generalized anxiety disorder) F41.1 and Repeated falls R29.[address] [address] 05/12/2025 Patric Jose Luis Bipolar disorder, current episode depressed, mild F31.31 ; Primary insomnia F51.01 ; Alzheimer's disease with late onset G30.1 ; CAMDEN (generalized anxiety disorder) F41.1 ; Cerebral infarction, unspecified I63.9 ; Muscle weakness (generalized) M62.81 and Abnormal weight loss R63.[address] [address] 06/11/2025 Patric Jose Luis Bipolar disorder, current episode depressed, mild F31.31 ; Primary insomnia F51.01 ; Alzheimer's disease with late onset G30.1 ; CAMDEN (generalized anxiety disorder) F41.1 ; Cerebral infarction, unspecified I63.9 ; Abnormal weight loss R63.4 ; ICD (implantable cardioverter-defibrillat or), biventricular, in situ Z95.810 and Pneumonia, unspecified organism J18.[address] [address] 07/09/2025 Patric Jose Luis Bipolar disorder, current episode depressed, mild F31.31 ; Primary insomnia F51.01 ; Alzheimer's disease with late onset G30.1 ; CAMDEN (generalized anxiety disorder) F41.1 and Urinary tract infection, site not specified N39.0 [facility] [employer] [facility] [address] [place] [address] 08/16/2024 Patricyashira Amaya Generalized anxiety disorder F41.1 [facility] [employer] [facility] [address] [place] [address] 09/13/2024 Patric Jose Luis Generalized anxiety disorder F41.1 and Primary insomnia F51.01 [facility] [employer] [facility] [address] [place] [address] 11/26/[address] [facility] [employer] [facility] [address] [place] [address] 03/28/2025 Patricyashira Amaya Assessments Encounter Date Diagnosis [...] be confirmed. - Consider referral to a technical support analyst or associate professor of geology for further evaluation and management. Bipolar Disorder [...] mentions buying her son a turkey for [employer] and preferring phone conversations over in-person visits. - Plan: - Encourage the patient to maintain open communication with her family members. - Offer support and resources as needed for any social or emotional concerns. Insurance and Healthcare Access - Assessment: The patient has [employer] insurance and is concerned about potential changes in network coverage, specifically mentioning [place] potentially going out of network. - Plan: [...] F31.31) 03/12/2025 Primary insomnia (ICD-10 - F51.01) 05/12/2025 Bipolar disorder, current episode depressed, mild [...] unspecified 05/12/2025 Primary insomnia (ICD-10 - F51.01) 07/09/2025 Bipolar [...] trazodone 50 mg, one tablet at bedtime. 06/11/2025 Bipolar disorder, current episode depressed, mild (ICD-10 - F31.31) CancelRx Response got Denied on 2025-07-09 15:31:49 for 'Venlafaxine HCl ER 37.5 MG Capsule Extended Release 24 Hour'Pharmacy Notes: Prescription not found. Contact Pharmacy by other means 06/11/2025 Primary insomnia (ICD-10 - F51.01) 04/09/2025 Bipolar [...] memory issues and adjust treatment as needed. 06/11/2025 Alzheimer's disease with late onset (ICD-10 - G30.1) 07/09/2025 Alzheimer's disease with late onset (ICD-10 - G30.1) Patient reported memory issues, improved after UTI treatment. Donepezil continued for memory support. - Continue donepezil. 05/12/2025 Alzheimer's disease with late onset (ICD-10 - G30.1) 03/12/2025 Alzheimer's disease with late onset (ICD-10 [...] be confirmed. - Consider referral to a technical support analyst or associate professor of geology for further evaluation and management. Bipolar Disorder [...] Healthcare Access - Assessment: The patient has [employer] insurance and is concerned about potential changes in network coverage, specifically mentioning [place] potentially going out of network. - Plan: [...] be confirmed. - Consider referral to a technical support analyst or associate professor of geology for further evaluation and management. Bipolar Disorder [...] Healthcare Access - Assessment: The patient has [employer] insurance and is concerned about potential changes in network coverage, specifically mentioning [place] potentially going out of network. - Plan: [...] CAMDEN (generalized anxiety disorder) (ICD-10 - F41.1) 07/09/2025 CAM[place] (generalized anxiety disorder) (ICD-10 - F41.1) Patient reports increased anxiety and nervousness. Expressed worry about aging and feeling 'too old.'. 06/11/2025 CAM[place] (generalized anxiety disorder) (ICD-10 - F41.1) Patient reports increased anxiety and nervousness. Expressed worry about aging and feeling 'too old.'. 04/09/2025 CAM[place] (generalized anxiety disorder) (ICD-10 - [...] self-care and monitoring for any new symptoms. 06/11/2025 Cerebral infarction, unspecified (ICD-10 - I63.9) [...] - Consider medication adjustments if symptoms persist. 05/12/2025 Cerebral infarction, unspecified (ICD-10 - I63.9) Recent stroke confirmed by patient history and multiple hospital admissions. MRI performed, results not communicated to patient. Three hospitalizations , including a four-day stay at [facility]. 07/09/2025 Urinary tract infection, site not specified (ICD-10 - N39.0) Recent hospitalization for UTI. Symptoms included weakness and memory impairment. Memory improved after UTI treatment. 12/12/2024 Primary insomnia (ICD-10 - F51.01) 01/09/2025 CAMDEN (generalized anxiety disorder) (ICD-10 - F41.1) 11/14/2024 Primary insomnia (ICD-10 - F51.01) 10/17/2024 Hyperlipidemia (ICD-10 - E78.5) 09/19/2024 Alzheimer's [...] be confirmed. - Consider referral to a technical support analyst or associate professor of geology for further evaluation and management. Bipolar Disorder [...] Healthcare Access - Assessment: The patient has [employer] insurance and is concerned about potential changes in network coverage, specifically mentioning [place] potentially going out of network. - Plan: [...] be confirmed. - Consider referral to a technical support analyst or associate professor of geology for further evaluation and management. Bipolar Disorder [...] Healthcare Access - Assessment: The patient has [employer] insurance and is concerned about potential changes in network coverage, specifically mentioning [place] potentially going out of network. - Plan: [...] if needed. 10/17/2024 Hypothyroidism (ICD-10 - E03.9) 09/19/2024 CAMDEN [...] a couple of days ago. Patient contacted [employer] to reset device. 05/12/2025 Abnormal weight loss [...] be confirmed. - Consider referral to a technical support analyst or associate professor of geology for further evaluation and management. Bipolar Disorder [...] Healthcare Access - Assessment: The patient has [employer] insurance and is concerned about potential changes in network coverage, specifically mentioning [place] potentially going out of network. - Plan: [...] be confirmed. - Consider referral to a technical support analyst or associate professor of geology for further evaluation and management. Bipolar Disorder [...] Healthcare Access - Assessment: The patient has [employer] insurance and is concerned about potential changes in network coverage, specifically mentioning [place] potentially going out of network. - Plan: [...] be confirmed. - Consider referral to a technical support analyst or associate professor of geology for further evaluation and management. Bipolar Disorder [...] Healthcare Access - Assessment: The patient has [employer] insurance and is concerned about potential changes in network coverage, specifically mentioning [place] potentially going out of network. - Plan: [...] devices or physical therapy if needed. 09/19/2024 Other referral to the local chapter [...] to Furosemide (Lasix) issue. Upcoming appointment with naturalist on the . - Plan: - Monitor [...] member for money and food. Power of attorney law clerk is with brother Mauricio Pacheco. - Plan: - Encourage patient to discuss financial concerns with power of attorney law clerk and establish boundaries with family members. Bipolar [...] cardiac device monitoring - Follow up with technical support analyst as scheduled in February [employer]ges Assessment: [...] without a caregiver for 2 months. A airport representative from an aging services organization has contacted [employer] to address this issue. Plan: - Follow up on the status of caregiver assignment through [employer] Disclaimer: This note has been transcribed using speech recognition software and serves as a reflection of the patient's visit. While efforts have been made to ensure accuracy, there may be errors, including chainstitch pants outseamer inaccuracies and misspellings of medication names. This document should not be considered a verbatim record, and any discrepancies should be verified with the provider. 01/09/2025 Other Medication Management and Access - Assessment: Patient reports discontinuation of Entresto due to loss of sample access and high jqy-in-fxmigm costs (approximately $600/month). This has led to [...] or reduced-cost medications. - Follow up with technical support analyst (Dr. Rodriguez) regarding medication changes and current [...] functioning. - Consider referral to social insurance adviser for additional support if needed. Mood and [...] without using your hands.3. Strength Training Exercises- Gup-ey-ditsb: rise from a chair repeatedly.- Wall push-ups: [...] Provider Name:Patric Amaya , 08/11/2025 01:30:00 PM, [address], [facility] [address], [place], [address], Provider Name:Patric Amaya , 09/10/2025 01:30:00 PM, [address], [address], [place], [address], Provider Name:Patric Amaya , 10/15/2025 01:30:00 PM, [address], [address], [place], [address], Insurance Providers Payer Name Payer Address Payer Phone Subscriber Number Group Number Insured Name Patient Relationship to Insured Coverage Start Date Coverage End Date [employer] Medicare Replacement/ Advantage - Ppo [address] [address] [place] [address] [id number] JAILENE MARTINO Self - patient is the [...] Date(Month/Year) Implantation of cardiac defibrillator libby cook ([id number]) 04/12/2021 Hospitalization History Reason Date(Month/Year) Fall and pneumonia, a week ago monday Stroke, silvana or, date not specified Stroke, silvana or, four-day admission Stroke, silvana or, two additional admi ssions Pneumonia, [facility] or [facility], date not specified Urinary tract infection, silvana (hospi jose), monday to monday
--- OUTSIDE RECORDS SUMMARY | 2025-07-15 17:21 | XMS_ITS | Clinical Summary ---
Author Organization [facility] Address [address] [place] [address] Phone Care Team Providers Care Medical Reception Name Role Phone Lana Tovar MD Primary [...] to complete this topic Insurance MEDICARE C [facility] Care Teams Medical Reception Relationship Specialty Start Date End Date Lana Tovar MD [address] [place] [address] PCP - General Family Medicine 12/23/16
--- OUTSIDE RECORDS SUMMARY | 2025-07-15 17:21 | XMS_ITS | Clinical Summary ---
Author Organization [facility] Address [address] [place] [address] Care Team Providers Care Maintenance Mechanic Name Role Phone Unavailable Primary Care Provider [...] 75+ series) 2020 COVID-19 Vaccine ( - 2024-2 6 season) 2025 Influenza Adult (#1) 2025 Hepatitis A Vaccines Aged Out No long er eligible based on patient's age to complete this topic Meningococcal B Vaccine Aged Out No l onger eligible based on patient's age to complete this topic Meningococcal Vaccine Aged Out No graciela yovana eligible based on patient's age to complete this topic RSV Immunizations Under 20 Months Aged Out No longer eligible based on patient's age to complete this topic Advance Directives Documents on File Type Date Recorded Patient Dialysis Technician Expl anation Advance Directives and Living Will 01/14/2016 12:00 AM [employer]VANCED DIRECTIVES
--- OUTSIDE RECORDS SUMMARY | 2025-07-15 17:21 | XMS_ITS | Encounter Summary ---
Author Organization [facility] Healthcare Address [address] [place] [address] Care Team Providers Care Packing Machine Pilot Can Router Name Role Phone Lana Tovar MD Primary Care Provider + Bandar Gaffney MD Unavailable [phone] Dillan Reddy MD Primary Care Provide r Encounter Details Date Type Department Care Team (Late st Contact Info) Description 01/17/2018 Orders Only [facility] Health Information Management [address] [place] [address] Scanning, Provider Social History Tobacco Use Types Packs/Day Years Used Date Smoking Tobacco: Never Alcohol Use Standard Drinks/Week Comments No 0 (1 standard drink = 0.6 oz pur e alcohol) Comments Unknown Sex and Gender Information Value Date Recorded Sex Assigned at Not on file 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
--- OUTSIDE RECORDS SUMMARY | 2025-07-15 17:21 | XMS_ITS | Encounter Summary ---
Author Organization [facility] Healthcare Address [address] [place] [address] Care Team Providers Care Manager Of Operations Name Role Phone Bandar Gaffney MD Unavailable [phone] Dillan Reddy MD Primary Care Provide r Encounter Details Date Type Department Care Team (Late st Contact Info) Description 07/09/2025 Telephone [facility] Medical Group Cardiology [address] [facility] [address] [address] Samy Ceja MD [address] [facility] [address] [place] [address] Social History Tobacco Use Types [...] often do you attend chur ch or rastafarian services? Never 04/13/2021 Do you belong to [...] on file Legal Sex Female 2:33 AM DEPUTY CORONER Gender Identity Not on file Sexual Orientation Not on file documented as of this encounter Miscellaneous Notes * Telephone Encounter - Kayla Aguilera MA - 07/15/2025 4:11 PM CST LM Calling to ask pt who prescribed medication and get the dose. TY CORONER * Telephone Encounter - Elizabeth Benito - 07/09/2025 10:31 AM CST Patient called in and states that she only has one pill left of hydralazine. She is asking for a supply to be sent to [facility] in [place]. Please advise. Thank you. Contact : [phone] TY CORONER documented in this encounter Plan of Treatment Not on file documented as of this encounter Visit Diagnoses Not on filedocumented in this encounter Care Teams Manager Of Operations Relationship Specialty Start Date End Date Dillan Reddy MD [address] [address] PCP - General Internal Medicine 11/09/23 Bandar Gaffney MD Consulting Physician Cardiology 04/13/21 documented as of this encounter
--- OUTSIDE RECORDS SUMMARY | 2025-07-15 17:21 | XMS_ITS | Encounter Summary ---
Author Organization [facility] Healthcare Address [address] [place] [address] Care Team Providers Care Barrel Reamer Name Role Phone Bandar Gaffney MD Unavailable [phone] Dillan Reddy MD Primary Care Provide r Encounter Details Date Type Department Care Team (Late st Contact Info) Description 03/25/2025 Orders Only [facility] [place] Information Management [address] [place] [address] Scanning, Provider Social History Tobacco Use Types [...] often do you attend chur ch or lutheran services? 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
[2025-07-15 17:27] VITALS: BP 155/72; PULSE 68; RESP 18; TEMP 36.6; O2SAT 96
--- OUTSIDE RECORDS SUMMARY | 2025-07-15 17:42 | XMS_ITS | Encounter Summary ---
Author Organization [facility] Healthcare Address [address] [place] [address] Care Team Providers Care Microfilm Clerk Name Role Phone Bandar Gaffney MD Unavailable [phone] Dillan Reddy MD Primary Care Provide r Encounter Details Date Type Department Care Team (Late st Contact Info) Description 03/25/2025 Orders Only [facility] Health Information Management [address] [place] [address] Scanning, Provider Social History Tobacco Use Types [...] often do you attend chur ch or latter-day services? 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
--- OUTSIDE RECORDS SUMMARY | 2025-07-15 17:42 | XMS_ITS | Encounter Summary ---
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 E ADJUSTER * Telephone Encounter - Elizabeth Benito - 07/09/2025 10:31 AM CST Patient called in and states that she only has one pill left of hydralazine. She is asking for a supply to be sent to [facility] in [place]. Please advise. Thank you. Contact : [phone] E ADJUSTER documented in this encounter Plan of Treatment Not on file documented as of this encounter Visit Diagnoses Not on filedocumented in this encounter Care Teams Food Concession Manager Relationship Specialty Start Date End Date Dillan Reddy MD [address] [address] PCP - General Internal Medicine 11/09/23 Bandar Gaffney MD Consulting Physician Cardiology 04/13/21 documented as of this encounter
--- OUTSIDE RECORDS SUMMARY | 2025-07-15 17:42 | XMS_ITS | Data Portability ---
Author Organization [place] [employer], Main Office Address [address] [place] [address] Care Team Providers Care Developer [employer] Name Role Phone ROSEIVSHNUROQUE Holden Primary Care Provider [phone] LANA TOVAR Referring Provider PEDRO AMAYA Psychiatrist LORETA HAQUE Director [employer] JENNIFFER ROJAS Veterinarian Helper EVON CEJA Cardiac Surgeon [phone] Assessment Encounter Date Assessment Date Assessment LastModified [...] done as follows: Respiratory allergen panel for [facility] Serum IgE Serum total IgG, IgG1, IgG2, IgG3, IgG4 Dzfdl-7-szrhruikhx n phenotype and level TB stimulated gamma [...] and GGO Chest CT 04/22/24 no nodules [place] PFT 05/25/23 decreased FEV1/FVC, FEV1 1.52 L (73%), TLC 5.26 L (101%), RV 3.04 L (128%), DLCO 54%, DLCO/VA 74% [place] PFT 11/08/24 decreased FEV1/FVC, FEV1 1.28 L [...] did discuss with the HH RN 04/21/2025: [place] [facility] BUN 25, Cr 1.19, GFR 44, [...] 2024 025 [email or web address] [facility] [address], [place], [address], 05/07/2025 13:29:07 urinalysi s, complete 2024 025 [facility] (Lab), [address], [place], [address], 05/08/2025 00:04:11 culture, urine + sensitivi ty 2024 025 [facility] (Lab), [address], [place], [address], 05/10/2025 11:51:26 INR, blood [address] (Lab), [address], [place], [address], 05/15/2025 16:29:37 CMP, serum or plasma 2024 025 [facility] (Lab), [address] [place], [address], 07/11/2025 20:37:49 lipid panel, serum 2024 025 [facility] (Lab), [address] [place], [address], 05/07/2025 17:37:51 CBC w/ auto diff 2024 025 [facility] (Lab), [address] [place], [address], 07/11/2025 18:38:45 TSH, serum or plasma 2024 025 [facility] (Lab), [address] [place], [address], 05/07/2025 17:37:51 T4, free, serum 2024 025 [facility] (Lab), [address] [place], [address], 05/07/2025 17:37:51 vitamin B12 + folate, serum or blood 2024 025 [facility] (Lab), [address] [place], [address], 05/07/2025 17:37:51 CMP, serum or plasma 2024 025 [facility] (Lab), [address] [place], [address], 05/07/2025 15:59:19 lipid panel, serum [address] (Lab), [address] [place], [address], 04/21/2025 16:58:10 CBC w/ auto diff [address] (Lab), [address] [place], [address], 04/21/2025 16:58:10 TSH, serum or plasma [address] (Lab), [address] [place], [address], 04/21/2025 16:58:11 T4, free, serum [address] (Lab), [address] [place], [address], 04/21/2025 16:58:11 vitamin B12 + folate, serum or blood [address] (Lab), [address] [place], [address], 04/21/2025 16:58:11 CMP, serum or plasma 2024 025 [facility] (Lab), [address] [place], [address], 04/22/2025 01:40:15 lipid panel, serum 2024 025 [facility] (Lab), [address] [place], [address], 07/12/2025 04:05:35 CBC w/ auto diff 2024 025 [facility] (Lab), [address] [place], [address], 03/25/2025 02:16:42 TSH, serum or plasma 2024 025 [facility] (Lab), [address] [place], [address], 07/12/2025 04:05:35 T4, free, serum 2024 025 [facility] (Lab), [address] [place], [address], 07/12/2025 04:05:36 vitamin B12 + folate, serum or blood 2024 025 [facility] (Lab), [address] [place], [address], 07/12/2025 04:05:36 alpha-1-a ntitrypsi n (aat) phenotype , serum [address] - Outpatient Lab, [address] [place], [address], 04/03/2025 12:06:48 BNP (B-type natriuret ic peptide), serum or plasma [email or web address] [place] [address] - Outpatient Lab, [address] [place], [address], 04/03/2025 12:07:01 ige, total, serum [id number] - Outpatient Lab, [address] [place], [address], 04/03/2025 12:07:16 tb (M tuberculo sis), ifn-gamma giovanni, blood 2024 025 [facility] Outpatient Lab, [address] [place], [address], 02/21/2025 08:41:01 eosinophi l count, manual, blood (OBS) 2024 025 [facility] Outpatient Lab, [address] [place], [address], 02/21/2025 08:41:31 [address] s 1+2+3+4, serum [address] - Outpatient Lab, [address] [place], [address], 04/03/2025 12:07:28 respirato ry allergen panel - [facility] b 2024 025 [facility] Outpatient Lab, [address] [place], [address], 02/21/2025 08:39:13 Referral gynecolog ist referral - Please call patient to schedule an appointme nt. Thank you. 2024 025 [email or web address] Johanne Conway MD, [address], [place], [address], 07/15/2025 09:30:11 nephrolog ist referral - Please call patient to schedule an appointme nt. Thank you. 2024 025 BROWN Causey MD, [address], [address], [place], [address], 05/08/2025 11:22:39 cardiolog ist referral - Please call patient to schedule an appointme nt. Thank you. 2024 025 BROWN Ceja MD, [address], [address], [place], [address], 05/08/2025 11:50:05 nephrolog ist referral - Please call patient to schedule an appointme nt. Thank you. 2024 025 BROWN Causey MD, [address], [address], [place], [address], 04/22/2025 15:04:08 gynecolog ist referral - Please call patient to schedule an appointme nt. Thank you. 2024 025 [email or web address] Johanne Conway MD, [address] [facility] [address], [address], [place], [address], 07/15/2025 09:30:20 cardiolog ist referral - Please call patient to schedule an appointme nt. Thank you. 2024 025 BROWN Ceja MD, [address], [address], [place], [address], 04/22/2025 15:49:07 pulmonolo gist referral - Please call patient to schedule an appointme nt. Thank you. 2024 025 [email or web address] Loreta Haque MD, [address] [place], [address], 04/22/2025 14:30:41 gynecolog ist referral - Please call patient to schedule an appointme nt. Thank you. 2024 025 [email or web address] Johanne Conway MD, [address], [address], [place], [address], 07/15/2025 09:30:28 pulmonolo gist referral - Please call patient to schedule an appointme nt. Thank you. 2024 025 [email or web address] Haque MD, [address] [place], [address], 04/21/2025 10:20:39 Procedures None recorded. Surgeries None recorded. Imaging MAMMO, screening , bilateral - Please call patient to schedule. [address] (Imaging), [facility] [place] [address], [phone], 05/07/2025 14:19:18 MAMMO, screening , bilateral - Please call patient to schedule. [address] (Imaging), [facility] [address] [place] [address], [phone], 04/21/2025 16:11:26 MAMMO, screening , bilateral - Please call patient to schedule. [address] (Imaging), [facility] [address] [place] [address], [phone], 04/14/2025 19:25:03 Medication Orders albuterol sulfate HFA 90 mcg/actua tion aerosol inhaler 2024 025 [facility] [address] [place], [address], 04/21/2025 14:37:01 nystatin- triamcino lone 100,000 unit/g-0. 1 % topical cream 2024 025 [facility] [address] [place], [address], 01/13/2025 15:43:11 albuterol sulfate HFA 90 mcg/actua tion aerosol inhaler 2024 025 [facility], [address] [place], [address], 04/21/2025 14:37:01 Patient TargetsNo targets recorded. Patient Instructions Encounter Date Encounter Id Patient Instructions Last Modified By Organization Details Last Modified Time 05/07/2025 [id number] Thank you for your visit to our [...] from another person Required Home Health Services: jail, physical therapy, occupational therapy Durable Medical Equipment needed: walker Billing Guidelines CPT code 35401- Transitional Care Management services with moderate medical decision complexity (fewj-qd-iucv visit within 14 days of discharge). CPT code 86207- Transitional Care Management services with high medical decision complexity (zkac-kn-hfwn visit within 7 days of discharge). Not available 05/07/2025 12:16:27 Reason for Referral Rn Testing Referral for Gy necologic examination Please call patient to schedule an appointment. Thank you. Referring Physician: Roque Reddy, Internal Medicine, Encounter Date: 01/13/2025 Director Water And Waste Services Referral for M ultiple nodules of lung Please call patient to schedule an appointment. Thank you. Referring Physician: Roque Reddy, Internal Medicine, Encounter Date: 01/13/2025 Rn Testing Referral for Gy necologic examination Please call patient to schedule an appointment. Thank you. Referring Physician: Roque Reddy, Internal Medicine, Encounter Date: 04/21/2025 Director Water And Waste Services Referral for M ultiple nodules of lung Please call patient to schedule an appointment. Thank you. Referring Physician: Roque Reddy Internal Medicine, Encounter Date: 04/21/2025 Furrier Shop Supervisor Referral for Ch ronic kidney disease Please call patient to schedule an appointment. Thank you. Referring Physician: Roque Reddy Internal Medicine, Encounter Date: 04/21/2025 Marketing Operations Coordinator Referral for Es sential hypertension Please call patient to schedule an appointment. Thank you. Referring Physician: Roque Reddy Internal Medicine, Encounter Date: 04/21/2025 Rn Testing Referral for Gy necologic examination Please call patient to schedule an appointment. Thank you. Referring Physician: Roque Reddy Internal Medicine, Encounter Date: 05/07/2025 Furrier Shop Supervisor Referral for Ch ronic kidney disease Please call patient to schedule an appointment. Thank you. Referring Physician: Roque Reddy Internal Medicine, Encounter Date: 05/07/2025 Marketing Operations Coordinator Referral for Es sential hypertension Please call patient to schedule an appointment. Thank you. Referring Physician: Roque Reddy Internal Medicine, Encounter Date: 05/07/2025 Results Created Date Observation Date Name Description Value Unit Range Abnormal Flag Note LastModifiedBy Organization Detail LastModifiedTime 01/17/20 25 01/16/2025 PT/IN R PT 80.3 Not Available [facility] [address], [place], [address], 01/16/2025 14:26:29 01/17/20 25 01/16/2025 PT/IN R INR 6.7 Not Available [facility] [address], [place], [address], 01/16/2025 14:26:29 02/19/20 25 02/18/2025 imagi ng/di agnos tic resul t No observ ation record ed. [address] [facility], [place], [address], 02/18/2025 19:39:24 03/24/20 25 03/24/2025 imagi ng/di agnos tic resul t No observ ation record ed. [address] [address], [place], [address], 03/24/2025 23:46:59 03/25/20 25 03/25/2025 imagi ng/di agnos tic resul t No observ ation record ed. [address] [address], [place], [address], 03/25/2025 16:04:39 03/25/20 25 03/25/2025 imagi ng/di agnos tic resul t No observ ation record ed. [address] [address], [place], [address], 03/25/2025 16:52:17 03/28/20 25 03/28/2025 imagi ng/di agnos tic resul t No observ ation record ed. [address] [address], [place], [address], 03/28/2025 16:05:30 04/21/20 25 04/21/2025 imagi ng/di agnos tic resul t No observ ation record ed. [address] [address], [place], [address], 04/21/2025 17:47:43 04/21/20 25 04/21/2025 imagi ng/di agnos tic resul t No observ ation record ed. [address] [address], [place], [address], 04/21/2025 17:51:22 04/21/20 25 04/21/2025 imagi ng/di agnos tic resul t No observ ation record ed. [address] [address], [place], [address], 04/21/2025 18:04:10 04/22/20 25 04/22/2025 imagi ng/di agnos tic resul t No observ ation record ed. [address] [address], [place], [address], 04/22/2025 20:45:38 04/22/20 25 04/22/2025 imagi ng/di agnos tic resul t No observ ation record ed. [address], [address], 04/22/2025 20:50:16 04/22/20 25 04/22/2025 imagi ng/di agnos tic resul t No observ ation record ed. [address] [address], [place], [address], 04/22/2025 21:00:35 04/24/20 25 04/24/2025 imagi ng/di agnos tic resul t No observ ation record ed. [address] [address], [place], [address], 04/24/2025 10:22:15 05/07/20 25 05/07/2025 XR, hip + pelvi s, unila teral , 2 or 3 view No observ ation record ed. [address] [address], [place], [address], 05/07/2025 14:35:36 05/07/20 25 05/07/2025 imagi ng/di agnos tic resul t No observ ation record ed. [address] [address], [place], [address], 05/07/2025 16:43:13 05/07/20 25 05/07/2025 imagi ng/di agnos tic resul t No observ ation record ed. [address] [place], [address], 05/07/2025 17:50:39 05/20/2005/20/2025 imagi ng/di agnos tic resul t No observ ation record ed. [address], [place], [address], 05/20/2025 07:05:22 05/21/20 25 05/21/2025 imagi ng/di agnos tic resul t No observ ation record ed. [address], [place], [address], 05/21/2025 21:58:15 05/26/2005/26/2025 imagi ng/di agnos tic resul t No observ ation record ed. [address] [facility], [place], [address], 05/26/2025 13:21:28 05/26/20 25 05/26/2025 imagi ng/di agnos tic resul t No observ ation record ed. [address] [facility], [place], [address], 05/26/2025 13:37:43 05/26/20 25 05/26/2025 imagi ng/di agnos tic resul t No observ ation record ed. [address], [place], [address], 05/26/2025 23:06:53 06/22/2006/22/2025 imagi ng/di agnos tic resul t No observ ation record ed. [address], [place], [address], 06/22/2025 15:50:55 06/22/20 25 06/22/2025 imagi ng/di agnos tic resul t No observ ation record ed. [address], [place], [address], 06/22/2025 16:35:30 06/22/20 25 06/22/2025 imagi ng/di agnos tic resul t No observ ation record ed. [address], [place], [address], 06/22/2025 16:58:05 07/11/20 25 07/11/2025 imagi ng/di agnos tic resul t No observ ation record ed. [address], [place], [address], 07/11/2025 15:20:10 07/14/20 25 07/12/2025 imagi ng/di agnos tic resul t No observ ation record ed. [address], [place], [address], 07/14/2025 12:23:23 07/14/20 25 07/12/2025 imagi ng/di agnos tic resul t No observ ation record ed. [address] [facility], [place], [address], 07/14/2025 12:25:09 Result Notes None recorded. Problems Name Problem SNOMED Code Status Onset Date Resolution Date Notes Provider Name and Address Organization Details Recorded Time Gastroesop hageal reflux disease 538126957 Active Loreta Haque MD [address], [place], [address] , [employer] 5 08:34:21 Vitamin D deficiency 61682035 Active Loreta Haqeu MD [address], [place], [address] , [facility] 5 08:33:45 Hypothyroi dism 09393339 Active Loreta Haque MD [address], [place], [address] , [facility] 5 08:34:16 Long-term current use of anticoagul ant 732254127 Active 2020 Loreta Haque MD [address], [place], [address] , [facility] 5 08:34:04 Osteoporos is 10160013 Active 2020 DEXA Loreta Haque MD [address], [place], [address] , [facility] 5 08:33:47 Essential hypertensi on 15407548 Active 2022 Susana Kimbrough, A null, [facility] 5 12:03:43 Moderate recurrent major depression 86396811 Active 2023 Loreta Haque MD [address], [place], [address] , [facility] 5 08:33:58 Nonischemi c congestive cardiomyop athy 352907004780 Active 2023 Loreta Haque MD [address], [place], [address] , [facility] 5 08:33:55 Hiatal hernia 35111613 Active 2023 Loreta Haque MD [address], [place], [address] , [facility] 5 08:34:19 Hyperlipid emia 34903772 Active 2023 Loreta Haque MD [address], [place], [address] , [facility] 5 08:34:18 Atrial fibrillati on 39583144 Active 2023 Loreta Haque MD [address], [place], [address] , [facility] 5 08:34:34 Chronic kidney disease 909232644 Active 2024 Loreta Haque MD [address], [place], [address] , [facility] 5 08:34:30 Mild chronic obstructiv e pulmonary disease 820243691 Active 2024 Loreta Haque MD [address], [place], [address] , [facility] 5 08:34:01 Nasal sinus problem 063901981 Active 2024 Susana Kimbrough, RMA null, [place] [facility] 5 15:01:35 Serum vitamin B12 below reference range 776407994 Active 2024 Roque holden MD [address], [place], [address] , [facility] 5 14:33:29 Persistent insomnia 084473068 Active 2024 Roque holden MD [address], [place], [address] , [facility] 5 14:33:29 Abdominal pain 61196549 Active 2024 Roque holden MD [address], [place], [address] , [facility] 14:33:29 Mass of neck 958923656 Active 2024 Roque holden MD [address], [place], [address] , [facility] 5 14:33:29 Dizziness 390190703 Active 2024 Roque holden MD [address], [place], [address] , [facility] 5 14:33:29 Multiple nodules of lung 663343394 Active 2024 Roque holden MD [address], [place], [address] , [place] [facility] 5 14:33:29 Dental caries 54680679 Active 2024 Roque holden MD [address], [place], [address] , [facility] 5 14:33:30 Pain of right hip joint 8404656211260 02 Active 2024 Roque holden MD [address], [place], [address] , [facility] 5 14:33:30 Tear of skin 137302419 Active 2024 Roque holden MD [address], [place], [address] , [facility] 5 14:33:30 Hyperkalem ia 42104397 Active 2024 Roque holden MD [address], [place], [address] , [facility] 5 14:33:30 Eruption 723937561 Active 2024 Roque holden MD [address], [place], [address] , [facility] 5 14:33:30 Nausea 990667369 Active 2024 Roque holden MD [address], [place], [address] , [facility] 5 14:33:30 Cerebrovas cular accident 606053458 Active 2024 PEREZ [place] null, [facility] 5 15:42:56 Urinary symptoms 683457959 Active 2024 Lorraine Morris MA null, [place] [facility] 5 13:00:14 Posterior rhinorrhea 02525928 Active 2024 PEREZ [place] null, [facility] 5 15:00:02 Acute respirator y failure 27279334 Active 2024 Susana Kimbrough PAIGEZurdo orland, [facility] [employer] [facility] 12:29:17 Seasonal allergy 582965292 Active 2024 Susana KimbroughPAIGEZurdo roland, [facility] [employer] [facility] 12:18:00 Cloudy urine 8073576 Active 2024 Ofelia Vazquez NP [address] [facility], [place], [address] , [facility] [employer] 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 Procedures Surgical History Date Name Laterality Status Provider Name and Address Organization Details Recorded Time 05/07/20 Transitional_Care _Management completed Roque Reddy MD [address] [facility], [facility] [address], [place], [address], [facility] [email or web address] [facility] [employer] [facility] [employer] 05/07/2025 12:00:21 04/17/20 24 Chronic care management services completed Jaclyn Huizar [place] [email or web address] [facility] [employer] 06/03/2024 19:11:19 02/26/20 Chronic care management services completed Ara Ozuna RN [facility] [employer] 02/26/2024 14:23:59 01/16/20 24 Chronic care management services completed Ara Ozuna RN [facility] [employer] 01/16/2024 18:07:23 12/06/19 24 Medicare Wellness CPT Code, subsequent completed PEREZ [place] [email or web address] [facility] [place] [employer] [facility] 12/06/2023 14:03:15 04/10/20 23 Transitional_Care _Management completed THI Gatica [address], [facility] [address], [place], [address], [facility] [employer] [facility] 04/11/2023 08:40:38 Rotator cuff surgery completed Lorraine Morris MA [facility] [employer] [facility] 01/08/2024 11:34:43 operation on intestine completed Lorraine Morris MA [facility] [employer] [facility] 01/08/2024 11:35:04 Tonsillectomy completed Lorraine Morris MA [facility] [employer] [facility] 01/08/2024 11:35:14 Tubal Ligation completed Lorraine Morris MA [facility] [employer] [facility] 01/08/2024 11:37:01 Imaging Results None recorded. Procedure Notes None recorded. Medical Equipment None Reported. Allergies Allergen ID Allergen Name Allergen Category Reaction Reaction Severity Criticality Documentation Date Start Date Code Code System Note Provider Name and Address Organization Details Recorded Time 87576 tramadol medicatio n Not available Not available Not available 11/02/2022 79069 RxNorm Vomit ing Not Available [facility] 3 09:34:02 78761 Non-stero idal anti-infl ammatory agent (substanc e) medicatio n hives moderate Not available 11/02/2022 13785 5008 SNOMED Also CKD Not Available [facility] 3 09:34:02 45141 Lamictal medicatio n rash Not available Not available 11/02/2022 93023 2 RxNorm Not Available [facility] 3 09:34:02 02260 codeine medicatio n nausea Not available Not available 11/18/2022 2670 RxNorm MIKE Linder [address], [facility] [address], [place], [address], [facility] [employer] [facility] 3 10:59:48 Medications Name Sig Start Date [...] active Not Available Not Available Not Available hydralazi ne 10 mg tablet Take 1 tablet twice a day by oral route. 2024 active Not Available Not Available Not Avai lable carvedilo l 25 mg tablet TAKE 1 [...] completed Not Available Not Available Not Available metoclopr amide 5 mg tablet Take 1 tablet 4 times a day by oral route for 30 days. 2024 active Not Available Not Available Not Avai lable Euthyrox 125 mcg tablet Take 1 tablet [...] TAKE 1 TABLET BY MOUTH TWICE DAILY ON MONDAY S AND SUNDAYS active Not Available Not Available No t Available warfarin 5 mg tablet Take one [...] e 50 mcg/actua tion nasal spray,[facility] [place] 1 spray every day by intranas al route for 30 days. 11/05 completed Not Available Not Available Not Available doxycycli ne hyclate 100 mg tablet Take 1 tablet twice a day by oral route for 7 days. active Not Available Not Available No t Available loratadin e 10 mg tablet Take 1 tablet every day by oral route as needed. 2024 active Not Available Not Available Not Avai lable amoxicill in 875 mg-potass ium clavulana te [...] Not Available Not Available Not Available Fluvirin 7647-9933 45 mcg (15 mcg x 3)/0.5 mL intramusc ular suspensio n INJECT 0.5 ML INTRAMUS CULARLY DIRECTED . active Not Available Not Available No t Available Anti-Diar rheal 07/11 completed Not Available Not Available Not Available Afluria 5249-1892 (PF) 45 mcg (15 mcg x 3)/0.5 [...] Available Not Available Not Available Fluzone High-Dose 2285-5573 (PF) 180 mcg/0.5 mL intramusc ular syringe 09/06 completed Not Available Not Available Not Available Fluzone High-Dose 6892-0006 (PF) 180 mcg/0.5 mL intramusc ular syringe 05/12 completed Not Available Not Available Not Available Shingrix (PF) 50 mcg/0.5 mL intramusc ular suspensio n, kit 05/12 completed Not Available Not Available Not Available Fluzone High-Dose 8700-1151 (PF) 180 mcg/0.5 mL intramusc ular syringe [...] 91 /min 15 /min Loreta Haque MD [address] [facility] [address], [place], [address], [facility] Business Combined [facility] 15:15:58 Date Recorded Body height Body mass index (BMI) Body weight Body temperature Systolic And Diastolic Provider Name and Address Organization Details Last Updated DateTime 01/01/2025 167.64 cm 28.7 kg/m2 38317.4 4 g 98.3 [degF] 124/76 mm[Hg] Lauryn Raines MA [facility] [employer] 14:56:19 Date Recorded Body height Body mass index (BMI) Body weight Body temperature Heart rate Oxygen saturation Oxygen saturation in Arterial blood by Pulse oximetry Pain severity - 0-10 verbal numeric rating [Score] - Reported Systolic And Diastolic Provider Name and Address Organization Details Last Updated DateTime 167.64 cm 28.6 kg/m2 04024.8 5 g 98.5 [degF] 68 /min 97 % 97 % 0 154/84 mm[Hg] Lorraine Morris MA [facility] [employer] 14:50:37 Date Recorded Heart rate Respiratory rate Provider N kaleigh and Address Organization Details Last Updated DateTime 03/13/2025 61 /min 14 /min Loreta Haque MD [address], [address], [facility] Business Combined [facility] 03/13/2025 15:08:35 Date Recorded Body height Body mass index (BMI) Body weight Body temperature Heart rate Oxygen saturation Oxygen saturation in Arterial blood by Pulse oximetry Systolic And Diastolic Provider Name and Address Organization Details Last Updated DateTime 167.64 cm 28.7 kg/m2 01036.4 4 g 98.9 [degF] 61 /min 96 % 96 % 126/84 mm[Hg] Lauryn Raines MA [facility] [employer] 14:56:32 Date Recorded Body height Body temperature Heart rate Oxygen saturation Oxygen saturation in Arterial blood by Pulse oximetry Pain severity - 0-10 verbal numeric rating [Score] - Reported Systolic And Diastolic Provider Name and Address Organization Details Last Updated DateTime 5 167.64 cm 98.2 [degF] 60 /min 97 % 97 % 0 104/60 mm[Hg] Lorraine Morris MA [facility] [email or web address] [facility] 5 14:35:14 Date Recorded Body height Body temperature Heart rate Oxygen saturation Oxygen saturation in Arterial blood by Pulse oximetry Pain severity - 0-10 verbal numeric rating [Score] - Reported Systolic And Diastolic Provider Name and Address Organization Details Last Updated DateTime 5 167.64 cm 98.7 [degF] 66 /min 92 % 92 % 0 110/64 mm[Hg] Lorraine Morris MA [place] [facility] Business Combined [facility] 5 11:51:32 Social History Question Answer Notes LastModified by Organization Details LastModified Time Tobacco Smoking Status Never Smoker Not Available [employer] 11/02/2022 09:26:39 Do You Have An Advance Directive? Yes [email or web address] Information not available 04/17/2024 Are You Blind Or Do You Have Difficulty Seeing? No [email or web address] Information not available 12/06/2023 Is Blood Transfusion Acceptable In An Emergency? Yes [email or web address] Information not available 01/16/2024 What Is Your Level Of Caffeine Consumption? Heavy 3 Coca Cola's Per Day [email or web address] Information not available 01/16/2024 In The 14 Days Before Symptom Onset, Have You Had Close Contact With A Laboratory-confi rmed COVID-19 While That Case Was Ill? No [id number] Information not available 11/02/2022 In The 14 Days Before Symptom Onset, Have You Had Close Contact With A Person Who Is Under Investigation For COVID-19 While That Person Was Ill? No MIGRATION.030 [id number] Information not available 11/02/2022 Are You Deaf Or Do You Have Serious Difficulty Hearing? No Information not available 11/06/2023 What Type Of Diet Are You Following? REGULAR MIGRATION.030 [id number] Information not available 11/02/2022 What Is The Highest Grade Or Level Of School You Have Completed Or The Highest Degree You Have Received? [id number] MIGRATION.[id number] Information not available 11/02/2022 Do You Have An Electrostatic Air Filter? No Information not available 01/01/2025 Have There Been Any Changes To Your Family Or Social Situation? Yes Lives With Roomate [email or web address] Information not available 01/16/2024 What Is The Fluoride Status Of Your Home? Unknown Information not available 11/06/2023 Are There Any Guns Present In Your Home? No MIGRATION.0301 [id number] Information not available 11/02/2022 Do You Have A Humidifier? No Information not available 01/01/2025 Do You Use Insect Repellent Routinely? No MIGRATION.0301 [id number] Information not available 11/02/2022 Where Do You Live? SingleLevelHouse Information not available 12/06/2023 Are You Able To Care For Yourself? No [email or web address] Information not available 12/06/2023 Are You Blind Or Do Yo Have Difficulty Seeing? No [email or web address] Information not available 12/06/2023 Are You Deaf Or Do You Have Serious Difficulty Hearing? No [email or web address] Information not available 12/06/2023 Live Alone Of With Others? With Others [email or web address] Information not available 12/06/2023 Do You Have A Medical Power Of [place]? Yes Brother-Jone Moore [email or web address] Information not available 01/16/2024 Do You Have Moisture Problems In Your Home? No Information not available 01/01/2025 What Was The Date Of Your Most Recent Tobacco Screening? 05/07/2025 [email or web address] Information not available 05/07/2025 How Many Children Do You Have? 1 [email or web address] Information not available 01/16/2024 Do You Have Any Pets? Yes 2 Cats [email or web address] Information not available 01/16/2024 What Is Your Relationship Status? MIGRATION.0301 [id number] Information not available 11/02/2022 Do You Use Your Seat Belt Or Car Seat Routinely? Yes MIGRATION.0301 [id number] Information not available 11/02/2022 Are You Sexually Active? No [email or web address] Information not available 01/16/2024 Do You Have Smoke And Carbon Monoxide Detectors In Your Home? Yes MIGRATION.0301 [id number] Information not available 11/02/2022 Are You Passively Exposed To Smoke? Yes Information not available 11/06/2023 Are There Any Smokers In Your House? Yes Information not available 11/06/2023 Do You Participate In Social Media? No MIGRATION.0301 [id number] Information not available 11/02/2022 Do You Use Sunscreen Routinely? No MIGRATION.0301 [id number] Information not available 11/02/2022 Has Tobacco Cessation Counseling Been Provided? No N/a Information not available 11/06/2023 Have You Recently Traveled Abroad? No MIGRATION.0301 [id number] Information not available 11/02/2022 Do You Have Difficulty Walking Or Climbing Stairs? Yes Uses A Walker [email or web address] Information not available 01/16/2024 Are You Currently In School? No MIGRATION.0301 [id number] Information not available 11/02/2022 Do You Have Any Dietary Restrictions? No MIGRATION.0301 237371 Information not available 11/02/2022 Sex: Unknown Functional Status Question Answer Note LastModified by Identification International ion Details LastModified Time Do you use any illicit or recreational drugs? No MIGRATION.06792 24688 Information not available 11/02/2022 Do you or have you ever used any other forms of tobacco or nicotine? No MIGRATION.64521 16537 Information not available 11/02/2022 What is your level of alcohol consumption? None MIGRATION.11480 23857 Information not available 11/02/2022 Are you currently employed? No [email or web address] Information not available 01/16/2024 Have you been exposed to chemicals or toxins? not that aware of Information not available 01/01/2025 Do you have transportation difficulties? No [email or web address] Information not available 12/06/2023 Are you able to walk independently without assistance or assistive devices? YESASSIST wheeled walker Information not available 11/06/2023 Do you have difficulty doing errands alone? Yes [email or web address] Information not available 12/06/2023 Are you able to care for yourself independently? No has caregiver that comes 9 hours/week [email or web address] Information not available 01/16/2024 Do you have difficulty dressing, bathing, grooming, or toileting? No Information not available 11/06/2023 What is your exercise level? Occasional started doing exercises in chair 1 week ago & walks around house [email or web address] Information not available 01/16/2024 Mental Status Question Answer Note LastModified by Organizat ion Details LastModified Time Do you feel stressed (tense, restless, nervous, or anxious, or unable to sleep at night)? [id number] pt's s.o has chronic health problems and is reluctant to going to get care. This is making pt nervous. [email or web address] Information not available 02/26/2024 Do you have difficulty concentrating, remembering or making decisions? No [email or web address] Information not available 01/16/2024 Family History Relationship Description Onset Age of this Age Resolved Age Notes LastModified by Organization Details LastModified Time Mother Diabetes mellitus MIGRATION.423 [id number] Not available 11/02/2022 09:27:03 Mother Heart disease MIGRATION.080 [id number] Not available 11/02/2022 09:27:03 Father Hypertensive disorder MIGRATION.811 [id number] Not available 11/02/2022 09:27:03 Father Cerebrovascu lar [...] HAVE YOU BEEN HOSPITALIZED OR SEEN IN [facility] IN THE PAST YEAR ? Y Brain [...] split virus, quadrivalent, preservative 8 completed Jaclyn Bhupendra [facility] 02/28/2023 16:18:39 Influenza, split virus, quadrivalent, preservative 9 completed Jaclyn [place] [facility] [facility] 02/28/2023 16:18:39 zoster recombinant 8 completed Jaclyn Bhupendra [facility] 02/28/2023 16:18:39 Influenza, high-dose, quadrivalent, PF 0 completed Jaclyn Bhupendra [facility] 02/28/2023 16:18:39 Influenza, high-dose, quadrivalent, PF 2 completed Jaclyn Bhupendra [facility] 02/28/2023 16:18:39 Influenza, high-dose, quadrivalent, PF 1 completed Jaclyn Bhupendra [facility] 02/28/2023 16:18:39 COVID-19, mRNA, LNP-S, PF, 100 mcg/0.5mL dose or 50 mcg/0.25mL dose 1 completed Jaclyn Bhupendra [facility] 02/28/2023 16:18:39 COVID-19, mRNA, LNP-S, PF, 100 mcg/0.5mL dose or 50 mcg/0.25mL dose 1 completed [facility] Bhupendra [employer] 02/28/2023 16:18:39 COVID-19, mRNA, LNP-S, PF, 100 mcg/0.5mL dose or 50 mcg/0.25mL dose 2 [facility] 16:18:39 COVID-19, mRNA, LNP-S, PF, 100 mcg/0.5mL dose or 50 mcg/0.25mL dose 1 completed Jaclynher Huizar [facility] [facility] 02/28/2023 16:18:39 COVID-19, mRNA, LNP-S, bivalent, PF, 30 mcg/0.3 mL dose 2 completed Jaclynher Huizar [facility] 02/28/2023 16:18:39 pneumococcal polysaccharide PPV23 6 completed Jaclyn [address] [facility] 02/28/2023 16:18:39 Pneumococcal conjugate PCV 13 8 completed Jaclyn Bhupendra [facility] 02/28/2023 16:18:39 Influenza, high-dose, trivalent, PF 6 completed Jaclyn [address] [facility] 02/28/2023 16:18:39 Influenza, high-dose, trivalent, PF 9 completed Jaclyn Bhupendra [facility] 02/28/2023 16:18:39 Influenza, high-dose, trivalent, PF 7 completed Jaclyn Bhupendra [facility] 02/28/2023 16:18:39 Influenza, split virus, trivalent, preservative 4 completed Jaclynher Huizar [facility] 02/28/2023 16:18:39 Influenza, split virus, trivalent, PF 5 completed Jaclynher Huizar [facility] 02/28/2023 16:18:39 Influenza, high-dose, quadrivalent, PF 3 completed [place]EREZ [place] [employer] [facility] 09/16/2024 14:07:35 COVID-19, mRNA, LNP-S, PF, 50 mcg/0.5 mL 4 completed [place] [facility]/16[facility] 14:07:35 COVID-19, mRNA, LNP-S, PF, 50 mcg/0.5 mL 3 completed [place], [facility] Business Combined [facility] 09/16/2024 14:07:35 Influenza, high-dose, trivalent, PF 4 completed [place], [facility] Business Combined [facility] 09/16/2024 14:07:35 Past Encounters Encounter ID Performer Location Encounter Start Date Encounter Closed Date Diagnosis/Indication Diagnosis SNOMED-CT Code Diagnosis ICD10 Code Diagnosis IMO Codes Diagnosis Note [id number] Lana Tovar MD [facility] [address] [facility] [address] [place] [address] 01/11/2021 00:00:00 01/20/2021 09:33:59 [id number] Lana Tovar MD [facility] [address] [facility] [address] [facility] [place] [address] 01/26/2021 00:00:00 01/26/2021 10:59:18 [id number] Lana Tovar MD [facility] Primary [place] [address] [facility] [address] [place] [address] 02/10/2021 00:00:00 03/03/2021 09:55:56 [id number] Lana Tovar MD [facility] Primary [place] [address] [facility] [address] [place] [address] 02/17/2021 00:00:00 02/17/2021 13:19:19 [id number] Lana Tovar MD [facility] Primary [place] [address] [facility] [address] [place] [address] 02/24/2021 00:00:00 03/02/2021 13:52:08 [id number] Lana Tovar MD [facility] Primary [place] [address] [facility] [address] [place] [address] 04/20/2021 00:00:00 05/03/2021 19:35:15 [id number] Lana Tovar MD [facility] [place] [address] [place] [address] 05/06/2021 00:00:00 05/06/2021 21:08:51 [id number] Lana Tovar MD [facility] [place] [address] [place] [address] 06/09/2021 00:00:00 06/09/2021 10:51:15 [id number] Lana Tovar MD [facility] [place] [address] [place] [address] 09/29/2021 00:00:00 09/29/2021 13:17:41 [id number] Lana Tovar MD [facility] [place] [address] [place] [address] 01/05/2022 00:00:00 01/28/2022 13:08:49 [id number] Lana Tovar MD [facility] [place] [address] [place] [address] 01/19/2022 00:00:00 02/01/2022 08:13:46 [id number] Lana Tovar MD [facility] [place] [address] [place] [address] 02/02/2022 00:00:00 03/01/2022 14:05:51 [id number] [facility] José Powers [address] [facility] [address] [place] [address] 02/14/2022 00:00:00 02/15/2022 11:15:58 [id number] Lana Tovar MD [facility] [place] [address] [place] [address] 03/15/2022 00:00:00 04/01/2022 13:22:41 [id number] Lana Tovar MD [facility] [place] [address] [place] [address] [address] [place] [address] 04/25/2022 00:00:00 04/25/2022 09:40:17 [id number] MIKE Linder [facility] [place] [address] [place] [address] 05/30/2022 00:00:00 05/30/2022 12:27:10 [id number] Lana Tovar MD [facility] [place] [address] [place] [address] 08/10/2022 00:00:00 09/01/2022 11:27:36 [id number] [facility] [address] [place] [address] 11/18/2022 10:40:48 11/18/2022 11:55:25 Cough 21619278 R05.9 Pt. very congested with a wheezing cough. Covid negative.A dvised to take medication s as directed. Can continue otc medication s as needed.If no improvemen t over next 1-2 weeks will evaluate with CXR. [id number] [facility] [address] [place] [address] 12/28/2022 11:41:11 12/28/2022 12:36:50 Long-term current use of anticoagulant 274685139 Z79.01 Currently on Warfarin 3mg daily. Bilateral cramp of muscle of lower limbs [id number] 5631824 R25.2 She states she has had symptoms for the last 1-2 weeks. No swelling/r edness. No pain during visit.Most likely benign muscle cramps.Esa l check labs today. Hypothyroidism 72267217 E03.9 Vitamin D deficiency 347 40147 E55.9 Renal mass 713961623 N28 .89 MRI scheduled for February. Cobalamin deficiency 190 125473 E53.8 [id number] Lana Tovar MD [facility] Primary Care [place] [address] [place] [address] 02/20/2023 15:13:05 02/20/2023 15:49:01 Essential hypertension 84735655 I10 Long-term current use of anticoagulant 844458632 Z79.01 Vitamin D deficiency 347 36733 E55.9 Hypothyroidism 15649957 E03.9 Cobalamin deficiency 190 636350 E53.8 [id number] Lana Tovar MD [facility] Primary Care [address] [place] [address] 02/23/2023 15:44:37 02/23/2023 16:52:15 Long-term current use of anticoagulant 987173100 Z79.01 [id number] Lana Tovar MD [facility] [address] [facility] [address] [place] [address] 03/28/2023 15:59:26 03/28/2023 16:16:31 [id number] NERIS Gatica-Najma [facility] Primary Care [address] [place] [address] 04/10/2023 16:00:52 04/10/2023 17:07:19 Dizziness 728728172 R42 Has been an issue as long as she has been taking the carvedilol (not as prescribed )Will give trial meclizine Malaise and fatigue 2717 90599 R53.81 Pt was taking carvedilol 25mg BID when she was supposed to be taking 12.5mg BIDNotes no swelling in her ankles-BP seems to be stable currentlyW ill hold off on starting lasix at this time.Educa misti to take 1/2 tab of carvedilol in the morning and 1/2 tab in the evening [id number] Roque holden MD [facility] Internal Med [place] [address] [facility] [place] [address] 11/06/2023 11:49:23 11/06/2023 12:47:14 Screening - NAD 450516809 Z13.9 C-scope: Get this if not done, [...] understand ing of the above Essential hypertension 20778836 I10 On coreg 12.5mg bidOn entresto 49-51mg bidOn spironolac tone 25mg daily Hypothyroidism 08238441 E03.9 On levothyrox ine 150mcgs dailyGet labs Persistent insomnia 1919 17692 G47.[address] iven [address] Dr Amaya Moderate r ecurrent major depression 22253570 F33.1 On clonazepam 0.5mg tidOn venlafaxin e ER 37.5mg dailyOn vralar 1.5m daily Nonischemi c congestive cardiomyopathy 7014446578 [address] Ceja cardiology [...] one week for INr Screening mammography 24 492235 Z12.31 Screening for osteoporosis 072268801 Z13.820 Gynecologi c examination 97906614 Z01.419 Serum betty min B12 below reference range 132940911 R79.89 On b12, get labs [id number] Roque holden MD [facility] Internal Med [place] [address] [facility] y , [place] [address] 12/06/2023 13:58:41 12/06/2023 14:47:31 Adult health examination 606218317 Z00.00 Screening for disorder 100395332 Z13.9 Anticoagulant therapy 18 1011651 Z79.01 Screening - NAD 44894116 3 Z13.9 C-scope: Get this if not [...] understand ing of the above Essential hypertension 05083001 I10 On amiodarone 200mg dailyOn coreg 12.5mg bidOn entresto 49-51mg bidOn spironolac tone 25mg daily Hypothyroidism 12405926 E03.9 On levothyrox ine 150mcgs dailyGet labs Persistent insomnia 1919 20271 G47.09 On trazodoneG iven by Dr Amaya Moderate r ecurrent major depression 19297004 F33.1 On clonazepam 0.5mg tidOn venlafaxin e ER 37.5mg dailyOn vralar 1.5m daily Nonischemi c congestive cardiomyopathy 1572048108 [address] Ceja cardiology [...] one week for INr Screening mammography 24 876399 Z12.31 Screening for osteoporosis 161945360 Z13.820 Gynecologi c examination 55711342 Z01.419 Serum betty min B12 below reference range 919907194 R79.89 On b12, get labs Abdominal pain 66674332 R10.[address] abd donePrior hx of surgery to the abdomen, she is not very sure why she had to have surgeryMay need to see GI [id number] Roque holden MD [facility] Internal [facility] [place] [address] [facility] [address] , [place] [address] 12/13/2023 14:10:26 12/13/2023 15:22:58 Screening - NAD 396613109 Z13.9 C-scope: Get this if not done, [...] understand ing of the above Essential hypertension 99091654 I10 On amiodarone 200mg dailyOn coreg 12.5mg bidOn entresto 49-51mg bid, renewed 12/13/2023 On spironolac tone 25mg daily Hypothyroidism 85731815 E03.9 On levothyrox ine 150mcgs dailyGet labs Persistent insomnia 1919 21318 G47.09 On trazodoneG iven by Dr Amaya Moderate r ecurrent major depression 71060221 F33.1 On clonazepam 0.5mg tidOn venlafaxin e ER 37.5mg dailyOn vralar 1.5m daily Nonischemi c congestive cardiomyopathy 5036816435 [address] Ceja cardiology [...] tone 25mg dailyOn coumadin Gynecologi c examination 20721453 Z01.419 Serum betty min B12 below reference range 220972934 R79.89 On b12, get labs Abdominal pain 52132623 R10.[address] abd donePrior hx of surgery to the abdomen, she is not very sure why she had to have surgeryMay need to see GI CT A/P: 12/13/2023 : Hiatal hernia, needs to see GI Hiatal hernia 98337255 K 44.9 CT A/P: 12/13/2023 : Hiatal hernia, needs to see GI Dizziness 467585059 R42 [place] ERXR Chest 12/08/2023 S/p CTA 12/08/2023 Lung nodules noted Multiple n odules of lung 904785822 R91.8 [facility] [place] [facility] and see pulmonary Mass of neck 274140643 R 22.1 Fullness noted in the oyrdy supraclavi cular areaS/P CTA done 12/08/2023 Get US neck and she now will see Dr Gannon her cardiologi st [id number] Roque holden MD [facility] Internal Med [place] [address] [facility] [place] [address] 01/08/2024 11:22:08 01/08/2024 12:06:29 Screening - NAD 834656426 Z13.9 C-scope: Get this if not done, [...] understand ing of the above Essential hypertension 55769862 I10 On amiodarone 200mg dailyOn coreg 12.5mg bid, advised to not take the 25mg 1/2 tab bid dose 01/08/2024 On entresto 49-51mg bid, renewed 12/13/2023 On spironolac tone 25mg daily Hypothyroidism 47422171 E03.9 On levothyrox ine 150mcgs dailyGet labs Persistent insomnia 1919 84531 G47.09 On trazodoneG iven by Dr Amaya Moderate r ecurrent major depression 11839271 F33.1 On clonazepam 0.5mg tidOn venlafaxin e ER 37.5mg dailyOn vralar 1.5m dailySees Dr Amaya, not suicidal or homicidal Nonischemi c congestive cardiomyopathy 1141032714 [address] Ceja cardiology [...] spironolac tone 25mg dailyOn coumadin D/c from [facility] 01/03/2024 for SOB, acute respirator y failure [...] with her CG Claudette Gynecologi c examination 03671468 Z01.419 Serum betty min B12 below reference range 532877165 R79.89 On b12, get labs Abdominal pain 66859926 R10.[address] abd donePrior hx of surgery to the abdomen, she is not very sure why she had to have surgeryMay need to see GI CT A/P: 12/13/2023 : Hiatal hernia, needs to see [facility]: To get EGD, take PPI an dfamotidin e, take OTC byezdzz824 mg PRN for bloating, may need a course of xifaxan Hiatal hernia 83667998 K 44.9 CT A/P: 12/13/2023 : Hiatal hernia, needs to see GIToday 01/08/2024 , states that she is to get the EGD this Monday Dizziness 109695003 R42 [place] ERXR Chest 12/08/2023 S/p CTA 12/08/2023 Lung nodules noted Multiple n odules of lung [id number] R91.8 CTA 12/08/2023 at [facility] get CT chest and see pulmonary Mass of neck 021102036 R 22.1 Fullness noted in the yordy supraclavi cular areaS/P CTA done 12/08/2023 Get US neck and she now will see Dr Gannon her cardiologi [id number] Roque holden MD [facility] Internal Med [place] [address] [place] [address] y [place] [address] 01/16/2024 17:11:21 05/09/2024 11:39:35 Nonischemic congestive cardiomyopathy 4879089053 04 I42.0 Moderate r ecurrent major depression 78862137 F33.1 Osteoarthr itis of knee 572007619 M17.9 [id number] Roque holden MD [facility] Internal Med Lydia e [address] [place] [address] y [place] [address] 02/26/2024 13:42:40 05/22/2024 11:15:01 Nonischemic congestive cardiomyopathy 7135346342 04 I42.0 Essential hypertension 56328585 I10 [id number] Loreta Haque MD [facility] Pulmonolo gy [address], [facility] [address] [place] [address] 03/20/2024 15:22:21 03/21/2024 08:27:20 Dyspnea on exertion 79047511 R06.09 R05.9 T78.40XA D89.9 Multiple n odules of lung 178863638 R91.8 [id number] Roque holden MD [facility] Internal Med Lydia sanchez [address] [place] [address] [place] [address] 04/17/2024 18:28:30 06/03/2024 19:29:01 Dyspnea on exertion 89077200 R06.09 R05.9 T78.40XA D89.9 Moderate r ecurrent major depression 16586141 F33.1 Essential hypertension 26035891 I10 [id number] Roque holden MD [facility] Internal Med Lydia sanchez [address] [place] [address] [place] [address] 06/12/2024 14:13:38 06/12/2024 15:19:26 Screening - NAD 074242843 Z13.9 C-scope: Get this if not done, [...] understand ing of the above Essential hypertension 16650815 I10 On amiodarone 200mg dailyOn coreg 25mg bid, advised to not take the 25mg 1/2 tab bid dose 01/08/2024 On entresto 49-51mg bid, now should be on 24/ bid as per Dr Ceja 06/07/2024 On spironolac tone 25mg daily Hypothyroidism 34149693 E03.9 On levothyrox ine 150mcgs daily,misael wedGet labs Persistent insomnia 1919 67675 G47.09 On trazodoneG iven by Dr Amaya Moderate r ecurrent major depression 11871727 F33.1 On clonazepam 0.5mg tidOn venlafaxin e ER 37.5mg dailyOn vraylar 1.5m dailySees Dr Amaya, not suicidal or homicidal Nonischemi c congestive cardiomyopathy 1476041691 [address] Ceja cardiology [...] spironolac tone 25mg dailyOn coumadin D/c from [facility] 01/03/2024 for SOB, acute respirator y failure [...] f/u in 3 months Gynecologi c examination 70130975 Z01.419 Serum betty min B12 below reference range 772195854 R79.89 On b12, get labs Abdominal pain 34389806 R10.[address] abd donePrior hx of surgery to the abdomen, she is not very sure why she had to have surgeryMay need to see GI CT A/P: 12/13/2023 : Hiatal hernia, needs to see Timothy Fairchild GI: To get EGD, take PPI an dfamotidin e, take OTC asuphwl413 mg PRN for bloating, may need a course of xifaxan EGD 01/10/2024 : Dr Fairchild Hiatal hernia 73010588 K 44.9 CT A/P: 12/13/2023 : Hiatal hernia, needs to see GI S/p EGD 01/10/2024 Dizziness 233709933 R42 [place] [facility]XR Chest 12/08/2023 S/p CTA 12/08/2023 Lung nodules noted Multiple n odules of lung 195026116 R91.8 [facility] NegDr Haque 03/20/2024 Mass of neck 346830664 R 22.1 Fullness noted in the yordy supraclavi cular areaS/P CTA done 12/08/2023 Get US neck and she now will see Dr Gannon her cardiologi st US neck 04/22/2024 : Benign Dental caries 88267827 K 02.9 Dental caries noted on the upper teethDo not take the fosamax 2 weeks prior to dental procedures !Get on augmentin as per requestRef er to dental surgeon as per her requestWil l have to discuss with her cardiologi st regarding use of coumadin [id number] Roque holden MD [facility] Primary Care [address] [place] [address] 09/16/2024 13:57:07 09/16/2024 14:42:29 Screening - NAD 135781462 Z13.9 C-scope: Get this if not done, [...] understand ing of the above Essential hypertension 01603801 I10 On amiodarone 200mg dailyOn coreg 25mg bid 1/[address] Huitron n entresto 49-51mg bid, now should be on bid as per Dr Ceja 06/07/2024 On spironolac tone 25mg dailyOn K Hypothyroidism 43278533 E03.9 On levothyrox ine 150mcgs daily,misael wedGet labs Persistent insomnia 1919 72013 G47.09 On trazodone 150mg 1.[address] Amaya Moderate r ecurrent major depression 48513596 F33.1 On clonazepam 0.5mg tidOn venlafaxin e ER 37.5mg dailyOn vraylar 1.5m dailySees Dr Amaya, not suicidal or homicidal Nonischemi c congestive cardiomyopathy 7401446744 [address] Ceja cardiology [...] spironolac tone 25mg dailyOn coumadin D/c from [facility] 01/03/2024 for SOB, acute respirator y failure [...] with her cardiologi st Gynecologi c examination 86374802 Z01.419 Serum betty min B12 below reference range 821732764 R79.89 On b12, get labs Abdominal pain 48694298 R10.[address] abd donePrior hx of surgery to the abdomen, she is not very sure why she had to have surgeryMay need to see GI CT A/P: 12/13/2023 : Hiatal hernia, needs to see Timothy Fairchild GI: To get EGD, take PPI an dfamotidin e, take OTC gguxviy137 mg PRN for bloating, may need a course of xifaxan EGD 01/10/2024 : Dr Fairchild Hiatal hernia 52594038 K 44.9 CT A/P: 12/13/2023 : Hiatal hernia, needs to see GI S/p EGD 01/10/2024 Dizziness 246656305 R42 [place] [facility]XR Chest 12/08/2023 S/p CTA 12/08/2023 Lung nodules noted Multiple n odules of lung 014745513 R91.8 [facility] : NegDr Haque 03/20/2024 Mass of neck 534431243 R 22.1 Fullness noted in the yordy supraclavi cular areaS/P CTA done 12/08/2023 Get US neck and she now will see Dr Gannon her cardiologi st US neck 04/22/2024 : Benign Dental caries 57912098 K 02.9 Dental caries noted on the [...] well Pain of ri ght hip joint 2086503322 94708 M25.551 S/p fallSeen in the UC, treated with gabapentin and flexerill, not taking at this timeGet on MDP, get Xrays and refer to Dr Prince as she does not want to be treated in [facility] Tear of skin 617799772 T 14.8XXA L forearmHea ling, no bleeding noted, no swelling or redness, advised to keep area clean and dry [id number] Roque holden MD [facility] Primary Care Kelsey sanchez [address] [facility] [address] [place] [address] 10/14/2024 14:46:11 10/14/2024 16:10:33 Screening - NAD 068443337 Z13.9 C-scope: Get this if not done, [...] understand ing of the above Essential hypertension 48340224 I10 On amiodarone 200mg dailyOn coreg 25mg daily Dr Huitron n entresto 49-51mg bid, now should be on 24/[address] Ceja 06/07/2024 On spironolac tone 25mg dailyOn KSees Dr Gannon Hypothyroidism 50571262 E03.9 On levothyrox ine 150mcgs daily,misael wedGet labs Persistent insomnia 1919 05356 G47.09 On trazodone 150mg 1.[address] Amaya Moderate r ecurrent major depression 16477952 F33.1 On clonazepam 0.5mg tidOn venlafaxin e ER 37.5mg dailyOn vraylar 1.5m dailySees Dr Amaya, not suicidal or homicidal Nonischemi c congestive cardiomyopathy 2020157161 [address] Ceja cardiology , last OV 08/10/2023 , f/u in 3 monthsS/p life vest 1S/p ICD in [place] BapStarted on entresto, amiodarone On amiodarone 200mg 2 tabs daily, should be taking 200mg daily as per Dr Ceja cardiologi st note 08/10/2023 , MA did call Dr Cjea' s office and confirmed she should be on one tablet, this was conveyed to Jessica coreg 12.5mg bidOn entresto 49-51mg bidOn spironolac tone 25mg dailyOn coumadin D/c from [facility] 01/03/2024 for SOB, acute respirator y failure [...] f/u in 6 months Gynecologi c examination 68360920 Z01.419 Serum betty min B12 below reference range 909982220 R79.89 On b12, get labs Abdominal pain 63198180 R10.[address] abd donePrior hx of surgery to the abdomen, she is not very sure why she had to have surgeryMay need to see GI CT A/P: 12/13/2023 : Hiatal hernia, needs to see Timothy Fairchild GI: To get EGD, take PPI an dfamotidin e, take OTC qjmkbua942 mg PRN for bloating, may need a course of xifaxan EGD 01/10/2024 : Dr Fairchild Hiatal hernia 77735298 K 44.9 CT A/P: 12/13/2023 : Hiatal hernia, needs to see GI S/p EGD 01/10/2024 [facility]78453 [facility] S[facility]p [facility] 12/08/2023 Lung nodules noted Multiple n odules of lung 130937362 R91.8 CTA 12[facility] 04/22/[facility] : Law Haque 03/20/2024 Mass of neck 617626402 R 22.1 Fullness noted in the yordy supraclavi cular areaS/P CTA done 12/08/2023 Get US neck and she now will see Dr Gannon her cardiologi st US neck 04/22/2024 : Benign Dental caries 83462378 K 02.9 Dental caries noted on the [...] well Pain of ri ght hip joint 6067168446 05270 M25.551 S/p fallSeen in the UC, treated with gabapentin and flexerill, not taking at this timeGet on MDP, get Xrays and refer to Dr Prince as she does not want to be treated in [facility] OV 10/14/2024 :Xr hip: 09/16/2024 : Neg Tear of skin 753573830 T 14.8XXA L forearmHea ling, no bleeding noted, no swelling or redness, advised to keep area clean and dry Chronic ki dney disease 574521703 N18.9 Get a referral to nephrology Hyperkalemia 51064195 E8 7.5 Repeat the K [id number] Roque holden MD [facility] Primary Care Kelsey sanchez [address] [facility] [address] [facility] [place] [address] 11/18/2024 10:13:18 11/18/2024 12:24:26 Screening - NAD 457963346 Z13.9 C-scope: Get this if not done, [...] understand ing of the above Essential hypertension 75355979 I10 On amiodarone 200mg daily, understand s the side effects for this medication , including thyroid abnormalit iesOn coreg 25mg daily Dr Huitron n entresto 49-51mg bid, now should be on bid as per Dr Ceja 06/07/2024 On spironolac tone 25mg dailyOn KSees Dr Gannon Hypothyroidism 26131046 E03.9 On levothyrox ine 150mcgs daily,misael wedGet labs Persistent insomnia 1919 54446 G47.09 On trazodone 150mg 1.[address] Amaya Moderate r ecurrent major depression 18243194 F33.1 On clonazepam 0.5mg tidOn venlafaxin e ER 37.5mg dailyOn vraylar 1.5m dailySees Dr Amaya, not suicidal or homicidal Nonischemi c congestive cardiomyopathy 1750077257 [address] Ceja cardiology [...] spironolac tone 25mg dailyOn coumadin D/c from [facility] 01/03/2024 for SOB, acute respirator y failure [...] INR, [facility] she will come in tomorrow to [facility] in [place] Gynecologi c examination 46398198 Z01.419 Serum betty min B12 below reference range 777719738 R79.89 On b12, get labs Abdominal pain 85371697 R10.[address] abd donePrior hx of surgery to the abdomen, she is not very sure why she had to have surgeryMay need to see GI CT A/P: 12/13/2023 : Hiatal hernia, needs to see Timothy Fairchild GI: To get EGD, take PPI an dfamotidin e, take OTC hgiiqay524 mg PRN for bloating, may need a course of xifaxan EGD 01/10/2024 : Dr Fairchild Hiatal hernia 81436371 K 44.9 CT A/P: 12/13/2023 : Hiatal hernia, needs to see GI S/p EGD 01/10/2024 Dizziness 002972009 R42 [place] [facility] Chest 12/08/2023 S/p CTA 12/08/2023 Lung nodules noted Multiple n odules of lung 591103616 R91.8 CT[facility] 04/[facility] : Law Haque 03/20/2024 Mass of neck 017393664 R 22.1 Fullness noted in the yordy supraclavi cular areaS/P CTA done 12/08/2023 Get US neck and she now will see Dr Gannon her cardiologi st US neck 04/22/2024 : Benign Dental caries 76468300 K 02.9 Dental caries noted on the upper teethDo not take the fosamax 2 weeks prior to dental procedures !Get on augmentin as per requestRef er to dental surgeon as per her requestLuizajayashree jayashree have to discuss with her cardiologi st regarding use of coumadin OV 09/16/2024 : Now states that she has 'pulled out all' the teeth, does well Pain of ri ght hip joint 7675329262 01257 M25.551 S/p fallSeen in the UC, treated with gabapentin and flexerill, not taking at this timeGet on MDP, get Xrays and refer to Dr Prince as she does not want to be treated in [facility] OV 10/14/2024 :Xr hip: 09/16/2024 : Neg Tear of skin 869530087 T 14.8XXA L forearmHea ling, no bleeding noted, no swelling or redness, advised to keep area clean and dry Chronic ki dney disease 852321780 N18.9 Get a referral to nephrology Hyperkalemia 31623019 E8 7.5 Repeat the CMP Nausea 082862103 R11.0 Is on chronic use of zofran, [...] today 11/18/2024 Acute urin sherrill tract infection 206635552 N39.0 Unable to provide any urine for UAStart on amoxicilli n 500mg po tidNotify if not better Atrial fibrillation 1139 6004 I48.91 [id number] Loreta Haque MD [facility] Pulmonolo gy [address], [facility] [address] [place] [address] 01/01/2025 14:42:18 01/03/2025 12:15:30 Dyspnea on exertion 33223151 R06.09 R05.9 T78.40XA D89.9 Mild chron ic obstructive pulmonary disease 775016443 J44.9 765090 [id number] Roque holden MD [facility] Primary Care Kelsey sanchez [address] [facility] [address] [place] [address] 01/13/2025 14:26:53 01/13/2025 16:02:13 Screening - NAD 351700732 Z13.9 C-scope: Get this if not done, [...] her cardiology , told to come to [facility] for her INR Essential hypertension 15926200 I10 On amiodarone 200mg daily, understand s the side effects for this medication , including thyroid abnormalit iesOn coreg 25mg daily Dr Huitron n entresto bid as per Dr Ceja 06/07/2024 On lasixOn spironolac tone 25mg dailyOn KSees Dr Gannon as per her history 01/13/2025 , she does have an apt in 02/2025 Hypothyroidism 29906760 E03.9 On levothyrox ine 150mcgs daily,misael wedGet labs Persistent insomnia 1919 70011 G47.09 On trazodone 150mg 1.[address] Jose Luis Bae r ecurrent major depression 98502588 F33.1 On clonazepam 0.5mg tidOn venlafaxin e ER 37.5mg dailyOn vraylar 1.5m dailySees Dr Amaya, not suicidal or homicidal Nonischemi c congestive cardiomyopathy 7108084865 [address] Ceja cardiology [...] spironolac tone 25mg dailyOn coumadin D/c from [facility] 01/03/2024 for SOB, acute respirator y failure [...] INR, since the INR machine not in [facility] [place] office she will come in tomorrow to [facility] in [place] OV 01/13/2025 : Get INR as scheduled, will come to [facility] on 01/15/2025 Gynecologi c examination 95552906 Z01.419 Serum betty min B12 below reference range 280263775 R79.89 On b12, get labs Abdominal pain 92341044 R10.[address] abd donePrior hx of surgery to the abdomen, she is not very sure why she had to have surgeryMay need to see GI CT A/P: 12/13/2023 : Hiatal hernia, needs to see Timothy Fairchild GI: To get EGD, take PPI an dfamotidin e, take OTC gtryiob902 mg PRN for bloating, may need a course of xifaxan EGD 01/10/2024 : Dr Fairchild Hiatal hernia 78277277 K 44.9 CT A/P: 12/13/2023 : Hiatal hernia, needs to see GI S/p EGD 01/10/2024 Dizziness 962455875 R42 [place] [facility] Chest 12/08/2023 S/p CTA 12/08/2023 Lung nodules noted Multiple n odules of lung 073800290 R91.8 CT[facility] : Law Haque 03/20/2024 Dr Haque 01/22/2025 next apt On albuterolS ee Dr Haque Mass of neck 109668240 R 22.1 Fullness noted in the yordy supraclavi cular areaS/P CTA done 12/08/2023 Get US neck and she now will see Dr Gannon her cardiologi st US neck 04/22/2024 : Benign Dental caries 94831723 K 02.9 Dental caries noted on the [...] well Pain of ri ght hip joint 2271594958 11824 M25.551 S/p fallSeen in the UC, treated with gabapentin and flexerill, not taking at this timeGet on MDP, get Xrays and refer to Dr Prince as she does not want to be treated in [facility] OV 10/14/2024 :Xr hip: 09/16/2024 : Neg Tear of skin 198482020 T 14.8XXA L forearmHea ling, no bleeding noted, no swelling or redness, advised to keep area clean and dry Chronic ki dney disease 269160160 N18.[address] Dela Cruz has given her the zofran Hyperkalemia 31065729 E8 7.5 Repeat the CMP Nausea 230351969 R11.0 Is on chronic use of zofran, [...] wanting to see GI Screening mammography 24 398526 Z12.31 95223584 Eruption 198687236 R21 11781 Red itchy rash in the groinNot examined, will start on trim-nysta tin crean [id number] Loreta Haque MD [facility] Pulmonolo [facility] [place] [address] [facility] [address] [place] [address] 03/13/2025 14:23:19 03/13/2025 16:02:09 Mild chronic obstructive pulmonary disease 338191866 J44.9 786430 [id number] Roque holden MD [facility] Primary Care [address] [place] [address] 04/21/2025 14:25:03 04/21/2025 15:19:23 Screening - NAD 721092415 Z13.9 C-scope: Get this if not done, [...] understand ing of the above Essential hypertension 74715869 I10 On amiodarone 200mg daily, understand s the side effects for this medication , including thyroid abnormalit iesOn coreg 25mg daily Dr Elana porras entresto 24/[address] Ceja 06/07/2024 , not taking thisOn losartan 50mg daily as per Dr Elana porras lasixOn spironolac tone 25mg dailyOn K Sees Dr Gannon Hypothyroidism 85482790 E03.9 On Unithroid 150mcgs daily,misael wedGet labs Persistent insomnia 1919 90344 G47.09 On trazodone 150mg 1.[address] Amaya Moderate r ecurrent major depression 94245113 F33.1 On clonazepam 0.5mg tidOn venlafaxin e ER 37.5mg dailyOn vraylar 1.5m dailySees Dr Amaya, not suicidal or homicidal Nonischemi c congestive cardiomyopathy 1545668620 [address] Ceja cardiology [...] spironolac tone 25mg dailyOn coumadin D/c from [facility] 01/03/2024 for SOB, acute respirator y failure [...] INR, since the INR machine not in [facility] office she will come in tomorrow to [facility] in [place] OV 01/13/2025 : Get INR as scheduled, will come to [facility] on 01/15/2025 OV 04/21/2025 :[facility] d/c 03/31/2025 , treated for CHF as was not taking her medication s as per d/c summary, also treated for pneumoniaN ow has dizziness, will now refer to ER and call placed to ER and case d/w the ER Gynecologi c examination 57590818 Z01.419 Serum betty min B12 below reference range 032870370 R79.89 On b12, get labs Abdominal pain 92824324 R10.[address] abd donePrior hx of surgery to the abdomen, she is not very sure why she had to have surgeryMay need to see GI CT A/P: 12/13/2023 : Hiatal hernia, needs to see Timothy Fairchild GI: To get EGD, take PPI an dfamotidin e, take OTC azaxizf494 mg PRN for bloating, may need a course of xifaxan EGD 01/10/2024 : Dr Fairchild Hiatal hernia 01265155 K 44.9 CT A/P: 12/13/2023 : Hiatal hernia, needs to see GI S/p EGD 01/10/2024 Dizziness 585690220 R42 [place] [facility] Chest 12/08/2023 S/p CTA 12/08/2023 Lung nodules noted Multiple n odules of lung 756777602 R91.8 [facility] 04/[facility] : Law Haque 03/20/2024 Dr Haque 01/22/2025 next apt On albuterolS ee Dr Haque Mass of neck 841515353 R 22.1 Fullness noted in the yordy supraclavi cular areaS/P CTA done 12/08/2023 Get US neck and she now will see Dr Gannon her cardiologi st US neck 04/22/2024 : Benign Dental caries 56847269 K 02.9 Dental caries noted on the [...] well Pain of ri ght hip joint 5610448574 78657 M25.551 S/p fallSeen in the UC, treated with gabapentin and flexerill, not taking at this timeGet on MDP, get Xrays and refer to Dr Prince as she does not want to be treated in [facility] OV 10/14/2024 :Xr hip: 09/16/2024 : Neg Tear of skin 996496265 T 14.8XXA L forearmHea ling, no bleeding noted, no swelling or redness, advised to keep area clean and dry Chronic ki dney disease 599309786 N18.[address] Dela Cruz has given her the zofran Hyperkalemia 01471323 E8 7.5 Repeat the CMP Nausea 426140788 R11.0 Is on chronic use of zofran, [...] wanting to see GI Screening mammography 24 793022 Z12.31 82791145 [facility] [id number] [facility] [address] Red itchy rash in the groinNot examined, will start on trim-nysta tin cremouna [id number] Roque holden MD [facility] Primary Care Kelsey sanchez [address] [facility] [address] [place] [address] 05/07/2025 11:39:42 05/07/2025 13:00:48 Screening - NAD 175222190 Z13.9 C-scope: Get this if not done, [...] understand ing of the above Essential hypertension 98497796 I10 On amiodarone 200mg daily, understand s the side effects for this medication , including thyroid abnormalit iesOn coreg 25mg daily Dr Huitron n entresto bid as per Dr Ceja 06/07/2024 , not taking thisOn losartan 50mg daily as per Dr Ceja, this was d/c 04/25/2025 by the hospitalis tOn lasixOn spironolac tone 25mg dailyOn K Sees Dr Gannon Hypothyroidism 99111149 E03.9 On Unithroid 150mcgs daily,misael wedGet labs Persistent insomnia 1919 71660 G47.09 On trazodone 150mg 1.[address] Amaya Moderate r ecurrent major depression 51797958 F33.1 On clonazepam 0.5mg tidOn venlafaxin e ER 37.5mg dailyOn vraylar 1.5m dailySees Dr Amaya, not suicidal or homicidal Nonischemi c congestive cardiomyopathy 2779871815 [address] Ceja cardiology [...] spironolac tone 25mg dailyOn coumadin D/c from [facility] 01/03/2024 for SOB, acute respirator y failure [...] INR, [facility] [place] [facility] she will come in tomorrow to [facility] in [place] OV 01/13/2025 : Get INR as scheduled, will come to [facility] on 01/15/2025 OV 04/21/2025 :[facility] d/c 03/31/2025 , treated for CHF as [...] HH also as per recommenda tion from [facility] also ordered Gynecologi c examination 34159916 Z01.419 Serum betty min B12 below reference range 221366875 R79.89 On b12, get labs Abdominal pain 31310524 R10.[address] abd donePrior hx of surgery to the abdomen, she is not very sure why she had to have surgeryMay need to see GI CT A/P: 12/13/2023 : Hiatal hernia, needs to see Timothy Fairchild GI: To get EGD, take PPI an dfamotidin e, take OTC tscctqu862 mg PRN for bloating, may need a course of xifaxan EGD 01/10/2024 : Dr Fairchild Hiatal hernia 14871053 K 44.9 CT A/P: 12/13/2023 : Hiatal hernia, needs to see GI S/p EGD 01/10/2024 Dizziness 330737668 R42 [place] [facility] Chest 12/08/2023 S/p CTA 12/08/2023 Lung nodules noted Multiple n odules of lung 158297409 R91.8 CT[facility]23 [facility] 04/[facility] : Law Haque 03/20/2024 Dr Haque 01/22/2025 next aptDr Haque 03/13/2025 , next 03/12/[address] Haque Mass of neck 158020920 R 22.1 Fullness noted in the yordy supraclavi cular areaS/P CTA done 12/08/2023 Get US neck and she now will see Dr Gannon her cardiologi st US neck 04/22/2024 : Benign Dental caries 39989283 K 02.9 Dental caries noted on the [...] well Pain of ri ght hip joint 1248696499 93482 M25.551 S/p fallSeen in the UC, treated with gabapentin and flexerill, not taking at this timeGet on MDP, get Xrays and refer to Dr Prince as she does not want to be treated in [facility] OV 10/14/2024 :Xr hip: 09/16/2024 : Neg Tear of skin 730781885 T 14.8XXA L forearmHea ling, no bleeding noted, no swelling or redness, advised to keep area clean and dry Chronic ki dney disease 302397741 N18.[address] Dela Cruz has given her the zofran Hyperkalemia 83874163 E8 7.5 Repeat the CMP Nausea 234819685 R11.0 Is on chronic use of zofran, [...] nauseaUA: Cloudy and orange with Addendum: 05/08/2025 :[facility] 05/07/2025 , d/c with diagnosis of UTI Screening mammography 24 824300 Z12.31 31246800 Transition of care 02808 01204 105 Z75.8 History of cerebrovascular accident 484707752 Z86.73 507609 OV 05/07/2025 :As per D/c summary from [facility] could not get a MRI and as per patient now is to get a MRI at [facility] but this has not yet happened Patient still has dizziness, has also noted falls in her bathroomSh e is hypotensiv e and bradycardi cDid recommend she proceed to the ER todayDid discuss with Pippa her CG and he wanted initially to take her in his car, but patient did decide to call 911, case discussed with the EMTsCrola also placed with the ER MD at [facility], he seemed reluctant to accept this patient stating that 'we do not do MRI with pacemaker and she would need to be transferre d', discussed with the ER MD that it would be his prerogativ e to decide if the patient needs further care in another facility, then the ER MD stated that she should be sent via scrum coach, explained to him that the CG had initially refused but now will do so Urinary symptoms [id number] [id number] Goals Section Goal Description Progress Status Start [...] Briceno Member ID Guarantor Name 05/27/2025 1 [facility] - MEDICARE COMPLETE - CHOICE PLAN 2 (MEDICARE REPLACEMENT REGIONAL PPO) [id number] Yi Martino [id number] Yi Martino Notes Date Note Type Note [...] changing clothesAlleviating factors: rest Modified [facility] [place] ([facility]) Dyspnea Scale - Grade 2Grade 0 [...] chance of dozing. Loreta Haque MD [address], [place], [address], [employer] 01/01/2025 15:24:31 01/13/2025 text/html OV 11/06/2023: Here [...] is on albuterol Roque Reddy MD [address], [place], [address] [employer] 01/14/2025 19:24:11 03/13/2025 text/html Primary care/Referring provider: [...] changing clothesAlleviating factors: rest Modified [facility] [place] ([facility]) Dyspnea Scale - Grade 2Grade 0 [...] chance of dozing. Loreta Haque MD [address] [facility], [facility] [address], [place], [address], [place] - [facility] 03/13/2025 15:21:35 04/21/2025 text/html OV 11/06/2023: Here [...] she had a contusion Roque Reddy MD [address] [place] [address] [place], [facility] [address], [place], [address], [place] - [facility] [employer] 04/21/2025 16:03:43 05/07/2025 text/html OV 11/06/2023: Here [...] reportedShlexx is recently d/c from hospital for CHFShe has also sustained a fall and now notes back pain, was seen in the UC and was told she had a contusion OV 05/07/2025:Here for f/u apt, s/p d/c from [facility] 04/25/2025Still has dizziness, states that yesterday when she was in her shower she got dizzy and fell backNow also has noted supra pubic abdominal pain, states that her pain is quite intense, also has nausea but no vomiting, she denies any fevers or chillsStates that she was to see cardiology but has not been contacted by Dr Gannon her unit secy, she does state that in the last hospital stay her losartan was d/cShe also states that she did have a heart monitor put in and taken away upon d/c but was not told what her report wasShlexx also was told she may have a stroke but has not been contacted by [facility] for her MRI, as per her d/c note she did have a CT head but now needed a MRI but this could not be done as she has a pacemaker Roque Reddy MD [address], [place] [address], [place] [facility] [employer] 06/01/2025 17:06:40 OBGyn Episode No OBEpisode recorded.
--- OUTSIDE RECORDS SUMMARY | 2025-07-15 17:42 | XMS_ITS | Clinical Summary ---
Author Organization 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
--- OUTSIDE RECORDS SUMMARY | 2025-07-15 17:42 | XMS_ITS | Clinical Summary ---
Author Organization [facility] Address [address] [place] [address] Phone Care Team Providers Care Business Process Architect Name Role Phone Lana Tovar MD [...] to complete this topic Insurance MEDICARE C [facility] Care Teams Business Process Architect Relationship Specialty Start Date End Date Lana Tovar MD [address] [place] [address] PCP - General Family Medicine 12/23/16
--- OUTSIDE RECORDS SUMMARY | 2025-07-15 17:42 | XMS_ITS | Clinical Summary ---
Author Organization [facility] [address] Address [address] [place] [address] Care Team Providers Care Global Transportation Manager Name Role Phone Bandar Gaffney MD Unavailable [phone] Dillan Reddy MD Primary Care Provide r [...] in situ 04/13/2021 Overview (04/21/2023): Dodge DDD Columbia BI-V ICD imp on 04/12/21 for DCM, [...] Department Care Team Description 07/15/2025 1:53 PM GRITTING MACHINE OPERATOR Hospital Encounter [facility] - Imaging [address] [place] [phone] Pacemaker 07/15/2025 1:02 PM GRITTING MACHINE OPERATOR Hospital Encounter [facility] - Imaging [address] [place] [phone] Cerebral infarction, unspecified mechanism (HCC) 07/09/2025 Telephone [facility] Cardiology [address] [facility] [address] [place] [address] Samy Ceja MD 06/12/2025 10:21 AM CDT - 06/12/2025 11:59 PM CDT Hospital Encounter [facility] - [facility] [address] [place] [address] Cerebral infarction, unspecified mechanism (HCC) Discharge Disposition: Discharge to home or self care 06/09/2025 7:15 AM CDT Ancillary Procedure [facility] Cardiology [address] [facility] [address] [place] [address] ICD (implantable cardioverter-defibrill ator), biventricular, in situ (Primary Dx); Dilated cardiomyopathy (HCC); VT (ventricular tachycardia); Paroxysmal atrial fibrillation (HCC); ICD (implantable cardioverter-defibrill ator) discharge 06/09/2025 Telephone [facility] Cardiology [address] [place] [address] Samy Ceja MD 05/27/2025 Telephone [facility] Cardiology [address] [place] [phone] Samy Ceja MD from Last 3 [...] often do you attend chur ch or quaker services? Never 04/13/2021 Do you belong to [...] on file Legal Sex Female 2:33 AM GRITTING MACHINE OPERATOR Gender Identity Not on file [...] 68 kg (150 lb) 07/15/2025 1:45 PM GRITTING MACHINE OPERATOR Height 162.6 cm (5' 4) 07/15/2025 1:45 PM GRITTING MACHINE OPERATOR Body Mass Index 25.75 07/15/2025 1:45 PM GRITTING MACHINE OPERATOR Plan of Treatment Health Maintenance Due [...] 05/15/2018, 11/2015 Medical Devices Implanted Type Area Wedger And Gluer Device Identifier Shelf Expiration Date Model / Serial / Lot Dodge Vascular [id number] Defib Cardiac [id number] Columbia Hf Df4 Is-4 Is-1 Cnctr - [id number] - [id number] Implanted:Qty: 1 on 04/12/2021 by Bandar Gaffney MD at [facility] ICD Dodge Vascular [id number] 02/01/2023 C [id number] / [id number] / [employer] 7120q/65 Durata 7fr 65cm 2 Coil Df-4 True Bipolar Active Fixation - [id number] - [id number] Implanted:Qty: 1 on 04/12/2021 by Bandar Gaffney MD at [facility] Lead [employer] [id number] 02/01/2022 7120Q/65 / [id number] / [employer] 2088tc/52 Tendril Sts 6fr 52cm Is-1 Connector Active Fixation Bipolar Soft - [id number] - [id number] Implanted:Qty: 1 on 04/12/2021 by Bandar Gaffney MD at [facility] Lead [employer] [id number] 03/03/2024 2088TC/52 / [id number] / [employer] 1458q/86 Quartet 5fr [id number] 4 Electrode Is-4 Connector Steerable Tip - [id number] - [id number] Implanted:Qty: 1 on 04/12/2021 by Bandar Gaffney MD at [facility] Lead [employer] [id number] 02/02/2024 1458Q/86 / [id number] / Procedures Procedure Name Priority Date/Time Associated Diagnosis Comments MRI BRAIN WO CONTRAST Schedule Routine, Read Routine (OP Routine) 07/15/2025 3:57 PM GRITTING MACHINE OPERATOR Cerebral infarction, unspecified mechanism (HCC) XR CHEST PA LATERAL 2 VIEWS Schedule NAIN, Read NAIN (Appt Today, Awaiting Results) 07/15/2025 2:26 PM GRITTING MACHINE OPERATOR Pacemaker DEVICE CHECK - REMOTE Routine 06/17/2025 11:29 AM CDT Dilated cardiomyopathy (HCC) VT (ventricular tachycardia) Paroxysmal atrial fibrillation (HCC) MRI SAFETY, TECHNICAL ASSESSMENT, 15 MIN Schedule Routine, Read Routine (OP Routine) 06/12/2025 10:22 AM CDT Cerebral infarction, unspecified mechanism (HCC) from Last 3 Months Results * MRI Brain WO Contrast (07/15/2025 3:57 PM GRITTING MACHINE OPERATOR) Anatomical Region Laterality Modality Head and Neck N/A Magnetic Resonan ce 07/15/2025 4:06 PM GRITTING MACHINE OPERATOR Impressions 07/15/2025 4:06 PM GRITTING MACHINE OPERATOR No acute intracranial abnormality. Suggestion of a large arachnoid cyst along the left parietal convexity. Electronically signed by: Alon Vasquez MD Narrative 07/15/2025 4:06 PM GRITTING MACHINE OPERATOR EXAMINATION: Magnetic resonance imaging (MRI) of [...] PA Lateral 2 Views (07/15/2025 2:26 PM GRITTING MACHINE OPERATOR) Anatomical Region Laterality Modality Body, Chest N/A Computed Radiogr aphy 07/15/2025 3:24 PM GRITTING MACHINE OPERATOR Impressions 07/15/2025 3:24 PM GRITTING MACHINE OPERATOR 1. Biventricular pacing internal cardiac defibrillator which appears to be within expected limits and unchanged in course compared to the previous examination. 2. Otherwise negative chest radiograph without significant interval change. COMMENT: Please see above for additional findings. Electronically signed by: Jass Lopez M.D. Narrative 07/15/2025 3:24 PM GRITTING MACHINE OPERATOR XR CHEST PA LATERAL 2 VIEWS [...] Narrative 06/23/2025 7:18 AM CDT Dodge DDD Columbia BI-V ICD imp on 04/12/21 for DCM, VT, Afib. Yeimy. Nora. [place] remote. [employer] Advisory--risk for loss [...] warfarin Follow up: Office Pacemaker/ICD scheduled 05/27/26 [place] remote 09/09/25 Chadd Martínez, CLARITZA Samy Ceja MD [facility] [...] Insurance UHC MEDICARE ADVANTAGE UHC MEDICARE ADVANTAGE [facility] MEDICARE ADVANTAGE Advance Directives For more information, please contact: [phone] * Full Code (Latest Code Status on File) Date Activated Date Inactivated Comments 03/23/2023 7:04 AM 03/26/2023 7:27 PM Care Teams Global Transportation Manager Relationship Specialty Start Date End Date Dillan Reddy MD [address] [address] PCP - General Internal Medicine 11/09/23 Bandar Gaffney MD Consulting Physician Cardiology 04/13/21
--- OUTSIDE RECORDS SUMMARY | 2025-07-15 17:42 | XMS_ITS | Encounter Summary ---
Author Organization [facility] Address [address] [facility] [address] [place] [address] Care Team Providers Care Management Architect Name Role Phone Lana Tovar MD Primary Care Provider + Lana Tovar MD Primary Care Provider + Bandar Gaffney MD Unavailable [phone] Dillan Reddy MD Primary Care Provide r Encounter Details Date Type Department Care Team (Late st Contact Info) Description 2016 Orders Only [facility] ProviderSaurabh MD [address] [place] [address] Social History Tobacco Use Types Packs/Day Years Used Date Smoking Tobacco: Never Alcohol Use Standard Drinks/Week Comments No 0 (1 standard drink = 0.6 oz pur e alcohol) Comments Unknown Sex and Gender Information Value Date Recorded Sex Assigned at Not on file Legal Sex Female 2:33 AM TUMBLER DYEING MACHINE OPERATOR Gender Identity Not on file [...] on filedocumented in this encounter Care Teams Management Architect Relationship Specialty Start Date End Date Lana Tovar MD PCP - General 12/02/16 11/08/23 Lana Tovar MD PCP - General 02/11/13 12/01/16 Dillan Reddy MD [address] [address] PCP - General Internal Medicine 11/09/23 Bandar Gaffney MD Consulting Physician Cardiology 04/13/21 documented as of this encounter
--- OUTSIDE RECORDS SUMMARY | 2025-07-15 17:42 | XMS_ITS | Encounter Summary ---
Author Organization [facility] Healthcare Address [address] [place] [address] Care Team Providers Care Outside Rigger Name Role Phone Bandar Gaffney MD Unavailable [phone] Dillan Reddy MD Primary Care Provide r Encounter Details Date Type Department Care Team (Late st Contact Info) Description 12/04/2024 Telephone [facility] Cardiology [address] [facility] [address] [facility] [address] [place] [address] Samy Ceja MD [address] [facility] [address] [place] [address] Social History Tobacco Use Types [...] any clubs o r organizations such as quaker groups, unions, fraternal or athletic groups, or [...] on file Legal Sex Female 2:33 AM MONOTYPE CASTER Gender Identity Not on file Sexual Orientation Not on file documented as of this encounter Plan of Treatment Not on file documented as of this encounter Visit Diagnoses Not on filedocumented in this encounter Care Teams Outside Rigger Relationship Specialty Start Date End Date Dillan Reddy MD [address] [address] PCP - General Internal Medicine 11/09/23 Bandar Gaffney MD Consulting Physician Cardiology 04/13/21 documented as of this encounter
--- OUTSIDE RECORDS SUMMARY | 2025-07-15 17:42 | XMS_ITS | Encounter Summary ---
Author Organization [facility] Healthcare Address [address] [place] [address] Care Team Providers Care Accounts Payable Technician Name Role Phone Lana Tovar MD Primary Care Provider + Bandar Gaffney MD Unavailable [phone] Dillan Reddy MD Primary Care Provide r Encounter Details Date Type Department Care Team (Late st Contact Info) Description 01/17/2018 Orders Only [facility] Health Information Management [address] [place] [address] Scanning, Provider Social History Tobacco Use Types Packs/Day Years Used Date Smoking Tobacco: Never Alcohol Use Standard Drinks/Week Comments No 0 (1 standard drink = 0.6 oz pur e alcohol) Comments Unknown Sex and Gender Information Value Date Recorded Sex Assigned at Not on file Legal Sex Female 2:33 AM PUPPY TRAINER Gender Identity Not on file Sexual Orientation [...] on filedocumented in this encounter Care Teams Accounts Payable Technician Relationship Specialty Start Date End Date aLna Tovra MD PCP - General 12/02/16 11/08/23 Dillan Reddy MD [facility] [address] [address] PCP - General Internal Medicine 11/09/23 Bandar Gaffney MD Consulting Physician Cardiology 04/13/21 documented as of this encounter
--- OUTSIDE RECORDS SUMMARY | 2025-07-15 17:42 | XMS_ITS | Encounter Summary ---
Author Organization [facility] Healthcare Address [address] [place] [address] Care Team Providers Care Road Roller Operator Hot Mix Name Role Phone Lana Tovar MD Primary Care Provider + Bandar Gaffney MD Unavailable [phone] Dillan Reddy MD Primary Care Provide r Encounter Details Date Type Department Care Team (Late st Contact Info) Description 03/26/2018 Orders Only [facility] Health Information Management [address] [place] [address] Scanning, Provider Social History Tobacco Use Types Packs/Day Years Used Date Smoking Tobacco: Never Smokeless Tobacco: Never Alcohol Use Standard Drinks/Week Comments No 0 (1 standard drink = 0.6 oz pur e alcohol) Comments Unknown Sex and Gender Information Value Date Recorded Sex Assigned at Not on file Legal Sex Female 2:33 AM 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
--- NOTE | 2025-07-15 18:01 | ED.GENADULT ---
HPI - General Adult General Chief complaint: Weakness Stated complaint: weak Time Seen by Provider: 07/15/25 17:20 History of Present Illness HPI narrative: 79-year-old female present to the emergency department for evaluation for worsening generalized weakness. Patient was just discharged from the hospital yesterday. She had been admitted for hypertension and CHF. Patient states that she was feeling weak at time of discharge. After getting home patient states she was having increased difficulty performing activities of daily living. Patient states that she was having difficulty getting dressed this morning and was also unable to eat today. Patient states she was walking to the bathroom using her walker when she had a ground level fall and fell back striking her back. Patient states he did not strike her head. Patient had no loss consciousness. At this time patient is stating that she does not feel safe going home and is requesting placement into a rehab facility. Patient is complaining of mid back pain secondary to the fall. Related Data Home Medications ?Medication ?Instructions ?Recorded ?Confirmed ?Last Taken ?Type trazodone 150 mg tablet 150 mg PO HS 03/22/21 07/11/25 07/10/25 History venlafaxine 37.5 mg 37.5 mg PO DAILY 08/22/22 07/11/25 07/10/25 History capsule,extended release 24 hr (Effexor XR) rosuvastatin 40 mg tablet 40 mg PO DAILY 12/27/23 07/11/25 07/10/25 History amiodarone 200 mg tablet 200 mg PO DAILY 01/02/24 07/11/25 07/10/25 History clonazepam 0.5 mg tablet 0.5 mg PO TID 01/02/24 07/11/25 07/10/25 History levothyroxine 150 mcg tablet 150 mcg PO DAILY 01/02/24 07/11/25 07/10/25 History carvedilol 12.5 mg tablet 25 mg PO DAILY 12/24/24 07/11/25 07/10/25 History cyanocobalamin (vitamin B-12) 1,000 mcg subcut MONTHLY 03/25/25 07/11/25 06/05/25 History 1,000 mcg/mL injection solution donepezil 10 mg tablet 10 mg PO HS 03/25/25 07/11/25 07/10/25 History spironolactone 25 mg tablet 25 mg PO DAILY 03/25/25 07/11/25 07/10/25 History acetaminophen 650 mg 650 mg PO Q8H PRN pain 05/20/25 07/11/25 07/10/25 History tablet,extended release (8 Hour Pain Reliever) losartan 50 mg tablet 50 mg PO DAILY 07/11/25 07/11/25 07/10/25 History mirtazapine 15 mg disintegrating 15 mg PO HS 07/11/25 07/11/25 Unknown History tablet Allergies Allergy/AdvReac Type Severity Reaction Status Date / Time codeine Allergy Unknown Unknown Verified 06/22/25 18:17 hydroxyzine Allergy Unknown Unknown Verified 06/22/25 18:17 lorazepam Allergy Unknown Unknown Verified 06/22/25 18:17 tramadol Allergy Unknown Unknown Verified 06/22/25 18:17 NSAIDS (Non-Steroidal AdvReac Unknown Nausea Verified 06/22/25 18:17 Anti-Inflamma sumatriptan AdvReac Unknown FELT Verified 06/22/25 18:17 HORRIBLE Review of Systems Review of Systems: All systems reviewed & are unremarkable except as noted in HPI and below PMFSH Past Medical History Medical History (Updated 07/15/25 @ 20:46 by Henny Fox DO) Dilated cardiomyopathy (2006) Combined systolic and diastolic congestive heart failure EF was 20 to 25% in March 2021. Echocardiogram 04/2025: EF 45-50%, basal inferior lateral and mid inferior hypokinesis, mildly increased left ventricular wall thickness, grade 2 diastolic dysfunction, severe mitral valve regurgitation (interestingly enough the patient's echo had a normal ejection fraction 60 65%, no diastolic dysfunction and and only mild mitral valve regurgitation???) Atrophic pancreas Neuropathy Hiatal hernia Chronic anticoagulation Transient ischemic attack (2017) Gastroesophageal reflux disease Chronic kidney disease Depression with anxiety Deep venous thrombosis Left bundle branch block Hyperlipidemia Hypertension Hypothyroidism Bipolar disorder Surgical History Surgical History (Updated 07/15/25 @ 20:45 by Henny Fox DO) History of bilateral knee replacement History of exploratory laparotomy (11/2014) With adhesiolysis Due to small-bowel obstruction. Dr. Grajeda History of colon resection History of bilateral knee arthroplasty History of repair of left rotator cuff History of bladder suspension procedure History of tonsillectomy History of cardiac catheterization (03/26/18) No evidence of coronary artery disease History of partial hysterectomy Family History Family History Father Hypertension Cerebrovascular accident DVT (deep venous thrombosis) Diabetes mellitus Mother Pulmonary fibrosis Diabetes mellitus CHF (congestive heart failure) Dementia Sibling Cardiomyopathy Diabetes mellitus Son Psychiatric disorder Alcoholism Other Family history of gout Social History Social History Social History: Surrogate medical decision maker: Man Linton, sibling. Code status: Full code. Second hand tobacco smoke exposure: No Alcohol intake: never Substance use: never Substance use type: does not use Do You Feel Safe in your Home?: Yes Lack of Transportation: No Lack of Food: Never True Current Housing: I Have Housing Concerned About Future Housing: No Difficulty Paying Gas/Electric Bills: No Difficulty Paying for Meds: No Currently Unemployed: No Education: Decline to Answer Difficulty w/ Childcare or Family Care: No Living arrangements: with roommate(s) Additional living arrangements comments: . Has 1 child. Additional occupation/education comments: Retired from the [employer]. Spiritual care concerns: No Exam Narrative: APPEARANCE: Well appearing, no pain, no distress, well-nourished. HEAD: normocephalic, atraumatic. EYES: PERRLA/EOMI, conjunctivae clear. NOSE: Normal no drainage EARS:TMS clear with good light reflex. THROAT: Pharynx clear, no exudate. NECK: Supple. No adenopathy, no masses. RESPIRATORY: Airway patent, respirations nonlabored. Clear to auscultation bilaterally, no rales, rhonchi, wheezing. CARDIOVASCULAR: Regular rate and rhythm without murmurs rubs or gallops. ABDOMINAL: Soft, nontender, nondistended, normal bowel sounds MUSCULOSKELETAL: Thoracic spine tenderness to palpation NEURO: Alert. Cranial nerves II through XII intact. Good gait. Good coordination SKIN: Warm, dry. Normal Color PSYCHIATRIC: Normal affect/mood. Course Vital Signs Vital signs: Vital Signs Temperature 97.8 F 07/15/25 17:27 Pulse Rate 68 07/15/25 17:27 Respiratory Rate 18 07/15/25 17:27 Blood Pressure 155/72 H 07/15/25 17:27 Pulse Oximetry 96 07/15/25 17:27 Oxygen Delivery Room Air 07/15/25 17:27 Temperature 97.8 F 07/15/25 17:27 Pulse Rate 61 07/15/25 20:55 Respiratory Rate 21 H 07/15/25 20:55 Blood Pressure 108/68 07/15/25 20:55 Pulse Oximetry 95 07/15/25 20:55 Oxygen Delivery Room Air 07/15/25 17:27 Medical Decision Making MDM Narrative Medical decision making narrative: See 29-year-old female present to the emergency department for evaluation after a ground level fall and reporting she is not able to perform her ADLs at home. Patient is currently afebrile with no leukocytosis and hemoglobin 11.9. Patient's INR is 1.5. Patient does have a creatinine of 1.33 which is in a range similar to her baseline. UA was negative for nitrates positive for leukocyte esterase did have high white blood cells but also had occasional epithelial cells and no bacteria was seen. Urine culture was ordered. Patient was negative for influenza RSV and for COVID. Head CT was negative. CT cervical spine was negative and thoracic CT C-spine was negative. Differential Diagnosis Differential Diagnosis: CHF, pneumonia, UTI, subdural hematoma, subarachnoid hemorrhage, cervical spine fracture, thoracic spine fracture Vital Signs Vital Signs: Vital Signs Temperature 97.8 F 07/15/25 17:27 Pulse Rate 68 07/15/25 17:27 Respiratory Rate 18 07/15/25 17:27 Blood Pressure 155/72 H 07/15/25 17:27 Pulse Oximetry 96 07/15/25 17:27 Oxygen Delivery Room Air 07/15/25 17:27 Temperature 97.8 F 07/15/25 17:27 Pulse Rate 61 07/15/25 20:55 Respiratory Rate 21 H 07/15/25 20:55 Blood Pressure 108/68 07/15/25 20:55 Pulse Oximetry 95 07/15/25 20:55 Oxygen Delivery Room Air 07/15/25 17:27 Lab Data Lab results reviewed: Yes I reviewed the patient's lab results. 07/15/25 18:10 07/15/25 18:10 Labs: Lab Results 07/15/25 Range/Units 18:10 WBC 6.5 (4.5-10.0) K/mm3 RBC 3.89 L (4.2-5.4) M/mm3 Hgb 11.9 L (12.0-15.0) g/dL Hct 38.6 (37.0-47.0) % MCV 99.2 (80-100) fl MCH 30.6 (26-34) pg MCHC 30.8 L (32-36) g/dl RDW 14.6 H (11.5-14.5) % Plt Count 206 (150-375) k/mm3 MPV 10.1 (7.4-10.4) fl Immature Gran % (Auto) 0.3 (0-0.5) % Neut % (Auto) 50.6 (45.5-73.1) % Lymph % (Auto) 33.1 (18.3-44.2) % [place] % (Auto) 14.9 H (2.6-8.5) % Eos % (Auto) 0.5 (0-4.4) % Baso % (Auto) 0.6 (0.2-1.2) % Lymph # (Auto) 2.14 (0.9-3.2) K/mm3 [place] # (Auto) 1.0 H (0.1-0.6) K/mm3 Eos # (Auto) 0.0 (0-0.3) K/mm3 Baso # (Auto) 0.0 (0.0-0.1) K/mm3 Abs Immat Gran (auto) 0.02 (0.00-0.031) K/mm3 Absolute Neuts (auto) 3.3 (1.3-6.7) K/mm3 Absolute Nucleated RBC 0.000 (0.0-0.012) K/mm3 Nucleated RBC % 0.0 (0.0-0.2) % PT 17.4 H (11.1-14.7) Seconds INR 1.5 APTT 24.8 (22.3-36.8) Seconds Sodium 135 L (137-145) mmol/L Potassium 4.3 (3.4-5.0) mmol/L Chloride 100 (98-107) mmol/L Carbon Dioxide 25 (22-30) mmol/L Anion Gap 10 (4-12) mmol/L BUN 24 H (7-17) mg/dL Creatinine 1.33 H (0.7-1.0) mg/dL Estim Creat Clear Calc Not Reportable Estimated GFR 38 L (59 - ) Glucose 89 (65-110) mg/dL Calcium 9.2 (8.4-10.2) mg/dL Total Bilirubin 0.4 (0.2-1.3) mg/dL AST 50 H (14-36) U/L ALT 43 H (6-35) U/L Alkaline Phosphatase 58 (38-126) U/L NT-Pro-B Natriuret Pep 696 H (19.9-100) pg/mL Total Protein 8.0 (6.3-8.2) g/dL Albumin 4.3 (3.5-5.1) g/dL Urine Color Yellow (Yellow) Urine Appearance Clear (Clear) Urine pH 5.0 (5.0-9.0) Ur Specific [place] 1.028 (1.001-1.035) Urine Protein 1+ H (Negative) mg/dL Urine Glucose (UA) 3+ H (Negative) mg/dL Urine Ketones Trace H (Negative) mg/dL Ur Blood (Man) Negative (Negative) Urine Nitrate Negative (Negative) Urine Bilirubin Negative (Negative) Urine Urobilinogen 0.2 (<2.0) mg/dL Leukocyte Esterase Rfl 2+ H (Negative) MERVAT/UL Urine RBC 0-2 (0-2) /hpf Urine WBC 51-100 H (0-3) /hpf Ur Squamous Epith Cells Occasional (Few) /hpf Urine Bacteria None seen /hpf Urine Casts 0-2 Influenza A (RT-PCR) Negative (Negative) Influenza B (RT-PCR) Negative (Negative) RSV (RT-PCR) Negative (Negative) SARS-CoV-2 RNA (RT-PCR) Negative (Negative) Imaging Data Attestation: I personally reviewed and interpreted this imaging study as follows: My impression: Chest x-ray: CHF Radiologist's impression: Impressions Chest X-Ray 07/15/25 17:54 Impression: Mild CHF Head CT 07/15/25 18:59 IMPRESSION: No acute intracranial hemorrhage or extra axial fluid collections. Chronic white matter microangiopathic changes and generalized atrophy. All CT scans at this facility are performed using low dose modulation techniques as appropriate to perform exam including the following: automated exposure control; use of iterative reconstruction technique; adjustment of the mA and/or kV according to patient size (this includes techniques or standardized protocols for targeted exams where dose is matched to indication/reason for exam). Cervical Spine CT 07/15/25 19:00 IMPRESSION: No acute fracture or subluxation. Degenerative changes with disc bulging and uncovertebral hypertrophy are noted. All CT scans at this facility are performed using low dose modulation techniques as appropriate to perform exam including the following: automated exposure control; adjustment of the mA and/or kV according to patient size (this includes techniques or standardized protocols for targeted exams where does is matched to indication/reason for exam; i.e. extremities or head); use of iterative reconstruction technique). Thoracic Spine CT 07/15/25 19:03 IMPRESSION: No acute fracture or subluxation. All CT scans at this facility are performed using low dose modulation techniques as appropriate to perform exam including the following: automated exposure control; use of iterative reconstruction technique; adjustment of the mA and/or kV according to patient size (this includes techniques or standardized protocols for targeted exams where dose is matched to indication/reason for exam). Discharge Plan Discharge Patient Disposition: Still a Patient
[2025-07-15 18:17] LABS: Hematocrit 38.6 % (37.0-47.0); Hemoglobin 11.9 g/dL (12.0-15.0); Immature Granulocyte Percent A 0.3 % (0-0.5); Lymphocytes Absolute Auto 2.14 K/mm3 (0.9-3.2); Mean Corpuscular HGB Conc 30.8 g/dl (32-36); Mean Corpuscular Hemoglobin 30.6 pg (26-34); Mean Corpuscular Volume 99.2 fl (80-100); Nucleated Red Blood Cells Absolute Auto 0.000 K/mm3 (0.0-0.012); Nucleated Red Blood Cells Perc 0.0 % (0.0-0.2); Platelet Count Result 206 k/mm3 (150-375); Red Blood Count 3.89 M/mm3 (4.2-5.4); White Blood Count 6.5 K/mm3 (4.5-10.0)
[2025-07-15 18:25] VITALS: BP 151/73; PULSE 63; RESP 20; O2SAT 96
[2025-07-15 18:28] LABS: INR 1.5; Prothrombin Time 17.4 Seconds (11.1-14.7)
[2025-07-15 18:29] LABS: Partial Thromboplastin Time 24.8 Seconds (22.3-36.8)
[2025-07-15 18:40] LABS: Add Urine Microscopic? YES; Appearance Urine Clear (Clear); Glucose Urine UA 3+ mg/dL (Negative); Leukocyte Esterase Ur 2+ LEU/UL (Negative); Nitrate Urine Negative (Negative); Non Pathogenic Casts 0-2; Specific Grav Ur 1.028 (1.001-1.035)
--- NOTE | 2025-07-15 18:43 | PC.NURSE ---
pt in CT
[2025-07-15 18:56] LABS: Influenza A QL RT-PCR Negative (Negative); Influenza B QL RT-PCR Negative (Negative); RSV RNA, RT-PCR Negative (Negative); SARS-CoV-2 RNA PCR Negative (Negative)
[2025-07-15 19:10] LABS: Alanine Aminotransferase 43 U/L (6-35); Albumin Level 4.3 g/dL (3.5-5.1); Alkaline Phosphatase 58 U/L (38-126); Anion Gap 10 mmol/L (4-12); Aspartate Amino Transferase 50 U/L (14-36); Bilirubin,Total 0.4 mg/dL (0.2-1.3); Blood Urea Nitrogen 24 mg/dL (7-17); Calcium 9.2 mg/dL (8.4-10.2); Carbon Dioxide 25 mmol/L (22-30); Chloride 100 mmol/L (98-107); Estimated Glomerular Filt Rate 38; Glucose 89 mg/dL (65-110); Potassium 4.3 mmol/L (3.4-5.0); Sodium 135 mmol/L (137-145); Total Protein 8.0 g/dL (6.3-8.2)
[2025-07-15 19:18] LABS: NT Pro B Type Natriuretic Pept 696 pg/mL (19.9-100)
[2025-07-15] MEDS: ACETAMINOPHEN 500 MG TABLET 1000 MG PO (19:24)
--- NOTE | 2025-07-15 20:01 | PM.IMHP ---
H&P: HPI History of Present Illness Date/Time: 07/15/25 23:40 Chief Complaint: Weakness, fall Narrative: 79-year-old female with a past medical history mild dementia, systolic congestive heart failure, nonischemic cardiomyopathy status post ICD, DVT, chronic kidney disease, hypothyroidism, GERD and recent hospitalization for CHF and UTI who was just discharged from the hospital on the 7th who returned to the ER from home due to persistent weakness. The patient reports that she is so weak that she is having trouble getting dressed. She did not feel strong enough to make anything to eat and. She has not had anything to eat today. She denies any nausea or vomiting. She denies chest pain or any change in her shortness of breath since discharge. She has been taking her medications. She had been evaluated during her last hospitalization room by she PT and OT who recommended patient continue her home rehab services. The patient does not feel comfortable being at home as she feels like she cannot take care of herself. She called care coordination today who recommended she come back into the ER for evaluation. The patient's labs and imaging were stable head. Patient did not have any hypoxia and her vitals were stable. Subsequently the patient was admitted to the hospital for the she evaluation of placement in a rehab facility. The patient reports that she lives with a friend. Review of Systems Review of Systems: Review of systems limited as patient stated she was tired and wanted to be left alone to sleep she. Majority of information was obtained from review medical records and ER physician report. The patient does report that she was post a have cataract surgery performed in May but she has not rescheduled it. [facility] Past Medical History Medical History Dilated cardiomyopathy (2006) Combined systolic and diastolic congestive heart failure EF was 20 to 25% in March 2021. Echocardiogram 04/2025: EF 45-50%, basal inferior lateral and mid inferior hypokinesis, mildly increased left ventricular wall thickness, grade 2 diastolic dysfunction, severe mitral valve regurgitation (interestingly enough the patient's echo had a normal ejection fraction 60 65%, no diastolic dysfunction and and only mild mitral valve regurgitation???) Atrophic pancreas Neuropathy Hiatal hernia Chronic anticoagulation Transient ischemic attack (2017) Gastroesophageal reflux disease Chronic kidney disease Depression with anxiety Deep venous thrombosis Left bundle branch block Hyperlipidemia Hypertension Hypothyroidism Bipolar disorder Surgical History Surgical History History of bilateral knee replacement History of exploratory laparotomy (11/2014) With adhesiolysis Due to small-bowel obstruction. Dr. Grajeda History of colon resection History of bilateral knee arthroplasty History of repair of left rotator cuff History of bladder suspension procedure History of tonsillectomy History of cardiac catheterization (03/26/18) No evidence of coronary artery disease History of partial hysterectomy Family History Family History Father Hypertension Cerebrovascular accident DVT (deep venous thrombosis) Diabetes mellitus Mother Pulmonary fibrosis Diabetes mellitus CHF (congestive heart failure) Dementia Sibling Cardiomyopathy Diabetes mellitus Son Psychiatric disorder Alcoholism Other Family history of gout Social History Social History Social History: Surrogate medical decision maker: Man Linton, bill. Code status: Full code. Smoking status: Never smoker Second hand tobacco smoke exposure: No Alcohol intake: never Substance use: never Substance use type: does not use Do You Feel Safe in your Home?: Yes Lack of Transportation: No Lack of Food: Never True Current Housing: I Have Housing Concerned About Future Housing: No Difficulty Paying Gas/Electric Bills: No Difficulty Paying for Meds: No Currently Unemployed: No Education: High School Diploma/GED Difficulty w/ Childcare or Family Care: No Living arrangements: with roommate(s) Additional living arrangements comments: . Has 1 child. Additional occupation/education comments: Retired from the [employer]. Spiritual care concerns: No Meds Home Medications and Allergies Home Medications ?Medication ?Instructions ?Recorded ?Confirmed ?Type trazodone 150 mg tablet 150 mg PO HS 03/22/21 07/15/25 History venlafaxine 37.5 mg 37.5 mg PO DAILY 08/22/22 07/15/25 History capsule,extended release 24 hr (Effexor XR) rosuvastatin 40 mg tablet 40 mg PO DAILY 12/27/23 07/15/25 History amiodarone 200 mg tablet 200 mg PO DAILY 01/02/24 07/15/25 History clonazepam 0.5 mg tablet 0.5 mg PO TID 01/02/24 07/15/25 History levothyroxine 150 mcg tablet 150 mcg PO DAILY 01/02/24 07/15/25 History carvedilol 12.5 mg tablet 25 mg PO DAILY 12/24/24 07/15/25 History cyanocobalamin (vitamin B-12) 1,000 mcg subcut MONTHLY 03/25/25 07/15/25 History 1,000 mcg/mL injection solution donepezil 10 mg tablet 10 mg PO HS 03/25/25 07/15/25 History spironolactone 25 mg tablet 25 mg PO DAILY 03/25/25 07/15/25 History acetaminophen 650 mg 650 mg PO Q8H PRN pain 05/20/25 07/15/25 History tablet,extended release (8 Hour Pain Reliever) hydralazine 10 mg tablet 10 mg PO BID #60 tabs 05/30/25 07/15/25 Rx loratadine 10 mg tablet 10 mg PO QAM #30 tabs 05/30/25 07/15/25 Rx metoclopramide HCl 5 mg tablet 5 mg PO ACHS #120 tabs 05/30/25 07/15/25 Rx ondansetron 4 mg disintegrating 8 mg (2 x 4 mg) PO Q12H PRN nausea 05/30/25 07/15/25 Rx tablet and vomiting #30 tabs losartan 50 mg tablet 50 mg PO DAILY 07/11/25 07/15/25 History mirtazapine 15 mg disintegrating 15 mg PO HS 07/11/25 07/15/25 History tablet amoxicillin 875 mg-potassium 1 tablet PO Q12H #6 tabs 07/14/25 07/15/25 Rx clavulanate 125 mg tablet empagliflozin 10 mg tablet 10 mg PO DAILY #30 tabs 07/14/25 07/15/25 Rx (Jardiance) furosemide 20 mg tablet (Lasix) 10 mg (1/2 x 20 mg) PO DAILY #30 07/14/25 07/15/25 Rx tabs warfarin 2 mg tablet 2 mg PO DAILY@1700 #30 tabs 07/14/25 07/15/25 Rx Allergies Allergy/AdvReac Type Severity Reaction Status Date / Time codeine Allergy Unknown Unknown Verified 07/15/25 22:33 hydroxyzine Allergy Unknown Unknown Verified 07/15/25 22:33 lorazepam Allergy Unknown Unknown Verified 07/15/25 22:33 tramadol Allergy Unknown Unknown Verified 07/15/25 22:33 NSAIDS (Non-Steroidal AdvReac Unknown Nausea Verified 07/15/25 22:33 Anti-Inflamma sumatriptan AdvReac Unknown FELT Verified 07/15/25 22:33 HORRIBLE Vital Signs Vital Signs - 24 hr 07/15/25 17:27 07/15/25 18:25 Temperature 97.8 F Pulse Rate 68 63 Respiratory Rate 18 20 Blood Pressure 155/72 H 151/73 H Pulse Oximetry 96 96 Oxygen Delivery Room Air Exam Narrative: Weight 65.5 kg BMI 24 Const: Other: No acute distress, well-developed well-nourished, appears stated age HENMT: Other: Mucous membranes are moist, no oral pharyngeal erythema, edentulous in upper jaw, several remaining teeth in the anterior lower jaw that appear to be in fair condition Eyes: Other: Bilateral cataracts noted, no scleral icterus Neck: Other: No JVD, no lymphadenopathy Chest: Other: Pacemaker defibrillator in the left upper chest Resp: Other: Clear to auscultation bilaterally, no increased work of breathing Cardio: Other: Regular rate, regular rhythm 2+ bilateral radial pedal pulses, no JVD, positive murmur Skin: Other: Generalized pallor, non jaundice Neuro: Other: Alert oriented times 4, speech is clear, no facial asymmetry, moves all extremities equally Extrem: Other: No clubbing, cyanosis or edema, equal feed blender strength bilaterally Psych: Other: Appropriate mood and affect, pleasant and cooperative H&P: Results Labs Labs: Laboratory Tests 07/15/25 18:10 07/15/25 18:10 07/15/25 18:10 WBC 6.5 RBC 3.89 L Hgb 11.9 L Hct 38.6 MCV 99.2 MCH 30.6 MCHC 30.8 L RDW 14.6 H Plt Count 206 MPV 10.1 Immature Gran % (Auto) 0.3 Neut % (Auto) 50.6 Lymph % (Auto) 33.1 [place] % (Auto) 14.9 H Eos % (Auto) 0.5 Baso % (Auto) 0.6 Lymph # (Auto) 2.14 [place] # (Auto) 1.0 H Eos # (Auto) 0.0 Baso # (Auto) 0.0 Abs Immat Gran (auto) 0.02 Absolute Neuts (auto) 3.3 Absolute Nucleated RBC 0.000 Nucleated RBC % 0.0 PT 17.4 H INR 1.5 APTT 24.8 Sodium 135 L Potassium 4.3 Chloride 100 Carbon Dioxide 25 Anion Gap 10 BUN 24 H Creatinine 1.33 H Estim Creat Clear Calc Not Reportable Estimated GFR 38 L Glucose 89 Calcium 9.2 Total Bilirubin 0.4 AST 50 H ALT 43 H Alkaline Phosphatase 58 NT-Pro-B Natriuret Pep 696 H Total Protein 8.0 Albumin 4.3 Urine Color Yellow Urine Appearance Clear Urine pH 5.0 Ur Specific [place] 1.028 Urine Protein 1+ H Urine Glucose (UA) 3+ H Urine Ketones Trace H Ur Blood (Man) Negative Urine Nitrate Negative Urine Bilirubin Negative Urine Urobilinogen 0.2 Leukocyte Esterase Rfl 2+ H Urine RBC 0-2 Urine WBC 51-100 H Ur Squamous Epith Cells Occasional Urine Bacteria None seen Urine Casts 0-2 Influenza A (RT-PCR) Negative Influenza B (RT-PCR) Negative RSV (RT-PCR) Negative SARS-CoV-2 RNA (RT-PCR) Negative Impressions Chest X-Ray 07/15/25 17:54 Impression: Mild CHF Head CT 07/15/25 18:59 IMPRESSION: No acute intracranial hemorrhage or extra axial fluid collections. Chronic white matter microangiopathic changes and generalized atrophy. Cervical Spine CT 07/15/25 19:00 IMPRESSION: No acute fracture or subluxation. Degenerative changes with disc bulging and uncovertebral hypertrophy are noted. Thoracic Spine CT 07/15/25 19:03 IMPRESSION: No acute fracture or subluxation. Assessment and Plan Assessment and plan (1) Weakness: Code(s): R53.1 - Weakness Status: Acute (2) Ground-level fall: Code(s): W18.30XA - Fall on same level, unspecified, initial encounter Status: Acute (3) Chronic anticoagulation: Code(s): Z79.01 - [facility] (current) use of anticoagulants Status: Acute Plan Patient presents for weakness and ground level fall without injury. The patient had been evaluated by PT and OT during prior hospitalization and was discharged home on 07/14/2025. She is having difficulty dressing herself due to weakness and feels like she can not take care of herself. She is requesting rehab placement. She was directed to come back to hospital care coordination. Will place consult for PT OT evaluation and care coordination. The patient has chronic heart failure due to nonischemic cardiomyopathy with recent treatment for exacerbation but is currently clinically stable. Will resume home cardiac medications and diuretics. The patient does have a subtherapeutic INR will increase dose of Coumadin to 2.5 mg p.o. daily. Patient has been admitted as observation status. MEDICAL DECISION MAKING NARRATIVE -Spoke with the ED provider in detail regarding patient's evaluation, workup and management -Patient seen and examined at bedside -Collaborated with patient's nurse at the bedside in detail and addressed all concerns -Labs, electrolytes, radiology, investigations and test results personally reviewed and interpreted unless otherwise specified -ED/Consult/Nursing/Ancilliary notes on the chart reviewed and appreciated -Spoke with patient at bedside and diagnosis and plan of care was discussed. All questions answered. Quality VTE Prophylaxis VTE prophylaxis: pharmacologic ordered (Coumadin) Hospitalist MIPS Advance Care Plan I have confirmed that the patient's Advanced Care Plan is present, code status is documented, or surrogate decision maker is listed in patient medical record.: Yes Medication Reconciliation I have utilized all available resources to obtain, update and review the patients current medications (includes all prescriptions, OTC, herbals, cannabis, and nutritional supplements).: Yes
[2025-07-15 20:55] VITALS: BP 108/68; PULSE 61; RESP 21; O2SAT 95
[2025-07-15 20:59] VITALS: BP 108/68; PULSE 60; RESP 20; O2SAT 95
[2025-07-15 21:00] VITALS: BP 103/50; PULSE 60; RESP 15; O2SAT 96
--- NOTE | 2025-07-15 22:09 | WPCEDHO ---
ED Hand Off Checklist All vitals saved: Yes IV Site documented: Yes All med administrations documented: Yes Triage Note Triage Note Pt arrives to the ED c/o weakness 07/15/25 17:27 and a fall. Pt was d/c from [place] yesterday for CHF. Since she has been home, she has felt weak. Pt fell today onto her bottom in her home. Pt did not lose consciousness and denies hitting her head. Pt reports that she has not had anything to eat today. PT feels like she is too weak since d/c and is wanting to go to rehab. She does not feel comfortable being at home. Pt spoke to care coordination today and they told her to come in. Allergies codeine Allergy (Unknown, Verified 06/22/25 18:17) Unknown makes head buzz hydroxyzine Allergy (Unknown, Verified 06/22/25 18:17) Unknown lorazepam Allergy (Unknown, Verified 06/22/25 18:17) Unknown emotional tramadol Allergy (Unknown, Verified 06/22/25 18:17) Unknown NSAIDS (Non-Steroidal Anti-Inflamma Adverse Reaction (Unknown, Verified 06/22/25 18:17) Nausea sumatriptan Adverse Reaction (Unknown, Verified 06/22/25 18:17) FELT HORRIBLE PER UNCODED ALLERGIES Family History (Last Reviewed 07/15/25 @ 20:45 by Henny Fox DO) Father Hypertension Cerebrovascular accident DVT (deep venous thrombosis) Diabetes mellitus Mother Pulmonary fibrosis Diabetes mellitus CHF (congestive heart failure) Dementia Sibling Cardiomyopathy Diabetes mellitus Son Psychiatric disorder Alcoholism Other Family history of gout Administered/Completed Medications Discontinued Medications Acetaminophen (Acetaminophen 500 Mg Tablet) 1,000 mg PO ONCE STA Stop: 07/15/25 18:02 Last Admin: 07/15/25 19:24 Dose: 1,000 mg Documented By: JENNIFER Notes 07/15/25 18:43 Nurse Note by Cynthia López pt in CT Initialized on 07/15/25 18:43 - END OF NOTE Interventions/Assessments IV / Saline Lock, Insert Start: 07/15/25 17:19 Freq: Status: Active Protocol: Document 07/15/25 18:24 KJT (Rec: 07/15/25 18:25 KJT [id number]) IV Assessment Peripheral Access Left Forearm IV Catheter Access Initiated IV Insertion Date 07/15/25 IV Insertion Time 18:25 Catheter Gauge 22 IV Insertion 1 Attempts Ultrasound Used for No Placement IV Care and WNL Maintenance Additional IV diffusics Comments PA: Cardiovascular Assessment Start: 07/15/25 17:19 Freq: Status: Active Protocol: Document 07/15/25 17:27 JENNIFER (Rec: 07/15/25 17:34 JENNIFER [id number]) Cardiovascular Assessment Cardiovascular Dizziness,Lightheadedness Symptoms Skin Description Dry Heart Sounds Normal Jugular Vein None Distention PA: Neurological Assessment Start: 07/15/25 17:19 Freq: Status: Active Protocol: Document 07/15/25 17:27 JENNIFER (Rec: 07/15/25 17:34 JENNIFER [id number]) Andrés Coma Scale Eyes Open Verbal Oriented and Alert Motor Follows Commands [place] Coma Total 15 Score Neurological Assessment Level of Alert,Awake Consciousness Arousable to Verbal Orientation Oriented to Person,Oriented to Place,Oriented to Time Neurological Dizziness,Weakness, General Symptoms Hallucination Type None Unable to Redirect No Behavior Behavior Cooperative Patient Able to Comprehend Comprehension Memory Description Intact Ability to Maintain Normal Balance Neurological Reflexes Corneal Reflex Present Bilateral Response Last Vital Signs Temperature 97.8 F 07/15/25 17:27 Pulse Rate 61 07/15/25 20:55 Respiratory Rate 21 H 07/15/25 20:55 Pulse Oximetry 95 07/15/25 20:55 Blood Pressure 108/68 07/15/25 20:55 Blood Pressure Mean 81 07/15/25 20:55 Blood Pressure Position Supine 07/15/25 20:55 Oxygen Delivery Room Air 07/15/25 17:27 Last Result - Abnormals Only RBC 3.89 M/mm3 (4.2-5.4) L 07/15/25 18:10 Hgb 11.9 g/dL (12.0-15.0) L 07/15/25 18:10 MCHC 30.8 g/dl (32-36) L 07/15/25 18:10 RDW 14.6 % (11.5-14.5) H 07/15/25 18:10 [place] % (Auto) 14.9 % (2.6-8.5) H 07/15/25 18:10 [place] # (Auto) 1.0 K/mm3 (0.1-0.6) H 07/15/25 18:10 PT 17.4 Seconds (11.1-14.7) H 07/15/25 18:10 Sodium 135 mmol/L (137-145) L 07/15/25 18:10 BUN 24 mg/dL (7-17) H 07/15/25 18:10 Creatinine 1.33 mg/dL (0.7-1.0) H 07/15/25 18:10 Estimated GFR 38 (59-) L 07/15/25 18:10 AST 50 U/L (14-36) H 07/15/25 18:10 ALT 43 U/L (6-35) H 07/15/25 18:10 NT-Pro-B Natriuret Pep 696 pg/mL (19.9-100) H 07/15/25 18:10 Urine Protein 1+ mg/dL (Negative) H 07/15/25 18:10 Urine Glucose (UA) 3+ mg/dL (Negative) H 07/15/25 18:10 Urine Ketones Trace mg/dL (Negative) H 07/15/25 18:10 Leukocyte Esterase Rfl 2+ MERVAT/UL (Negative) H 07/15/25 18:10 Urine WBC 51-100 /hpf (0-3) H 07/15/25 18:10 Most Recent Suicide Severity Rating Suicide Severity Rating NO RISK INDICATED 07/15/25 17:27
[2025-07-15 22:23] VITALS: BMI 24.0
--- NOTE | 2025-07-15 22:30 | ADMGEN ---
This patient, Yi Martino, was admitted to Medical Room 257-01. Patient/family oriented to hospital policies and general routines including ID bracelet, bed and alarms, visiting hours, pain management, procedures, bathroom and other care routines, personal items, smoking policy, room service/diet, and visiting hours. Information on how to activate the Rapid Response Team has been discussed. Patient/Family are encouraged to report perceived risks to care and to ask questions if they do not understand what they are told or what they should do.
[2025-07-15 22:34] VITALS: BP 114/49; PULSE 60; RESP 16; TEMP 36.1; O2SAT 94
[2025-07-16] VITALS (8 sets, daily range): BP systolic 105–127; BP diastolic 38–53; PULSE 58–106; RESP 12–20; TEMP 36.2–36.8; O2SAT 91–96; BMI 24.0
[2025-07-16] MEDS: DONEPEZIL HCL 10 MG TABLET PO ×2 (02:06→20:23)
[2025-07-16] MEDS: METOCLOPRAMIDE HCL 5 MG TABLET PO ×4 (05:36→20:23)
[2025-07-16] MEDS: LEVOTHYROXINE SODIUM 150 MCG TABLET PO (05:36)
--- NOTE | 2025-07-16 07:14 | P.PNIM_ITS ---
Progress Note: A&P Assessment and Plan (1) Adult failure to thrive: Code(s): R62.7 - Adult failure to thrive Status: Acute Assessment and Plan: - reports inability to care for self and generalized weakness. Multiple recent hospitalizations. - PT/OT, dietitian, care coordination consulted. (2) Ground-level fall: Code(s): W18.30XA - Fall on same level, unspecified, initial encounter Status: Acute Assessment and Plan: - mechanical fall due to generalized weakness - CXR, CT head, CT c-spine, CT T-spine with no acute process - PT/OT (3) Stage 3b chronic kidney disease: Code(s): N18.32 - Chronic kidney disease, stage 3b Status: Acute Assessment and Plan: -Cr 1.33, baseline 1.1. -monitor volume status on diuretics. - avoid nephrotoxins (4) Hypertension: Qualifiers: Hypertension type: primary hypertension Qualified Code(s): I10 - Essential (primary) hypertension Code(s): I10 - Essential (primary) hypertension Status: Chronic Assessment and Plan: - BP 118/53, trend on low side - continue home carvedilol, losartan, spironolactone - hold hydralazine - monitor BP (5) Abnormal finding on urinalysis: Code(s): R82.90 - Unspecified abnormal findings in urine Status: Acute Assessment and Plan: - UA with 2+ LE, 51-100 WBC - urine culture 07/12 with gram-negative bacilli - denies current urinary symptoms - currently on course of Augmentin from previous hospitalization - follow-up cultures (6) Hypothyroidism: Qualifiers: Hypothyroidism type: acquired Qualified Code(s): E03.9 - Hypothyroidism, unspecified Code(s): E03.9 - Hypothyroidism, unspecified Status: Chronic Assessment and Plan: - continue levothyroxine (7) History of DVT (deep vein thrombosis): Code(s): Z86.718 - Personal history of other venous thrombosis and embolism Status: Chronic Assessment and Plan: - on coumadin 2 mg daily - INR 1.5 on admission, Coumadin increased to 2.5 mg daily - daily PT/INR (8) Hyperlipidemia: Code(s): E78.5 - Hyperlipidemia, unspecified Status: Chronic Assessment and Plan: - continue statin (9) CHF (congestive heart failure): Qualifiers: Heart failure chronicity: acute on chronic Heart failure type: combined systolic and diastolic Qualified Code(s): I50.43 - Acute on chronic combined systolic (congestive) and diastolic (congestive) heart failure Code(s): I50.9 - Heart failure, unspecified Status: Acute Assessment and Plan: - History of cardiomyopathy, previous EF 45% 03/2025 - echo with EF 60%, mild LVH - appears euvolemic - continue home Coreg, losartan, Jardiance, Aldactone, Lasix - monitor volume status (10) History of CVA (cerebrovascular accident): Code(s): Z86.73 - Personal history of transient ischemic attack (TIA), and cerebral infarction without residual deficits Status: Acute Assessment and Plan: - continue Coumadin, statin (11) History of ventricular tachycardia: Code(s): Z86.79 - Personal history of other diseases of the circulatory system Status: Acute Assessment and Plan: - s/p ICD -continue home amiodarone Plan DVT prophylaxis: Coumadin Code status: full code Dispo: TBD, may need SNF placement Subjective Date/time seen: 07/16/25 07:14 Interval history: Patient seen and examined at bedside. Denies acute complaints, feeling better this AM. Denied chest pain, shortness a breath, nausea, vomiting, diarrhea, urinary symptoms. States she is still feeling weak from previous h ospitalizations. She is open to rehab. Review of Systems Review of Systems: All systems reviewed & are unremarkable except as noted in HPI and below Exam Narrative: General: NAD, appears deconditioned Eyes: EOMI ENT: neck supple Cardiovascular: Regular rate and rhythm Respiratory: Clear to auscultation, respirations even and unlabored on RA Gastrointestinal: Soft, non tender Genitourinary: no suprapubic tenderness Musculoskeletal: No edema Skin: warm, dry Neuro: Alert. Psych: Mood appropriate Objective Data Vital Signs Vital Signs: Vital Signs - 24 hr 07/15/25 17:27 07/15/25 18:25 07/15/25 20:55 Temperature 97.8 F Pulse Rate 68 63 61 Respiratory Rate 18 20 21 H Blood Pressure 155/72 H 151/73 H 108/68 Pulse Oximetry 96 96 95 Oxygen Delivery Room Air 07/15/25 20:59 07/15/25 21:00 07/15/25 22:34 Temperature 97.0 F L Pulse Rate 60 60 60 Respiratory Rate 20 15 16 Blood Pressure 108/68 103/50 L 114/49 L Pulse Oximetry 95 96 94 Oxygen Delivery 07/16/25 05:22 Temperature 97.2 F L Pulse Rate 59 L Respiratory Rate 16 Blood Pressure 118/53 L Pulse Oximetry 91 Oxygen Delivery Intake/Output Intake/Output: Intake & Output 07/13/25 07/14/25 07/15/25 07/16/25 23:59 23:59 23:59 23:59 Output Total 100 250 Balance -100 -250 Meds/Results Medications: Active Medications Generic Name Dose Route Start Last Admin Trade Name Frejennifer PRN Reason Stop Dose Admin Acetaminophen 650 mg 07/16/25 01:46 Acetaminophen 325 Mg Tablet PO Q8H PRN pain 1-3 or fever Amiodarone HCl 200 mg 07/16/25 08:00 Amiodarone Hcl 200 Mg Tablet PO DAILY@0800 STAN Amoxicillin/Clavulanate Potassium 1 tablet 07/16/25 09:00 Amoxicillin/Clavulanate K 875-125 Mg Tab PO 07/17/25 09:01 Q12HR STAN Carvedilol 12.5 mg 07/16/25 09:00 Carvedilol 12.5 Mg Tablet PO Q12HR STAN Clonazepam 0.5 mg 07/16/25 09:00 Clonazepam (*Crx) 0.5 Mg Tablet PO TID STAN Donepezil HCl 10 mg 07/16/25 02:00 07/16/25 02:06 Donepezil Hcl 10 Mg Tablet PO 10 mg HS STAN Administration Empagliflozin 10 mg 07/16/25 09:00 Empagliflozin 10 Mg Tablet PO DAILY STAN Furosemide 10 mg 07/16/25 09:00 Furosemide 10 Mg Tablet PO DAILY STAN Hydralazine HCl 10 mg 07/16/25 08:00 Hydralazine 10 Mg Tablet PO BIDWM STAN Levothyroxine Sodium 150 mcg 07/16/25 06:30 07/16/25 05:36 Levothyroxine Sodium 150 Mcg Tablet PO 150 mcg DAILY@0630 STAN Administration Loratadine 10 mg 07/16/25 09:00 Loratadine 10 Mg Tablet PO QAM STAN Losartan Potassium 50 mg 07/16/25 09:00 Losartan Potassium 50 Mg Tablet PO DAILY STAN Metoclopramide HCl 5 mg 07/16/25 06:30 07/16/25 05:36 Metoclopramide Hcl 5 Mg Tablet PO 5 mg ACHS STAN Administration Mirtazapine 15 mg 07/16/25 21:00 Mirtazapine Soltab 15 Mg Tab.Disper PO HS STAN Rosuvastatin Calcium 40 mg 07/16/25 09:00 Rosuvastatin 20 Mg Tablet PO DAILY STAN Spironolactone 25 mg 07/16/25 09:00 Spironolactone 25 Mg Tablet PO DAILY STAN Trazodone HCl 150 mg 07/16/25 02:05 07/16/25 02:06 Trazodone Hcl 50 Mg Tablet PO 150 mg HS STAN Administration Venlafaxine HCl 37.5 mg 07/16/25 09:00 Venlafaxine Hcl Xr 37.5 Mg Cap PO DAILY [facility] Warfarin Sodium 2.5 mg 07/16/25 17:00 Warfarin (*Pbkc) 2.5 Mg Tablet PO DAILY@1700 [facility] Radiology Results: ITS Impressions Chest X-Ray 07/15/25 17:54 Impression: Mild CHF Head CT 07/15/25 18:59 IMPRESSION: No acute intracranial hemorrhage or extra axial fluid collections. Chronic white matter microangiopathic changes and generalized atrophy. All CT scans at this facility are performed using low dose modulation techniques as appropriate to perform exam including the following: automated exposure control; use of iterative reconstruction technique; adjustment of the mA and/or kV according to patient size (this includes techniques or standardized protocols for targeted exams where dose is matched to indication/reason for exam). Cervical Spine CT 07/15/25 19:00 IMPRESSION: No acute fracture or subluxation. Degenerative changes with disc bulging and uncovertebral hypertrophy are noted. All CT scans at this facility are performed using low dose modulation shirin hniques as appropriate to perform exam including the following: automated exposure control; adjustment of the mA and/or kV according to patient size (this includes techniques or standardized protocols for targeted exams where does is matched to indication/reason for exam; i.e. extremities or head); use of iterative reconstruction technique). Thoracic Spine CT 07/15/25 19:03 IMPRESSION: No acute fracture or subluxation. All CT scans at this facility are performed using low dose modulation techniques as appropriate to perform exam including the following: automated exposure control; use of iterative reconstruction technique; adjustment of the mA and/or kV according to patient size (this includes techniques or standardized protocols for targeted exams where dose is matched to indication/reason for exam). Labs Labs: Laboratory Results - last 24 hr 07/15/25 18:10 WBC 6.5 RBC 3.89 L Hgb 11.9 L Hct 38.6 MCV 99.2 MCH 30.6 MCHC 30.8 L RDW 14.6 H Plt Count 206 MPV 10.1 Immature Gran % (Auto) 0.3 Neut % (Auto) 50.6 Lymph % (Auto) 33.1 [place] % (Auto) 14.9 H Eos % (Auto) 0.5 Baso % (Auto) 0.6 Lymph # (Auto) 2.14 [place] # (Auto) 1.0 H Eos # (Auto) 0.0 Baso # (Auto) 0.0 Abs Immat Gran (auto) 0.02 Absolute Neuts (auto) 3.3 Absolute Nucleated RBC 0.000 Nucleated RBC % 0.0 PT 17.4 H INR 1.5 APTT 24.8 Sodium 135 L Potassium 4.3 Chloride 100 Carbon Dioxide 25 Anion Gap 10 BUN 24 H Creatinine 1.33 H Estim Creat Clear Calc Not Reportable Estimated GFR 38 L Glucose 89 Calcium 9.2 Total Bilirubin 0.4 AST 50 H ALT 43 H Alkaline Phosphatase 58 NT-Pro-B Natriuret Pep 696 H Total Protein 8.0 Albumin 4.3 Urine Color Yellow Urine Appearance Clear Urine pH 5.0 Ur Specific Bath 1.028 Urine Protein 1+ H Urine Glucose (UA) 3+ H Urine Ketones Trace H Ur Blood (Man) Negative Urine Nitrate Negative Urine Bilirubin Negative Urine Urobilinogen 0.2 Leukocyte Esterase Rfl 2+ H Urine RBC 0-2 Urine WBC 51-100 H Ur Squamous Epith Cells Occasional Urine Bacteria None seen Urine Casts 0-2 Influenza A (RT-PCR) Negative Influenza B (RT-PCR) Negative RSV (RT-PCR) Negative SARS-CoV-2 RNA (RT-PCR) Negative Quality VTE Prophylaxis VTE prophylaxis: mechanical ordered
[2025-07-16] MEDS: AMIODARONE HCL 200 MG TABLET PO (08:53)
[2025-07-16] MEDS: ROSUVASTATIN 20 MG TABLET 40 MG PO (08:54)
[2025-07-16] MEDS: SPIRONOLACTONE 25 MG TABLET PO (08:54)
[2025-07-16] MEDS: LORATADINE 10 MG TABLET PO (08:54)
[2025-07-16] MEDS: EMPAGLIFLOZIN 10 MG TABLET PO (08:54)
[2025-07-16] MEDS: LOSARTAN POTASSIUM 50 MG TABLET PO (08:54)
[2025-07-16] MEDS: clonazePAM (*CRX) 0.5 MG TABLET PO ×3 (08:54→17:12)
[2025-07-16] MEDS: FUROSEMIDE 10 MG TABLET PO (08:54)
[2025-07-16] MEDS: VENLAFAXINE HCL XR 37.5 MG CAP PO (08:54)
[2025-07-16] MEDS: ACETAMINOPHEN 325 MG TABLET 650 MG PO ×2 (10:08→15:55)
[2025-07-16] MEDS: WARFARIN (*PBKC) 2.5 MG TABLET PO (17:12)
[2025-07-16] MEDS: MIRTAZAPINE SOLTAB 15 MG TAB.DISPER PO (20:23)
[2025-07-17 04:22] LABS: Hematocrit 36.1 % (37.0-47.0); Hemoglobin 10.7 g/dL (12.0-15.0); Immature Granulocyte Percent A 0.2 % (0-0.5); Lymphocytes Absolute Auto 1.86 K/mm3 (0.9-3.2); Mean Corpuscular HGB Conc 29.6 g/dl (32-36); Mean Corpuscular Hemoglobin 30.0 pg (26-34); Mean Corpuscular Volume 101.1 fl (80-100); Nucleated Red Blood Cells Absolute Auto 0.000 K/mm3 (0.0-0.012); Nucleated Red Blood Cells Perc 0.0 % (0.0-0.2); Platelet Count Result 185 k/mm3 (150-375); Red Blood Count 3.57 M/mm3 (4.2-5.4); White Blood Count 5.1 K/mm3 (4.5-10.0)
[2025-07-17 04:32] LABS: Anion Gap 5 mmol/L (4-12); Blood Urea Nitrogen 21 mg/dL (7-17); Calcium 8.9 mg/dL (8.4-10.2); Carbon Dioxide 28 mmol/L (22-30); Chloride 104 mmol/L (98-107); Estimated CRCL calculation 27 ml/min; Estimated Glomerular Filt Rate 38; Glucose 83 mg/dL (65-110); Potassium 3.7 mmol/L (3.4-5.0); Sodium 137 mmol/L (137-145)
[2025-07-17 04:35] LABS: INR 1.4; Prothrombin Time 17.3 Seconds (11.1-14.7)
[2025-07-17 05:06] LABS: Ovalocytes 1+
[2025-07-17 05:07] LABS: Schistocytes None Seen
[2025-07-17 05:12] VITALS: BP 128/57; PULSE 60; RESP 12; TEMP 36.4; O2SAT 94
[2025-07-17] MEDS: METOCLOPRAMIDE HCL 5 MG TABLET PO ×2 (06:15→11:55)
[2025-07-17] MEDS: LEVOTHYROXINE SODIUM 150 MCG TABLET PO (06:15)
[2025-07-17 08:50] VITALS: BP 146/56; PULSE 65
[2025-07-17 08:51] VITALS: PULSE 65
[2025-07-17] MEDS: AMIODARONE HCL 200 MG TABLET PO (08:51)
[2025-07-17] MEDS: clonazePAM (*CRX) 0.5 MG TABLET PO ×2 (08:51→12:31)
[2025-07-17] MEDS: FUROSEMIDE 10 MG TABLET PO (08:52)
[2025-07-17] MEDS: VENLAFAXINE HCL XR 37.5 MG CAP PO (08:52)
[2025-07-17] MEDS: LORATADINE 10 MG TABLET PO (08:52)
[2025-07-17] MEDS: ROSUVASTATIN 20 MG TABLET 40 MG PO (08:52)
[2025-07-17] MEDS: LOSARTAN POTASSIUM 50 MG TABLET PO (08:52)
[2025-07-17] MEDS: SPIRONOLACTONE 25 MG TABLET PO (08:52)
--- NOTE | 2025-07-17 11:21 | P.DS_ITS ---
DS: Admitting Diagnosis Discharge Date 07/17/25 Admitting Diagnosis - failure to thrive - ground-level fall - CKD III - hypertension - abnormal UA - hypothyroidism - HLD - CHF - History of DVT on chronic anticoagulation DS: Discharge Diagnosis Discharge Diagnosis (1) Adult failure to thrive: Code(s): R62.7 - Adult failure to thrive Status: Acute (2) Ground-level fall: Code(s): W18.30XA - Fall on same level, unspecified, initial encounter Status: Acute (3) Stage 3b chronic kidney disease: Code(s): N18.32 - Chronic kidney disease, stage 3b Status: Acute (4) Hypertension: Qualifiers: Hypertension type: primary hypertension Qualified Code(s): I10 - Es sential (primary) hypertension Code(s): I10 - Essential (primary) hypertension Status: Chronic (5) Abnormal finding on urinalysis: Code(s): R82.90 - Unspecified abnormal findings in urine Status: Acute (6) Hypothyroidism: Qualifiers: Hypothyroidism type: acquired Qualified Code(s): E03.9 - Hypothyroidism, unspecified Code(s): E03.9 - Hypothyroidism, unspecified Status: Chronic (7) History of DVT (deep vein thrombosis): Code(s): Z86.718 - Personal history of other venous thrombosis and embolism Status: Chronic (8) Hyperlipidemia: Code(s): E78.5 - Hyperlipidemia, unspecified Status: Chronic (9) CHF (congestive heart failure): Qualifiers: Heart failure chronicity: acute on chronic Heart failure type: combined systolic and diastolic Qualified Code(s): I50.43 - Acute on chronic combined systolic (congestive) and diastolic (congestive) heart failure Code(s): I50.9 - Heart failure, unspecified Status: Acute (10) History of CVA (cerebrovascular accident): Code(s): Z86.73 - Personal history of transient ischemic attack (TIA), and cerebral infarction without residual deficits Status: Acute (11) History of ventricular tachycardia: Code(s): Z86.79 - Personal history of other diseases of the circulatory system Status: Acute DS: Summary Hospital Course Reason for hospitalization: - failure to thrive - ground-level fall - CKD III - hypertension - abnormal UA - hypothyroidism - HLD - CHF - History of DVT on chronic anticoagulation Hospital Course: The patient is a 79-year-old female with a complex medical history including mild dementia, nonischemic cardiomyopathy with systolic heart failure (s/p ICD), chronic kidney disease stage 3b, hypothyroidism, history of DVT on chronic anticoagulation, and recent hospitalizations for CHF exacerbation and UTI. She was readmitted after discharge due to persistent generalized weakness and a ground-level fall at home, without injury. On admission, she was noted to be deconditioned and concerned she was unable to care for herself independently. Initial evaluation revealed stable vital signs, no acute findings on imaging (CXR, CT head, cervical and thoracic spine), and laboratory studies notable for mild anemia, stable renal function, and evidence of a resolving UTI. Urine culture from previous hospitalization showed pansensitive Klebsiella pneumonia. She completed a course of Augmentin during her hospitalization. Repeat urine culture was negative and patient denied any urinary symptoms. Patient's INR was subtherapeutic for which she received an increased dose of Coumadin x2 days. Unclear if she has missed any doses of Coumadin recently, but does state she had a recent dose adjustment due to Patient instructed to resume home dosing and have a recheck INR next Monday or Monday. PT/OT evaluated the patient and recommended home health care (HHC) rather than inpatient rehabilitation. Care coordination arranged for HHC services prior to discharge. The patient?s functional status improved with supportive care, and she was discharged home in stable condition with instructions to follow-up with her PCP. Status at Discharge Overall status at discharge: patient is back to baseline Time Spent with Patient Time attestation: Total time spent providing and/or coordinating discharge services: Time spent: Greater than 30 minutes Exam Narrative: General: NAD Eyes: EOMI ENT: neck supple Cardiovascular: Regular rate and rhythm Respiratory: Clear to auscultation, respirations even and unlabored on RA Gastrointestinal: Soft, non tender Genitourinary: no suprapubic tenderness Musculoskeletal: No edema Skin: warm, dry Neuro: Alert. Psych: Mood appropriate DS: Data Data Completed and Pending Completed studies during hospitalization: ITS Impressions Chest X-Ray 07/15/25 17:54 Impression: Mild CHF Head CT 07/15/25 18:59 IMPRESSION: No acute intracranial hemorrhage or extra axial fluid collections. Chronic white matter microangiopathic changes and generalized atrophy. All CT scans at this facility are performed using low dose modulation techniques as appropriate to perform exam including the following: automated exposure control; use of iterative reconstruction technique; adjustment of the mA and/or kV according to patient size (this includes techniques or standardized protocols for targeted exams where dose is matched to indication/reason for exam). Cervical Spine CT 07/15/25 19:00 IMPRESSION: No acute fracture or subluxation. Degenerative changes with disc bulging and uncovertebral hypertrophy are noted. All CT scans at this facility are performed using low dose modulation techniques as appropriate to perform exam including the following: automated exposure control; adjustment of the mA and/or kV according to patient size (this includes techniques or standardized protocols for targeted exams where does is matched to indication/reason for exam; i.e. extremities or head); use of iterative reconstruction technique). Thoracic Spine CT 07/15/25 19:03 IMPRESSION: No acute fracture or subluxation. All CT scans at this facility are performed using low dose modulation techniques as appropriate to perform exam including the following: automated exposure control; use of iterative reconstruction technique; adjustment of the mA and/or kV according to patient size (this includes techniques or standardized protocols for targeted exams where dose is matched to indication/reason for exam). Labs on day of discharge: Labs from last 24 hours 07/17/25 03:54 WBC 5.1 RBC 3.57 L Hgb 10.7 L Hct 36.1 L MCV 101.1 H MCH 30.0 MCHC 29.6 L RDW 14.7 H Plt Count 185 MPV 9.9 Immature Gran % (Auto) 0.2 Neut % (Auto) 47.5 Lymph % (Auto) 36.3 [place] % (Auto) 13.1 H Eos % (Auto) 2.1 Baso % (Auto) 0.8 Lymph # (Auto) 1.86 [place] # (Auto) 0.7 H Eos # (Auto) 0.1 Baso # (Auto) 0.0 Abs Immat Gran (auto) 0.01 Absolute Neuts (auto) 2.4 Absolute Nucleated RBC 0.000 Band Neutrophils % Not Reportable Nucleated RBC % 0.0 Platelet Estimate Adequate Ovalocytes 1+ Schistocytes None seen PT 17.3 H INR 1.4 Sodium 137 Potassium 3.7 Chloride 104 Carbon Dioxide 28 Anion Gap 5 BUN 21 H Creatinine 1.36 H Estim Creat Clear Calc 27 Estimated GFR 38 L Glucose 83 Calcium 8.9 Discharge Plan Discharge Attending physician on discharge: Laan Begum Consulting providers: Sumi Garcia Discharging Clinician: Sumi Garcia Anticipated Discharge Date/Time: 07/17/25 11:13 Patient Disposition: Home with Home Health Service Activity: as tolerated Diet: as tolerated and regular Discharge Instructions: Care Coordination: Patient to have [facility] for PT/OT eval and treat, and fpc. Their phone number is [phone], if you have any questions; they will contact you to schedule their visits. RN Please fax discharge instructions to [phone]. Diagnosis: * Generalized weakness after mechanical fall (no injury) * Urinary tract infection (Klebsiella pneumoniae) diagnosed during last hospitalization. Repeat testing for UTI negative this hospitalization. * Anticoagulation management (Coumadin/warfarin) Activity: * Continue with physical therapy exercises as instructed. * Use assistive devices (walker, cane) as recommended for safety. * Avoid activities that increase fall risk. * Home health care will follow up to assist with mobility and therapy. Medications: * Augmentin (amoxicillin-clavulanate): * You can stop taking this medication as you completed antibiotics in the hospital and your repeat urine culture was negative * Coumadin (warfarin): * Resume 2 mg by mouth daily. * You received two increased doses during your hospital stay; now return to your usual dose. * Monitor for signs of bleeding (unusual bruising, blood in urine or stool, nosebleeds, gum bleeding). Monitoring: * INR (International Normalized Ratio): * Home health care will arrange for INR recheck on Monday or Monday next week. * Notify your provider if you experience any signs of bleeding or clotting. Home health care should also recheck your kidney function with a BMP and have results sent to your primary care doctor. Home Health Care: * Home health will assist with: * Physical therapy * Medication management * INR monitoring When to Seek Medical Attention: * New or worsening weakness, confusion, or difficulty walking * Any fall or injury * Signs of bleeding (see above) * Fever, chills, or worsening urinary symptoms (burning, pain, blood in urine) * Shortness of breath, chest pain, or severe headache Follow-Up: * Home health will coordinate INR check and physical therapy. * Follow up with your primary care provider as scheduled or if any concerns arise. Additional Instructions: * Maintain adequate hydration. * Take all medications as prescribed. * Keep your home environment safe to prevent falls (remove loose rugs, ensure good lighting, use grab bars if needed). If you have any questions or concerns, contact your home health nurse or primary care provider. Patient Instructions: Antibiotic Form, Heart Failure (GEN), Blood Thinners (GEN) Patient Language: Wolof Stand Alone Forms: General Discharge Information Follow-up/Referrals: Maureen,MD Masoud [Primary Care Provider, Unknown] - Call for Appointment Referral Note: follow-up in 1 week Discharge Medications: Continued venlafaxine [Effexor XR] 37.5 mg capsule,extended release 24hr 37.5 mg PO DAILY trazodone 150 mg tablet 150 mg PO HS carvedilol 12.5 mg tablet 25 mg PO DAILY rosuvastatin 40 mg tablet 40 mg PO DAILY levothyroxine 150 mcg Tablet 150 mcg PO DAILY amiodarone 200 mg tablet 200 mg PO DAILY clonazepam 0.5 mg tablet 0.5 mg PO TID losartan 50 mg tablet 50 mg PO DAILY mirtazapine 15 mg tablet,disintegrating 15 mg PO HS Jardiance 10 mg Tablet 10 mg PO DAILY Qty: 30 0RF furosemide [Lasix] 20 mg tablet 10 mg PO DAILY Qty: 30 0RF warfarin 2 mg tablet 2 mg PO DAILY@1700 Qty: 30 0RF spironolactone 25 mg tablet 25 mg PO DAILY cyanocobalamin (vitamin B-12) 1,000 mcg/mL solution 1,000 mcg subcut MONTHLY donepezil 10 mg tablet 10 mg PO HS acetaminophen [8 Hour Pain Reliever] 650 mg tablet extended release 650 mg PO Q8H PRN (Reason: pain) loratadine 10 mg Tablet 10 mg PO QAM Qty: 30 0RF metoclopramide HCl 5 mg Tablet 5 mg PO ACHS Qty: 120 0RF hydralazine 10 mg tablet 10 mg PO BID Qty: 60 0RF ondansetron 4 mg tablet,disintegrating 8 mg PO Q12H PRN (Reason: nausea and vomiting) Qty: 30 0RF Discontinued amoxicillin-pot clavulanate 875-125 mg tablet 1 tablet PO Q12H Qty: 6 0RF Other Ambulatory Orders: Basic Metabolic Panel (Routine) Timeframe: 4 Days Location: Determined by Patient Ordered By: Sumi Garcia Prothrombin Time INR (Routine) Timeframe: 4 Days Location: Determined by Patient Ordered By: Sumi Garcia Date of admission: 07/15/25 20:12 Primary Care Provider: Maureen,Masoud Admitting Provider: Henny Fox Attending physician on admission: Henny Fox Condition: Stable
[2025-07-17] MEDS: ACETAMINOPHEN 325 MG TABLET 650 MG PO (11:56)
== END 2025-07-17 13:32 | disposition home health service (06) ==
LOC: ANHED 19:55 → ANH2MED 21:24 → ANH3MEDSUR 07-18 07:09
PROVIDERS: Physician Assistant; Admitting Provider Internal Medicine; Emergency Provider Emergency Medicine; PCP Internal Medicine; Visit Provider Family Medicine
DX: R62.7 Adult failure to thrive (principal); W18.30XA Fall on same level, unspecified, initial encounter; I11.0 Hypertensive heart disease with heart failure; I12.9 Hypertensive chronic kidney disease with stage 1 through stage 4 chronic kidney disease, or unspecified chronic kidney disease; N18.32 Chronic kidney disease, stage 3b; R82.90 Unspecified abnormal findings in urine; E03.9 Hypothyroidism, unspecified; E78.5 Hyperlipidemia, unspecified; I44.7 Left bundle-branch block, unspecified; F31.9 Bipolar disorder, unspecified; F41.8 Other specified anxiety disorders; G62.9 Polyneuropathy, unspecified; F03.A0 Unspecified dementia, mild, without behavioral disturbance, psychotic disturbance, mood disturbance, and anxiety; K86.89 Other specified diseases of pancreas; Z79.01 Long term (current) use of anticoagulants; Z20.822 Contact with and (suspected) exposure to COVID-19; Z86.718 Personal history of other venous thrombosis and embolism; Z86.73 Personal history of transient ischemic attack (TIA), and cerebral infarction without residual deficits; Z86.79 Personal history of other diseases of the circulatory system; Z96.653 Presence of artificial knee joint, bilateral; Z82.49 Family history of ischemic heart disease and other diseases of the circulatory system; Z82.3 Family history of stroke; Z83.3 Family history of diabetes mellitus; Z81.1 Family history of alcohol abuse and dependence; Z81.8 Family history of other mental and behavioral disorders
CPT/HCPCS: 36415; 70450; 71045; 72125; 72128; 80048; 80053; 81001; 83880; 85025; 85610; 85730; 87086; 87637; 97110; 97116; 97161; 97165; 99285; A9270; G0378

== ENCOUNTER 2025-08-14 17:04 | Emergency (ER) | payer MEDICARE, SELFPAY ==
--- NOTE | ~2025-08-14 | XR_ITS ---
EXAMINATION: XR chest 2V DATE: 08/14/2025 18:43 INDICATION: Weakness. TECHNIQUE: Frontal and lateral views of the chest were obtained. COMPARISON: Chest x-ray 07/11/2025 FINDINGS: Borderline size heart. Atherosclerotic aorta. Pacemaker in place. Lungs do not show acute findings. Severe arthritis of both shoulders. IMPRESSION: 1. No acute findings. Other findings as mentioned above. Reviewed, dictated and finalized at location T. [employer]
--- NOTE | ~2025-08-14 | CT_ITS ---
EXAMINATION: CT abdomen pelvis w con DATE: 08/14/2025 22:28 INDICATION: Cystitis. TECHNIQUE: Computed tomography (CT) of the abdomen and pelvis was performed with 100 mL Omnipaque 350 intravenous contrast. Automated exposure control and iterative reconstruction technique were employed. The dose-length product was 531.19 mGy-cm. COMPARISON: CT abdomen and pelvis 06/22/2025 FINDINGS: The visualized portions of the lung bases demonstrate mild atelectasis. No pleural effusion. Cardiomegaly is noted. There are pacer wires in right atrium, right ventricle, and coronary sinus. No pericardial effusion. There is a small sliding hiatal hernia. The liver, gallbladder, spleen, and adrenal glands are normal. There is fatty atrophy in the head of the pancreas. There are cysts in the kidneys measuring up to 3.0 cm on the right. There is cortical thinning of the kidneys. There is diverticulosis of the colon without evidence of diverticulitis. There are no dilated loops of bowel. The appendix is normal. There are no pathologically enlarged lymph nodes. There is no free intraperitoneal fluid. There is severe lumbar spondylosis. IMPRESSION: 1. Small sliding hiatal hernia. Reviewed, dictated and finalized at location E. DRIVER
--- NOTE | ~2025-08-14 | CT_ITS ---
EXAMINATION: CT brain wo con DATE: 08/14/2025 18:39 INDICATION: Weakness. TECHNIQUE: Computed tomography (CT) of the head was performed without intravenous contrast. The mA was adjusted according to patient size. Iterative reconstruction technique was employed. The dose-length product was 605.33 mGy-cm. COMPARISON: CT head dated 07/15/2025 FINDINGS: No acute intracranial bleed. Chronic small vessel ischemic change and old infarct of the left hemisphere. No ventriculomegaly or midline shift. IMPRESSION: 1. No acute findings. Extensive chronic changes similar to prior examination. Reviewed, dictated and finalized at location T. ER GUIDANCE TECHNICIAN
--- NOTE | ~2025-08-14 | CT_ITS ---
EXAMINATION: CT lumbar spine wo con DATE: 08/14/2025 18:39 INDICATION: Weakness. No history of recent trauma. TECHNIQUE: Computed tomography (CT) of the lumbar spine was performed without intravenous contrast. Automated exposure control and iterative reconstruction technique were employed. The dose-length product was 735.53 mGy-cm. COMPARISON: CT abdomen pelvis including lumbar spine dated 06/22/2025 FINDINGS: Bones are diffusely osteopenic. No acute bony lesions. Severe degenerative disc disease at L2-3, L3-4 and L4-5 levels. Large exophytic cyst of the right kidney similar to prior study. IMPRESSION: 1. Osteopenic bones. Severe multilevel degenerative disc disease. Reviewed, dictated and finalized at location T. H DOCTOR
[2025-08-14 17:07] VITALS: BP 142/63; PULSE 61; RESP 18; TEMP 36.6; O2SAT 100
--- NOTE | 2025-08-14 18:17 | ECG_ITS ---
Test Date: 2025-08-14 18:54:06 Measurements Intervals [place] Rate: 60 P: -63 [place]: 120 QRS: 248 QRSD: 160 T: 68 QT: 543 QTc: 543 Interpretive Statements ELECTRONIC ATRIAL PACEMAKER ELECTRONIC VENTRICULAR PACEMAKER BASELINE ARTIFACT- I, II, III, AVR, AVL, AVF, V1-V6 NO FURTHER INTERPRETATION IS POSSIBLE ATYPICAL ECG Compared to ECG 07/11/2025 22:12:08 No significant changes Electronically Signed On 08-14-2025 20:30:58 SOUND TRUCK OPERATOR by Tevin Wong D.O.
--- NOTE | 2025-08-14 18:55 | ECG_ITS ---
Test Date: 2025-08-14 18:58:25 Measurements Intervals [place] Rate: 62 P: 208 [place]: 118 QRS: 263 QRSD: 166 T: 73 QT: 536 QTc: 546 Interpretive Statements ELECTRONIC ATRIAL PACEMAKER ELECTRONIC VENTRICULAR PACEMAKER NO FURTHER INTERPRETATION IS POSSIBLE ATYPICAL ECG Compared to ECG 08/14/2025 18:54:06 No significant changes Electronically Signed On 08-15-2025 07:56:47 POT TENDER by Tevin Wong D.O.
[2025-08-14] MEDS: SODIUM CHLORIDE 0.9% IV 500 ML 999 ML IV CONT (19:36)
--- OUTSIDE RECORDS SUMMARY | 2025-08-14 19:36 | XMS_ITS | Clinical Summary ---
Author Organization [facility] Address [address] [address] Phone Care Team Providers Care Sample Puller Name Role Phone Lana Tovar MD Primary [...] complete this topic Human Papillomavirus (HPV) Immunization (No Doses Required) Completed Immunochemical Fecal Occult Blood Discontinued Meningococcal Immunization (ACWY) Aged Out No longer eligible based on patient's age to complete this topic Rotavirus Immunization Aged Out No lo nger eligible based on patient's age to complete this topic Insurance MEDICARE [facility] Care Teams Sample Puller Relationship Specialty Start Date End Date Lana Tovar MD [address] [place] [id number] PCP - General Family Medicine 12/23/16
--- OUTSIDE RECORDS SUMMARY | 2025-08-14 19:36 | XMS_ITS | Data Portability ---
Author Organization [place] - [facility] [employer], Main Office Address [address] [place] [address] Care Team Providers Care Pool Installer Name Role Phone GERARDOANÍBALROQUE Holden Primary Care Provider LANA TOVAR Referring Provider PEDRO AMAYA Psychiatrist LORETA HAQUE Historian Dramatic Arts JENNIFFER ROJAS Ship Engineer [phone] EVON CEJA Cardiac Surgeon [phone] Assessment Encounter Date Assessment Date Assessment LastModified by Organization Details LastModified Time 01/13/2025 01/13/2025 01/02/2024: ER labs WBC 16.5H [...] Chest CT 04/22/24 no nodules Abel PFT 09/21/23 decreased FEV1/FVC, FEV1 1.52 L (73%), TLC [...] further management. Follow-up: 1 year, March 2026 [email or web address] Not available 03/13/2025 15:20:22 04/21/2025 04/21/2025 01/02/2024: [...] did discuss with the HH RN 04/21/2025: [facility] BUN 25, Cr 1.19, GFR 44, AST/ALT 53/57 WBC 10.4, MCV 102.4 I have reconciled the patient's medications post their discharge from inpatient facility. [email or web address] Not available 05/07/2025 12:00:54 07/28/2025 07/28/2025 01/02/2024: ER labs WBC 16.5H Cr 1.10, Gluc 218 Trop 0.059H Xr chest mild pulm edema 06/12/2024: TG 192 K 3.4, gluc 62, BUN 22, Cr 1.83, GFR 27, AST 63 MCV 105.0 09/16/2024: K 5,4, BUN 27, Cr 1.51, GFR 33, ALT 40 TG 231 MCV 105 04/18/2025: INR 2.9, did discuss with the HH RN 04/21/2025: [facility] BUN 25, Cr 1.19, GFR 44, AST/ALT 53/57 WBC 10.4, MCV 102.4 07/11/2025: [facility] GFR 51, AST/ALT 38/40 I have reconciled the patient's medications post their discharge from inpatient facility. I have reconciled the patient's medications post their discharge from inpatient facility. Not available 07/28/2025 17:15:58 Plan of Treatment Reminders Order Date Submit Date Provider Last Modified By Organization Details Last Modified Time Details Appointments Any 15 2025 02:45P M Roque santoyo MD Not available Not available Not available Any 15 2025 02:00P M Loreta Haque MD Not available Not available Not available Lab urinalysi s, complete [address] (Lab), [address] [place] [address], [address], 08/06/2025 08:34:24 culture, urine + sensitivi ty [address] (Lab), [address] [place] [address] [address], [place], [address], 07/30/2025 09:36:37 CMP, serum or plasma [address] (Lab), [address] [place], [address], 07/30/2025 09:36:36 lipid panel, serum [address] (Lab), [address] [place], [address], 07/30/2025 09:36:36 CBC w/ auto diff [address] (Lab), [address] [place], [address], 07/30/2025 09:36:37 TSH, serum or plasma [address] (Lab), [address] [place], [address], 07/30/2025 09:36:37 vitamin B12 + folate, serum or blood 2024 025 [facility] (Lab), [address] [place], [address], 07/30/2025 09:36:37 urinalysi s, dipstick 2024 025 dacia yarelisMaria R [facility] [address], [place], [address], 05/07/2025 13:29:07 urinalysi s, complete 2024 025 [facility] (Lab), [address] [place] [address] [address], [place], [address], 05/08/2025 00:04:11 culture, urine + sensitivi ty 2024 025 [facility] (Lab), [address] [place] [address], [address], 05/10/2025 11:51:26 INR, blood [address] (Lab), [address] [place] [address] 162, [place], [address], 05/15/2025 16:29:37 CMP, serum or plasma 2024 025 [facility] (Lab), [address] [place], [address], 07/11/2025 20:37:49 lipid panel, serum 2024 025 [facility] (Lab), [address] [place], [address], 05/07/2025 17:37:51 CBC w/ auto diff 2024 025 [facility] (Lab), [address] [place], [address], 07/11/2025 18:38:45 TSH, serum or plasma 2024 025 [facility] (Lab), [address] [place], [address], 05/07/2025 17:37:51 T4, free, serum 2024 025 [facility] (Lab), [address] [place], [address], 05/07/2025 17:37:51 vitamin B12 + folate, serum or blood 2024 025 [facility] (Lab), [address] [place], [address], 05/07/2025 17:37:51 CMP, serum or plasma 2024 025 [facility] (Lab), [address] [place], [address], 05/07/2025 15:59:19 lipid panel, serum [address] (Lab), [address] [place], [address], 04/21/2025 16:58:10 CBC w/ auto diff [address] (Lab), [address] [place], [address], 04/21/2025 16:58:10 TSH, serum or plasma [address] (Lab), [address] [place], [address], 04/21/2025 16:58:11 T4, free, serum [address] (Lab), [address] [place], [address], 04/21/2025 16:58:11 vitamin B12 + folate, serum or blood [address] (Lab), [address] [place], [address], 04/21/2025 16:58:11 CMP, serum or plasma 2024 025 [facility] (Lab), [address] [place], [address], 04/22/2025 01:40:15 lipid panel, serum [address] (Lab), [address] [place], [address], 07/17/2025 16:09:30 CBC w/ auto diff 2024 025 [facility] (Lab), [address] [place], [address], 03/25/2025 02:16:42 TSH, serum or plasma [address] (Lab), [address] [place], [address], 07/17/2025 16:09:30 T4, free, serum [address] (Lab), [address] [place], [address], 07/17/2025 16:09:30 vitamin B12 + folate, serum or blood [address] (Lab), [address] [place], [address], 07/17/2025 16:09:[address] referral - Please call patient to schedule. 2024 025 BROWN Castorena MD, [address] [facility], [address], [place], [address], 07/29/2025 17:40:28 gynecolog ist referral - Please call patient to schedule an appointme nt. Thank you. 2024 025 [email or web address] Johanne Conway MD, [address], [address], [place], [address], 07/29/2025 17:15:12 nephrolog ist referral - Please call patient to schedule an appointme nt. Thank you. 2024 025 trever Causey MD, [address], [address], [place], [address], 07/29/2025 17:15:12 cardiolog ist referral - Please call patient to schedule an appointme nt. Thank you. 2024 025 [email or web address] Evon Ceja MD, [address], [address], [place], [address], 07/29/2025 17:15:27 gynecolog ist referral - Please call patient to schedule an appointme nt. Thank you. 2024 025 trever Conway MD, [address], [address], [place], [address], 07/15/2025 09:30:11 nephrolog ist referral - Please call patient to schedule an appointme nt. Thank you. 2024 025 trever Causey MD, [address], [address], [place], [address], 08/07/2025 15:18:00 cardiolog ist referral - Please call patient to schedule an appointme nt. Thank you. 2024 025 [email or web address] Evon Ceja MD, [address] [facility] [address], [address], [place], [address], 08/07/2025 15:17:07 nephrolog ist referral - Please call patient to schedule an appointme nt. Thank you. 2024 025 [email or web address] Adelso Causey MD, [address], [address], [place], [address], 07/22/2025 12:30:06 gynecolog ist referral - Please call patient to schedule an appointme nt. Thank you. 2024 025 [email or web address] Johanne Conway MD, [address] [facility] [address], [address], [place], [address], 07/15/2025 09:30:20 cardiolog ist referral - Please call patient to schedule an appointme nt. Thank you. 2024 025 [email or web address] Evon Ceja MD, [address] [facility] [address], [address], [place], [address], 07/22/2025 12:35:04 pulmonolo gist referral - Please call patient to schedule an appointme nt. Thank you. 2024 025 [email or web address] Haque MD, [address] [place], [address], 07/22/2025 12:27:38 gynecolog ist referral - Please call patient to schedule an appointme nt. Thank you. 2024 025 [email or web address] Johanne Conway MD, [address] [facility] [address], [address], [place], [address], 07/17/2025 15:02:52 pulmonolo gist referral - Please call patient to schedule an appointme nt. Thank you. 2024 025 [email or web address] Haque MD, [address] [place], [address], 04/21/2025 10:20:39 Procedures None recorded. Surgeries None recorded. Imaging MAMMO, screening , bilateral - Please call patient to schedule. [address] ([employer]), [address] [place], [address], 07/29/2025 09:49:46 MAMMO, screening , bilateral - Please call patient to schedule. [address] (Imaging), [address] [place] [address], [address], 05/07/2025 14:19:18 MAMMO, screening , bilateral - Please call patient to schedule. [address] (Imaging), [facility] [address], [address], 04/21/2025 16:11:26 MAMMO, screening , bilateral - Please call patient to schedule. [address] ([facility]), [facility] [address], [address], 04/14/2025 19:25:03 Medication Orders albuterol sulfate HFA 90 mcg/actua tion aerosol inhaler 2024 [facility]25 [facility] [address] [place], [address], 04/21/2025 14:37:01 nystatin- triamcino lone 100,000 unit/g-0. 1 % topical cream 2024 025 [facility] [address] [place], [address], 01/13/2025 15:43:11 Patient TargetsNo targets recorded. Patient Instructions Encounter Date Encounter Id Patient Instructions Last Modified By Organization Details Last Modified Time 05/07/2025 [id number] Thank you for your visit to our [...] Equipment needed: walker Billing Guidelines CPT code 05386- Transitional Care Management services with moderate medical decision complexity (nlic-cp-mzru visit within 14 days of discharge). CPT code 54761- Transitional Care Management services with high medical decision complexity (uvfq-gn-phwg visit within 7 days of discharge). Not available 05/07/2025 12:16:27 07/28/2025 [id number] Thank you for your visit to our [...] call us to discuss. [email or web address] Not available 07/28/2025 14:53:39 Homebound Status : Required Home Health Services: Durable Medical Equipment needed: Billing Guidelines CPT code 85976- Transitional Care Management services with moderate medical decision complexity (paib-tu-abba visit within 14 days of discharge). CPT code 83406- Transitional Care Management services with high medical decision complexity (lpaz-xk-nqhz visit within 7 days of discharge). [email or web address] Not available 07/28/2025 14:53:39 Reason for Referral Commercial Escrow Assistant Referral for Gy necologic examination Please call patient to schedule an appointment. Thank you. Referring Physician: Roque Reddy Internal Medicine, Encounter Date: 01/13/2025 Historian Dramatic Arts Referral for M ultiple nodules of lung Please call patient to schedule an appointment. Thank you. Referring Physician: Roque Reddy Internal Medicine, Encounter Date: 01/13/2025 Commercial Escrow Assistant Referral for Gy necologic examination Please call patient to schedule an appointment. Thank you. Referring Physician: Sherry Jones Medicine, Encounter Date: 04/21/2025 Historian Dramatic Arts Referral for M ultiple nodules of lung Please call patient to schedule an appointment. Thank you. Referring Physician: Sherry Jones Medicine, Encounter Date: 04/21/2025 Loan Analyst Referral for Ch ronic kidney disease Please call patient to schedule an appointment. Thank you. Referring Physician: Sherry Jones Medicine, Encounter Date: 04/21/2025 Cylinder Handler Referral for Es sential hypertension Please call patient to schedule an appointment. Thank you. Referring Physician: Sherry Jones Medicine, Encounter Date: 04/21/2025 Commercial Escrow Assistant Referral for Gy necologic examination Please call patient to schedule an appointment. Thank you. Referring Physician: Sherry Jones Medicine, Encounter Date: 05/07/2025 Loan Analyst Referral for Ch ronic kidney disease Please call patient to schedule an appointment. Thank you. Referring Physician: Sherry Jones Medicine, Encounter Date: 05/07/2025 Cylinder Handler Referral for Es sential hypertension Please call patient to schedule an appointment. Thank you. Referring Physician: Sherry Jones Medicine, Encounter Date: 05/07/2025 Commercial Escrow Assistant Referral for Gy necologic examination Please call patient to schedule an appointment. Thank you. Referring Physician: Roque Reddy Internal Medicine, Encounter Date: 07/28/2025 Loan Analyst Referral for Ch ronic kidney disease Please call patient to schedule an appointment. Thank you. Referring Physician: Roque Reddy Internal Medicine, Encounter Date: 07/28/2025 Cylinder Handler Referral for Es sential hypertension Please call patient to schedule an appointment. Thank you. Referring Physician: Roque Reddy Internal Medicine, Encounter Date: 07/28/2025 Neurologist Referral for His tory of cerebrovascular accident Please call patient to schedule. Referring Physician: Roque Reddy Internal Medicine, Encounter Date: 07/28/2025 Results Created Date Observation Date Name Description Value Unit Range Abnormal Flag Note LastModifiedBy Organization Detail LastModifiedTime 01/17/20 25 01/16/2025 PT/IN R PT 80.3 Not Available [facility] Internal Med [facility] [address] [facility] [address], [place], [address], 01/16/2025 14:26:29 01/17/20 25 01/16/2025 PT/IN R INR 6.7 Not Available [facility] Internal Med [facility] [address] [facility] [address], [place], [address], 01/16/2025 14:26:29 02/19/20 25 02/18/2025 imagi ng/di agnos tic resul t No observ ation record ed. [address], [address], 02/18/2025 19:39:24 03/24/20 25 03/24/2025 imagi ng/di agnos tic resul t No observ ation record ed. [address], [place], [address], 03/24/2025 23:46:59 03/25/20 25 03/25/2025 imagi ng/di agnos tic resul t No observ ation record ed. [address], [place], [address], 03/25/2025 16:04:39 03/25/20 25 03/25/2025 imagi ng/di agnos tic resul t No observ ation record ed. [address], [place], [address], 03/25/2025 16:52:17 03/28/20 25 03/28/2025 imagi ng/di agnos tic resul t No observ ation record ed. [address], [place], [address], 03/28/2025 16:05:30 04/21/20 25 04/21/2025 imagi ng/di agnos tic resul t No observ ation record ed. [address], [place], [address], 04/21/2025 17:47:43 04/21/20 25 04/21/2025 imagi ng/di agnos tic resul t No observ ation record ed. [address], [place], [address], 04/21/2025 17:51:22 04/21/20 25 04/21/2025 imagi ng/di agnos tic resul t No observ ation record ed. [address], [place], [address], 04/21/2025 18:04:10 04/22/20 25 04/22/2025 imagi ng/di agnos tic resul t No observ ation record ed. [address], [place], [address], 04/22/2025 20:45:38 04/22/20 25 04/22/2025 imagi ng/di agnos tic resul t No observ ation record ed. [address] [facility], [place], [address], 04/22/2025 20:50:16 04/22/20 25 04/22/2025 imagi ng/di agnos tic resul t No observ ation record ed. [address] [address], [place], [address], 04/22/2025 21:00:35 04/24/20 25 04/24/2025 imagi ng/di agnos tic resul t No observ ation record ed. [address] [address], [place], [address], 04/24/2025 10:22:15 05/07/20 25 05/07/2025 XR, hip + pelvi s, unila teral , 2 or 3 view No observ ation record ed. [address] [facility], [place], [address], 05/07/2025 14:35:36 05/07/20 25 05/07/2025 imagi ng/di agnos tic resul t No observ ation record ed. [address] [address], [place], [address], 05/07/2025 16:43:13 05/07/20 25 05/07/2025 imagi ng/di agnos tic resul t No observ ation record ed. [address], [place], [address], 05/07/2025 17:50:39 05/20/20 25 05/20/2025 imagi ng/di agnos tic resul t No observ ation record ed. [address] [address], [place], [address], 05/20/2025 07:05:22 05/21/20 25 05/21/2025 imagi ng/di agnos tic resul t No observ ation record ed. [address], [place], [address], 05/21/2025 21:58:15 05/26/20 25 05/26/2025 imagi ng/di agnos tic resul t No observ ation record ed. [address], [place], [address], 05/26/2025 13:21:28 05/26/20 25 05/26/2025 imagi ng/di agnos tic resul t No observ ation record ed. [address] [address], [place], [address], 05/26/2025 13:37:43 05/26/20 25 05/26/2025 imagi ng/di agnos tic resul t No observ ation record ed. [address] [address], [place], [address], 05/26/2025 23:06:53 06/22/20 25 06/22/2025 imagi ng/di agnos tic resul t No observ ation record ed. [address] [address], [place], [address], 06/22/2025 15:50:55 06/22/20 25 06/22/2025 imagi ng/di agnos tic resul t No observ ation record ed. [address] [address], [place], [address], 06/22/2025 16:35:30 06/22/20 25 06/22/2025 imagi ng/di agnos tic resul t No observ ation record ed. [address], [place], [address], 06/22/2025 16:58:05 07/11/20 25 07/11/2025 imagi ng/di agnos tic resul t No observ ation record ed. [address] [address], [place], [address], 07/11/2025 15:20:10 07/14/20 25 07/12/2025 imagi ng/di agnos tic resul t No observ ation record ed. [address], [place], [address], 07/14/2025 12:23:23 07/14/20 25 07/12/2025 imagi ng/di agnos tic resul t No observ ation record ed. [address], [place], [address], 07/14/2025 12:25:09 07/15/20 25 07/15/2025 MRI, brain , w/o contr ast No observ ation record ed. [facility] [address], [place], [address], 07/15/2025 17:11:44 08/14/20 25 08/14/2025 imagi ng/di agnos tic resul t No observ ation record ed. [address], [place], [address], 08/14/2025 19:51:20 08/14/20 25 08/14/2025 imagi ng/di agnos tic resul t No observ ation record ed. [address], [place], [address], 08/14/2025 19:55:25 08/14/20 25 08/14/2025 imagi ng/di agnos tic resul t No observ ation record ed. [address], [place], [address], 08/14/2025 19:56:51 Result Notes None recorded. Problems Name Problem SNOMED Code Status Onset Date Resolution Date Notes Provider Name and Address Organization Details Recorded Time Gastroesop hageal reflux disease 747680769 Active Loreta Haque MD [address] [facility], [facility] [address], [place], [address] , [facility] 5 08:34:21 Vitamin D deficiency 74680769 Active Loreta Haque MD [address], [address], [place], [address] , [employer] [facility] [employer] [facility] 5 08:33:45 Hypothyroi dism 90248669 Active Loreta Haque MD [address], [place], [address] , [employer] [facility] [employer] [facility] 5 08:34:16 Long-term current use of anticoagul ant 424672268 Active 2020 Loreta Haque MD [address], [place], [address] , [employer] [facility] [employer] 5 08:34:04 Osteoporos is 79479746 Active 2020 DEXA Loreta Haque MD [address], [address], [place], [address] , [employer] [facility] [employer] 5 08:33:47 Essential hypertensi on 78142818 Active 2022 Susana Kimbrough, A null, [employer] [facility] [employer] [facility] 5 12:03:43 Moderate recurrent major depression 80403511 Active 2023 Loreta Haque MD [address], [place], [address] , [employer] [facility] [employer] [facility] 5 08:33:58 Nonischemi c congestive cardiomyop athy 386913087042 Active 2023 Loreta Haque MD [address], [place], [address] , [employer] [facility] [employer] [facility] 5 08:33:55 Hiatal hernia 52394461 Active 2023 Loreta Haque MD [address], [place], [address] , [facility] [employer]o [facility] [employer] [facility] 5 08:34:19 Hyperlipid emia 61614026 Active 2023 Loreta Haque MD [address], [place], [address] , [facility] 5 08:34:18 Atrial fibrillati on 73493168 Active 2023 Loreta Haque MD [address], [place], [address] , [facility] 5 08:34:34 Chronic kidney disease 255772358 Active 2024 Loreta Haque MD [address], [place], [address] , [facility] 5 08:34:30 Mild chronic obstructiv e pulmonary disease 376984000 Active 2024 Loreta Haque MD [address], [place], [address] , [facility] 5 08:34:01 Nasal sinus problem 486198462 Active 2024 Susana Kimbrough, [facility] null, [place] [facility] 5 15:01:35 Serum vitamin B12 below reference range 670211300 Active 2024 Roque holden MD [address], [place], [address] , [facility] 5 14:33:29 Persistent insomnia 092991607 Active 2024 Roque holden MD [address], [place], [address] , [facility] 5 14:33:29 Abdominal pain 71415032 Active 2024 Roque holden MD [address], [place], [address] , [facility] 5 14:33:29 Mass of neck 289346976 Active 2024 Roque holden MD [address], [place], [address] , [facility] 14:33:29 Dizziness 802956277 Active 2024 Roque holden MD [address], [place], [address] , [facility] 14:33:29 Multiple nodules of lung 205745061 Active 2024 Roque holden MD [address], [place], [address] , [facility] 5 14:33:29 Dental caries 45028629 Active 2024 Roque holden MD [address] [place], [address] , [facility] 5 14:33:30 Pain of right hip joint 2747378691168 02 Active 2024 Roque holden MD [address], [place], [address] , [facility] 14:33:30 Tear of skin 228781415 Active 2024 Roque holden MD [address], [place], [address] , [facility] 5 14:33:30 Hyperkalem ia 35251910 Active 2024 Roque holden MD [address], [place], [address] , [facility] 5 14:33:30 Eruption 292022902 Active 2024 Roque holden MD [address], [place], [address] , [facility] 5 14:33:30 Nausea 791872892 Active 2024 Roque holden MD [address] [facility] [address], [place], [address] , [facility] 5 14:33:30 Cerebrovas cular accident 924300498 Active 2024 Susana [place], RMZurdo null, [facility] 5 15:42:56 Urinary symptoms 118504386 Active 2024 Lorraine Morris MA null, [facility] 5 13:00:14 Posterior rhinorrhea 38365956 Active 2024 PEREZ [place] null, [facility] 5 15:00:02 Acute respirator y failure 44752269 Active 2024 P[place]Z [place] null, [facility] 5 12:29:17 Seasonal allergy 818091895 Active 2024 SusanaPEREZ [place], [facility] 5 12:18:00 Cloudy urine 9313624 Active 2024 Ofelia Vazquez NP [address] [facility], [address] [address], [place], [address] , [facility] 5 16:52:12 Adult failure to thrive syndrome 416561650 Active 2024 Roque holden MD [address] [facility] [address], [place], [address] , [facility] 5 17:46:40 Tardive dyskinesia 600917152 Active 2024 Roque holden MD [address] [facility] [facility] [address], [place], [address] , [facility] 5 15:07:48 Notes:Medical History: Cereb ral atrophy Depression/Anxiety Rhinitis [...] 2014 AICD placement 2021 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 Procedures Surgical History Date Name Laterality Status Provider Name and Address Organization Details Recorded Time 07/28/20 25 Transitional_Care _Management completed Roque Reddy MD [address], [place], [address], [facility] [employer] [facility] 07/28/2025 17:16:04 05/07/20 25 Transitional_Care _Management completed Roque Reddy MD [address], [place], [address], [facility] [employer] [facility] [employer] 05/07/2025 12:00:21 04/17/20 24 Chronic care management services completed Jaclyn Huizar [place] [facility] [employer] [facility] 06/03/2024 19:11:19 02/26/20 24 Chronic care management services completed Ara Ozuna RN [facility] [employer] [facility] 02/26/2024 14:23:59 01/16/20 24 Chronic care management services completed Ara Ozuna RN [facility] 01/16/2024 18:07:23 12/06/19 24 Medicare Wellness CPT Code, subsequent completed PEREZ Hills [facility] 12/06/2023 14:03:15 04/10/20 23 Transitional_Care _Management completed THI Gatica [address], [place], [address], [facility] [employer] 04/11/2023 08:40:38 Rotator cuff surgery completed Lorraine Morris MA [facility] 01/08/2024 11:34:43 operation on intestine completed Lorraine Morris MA [facility] 01/08/2024 11:35:04 Tonsillectomy completed Lorraine Morris MA [facility] 01/08/2024 11:35:14 Tubal Ligation completed Lorraine Morris MA [facility] [employer] [facility] 01/08/2024 11:37:01 Imaging Results None recorded. Procedure Notes None recorded. Medical Equipment None Reported. Allergies Allergen ID Allergen Name Allergen Category Reaction Reaction Severity Criticality Documentation Date Start Date Code Code System Note Provider Name and Address Organization Details Recorded Time 06311 tramadol medicatio n Not available Not available Not available 11/02/2022 18392 RxNorm Vomit ing Not Available [facility] 3 09:34:02 18306 Non-stero idal anti-infl ammatory agent (substanc e) medicatio n hives moderate Not available 11/02/2022 68711 5008 SNOMED Also CKD Not Available [facility] 3 09:34:02 80059 Lamictal medicatio n rash Not available Not available 11/02/2022 49606 2 RxNorm Not Available [facility] 3 09:34:02 90691 codeine medicatio n nausea Not available Not available 11/18/2022 2670 RxNorm MIKE Linder [address] [place] [address], [address] [place] [address] [facility] 3 10:59:48 83387 lorazepam medicatio n other Not available Not available 07/22/20252016 6470 RxNorm EMOTI ONAL Not Available andre - External Data Service - prod 5 12:42:05 88432 amoxicill in medicatio n diarrhea Not available low 07/27/20252022 723 RxNorm Not Available andre - External Data Service - prod 5 17:43:59 87990 hydroxyzi ne Not available Not available Not available Not available 07/27/2025 5553 RxNorm Not Available [employer] Data [employer] - prod 5 17:43:59 88185 naproxen medicatio n Not available Not available Not available 07/27/2025 7258 RxNorm Not Available [employer] - prod 17:43:59 32284 sumatript an medicatio n Not available Not available Not available 07/27/2025 20198 RxNorm unrec ogniz ed react ion (text : Unkno wn, code: [id number]) (from [facility] e) Not Available derry - External Data Service - prod 17:43:59 48671 tolmetin medicatio n other Not available low 07/27/20252016 13648 RxNorm STOMA CH UPSET Not Available andre - External Data Service - prod 17:43:59 88133 lamotrigi ne medicatio n Not available Not available Not available 07/27/20252023 03633 RxNorm Not Available [facility] External Data Service - [facility] 17:44:28 Medications Name Sig Start Date Stop Date [...] TABLET BY MOUTH THREE TIMES A WEEK 07/28 completed Not Available Not Available Not Available atorvasta tin 40 mg tablet TAKE 1 TABLET BY MOUTH ONCE DAILY AT BEDTIME 11/05 completed Not Available Not Available Not Available buspirone 5 mg tablet active Not Available Not Available Not Available hydralazi ne 10 mg tablet TAKE 1 TABLET BY MOUTH TWICE DAILY active Not Available Not Available No t Available carvedilo l 25 mg tablet TAKE [...] SURGERY AND CONTINUE FOR ONE WEEK AFTER 08/18 /2025 completed Not Available Not Available Not Available [...] 1 TABLET BY MOUTH TWICE DAILY NEEDED 07/28 completed Not Available Not Available Not Available prednisol one acetate 1 % eye drops,kamari pension INSTILL ONE DROP INTO THE SURGICAL EYE THREE TIMES DAILY. TO START AFTER SURGERY AND CONTINUE FOR THREE WEEKS 04/21 completed Not Available Not Available Not Available metoclopr amide 5 mg tablet TAKE 1 TABLET BY MOUTH 4 TIMES DAILY active Not Available Not Available [...] 1 TABLET BY MOUTH TWICE DAILY ON Monday AND SUNDAYS active Not [...] Available Not Available Not Available furosemid e 20 mg tablet TAKE 1/2 (ONE-FARIBA F) TABLET BY MOUTH ONCE DAILY active Not Available Not Available No t Available mirtazapi ne 15 mg tablet 03/22 completed Not Available Not Available Not Available gabapenti n 100 mg capsule 11/18 completed Not Available Not Available Not Available Aspir-81 mg tablet,de layed release Take 1 tablet every day by oral route. 02/01 completed Not Available Not Available Not Available warfarin 1 mg tablet TAKE 1 TABLET BY MOUTH ONCE DAILY ON MONDAY S AND SUNDAYS* *dosage subject to change 2024 active Not Available Not Available Not Avai lable polyethyl nata glycol 3350 17 gram/dose oral powder 03/22 completed Not Available Not Available Not Available mirtazapi ne 15 mg disintegr ating tablet DISSOLVE 1 TABLET BY MOUTH ONCE DAILY AT BEDTIME active Not Available Not Available No t Available methylpre dnisolone 4 mg tablets in [...] MOUTH EVERY 12 HOURS FOR 5 DAYS 07/28 completed Not Available Not Available Not Available fluticaso ne propionat e 50 mcg/actua tion nasal spray,kamari pension [place] 1 spray every day by intranas al route for 30 days. 11/05 completed Not Available Not Available Not Available doxycycli ne hyclate 100 mg tablet Take 1 tablet twice a day by oral route for 7 days. active Not Available Not Available No t Available loratadin e 10 mg tablet TAKE 1 TABLET BY MOUTH ONCE DAILY NEEDED active Not Available Not Available No t Available amoxicill in 875 mg-potass ium clavulana te 125 mg tablet TAKE 1 TABLET BY MOUTH EVERY 12 HOURS 07/28 completed Not Available Not Available Not Available [...] Not Available rosuvasta tin 40 mg tablet Take 1 tablet by mouth once daily 2024 active Not Available Not Available Not Avai lable memantine 10 mg tablet TAKE 1 TABLET [...] Not Available Not Available Not Available Fluvirin 3532-4488 45 mcg (15 mcg x 3)/0.5 mL intramusc ular suspensio n INJECT 0.5 ML INTRAMUS CULARLY DIRECTED . active Not Available Not Available No t Available Jardiance 10 mg tablet TAKE 1 TABLET BY [...] Available Not Available Not Available Fluzone High-Dose 9581-3774 (PF) 180 mcg/0.5 mL intramusc ular syringe 09/06 completed Not Available Not Available Not Available Fluzone High-Dose 3225-0261 (PF) 180 mcg/0.5 mL intramusc ular syringe 05/12 completed Not Available Not Available Not Available Shingrix (PF) 50 mcg/0.5 mL intramusc ular suspensio n, kit 05/12 completed Not Available Not Available Not Available Fluzone High-Dose 5640-9315 (PF) 180 mcg/0.5 mL intramusc ular syringe [...] weight Body temperature Heart rate Oxygen saturation Pain severity - 0-10 verbal numeric rating [Score] - Reported Systolic And Diastolic Provider Name and Address Organization Details Last Updated DateTime 5 167.64 cm 28.6 kg/m2 60819.8 5 g 98.5 [degF] 68 /min 97 % 0 154/84 mm[Hg] Lorraine Morris MA [facility] [employer] 5 14:50:37 Date Recorded Heart rate Respiratory rate Provider N kaleigh and Address Organization Details Last Updated DateTime 03/13/2025 61 /min 14 /min Loreta Haque MD [address] [place] [address] [address], [place], [address], [facility] [employer] 03/13/2025 15:08:35 Date Recorded Body height Body mass index (BMI) Body weight Body temperature Heart rate Oxygen saturation Systolic And Diastolic Provider Name and Address Organization Details Last Updated DateTime 5 167.64 cm 28.7 kg/m2 08164.4 4 g 98.9 [degF] 61 /min 96 % 126/84 mm[Hg] Lauryn Raines MA [facility] [employer] [facility] 5 14:56:32 Date Recorded Body height Body temperature Heart rate Oxygen saturation Pain severity - 0-10 verbal numeric rating [Score] - Reported Systolic And Diastolic Provider Name and Address Organization Details Last Updated DateTime 5 167.64 cm 98.2 [degF] 60 /min 97 % 0 104/60 mm[Hg] Lorraine Morris MA [facility] 5 14:35:14 Date Recorded Body height Body temperature Heart rate Oxygen saturation Pain severity - 0-10 verbal numeric rating [Score] - Reported Systolic And Diastolic Provider Name and Address Organization Details Last Updated DateTime 5 167.64 cm 98.7 [degF] 66 /min 92 % 0 110/64 mm[Hg] Lorraine Morris MA [facility] [employer] 5 11:51:32 Date Recorded Body height Body temperature Pain severity - 0-10 verbal numeric rating [Score] - Reported Heart rate Oxygen saturation Systolic And Diastolic Provider Name and Address Organization Details Last Updated DateTime 5 167.64 cm 98.6 [degF] 6 95 /min 67 % 130/78 mm[Hg] Lorraine Morris MA [facility] [employer] 5 14:24:07 Social History Question Answer Notes LastModified by Organization Details LastModified Time Tobacco Smoking Status Never [facility]oker [facility] 11/02/2022 09:26:39 Do You Have An Advance Directive? Yes [email or web address] Information not available 04/17/2024 Are You Blind Or Do You Have Difficulty Seeing? No [email or web address] Information not available 12/06/2023 Is Blood Transfusion Acceptable In An Emergency? Yes [email or web address] Information not available 01/16/2024 What Is Your Level Of Caffeine Consumption? Heavy 3 Coca Cola's Per Day [email or web address] Information not available 01/16/2024 In The 14 Days Before Symptom Onset, Have You Had Close Contact With A Laboratory-tania garcia COVID-19 While That Case Was Ill? No MIGRATION.030 [id number] Information not available 11/02/2022 In The 14 Days Before Symptom Onset, Have You Had Close Contact With A Person Who Is Under Investigation For COVID-19 While That Person Was Ill? No MIGRATION.030 [id number] Information not available 11/02/2022 Are You Deaf Or Do You Have Serious Difficulty Hearing? No Information not available 11/06/2023 What Type Of Diet Are You Following? REGULAR MIGRATION.030 [id number] Information not available 11/02/2022 What Is The Highest Grade Or Level Of School You Have Completed Or The Highest Degree You Have Received? [id number] MIGRATION.300 [id number] Information not available 11/02/2022 Do You Have An Electrostatic Air Filter? No Information not available 01/01/2025 Have There Been Any Changes To Your Family Or Social Situation? Yes Lives With Roomate [email or web address] Information not available 01/16/2024 What Is The Fluoride Status Of Your Home? Unknown Information not available 11/06/2023 Are There Any Guns Present In Your Home? No MIGRATION.030 [id number] Information not available 11/02/2022 Do You Have A Humidifier? No Information not available 01/01/2025 Do You Use Insect Repellent Routinely? No MIGRATION.030 [id number] Information not available 11/02/2022 Where Do You Live? SingleLevelHouse [email or web address] Information not available 12/06/2023 Are You Able To Care For Yourself? No [email or web address] Information not available 12/06/2023 Are You Blind Or Do Yo Have Difficulty Seeing? No [email or web address] Information not available 12/06/2023 Are You Deaf Or Do You Have Serious Difficulty Hearing? No [email or web address] Information not available 12/06/2023 Live Alone Of With Others? With Others [email or web address] Information not available 12/06/2023 Do You Have A Medical Power Of Installation Supervisor? Yes Brother-Jone Moore Information not available 01/16/2024 Do You Have Moisture Problems In Your Home? No Information not available 01/01/2025 What Was The Date Of Your Most Recent Tobacco Screening? 07/28/2025 [email or web address] Information not available 07/28/2025 How Many Children Do You Have? 1 [email or web address] Information not available 01/16/2024 Do You Have Any Pets? Yes 2 Cats [email or web address] Information not available 01/16/2024 What Is Your Relationship Status? MIGRATION.0301 [id number] Information not available 11/02/2022 Do You Use Your Seat Belt Or Car Seat Routinely? Yes MIGRATION.0301 [id number] Information not available 11/02/2022 Are You Sexually Active? No [email or web address] Information not available 01/16/2024 Do You Have Smoke And Carbon Monoxide Detectors In Your Home? Yes MIGRATION.0301 [id number] Information not available 11/02/2022 Are You Passively Exposed To Smoke? Yes Information not available 11/06/2023 Are There Any Smokers In Your House? Yes Information not available 11/06/2023 Do You Participate In Social Media? No MIGRATION.0301 [id number] Information not available 11/02/2022 Do You Use Sunscreen Routinely? No MIGRATION.0301 [id number] Information not available 11/02/2022 Has Tobacco Cessation Counseling Been Provided? No N/a Information not available 11/06/2023 Have You Recently Traveled Abroad? No MIGRATION.0301 [id number] Information not available 11/02/2022 Do You Have Difficulty Walking Or Climbing Stairs? Yes Uses A Walker [email or web address] Information not available 01/16/2024 Are You Currently In School? No MIGRATION.0301 [id number] Information not available 11/02/2022 Do You Have Any Dietary Restrictions? No MIGRATION.0301 [id number] Information not available 11/02/2022 Sex: Unknown Functional Status Question Answer Note LastModified by Organizat ion Details LastModified Time Do you use any illicit or recreational drugs? No MIGRATION.45161 [id number] Information not available 11/02/2022 Do you or have you ever used any other forms of tobacco or nicotine? No MIGRATION.23381 19664 Information not available 11/02/2022 What is your level of alcohol consumption? None MIGRATION.71086 93383 Information not available 11/02/2022 Are you currently employed? No [email or web address] Information not available 01/16/2024 Have you been exposed to chemicals or toxins? not that aware of Information not available 01/01/2025 Do you have transportation difficulties? No [email or web address] Information not available 12/06/2023 Are you able to walk independently without assistance or assistive devices? YESASSIST wheeled walker Information not available 11/06/2023 Do you have difficulty doing errands alone? Yes [email or web address] Information not available 12/06/2023 Are you able to care for yourself independently? No has caregiver that comes 9 hours/week [email or web address] Information not available 01/16/2024 Do you have difficulty dressing, bathing, grooming, or toileting? No Information not available 11/06/2023 What is your exercise level? Occasional started doing exercises in chair 1 week ago & walks around house [email or web address] Information not available 01/16/2024 Mental Status Question Answer Note LastModified by Organizat ion Details LastModified Time Do you feel stressed (tense, restless, nervous, or anxious, or unable to sleep at night)? [id number] pt's s.o has chronic health problems and is reluctant to going to get care. This is making pt nervous. [email or web address] Information not available 02/26/2024 Do you have difficulty concentrating, remembering or making decisions? No Information not available 01/16/2024 Family History Relationship Description Onset Age of this Age Resolved Age Notes LastModified by Organization Details LastModified Time Mother Diabetes mellitus MIGRATION.026 [id number] Not available 11/02/2022 09:27:03 Mother Heart disease MIGRATION.070 [id number] Not available 11/02/2022 09:27:03 Father Hypertensive disorder MIGRATION.484 [id number] Not available 11/02/2022 09:27:03 Father Cerebrovascu lar [...] HAVE YOU BEEN HOSPITALIZED OR SEEN IN [facility] IN THE PAST YEAR ? Y [...] and Address Organization Details Recorded Time Influenza, high-dose, trivalent, PF 5 completed PEREZ Hills, [facility] [employer] [facility] 08/08/2025 16:02:44 Influenza, split virus, quadrivalent, preservative 8 completed [facility] 02/28/2023 16:18:39 Influenza, split virus, quadrivalent, preservative 9 completed Jaclyn Huizar null, [facility] [employer] [facility] 02/28/2023 16:18:39 zoster recombinant 8 completed [facility] 02/28/2023 16:18:39 Influenza, high-dose, quadrivalent, PF 0 completed [facility] 02/28/2023 16:18:39 Influenza, high-dose, quadrivalent, PF 2 completed [facility] 02/28/2023 16:18:39 Influenza, high-dose, quadrivalent, PF 1 completed [facility]her [facility] 02/28/[facility]23 16:18:39 COVID-19, mRNA, LNP-S, PF, 100 mcg/0.5mL dose or 50 mcg/0.25mL dose 1 completed [facility]her [facility] 02/28/2023 16:18:39 COVID-19, mRNA, LNP-S, PF, 100 mcg/0.5mL dose or 50 mcg/0.25mL dose 1 completed [facility]lyn London [facility] 02/28/2023 16:18:39 COVID-19, mRNA, LNP-S, PF, 100 mcg/0.5mL dose or 50 mcg/0.25mL dose 2 completed [facility]her [facility] 02/28/2023 16:18:39 COVID-19, mRNA, LNP-S, PF, 100 mcg/0.5mL dose or 50 mcg/0.25mL dose 1 completed [facility]upendra [facility] 02/28/2023 16:18:39 COVID-19, mRNA, LNP-S, bivalent, PF, 30 mcg/0.3 mL dose 2 completed [facility]her [facility] 02/28/2023 16:18:39 pneumococcal polysaccharide PPV23 6 completed Jaclyn Bhupendra [facility] 02/28/2023 16:18:39 Pneumococcal conjugate PCV 13 8 completed Jaclynher Huizar [facility] 02/28/2023 16:18:39 Influenza, high-dose, trivalent, PF 6 completed [facility]upendra [facility] 02/28/2023 16:18:39 Influenza, high-dose, trivalent, PF 9 completed [facility]lyn [place] [facility] 02/28/2023 16:18:39 Influenza, high-dose, trivalent, PF 7 completed Jaclyn Huizar null, [facility] 02/28/2023 16:18:39 Influenza, split virus, trivalent, preservative 4 completed Jaclyn Huizar null, [facility] 02/28/2023 16:18:39 Influenza, split virus, trivalent, PF 5 completed Jaclyn Huizar null, [facility] 02/28/2023 16:18:39 Influenza, high-dose, quadrivalent, PF 3 completed PEREZ Hills null, [facility] 09/16/2024 14:07:35 COVID-19, mRNA, LNP-S, PF, 50 mcg/0.5 mL 4 completed PEREZ Hills null, [facility] 09/16/2024 14:07:35 COVID-19, mRNA, LNP-S, PF, 50 mcg/0.5 mL 3 completed Susana Kimbrough RMA null, [facility] 09/16/2024 14:07:35 Influenza, high-dose, trivalent, PF 4 completed Susana Kimbrough RMA null, [facility] 09/16/2024 14:07:35 zoster recombinant 8 completed Not Available [facility] 07/28/2025 14:01:40 Past Encounters Encounter ID Performer Location Encounter Start Date Encounter Closed Date Diagnosis/Indication Diagnosis SNOMED-CT Code Diagnosis ICD10 Code Diagnosis IMO Codes Diagnosis Note [id number] Lana Tovar MD [facility] Primary [address] [place] [address] 01/11/2021 00:00:00 01/20/2021 09:33:59 [id number] [facility] [address] [place] [address] 01/26/2021 00:00:00 01/26/2021 10:59:18 [id number] Lana Tovar MD [facility] Primary Care [place] [address] [place] [address] 02/10/2021 00:00:00 03/03/2021 09:55:56 [id number] Lana Tovar MD [facility] Primary [facility] [place] [address] [place] [address] 02/17/2021 00:00:00 02/17/2021 13:19:19 [id number] Lana Tovar MD [facility] Primary Care [place] [address] [place] [address] 02/24/2021 00:00:00 03/02/2021 13:52:08 [id number] Lana Tovar MD [facility] Primary [facility] [place] [address] [place] [address] 04/20/2021 00:00:00 05/03/2021 19:35:15 [id number] Lana Tovar MD [facility] Primary [facility] [place] [address] [place] [address] 05/06/2021 00:00:00 05/06/2021 21:08:51 [id number] Lana Tovar MD [facility] Primary Care [place] [address] [place] [address] 06/09/2021 00:00:00 06/09/2021 10:51:15 [id number] Lana Tovar MD [facility] Primary [facility] [place] [address] [place] [address] 09/29/2021 00:00:00 09/29/2021 13:17:41 [id number] Lana Tovar MD [facility] Primary Care [place] [address] [place] [address] 01/05/2022 00:00:00 01/28/2022 13:08:49 [id number] Lana Tovar MD [facility] Primary [facility] [place] [address] [place] [address] 01/19/2022 00:00:00 02/01/2022 08:13:46 [id number] Lana Tovar MD [facility] Primary [facility] [place] [address] [place] [address] 02/02/2022 00:00:00 03/01/2022 14:05:51 [id number] [facility] José Powers [address] [address] [place] [address] 02/14/2022 00:00:00 02/15/2022 11:15:58 [id number] Lana Tovar MD [facility] Primary [facility] [place] [address] [place] [address] 03/15/2022 00:00:00 04/01/2022 13:22:41 [id number] Lana Tovar MD [facility] Primary [facility] [place] [address] [place] [address] 04/25/2022 00:00:00 04/25/2022 09:40:17 [id number] MIKE Linder [facility] Primary Care [place] [address] [place] [address] 05/30/2022 00:00:00 05/30/2022 12:27:10 [id number] Lana Tovar MD [facility] Primary [facility] [place] [address] [place] [address] 08/10/2022 00:00:00 09/01/2022 11:27:36 [id number] MIKE Linder [facility] Primary [facility] [place] [address] [place] [address] 11/18/2022 10:40:48 11/18/2022 11:55:25 Cough 90913490 R05.9 Pt. very congested with a wheezing cough. Covid negative.A dvised to take medication s as directed. Can continue otc medication s as needed.If no improvemen t over next 1-2 weeks will evaluate with CXR. [id number] MIKE Linder [facility] Primary Care [address] [place] [address] 12/28/2022 11:41:11 12/28/2022 12:36:50 Long-term current use of anticoagulant [id number] Z79.01 Currently on Warfarin 3mg daily. Bilateral cramp of muscle of lower limbs [id number] 8722057 R25.2 She states she has had symptoms for the last 1-2 weeks. No swelling/r edness. No pain during visit.Most likely benign muscle cramps.Esa l check labs today. Hypothyroidism 39021219 E03.9 Vitamin D deficiency 347 87003 E55.9 Renal mass 507296521 N28 .89 MRI scheduled for February. Cobalamin deficiency 190 573814 E53.8 [id number] Lana Tovar MD [facility] Primary Care [address] [place] [address] 02/20/2023 15:13:05 02/20/2023 15:49:01 Essential hypertension 50383889 I10 Long-term current use of anticoagulant 905137052 Z79.01 Vitamin D deficiency 347 30939 E55.9 Hypothyroidism 49561787 E03.9 Cobalamin deficiency 190 733674 E53.8 [id number] Lana Tovar MD [facility] Primary Care [address] [place] [address] 02/23/2023 15:44:37 02/23/2023 16:52:15 Long-term current use of anticoagulant 879424742 Z79.01 [id number] Lana Tovar MD [facility] Primary Care [address] [place] [address] 03/28/2023 15:59:26 03/28/2023 16:16:31 [id number] THI Gatica [facility] Primary Care [address] [place] [address] 04/10/2023 16:00:52 04/10/2023 17:07:19 Dizziness 508522392 R42 Has been an issue as long as she has been taking the carvedilol (not as prescribed )Will give trial meclizine Malaise and fatigue 2717 75414 R53.81 Pt was taking carvedilol 25mg BID when she was supposed to be taking 12.5mg BIDNotes no swelling in her ankles-BP seems to be stable currentlyW ill hold off on starting lasix at this time.Educa misti to take 1/2 tab of carvedilol in the morning and 1/2 tab in the evening [id number] Roque holden MD [facility] Internal Med [facility] [address] [place] [address] 11/06/2023 11:49:23 11/06/2023 12:47:14 Screening - NAD 095305718 Z13.9 C-scope: Get this if not done, [...] understand ing of the above Essential hypertension 61600902 I10 On coreg 12.5mg bidOn entresto 49-51mg bidOn spironolac tone 25mg daily Hypothyroidism 56538975 E03.9 On levothyrox ine 150mcgs dailyGet labs Persistent insomnia 1919 72963 G47.09 On trazodoneG iven by Dr Jose Luis Bae r ecurrent major depression 93693709 F33.1 On clonazepam 0.5mg tidOn venlafaxin e ER 37.5mg dailyOn vralar 1.5m daily Nonischemi c congestive cardiomyopathy 6938363654 [address] Ceja cardiology [...] one week for INr Screening mammography 24 156016 Z12.31 Screening for osteoporosis 818329902 Z13.820 Gynecologi c examination 84981226 Z01.419 Serum betty min B12 below reference range 609866484 R79.89 On b12, get labs [id number] Roque holden MD [facility] Yanni sanchez [address] [facility] [address] [facility] [place] [address] 12/06/2023 13:58:41 12/06/2023 14:47:31 Adult health examination 093497559 Z00.00 Screening for disorder 634597620 Z13.9 Anticoagulant therapy 18 1769193 Z79.01 Screening - NAD 26941001 3 Z13.9 C-scope: Get this if not [...] understand ing of the above Essential hypertension 43506816 I10 On amiodarone 200mg dailyOn coreg 12.5mg bidOn entresto 49-51mg bidOn spironolac tone 25mg daily Hypothyroidism 64210002 E03.9 On levothyrox ine 150mcgs dailyGet labs Persistent insomnia 1919 06368 G47.09 On trazodoneG iven by Dr Jose Luis Moderate r ecurrent major depression 36665844 F33.1 On clonazepam 0.5mg tidOn venlafaxin e ER 37.5mg dailyOn vralar 1.5m daily Nonischemi c congestive cardiomyopathy 4772690975 [address] Ceja cardiology [...] one week for INr Screening mammography 24 655394 Z12.31 Screening for osteoporosis 573068204 Z13.820 Gynecologi c examination 94526320 Z01.419 Serum betty min B12 below reference range 720003102 R79.89 On b12, get labs Abdominal pain 11921273 R10.[address] abd donePrior hx of surgery to the abdomen, she is not very sure why she had to have surgeryMay need to see GI [id number] Roque holden MD [facility] Yanni sanchez [address] [facility] [place] [address] 12/13/2023 14:10:26 12/13/2023 15:22:58 Screening - NAD 922766190 Z13.9 C-scope: Get this if not done, [...] understand ing of the above Essential hypertension 26718653 I10 On amiodarone 200mg dailyOn coreg 12.5mg bidOn entresto 49-51mg bid, renewed 12/13/2023 On spironolac tone 25mg daily Hypothyroidism 71909730 E03.9 On levothyrox ine 150mcgs dailyGet labs Persistent insomnia 1919 72864 G47.09 On trazodoneG iven by Dr Amaya Moderate r ecurrent major depression 15159200 F33.1 On clonazepam 0.5mg tidOn venlafaxin e ER 37.5mg dailyOn vralar 1.5m daily Nonischemi c congestive cardiomyopathy 6687882837 [address] Ceja cardiology [...] tone 25mg dailyOn coumadin Gynecologi c examination 43638249 Z01.419 Serum betty min B12 below reference range 022041864 R79.89 On b12, get labs Abdominal pain 35905883 R10.[address] abd donePrior hx of surgery to the abdomen, she is not very sure why she had to have surgeryMay need to see GI CT A/P: 12/13/2023 : Hiatal hernia, needs to see GI Hiatal hernia 73674806 K 44.9 CT A/P: 12/13/2023 : Hiatal hernia, needs to see GI Dizziness 007529983 R42 [facility] Chest 12/08/2023 S/p CTA 12/08/2023 Lung nodules noted Multiple n odules of lung 393291474 R91.8 CTA 12/08[facility] [facility] [facility] and see pulmonary Mass of neck 788783883 R 22.1 Fullness noted in the yordy supraclavi cular areaS/P CTA done 12/08/2023 Get US neck and she now will see Dr Gannon her cardiologi st [id number] Roque holden MD [facility] Yanni sanchez [address] [facility] [place] [address] 01/08/2024 11:22:08 01/08/2024 12:06:29 Screening - NAD 529711036 Z13.9 C-scope: Get this if not done, [...] understand ing of the above Essential hypertension 56891778 I10 On amiodarone 200mg dailyOn coreg 12.5mg bid, advised to not take the 25mg 1/2 tab bid dose 01/08/2024 On entresto 49-51mg bid, renewed 12/13/2023 On spironolac tone 25mg daily Hypothyroidism 57730831 E03.9 On levothyrox ine 150mcgs dailyGet labs Persistent insomnia 1919 23125 G47.09 On trazodoneG iven by Dr Amaya Moderate r ecurrent major depression 70231021 F33.1 On clonazepam 0.5mg tidOn venlafaxin e ER 37.5mg dailyOn vralar 1.5m dailySees Dr Amaya, not suicidal or homicidal Nonischemi c congestive cardiomyopathy 1800971784 [address] Ceja cardiology [...] spironolac tone 25mg dailyOn coumadin D/c from [facility] 01/03/2024 for SOB, acute respirator y failure with hypercapni a, d/t not taking her diuretic as she was gone on a road trip, d/c as next day was on RA, did see cardiology 01/02/[address] note her BNP was 3660, Rx with IV lasixShe does need 24 hour care or more nursing care, she is here with her CG [place] Gynecologi c examination 87696598 Z01.419 Serum betty min B12 below reference range 141915714 R79.89 On b12, get labs Abdominal pain 90620304 R10.[address] abd donePrior hx of surgery to the abdomen, she is not very sure why she had to have surgeryMay need to see GI CT A/P: 12/13/2023 : Hiatal hernia, needs to see Timothy [facility]child GI: To get EGD, take PPI an dfamotidin e, take OTC [id number] mg PRN for bloating, may need a course of xifaxan Hiatal hernia 82953012 K 44.9 CT A/P: 12/13/2023 : Hiatal hernia, needs to see GIToday 01/08/2024 , states that she is to get the EGD this Monday Dizziness 230296532 R42 [facility] ER[facility] Chest 12/08/2023 S/p CTA 12/08/2023 Lung nodules noted Multiple n odules of lung 706163337 R91.8 CTA 12/08/[address] [facility] chest and see pulmonary Mass of neck 585825193 R 22.1 Fullness noted in the yordy supraclavi cular areaS/P CTA done 12/08/2023 Get US neck and she now will see Dr Gannon her cardiologi st [id number] Roque holden MD [facility] Internal Med [place] [address] [place] [address] [place] [address] 01/16/2024 17:11:21 05/09/2024 11:39:35 Nonischemic congestive cardiomyopathy 5340239057 04 I42.0 Moderate r ecurrent major depression 52247663 F33.1 Osteoarthr itis of knee 544494382 M17.9 [id number] Roque holden MD [facility] Internal Med [address] [place] [address] 02/26/2024 13:42:40 05/22/2024 11:15:01 Nonischemic congestive cardiomyopathy 1694968154 04 I42.0 Essential hypertension 78725880 I10 [id number] Loreta Haque MD [facility] Pulmonolo gy [address], [address] [address] 03/20/2024 15:22:21 03/21/2024 08:27:20 Dyspnea on exertion 20325515 R06.09 R05.9 T78.40XA D89.9 Multiple n odules of lung 488425372 R91.8 [id number] Roque holden MD [facility] Internal Med [address] [place] [address] 04/17/2024 18:28:30 06/03/2024 19:29:01 Dyspnea on exertion 15795704 R06.09 R05.9 T78.40XA D89.9 Moderate r ecurrent major depression 54406559 F33.1 Essential hypertension 08865945 I10 [id number] Roque holden MD [facility] [address] [place] [address] [place] [address] 06/12/2024 14:13:38 06/12/2024 15:19:26 Screening - NAD 076108991 Z13.9 C-scope: Get this if not done, [...] understand ing of the above Essential hypertension 57494823 I10 On amiodarone 200mg dailyOn coreg 25mg bid, advised to not take the 25mg 1/2 tab bid dose 01/08/2024 On entresto 49-51mg bid, now should be on 24/[address] Ceja 06/07/2024 On spironolac tone 25mg daily Hypothyroidism 50519412 E03.9 On levothyrox ine 150mcgs daily,misael wedGet labs Persistent insomnia 1919 67416 G47.09 On trazodoneG iven by Dr Amaya Moderate r ecurrent major depression 52681723 F33.1 On clonazepam 0.5mg tidOn venlafaxin e ER 37.5mg dailyOn vraylar 1.5m dailySees Dr Amaya, not suicidal or homicidal Nonischemi c congestive cardiomyopathy 3713435585 [address] Ceja cardiology [...] spironolac tone 25mg dailyOn coumadin D/c from [facility] 01/03/2024 for SOB, acute respirator y failure [...] f/u in 3 months Gynecologi c examination 38621439 Z01.419 Serum betty min B12 below reference range 417694372 R79.89 On b12, get labs Abdominal pain 64675873 R10.[address] abd donePrior hx of [...] EGD 01/10/2024 : Dr Fairchild Hiatal hernia 47160206 K 44.9 CT A/P: 12/13/2023 : Hiatal hernia, needs to see GI S/p EGD 01/10/2024 Dizziness 549956304 R42 [facility] Chest 12/08/2023 S/p CTA 12/08/2023 Lung nodules noted Multiple n odules of lung 081267910 R91.8 CTA 12/08[facility]2023 [facility] 04/22/[facility]24 : Law Haque 03/20/2024 Mass of neck 905170731 R 22.1 Fullness noted in the yordy supraclavi cular areaS/P CTA done 12/08/2023 Get US neck and she now will see Dr Gannon her cardiologi st US neck 04/22/2024 : Benign Dental caries 11235621 K 02.9 Dental caries noted on the upper teethDo not take the fosamax 2 weeks prior to dental procedures !Get on augmentin as per requestRef er to dental surgeon as per her requestEsa blanc have to discuss with her cardiologi st regarding use of coumadin [id number] Roque holden MD [facility] Kelsey sanchez [address] [facility] [address] [place] [address] 09/16/2024 13:57:07 09/16/2024 14:42:29 Screening - NAD 839857920 Z13.9 C-scope: Get this if not done, [...] understand ing of the above Essential hypertension 59818940 I10 On amiodarone 200mg dailyOn coreg 25mg bid 1/[address] Huitron n entresto 49-51mg bid, now should be on 24/ bid as per Dr Ceja 06/07/2024 On spironolac tone 25mg dailyOn K Hypothyroidism 18351770 E03.9 On levothyrox ine 150mcgs daily,misael wedGet labs Persistent insomnia 1919 18151 G47.09 On trazodone 150mg 1.[address] Amaya Moderate r ecurrent major depression 27046274 F33.1 On clonazepam 0.5mg tidOn venlafaxin e ER 37.5mg dailyOn vraylar 1.5m dailySees Dr Amaya, not suicidal or homicidal Nonischemi c congestive cardiomyopathy 5166665643 [address] Ceja cardiology [...] spironolac tone 25mg dailyOn coumadin D/c from [facility] 01/03/2024 for SOB, acute respirator y failure [...] with her cardiologi st Gynecologi c examination 40941044 Z01.419 Serum betty min B12 below reference range 013387578 R79.89 On b12, get labs Abdominal pain 52186635 R10.[address] abd donePrior hx of [...] EGD 01/10/2024 : Dr Fairchild Hiatal hernia 44986360 K 44.9 CT A/P: 12/13/2023 : Hiatal hernia, needs to see GI S/p EGD 01/10/2024 Dizziness 601759489 R42 [facility] Chest 12/08/2023 S/p CTA 12/08/2023 Lung nodules noted Multiple n odules of lung 957248346 R91.8 CTA 12[facility]08[facility]20[facility] 04/22/[facility] : NegDr Haque 03/20/2024 Mass of neck 190192069 R 22.1 Fullness noted in the yordy supraclavi cular areaS/P CTA done 12/08/2023 Get US neck and she now will see Dr Gannon her cardiologi st US neck 04/22/2024 : Benign Dental caries 08288975 K 02.9 Dental caries noted on the [...] well Pain of ri ght hip joint 0413270534 97769 M25.551 S/p fallSeen in the UC, treated with gabapentin and flexerill, not taking at this timeGet on MDP, get Xrays and refer to Dr Prince as she does not want to be treated in [facility] Tear of skin 877622653 T 14.8XXA L forearmHea ling, no bleeding noted, no swelling or redness, advised to keep area clean and dry [id number] Roque holden MD [facility] [address] [place] [address] 10/14/2024 14:46:11 10/14/2024 16:10:33 Screening - NAD 880845385 Z13.9 C-scope: Get this if not done, [...] understand ing of the above Essential hypertension 65654374 I10 On amiodarone 200mg dailyOn coreg 25mg daily Dr Huitron n entresto 49-51mg bid, now should be on 24/ bid as per Dr Ceja 06/07/2024 On spironolac tone 25mg dailyOn KSees Dr Gannon Hypothyroidism 65150827 E03.9 On levothyrox ine 150mcgs daily,misael wedGet labs Persistent insomnia 1919 98122 G47.09 On trazodone 150mg 1.[address] Amaya Moderate r ecurrent major depression 82540739 F33.1 On clonazepam 0.5mg tidOn venlafaxin e ER 37.5mg dailyOn vraylar 1.5m dailySees Dr Amaya, not suicidal or homicidal Nonischemi c congestive cardiomyopathy 0172906773 [address] Ceja cardiology [...] spironolac tone 25mg dailyOn coumadin D/c from [facility] 01/03/2024 for SOB, acute respirator y failure [...] f/u in 6 months Gynecologi c examination 91720023 Z01.419 Serum betty min B12 below reference range 332901717 R79.89 On b12, get labs Abdominal pain 67861334 R10.[address] abd donePrior hx of surgery to the abdomen, she is not very sure why she had to have surgeryMay need to see GI CT A/P: 12/13/2023 : Hiatal hernia, needs to see Timothy [facility]child GI: To get EGD, take PPI an dfamotidin e, take OTC [id number] mg PRN for bloating, may need a course of xifaxan EGD 01/10/2024 : Dr Fairchild Hiatal hernia 47698368 K 44.9 CT A/P: 12/13/2023 : Hiatal hernia, needs to see GI S/p EGD 01/10/2024 Dizziness 995501535 R42 [facility] Chest 12/08/2023 S/p CTA 12/08/2023 Lung nodules noted Multiple n odules of lung 643900669 R91.8 CTA 12/08[facility]2023 [facility] 04/22/2024 : Law Haque 03/20/2024 Mass of neck 836827925 R 22.1 Fullness noted in the yordy supraclavi cular areaS/P CTA done 12/08/2023 Get US neck and she now will see Dr Gannon her cardiologi st US neck 04/22/2024 : Benign Dental caries 62650788 K 02.9 Dental caries noted on the [...] well Pain of ri ght hip joint 7827275736 66529 M25.551 S/p fallSeen in the UC, treated with gabapentin and flexerill, not taking at this timeGet on MDP, get Xrays and refer to Dr Prince as she does not want to be treated in [facility] OV 10/14/2024 :Xr hip: 09/16/2024 : Neg Tear of skin 907178446 T 14.8XXA L forearmHea ling, no bleeding noted, no swelling or redness, advised to keep area clean and dry Chronic ki dney disease 342631511 N18.9 Get a referral to nephrology Hyperkalemia 59786163 E8 7.5 Repeat the K [id number] Roque holden MD [facility] Primary Care [facility] [address] [facility] [address] [place] [address] 11/18/2024 10:13:18 11/18/2024 12:24:26 Screening - NAD 206312495 Z13.9 C-scope: Get this if not done, [...] understand ing of the above Essential hypertension 89793688 I10 On amiodarone 200mg daily, understand s the side effects for this medication , including thyroid abnormalit iesOn coreg 25mg daily Dr Elana porras entresto 49-51mg bid, now should be on bid as per Dr Ceja 06/07/2024 On spironolac tone 25mg dailyOn KSees Dr Gannon Hypothyroidism 24537056 E03.9 On levothyrox ine 150mcgs daily,misael wedGet labs Persistent insomnia 1919 95979 G47.09 On trazodone 150mg 1.[address] Jose Luis Moderate r ecurrent major depression 00285391 F33.1 On clonazepam 0.5mg tidOn venlafaxin e ER 37.5mg dailyOn vraylar 1.5m dailySees Dr Amaya, not suicidal or homicidal Nonischemi c congestive cardiomyopathy 7312547981 [address] Ceja cardiology [...] spironolac tone 25mg dailyOn coumadin D/c from [facility] 01/03/2024 for SOB, acute respirator y failure [...] INR, since the INR machine not in [facility] office she will come in tomorrow to [facility] in [place] Gynecologi c examination 31104078 Z01.419 Serum betty min B12 below reference range 820676919 R79.89 On b12, get labs Abdominal pain 54915637 R10.[address] abd donePrior hx of surgery to the abdomen, she is not very sure why she had to have surgeryMay need to see GI CT A/P: 12/13/2023 : Hiatal hernia, needs to see Timothy [facility]child GI: To get EGD, take PPI an dfamotidin e, take OTC [id number] mg PRN for bloating, may need a course of xifaxan EGD 01/10/2024 : Dr Fairchild Hiatal hernia 62054152 K 44.9 CT A/P: 12/13/2023 : Hiatal hernia, needs to see GI S/p EGD 01/10/2024 Dizziness 023474223 R42 [facility] Chest 12/08/2023 S/p CTA 12/08/2023 Lung nodules noted Multiple n odules of lung 193358491 R91.8 CTA 12/08/2023 [facility] 04/22/2024 : Law Haque 03/20/2024 Mass of neck 285838595 R 22.1 Fullness noted in the yordy supraclavi cular areaS/P CTA done 12/08/2023 Get US neck and she now will see Dr Gannon her cardiologi st US neck 04/22/2024 : Benign Dental caries 46199757 K 02.9 Dental caries noted on the [...] well Pain of ri ght hip joint 8974457749 84892 M25.551 S/p fallSeen in the UC, treated with gabapentin and flexerill, not taking at this timeGet on MDP, get Xrays and refer to Dr Prince as she does not want to be treated in [facility] OV 10/14/2024 :Xr hip: 09/16/2024 : Neg Tear of skin 295963584 T 14.8XXA L forearmHea ling, no bleeding noted, no swelling or redness, advised to keep area clean and dry Chronic ki dney disease 738085270 N18.9 Get a referral to nephrology Hyperkalemia 38416050 E8 7.5 Repeat the CMP Nausea 516356967 R11.0 Is on chronic use of zofran, [...] today 11/18/2024 Acute urin sherrill tract infection 717184890 N39.0 Unable to provide any urine for UAStart on amoxicilli n 500mg po tidNotify if not better Atrial fibrillation 4943 6004 I48.91 [id number] Loreta Haque MD [facility] Pulmonolo gy [address] [address] 01/01/2025 14:42:18 01/03/2025 12:15:30 Dyspnea on exertion 18688614 R06.09 R05.9 T78.40XA D89.9 Mild chron ic obstructive pulmonary disease 028074511 J44.9 339647 [id number] Roque holden MD [facility] Primary Care [facility] [address] [facility] [address] [place] [address] 01/13/2025 14:26:53 01/13/2025 16:02:13 Screening - NAD 618235333 Z13.9 C-scope: Get this if not done, [...] her cardiology , told to come to [facility] for her INR Essential hypertension 11180118 I10 On amiodarone 200mg daily, understand s the side effects for this medication , including thyroid abnormalit iesOn coreg 25mg daily Dr Huitron n entresto 24/[address] Ceja 06/07/2024 On lasixOn spironolac tone 25mg dailyOn KSees Dr Gannon as per her history 01/13/2025 , she does have an apt in 02/2025 Hypothyroidism 47474446 E03.9 On levothyrox ine 150mcgs daily,misael wedGet labs Persistent insomnia 1919 26656 G47.09 On trazodone 150mg 1.[address] Amaya Moderate r ecurrent major depression 87080990 F33.1 On clonazepam 0.5mg tidOn venlafaxin e ER 37.5mg dailyOn vraylar 1.5m dailySees Dr Amaya, not suicidal or homicidal Nonischemi c congestive cardiomyopathy 0939830325 [address] Ceja cardiology [...] spironolac tone 25mg dailyOn coumadin D/c from [facility] 01/03/2024 for SOB, acute respirator y failure [...] INR, since the INR machine not in [facility] office she will come in tomorrow to [facility] in [place] OV 01/13/2025 : Get INR as scheduled, will come to [facility] on 01/15/2025 Gynecologi c examination 10110772 Z01.419 Serum betty min B12 below reference range 836674490 R79.89 On b12, get labs Abdominal pain 68482306 R10.[address] abd donePrior hx of surgery to the abdomen, she is not very sure why she had to have surgeryMay need to see GI CT A/P: 12/13/2023 : Hiatal hernia, needs to see Timothy [facility] GI: To get EGD, take PPI an dfamotidin e, take OTC [id number] mg PRN for bloating, may need a course of xifaxan EGD 01/10/2024 : Dr Fairchild Hiatal hernia 86639251 K 44.9 CT A/P: 12/13/2023 : Hiatal hernia, needs to see GI S/p EGD 01/10/2024 Dizziness 378157920 R42 [facility] Chest 12/08/2023 S/p CTA 12/08/2023 Lung nodules noted Multiple n odules of lung 466105606 R91.8 CTA 12[facility]08[facility]2023 [facility] 04/22/[facility]24 : Law Haque 03/20/2024 Dr Haque 01/22/2025 next apt On albuterolS ee Dr Haque Mass of neck 325248954 R 22.1 Fullness noted in the yordy supraclavi cular areaS/P CTA done 12/08/2023 Get US neck and she now will see Dr Gannon her cardiologi st US neck 04/22/2024 : Benign Dental caries 18447874 K 02.9 Dental caries noted on the [...] well Pain of ri ght hip joint 0010530769 05053 M25.551 S/p fallSeen in the UC, treated with gabapentin and flexerill, not taking at this timeGet on MDP, get Xrays and refer to Dr Prince as she does not want to be treated in [facility] OV 10/14/2024 :Xr hip: 09/16/2024 : Neg Tear of skin 653555391 T 14.8XXA L forearmHea ling, no bleeding noted, no swelling or redness, advised to keep area clean and dry Chronic ki dney disease 361169700 N18.[address] Dela Cruz has given her the zofran Hyperkalemia 62951594 E8 7.5 Repeat the CMP Nausea 952570775 R11.0 Is on chronic use of zofran, advised that there are severe side effects of such daily uses of this medication , including but not limited to [facility] complaints Explained to her and her son Pippa that she should also discuss with her psychiatri st if the medication s for her psychiatry conditions can cause nausea for eg [place]lar advised NOT to stop any medication s till she discusses this with her psychiatri Rashida states that her mother 'likes to doctor herself'Sh e should see her GI, s/p EGD done already, GI referral provided to her today 11/18/2024 OV 01/13/2025 : Is NOT wanting to see GI Screening mammography 24 177434 Z12.31 95777087 Eruption 475689360 R21 19168 Red itchy rash in the groinNot examined, will start on trim-nysta tin crean [id number] Loreta Haque MD [facility] [place] [address] [facility], [facility] [address] [place] [address] 03/13/2025 14:23:19 03/13/2025 16:02:09 Mild chronic obstructive pulmonary disease 712270146 J44.9 386940 [id number] Roque holden MD [facility] Primary [facility] [address] [facility] [address] [place] [address] 04/21/2025 14:25:03 04/21/2025 15:19:23 Screening - NAD 828488728 Z13.9 C-scope: Get this if not done, [...] understand ing of the above Essential hypertension 60689901 I10 On amiodarone 200mg daily, understand s the side effects for this medication , including thyroid abnormalit iesOn coreg 25mg daily Dr Elana porras entresto bid as per Dr Ceja 06/07/2024 , not taking thisOn losartan 50mg daily as per Dr Elana porras lasixOn spironolac tone 25mg dailyOn K Sees Dr Gannon Hypothyroidism [id number] E03.9 On Unithroid 150mcgs daily,misael wedGet labs Persistent insomnia 1919 89574 G47.09 On trazodone 150mg 1.[address] Amaya Moderate r ecurrent major depression 91716172 F33.1 On clonazepam 0.5mg tidOn venlafaxin e ER 37.5mg dailyOn vraylar 1.5m dailySees Dr Amaya, not suicidal or homicidal Nonischemi c congestive cardiomyopathy [id number] [address] Ceja cardiology [...] spironolac tone 25mg dailyOn coumadin D/c from [facility] 01/03/2024 for SOB, acute respirator y failure [...] INR, since the INR machine not in [facility] [place] office she will come in tomorrow to [facility] in [place] OV 01/13/2025 : Get INR as scheduled, will come to [facility] on 01/15/2025 OV 04/21/2025 :[facility] d/c 03/31/2025 , treated for CHF as was not taking her medication s as per d/c summary, also treated for pneumoniaN ow has dizziness, will now refer to ER and call placed to ER and case d/w the ER Gynecologbutch c examination 82642980 Z01.419 Serum betty min B12 below reference range 962475426 R79.89 On b12, get labs Abdominal pain 41825208 R10.[address] abd donePrior hx of surgery to the abdomen, she is not very sure why she had to have surgeryMay need to see GI CT A/P: 12/13/2023 : Hiatal hernia, needs to see [facility] GI: To get EGD, take PPI an dfamotidin e, take OTC [id number] mg PRN for bloating, may need a course of xifaxan EGD 01/10/2024 : Dr Fairchild Hiatal hernia 96211869 K 44.9 CT A/P: 12/13/2023 : Hiatal hernia, needs to see GI S/p EGD 01/10/2024 Dizziness 891901619 R42 [facility] Chest 12/08/2023 S/p CTA 12/08/2023 Lung nodules noted Multiple n odules of lung 108696723 R91.8 [facility] : Law Haque 03/20/2024 Dr Haque 01/22/2025 next apt On albuterolS ee Dr Haque Mass of neck 756977514 R 22.1 Fullness noted in the yordy supraclavi cular areaS/P CTA done 12/08/2023 Get US neck and she now will see Dr Gannon her cardiologi st US neck 04/22/2024 : Benign Dental caries 07201810 K 02.9 Dental caries noted on the [...] well Pain of ri ght hip joint 3329992300 70580 M25.551 S/p fallSeen in the UC, treated with gabapentin and flexerill, not taking at this timeGet on MDP, get Xrays and refer to Dr Prince as she does not want to be treated in [facility] OV 10/14/2024 :Xr hip: 09/16/2024 : Neg Tear of skin 749001147 T 14.8XXA L forearmHea ling, no bleeding noted, no swelling or redness, advised to keep area clean and dry Chronic ki dney disease 233106292 N18.[address] Dela Cruz has given her the zofran Hyperkalemia 43814384 E8 7.5 Repeat the CMP Nausea 807458203 R11.0 Is on chronic use of zofran, [...] wanting to see GI Screening mammography 24 967815 Z12.31 39243666 Eruption 730984277 R21 76122 Red itchy rash in the groinNot examined, will start on trim-nysta tin crean [id number] Roque holden MD [facility] [address] [place] [address] 05/07/2025 11:39:42 05/07/2025 13:00:48 Screening - NAD 066831393 Z13.9 C-scope: Get this if not done, [...] understand ing of the above Essential hypertension 99970644 I10 On amiodarone 200mg daily, understand s the side effects for this medication , including thyroid abnormalit iesOn coreg 25mg daily Dr Huitron n entresto 24/[address] Ceja 06/07/2024 , not taking thisOn losartan 50mg daily as per Dr Ceja, this was d/c 04/25/2025 by the hospitalis tOn lasixOn spironolac tone 25mg dailyOn K Sees Dr Gannon Hypothyroidism 02187397 E03.9 On Unithroid 150mcgs daily,misael wedGet labs Persistent insomnia 1919 78066 G47.09 On trazodone 150mg 1.[address] Amaya Moderate r ecurrent major depression 34031161 F33.1 On clonazepam 0.5mg tidOn venlafaxin e ER 37.5mg dailyOn vraylar 1.5m dailySees Dr Amaya, not suicidal or homicidal Nonischemi c congestive cardiomyopathy 7850257416 [address] Ceja cardiology [...] spironolac tone 25mg dailyOn coumadin D/c from [facility] 01/03/2024 for SOB, acute respirator y failure [...] INR, since the INR machine not in [facility] office she will come in tomorrow to [facility] in [place] OV 01/13/2025 : Get INR as scheduled, will come to [facility] on 01/15/2025 OV 04/21/2025 :[facility] d/c 03/31/2025 , treated for CHF as [...] hospitalIN R also ordered Gynecologi c examination 81052173 Z01.419 Serum betty min B12 below reference range 062145105 R79.89 On b12, get labs Abdominal pain 58574294 R10.[address] abd donePrior hx of surgery to the abdomen, she is not very sure why she had to have surgeryMay need to see GI CT A/P: 12/13/2023 : Hiatal hernia, needs to see [facility] GI: To get EGD, take PPI an dfamotidin e, take OTC [id number] mg PRN for bloating, may need a course of xifaxan EGD 01/10/2024 : Dr Fairchild Hiatal hernia 29685262 K 44.9 CT A/P: 12/13/2023 : Hiatal hernia, needs to see GI S/p EGD 01/10/2024 Dizziness 475547861 R42 [facility] Chest 12/08/2023 S/p CTA 12/08/2023 Lung nodules noted Multiple n odules of lung 254975404 R91.8 [facility] 04/[facility] : NegDr Shabnam 03/20/2024 Dr Haque 01/22/2025 next aptDr Shabnam 03/13/2025 , next 03/12/[address] Haque Mass of neck 411432615 R 22.1 Fullness noted in the yordy supraclavi cular areaS/P CTA done 12/08/2023 Get US neck and she now will see Dr Gannon her cardiologi st US neck 04/22/2024 : Benign Dental caries 53979960 K 02.9 Dental caries noted on the [...] well Pain of ri ght hip joint 9028381813 72374 M25.551 S/p fallSeen in the UC, treated with gabapentin and flexerill, not taking at this timeGet on MDP, get Xrays and refer to Dr Prince as she does not want to be treated in [facility] OV 10/14/2024 :Xr hip: 09/16/2024 : Neg Tear of skin 067467495 T 14.8XXA L forearmHea ling, no bleeding noted, no swelling or redness, advised to keep area clean and dry Chronic ki dney disease 963552246 N18.[address] Dela Cruz has given her the zofran Hyperkalemia 04710252 E8 7.5 Repeat the CMP Nausea 263176862 R11.0 Is on chronic use of zofran, advised that there are severe side effects of such daily uses of this medication , including but not limited to [facility] complaints Explained to her and her son Pippa that she should also discuss with her psychiatri st if the medication s for her psychiatry conditions can cause nausea for eg Ramseslar advised NOT to stop any medication s till she discusses this with her psychiatri Rashida states that her mother 'likes to doctor herself'Sh e should see her GI, s/p EGD done already, GI referral provided to her today 11/18/2024 OV 01/13/2025 : Is NOT wanting to see GI OV 05/07/2025 :Still has nauseaUA: Cloudy and orange with Addendum: 05/08/2025 :[facility] 05/07/2025 , d/c with diagnosis of UTI Screening mammography 24 449048 Z12.31 84929652 Transition of care 78373 23028 105 Z75.8 History of cerebrovascular accident 861614267 Z86.73 460817 OV 05/07/2025 :As per D/c summary from [facility] could not get a MRI and as per patient now is to get a MRI at [facility] but this has not yet happened Patient still has dizziness, has also noted falls in her bathroomSh e is hypotensiv e and bradycardi cDid recommend she proceed to the ER todayDid discuss with Gisselllexx her CG and he wanted initially to take her in his car, but patient did decide to call 911, case discussed with the EMTsCall also placed with the ER MD at [facility], he seemed reluctant to accept this patient stating that 'we do not do MRI with pacemaker and she would need to be transferre d', discussed with the ER MD that it would be his prerogativ e to decide if the patient needs further care in another facility, then the ER MD stated that she should be sent via [facility], explained to him that the CG had initially refused but now will do so Urinary symptoms 6105861 08 R39.9 51632657 [id number] Roque holden MD [facility] [address] [place] [address] 07/28/2025 13:59:44 07/28/2025 15:18:47 Screening - NAD 901365383 Z13.9 C-scope: Get this if not done, [...] understand ing of the above Essential hypertension 59073336 I10 On amiodarone 200mg daily, understand s the side effects for this medication , including thyroid abnormalit iesOn coreg 25mg daily Dr Huitron n entresto 24/[address] Ceja 06/07/2024 , not taking thisOn losartan 50mg daily as per Dr Ceja, this was d[facility]25/[facility] tOn lasixOn spironolac tone 25mg dailyOn K Sees Dr Gannon Hypothyroidism 90094026 E03.9 On Unithroid 150mcgs daily,misael wedGet labs Persistent insomnia 1919 71700 G47.09 On trazodone 150mg 1.[address] Amaya Moderate r ecurrent major depression 30739978 F33.1 On clonazepam 0.5mg tidOn venlafaxin e ER 37.5mg dailyNow on mirtrazpin e 15mg at bedtimeOn vraylar 1.5m dailySees Dr Amaya, not suicidal or homicidal Nonischemi c congestive cardiomyopathy 9107037989 [address] Ceja cardiology , last OV 08/10/2023 , f/u in 3 monthsS/p life vest /p ICD in [place] BapStarted on entresto, amiodarone On amiodarone 200mg dailyOn lasix 20mg 1/2 tabOn coreg 12.5mg bidOn losartan 50mg dailyOn hydralazin e 10mg bidNot on entresto 49-51mg bidOn spironolac tone 25mg dailyOn coumadin D/c from [facility] 01/03/2024 for SOB, acute respirator y failure [...] INR, since the INR machine not in [facility] office she will come in tomorrow to [facility] in [place] OV 01/13/2025 : Get INR as scheduled, will come to [facility] on 01/15/2025 OV 04/21/2025 :[facility] d/c 03/31/2025 , treated for CHF as [...] recommenda tion from hospitalIN R also ordered OV 07/28/2024 :D/c [facility] 07/17/2025 and as per d/c note INR was subtherape utic and given coumadin Gynecologi c examination 40654371 Z01.419 Serum betty min B12 below reference range 291951919 R79.89 On b12, get labs Abdominal pain 19611710 R10.[address] abd donePrior hx of surgery to the abdomen, she is not very sure why she had to have surgeryMay need to see GI CT A/P: 12/13/2023 : Hiatal hernia, needs to see [facility] GI: To get EGD, take PPI an dfamotidin e, take OTC [id number] mg PRN for bloating, may need a course of xifaxan EGD 01/10/2024 : Dr Gurinder Hardingatal hernia 84858174 K 44.9 CT A/P: 12/13/2023 : Hiatal hernia, needs to see GI S/p EGD 01/10/2024 Dizziness 232500025 R42 [facility] Chest 12/08/2023 S/p CTA 12/08/2023 Lung nodules noted Multiple n odules of lung 734495063 R91.8 CTA 12[facility] 04/[facility] : NegDr Haque 03/20/2024 Dr Haque 01/22/2025 next aptDr Shabnam 03/13/2025 , next 03/12/[address] Haque Mass of neck 372421308 R 22.1 Fullness noted in the yordy supraclavi cular areaS/P CTA done 12/08/2023 Get US neck and she now will see Dr Gannon her cardiologi st US neck 04/22/2024 : Benign Dental caries 56059586 K 02.9 Dental caries noted on the [...] well Pain of ri ght hip joint 1416935318 26488 M25.551 S/p fallSeen in the UC, treated with gabapentin and flexerill, not taking at this timeGet on MDP, get Xrays and refer to Dr Prince as she does not want to be treated in [facility] OV 10/14/2024 :Xr hip: 09/16/2024 : Neg Tear of skin 279426811 T 14.8XXA L forearmHea ling, no bleeding noted, no swelling or redness, advised to keep area clean and dry Chronic ki dney disease 920931498 N18.[address] Dela Cruz has given her the zofran Hyperkalemia 42314674 E8 7.5 Repeat the CMP Nausea 609246277 R11.0 Is on chronic use of zofran, advised that there are severe side effects of such daily uses of this medication , including but not limited to [facility] complaints Explained to her and her son Pippa that she should also discuss with her psychiatri if the medication s for her psychiatry [...] nauseaUA: Cloudy and orange with Addendum: 05/08/2025 :[facility] 05/07/2025 , d/c with diagnosis of UTI Screening mammography 24 376515 Z12.31 71800151 Transition of care 78611 87103 105 Z75.8 History of cerebrovascular accident 478207841 Z86.73 896106 OV 05/07/2025 :As per D/c summary from [facility] could not get a MRI and as per patient now is to get a MRI at [facility] but this has not yet happened Patient still has dizziness, has also noted falls in her bathroomSh e is hypotensiv e and bradycardi cDid recommend she proceed to the ER todayDid discuss with Pippa her CG and he wanted initially to take her in his car, but patient did decide to call 911, case discussed with the EMTsCall also placed with the ER MD at [facility], he seemed reluctant to accept this patient stating that 'we do not do MRI with pacemaker and she would need to be transferre d', discussed with the ER MD that it would be his prerogativ e to decide if the patient needs further care in another facility, then the ER MD stated that she should be sent via [facility], explained to him that the CG had initially refused but now will do so OV 07/28/2025 :MRI 07/15/2025 : Arachnoid cystWill refer to neurology Adult fail ure to thrive syndrome 862965552 R62.7 962230 D/c from [facility] 07/17/2025 to home with HHGet labs and she should keep all her apts especially with nephrology and her cardiologi st Tardive dyskinesia 35118 9007 G24.01 03745 Does have lip smacking and finger rollingShe does see her psychiatri st Dr Amaya Goals Section Goal Description Progress Status Start [...] Member ID [id number] Member ID Guarantor Name 08/11/2025 1 [facility] - MEDICARE COMPLETE - CHOICE PLAN 2 (MEDICARE REPLACEMENT REGIONAL PPO) [id number] Yi Martino [id number] Yi Martino Notes Date Note Type Note Provider Name and Address Organization Details Recorded Time 01/13/2025 text/html OV 11/06/2023: Here to establish [...] and is on albuterol Roque Reddy MD [address] [place] [address], [address], [address], [facility] [employer] 01/14/2025 19:24:11 03/13/2025 text/html Primary care/Referring provider: [...] changing clothesAlleviating factors: rest Modified [employer] ([employer]) Dyspnea Scale - Grade 2Grade 0 [...] slight chance of dozing. Loreta Haque MD [address] [place] [address], [place] [address], [place], [address], [facility] [employer] 03/13/2025 15:21:35 04/21/2025 text/html OV 11/06/2023: Here [...] is doing well, did get her INR Suzan is recently d/c from hospital for CHFShe has also sustained a fall and now notes back pain, was seen in the UC and was told she had a contusion Roqeu Reddy MD [address] [facility], [address], [place], [address], [facility] 04/21/2025 16:03:43 05/07/2025 text/html OV 11/06/2023: Here [...] is doing well, did get her INR [facility] also [facility] a [facility] and now notes back pain, was seen in the UC and was told she had a contusion OV 05/07/2025:Here for f/u apt, s/p d/c from [facility] 04/25/2025Yadiel has dizziness, states that yesterday when she was in her shower she got dizzy and fell backNow also has noted supra pubic abdominal pain, states that her pain is quite intense, also has nausea but no vomiting, she denies any fevers or chillsStates that she was to see cardiology but has not been contacted by Dr Gannon her pst specialist, she does state that in the last hospital stay her losartan was d/cShe also states that she did have a heart monitor put in and taken away upon d/c but was not told what her report wasAlysa also was told she may have a stroke but has not been contacted by [facility] for her MRI, as per her d/c note she did have a CT head but now needed a MRI but this could not be done as she has a pacemaker Roque Reddy MD [address] [facility], [facility] [address], [place], [address], [place] [facility] [employer] [facility] [employer] 06/01/2025 17:06:40 07/28/2025 text/html OV 11/06/2023: Here to establish carePast [...] 05/07/2025:Here for f/u apt, s/p d/c from [facility] 04/25/2025Still has dizziness, states that yesterday when she was in her shower she got dizzy and fell backNow also has noted supra pubic abdominal pain, states that her pain is quite intense, also has nausea but no vomiting, she denies any fevers or chillsStates that she was to see cardiology but has not been contacted by Dr Gannon her pst specialist, she does state that in the last hospital stay her losartan was d/cShe also states that she did have a heart monitor put in and taken away upon d/c but was not told what her report wasAlysa also was told she may have a stroke but has not been contacted by [facility] for her MRI, as per her d/c note she did have a CT head but now needed a MRI but this could not be done as she has a pacemaker OV 07/28/2025: Here for her f/u apt, she is again s/p d/c from hospitalShe is here with Pippa, she states that she is doing well today but is bothered by her involuntary hand movements and mouth movements Roque Reddy MD [address] [place] [address], [facility] [address], [place], [address], [place] [facility] 07/28/2025 17:40:38 OBGyn Episode No OBEpisode recorded.
--- OUTSIDE RECORDS SUMMARY | 2025-08-14 19:36 | XMS_ITS | Continuity of Care Document ---
Author Organization [place] - [facility], [facility] Primary [facility] [place] Address [address] [facility] [place] [address] Care Team Providers Care Wire Splicer Name Role Phone MASOUD REDDY Primary Care Provider JULIANNE WRIGHT Referring Provider PEDRO AMAYA Psychiatrist LORETA HAQUE Cyber Forensic Specialist JENNIFFER ROJAS Identification And Records Commander [phone] EVON CEJA Cardiac Surgeon [phone] Assessment Encounter Date Assessment Date Assessment LastModified by Organization Details LastModified Time 07/28/2025 07/28/2025 01/02/2024: ER labs WBC 16.5H Cr 1.10, Gluc 218 Trop 0.059H Xr chest mild pulm edema 06/12/2024: TG 192 K 3.4, gluc 62, BUN 22, Cr 1.83, GFR 27, AST 63 MCV 105.0 09/16/2024: K 5,4, BUN 27, Cr 1.51, GFR 33, ALT 40 TG 231 MCV 105 04/18/2025: INR 2.9, did discuss with the HH RN 04/21/2025: [facility] BUN 25, Cr 1.19, GFR 44, AST/ALT 53/57 WBC 10.4, MCV 102.4 07/11/2025: [facility] GFR 51, AST/ALT 38/40 I have reconciled the patient's medications post their discharge from inpatient facility. I have reconciled the patient's medications post their discharge from inpatient facility. [email or web address] Not available 07/28/2025 17:15:58 Plan of Treatment Reminders Order Date Submit Date Provider Last Modified By Organization Details Last Modified Time Details Appointments Any 15 2025 02:45P M Masoud santoyo MD Not available Not available Not available Any 15 2025 02:00P M Loreta Haque MD Not available Not available Not available Lab urinalysi s, complete [address] (Lab), [address] [place] [address] [address], [place], [address], 08/06/2025 08:34:24 culture, urine + sensitivi ty [address] (Lab), [address] [place] [address] [address], [place], [address], 07/30/2025 09:36:37 CMP, serum or plasma [address] (Lab), [address] [place], [address], 07/30/2025 09:36:36 lipid panel, serum [address] (Lab), [address] [place], [address], 07/30/2025 09:36:36 CBC w/ auto diff [address] (Lab), [address] [place], [address], 07/30/2025 09:36:37 TSH, serum or plasma [address] (Lab), [address] [place], [address], 07/30/2025 09:36:37 vitamin B12 + folate, serum or blood [address] (Lab), [address] [place], [address], 07/30/2025 09:36:[address] referral - Please call patient to schedule. 2024 025 BROWN Castorena MD, [address] [facility], [address], [place], [address], 07/29/2025 17:40:28 gynecolog ist referral - Please call patient to schedule an appointme nt. Thank you. 2024 025 Johanne Conway MD, [address] [facility] [address], [address], [place], [address], 07/29/2025 17:15:12 nephrolog ist referral - Please call patient to schedule an appointme nt. Thank you. 2024 025 [email or web address] Adelso Causey MD, [address], [address], [place], [address], 07/29/2025 17:15:12 cardiolog ist referral - Please call patient to schedule an appointme nt. Thank you. 2024 025 [email or web address] Evon Ceja MD, [address], [address], [place], [address], 07/29/2025 17:15:27 Procedures None recorded. Surgeries None recorded. Imaging MAMMO, screening , bilateral - Please call patient to schedule. 2024 025 [facility] ([facility]), [address] [facility] [place], [address], 07/29/2025 09:49:46 Medication Orders None recorded. Patient TargetsNo targets recorded. Patient Instructions Encounter Date Encounter Id Patient Instructions Last Modified By Organization Details Last Modified Time 07/28/2025 [id number] Thank you for your visit to our [...] Medical Equipment needed: Billing Guidelines CPT code 89724- Transitional Care Management services with moderate medical decision complexity (bxxj-dh-dscj visit within 14 days of discharge). CPT code 22497- Transitional Care Management services with high medical decision complexity (turg-xu-usru visit within 7 days of discharge). [email or web address] Not available 07/28/2025 14:53:39 Reason for Referral Clipping Marker Referral for Gy necologic examination Please call patient to schedule an appointment. Thank you. Referring Physician: Masoud Reddy, Internal Medicine, Encounter Date: 07/28/2025 Truck Manager Referral for Ch ronic kidney disease Please call patient to schedule an appointment. Thank you. Referring Physician: Masoud Reddy Internal Medicine, Encounter Date: 07/28/2025 Filler Feeder Referral for Es sential hypertension Please call patient to schedule an appointment. Thank you. Referring Physician: Masoud Reddy Internal Medicine, Encounter Date: 07/28/2025 Neurologist Referral for His tory of cerebrovascular accident Please call patient to schedule. Referring Physician: Masoud Reddy Internal Medicine, Encounter Date: 07/28/2025 Results Created Date Observation Date Name Description Value Unit Range Abnormal Flag Note LastModifiedBy Organization Detail LastModifiedTime 07/11/2007/11/2025 demarcus donnelly/trent rai tic resul t No observ ation record ed. [place] [id number] [facility] [address], [place], [address], 07/11/2025 15:20:10 07/14/20 25 07/12/2025 imagi ng/di agnos tic resul t No observ ation record ed. [address], [place], [address], 07/14/2025 12:23:23 07/14/20 25 07/12/2025 imagi ng/di agnos tic resul t No observ ation record ed. [address], [place], [address], 07/14/2025 12:25:09 07/15/20 25 07/15/2025 MRI, brain , w/o contr ast No observ ation record ed. [facility] [address], [place], [address], 07/15/2025 17:11:44 08/14/20 25 08/14/2025 imagi ng/di agnos tic resul t No observ ation record ed. [address], [place], [address], 08/14/2025 19:51:20 08/14/20 25 08/14/2025 imagi ng/di agnos tic resul t No observ ation record ed. [address], [place], [address], 08/14/2025 19:55:25 08/14/20 25 08/14/2025 imagi ng/di agnos tic resul t No observ ation record ed. [address], [place], [address], 08/14/2025 19:56:51 Result Notes None recorded. Problems Name Problem SNOMED Code Status Onset Date Resolution Date Notes Provider Name and Address Organization Details Recorded Time Gastroesop hageal reflux disease 569142292 Active Loreta Haque MD [address] [facility] [address], [place], [address] , [facility] [employer] [facility] 5 08:34:21 Vitamin D deficiency 71196533 Active Loreta Haque MD [address], [address], [place], [address] , [employer] [facility] [employer] [facility] 5 08:33:45 Hypothyroi dism 10847833 Active Loreta Haque MD [address], [place], [address] , [facility] [employer] [facility] 5 08:34:16 Long-term current use of anticoagul ant 714217039 Active 2020 Loreta Haque MD [address], [place], [address] , [facility] [employer] [facility] [employer] [facility] 5 08:34:04 Osteoporos is 74823246 Active 2020 DEXA Loreta Haque MD [address], [address], [place], [address] , [facility] [employer] [facility] 5 08:33:47 Essential hypertensi on 46120834 Active 2022 Susana Kimbrough, A null, [place] [employer] [facility] [employer] [facility] 5 12:03:43 Moderate recurrent major depression 28643349 Active 2023 Loreta Haque MD [address], [place], [address] , [facility] [employer] [facility] 5 08:33:58 Nonischemi c congestive cardiomyop athy 453007063262 Active 2023 Loreta Haque MD [address], [place], [address] , [facility] [employer] [facility] 5 08:33:55 Hiatal hernia 08013528 Active 2023 Loreta Haque MD [address], [place], [address] , [facility] [employer] [facility] [employer] [facility] 5 08:34:19 Hyperlipid emia 25585966 Active 2023 Loreta Haque MD [address], [place], [address] , [facility] [employer] [facility] 5 08:34:18 Atrial fibrillati on 50315705 Active 2023 Loreta Haque MD [address], [place], [address] , [facility] - [facility] 5 08:34:34 Chronic kidney disease 370075738 Active 2024 Loreta Haque MD [address], [place], [address] , [facility] 5 08:34:30 Mild chronic obstructiv e pulmonary disease 197852751 Active 2024 Loreta Haque MD [address], [place], [address] , [facility] - [facility] 5 08:34:01 Nasal sinus problem 940376868 Active 2024 Susana Kimbrough, [facility] null, [facility] 5 15:01:35 Serum vitamin B12 below reference range 248273402 Active 2024 Masoud holden MD [address], [address], [place], [address] , [facility] 5 14:33:29 Persistent insomnia 431448485 Active 2024 Masoud holden MD [address], [address], [place], [address] , [facility] 5 14:33:29 Abdominal pain 17143455 Active 2024 Masoud holden MD [address], [place], [address] , [facility] 5 14:33:29 Mass of neck 027164114 Active 2024 Masoud holden MD [address], [place], [address] , [facility] 5 14:33:29 Dizziness 517425115 Active 2024 Masoud holden MD [address], [place], [address] , [employer] [facility] 14:33:29 Multiple nodules of lung 991253461 Active 2024 Masoud holden MD [address], [place], [address] , [employer] [facility] [employer] [facility] 5 14:33:29 Dental caries 04804649 Active 2024 Masoud holden MD [address], [place], [address] , [employer] 14:33:30 Pain of right hip joint 8520237075960 02 Active 2024 Masoud holden MD [address], [place], [address] , [employer] [facility] [employer] [facility] 14:33:30 Tear of skin 621130323 Active 2024 Masoud holden MD [address], [place], [address] , [employer] [facility] [employer] [facility] 14:33:30 Hyperkalem ia 80782688 Active 2024 aMsoud holden MD [address], [place], [address] , [employer] [facility] [employer] [facility] 5 14:33:30 Eruption 034468167 Active 2024 Masoud holden MD [address], [place], [address] , [employer] [facility] [employer] [facility] 5 14:33:30 Nausea 633225205 Active 2024 Masoud holden MD [address], [place], [address] , [employer] [facility] 5 14:33:30 Cerebrovas cular accident 868671654 Active 2024 Susana Kimbrough RMZurdo null, [facility] 5 15:42:56 Urinary symptoms 263721396 Active 2024 Lorraine Morris MA null, [facility] 5 13:00:14 Posterior rhinorrhea 17155057 Active 2024 Susana Kimbrough RMZurdo null, [facility] 5 15:00:02 Acute respirator y failure 01096568 Active 2024 PEREZ Hills null, [facility] 5 12:29:17 Seasonal allergy 499641801 Active 2024 SusanaPEREZ Centeno null, [facility] 5 12:18:00 Cloudy urine 7643062 Active 2024 Ofelia Vazquez NP [address] [facility], [address], [address] , [facility] 5 16:52:12 Adult failure to thrive syndrome 551537601 Active 2024 Masoud holden MD [address] [facility] [facility] [address], [place], [address] , [facility] 5 17:46:40 Tardive dyskinesia 424243186 Active 2024 Masoud holden MD [address] 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 Procedures Surgical History Date Name Laterality Status Provider Name and Address Organization Details Recorded Time 07/28/20 25 Transitional_Care _Management completed Masoud Reddy MD [address] [facility], [place], [address], [employer] [facility] 07/28/2025 17:16:04 05/07/20 25 Transitional_Care _Management completed Masoud Reddy MD [address] [facility], [address], [place], [address], [employer] 05/07/2025 12:00:21 04/17/20 24 Chronic care management services completed Jaclyn Huizar [employer] [facility] [employer] 06/03/2024 19:11:19 02/26/20 24 Chronic care management services completed Ara Ozuna RN [place] [employer] [facility] [employer] [facility] 02/26/2024 14:23:59 01/16/20 24 Chronic care management services completed Ara Ozuna RN [place] [employer] [facility] [employer] [facility] 01/16/2024 18:07:23 12/06/19 24 Medicare Wellness CPT Code, subsequent completed PEREZ Hills [employer] [facility] [employer] 12/06/2023 14:03:15 04/10/20 23 Transitional_Care _Management completed THI Gatica [address], [place], [address], [employer] [facility] [employer] 04/11/2023 08:40:38 Rotator cuff surgery completed Lorraine Morris MA [employer] [facility] [employer] 01/08/2024 11:34:43 operation on intestine completed Lorraine Morris MA [employer] [facility] [employer] 01/08/2024 11:35:04 Tonsillectomy completed Lorraine Morris MA [employer] [facility] [employer] 01/08/2024 11:35:14 Tubal Ligation completed [facility] 01/08/2024 11:37:01 Imaging Results None recorded. Procedure Notes None recorded. Medical Equipment None Reported. Allergies Allergen ID Allergen Name Allergen Category Reaction Reaction Severity Criticality Documentation Date Start Date Code Code System Note Provider Name and Address Organization Details Recorded Time 19102 tramadol medicatio n Not available Not available Not available 11/02/2022 26437 RxNorm Vomit ing Not Available [facility] 3 09:34:02 85142 Non-stero idal anti-infl ammatory agent (substanc e) medicatio n hives moderate Not available 11/02/2022 42611 5008 SNOMED Also CKD Not Available [facility] 3 09:34:02 64403 Lamictal medicatio n rash Not available Not available 11/02/2022 63713 2 RxNorm Not Available [facility] 3 09:34:02 21004 codeine medicatio n nausea Not available Not available 11/18/2022 2670 RxNorm MIKE Linder [address] [facility], [place] [address], [place], [address] [place], [place] [address] 3 10:59:48 98939 lorazepam medicatio n other Not available Not available 07/22/20252016 6470 RxNorm EMOTI ONAL Not Available andre - External Data Service - prod 5 12:42:05 44406 amoxicill in medicatio n diarrhea Not available low 07/27/20252022 723 RxNorm Not Available andre - External Data Service - prod 5 17:43:59 08273 hydroxyzi ne Not available Not available Not available Not available 07/27/2025 5553 RxNorm Not Available andre - External Data Service - prod 5 17:43:59 13466 naproxen medicatio n Not available Not available Not available 07/27/2025 7258 RxNorm Not Available andre - External Data Service - prod 5 17:43:59 24332 sumatript an medicatio n Not available Not available Not available 07/27/2025 53510 RxNorm unrec ogniz ed react ion (text : Unkno wn, code: [id number]) (from exter [facility] e) Not Available andre - External Data Service - prod 17:43:59 95461 tolmetin medicatio n other Not available low 07/27/20252016 97843 RxNorm STOMA CH UPSET Not Available andre - External Data Service - prod 17:43:59 60010 lamotrigi ne medicatio n Not available Not available Not available 07/27/20252023 44854 RxNorm Not Available andre - External Data Service - prod 17:44:28 Medications Name Sig Start Date Stop [...] e 50 mcg/actua tion nasal spray,[facility] [place] 1 spray every day by intranas al [...] Not Available Not Available Not Available Fluvirin 0907-1548 45 mcg (15 mcg x 3)/0.5 mL [...] oral route. 01/[address] Cary lujan 10/04/20 24 Not Available Not Available Not Available Vraylar 1.5 mg capsule Take 1 capsule every day by oral route. 04/21 completed Not Available Not Available Not Available Fluzone High-Dose 3262-2534 (PF) 180 mcg/0.5 mL intramusc ular syringe 09/06 completed Not Available Not Available Not Available Fluzone High-Dose 5680-1045 (PF) 180 mcg/0.5 mL intramusc ular syringe 05/12 completed Not Available Not Available Not Available Shingrix (PF) 50 mcg/0.5 mL intramusc ular suspensio n, kit 05/12 completed Not Available Not Available Not Available Fluzone High-Dose 6217-3480 (PF) 180 mcg/0.5 mL intramusc ular syringe 05/12 completed Not Available Not Available Not Available Fluzone High-Dose (PF) 180 mcg/0.5 mL intramusc ular syringe active Not Available Not Available Not Available Fluzone High-Dose Quad (PF) 240 mcg/0.7 mL IM syringe ADM 0.7ML IM UTD active Not Available Not Available No t Available Vitals Date Recorded Body height Body temperature Pain severity - 0-10 verbal numeric rating [Score] - Reported Heart rate Oxygen saturation Systolic And Diastolic Provider Name and Address Organization Details Last Updated DateTime 5 167.64 cm 98.6 [degF] 6 95 /min 67 % 130/78 mm[Hg] Lorraine Morris MA [place] [facility] [employer] 5 14:24:07 Social History Question Answer Notes LastModified by Organization Details LastModified Time Tobacco Smoking Status Never Smoker Not Available [employer] 11/02/2022 09:26:39 Do You Have An Advance Directive? Yes [email or web address] Information not available 04/17/2024 Are You Blind Or Do You Have Difficulty Seeing? No [email or web address] Information not available 12/06/2023 Is Blood Transfusion Acceptable In An Emergency? Yes [email or web address] Information not available 01/16/2024 What Is Your Level Of Caffeine Consumption? Heavy 3 Coca Cola's Per Day [email or web address] Information not available 01/16/2024 In The 14 Days Before Symptom Onset, Have You Had Close Contact With A Laboratory-tania [email or web address] While That Case Was Ill? No MIGRATION.030 [id number] Information not available 11/02/2022 In The 14 Days Before Symptom Onset, Have You Had Close Contact With A Person Who Is Under Investigation For COVID-19 While That Person Was Ill? No MIGRATION.030 [id number] Information not available 11/02/2022 Are You Deaf Or Do You Have Serious Difficulty Hearing? No Information not available 11/06/2023 What Type Of Diet Are You Following? REGULAR MIGRATION.030 [id number] Information not available 11/02/2022 What Is The Highest Grade Or Level Of School You Have Completed Or The Highest Degree You Have Received? DQ10244-2 MIGRATION.300026 Information not available 11/02/2022 Do You Have An Electrostatic Air Filter? No Information not available 01/01/2025 Have There Been Any Changes To Your Family Or Social Situation? Yes Lives With Roomate [email or web address] Information not available 01/16/2024 What Is The Fluoride Status Of Your Home? Unknown Information not available 11/06/2023 Are There Any Guns Present In Your Home? No MIGRATION.030 [id number] Information not available 11/02/2022 Do You Have A Humidifier? No Information not available 01/01/2025 Do You Use Insect Repellent Routinely? No MIGRATION.030 [id number] Information not available 11/02/2022 Where Do You Live? SingleLevelHouse Information not available 12/06/2023 Are You Able To Care For Yourself? No [email or web address] Information not available 12/06/2023 Are You Blind Or Do Yo Have Difficulty Seeing? No [email or web address] Information not available 12/06/2023 Are You Deaf Or Do You Have Serious Difficulty Hearing? No [email or web address] Information not available 12/06/2023 Live Alone Of With Others? With Others Information not available 12/06/2023 Do You Have A Medical Power Of House Furnishings Supervisor? Yes Brother-Jone Moore [email or web address] Information not available 01/16/2024 Do You Have Moisture Problems In Your Home? No Information not available 01/01/2025 What Was The Date Of Your Most Recent Tobacco Screening? 07/28/2025 [email or web address] Information not available 07/28/2025 How Many Children Do You Have? 1 [email or web address] Information not available 01/16/2024 Do You Have Any Pets? Yes 2 Cats [email or web address] Information not available 01/16/2024 What Is Your Relationship Status? MIGRATION.0301 [id number] Information not available 11/02/2022 Do You Use Your Seat Belt Or Car Seat Routinely? Yes MIGRATION.0301 [id number] Information not available 11/02/2022 Are You Sexually Active? No [email or web address] Information not available 01/16/2024 Do You Have Smoke And Carbon Monoxide Detectors In Your Home? Yes MIGRATION.0301 [id number] Information not available 11/02/2022 Are You Passively Exposed To Smoke? Yes Information not available 11/06/2023 Are There Any Smokers In Your House? Yes Information not available 11/06/2023 Do You Participate In Social Media? No MIGRATION.0301 [id number] Information not available 11/02/2022 Do You Use Sunscreen Routinely? No MIGRATION.0301 [id number] Information not available 11/02/2022 Has Tobacco Cessation Counseling Been Provided? No N/a Information not available 11/06/2023 Have You Recently Traveled Abroad? No MIGRATION.0301 [id number] Information not available 11/02/2022 Do You Have Difficulty Walking Or Climbing Stairs? Yes Uses A Walker [email or web address] Information not available 01/16/2024 Are You Currently In School? No MIGRATION.0301 [id number] Information not available 11/02/2022 Do You Have Any Dietary Restrictions? No MIGRATION.0301 [id number] Information not available 11/02/2022 Sex: Unknown Functional Status Question Answer Note LastModified by Organizat ion Details LastModified Time Do you use any illicit or recreational drugs? No MIGRATION.61709 30844 Information not available 11/02/2022 Do you or have you ever used any other forms of tobacco or nicotine? No MIGRATION.28817 37006 Information not available 11/02/2022 What is your level of alcohol consumption? None MIGRATION.80752 45067 Information not available 11/02/2022 Are you currently employed? No Information not available 01/16/2024 Have you been exposed to chemicals or toxins? not that aware of Information not available 01/01/2025 Do you have transportation difficulties? No [email or web address] Information not available 12/06/2023 Are you able to walk independently without assistance or assistive devices? YESASSIST wheeled walker Information not available 11/06/2023 Do you have difficulty doing errands alone? Yes [email or web address] Information not available 12/06/2023 Are you able to care for yourself independently? No has caregiver that comes 9 hours/week [email or web address] Information not available 01/16/2024 Do you have difficulty dressing, bathing, grooming, or toileting? No Information not available 11/06/2023 What is your exercise level? Occasional started doing exercises in chair 1 week ago & walks around house [email or web address] Information not available 01/16/2024 Mental Status Question Answer Note LastModified by Organizat ion Details LastModified Time Do you feel stressed (tense, restless, nervous, or anxious, or unable to sleep at night)? [id number] pt's s.o has chronic health problems and is reluctant to going to get care. This is making pt nervous. [email or web address] Information not available 02/26/2024 Do you have difficulty concentrating, remembering or making decisions? No [email or web address] Information not available 01/16/2024 Family History Relationship Description Onset Age of this Age Resolved Age Notes LastModified by Organization Details LastModified Time Mother Diabetes mellitus [id number] Not available 11/02/2022 09:27:03 Mother Heart disease [id number] Not available 11/02/2022 09:27:03 Father Hypertensive disorder [id number] Not available 11/02/2022 09:27:03 Father Cerebrovascu lar [...] HAVE YOU BEEN HOSPITALIZED OR SEEN IN [facility] IN THE PAST YEAR ? Y Brain [...] high-dose, trivalent, PF 5 completed PEREZ Hills, [facility] [employer] [facility] 08/08/2025 16:02:44 Influenza, split virus, quadrivalent, preservative 8 completed Jaclyn Huizar [employer] [facility] [employer] [facility] 02/28/2023 16:18:39 Influenza, split virus, quadrivalent, preservative 9 completed Jaclyn Huizar null, [facility] [employer] [facility] 02/28/2023 16:18:39 zoster recombinant 8 completed Jaclyn Huizar null, [facility] [employer] [facility] 02/28/2023 16:18:39 Influenza, high-dose, quadrivalent, PF 0 completed Jaclyn Huizar null, [facility] [employer] [facility] 02/28/2023 16:18:39 Influenza, high-dose, quadrivalent, PF 2 completed [facility] [employer] [facility] 02/28/2023 16:18:39 Influenza, high-dose, quadrivalent, PF 1 [facility] 16:18:39 COVID-19, mRNA, LNP-S, PF, 100 mcg/0.5mL dose or 50 mcg/0.25mL dose 1 [facility] [employer] [facility] 02/28/2023 16:18:39 COVID-19, mRNA, LNP-S, PF, 100 mcg/0.5mL dose or 50 mcg/0.25mL dose 1 [facility] 02/28/2023 16:18:39 COVID-19, mRNA, LNP-S, PF, 100 mcg/0.5mL dose or 50 mcg/0.25mL dose 2 completed [facility] 02/28/2023 16:18:39 COVID-19, mRNA, LNP-S, PF, 100 mcg/0.5mL dose or 50 mcg/0.25mL dose 1 [facility] 02/28/2023 16:18:39 COVID-19, mRNA, LNP-S, bivalent, PF, 30 mcg/0.3 mL dose 2 completed Jaclyn [facility]upendra [facility] [employer] [facility] 02/28/2023 16:18:39 pneumococcal polysaccharide PPV23 6 completed Jaclyn [place] [employer] [facility] 02/28/2023 16:18:39 Pneumococcal conjugate PCV 13 8 completed [facility] 02/28/2023 16:18:39 Influenza, high-dose, trivalent, PF 6 completed Jaclyn [place] [facility] 02/28/2023 16:18:39 Influenza, high-dose, trivalent, PF 9 completed Jaclyn Huizar null, [facility] 02/28/2023 16:18:39 Influenza, high-dose, trivalent, PF 7 completed Jaclyn Huizar null, [facility] 02/28/2023 16:18:39 Influenza, split virus, trivalent, preservative 4 completed [facility]/28/2023 16:18:39 Influenza, split virus, trivalent, PF 5 completed Jaclyn Huizar null, [facility] 02/28/2023 16:18:39 Influenza, high-dose, quadrivalent, PF 3 completed Susana Kimbrough RMA [facility] 09/16/2024 14:07:35 COVID-19, mRNA, LNP-S, PF, 50 mcg/0.5 mL 4 completed Susana Kimbrough RMZurdo [facility] 09/16/2024 14:07:35 COVID-19, mRNA, LNP-S, PF, 50 mcg/0.5 mL 3 completed [facility]imbrough RMA [facility] 09/16/2024 14:07:35 Influenza, high-dose, trivalent, PF 4 completed [facility]imbrough [facility] 09/16/2024 14:07:35 zoster recombinant 8 completed Not Available [facility] 07/28/2025 14:01:40 Past Encounters Encounter ID Performer Location Encounter Start Date Encounter Closed Date Diagnosis/Indication Diagnosis SNOMED-CT Code Diagnosis ICD10 Code Diagnosis IMO Codes Diagnosis Note [id number] Masoud holden MD [facility] [address] [place] [address] 07/28/2025 13:59:44 07/28/2025 15:18:47 Screening - NAD 367567844 Z13.9 C-scope: Get this if not done, [...] understand ing of the above Essential hypertension 80001817 I10 On amiodarone 200mg daily, understand s the side effects for this medication , including thyroid abnormalit iesOn coreg 25mg daily Dr Huitron n entresto 24/[address] Ceja 06/07/2024 , not taking thisOn losartan 50mg daily as per Dr Ceja, this was d/c 04/25/2025 [facility] tOn lasixOn spironolac tone 25mg dailyOn K Sees Dr Gannon Hypothyroidism 76004686 E03.9 On Unithroid 150mcgs daily,misael wedGet labs Persistent insomnia 1919 62718 G47.09 On trazodone 150mg 1.[address] Amaya Moderate r ecurrent major depression 95759224 F33.1 On clonazepam 0.5mg tidOn venlafaxin e ER 37.5mg dailyNow on mirtrazpin e 15mg at bedtimeOn vraylar 1.5m dailySees Dr Amaya, not suicidal or homicidal Nonischemi c congestive cardiomyopathy 1210304366 [address] Ceja cardiology , last OV 08/10/2023 , f/u in 3 monthsS/p life vest /p ICD in [place] BapStarted on entresto, amiodarone On amiodarone 200mg dailyOn lasix 20mg 1/2 tabOn coreg 12.5mg bidOn losartan 50mg dailyOn hydralazin e 10mg bidNot on entresto 49-51mg bidOn spironolac tone 25mg dailyOn coumadin D/c from [facility] 01/03/2024 for SOB, acute respirator y [...] INR, since the INR machine not in [employer] office she will come in tomorrow to [facility] in [place] OV 01/13/2025 : Get INR as scheduled, will come to [facility] on 01/15/2025 OV 04/21/2025 :[facility] d/c 03/31/2025 , treated for CHF [...] hospitalIN R also ordered OV 07/28/2024 :D/c [facility] 07/17/2025 and as per d/c note INR was subtherape utic and given coumadin Gynecologi c examination 30949699 Z01.419 Serum betty min B12 below reference range 677233082 R79.89 On b12, get labs Abdominal pain 19691495 R10.[address] abd donePrior hx of surgery to the abdomen, she is not very sure why she had to have surgeryMay need to see GI CT A/P: 12/13/2023 : Hiatal hernia, needs to see [facility]: To get EGD, take PPI an dfamotidin e, take OTC chiqatn162 mg PRN for bloating, may need a course of xifaxan EGD 01/10/2024 : Dr Fairchild Hiatal hernia [id number] K 44.9 CT A/P: 12/13/2023 : Hiatal hernia, needs to see GI S/p EGD 01/10/2024 Dizziness 461974977 R42 [facility] Chest 12/08/2023 S/p CTA 12/08/2023 Lung nodules noted Multiple n odules of lung 521755878 R91.8 [facility] NegDr Shabnam 03/20/2024 Dr Haque 01/22/2025 next aptDr Shabnam 03/13/2025 , next 03/12/[address] Haque Mass of neck 414781290 R 22.1 Fullness noted in the yordy supraclavi cular areaS/P CTA done 12/08/2023 Get US neck and she now will see Dr Gannon her cardiologi st US neck 04/22/2024 : Benign Dental caries 09779344 K 02.9 Dental caries noted on the [...] well Pain of ri ght hip joint [id number] 72420 M25.551 S/p fallSeen in the UC, treated with gabapentin and flexerill, not taking at this timeGet on MDP, get Xrays and refer to Dr Prince as she does not want to be treated in [facility] OV 10/14/2024 :Xr hip: 09/16/2024 : Neg Tear of skin 719239925 T 14.8XXA L forearmHea ling, no bleeding noted, no swelling or redness, advised to keep area clean and dry Chronic ki dney disease 076078495 N18.[address] Dela Cruz has given her the zofran Hyperkalemia 93781309 E8 7.5 Repeat the CMP Nausea 833460226 R11.0 Is on chronic use of zofran, [...] nauseaUA: Cloudy and orange with Addendum: 05/08/2025 :[facility] 05/07/2025 , d/c with diagnosis of UTI Screening mammography 24 509420 Z12.31 69823452 Transition of care 89159 51618 105 Z75.8 History of cerebrovascular accident 774050867 Z86.73 [id number] OV 05/07/2025 :As per D/c summary from [facility] could not get a MRI and as per patient now is to get a MRI at [facility] but this has not yet [...] also placed with the ER MD at [facility], he seemed reluctant to accept this patient stating that 'we do not do MRI with pacemaker and she would need to be transferre d', discussed with the ER MD that it would be his prerogativ e to decide if the patient needs further care in another facility, then the ER MD stated that she should be sent via hand marker, explained to him that the [facility] had initially refused but now will do so OV 07/28/2025 :MRI 07/15/2025 : Arachnoid cystWill refer to neurology Adult fail ure to thrive syndrome 375753582 R62.7 [id number] D/c from [facility] 07/17/2025 to home with HHGet labs and she should keep all her apts especially with nephrology and her cardiologi st Tardive dyskinesia 96634 9007 G24.01 86661 Does have lip smacking and finger rollingShe [...] Ozuna RN Not Available 01/16/2024 22: 18:57 Payers Encounter Date Sequence Insurance Name Policy Number Policy Briceno Covered Member ID Briceno Member ID Guarantor Name 07/28/2025 1 [facility] - MEDICARE COMPLETE - CHOICE PLAN 2 (MEDICARE REPLACEMENT REGIONAL PPO) [id number] Yi Martino [id number] Yi Martino Notes Date Note Type Note Provider Name and Address Organization Details Recorded Time 07/28/2025 text/html OV 11/06/2023: Here to establish carePast Hx:HTNCardiomyopat hyInsomniaDepressi onHypothyroidism Here to discuss above and get labs, [...] is doing well, did get her INR reportedShfer is recently d/[facility] has also sustained a fall and now notes back pain, was seen in the UC and was told she had a contusion OV 05/07/2025:Here for f/u apt, s/p d/c from [facility] 04/25/2025Still has dizziness, states that yesterday when she was in her shower she got dizzy and fell backNow also has noted supra pubic abdominal pain, states that her pain is quite intense, also has nausea but no vomiting, she denies any fevers or chillsStates that she was to see cardiology but has not been contacted by Dr Gannon her information tech, she does state that in the last hospital stay her losartan was d/cShe also states that she did have a heart monitor put in and taken away upon d/c but was not told what her report wasAlysa also was told she may have a stroke but has not been contacted by [facility] for her MRI, as per her d/c note she did have a CT head but now needed a MRI but this could not be done as she has a pacemaker OV 07/28/2025: Here for her f/u apt, [facility] she states that she is doing well today but is bothered by her involuntary hand movements and mouth movements Masoud Reddy MD [address] [place] [address], [address], [place], [address], [place] [facility] 07/28/2025 17:40:38 OBGyn Episode No OBEpisode recorded.
--- OUTSIDE RECORDS SUMMARY | 2025-08-14 19:36 | XMS_ITS | Clinical Summary ---
Author Organization [facility] Address [address] [place] [address] Care Team Providers Care Plant Utility Person Name Role Phone Unavailable Primary Care Provider [...] Documents on File Type Date Recorded Patient Wet Process Miller Head Assistant Expl anation Advance Directives and Living Will 01/14/2016 12:00 AM ADVANCED DIRECTIVES
[2025-08-14 19:44] LABS: Hematocrit 39.6 % (37.0-47.0); Hemoglobin 12.1 g/dL (12.0-15.0); Immature Granulocyte Percent A 0.2 % (0-0.5); Lymphocytes Absolute Auto 1.64 K/mm3 (0.9-3.2); Mean Corpuscular HGB Conc 30.6 g/dl (32-36); Mean Corpuscular Hemoglobin 30.6 pg (26-34); Mean Corpuscular Volume 100.0 fl (80-100); Nucleated Red Blood Cells Absolute Auto 0.000 K/mm3 (0.0-0.012); Nucleated Red Blood Cells Perc 0.0 % (0.0-0.2); Platelet Count Result 221 k/mm3 (150-375); Red Blood Count 3.96 M/mm3 (4.2-5.4); White Blood Count 5.9 K/mm3 (4.5-10.0)
[2025-08-14 20:00] LABS: Alanine Aminotransferase 20 U/L (6-35); Albumin Level 4.2 g/dL (3.5-5.1); Alkaline Phosphatase 60 U/L (38-126); Anion Gap 5 mmol/L (4-12); Aspartate Amino Transferase 28 U/L (14-36); Bilirubin,Total 0.5 mg/dL (0.2-1.3); Blood Urea Nitrogen 10 mg/dL (7-17); Calcium 9.3 mg/dL (8.4-10.2); Carbon Dioxide 25 mmol/L (22-30); Chloride 106 mmol/L (98-107); Estimated CRCL calculation 36 ml/min; Estimated Glomerular Filt Rate 52; Glucose 87 mg/dL (65-110); Potassium 4.5 mmol/L (3.4-5.0); Sodium 136 mmol/L (137-145); Total Protein 8.0 g/dL (6.3-8.2)
--- NOTE | 2025-08-14 20:55 | ED.GENADULT ---
HPI - General Adult General Chief complaint: Extremity Problem,Nontraumatic Stated complaint: cant walk after taking Ropinirole Time Seen by Provider: 08/14/25 17:18 History of Present Illness HPI narrative: 79-year-old female presents ER with concerns for new onset weakness. Patient states she took a new prescription of ropinirole last night and then was unable to move her legs to get out of bed this morning as they felt too weak. She reports that she took ropinirole last around 5 years ago and did not have the same reaction. She denies any recent trauma or other new medications. Denies dizziness, chest pain, headache, numbness /tingling saddle anesthesia, or bowel/bladder retention/incontinence. Related Data Home Medications ?Medication ?Instructions ?Recorded ?Confirmed ?Last Taken ?Type trazodone 150 mg tablet 150 mg PO HS 03/22/21 07/15/25 07/14/25 History venlafaxine 37.5 mg 37.5 mg PO DAILY 08/22/22 07/15/25 07/14/25 History capsule,extended release 24 hr (Effexor XR) rosuvastatin 40 mg tablet 40 mg PO DAILY 12/27/23 07/15/25 07/14/25 History amiodarone 200 mg tablet 200 mg PO DAILY 01/02/24 07/15/25 07/14/25 History clonazepam 0.5 mg tablet 0.5 mg PO TID 01/02/24 07/15/25 07/14/25 History levothyroxine 150 mcg tablet 150 mcg PO DAILY 01/02/24 07/15/25 07/14/25 History carvedilol 12.5 mg tablet 25 mg PO DAILY 12/24/24 07/15/25 07/14/25 History cyanocobalamin (vitamin B-12) 1,000 mcg subcut MONTHLY 03/25/25 07/15/25 06/05/25 History 1,000 mcg/mL injection solution donepezil 10 mg tablet 10 mg PO HS 03/25/25 07/15/25 07/14/25 History spironolactone 25 mg tablet 25 mg PO DAILY 03/25/25 07/15/25 07/14/25 History acetaminophen 650 mg 650 mg PO Q8H PRN pain 05/20/25 07/15/25 07/14/25 History tablet,extended release (8 Hour Pain Reliever) losartan 50 mg tablet 50 mg PO DAILY 07/11/25 07/15/25 07/14/25 History mirtazapine 15 mg disintegrating 15 mg PO HS 07/11/25 07/15/25 07/14/25 History tablet Allergies Allergy/AdvReac Type Severity Reaction Status Date / Time codeine Allergy Unknown Unknown Verified 08/14/25 22:56 hydroxyzine Allergy Unknown Unknown Verified 08/14/25 22:56 lorazepam Allergy Unknown Unknown Verified 08/14/25 22:56 tramadol Allergy Unknown Unknown Verified 08/14/25 22:56 NSAIDS (Non-Steroidal AdvReac Unknown Nausea Verified 08/14/25 22:56 Anti-Inflamma sumatriptan AdvReac Unknown FELT Verified 08/14/25 22:56 HORRIBLE Review of Systems Review of Systems: All systems reviewed & are unremarkable except as noted in HPI and below PMFSH Past Medical History Medical History Dilated cardiomyopathy (2006) Combined systolic and diastolic congestive heart failure EF was 20 to 25% in March 2021. Echocardiogram 04/2025: EF 45-50%, basal inferior lateral and mid inferior hypokinesis, mildly increased left ventricular wall thickness, grade 2 diastolic dysfunction, severe mitral valve regurgitation (interestingly enough the patient's echo had a normal ejection fraction 60 65%, no diastolic dysfunction and and only mild mitral valve regurgitation???) Atrophic pancreas Neuropathy Hiatal hernia Chronic anticoagulation Transient ischemic attack (2017) Gastroesophageal reflux disease Chronic kidney disease Depression with anxiety Deep venous thrombosis Left bundle branch block Hyperlipidemia Hypertension Hypothyroidism Bipolar disorder Surgical History Surgical History History of bilateral knee replacement History of exploratory laparotomy (11/2014) With adhesiolysis Due to small-bowel obstruction. Dr. Grajeda History of colon resection History of bilateral knee arthroplasty History of repair of left rotator cuff History of bladder suspension procedure History of tonsillectomy History of cardiac catheterization (03/26/18) No evidence of coronary artery disease History of partial hysterectomy Family History Family History Father Hypertension Cerebrovascular accident DVT (deep venous thrombosis) Diabetes mellitus Mother Pulmonary fibrosis Diabetes mellitus CHF (congestive heart failure) Dementia Sibling Cardiomyopathy Diabetes mellitus Son Psychiatric disorder Alcoholism Other Family history of gout Social History Social History Social History: Surrogate medical decision maker: Man Linton, sibling. Code status: Full code. Smoking status: Never smoker Second hand tobacco smoke exposure: No Alcohol intake: never Substance use: never Substance use type: does not use Lack of Transportation: No Lack of Food: Never True Current Housing: I Have Housing Concerned About Future Housing: No Difficulty Paying Gas/Electric Bills: No Difficulty Paying for Meds: No Currently Unemployed: No Education: High School Diploma/GED Difficulty w/ Childcare or Family Care: No Living arrangements: with roommate(s) Additional living arrangements comments: . Has 1 child. Additional occupation/education comments: Retired from the [employer]. Spiritual care concerns: No Exam Narrative: GENERAL: No acute distress. HEAD: Normocephalic, atraumatic. EYES: PERRLA and EOMI. ENT: Nares clear, no rhinorrhea or epistaxis. Mucous membranes moist. Oropharynx without tonsillar hypertrophy exudate or other lesions. Bilateral TMs pearly aj non-bulging. Dryness. NECK: Supple. No adenopathy or masses. No carotid bruits or JVD CHEST: Clear to auscultation. No respiratory distress. No wheezes rales or rhonchi HEART: Regular rate and rhythm. No murmur heard. Normal peripheral pulses. ABDOMEN: Soft, nontender, nondistended, normal active bowel sounds. EXTREMITIES: Moves all extremities. Equal strength in all extremities. Good ROM. SKIN: Warm, dry, no rash. NEURO: No focal deficits. Alert and oriented x3. PSYCH: Normal mood and affect Course Vital Signs Vital signs: Vital Signs Temperature 97.8 F 08/14/25 17:07 Pulse Rate 61 08/14/25 17:07 Respiratory Rate 18 08/14/25 17:07 Blood Pressure 142/63 H 08/14/25 17:07 Pulse Oximetry 100 08/14/25 17:07 Oxygen Delivery Room Air 08/14/25 17:07 Temperature 97.8 F 08/14/25 17:07 Pulse Rate 61 08/14/25 17:07 Respiratory Rate 18 08/14/25 17:07 Blood Pressure 142/63 H 08/14/25 17:07 Pulse Oximetry 100 08/14/25 17:07 Oxygen Delivery Room Air 08/14/25 17:07 [facility] Narrative Medical decision making narrative: 79-year-old female presents ER with concerns for new onset weakness. Patient states she took a new prescription of ropinirole last night and then was unable to move her legs to get out of bed this morning as they felt too weak. She reports that she took ropinirole last around 5 years ago and did not have the same reaction. She denies any recent trauma or other new medications. Denies dizziness, chest pain, headache, numbness /tingling saddle anesthesia, or bowel/bladder retention/incontinence. Upon my initial assessment patient appears nontoxic with stable vitals. Involuntary lip-smacking movements noted which patient states is normal for her. Labs demonstrate no concerning abnormalities other than mild signs of a UTI. Upon my reassessment patient reports a significant history of UTIs and was hospitalized last month for an acute UTI with weakness. Patient reports no symptoms; however, ordered further imaging as today's presentation is similar to her last hospitalization. All imaging demonstrates no acute abnormalities. Will plan to treat outpatient due to her history and age. EKG without acute ischemic changes. Patient ambulated with a walker supported by nursing staff well. Administered half a liter of fluids as she appeared dry. The patient is appropriate for outpatient treatment and follow-up. Given reasons to return. Differential Diagnosis Differential Diagnosis: Differential diagnosis for weakness being considered include electrolyte disturbances, anemia, infection, medication effect, FISHER CRAB disease, myopathies, endocrine dyscrasias, acute WI, hypoglycemia, rhabdomyolysis, sepsis, dehydration. Medical Records I have reviewed the following patient records and this information was taken into consideration when formulating the assessment and plan.: previous labs, previous ER visits and previous hospitalizations Lab Data [facility] Lab Attestation statement: I personally reviewed the patient's lab results. 08/14/25 19:39 08/14/25 19:39 Labs: Lab Results 08/14/25 08/14/25 Range/Units 19:39 21:19 WBC 5.9 (4.5-10.0) K/mm3 RBC 3.96 L (4.2-5.4) M/mm3 Hgb 12.1 (12.0-15.0) g/dL Hct 39.6 (37.0-47.0) % MCV 100.0 (80-100) fl MCH 30.6 (26-34) pg MCHC 30.6 L (32-36) g/dl RDW 14.5 (11.5-14.5) % Plt Count 221 (150-375) k/mm3 MPV 9.4 (7.4-10.4) fl Immature Gran % (Auto) 0.2 (0-0.5) % Neut % (Auto) 62.4 (45.5-73.1) % Lymph % (Auto) 27.9 (18.3-44.2) % Smyth % (Auto) 8.5 (2.6-8.5) % Eos % (Auto) 0.5 (0-4.4) % Baso % (Auto) 0.5 (0.2-1.2) % Lymph # (Auto) 1.64 (0.9-3.2) K/mm3 Smyth # (Auto) 0.5 (0.1-0.6) K/mm3 Eos # (Auto) 0.0 (0-0.3) K/mm3 Baso # (Auto) 0.0 (0.0-0.1) K/mm3 Abs Immat Gran (auto) 0.01 (0.00-0.031) K/mm3 Absolute Neuts (auto) 3.7 (1.3-6.7) K/mm3 Absolute Nucleated RBC 0.000 (0.0-0.012) K/mm3 Nucleated RBC % 0.0 (0.0-0.2) % Sodium 136 L (137-145) mmol/L Potassium 4.5 (3.4-5.0) mmol/L Chloride 106 (98-107) mmol/L Carbon Dioxide 25 (22-30) mmol/L Anion Gap 5 (4-12) mmol/L BUN 10 D (7-17) mg/dL Creatinine 1.02 H (0.7-1.0) mg/dL Estim Creat Clear Calc 36 ml/min Estimated GFR 52 L (59 - ) Glucose 87 (65-110) mg/dL Calcium 9.3 (8.4-10.2) mg/dL Total Bilirubin 0.5 (0.2-1.3) mg/dL AST 28 (14-36) U/L ALT 20 (6-35) U/L Alkaline Phosphatase 60 (38-126) U/L Total Protein 8.0 (6.3-8.2) g/dL Albumin 4.2 (3.5-5.1) g/dL Urine Color Dark yellow (Yellow) Urine Appearance Cloudy H (Clear) Urine pH 5.5 (5.0-9.0) Ur Specific Henderson 1.026 (1.001-1.035) Urine Protein 1+ H (Negative) mg/dL Urine Glucose (UA) Negative (Negative) mg/dL Urine Ketones Negative (Negative) mg/dL Ur Blood (Man) Negative (Negative) Urine Nitrate Negative (Negative) Urine Bilirubin Negative (Negative) Urine Urobilinogen 0.2 (<2.0) mg/dL Leukocyte Esterase Rfl 2+ H (Negative) MERVAT/UL Urine RBC 3-5 H (0-2) /hpf Urine WBC 51-100 H (0-3) /hpf Ur Squamous Epith Cells Occasional (Few) /hpf Urine Bacteria 3+ H /hpf Urine Casts 0-2 Imaging Data Attestation: I personally reviewed and interpreted this imaging study as follows: Radiologist's impression: ITS Impressions Head CT 08/14/25 18:45 IMPRESSION: 1. No acute findings. Extensive chronic changes similar to prior examination. Lumbar Spine CT 08/14/25 18:48 IMPRESSION: 1. Osteopenic bones. Severe multilevel degenerative disc disease. Chest X-Ray 08/14/25 18:52 IMPRESSION: 1. No acute findings. Other findings as mentioned above. ECG Data EKG #1: Attestation: I personally reviewed and interpreted this ECG as follows: ECG completion date: 08/14/25 ECG completion time: 18:54 normal rate and no acute changes Pacemaker function: normal pacer function Discharge Plan Discharge Clinical Impression: Acute UTI, Weakness Patient Disposition: Home Condition: Stable Instructions: Antibiotic Form, Urinary Tract Infection in Women (ED), Weakness (ED) Patient Language: Persian Prescriptions: No Action venlafaxine [Effexor XR] 37.5 mg capsule,extended release 24hr 37.5 mg PO DAILY trazodone 150 mg tablet 150 mg PO HS carvedilol 12.5 mg tablet 25 mg PO DAILY rosuvastatin 40 mg tablet 40 mg PO DAILY levothyroxine 150 mcg Tablet 150 mcg PO DAILY amiodarone 200 mg tablet 200 mg PO DAILY clonazepam 0.5 mg tablet 0.5 mg PO TID losartan 50 mg tablet 50 mg PO DAILY mirtazapine 15 mg tablet,disintegrating 15 mg PO HS Jardiance 10 mg Tablet 10 mg PO DAILY Qty: 30 0RF furosemide [Lasix] 20 mg tablet 10 mg PO DAILY Qty: 30 0RF warfarin 2 mg tablet 2 mg PO DAILY@1700 Qty: 30 0RF spironolactone 25 mg tablet 25 mg PO DAILY cyanocobalamin (vitamin B-12) 1,000 mcg/mL solution 1,000 mcg subcut MONTHLY donepezil 10 mg tablet 10 mg PO HS acetaminophen [8 Hour Pain Reliever] 650 mg tablet extended release 650 mg PO Q8H PRN (Reason: pain) loratadine 10 mg Tablet 10 mg PO QAM Qty: 30 0RF metoclopramide HCl 5 mg Tablet 5 mg PO ACHS Qty: 120 0RF hydralazine 10 mg tablet 10 mg PO BID Qty: 60 0RF ondansetron 4 mg tablet,disintegrating 8 mg PO Q12H PRN (Reason: nausea and vomiting) Qty: 30 0RF Follow-up/Referrals: Maureen,MD Masoud [Primary Care Provider, Unknown]
[2025-08-14 21:34] LABS: Add Urine Microscopic? YES; Appearance Urine Cloudy (Clear); Glucose Urine UA Negative (Negative); Leukocyte Esterase Ur 2+ LEU/UL (Negative); Nitrate Urine Negative (Negative); Non Pathogenic Casts 0-2; Specific Grav Ur 1.026 (1.001-1.035)
[2025-08-15 00:44] VITALS: BP 138/67; PULSE 64; RESP 19; O2SAT 99
[2025-08-15 00:47] VITALS: BP 138/67; PULSE 64; RESP 19; O2SAT 99
== END 2025-08-15 00:49 | disposition home or self-care (01) ==
PROVIDERS: PCP Internal Medicine
DX: N39.0 Urinary tract infection, site not specified (principal); R53.1 Weakness; I42.0 Dilated cardiomyopathy; I50.40 Unspecified combined systolic (congestive) and diastolic (congestive) heart failure; I13.0 Hypertensive heart and chronic kidney disease with heart failure and stage 1 through stage 4 chronic kidney disease, or unspecified chronic kidney disease; N18.9 Chronic kidney disease, unspecified; E78.5 Hyperlipidemia, unspecified; E03.9 Hypothyroidism, unspecified; K21.9 Gastro-esophageal reflux disease without esophagitis; K44.9 Diaphragmatic hernia without obstruction or gangrene; G62.9 Polyneuropathy, unspecified; F31.9 Bipolar disorder, unspecified; F41.8 Other specified anxiety disorders; Z96.653 Presence of artificial knee joint, bilateral; Z95.0 Presence of cardiac pacemaker; Z86.718 Personal history of other venous thrombosis and embolism; Z86.73 Personal history of transient ischemic attack (TIA), and cerebral infarction without residual deficits; Z90.49 Acquired absence of other specified parts of digestive tract; Z90.710 Acquired absence of both cervix and uterus; Z79.84 Long term (current) use of oral hypoglycemic drugs; Z79.01 Long term (current) use of anticoagulants; Z79.899 Other long term (current) drug therapy
CPT/HCPCS: 36415; 70450; 71046; 72131; 74177; 80053; 81001; 85025; 87086; 87186; 93005; 96360; 99284; J7040; Q9967